=== PATIENT | female | born 1955 | race Caucasian/White ===

== ENCOUNTER 2017-07-22 15:26 | Inpatient (IN) | payer OTHER ==
[2017-07-22] MEDS ORDERED: methylPREDNISolone SOD SUCCI 125 MG/2 ML VIAL IV STA (15:33)
[2017-07-22] MEDS ORDERED: MAGNESIUM SULFATE-D5W PMX 1 GM in DEXTROSE/WATER 1 100ML.BAG IVPB STA (15:33)
[2017-07-22] MEDS ORDERED: IPRATROPIUM-ALBUTEROL 3 ML NEB INHALATION STA (15:33)
--- NOTE | 2017-07-22 15:37 | ED ---
General Adult HPI - General Chief complaint: Shortness of Breath Stated complaint: Diff Breathing Time Seen by Provider: 07/22/17 15:30 Source: patient, family, EMS, RN notes reviewed Mode of arrival: EMS Limitations: physical limitation - History of Present Illness Initial comments: Patient is a pleasant 62-year-old female presenting to the emergency department with difficulty in breathing. Symptoms have progressed over the past couple of days. Patient has had a cough with some green sputum. No fevers. Patient does have a history of similar symptoms previously as a associated with COPD. No chest pain. Patient does feel fatigued. EMS provided one treatment in route. Patient does not feel too much better. - Related Data Home Medications Medication Instructions Recorded Confirmed Phenytoin Sodium Extended 100 mg PO TID 11/29/15 07/22/17 [Dilantin] Sertraline [Zoloft] 200 mg PO HS 11/29/15 07/22/17 Albuterol Inhaler [Ventolin Hfa 2 puff INHALATION RT-Q6H PRN 07/22/17 07/22/17 Inhaler] Folic Acid 1 mg PO DAILY 07/22/17 07/22/17 QUEtiapine FUMARATE 150 mg PO HS@199907/22/17 07/22/17 busPIRone HCL 15 mg PO BID 07/22/17 07/22/17 metFORMIN HCL [Glucophage] 1,000 mg PO BID 07/22/17 07/22/17 Allergies Allergy/AdvReac Type Severity Reaction Status Date / Time No Known Allergies Allergy Verified 07/22/17 16:06 Review of Systems ROS Statement: Those systems with pertinent positive or pertinent negative responses have been documented in the HPI. ROS Other: All systems not noted in ROS Statement are negative. Constitutional: Denies: fever Respiratory: Reports: cough, dyspnea Cardiovascular: Denies: chest pain Endocrine: Reports: fatigue Gastrointestinal: Denies: abdominal pain Genitourinary: Denies: dysuria Musculoskeletal: Denies: back pain Skin: Denies: rash Neurological: Denies: weakness Past Medical History Past Medical History: COPD, Seizure Disorder History of Any Multi-Drug Resistant Organisms: None Reported Past Surgical History: Hysterectomy Past Psychological History: Anxiety, Bipolar, Depression Smoking Status: Current every day smoker Past Alcohol Use History: None Reported Past Drug Use History: None Reported General Exam Limitations: physical limitation General appearance: alert, in distress, other (Patient's answers and one word answers.) Head exam: Present: atraumatic Eye exam: Present: normal appearance, PERRL ENT exam: Present: normal oropharynx Neck exam: Present: normal inspection Respiratory exam: Present: respiratory distress, wheezes, accessory muscle use, decreased breath sounds Cardiovascular Exam: Present: tachycardia GI/Abdominal exam: Present: soft. Absent: tenderness Extremities exam: Present: normal inspection. Absent: pedal edema, calf tenderness Neurological exam: Present: alert Psychiatric exam: Present: normal affect, normal mood Skin exam: Present: normal color Course Vital Signs 07/22/17 07/22/17 07/22/17 15:31 15:55 16:17 Temperature 96.8 F L Pulse Rate 116 H 102 H 99 Respiratory 30 H Rate Blood Pressure 161/86 O2 Sat by Pulse 98 Oximetry 07/22/17 16:48 Temperature 97.4 F L Pulse Rate 94 Respiratory 20 Rate Blood Pressure 129/74 O2 Sat by Pulse 99 Oximetry EKG Findings - EKG Comments: EKG Findings:: Sinus tachycardia 1:15. NV 150. QRS 136. QT 370. QTc 511. Left axis. Left bundle branch block. No acute ST change. Medical Decision Making - Medical Decision Making Patient reevaluated and resting comfortably in bed. Patient is significantly improved with BiPAP. Patient and family were updated on results and plan. Case was discussed in detail with Dr. Levy, who will admit his patient. He does request antibiotics and consult with Dr. Richardson. - Lab Data Result diagrams: 07/22/17 15:40 07/22/17 15:40 Lab Results 07/22/17 07/22/17 07/22/17 Range/Units 15:40 15:40 15:40 WBC 7.2 (3.8-10.6) k/uL RBC 3.55 L (3.80-5.40) m/uL Hgb 10.9 L (11.4-16.0) gm/dL Hct 35.4 (34.0-46.0) % MCV 99.7 (80.0-100.0) fL MCH 30.6 (25.0-35.0) pg MCHC 30.7 L (31.0-37.0) g/dL RDW 15.4 (11.5-15.5) % Plt Count 333 (150-450) k/uL Neutrophils % 53 % Lymphocytes % 34 % Monocytes % 5 % Eosinophils % 6 % Basophils % 1 % Neutrophils # 3.8 (1.3-7.7) k/uL Lymphocytes # 2.5 (1.0-4.8) k/uL Monocytes # 0.3 (0-1.0) k/uL Eosinophils # 0.4 (0-0.7) k/uL Basophils # 0.0 (0-0.2) k/uL Hypochromasia Slight Macrocytosis Slight PT (9.0-12.0) sec INR (<1.2) APTT (22.0-30.0) sec Sodium 144 (137-145) mmol/L Potassium 5.4 H (3.5-5.1) mmol/L Chloride 112 H (98-107) mmol/L Carbon Dioxide 16 L (22-30) mmol/L Anion Gap 16 mmol/L BUN 32 H (7-17) mg/dL Creatinine 2.40 H (0.52-1.04) mg/dL Est GFR (MDRD) Af Amer 25 (>60 ml/min/1.73 sqM) Est GFR (MDRD) Non-Af 20 (>60 ml/min/1.73 sqM) Glucose 151 H (74-99) mg/dL Calcium 8.9 (8.4-10.2) mg/dL Magnesium 1.7 (1.6-2.3) mg/dL Total Bilirubin 0.4 (0.2-1.3) mg/dL AST 15 (14-36) U/L ALT 16 (9-52) U/L Alkaline Phosphatase 211 H (38-126) U/L Total Creatine Kinase 75 (30-135) U/L CK-MB (CK-2) 2.4 (0.0-2.4) ng/mL CK-MB (CK-2) Rel Index 3.2 Troponin I 0.042 H* (0.000-0.034) ng/mL NT-Pro-B Natriuret Pep pg/mL Total Protein 7.3 (6.3-8.2) g/dL Albumin 4.1 (3.5-5.0) g/dL 07/22/17 07/22/17 Range/Units 15:40 15:40 WBC (3.8-10.6) k/uL RBC (3.80-5.40) m/uL Hgb (11.4-16.0) gm/dL Hct (34.0-46.0) % MCV (80.0-100.0) fL MCH (25.0-35.0) pg MCHC (31.0-37.0) g/dL RDW (11.5-15.5) % Plt Count (150-450) k/uL Neutrophils % % Lymphocytes % % Monocytes % % Eosinophils % % Basophils % % Neutrophils # (1.3-7.7) k/uL Lymphocytes # (1.0-4.8) k/uL Monocytes # (0-1.0) k/uL Eosinophils # (0-0.7) k/uL Basophils # (0-0.2) k/uL Hypochromasia Macrocytosis PT 10.9 (9.0-12.0) sec INR 1.1 (<1.2) APTT 22.3 (22.0-30.0) sec Sodium (137-145) mmol/L Potassium (3.5-5.1) mmol/L Chloride (98-107) mmol/L Carbon Dioxide (22-30) mmol/L Anion Gap mmol/L BUN (7-17) mg/dL Creatinine (0.52-1.04) mg/dL Est GFR (MDRD) Af Amer (>60 ml/min/1.73 sqM) Est GFR (MDRD) Non-Af (>60 ml/min/1.73 sqM) Glucose (74-99) mg/dL Calcium (8.4-10.2) mg/dL Magnesium (1.6-2.3) mg/dL Total Bilirubin (0.2-1.3) mg/dL AST (14-36) U/L ALT (9-52) U/L Alkaline Phosphatase (38-126) U/L Total Creatine Kinase (30-135) U/L CK-MB (CK-2) (0.0-2.4) ng/mL CK-MB (CK-2) Rel Index Troponin I (0.000-0.034) ng/mL NT-Pro-B Natriuret Pep 4890 pg/mL Total Protein (6.3-8.2) g/dL Albumin (3.5-5.0) g/dL - Radiology Data Radiology results: image reviewed (Chest x-ray shows no acute process) Critical Care Time Critical Care Time: Yes Total Critical Care Time: 32 Disposition Clinical Impression: Acute exacerbation of chronic obstructive airways disease, Acute respiratory failure Disposition: ADMITTED IP TO THIS [facility] Condition: Serious Referrals: Adal Mari Jr, [Primary Care Provider] - 1-2 days Decision Time: 16:59
[2017-07-22] MEDS ORDERED: ALBUTEROL NEB (CONC) 2.5 MG/0.5 ML INHALATION STA (15:46)
[2017-07-22 16:02] LABS: Basophils % (A) 1 %; Eosinophils # (A) 0.4 k/uL (0-0.7); Eosinophils % (A) 6 %; HCT 35.4 % (34.0-46.0); HGB 10.9 gm/dL (11.4-16.0); Hypochromasia Slight; Lymphocytes # (A) 2.5 k/uL (1.0-4.8); Lymphocytes % (A) 34 %; MCH 30.6 pg (25.0-35.0); MCHC 30.7 g/dL (31.0-37.0); MCV 99.7 fL (80.0-100.0); Macrocytosis Slight; Mean Platelet Volume 7.2; Monocytes # (A) 0.3 k/uL (0-1.0); Monocytes % (A) 5 %; Neutrophils # (A) 3.8 k/uL (1.3-7.7); Neutrophils % (A) 53 %; Platelet Count 333 k/uL (150-450); RBC 3.55 m/uL (3.80-5.40); RDW 15.4 % (11.5-15.5); WBC 7.2 k/uL (3.8-10.6)
[2017-07-22 16:14] LABS: Albumin 4.1 g/dL (3.5-5.0); Calcium 8.9 mg/dL (8.4-10.2); Potassium 5.4 mmol/L (3.5-5.1); Total Bilirubin 0.4 mg/dL (0.2-1.3); Total Protein 7.3 g/dL (6.3-8.2)
[2017-07-22 16:26] LABS: INR 1.1 (<1.2); Partial Thromboplastin Time 22.3 sec (22.0-30.0); Prothrombin Time 10.9 sec (9.0-12.0)
[2017-07-22 16:32] LABS: Creatine Kinase MB 2.4 ng/mL (0.0-2.4)
--- NOTE | 2017-07-22 16:37 | XR ---
EXAMINATION TYPE: XR chest 1V portable DATE OF EXAM: 07/22/2017 COMPARISON: 11/29/2015 INDICATION: Dyspnea TECHNIQUE: Single frontal view of the chest is obtained. There is some right rotation present. FINDINGS: The heart size is normal. The pulmonary vasculature is normal. The lungs are clear. Mediastinal silhouette, given the rotation appears stable. There is some subtle fullness of the right hilar region. This was present previously IMPRESSION: 1. No acute pulmonary process.
[2017-07-22 16:43] LABS: Troponin I 0.042 ng/mL (0.000-0.034)
[2017-07-22] MEDS ORDERED: LEVOFLOXACIN 750MG-D5W PMX 750 MG in DEXTROSE/WATER 1 150ML.BAG IVPB STA (17:00)
[2017-07-22] MEDS ORDERED: IPRATROPIUM-ALBUTEROL 3 ML NEB INHALATION PRN (17:01)
[2017-07-22] MEDS ORDERED: SODIUM CHLORIDE 0.9% 2,250 ML IV ONE (17:49)
[2017-07-22 19:14] LABS: Glucose,Whole Blood 107 mg/dL (75-99)
[2017-07-22] MEDS: IPRATROPIUM-ALBUTEROL 3 ML NEB INHALATION SCH (19:33)
[2017-07-22] MEDS: metFORMIN 500 MG TAB PO SCH (20:49)
[2017-07-22] MEDS: busPIRone HCl 5 MG TAB PO SCH (20:57)
[2017-07-22] MEDS: QUEtiapine 50 MG TAB PO SCH (20:57)
[2017-07-22] MEDS: PHENYTOIN SODIUM EXTENDED 100 MG CAP PO SCH (20:57)
[2017-07-22] MEDS: SERTRALINE 100 MG TAB PO SCH (20:57)
[2017-07-22] MEDS ORDERED: SODIUM CHLORIDE 0.9% 250 ML IV ONE (21:53)
[2017-07-22] MEDS: SODIUM CHLORIDE 0.9% 1,000 ML IV SCH (22:09)
[2017-07-22] MEDS: ACETAMINOPHEN TAB 325 MG TAB PO PRN (22:14)
[2017-07-22] MEDS: methylPREDNISolone SOD SUCCI 125 MG/2 ML VIAL IV SCH (22:18)
[2017-07-23] MEDS: ACETAMINOPHEN TAB 325 MG TAB PO PRN ×3 (02:46→12:29)
[2017-07-23 03:38] LABS: Basophils % (A) 0 %; Eosinophils % (A) 0 %; HCT 33.6 % (34.0-46.0); HGB 9.6 gm/dL (11.4-16.0); Hypochromasia Marked; Lymphocytes # (A) 0.3 k/uL (1.0-4.8); Lymphocytes % (A) 5 %; MCH 30.5 pg (25.0-35.0); MCHC 28.6 g/dL (31.0-37.0); Macrocytosis Moderate; Mean Platelet Volume 8.3; Monocytes # (A) 0.1 k/uL (0-1.0); Monocytes % (A) 2 %; Neutrophils # (A) 5.2 k/uL (1.3-7.7); Neutrophils % (A) 93 %; Platelet Count 256 k/uL (150-450); RBC 3.15 m/uL (3.80-5.40); RDW 15.5 % (11.5-15.5); WBC 5.6 k/uL (3.8-10.6)
[2017-07-23 03:54] LABS: MCV 106.5 fL (80.0-100.0)
[2017-07-23 04:03] LABS: Calcium 8.3 mg/dL (8.4-10.2); Potassium 5.9 mmol/L (3.5-5.1)
[2017-07-23] MEDS: methylPREDNISolone SOD SUCCI 125 MG/2 ML VIAL IV SCH ×4 (06:03→23:23)
[2017-07-23 07:56] LABS: Glucose,Whole Blood 146 mg/dL (75-99)
[2017-07-23] MEDS: SODIUM CHLORIDE 0.9% 1,000 ML IV SCH ×2 (08:38→17:07)
[2017-07-23] MEDS: busPIRone HCl 5 MG TAB PO SCH ×2 (08:38→20:37)
[2017-07-23] MEDS: FOLIC ACID 1 MG TAB PO SCH (08:39)
[2017-07-23] MEDS: IPRATROPIUM-ALBUTEROL 3 ML NEB INHALATION SCH ×4 (08:40→20:08)
[2017-07-23] MEDS: PHENYTOIN SODIUM EXTENDED 100 MG CAP PO SCH ×3 (08:40→20:38)
[2017-07-23] MEDS: metFORMIN 500 MG TAB PO SCH (08:41)
[2017-07-23 11:40] LABS: Glucose,Whole Blood 104 mg/dL (75-99)
--- NOTE | 2017-07-23 12:32 | P.CNPUL ---
History of Present Illness Consult date: 07/23/17 Requesting physician: Adal Mari Jr Reason for consult: dyspnea Chief complaint: Acute episode of shortness of breath, weakness History of present illness: This is a very pleasant 62-year-old female patient who follows with Dr. Mari as her primary care physician. She has a history of diabetes mellitus, hypertension, essential tremors, gastroesophageal reflux disease, dyslipidemia. She has has a history of anxiety/depression, chronic kidney disease and seizure disorder. She is a 40 year pack per day smoking history. She follows in our office for severe oxygen dependent COPD. He is somewhat of a poor historian. She states yesterday she developed sudden onset of shortness of breath after walking to the bathroom and back. She did a difficult time catching her breath and went to sit down on the floor. EMS was called and she was brought here for the same. Her chest x-ray showed no acute pulmonary process. He was initially placed on BiPAP. He cut 5.6. Hemoglobin 9.6. Creatinine 2.10. She is seen today in consultation on the selective care unit. She is currently off the BiPAP and maintaining O2 saturations in the 90s on 4 L/m per nasal cannula. She is feeling better today as compared to yesterday. She was initiated on DuoNeb inhalations, IV Solu-Medrol and empiric antibiotics in the form of Levaquin. Review of Systems 14 point review of system was conducted. All negative other than that as mentioned in HPI. Pulmonary: Shortness of breath, dyspnea on exertion. Past Medical History Past Medical History: COPD, Diabetes Mellitus, Hyperlipidemia, Hypertension, Seizure Disorder History of Any Multi-Drug Resistant Organisms: None Reported Past Surgical History: Hysterectomy Past Anesthesia/Blood Transfusion Reactions: Unable to Obtain Past Psychological History: Anxiety, Bipolar, Depression Smoking Status: Former smoker Past Alcohol Use History: None Reported Past Drug Use History: Marijuana, Prescription Drug Abuse - Past Family History Mother Family Medical History: Diabetes Mellitus, Hypertension Father Family Medical History: Hypertension Medications and Allergies Home Medications Medication Instructions Recorded Confirmed Type Phenytoin Sodium Extended 100 mg PO TID 11/29/15 07/22/17 History [Dilantin] Sertraline [Zoloft] 200 mg PO HS 11/29/15 07/22/17 History Albuterol Inhaler [Ventolin Hfa 2 puff INHALATION RT-Q6H PRN 07/22/17 07/22/17 History Inhaler] Folic Acid 1 mg PO DAILY 07/22/17 07/22/17 History QUEtiapine FUMARATE 150 mg PO HS@199907/22/17 07/22/17 History busPIRone HCL 15 mg PO BID 07/22/17 07/22/17 History metFORMIN HCL [Glucophage] 1,000 mg PO BID 07/22/17 07/22/17 History Allergies Allergy/AdvReac Type Severity Reaction Status Date / Time No Known Allergies Allergy Verified 07/22/17 16:06 Physical Exam Vitals: Vital Signs Temp Pulse Pulse Resp BP BP Pulse Ox 07/23/17 11:42 92 07/23/17 08:50 100 07/23/17 08:42 96 07/23/17 08:00 98.1 F 95 18 133/90 94 L 07/23/17 03:51 98.3 F 102 H 16 127/72 95 07/23/17 00:00 97 F L 97 16 134/77 97 07/22/17 23:31 103 H 07/22/17 23:20 103 H 07/22/17 20:00 97 F L 91 16 131/89 98 07/22/17 18:36 97.4 F L 07/22/17 18:01 88 20 135/73 100 07/22/17 16:48 97.4 F L 94 20 129/74 99 07/22/17 16:17 99 07/22/17 15:55 102 H 07/22/17 15:31 96.8 F L 116 H 30 H 161/86 98 Intake and Output 07/22/17 07/23/17 07/23/17 22:59 06:59 14:59 Intake Total 2650 800 480 Balance 2650 800 480 Intake: IV 2650 800 0.9% NS 250 cc bolus @ 250 999mL/hr Levofloxacin 750Mg-D5w 150 Pmx 750 mg In Dextrose/ Water 1 150ml.bag @ 100 mls/hr IVPB ONCE STA Rx#: [id number] Sodium Chloride 0.9% 1, 800 000 ml @ 100 mls/hr IV . Q10H [facility] Rx#:[id number] Sodium Chloride 0.9% 2, 2250 250 ml @ 999 mls/hr IV . Q2H16M ONE Rx#:[id number] Oral 480 Other: Weight 74.843 kg 74.7 kg GENERAL EXAM: Alert, active, comfortable in no apparent distress. HEAD: Normocephalic. EYES: Normal reaction of pupils, equal size. NOSE: Clear with pink turbinates. THROAT: No erythema or exudates. NECK: No masses, no JVD. CHEST: No chest wall deformity. LUNGS: Equal air entry with no crackles, wheeze, rhonchi or dullness. Diminished. CVS: S1 and S2 normal with no audible murmur, regular rhythm. ABDOMEN: No hepatosplenomegaly, normal bowel sounds, no guarding or rigidity. SPINE: Kyphoscoliosis SKIN: No rashes CENTRAL NERVOUS SYSTEM: No focal deficits, tone is normal in all 4 extremities. EXTREMITIES: Essential tremors. There is no peripheral edema. No clubbing, no cyanosis. Peripheral pulses are intact. Results - Laboratory Findings CBC and BMP: 07/23/17 01:22 07/23/17 01:22 PT/INR, D-dimer PT 10.9 sec (9.0-12.0) 07/22/17 15:40 INR 1.1 (<1.2) 07/22/17 15:40 Abnormal lab findings: Abnormal Labs 07/22/17 07/22/17 07/22/17 15:40 15:40 15:40 RBC 3.55 L Hgb 10.9 L Hct MCV MCHC 30.7 L Lymphocytes # Potassium 5.4 H Chloride 112 H Carbon Dioxide 16 L BUN 32 H Creatinine 2.40 H Glucose 151 H POC Glucose (mg/dL) Plasma Lactic Acid Jd Calcium Alkaline Phosphatase 211 H Troponin I 0.042 H* 07/22/17 07/22/17 07/22/17 15:40 19:13 20:47 RBC Hgb Hct MCV MCHC Lymphocytes # Potassium Chloride Carbon Dioxide BUN Creatinine Glucose POC Glucose (mg/dL) 107 H Plasma Lactic Acid Jd 2.3 H* 5.0 H* Calcium Alkaline Phosphatase Troponin I 07/23/17 07/23/17 07/23/17 01:22 01:22 01:22 RBC 3.15 L Hgb 9.6 L Hct 33.6 L MCV 106.5 H D MCHC 28.6 L Lymphocytes # 0.3 L Potassium 5.9 H Chloride 114 H Carbon Dioxide 11 L BUN 32 H Creatinine 2.10 H Glucose 112 H POC Glucose (mg/dL) Plasma Lactic Acid Jd 4.7 H* Calcium 8.3 L Alkaline Phosphatase Troponin I 07/23/17 07/23/17 07/23/17 05:57 07:43 11:37 RBC Hgb Hct MCV MCHC Lymphocytes # Potassium Chloride Carbon Dioxide BUN Creatinine Glucose POC Glucose (mg/dL) 146 H 104 H Plasma Lactic Acid Jd 2.9 H* Calcium Alkaline Phosphatase Troponin I - Diagnostic Findings Chest x-ray: image reviewed (No acute pulmonary process) Assessment and Plan Assessment: Impression: #1 Acute exacerbation of severe oxygen dependent chronic obstructive pulmonary disease. No clear evidence of pneumonia. #2 Chronic and ongoing tobacco dependence. #3 History of marijuana use. #4 Diabetes mellitus. #5 History of anxiety/depression. #6 History of seizure disorder. Plan: The patient was seen and evaluated by Dr. Vásquez. Her chest x-ray and labs were reviewed. We'll continue her treatment for her COPD exacerbation including DuoNeb inhalations, add Pulmicort inhalations, continue IV Solu-Medrol. She remains on empiric antibiotics in the form of Levaquin. She is again educated regarding the importance of complete smoking cessation. A NicoDerm patch will be applied. We will increase her activity as tolerated. We'll continue to follow and make further recommendations based on her clinical status. I, the cosigning physician, performed a history & physical examination of the patient. Lungs sounds have bilateral end expiratory wheeze. Diminished.. Maintaining good O2 saturations in the 90s on 4 L/m per nasal cannula. I discussed the assessment and plan of care with my nurse practitioner, Kirstie Anne. I attest to the above note as dictated by her. Time with Patient: Greater than 30
[2017-07-23 16:40] LABS: Glucose,Whole Blood 116 mg/dL (75-99)
[2017-07-23] MEDS: NICOTINE 14MG/24HR PATCH TRANSDERM SCH (17:01)
[2017-07-23] MEDS: BUTALB/APAP/CAFF 50-325-40MG TAB PO PRN ×2 (17:41→23:23)
[2017-07-23 17:56] LABS: Hemoglobin A1C 4.9 % (4.0-6.0)
--- NOTE | 2017-07-23 19:00 | P.HPIM ---
History of Present Illness H&P Date: 07/22/17 Chief Complaint: Dyspnea, weakness shortness of breath There is a pleasant 62-year-old female with chronic obstructive pulmonary disease O2 dependent steroid-dependent also has hypertension essential tremors gastric esophageal reflux disease and dyslipidemia. Has a history of anxiety depression chronic kidney disease seizure disorder. Patient has a 40 year pack a day smoking history. Patient states that on the she developed severe shortness of breath that progressed significantly her chest x-ray demonstrated no acute pulmonary process patient was initially placed on BiPAP the ER. Patient is was on BiPAP throughout the night. He was placed on Levaquin IV Solu -Medrol and DuoNeb Review of Systems Constitutional: Reports as per HPI, Reports weakness Ears, nose, mouth and throat: Reports post-nasal drip Cardiovascular: Reports dyspnea on exertion Respiratory: Reports congestion, Reports cough, Reports dyspnea, Reports home oxygen, Reports wheezing Gastrointestinal: Reports as per HPI, Reports excessive gas, Reports heartburn Genitourinary: Reports as per HPI Menstruation: Reports postmenopausal Musculoskeletal: Reports low back pain, Reports morning stiffness Psychiatric: Reports anxiety, Reports depression Endocrine: Reports high blood sugars Past Medical History Past Medical History: COPD, Diabetes Mellitus, Hyperlipidemia, Hypertension, Seizure Disorder History of Any Multi-Drug Resistant Organisms: None Reported Past Surgical History: Hysterectomy Past Anesthesia/Blood Transfusion Reactions: Unable to Obtain Past Psychological History: Anxiety, Bipolar, Depression Smoking Status: Former smoker Past Alcohol Use History: None Reported Past Drug Use History: Marijuana, Prescription Drug Abuse - Past Family History Mother Family Medical History: Diabetes Mellitus, Hypertension Father Family Medical History: Hypertension Medications and Allergies Home Medications Medication Instructions Recorded Confirmed Type Phenytoin Sodium Extended 100 mg PO TID 11/29/15 07/22/17 History [Dilantin] Sertraline [Zoloft] 200 mg PO HS 11/29/15 07/22/17 History Albuterol Inhaler [Ventolin Hfa 2 puff INHALATION RT-Q6H PRN 07/22/17 07/22/17 History Inhaler] Folic Acid 1 mg PO DAILY 07/22/17 07/22/17 History QUEtiapine FUMARATE 150 mg PO HS@199907/22/17 07/22/17 History busPIRone HCL 15 mg PO BID 07/22/17 07/22/17 History metFORMIN HCL [Glucophage] 1,000 mg PO BID 07/22/17 07/22/17 History Primidone [Mysoline] 50 mg PO BID 07/23/17 07/23/17 History Allergies Allergy/AdvReac Type Severity Reaction Status Date / Time No Known Allergies Allergy Verified 07/22/17 16:06 Physical Exam Osteopathic Statement: *. No significant issues noted on an osteopathic structural exam other than those noted in the History and Physical/Consult. Vitals: Vital Signs Temp Pulse Pulse Resp BP Pulse Ox 07/23/17 15:15 96 07/23/17 15:14 98 20 07/23/17 15:11 98.0 F 98 20 159/89 99 07/23/17 15:10 93 07/23/17 12:00 98.7 F 96 101 H 18 148/88 100 07/23/17 11:42 92 07/23/17 08:50 100 07/23/17 08:42 96 07/23/17 08:00 98.1 F 95 18 133/90 94 L 07/23/17 03:51 98.3 F 102 H 16 127/72 95 07/23/17 00:00 97 F L 97 16 134/77 97 07/22/17 23:31 103 H 07/22/17 23:20 103 H 07/22/17 20:00 97 F L 91 16 131/89 98 Intake and Output 07/23/17 07/23/17 07/23/17 06:59 14:59 22:59 Intake Total 800 600 Output Total 400 Balance 800 200 Intake: IV 800 Sodium Chloride 0.9% 1, 800 000 ml @ 100 mls/hr IV . Q10H [facility] Rx#:[id number] Oral 600 Output: Urine 400 Other: # Voids 2 # Bowel Movements 0 Weight 74.7 kg General: [Patient awake, alert and oriented times 3. Patient in no acute distress.] HEENT: [PERRL. EOMI. No pharyngeal erythema or exudate.] Neck: [No adenopathy.] Cardiac: [Heart regular in rate and rhythm. No S3. No S4. No clicks, rubs. No murmur.] Lungs: Rhonchi wheezes and poor gas exchange Abdomen: [No mass. No organomegaly. Bowel sounds presnt and normoactive in all 4 quadrants.] Extremes: Extreme kyphosis secondary to osteoporosis : [] Musculoskeletal: [No joint erythema, edema or tenderness.] Skin: [No rash.] Neurologic: [No lateralizing deficits. CN II - XII grossly intact.] Lymphatic: [No adenopathy.] Results CBC & Chem 7: 07/23/17 01:22 07/23/17 01:22 Labs: Abnormal Lab Results - Last 24 Hours (Table) 07/22/17 07/22/17 07/23/17 Range/Units 19:13 20:47 01:22 RBC 3.15 L (3.80-5.40) m/uL Hgb 9.6 L (11.4-16.0) gm/dL Hct 33.6 L (34.0-46.0) % MCV 106.5 H D (80.0-100.0) fL MCHC 28.6 L (31.0-37.0) g/dL Lymphocytes # 0.3 L (1.0-4.8) k/uL Potassium (3.5-5.1) mmol/L Chloride (98-107) mmol/L Carbon Dioxide (22-30) mmol/L BUN (7-17) mg/dL Creatinine (0.52-1.04) mg/dL Glucose (74-99) mg/dL POC Glucose (mg/dL) 107 H (75-99) mg/dL Plasma Lactic Acid Jd 5.0 H* (0.7-2.0) mmol/L Calcium (8.4-10.2) mg/dL 07/23/17 07/23/17 07/23/17 Range/Units 01:22 01:22 05:57 RBC (3.80-5.40) m/uL Hgb (11.4-16.0) gm/dL Hct (34.0-46.0) % MCV (80.0-100.0) fL MCHC (31.0-37.0) g/dL Lymphocytes # (1.0-4.8) k/uL Potassium 5.9 H (3.5-5.1) mmol/L Chloride 114 H (98-107) mmol/L Carbon Dioxide 11 L (22-30) mmol/L BUN 32 H (7-17) mg/dL Creatinine 2.10 H (0.52-1.04) mg/dL Glucose 112 H (74-99) mg/dL POC Glucose (mg/dL) (75-99) mg/dL Plasma Lactic Acid Jd 4.7 H* 2.9 H* (0.7-2.0) mmol/L Calcium 8.3 L (8.4-10.2) mg/dL 07/23/17 07/23/17 07/23/17 Range/Units 07:43 11:37 16:39 RBC (3.80-5.40) m/uL Hgb (11.4-16.0) gm/dL Hct (34.0-46.0) % MCV (80.0-100.0) fL MCHC (31.0-37.0) g/dL Lymphocytes # (1.0-4.8) k/uL Potassium (3.5-5.1) mmol/L Chloride (98-107) mmol/L Carbon Dioxide (22-30) mmol/L BUN (7-17) mg/dL Creatinine (0.52-1.04) mg/dL Glucose (74-99) mg/dL POC Glucose (mg/dL) 146 H 104 H 116 H (75-99) mg/dL Plasma Lactic Acid Jd (0.7-2.0) mmol/L Calcium (8.4-10.2) mg/dL Thrombosis Risk Factor Assmnt - Choose All That Apply Any of the Below Risk Factors Present?: Yes Each Factor Represents 1 point: Abnormal pulmonary function (COPD) Each Risk Factor Represents 2 Points: Age 61-74 years Thrombosis Risk Factor Assessment Total Risk Factor Score: 3 Thrombosis Risk Factor Assessment Level: Moderate Risk Assessment and Plan (1) Acute exacerbation of chronic obstructive airways disease Narrative/Plan: O2-dependent steroid-dependent chronic obstructive pulmonary disease Patient uses bronchodilators as well and was recently started on long-acting bronchodilator and uses O2 per nasal cannula And had is chronically using steroids Current Visit: Yes Status: Acute Code(s): J44.1 - CHRONIC OBSTRUCTIVE PULMONARY DISEASE W (ACUTE) EXACERBATION SNOMED Code(s): 155094076 (2) Acute respiratory failure Narrative/Plan: Patient developed severe dyspnea approximately 2 days ago and just became progressively worse presented to the emergency room at which time the patient was admitted placed on Levaquin and DuoNeb and Solu-Medrol Current Visit: Yes Status: Acute Code(s): J96.00 - ACUTE RESPIRATORY FAILURE , UNSP W HYPOXIA OR HYPERCAPNIA SNOMED Code(s): 34954655 (3) Altered mental status Narrative/Plan: Due to hypoxia and Current Visit: No Status: Acute Code(s): R41.82 - ALTERED MENTAL STATUS, UNSPECIFIED SNOMED Code(s): 631627820 (4) Dehydration Narrative/Plan: Dehydration performed with IV fluids patient also had an elevated lactic acidosis and was well hydrated in the emergency room and subsequently in the the ICU stepdown Current Visit: No Status: Acute Code(s): E86.0 - DEHYDRATION SNOMED Code(s ): 75694066 (5) Renal insufficiency Narrative/Plan: Consult nephrology patient was well hydrated Current Visit: No Status: Acute Code(s): N28.9 - DISORDER OF KIDNEY AND URETER, UNSPECIFIED SNOMED Code(s): 873646241 Time with Patient: Greater than 30
[2017-07-23] MEDS: BUDESONIDE 1 MG/2 ML NEBU INHALATION SCH (20:08)
[2017-07-23 20:27] LABS: Glucose,Whole Blood 177 mg/dL (75-99)
[2017-07-23] MEDS: LEVOFLOXACIN 750 MG TAB PO SCH (20:37)
[2017-07-23] MEDS: QUEtiapine 50 MG TAB PO SCH (20:37)
[2017-07-23] MEDS: SERTRALINE 100 MG TAB PO SCH (20:38)
[2017-07-23] MEDS: PRIMIDONE 50 MG TAB PO SCH (20:39)
[2017-07-23] MEDS ORDERED: LEVOFLOXACIN 750MG-D5W PMX 750 MG in DEXTROSE/WATER 1 150ML.BAG IVPB SCH (21:00)
[2017-07-24] MEDS: SODIUM CHLORIDE 0.9% 1,000 ML IV SCH ×3 (04:25→21:04)
[2017-07-24] MEDS: BUTALB/APAP/CAFF 50-325-40MG TAB PO PRN ×4 (05:31→21:00)
[2017-07-24 05:54] LABS: Glucose,Whole Blood 116 mg/dL (75-99)
[2017-07-24] MEDS: INSULIN ASPART 100 UNIT/ML 1 ML 10 ML VIAL SQ SCH ×4 (06:00→21:09)
[2017-07-24] MEDS: methylPREDNISolone SOD SUCCI 125 MG/2 ML VIAL IV SCH ×3 (06:13→17:28)
[2017-07-24 06:28] LABS: Basophils % (A) 0 %; Eosinophils % (A) 0 %; HCT 27.1 % (34.0-46.0); HGB 8.6 gm/dL (11.4-16.0); Hypochromasia Slight; Lymphocytes # (A) 0.6 k/uL (1.0-4.8); Lymphocytes % (A) 13 %; MCH 30.9 pg (25.0-35.0); MCHC 31.6 g/dL (31.0-37.0); Mean Platelet Volume 7.9; Monocytes # (A) 0.2 k/uL (0-1.0); Monocytes % (A) 5 %; Neutrophils # (A) 3.5 k/uL (1.3-7.7); Neutrophils % (A) 81 %; Platelet Count 231 k/uL (150-450); RBC 2.77 m/uL (3.80-5.40); RDW 15.4 % (11.5-15.5); WBC 4.3 k/uL (3.8-10.6)
[2017-07-24 06:40] LABS: MCV 97.9 fL (80.0-100.0)
[2017-07-24 06:44] LABS: Calcium 8.3 mg/dL (8.4-10.2); Potassium 5.1 mmol/L (3.5-5.1)
[2017-07-24] MEDS: BUDESONIDE 1 MG/2 ML NEBU INHALATION SCH ×2 (07:36→20:03)
[2017-07-24] MEDS: IPRATROPIUM-ALBUTEROL 3 ML NEB INHALATION SCH ×4 (07:36→20:03)
[2017-07-24] MEDS: NICOTINE 14MG/24HR PATCH TRANSDERM SCH (08:41)
[2017-07-24] MEDS: PRIMIDONE 50 MG TAB PO SCH ×2 (08:42→21:01)
[2017-07-24] MEDS: PHENYTOIN SODIUM EXTENDED 100 MG CAP PO SCH ×3 (08:42→21:01)
[2017-07-24] MEDS: FOLIC ACID 1 MG TAB PO SCH (08:42)
[2017-07-24] MEDS: busPIRone HCl 5 MG TAB PO SCH ×2 (08:42→21:00)
[2017-07-24 12:02] LABS: Glucose,Whole Blood 88 mg/dL (75-99)
--- NOTE | 2017-07-24 13:03 | P.PN ---
Subjective Progress Note Date: 07/24/17 Principal diagnosis: Acute exacerbation of severe oxygen-dependent chronic obstructive pulmonary disease This is a very pleasant 62-year-old female patient who follows with Dr. Mari as her primary care physician. She has a history of diabetes mellitus, hypertension, essential tremors, gastroesophageal reflux disease, dyslipidemia. She has has a history of anxiety/depression, chronic kidney disease and seizure disorder. She is a 40 year pack per day smoking history. She follows in our office for severe oxygen dependent COPD. He is somewhat of a poor historian. She states yesterday she developed sudden onset of shortness of breath after walking to the bathroom and back. She did a difficult time catching her breath and went to sit down on the floor. EMS was called and she was brought here for the same. Her chest x-ray showed no acute pulmonary process. He was initially placed on BiPAP. He cut 5.6. Hemoglobin 9.6. Creatinine 2.10. She is seen today in consultation on the selective care unit. She is currently off the BiPAP and maintaining O2 saturations in the 90s on 4 L/m per nasal cannula. She is feeling better today as compared to yesterday. She was initiated on DuoNeb inhalations, IV Solu-Medrol and empiric antibiotics in the form of Levaquin. On 07/24/2017 patient seen in follow-up. Her lung sounds are diminished, no rhonchi or wheezes noted. However patient remains very dyspneic with any exertion, she states it's a struggle for her to walk to the bathroom without significant shortness of breath. She remains on 4 L per nasal cannula with O2 sat 97%. She is afebrile, he was dynamically stable. Today's lab work shows that with VC of 4.3, hemoglobin is 8.6, sodium is 141, potassium is 5.1, chloride is 114, CO2 is 15, BUN is 36, creatinine is 2.13. Blood culture is negative and sputum culture is pending. Patient remains on Levaquin, IV Solu- Medrol, nebulized treatments. Not ready for discharge yet. Objective - Vital Signs Vital signs: Vital Signs Temp 96.7 F L 07/24/17 11:44 Pulse 99 07/24/17 11:44 Resp 20 07/24/17 11:44 BP 168/73 07/24/17 11:44 Pulse Ox 97 07/24/17 11:44 Intake & Output 07/23/17 07/24/17 07/24/17 18:59 06:59 18:59 Intake Total 840 1700 618 Output Total 400 Balance 440 1700 618 Weight 75.6 kg Intake: IV 1600 500 0.9% NS 250 cc bolus @ 800 999mL/hr Sodium Chloride 0.9% 1, 800 500 000 ml @ 100 mls/hr IV . Q10H BHAVIK Rx#:[id number] Oral 840 100 118 Output: Urine 400 Other: # Voids 2 1 # Bowel Movements 0 - Exam GENERAL EXAM: Alert, active, comfortable in no apparent distress. HEAD: Normocephalic. EYES: Normal reaction of pupils, equal size. NOSE: Clear with pink turbinates. THROAT: No erythema or exudates. NECK: No masses, no JVD. CHEST: No chest wall deformity. LUNGS: Equal air entry with no crackles, wheeze, rhonchi or dullness. Diminished. CVS: S1 and S2 normal with no audible murmur, regular rhythm. ABDOMEN: No hepatosplenomegaly, normal bowel sounds, no guarding or rigidity. SPINE: Kyphoscoliosis SKIN: No rashes CENTRAL NERVOUS SYSTEM: No focal deficits, tone is normal in all 4 extremities. EXTREMITIES: Essential tremors. There is no peripheral edema. No clubbing, no cyanosis. Peripheral pulses are intact. - Labs CBC & Chem 7: 07/24/17 05:47 07/24/17 05:47 Labs: Abnormal Lab Results - Last 24 Hours (Table) 07/23/17 07/23/17 07/23/17 Range/Units 16:39 19:17 20:25 RBC (3.80-5.40) m/uL Hgb (11.4-16.0) gm/dL Hct (34.0-46.0) % Lymphocytes # (1.0-4.8) k/uL Chloride (98-107) mmol/L Carbon Dioxide (22-30) mmol/L BUN (7-17) mg/dL Creatinine (0.52-1.04) mg/dL Glucose (74-99) mg/dL POC Glucose (mg/dL) 116 H 177 H (75-99) mg/dL Plasma Lactic Acid Jd 4.0 H* (0.7-2.0) mmol/L Calcium (8.4-10.2) mg/dL 07/23/17 07/24/17 07/24/17 Range/Units 23:17 05:47 05:47 RBC 2.77 L (3.80-5.40) m/uL Hgb 8.6 L (11.4-16.0) gm/dL Hct 27.1 L (34.0-46.0) % Lymphocytes # 0.6 L (1.0-4.8) k/uL Chloride 114 H (98-107) mmol/L Carbon Dioxide 15 L (22-30) mmol/L BUN 36 H (7-17) mg/dL Creatinine 2.13 H (0.52-1.04) mg/dL Glucose 102 H (74-99) mg/dL POC Glucose (mg/dL) (75-99) mg/dL Plasma Lactic Acid Jd 2.3 H* (0.7-2.0) mmol/L Calcium 8.3 L (8.4-10.2) mg/dL 07/24/17 Range/Units 05:53 RBC (3.80-5.40) m/uL Hgb (11.4-16.0) gm/dL Hct (34.0-46.0) % Lymphocytes # (1.0-4.8) k/uL Chloride (98-107) mmol/L Carbon Dioxide (22-30) mmol/L BUN (7-17) mg/dL Creatinine (0.52-1.04) mg/dL Glucose (74-99) mg/dL POC Glucose (mg/dL) 116 H (75-99) mg/dL Plasma Lactic Acid Jd (0.7-2.0) mmol/L Calcium (8.4-10.2) mg/dL Microbiology - Last 24 Hours (Table) 07/23/17 06:10 Gram Stain - Preliminary Sputum 07/22/17 15:40 Blood Culture - Preliminary Blood No Growth after 24 hours Assessment and Plan Plan: Assessment: #1 Acute exacerbation of severe oxygen dependent chronic obstructive pulmonary disease. No clear evidence of pneumonia. #2 Chronic and ongoing tobacco dependence. #3 History of marijuana use. #4 Diabetes mellitus. #5 History of anxiety/depression. #6 History of seizure disorder. Plan: Continue current plan of treatment, continue Levaquin, IV steroids, nebulized treatments, patient remains significantly dyspneic with any type of exertion, not ready for discharge yet. We'll continue to follow with you I performed a history & physical examination of the patient and discussed their management with my nurse practitioner, Carol Chatman. I reviewed the nurse practitioner's note and agree with the documented findings and plan of care. Lung sounds are very diminished, no rhonchi or wheezing noted. The findings and the impression was discussed with the patient. I attest to the documentation by the nurse practitioner. Time with Patient: Less than 30
[2017-07-24] MEDS ORDERED: ALPRAZolam 0.25 MG TAB PO PRN (14:14)
[2017-07-24] MEDS ORDERED: ALPRAZolam 0.25 MG TAB PO STA (14:54)
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
[2017-07-24 17:01] LABS: Glucose,Whole Blood 117 mg/dL (75-99)
[2017-07-24] MEDS: HEPARIN SODIUM,PORCINE 5,000 UNIT/ML 1 ML VIAL SQ SCH (20:59)
[2017-07-24] MEDS: SERTRALINE 100 MG TAB PO SCH (21:00)
[2017-07-24] MEDS: QUEtiapine 50 MG TAB PO SCH (21:00)
[2017-07-24 21:10] LABS: Glucose,Whole Blood 138 mg/dL (75-99)
[2017-07-25] MEDS: methylPREDNISolone SOD SUCCI 125 MG/2 ML VIAL IV SCH ×5 (00:22→23:15)
[2017-07-25 05:45] LABS: Basophils % (A) 0 %; Eosinophils % (A) 1 %; HCT 28.8 % (34.0-46.0); HGB 9.1 gm/dL (11.4-16.0); Hypochromasia Slight; Lymphocytes # (A) 0.8 k/uL (1.0-4.8); Lymphocytes % (A) 15 %; MCH 30.9 pg (25.0-35.0); MCHC 31.6 g/dL (31.0-37.0); MCV 97.7 fL (80.0-100.0); Mean Platelet Volume 7.4; Monocytes # (A) 0.3 k/uL (0-1.0); Monocytes % (A) 5 %; Neutrophils # (A) 4.2 k/uL (1.3-7.7); Neutrophils % (A) 79 %; Platelet Count 299 k/uL (150-450); RBC 2.95 m/uL (3.80-5.40); RDW 15.5 % (11.5-15.5); WBC 5.3 k/uL (3.8-10.6)
[2017-07-25 06:16] LABS: Albumin 3.3 g/dL (3.5-5.0); Calcium 8.7 mg/dL (8.4-10.2); Potassium 4.8 mmol/L (3.5-5.1); Total Bilirubin 0.2 mg/dL (0.2-1.3)
[2017-07-25] MEDS: INSULIN ASPART 100 UNIT/ML 1 ML 10 ML VIAL SQ SCH ×4 (06:27→21:27)
[2017-07-25 06:29] LABS: Glucose,Whole Blood 153 mg/dL (75-99)
[2017-07-25] MEDS: PANTOPRAZOLE 40 MG TABLET PO SCH (06:54)
[2017-07-25] MEDS: IPRATROPIUM-ALBUTEROL 3 ML NEB INHALATION SCH ×4 (08:12→20:22)
[2017-07-25] MEDS: BUDESONIDE 1 MG/2 ML NEBU INHALATION SCH ×2 (08:12→20:22)
[2017-07-25] MEDS: busPIRone HCl 5 MG TAB PO SCH ×2 (08:33→20:53)
[2017-07-25] MEDS: FOLIC ACID 1 MG TAB PO SCH (08:34)
[2017-07-25] MEDS: HEPARIN SODIUM,PORCINE 5,000 UNIT/ML 1 ML VIAL SQ SCH ×2 (08:34→20:53)
[2017-07-25] MEDS: PHENYTOIN SODIUM EXTENDED 100 MG CAP PO SCH ×3 (08:34→20:57)
[2017-07-25] MEDS: SODIUM CHLORIDE 0.9% 1,000 ML IV SCH ×2 (08:35→21:28)
[2017-07-25] MEDS: PRIMIDONE 50 MG TAB PO SCH ×2 (08:35→20:54)
[2017-07-25] MEDS: BUTALB/APAP/CAFF 50-325-40MG TAB PO PRN ×2 (08:40→17:32)
--- NOTE | 2017-07-25 12:01 | P.PN ---
Subjective Progress Note Date: 07/25/17 Principal diagnosis: Acute exacerbation of severe oxygen dependent chronic obstructive pulmonary disease This is a very pleasant 62-year-old female patient who follows with Dr. Mari as her primary care physician. She has a history of diabetes mellitus, hypertension, essential tremors, gastroesophageal reflux disease, dyslipidemia. She has has a history of anxiety/depression, chronic kidney disease and seizure disorder. She is a 40 year pack per day smoking history. She follows in our office for severe oxygen dependent COPD. He is somewhat of a poor historian. She states yesterday she developed sudden onset of shortness of breath after walking to the bathroom and back. She did a difficult time catching her breath and went to sit down on the floor. EMS was called and she was brought here for the same. Her chest x-ray showed no acute pulmonary process. He was initially placed on BiPAP. He cut 5.6. Hemoglobin 9.6. Creatinine 2.10. She is seen today in consultation on the selective care unit. She is currently off the BiPAP and maintaining O2 saturations in the 90s on 4 L/m per nasal cannula. She is feeling better today as compared to yesterday. She was initiated on DuoNeb inhalations, IV Solu-Medrol and empiric antibiotics in the form of Levaquin. On 07/24/2017 patient seen in follow-up. Her lung sounds are diminished, no rhonchi or wheezes noted. However patient remains very dyspneic with any exertion, she states it's a struggle for her to walk to the bathroom without significant shortness of breath. She remains on 4 L per nasal cannula with O2 sat 97%. She is afebrile, he was dynamically stable. Today's lab work shows that with VC of 4.3, hemoglobin is 8.6, sodium is 141, potassium is 5.1, chloride is 114, CO2 is 15, BUN is 36, creatinine is 2.13. Blood culture is negative and sputum culture is pending. Patient remains on Levaquin, IV Solu- Medrol, nebulized treatments. Not ready for discharge yet. Patient is seen again today 06/27/2017 in follow-up on the selective care unit. She is currently awake and alert in no acute distress. She is breathing easier today as compared to yesterday. She remains on 4 L/m per nasal cannula. Maintain O2 saturations in the mid 90s. She's been afebrile. Hemodynamically stable. White count 5.3. Hemoglobin 9.1. Creatinine 2.27. Objective - Vital Signs Vital signs: Vital Signs Temp 97.9 F 07/25/17 08:00 Pulse 92 07/25/17 11:38 Resp 18 07/25/17 08:00 BP 177/80 07/25/17 08:00 Pulse Ox 96 07/25/17 08:00 Intake & Output 07/24/17 07/25/17 07/25/17 18:59 06:59 18:59 Intake Total 1078 800 237 Output Total 300 Balance 1078 500 237 Weight 75.7 kg Intake: IV 500 800 Sodium Chloride 0.9% 1, 500 800 000 ml @ 100 mls/hr IV . Q10H [facility] Rx#:[id number] Oral 578 237 Output: Urine 300 Other: # Voids 1 - Exam GENERAL EXAM: Alert, comfortable in no apparent distress. HEAD: Normocephalic. EYES: Normal reaction of pupils, equal size. NOSE: Clear with pink turbinates. THROAT: No erythema or exudates. NECK: No masses, no JVD. CHEST: No chest wall deformity. LUNGS: Equal air entry with bilateral end expiratory wheeze. Diminished. CVS: S1 and S2 normal with no audible murmur, regular rhythm. ABDOMEN: No hepatosplenomegaly, normal bowel sounds, no guarding or rigidity. SPINE: No scoliosis or deformity SKIN: No rashes CENTRAL NERVOUS SYSTEM: No focal deficits, tone is normal in all 4 extremities. EXTREMITIES: There is no peripheral edema. No clubbing, no cyanosis. Peripheral pulses are intact. - Labs CBC & Chem 7: 07/25/17 05:31 07/25/17 05:31 Labs: Abnormal Lab Results - Last 24 Hours (Table) 07/24/17 07/24/17 07/25/17 Range/Units 16:43 21:08 05:31 RBC 2.95 L (3.80-5.40) m/uL Hgb 9.1 L (11.4-16.0) gm/dL Hct 28.8 L (34.0-46.0) % Lymphocytes # 0.8 L (1.0-4.8) k/uL Chloride (98-107) mmol/L Carbon Dioxide (22-30) mmol/L BUN (7-17) mg/dL Creatinine (0.52-1.04) mg/dL Glucose (74-99) mg/dL POC Glucose (mg/dL) 117 H 138 H (75-99) mg/dL Alkaline Phosphatase (38-126) U/L Total Protein (6.3-8.2) g/dL Albumin (3.5-5.0) g/dL 07/25/17 07/25/17 Range/Units 05:31 06:08 RBC (3.80-5.40) m/uL Hgb (11.4-16.0) gm/dL Hct (34.0-46.0) % Lymphocytes # (1.0-4.8) k/uL Chloride 114 H (98-107) mmol/L Carbon Dioxide 19 L (22-30) mmol/L BUN 36 H (7-17) mg/dL Creatinine 2.27 H (0.52-1.04) mg/dL Glucose 109 H (74-99) mg/dL POC Glucose (mg/dL) 153 H (75-99) mg/dL Alkaline Phosphatase 153 H (38-126) U/L Total Protein 6.0 L (6.3-8.2) g/dL Albumin 3.3 L (3.5-5.0) g/dL Microbiology - Last 24 Hours (Table) 07/23/17 06:10 Gram Stain - Final Sputum Sputum Culture - Final Denise albicans 07/22/17 15:40 Blood Culture - Preliminary Blood No Growth after 48 hours Assessment and Plan Assessment: Impression: #1 Acute exacerbation of severe oxygen dependent chronic obstructive pulmonary disease. No clear evidence of pneumonia. #2 Chronic and ongoing tobacco dependence. #3 History of marijuana use. #4 Diabetes mellitus. #5 History of anxiety/depression. #6 History of seizure disorder. Plan: The patient was seen and evaluated by Dr. Vásquez. We'll continue her treatment for her COPD exacerbation including DuoNeb inhalations,Pulmicort inhalations, continue IV Solu-Medrol. She remains on empiric antibiotics in the form of Levaquin. She is again educated regarding the importance of complete smoking cessation. We will increase her activity as tolerated. We'll continue to follow and make further recommendations based on her clinical status. I, the cosigning physician, performed a history & physical examination of the patient. Lungs sounds have bilateral end expiratory wheeze. Diminished.. Maintaining good O2 saturations in the 90s on 4 L/m per nasal cannula. I discussed the assessment and plan of care with my nurse practitioner, Kirstie Anne. I attest to the above note as dictated by her.
[2017-07-25 12:18] LABS: Glucose,Whole Blood 116 mg/dL (75-99)
--- NOTE | 2017-07-25 13:24 | P.PN ---
Subjective Progress Note Date: 07/25/17 07/23/2017-PER DR. HARO There is a pleasant 62-year-old female with chronic obstructive pulmonary disease O2 dependent steroid-dependent also has hypertension essential tremors gastric esophageal reflux disease and dyslipidemia. Has a history of anxiety depression chronic kidney disease seizure disorder. Patient has a 40 year pack a day smoking history. Patient states that on the she developed severe shortness of breath that progressed significantly her chest x-ray demonstrated no acute pulmonary process patient was initially placed on BiPAP the ER. Patient is was on BiPAP throughout the night. He was placed on Levaquin IV Solu -Medrol and DuoNeb 07/24/2017 Patient evaluated at the bedside with Dr. Haro. Patient remains on 4L NC with oxygen saturations greater than 92%. Blood pressure is elevated at 168/73. However previous readings reveal SBP in the 130s. Patient remains on IV steroids : 60mg Q6 hours. Pulmonary is on consult. Patient states her family friend today and she is very upset and anxious. Patient requesting anti-anxiety medication. 07/25/2017 Patient seen and examined at the bedside on rounds with Dr. Haro. Patient is awake and alert. States her shortness of breath is improving. Denies chest pain or pressure. Appetite is good. Denies nausea or vomiting. Patient states she slept well last night. Remains on 4L NC with oxygen saturations greater than 92% . Pulmonary is on consult. Patient remains on solumedral 60mg IV q 6. Objective - Vital Signs Vital signs: Vital Signs Temp 97.9 F 07/25/17 08:00 Pulse 92 07/25/17 11:38 Resp 18 07/25/17 08:00 BP 177/80 07/25/17 08:00 Pulse Ox 96 07/25/17 08:00 Intake & Output 07/24/17 07/25/17 07/25/17 18:59 06:59 18:59 Intake Total 1078 800 237 Output Total 300 Balance 1078 500 237 Weight 75.7 kg Intake: IV 500 800 Sodium Chloride 0.9% 1, 500 800 000 ml @ 100 mls/hr IV . Q10H [facility]IK Rx#:[id number] Oral 578 237 Output: Urine 300 Other: # Voids 1 - Exam GENERAL: This is a 62-year-old female in no apparent distress at the time of examination. Pleasant and cooperative. HEENT: Head is atraumatic, normocephalic. Pupils are equal, round, and reactive to light. Sclerae anicteric. Conjunctivae are clear. Mucus membranes of the mouth are moist. Neck is supple. RESPIRATORY: Expiratory wheezing and scattered rhonchi noted, but improved since yesterday. No use of accessory muscles. Patient maintaining oxygen saturation greater than 92% on 4L. No chest wall tenderness is noted on palpation or with deep breathing. CARDIOVASCULAR: Regular rate and rhythm. S1 and S2 noted. No JVD noted. No S3 or S4 noted. GASTROINTESTINAL: No distention noted. Abdomen soft and round. Normal active bowel sounds auscultated x 4 quadrants. No pain or tenderness noted upon palpation. INTEGUMENTARY: No cyanosis. No jaundice. No rashes noted. No cellulitis noted. EXTREMITIES: 2+ peripheral pulses. No evidence of peripheral edema. No calf tenderness noted. NEUROLOGIC: Cranial nerves II-XII intact. PSYCHIATRIC: Awake, alert, and oriented X 3. Appropriate affect. Intact judgement and insight. - Labs CBC & Chem 7: 07/25/17 05:31 07/25/17 05:31 Labs: Abnormal Lab Results - Last 24 Hours (Table) 07/24/17 07/24/17 07/25/17 Range/Units 16:43 21:08 05:31 RBC 2.95 L (3.80-5.40) m/uL Hgb 9.1 L (11.4-16.0) gm/dL Hct 28.8 L (34.0-46.0) % Lymphocytes # 0.8 L (1.0-4.8) k/uL Chloride (98-107) mmol/L Carbon Dioxide (22-30) mmol/L BUN (7-17) mg/dL Creatinine (0.52-1.04) mg/dL Glucose (74-99) mg/dL POC Glucose (mg/dL) 117 H 138 H (75-99) mg/dL Alkaline Phosphatase (38-126) U/L Total Protein (6.3-8.2) g/dL Albumin (3.5-5.0) g/dL 07/25/17 07/25/17 07/25/17 Range/Units 05:31 06:08 12:12 RBC (3.80-5.40) m/uL Hgb (11.4-16.0) gm/dL Hct (34.0-46.0) % Lymphocytes # (1.0-4.8) k/uL Chloride 114 H (98-107) mmol/L Carbon Dioxide 19 L (22-30) mmol/L BUN 36 H (7-17) mg/dL Creatinine 2.27 H (0.52-1.04) mg/dL Glucose 109 H (74-99) mg/dL POC Glucose (mg/dL) 153 H 116 H (75-99) mg/dL Alkaline Phosphatase 153 H (38-126) U/L Total Protein 6.0 L (6.3-8.2) g/dL Albumin 3.3 L (3.5-5.0) g/dL Microbiology - Last 24 Hours (Table) 07/23/17 06:10 Gram Stain - Final Sputum Sputum Culture - Final Denise albicans 07/22/17 15:40 Blood Culture - Preliminary Blood No Growth after 48 hours Assessment and Plan Plan: ASSESSMENT: Acute exacerbation of severe oxygen-dependent chronic obstructive pulmonary disease Altered mental status, encephalopathy due to hypoxia, improving Dehydration with elevated lactic acid, improving with IV hydration Acute on chronic kidney disease, stage IV, GFR 23 Mild hyperkalemia, potassium 5.1, resolved Essential hypertension Nicotine dependence, in remission, patient states she has not smoked in almost a year Diabetes mellitus, type II Anxiety, unspecified Depression, unspecified Seizure disorder PLAN: Patient may transfer to general medical floor Will consult nephrology as patients creatinine remains elevated Obtain urinalysis Discontinue metformin secondary to kidney function Pulmonary on consult. Appreciate recommendations and input Continue IV steroids. Taper per pulmonary. Novolog sliding scale AC/HS secondary to steroids Continue Levaquin 750mg Q48 hours Home meds as appropriate Monitor labs GI prophylaxis: Protonix 40 mg PO Daily DVT prophylaxis: Heparin 5000 units subcu every 12 hours Monitor vital signs and address as appropriate Discharge planning: Patient to return home when stable Further recommendations pending patient's course Nurse practitioner note has been reviewed by physician. Signing provider agrees with the documented findings, assessment, and plan of care.
[2017-07-25 17:04] LABS: Glucose,Whole Blood 138 mg/dL (75-99)
[2017-07-25 20:48] LABS: Glucose,Whole Blood 136 mg/dL (75-99)
[2017-07-25] MEDS: LEVOFLOXACIN 750 MG TAB PO SCH (20:52)
[2017-07-25] MEDS: QUEtiapine 50 MG TAB PO SCH (20:53)
[2017-07-25] MEDS: SERTRALINE 100 MG TAB PO SCH (20:54)
[2017-07-26] MEDS: SODIUM CHLORIDE 0.9% 1,000 ML IV SCH ×2 (05:59→10:44)
[2017-07-26] MEDS: methylPREDNISolone SOD SUCCI 125 MG/2 ML VIAL IV SCH (06:02)
[2017-07-26 07:06] LABS: Glucose,Whole Blood 104 mg/dL (75-99)
[2017-07-26] MEDS: INSULIN ASPART 100 UNIT/ML 1 ML 10 ML VIAL SQ SCH ×4 (07:15→21:50)
[2017-07-26] MEDS: BUDESONIDE 1 MG/2 ML NEBU INHALATION SCH ×2 (07:34→19:22)
[2017-07-26] MEDS: IPRATROPIUM-ALBUTEROL 3 ML NEB INHALATION SCH ×4 (07:34→19:22)
[2017-07-26 07:45] LABS: Basophils % (A) 0 %; Eosinophils % (A) 0 %; HCT 27.7 % (34.0-46.0); HGB 8.6 gm/dL (11.4-16.0); Hypochromasia Moderate; Lymphocytes # (A) 1.1 k/uL (1.0-4.8); Lymphocytes % (A) 21 %; MCH 30.6 pg (25.0-35.0); MCHC 31.1 g/dL (31.0-37.0); MCV 98.1 fL (80.0-100.0); Macrocytosis Slight; Mean Platelet Volume 7.7; Monocytes # (A) 0.3 k/uL (0-1.0); Monocytes % (A) 6 %; Neutrophils # (A) 3.6 k/uL (1.3-7.7); Neutrophils % (A) 70 %; Platelet Count 277 k/uL (150-450); RBC 2.82 m/uL (3.80-5.40); RDW 15.7 % (11.5-15.5); WBC 5.2 k/uL (3.8-10.6)
[2017-07-26 08:10] LABS: Albumin 3.2 g/dL (3.5-5.0); Calcium 8.2 mg/dL (8.4-10.2); Potassium 4.7 mmol/L (3.5-5.1); Total Bilirubin 0.1 mg/dL (0.2-1.3); Total Protein 5.8 g/dL (6.3-8.2)
[2017-07-26] MEDS: PHENYTOIN SODIUM EXTENDED 100 MG CAP PO SCH ×3 (08:33→21:51)
[2017-07-26] MEDS: busPIRone HCl 5 MG TAB PO SCH ×2 (08:33→21:51)
[2017-07-26] MEDS: HEPARIN SODIUM,PORCINE 5,000 UNIT/ML 1 ML VIAL SQ SCH ×2 (08:33→21:50)
[2017-07-26] MEDS: PRIMIDONE 50 MG TAB PO SCH ×2 (08:34→21:50)
[2017-07-26] MEDS: FOLIC ACID 1 MG TAB PO SCH (08:34)
[2017-07-26] MEDS: PANTOPRAZOLE 40 MG TABLET PO SCH (08:34)
--- NOTE | 2017-07-26 09:51 | P.NPCON ---
History of Present Illness - Reason for Consult acute renal failure, chronic renal failure - History of Present Illness Reason for consultation: Acute kidney injury on chronic kidney disease History of present illness: Patient is a 62-year-old female seen in renal consultation for acute kidney injury on chronic kidney disease. Patient has chronic kidney disease stage III with baseline creatinine in the range of 1.8-2 secondary to diabetic kidney disease. Patient presented to the hospital on July 22 and her creatinine on admission was 2.4 and did improve to 2.1 with IV hydration. It is up to 2.5 today. She is currently being treated for COPD exacerbation and pneumonia. Her dyspnea has improved. No edema. Admits to good urine output. No vomiting or diarrhea. Denies chest pain. Does admit to taking naproxen about once a week. Denies any family history of renal disease. Her renal ultrasound from 2015 was benign. Denies any hematuria or dysuria. Hemodynamically she's been stable. Her blood pressures are on the higher side. No episodes of hypotension. 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 Vital signs are stable. General: The patient appeared well nourished and normally developed. HEENT: Head exam is unremarkable. Neck is without jugular venous distension. LUNGS: Lungs are clear to auscultation and percussion. Breath sounds decreased. HEART: Rate and Rhythm are regular. First and second heart sounds normal. No murmurs, rubs or gallops. ABDOMEN: Abdominal exam reveals normal bowel sounds. Non-tender and non- distended. No evidence of peritonitis. EXTREMITITES: No clubbing, cyanosis, or edema. Past Medical History Past Medical History: COPD, Diabetes Mellitus, Hyperlipidemia, Hypertension, Seizure Disorder History of Any Multi-Drug Resistant Organisms: None Reported Past Surgical History: Hysterectomy Past Anesthesia/Blood Transfusion Reactions: Unable to Obtain Past Psychological History: Anxiety, Bipolar, Depression Smoking Status: Former smoker Past Alcohol Use History: None Reported Past Drug Use History: Marijuana, Prescription Drug Abuse - Past Family History Mother Family Medical History: Diabetes Mellitus, Hypertension Father Family Medical History: Hypertension Medications and Allergies Home Medications Medication Instructions Recorded Confirmed Type Phenytoin Sodium Extended 100 mg PO TID 11/29/15 07/22/17 History [Dilantin] Sertraline [Zoloft] 200 mg PO HS 11/29/15 07/22/17 History Albuterol Inhaler [Ventolin Hfa 2 puff INHALATION RT-Q6H PRN 07/22/17 07/22/17 History Inhaler] Folic Acid 1 mg PO DAILY 07/22/17 07/22/17 History QUEtiapine FUMARATE 150 mg PO [id number] 07/22/17 History busPIRone HCL 15 mg PO BID 07/22/17 07/22/17 History metFORMIN HCL [Glucophage] 1,000 mg PO BID 07/22/17 07/22/17 History Primidone [Mysoline] 50 mg PO BID 07/23/17 07/23/17 History Allergies Allergy/AdvReac Type Severity Reaction Status Date / Time No Known Allergies Allergy Verified 07/22/17 16:06 Physical Exam Vitals: Vital Signs Temp Pulse Pulse Resp BP Pulse Ox 07/26/17 07:49 92 07/26/17 07:35 92 07/26/17 07:00 98.1 F 87 16 155/102 97 07/25/17 23:27 107 H 18 07/25/17 22:54 98.6 F 107 H 18 148/103 93 L 07/25/17 20:40 92 16 07/25/17 20:22 94 18 07/25/17 20:00 98.5 F 102 H 18 150/89 95 07/25/17 16:00 98.0 F 95 18 169/77 96 07/25/17 15:46 88 16 07/25/17 15:36 90 16 07/25/17 12:00 97.9 F 94 18 165/76 94 L 07/25/17 11:38 92 07/25/17 11:27 92 Intake and Output 07/25/17 07/26/17 07/26/17 22:59 06:59 14:59 Intake Total 540 Balance 540 Intake: Oral 540 Other: Voiding Method Toilet Toilet # Voids 2 # Bowel Movements 1 Weight 75.7 kg Results - Lab Results Most recent lab results Calcium 8.2 mg/dL (8.4-10.2) L 07/26/17 07:10 Magnesium 1.8 mg/dL (1.6-2.3) 07/23/17 05:57 07/26/17 07:10 07/26/17 07:10 Assessment and Plan Plan: Assessment: #1. Nonoliguric acute kidney injury secondary to ATN secondary to poor oral intake and further worsened with the use of metformin and nonsteroidals. Rule out urinary retention. Creatinine up to 2.5 today. #2. Chronic kidney disease stage IV likely secondary to diabetic kidney disease with baseline creatinine near 2. #3. Acute COPD exacerbation maintained on IV steroids and bronchodilator therapy. #4. Metabolic acidosis secondary to acute kidney injury. #5. Hypertension with chronic kidney disease. Blood pressures on the higher side. #6. Diabetes mellitus. #7. Anemia. Rule out iron deficiency. Plan: Continue with normal saline at 50 mL an hour. Check urinalysis. Check renal ultrasound. Check postvoid residual to make sure no underlying urinary retention. Avoid nephrotoxic agents and hypotensive episodes. Avoid metformin as GFR is less than 30. Add oral sodium bicarbonate 650 mg twice daily. Check iron studies. Repeat electrolytes in the morning. I stressed the importance of following up as an outpatient upon discharge. Thank you for the consultation. I will continue to follow the patient with you during her hospital stay.
[2017-07-26] MEDS: ACETAMINOPHEN TAB 325 MG TAB PO PRN (10:04)
[2017-07-26] MEDS ORDERED: ALPRAZolam 0.25 MG TAB PO STA (10:29)
[2017-07-26] MEDS: SODIUM BICARBONATE TAB 650 MG TAB PO SCH ×2 (10:44→21:50)
--- NOTE | 2017-07-26 12:15 | P.PN ---
Subjective Progress Note Date: 07/26/17 Principal diagnosis: Acute exacerbation of severe oxygen-dependent chronic obstructive pulmonary disease This is a very pleasant 62-year-old female patient who follows with Dr. Mari as her primary care physician. She has a history of diabetes mellitus, hypertension, essential tremors, gastroesophageal reflux disease, dyslipidemia. She has has a history of anxiety/depression, chronic kidney disease and seizure disorder. She is a 40 year pack per day smoking history. She follows in our office for severe oxygen dependent COPD. He is somewhat of a poor historian. She states yesterday she developed sudden onset of shortness of breath after walking to the bathroom and back. She did a difficult time catching her breath and went to sit down on the floor. EMS was called and she was brought here for the same. Her chest x-ray showed no acute pulmonary process. He was initially placed on BiPAP. He cut 5.6. Hemoglobin 9.6. Creatinine 2.10. She is seen today in consultation on the selective care unit. She is currently off the BiPAP and maintaining O2 saturations in the 90s on 4 L/m per nasal cannula. She is feeling better today as compared to yesterday. She was initiated on DuoNeb inhalations, IV Solu-Medrol and empiric antibiotics in the form of Levaquin. On 07/24/2017 patient seen in follow-up. Her lung sounds are diminished, no rhonchi or wheezes noted. However patient remains very dyspneic with any exertion, she states it's a struggle for her to walk to the bathroom without significant shortness of breath. She remains on 4 L per nasal cannula with O2 sat 97%. She is afebrile, he was dynamically stable. Today's lab work shows that with VC of 4.3, hemoglobin is 8.6, sodium is 141, potassium is 5.1, chloride is 114, CO2 is 15, BUN is 36, creatinine is 2.13. Blood culture is negative and sputum culture is pending. Patient remains on Levaquin, IV Solu- Medrol, nebulized treatments. Not ready for discharge yet. On 07/26/2017 patient seen in follow-up on medical surgical floor. She denies any acute rest or distress, lung sounds have improved, with only minimal wheezes on the left. She remains afebrile, dynamically stable, currently on 4 L per nasal cannula with O2 sat 97%. Today's lab work shows WBC of 5.2, hemoglobin is 8.6, there is further worsening of the renal profile, BUN is 42, creatinine is 2.55. Nephrology is following. Patient is anxious, and upset about the possibility of hemodialysis in the future if her renal function does not improve. But otherwise reports improvement in terms of her dyspnea. Objective - Vital Signs Vital signs: Vital Signs Temp 98.1 F 07/26/17 07:00 Pulse 92 07/26/17 07:49 Resp 16 07/26/17 07:00 BP 155/102 07/26/17 07:00 Pulse Ox 97 07/26/17 07:00 Intake & Output 07/25/17 07/26/17 07/26/17 18:59 06:59 18:59 Intake Total 474 540 Balance 474 540 Weight 75.7 kg Intake: Oral 474 540 Other: Voiding Method Toilet Toilet # Voids 2 # Bowel Movements 1 - Exam GENERAL EXAM: Alert, active, comfortable in no apparent distress. HEAD: Normocephalic. EYES: Normal reaction of pupils, equal size. NOSE: Clear with pink turbinates. THROAT: No erythema or exudates. NECK: No masses, no JVD. CHEST: No chest wall deformity. LUNGS: Equal air entry with no crackles, rhonchi or dullness, there is minimal wheezes on the left. Diminished. CVS: S1 and S2 normal with no audible murmur, regular rhythm. ABDOMEN: No hepatosplenomegaly, normal bowel sounds, no guarding or rigidity. SPINE: Kyphoscoliosis SKIN: No rashes CENTRAL NERVOUS SYSTEM: No focal deficits, tone is normal in all 4 extremities. EXTREMITIES: Essential tremors. There is no peripheral edema. No clubbing, no cyanosis. Peripheral pulses are intact. - Labs CBC & Chem 7: 07/26/17 07:10 07/26/17 07:10 Labs: Abnormal Lab Results - Last 24 Hours (Table) 07/25/17 07/25/17 07/25/17 Range/Units 12:12 16:54 20:46 RBC (3.80-5.40) m/uL Hgb (11.4-16.0) gm/dL Hct (34.0-46.0) % RDW (11.5-15.5) % Chloride (98-107) mmol/L Carbon Dioxide (22-30) mmol/L BUN (7-17) mg/dL Creatinine (0.52-1.04) mg/dL POC Glucose (mg/dL) 116 H 138 H 136 H (75-99) mg/dL Calcium (8.4-10.2) mg/dL Total Bilirubin (0.2-1.3) mg/dL Alkaline Phosphatase (38-126) U/L Total Protein (6.3-8.2) g/dL Albumin (3.5-5.0) g/dL 07/26/17 07/26/17 07/26/17 Range/Units 07:05 07:10 07:10 RBC 2.82 L (3.80-5.40) m/uL Hgb 8.6 L (11.4-16.0) gm/dL Hct 27.7 L (34.0-46.0) % RDW 15.7 H (11.5-15.5) % Chloride 115 H (98-107) mmol/L Carbon Dioxide 18 L (22-30) mmol/L BUN 42 H (7-17) mg/dL Creatinine 2.55 H (0.52-1.04) mg/dL POC Glucose (mg/dL) 104 H (75-99) mg/dL Calcium 8.2 L (8.4-10.2) mg/dL Total Bilirubin 0.1 L (0.2-1.3) mg/dL Alkaline Phosphatase 140 H (38-126) U/L Total Protein 5.8 L (6.3-8.2) g/dL Albumin 3.2 L (3.5-5.0) g/dL Microbiology - Last 24 Hours (Table) 07/22/17 15:40 Blood Culture - Preliminary Blood No Growth after 72 hours 07/23/17 06:10 Gram Stain - Final Sputum Sputum Culture - Final Denise albicans Assessment and Plan Plan: Assessment: #1 Acute exacerbation of severe oxygen dependent chronic obstructive pulmonary disease. No clear evidence of pneumonia. #2 Chronic and ongoing tobacco dependence. #3 History of marijuana use. #4 Diabetes mellitus. #5 History of anxiety/depression. #6 History of seizure disorder. Plan: Patient continues to improve in terms of her dyspnea and wheezing. We will stop the Solu-Medrol and start the patient on oral prednisone 40 mg daily. Continue with nebulized treatments, continue with Levaquin, Pulmicort. I performed a history & physical examination of the patient and discussed their management with my nurse practitioner, Carol Chatman. I reviewed the nurse practitioner's note and agree with the documented findings and plan of care. Lung sounds are positive for only a few wheezes on the left. The findings and the impression was discussed with the patient. I attest to the documentation by the nurse practitioner. Time with Patient: Less than 30
[2017-07-26 12:26] LABS: Glucose,Whole Blood 94 mg/dL (75-99)
[2017-07-26 13:06] LABS: Appearance,Urine Clear (Clear); Bacteria,Urine Rare /hpf; Bilirubin,Urine Negative (Negative); Blood,Urine Small (Negative); Color,Urine Light Yellow; Glucose,Urine (UA) Negative (Negative); Hyaline Casts,Urine 1 /lpf (0-2); Ketones,Urine Negative (Negative); Leukocyte Esterase,Urine Negative (Negative); Mucus,Urine Rare /hpf; Protein,Urine 2+ (Negative); RBC,Urine 1 /hpf (0-5); Specific Gravity,Urine 1.008 (1.001-1.035); Squamous Epithelial Cell,Urine <1 /hpf (0-4); Urobilinogen,Urine <2.0 mg/dL (<2.0); WBC,Urine <1 /hpf (0-5)
--- NOTE | 2017-07-26 13:15 | P.PN ---
Subjective Progress Note Date: 07/26/17 07/23/2017-PER DR. HARO There is a pleasant 62-year-old female with chronic obstructive pulmonary disease O2 dependent steroid-dependent also has hypertension essential tremors gastric esophageal reflux disease and dyslipidemia. Has a history of anxiety depression chronic kidney disease seizure disorder. Patient has a 40 year pack a day smoking history. Patient states that on the she developed severe shortness of breath that progressed significantly her chest x-ray demonstrated no acute pulmonary process patient was initially placed on BiPAP the ER. Patient is was on BiPAP throughout the night. He was placed on Levaquin IV Solu -Medrol and DuoNeb 07/24/2017 Patient evaluated at the bedside with Dr. Haro. Patient remains on 4L NC with oxygen saturations greater than 92%. Blood pressure is elevated at 168/73. However previous readings reveal SBP in the 130s. Patient remains on IV steroids : 60mg Q6 hours. Pulmonary is on consult. Patient states her family friend today and she is very upset and anxious. Patient requesting anti-anxiety medication. 07/25/2017 Patient seen and examined at the bedside on rounds with Dr. Haro. Patient is awake and alert. States her shortness of breath is improving. Denies chest pain or pressure. Appetite is good. Denies nausea or vomiting. Patient states she slept well last night. Remains on 4L NC with oxygen saturations greater than 92% . Pulmonary is on consult. Patient remains on solumedral 60mg IV q 6. 07/26/2017 Patient seen and examined at the bedside. Patient's IV steroids have been transitioned to oral patient is currently on 40 mg by mouth daily. She remains on Levaquin 750 mg by mouth every 48 hours. 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 Patient requesting medication to help with her anxiety. Nephrology was consulted yesterday secondary to acute kidney injury. Urinalysis was ordered yesterday and is pending collection. Blood pressure this morning was elevated at 155/102. Objective - Vital Signs Vital signs: Vital Signs Temp 98.1 F 07/26/17 07:00 Pulse 92 07/26/17 07:49 Resp 16 07/26/17 07:00 BP 155/102 07/26/17 07:00 Pulse Ox 97 07/26/17 07:00 Intake & Output 07/25/17 07/26/17 07/26/17 18:59 06:59 18:59 Intake Total 474 540 Balance 474 540 Weight 75.7 kg Intake: Oral 474 540 Other: Voiding Method Toilet Toilet # Voids 2 # Bowel Movements 1 - Exam GENERAL: This is a 62-year-old female in no apparent distress at the time of examination. Pleasant and cooperative. HEENT: Head is atraumatic, normocephalic. Pupils are equal, round, and reactive to light. Sclerae anicteric. Conjunctivae are clear. Mucus membranes of the mouth are moist. Neck is supple. RESPIRATORY: Diminished throughout. Some scattered expiratory wheezing, significantly improved. No use of accessory muscles. Patient maintaining oxygen saturation greater than 92% on 4L. No chest wall tenderness is noted on palpation or with deep breathing. CARDIOVASCULAR: Regular rate and rhythm. S1 and S2 noted. No JVD noted. No S3 or S4 noted. GASTROINTESTINAL: No distention noted. Abdomen soft and round. Normal active bowel sounds auscultated x 4 quadrants. No pain or tenderness noted upon palpation. INTEGUMENTARY: No cyanosis. No jaundice. No rashes noted. No cellulitis noted. EXTREMITIES: 2+ peripheral pulses. No evidence of peripheral edema. No calf tenderness noted. NEUROLOGIC: Cranial nerves II-XII intact. PSYCHIATRIC: Awake, alert, and oriented X 3. Appropriate affect. Intact judgement and insight. - Labs CBC & Chem 7: 07/26/17 07:10 07/26/17 07:10 Labs: Abnormal Lab Results - Last 24 Hours (Table) 07/25/17 07/25/17 07/25/17 Range/Units 12:12 16:54 20:46 RBC (3.80-5.40) m/uL Hgb (11.4-16.0) gm/dL Hct (34.0-46.0) % RDW (11.5-15.5) % Chloride (98-107) mmol/L Carbon Dioxide (22-30) mmol/L BUN (7-17) mg/dL Creatinine (0.52-1.04) mg/dL POC Glucose (mg/dL) 116 H 138 H 136 H (75-99) mg/dL Calcium (8.4-10.2) mg/dL Total Bilirubin (0.2-1.3) mg/dL Alkaline Phosphatase (38-126) U/L Total Protein (6.3-8.2) g/dL Albumin (3.5-5.0) g/dL 07/26/17 07/26/17 07/26/17 Range/Units 07:05 07:10 07:10 RBC 2.82 L (3.80-5.40) m/uL Hgb 8.6 L (11.4-16.0) gm/dL Hct 27.7 L (34.0-46.0) % RDW 15.7 H (11.5-15.5) % Chloride 115 H (98-107) mmol/L Carbon Dioxide 18 L (22-30) mmol/L BUN 42 H (7-17) mg/dL Creatinine 2.55 H (0.52-1.04) mg/dL POC Glucose (mg/dL) 104 H (75-99) mg/dL Calcium 8.2 L (8.4-10.2) mg/dL Total Bilirubin 0.1 L (0.2-1.3) mg/dL Alkaline Phosphatase 140 H (38-126) U/L Total Protein 5.8 L (6.3-8.2) g/dL Albumin 3.2 L (3.5-5.0) g/dL Microbiology - Last 24 Hours (Table) 07/22/17 15:40 Blood Culture - Preliminary Blood No Growth after 72 hours 07/23/17 06:10 Gram Stain - Final Sputum Sputum Culture - Final Denise albicans Assessment and Plan Plan: ASSESSMENT: Acute exacerbation of severe oxygen-dependent chronic obstructive pulmonary disease Altered mental status, encephalopathy due to hypoxia, resolved Dehydration with elevated lactic acid, improving with IV hydration Acute kidney injury secondary to ATN secondary to decreased oral intake, metformin, and NSAIDs Chronic kidney disease, stage IV secondary to diabetic kidney disease, GFR 23, baseline creatinine near 2.0 Normocytic normochromic anemia, suspect anemia of chronic disease, rule out iron deficiency anemia Mild hyperkalemia, potassium 5.1, resolved Essential hypertension Nicotine dependence, in remission, patient states she has not smoked in almost a year Diabetes mellitus, type II Anxiety, unspecified Depression, unspecified Seizure disorder PLAN: Nephrology on consult. Appreciate recommendations and input Collect urinalysis Await results of iron studies Await results of kidney ultrasound Continue to hold metformin secondary to decreased GFR Novolog sliding scale AC/HS Begin hydralazine 25 mg PO TID Pulmonary on consult. Appreciate recommendations and input Patient transitioned to oral steroids today per pulmonary Xanax 0.25 mg 1 dose. Patient has a history of abuse. Enforced to patient that Xanax is a 1 time dose only and will not be reordered. Patient agreeable. Continue Levaquin 750mg Q48 hours Home meds as appropriate Monitor labs GI prophylaxis: Protonix 40 mg PO Daily DVT prophylaxis: Heparin 5000 units subcu every 12 hours Monitor vital signs and address as appropriate Discharge planning: Patient to return home when stable Further recommendations pending patient's course Nurse practitioner note has been reviewed by physician. Signing provider agrees with the documented findings, assessment, and plan of care.
--- NOTE | 2017-07-26 14:12 | US ---
EXAMINATION TYPE: US kidneys/renal and bladder DATE OF EXAM: 07/26/2017 COMPARISON: US 11/30/2015, CT 11/22/2014 CLINICAL HISTORY: penelope. EXAM MEASUREMENTS: Right Kidney: 9.1 x 5.2 x 4.4 cm Left Kidney: 9.1 x 4.1 x 4.1 cm Right Kidney: No hydronephrosis. Echogenic foci visualized lower pole measuring 0.9 cm. Nonobstructin g renal stone to be considered. Multiple small cystic areas visualized, largest mid pole measuring 1. 0 x 0.9 x 0.8 cm Left Kidney: No hydronephrosis. Nodular contour. Simple Cystic area upper pole measuring 1.9 x 1.4 x 1.5 cm Bladder: wnl Bilateral Jets seen: Yes IMPRESSION: 1. Simple cyst upper pole left kidney. 2. Nonobstructing shadowing right renal stone inferior pole
[2017-07-26] MEDS: hydrALAZINE HCL 25 MG TAB PO SCH ×2 (15:51→21:51)
[2017-07-26] MEDS: BUTALB/APAP/CAFF 50-325-40MG TAB PO PRN (15:56)
[2017-07-26 16:45] LABS: Iron Saturation 18.83 (12.00-45.00)
[2017-07-26 16:48] LABS: Glucose,Whole Blood 115 mg/dL (75-99)
[2017-07-26 20:34] LABS: Glucose,Whole Blood 121 mg/dL (75-99)
[2017-07-26] MEDS: QUEtiapine 50 MG TAB PO SCH (21:50)
[2017-07-26] MEDS: SERTRALINE 100 MG TAB PO SCH (21:50)
[2017-07-27] MEDS: SODIUM CHLORIDE 0.9% 1,000 ML IV SCH (05:32)
[2017-07-27 06:14] LABS: Basophils % (A) 1 %; Eosinophils # (A) 0.1 k/uL (0-0.7); Eosinophils % (A) 2 %; HCT 27.5 % (34.0-46.0); HGB 8.4 gm/dL (11.4-16.0); Hypochromasia Slight; Lymphocytes # (A) 1.5 k/uL (1.0-4.8); Lymphocytes % (A) 30 %; MCH 30.3 pg (25.0-35.0); MCHC 30.6 g/dL (31.0-37.0); Macrocytosis Slight; Mean Platelet Volume 7.4; Monocytes # (A) 0.4 k/uL (0-1.0); Monocytes % (A) 7 %; Neutrophils # (A) 2.9 k/uL (1.3-7.7); Neutrophils % (A) 58 %; Platelet Count 252 k/uL (150-450); RBC 2.77 m/uL (3.80-5.40); RDW 15.7 % (11.5-15.5)
[2017-07-27 06:23] LABS: ALT 18 U/L (9-52); AST 17 U/L (14-36); Albumin 2.6 g/dL (3.5-5.0); Alkaline Phosphatase 118 U/L (38-126); Anion Gap 9 mmol/L; Blood Urea Nitrogen 32 mg/dL (7-17); Calcium 7.2 mg/dL (8.4-10.2); Carbon Dioxide 17 mmol/L (22-30); Chloride 118 mmol/L (98-107); Glucose 95 mg/dL (74-99); Potassium 3.5 mmol/L (3.5-5.1); Sodium 144 mmol/L (137-145); Total Bilirubin <0.1 mg/dL (0.2-1.3)
[2017-07-27 07:06] LABS: Glucose,Whole Blood 105 mg/dL (75-99)
[2017-07-27] MEDS: INSULIN ASPART 100 UNIT/ML 1 ML 10 ML VIAL SQ SCH ×4 (07:42→20:37)
[2017-07-27] MEDS: busPIRone HCl 5 MG TAB PO SCH ×3 (09:00→22:57)
[2017-07-27] MEDS: FOLIC ACID 1 MG TAB PO SCH (09:01)
[2017-07-27] MEDS: HEPARIN SODIUM,PORCINE 5,000 UNIT/ML 1 ML VIAL SQ SCH ×2 (09:01→20:37)
[2017-07-27] MEDS: hydrALAZINE HCL 25 MG TAB PO SCH ×3 (09:01→22:56)
[2017-07-27] MEDS: PRIMIDONE 50 MG TAB PO SCH ×2 (09:01→20:37)
[2017-07-27] MEDS: PHENYTOIN SODIUM EXTENDED 100 MG CAP PO SCH ×3 (09:01→22:56)
[2017-07-27] MEDS: predniSONE 20 MG TAB PO SCH (09:01)
[2017-07-27] MEDS: PANTOPRAZOLE 40 MG TABLET PO SCH (09:01)
[2017-07-27] MEDS: SODIUM BICARBONATE TAB 650 MG TAB PO SCH ×2 (09:04→20:37)
[2017-07-27] MEDS: BUDESONIDE 1 MG/2 ML NEBU INHALATION SCH ×2 (10:19→20:19)
[2017-07-27] MEDS: IPRATROPIUM-ALBUTEROL 3 ML NEB INHALATION SCH ×4 (10:19→20:19)
--- NOTE | 2017-07-27 11:03 | P.PN ---
Subjective Progress Note Date: 07/27/17 Principal diagnosis: This is a 62-year-old female with chronic kidney disease stage III, baseline creatinine 2. She was admitted because of shortness of breath and pneumonia. She continues to improve with less cough less shortness of breath. She is on nasal cannula oxygen. She has diabetic nephropathy. COPD, seizure disorder. Currently denies any nausea vomiting diarrhea abdominal pain good urine output. No dizziness is able to walk. Objective - Vital Signs Vital signs: Vital Signs Temp 98.9 F 07/27/17 07:00 Pulse 88 07/27/17 07:00 Resp 18 07/27/17 07:00 BP 152/93 07/27/17 07:00 Pulse Ox 98 07/27/17 07:00 Intake & Output 07/26/17 07/27/17 07/27/17 18:59 06:59 18:59 Intake Total 400 1790 Balance 400 1790 Intake: IV 400 400 Sodium Chloride 0.9% 1, 400 400 000 ml @ 50 mls/hr IV . Q20H BHAVIK Rx#:[id number] Oral 1390 Other: Voiding Method Toilet Toilet # Voids 2 On examination she is somewhat obese. HEENT exam no JVP neck is supple no facial asymmetry Lungs are clear to auscultation percussion good air entry bilaterally no dullness percussion. Heart sounds are unremarkable for any murmur rub gallop Abdomen soft nontender obese Extremity exam was no edema Neuro logically awake alert oriented. - Labs CBC & Chem 7: 07/27/17 05:27 07/27/17 05:27 Labs: Abnormal Lab Results - Last 24 Hours (Table) 07/26/17 07/26/17 07/26/17 Range/Units 12:10 16:47 20:33 RBC (3.80-5.40) m/uL Hgb (11.4-16.0) gm/dL Hct (34.0-46.0) % MCHC (31.0-37.0) g/dL RDW (11.5-15.5) % Chloride (98-107) mmol/L Carbon Dioxide (22-30) mmol/L BUN (7-17) mg/dL Creatinine (0.52-1.04) mg/dL POC Glucose (mg/dL) 115 H 121 H (75-99) mg/dL Calcium (8.4-10.2) mg/dL Total Bilirubin (0.2-1.3) mg/dL Total Protein (6.3-8.2) g/dL Albumin (3.5-5.0) g/dL Urine Protein 2+ H (Negative) Urine Blood Small H (Negative) Urine Bacteria Rare H (None) /hpf Urine Mucus Rare H (None) /hpf 07/27/17 07/27/17 07/27/17 Range/Units 05:27 05:27 07:04 RBC 2.77 L (3.80-5.40) m/uL Hgb 8.4 L (11.4-16.0) gm/dL Hct 27.5 L (34.0-46.0) % MCHC 30.6 L (31.0-37.0) g/dL RDW 15.7 H (11.5-15.5) % Chloride 118 H (98-107) mmol/L Carbon Dioxide 17 L (22-30) mmol/L BUN 32 H (7-17) mg/dL Creatinine 2.01 H (0.52-1.04) mg/dL POC Glucose (mg/dL) 105 H (75-99) mg/dL Calcium 7.2 L (8.4-10.2) mg/dL Total Bilirubin <0.1 L (0.2-1.3) mg/dL Total Protein 5.0 L (6.3-8.2) g/dL Albumin 2.6 L (3.5-5.0) g/dL Urine Protein (Negative) Urine Blood (Negative) Urine Bacteria (None) /hpf Urine Mucus (None) /hpf Microbiology - Last 24 Hours (Table) 07/22/17 15:40 Blood Culture - Preliminary Blood No Growth after 96 hours 07/26/17 12:10 Urine Culture - Preliminary Urine,Voided Assessment and Plan Assessment: Assessment: #1. Nonoliguric acute kidney injury secondary to ATN secondary to poor oral intake and further worsened with the use of metformin and nonsteroidals. Creatinine is down to 2, at baseline. #2. Chronic kidney disease stage IV likely secondary to diabetic kidney disease with baseline creatinine near 2. Urinalysis shows 2+ protein, ultrasound shows 9.1 cm both kidney size. #3. Acute COPD exacerbation maintained on IV steroids and bronchodilator therapy. #4. Metabolic acidosis secondary to acute kidney injury. Bicarbonate is stable at 17, on sodium bicarb 650 twice a day #5. Hypertension with chronic kidney disease. Blood pressures on the higher side. #6. Diabetes mellitus. #7. Anemia. Iron saturations 18% on 07/26/2017, suggesting iron deficiency. Plan: She could be discharged and followed at the office closely. She has not been seen by nephrology but it is essential that she be followed up to avoid going into ESRD and requiring dialysis in the future. She understands this. Avoid nephrotoxic agents and hypotensive episodes. Avoid metformin as GFR is less than 30. Continue oral sodium bicarbonate 650 mg twice daily. Check iron studies. Start by mouth iron sulfate 325 twice a day and see if her saturation improved
[2017-07-27 11:30] LABS: Glucose,Whole Blood 108 mg/dL (75-99)
[2017-07-27] MEDS: FERROUS SULFATE 325 MG TAB PO SCH ×2 (13:06→18:08)
--- NOTE | 2017-07-27 15:20 | P.PN ---
Subjective Progress Note Date: 07/27/17 Principal diagnosis: Renal insufficiency, O2 dependent steroid-dependent acute exacerbation of chronic COPD Patient's respiratory efforts are significantly improved patient is on by mouth and his own at this time is still on oxygen I believe 4 L nasal cannula. Patient is then on IV antibiotics as well as meds for diabetes which some of which have been stopped patient's metformin has been recommended to stop she is also stopped diuretics and nonsteroidal anti-inflammatory agents BUN/creatinine had been creeping upward however appears to be stabilized we'll continue to follow anticipate discharging patient home tomorrow Objective - Vital Signs Vital signs: Vital Signs Temp 98.9 F 07/27/17 07:00 Pulse 101 H 07/27/17 11:19 Resp 18 07/27/17 08:00 BP 152/93 07/27/17 07:00 Pulse Ox 95 07/27/17 11:06 Intake & Output 07/26/17 07/27/17 07/27/17 18:59 06:59 18:59 Intake Total 400 1790 1380 Balance 400 1790 1380 Intake: IV 400 400 Sodium Chloride 0.9% 1, 400 400 000 ml @ 50 mls/hr IV . Q20H BHAVIK Rx#:[id number] Intake, IV Titration 300 Amount Sodium Chloride 0.9% 1, 300 000 ml @ 50 mls/hr IV . Q20H BHAVIK Rx#:[id number] Oral 1390 1080 Other: Voiding Method Toilet Toilet Toilet # Voids 2 3 - Exam General: [Patient awake, alert and oriented times 3. Patient in no acute distress.] HEENT: [PERRL. EOMI. No pharyngeal erythema or exudate.] Neck: [No adenopathy.] Cardiac: [Heart regular in rate and rhythm. No S3. No S4. No clicks, rubs. No murmur.] Lungs: Decreased breath sounds bilaterally expiration wheezes improved Abdomen: [No mass. No organomegaly. Bowel sounds presnt and normoactive in all 4 quadrants.] Extremes: [No edema no cyanosis no claudication normal pulses] : [] Musculoskeletal: [No joint erythema, edema or tenderness.] Skin: [No rash.] Neurologic: [No lateralizing deficits. CN II - XII grossly intact.] Lymphatic: [No adenopathy.] - Labs CBC & Chem 7: 07/27/17 05:27 07/27/17 05:27 Labs: Abnormal Lab Results - Last 24 Hours (Table) 07/26/17 07/26/17 07/27/17 Range/Units 16:47 20:33 05:27 RBC 2.77 L (3.80-5.40) m/uL Hgb 8.4 L (11.4-16.0) gm/dL Hct 27.5 L (34.0-46.0) % MCHC 30.6 L (31.0-37.0) g/dL RDW 15.7 H (11.5-15.5) % Chloride (98-107) mmol/L Carbon Dioxide (22-30) mmol/L BUN (7-17) mg/dL Creatinine (0.52-1.04) mg/dL POC Glucose (mg/dL) 115 H 121 H (75-99) mg/dL Calcium (8.4-10.2) mg/dL Total Bilirubin (0.2-1.3) mg/dL Total Protein (6.3-8.2) g/dL Albumin (3.5-5.0) g/dL 07/27/17 07/27/17 07/27/17 Range/Units 05:27 07:04 11:24 RBC (3.80-5.40) m/uL Hgb (11.4-16.0) gm/dL Hct (34.0-46.0) % MCHC (31.0-37.0) g/dL RDW (11.5-15.5) % Chloride 118 H (98-107) mmol/L Carbon Dioxide 17 L (22-30) mmol/L BUN 32 H (7-17) mg/dL Creatinine 2.01 H (0.52-1.04) mg/dL POC Glucose (mg/dL) 105 H 108 H (75-99) mg/dL Calcium 7.2 L (8.4-10.2) mg/dL Total Bilirubin <0.1 L (0.2-1.3) mg/dL Total Protein 5.0 L (6.3-8.2) g/dL Albumin 2.6 L (3.5-5.0) g/dL Microbiology - Last 24 Hours (Table) 07/22/17 15:40 Blood Culture - Preliminary Blood No Growth after 96 hours 07/26/17 12:10 Urine Culture - Preliminary Urine,Voided Assessment and Plan (1) Acute exacerbation of chronic obstructive airways disease Narrative/Plan: O2-dependent steroid-dependent chronic obstructive pulmonary disease Patient uses bronchodilators as well and was recently started on long-acting bronchodilator and uses O2 per nasal cannula And had is chronically using steroids Current Visit: Yes Status: Acute Code(s): J44.1 - CHRONIC OBSTRUCTIVE PULMONARY DISEASE W (ACUTE) EXACERBATION SNOMED Code(s): 680958816 (2) Acute respiratory failure Narrative/Plan: Patient developed severe dyspnea approximately 2 days ago and just became progressively worse presented to the emergency room at which time the patient was admitted placed on Levaquin and DuoNeb and Solu-Medrol Current Visit: Yes Status: Acute Code(s): J96.00 - ACUTE RESPIRATORY FAILURE , UNSP W HYPOXIA OR HYPERCAPNIA SNOMED Code(s): 99342523 (3) Altered mental status Narrative/Plan: Due to hypoxia and significantly improved Current Visit: No Status: Acute Code(s): R41.82 - ALTERED MENTAL STATUS, UNSPECIFIED SNOMED Code(s): 727631685 (4) Dehydration Narrative/Plan: Dehydration improved to aggressive IV rehydration lactic acidosis has resolved Current Visit: No Status: Acute Code(s): E86.0 - DEHYDRATION SNOMED Code(s ): 64206658 (5) Renal insufficiency Narrative/Plan: Consult nephrology patient was well hydrated Current Visit: No Status: Acute Code(s): N28.9 - DISORDER OF KIDNEY AND URETER, UNSPECIFIED SNOMED Code(s): 896246246 Time with Patient: Greater than 30
--- NOTE | 2017-07-27 15:36 | P.PN ---
Subjective Progress Note Date: 07/27/17 Principal diagnosis: COPD exacerbation Progress note dated 07/27/2017 62-year-old female admitted with a diagnosis of COPD exacerbation. There is no evidence of pneumonia on chest x-ray. She has a history of chronic and ongoing tobacco dependence previous marijuana use diabetes history of anxiety/ depression and history of seizure disorder. From our perspective, the patient could be discharged. She feeling much better. He tells us that her primary doctor, told that she be discharged tomorrow. She looks very stable. She is coughing a bit not producing any phlegm. No audible wheezing. No use of accessory muscles. Does not appear to be in any distress. She tells us that she was already for discharge but was told by her primary she will not go until tomorrow. Objective - Vital Signs Vital signs: Vital Signs Temp 98.9 F 07/27/17 07:00 Pulse 98 07/27/17 15:30 Resp 18 07/27/17 08:00 BP 152/93 07/27/17 07:00 Pulse Ox 95 07/27/17 11:06 Intake & Output 07/26/17 07/27/17 07/27/17 18:59 06:59 18:59 Intake Total 400 1790 1380 Balance 400 1790 1380 Intake: IV 400 400 Sodium Chloride 0.9% 1, 400 400 000 ml @ 50 mls/hr IV . Q20H BHAVIK Rx#:[id number] Intake, IV Titration 300 Amount Sodium Chloride 0.9% 1, 300 000 ml @ 50 mls/hr IV . Q20H BHAVIK Rx#:[id number] Oral 1390 1080 Other: Voiding Method Toilet Toilet Toilet # Voids 2 3 - Exam No acute distress, oriented 3. Nasal O2 in place HEENT examination is grossly unremarkable. Mucous membranes are moist. No oral lesions. Neck supple. Full range of motion. No adenopathy thyromegaly or neck vein distention. Cardiovascular examination reveals regular rhythm rate. S1-S2 normal. No S3 or S4. No discernible murmur noted. Lungs reveal few scattered rhonchi. No wheezes or crackles. Breath sounds are equal. Breath sounds are much improved.. Abdomen soft bowel sounds are heard. No masses or tenderness. Extremities are intact. No cyanosis clubbing or edema. Skin is without rash or lesion. Neurologic examination is brief but nonfocal. - Labs CBC & Chem 7: 07/27/17 05:27 07/27/17 05:27 Labs: Abnormal Lab Results - Last 24 Hours (Table) 07/26/17 07/26/17 07/27/17 Range/Units 16:47 20:33 05:27 RBC 2.77 L (3.80-5.40) m/uL Hgb 8.4 L (11.4-16.0) gm/dL Hct 27.5 L (34.0-46.0) % MCHC 30.6 L (31.0-37.0) g/dL RDW 15.7 H (11.5-15.5) % Chloride (98-107) mmol/L Carbon Dioxide (22-30) mmol/L BUN (7-17) mg/dL Creatinine (0.52-1.04) mg/dL POC Glucose (mg/dL) 115 H 121 H (75-99) mg/dL Calcium (8.4-10.2) mg/dL Total Bilirubin (0.2-1.3) mg/dL Total Protein (6.3-8.2) g/dL Albumin (3.5-5.0) g/dL 07/27/17 07/27/17 07/27/17 Range/Units 05:27 07:04 11:24 RBC (3.80-5.40) m/uL Hgb (11.4-16.0) gm/dL Hct (34.0-46.0) % MCHC (31.0-37.0) g/dL RDW (11.5-15.5) % Chloride 118 H (98-107) mmol/L Carbon Dioxide 17 L (22-30) mmol/L BUN 32 H (7-17) mg/dL Creatinine 2.01 H (0.52-1.04) mg/dL POC Glucose (mg/dL) 105 H 108 H (75-99) mg/dL Calcium 7.2 L (8.4-10.2) mg/dL Total Bilirubin <0.1 L (0.2-1.3) mg/dL Total Protein 5.0 L (6.3-8.2) g/dL Albumin 2.6 L (3.5-5.0) g/dL Microbiology - Last 24 Hours (Table) 07/22/17 15:40 Blood Culture - Preliminary Blood No Growth after 96 hours 07/26/17 12:10 Urine Culture - Preliminary Urine,Voided Assessment and Plan Assessment: Assessment COPD exacerbation complicated by paratracheal bronchitis, without huber pneumonia. Chronic and ongoing tobacco dependence History of marijuana use Diabetes mellitus History of anxiety/depression History of seizure disorder Plan: Plan dated 07/27/2017 The patient is doing well. From our perspective could be discharged home. We' ll leave that up to the primary. Lung sounds are much improved. Chest x-ray did not reveal huber pneumonia. The patient denies any significant coughing wheezing shortness of breath. Not coughing up any phlegm or blood. No chest pain or chest discomfort. No nausea vomiting or diarrhea reported. Time with Patient: Less than 30
[2017-07-27 17:03] LABS: Glucose,Whole Blood 121 mg/dL (75-99)
[2017-07-27] MEDS: BUTALB/APAP/CAFF 50-325-40MG TAB PO PRN (19:54)
[2017-07-27 19:58] LABS: Glucose,Whole Blood 144 mg/dL (75-99)
[2017-07-27] MEDS: QUEtiapine 50 MG TAB PO SCH (19:58)
[2017-07-27] MEDS: LEVOFLOXACIN 750 MG TAB PO SCH (20:37)
[2017-07-27] MEDS: SERTRALINE 100 MG TAB PO SCH (20:37)
[2017-07-28] MEDS: ACETAMINOPHEN TAB 325 MG TAB PO PRN (00:53)
[2017-07-28 07:21] LABS: Glucose,Whole Blood 115 mg/dL (75-99)
[2017-07-28] MEDS: INSULIN ASPART 100 UNIT/ML 1 ML 10 ML VIAL SQ SCH (07:22)
[2017-07-28] MEDS: SODIUM CHLORIDE 0.9% 1,000 ML IV SCH (07:36)
[2017-07-28 07:50] VITALS: BP 145/69; RESP 18; TEMP 98.4
[2017-07-28] MEDS: BUDESONIDE 1 MG/2 ML NEBU INHALATION SCH (08:11)
[2017-07-28] MEDS: IPRATROPIUM-ALBUTEROL 3 ML NEB INHALATION SCH ×2 (08:11→11:54)
[2017-07-28] MEDS: PANTOPRAZOLE 40 MG TABLET PO SCH (08:43)
[2017-07-28] MEDS: FERROUS SULFATE 325 MG TAB PO SCH (08:43)
[2017-07-28] MEDS: PRIMIDONE 50 MG TAB PO SCH (08:43)
[2017-07-28] MEDS: FOLIC ACID 1 MG TAB PO SCH (08:43)
[2017-07-28] MEDS: SODIUM BICARBONATE TAB 650 MG TAB PO SCH (08:43)
[2017-07-28] MEDS: hydrALAZINE HCL 25 MG TAB PO SCH (08:43)
[2017-07-28] MEDS: HEPARIN SODIUM,PORCINE 5,000 UNIT/ML 1 ML VIAL SQ SCH (08:44)
[2017-07-28] MEDS: predniSONE 20 MG TAB PO SCH (08:44)
[2017-07-28] MEDS: busPIRone HCl 5 MG TAB PO SCH (08:44)
[2017-07-28] MEDS: PHENYTOIN SODIUM EXTENDED 100 MG CAP PO SCH (08:45)
--- NOTE | 2017-07-28 11:05 | P.DS ---
Providers Date of admission: 07/22/17 17:01 Expected date of discharge: 07/28/17 Attending physician: Adal Mari Consults: 07/22/17 17:02 Consult Physician Urgent Consulting Provider: Michael Vásquez Consult Reason/Comments: Respiratory failure, dyspnea Do you want consulting provider notified?: Yes 07/25/17 17:18 Consult Physician Routine Consulting Provider: Tavo Winchester Consult Reason/Comments: acute on chronic kidney disease Do you want consulting provider notified?: Yes Primary care physician: Adal Mari - Discharge Diagnosis(es) (1) Acute exacerbation of chronic obstructive airways disease O2 dependent and steroid dependent chronic obstructive pulmonary disease, patient is back to baseline and doing very well We'll discharge patient home on 30 units of prednisone by mouth daily O2 as currently ordered We'll complete a 10 day dose of antibiotics General: [Patient awake, alert and oriented times 3. Patient in no acute distress.] HEENT: [PERRL. EOMI. No pharyngeal erythema or exudate.] Neck: [No adenopathy.] Cardiac: [Heart regular in rate and rhythm. No S3. No S4. No clicks, rubs. No murmur.] Lungs: [Clear to auscultion, fine bibasilar crackles Abdomen: [No mass. No organomegaly. Bowel sounds presnt and normoactive in all 4 quadrants.] Extremes: [No edema no cyanosis no claudication normal pulses] : [] Musculoskeletal: [No joint erythema, edema or tenderness.] Skin: [No rash.] Neurologic: [No lateralizing deficits. CN II - XII grossly intact.] Lymphatic: [No adenopathy.] Current Visit: Yes Status: Acute (2) Acute respiratory failure Resolved Current Visit: Yes Status: Acute (3) Altered mental status Resolved Current Visit: No Status: Acute (4) Dehydration Significantly improved Current Visit: No Status: Acute (5) Renal insufficiency Stable Current Visit: No Status: Acute Patient Condition at Discharge: Stable Plan - Discharge Summary Discharge Rx Participant: No New Discharge Prescriptions: No Action Sertraline [Zoloft] 200 mg PO HS Phenytoin Sodium Extended [Dilantin] 100 mg PO TID metFORMIN HCL [Glucophage] 1,000 mg PO BID QUEtiapine FUMARATE 150 mg PO HS@2000 busPIRone HCL 15 mg PO BID Albuterol Inhaler [Ventolin Hfa Inhaler] 2 puff INHALATION RT-Q6H PRN PRN Reason: Shortness Of Breath Folic Acid 1 mg PO DAILY Primidone [Mysoline] 50 mg PO BID Discharge Medication List Phenytoin Sodium Extended [Dilantin] 100 mg PO TID 11/29/15 [History] Sertraline [Zoloft] 200 mg PO HS 11/29/15 [History] Albuterol Inhaler [Ventolin Hfa Inhaler] 2 puff INHALATION RT-Q6H PRN 07/22/17 [ History] Folic Acid 1 mg PO DAILY 07/22/17 [History] QUEtiapine FUMARATE 150 mg PO HS@199907/22/17 [History] busPIRone HCL 15 mg PO BID 07/22/17 [History] metFORMIN HCL [Glucophage] 1,000 mg PO BID 07/22/17 [History] Primidone [Mysoline] 50 mg PO BID 07/23/17 [History] Follow up Appointment(s)/Referral(s): Adal Mari Jr, [Primary Care Provider] - 1-2 days
--- NOTE | 2017-07-28 11:20 | P.PN ---
Subjective Progress Note Date: 07/28/17 Principal diagnosis: This is a 62-year-old female with chronic kidney disease stage III, baseline creatinine 2. She was admitted because of shortness of breath and pneumonia. She continues to improve with less cough less shortness of breath. She is on nasal cannula oxygen. She is being discharged home today. She is unable to recall that she was seen in our office little more than a year ago. She denies any complaints this morning. She has diabetic nephropathy. COPD, seizure disorder. Currently denies any nausea vomiting diarrhea abdominal pain good urine output. No dizziness is able to walk. Objective - Vital Signs Vital signs: Vital Signs Temp 98.4 F 07/28/17 07:00 Pulse 88 07/28/17 08:27 Resp 18 07/28/17 07:00 BP 145/69 07/28/17 07:00 Pulse Ox 98 07/28/17 07:00 Intake & Output 07/27/17 07/28/17 07/28/17 18:59 06:59 18:59 Intake Total 1380 1590 Balance 1380 1590 Intake: Intake, IV Titration 300 400 Amount Sodium Chloride 0.9% 1, 300 400 000 ml @ 50 mls/hr IV . Q20H [facility]AVIK Rx#:[id number] Oral 1080 1190 Other: Voiding Method Toilet Toilet # Voids 3 2 On examination she is awake alert oriented comfortable HEENT exam no JVP neck is supple no facial asymmetry Lungs clear to auscultation percussion good air entry bilaterally Heart sounds are unremarkable for any murmur rub gallop. Abdomen soft nontender Extremity exam was no edema Neurologically awake alert oriented. Forgetful - Labs CBC & Chem 7: 07/27/17 05:27 07/27/17 05:27 Labs: Abnormal Lab Results - Last 24 Hours (Table) 07/27/17 07/27/17 07/27/17 Range/Units 11:24 17:01 19:56 POC Glucose (mg/dL) 108 H 121 H 144 H (75-99) mg/dL 07/28/17 Range/Units 07:08 POC Glucose (mg/dL) 115 H (75-99) mg/dL Microbiology - Last 24 Hours (Table) 07/26/17 12:10 Urine Culture - Final Urine,Voided 07/22/17 15:40 Blood Culture - Preliminary Blood No Growth after 120 hours Assessment and Plan Assessment: Assessment: #1. Nonoliguric acute kidney injury secondary to ATN secondary to poor oral intake and further worsened with the use of metformin and nonsteroidals. Creatinine is down to 2, at baseline. #2. Chronic kidney disease stage IV likely secondary to diabetic kidney disease with baseline creatinine near 2. Urinalysis shows 2+ protein, ultrasound shows 9.1 cm both kidney size. #3. Acute COPD exacerbation maintained on IV steroids and bronchodilator therapy. #4. Metabolic acidosis secondary to acute kidney injury. Bicarbonate is stable at 17, on sodium bicarb 650 twice a day #5. Hypertension with chronic kidney disease. Blood pressures on the higher side. #6. Diabetes mellitus. #7. Anemia. Iron saturations 18% on 07/26/2017, suggesting iron deficiency. Plan: She could be discharged and followed at the office closely. She has been seen by nephrology but she does not recall that she was seen in our office. it is essential that she be followed up to avoid going into ESRD and requiring dialysis in the future. She understands this. Avoid nephrotoxic agents and hypotensive episodes. Avoid metformin as GFR is less than 30. Continue oral sodium bicarbonate 650 mg twice daily. Continue by mouth iron sulfate 325 twice a day and see if her saturation improved
[2017-07-28 11:21] VITALS: PULSE 97
[2017-07-28 11:26] LABS: Glucose,Whole Blood 110 mg/dL (75-99)
--- NOTE | 2017-07-28 11:30 | P.PN ---
Subjective Progress Note Date: 07/28/17 Principal diagnosis: COPD exacerbation Progress note dated 07/27/2017 62-year-old female admitted with a diagnosis of COPD exacerbation. There is no evidence of pneumonia on chest x-ray. She has a history of chronic and ongoing tobacco dependence previous marijuana use diabetes history of anxiety/ depression and history of seizure disorder. From our perspective, the patient could be discharged. She feeling much better. He tells us that her primary doctor, told that she be discharged tomorrow. She looks very stable. She is coughing a bit not producing any phlegm. No audible wheezing. No use of accessory muscles. Does not appear to be in any distress. She tells us that she was already for discharge but was told by her primary she will not go until tomorrow. Progress note dated 07/28/2017 This is a 62-year-old female admitted with a diagnosis of COPD exacerbation. There is no evidence of pneumonia on the chest x-ray. She has a history of chronic and ongoing tobacco dependence. This marijuana use diabetes anxiety/ depression and history of seizure disorder. The patient looked pretty good yesterday. She apparently was told that her time her physician was not coated discharge her for another day or 2. She could be discharged today. Still very short of breath with exertion. Not much better at rest. States that she is coughing a bit not producing any phlegm. No audible wheezing. No use of accessory muscles. She also denies any nausea vomiting or diarrhea. Denies any chest pain or pressure. No palpitation. No fever or chills. Objective - Vital Signs Vital signs: Vital Signs Temp 98.4 F 07/28/17 07:00 Pulse 88 07/28/17 08:27 Resp 18 07/28/17 08:00 BP 145/69 07/28/17 07:00 Pulse Ox 98 07/28/17 07:00 Intake & Output 07/27/17 07/28/17 07/28/17 18:59 06:59 18:59 Intake Total 1380 1590 Balance 1380 1590 Intake: Intake, IV Titration 300 400 Amount Sodium Chloride 0.9% 1, 300 400 000 ml @ 50 mls/hr IV . Q20H BHAVIK Rx#:[id number] Oral 1080 1190 Other: Voiding Method Toilet Toilet Toilet # Voids 3 2 - Exam No acute distress, oriented 3. Nasal O2 in place HEENT examination is grossly unremarkable. Mucous membranes are moist. No oral lesions. Neck supple. Full range of motion. No adenopathy thyromegaly or neck vein distention. Cardiovascular examination reveals regular rhythm rate. S1-S2 normal. No S3 or S4. No discernible murmur noted. Lungs reveal few scattered rhonchi. No wheezes or crackles. Breath sounds are equal. Breath sounds are much improved.. Abdomen soft bowel sounds are heard. No masses or tenderness. Extremities are intact. No cyanosis clubbing or edema. Skin is without rash or lesion. Neurologic examination is brief but nonfocal. - Labs CBC & Chem 7: 07/27/17 05:27 07/27/17 05:27 Labs: Abnormal Lab Results - Last 24 Hours (Table) 07/27/17 07/27/17 07/27/17 Range/Units 11:24 17:01 19:56 POC Glucose (mg/dL) 108 H 121 H 144 H (75-99) mg/dL 07/28/17 07/28/17 Range/Units 07:08 11:23 POC Glucose (mg/dL) 115 H 110 H (75-99) mg/dL Microbiology - Last 24 Hours (Table) 07/26/17 12:10 Urine Culture - Final Urine,Voided 07/22/17 15:40 Blood Culture - Preliminary Blood No Growth after 120 hours Assessment and Plan Assessment: Assessment COPD exacerbation complicated by purulent bronchitis, without huber pneumonia. Chronic and ongoing tobacco dependence History of marijuana use Diabetes mellitus History of anxiety/depression History of seizure disorder Plan: Plan dated 07/27/2017 The patient is doing well. From our perspective could be discharged home. We' ll leave that up to the primary. Lung sounds are much improved. Chest x-ray did not reveal huber pneumonia. The patient denies any significant coughing wheezing shortness of breath. Not coughing up any phlegm or blood. No chest pain or chest discomfort. No nausea vomiting or diarrhea reported. Plan dated 07/28/2017 The patient seemed be doing relatively well. The primary may decide to discharge her today or not. From the pulmonary perspective, the patient is doing much better. Much less short of breath although she remained short of breath on exertion. She is coughing a bit. Not producing much or any phlegm. A bit of wheezing only occasionally. Much for much worse when she exerts herself. Better when she is lying in bed. Time with Patient: Less than 30
== END 2017-07-28 12:14 | disposition home or self-care (01) | DRG 190 ==
LOC: EC 15:26 → 6SEL 17:01 → 5MS5E 07-25 22:38
PROVIDERS: ADMIT Family Medicine; ATTEND Family Medicine
DX: J44.1 Chronic obstructive pulmonary disease with (acute) exacerbation (principal); J96.01 Acute respiratory failure with hypoxia; N17.0 Acute kidney failure with tubular necrosis; G93.40 Encephalopathy, unspecified; E11.21 Type 2 diabetes mellitus with diabetic nephropathy; F17.201 Nicotine dependence, unspecified, in remission; D50.9 Iron deficiency anemia, unspecified; E87.2 Acidosis; N18.4 Chronic kidney disease, stage 4 (severe); E11.22 Type 2 diabetes mellitus with diabetic chronic kidney disease; Z99.81 Dependence on supplemental oxygen; E87.5 Hyperkalemia; E86.0 Dehydration; G25.0 Essential tremor; K21.9 Gastro-esophageal reflux disease without esophagitis; E78.5 Hyperlipidemia, unspecified; M40.209 Unspecified kyphosis, site unspecified; M81.0 Age-related osteoporosis without current pathological fracture; F32.9 Major depressive disorder, single episode, unspecified; F41.9 Anxiety disorder, unspecified; I12.9 Hypertensive chronic kidney disease with stage 1 through stage 4 chronic kidney disease, or unspecified chronic kidney disease; Z79.84 Long term (current) use of oral hypoglycemic drugs; Z79.899 Other long term (current) drug therapy; G40.909 Epilepsy, unspecified, not intractable, without status epilepticus; Z90.710 Acquired absence of both cervix and uterus
CPT/HCPCS: 36415; 71045; 76770; 80048; 80053; 81001; 82550; 82553; 82728; 83036; 83540; 83550; 83605; 83735; 83880; 84484; 85025; 85610; 85730; 87040; 87070; 87086; 87205; 87502; 93005; 94640; 94660; 94760; 96360; 96365; 96367; 96375; 99291

== ENCOUNTER → 2017-08-06 | Outpatient (CLI) | payer OTHER ==
--- NOTE | 2017-08-06 14:26 | US ---
EXAMINATION TYPE: US venous doppler duplex LE LT DATE OF EXAM: 08/06/2017 1:35 PM COMPARISON: NONE CLINICAL HISTORY: M79.662 PAIN IN LT LOWER LIMB. pain in left limb x 1 week after a fall SIDE PERFORMED: Left TECHNIQUE: The lower extremity deep venous system is examined utilizing real time linear array sonog pio with graded compression, doppler sonography and color-flow sonography. VESSELS IMAGED: External Iliac Vein (EIV) Common Femoral Vein Deep Femoral Vein Greater Saphenous Vein * Femoral Vein Popliteal Vein Small Saphenous Vein * Proximal Calf Veins (* superficial vessels) Left Leg: Appears negative for DVT, rouleaux flow was noted within vein from groin to knee *office notified of negative findings IMPRESSION: 1. No definite thrombosis at the time of this examination left lower extremity. Follow-up can be perf ormed as clinically indicated
== END | disposition home or self-care (01) ==
LOC: RADUSWWP 12:55
PROVIDERS: ATTEND Family Medicine
DX: M79.662 Pain in left lower leg (principal); Z88.0 Allergy status to penicillin

== ENCOUNTER 2017-12-22 20:52 | Inpatient (IN) | payer OTHER ==
[2017-12-22] MEDS ORDERED: IPRATROPIUM-ALBUTEROL 3 ML NEB INHALATION STA (21:34)
--- NOTE | 2017-12-22 21:36 | ED ---
SOB HPI - General Chief Complaint: Shortness of Breath Stated Complaint: COPD Time Seen by Provider: 12/22/17 21:32 Source: patient Mode of arrival: ambulatory Limitations: no limitations - History of Present Illness Initial Comments: This patient is a 62-year-old woman with history of COPD who states that she has been having a flareup of her symptoms for going on about the past 1 week. She states that also for about that time she has been having pains to the right side of her chest. She states that nearly week ago she had a coughing episode and felt something pop there and has had pain in the right side of the chest at about the midaxillary line. She states the pain is aching, and is made worse if she takes a deep breath in or coughs. Pain is also worsened by pressing on the ribs. She has not noted relieving factors. She denies any change in sputum. She has not noted fever or chills. No change in urination or bowel movements. No leg pain or swelling. MD Complaint: shortness of breath, cough, pain with inspiration Onset/Timin -: week(s) Severity: moderate Quality: aching Consistency: constant Improves With: nothing Worsens With: movement, coughing, inspiration Known History Of: COPD Associated Symptoms: pain with inspiration, cough - Related Data Home Oxygen Therapy: Yes Home Oxygen Amount: 4 Liters Home Medications Medication Instructions Recorded Confirmed Phenytoin Sodium Extended 100 mg PO TID 11/29/15 09/05/17 [Dilantin] Sertraline [Zoloft] 100 mg PO BID 11/29/15 09/05/17 Albuterol Inhaler [Ventolin Hfa 2 puff INHALATION RT-Q6H PRN 07/22/17 09/05/17 Inhaler] Folic Acid 1 mg PO DAILY 07/22/17 09/05/17 QUEtiapine FUMARATE 150 mg PO HS@199907/22/17 09/05/17 metFORMIN HCL [Glucophage] 500 mg PO BID 07/22/17 09/05/17 Albuterol Nebulized [Ventolin 2.5 mg INHALATION RT-QID PRN 09/05/17 09/05/17 Nebulized] Gemfibrozil [Lopid] 1,200 mg PO HS 09/05/17 09/05/17 HYDROcodone/APAP 10-325MG [[place] 1 tab PO TID PRN 09/05/17 09/05/17 10-325] Omeprazole [PriLOSEC] 20 mg PO BID 09/05/17 09/05/17 predniSONE 2.5 mg PO DAILY 09/05/17 09/05/17 Previous Rx's Medication Instructions Recorded Ipratropium-Albuterol Nebulize 3 ml INHALATION Q6HR #30 neb 09/05/17 [Duoneb 0.5 mg-3 mg/3 ml Soln] Levofloxacin [Levaquin] 500 mg PO DAILY #7 tab 09/05/17 predniSONE 50 mg PO DAILY #5 tab 09/05/17 Allergies Allergy/AdvReac Type Severity Reaction Status Date / Time Penicillins Allergy Mild Swelling Verified 12/22/17 21:07 Review of Systems ROS Statement: Those systems with pertinent positive or pertinent negative responses have been documented in the HPI. ROS Other: All systems not noted in ROS Statement are negative. Constitutional: Denies: fever, chills, weakness Respiratory: Reports: as per HPI, cough, dyspnea, wheezes. Denies: hemoptysis Cardiovascular: Reports: as per HPI, chest pain, dyspnea on exertion. Denies: palpitations, orthopnea, edema, syncope Gastrointestinal: Denies: abdominal pain, nausea, vomiting, diarrhea, constipation Genitourinary: Denies: dysuria, hematuria Musculoskeletal: Denies: back pain Skin: Denies: rash Neurological: Denies: headache, weakness Past Medical History Past Medical History: COPD, Diabetes Mellitus, Hyperlipidemia, Hypertension, Seizure Disorder History of Any Multi-Drug Resistant Organisms: None Reported Past Surgical History: Hysterectomy Past Anesthesia/Blood Transfusion Reactions: Unable to Obtain Past Psychological History: Anxiety, Bipolar, Depression Smoking Status: Former smoker Past Alcohol Use History: None Reported Past Drug Use History: Marijuana, Prescription Drug Abuse - Past Family History Mother Family Medical History: Diabetes Mellitus, Hypertension Father Family Medical History: Hypertension General Exam Limitations: no limitations General appearance: alert, in no apparent distress Head exam: Present: atraumatic, normocephalic Eye exam: Present: normal appearance. Absent: scleral icterus, conjunctival injection ENT exam: Present: normal oropharynx Respiratory exam: Present: normal lung sounds bilaterally, wheezes, chest wall tenderness. Absent: respiratory distress, rales, rhonchi, stridor, accessory muscle use, decreased breath sounds, prolonged expiratory Cardiovascular Exam: Present: regular rate, normal rhythm, normal heart sounds. Absent: systolic murmur, diastolic murmur, rubs, gallop GI/Abdominal exam: Present: soft. Absent: distended, tenderness, guarding, rebound, rigid, mass Extremities exam: Present: normal inspection, normal capillary refill. Absent: pedal edema, calf tenderness Back exam: Present: normal inspection. Absent: CVA tenderness (R), CVA tenderness (L) Neurological exam: Present: alert Skin exam: Present: warm, dry, intact, pallor. Absent: rash Course Vital Signs 12/22/17 12/22/17 12/22/17 21:02 22:06 22:15 Temperature 98.5 F Pulse Rate 82 81 81 Respiratory 22 Rate Blood Pressure 185/76 O2 Sat by Pulse 96 Oximetry 12/22/17 12/23/17 23:19 00:52 Temperature 98.4 F 98.1 F Pulse Rate 82 78 Respiratory 20 16 Rate Blood Pressure 147/95 178/93 O2 Sat by Pulse 98 98 Oximetry Medical Decision Making - Lab Data Result diagrams: 12/22/17 21:40 12/22/17 21:40 Lab Results 12/22/17 12/22/17 12/22/17 Range/Units 21:40 21:40 21:40 WBC 3.9 (3.8-10.6) k/uL RBC 3.28 L (3.80-5.40) m/uL Hgb 10.1 L (11.4-16.0) gm/dL Hct 31.7 L (34.0-46.0) % MCV 96.6 (80.0-100.0) fL MCH 30.6 (25.0-35.0) pg MCHC 31.7 (31.0-37.0) g/dL RDW 14.9 (11.5-15.5) % Plt Count 225 (150-450) k/uL Neutrophils % 63 % Lymphocytes % 23 % Monocytes % 7 % Eosinophils % 4 % Basophils % 0 % Neutrophils # 2.5 (1.3-7.7) k/uL Lymphocytes # 0.9 L (1.0-4.8) k/uL Monocytes # 0.3 (0-1.0) k/uL Eosinophils # 0.2 (0-0.7) k/uL Basophils # 0.0 (0-0.2) k/uL Hypochromasia Slight PT (9.0-12.0) sec INR (<1.2) APTT (22.0-30.0) sec D-Dimer (<0.60) mg/L FEU Sodium 143 (137-145) mmol/L Potassium 5.2 H (3.5-5.1) mmol/L Chloride 117 H (98-107) mmol/L Carbon Dioxide 15 L (22-30) mmol/L Anion Gap 11 mmol/L BUN 38 H (7-17) mg/dL Creatinine 2.50 H (0.52-1.04) mg/dL Est GFR (CKD-EPI)AfAm 23 (>60 ml/min/1.73 sqM) Est GFR (CKD-EPI)NonAf 20 (>60 ml/min/1.73 sqM) Glucose 107 H (74-99) mg/dL Calcium 8.5 (8.4-10.2) mg/dL Total Bilirubin 0.3 (0.2-1.3) mg/dL AST 13 L (14-36) U/L ALT 16 (9-52) U/L Alkaline Phosphatase 281 H (38-126) U/L Total Creatine Kinase 59 (30-135) U/L CK-MB (CK-2) 1.6 (0.0-2.4) ng/mL CK-MB (CK-2) Rel Index 2.7 Troponin I 0.016 (0.000-0.034) ng/mL NT-Pro-B Natriuret Pep pg/mL Total Protein 6.6 (6.3-8.2) g/dL Albumin 3.9 (3.5-5.0) g/dL 12/22/17 12/22/17 Range/Units 21:40 21:40 WBC (3.8-10.6) k/uL RBC (3.80-5.40) m/uL Hgb (11.4-16.0) gm/dL Hct (34.0-46.0) % MCV (80.0-100.0) fL MCH (25.0-35.0) pg MCHC (31.0-37.0) g/dL RDW (11.5-15.5) % Plt Count (150-450) k/uL Neutrophils % % Lymphocytes % % Monocytes % % Eosinophils % % Basophils % % Neutrophils # (1.3-7.7) k/uL Lymphocytes # (1.0-4.8) k/uL Monocytes # (0-1.0) k/uL Eosinophils # (0-0.7) k/uL Basophils # (0-0.2) k/uL Hypochromasia PT 9.9 (9.0-12.0) sec INR 1.0 (<1.2) APTT 21.6 L (22.0-30.0) sec D-Dimer 0.55 (<0.60) mg/L FEU Sodium (137-145) mmol/L Potassium (3.5-5.1) mmol/L Chloride (98-107) mmol/L Carbon Dioxide (22-30) mmol/L Anion Gap mmol/L BUN (7-17) mg/dL Creatinine (0.52-1.04) mg/dL Est GFR (CKD-EPI)AfAm (>60 ml/min/1.73 sqM) Est GFR (CKD-EPI)NonAf (>60 ml/min/1.73 sqM) Glucose (74-99) mg/dL Calcium (8.4-10.2) mg/dL Total Bilirubin (0.2-1.3) mg/dL AST (14-36) U/L ALT (9-52) U/L Alkaline Phosphatase (38-126) U/L Total Creatine Kinase (30-135) U/L CK-MB (CK-2) (0.0-2.4) ng/mL CK-MB (CK-2) Rel Index Troponin I (0.000-0.034) ng/mL NT-Pro-B Natriuret Pep 2430 pg/mL Total Protein (6.3-8.2) g/dL Albumin (3.5-5.0) g/dL - EKG Data -: EKG Interpreted by Sd EKG shows normal: sinus rhythm, axis (Normal), intervals (MT interval 174 ms, normal. QTC 507 ms, normal. QRS duration 142 ms, prolonged consistent with the left bundle-branch block), QRS complexes ((Bundle-branch block) Rate: normal (Rate 82 bpm) When compared to previous EKG there are: other (Similar to EKG from August 2017) Disposition Clinical Impression: Pneumonia, Rib fracture, COPD (chronic obstructive pulmonary disease) Disposition: ADMITTED IP TO THIS HOSP Condition: Fair Referrals: Adal Mari Jr, [Primary Care Provider] - 1-2 days
[2017-12-22 21:57] LABS: Basophils % (A) 0 %; Eosinophils # (A) 0.2 k/uL (0-0.7); Eosinophils % (A) 4 %; HCT 31.7 % (34.0-46.0); HGB 10.1 gm/dL (11.4-16.0); Hypochromasia Slight; Lymphocytes # (A) 0.9 k/uL (1.0-4.8); Lymphocytes % (A) 23 %; MCH 30.6 pg (25.0-35.0); MCHC 31.7 g/dL (31.0-37.0); MCV 96.6 fL (80.0-100.0); Mean Platelet Volume 7.3; Monocytes # (A) 0.3 k/uL (0-1.0); Monocytes % (A) 7 %; Neutrophils # (A) 2.5 k/uL (1.3-7.7); Neutrophils % (A) 63 %; Platelet Count 225 k/uL (150-450); RBC 3.28 m/uL (3.80-5.40); RDW 14.9 % (11.5-15.5); WBC 3.9 k/uL (3.8-10.6)
[2017-12-22 22:08] LABS: Albumin 3.9 g/dL (3.5-5.0); Calcium 8.5 mg/dL (8.4-10.2); Potassium 5.2 mmol/L (3.5-5.1); Total Bilirubin 0.3 mg/dL (0.2-1.3); Total Protein 6.6 g/dL (6.3-8.2)
--- NOTE | 2017-12-22 22:13 | XR ---
EXAMINATION TYPE: XR chest 2V DATE OF EXAM: 12/22/2017 COMPARISON: Chest radiograph 09/05/2017 HISTORY: Dyspnea TECHNIQUE: Frontal and lateral views of the chest are obtained. FINDINGS: Right lower lung scarring versus atelectasis is again evident. There is abnormal linear de nsity along the middle right lung which appears slightly worse in the interval. No pneumothorax. Left lung is clear. The cardiac silhouette size is within normal limits. There is also narrowing of the a nterior costal space of multiple ribs on the right. IMPRESSION: Increased opacities which may represent scarring versus atelectasis throughout the right lower and ri ght medial lung. Etiology is uncertain. CT of the thorax should be considered.
[2017-12-22 22:18] LABS: D-Dimer 0.55 mg/L FEU (<0.60); Prothrombin Time 9.9 sec (9.0-12.0)
[2017-12-22 22:28] LABS: Creatine Kinase MB 1.6 ng/mL (0.0-2.4); Troponin I 0.016 ng/mL (0.000-0.034)
[2017-12-22 22:44] LABS: Partial Thromboplastin Time 21.6 sec (22.0-30.0)
[2017-12-22] MEDS ORDERED: HYDROcodone/APAP 5-325MG 1 EACH TAB PO STA (23:22)
--- NOTE | 2017-12-23 00:24 | CT ---
EXAMINATION TYPE: CT chest wo con DATE OF EXAM: 12/22/2017 COMPARISON: None HISTORY: SOB CT DLP: 482.30 mGycm. Automated Exposure Control for Dose Reduction was Utilized. TECHNIQUE: CT scan of the thorax is performed without IV contrast. FINDINGS: There is diffuse pulmonary emphysema. There are multiple old right-sided rib fractures. There are acu te fractures of the right posterior ninth and sixth ribs. There is mild pleural thickening on the rig ht side with subpleural density consistent with pleural and pulmonary scarring. There is some mild in filtrate at the right posterior lung base. The left lung is clear of consolidation. Heart size is nor mal. There is no mediastinal adenopathy. There are no hilar masses. There is some elevation of the ri ght hemidiaphragm. Ascending aorta measures 3.6 cm. There is no evidence of aneurysm. There is no per icardial effusion. 1 cm right renal calculus is noted. There is 2 cm rounded low-density area in the tail of the pancreas that could be a pseudocyst. This is unchanged compared to abdomen CT scan of 10/26. Right renal calculus is increased compared to old exam. IMPRESSION: Emphysema. Right-sided pleural and pulmonary scarring and atelectasis. Acute pneumonia in the right lower lobe is possible. Multiple old rib fractures. There are also some acute right lens grinder and polisher ior rib fractures without any callus.
[2017-12-23] MEDS ORDERED: cefTRIAXone IN SWFI 1,000 MG/10 ML SYRINGE IVP STA (00:27)
[2017-12-23] MEDS ORDERED: AZITHROMYCIN 500 MG TAB PO STA (00:27)
[2017-12-23] MEDS ORDERED: ALBUTEROL NEBULIZED 2.5 MG/3 ML INHALATION PRN (01:21)
[2017-12-23] MEDS ORDERED: PNEUMONIA PROTOCOL UTILIZED 1 EACH MISC PO PRN (01:21)
[2017-12-23 03:01] VITALS: BMI 28.3
[2017-12-23] MEDS: HYDROcodone/APAP 10-325MG 1 EACH TAB PO PRN ×3 (06:24→23:35)
[2017-12-23 07:29] LABS: Glucose,Whole Blood 107 mg/dL (75-99)
[2017-12-23] MEDS: IPRATROPIUM-ALBUTEROL 3 ML NEB INHALATION SCH ×5 (07:33→19:09)
[2017-12-23] MEDS: PHENYTOIN SODIUM EXTENDED 100 MG CAP PO SCH ×3 (08:05→20:08)
[2017-12-23] MEDS: FOLIC ACID 1 MG TAB PO SCH (08:05)
[2017-12-23] MEDS: PANTOPRAZOLE 40 MG TABLET PO SCH ×2 (08:05→21:55)
[2017-12-23] MEDS: SERTRALINE 100 MG TAB PO SCH ×2 (08:05→20:08)
[2017-12-23] MEDS: SODIUM CHLORIDE 0.9% 1,000 ML IV SCH (08:05)
[2017-12-23] MEDS ORDERED: predniSONE 50 MG TAB PO SCH (09:00)
[2017-12-23] MEDS ORDERED: metFORMIN 500 MG TAB PO SCH (09:00)
[2017-12-23 09:58] LABS: Basophils % (A) 0 %; Eosinophils # (A) 0.2 k/uL (0-0.7); Eosinophils % (A) 3 %; HCT 31.3 % (34.0-46.0); HGB 9.9 gm/dL (11.4-16.0); Hypochromasia Slight; Lymphocytes # (A) 0.9 k/uL (1.0-4.8); Lymphocytes % (A) 16 %; MCH 30.8 pg (25.0-35.0); MCHC 31.8 g/dL (31.0-37.0); MCV 96.8 fL (80.0-100.0); Mean Platelet Volume 7.4; Monocytes # (A) 0.3 k/uL (0-1.0); Monocytes % (A) 5 %; Neutrophils # (A) 4.5 k/uL (1.3-7.7); Neutrophils % (A) 75 %; Platelet Count 225 k/uL (150-450); RBC 3.23 m/uL (3.80-5.40); WBC 5.9 k/uL (3.8-10.6)
[2017-12-23 10:17] LABS: Albumin 3.8 g/dL (3.5-5.0); Calcium 8.6 mg/dL (8.4-10.2); Total Bilirubin 0.2 mg/dL (0.2-1.3); Total Protein 6.4 g/dL (6.3-8.2)
[2017-12-23] MEDS: LORATADINE 10 MG TAB PO SCH (10:30)
[2017-12-23 12:10] LABS: Glucose,Whole Blood 135 mg/dL (75-99)
[2017-12-23] MEDS: SODIUM BICARBONATE TAB 650 MG TAB PO SCH ×3 (12:15→21:56)
[2017-12-23] MEDS: methylPREDNISolone SOD SUCCI 125 MG/2 ML VIAL IV SCH ×2 (15:53→23:35)
--- NOTE | 2017-12-23 16:42 | P.CNPUL ---
History of Present Illness Consult date: 12/23/17 Reason for consult: dyspnea, cough, COPD, abnormal CXR/CT, other Chief complaint: Dyspnea, cough, right-sided chest wall pain, rib fractures History of present illness: Brie is a 62-year-old patient of Dr. Mari who presented to the emergency department on 12/22/2017 for evaluation of increased shortness of breath, cough , wheezing. Patient was having severe coughing spells at home, she states a week ago she had a coughing episode and felt something pop on the right side of her chest at about the mid axillary line. The pain is aching, and worse with deep inspiration, coughing or palpation. Denied any fever or chills, denied any change in her sputum color. Has been afebrile while in the hospital. X- ray was completed in the emergency department showed increased opacities which may represent scarring versus atelectasis throughout the right lower and right medial lung. Was also narrowing of the anterior costal space of multiple ribs on the right. Chest CT showed emphysema, right-sided pleural and pulmonary scarring and atelectasis. Multiple old rib fractures were noted, there was also acute right posterior rib fracture without any callus. Lab work did not show any evidence of leukocytosis, WBC of 3.9, hemoglobin is 10.1, d-dimer was negative at 0.55, potassium is 5.2, chloride is 117, CO2 was 15, B1 is 38, creatinine is 2.5, alkaline phosphatase was 281, cardiac enzymes were negative 1, proBNP was elevated 2430. Patient's past medical history is positive for COPD, diabetes mellitus type 2, hypertension, hyperlipidemia, seizure disorder, anxiety, bipolar, former smoker, former marijuana use. Patient states she no longer smokes or uses marijuana. Sees Dr. Benjamin in the pulmonary office for her severe oxygen-dependent COPD. Her maintenance inhalers include Tudorza Pressair, Ventolin inhaler. She was started on empiric antibiotics in the form of Zithromax and Rocephin, nebulized bronchodilators, and IV steroids. Review of Systems All systems: negative Constitutional: Denies chills, Denies fever Eyes: denies blurred vision, denies pain Ears, nose, mouth and throat: Denies headache, Denies sore throat Cardiovascular: Reports decreased exercise tolerance ( ), Denies chest pain, Denies shortness of breath Respiratory: Reports cough with sputum, Reports dyspnea, Reports home oxygen, Reports pain on inspiration, Reports respiratory infections, Reports wheezing, Denies cough Gastrointestinal: Denies abdominal pain, Denies diarrhea, Denies nausea, Denies vomiting Genitourinary: Denies dysuria, Denies hematuria Musculoskeletal: Denies myalgias Integumentary: Denies pruritus, Denies rash Neurological: Denies numbness, Denies weakness Psychiatric: Denies anxiety, Denies depression Endocrine: Denies fatigue, Denies weight change Past Medical History Past Medical History: COPD, Diabetes Mellitus, Hyperlipidemia, Hypertension, Seizure Disorder History of Any Multi-Drug Resistant Organisms: None Reported Past Surgical History: Hysterectomy Past Anesthesia/Blood Transfusion Reactions: Unable to Obtain Past Psychological History: Anxiety, Bipolar, Depression Smoking Status: Never smoker Past Alcohol Use History: None Reported Past Drug Use History: Marijuana, Prescription Drug Abuse - Past Family History Mother Family Medical History: Diabetes Mellitus, Hypertension Father Family Medical History: Hypertension Medications and Allergies Home Medications Medication Instructions Recorded Confirmed Type Phenytoin Sodium Extended 100 mg PO TID 11/29/15 12/23/17 History [Dilantin] Sertraline [Zoloft] 200 mg PO DAILY 11/29/15 12/23/17 History Albuterol Inhaler [Ventolin Hfa 2 puff INHALATION RT-Q6H PRN 07/22/17 12/23/17 History Inhaler] Folic Acid 1 mg PO DAILY 07/22/17 12/23/17 History QUEtiapine FUMARATE 150 mg PO HS@199907/22/17 12/23/17 History Gemfibrozil [Lopid] 1,200 mg PO HS 09/05/17 12/23/17 History HYDROcodone/APAP 10-325MG [[place] 1 tab PO TID PRN 09/05/17 12/23/17 History 10-325] Aclidinium [place] [Tudorza 1 puff PO RT-BID 12/23/17 12/23/17 History Pressair] Bisoprolol-Hctz 5-6.25 mg [[place] 1 tab PO DAILY 12/23/17 12/23/17 History 5-6.25] Cyclobenzaprine [Flexeril] 5 mg PO BID PRN 12/23/17 12/23/17 History Primidone [Mysoline] 50 mg PO BID 12/23/17 12/23/17 History busPIRone HCL [Buspar] 7.5 mg PO BID 12/23/17 12/23/17 History metFORMIN HCL 1,000 mg PO BID 12/23/17 12/23/17 History Allergies Allergy/AdvReac Type Severity Reaction Status Date / Time Penicillins Allergy Mild Swelling Verified 12/22/17 21:07 Physical Exam Vitals: Vital Signs Temp Pulse Pulse Resp BP BP BP 12/23/17 15:30 92 12/23/17 15:20 90 12/23/17 15:00 99.7 F H 101 H 20 128/86 12/23/17 11:47 88 12/23/17 11:39 88 12/23/17 07:35 12/23/17 06:00 97.4 F L 89 20 137/84 12/23/17 02:39 98.2 F 80 20 160/107 12/23/17 02:26 97 F L 97 18 159/70 12/23/17 00:52 98.1 F 78 16 178/93 12/22/17 23:19 98.4 F 82 20 147/95 12/22/17 22:15 81 12/22/17 22:06 81 12/22/17 21:02 98.5 F 82 22 185/76 Pulse Ox 12/23/17 15:30 12/23/17 15:20 98 12/23/17 15:00 97 12/23/17 11:47 12/23/17 11:39 12/23/17 07:35 94 L 12/23/17 06:00 96 12/23/17 02:39 99 12/23/17 02:26 98 12/23/17 00:52 98 12/22/17 23:19 98 12/22/17 22:15 12/22/17 22:06 12/22/17 21:02 96 Intake and Output 12/23/17 12/23/17 12/23/17 06:59 14:59 22:59 Intake Total 200 Balance 200 Intake: Oral 200 Other: # Voids 1 2 Weight 75 kg GENERAL EXAM: Alert, pleasant 62-year-old white female, comfortable in no apparent distress. HEAD: Normocephalic/atraumatic. EYES: Normal reaction of pupils, equal size. Conjunctiva pink, sclera white. NOSE: Clear with pink turbinates. THROAT: No erythema or exudates. NECK: No masses, no JVD, no thyroid enlargement, no adenopathy. CHEST: No chest wall deformity. Symmetrical expansion. LUNGS: Diminished breath sounds,prolongation of respiratory phase, and faint wheezes CVS: Regular rate and rhythm, normal S1 and S2, no gallops, no murmurs, no rubs ABDOMEN: Soft, nontender. No hepatosplenomegaly, normal bowel sounds, no guarding or rigidity. EXTREMITIES: No clubbing, no edema, no cyanosis, 2+ pulses and upper and lower extremities. MUSCULOSKELETAL: Muscle strength and tone normal. SPINE: No scoliosis or deformity SKIN: No rashes CENTRAL NERVOUS SYSTEM: Alert and oriented -3. No focal deficits, tone is normal in all 4 extremities. PSYCHIATRIC: Alert and oriented -3. Appropriate affect. Intact judgment and insight. Results - Laboratory Findings CBC and BMP: 12/23/17 09:31 12/23/17 09:31 PT/INR, D-dimer PT 9.9 sec (9.0-12.0) 12/22/17 21:40 INR 1.0 (<1.2) 12/22/17 21:40 D-Dimer 0.55 mg/L FEU (<0.60) 12/22/17 21:40 Abnormal lab findings: Abnormal Labs 12/22/17 12/22/17 12/22/17 21:40 21:40 21:40 RBC 3.28 L Hgb 10.1 L Hct 31.7 L Lymphocytes # 0.9 L APTT 21.6 L Potassium 5.2 H Chloride 117 H Carbon Dioxide 15 L BUN 38 H Creatinine 2.50 H Glucose 107 H POC Glucose (mg/dL) AST 13 L Alkaline Phosphatase 281 H 12/23/17 12/23/17 12/23/17 07:21 09:31 09:31 RBC 3.23 L Hgb 9.9 L Hct 31.3 L Lymphocytes # 0.9 L APTT Potassium Chloride 117 H Carbon Dioxide 14 L BUN 35 H Creatinine 2.39 H Glucose 162 H POC Glucose (mg/dL) 107 H AST 12 L Alkaline Phosphatase 279 H 12/23/17 11:52 RBC Hgb Hct Lymphocytes # APTT Potassium Chloride Carbon Dioxide BUN Creatinine Glucose POC Glucose (mg/dL) 135 H AST Alkaline Phosphatase - Diagnostic Findings Chest x-ray: report reviewed, image reviewed CT scan - chest: report reviewed, image reviewed Additional studies: EKG reviewed Assessment and Plan Plan: Assessment: #1. Acute exacerbation of chronic obstructive pulmonary disease, related to a possible suspected right lung pneumonia, community- acquired #2. Right-sided rib fracture secondary to severe coughing spells, and a secondary right-sided chest pain #3. Non-anion gap metabolic acidosis secondary to chronic kidney disease #4. Severe oxygen-dependent COPD #5. History of nicotine dependence currently in remission, patient carries over [id number] smoking history #6. Hypertension, hyperlipidemia #7. Diabetes mellitus type 2 #8. Chronic kidney disease #9. Seizure disorder #10. Anxiety, depression Plan: Continue medical treatment, continue nebulized bronchodilators, empiric antibiotics, IV steroids. Continue pain control. Patient is noted to be in metabolic acidosis, she will need bicarbonate replacement, start on oral sodium bicarbonate 650 mg 3 times a day. Sputum culture is pending. We will recheck blood work in the morning. I performed a history & physical examination of the patient and discussed their management with my nurse practitioner, Carol Chatman. I reviewed the nurse practitioner's note and agree with the documented findings and plan of care. Lung sounds are positive for diminished breath sounds bilaterally, with faint wheezes on forced exhale maneuver. The findings and the impression was discussed with the patient. I attest to the documentation by the nurse practitioner. Time with Patient: Greater than 30
[2017-12-23] MEDS: INSULIN ASPART 100 UNIT/ML 1 ML 10 ML VIAL SQ SCH ×2 (17:29→21:55)
[2017-12-23 17:37] LABS: Glucose,Whole Blood 133 mg/dL (75-99)
[2017-12-23] MEDS: QUEtiapine 50 MG TAB PO SCH (20:07)
[2017-12-23] MEDS: GEMFIBROZIL 600 MG TAB PO SCH (20:07)
[2017-12-23 21:53] LABS: Hemoglobin A1C 4.9 % (4.0-6.0)
[2017-12-23] MEDS: MONTELUKAST 10 MG TAB PO SCH (21:55)
[2017-12-23 22:00] LABS: Glucose,Whole Blood 109 mg/dL (75-99)
[2017-12-23] MEDS: AZITHROMYCIN 500 MG TAB PO SCH (23:35)
[2017-12-24] MEDS: cefTRIAXone IN SWFI 1,000 MG/10 ML SYRINGE IVP SCH (01:04)
[2017-12-24] MEDS: SODIUM CHLORIDE 0.9% 1,000 ML IV SCH ×2 (05:15→23:04)
--- NOTE | 2017-12-24 07:18 | P.HPIM ---
History of Present Illness H&P Date: 12/23/17 Chief Complaint: shortness of breath 62-year-old female who presented to the emergency room with a chief complaint of shortness of breath. Patient reports SOB has been present for about a week. She also reports pain to the right side of her chest and states she felt something "pop" when she was coughing recently. She reports coughing but denies significant sputum production. Denies fever or chills. Denies nausea or vomiting. The patient has a history of COPD and is oxygen dependent at home with oxygen via NC at 4L. She states she does not see a lung doctor on an outpatient basis. She does report a heavy smoking history in the past but denies current nicotine use. She also has a history of diabetes mellitus, hyperlipidemia, hypertension, seizure disorder, anxiety, bipolar, and depression. Chest x-ray revealed increased opacities which may represent scarring versus atelectasis throughout the right lower and right medial lung. CT of the thorax was recommended. The patient then underwent a CT of the chest which revealed emphysema, right-sided pleural and pulmonary scarring and atelectasis. Acute pneumonia in the right lower lobe as possible. Multiple old rib fractures. Acute right posterior rib fractures of 6th and 9th rib. Laboratory data reveals WBC of 3.9. Hemoglobin 10.1. Bili count 225. Potassium 5.2. Sodium 143. Chloride 117. Carbon dioxide 15. BUN 38. Creatinine 2.5. GFR 20. Glucose 107. AST 13. ALT 16. Alkaline phosphatase 281. Troponin 0.016. BNP 2430. The patient was admitted to the hospital under the care of Dr. Marie. Review of Systems Those systems with pertinent positive or pertinent negative responses have been documented in the HPI Past Medical History Past Medical History: COPD, Diabetes Mellitus, Hyperlipidemia, Hypertension, Seizure Disorder History of Any Multi-Drug Resistant Organisms: None Reported Past Surgical History: Hysterectomy Past Anesthesia/Blood Transfusion Reactions: Unable to Obtain Past Psychological History: Anxiety, Bipolar, Depression Smoking Status: Never smoker Past Alcohol Use History: None Reported Past Drug Use History: Marijuana, Prescription Drug Abuse - Past Family History Mother Family Medical History: Diabetes Mellitus, Hypertension Father Family Medical History: Hypertension Medications and Allergies Home Medications Medication Instructions Recorded Confirmed Type Phenytoin Sodium Extended 100 mg PO TID 11/29/15 12/23/17 History [Dilantin] Sertraline [Zoloft] 200 mg PO DAILY 11/29/15 12/23/17 History Albuterol Inhaler [Ventolin Hfa 2 puff INHALATION RT-Q6H PRN 07/22/17 12/23/17 History Inhaler] Folic Acid 1 mg PO DAILY 07/22/17 12/23/17 History QUEtiapine FUMARATE 150 mg PO [id number]/17 12/23/17 History Gemfibrozil [Lopid] 1,200 mg PO HS 09/05/17 12/23/17 History HYDROcodone/APAP 10-325MG [[place] 1 tab PO TID PRN 09/05/17 12/23/17 History 10-325] Aclidinium [place] [Tudorza 1 puff PO RT-BID 12/23/17 12/23/17 History Pressair] Bisoprolol-Hctz 5-6.25 mg [Ziac 1 tab PO DAILY 12/23/17 12/23/17 History 5-6.25] Cyclobenzaprine [Flexeril] 5 mg PO BID PRN 12/23/17 12/23/17 History Primidone [Mysoline] 50 mg PO BID 12/23/17 12/23/17 History busPIRone HCL [Buspar] 7.5 mg PO BID 12/23/17 12/23/17 History metFORMIN HCL 1,000 mg PO BID 12/23/17 12/23/17 History Allergies Allergy/AdvReac Type Severity Reaction Status Date / Time Penicillins Allergy Mild Swelling Verified 12/22/17 21:07 Physical Exam Vitals: Vital Signs Temp Pulse Pulse Resp BP BP BP 12/23/17 11:47 88 12/23/17 11:39 88 12/23/17 07:35 12/23/17 06:00 97.4 F L 89 20 137/84 12/23/17 02:39 98.2 F 80 20 160/107 12/23/17 02:26 97 F L 97 18 159/70 12/23/17 00:52 98.1 F 78 16 178/93 12/22/17 23:19 98.4 F 82 20 147/95 12/22/17 22:15 81 12/22/17 22:06 81 12/22/17 21:02 98.5 F 82 22 185/76 Pulse Ox 12/23/17 11:47 12/23/17 11:39 12/23/17 07:35 94 L 12/23/17 06:00 96 12/23/17 02:39 99 12/23/17 02:26 98 12/23/17 00:52 98 12/22/17 23:19 98 12/22/17 22:15 12/22/17 22:06 12/22/17 21:02 96 Intake and Output 12/22/17 12/23/17 12/23/17 22:59 06:59 14:59 Other: # Voids 1 Weight 75.841 kg 75 kg GENERAL: This is a 62-year-old female in no apparent distress at the time of examination. Pleasant and cooperative. HEENT: Head is atraumatic, normocephalic. Pupils are equal, round, and reactive to light. Sclerae anicteric. Conjunctivae are clear. Mucus membranes of the mouth are moist. Neck is supple. RESPIRATORY: Lungs are coarse to auscultation. No wheezes, rales, or rhonchi. No use of accessory muscles. Patient maintaining oxygen saturation greater than 92% on 4 L nasal cannula. Pain upon palpation of right chest wall. CARDIOVASCULAR: Regular rate and rhythm. S1 and S2 noted. No systolic or diastolic murmur auscultated. No JVD noted. No S3 or S4 noted. GASTROINTESTINAL: No distention noted. Abdomen soft and round. Normal active bowel sounds auscultated x 4 quadrants. No pain or tenderness noted upon palpation. INTEGUMENTARY: No cyanosis. No jaundice. No rashes noted. No cellulitis noted. EXTREMITIES: 2+ peripheral pulses. No evidence of peripheral edema. No calf tenderness noted. NEUROLOGIC: Cranial nerves II-XII intact. PSYCHIATRIC: Awake, alert, and oriented X 3. Appropriate affect. Intact judgement and insight. Results CBC & Chem 7: 12/23/17 09:31 12/23/17 09:31 Labs: Abnormal Lab Results - Last 24 Hours (Table) 12/22/17 12/22/17 12/22/17 Range/Units 21:40 21:40 21:40 RBC 3.28 L (3.80-5.40) m/uL Hgb 10.1 L (11.4-16.0) gm/dL Hct 31.7 L (34.0-46.0) % Lymphocytes # 0.9 L (1.0-4.8) k/uL APTT 21.6 L (22.0-30.0) sec Potassium 5.2 H (3.5-5.1) mmol/L Chloride 117 H (98-107) mmol/L Carbon Dioxide 15 L (22-30) mmol/L BUN 38 H (7-17) mg/dL Creatinine 2.50 H (0.52-1.04) mg/dL Glucose 107 H (74-99) mg/dL POC Glucose (mg/dL) (75-99) mg/dL AST 13 L (14-36) U/L Alkaline Phosphatase 281 H (38-126) U/L 12/23/17 12/23/17 12/23/17 Range/Units 07:21 09:31 09:31 RBC 3.23 L (3.80-5.40) m/uL Hgb 9.9 L (11.4-16.0) gm/dL Hct 31.3 L (34.0-46.0) % Lymphocytes # 0.9 L (1.0-4.8) k/uL APTT (22.0-30.0) sec Potassium (3.5-5.1) mmol/L Chloride 117 H (98-107) mmol/L Carbon Dioxide 14 L (22-30) mmol/L BUN 35 H (7-17) mg/dL Creatinine 2.39 H (0.52-1.04) mg/dL Glucose 162 H (74-99) mg/dL POC Glucose (mg/dL) 107 H (75-99) mg/dL AST 12 L (14-36) U/L Alkaline Phosphatase 279 H (38-126) U/L 12/23/17 Range/Units 11:52 RBC (3.80-5.40) m/uL Hgb (11.4-16.0) gm/dL Hct (34.0-46.0) % Lymphocytes # (1.0-4.8) k/uL APTT (22.0-30.0) sec Potassium (3.5-5.1) mmol/L Chloride (98-107) mmol/L Carbon Dioxide (22-30) mmol/L BUN (7-17) mg/dL Creatinine (0.52-1.04) mg/dL Glucose (74-99) mg/dL POC Glucose (mg/dL) 135 H (75-99) mg/dL AST (14-36) U/L Alkaline Phosphatase (38-126) U/L Thrombosis Risk Factor Assmnt - Choose All That Apply Each Factor Represents 1 point: Abnormal pulmonary function (COPD) Each Risk Factor Represents 2 Points: Age 61-74 years Thrombosis Risk Factor Assessment Total Risk Factor Score: 3 Thrombosis Risk Factor Assessment Level: Moderate Risk Assessment and Plan Plan: ASSESSMENT: Acute exacerbation of chronic obstructive pulmonary disease Suspected right lower lobe pneumonia, unspecified organism Acute fracture of right posterior sixth and ninth rib Acute on chronic hypoxic respiratory failure requiring supplemental oxygen secondary to COPD Diabetes mellitus, type II Acute kidney injury, creatinine 2.50 on admission, baseline creatinine 1.8-2.0 Metabolic acidosis secondary to acute kidney injury Hyperkalemia, secondary to acute kidney injury, resolved Chronic kidney disease, stage IV, likely secondary to diabetic kidney disease with baseline creatinine 1.8-2.0 Hypertension Hyperlipidemia History of seizure disorder History of anxiety, bipolar disorder, and depression History of nicotine dependence, in remission per patient PLAN: Pulmonary on consult. Await further recommendations and input Initiate Solu-medral 60mg IV q8 hours Novolog sliding scale ACHS Continue sodium bicarb tablets initiated by pulmonary IV fluids at 50 mL an hour Monitor kidney function. Recheck in a.m. Avoid nephrotoxic agents Home meds as appropriate Monitor labs GI prophylaxis: Protonix 40 mg PO Daily DVT prophylaxis: Heparin 5000 units subcu every 8 hours Monitor vital signs and address as appropriate Discharge planning: Patient to return home when stable Further recommendations pending patient's course Nurse practitioner note has been reviewed by physician. Signing provider agrees with the documented findings, assessment, and plan of care.
[2017-12-24] MEDS: IPRATROPIUM-ALBUTEROL 3 ML NEB INHALATION SCH ×4 (07:29→19:26)
[2017-12-24] MEDS: INSULIN ASPART 100 UNIT/ML 1 ML 10 ML VIAL SQ SCH ×4 (07:29→20:36)
[2017-12-24 07:30] LABS: Glucose,Whole Blood 109 mg/dL (75-99)
[2017-12-24] MEDS: LORATADINE 10 MG TAB PO SCH (08:07)
[2017-12-24] MEDS: SERTRALINE 100 MG TAB PO SCH ×2 (08:07→20:38)
[2017-12-24] MEDS: SODIUM BICARBONATE TAB 650 MG TAB PO SCH ×2 (08:07→20:38)
[2017-12-24] MEDS: PHENYTOIN SODIUM EXTENDED 100 MG CAP PO SCH ×3 (08:07→20:39)
[2017-12-24] MEDS: PANTOPRAZOLE 40 MG TABLET PO SCH ×2 (08:07→20:38)
[2017-12-24] MEDS: methylPREDNISolone SOD SUCCI 125 MG/2 ML VIAL IV SCH (08:07)
[2017-12-24] MEDS: HYDROcodone/APAP 10-325MG 1 EACH TAB PO PRN ×2 (08:08→15:48)
[2017-12-24 09:00] LABS: Basophils % (A) 0 %; Eosinophils % (A) 1 %; HCT 29.4 % (34.0-46.0); HGB 9.5 gm/dL (11.4-16.0); Hypochromasia Slight; Lymphocytes # (A) 1.1 k/uL (1.0-4.8); Lymphocytes % (A) 24 %; MCH 31.8 pg (25.0-35.0); MCHC 32.2 g/dL (31.0-37.0); MCV 98.7 fL (80.0-100.0); Macrocytosis Slight; Mean Platelet Volume 7.2; Monocytes # (A) 0.2 k/uL (0-1.0); Monocytes % (A) 5 %; Neutrophils # (A) 3.1 k/uL (1.3-7.7); Neutrophils % (A) 68 %; Platelet Count 203 k/uL (150-450); RBC 2.97 m/uL (3.80-5.40); RDW 15.2 % (11.5-15.5); WBC 4.5 k/uL (3.8-10.6)
[2017-12-24 09:07] LABS: Albumin 3.6 g/dL (3.5-5.0); Calcium 8.2 mg/dL (8.4-10.2); Potassium 4.7 mmol/L (3.5-5.1); Total Bilirubin 0.2 mg/dL (0.2-1.3); Total Protein 6.1 g/dL (6.3-8.2)
--- NOTE | 2017-12-24 09:43 | P.PN ---
Subjective Progress Note Date: 12/24/17 62-year-old female who presented to the emergency room with a chief complaint of shortness of breath. Patient reports SOB has been present for about a week. She also reports pain to the right side of her chest and states she felt something "pop" when she was coughing recently. She reports coughing but denies significant sputum production. Denies fever or chills. Denies nausea or vomiting. The patient has a history of COPD and is oxygen dependent at home with oxygen via NC at 4L. She states she does not see a lung doctor on an outpatient basis. She does report a heavy smoking history in the past but denies current nicotine use. She also has a history of diabetes mellitus, hyperlipidemia, hypertension, seizure disorder, anxiety, bipolar, and depression. Chest x-ray revealed increased opacities which may represent scarring versus atelectasis throughout the right lower and right medial lung. CT of the thorax was recommended. The patient then underwent a CT of the chest which revealed emphysema, right-sided pleural and pulmonary scarring and atelectasis. Acute pneumonia in the right lower lobe as possible. Multiple old rib fractures. Acute right posterior rib fractures of 6th and 9th rib. Laboratory data reveals WBC of 3.9. Hemoglobin 10.1. Bili count 225. Potassium 5.2. Sodium 143. Chloride 117. Carbon dioxide 15. BUN 38. Creatinine 2.5. GFR 20. Glucose 107. AST 13. ALT 16. Alkaline phosphatase 281. Troponin 0.016. BNP 2430. The patient was admitted to the hospital under the care of Dr. Marie. 12/24/2017 Patient was seen and examined at the bedside on rounds with Dr. Marie. Patient is awake and alert. She states her breathing has improved. She remains on IV steroids. She does complain of seasonal allergies. She states she is still having pain on the right side of her chest due to rib fractures. Patient had one set of blood cultures completed which are positive for gram positive cocci in clusters. Patient's white count is within normal limits and patient has been afebrile. Suspect result is due to contamination but will repeat blood cultures today. Patient's creatinine has increased to 2.63 from 2.39. Patient's baseline 1.8-2.0. She was started on sodium bicarb 650 mg 3 times a day per pulmonary yesterday. Bicarb this morning is 17. Patient has seen nephrology in the past during hospitalization but she states she has not been following up with a quality assurance supervisor final outpatient. Objective - Vital Signs Vital signs: Vital Signs Temp 96.8 F L 12/24/17 06:06 Pulse 92 12/24/17 07:37 Resp 18 12/24/17 06:06 BP 126/63 12/24/17 06:06 Pulse Ox 97 12/24/17 06:06 Intake & Output 12/23/17 12/24/17 12/24/17 18:59 06:59 18:59 Intake Total 200 360 Balance 200 360 Intake: Oral 200 360 Other: Voiding Method Toilet # Voids 2 1 - Exam GENERAL: This is a 62-year-old female in no apparent distress at the time of examination. Pleasant and cooperative. HEENT: Head is atraumatic, normocephalic. Pupils are equal, round, and reactive to light. Sclerae anicteric. Conjunctivae are clear. Mucus membranes of the mouth are moist. Neck is supple. RESPIRATORY: Lungs are coarse to auscultation. No wheezes, rales, or rhonchi. No use of accessory muscles. Patient maintaining oxygen saturation greater than 92% on 4 L nasal cannula. Pain upon palpation of right chest wall. CARDIOVASCULAR: Regular rate and rhythm. S1 and S2 noted. No systolic or diastolic murmur auscultated. No JVD noted. No S3 or S4 noted. GASTROINTESTINAL: No distention noted. Abdomen soft and round. Normal active bowel sounds auscultated x 4 quadrants. No pain or tenderness noted upon palpation. INTEGUMENTARY: No cyanosis. No jaundice. No rashes noted. No cellulitis noted. EXTREMITIES: 2+ peripheral pulses. No evidence of peripheral edema. No calf tenderness noted. NEUROLOGIC: Cranial nerves II-XII intact. PSYCHIATRIC: Awake, alert, and oriented X 3. Appropriate affect. Intact judgement and insight. - Labs CBC & Chem 7: 12/25/17 08:10 12/25/17 08:10 Labs: Abnormal Lab Results - Last 24 Hours (Table) 12/23/17 12/23/17 12/23/17 Range/Units 09:31 09:31 11:52 RBC 3.23 L (3.80-5.40) m/uL Hgb 9.9 L (11.4-16.0) gm/dL Hct 31.3 L (34.0-46.0) % Lymphocytes # 0.9 L (1.0-4.8) k/uL Chloride 117 H (98-107) mmol/L Carbon Dioxide 14 L (22-30) mmol/L BUN 35 H (7-17) mg/dL Creatinine 2.39 H (0.52-1.04) mg/dL Glucose 162 H (74-99) mg/dL POC Glucose (mg/dL) 135 H (75-99) mg/dL Calcium (8.4-10.2) mg/dL AST 12 L (14-36) U/L Alkaline Phosphatase 279 H (38-126) U/L Total Protein (6.3-8.2) g/dL 12/23/17 12/23/17 12/24/17 Range/Units 17:22 21:37 07:10 RBC (3.80-5.40) m/uL Hgb (11.4-16.0) gm/dL Hct (34.0-46.0) % Lymphocytes # (1.0-4.8) k/uL Chloride (98-107) mmol/L Carbon Dioxide (22-30) mmol/L BUN (7-17) mg/dL Creatinine (0.52-1.04) mg/dL Glucose (74-99) mg/dL POC Glucose (mg/dL) 133 H 109 H 109 H (75-99) mg/dL Calcium (8.4-10.2) mg/dL AST (14-36) U/L Alkaline Phosphatase (38-126) U/L Total Protein (6.3-8.2) g/dL 12/24/17 12/24/17 Range/Units 08:31 08:31 RBC 2.97 L (3.80-5.40) m/uL Hgb 9.5 L (11.4-16.0) gm/dL Hct 29.4 L (34.0-46.0) % Lymphocytes # (1.0-4.8) k/uL Chloride 116 H (98-107) mmol/L Carbon Dioxide 17 L (22-30) mmol/L BUN 40 H (7-17) mg/dL Creatinine 2.63 H (0.52-1.04) mg/dL Glucose 134 H (74-99) mg/dL POC Glucose (mg/dL) (75-99) mg/dL Calcium 8.2 L (8.4-10.2) mg/dL AST 10 L (14-36) U/L Alkaline Phosphatase 254 H (38-126) U/L Total Protein 6.1 L (6.3-8.2) g/dL Microbiology - Last 24 Hours (Table) 12/22/17 21:40 Blood Culture - Final Blood 12/23/17 11:40 Gram Stain - Preliminary Sputum Assessment and Plan Plan: ASSESSMENT: Acute exacerbation of chronic obstructive pulmonary disease Suspected right lower lobe pneumonia, unspecified organism Acute fracture of right posterior sixth and ninth rib Acute on chronic hypoxic respiratory failure requiring supplemental oxygen secondary to COPD Diabetes mellitus, type II Acute kidney injury, creatinine 2.50 on admission, baseline creatinine 1.8-2.0, worsening Metabolic acidosis secondary to acute kidney injury Hyperkalemia, secondary to acute kidney injury, resolved Chronic kidney disease, stage IV, likely secondary to diabetic kidney disease with baseline creatinine 1.8-2.0 Hypertension Hyperlipidemia History of seizure disorder History of anxiety, bipolar disorder, and depression History of nicotine dependence, in remission per patient Positive blood cultures, growing gram positive cocci in clusters, suspect contamination-will repeat cultures PLAN: Begin Flonase nasal spray Repeat blood cultures x 2 to r/o contamination Pulmonary on consult. Await further recommendations and input Decrease Solu-medral to 40mg IV q8 hours Novolog sliding scale ACHS Continue sodium bicarb tablets initiated by pulmonary Increase IV fluids to 75 mL an hour Consult nephrology d/t worsening BJORN. Patient has seen nephrology in the past during inpatient admission but does not appear she has continued to follow up outpatient for her CKD Monitor kidney function. Recheck in a.m. Avoid nephrotoxic agents Home meds as appropriate Monitor labs GI prophylaxis: Protonix 40 mg PO Daily DVT prophylaxis: Heparin 5000 units subcu every 8 hours Monitor vital signs and address as appropriate Discharge planning: Patient to return home when stable Further recommendations pending patient's course Nurse practitioner note has been reviewed by physician. Signing provider agrees with the documented findings, assessment, and plan of care.
--- NOTE | 2017-12-24 09:53 | P.PN ---
Subjective Progress Note Date: 12/24/17 Brie is a 62-year-old patient of Dr. Mari who presented to the emergency department on 12/22/2017 for evaluation of increased shortness of breath, cough , wheezing. Patient was having severe coughing spells at home, she states a week ago she had a coughing episode and felt something pop on the right side of her chest at about the mid axillary line. The pain is aching, and worse with deep inspiration, coughing or palpation. Denied any fever or chills, denied any change in her sputum color. Has been afebrile while in the hospital. X- ray was completed in the emergency department showed increased opacities which may represent scarring versus atelectasis throughout the right lower and right medial lung. Was also narrowing of the anterior costal space of multiple ribs on the right. Chest CT showed emphysema, right-sided pleural and pulmonary scarring and atelectasis. Multiple old rib fractures were noted, there was also acute right posterior rib fracture without any callus. Lab work did not show any evidence of leukocytosis, WBC of 3.9, hemoglobin is 10.1, d-dimer was negative at 0.55, potassium is 5.2, chloride is 117, CO2 was 15, B1 is 38, creatinine is 2.5, alkaline phosphatase was 281, cardiac enzymes were negative 1, proBNP was elevated 2430. Patient's past medical history is positive for COPD, diabetes mellitus type 2, hypertension, hyperlipidemia, seizure disorder, anxiety, bipolar, former smoker, former marijuana use. Patient states she no longer smokes or uses marijuana. Sees Dr. Benjamin in the pulmonary office for her severe oxygen-dependent COPD. Her maintenance inhalers include Tudorza Pressair, Ventolin inhaler. She was started on empiric antibiotics in the form of Zithromax and Rocephin, nebulized bronchodilators, and IV steroids. On 12/24/2017 clinically the patient is feeling better and the patient's pain along the right rib cage and the shortness of breath is also improved. No hemoptysis no pleurisy. She is using the bronchodilators and systemic steroids. There has been no other significant events overnight. Patient is known to have COPD. She has been maintained on Tudorza and Ventolin rescue inhaler Outpatient basis. Her current antibiotic coverage includes Rocephin and Zithromax combination. Objective - Vital Signs Vital signs: Vital Signs Temp 96.8 F L 12/24/17 06:06 Pulse 92 12/24/17 07:37 Resp 18 12/24/17 06:06 BP 126/63 12/24/17 06:06 Pulse Ox 97 12/24/17 06:06 Intake & Output 12/23/17 12/24/17 12/24/17 18:59 06:59 18:59 Intake Total 200 360 Balance 200 360 Intake: Oral 200 360 Other: Voiding Method Toilet # Voids 2 1 - Exam GENERAL EXAM: Alert, pleasant 62-year-old white female, comfortable in no apparent distress. HEAD: Normocephalic/atraumatic. EYES: Normal reaction of pupils, equal size. Conjunctiva pink, sclera white. NOSE: Clear with pink turbinates. THROAT: No erythema or exudates. NECK: No masses, no JVD, no thyroid enlargement, no adenopathy. CHEST: No chest wall deformity. Symmetrical expansion. LUNGS: Diminished breath sounds,prolongation of respiratory phase, and faint wheezes CVS: Regular rate and rhythm, normal S1 and S2, no gallops, no murmurs, no rubs ABDOMEN: Soft, nontender. No hepatosplenomegaly, normal bowel sounds, no guarding or rigidity. EXTREMITIES: No clubbing, no edema, no cyanosis, 2+ pulses and upper and lower extremities. MUSCULOSKELETAL: Muscle strength and tone normal. SPINE: No scoliosis or deformity SKIN: No rashes CENTRAL NERVOUS SYSTEM: Alert and oriented -3. No focal deficits, tone is normal in all 4 extremities. PSYCHIATRIC: Alert and oriented -3. Appropriate affect. Intact judgment and insight. - Labs CBC & Chem 7: 12/24/17 08:31 12/24/17 08:31 Labs: Abnormal Lab Results - Last 24 Hours (Table) 12/23/17 12/23/17 12/23/17 Range/Units 09:31 09:31 11:52 RBC 3.23 L (3.80-5.40) m/uL Hgb 9.9 L (11.4-16.0) gm/dL Hct 31.3 L (34.0-46.0) % Lymphocytes # 0.9 L (1.0-4.8) k/uL Chloride 117 H (98-107) mmol/L Carbon Dioxide 14 L (22-30) mmol/L BUN 35 H (7-17) mg/dL Creatinine 2.39 H (0.52-1.04) mg/dL Glucose 162 H (74-99) mg/dL POC Glucose (mg/dL) 135 H (75-99) mg/dL Calcium (8.4-10.2) mg/dL AST 12 L (14-36) U/L Alkaline Phosphatase 279 H (38-126) U/L Total Protein (6.3-8.2) g/dL 12/23/17 12/23/17 12/24/17 Range/Units 17:22 21:37 07:10 RBC (3.80-5.40) m/uL Hgb (11.4-16.0) gm/dL Hct (34.0-46.0) % Lymphocytes # (1.0-4.8) k/uL Chloride (98-107) mmol/L Carbon Dioxide (22-30) mmol/L BUN (7-17) mg/dL Creatinine (0.52-1.04) mg/dL Glucose (74-99) mg/dL POC Glucose (mg/dL) 133 H 109 H 109 H (75-99) mg/dL Calcium (8.4-10.2) mg/dL AST (14-36) U/L Alkaline Phosphatase (38-126) U/L Total Protein (6.3-8.2) g/dL 12/24/17 12/24/17 Range/Units 08:31 08:31 RBC 2.97 L (3.80-5.40) m/uL Hgb 9.5 L (11.4-16.0) gm/dL Hct 29.4 L (34.0-46.0) % Lymphocytes # (1.0-4.8) k/uL Chloride 116 H (98-107) mmol/L Carbon Dioxide 17 L (22-30) mmol/L BUN 40 H (7-17) mg/dL Creatinine 2.63 H (0.52-1.04) mg/dL Glucose 134 H (74-99) mg/dL POC Glucose (mg/dL) (75-99) mg/dL Calcium 8.2 L (8.4-10.2) mg/dL AST 10 L (14-36) U/L Alkaline Phosphatase 254 H (38-126) U/L Total Protein 6.1 L (6.3-8.2) g/dL Microbiology - Last 24 Hours (Table) 12/22/17 21:40 Blood Culture - Final Blood 12/23/17 11:40 Gram Stain - Preliminary Sputum Assessment and Plan Plan: #1. Acute exacerbation of chronic obstructive pulmonary disease, related to a possible suspected right lung pneumonia, community- acquired #2. Right-sided rib fracture secondary to severe coughing spells, and a secondary right-sided chest pain #3. Non-anion gap metabolic acidosis secondary to chronic kidney disease #4. Severe oxygen-dependent COPD #5. History of nicotine dependence currently in remission, patient carries over [id number] smoking history #6. Hypertension, hyperlipidemia #7. Diabetes mellitus type 2 #8. Chronic kidney disease #9. Seizure disorder #10. Anxiety, depression Plan Continue same treatment. Clinically improving. May need another 24 hours of inpatient therapy. We'll follow. Smoking cessation counseling was done.
[2017-12-24] MEDS: FLUTICASONE 50MCG/SPRAY NASAL 16GM EA NOSTRIL SCH (10:01)
--- NOTE | 2017-12-24 12:00 | P.NPCON ---
History of Present Illness - Reason for Consult acute renal failure, chronic renal failure - History of Present Illness Reason for consultation: Acute kidney injury on chronic kidney disease History of present illness: Patient is a 62-year-old female seen in renal consultation for acute kidney injury on chronic kidney disease. Patient has chronic kidney disease stage IV with baseline creatinine in the range of 2-2.5. Etiology is likely to be diabetic kidney disease. Patient does not follow with a db2 developer as an outpatient. She is a long-standing history of diabetes mellitus diagnosed over 10 years ago. Patient presented to the hospital due to pain in her ribs. Patient states she was having coughing spells and cracked her ribs. She is currently being treated for COPD as well as pneumonia. She admits to good urine output. Denies any hematuria or dysuria. Denies use of NSAIDs. Denies vomiting or diarrhea. She is currently maintained on normal saline at 75 mL an hour. She also takes metformin as an outpatient. This is currently held. Hemodynamically stable. Afebrile this morning. Vital signs are stable. General: The patient appeared well nourished and normally developed. HEENT: Head exam is unremarkable. Neck is without jugular venous distension. LUNGS: Lungs are clear to auscultation and percussion. Breath sounds decreased. HEART: Rate and Rhythm are regular. First and second heart sounds normal. No murmurs, rubs or gallops. ABDOMEN: Abdominal exam reveals normal bowel sounds. Non-tender and non- distended. No evidence of peritonitis. EXTREMITITES: No clubbing, cyanosis, or edema. Past Medical History Past Medical History: COPD, Diabetes Mellitus, Hyperlipidemia, Hypertension, Seizure Disorder History of Any Multi-Drug Resistant Organisms: None Reported Past Surgical History: Hysterectomy Past Anesthesia/Blood Transfusion Reactions: Unable to Obtain Past Psychological History: Anxiety, Bipolar, Depression Smoking Status: Never smoker Past Alcohol Use History: None Reported Past Drug Use History: Marijuana, Prescription Drug Abuse - Past Family History Mother Family Medical History: Diabetes Mellitus, Hypertension Father Family Medical History: Hypertension Medications and Allergies Home Medications Medication Instructions Recorded Confirmed Type Phenytoin Sodium Extended 100 mg PO TID 11/29/15 12/23/17 History [Dilantin] Sertraline [Zoloft] 200 mg PO DAILY 11/29/15 12/23/17 History Albuterol Inhaler [Ventolin Hfa 2 puff INHALATION RT-Q6H PRN 07/22/17 12/23/17 History Inhaler] Folic Acid 1 mg PO DAILY 07/22/17 12/23/17 History QUEtiapine FUMARATE 150 mg PO [id number]/17 12/23/17 History Gemfibrozil [Lopid] 1,200 mg PO HS 09/05/17 12/23/17 History HYDROcodone/APAP 10-325MG [Benavides 1 tab PO TID PRN 09/05/17 12/23/17 History 10-325] Aclidinium [place] [Tudorza 1 puff PO RT-BID 12/23/17 12/23/17 History Pressair] Bisoprolol-Hctz 5-6.25 mg [Ziac 1 tab PO DAILY 12/23/17 12/23/17 History 5-6.25] Cyclobenzaprine [Flexeril] 5 mg PO BID PRN 12/23/17 12/23/17 History Primidone [Mysoline] 50 mg PO BID 12/23/17 12/23/17 History busPIRone HCL [Buspar] 7.5 mg PO BID 12/23/17 12/23/17 History metFORMIN HCL 1,000 mg PO BID 12/23/17 12/23/17 History Allergies Allergy/AdvReac Type Severity Reaction Status Date / Time Penicillins Allergy Mild Swelling Verified 12/22/17 21:07 Physical Exam Vitals: Vital Signs Temp Pulse Pulse Resp BP BP Pulse Ox 12/24/17 07:37 92 12/24/17 07:29 88 12/24/17 06:06 96.8 F L 89 18 126/63 97 12/23/17 23:00 98.2 F 96 16 145/87 98 12/23/17 19:19 92 12/23/17 19:09 90 12/23/17 15:30 92 12/23/17 15:20 90 98 12/23/17 15:00 99.7 F H 101 H 20 128/86 97 Intake and Output 12/23/17 12/24/17 12/24/17 22:59 06:59 14:59 Intake Total 360 Balance 360 Intake: Oral 360 Other: Voiding Method Toilet # Voids 2 1 Results - Lab Results Most recent lab results Calcium 8.2 mg/dL (8.4-10.2) L 12/24/17 08:31 12/24/17 08:31 12/24/17 08:31 Assessment and Plan Plan: Assessment: 1. Mild acute kidney injury mostly prerenal. Expect improvement with IV hydration. Creatinine 2.63 today. 2. Chronic kidney disease stage IV likely secondary to diabetic kidney disease with baseline creatinine in the range of 2-2.5. 3. COPD exacerbation with possible right-sided pneumonia maintain on antibiotics. 4. Anemia of chronic kidney disease. Rule out iron deficiency. 5. Diabetes mellitus. 6. Metabolic acidosis secondary to acute kidney injury and IV fluids. Maintained on oral sodium bicarbonate. 7. Hypertension with chronic kidney disease. Controlled. Plan: Continue normal saline at 50 mL an hour. Avoid nephrotoxic agents. Repeat electrolytes in the morning. Avoid metformin as GFR less than 30. Stressed the importance of following up as an outpatient post discharge. Increase oral bicarb 1300 mg twice daily. Check iron studies. Thank you for the consultation. I will continue to follow the patient with you during her hospital stay.
[2017-12-24 12:08] LABS: Glucose,Whole Blood 165 mg/dL (75-99)
[2017-12-24] MEDS: FOLIC ACID 1 MG TAB PO SCH (12:33)
[2017-12-24] MEDS ORDERED: CYCLOBENZAPRINE 5 MG TAB PO PRN (14:51)
[2017-12-24] MEDS: methylPREDNISolone SOD SUCCI 40 MG/ML 1 ML VIAL IV SCH ×2 (15:50→23:03)
[2017-12-24 16:24] LABS: Iron Saturation 43.46 (12.00-45.00)
[2017-12-24 17:00] LABS: Glucose,Whole Blood 130 mg/dL (75-99)
[2017-12-24 17:36] LABS: Appearance,Urine Clear (Clear); Bacteria,Urine Rare /hpf; Bilirubin,Urine Negative (Negative); Blood,Urine Negative (Negative); Color,Urine Light Yellow; Glucose,Urine (UA) Negative (Negative); Ketones,Urine Negative (Negative); Leukocyte Esterase,Urine Negative (Negative); Mucus,Urine Rare /hpf; Nitrite,Urine Negative (Negative); Protein,Urine 2+ (Negative); RBC,Urine <1 /hpf (0-5); Specific Gravity,Urine 1.012 (1.001-1.035); Squamous Epithelial Cell,Urine 1 /hpf (0-4); Urobilinogen,Urine <2.0 mg/dL (<2.0); WBC,Urine 1 /hpf (0-5)
[2017-12-24 20:36] LABS: Glucose,Whole Blood 130 mg/dL (75-99)
[2017-12-24] MEDS: QUEtiapine 50 MG TAB PO SCH (20:37)
[2017-12-24] MEDS: busPIRone HCl 5 MG TAB PO SCH (20:37)
[2017-12-24] MEDS: GEMFIBROZIL 600 MG TAB PO SCH (20:38)
[2017-12-24] MEDS: PRIMIDONE 50 MG TAB PO SCH (20:38)
[2017-12-24] MEDS: MONTELUKAST 10 MG TAB PO SCH (20:38)
[2017-12-25] MEDS: cefTRIAXone IN SWFI 1,000 MG/10 ML SYRINGE IVP SCH (00:19)
[2017-12-25] MEDS: HYDROcodone/APAP 10-325MG 1 EACH TAB PO PRN ×3 (00:20→15:02)
[2017-12-25] MEDS: AZITHROMYCIN 500 MG TAB PO SCH (00:20)
[2017-12-25 07:13] LABS: Glucose,Whole Blood 98 mg/dL (75-99)
[2017-12-25] MEDS: INSULIN ASPART 100 UNIT/ML 1 ML 10 ML VIAL SQ SCH ×4 (07:14→21:04)
[2017-12-25] MEDS: IPRATROPIUM-ALBUTEROL 3 ML NEB INHALATION SCH ×4 (07:16→19:16)
[2017-12-25 08:23] LABS: Basophils % (A) 0 %; Eosinophils # (A) 0.1 k/uL (0-0.7); Eosinophils % (A) 1 %; HCT 29.6 % (34.0-46.0); HGB 9.6 gm/dL (11.4-16.0); Hypochromasia Slight; Lymphocytes # (A) 1.5 k/uL (1.0-4.8); Lymphocytes % (A) 26 %; MCH 32.3 pg (25.0-35.0); MCHC 32.6 g/dL (31.0-37.0); Macrocytosis Slight; Mean Platelet Volume 7.4; Monocytes # (A) 0.3 k/uL (0-1.0); Monocytes % (A) 5 %; Neutrophils % (A) 66 %; Platelet Count 222 k/uL (150-450); RBC 2.98 m/uL (3.80-5.40); RDW 15.2 % (11.5-15.5)
[2017-12-25] MEDS: PHENYTOIN SODIUM EXTENDED 100 MG CAP PO SCH ×3 (08:30→21:03)
[2017-12-25] MEDS: LORATADINE 10 MG TAB PO SCH (08:30)
[2017-12-25] MEDS: busPIRone HCl 5 MG TAB PO SCH ×2 (08:30→21:03)
[2017-12-25] MEDS: SODIUM BICARBONATE TAB 650 MG TAB PO SCH ×2 (08:30→21:03)
[2017-12-25] MEDS: methylPREDNISolone SOD SUCCI 40 MG/ML 1 ML VIAL IV SCH ×3 (08:31→23:44)
[2017-12-25] MEDS: PANTOPRAZOLE 40 MG TABLET PO SCH ×2 (08:31→21:03)
[2017-12-25] MEDS: SERTRALINE 100 MG TAB PO SCH ×2 (08:31→21:07)
[2017-12-25] MEDS: FLUTICASONE 50MCG/SPRAY NASAL 16GM EA NOSTRIL SCH (08:31)
[2017-12-25] MEDS: PRIMIDONE 50 MG TAB PO SCH ×3 (08:31→21:03)
[2017-12-25 08:40] LABS: Albumin 3.8 g/dL (3.5-5.0); Calcium 8.1 mg/dL (8.4-10.2); Potassium 4.8 mmol/L (3.5-5.1); Total Bilirubin 0.2 mg/dL (0.2-1.3); Total Protein 6.4 g/dL (6.3-8.2)
[2017-12-25] MEDS ORDERED: ALPRAZolam 0.25 MG TAB PO STA (11:53)
[2017-12-25 12:12] LABS: Glucose,Whole Blood 95 mg/dL (75-99)
[2017-12-25] MEDS: FOLIC ACID 1 MG TAB PO SCH (12:29)
--- NOTE | 2017-12-25 13:20 | P.PN ---
Subjective Patient is seen in follow-up for acute kidney injury on chronic kidney disease. Patient has chronic kidney disease stage IV with baseline creatinine in the range of 2-2.5. Creatinine 2.68 today. Currently resting in bed. She is being treated for COPD and pneumonia. Oral intake is fair. No vomiting or diarrhea. Denies chest pain or shortness of breath. Vital signs are stable. General: The patient appeared well nourished and normally developed. HEENT: Head exam is unremarkable. Neck is without jugular venous distension. LUNGS: Lungs are clear to auscultation and percussion. Breath sounds decreased. HEART: Rate and Rhythm are regular. First and second heart sounds normal. No murmurs, rubs or gallops. ABDOMEN: Abdominal exam reveals normal bowel sounds. Non-tender and non- distended. No evidence of peritonitis. EXTREMITITES: No clubbing, cyanosis, or edema. Objective - Vital Signs Vital signs: Vital Signs Temp 97.9 F 12/25/17 06:13 Pulse 86 12/25/17 07:26 Resp 16 12/25/17 08:30 BP 154/95 12/25/17 06:13 Pulse Ox 96 12/25/17 06:13 Intake & Output 12/24/17 12/25/17 12/25/17 18:59 06:59 18:59 Other: Voiding Method Toilet Toilet Toilet # Voids 3 4 2 # Bowel Movements 1 - Labs CBC & Chem 7: 12/25/17 08:10 12/25/17 08:10 Labs: Abnormal Lab Results - Last 24 Hours (Table) 12/24/17 12/24/17 12/24/17 Range/Units 16:50 17:20 20:34 RBC (3.80-5.40) m/uL Hgb (11.4-16.0) gm/dL Hct (34.0-46.0) % Chloride (98-107) mmol/L Carbon Dioxide (22-30) mmol/L BUN (7-17) mg/dL Creatinine (0.52-1.04) mg/dL Glucose (74-99) mg/dL POC Glucose (mg/dL) 130 H 130 H (75-99) mg/dL Calcium (8.4-10.2) mg/dL AST (14-36) U/L Alkaline Phosphatase (38-126) U/L Urine Protein 2+ H (Negative) Urine Bacteria Rare H (None) /hpf Urine Mucus Rare H (None) /hpf 12/25/17 12/25/17 Range/Units 08:10 08:10 RBC 2.98 L (3.80-5.40) m/uL Hgb 9.6 L (11.4-16.0) gm/dL Hct 29.6 L (34.0-46.0) % Chloride 115 H (98-107) mmol/L Carbon Dioxide 17 L (22-30) mmol/L BUN 48 H (7-17) mg/dL Creatinine 2.68 H (0.52-1.04) mg/dL Glucose 101 H (74-99) mg/dL POC Glucose (mg/dL) (75-99) mg/dL Calcium 8.1 L (8.4-10.2) mg/dL AST 12 L (14-36) U/L Alkaline Phosphatase 254 H (38-126) U/L Urine Protein (Negative) Urine Bacteria (None) /hpf Urine Mucus (None) /hpf Microbiology - Last 24 Hours (Table) 12/24/17 09:45 Blood Culture - Preliminary Blood No Growth after 24 hours 12/24/17 10:00 Blood Culture - Preliminary Blood No Growth after 24 hours 12/23/17 11:40 Gram Stain - Final Sputum Sputum Culture - Final 12/22/17 21:40 Blood Culture Gram Stain - Preliminary Blood Blood Culture - Preliminary Coagulase Negative Staph Assessment and Plan Plan: Assessment: 1. Mild acute kidney injury secondary to ATN. Creatinine 2.68 today. 2. Chronic kidney disease stage IV likely secondary to diabetic kidney disease with baseline creatinine in the range of 2-2.5. 3. COPD exacerbation with possible right-sided pneumonia maintain on antibiotics. 4. Anemia of chronic kidney disease. Iron replete. 5. Diabetes mellitus. 6. Metabolic acidosis secondary to acute kidney injury and IV fluids. Maintained on oral sodium bicarbonate. 7. Hypertension with chronic kidney disease. Controlled. Plan: Hep-Lock IV fluids. Avoid nephrotoxic agents. Repeat electrolytes in the morning. Avoid metformin as GFR less than 30. Stressed the importance of following up as an outpatient post discharge. Maintain oral bicarb 1300 mg twice daily. Add Aranesp. Follow-up cultures. One blood culture noted to be positive for coagulase- negative staph. Repeat negative so far.
--- NOTE | 2017-12-25 13:22 | P.PN ---
Subjective Progress Note Date: 12/25/17 Principal diagnosis: Acute exacerbation of chronic obstructive pulmonary disease complicated by right lung pneumonia suspect community-acquired. Brie is a 62-year-old patient of Dr. Mari who presented to the emergency department on 12/22/2017 for evaluation of increased shortness of breath, cough , wheezing. Patient was having severe coughing spells at home, she states a week ago she had a coughing episode and felt something pop on the right side of her chest at about the mid axillary line. The pain is aching, and worse with deep inspiration, coughing or palpation. Denied any fever or chills, denied any change in her sputum color. Has been afebrile while in the hospital. X- ray was completed in the emergency department showed increased opacities which may represent scarring versus atelectasis throughout the right lower and right medial lung. Was also narrowing of the anterior costal space of multiple ribs on the right. Chest CT showed emphysema, right-sided pleural and pulmonary scarring and atelectasis. Multiple old rib fractures were noted, there was also acute right posterior rib fracture without any callus. Lab work did not show any evidence of leukocytosis, WBC of 3.9, hemoglobin is 10.1, d-dimer was negative at 0.55, potassium is 5.2, chloride is 117, CO2 was 15, B1 is 38, creatinine is 2.5, alkaline phosphatase was 281, cardiac enzymes were negative 1, proBNP was elevated 2430. Patient's past medical history is positive for COPD, diabetes mellitus type 2, hypertension, hyperlipidemia, seizure disorder, anxiety, bipolar, former smoker, former marijuana use. Patient states she no longer smokes or uses marijuana. Sees Dr. Benjamin in the pulmonary office for her severe oxygen-dependent COPD. Her maintenance inhalers include Tudorza Pressair, Ventolin inhaler. She was started on empiric antibiotics in the form of Zithromax and Rocephin, nebulized bronchodilators, and IV steroids. On 12/24/2017 clinically the patient is feeling better and the patient's pain along the right rib cage and the shortness of breath is also improved. No hemoptysis no pleurisy. She is using the bronchodilators and systemic steroids. There has been no other significant events overnight. Patient is known to have COPD. She has been maintained on Tudorza and Ventolin rescue inhaler Outpatient basis. Her current antibiotic coverage includes Rocephin and Zithromax combination. Patient is seen today on 12/25/2017 in follow-up on the regular medical floor. She is awake and alert in no acute distress. She is somewhat anxious as she has had a disruptive roommate. She is breathing slightly better today as compared to yesterday. Still not quite back to her baseline. Obtaining O2 saturations in the upper 90s on 2 L/m per nasal cannula. She's been afebrile. Follow-up blood cultures reveal no growth. Sputum reveals no growth. White count 6.0. Objective - Vital Signs Vital signs: Vital Signs Temp 97.9 F 12/25/17 06:13 Pulse 86 12/25/17 07:26 Resp 16 12/25/17 08:30 BP 154/95 12/25/17 06:13 Pulse Ox 96 12/25/17 06:13 Intake & Output 12/24/17 12/25/17 12/25/17 18:59 06:59 18:59 Other: Voiding Method Toilet Toilet Toilet # Voids 3 4 2 # Bowel Movements 1 - Exam GENERAL EXAM: Alert, pleasant 62-year-old white female, comfortable in no apparent distress. HEAD: Normocephalic/atraumatic. EYES: Normal reaction of pupils, equal size. Conjunctiva pink, sclera white. NOSE: Clear with pink turbinates. THROAT: No erythema or exudates. NECK: No masses, no JVD, no thyroid enlargement, no adenopathy. CHEST: No chest wall deformity. Symmetrical expansion. LUNGS: Diminished breath sounds,prolongation of respiratory phase, and faint wheezes CVS: Regular rate and rhythm, normal S1 and S2, no gallops, no murmurs, no rubs ABDOMEN: Soft, nontender. No hepatosplenomegaly, normal bowel sounds, no guarding or rigidity. EXTREMITIES: No clubbing, no edema, no cyanosis, 2+ pulses and upper and lower extremities. MUSCULOSKELETAL: Muscle strength and tone normal. SPINE: No scoliosis or deformity SKIN: No rashes CENTRAL NERVOUS SYSTEM: Alert and oriented -3. No focal deficits, tone is normal in all 4 extremities. PSYCHIATRIC: Alert and oriented -3. Appropriate affect. Intact judgment and insight. - Labs CBC & Chem 7: 12/25/17 08:10 12/25/17 08:10 Labs: Abnormal Lab Results - Last 24 Hours (Table) 12/24/17 12/24/17 12/24/17 Range/Units 16:50 17:20 20:34 RBC (3.80-5.40) m/uL Hgb (11.4-16.0) gm/dL Hct (34.0-46.0) % Chloride (98-107) mmol/L Carbon Dioxide (22-30) mmol/L BUN (7-17) mg/dL Creatinine (0.52-1.04) mg/dL Glucose (74-99) mg/dL POC Glucose (mg/dL) 130 H 130 H (75-99) mg/dL Calcium (8.4-10.2) mg/dL AST (14-36) U/L Alkaline Phosphatase (38-126) U/L Urine Protein 2+ H (Negative) Urine Bacteria Rare H (None) /hpf Urine Mucus Rare H (None) /hpf 12/25/17 12/25/17 Range/Units 08:10 08:10 RBC 2.98 L (3.80-5.40) m/uL Hgb 9.6 L (11.4-16.0) gm/dL Hct 29.6 L (34.0-46.0) % Chloride 115 H (98-107) mmol/L Carbon Dioxide 17 L (22-30) mmol/L BUN 48 H (7-17) mg/dL Creatinine 2.68 H (0.52-1.04) mg/dL Glucose 101 H (74-99) mg/dL POC Glucose (mg/dL) (75-99) mg/dL Calcium 8.1 L (8.4-10.2) mg/dL AST 12 L (14-36) U/L Alkaline Phosphatase 254 H (38-126) U/L Urine Protein (Negative) Urine Bacteria (None) /hpf Urine Mucus (None) /hpf Microbiology - Last 24 Hours (Table) 12/24/17 09:45 Blood Culture - Preliminary Blood No Growth after 24 hours 12/24/17 10:00 Blood Culture - Preliminary Blood No Growth after 24 hours 12/23/17 11:40 Gram Stain - Final Sputum Sputum Culture - Final 12/22/17 21:40 Blood Culture Gram Stain - Preliminary Blood Blood Culture - Preliminary Coagulase Negative Staph Assessment and Plan Assessment: Impression: #1. Acute exacerbation of chronic obstructive pulmonary disease, related to a possible suspected right lung pneumonia, community- acquired #2. Right-sided rib fracture secondary to severe coughing spells, and a secondary right-sided chest pain #3. Non-anion gap metabolic acidosis secondary to chronic kidney disease #4. Severe oxygen-dependent COPD #5. History of nicotine dependence currently in remission, patient carries over [id number] smoking history #6. Hypertension, hyperlipidemia #7. Diabetes mellitus type 2 #8. Chronic kidney disease #9. Seizure disorder #10. Anxiety, depression Plan: The patient was seen and evaluated by Dr. Benjamin. She is improved today as compared to yesterday. Not quite back to her baseline. We'll continue with her current medications. We will increase her activity as tolerated. We'll continue to follow. I, the cosigning physician, performed a history & physical examination of the patient. Lungs sounds with bilateral end expiratory wheeze. Diminished.. Maintaining good O2 saturations in the 90s on 2 L/m per nasal cannula. I discussed the assessment and plan of care with my nurse practitioner, Kirstie Anne. I attest to the above note as dictated by her.
[2017-12-25] MEDS ORDERED: DARBEPOETIN ALFA 40 MCG/0.4 ML SYRINGE SQ SCH (13:30)
[2017-12-25] MEDS ORDERED: LIDOCAINE 5% PATCH TOPICAL SCH (15:00)
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
[2017-12-25 17:09] LABS: Glucose,Whole Blood 145 mg/dL (75-99)
[2017-12-25 20:47] LABS: Glucose,Whole Blood 122 mg/dL (75-99)
[2017-12-25] MEDS: QUEtiapine 50 MG TAB PO SCH (21:03)
[2017-12-25] MEDS: GEMFIBROZIL 600 MG TAB PO SCH (21:03)
[2017-12-25] MEDS: MONTELUKAST 10 MG TAB PO SCH (21:03)
[2017-12-26] MEDS: cefTRIAXone IN SWFI 1,000 MG/10 ML SYRINGE IVP SCH (01:50)
[2017-12-26] MEDS: AZITHROMYCIN 500 MG TAB PO SCH (01:50)
[2017-12-26] MEDS: HYDROcodone/APAP 10-325MG 1 EACH TAB PO PRN ×2 (02:56→10:38)
[2017-12-26 06:50] LABS: Glucose,Whole Blood 109 mg/dL (75-99)
[2017-12-26 07:07] VITALS: BP 162/95; RESP 16; TEMP 97
[2017-12-26] MEDS: IPRATROPIUM-ALBUTEROL 3 ML NEB INHALATION SCH ×2 (07:16→11:19)
[2017-12-26] MEDS: INSULIN ASPART 100 UNIT/ML 1 ML 10 ML VIAL SQ SCH ×2 (07:27→12:31)
[2017-12-26 07:30] VITALS: PULSE 100
[2017-12-26] MEDS: methylPREDNISolone SOD SUCCI 40 MG/ML 1 ML VIAL IV SCH (08:00)
[2017-12-26] MEDS: busPIRone HCl 5 MG TAB PO SCH (08:01)
[2017-12-26] MEDS: LORATADINE 10 MG TAB PO SCH (08:01)
[2017-12-26] MEDS: PANTOPRAZOLE 40 MG TABLET PO SCH (08:02)
[2017-12-26] MEDS: PRIMIDONE 50 MG TAB PO SCH (08:02)
[2017-12-26] MEDS: SERTRALINE 100 MG TAB PO SCH (08:02)
[2017-12-26] MEDS: PHENYTOIN SODIUM EXTENDED 100 MG CAP PO SCH (08:02)
[2017-12-26] MEDS: SODIUM BICARBONATE TAB 650 MG TAB PO SCH (08:02)
[2017-12-26] MEDS: FLUTICASONE 50MCG/SPRAY NASAL 16GM EA NOSTRIL SCH (08:03)
[2017-12-26 08:19] LABS: Calcium 8.1 mg/dL (8.4-10.2); Potassium 4.8 mmol/L (3.5-5.1)
--- NOTE | 2017-12-26 09:31 | P.PN ---
Subjective Patient is seen in follow-up for acute kidney injury on chronic kidney disease. Patient has chronic kidney disease stage IV with baseline creatinine in the range of 2-2.5. Creatinine improved to 2.49 today. Currently resting in bed. She is being treated for COPD and pneumonia. Oral intake is fair. No vomiting or diarrhea. Denies chest pain or shortness of breath. Vital signs are stable. General: The patient appeared well nourished and normally developed. HEENT: Head exam is unremarkable. Neck is without jugular venous distension. LUNGS: Lungs are clear to auscultation and percussion. Breath sounds decreased. HEART: Rate and Rhythm are regular. First and second heart sounds normal. No murmurs, rubs or gallops. ABDOMEN: Abdominal exam reveals normal bowel sounds. Non-tender and non- distended. No evidence of peritonitis. EXTREMITITES: No clubbing, cyanosis, or edema. Objective - Vital Signs Vital signs: Vital Signs Temp 97.0 F L 12/26/17 06:00 Pulse 100 12/26/17 07:29 Resp 16 12/26/17 06:00 BP 162/95 12/26/17 06:00 Pulse Ox 96 12/26/17 06:00 Intake & Output 12/25/17 12/26/17 12/26/17 18:59 06:59 18:59 Intake Total 200 Balance 200 Intake: Oral 200 Other: Voiding Method Toilet Toilet # Voids 2 2 - Labs CBC & Chem 7: 12/25/17 08:10 12/26/17 07:38 Labs: Abnormal Lab Results - Last 24 Hours (Table) 12/25/17 12/25/17 12/26/17 Range/Units 16:56 20:32 06:48 Chloride (98-107) mmol/L Carbon Dioxide (22-30) mmol/L BUN (7-17) mg/dL Creatinine (0.52-1.04) mg/dL POC Glucose (mg/dL) 145 H 122 H 109 H (75-99) mg/dL Calcium (8.4-10.2) mg/dL 12/26/17 Range/Units 07:38 Chloride 112 H (98-107) mmol/L Carbon Dioxide 17 L (22-30) mmol/L BUN 48 H (7-17) mg/dL Creatinine 2.49 H (0.52-1.04) mg/dL POC Glucose (mg/dL) (75-99) mg/dL Calcium 8.1 L (8.4-10.2) mg/dL Microbiology - Last 24 Hours (Table) 12/24/17 09:45 Blood Culture - Preliminary Blood No Growth after 24 hours 12/24/17 10:00 Blood Culture - Preliminary Blood No Growth after 24 hours 12/23/17 11:40 Gram Stain - Final Sputum Sputum Culture - Final Assessment and Plan Plan: Assessment: 1. Mild acute kidney injury secondary to ATN. Creatinine down to 2.49 today. 2. Chronic kidney disease stage IV likely secondary to diabetic kidney disease with baseline creatinine in the range of 2-2.5. 3. COPD exacerbation with possible right-sided pneumonia maintain on antibiotics. 4. Anemia of chronic kidney disease. Iron replete. 5. Diabetes mellitus. 6. Metabolic acidosis secondary to acute kidney injury and IV fluids. Maintained on oral sodium bicarbonate. 7. Hypertension with chronic kidney disease. Plan: Remains off all IV fluids. Avoid nephrotoxic agents. Repeat electrolytes in the morning. Avoid metformin as GFR less than 30. Stressed the importance of following up as an outpatient post discharge. Maintain oral bicarb 1300 mg twice daily - may need to increase dose if no improvement in bicarb tomorrow. Maintain Aranesp. Follow-up cultures. One blood culture noted to be positive for coagulase- negative staph. Repeat negative so far.
[2017-12-26] MEDS: FOLIC ACID 1 MG TAB PO SCH (10:38)
[2017-12-26 11:43] LABS: Glucose,Whole Blood 124 mg/dL (75-99)
--- NOTE | 2017-12-26 11:55 | P.DS ---
Providers Date of admission: 12/23/17 01:23 Expected date of discharge: 12/26/17 Attending physician: Adal Mari Consults: 12/23/17 10:00 Consult Physician Routine Consulting Provider: Michael Vásquez Consult Reason/Comments: pna, copd Do you want consulting provider notified?: Yes 12/24/17 09:36 Consult Physician Routine Consulting Provider: Tavo Winchester Consult Reason/Comments: acute on chronic kidney disease Do you want consulting provider notified?: Yes Primary care physician: [facility] Course: 62-year-old female who presented to the emergency room with a chief complaint of shortness of breath. Patient reports SOB has been present for about a week. She also reports pain to the right side of her chest and states she felt something "pop" when she was coughing recently. She reports coughing but denies significant sputum production. Denies fever or chills. Denies nausea or vomiting. The patient has a history of COPD and is oxygen dependent at home with oxygen via NC at 4L. She states she does not see a lung doctor on an outpatient basis. She does report a heavy smoking history in the past but denies current nicotine use. She also has a history of diabetes mellitus, hyperlipidemia, hypertension, seizure disorder, anxiety, bipolar, and depression. Chest x-ray revealed increased opacities which may represent scarring versus atelectasis throughout the right lower and right medial lung. CT of the thorax was recommended. The patient then underwent a CT of the chest which revealed emphysema, right-sided pleural and pulmonary scarring and atelectasis. Acute pneumonia in the right lower lobe as possible. Multiple old rib fractures. Acute right posterior rib fractures of 6th and 9th rib. Laboratory data reveals WBC of 3.9. Hemoglobin 10.1. Bili count 225. Potassium 5.2. Sodium 143. Chloride 117. Carbon dioxide 15. BUN 38. Creatinine 2.5. GFR 20. Glucose 107. AST 13. ALT 16. Alkaline phosphatase 281. Troponin 0.016. BNP 2430. The patient was admitted to the hospital under the care of Dr. aMrie. The patient was evaluated by pulmonary during hospitalization. She received a course of Zithromax and ceftriaxone. Her respiratory status has improved. She was placed on IV Solu-Medrol which was weaned as patient tolerated. Patient's pain to her right chest has remained tolerable with Lilly. Patient requesting to have her Lilly prescription increased. Patient's Lilly was increased to every 6 hours during hospitalization but patient was instructed that she must follow up with her primary care physician and discuss this with him. Patient had one set of blood cultures completed which were positive for gram- positive cocci in clusters. Final culture came coagulase negative staph. Repeat culture was completed which is negative. The patient was also seen by nephrology during hospitalization. The patient has chronic kidney disease but has not followed up with nephrology on an outpatient basis. She was also found to have a metabolic acidosis due to her acute kidney injury. She was started on sodium bicarb which is to be continued at the time of discharge per nephrology. Her metformin has been held and is to continue to be held at the time of discharge. Additionally her hydrochlorothiazide was discontinued secondary to her acute kidney injury. The patient complained of increased tremors to her upper extremities and states that she was recently started on Mysoline on an outpatient basis. This was increased to TID dosing during hospitalization. The patient has improved and it was deemed stable for discharge per Dr. Marie DISCHARGE DIAGNOSIS: Acute exacerbation of chronic obstructive pulmonary disease Right lower lobe pneumonia, unspecified organism Acute fracture of right posterior sixth and ninth rib Acute on chronic hypoxic respiratory failure requiring supplemental oxygen secondary to COPD Diabetes mellitus, type II Acute kidney injury, creatinine 2.50 on admission, baseline creatinine 2.0, worsening Metabolic acidosis secondary to acute kidney injury Hyperkalemia, secondary to acute kidney injury, resolved Chronic kidney disease, stage IV, likely secondary to diabetic kidney disease with baseline creatinine 2.0 Hypertension Hyperlipidemia History of seizure disorder History of anxiety, bipolar disorder, and depression History of nicotine dependence, in remission per patient Positive blood cultures, growing gram positive cocci in clusters, final report positive for coagulase-negative staph indicating contaminated collection, repeat cultures are negative at 24 hour lorri Nurse practitioner note has been reviewed by physician. Signing provider agrees with the documented findings, assessment, and plan of care. Patient Condition at Discharge: Stable Plan - Discharge Summary New Discharge Prescriptions: New Bisoprolol [Zebeta] 5 mg PO DAILY #30 tablet Cefuroxime Axetil [Ceftin] 500 mg PO BID #10 tab Fluticasone Nasal Tiger [Flonase Nasal Tiger] 2 spray EA NOSTRIL DAILY #1 dispenser Loratadine [Claritin] 10 mg PO DAILY #30 tab Montelukast [Singulair] 10 mg PO HS #30 tab Primidone [Mysoline] 50 mg PO TID #90 tab Sodium Bicarbonate Tab 1,300 mg PO BID #120 tab predniSONE See Taper PO DIRECTED #30 tab Continue Sertraline [Zoloft] 200 mg PO DAILY Phenytoin Sodium Extended [Dilantin] 100 mg PO TID QUEtiapine FUMARATE 150 mg PO HS@1999 Albuterol Inhaler [Ventolin Hfa Inhaler] 2 puff INHALATION RT-Q6H PRN PRN Reason: Shortness Of Breath Folic Acid 1 mg PO DAILY HYDROcodone/APAP 10-325MG [Lilly 10-325] 1 tab PO TID PRN PRN Reason: Pain Gemfibrozil [Lopid] 1,200 mg PO HS Aclidinium Marion [Tudorza Pressair] 1 puff PO RT-BID busPIRone HCL [Buspar] 7.5 mg PO BID Cyclobenzaprine [Flexeril] 5 mg PO BID PRN PRN Reason: Muscle Spasm Discontinued Bisoprolol-Hctz 5-6.25 mg [Ziac 5-6.25] 1 tab PO DAILY metFORMIN HCL 1,000 mg PO BID Primidone [Mysoline] 50 mg PO BID Discharge Medication List Phenytoin Sodium Extended [Dilantin] 100 mg PO TID 11/29/15 [History] Sertraline [Zoloft] 200 mg PO DAILY 11/29/15 [History] Albuterol Inhaler [Ventolin Hfa Inhaler] 2 puff INHALATION RT-Q6H PRN 07/22/17 [ History] Folic Acid 1 mg PO DAILY 07/22/17 [History] QUEtiapine FUMARATE 150 mg PO HS@199907/22/17 [History] Gemfibrozil [Lopid] 1,200 mg PO HS 09/05/17 [History] HYDROcodone/APAP 10-325MG [Lilly 10-325] 1 tab PO TID PRN 09/05/17 [History] Aclidinium Marion [Tudorza Pressair] 1 puff PO RT-BID 12/23/17 [History] Cyclobenzaprine [Flexeril] 5 mg PO BID PRN 12/23/17 [History] busPIRone HCL [Buspar] 7.5 mg PO BID 12/23/17 [History] Bisoprolol [Zebeta] 5 mg PO DAILY #30 tablet 12/26/17 [Rx] Cefuroxime Axetil [Ceftin] 500 mg PO BID #10 tab 12/26/17 [Rx] Fluticasone Nasal Tiger [Flonase Nasal Tiger] 2 spray EA NOSTRIL DAILY #1 dispenser 12/26/17 [Rx] Loratadine [Claritin] 10 mg PO DAILY #30 tab 12/26/17 [Rx] Montelukast [Singulair] 10 mg PO HS #30 tab 12/26/17 [Rx] Primidone [Mysoline] 50 mg PO TID #90 tab 12/26/17 [Rx] Sodium Bicarbonate Tab 1,300 mg PO BID #120 tab 12/26/17 [Rx] predniSONE See Taper PO DIRECTED #30 tab 12/26/17 [Rx] Follow up Appointment(s)/Referral(s): Adal Mari Jr, DO [Primary Care Provider] - 1 Week Tavo Winchester DO [STAFF PHYSICIAN] - 2 Weeks Lavern Benjamin MD [STAFF PHYSICIAN] - 2 Weeks Discharge Disposition: HOME SELF-CARE
--- NOTE | 2017-12-26 11:56 | P.PN ---
Subjective Progress Note Date: 12/26/17 Principal diagnosis: Acute exacerbation of chronic obstructive pulmonary disease complicated by right lung pneumonia suspect community-acquired. Brie is a 62-year-old patient of Dr. Mari who presented to the emergency department on 12/22/2017 for evaluation of increased shortness of breath, cough , wheezing. Patient was having severe coughing spells at home, she states a week ago she had a coughing episode and felt something pop on the right side of her chest at about the mid axillary line. The pain is aching, and worse with deep inspiration, coughing or palpation. Denied any fever or chills, denied any change in her sputum color. Has been afebrile while in the hospital. X- ray was completed in the emergency department showed increased opacities which may represent scarring versus atelectasis throughout the right lower and right medial lung. Was also narrowing of the anterior costal space of multiple ribs on the right. Chest CT showed emphysema, right-sided pleural and pulmonary scarring and atelectasis. Multiple old rib fractures were noted, there was also acute right posterior rib fracture without any callus. Lab work did not show any evidence of leukocytosis, WBC of 3.9, hemoglobin is 10.1, d-dimer was negative at 0.55, potassium is 5.2, chloride is 117, CO2 was 15, B1 is 38, creatinine is 2.5, alkaline phosphatase was 281, cardiac enzymes were negative 1, proBNP was elevated 2430. Patient's past medical history is positive for COPD, diabetes mellitus type 2, hypertension, hyperlipidemia, seizure disorder, anxiety, bipolar, former smoker, former marijuana use. Patient states she no longer smokes or uses marijuana. Sees Dr. Benjamin in the pulmonary office for her severe oxygen-dependent COPD. Her maintenance inhalers include Tudorza Pressair, Ventolin inhaler. She was started on empiric antibiotics in the form of Zithromax and Rocephin, nebulized bronchodilators, and IV steroids. On 12/24/2017 clinically the patient is feeling better and the patient's pain along the right rib cage and the shortness of breath is also improved. No hemoptysis no pleurisy. She is using the bronchodilators and systemic steroids. There has been no other significant events overnight. Patient is known to have COPD. She has been maintained on Tudorza and Ventolin rescue inhaler Outpatient basis. Her current antibiotic coverage includes Rocephin and Zithromax combination. Patient is seen today on 12/25/2017 in follow-up on the regular medical floor. She is awake and alert in no acute distress. She is somewhat anxious as she has had a disruptive roommate. She is breathing slightly better today as compared to yesterday. Still not quite back to her baseline. Obtaining O2 saturations in the upper 90s on 2 L/m per nasal cannula. She's been afebrile. Follow-up blood cultures reveal no growth. Sputum reveals no growth. White count 6.0. The patient is seen again today 12/26/2017 in follow-up on the regular medical floor. She is currently sitting up at the bedside. She is awake and alert in no acute distress. She is breathing easier today as compared to yesterday. Continues good O2 saturations in the 90s on 4 L/m per nasal cannula. She's been afebrile. She remains on bronchodilators, steroids, empiric antibiotics. Objective - Vital Signs Vital signs: Vital Signs Temp 97.0 F L 12/26/17 06:00 Pulse 100 12/26/17 07:29 Resp 16 12/26/17 06:00 BP 162/95 12/26/17 06:00 Pulse Ox 96 12/26/17 06:00 Intake & Output 12/25/17 12/26/17 12/26/17 18:59 06:59 18:59 Intake Total 200 Balance 200 Intake: Oral 200 Other: Voiding Method Toilet Toilet # Voids 2 2 - Exam GENERAL EXAM: Alert, pleasant 62-year-old white female, comfortable in no apparent distress. HEAD: Normocephalic/atraumatic. EYES: Normal reaction of pupils, equal size. Conjunctiva pink, sclera white. NOSE: Clear with pink turbinates. THROAT: No erythema or exudates. NECK: No masses, no JVD, no thyroid enlargement, no adenopathy. CHEST: No chest wall deformity. Symmetrical expansion. LUNGS: Diminished breath sounds,prolongation of respiratory phase, and faint wheezes CVS: Regular rate and rhythm, normal S1 and S2, no gallops, no murmurs, no rubs ABDOMEN: Soft, nontender. No hepatosplenomegaly, normal bowel sounds, no guarding or rigidity. EXTREMITIES: No clubbing, no edema, no cyanosis, 2+ pulses and upper and lower extremities. MUSCULOSKELETAL: Muscle strength and tone normal. SPINE: No scoliosis or deformity SKIN: No rashes CENTRAL NERVOUS SYSTEM: Alert and oriented -3. No focal deficits, tone is normal in all 4 extremities. PSYCHIATRIC: Alert and oriented -3. Appropriate affect. Intact judgment and insight. - Labs CBC & Chem 7: 12/25/17 08:10 12/26/17 07:38 Labs: Abnormal Lab Results - Last 24 Hours (Table) 12/25/17 12/25/17 12/26/17 Range/Units 16:56 20:32 06:48 Chloride (98-107) mmol/L Carbon Dioxide (22-30) mmol/L BUN (7-17) mg/dL Creatinine (0.52-1.04) mg/dL POC Glucose (mg/dL) 145 H 122 H 109 H (75-99) mg/dL Calcium (8.4-10.2) mg/dL 12/26/17 12/26/17 Range/Units 07:38 11:41 Chloride 112 H (98-107) mmol/L Carbon Dioxide 17 L (22-30) mmol/L BUN 48 H (7-17) mg/dL Creatinine 2.49 H (0.52-1.04) mg/dL POC Glucose (mg/dL) 124 H (75-99) mg/dL Calcium 8.1 L (8.4-10.2) mg/dL Microbiology - Last 24 Hours (Table) 12/24/17 09:45 Blood Culture - Preliminary Blood No Growth after 24 hours 12/24/17 10:00 Blood Culture - Preliminary Blood No Growth after 24 hours 12/23/17 11:40 Gram Stain - Final Sputum Sputum Culture - Final Assessment and Plan Assessment: Impression: #1. Acute exacerbation of chronic obstructive pulmonary disease, related to a possible suspected right lung pneumonia, community- acquired #2. Right-sided rib fracture secondary to severe coughing spells, and a secondary right-sided chest pain #3. Non-anion gap metabolic acidosis secondary to chronic kidney disease #4. Severe oxygen-dependent COPD #5. History of nicotine dependence currently in remission, patient carries over [id number] smoking history #6. Hypertension, hyperlipidemia #7. Diabetes mellitus type 2 #8. Chronic kidney disease #9. Seizure disorder #10. Anxiety, depression Plan: The patient was seen and evaluated by Dr. Benjamin. She is improved today as compared to yesterday. She is cleared for discharge from the pulmonary standpoint. Complete her course of antibiotics. Complete prednisone taper. Home pulmonary medications. Follow-up in our office in 1-2 weeks' time. I, the cosigning physician, performed a history & physical examination of the patient. Lungs sounds with bilateral end expiratory wheeze. Diminished. Maintaining good O2 saturations in the 90s on 2 L/m per nasal cannula. I discussed the assessment and plan of care with my nurse practitioner, Kirstie Anne. I attest to the above note as dictated by her.
== END 2017-12-26 13:07 | disposition home or self-care (01) | DRG 190 ==
LOC: EC 20:52 → 4MS4W 12-23 01:23
PROVIDERS: ADMIT Family Medicine; ATTEND Family Medicine
DX: J43.9 Emphysema, unspecified (principal); J18.9 Pneumonia, unspecified organism; J96.21 Acute and chronic respiratory failure with hypoxia; N17.0 Acute kidney failure with tubular necrosis; E87.2 Acidosis; J98.11 Atelectasis; N18.4 Chronic kidney disease, stage 4 (severe); S22.41XA Multiple fractures of ribs, right side, initial encounter for closed fracture; E11.22 Type 2 diabetes mellitus with diabetic chronic kidney disease; E87.5 Hyperkalemia; D63.1 Anemia in chronic kidney disease; E78.5 Hyperlipidemia, unspecified; F41.9 Anxiety disorder, unspecified; G40.909 Epilepsy, unspecified, not intractable, without status epilepticus; I12.9 Hypertensive chronic kidney disease with stage 1 through stage 4 chronic kidney disease, or unspecified chronic kidney disease; J30.2 Other seasonal allergic rhinitis; F17.201 Nicotine dependence, unspecified, in remission; R07.89 Other chest pain; R25.1 Tremor, unspecified; F32.9 Major depressive disorder, single episode, unspecified; Z99.81 Dependence on supplemental oxygen; Z90.710 Acquired absence of both cervix and uterus; Z79.899 Other long term (current) drug therapy; Z79.84 Long term (current) use of oral hypoglycemic drugs; Z79.52 Long term (current) use of systemic steroids; Z88.0 Allergy status to penicillin; Z82.49 Family history of ischemic heart disease and other diseases of the circulatory system; Z83.3 Family history of diabetes mellitus
CPT/HCPCS: 36415; 71046; 71250; 80048; 80053; 81001; 82550; 82553; 82728; 83036; 83540; 83550; 83880; 84484; 85025; 85379; 85610; 85730; 87040; 87070; 87077; 87186; 87205; 93005; 94640; 94760; 96374; 99285

== ENCOUNTER 2018-01-04 14:41 | Inpatient (IN) | payer OTHER ==
[2018-01-04] MEDS ORDERED: SODIUM CHLORIDE 0.9% 1,000 ML IV ONE (15:09)
--- NOTE | 2018-01-04 15:22 | ED ---
Altered Mental Status HPI - General Chief Complaint: Altered Mental Status Stated Complaint: Confusion Time Seen by Provider: 01/04/18 15:00 Source: patient, family, RN notes reviewed Mode of arrival: wheelchair Limitations: altered mental status - History of Present Illness Initial Comments: This is a 62-year-old female with a history of a recent admission where she was treated for pneumonia who is been home about a week after being discharged on the second of this month was brought in by family because of progressively worsening confusion she apparently stopped taking her medications 5 days ago including her seizure medication she had 2 seizures apparently 2 days later but none since she had progressively worsening confusion no fevers chills nausea vomiting sweats no falls she apparently did not have her antibiotics until yesterday due to some insurance problems. She's not been using her inhalers. She does live at home with family members. She is on multiple medications including Dilantin which she just started taking again 4 days ago. She also has occasional cough no other modifying factors at this time MD Complaint: altered mental status, confusion - Related Data Home Medications Medication Instructions Recorded Confirmed Phenytoin Sodium Extended 100 mg PO TID 11/29/15 01/04/18 [Dilantin] Sertraline [Zoloft] 200 mg PO DAILY 11/29/15 01/04/18 Albuterol Inhaler [Ventolin Hfa 2 puff INHALATION RT-Q6H PRN 07/22/17 01/04/18 Inhaler] Folic Acid 1 mg PO DAILY 07/22/17 01/04/18 QUEtiapine FUMARATE 150 mg PO [id number]/22/17 01/04/18 Gemfibrozil [Lopid] 1,200 mg PO HS 09/05/17 01/04/18 HYDROcodone/APAP 10-325MG [[place] 1 tab PO TID PRN 09/05/17 01/04/18 10-325] Cyclobenzaprine [Flexeril] 5 mg PO BID PRN 12/23/17 01/04/18 Bisoprol/Hydrochlorothiazide 1 tab PO DAILY 01/04/18 01/04/18 [Bisoprolol-Hctz 5-6.25 mg Tab] Omeprazole 20 mg PO BID 01/04/18 01/04/18 metFORMIN HCL [Glucophage] 500 mg PO DAILY 01/04/18 01/04/18 Previous Rx's Medication Instructions Recorded Cefuroxime Axetil [Ceftin] 500 mg PO BID #10 tab 12/26/17 Fluticasone Nasal [place] [Flonase 2 spray EA NOSTRIL DAILY #1 12/26/17 Nasal [place]] dispenser Loratadine [Claritin] 10 mg PO DAILY #30 tab 12/26/17 Montelukast [Singulair] 10 mg PO HS #30 tab 12/26/17 Primidone [Mysoline] 50 mg PO TID #90 tab 12/26/17 Sodium Bicarbonate Tab 1,300 mg PO BID #120 tab 12/26/17 predniSONE See Taper PO DIRECTED #30 tab 12/26/17 Allergies Allergy/AdvReac Type Severity Reaction Status Date / Time Penicillins Allergy Mild Swelling Verified 01/04/18 15:40 Review of Systems ROS Statement: Those systems with pertinent positive or pertinent negative responses have been documented in the HPI. ROS Other: All systems not noted in ROS Statement are negative. Past Medical History Past Medical History: COPD, Diabetes Mellitus, Hyperlipidemia, Hypertension, Seizure Disorder History of Any Multi-Drug Resistant Organisms: None Reported Past Surgical History: Hysterectomy Past Anesthesia/Blood Transfusion Reactions: Unable to Obtain Past Psychological History: Anxiety, Bipolar, Depression Smoking Status: Never smoker Past Alcohol Use History: None Reported Past Drug Use History: Marijuana, Prescription Drug Abuse - Past Family History Mother Family Medical History: Diabetes Mellitus, Hypertension Father Family Medical History: Hypertension General Exam - General Exam Comments Initial Comments: This a well-developed well-nourished awake alert but confused female she knows it Saturday but does not know the season the month or year Limitations: altered mental status General appearance: alert, in no apparent distress Head exam: Present: atraumatic, normocephalic, normal inspection Eye exam: Present: normal appearance, PERRL, EOMI. Absent: scleral icterus, conjunctival injection, periorbital swelling ENT exam: Present: mucous membranes dry Neck exam: Present: normal inspection. Absent: tenderness, meningismus, lymphadenopathy Respiratory exam: Present: decreased breath sounds. Absent: respiratory distress, wheezes, rales, rhonchi, stridor Cardiovascular Exam: Present: regular rate, normal rhythm, normal heart sounds. Absent: systolic murmur, diastolic murmur, rubs, gallop, clicks GI/Abdominal exam: Present: soft, normal bowel sounds. Absent: distended, tenderness, guarding, rebound, rigid Extremities exam: Present: normal inspection, full ROM, normal capillary refill. Absent: tenderness, pedal edema, joint swelling, calf tenderness Back exam: Present: normal inspection Neurological exam: Present: alert, altered, CN II-XII intact Psychiatric exam: Present: normal affect, normal mood Skin exam: Present: warm, dry, intact, normal color. Absent: rash Course Vital Signs 01/04/18 14:49 Temperature 98.2 F Pulse Rate 74 Respiratory 20 Rate Blood Pressure 129/74 O2 Sat by Pulse 94 L Oximetry - Reevaluation(s) Reevaluation #1: 01/04/18 15:21 I did review the information from the previous admission. Medical Decision Making - Medical Decision Making I did discuss the findings with the patient and family as well as with Dr. Mari. Patient will be admitted for inpatient treatment - Lab Data Result diagrams: 01/04/18 15:23 01/04/18 15:23 Lab Results 01/04/18 01/04/18 01/04/18 Range/Units 15:23 15:23 15:23 WBC 3.2 L (3.8-10.6) k/uL RBC 4.42 (3.80-5.40) m/uL Hgb 13.6 D (11.4-16.0) gm/dL Hct 43.2 (34.0-46.0) % MCV 97.7 (80.0-100.0) fL MCH 30.7 (25.0-35.0) pg MCHC 31.5 (31.0-37.0) g/dL RDW 15.9 H (11.5-15.5) % Plt Count 178 (150-450) k/uL Neutrophils % 55 % Lymphocytes % 33 % Monocytes % 7 % Eosinophils % 3 % Basophils % 0 % Neutrophils # 1.8 (1.3-7.7) k/uL Lymphocytes # 1.1 (1.0-4.8) k/uL Monocytes # 0.2 (0-1.0) k/uL Eosinophils # 0.1 (0-0.7) k/uL Basophils # 0.0 (0-0.2) k/uL Hypochromasia Slight Poikilocytosis Slight Macrocytosis Slight PT (9.0-12.0) sec INR (<1.2) APTT (22.0-30.0) sec Sodium (137-145) mmol/L Potassium (3.5-5.1) mmol/L Chloride (98-107) mmol/L Carbon Dioxide (22-30) mmol/L Anion Gap mmol/L BUN (7-17) mg/dL Creatinine (0.52-1.04) mg/dL Est GFR (CKD-EPI)AfAm (>60 ml/min/1.73 sqM) Est GFR (CKD-EPI)NonAf (>60 ml/min/1.73 sqM) Glucose (74-99) mg/dL Plasma Lactic Acid Jd 1.3 (0.7-2.0) mmol/L Calcium (8.4-10.2) mg/dL Magnesium (1.6-2.3) mg/dL Total Bilirubin (0.2-1.3) mg/dL AST (14-36) U/L ALT (9-52) U/L Alkaline Phosphatase (38-126) U/L Ammonia 142 H (<30) umol/L Total Creatine Kinase 91 (30-135) U/L CK-MB (CK-2) 2.8 H* (0.0-2.4) ng/mL CK-MB (CK-2) Rel Index 3.1 Troponin I 0.042 H* (0.000-0.034) ng/mL Total Protein (6.3-8.2) g/dL Albumin (3.5-5.0) g/dL Urine Color Urine Appearance (Clear) Urine pH (5.0-8.0) Ur Specific [place] (1.001-1.035) Urine Protein (Negative) Urine Glucose (UA) (Negative) Urine Ketones (Negative) Urine Blood (Negative) Urine Nitrite (Negative) Urine Bilirubin (Negative) Urine Urobilinogen (<2.0) mg/dL Ur Leukocyte Esterase (Negative) Urine WBC (0-5) /hpf Ur Squamous Epith Cells (0-4) /hpf Amorphous Sediment (None) /hpf Urine Opiates Screen (NotDetected) Ur Oxycodone Screen (NotDetected) Urine Methadone Screen (NotDetected) Ur Propoxyphene Screen (NotDetected) Ur Barbiturates Screen (NotDetected) Phenytoin ug/mL U Tricyclic Antidepress (NotDetected) Ur Phencyclidine Scrn (NotDetected) Ur Amphetamines Screen (NotDetected) U Methamphetamines Scrn (NotDetected) U Benzodiazepines Scrn (NotDetected) Urine Cocaine Screen (NotDetected) U Marijuana (THC) Screen (NotDetected) 01/04/18 01/04/18 01/04/18 Range/Units 15:23 15:23 16:35 WBC (3.8-10.6) k/uL RBC (3.80-5.40) m/uL Hgb (11.4-16.0) gm/dL Hct (34.0-46.0) % MCV (80.0-100.0) fL MCH (25.0-35.0) pg MCHC (31.0-37.0) g/dL RDW (11.5-15.5) % Plt Count (150-450) k/uL Neutrophils % % Lymphocytes % % Monocytes % % Eosinophils % % Basophils % % Neutrophils # (1.3-7.7) k/uL Lymphocytes # (1.0-4.8) k/uL Monocytes # (0-1.0) k/uL Eosinophils # (0-0.7) k/uL Basophils # (0-0.2) k/uL Hypochromasia Poikilocytosis Macrocytosis PT 10.4 (9.0-12.0) sec INR 1.1 (<1.2) APTT 21.5 L (22.0-30.0) sec Sodium 141 (137-145) mmol/L Potassium 4.5 (3.5-5.1) mmol/L Chloride 113 H (98-107) mmol/L Carbon Dioxide 17 L (22-30) mmol/L Anion Gap 11 mmol/L BUN 37 H (7-17) mg/dL Creatinine 2.40 H (0.52-1.04) mg/dL Est GFR (CKD-EPI)AfAm 24 (>60 ml/min/1.73 sqM) Est GFR (CKD-EPI)NonAf 21 (>60 ml/min/1.73 sqM) Glucose 137 H (74-99) mg/dL Plasma Lactic Acid Jd (0.7-2.0) mmol/L Calcium 8.4 (8.4-10.2) mg/dL Magnesium 1.8 (1.6-2.3) mg/dL Total Bilirubin 0.2 (0.2-1.3) mg/dL AST 18 (14-36) U/L ALT 17 (9-52) U/L Alkaline Phosphatase 228 H (38-126) U/L Ammonia (<30) umol/L Total Creatine Kinase (30-135) U/L CK-MB (CK-2) (0.0-2.4) ng/mL CK-MB (CK-2) Rel Index Troponin I (0.000-0.034) ng/mL Total Protein 6.7 (6.3-8.2) g/dL Albumin 3.8 (3.5-5.0) g/dL Urine Color Light Yellow Urine Appearance Clear (Clear) Urine pH 6.5 (5.0-8.0) Ur Specific [place] 1.010 (1.001-1.035) Urine Protein 3+ H (Negative) Urine Glucose (UA) Negative (Negative) Urine Ketones Negative (Negative) Urine Blood Negative (Negative) Urine Nitrite Negative (Negative) Urine Bilirubin Negative (Negative) Urine Urobilinogen <2.0 (<2.0) mg/dL Ur Leukocyte Esterase Negative (Negative) Urine WBC 3 (0-5) /hpf Ur Squamous Epith Cells 5 H (0-4) /hpf Amorphous Sediment Occasional H (None) /hpf Urine Opiates Screen Detected H (NotDetected) Ur Oxycodone Screen Not Detected (NotDetected) Urine Methadone Screen Not Detected (NotDetected) Ur Propoxyphene Screen Not Detected (NotDetected) Ur Barbiturates Screen Detected H (NotDetected) Phenytoin <3.0 ug/mL U Tricyclic Antidepress Not Detected (NotDetected) Ur Phencyclidine Scrn Not Detected (NotDetected) Ur Amphetamines Screen Not Detected (NotDetected) U Methamphetamines Scrn Not Detected (NotDetected) U Benzodiazepines Scrn Not Detected (NotDetected) Urine Cocaine Screen Not Detected (NotDetected) U Marijuana (THC) Screen Not Detected (NotDetected) - EKG Data -: EKG Interpreted by Me EKG shows normal: sinus rhythm (Sinus rhythm rate 75. Interval 154 QRS 138 QT/ QTc 450/511 with bundle-branch block) - Radiology Data Radiology results: report reviewed (I did review the imaging and report no acute findings there is some evidence of increased pulmonary vascular congestion however. Recently complete report), image reviewed Disposition Clinical Impression: Hepatic encephalopathy, Chronic renal failure syndrome, Elevated troponin, Noncompliance Disposition: ADMITTED IP TO THIS [facility] Condition: Stable Referrals: Adal Mari Jr, [Primary Care Provider] - 1-2 days
[2018-01-04 15:32] LABS: Basophils % (A) 0 %; Eosinophils # (A) 0.1 k/uL (0-0.7); Eosinophils % (A) 3 %; HCT 43.2 % (34.0-46.0); Hypochromasia Slight; Lymphocytes # (A) 1.1 k/uL (1.0-4.8); Lymphocytes % (A) 33 %; MCH 30.7 pg (25.0-35.0); MCHC 31.5 g/dL (31.0-37.0); MCV 97.7 fL (80.0-100.0); Macrocytosis Slight; Mean Platelet Volume 7.1; Monocytes # (A) 0.2 k/uL (0-1.0); Monocytes % (A) 7 %; Neutrophils # (A) 1.8 k/uL (1.3-7.7); Neutrophils % (A) 55 %; Platelet Count 178 k/uL (150-450); Poikilocytosis Slight; RBC 4.42 m/uL (3.80-5.40); RDW 15.9 % (11.5-15.5); WBC 3.2 k/uL (3.8-10.6)
[2018-01-04 15:34] LABS: HGB 13.6 gm/dL (11.4-16.0)
[2018-01-04 15:41] LABS: Lactic Acid, Venous 1.3 mmol/L (0.7-2.0)
[2018-01-04 15:47] LABS: INR 1.1 (<1.2); Prothrombin Time 10.4 sec (9.0-12.0)
[2018-01-04 15:50] LABS: Partial Thromboplastin Time 21.5 sec (22.0-30.0)
[2018-01-04 15:55] LABS: ALT 17 U/L (9-52); AST 18 U/L (14-36); Albumin 3.8 g/dL (3.5-5.0); Alkaline Phosphatase 228 U/L (38-126); Anion Gap 11 mmol/L; Blood Urea Nitrogen 37 mg/dL (7-17); Calcium 8.4 mg/dL (8.4-10.2); Carbon Dioxide 17 mmol/L (22-30); Chloride 113 mmol/L (98-107); Glucose 137 mg/dL (74-99); Magnesium 1.8 mg/dL (1.6-2.3); Phenytoin (Dilantin) <3.0 ug/mL; Potassium 4.5 mmol/L (3.5-5.1); Sodium 141 mmol/L (137-145); Total Bilirubin 0.2 mg/dL (0.2-1.3); Total Protein 6.7 g/dL (6.3-8.2)
[2018-01-04 16:02] LABS: Creatine Kinase MB 2.8 ng/mL (0.0-2.4); Troponin I 0.042 ng/mL (0.000-0.034)
--- NOTE | 2018-01-04 16:47 | CT ---
EXAMINATION TYPE: CT brain wo con DATE OF EXAM: 01/04/2018 COMPARISON: 11/29/2015 INDICATION: Weakness and confusion DLP: 931.7 mGycm, Automated exposure control for dose reduction was used. CONTRAST: None CT of the brain is performed utilizing 3 mm thick sections through the posterior fossa and 3 mm thick sections through the remaining calvarium. Study is performed within 24 hours of arrival to the hosp ital. No abnormal hyperdensity is present to suggest an acute intracranial hemorrhage. No mass lesion is evident. No acute infarcts are evident. Ventricles and sulci are appropriate for the patient age. Paranasal sinuses and mastoid air cells within the [id number] are clear. IMPRESSIONS: 1. No acute intracranial process.
[2018-01-04 16:49] LABS: Amorphous Sediment,Urine Occasional /hpf; Appearance,Urine Clear (Clear); Bilirubin,Urine Negative (Negative); Blood,Urine Negative (Negative); Color,Urine Light Yellow; Glucose,Urine (UA) Negative (Negative); Ketones,Urine Negative (Negative); Leukocyte Esterase,Urine Negative (Negative); Nitrite,Urine Negative (Negative); PH, Urine 6.5 (5.0-8.0); Protein,Urine 3+ (Negative); Squamous Epithelial Cell,Urine 5 /hpf (0-4); Urobilinogen,Urine <2.0 mg/dL (<2.0); WBC,Urine 3 /hpf (0-5)
[2018-01-04 17:00] LABS: Amphetamine Screen,Urine Not Detected (NotDetected); Barbiturate Screen,Urine Detected (NotDetected); Benzodiazepines Screen,Urine Not Detected (NotDetected); Cocaine Screen,Urine Not Detected (NotDetected); Methadone Screen, Urine Not Detected (NotDetected); Opiate Screen,Urine Detected (NotDetected); Oxycodone Screen, Urine Not Detected (NotDetected); Phencyclidine Screen,Urine Not Detected (NotDetected); Tricyclic Antidepressant,Urine Not Detected (NotDetected); Urn Cannabinoid Scrn Not Detected (NotDetected)
--- NOTE | 2018-01-04 17:05 | XR ---
EXAMINATION TYPE: XR chest 2V DATE OF EXAM: 01/04/2018 COMPARISON: 12/22/2017 INDICATION: Altered mental status TECHNIQUE: Frontal and lateral views of the chest are obtained. FINDINGS: The heart size is normal. The pulmonary vasculature is prominent. A suspicious focal consolidation is not identified. There is mild increased linear lung markings abov e the right diaphragm suggestive for some atelectasis. Some pulmonary edema could be considered. Foca l eventration is in the posterior portion of the lungs on the lateral projection. Degree of inspirati on is limited. Findings appear similar to prior study.. IMPRESSION: 1. Correlate for volume overload. 2. Plate atelectasis right lung base.
[2018-01-04] MEDS ORDERED: ONDANSETRON 4 MG/2 ML VIAL IVP PRN (17:55)
[2018-01-04] MEDS ORDERED: NALOXONE 0.4 MG/ML 1 ML VIAL IV PRN (17:55)
[2018-01-04] MEDS ORDERED: ALBUTEROL NEBULIZED 2.5 MG/3 ML INHALATION PRN (18:01)
[2018-01-04] MEDS ORDERED: CYCLOBENZAPRINE 5 MG TAB PO PRN (18:01)
[2018-01-04 19:26] VITALS: BMI 31.1
[2018-01-04] MEDS: SODIUM CHLORIDE 0.9% 1,000 ML IV SCH (20:06)
[2018-01-04] MEDS: QUEtiapine 50 MG TAB PO SCH (20:08)
[2018-01-04] MEDS: MONTELUKAST 10 MG TAB PO SCH (20:08)
[2018-01-04] MEDS: SODIUM BICARBONATE TAB 650 MG TAB PO SCH (20:09)
[2018-01-04] MEDS: CEFDINIR 300 MG CAP PO SCH (20:09)
[2018-01-04] MEDS: PRIMIDONE 50 MG TAB PO SCH (20:09)
[2018-01-04] MEDS: PHENYTOIN SODIUM EXTENDED 100 MG CAP PO SCH (20:09)
[2018-01-04] MEDS: GEMFIBROZIL 600 MG TAB PO SCH (20:09)
[2018-01-04] MEDS: HYDROcodone/APAP 10-325MG 1 EACH TAB PO PRN (20:10)
[2018-01-04 20:33] LABS: Glucose,Whole Blood 149 mg/dL (75-99)
[2018-01-04] MEDS: LACTULOSE 20 GM/30 ML CUP PO SCH (23:47)
[2018-01-05] MEDS: SODIUM CHLORIDE 0.9% 1,000 ML IV SCH (05:27)
[2018-01-05 06:06] LABS: Glucose,Whole Blood 93 mg/dL (75-99)
[2018-01-05] MEDS: CEFDINIR 300 MG CAP PO SCH ×2 (08:37→20:48)
[2018-01-05] MEDS: BISOPROLOL-HCTZ 5-6.25 MG 1 EACH TAB PO SCH (08:37)
[2018-01-05] MEDS: PRIMIDONE 50 MG TAB PO SCH ×3 (08:37→20:50)
[2018-01-05] MEDS: PANTOPRAZOLE 40 MG TABLET PO SCH (08:37)
[2018-01-05] MEDS: FOLIC ACID 1 MG TAB PO SCH (08:37)
[2018-01-05] MEDS: PHENYTOIN SODIUM EXTENDED 100 MG CAP PO SCH ×3 (08:37→20:49)
[2018-01-05] MEDS: LORATADINE 10 MG TAB PO SCH (08:37)
[2018-01-05] MEDS: SODIUM BICARBONATE TAB 650 MG TAB PO SCH ×2 (08:38→20:48)
[2018-01-05] MEDS: SERTRALINE 100 MG TAB PO SCH (08:38)
[2018-01-05] MEDS: LACTULOSE 20 GM/30 ML CUP PO SCH ×3 (08:38→20:49)
[2018-01-05] MEDS ORDERED: metFORMIN 500 MG TAB PO SCH (09:00)
--- NOTE | 2018-01-05 09:04 | P.HPIM ---
History of Present Illness H&P Date: 01/05/18 Chief Complaint: Altered mental status Mrs. Lei is a 62-year-old female with a history of recently being admitted for pneumonia patient has been home about a week after being discharged on the second of the month apparently patient while she was in the hospital had some lapse in insurance coverage and stopped taking her meds approximately 5 days ago because she was regarding then afraid that she was curetted out of and had basically stopped taking her seizure meds and 2 episodes of grand mal seizure 2 days after coming home from the hospital but has not had any since however she has had worsening confusion no fever no chills no nausea no vomiting and again she stopped taking even the antibiotics because of insurance issues Review of Systems Constitutional: Reports as per HPI, Reports daytime sleepiness, Reports lethargy , Reports poor appetite Ears, nose, mouth and throat: Reports as per HPI Cardiovascular: Reports as per HPI, Reports high blood pressure, Reports shortness of breath Respiratory: Reports congestion, Reports dyspnea, Reports home oxygen Gastrointestinal: Reports as per HPI Genitourinary: Reports as per HPI Menstruation: Reports postmenopausal Musculoskeletal: Reports as per HPI Integumentary: Reports as per HPI Neurological: Reports seizures (Seizure disorder by history) Past Medical History Past Medical History: COPD, Diabetes Mellitus, Hyperlipidemia, Hypertension, Seizure Disorder History of Any Multi-Drug Resistant Organisms: None Reported Past Surgical History: Hysterectomy Past Anesthesia/Blood Transfusion Reactions: Unable to Obtain Past Psychological History: Anxiety, Bipolar, Depression Smoking Status: Never smoker Past Alcohol Use History: None Reported Past Drug Use History: Marijuana, Prescription Drug Abuse - Past Family History Mother Family Medical History: Diabetes Mellitus, Hypertension Father Family Medical History: Hypertension Medications and Allergies Home Medications Medication Instructions Recorded Confirmed Type Phenytoin Sodium Extended 100 mg PO TID 11/29/15 01/04/18 History [Dilantin] Sertraline [Zoloft] 200 mg PO DAILY 11/29/15 01/04/18 History Albuterol Inhaler [Ventolin Hfa 2 puff INHALATION RT-Q6H PRN 07/22/17 01/04/18 History Inhaler] Folic Acid 1 mg PO DAILY 07/22/17 01/04/18 History QUEtiapine FUMARATE 150 mg PO HS@199907/22/17 01/04/18 History Gemfibrozil [Lopid] 1,200 mg PO HS 09/05/17 01/04/18 History HYDROcodone/APAP 10-325MG [Hammond 1 tab PO TID PRN 09/05/17 01/04/18 History 10-325] Cyclobenzaprine [Flexeril] 5 mg PO BID PRN 12/23/17 01/04/18 History Cefuroxime Axetil [Ceftin] 500 mg PO BID #10 tab 12/26/17 01/04/18 Rx Fluticasone Nasal [place] [Flonase 2 spray EA NOSTRIL DAILY #1 12/26/17 01/04/18 Rx Nasal [place]] dispenser Loratadine [Claritin] 10 mg PO DAILY #30 tab 12/26/17 01/04/18 Rx Montelukast [Singulair] 10 mg PO HS #30 tab 12/26/17 01/04/18 Rx Primidone [Mysoline] 50 mg PO TID #90 tab 12/26/17 01/04/18 Rx Sodium Bicarbonate Tab 1,300 mg PO BID #120 tab 12/26/17 01/04/18 Rx predniSONE See Taper PO DIRECTED #30 tab 12/26/17 01/04/18 Rx Bisoprol/Hydrochlorothiazide 1 tab PO DAILY 01/04/18 01/04/18 History [Bisoprolol-Hctz 5-6.25 mg Tab] Omeprazole 20 mg PO BID 01/04/18 01/04/18 History metFORMIN HCL [Glucophage] 500 mg PO DAILY 01/04/18 01/04/18 History Allergies Allergy/AdvReac Type Severity Reaction Status Date / Time Penicillins Allergy Mild Swelling Verified 01/04/18 15:40 Physical Exam Osteopathic Statement: *. No significant issues noted on an osteopathic structural exam other than those noted in the History and Physical/Consult. Vitals: Vital Signs Temp Pulse Pulse Resp BP BP Pulse Ox 01/05/18 08:48 100 01/05/18 04:00 98 F 67 18 147/77 97 01/05/18 00:00 97.8 F 60 16 140/77 97 01/04/18 20:00 98 F 88 18 149/70 98 01/04/18 18:21 74 16 136/75 96 01/04/18 18:12 97.9 F 87 18 152/70 96 01/04/18 17:00 78 16 127/69 99 01/04/18 14:49 98.2 F 74 20 129/74 94 L Intake and Output 01/04/18 01/05/18 01/05/18 22:59 06:59 14:59 Intake Total 480 480 Balance 480 480 Intake: Oral 480 480 Other: Voiding Method Toilet Toilet # Voids 2 2 Weight 77.111 kg 75.4 kg General: [Patient awake, alert and oriented times 3. Patient in no acute distress.] HEENT: [PERRL. EOMI. No pharyngeal erythema or exudate.] Neck: [No adenopathy.] Cardiac: [Heart regular in rate and rhythm. No S3. No S4. No clicks, rubs. No murmur.] Lungs: Diminished breath sounds bilaterally, no consolidation however to auscultation Abdomen: [No mass. No organomegaly. Bowel sounds presnt and normoactive in all 4 quadrants.] Extremes: [No edema no cyanosis no claudication normal pulses] : [] Musculoskeletal: Large dowager's hump significant osteoporosis by history Skin: [No rash.] Neurologic: [No lateralizing deficits. CN II - XII grossly intact.] Lymphatic: [No adenopathy.] Results CBC & Chem 7: 01/04/18 15:23 01/04/18 15:23 Labs: Abnormal Lab Results - Last 24 Hours (Table) 01/04/18 01/04/18 01/04/18 Range/Units 15:23 15:23 15:23 WBC 3.2 L (3.8-10.6) k/uL RDW 15.9 H (11.5-15.5) % APTT (22.0-30.0) sec Chloride (98-107) mmol/L Carbon Dioxide (22-30) mmol/L BUN (7-17) mg/dL Creatinine (0.52-1.04) mg/dL Glucose (74-99) mg/dL POC Glucose (mg/dL) (75-99) mg/dL Alkaline Phosphatase (38-126) U/L Ammonia 142 H (<30) umol/L CK-MB (CK-2) 2.8 H* (0.0-2.4) ng/mL Troponin I 0.042 H* (0.000-0.034) ng/mL Urine Protein (Negative) Ur Squamous Epith Cells (0-4) /hpf Amorphous Sediment (None) /hpf Urine Opiates Screen (NotDetected) Ur Barbiturates Screen (NotDetected) 01/04/18 01/04/18 01/04/18 Range/Units 15:23 15:23 16:35 WBC (3.8-10.6) k/uL RDW (11.5-15.5) % APTT 21.5 L (22.0-30.0) sec Chloride 113 H (98-107) mmol/L Carbon Dioxide 17 L (22-30) mmol/L BUN 37 H (7-17) mg/dL Creatinine 2.40 H (0.52-1.04) mg/dL Glucose 137 H (74-99) mg/dL POC Glucose (mg/dL) (75-99) mg/dL Alkaline Phosphatase 228 H (38-126) U/L Ammonia (<30) umol/L CK-MB (CK-2) (0.0-2.4) ng/mL Troponin I (0.000-0.034) ng/mL Urine Protein 3+ H (Negative) Ur Squamous Epith Cells 5 H (0-4) /hpf Amorphous Sediment Occasional H (None) /hpf Urine Opiates Screen Detected H (NotDetected) Ur Barbiturates Screen Detected H (NotDetected) 01/04/18 Range/Units 20:32 WBC (3.8-10.6) k/uL RDW (11.5-15.5) % APTT (22.0-30.0) sec Chloride (98-107) mmol/L Carbon Dioxide (22-30) mmol/L BUN (7-17) mg/dL Creatinine (0.52-1.04) mg/dL Glucose (74-99) mg/dL POC Glucose (mg/dL) 149 H (75-99) mg/dL Alkaline Phosphatase (38-126) U/L Ammonia (<30) umol/L CK-MB (CK-2) (0.0-2.4) ng/mL Troponin I (0.000-0.034) ng/mL Urine Protein (Negative) Ur Squamous Epith Cells (0-4) /hpf Amorphous Sediment (None) /hpf Urine Opiates Screen (NotDetected) Ur Barbiturates Screen (NotDetected) Thrombosis Risk Factor Assmnt - Choose All That Apply Each Risk Factor Represents 2 Points: Age 61-74 years Thrombosis Risk Factor Assessment Total Risk Factor Score: 2 Thrombosis Risk Factor Assessment Level: Low Risk Assessment and Plan (1) Renal tubulopathy, encephalopathy, and liver failure syndrome Current Visit: Yes Status: Acute Code(s): Q87.89 - OTH CONGENITAL MALFORMATION SYNDROMES, NEC SNOMED Code(s): 072365874 (2) Chronic renal failure syndrome Current Visit: Yes Status: Acute Code(s): N18.9 - CHRONIC KIDNEY DISEASE, UNSPECIFIED SNOMED Code(s): 03014391 (3) Elevated troponin Current Visit: Yes Status: Acute Code(s): R74.8 - ABNORMAL LEVELS OF OTHER SERUM ENZYMES SNOMED Code(s): 902691526 (4) COPD (chronic obstructive pulmonary disease) Current Visit: No Status: Acute Code(s): J44.9 - CHRONIC OBSTRUCTIVE PULMONARY DISEASE, UNSPECIFIED SNOMED Code(s): 80830094 Plan: Patient has resumed all meds including Dilantin and Zoloft albuterol inhalers folic acid Acute time pending gemfibrozil Hammond as scheduled the supple all 5/6.25 mg omeprazole Metformin has been stopped patient was placed on a NovoLog scale weight based Patient has also resumed antibiotics in the form of Omnicef 300 mg by mouth twice a day Time with Patient: Greater than 30
[2018-01-05] MEDS: FLUTICASONE 50MCG/SPRAY NASAL 16GM EA NOSTRIL SCH (09:11)
[2018-01-05 11:48] LABS: Glucose,Whole Blood 126 mg/dL (75-99)
[2018-01-05] MEDS: INSULIN ASPART 100 UNIT/ML 1 ML 10 ML VIAL SQ SCH ×3 (11:57→21:14)
[2018-01-05] MEDS: HYDROcodone/APAP 10-325MG 1 EACH TAB PO PRN (13:33)
[2018-01-05 16:41] LABS: Glucose,Whole Blood 100 mg/dL (75-99)
[2018-01-05] MEDS: GEMFIBROZIL 600 MG TAB PO SCH (20:48)
[2018-01-05] MEDS: MONTELUKAST 10 MG TAB PO SCH (20:49)
[2018-01-05] MEDS: QUEtiapine 50 MG TAB PO SCH (20:49)
[2018-01-05 20:58] LABS: Glucose,Whole Blood 140 mg/dL (75-99)
[2018-01-06 05:33] LABS: Glucose,Whole Blood 110 mg/dL (75-99)
[2018-01-06] MEDS: SODIUM CHLORIDE 0.9% 1,000 ML IV SCH ×2 (05:56→07:59)
[2018-01-06] MEDS: INSULIN ASPART 100 UNIT/ML 1 ML 10 ML VIAL SQ SCH ×2 (05:56→11:45)
[2018-01-06] MEDS: PANTOPRAZOLE 40 MG TABLET PO SCH (06:03)
[2018-01-06] MEDS: SODIUM BICARBONATE TAB 650 MG TAB PO SCH (08:01)
[2018-01-06] MEDS: CEFDINIR 300 MG CAP PO SCH (08:01)
[2018-01-06] MEDS: BISOPROLOL-HCTZ 5-6.25 MG 1 EACH TAB PO SCH (08:01)
[2018-01-06] MEDS: FLUTICASONE 50MCG/SPRAY NASAL 16GM EA NOSTRIL SCH ×2 (08:03→08:06)
[2018-01-06] MEDS: PHENYTOIN SODIUM EXTENDED 100 MG CAP PO SCH (08:04)
[2018-01-06] MEDS: SERTRALINE 100 MG TAB PO SCH (08:04)
[2018-01-06] MEDS: LORATADINE 10 MG TAB PO SCH (08:04)
[2018-01-06] MEDS: LACTULOSE 20 GM/30 ML CUP PO SCH ×2 (08:04→08:10)
[2018-01-06] MEDS: FOLIC ACID 1 MG TAB PO SCH (08:05)
[2018-01-06] MEDS: PRIMIDONE 50 MG TAB PO SCH (08:05)
[2018-01-06 08:47] VITALS: TEMP 97.1
[2018-01-06 11:20] LABS: Basophils % (A) 0 %; Eosinophils # (A) 0.2 k/uL (0-0.7); Eosinophils % (A) 4 %; HCT 33.4 % (34.0-46.0); Hypochromasia Slight; Lymphocytes # (A) 1.1 k/uL (1.0-4.8); Lymphocytes % (A) 19 %; MCHC 31.7 g/dL (31.0-37.0); MCV 97.7 fL (80.0-100.0); Macrocytosis Slight; Mean Platelet Volume 7.1; Monocytes # (A) 0.4 k/uL (0-1.0); Monocytes % (A) 7 %; Neutrophils # (A) 3.9 k/uL (1.3-7.7); Neutrophils % (A) 69 %; Platelet Count 279 k/uL (150-450); Poikilocytosis Slight; RBC 3.41 m/uL (3.80-5.40); RDW 15.9 % (11.5-15.5); WBC 5.6 k/uL (3.8-10.6)
[2018-01-06 11:24] LABS: HGB 10.6 gm/dL (11.4-16.0)
[2018-01-06 11:25] LABS: Calcium 8.2 mg/dL (8.4-10.2)
[2018-01-06 11:37] LABS: Glucose,Whole Blood 119 mg/dL (75-99)
[2018-01-06 12:32] VITALS: BP 129/73; PULSE 77; RESP 17
--- NOTE | 2018-01-06 12:52 | CDI ---
Last Revision, April 2017 Documentation Clarification Form Date: 01/06/18 From: Jennifer Suarez Admit Date: 01/04/2018 5:55:00 PM Patient Name: Brie Lei Visit Number: [id number] ATTENTION: The Clinical Documentation Specialists (CDI) and [facility] Coding Staff appreciate your assistance in clarifying documentation. Please respond to the clarification below the line at the bottom and electronically sign. The CDI & [facility] Coding staff will review the response and follow-up if needed. Please note: Queries are made part of the Legal Health Record. If you have any questions, please contact the author of this message via ITS. Dr. Adal Mari, DO, Can you please render your opinion on the following documentation? Pt. presented with altered mental status. In the ED. note it states "hepatic encephalopathy". In the H&P it states "Renal tubulopathy, encephalopathy, and liver failure syndrome". History/Risk Factors: COPD, DM, HTN, hyperlipidemia, seizure disorder, prescription drug abuse Clinical Indicators: Current BUN 37- 01/06 38, CR 2.40 01/06 2.53, GFR 21 01/06 20 Per H&P and ED note the patient has Chronic renal failure syndrome Treatment: Patients medications include: IVF: 0.9 % at 100 ML/hr In order to capture the severity of condition, please clarify if the condition signifies: CKD Stage 4 (GFR 15-29) CKD Stage 5 (GFR <15) ESRD Other, please specify Unable to determine Please continue to document in your progress notes, under the line below and/or in the discharge summary in order to capture severity of illness and risk of mortality. Include clinical findings that support your diagnosis. MTDD
[2018-01-06 13:35] LABS: Hemoglobin A1C 4.9 % (4.0-6.0)
--- NOTE | 2018-01-06 14:18 | P.DS ---
Providers Date of admission: 01/04/18 17:55 Expected date of discharge: 01/06/18 Attending physician: Adal Mari Primary care physician: [facility] Course: 62-year-old female who presented to the emergency room due to confusion. The patient was recently hospitalized for pneumonia and rib fracture. She was discharged home in stable condition. Apparently the patient had some issues with her insurance coverage and the patient's decided to stop taking all of her medications. Her family noticed that she was becoming more confused and also had a seizure at home. She was admitted to the hospital for evaluation. No further seizure activity was noted. Patient's encephalopathy has resolved. She has been started back on her medications. Patient reports her insurance is active at this time. She reports she will continue to take her medications. She was deemed stable for discharge per Dr. Marie. She is to follow up on an outpatient basis. DISCHARGE DIAGNOSIS: Hepatic encephalopathy, resolved Medication noncompliance, patient abruptly stopped taking all her medications History of seizure disorder with recent seizure due to medication noncompliance Recent hospitalization for right lower lobe pneumonia and acute fracture of right posterior sixth and ninth rib Diabetes mellitus, type II Chronic kidney disease, stage IV Hypertension Hyperlipidemia History of anxiety, bipolar, and depression Nurse practitioner note has been reviewed by physician. Signing provider agrees with the documented findings, assessment, and plan of care. Patient Condition at Discharge: Stable Plan - Discharge Summary Discharge Rx Participant: No New Discharge Prescriptions: Continue Sertraline [Zoloft] 200 mg PO DAILY Phenytoin Sodium Extended [Dilantin] 100 mg PO TID QUEtiapine FUMARATE 150 mg PO HS@2000 Albuterol Inhaler [Ventolin Hfa Inhaler] 2 puff INHALATION RT-Q6H PRN PRN Reason: Shortness Of Breath Folic Acid 1 mg PO DAILY HYDROcodone/APAP 10-325MG [Fiatt 10-325] 1 tab PO TID PRN PRN Reason: Pain Gemfibrozil [Lopid] 1,200 mg PO HS Cyclobenzaprine [Flexeril] 5 mg PO BID PRN PRN Reason: Muscle Spasm Cefuroxime Axetil [Ceftin] 500 mg PO BID #10 tab Fluticasone Nasal [place] [Flonase Nasal Ernest] 2 spray EA NOSTRIL DAILY #1 dispenser Loratadine [Claritin] 10 mg PO DAILY #30 tab Montelukast [Singulair] 10 mg PO HS #30 tab Primidone [Mysoline] 50 mg PO TID #90 tab Sodium Bicarbonate Tab 1,300 mg PO BID #120 tab Omeprazole 20 mg PO BID Bisoprol/Hydrochlorothiazide [Bisoprolol-Hctz 5-6.25 mg Tab] 1 tab PO DAILY Discontinued predniSONE See Taper PO DIRECTED #30 tab metFORMIN HCL [Glucophage] 500 mg PO DAILY Discharge Medication List Phenytoin Sodium Extended [Dilantin] 100 mg PO TID 11/29/15 [History] Sertraline [Zoloft] 200 mg PO DAILY 11/29/15 [History] Albuterol Inhaler [Ventolin Hfa Inhaler] 2 puff INHALATION RT-Q6H PRN 07/22/17 [ History] Folic Acid 1 mg PO DAILY 07/22/17 [History] QUEtiapine FUMARATE 150 mg PO HS@199907/22/17 [History] Gemfibrozil [Lopid] 1,200 mg PO HS 09/05/17 [History] HYDROcodone/APAP 10-325MG [Fiatt 10-325] 1 tab PO TID PRN 09/05/17 [History] Cyclobenzaprine [Flexeril] 5 mg PO BID PRN 12/23/17 [History] Cefuroxime Axetil [Ceftin] 500 mg PO BID #10 tab 12/26/17 [Rx] Fluticasone Nasal Ernest [Flonase Nasal Ernest] 2 spray EA NOSTRIL DAILY #1 dispenser 12/26/17 [Rx] Loratadine [Claritin] 10 mg PO DAILY #30 tab 12/26/17 [Rx] Montelukast [Singulair] 10 mg PO HS #30 tab 12/26/17 [Rx] Primidone [Mysoline] 50 mg PO TID #90 tab 12/26/17 [Rx] Sodium Bicarbonate Tab 1,300 mg PO BID #120 tab 12/26/17 [Rx] Bisoprol/Hydrochlorothiazide [Bisoprolol-Hctz 5-6.25 mg Tab] 1 tab PO DAILY 04/13 [History] Omeprazole 20 mg PO BID 01/04/18 [History] Follow up Appointment(s)/Referral(s): Adal Mari Jr, [Primary Care Provider] - 1-2 days Activity/Diet/Wound Care/Special Instructions: Continue taking your antibiotic that you have at home until empty Discharge Disposition: HOME WITH HOME HEALTH SERVICES
== END 2018-01-06 13:39 | disposition home health service (06) | DRG 442 ==
LOC: EC 14:41 → 6SEL 17:55
PROVIDERS: ADMIT Family Medicine; ATTEND Family Medicine
DX: K72.90 Hepatic failure, unspecified without coma (principal); N18.4 Chronic kidney disease, stage 4 (severe); J44.9 Chronic obstructive pulmonary disease, unspecified; E78.5 Hyperlipidemia, unspecified; G40.909 Epilepsy, unspecified, not intractable, without status epilepticus; F31.9 Bipolar disorder, unspecified; R77.8 Other specified abnormalities of plasma proteins; F41.9 Anxiety disorder, unspecified; T42.0X6A Underdosing of hydantoin derivatives, initial encounter; I12.9 Hypertensive chronic kidney disease with stage 1 through stage 4 chronic kidney disease, or unspecified chronic kidney disease; E11.22 Type 2 diabetes mellitus with diabetic chronic kidney disease; Z90.710 Acquired absence of both cervix and uterus; Z82.49 Family history of ischemic heart disease and other diseases of the circulatory system; Z83.3 Family history of diabetes mellitus; Z87.01 Personal history of pneumonia (recurrent); Z91.120 Patient's intentional underdosing of medication regimen due to financial hardship; Z88.0 Allergy status to penicillin; Z79.899 Other long term (current) drug therapy; Z79.84 Long term (current) use of oral hypoglycemic drugs; Z79.51 Long term (current) use of inhaled steroids; Z79.52 Long term (current) use of systemic steroids
CPT/HCPCS: 36415; 70450; 71046; 80048; 80053; 80185; 80306; 81001; 82140; 82550; 82553; 83036; 83605; 83735; 84484; 85025; 85610; 85730; 87040; 93005; 94760; 96360; 99285

== ENCOUNTER 2018-02-17 22:07 | Inpatient (IN) | payer OTHER ==
[2018-02-17] MEDS ORDERED: IPRATROPIUM-ALBUTEROL 3 ML NEB INHALATION STA (22:51)
[2018-02-17] MEDS ORDERED: KETOROLAC 30 MG/ML 1 ML VIAL IVP STA (22:52)
--- NOTE | 2018-02-17 22:55 | ED ---
General Adult HPI - General Chief complaint: Shortness of Breath Stated complaint: tremors & rib pain Time Seen by Provider: 02/17/18 22:32 Source: patient, RN notes reviewed, old records reviewed Mode of arrival: wheelchair Limitations: no limitations - History of Present Illness Initial comments: 62-year-old female presenting with right lateral chest pain after coughing. Patient has history of end-stage COPD currently on 4 L of home oxygen. She states that over the past several days she has had worsening cough and dyspnea. This morning she coughed very hard and felt sudden onset pain in the right lateral chest wall. She has had pain in this location before which was related to rib fracture. Denies central chest pain. Denies fever or chills. Denies abdominal pain nausea vomiting. - Related Data Home Medications Medication Instructions Recorded Confirmed Phenytoin Sodium Extended 100 mg PO TID 11/29/15 02/17/18 [Dilantin] Sertraline [Zoloft] 200 mg PO DAILY 11/29/15 02/17/18 Albuterol Inhaler [Ventolin Hfa 2 puff INHALATION RT-Q6H PRN 07/22/17 02/17/18 Inhaler] Folic Acid 1 mg PO DAILY 07/22/17 02/17/18 QUEtiapine FUMARATE 150 mg PO HS@199907/22/17 02/17/18 Gemfibrozil [Lopid] 1,200 mg PO HS 09/05/17 02/17/18 busPIRone HCL 15 mg PO BID 02/17/18 02/17/18 Previous Rx's Medication Instructions Recorded Loratadine [Claritin] 10 mg PO DAILY #30 tab 12/26/17 Montelukast [Singulair] 10 mg PO HS #30 tab 12/26/17 Tamsulosin [Flomax] 0.4 mg PO PC-BRKFST #30 cap 01/30/18 Allergies Allergy/AdvReac Type Severity Reaction Status Date / Time Penicillins Allergy Mild Swelling Verified 02/17/18 22:54 Review of Systems ROS Statement: Those systems with pertinent positive or pertinent negative responses have been documented in the HPI. ROS Other: All systems not noted in ROS Statement are negative. Past Medical History Past Medical History: COPD, Diabetes Mellitus, Hyperlipidemia, Hypertension, Seizure Disorder History of Any Multi-Drug Resistant Organisms: None Reported Past Surgical History: Hysterectomy Past Anesthesia/Blood Transfusion Reactions: No Reported Reaction Past Psychological History: Anxiety, Bipolar, Depression Smoking Status: Former smoker Past Alcohol Use History: None Reported Past Drug Use History: Marijuana, Prescription Drug Abuse - Past Family History Mother Family Medical History: Diabetes Mellitus, Hypertension Father Family Medical History: Hypertension General Exam Limitations: no limitations General appearance: alert, in no apparent distress Head exam: Present: atraumatic, normocephalic Eye exam: Present: normal appearance, PERRL ENT exam: Present: normal exam Respiratory exam: Present: wheezes, chest wall tenderness, decreased breath sounds, prolonged expiratory Cardiovascular Exam: Present: regular rate, normal rhythm GI/Abdominal exam: Present: soft. Absent: distended, tenderness, guarding Extremities exam: Present: normal inspection, full ROM Neurological exam: Present: alert, oriented X3, CN II-XII intact. Absent: motor sensory deficit Skin exam: Present: warm, dry, intact. Absent: cyanosis, diaphoretic Course Vital Signs 02/17/18 02/17/18 02/17/18 22:24 23:08 23:25 Temperature 98.3 F Pulse Rate 89 89 85 Respiratory 24 16 Rate Blood Pressure 134/83 156/70 O2 Sat by Pulse 100 97 Oximetry 02/17/18 02/18/18 02/18/18 23:30 00:03 00:32 Temperature Pulse Rate 85 90 Respiratory 15 15 Rate Blood Pressure 155/89 145/65 O2 Sat by Pulse 99 98 Oximetry EKG Findings - EKG Comments: EKG Findings:: EKG: Normal sinus rhythm, left bundle-branch block rate of 89 NJ interval 178, QRS duration 104, QTC 493, there is some ST segment elevation in the precordial leads, negative for Scarbosa criteria. History of left bundle branch block. Medical Decision Making - Medical Decision Making 62-year-old female presenting with right lateral posterior rib pain. She does have history of rib fractures which she has injury secondary to coughing. She also has had worsening cough and dyspnea over the past several days. Denies fever or chills. Laboratory studies reveal normal white blood cell count, stable hemoglobin, patient is acidotic with CO2 of 13, with elevated BUN and creatinine. This is chronic for this patient. Creatinine 2.89 which is mildly elevated from previous of 2.25. Chest x-ray shows elevation of right hemidiaphragm and multiple rib fractures 78 and 9. This does appear old. No new pneumonia. Patient will be kept in observation for pain control, and treatment of COPD exacerbation. - Lab Data Result diagrams: 02/17/18 23:12 02/17/18 23:12 Lab Results 02/17/18 02/17/18 02/17/18 Range/Units 23:12 23:12 23:12 WBC 5.4 (3.8-10.6) k/uL RBC 3.32 L (3.80-5.40) m/uL Hgb 10.5 L (11.4-16.0) gm/dL Hct 33.0 L (34.0-46.0) % MCV 99.5 (80.0-100.0) fL MCH 31.5 (25.0-35.0) pg MCHC 31.7 (31.0-37.0) g/dL RDW 15.0 (11.5-15.5) % Plt Count 232 (150-450) k/uL Neutrophils % 68 % Lymphocytes % 20 % Monocytes % 8 % Eosinophils % 2 % Basophils % 0 % Neutrophils # 3.6 (1.3-7.7) k/uL Lymphocytes # 1.1 (1.0-4.8) k/uL Monocytes # 0.4 (0-1.0) k/uL Eosinophils # 0.1 (0-0.7) k/uL Basophils # 0.0 (0-0.2) k/uL Hypochromasia Slight Poikilocytosis Slight Macrocytosis Slight PT (9.0-12.0) sec INR (<1.2) APTT (22.0-30.0) sec Sodium 141 (137-145) mmol/L Potassium 5.3 H (3.5-5.1) mmol/L Chloride 115 H (98-107) mmol/L Carbon Dioxide 13 L (22-30) mmol/L Anion Gap 13 mmol/L BUN 59 H (7-17) mg/dL Creatinine 2.89 H (0.52-1.04) mg/dL Est GFR (CKD-EPI)AfAm 19 (>60 ml/min/1.73 sqM) Est GFR (CKD-EPI)NonAf 17 (>60 ml/min/1.73 sqM) Glucose 106 H (74-99) mg/dL Calcium 8.8 (8.4-10.2) mg/dL Magnesium 2.0 (1.6-2.3) mg/dL Total Bilirubin 0.4 (0.2-1.3) mg/dL AST 13 L (14-36) U/L ALT 9 (9-52) U/L Alkaline Phosphatase 295 H (38-126) U/L Total Creatine Kinase 62 (30-135) U/L CK-MB (CK-2) 1.4 (0.0-2.4) ng/mL CK-MB (CK-2) Rel Index 2.3 Troponin I 0.018 (0.000-0.034) ng/mL NT-Pro-B Natriuret Pep pg/mL Total Protein 7.4 (6.3-8.2) g/dL Albumin 4.2 (3.5-5.0) g/dL 02/17/18 02/17/18 Range/Units 23:12 23:12 WBC (3.8-10.6) k/uL RBC (3.80-5.40) m/uL Hgb (11.4-16.0) gm/dL Hct (34.0-46.0) % MCV (80.0-100.0) fL MCH (25.0-35.0) pg MCHC (31.0-37.0) g/dL RDW (11.5-15.5) % Plt Count (150-450) k/uL Neutrophils % % Lymphocytes % % Monocytes % % Eosinophils % % Basophils % % Neutrophils # (1.3-7.7) k/uL Lymphocytes # (1.0-4.8) k/uL Monocytes # (0-1.0) k/uL Eosinophils # (0-0.7) k/uL Basophils # (0-0.2) k/uL Hypochromasia Poikilocytosis Macrocytosis PT 10.0 (9.0-12.0) sec INR 1.0 (<1.2) APTT 22.4 (22.0-30.0) sec Sodium (137-145) mmol/L Potassium (3.5-5.1) mmol/L Chloride (98-107) mmol/L Carbon Dioxide (22-30) mmol/L Anion Gap mmol/L BUN (7-17) mg/dL Creatinine (0.52-1.04) mg/dL Est GFR (CKD-EPI)AfAm (>60 ml/min/1.73 sqM) Est GFR (CKD-EPI)NonAf (>60 ml/min/1.73 sqM) Glucose (74-99) mg/dL Calcium (8.4-10.2) mg/dL Magnesium (1.6-2.3) mg/dL Total Bilirubin (0.2-1.3) mg/dL AST (14-36) U/L ALT (9-52) U/L Alkaline Phosphatase (38-126) U/L Total Creatine Kinase (30-135) U/L CK-MB (CK-2) (0.0-2.4) ng/mL CK-MB (CK-2) Rel Index Troponin I (0.000-0.034) ng/mL NT-Pro-B Natriuret Pep 1980 pg/mL Total Protein (6.3-8.2) g/dL Albumin (3.5-5.0) g/dL Disposition Clinical Impression: COPD (chronic obstructive pulmonary disease), Rib fracture, Acute exacerbation of chronic obstructive airways disease Disposition: ADMITTED IP TO THIS HOSP Condition: Stable Is patient prescribed a controlled substance at d/c from ED?: No Referrals: Adal Mari Jr, [Primary Care Provider] - 1-2 days Decision to Admit Reason: Admit from EC Decision Date: 02/18/18 Decision Time: 01:26
[2018-02-17 23:31] LABS: Basophils % (A) 0 %; Eosinophils # (A) 0.1 k/uL (0-0.7); Eosinophils % (A) 2 %; HGB 10.5 gm/dL (11.4-16.0); Hypochromasia Slight; Lymphocytes # (A) 1.1 k/uL (1.0-4.8); Lymphocytes % (A) 20 %; MCH 31.5 pg (25.0-35.0); MCHC 31.7 g/dL (31.0-37.0); MCV 99.5 fL (80.0-100.0); Macrocytosis Slight; Mean Platelet Volume 7.7; Monocytes # (A) 0.4 k/uL (0-1.0); Monocytes % (A) 8 %; Neutrophils # (A) 3.6 k/uL (1.3-7.7); Neutrophils % (A) 68 %; Platelet Count 232 k/uL (150-450); Poikilocytosis Slight; RBC 3.32 m/uL (3.80-5.40); WBC 5.4 k/uL (3.8-10.6)
[2018-02-17 23:46] LABS: Partial Thromboplastin Time 22.4 sec (22.0-30.0)
[2018-02-17 23:54] LABS: Albumin 4.2 g/dL (3.5-5.0); Calcium 8.8 mg/dL (8.4-10.2); Potassium 5.3 mmol/L (3.5-5.1); Total Bilirubin 0.4 mg/dL (0.2-1.3); Total Protein 7.4 g/dL (6.3-8.2)
[2018-02-18 00:16] LABS: Creatine Kinase MB 1.4 ng/mL (0.0-2.4); Troponin I 0.018 ng/mL (0.000-0.034)
--- NOTE | 2018-02-18 00:29 | XR ---
EXAMINATION TYPE: XR chest 2V DATE OF EXAM: 02/18/2018 COMPARISON: 01/04/2018 HISTORY: Rib pain after coughing TECHNIQUE: Frontal and lateral views of the chest are obtained. FINDINGS: There is some elevation of the right diaphragm. There is no heart failure. Thoracic aorta is atheromatous. There is osteopenia. IMPRESSION: There is new elevated right diaphragm compared to old exam. Poor inspiration. Inspiratio n overall is improved compared to last exam. No gross heart failure. Aeration of the left lung is imp roved compared to old exam. There is probably some atelectasis at the right lung base unchanged.
--- NOTE | 2018-02-18 00:36 | XR ---
EXAMINATION TYPE: XR ribs RT DATE OF EXAM: 02/18/2018 COMPARISON: Chest x-ray 01/04/2018 HISTORY: Rib pain after coughing TECHNIQUE: 5 views FINDINGS: There is some atelectasis at the right lung base. There is no pneumothorax. There are multi ple contiguous posterior right rib fractures that are displaced up to 100%. Age of these fractures is not clear. There is osteopenia. This probably involves the 17th 8/9 ribs. IMPRESSION: Multiple posterior rib fractures are probably present on the old chest x-ray of 01/04/2018 . I do not see a definite acute fracture. There is some atelectasis at the right lung base. No pneumo thorax. Atelectasis is similar to old exam.
[2018-02-18] MEDS ORDERED: MORPHINE SULFATE 4 MG/ML SYRINGE IVP STA (01:00)
[2018-02-18] MEDS ORDERED: IPRATROPIUM-ALBUTEROL 3 ML NEB INHALATION PRN (01:31)
[2018-02-18] MEDS ORDERED: MORPHINE SULFATE 4 MG/ML SYRINGE IVP PRN (01:33)
[2018-02-18 03:05] VITALS: BMI 28.3
[2018-02-18 06:49] LABS: Glucose,Whole Blood 107 mg/dL (75-99)
[2018-02-18] MEDS: IPRATROPIUM-ALBUTEROL 3 ML NEB INHALATION SCH ×4 (07:02→20:30)
[2018-02-18] MEDS: LORATADINE 10 MG TAB PO SCH (07:35)
[2018-02-18] MEDS: PHENYTOIN SODIUM EXTENDED 100 MG CAP PO SCH ×3 (07:35→22:02)
[2018-02-18] MEDS ORDERED: predniSONE 20 MG TAB PO SCH (09:00)
[2018-02-18] MEDS: SODIUM CHLORIDE 0.9% 1,000 ML IV SCH (11:03)
[2018-02-18 11:05] LABS: Glucose,Whole Blood 130 mg/dL (75-99)
--- NOTE | 2018-02-18 12:37 | P.NPCON ---
History of Present Illness - Reason for Consult acute renal failure, chronic renal failure - History of Present Illness Reason for consultation: Acute kidney injury on chronic kidney disease History of present illness: Patient is a 62-year-old female seen in renal consultation for acute kidney injury on chronic kidney disease. Patient has chronic kidney disease stage IV secondary to diabetic kidney disease with baseline creatinine in the range of 2- 2.4. Patient presented to the hospital with cough and dyspnea. Patient has history of end-stage lung disease secondary to COPD and is maintained on home oxygen. Patient states the cough is nonproductive in nature. She denies vomiting or diarrhea. Admits to good urine output no hematuria or dysuria. Denies chest pain. Patient did receive a dose of Toradol in the ER. She is maintained on normal saline at 80 mL an hour. Oral intake is fair. She was noted to be acidotic with a bicarb level of 13. I don't see any diuretics and her home medications. Denies use of NSAIDs at home. No fever or chills. No evidence of fluid overload on chest x-ray. Vital signs are stable. General: The patient appeared well nourished and normally developed. HEENT: Head exam is unremarkable. Neck is without jugular venous distension. LUNGS: Lungs are clear to auscultation and percussion. Breath sounds decreased. HEART: Rate and Rhythm are regular. First and second heart sounds normal. No murmurs, rubs or gallops. ABDOMEN: Abdominal exam reveals normal bowel sounds. Non-tender and non- distended. No evidence of peritonitis. EXTREMITITES: No clubbing, cyanosis, or edema. Past Medical History Past Medical History: COPD, Diabetes Mellitus, Hyperlipidemia, Hypertension, Seizure Disorder History of Any Multi-Drug Resistant Organisms: None Reported Past Surgical History: Hysterectomy Past Anesthesia/Blood Transfusion Reactions: No Reported Reaction Past Psychological History: Anxiety, Bipolar, Depression Additional Psychological History / Comment(s): mother recently Smoking Status: Former smoker Past Alcohol Use History: None Reported Past Drug Use History: Marijuana, Prescription Drug Abuse - Past Family History Mother Family Medical History: Diabetes Mellitus, Hypertension Father Family Medical History: Hypertension Medications and Allergies Home Medications Medication Instructions Recorded Confirmed Type Phenytoin Sodium Extended 100 mg PO TID 11/29/15 02/17/18 History [Dilantin] Sertraline [Zoloft] 200 mg PO DAILY 11/29/15 02/17/18 History Albuterol Inhaler [Ventolin Hfa 2 puff INHALATION RT-Q6H PRN 07/22/17 02/17/18 History Inhaler] Folic Acid 1 mg PO DAILY 07/22/17 02/17/18 History QUEtiapine FUMARATE 150 mg PO HS@199907/22/17 02/17/18 History Gemfibrozil [Lopid] 1,200 mg PO HS 09/05/17 02/17/18 History Loratadine [Claritin] 10 mg PO DAILY #30 tab 12/26/17 02/17/18 Rx Montelukast [Singulair] 10 mg PO HS #30 tab 12/26/17 02/17/18 Rx Tamsulosin [Flomax] 0.4 mg PO PC-BRKFST #30 cap 01/30/18 02/17/18 Rx busPIRone HCL 15 mg PO BID 02/17/18 02/17/18 History Allergies Allergy/AdvReac Type Severity Reaction Status Date / Time Penicillins Allergy Mild Swelling Verified 02/17/18 22:54 Physical Exam Vitals: Vital Signs Temp Pulse Pulse Resp BP BP Pulse Ox 02/18/18 11:49 76 02/18/18 11:40 80 02/18/18 07:36 87 16 02/18/18 07:13 74 02/18/18 07:02 76 16 02/18/18 05:00 97.7 F 87 16 132/86 100 02/18/18 02:30 98.2 F 82 16 149/76 100 02/18/18 01:45 93 18 158/74 97 02/18/18 00:32 15 145/65 98 02/18/18 00:03 90 15 155/89 99 02/17/18 23:30 85 02/17/18 23:25 85 02/17/18 23:08 89 16 156/70 97 02/17/18 22:24 98.3 F 89 24 134/83 100 Intake and Output 02/17/18 02/18/18 02/18/18 22:59 06:59 14:59 Intake Total 580 Balance 580 Intake: Oral 580 Other: Voiding Method Bedside Commode Weight 74.843 kg 74.843 kg Results - Lab Results Most recent lab results Calcium 8.8 mg/dL (8.4-10.2) 02/17/18 23:12 Magnesium 2.0 mg/dL (1.6-2.3) 02/17/18 23:12 02/17/18 23:12 02/17/18 23:12 Assessment and Plan Plan: Assessment: 1. Nonoliguric acute kidney injury mostly prerenal from poor oral intake. She also received a dose of Toradol in the ER. Creatinine 2.8 and on admission. Labs from today are pending at this time. 2. Chronic kidney disease stage IV secondary to diabetic kidney disease with baseline creatinine in the range of 2-2.4. 3. Metabolic acidosis secondary to acute kidney injury. 4. Mild hyperkalemia secondary to acute kidney injury and metabolic acidosis. 5. Diabetes mellitus. 6. End-stage lung disease secondary to COPD currently maintained on prednisone as well as bronchodilator therapy. Plan: Continue normal saline at 80 mL an hour. Add oral sodium bicarbonate 1300 mg twice daily. Avoid nephrotoxic agents including NSAIDs. Encouraged oral intake. Repeat electrolytes in the morning. Follow-up morning labs. Thank you for the consultation. I will continue to follow the patient with you during her hospital stay.
--- NOTE | 2018-02-18 12:39 | P.HPIM ---
History of Present Illness H&P Date: 02/18/18 Chief Complaint: Rib pain 62-year-old female who presented to the emergency room with right lateral chest pain after coughing at home. The patient does have a history of right-sided rib fractures and was hospitalized in December 2017 for intractable pain, right lower lobe pneumonia, and exacerbation of COPD. The patient has also been hospitalized twice since that time in the middle of December 2017 in the evening of January 2018. A chest x-ray was completed in the emergency room showing no elevation right diaphragm compared to old exam. Poor inspiration. Aspiration overall is improved compared to last exam. Heart failure. Aeration of the left lung is improved. There is some atelectasis at the right lung base. A x-ray of the ribs was completed revealing multiple posterior rib fractures that are probably present on old chest x-ray. No evidence of an ache acute rib fracture. The patient was admitted to the hospital under observation to the care of Dr. Marie. The patient has had elevated ammonia levels during previous hospitalizations. She has been evaluated by GI during previous hospitalizations. She has responded well to lactulose during those admissions and encephalopathy improved , however GI felt that the patient did not require lactulose and it was discontinued per GI. The patient did have an ultrasound performed 01/29/2018 revealing 1.5 cm echogenic area along the gallbladder fossa and the left liver lobe. Findings favored to represent either a hemangioma or focal fat. Six- month follow-up ultrasound was recommended. The patient was to follow-up with GI on an outpatient basis. The patient was seen and examined at the bedside this morning in rounds with Dr. Marie. She appears confused. The patient is lethargic with occasional periods where she is lucid. The patient's speech is very slow. She denies chest pain or pressure. She does report pain to the right lateral chest wall. She did receive morphine this morning for pain. Review of Systems Those systems with pertinent positive or pertinent negative responses have been documented in the HPI Past Medical History Past Medical History: COPD, Diabetes Mellitus, Hyperlipidemia, Hypertension, Seizure Disorder History of Any Multi-Drug Resistant Organisms: None Reported Past Surgical History: Hysterectomy Past Anesthesia/Blood Transfusion Reactions: No Reported Reaction Past Psychological History: Anxiety, Bipolar, Depression Additional Psychological History / Comment(s): mother recently Smoking Status: Former smoker Past Alcohol Use History: None Reported Past Drug Use History: Marijuana, Prescription Drug Abuse - Past Family History Mother Family Medical History: Diabetes Mellitus, Hypertension Father Family Medical History: Hypertension Medications and Allergies Home Medications Medication Instructions Recorded Confirmed Type Phenytoin Sodium Extended 100 mg PO TID 11/29/15 02/17/18 History [Dilantin] Sertraline [Zoloft] 200 mg PO DAILY 11/29/15 02/17/18 History Albuterol Inhaler [Ventolin Hfa 2 puff INHALATION RT-Q6H PRN 07/22/17 02/17/18 History Inhaler] Folic Acid 1 mg PO DAILY 07/22/17 02/17/18 History QUEtiapine FUMARATE 150 mg PO HS@199907/22/17 02/17/18 History Gemfibrozil [Lopid] 1,200 mg PO HS 09/05/17 02/17/18 History Loratadine [Claritin] 10 mg PO DAILY #30 tab 12/26/17 02/17/18 Rx Montelukast [Singulair] 10 mg PO HS #30 tab 12/26/17 02/17/18 Rx Tamsulosin [Flomax] 0.4 mg PO PC-BRKFST #30 cap 01/30/18 02/17/18 Rx busPIRone HCL 15 mg PO BID 02/17/18 02/17/18 History Allergies Allergy/AdvReac Type Severity Reaction Status Date / Time Penicillins Allergy Mild Swelling Verified 02/17/18 22:54 Physical Exam Vitals: Vital Signs Temp Pulse Pulse Resp BP BP Pulse Ox 02/18/18 11:49 76 02/18/18 11:40 80 02/18/18 07:36 87 16 02/18/18 07:13 74 02/18/18 07:02 76 16 02/18/18 05:00 97.7 F 87 16 132/86 100 02/18/18 02:30 98.2 F 82 16 149/76 100 02/18/18 01:45 93 18 158/74 97 02/18/18 00:32 15 145/65 98 02/18/18 00:03 90 15 155/89 99 02/17/18 23:30 85 02/17/18 23:25 85 02/17/18 23:08 89 16 156/70 97 02/17/18 22:24 98.3 F 89 24 134/83 100 Intake and Output 02/17/18 02/18/18 02/18/18 22:59 06:59 14:59 Intake Total 580 Balance 580 Intake: Oral 580 Other: Voiding Method Bedside Commode Weight 74.843 kg 74.843 kg GENERAL: This is a 62-year-old female who is lethargic and appears confused at the time of examination. HEENT: Head is atraumatic, normocephalic. Pupils are equal, round, and reactive to light. Sclerae anicteric. Conjunctivae are clear. Mucus membranes of the mouth are moist. Neck is supple. RESPIRATORY: Clear to ausculation, diminished. No wheezes, rales, or rhonchi. No use of accessory muscles. Patient maintaining oxygen saturation greater than 92%. Pain and tenderness noted upon palpation of right lateral chest wall CARDIOVASCULAR: Regular rate and rhythm. S1 and S2 noted. No systolic or diastolic murmur auscultated. No JVD noted. No S3 or S4 noted. GASTROINTESTINAL: No distention noted. Abdomen soft and round. Normal active bowel sounds auscultated x 4 quadrants. No pain or tenderness noted upon palpation. INTEGUMENTARY: No cyanosis. No jaundice. No rashes noted. No cellulitis noted. EXTREMITIES: 2+ peripheral pulses. No evidence of peripheral edema. No calf tenderness noted. NEUROLOGIC: Cranial nerves II-XII intact. PSYCHIATRIC: Lethargic. Easily arousable to verbal stimuli. Oriented 1-2. Results CBC & Chem 7: 02/17/18 23:12 02/17/18 23:12 Labs: Abnormal Lab Results - Last 24 Hours (Table) 02/17/18 02/17/18 02/18/18 Range/Units 23:12 23:12 06:47 RBC 3.32 L (3.80-5.40) m/uL Hgb 10.5 L (11.4-16.0) gm/dL Hct 33.0 L (34.0-46.0) % Potassium 5.3 H (3.5-5.1) mmol/L Chloride 115 H (98-107) mmol/L Carbon Dioxide 13 L (22-30) mmol/L BUN 59 H (7-17) mg/dL Creatinine 2.89 H (0.52-1.04) mg/dL Glucose 106 H (74-99) mg/dL POC Glucose (mg/dL) 107 H (75-99) mg/dL AST 13 L (14-36) U/L Alkaline Phosphatase 295 H (38-126) U/L Ammonia (<30) umol/L 02/18/18 02/18/18 Range/Units 10:51 11:04 RBC (3.80-5.40) m/uL Hgb (11.4-16.0) gm/dL Hct (34.0-46.0) % Potassium (3.5-5.1) mmol/L Chloride (98-107) mmol/L Carbon Dioxide (22-30) mmol/L BUN (7-17) mg/dL Creatinine (0.52-1.04) mg/dL Glucose (74-99) mg/dL POC Glucose (mg/dL) 130 H (75-99) mg/dL AST (14-36) U/L Alkaline Phosphatase (38-126) U/L Ammonia 156 H (<30) umol/L Thrombosis Risk Factor Assmnt - Choose All That Apply Any of the Below Risk Factors Present?: Yes Each Factor Represents 1 point: Abnormal pulmonary function (COPD) Each Risk Factor Represents 2 Points: Age 61-74 years Thrombosis Risk Factor Assessment Total Risk Factor Score: 3 Thrombosis Risk Factor Assessment Level: Moderate Risk Assessment and Plan Plan: ASSESSMENT: Hyperammonemia, etiology unclear, patient does not have portal hypertension and has preserved synthetic liver function, however ammonia levels continue to be elevated and patient previously has had improvement encephalopathy with administration of lactulose Encephalopathy, suspect metabolic secondary to above along with component of IV narcotics Fracture of posterior sixth and ninth rib, December 2017 with increased pain, repeat chest x-ray shows no evidence of new fractures Acute kidney injury, creatinine 2.89 on admission, baseline creatinine 2-2.5 Hyperkalemia, secondary to above Metabolic acidosis, secondary to acute kidney injury Chronic kidney disease, stage IV, likely secondary to diabetic kidney disease with baseline creatinine creatinine near 2-2.5 COPD, no evidence of acute exacerbation Chronic hypoxic respiratory failure requiring supplemental oxygen Diabetes mellitus, type II Hypertension Hyperlipidemia History of seizure disorder History of anxiety, bipolar disorder, and depression History of nicotine dependence, in remission per patient PLAN: Consult nephrology for further evaluation of acute kidney injury Begin IV fluids at 80 mL an hour Discontinue morphine We will order [place] for pain control. Patient takes [place] 10 home. We will order [place] 5 at this time due to altered mental status. Lidoderm patches to right chest wall Hold narcotics if lethargy is present Consult GI for further evaluation due to persistently elevated ammonia levels Begin lactulose [address] Marie agreeable. Repeat ammonia level in AM Home meds as appropriate Monitor labs GI prophylaxis: Pepcid 20 mg by mouth twice a day DVT prophylaxis:[place] hose to bilateral lower extremities Monitor vital signs and address as appropriate Discharge planning: Patient to return home when stable Further recommendations pending patient's course Nurse practitioner note has been reviewed by physician. Signing provider agrees with the documented findings, assessment, and plan of care.
[2018-02-18 13:08] LABS: Calcium 8.4 mg/dL (8.4-10.2)
[2018-02-18] MEDS: SODIUM BICARBONATE TAB 650 MG TAB PO SCH ×2 (13:10→22:01)
[2018-02-18] MEDS: LIDOCAINE 5% PATCH TOPICAL SCH (13:10)
[2018-02-18] MEDS: LACTULOSE 20 GM/30 ML CUP PO SCH ×3 (13:12→22:01)
[2018-02-18 13:33] LABS: Potassium 6.4 mmol/L (3.5-5.1)
[2018-02-18] MEDS ORDERED: DEXTROSE 50%-WATER 50 ML SYRINGE IVP ONE (13:45)
[2018-02-18] MEDS ORDERED: INSULIN REGULAR 100 UNIT/ML VIAL IV ONE (13:45)
[2018-02-18] MEDS ORDERED: ALBUTEROL NEB (CONC) 2.5 MG/0.5 ML INHALATION ONE ×2 (13:45→14:45)
[2018-02-18] MEDS ORDERED: CALCIUM CHLORIDE 1,000 MG in SODIUM CHLORIDE 0.9% 100 ML IV ONE (13:55)
[2018-02-18] MEDS ORDERED: SODIUM BICARB 8.4% 50 ML SYR (1 MEQ/ML) IV ONE (13:56)
[2018-02-18] MEDS ORDERED: ALBUTEROL NEBULIZED 2.5 MG/3 ML INHALATION STA (14:23)
[2018-02-18] MEDS ORDERED: SODIUM CHLORIDE 0.9% NEBULIZ 3 ML INHALATION ONE (14:45)
[2018-02-18 15:48] LABS: Glucose,Whole Blood 209 mg/dL (75-99)
[2018-02-18] MEDS ORDERED: SODIUM POLYSTYRENE SULFONATE 15 GM/60 ML BOTTLE PO SCH (16:00)
[2018-02-18 17:03] LABS: Glucose,Whole Blood 187 mg/dL (75-99)
[2018-02-18 20:41] LABS: Glucose,Whole Blood 177 mg/dL (75-99)
[2018-02-18] MEDS: HYDROcodone/APAP 5-325MG 1 EACH TAB PO PRN (22:00)
[2018-02-18] MEDS: INSULIN ASPART 100 UNIT/ML 1 ML 10 ML VIAL SQ SCH (22:01)
[2018-02-18] MEDS: MONTELUKAST 10 MG TAB PO SCH (22:01)
[2018-02-18] MEDS: FAMOTIDINE 20 MG TAB PO SCH (22:01)
[2018-02-18] MEDS: QUEtiapine 50 MG TAB PO SCH (22:02)
[2018-02-19 04:08] LABS: Hemoglobin A1C 4.8 % (4.0-6.0)
[2018-02-19] MEDS: HYDROcodone/APAP 5-325MG 1 EACH TAB PO PRN ×3 (05:26→21:40)
[2018-02-19 07:09] LABS: Glucose,Whole Blood 97 mg/dL (75-99)
[2018-02-19] MEDS: IPRATROPIUM-ALBUTEROL 3 ML NEB INHALATION SCH ×4 (07:43→20:00)
[2018-02-19 08:29] LABS: Albumin 3.4 g/dL (3.5-5.0); Calcium 8.1 mg/dL (8.4-10.2); Potassium 4.4 mmol/L (3.5-5.1); Total Bilirubin 0.3 mg/dL (0.2-1.3); Total Protein 6.3 g/dL (6.3-8.2)
[2018-02-19] MEDS: LACTULOSE 20 GM/30 ML CUP PO SCH (08:52)
[2018-02-19] MEDS: PHENYTOIN SODIUM EXTENDED 100 MG CAP PO SCH ×3 (08:52→21:37)
[2018-02-19] MEDS: LORATADINE 10 MG TAB PO SCH (08:52)
[2018-02-19] MEDS: SODIUM BICARBONATE TAB 650 MG TAB PO SCH ×2 (08:52→21:37)
[2018-02-19] MEDS: TAMSULOSIN 0.4 MG CAP.ER.24H PO SCH (08:52)
[2018-02-19] MEDS: SERTRALINE 100 MG TAB PO SCH (08:52)
[2018-02-19] MEDS: FAMOTIDINE 20 MG TAB PO SCH (08:52)
[2018-02-19] MEDS: LIDOCAINE 5% PATCH TOPICAL SCH (08:52)
[2018-02-19 10:43] LABS: Basophils % (A) 0 %; Eosinophils # (A) 0.2 k/uL (0-0.7); Eosinophils % (A) 4 %; HCT 28.8 % (34.0-46.0); HGB 9.2 gm/dL (11.4-16.0); Hypochromasia Moderate; Lymphocytes # (A) 1.1 k/uL (1.0-4.8); Lymphocytes % (A) 22 %; MCH 32.5 pg (25.0-35.0); MCHC 31.9 g/dL (31.0-37.0); Macrocytosis Slight; Monocytes # (A) 0.4 k/uL (0-1.0); Monocytes % (A) 7 %; Neutrophils # (A) 3.2 k/uL (1.3-7.7); Neutrophils % (A) 65 %; Platelet Count 183 k/uL (150-450); RBC 2.82 m/uL (3.80-5.40); RDW 15.1 % (11.5-15.5); WBC 4.9 k/uL (3.8-10.6)
--- NOTE | 2018-02-19 11:18 | P.PN ---
Subjective Patient is seen in follow for acute kidney injury on chronic kidney disease. Patient has chronic kidney disease stage IV with baseline creatinine in the range of 2-2.4 secondary to diabetic kidney disease. Creatinine peaked at 3.14 on February 18 and is down to 2.98 today. Oral intake is fair. Patient had hematuria this morning. States she has history of kidney stones. She is currently undergoing a renal ultrasound. No vomiting or diarrhea. Vital signs are stable. General: The patient appeared well nourished and normally developed. HEENT: Head exam is unremarkable. Neck is without jugular venous distension. LUNGS: Lungs are clear to auscultation and percussion. Breath sounds decreased. HEART: Rate and Rhythm are regular. First and second heart sounds normal. No murmurs, rubs or gallops. ABDOMEN: Abdominal exam reveals normal bowel sounds. Non-tender and non- distended. No evidence of peritonitis. EXTREMITITES: No clubbing, cyanosis, or edema. Objective - Vital Signs Vital signs: Vital Signs Temp 97.1 F L 02/19/18 05:23 Pulse 92 02/19/18 07:58 Resp 20 02/19/18 05:23 BP 163/68 02/19/18 05:23 Pulse Ox 97 02/19/18 05:23 Intake & Output 02/18/18 02/19/18 02/19/18 18:59 06:59 18:59 Other: Voiding Method Bedside Commode Bedside Commode # Voids 1 # Bowel Movements 1 1 - Labs CBC & Chem 7: 02/19/18 07:49 02/19/18 07:49 Labs: Abnormal Lab Results - Last 24 Hours (Table) 02/18/18 02/18/18 02/18/18 Range/Units 10:51 12:15 15:40 RBC (3.80-5.40) m/uL Hgb (11.4-16.0) gm/dL Hct (34.0-46.0) % MCV (80.0-100.0) fL Potassium 6.4 H* (3.5-5.1) mmol/L Chloride 115 H (98-107) mmol/L Carbon Dioxide 15 L (22-30) mmol/L BUN 68 H (7-17) mg/dL Creatinine 3.14 H (0.52-1.04) mg/dL Glucose 116 H (74-99) mg/dL POC Glucose (mg/dL) 209 H (75-99) mg/dL Calcium (8.4-10.2) mg/dL AST (14-36) U/L ALT (9-52) U/L Alkaline Phosphatase (38-126) U/L Ammonia 156 H (<30) umol/L Albumin (3.5-5.0) g/dL 02/18/18 02/18/18 02/19/18 Range/Units 17:02 20:40 07:49 RBC (3.80-5.40) m/uL Hgb (11.4-16.0) gm/dL Hct (34.0-46.0) % MCV (80.0-100.0) fL Potassium (3.5-5.1) mmol/L Chloride 115 H (98-107) mmol/L Carbon Dioxide 17 L (22-30) mmol/L BUN 63 H (7-17) mg/dL Creatinine 2.98 H (0.52-1.04) mg/dL Glucose (74-99) mg/dL POC Glucose (mg/dL) 187 H 177 H (75-99) mg/dL Calcium 8.1 L (8.4-10.2) mg/dL AST 13 L (14-36) U/L ALT 6 L (9-52) U/L Alkaline Phosphatase 236 H (38-126) U/L Ammonia (<30) umol/L Albumin 3.4 L (3.5-5.0) g/dL 02/19/18 Range/Units 07:49 RBC 2.82 L (3.80-5.40) m/uL Hgb 9.2 L (11.4-16.0) gm/dL Hct 28.8 L (34.0-46.0) % MCV 102.0 H (80.0-100.0) fL Potassium (3.5-5.1) mmol/L Chloride (98-107) mmol/L Carbon Dioxide (22-30) mmol/L BUN (7-17) mg/dL Creatinine (0.52-1.04) mg/dL Glucose (74-99) mg/dL POC Glucose (mg/dL) (75-99) mg/dL Calcium (8.4-10.2) mg/dL AST (14-36) U/L ALT (9-52) U/L Alkaline Phosphatase (38-126) U/L Ammonia (<30) umol/L Albumin (3.5-5.0) g/dL Assessment and Plan Plan: Assessment: 1. Nonoliguric acute kidney injury mostly prerenal from poor oral intake. She also received a dose of Toradol in the ER. Creatinine peaked at 3.14 this admission - 2.98 today. 2. Chronic kidney disease stage IV secondary to diabetic kidney disease with baseline creatinine in the range of 2-2.4. 3. Metabolic acidosis secondary to acute kidney injury. 4. Hyperkalemia secondary to acute kidney injury and metabolic acidosis. Improved with medical management. 5. Diabetes mellitus. 6. End-stage lung disease secondary to COPD currently maintained on prednisone as well as bronchodilator therapy. 7. Hematuria. Possibly from kidney stone. Plan: Decrease normal saline to 50 mL an hour. Maintain oral sodium bicarbonate 1300 mg twice daily. Avoid nephrotoxic agents including NSAIDs. Encouraged oral intake. Follow-up renal ultrasound. Check UA.
--- NOTE | 2018-02-19 11:34 | US ---
EXAMINATION TYPE: US kidneys/renal and bladder DATE OF EXAM: 02/19/2018 COMPARISON: CLINICAL HISTORY: hematuria, hx of R kidney stone . hx of renal stones and cyst. Macroscopic hematur ia. Patient was scanned portable. EXAM MEASUREMENTS: Right Kidney: 9.4 x 5.3 x 5.0 cm Left Kidney: 8.4 x 3.9 x 4.1 cm Right Kidney: Multiple cystic appearing lesions seen, largest lateral - 1.3 x 1.1 x 1.1 cm. Echogeni c focus with shadow in lower pole - 1.0 x 0.7 cm Left Kidney: Appears lobular and echogenic. Multiple cystic appearing lesions seen, largest upper po le = 2.0 x 1.8 x 1.6 cm Bladder: distended, wnl as visualized Bilateral Jets not seen There is no evidence for hydronephrosis at this point in time. No nephrolithiasis is seen. No solid masses are identified. The urinary bladder is anechoic. Bilateral ureteral jets are seen. IMPRESSION: Bilateral simple appearing cysts are noted.
[2018-02-19 11:43] LABS: Glucose,Whole Blood 107 mg/dL (75-99)
[2018-02-19] MEDS: INSULIN ASPART 100 UNIT/ML 1 ML 10 ML VIAL SQ SCH ×4 (12:15→20:08)
[2018-02-19] MEDS: FOLIC ACID 1 MG TAB PO SCH (12:54)
--- NOTE | 2018-02-19 14:03 | P.PN ---
Subjective Progress Note Date: 02/19/18 62-year-old female who presented to the emergency room with right lateral chest pain after coughing at home. The patient does have a history of right-sided rib fractures and was hospitalized in December 2017 for intractable pain, right lower lobe pneumonia, and exacerbation of COPD. The patient has also been hospitalized twice since that time in the middle of December 2017 in the evening of January 2018. A chest x-ray was completed in the emergency room showing no elevation right diaphragm compared to old exam. Poor inspiration. Aspiration overall is improved compared to last exam. Heart failure. Aeration of the left lung is improved. There is some atelectasis at the right lung base. A x-ray of the ribs was completed revealing multiple posterior rib fractures that are probably present on old chest x-ray. No evidence of an ache acute rib fracture. The patient was admitted to the hospital under observation to the care of Dr. Marie. The patient has had elevated ammonia levels during previous hospitalizations. She has been evaluated by GI during previous hospitalizations. She has responded well to lactulose during those admissions and encephalopathy improved , however GI felt that the patient did not require lactulose and it was discontinued per GI. The patient did have an ultrasound performed 01/29/2018 revealing 1.5 cm echogenic area along the gallbladder fossa and the left liver lobe. Findings favored to represent either a hemangioma or focal fat. Six- month follow-up ultrasound was recommended. The patient was to follow-up with GI on an outpatient basis. The patient was seen and examined at the bedside this morning in rounds with Dr. Marie. She appears confused. The patient is lethargic with occasional periods where she is lucid. The patient's speech is very slow. She denies chest pain or pressure. She does report pain to the right lateral chest wall. She did receive morphine this morning for pain. 02/19/2018 Patient seen and examined at the bedside this morning. Patient is awake and alert. Patient oriented x 3 during examination but mental status is not back to patients baseline. Patient had an episode of gross hematuria this morning, which is new. She does report history of right kidney stone. She also complains of alot of right flank pain. [employer] TEACHER and RN performed visual examination of patients genital region as patient has extremely long fingernails and there was concern from nursing that she may have scratched herself while using the bathroom which may be attributing to the blood. No obvious signs of abrasions noted. Patient did have dried blood near rectum. She denies any blood in her stool. Potassium this morning is 4.4. Ammonia level is down to 44. GI consult has been requested. Objective - Vital Signs Vital signs: Vital Signs Temp 97.1 F L 02/19/18 05:23 Pulse 92 02/19/18 07:58 Resp 20 02/19/18 05:23 BP 163/68 02/19/18 05:23 Pulse Ox 97 02/19/18 05:23 Intake & Output 02/18/18 02/19/18 02/19/18 18:59 06:59 18:59 Other: Voiding Method Bedside Commode Bedside Commode # Voids 1 # Bowel Movements 1 1 - Exam GENERAL: This is a 62-year-old female who is in no acute distress at the time of examination. HEENT: Head is atraumatic, normocephalic. Pupils are equal, round, and reactive to light. Sclerae anicteric. Conjunctivae are clear. Mucus membranes of the mouth are moist. Neck is supple. RESPIRATORY: Clear to ausculation, diminished. No wheezes, rales, or rhonchi. No use of accessory muscles. Patient maintaining oxygen saturation greater than 92%. Pain and tenderness noted upon palpation of right lateral chest wall CARDIOVASCULAR: Regular rate and rhythm. S1 and S2 noted. No systolic or diastolic murmur auscultated. No JVD noted. No S3 or S4 noted. GASTROINTESTINAL: No distention noted. Abdomen soft and round. Normal active bowel sounds auscultated x 4 quadrants. No pain or tenderness noted upon palpation. Patient does have small amount of dried blood around rectum. INTEGUMENTARY: No cyanosis. No jaundice. No rashes noted. No cellulitis noted. EXTREMITIES: 2+ peripheral pulses. No evidence of peripheral edema. No calf tenderness noted. NEUROLOGIC: Cranial nerves II-XII intact. PSYCHIATRIC: Awake and alert. Oriented 3 currently however not back to her baseline. - Labs CBC & Chem 7: 02/19/18 07:49 02/19/18 07:49 Labs: Abnormal Lab Results - Last 24 Hours (Table) 02/18/18 02/18/18 02/18/18 Range/Units 12:15 15:40 17:02 RBC (3.80-5.40) m/uL Hgb (11.4-16.0) gm/dL Hct (34.0-46.0) % MCV (80.0-100.0) fL Potassium 6.4 H* (3.5-5.1) mmol/L Chloride 115 H (98-107) mmol/L Carbon Dioxide 15 L (22-30) mmol/L BUN 68 H (7-17) mg/dL Creatinine 3.14 H (0.52-1.04) mg/dL Glucose 116 H (74-99) mg/dL POC Glucose (mg/dL) 209 H 187 H (75-99) mg/dL Calcium (8.4-10.2) mg/dL AST (14-36) U/L ALT (9-52) U/L Alkaline Phosphatase (38-126) U/L Ammonia (<30) umol/L Albumin (3.5-5.0) g/dL 02/18/18 02/19/18 02/19/18 Range/Units 20:40 07:49 07:49 RBC (3.80-5.40) m/uL Hgb (11.4-16.0) gm/dL Hct (34.0-46.0) % MCV (80.0-100.0) fL Potassium (3.5-5.1) mmol/L Chloride 115 H (98-107) mmol/L Carbon Dioxide 17 L (22-30) mmol/L BUN 63 H (7-17) mg/dL Creatinine 2.98 H (0.52-1.04) mg/dL Glucose (74-99) mg/dL POC Glucose (mg/dL) 177 H (75-99) mg/dL Calcium 8.1 L (8.4-10.2) mg/dL AST 13 L (14-36) U/L ALT 6 L (9-52) U/L Alkaline Phosphatase 236 H (38-126) U/L Ammonia 44 H (<30) umol/L Albumin 3.4 L (3.5-5.0) g/dL 02/19/18 02/19/18 Range/Units 07:49 11:30 RBC 2.82 L (3.80-5.40) m/uL Hgb 9.2 L (11.4-16.0) gm/dL Hct 28.8 L (34.0-46.0) % MCV 102.0 H (80.0-100.0) fL Potassium (3.5-5.1) mmol/L Chloride (98-107) mmol/L Carbon Dioxide (22-30) mmol/L BUN (7-17) mg/dL Creatinine (0.52-1.04) mg/dL Glucose (74-99) mg/dL POC Glucose (mg/dL) 107 H (75-99) mg/dL Calcium (8.4-10.2) mg/dL AST (14-36) U/L ALT (9-52) U/L Alkaline Phosphatase (38-126) U/L Ammonia (<30) umol/L Albumin (3.5-5.0) g/dL Assessment and Plan Plan: ASSESSMENT: Hyperammonemia, etiology unclear, patient does not have portal hypertension and has preserved synthetic liver function, however ammonia levels continue to be elevated and patient previously has had improvement encephalopathy with administration of lactulose Encephalopathy, suspect metabolic secondary to above along with component of IV narcotics Fracture of posterior sixth and ninth rib, December 2017 with increased pain, repeat chest x-ray shows no evidence of new fractures Acute kidney injury, creatinine 2.89 on admission, baseline creatinine 2-2.5 Hyperkalemia, secondary to above, resolved Metabolic acidosis, secondary to acute kidney injury Chronic kidney disease, stage IV, likely secondary to diabetic kidney disease with baseline creatinine creatinine near 2-2.5 COPD, no evidence of acute exacerbation Chronic hypoxic respiratory failure requiring supplemental oxygen Diabetes mellitus, type II Hypertension Hyperlipidemia History of seizure disorder History of anxiety, bipolar disorder, and depression History of nicotine dependence, in remission per patient Gross hematuria Known history of right 9 mm nephrolithiasis PLAN: Nephrology on consult. Appreciate recommendations and input Obtain urinalysis Obtain renal ultrasound Lidoderm patches to right chest wall Hold narcotics if lethargy is present GI on consult. Await further recommendations and input Continue lactulose [address] Marie agreeable. Repeat ammonia level in AM Home meds as appropriate Monitor labs GI prophylaxis: Pepcid 20 mg by mouth twice a day DVT prophylaxis:REGINA hose to bilateral lower extremities Monitor vital signs and address as appropriate Discharge planning: Patient to return home when stable Further recommendations pending patient's course Nurse practitioner note has been reviewed by physician. Signing provider agrees with the documented findings, assessment, and plan of care.
[2018-02-19 17:43] LABS: Glucose,Whole Blood 118 mg/dL (75-99)
--- NOTE | 2018-02-19 19:10 | P.CONS ---
History of Present Illness - Reason for Consult Consult date: 02/19/18 Hyperammonemia Requesting physician: Mina Marie - Chief Complaint Chest pain coughing - History of Present Illness 62-year-old female patient Dr. Levy with a past medical history seizure disorder, diabetes, hypertension, hyperlipidemia, COPD O2 dependent admitted with chest pain and coughing. Consultation requested for elevated serum ammonia level. Patient was seen in consultation regarding hyperammonemia early January at that time she provided no history of known liver disorders. No history of alcoholism. No changes in her medications. She had a history of chronic elevation of alkaline phosphatase 6 months duration. Full serologic workup for chronic liver disease was requested with unremarkable findings. Ultrasound abdomen liver slightly coarsened echotexture. 1.5 semi-echogenic area along the gallbladder fossa in the left lobe favored to represent a hemangioma. Serum ammonia level ranged between 36-142. She was provided lactulose with good response. Etiology of her hyperammonemia was felt to be metabolically related until proven otherwise. Patient states she has not experienced complete confusion but notices herself to be "off". She reports mostly chest pain and coughing at home. Serum ammonia level was elevated 156 provider lactulose presently 44. She is presently alert to herself and place but not time. Patient states she takes Dilantin at home as well as one tablet narco 3 times a day but does not know the strength of the [place]. Presently white count 4.9. He will 9.2. MCV 102. BUN 63. Creatinine 2.9. Sodium 145. Denies abdominal pain fever or chills. Review of Systems Constitutional: Denies fever, chills, sweats, weight gain, or loss. Admitted with increased confusion. HEENT: Negative for migraines, blurred vision or loss, earaches, drainage, tinnitus, oral mucosal lesions, dysphagia, or odynophagia. CARDIAC: Negative for chest pain, arrhythmias, or palpitation. RESPIRATORY: Negative for shortness of breath, hemoptysis, cough, or sputum production. GI: See HPI for pertinent findings. : Negative for hematuria, urgency, frequency, polyuria, or dysuria. GYNc: Negative vaginal discharge. MUSCULOSKELETAL: Negative for muscle aches, swelling, arthritis, and arthralgias. NEUROLOGIC: Negative for stroke or TIA. ENDOCRINE: Negative for thyroid problems. SKIN: Negative for rash or itching. PSYCHIATRIC: History of bipolar depression, anxiety. Past Medical History Past Medical History: COPD, Diabetes Mellitus, Hyperlipidemia, Hypertension, Seizure Disorder History of Any Multi-Drug Resistant Organisms: None Reported Past Surgical History: Hysterectomy Past Anesthesia/Blood Transfusion Reactions: No Reported Reaction Past Psychological History: Anxiety, Bipolar, Depression Additional Psychological History / Comment(s): mother recently Smoking Status: Former smoker Past Alcohol Use History: None Reported Past Drug Use History: Marijuana, Prescription Drug Abuse - Past Family History Mother Family Medical History: Diabetes Mellitus, Hypertension Father Family Medical History: Hypertension Medications and Allergies Home Medications Medication Instructions Recorded Confirmed Type Phenytoin Sodium Extended 100 mg PO TID 11/29/15 02/17/18 History [Dilantin] Sertraline [Zoloft] 200 mg PO DAILY 11/29/15 02/17/18 History Albuterol Inhaler [Ventolin Hfa 2 puff INHALATION RT-Q6H PRN 07/22/17 02/17/18 History Inhaler] Folic Acid 1 mg PO DAILY 07/22/17 02/17/18 History QUEtiapine FUMARATE 150 mg PO HS@[id number]/22/17 02/17/18 History Gemfibrozil [Lopid] 1,200 mg PO HS 09/05/17 02/17/18 History Loratadine [Claritin] 10 mg PO DAILY #30 tab 12/26/17 02/17/18 Rx Montelukast [Singulair] 10 mg PO HS #30 tab 12/26/17 02/17/18 Rx Tamsulosin [Flomax] 0.4 mg PO PC-BRKFST #30 cap 01/30/18 02/17/18 Rx busPIRone HCL 15 mg PO BID 02/17/18 02/17/18 History Allergies Allergy/AdvReac Type Severity Reaction Status Date / Time Penicillins Allergy Mild Swelling Verified 02/17/18 22:54 Physical Exam Vitals: Vital Signs Temp Pulse Pulse Resp BP Pulse Ox 02/19/18 07:58 92 02/19/18 07:43 88 02/19/18 05:23 97.1 F L 57 L 20 163/68 97 02/18/18 20:40 98.6 F 92 99 18 137/83 99 02/18/18 20:30 94 02/18/18 16:00 92 18 02/18/18 14:54 98 02/18/18 14:38 96 Intake and Output 02/18/18 02/19/18 02/19/18 22:59 06:59 14:59 Other: Voiding Method Bedside Commode Bedside Commode # Voids 2 1 # Bowel Movements 1 1 General appearance: The patient is alert, oriented, in no acute distress. HET: Head is normocephalic and atraumatic. Pupils are equal and reactive. Oropharynx is clear without lesions. Neck: Supple without lymphadenopathy. Trachea midline. Heart: S1 S2. Regular rate and rhythm. Lungs: No crackles or wheezes are heard. Abdomen: Soft, nontender, nondistended with bowel sounds. No peritoneal signs. No palpable organomegaly or masses. Extremities: Normal skin color and turgor. No cyanosis, rash, ulceration, clubbing, or edema. Radial and pedal pulses are 2/4 bilaterally. Neurological: No focal deficits. Strength and sensation are grossly intact. Results CBC & Chem 7: 02/19/18 07:49 02/19/18 07:49 Labs: Abnormal Lab Results - Last 24 Hours (Table) 02/18/18 02/18/18 02/18/18 Range/Units 12:15 15:40 17:02 RBC (3.80-5.40) m/uL Hgb (11.4-16.0) gm/dL Hct (34.0-46.0) % MCV (80.0-100.0) fL Potassium 6.4 H* (3.5-5.1) mmol/L Chloride 115 H (98-107) mmol/L Carbon Dioxide 15 L (22-30) mmol/L BUN 68 H (7-17) mg/dL Creatinine 3.14 H (0.52-1.04) mg/dL Glucose 116 H (74-99) mg/dL POC Glucose (mg/dL) 209 H 187 H (75-99) mg/dL Calcium (8.4-10.2) mg/dL AST (14-36) U/L ALT (9-52) U/L Alkaline Phosphatase (38-126) U/L Ammonia (<30) umol/L Albumin (3.5-5.0) g/dL 09/25/18 09/26/18 09/26/18 Range/Units 20:40 07:49 07:49 RBC (3.80-5.40) m/uL Hgb (11.4-16.0) gm/dL Hct (34.0-46.0) % MCV (80.0-100.0) fL Potassium (3.5-5.1) mmol/L Chloride 115 H (98-107) mmol/L Carbon Dioxide 17 L (22-30) mmol/L BUN 63 H (7-17) mg/dL Creatinine 2.98 H (0.52-1.04) mg/dL Glucose (74-99) mg/dL POC Glucose (mg/dL) 177 H (75-99) mg/dL Calcium 8.1 L (8.4-10.2) mg/dL AST 13 L (14-36) U/L ALT 6 L (9-52) U/L Alkaline Phosphatase 236 H (38-126) U/L Ammonia 44 H (<30) umol/L Albumin 3.4 L (3.5-5.0) g/dL 02/19/18 02/19/18 Range/Units 07:49 11:30 RBC 2.82 L (3.80-5.40) m/uL Hgb 9.2 L (11.4-16.0) gm/dL Hct 28.8 L (34.0-46.0) % MCV 102.0 H (80.0-100.0) fL Potassium (3.5-5.1) mmol/L Chloride (98-107) mmol/L Carbon Dioxide (22-30) mmol/L BUN (7-17) mg/dL Creatinine (0.52-1.04) mg/dL Glucose (74-99) mg/dL POC Glucose (mg/dL) 107 H (75-99) mg/dL Calcium (8.4-10.2) mg/dL AST (14-36) U/L ALT (9-52) U/L Alkaline Phosphatase (38-126) U/L Ammonia (<30) umol/L Albumin (3.5-5.0) g/dL Assessment and Plan (1) Hyperammonemia Narrative/Plan: 62-year-old female admitted with acute kidney injury with underlying chronic disease end-stage COPD O2 dependent elevated serum ammonia with no clinical evidence to suggest underlying chronic kidney disease. Hyperammonemia felt to be metabolically related cause is unclear at this time. Current Visit: Yes Status: Acute Code(s): E72.20 - DISORDER OF UREA CYCLE METABOLISM, UNSPECIFIED SNOMED Code(s): 6163141 Plan: 1. Repeat ammonia in a.m. Decrease lactulose to 20 grams daily. 2. Patient is scheduled to be evaluated in GI office on February 25. 3. We'll continue to follow with you. Thank you for this kind referral and the opportunity to participate in the care of your patient. This consultation was discussed with Dr. Ni. The impression and plan of care have been directed as dictated.
[2018-02-19 19:52] LABS: Glucose,Whole Blood 124 mg/dL (75-99)
[2018-02-19] MEDS: SODIUM CHLORIDE 0.9% 1,000 ML IV SCH ×3 (20:39→23:51)
[2018-02-19 20:53] LABS: Phenytoin (Dilantin) <3.0 ug/mL
[2018-02-19] MEDS: MONTELUKAST 10 MG TAB PO SCH (21:37)
[2018-02-19] MEDS: QUEtiapine 50 MG TAB PO SCH (21:37)
[2018-02-19 22:10] LABS: Appearance,Urine Clear (Clear); Bilirubin,Urine Negative (Negative); Blood,Urine Negative (Negative); Color,Urine Light Yellow; Glucose,Urine (UA) Negative (Negative); Ketones,Urine Negative (Negative); Leukocyte Esterase,Urine Negative (Negative); Nitrite,Urine Negative (Negative); Protein,Urine 2+ (Negative); RBC,Urine <1 /hpf (0-5); Specific Gravity,Urine 1.008 (1.001-1.035); Squamous Epithelial Cell,Urine 1 /hpf (0-4); Urobilinogen,Urine <2.0 mg/dL (<2.0)
[2018-02-20] MEDS: HYDROcodone/APAP 5-325MG 1 EACH TAB PO PRN (05:56)
[2018-02-20 06:58] LABS: Glucose,Whole Blood 120 mg/dL (75-99)
[2018-02-20] MEDS: INSULIN ASPART 100 UNIT/ML 1 ML 10 ML VIAL SQ SCH ×4 (07:27→22:25)
[2018-02-20] MEDS: IPRATROPIUM-ALBUTEROL 3 ML NEB INHALATION SCH ×4 (07:38→19:48)
[2018-02-20 08:37] LABS: Albumin 3.5 g/dL (3.5-5.0); Calcium 8.6 mg/dL (8.4-10.2); Potassium 4.3 mmol/L (3.5-5.1); Total Bilirubin 0.2 mg/dL (0.2-1.3); Total Protein 6.4 g/dL (6.3-8.2)
[2018-02-20] MEDS: LORATADINE 10 MG TAB PO SCH (08:44)
[2018-02-20] MEDS: TAMSULOSIN 0.4 MG CAP.ER.24H PO SCH (08:44)
[2018-02-20] MEDS: FAMOTIDINE 20 MG TAB PO SCH (08:44)
[2018-02-20] MEDS: LIDOCAINE 5% PATCH TOPICAL SCH (08:44)
[2018-02-20] MEDS: LACTULOSE 20 GM/30 ML CUP PO SCH (08:44)
[2018-02-20] MEDS: PHENYTOIN SODIUM EXTENDED 100 MG CAP PO SCH ×3 (08:45→21:08)
[2018-02-20] MEDS: SODIUM BICARBONATE TAB 650 MG TAB PO SCH ×2 (08:45→21:08)
[2018-02-20] MEDS: SERTRALINE 100 MG TAB PO SCH (08:45)
[2018-02-20 08:50] LABS: Basophils % (A) 0 %; Eosinophils # (A) 0.3 k/uL (0-0.7); Eosinophils % (A) 5 %; HCT 28.9 % (34.0-46.0); HGB 9.3 gm/dL (11.4-16.0); Hypochromasia Moderate; Lymphocytes # (A) 0.9 k/uL (1.0-4.8); Lymphocytes % (A) 16 %; MCHC 32.1 g/dL (31.0-37.0); MCV 99.6 fL (80.0-100.0); Macrocytosis Slight; Mean Platelet Volume 8.1; Monocytes # (A) 0.4 k/uL (0-1.0); Monocytes % (A) 7 %; Neutrophils # (A) 3.9 k/uL (1.3-7.7); Neutrophils % (A) 70 %; Platelet Count 210 k/uL (150-450); RDW 15.1 % (11.5-15.5); WBC 5.5 k/uL (3.8-10.6)
[2018-02-20] MEDS: ACETAMINOPHEN TAB 325 MG TAB PO PRN (09:20)
--- NOTE | 2018-02-20 09:45 | CONS ---
CONSULTATION DATE OF CONSULTATION: 02/19/2018 CHIEF COMPLAINT: Altered mental status. HISTORY OF PRESENT ILLNESS: Mrs. Lei is a pleasant 62-year-old female, who is being evaluated today on 02/19/2018 by the Neurology Service per the request of Dr. Marie for altered mental status. The patient was brought into [facility] Emergency Room with the chief complaint of rib pain. She states that she developed pneumonia a couple of months ago and has been having excruciating rib pain ever since. She also has history of COPD. Pulmonology has been consulted. During her admission, she was found to be somewhat lethargic. Her comprehensive metabolic profile showed significant renal insufficiency with a BUN of 63 and creatinine of 2.98. Her CBC showed anemia with a hemoglobin of 9.2 and hematocrit of 28% with an MCV elevation at 102. Her stool occult was positive. Her serum ammonia level was elevated at 44 but her liver enzymes were normal. She was started on IV hydration. At the time of my evaluation, the patient's mental status has improved as she is more awake and oriented. She is still complaining of rib pain. She was on morphine initially but this has been discontinued and she is receiving Kalama as needed. She denies any lateralizing numbness or weakness. The patient does report a history of seizures that is well controlled on Dilantin 100 mg 3 times daily. Her last seizure was approximately 5 years ago. PAST MEDICAL HISTORY: Chronic obstructive pulmonary disease, hypertension, diabetes, dyslipidemia, seizure disorder, bipolar disorder, depression, anxiety disorder, history of hysterectomy. SOCIAL HISTORY: The patient is a former smoker. She does smoke marijuana. She denies any alcohol or IV drug use. FAMILY HISTORY: Positive for hypertension and diabetes. HOME MEDICATIONS: Reviewed in the chart. ALLERGIES: PENICILLIN. REVIEW OF SYSTEMS: As mentioned above and otherwise negative. PHYSICAL EXAM: Vital signs show a temperature of 97.1, pulse 92, respiration 18, blood pressure 163/68. GENERAL APPEARANCE: The patient is an obese, female who appears to be in mild distress due to pain. HEENT: Normocephalic, atraumatic, no facial asymmetry is seen. NECK: Supple with no masses felt. CARDIOVASCULAR: Regular rate and rhythm. ABDOMEN: Nontender, nondistended. Extremities showed trace edema with no clubbing seen. NEUROLOGICAL EXAM: The patient is awake and oriented x3. Speech and language are normal. Strength is 5-/5 in all 4 extremities. Sensory exam showed diminished light touch sensation in bilateral distal lower extremities. No tremors or seizure-like activity is seen. No facial asymmetry is noticed on cranial nerve testing. IMPRESSION: 1. Altered mental status. 2. Metabolic and toxic acute encephalopathy. 3. Anemia. 4. History of seizure disorder. 5. Rib pain. RECOMMENDATION: The patient's altered mental status appears to have significantly improved as the patient is quite awake and oriented x3. She likely had acute multifactorial encephalopathy with metabolic encephalopathy due to her renal function and elevated ammonia level and also toxic encephalopathy likely secondary to morphine. She is currently receiving Kalama as needed and tolerating this well. An EEG has been ordered. I will order a vitamin B12 level and TSH. As for her seizure disorder, this is well controlled on Dilantin. I will order a serum Dilantin level. Continue neuro checks. I will continue to follow with you. Further recommendations to follow. Thank you for allowing me to participate in the care of your patient. If you have any questions, please feel free to contact me. MARIAM / IJN: [id number] /
--- NOTE | 2018-02-20 10:53 | P.PN ---
Subjective Patient is seen in follow for acute kidney injury on chronic kidney disease. Patient has chronic kidney disease stage IV with baseline creatinine in the range of 2-2.4 secondary to diabetic kidney disease. Creatinine peaked at 3.14 on February 18 and is down to 2.51 today. Oral intake is fair. Patient had one episode of hematuria yesterday. States she has history of kidney stones. No evidence of nephrolithiasis noted on renal ultrasound. No vomiting or diarrhea. Denies abdominal pain. Vital signs are stable. General: The patient appeared well nourished and normally developed. HEENT: Head exam is unremarkable. Neck is without jugular venous distension. LUNGS: Lungs are clear to auscultation and percussion. Breath sounds decreased. HEART: Rate and Rhythm are regular. First and second heart sounds normal. No murmurs, rubs or gallops. ABDOMEN: Abdominal exam reveals normal bowel sounds. Non-tender and non- distended. No evidence of peritonitis. EXTREMITITES: No clubbing, cyanosis, or edema. Objective - Vital Signs Vital signs: Vital Signs Temp 97.8 F 02/20/18 05:00 Pulse 84 02/20/18 07:50 Resp 16 02/20/18 05:00 BP 165/80 02/20/18 05:00 Pulse Ox 93 L 02/20/18 05:00 Intake & Output 02/19/18 02/20/18 02/20/18 18:59 06:59 18:59 Intake Total 2130 Balance 2130 Intake: Intake, IV Titration 450 Amount Sodium Chloride 0.9% 1, 450 000 ml @ 50 mls/hr IV . Q20H [facility] Rx#:[id number] Oral 1680 Other: Voiding Method Bedside Commode Bedside Commode # Voids 2 1 # Bowel Movements 2 - Labs CBC & Chem 7: 02/20/18 07:46 02/20/18 07:46 Labs: Abnormal Lab Results - Last 24 Hours (Table) 02/19/18 02/19/18 02/19/18 Range/Units 07:49 07:49 11:30 RBC 2.82 L (3.80-5.40) m/uL Hgb 9.2 L (11.4-16.0) gm/dL Hct 28.8 L (34.0-46.0) % MCV 102.0 H (80.0-100.0) fL Lymphocytes # (1.0-4.8) k/uL Chloride (98-107) mmol/L Carbon Dioxide (22-30) mmol/L BUN (7-17) mg/dL Creatinine (0.52-1.04) mg/dL POC Glucose (mg/dL) 107 H (75-99) mg/dL Alkaline Phosphatase (38-126) U/L Ammonia 44 H (<30) umol/L Vitamin B12 (200.0-944.0) pg/mL Urine Protein (Negative) Stool Occult Blood (Negative) 02/19/18 02/19/18 02/19/18 Range/Units 13:57 17:41 19:49 RBC (3.80-5.40) m/uL Hgb (11.4-16.0) gm/dL Hct (34.0-46.0) % MCV (80.0-100.0) fL Lymphocytes # (1.0-4.8) k/uL Chloride (98-107) mmol/L Carbon Dioxide (22-30) mmol/L BUN (7-17) mg/dL Creatinine (0.52-1.04) mg/dL POC Glucose (mg/dL) 118 H 124 H (75-99) mg/dL Alkaline Phosphatase (38-126) U/L Ammonia (<30) umol/L Vitamin B12 (200.0-944.0) pg/mL Urine Protein (Negative) Stool Occult Blood Positive H (Negative) 02/19/18 02/19/18 02/20/18 Range/Units 20:10 21:10 06:56 RBC (3.80-5.40) m/uL Hgb (11.4-16.0) gm/dL Hct (34.0-46.0) % MCV (80.0-100.0) fL Lymphocytes # (1.0-4.8) k/uL Chloride (98-107) mmol/L Carbon Dioxide (22-30) mmol/L BUN (7-17) mg/dL Creatinine (0.52-1.04) mg/dL POC Glucose (mg/dL) 120 H (75-99) mg/dL Alkaline Phosphatase (38-126) U/L Ammonia (<30) umol/L Vitamin B12 196.0 L (200.0-944.0) pg/mL Urine Protein 2+ H (Negative) Stool Occult Blood (Negative) 02/20/18 02/20/18 Range/Units 07:46 07:46 RBC 2.90 L (3.80-5.40) m/uL Hgb 9.3 L (11.4-16.0) gm/dL Hct 28.9 L (34.0-46.0) % MCV (80.0-100.0) fL Lymphocytes # 0.9 L (1.0-4.8) k/uL Chloride 115 H (98-107) mmol/L Carbon Dioxide 18 L (22-30) mmol/L BUN 52 H (7-17) mg/dL Creatinine 2.51 H (0.52-1.04) mg/dL POC Glucose (mg/dL) (75-99) mg/dL Alkaline Phosphatase 247 H (38-126) U/L Ammonia (<30) umol/L Vitamin B12 (200.0-944.0) pg/mL Urine Protein (Negative) Stool Occult Blood (Negative) Assessment and Plan Plan: Assessment: 1. Nonoliguric acute kidney injury mostly prerenal from poor oral intake. She also received a dose of Toradol in the ER. Creatinine peaked at 3.14 this admission - 2.51 today. 2. Chronic kidney disease stage IV secondary to diabetic kidney disease with baseline creatinine in the range of 2-2.4. 3. Metabolic acidosis secondary to acute kidney injury. Better. 4. Hyperkalemia secondary to acute kidney injury and metabolic acidosis. Improved with medical management. 5. Diabetes mellitus. 6. End-stage lung disease secondary to COPD currently maintained on prednisone as well as bronchodilator therapy. 7. Hematuria. She only had one episode. No evidence of kidney stones on renal ultrasound. No RBCs in the urine. 8. Anemia of chronic kidney disease. Rule out iron deficiency. Plan: Maintain normal saline at 50 mL an hour. Maintain oral sodium bicarbonate 1300 mg twice daily. Avoid nephrotoxic agents including NSAIDs. Encouraged oral intake. Check iron studies. Add Aranesp.
--- NOTE | 2018-02-20 10:55 | P.PN ---
Subjective Progress Note Date: 02/20/18 62-year-old female who presented to the emergency room with right lateral chest pain after coughing at home. The patient does have a history of right-sided rib fractures and was hospitalized in December 2017 for intractable pain, right lower lobe pneumonia, and exacerbation of COPD. The patient has also been hospitalized twice since that time in the middle of December 2017 in the evening of January 2018. A chest x-ray was completed in the emergency room showing no elevation right diaphragm compared to old exam. Poor inspiration. Aspiration overall is improved compared to last exam. Heart failure. Aeration of the left lung is improved. There is some atelectasis at the right lung base. A x-ray of the ribs was completed revealing multiple posterior rib fractures that are probably present on old chest x-ray. No evidence of an ache acute rib fracture. The patient was admitted to the hospital under observation to the care of Dr. Marie. The patient has had elevated ammonia levels during previous hospitalizations. She has been evaluated by GI during previous hospitalizations. She has responded well to lactulose during those admissions and encephalopathy improved , however GI felt that the patient did not require lactulose and it was discontinued per GI. The patient did have an ultrasound performed 01/29/2018 revealing 1.5 cm echogenic area along the gallbladder fossa and the left liver lobe. Findings favored to represent either a hemangioma or focal fat. Six- month follow-up ultrasound was recommended. The patient was to follow-up with GI on an outpatient basis. The patient was seen and examined at the bedside this morning in rounds with Dr. Marie. She appears confused. The patient is lethargic with occasional periods where she is lucid. The patient's speech is very slow. She denies chest pain or pressure. She does report pain to the right lateral chest wall. She did receive morphine this morning for pain. 02/19/2018 Patient seen and examined at the bedside this morning. Patient is awake and alert. Patient oriented x 3 during examination but mental status is not back to patients baseline. Patient had an episode of gross hematuria this morning, which is new. She does report history of right kidney stone. She also complains of alot of right flank pain. DIRECTOR OF DONOR RELATIONS and RN performed visual examination of patients genital region as patient has extremely long fingernails and there was concern from nursing that she may have scratched herself while using the bathroom which may be attributing to the blood. No obvious signs of abrasions noted. Patient did have dried blood near rectum. She denies any blood in her stool. Potassium this morning is 4.4. Ammonia level is down to 44. GI consult has been requested. 02/20/2018 Patient seen and examined on rounds with Dr. Marie. Patient is sitting up in a chair and complaining of severe right flank pain. Patient did have an episode of gross hematuria yesterday but no sample of that void was sent to the laboratory. the patient denies any further episodes of hematuria. The patient underwent an ultrasound yesterday which was negative for hydronephrosis. Patient's previous 9 mm right nephrolithiasis was not visualized on ultrasound. hemoglobin this morning 9.3. BUN 52. Creatinine 2.51. alkaline phosphatase remains elevated at 247. Ammonia level is now within normal limits at 26. Objective - Vital Signs Vital signs: Vital Signs Temp 97.8 F 02/20/18 05:00 Pulse 84 02/20/18 07:50 Resp 16 02/20/18 05:00 BP 165/80 02/20/18 05:00 Pulse Ox 93 L 02/20/18 05:00 Intake & Output 02/19/18 02/20/18 02/20/18 18:59 06:59 18:59 Intake Total 2130 Balance 2130 Intake: Intake, IV Titration 450 Amount Sodium Chloride 0.9% 1, 450 000 ml @ 50 mls/hr IV . Q20H [facility] Rx#:[id number] Oral 1680 Other: Voiding Method Bedside Commode Bedside Commode # Voids 2 1 # Bowel Movements 2 - Exam GENERAL: This is a 62-year-old female who is in no acute distress at the time of examination. HEENT: Head is atraumatic, normocephalic. Pupils are equal, round, and reactive to light. Sclerae anicteric. Conjunctivae are clear. Mucus membranes of the mouth are moist. Neck is supple. RESPIRATORY: Clear to ausculation, diminished. No wheezes, rales, or rhonchi. No use of accessory muscles. Patient maintaining oxygen saturation greater than 92%. Pain and tenderness noted upon palpation of right lateral chest wall CARDIOVASCULAR: Regular rate and rhythm. S1 and S2 noted. No systolic or diastolic murmur auscultated. No JVD noted. No S3 or S4 noted. GASTROINTESTINAL: No distention noted. Abdomen soft and round. Normal active bowel sounds auscultated x 4 quadrants. No pain or tenderness noted upon palpation of abdomen. Patient does have pain to right flank region upon palpation. INTEGUMENTARY: No cyanosis. No jaundice. No rashes noted. No cellulitis noted. EXTREMITIES: 2+ peripheral pulses. No evidence of peripheral edema. No calf tenderness noted. NEUROLOGIC: Cranial nerves II-XII intact. PSYCHIATRIC: Awake and alert. Oriented 3 currently however not back to her baseline. - Labs CBC & Chem 7: 02/20/18 07:46 02/20/18 07:46 Labs: Abnormal Lab Results - Last 24 Hours (Table) 02/19/18 02/19/18 02/19/18 Range/Units 07:49 07:49 11:30 RBC 2.82 L (3.80-5.40) m/uL Hgb 9.2 L (11.4-16.0) gm/dL Hct 28.8 L (34.0-46.0) % MCV 102.0 H (80.0-100.0) fL Lymphocytes # (1.0-4.8) k/uL Chloride (98-107) mmol/L Carbon Dioxide (22-30) mmol/L BUN (7-17) mg/dL Creatinine (0.52-1.04) mg/dL POC Glucose (mg/dL) 107 H (75-99) mg/dL Alkaline Phosphatase (38-126) U/L Ammonia 44 H (<30) umol/L Vitamin B12 (200.0-944.0) pg/mL Urine Protein (Negative) Stool Occult Blood (Negative) 02/19/18 02/19/18 02/19/18 Range/Units 13:57 17:41 19:49 RBC (3.80-5.40) m/uL Hgb (11.4-16.0) gm/dL Hct (34.0-46.0) % MCV (80.0-100.0) fL Lymphocytes # (1.0-4.8) k/uL Chloride (98-107) mmol/L Carbon Dioxide (22-30) mmol/L BUN (7-17) mg/dL Creatinine (0.52-1.04) mg/dL POC Glucose (mg/dL) 118 H 124 H (75-99) mg/dL Alkaline Phosphatase (38-126) U/L Ammonia (<30) umol/L Vitamin B12 (200.0-944.0) pg/mL Urine Protein (Negative) Stool Occult Blood Positive H (Negative) 02/19/18 02/19/18 02/20/18 Range/Units 20:10 21:10 06:56 RBC (3.80-5.40) m/uL Hgb (11.4-16.0) gm/dL Hct (34.0-46.0) % MCV (80.0-100.0) fL Lymphocytes # (1.0-4.8) k/uL Chloride (98-107) mmol/L Carbon Dioxide (22-30) mmol/L BUN (7-17) mg/dL Creatinine (0.52-1.04) mg/dL POC Glucose (mg/dL) 120 H (75-99) mg/dL Alkaline Phosphatase (38-126) U/L Ammonia (<30) umol/L Vitamin B12 196.0 L (200.0-944.0) pg/mL Urine Protein 2+ H (Negative) Stool Occult Blood (Negative) 02/20/18 02/20/18 Range/Units 07:46 07:46 RBC 2.90 L (3.80-5.40) m/uL Hgb 9.3 L (11.4-16.0) gm/dL Hct 28.9 L (34.0-46.0) % MCV (80.0-100.0) fL Lymphocytes # 0.9 L (1.0-4.8) k/uL Chloride 115 H (98-107) mmol/L Carbon Dioxide 18 L (22-30) mmol/L BUN 52 H (7-17) mg/dL Creatinine 2.51 H (0.52-1.04) mg/dL POC Glucose (mg/dL) (75-99) mg/dL Alkaline Phosphatase 247 H (38-126) U/L Ammonia (<30) umol/L Vitamin B12 (200.0-944.0) pg/mL Urine Protein (Negative) Stool Occult Blood (Negative) Assessment and Plan Plan: ASSESSMENT: Hyperammonemia, etiology unclear, patient does not have portal hypertension and has preserved synthetic liver function, however ammonia levels continue to be elevated and patient previously has had improvement encephalopathy with administration of lactulose Encephalopathy, suspect metabolic secondary to above along with component of IV narcotics Fracture of posterior sixth and ninth rib, December 2017 with increased pain, repeat chest x-ray shows no evidence of new fractures Acute kidney injury, creatinine 2.89 on admission, baseline creatinine 2-2.5 Hyperkalemia, secondary to above, resolved Metabolic acidosis, secondary to acute kidney injury Chronic kidney disease, stage IV, likely secondary to diabetic kidney disease with baseline creatinine creatinine near 2-2.5 COPD, no evidence of acute exacerbation Chronic hypoxic respiratory failure requiring supplemental oxygen Diabetes mellitus, type II Hypertension Hyperlipidemia History of seizure disorder History of anxiety, bipolar disorder, and depression History of nicotine dependence, in remission per patient Gross hematuria Known history of right 9 mm nephrolithiasis PLAN: Nephrology on consult. Appreciate recommendations and input CT scan abd/pelvis without contrast Consult urology for evaluation Will increase [place] back to 10mg which is patients home dose every 8 hours Neurology on consult. Appreciate recommendations and input. Patient scheduled to EEG. await results. Home meds as appropriate Monitor labs GI prophylaxis: Pepcid 20 mg by mouth twice a day DVT prophylaxis:REGINA hose to bilateral lower extremities Monitor vital signs and address as appropriate Discharge planning: Patient to return home when stable Further recommendations pending patient's course Nurse practitioner note has been reviewed by physician. Signing provider agrees with the documented findings, assessment, and plan of care.
[2018-02-20] MEDS ORDERED: DARBEPOETIN ALFA 40 MCG/0.4 ML SYRINGE SQ SCH (11:00)
[2018-02-20] MEDS: HYDROcodone/APAP 10-325MG 1 EACH TAB PO PRN ×2 (11:36→19:48)
[2018-02-20 11:57] LABS: Glucose,Whole Blood 93 mg/dL (75-99)
[2018-02-20] MEDS: FOLIC ACID 1 MG TAB PO SCH (12:24)
--- NOTE | 2018-02-20 14:03 | P.GSCN ---
History of Present Illness Consult date: 02/20/18 Reason for Consult: Gross Hematuria Requesting physician: Mina Marie History of present illness: The patient is a 62-year-old white female with a history of urolithiasis. She underwent right ESWL twice in 2012. Her calculus fragmented well, but she had retained fragments. She has been asymptomatic since that time. She is currently hospitalized after sustaining rib fractures. She states that she had a single episode of gross painless hematuria 1-2 days ago. Urinalysis yesterday was negative. Review of Systems - Cardiovascular Reports chest pain - Gastrointestinal Denies nausea, Denies vomiting - Genitourinary Genitourinary: Reports hematuria, Denies dysuria, Denies flank pain Past Medical History Past Medical History: COPD, Diabetes Mellitus, Hyperlipidemia, Hypertension, Seizure Disorder History of Any Multi-Drug Resistant Organisms: None Reported Past Surgical History: Hysterectomy Additional Past Surgical History / Comment(s): ESWL Past Anesthesia/Blood Transfusion Reactions: No Reported Reaction Past Psychological History: Anxiety, Bipolar, Depression Additional Psychological History / Comment(s): mother recently Smoking Status: Former smoker Past Alcohol Use History: None Reported Past Drug Use History: Marijuana, Prescription Drug Abuse - Past Family History Mother Family Medical History: Diabetes Mellitus, Hypertension Father Family Medical History: Hypertension Medications and Allergies Home Medications Medication Instructions Recorded Confirmed Type Phenytoin Sodium Extended 100 mg PO TID 11/29/15 02/17/18 History [Dilantin] Sertraline [Zoloft] 200 mg PO DAILY 11/29/15 02/17/18 History Albuterol Inhaler [Ventolin Hfa 2 puff INHALATION RT-Q6H PRN 07/22/17 02/17/18 History Inhaler] Folic Acid 1 mg PO DAILY 07/22/17 02/17/18 History QUEtiapine FUMARATE 150 mg PO HS@[id number]/22/17 02/17/18 History Gemfibrozil [Lopid] 1,200 mg PO HS 09/05/17 02/17/18 History Loratadine [Claritin] 10 mg PO DAILY #30 tab 12/26/17 02/17/18 Rx Montelukast [Singulair] 10 mg PO HS #30 tab 12/26/17 02/17/18 Rx Tamsulosin [Flomax] 0.4 mg PO PC-BRKFST #30 cap 01/30/18 02/17/18 Rx busPIRone HCL 15 mg PO BID 02/17/18 02/17/18 History Allergies Allergy/AdvReac Type Severity Reaction Status Date / Time Penicillins Allergy Mild Swelling Verified 02/17/18 22:54 Surgical - Exam Vital Signs Temp Pulse Resp BP Pulse Ox 98.3 F 89 24 134/83 100 02/17/18 22:24 02/17/18 22:24 02/17/18 22:24 02/17/18 22:24 02/17/18 22:24 - General well developed, well nourished, no distress - Respiratory normal respiratory effort - Abdomen Abdomen: soft, non tender, no guarding, no rigid, no rebound - Psychiatric oriented to time, oriented to person, oriented to place, speech is normal, memory intact Results - Labs 02/20/18 07:46 02/20/18 07:46 Abnormal Lab Results - Last 24 Hours (Table) 02/19/18 02/19/18 02/19/18 Range/Units 13:57 17:41 19:49 RBC (3.80-5.40) m/uL Hgb (11.4-16.0) gm/dL Hct (34.0-46.0) % Lymphocytes # (1.0-4.8) k/uL Chloride (98-107) mmol/L Carbon Dioxide (22-30) mmol/L BUN (7-17) mg/dL Creatinine (0.52-1.04) mg/dL POC Glucose (mg/dL) 118 H 124 H (75-99) mg/dL Alkaline Phosphatase (38-126) U/L Vitamin B12 (200.0-944.0) pg/mL Urine Protein (Negative) Stool Occult Blood Positive H (Negative) 02/19/18 02/19/18 02/20/18 Range/Units 20:10 21:10 06:56 RBC (3.80-5.40) m/uL Hgb (11.4-16.0) gm/dL Hct (34.0-46.0) % Lymphocytes # (1.0-4.8) k/uL Chloride (98-107) mmol/L Carbon Dioxide (22-30) mmol/L BUN (7-17) mg/dL Creatinine (0.52-1.04) mg/dL POC Glucose (mg/dL) 120 H (75-99) mg/dL Alkaline Phosphatase (38-126) U/L Vitamin B12 196.0 L (200.0-944.0) pg/mL Urine Protein 2+ H (Negative) Stool Occult Blood (Negative) 02/20/18 02/20/18 Range/Units 07:46 07:46 RBC 2.90 L (3.80-5.40) m/uL Hgb 9.3 L (11.4-16.0) gm/dL Hct 28.9 L (34.0-46.0) % Lymphocytes # 0.9 L (1.0-4.8) k/uL Chloride 115 H (98-107) mmol/L Carbon Dioxide 18 L (22-30) mmol/L BUN 52 H (7-17) mg/dL Creatinine 2.51 H (0.52-1.04) mg/dL POC Glucose (mg/dL) (75-99) mg/dL Alkaline Phosphatase 247 H (38-126) U/L Vitamin B12 (200.0-944.0) pg/mL Urine Protein (Negative) Stool Occult Blood (Negative) Diabetes panel 02/20/18 Range/Units 07:46 Sodium 144 (137-145) mmol/L Potassium 4.3 (3.5-5.1) mmol/L Chloride 115 H (98-107) mmol/L Carbon Dioxide 18 L (22-30) mmol/L BUN 52 H (7-17) mg/dL Creatinine 2.51 H (0.52-1.04) mg/dL Glucose 97 (74-99) mg/dL Calcium 8.6 (8.4-10.2) mg/dL AST 14 (14-36) U/L ALT 11 (9-52) U/L Alkaline Phosphatase 247 H (38-126) U/L Total Protein 6.4 (6.3-8.2) g/dL Albumin 3.5 (3.5-5.0) g/dL Thyroid panel 02/19/18 Range/Units 20:10 TSH 1.570 (0.465-4.680) mIU/L Calcium panel 02/20/18 Range/Units 07:46 Calcium 8.6 (8.4-10.2) mg/dL Albumin 3.5 (3.5-5.0) g/dL Pituitary panel 02/19/18 02/20/18 Range/Units 20:10 07:46 Sodium 144 (137-145) mmol/L Potassium 4.3 (3.5-5.1) mmol/L Chloride 115 H (98-107) mmol/L Carbon Dioxide 18 L (22-30) mmol/L BUN 52 H (7-17) mg/dL Creatinine 2.51 H (0.52-1.04) mg/dL Glucose 97 (74-99) mg/dL Calcium 8.6 (8.4-10.2) mg/dL TSH 1.570 (0.465-4.680) mIU/L Adrenal panel 02/20/18 Range/Units 07:46 Sodium 144 (137-145) mmol/L Potassium 4.3 (3.5-5.1) mmol/L Chloride 115 H (98-107) mmol/L Carbon Dioxide 18 L (22-30) mmol/L BUN 52 H (7-17) mg/dL Creatinine 2.51 H (0.52-1.04) mg/dL Glucose 97 (74-99) mg/dL Calcium 8.6 (8.4-10.2) mg/dL Total Bilirubin 0.2 (0.2-1.3) mg/dL AST 14 (14-36) U/L ALT 11 (9-52) U/L Alkaline Phosphatase 247 H (38-126) U/L Total Protein 6.4 (6.3-8.2) g/dL Albumin 3.5 (3.5-5.0) g/dL - Imaging US - kidney/bladder: report reviewed Assessment and Plan (1) Gross hematuria Current Visit: Yes Status: Acute Code(s): R31.0 - GROSS HEMATURIA SNOMED Code(s): 330532615 Plan: In summary, the patient is a 62-year-old white female with a history of urolithiasis. She recently had an episode of gross painless hematuria. Urinalysis shows no evidence of infection. A renal ultrasound showed bilateral renal cysts, as well as a 7 x 10 mm right lower pole echogenic focus which may represent a renal calculus. A KUB x-ray will be obtained for further evaluation. We discussed the fact that as a former smoker, her risk of genitourinary malignancy is increased and she may require cystoscopy to rule out intravesical pathology. Time with Patient: Greater than 30
[2018-02-20 16:58] LABS: Iron Saturation 17.19 (12.00-45.00)
[2018-02-20 17:25] LABS: Glucose,Whole Blood 102 mg/dL (75-99)
--- NOTE | 2018-02-20 17:49 | CT ---
EXAMINATION TYPE: CT abdomen pelvis wo con DATE OF EXAM: 02/20/2018 COMPARISON: 11/22/2014 INDICATION: Hematuria DLP: 1011 mGycm, Automated exposure control for dose reduction was used. CONTRAST: None Study performed without Oral Contrast TECHNIQUE: Axial images were obtained from above the diaphragm to the pubic rami in the axial plane a t 5 mm thick sections. Reconstructed images are reviewed on the computer in the coronal plane. FINDINGS: Limited CT sections are obtained the lung bases. There is streak opacities within the lung bases, co nsider streak atelectasis. There is a minimal right pleural effusion. CT ABDOMEN: Liver: Normal Spleen: Normal Pancreas: There is a 1.6 cm hypodensity extending from the posterior tail of the pancreas. This appe ars stable from comparison. No new lesions are evident. Adrenal glands: Left adrenal gland is full 1.4 cm. Right adrenal gland appears normal Gallbladder: Normal Kidneys: There is a 1.3 cm hyperdensity along the superior left kidney. This could be a small angiomy olipoma. This is not clearly identified previously. Consider ultrasound kidney for additional evaluat ion.. No hydronephrosis is present. There is a 0.8 x 1.0 cm calcification nonobstructing inferior bill e right kidney. There is some limitation on the right. There is a 1.6 cm in the posterior left kidney measuring 12 Hounsfield units. Aorta: Vascular calcification is within the aorta. Inferior vena cava: Normal. CT PELVIS: Loops of bowel within the abdomen and pelvis are normal. Oral contrast limiting the evaluation. Appendix: Normal as visualized. Urinary bladder: Normal. Genitourinary structures: There is a 1.7 x 2.8 cm hyperdense area within the peritoneal region on the right. Series 3 image 146) This may be near the level of the anus. This could potentially be within the right labia. Physical examination is recommended. This was present previously No free fluid is wi thin the pelvis. Uterus and ovaries are not identified. Osseous structures: No suspicious lytic or sclerotic lesions. Hemangioma is within the lower thoracic IMPRESSIONS: 1. Streak atelectasis and a minimal right pleural effusion lung bases. 2. Stable hypodense lesion within the posterior tail of the pancreas. 3. Nonobstructing inferior pole right renal stone. 4. Hyperdense lesion within the superior left kidney not previously identified. Recommend ultrasound for additional evaluation. 5. Left renal cyst. 6. Hyperdense area near the peritoneal region discussed above under genitourinary structures. Recomme nd physical examination for correlation.
--- NOTE | 2018-02-20 18:09 | EEG ---
ELECTROENCEPHALOGRAM REPORT DATE OF SERVICE: 02/20/2018 REASON FOR TESTING: Altered mental status and history of seizures. CURRENT ANTI-EPILEPTIC MEDICATIONS: Dilantin. DESCRIPTION OF THE PROCEDURE: This EEG was performed using a 21-channel digital electroencephalograph, following international 10-20 system. DESCRIPTION OF THE RECORDING: From the beginning of the tracing, and with the patient's eyes closed, the background rhythm was mostly consisting of 8 Hz alpha frequency in the posterior occipital leads. No obvious asymmetry is seen. Photic stimulation was performed with a minimal driving response seen. No pathological waves were elicited. Hyperventilation was not performed. Occasional movement and muscle artifacts are seen. The patient remains awake throughout the tracing. No epileptiform discharges were noticed. Her EKG lead showed a regular rate and rhythm. INTERPRETATION: This awake EEG can be considered within normal limits. There was no asymmetry seen. No epileptiform discharges were noticed. The absence of epileptiform discharges does not rule out the diagnosis of epilepsy; therefore clinical correlation is recommended. MMJOVANA / PRISCAN: [id number] /
[2018-02-20] MEDS: QUEtiapine 50 MG TAB PO SCH (19:50)
[2018-02-20 19:56] LABS: Glucose,Whole Blood 112 mg/dL (75-99)
[2018-02-20] MEDS: SODIUM CHLORIDE 0.9% 1,000 ML IV SCH (20:03)
[2018-02-20] MEDS: MONTELUKAST 10 MG TAB PO SCH (21:08)
[2018-02-21] MEDS: HYDROcodone/APAP 10-325MG 1 EACH TAB PO PRN ×2 (06:06→15:25)
[2018-02-21 07:01] LABS: Glucose,Whole Blood 100 mg/dL (75-99)
[2018-02-21 07:26] LABS: Albumin 3.4 g/dL (3.5-5.0); Calcium 8.7 mg/dL (8.4-10.2); Magnesium 1.9 mg/dL (1.6-2.3); Potassium 4.4 mmol/L (3.5-5.1); Total Bilirubin 0.2 mg/dL (0.2-1.3); Total Protein 6.2 g/dL (6.3-8.2)
[2018-02-21] MEDS: SERTRALINE 100 MG TAB PO SCH (08:10)
[2018-02-21] MEDS: LORATADINE 10 MG TAB PO SCH (08:10)
[2018-02-21] MEDS: PHENYTOIN SODIUM EXTENDED 100 MG CAP PO SCH ×3 (08:10→21:53)
[2018-02-21] MEDS: SODIUM BICARBONATE TAB 650 MG TAB PO SCH ×2 (08:10→20:13)
[2018-02-21] MEDS: LIDOCAINE 5% PATCH TOPICAL SCH (08:10)
[2018-02-21] MEDS: TAMSULOSIN 0.4 MG CAP.ER.24H PO SCH (08:11)
[2018-02-21] MEDS: LACTULOSE 20 GM/30 ML CUP PO SCH (08:11)
[2018-02-21] MEDS: FAMOTIDINE 20 MG TAB PO SCH (08:11)
[2018-02-21] MEDS: INSULIN ASPART 100 UNIT/ML 1 ML 10 ML VIAL SQ SCH ×4 (08:11→20:56)
[2018-02-21] MEDS: IPRATROPIUM-ALBUTEROL 3 ML NEB INHALATION SCH ×4 (09:02→19:41)
--- NOTE | 2018-02-21 09:22 | P.PN ---
Subjective Patient is seen in follow for acute kidney injury on chronic kidney disease. Patient has chronic kidney disease stage IV with baseline creatinine in the range of 2-2.4 secondary to diabetic kidney disease. Creatinine peaked at 3.14 on February 18 and did come down to 2.51 yesterday - up to 2.88 today. Oral intake is fair. Patient had one episode of hematuria this admission. States she has history of kidney stones. No evidence of nephrolithiasis noted on renal ultrasound but CT did reveal a nonobstructing right renal stone. No vomiting or diarrhea. Denies abdominal pain. No further hematuria. Vital signs are stable. General: The patient appeared well nourished and normally developed. HEENT: Head exam is unremarkable. Neck is without jugular venous distension. LUNGS: Lungs are clear to auscultation and percussion. Breath sounds decreased. HEART: Rate and Rhythm are regular. First and second heart sounds normal. No murmurs, rubs or gallops. ABDOMEN: Abdominal exam reveals normal bowel sounds. Non-tender and non- distended. No evidence of peritonitis. EXTREMITITES: No clubbing, cyanosis, or edema. Objective - Vital Signs Vital signs: Vital Signs Temp 98.1 F 02/21/18 05:00 Pulse 140 H 02/21/18 09:13 Resp 20 02/21/18 05:00 BP 169/98 02/21/18 05:00 Pulse Ox 96 02/21/18 05:00 Intake & Output 02/20/18 02/21/18 02/21/18 18:59 06:59 18:59 Intake Total 1180 Balance 1180 Intake: Oral 1180 Other: Voiding Method Bedside Commode Bedside Commode # Voids 1 3 1 # Bowel Movements 1 - Labs CBC & Chem 7: 02/20/18 07:46 02/21/18 06:47 Labs: Abnormal Lab Results - Last 24 Hours (Table) 02/20/18 02/20/18 02/21/18 Range/Units 17:23 19:55 06:47 Chloride 117 H (98-107) mmol/L Carbon Dioxide 19 L (22-30) mmol/L BUN 54 H (7-17) mg/dL Creatinine 2.88 H (0.52-1.04) mg/dL POC Glucose (mg/dL) 102 H 112 H (75-99) mg/dL Alkaline Phosphatase 224 H (38-126) U/L Total Protein 6.2 L (6.3-8.2) g/dL Albumin 3.4 L (3.5-5.0) g/dL 02/21/18 Range/Units 06:59 Chloride (98-107) mmol/L Carbon Dioxide (22-30) mmol/L BUN (7-17) mg/dL Creatinine (0.52-1.04) mg/dL POC Glucose (mg/dL) 100 H (75-99) mg/dL Alkaline Phosphatase (38-126) U/L Total Protein (6.3-8.2) g/dL Albumin (3.5-5.0) g/dL Assessment and Plan Plan: Assessment: 1. Nonoliguric acute kidney injury mostly prerenal from poor oral intake. She also received a dose of Toradol in the ER on admission. Creatinine peaked at 3.14 this admission - did come down to 2.5 on yesterday and is up to 2.88 today. 2. Chronic kidney disease stage IV secondary to diabetic kidney disease with baseline creatinine in the range of 2-2.4. 3. Metabolic acidosis secondary to acute kidney injury. Better. 4. Hyperkalemia secondary to acute kidney injury and metabolic acidosis. Improved with medical management. 5. Diabetes mellitus. 6. End-stage lung disease secondary to COPD currently maintained on prednisone as well as bronchodilator therapy. 7. Hematuria. She only had one episode. Right-sided nonobstructing kidney stone noted on CAT scan. No RBCs in the urine. Urology following. 8. Anemia of chronic kidney disease. Iron deficiency noted. Plan: Maintain normal saline at 50 mL an hour. Maintain oral sodium bicarbonate 1300 mg twice daily. Avoid nephrotoxic agents including NSAIDs. Encouraged oral intake. Ferrlecit 125 mg IV daily for 3 days. First dose today. Maintain Aranesp. Patient currently not receiving any nephrotoxins and as hemodynamically stable. Continue to monitor renal function.
[2018-02-21] MEDS: SODIUM FERRIC GLUCONAT-SUCROSE 125 MG in SODIUM CHLORIDE 0.9% 100 ML IVPB SCH (10:12)
--- NOTE | 2018-02-21 10:40 | P.PN ---
Subjective Progress Note Date: 02/21/18 Principal diagnosis: Hyperammonemia 62-year-old female admitted with acute kidney injury underlying chronic kidney disease hyperammonemia. Alert oriented no confusion. Episode of painless hematuria evaluated by urology. IV iron. Elevated ammonia levels resolved with lactulose. Ammonia level 11. CT abdomen and pelvis yesterday reported stable 1.6 cm hypodense posterior tail pancreatic lesion unchanged from previous exam. Hyperdense area near the peritoneal region under genitourinary structures. Objective - Vital Signs Vital signs: Vital Signs Temp 98.1 F 02/21/18 05:00 Pulse 140 H 02/21/18 09:13 Resp 20 02/21/18 05:00 BP 169/98 02/21/18 05:00 Pulse Ox 96 02/21/18 05:00 Intake & Output 02/20/18 02/21/18 02/21/18 18:59 06:59 18:59 Intake Total 1180 Balance 1180 Intake: Oral 1180 Other: Voiding Method Bedside Commode Bedside Commode # Voids 1 3 1 # Bowel Movements 1 - Exam General appearance: The patient is alert, oriented, in no acute distress. HET: Head is normocephalic and atraumatic. Pupils are equal and reactive. Oropharynx is clear without lesions. Neck: Supple without lymphadenopathy. Trachea midline. Heart: S1 S2. Regular rate and rhythm. Lungs: No crackles or wheezes are heard. Abdomen: Soft, nontender, nondistended with bowel sounds. No peritoneal signs. No palpable organomegaly or masses. Extremities: Normal skin color and turgor. No cyanosis, rash, ulceration, clubbing, or edema. Radial and pedal pulses are 2/4 bilaterally. Neurological: No focal deficits. Strength and sensation are grossly intact. - Labs CBC & Chem 7: 02/20/18 07:46 02/21/18 06:47 Labs: Abnormal Lab Results - Last 24 Hours (Table) 02/20/18 02/20/18 02/21/18 Range/Units 17:23 19:55 06:47 Chloride 117 H (98-107) mmol/L Carbon Dioxide 19 L (22-30) mmol/L BUN 54 H (7-17) mg/dL Creatinine 2.88 H (0.52-1.04) mg/dL POC Glucose (mg/dL) 102 H 112 H (75-99) mg/dL Alkaline Phosphatase 224 H (38-126) U/L Total Protein 6.2 L (6.3-8.2) g/dL Albumin 3.4 L (3.5-5.0) g/dL 02/21/18 Range/Units 06:59 Chloride (98-107) mmol/L Carbon Dioxide (22-30) mmol/L BUN (7-17) mg/dL Creatinine (0.52-1.04) mg/dL POC Glucose (mg/dL) 100 H (75-99) mg/dL Alkaline Phosphatase (38-126) U/L Total Protein (6.3-8.2) g/dL Albumin (3.5-5.0) g/dL Assessment and Plan (1) Hyperammonemia Narrative/Plan: 62-year-old female admitted with acute kidney injury with underlying chronic disease end-stage COPD O2 dependent elevated serum ammonia with no clinical evidence to suggest underlying chronic kidney disease. Hyperammonemia felt to be metabolically related cause is unclear at this time. Serum ammonia level has normalized. Current Visit: Yes Status: Acute Code(s): E72.20 - DISORDER OF UREA CYCLE METABOLISM, UNSPECIFIED SNOMED Code(s): 0841646 (2) Pancreatic lesion Narrative/Plan: Stable 1.6 cm hypodense pancreatic tail lesion per CT imaging. Current Visit: Yes Status: Acute Code(s): K86.9 - DISEASE OF PANCREAS, UNSPECIFIED SNOMED Code(s): 8593160 (3) Hematuria Narrative/Plan: Single episode of painless hematuria with acute kidney injury and underlying chronic daily disease. CT imaging cannot rule out genitourinary pathology. Current Visit: Yes Status: Acute Code(s): R31.9 - HEMATURIA, UNSPECIFIED SNOMED Code(s): 25865621 Plan: 1. Advise lactulose 20 g daily. Return to office for reevaluation discussion of possible outpatient EUS. Assessment and plan of care discussed with Dr. Ni
[2018-02-21 11:15] LABS: Glucose,Whole Blood 131 mg/dL (75-99)
[2018-02-21] MEDS: FOLIC ACID 1 MG TAB PO SCH (12:52)
[2018-02-21] MEDS: PRIMIDONE 25 MG TAB PO SCH ×3 (12:52→21:53)
--- NOTE | 2018-02-21 14:52 | P.PN ---
Subjective Progress Note Date: 02/21/18 62-year-old female who presented to the emergency room with right lateral chest pain after coughing at home. The patient does have a history of right-sided rib fractures and was hospitalized in December 2017 for intractable pain, right lower lobe pneumonia, and exacerbation of COPD. The patient has also been hospitalized twice since that time in the middle of December 2017 in the evening of January 2018. A chest x-ray was completed in the emergency room showing no elevation right diaphragm compared to old exam. Poor inspiration. Aspiration overall is improved compared to last exam. Heart failure. Aeration of the left lung is improved. There is some atelectasis at the right lung base. A x-ray of the ribs was completed revealing multiple posterior rib fractures that are probably present on old chest x-ray. No evidence of an ache acute rib fracture. The patient was admitted to the hospital under observation to the care of Dr. Marie. The patient has had elevated ammonia levels during previous hospitalizations. She has been evaluated by GI during previous hospitalizations. She has responded well to lactulose during those admissions and encephalopathy improved , however GI felt that the patient did not require lactulose and it was discontinued per GI. The patient did have an ultrasound performed 01/29/2018 revealing 1.5 cm echogenic area along the gallbladder fossa and the left liver lobe. Findings favored to represent either a hemangioma or focal fat. Six- month follow-up ultrasound was recommended. The patient was to follow-up with GI on an outpatient basis. The patient was seen and examined at the bedside this morning in rounds with Dr. Marie. She appears confused. The patient is lethargic with occasional periods where she is lucid. The patient's speech is very slow. She denies chest pain or pressure. She does report pain to the right lateral chest wall. She did receive morphine this morning for pain. 02/19/2018 Patient seen and examined at the bedside this morning. Patient is awake and alert. Patient oriented x 3 during examination but mental status is not back to patients baseline. Patient had an episode of gross hematuria this morning, which is new. She does report history of right kidney stone. She also complains of alot of right flank pain. [employer]ING MANAGER and RN performed visual examination of patients genital region as patient has extremely long fingernails and there was concern from nursing that she may have scratched herself while using the bathroom which may be attributing to the blood. No obvious signs of abrasions noted. Patient did have dried blood near rectum. She denies any blood in her stool. Potassium this morning is 4.4. Ammonia level is down to 44. GI consult has been requested. 02/20/2018 Patient seen and examined on rounds with Dr. Marie. Patient is sitting up in a chair and complaining of severe right flank pain. Patient did have an episode of gross hematuria yesterday but no sample of that void was sent to the laboratory. the patient denies any further episodes of hematuria. The patient underwent an ultrasound yesterday which was negative for hydronephrosis. Patient's previous 9 mm right nephrolithiasis was not visualized on ultrasound. hemoglobin this morning 9.3. BUN 52. Creatinine 2.51. alkaline phosphatase remains elevated at 247. Ammonia level is now within normal limits at 26. 02/21/2018 Patient seen and examined at the bedside. Patient is very emotional and crying. Patient states her mother's birthday just past and she is missing her mother who is . Patient continues to complain of right lateral chest pain due to rib fractures. Patient does not like Lidoderm patches and would like them discontinued. Urology was consulted and evaluated patient yesterday and states that patient may require cystoscopy. CT abdomen and pelvis was reviewed. Objective - Vital Signs Vital signs: Vital Signs Temp 98.6 F 02/21/18 13:03 Pulse 111 H 02/21/18 13:03 Resp 18 02/21/18 13:03 BP 151/80 02/21/18 13:03 Pulse Ox 97 02/21/18 13:03 Intake & Output 02/20/18 02/21/18 02/21/18 18:59 06:59 18:59 Intake Total 1180 Balance 1180 Intake: Oral 1180 Other: Voiding Method Bedside Commode Bedside Commode Bedside Commode # Voids 1 3 1 # Bowel Movements 1 - Exam GENERAL: This is a 62-year-old female who is in no acute distress at the time of examination. HEENT: Head is atraumatic, normocephalic. Pupils are equal, round, and reactive to light. Sclerae anicteric. Conjunctivae are clear. Mucus membranes of the mouth are moist. Neck is supple. RESPIRATORY: Clear to auscultation, diminished. No wheezes, rales, or rhonchi. No use of accessory muscles. Patient maintaining oxygen saturation greater than 92%. Pain and tenderness noted upon palpation of right lateral chest wall CARDIOVASCULAR: Regular rate and rhythm. S1 and S2 noted. No systolic or diastolic murmur auscultated. No JVD noted. No S3 or S4 noted. GASTROINTESTINAL: No distention noted. Abdomen soft and round. Normal active bowel sounds auscultated x 4 quadrants. No pain or tenderness noted upon palpation of abdomen. Patient does have pain to right flank region upon palpation. INTEGUMENTARY: No cyanosis. No jaundice. No rashes noted. No cellulitis noted. EXTREMITIES: 2+ peripheral pulses. No evidence of peripheral edema. No calf tenderness noted. NEUROLOGIC: Cranial nerves II-XII intact. PSYCHIATRIC: Awake and alert. Oriented 3 - Labs CBC & Chem 7: 02/20/18 07:46 02/21/18 06:47 Labs: Abnormal Lab Results - Last 24 Hours (Table) 02/20/18 02/20/18 02/21/18 Range/Units 17:23 19:55 06:47 Chloride 117 H (98-107) mmol/L Carbon Dioxide 19 L (22-30) mmol/L BUN 54 H (7-17) mg/dL Creatinine 2.88 H (0.52-1.04) mg/dL POC Glucose (mg/dL) 102 H 112 H (75-99) mg/dL Alkaline Phosphatase 224 H (38-126) U/L Total Protein 6.2 L (6.3-8.2) g/dL Albumin 3.4 L (3.5-5.0) g/dL 02/21/18 02/21/18 Range/Units 06:59 11:13 Chloride (98-107) mmol/L Carbon Dioxide (22-30) mmol/L BUN (7-17) mg/dL Creatinine (0.52-1.04) mg/dL POC Glucose (mg/dL) 100 H 131 H (75-99) mg/dL Alkaline Phosphatase (38-126) U/L Total Protein (6.3-8.2) g/dL Albumin (3.5-5.0) g/dL Assessment and Plan Plan: ASSESSMENT: Hyperammonemia, etiology unclear, patient does not have portal hypertension and has preserved synthetic liver function, however ammonia levels continue to be elevated and patient previously has had improvement encephalopathy with administration of lactulose Encephalopathy, suspect metabolic secondary to above along with component of IV narcotics Fracture of posterior sixth and ninth rib, December 2017 with increased pain, repeat chest x-ray shows no evidence of new fractures Acute kidney injury, creatinine 2.89 on admission, baseline creatinine 2-2.5 Hyperkalemia, secondary to above, resolved Metabolic acidosis, secondary to acute kidney injury Chronic kidney disease, stage IV, likely secondary to diabetic kidney disease with baseline creatinine creatinine near 2-2.5 COPD, no evidence of acute exacerbation Chronic hypoxic respiratory failure requiring supplemental oxygen Diabetes mellitus, type II Hypertension Hyperlipidemia History of seizure disorder History of anxiety, bipolar disorder, and depression History of nicotine dependence, in remission per patient Gross hematuria Known history of right 9 mm nephrolithiasis PLAN: Nephrology on consult. Appreciate recommendations and input IV iron per nephrology Urology on consult. Await further input regarding possible cystoscopy Neurology on consult. Appreciate recommendations and input. Discontinue Lidoderm patches. Continue Floyd for pain Home meds as appropriate Monitor labs GI prophylaxis: Pepcid 20 mg by mouth twice a day DVT prophylaxis:REGINA hose to bilateral lower extremities Monitor vital signs and address as appropriate Discharge planning: Patient to return home when stable Further recommendations pending patient's course Nurse practitioner note has been reviewed by physician. Signing provider agrees with the documented findings, assessment, and plan of care.
[2018-02-21] MEDS: SODIUM CHLORIDE 0.9% 1,000 ML IV SCH ×2 (15:42→18:44)
--- NOTE | 2018-02-21 15:48 | P.PN ---
Subjective Progress Note Date: 02/21/18 The patient is in the hospital with her fractures. Computed tomography scan identifies a 70 mm right lower pole calyceal stone which is chronic. Known about this for some time. She is asymptomatic. From a urologic standpoint this does not need to be further evaluated. Most likely this is the cause of the hematuria however I do recommend an outpatient evaluation probable cystoscopy. Objective - Vital Signs Vital signs: Vital Signs Temp 98.6 F 02/21/18 13:03 Pulse 111 H 02/21/18 13:03 Resp 18 02/21/18 13:03 BP 151/80 02/21/18 13:03 Pulse Ox 97 02/21/18 13:03 Intake & Output 02/20/18 02/21/18 02/21/18 18:59 06:59 18:59 Intake Total 1180 Balance 1180 Intake: Oral 1180 Other: Voiding Method Bedside Commode Bedside Commode Bedside Commode # Voids 1 3 1 # Bowel Movements 1 - Labs CBC & Chem 7: 02/20/18 07:46 02/21/18 06:47 Labs: Abnormal Lab Results - Last 24 Hours (Table) 02/20/18 02/20/18 02/21/18 Range/Units 17:23 19:55 06:47 Chloride 117 H (98-107) mmol/L Carbon Dioxide 19 L (22-30) mmol/L BUN 54 H (7-17) mg/dL Creatinine 2.88 H (0.52-1.04) mg/dL POC Glucose (mg/dL) 102 H 112 H (75-99) mg/dL Alkaline Phosphatase 224 H (38-126) U/L Total Protein 6.2 L (6.3-8.2) g/dL Albumin 3.4 L (3.5-5.0) g/dL 02/21/18 02/21/18 Range/Units 06:59 11:13 Chloride (98-107) mmol/L Carbon Dioxide (22-30) mmol/L BUN (7-17) mg/dL Creatinine (0.52-1.04) mg/dL POC Glucose (mg/dL) 100 H 131 H (75-99) mg/dL Alkaline Phosphatase (38-126) U/L Total Protein (6.3-8.2) g/dL Albumin (3.5-5.0) g/dL
[2018-02-21 17:26] LABS: Glucose,Whole Blood 110 mg/dL (75-99)
[2018-02-21 19:58] LABS: Glucose,Whole Blood 160 mg/dL (75-99)
[2018-02-21] MEDS: QUEtiapine 50 MG TAB PO SCH (20:13)
[2018-02-21] MEDS: MONTELUKAST 10 MG TAB PO SCH (20:13)
[2018-02-22 06:59] LABS: Glucose,Whole Blood 98 mg/dL (75-99)
[2018-02-22] MEDS: HYDROcodone/APAP 10-325MG 1 EACH TAB PO PRN ×3 (06:59→21:38)
[2018-02-22] MEDS: IPRATROPIUM-ALBUTEROL 3 ML NEB INHALATION SCH ×4 (07:21→20:12)
[2018-02-22] MEDS: INSULIN ASPART 100 UNIT/ML 1 ML 10 ML VIAL SQ SCH ×4 (07:37→20:29)
[2018-02-22] MEDS: SODIUM BICARBONATE TAB 650 MG TAB PO SCH ×2 (07:38→20:28)
[2018-02-22] MEDS: PRIMIDONE 25 MG TAB PO SCH ×3 (07:39→21:35)
[2018-02-22] MEDS: LORATADINE 10 MG TAB PO SCH (07:39)
[2018-02-22] MEDS: LACTULOSE 20 GM/30 ML CUP PO SCH (07:39)
[2018-02-22] MEDS: SERTRALINE 100 MG TAB PO SCH (07:39)
[2018-02-22] MEDS: TAMSULOSIN 0.4 MG CAP.ER.24H PO SCH (07:39)
[2018-02-22] MEDS: FAMOTIDINE 20 MG TAB PO SCH (07:39)
[2018-02-22] MEDS: PHENYTOIN SODIUM EXTENDED 100 MG CAP PO SCH ×3 (07:40→21:35)
[2018-02-22 07:41] LABS: Albumin 3.3 g/dL (3.5-5.0); Calcium 8.7 mg/dL (8.4-10.2); Potassium 4.9 mmol/L (3.5-5.1); Total Bilirubin 0.3 mg/dL (0.2-1.3); Total Protein 6.1 g/dL (6.3-8.2)
[2018-02-22] MEDS: SODIUM FERRIC GLUCONAT-SUCROSE 125 MG in SODIUM CHLORIDE 0.9% 100 ML IVPB SCH (10:39)
[2018-02-22 11:16] LABS: Glucose,Whole Blood 125 mg/dL (75-99)
--- NOTE | 2018-02-22 12:39 | P.PN ---
Subjective Progress Note Date: 02/22/18 Principal diagnosis: Patient is seen in follow for acute kidney injury on chronic kidney disease. Patient has chronic kidney disease stage IV with baseline creatinine in the range of 2-2.4 secondary to diabetic kidney disease. Creatinine peaked at 3.14 on February 18 and did come down to 2.51 yesterday - up to 2.88 today. Oral intake is fair. Patient had one episode of hematuria this admission. States she has history of kidney stones. No evidence of nephrolithiasis noted on renal ultrasound but CT did reveal a nonobstructing right renal stone. No vomiting or diarrhea. Denies abdominal pain. No further hematuria. Today she says her breathing is about the same without any difference in the last 2 days. She is on oxygen by nasal cannula chronically at home and she remains here. She says she is able to walk but feels fatigued no dizziness. No nausea vomiting no problem with her urine or bowel habits. Her vital signs are stable her creatinine is slightly better from 2.8 yesterday to 2.6 this morning Objective - Vital Signs Vital signs: Vital Signs Temp 99.0 F 02/22/18 05:00 Pulse 90 02/22/18 11:18 Resp 16 02/22/18 08:00 BP 137/83 02/22/18 05:00 Pulse Ox 97 02/22/18 05:00 Intake & Output 02/21/18 02/22/18 02/22/18 18:59 06:59 18:59 Intake Total 740 Balance 740 Intake: Intake, IV Titration 150 Amount Sodium Chloride 0.9% 1, 150 000 ml @ 50 mls/hr IV . Q20H FOR[facility]LY [facility], 1928–1983 Rx#:[id number] Oral 590 Other: Voiding Method Bedside Commode Bedside Commode Bedside Commode # Voids 2 2 # Bowel Movements 1 On examination is awake alert oriented. She is on nasal cannula oxygen HEENT exam JVP is not seen, no nodes neck is supple no facial asymmetry Lungs are clear to auscultation fair air entry better bilaterally Heart sounds are unremarkable for any murmur rub gallop Abdomen soft nontender no masses felt Extremity exam reveals no edema Neurologically awake alert oriented - Labs CBC & Chem 7: 02/20/18 07:46 02/22/18 06:54 Labs: Abnormal Lab Results - Last 24 Hours (Table) 02/21/18 02/21/18 02/22/18 Range/Units 17:25 19:57 06:54 Chloride 115 H (98-107) mmol/L Carbon Dioxide 19 L (22-30) mmol/L BUN 54 H (7-17) mg/dL Creatinine 2.69 H (0.52-1.04) mg/dL POC Glucose (mg/dL) 110 H 160 H (75-99) mg/dL Alkaline Phosphatase 212 H (38-126) U/L Total Protein 6.1 L (6.3-8.2) g/dL Albumin 3.3 L (3.5-5.0) g/dL 02/22/18 Range/Units 11:15 Chloride (98-107) mmol/L Carbon Dioxide (22-30) mmol/L BUN (7-17) mg/dL Creatinine (0.52-1.04) mg/dL POC Glucose (mg/dL) 125 H (75-99) mg/dL Alkaline Phosphatase (38-126) U/L Total Protein (6.3-8.2) g/dL Albumin (3.5-5.0) g/dL Assessment and Plan Assessment: Impression 1. Acute kidney injury from Toradol as well as from prerenal creatinine was 3.14 on admission is slowly improved to 2.69. 2. Chronic kidney disease with a baseline creatinine at best at 2 the last several months. Her creatinine does fluctuate. She has diabetes and 2+ proteinuria likely diabetic nephropathy, although her urine microalbumin to creatinine ratio has not been checked recently 3. Mild degree of non-gap acidosis with gap of 9 and bicarb of 19, improved. 4. COPD on oxygen 24 7. 5. Nonobstructing right renal calculus on computed tomography scan with hematuria. 6. Iron deficiency on IV Ferrlecit. Recommendation. 1. Maintain current medications, including sodium bicarb, IV normal saline at 50 an hour. 2. Check orthostatic changes. 3. Completed the third dose of Ferrlecit tomorrow
--- NOTE | 2018-02-22 12:40 | P.PN ---
Subjective 62-year-old female who presented to the emergency room with right lateral chest pain after coughing at home. The patient does have a history of right-sided rib fractures and was hospitalized in December 2017 for intractable pain, right lower lobe pneumonia, and exacerbation of COPD. The patient has also been hospitalized twice since that time in the middle of December 2017 in the evening of January 2018. A chest x-ray was completed in the emergency room showing no elevation right diaphragm compared to old exam. Poor inspiration. Aspiration overall is improved compared to last exam. Heart failure. Aeration of the left lung is improved. There is some atelectasis at the right lung base. A x-ray of the ribs was completed revealing multiple posterior rib fractures that are probably present on old chest x-ray. No evidence of an ache acute rib fracture. The patient was admitted to the hospital under observation to the care of Dr. Marie. The patient has had elevated ammonia levels during previous hospitalizations. She has been evaluated by GI during previous hospitalizations. She has responded well to lactulose during those admissions and encephalopathy improved , however GI felt that the patient did not require lactulose and it was discontinued per GI. The patient did have an ultrasound performed 01/29/2018 revealing 1.5 cm echogenic area along the gallbladder fossa and the left liver lobe. Findings favored to represent either a hemangioma or focal fat. Six- month follow-up ultrasound was recommended. The patient was to follow-up with GI on an outpatient basis. The patient was seen and examined at the bedside this morning in rounds with Dr. Marie. She appears confused. The patient is lethargic with occasional periods where she is lucid. The patient's speech is very slow. She denies chest pain or pressure. She does report pain to the right lateral chest wall. She did receive morphine this morning for pain. 02/19/2018 Patient seen and examined at the bedside this morning. Patient is awake and alert. Patient oriented x 3 during examination but mental status is not back to patients baseline. Patient had an episode of gross hematuria this morning, which is new. She does report history of right kidney stone. She also complains of alot of right flank pain. WAREHOUSE INSULATION WORKER and RN performed visual examination of patients genital region as patient has extremely long fingernails and there was concern from nursing that she may have scratched herself while using the bathroom which may be attributing to the blood. No obvious signs of abrasions noted. Patient did have dried blood near rectum. She denies any blood in her stool. Potassium this morning is 4.4. Ammonia level is down to 44. GI consult has been requested. 02/20/2018 Patient seen and examined on rounds with Dr. Marie. Patient is sitting up in a chair and complaining of severe right flank pain. Patient did have an episode of gross hematuria yesterday but no sample of that void was sent to the laboratory. the patient denies any further episodes of hematuria. The patient underwent an ultrasound yesterday which was negative for hydronephrosis. Patient's previous 9 mm right nephrolithiasis was not visualized on ultrasound. hemoglobin this morning 9.3. BUN 52. Creatinine 2.51. alkaline phosphatase remains elevated at 247. Ammonia level is now within normal limits at 26. 02/21/2018 Patient seen and examined at the bedside. Patient is very emotional and crying. Patient states her mother's birthday just past and she is missing her mother who is . Patient continues to complain of right lateral chest pain due to rib fractures. Patient does not like Lidoderm patches and would like them discontinued. Urology was consulted and evaluated patient yesterday and states that patient may require cystoscopy. CT abdomen and pelvis was reviewed. 02/22/2018 Patient was seen and examined today. She is emotionally improved. She reports her pain is slightly better. Nephrology had ordered iron infusions daily 3. She is currently receiving #2. Urology is deferring any cystoscopy or other treatment at this time as her symptoms are chronic and not obstructing. He'll follow up outpatient. GI signed off the case with the recommendations for outpatient follow-up and continue lactulose 20 mg daily. Radha today was 14. GFR is now 18. Patient denies any chest pains, pressures, has chronic shortness of breath and is on oxygen 4 L/m via nasal cannula. She indicates that she is little unsteady on her feet. She does use a cane at home. Objective - Vital Signs Vital signs: Vital Signs Temp 98.4 F 02/22/18 11:19 Pulse 114 H 02/22/18 11:19 Resp 18 02/22/18 11:19 BP 107/75 02/22/18 11:19 Pulse Ox 96 02/22/18 11:19 Intake & Output 02/21/18 02/22/18 02/22/18 18:59 06:59 18:59 Intake Total 740 Balance 740 Intake: Intake, IV Titration 150 Amount Sodium Chloride 0.9% 1, 150 000 ml @ 50 mls/hr IV . Q20H [facility] Rx#:[id number] Oral 590 Other: Voiding Method Bedside Commode Bedside Commode Bedside Commode # Voids 2 2 # Bowel Movements 1 - Exam GENERAL: This is a 62-year-old female who is in no acute distress at the time of examination. HEENT: Head is atraumatic, normocephalic. Pupils are equal, round, and reactive to light. Sclerae anicteric. Conjunctivae are clear. Mucus membranes of the mouth are moist. Neck is supple. RESPIRATORY: Clear to auscultation, diminished. No wheezes, rales, or rhonchi. No use of accessory muscles. Patient maintaining oxygen saturation greater than 92%. Pain and tenderness noted upon palpation of right lateral chest wall CARDIOVASCULAR: Regular rate and rhythm. S1 and S2 noted. No systolic or diastolic murmur auscultated. No JVD noted. No S3 or S4 noted. GASTROINTESTINAL: No distention noted. Abdomen soft and round. Normal active bowel sounds auscultated x 4 quadrants. No pain or tenderness noted upon palpation of abdomen. Patient does have pain to right flank region upon palpation. INTEGUMENTARY: No cyanosis. No jaundice. No rashes noted. No cellulitis noted. EXTREMITIES: 2+ peripheral pulses. No evidence of peripheral edema. No calf tenderness noted. NEUROLOGIC: Cranial nerves II-XII intact. PSYCHIATRIC: Awake and alert. Oriented 3 - Labs CBC & Chem 7: 02/20/18 07:46 02/22/18 06:54 Labs: Abnormal Lab Results - Last 24 Hours (Table) 02/21/18 02/21/18 02/22/18 Range/Units 17:25 19:57 06:54 Chloride 115 H (98-107) mmol/L Carbon Dioxide 19 L (22-30) mmol/L BUN 54 H (7-17) mg/dL Creatinine 2.69 H (0.52-1.04) mg/dL POC Glucose (mg/dL) 110 H 160 H (75-99) mg/dL Alkaline Phosphatase 212 H (38-126) U/L Total Protein 6.1 L (6.3-8.2) g/dL Albumin 3.3 L (3.5-5.0) g/dL 02/22/18 Range/Units 11:15 Chloride (98-107) mmol/L Carbon Dioxide (22-30) mmol/L BUN (7-17) mg/dL Creatinine (0.52-1.04) mg/dL POC Glucose (mg/dL) 125 H (75-99) mg/dL Alkaline Phosphatase (38-126) U/L Total Protein (6.3-8.2) g/dL Albumin (3.5-5.0) g/dL Assessment and Plan Plan: ASSESSMENT: Hyperammonemia, etiology unclear, patient does not have portal hypertension and has preserved synthetic liver function, however ammonia levels continue to be elevated and patient previously has had improvement encephalopathy with administration of lactulose Encephalopathy, suspect metabolic secondary to above along with component of IV narcotics Fracture of posterior sixth and ninth rib, December 2017 with increased pain, repeat chest x-ray shows no evidence of new fractures Acute kidney injury, creatinine 2.89 on admission, baseline creatinine 2-2.5 Metabolic acidosis, secondary to acute kidney injury Chronic kidney disease, stage IV, likely secondary to diabetic kidney disease with baseline creatinine creatinine near 2-2.5 COPD, no evidence of acute exacerbation Chronic hypoxic respiratory failure requiring supplemental oxygen Diabetes mellitus, type II Hypertension Hyperlipidemia History of seizure disorder History of anxiety, bipolar disorder, and depression History of nicotine dependence, in remission per patient Gross hematuria Known history of right 9 mm nephrolithiasis PLAN: Nephrology on consult. Notes reviewed. IV iron per nephrology currently on dose #2 of 3 Urology on consult. Outpatient treatment and follow-up recommended. Neurology on consult. Appreciate recommendations and input. Dentition appears stable at this time. Continue Lomax for pain Continue lactulose daily Home meds as appropriate Physical therapy evaluation for gait. Monitor labs GI prophylaxis: Pepcid 20 mg by mouth twice a day DVT prophylaxis:REGINA hose to bilateral lower extremities Monitor vital signs and address as appropriate Discharge planning: Patient to return home when stable, but depending on her PT evaluation, ECF may be needed for rehabilitation I'll reevaluate the patient in the next 24 hours
[2018-02-22] MEDS: FOLIC ACID 1 MG TAB PO SCH (14:03)
[2018-02-22 17:15] LABS: Glucose,Whole Blood 103 mg/dL (75-99)
[2018-02-22 19:50] LABS: Glucose,Whole Blood 134 mg/dL (75-99)
[2018-02-22] MEDS: QUEtiapine 50 MG TAB PO SCH (20:28)
[2018-02-22] MEDS: MONTELUKAST 10 MG TAB PO SCH (20:28)
[2018-02-22 23:53] VITALS: RESP 16
[2018-02-23 05:52] VITALS: BP 165/93; TEMP 98.2
[2018-02-23] MEDS: IPRATROPIUM-ALBUTEROL 3 ML NEB INHALATION SCH ×2 (07:00→11:12)
[2018-02-23 07:12] LABS: Glucose,Whole Blood 94 mg/dL (75-99)
[2018-02-23 07:32] LABS: Albumin 3.5 g/dL (3.5-5.0); Calcium 8.6 mg/dL (8.4-10.2); Potassium 4.7 mmol/L (3.5-5.1); Total Bilirubin 0.2 mg/dL (0.2-1.3); Total Protein 6.4 g/dL (6.3-8.2)
[2018-02-23] MEDS: INSULIN ASPART 100 UNIT/ML 1 ML 10 ML VIAL SQ SCH ×2 (07:43→11:56)
[2018-02-23] MEDS: HYDROcodone/APAP 10-325MG 1 EACH TAB PO PRN (07:51)
[2018-02-23] MEDS: SODIUM BICARBONATE TAB 650 MG TAB PO SCH (07:51)
[2018-02-23] MEDS: LORATADINE 10 MG TAB PO SCH (07:52)
[2018-02-23] MEDS: PRIMIDONE 25 MG TAB PO SCH (07:52)
[2018-02-23] MEDS: SERTRALINE 100 MG TAB PO SCH (07:52)
[2018-02-23] MEDS: FAMOTIDINE 20 MG TAB PO SCH (07:52)
[2018-02-23] MEDS: LACTULOSE 20 GM/30 ML CUP PO SCH (07:53)
[2018-02-23] MEDS: TAMSULOSIN 0.4 MG CAP.ER.24H PO SCH (07:53)
[2018-02-23] MEDS: PHENYTOIN SODIUM EXTENDED 100 MG CAP PO SCH (07:56)
[2018-02-23] MEDS: SODIUM FERRIC GLUCONAT-SUCROSE 125 MG in SODIUM CHLORIDE 0.9% 100 ML IVPB SCH (08:35)
[2018-02-23 11:17] LABS: Glucose,Whole Blood 115 mg/dL (75-99)
[2018-02-23 11:23] VITALS: PULSE 88
--- NOTE | 2018-02-23 11:41 | P.DS ---
Providers Date of admission: 02/18/18 14:10 Expected date of discharge: 02/23/18 Attending physician: Mina Marie Consults: 02/18/18 09:59 Consult Physician Routine Consulting Provider: Tavo Winchester Consult Reason/Comments: acute on chronic kidney disease Do you want consulting provider notified?: Yes 02/19/18 14:15 Consult Physician Routine Consulting Provider: Kya Kaur Consult Reason/Comments: Encephalopathy Do you want consulting provider notified?: Yes 02/20/18 10:43 Consult Physician Routine Consulting Provider: Herbie Stoll Consult Reason/Comments: right flank pain, known hx of R kidney stone, hematuria Do you want consulting provider notified?: Yes Primary care physician: Adal Mari - Jose Diagnosis(es) (1) Acute renal failure Current Visit: Yes Status: Acute (2) Chronic renal disease, stage 4, severely decreased glomerular filtration rate (GFR) between 15-29 mL/min/1.73 square meter Current Visit: Yes Status: Acute (3) COPD (chronic obstructive pulmonary disease) Current Visit: Yes Status: Acute (4) Gross hematuria Current Visit: Yes Status: Acute (5) Hematuria Current Visit: Yes Status: Acute (6) Hyperammonemia Current Visit: Yes Status: Acute (7) Rib fracture Current Visit: Yes Status: Acute (8) Altered mental status Current Visit: No Status: Acute (9) Hyperammonemia Current Visit: No Status: Acute (10) Metabolic encephalopathy Current Visit: No Status: Acute (11) Hypoxemia requiring supplemental oxygen Current Visit: Yes Status: Acute (12) Diabetes Current Visit: Yes Status: Acute (13) Seizure disorder Current Visit: Yes Status: Acute Hospital Course: 62-year-old female who presented to the emergency room with right lateral chest pain after coughing at home. The patient does have a history of right-sided rib fractures and was hospitalized in December 2017 for intractable pain, right lower lobe pneumonia, and exacerbation of COPD. The patient has also been hospitalized twice since that time in the middle of December 2017 in the evening of January 2018. A chest x-ray was completed in the emergency room showing no elevation right diaphragm compared to old exam. Poor inspiration. Aspiration overall is improved compared to last exam. Heart failure. Aeration of the left lung is improved. There is some atelectasis at the right lung base. A x-ray of the ribs was completed revealing multiple posterior rib fractures that are probably present on old chest x-ray. No evidence of an ache acute rib fracture. The patient was admitted to the hospital under observation to the care of Dr. Marie. The patient has had elevated ammonia levels during previous hospitalizations. She has been evaluated by GI during previous hospitalizations. She has responded well to lactulose during those admissions and encephalopathy improved , however GI felt that the patient did not require lactulose and it was discontinued per GI. The patient did have an ultrasound performed 01/29/2018 revealing 1.5 cm echogenic area along the gallbladder fossa and the left liver lobe. Findings favored to represent either a hemangioma or focal fat. Six- month follow-up ultrasound was recommended. The patient was to follow-up with GI on an outpatient basis. The patient was seen and examined at the bedside this morning in rounds with Dr. Marie. She appears confused. The patient is lethargic with occasional periods where she is lucid. The patient's speech is very slow. She denies chest pain or pressure. She does report pain to the right lateral chest wall. She did receive morphine this morning for pain. 02/19/2018 Patient seen and examined at the bedside this morning. Patient is awake and alert. Patient oriented x 3 during examination but mental status is not back to patients baseline. Patient had an episode of gross hematuria this morning, which is new. She does report history of right kidney stone. She also complains of alot of right flank pain. CLEANING STAFF SUPERVISOR and RN performed visual examination of patients genital region as patient has extremely long fingernails and there was concern from nursing that she may have scratched herself while using the bathroom which may be attributing to the blood. No obvious signs of abrasions noted. Patient did have dried blood near rectum. She denies any blood in her stool. Potassium this morning is 4.4. Ammonia level is down to 44. GI consult has been requested. 02/20/2018 Patient seen and examined on rounds with Dr. Marie. Patient is sitting up in a chair and complaining of severe right flank pain. Patient did have an episode of gross hematuria yesterday but no sample of that void was sent to the laboratory. the patient denies any further episodes of hematuria. The patient underwent an ultrasound yesterday which was negative for hydronephrosis. Patient's previous 9 mm right nephrolithiasis was not visualized on ultrasound. hemoglobin this morning 9.3. BUN 52. Creatinine 2.51. alkaline phosphatase remains elevated at 247. Ammonia level is now within normal limits at 26. 02/21/2018 Patient seen and examined at the bedside. Patient is very emotional and crying. Patient states her mother's birthday just past and she is missing her mother who is . Patient continues to complain of right lateral chest pain due to rib fractures. Patient does not like Lidoderm patches and would like them discontinued. Urology was consulted and evaluated patient yesterday and states that patient may require cystoscopy. CT abdomen and pelvis was reviewed. 02/22/2018 Patient was seen and examined today. She is emotionally improved. She reports her pain is slightly better. Nephrology had ordered iron infusions daily 3. She is currently receiving #2. Urology is deferring any cystoscopy or other treatment at this time as her symptoms are chronic and not obstructing. He'll follow up outpatient. GI signed off the case with the recommendations for outpatient follow-up and continue lactulose 20 mg daily. Radha today was 14. GFR is now 18. Patient denies any chest pains, pressures, has chronic shortness of breath and is on oxygen 4 L/m via nasal cannula. She indicates that she is little unsteady on her feet. She does use a cane at home. 02/23/2018. Patient was doing well ambulating with a walker. Physical therapy has seen her and felt she would be stable to go home. Urology and GI are planning on seeing outpatient. Nephrology would like her to stay on bicarbonate and she is finished 3 iron infusions daily 3 today. She will follow-up with them outpatient as well. We'll arrange for home nursing and therapy. Patient Condition at Discharge: Stable Plan - Discharge Summary Discharge Rx Participant: No New Discharge Prescriptions: New Darbepoetin Scott [Aranesp] 40 mcg SQ Q7D syringe Famotidine [Pepcid] 20 mg PO DAILY #30 tab HYDROcodone/APAP 10-325MG [Panther 10-325] 1 each PO Q8H PRN tab PRN Reason: Pain Ipratropium-Albuterol Nebulize [Duoneb 0.5 mg-3 mg/3 ml Soln] 3 ml INHALATION RT-QID ampul.neb Lactulose [Cephulac] 20 gm PO DAILY #900 ml Sodium Bicarbonate Tab 1,300 mg PO BID #60 tab Continue Sertraline [Zoloft] 200 mg PO DAILY Phenytoin Sodium Extended [Dilantin] 100 mg PO TID QUEtiapine FUMARATE 150 mg PO HS@1999 Albuterol Inhaler [Ventolin Hfa Inhaler] 2 puff INHALATION RT-Q6H PRN PRN Reason: Shortness Of Breath Folic Acid 1 mg PO DAILY Gemfibrozil [Lopid] 1,200 mg PO HS Loratadine [Claritin] 10 mg PO DAILY #30 tab Montelukast [Singulair] 10 mg PO HS #30 tab Tamsulosin [Flomax] 0.4 mg PO PC-BRKFST #30 cap busPIRone HCL 15 mg PO BID Discharge Medication List Phenytoin Sodium Extended [Dilantin] 100 mg PO TID 11/29/15 [History] Sertraline [Zoloft] 200 mg PO DAILY 11/29/15 [History] Albuterol Inhaler [Ventolin Hfa Inhaler] 2 puff INHALATION RT-Q6H PRN 07/22/17 [ History] Folic Acid 1 mg PO DAILY 07/22/17 [History] QUEtiapine FUMARATE 150 mg PO HS@199907/22/17 [History] Gemfibrozil [Lopid] 1,200 mg PO HS 09/05/17 [History] Loratadine [Claritin] 10 mg PO DAILY #30 tab 12/26/17 [Rx] Montelukast [Singulair] 10 mg PO HS #30 tab 12/26/17 [Rx] Tamsulosin [Flomax] 0.4 mg PO PC-BRKFST #30 cap 01/30/18 [Rx] busPIRone HCL 15 mg PO BID 02/17/18 [History] Darbepoetin Scott [Aranesp] 40 mcg SQ Q7D syringe 02/23/18 [Rx] Famotidine [Pepcid] 20 mg PO DAILY #30 tab 02/23/18 [Rx] HYDROcodone/APAP 10-325MG [Panther 10-325] 1 each PO Q8H PRN tab 02/23/18 [Rx] Ipratropium-Albuterol Nebulize [Duoneb 0.5 mg-3 mg/3 ml Soln] 3 ml INHALATION RT -QID ampul.neb 02/23/18 [Rx] Lactulose [Cephulac] 20 gm PO DAILY #900 ml 02/23/18 [Rx] Sodium Bicarbonate Tab 1,300 mg PO BID #60 tab 02/23/18 [Rx] Follow up Appointment(s)/Referral(s): Adal Mari Jr DO [Primary Care Provider] - 1-2 days Harriet Kwok MD [STAFF PHYSICIAN] - 02/26/18 4:30 pm Kya Kaur MD [STAFF PHYSICIAN] - 3 Weeks Miguel Monroe MD [STAFF PHYSICIAN] - 2 Weeks Discharge Disposition: HOME SELF-CARE
[2018-02-23] MEDS: FOLIC ACID 1 MG TAB PO SCH (11:57)
[2018-02-23] MEDS: ACETAMINOPHEN TAB 325 MG TAB PO PRN (11:57)
[2018-02-23] MEDS: SODIUM CHLORIDE 0.9% 1,000 ML IV SCH (12:08)
--- NOTE | 2018-02-23 14:17 | P.PN ---
Subjective Progress Note Date: 02/23/18 Principal diagnosis: Patient is seen in follow for acute kidney injury on chronic kidney disease. Patient has chronic kidney disease stage IV with baseline creatinine in the range of 2-2.4 secondary to diabetic kidney disease. Creatinine peaked at 3.14 on February 18 and did come down to 2.51 on 02/20/2018 and then went up to 2.8 on 02/21/2018. Her creatinine is down to 2.52 this morning. She feels fairly well she is still on oxygen she is being discharged. She has been on oxygen at home prior to this admission. She denies any nausea vomiting diarrhea abdominal pain. Appetite is fair no dizziness on standing up. States she has history of kidney stones. No evidence of nephrolithiasis noted on renal ultrasound but CT did reveal a nonobstructing right renal stone. Objective - Vital Signs Vital signs: Vital Signs Temp 98.2 F 02/23/18 05:00 Pulse 88 02/23/18 11:22 Resp 16 02/23/18 08:00 BP 165/93 02/23/18 05:00 Pulse Ox 96 02/23/18 05:00 Intake & Output 02/22/18 02/23/18 02/23/18 18:59 06:59 18:59 Intake Total 1900 1820 Balance 1900 1820 Weight 74.843 kg Intake: Intake, IV Titration 400 400 Amount Sodium Chloride 0.9% 1, 400 400 000 ml @ 50 mls/hr IV . Q20H [facility] Rx#:[id number] Oral 1500 1420 Other: Voiding Method Bedside Commode Toilet Toilet # Voids 2 2 # Bowel Movements 2 Examination she is awake alert oriented comfortable HEENT exam no JVP neck is supple no facial asymmetry She is on nasal cannula oxygen Lungs are clear to auscultation fair air entry bilaterally Heart sounds are unremarkable for any murmur rub gallop Abdomen is obese difficult to examine but nontender protuberant though. Extremity exam was no edema - Labs CBC & Chem 7: 02/20/18 07:46 02/23/18 06:57 Labs: Abnormal Lab Results - Last 24 Hours (Table) 02/22/18 02/22/18 02/23/18 Range/Units 17:14 19:49 06:57 Sodium 146 H (137-145) mmol/L Chloride 115 H (98-107) mmol/L Carbon Dioxide 19 L (22-30) mmol/L BUN 46 H (7-17) mg/dL Creatinine 2.52 H (0.52-1.04) mg/dL POC Glucose (mg/dL) 103 H 134 H (75-99) mg/dL Alkaline Phosphatase 221 H (38-126) U/L 02/23/18 Range/Units 11:15 Sodium (137-145) mmol/L Chloride (98-107) mmol/L Carbon Dioxide (22-30) mmol/L BUN (7-17) mg/dL Creatinine (0.52-1.04) mg/dL POC Glucose (mg/dL) 115 H (75-99) mg/dL Alkaline Phosphatase (38-126) U/L Assessment and Plan Assessment: Impression 1. Acute kidney injury from Toradol as well as from prerenal creatinine was 3.14 on admission is slowly improved to 2.69, further to 2.5 to today on the day of discharge. 2. Chronic kidney disease with a baseline creatinine at best at 2 the last several months. Her creatinine does fluctuate. She has diabetes and 2+ proteinuria likely diabetic nephropathy, although her urine microalbumin to creatinine ratio has not been checked recently 3. Mild degree of non-gap acidosis with gap of 9 and bicarb of 19, improved. 4. COPD on oxygen 24 7. 5. Nonobstructing right renal calculus on computed tomography scan with hematuria. 6. Iron deficiency on IV Ferrlecit. Completed 3 courses of Ferrlecit 125 mg. 7. Anemia hemoglobin is 9.3 Recommendation. 1. Patient can be discharged to be followed up in our office within the week. 2. Maintain home blood pressure record's and daily weights. 3. Continue sodium bicarb 1 discharged. 4. She may not require any erythropoietin stimulating agents as she has now been replenished with iron but we'll keep a watch on it as an outpatient
== END 2018-02-23 15:20 | disposition home health service (06) | DRG 682 ==
LOC: EC 22:07 → 5MS5E 02-18 01:31 → OBSVTOIN 02-18 14:10
PROVIDERS: ADMIT Family Medicine; ATTEND Family Medicine
DX: N17.9 Acute kidney failure, unspecified (principal); G92 Toxic encephalopathy; I13.0 Hypertensive heart and chronic kidney disease with heart failure and stage 1 through stage 4 chronic kidney disease, or unspecified chronic kidney disease; E72.20 Disorder of urea cycle metabolism, unspecified; E87.2 Acidosis; J96.11 Chronic respiratory failure with hypoxia; J98.11 Atelectasis; D18.03 Hemangioma of intra-abdominal structures; D63.1 Anemia in chronic kidney disease; E11.21 Type 2 diabetes mellitus with diabetic nephropathy; E11.22 Type 2 diabetes mellitus with diabetic chronic kidney disease; E61.1 Iron deficiency; E78.5 Hyperlipidemia, unspecified; E87.5 Hyperkalemia; F12.10 Cannabis abuse, uncomplicated; F31.9 Bipolar disorder, unspecified; F41.9 Anxiety disorder, unspecified; G40.909 Epilepsy, unspecified, not intractable, without status epilepticus; I50.9 Heart failure, unspecified; Z87.01 Personal history of pneumonia (recurrent); J44.9 Chronic obstructive pulmonary disease, unspecified; K86.9 Disease of pancreas, unspecified; N18.4 Chronic kidney disease, stage 4 (severe); N20.0 Calculus of kidney; R31.0 Gross hematuria; S22.41XD Multiple fractures of ribs, right side, subsequent encounter for fracture with routine healing; Z79.52 Long term (current) use of systemic steroids; Z79.899 Other long term (current) drug therapy; Z82.49 Family history of ischemic heart disease and other diseases of the circulatory system; Z83.3 Family history of diabetes mellitus; Z87.442 Personal history of urinary calculi; Z87.891 Personal history of nicotine dependence; Z90.710 Acquired absence of both cervix and uterus; Z99.81 Dependence on supplemental oxygen; Z88.0 Allergy status to penicillin; Z63.4 Disappearance and death of family member; R26.81 Unsteadiness on feet
CPT/HCPCS: 36415; 71046; 74176; 76770; 80048; 80053; 80177; 80185; 81001; 82140; 82272; 82550; 82553; 82607; 82728; 83036; 83540; 83550; 83735; 83880; 84132; 84443; 84484; 85025; 85610; 85730; 93005; 94640; 94760; 95816; 96374; 96375; 99285

== ENCOUNTER → 2018-03-05 | Outpatient (CLI) | payer OTHER ==
[2018-03-05 16:25] LABS: Basophils % (A) 0 %; Eosinophils # (A) 0.2 k/uL (0-0.7); Eosinophils % (A) 4 %; HCT 31.9 % (34.0-46.0); HGB 10.1 gm/dL (11.4-16.0); Hypochromasia Marked; Lymphocytes # (A) 0.7 k/uL (1.0-4.8); Lymphocytes % (A) 17 %; MCH 32.2 pg (25.0-35.0); MCHC 31.7 g/dL (31.0-37.0); MCV 101.5 fL (80.0-100.0); Macrocytosis Slight; Mean Platelet Volume 7.4; Monocytes # (A) 0.2 k/uL (0-1.0); Monocytes % (A) 5 %; Neutrophils % (A) 72 %; Platelet Count 202 k/uL (150-450); Poikilocytosis Slight; RBC 3.14 m/uL (3.80-5.40); RDW 15.1 % (11.5-15.5); WBC 4.2 k/uL (3.8-10.6)
[2018-03-05 16:36] LABS: Albumin 3.9 g/dL (3.5-5.0); Calcium 8.1 mg/dL (8.4-10.2); Phosphorus 4.8 mg/dL (2.5-4.5); Potassium 5.2 mmol/L (3.5-5.1); Total Bilirubin 0.4 mg/dL (0.2-1.3)
== END | disposition home or self-care (01) ==
LOC: LABWHC1 15:47
PROVIDERS: ATTEND Nurse Practitioner Family
DX: K72.90 Hepatic failure, unspecified without coma (principal); J44.9 Chronic obstructive pulmonary disease, unspecified; N18.4 Chronic kidney disease, stage 4 (severe); R31.9 Hematuria, unspecified
CPT/HCPCS: 36415; 80053; 82140; 84100; 85025

== ENCOUNTER → 2018-03-05 | Outpatient (CLI) | payer OTHER ==
--- NOTE | 2018-03-05 16:45 | XR ---
EXAMINATION TYPE: XR lumbosacral spine min 4V DATE OF EXAM: 03/05/2018 COMPARISON: NONE HISTORY: Low back pain TECHNIQUE: 5 views FINDINGS: Vertebra have normal alignment. There is osteopenia. There is no compression fracture. Disc spaces are normal. Abdominal aorta is atheromatous. Sacroiliac joints are intact. There is 1 cm calc ification lower pole right kidney. IMPRESSION: Osteopenia. No fracture. Right renal calculus. Calculus unchanged compared to 01/13/1713.
== END ==
LOC: RADXRMAIN 16:19
PROVIDERS: ATTEND Family Medicine
DX: M85.80 Other specified disorders of bone density and structure, unspecified site (principal)
CPT/HCPCS: 72110

== ENCOUNTER → 2018-07-16 | Outpatient (CLI) | payer OTHER ==
[2018-07-16 15:22] LABS: HCT 30.3 % (34.0-46.0); Hypochromasia Moderate; MCH 33.6 pg (25.0-35.0); MCHC 32.9 g/dL (31.0-37.0); Macrocytosis Slight; Mean Platelet Volume 7.9; Platelet Count 214 k/uL (150-450); RBC 2.97 m/uL (3.80-5.40); RDW 14.3 % (11.5-15.5); WBC 5.6 k/uL (3.8-10.6)
[2018-07-16 18:42] LABS: Iron Saturation 27.71 (12.00-45.00)
[2018-07-16 18:54] LABS: ALT <8 U/L (8-44); AST 14 U/L (13-35); Albumin/Globulin Ratio 1.76 (1.60-3.17); Alkaline Phosphatase 394 U/L (41-126); Calcium 6.8 mg/dL (8.7-10.3); Carbon Dioxide 22.3 mmol/L (21.6-31.8); Chloride 110 mmol/L (96-109); Globulin 2.5 g/dL (1.6-3.3); Glucose 164 mg/dL (70-110); Magnesium 1.5 mg/dL (1.5-2.4); Phosphorus 6.1 mg/dL (2.4-5.1); Potassium 4.5 mmol/L (3.5-5.5); Sodium 144 mmol/L (135-145); Total Bilirubin 0.1 mg/dL (0.3-1.2); Total Protein 6.9 g/dL (6.2-8.2); Vitamin D 25 Hydroxy 16.4 ng/mL (30.0-100.0)
[2018-07-16 22:59] LABS: Hemoglobin A1C 5.2 % (4.0-6.0)
== END | disposition home or self-care (01) ==
LOC: LABWHC1 14:58
PROVIDERS: ATTEND Nurse Practitioner Family
DX: E55.9 Vitamin D deficiency, unspecified (principal); M10.9 Gout, unspecified; N25.81 Secondary hyperparathyroidism of renal origin; E11.22 Type 2 diabetes mellitus with diabetic chronic kidney disease; N18.4 Chronic kidney disease, stage 4 (severe); D63.1 Anemia in chronic kidney disease; D50.9 Iron deficiency anemia, unspecified
CPT/HCPCS: 36415; 80053; 82306; 82728; 83036; 83540; 83550; 83735; 83970; 84100; 84550; 85027

== ENCOUNTER 2018-07-20 20:01 | Inpatient (IN) | payer OTHER ==
[2018-07-20] MEDS ORDERED: IPRATROPIUM-ALBUTEROL 3 ML NEB INHALATION STA ×2 (20:31→20:52)
[2018-07-20] MEDS ORDERED: methylPREDNISolone SOD SUCCI 125 MG/2 ML VIAL IV STA (20:31)
[2018-07-20] MEDS ORDERED: SODIUM CHLORIDE 0.9% 500 ML 500 ML IV STA (20:31)
[2018-07-20 20:58] LABS: Basophils % (A) 0 %; Eosinophils # (A) 0.3 k/uL (0-0.7); Eosinophils % (A) 5 %; HCT 32.2 % (34.0-46.0); Hypochromasia Slight; Lymphocytes # (A) 1.2 k/uL (1.0-4.8); Lymphocytes % (A) 20 %; MCH 31.8 pg (25.0-35.0); MCV 102.6 fL (80.0-100.0); Macrocytosis Slight; Mean Platelet Volume 7.4; Monocytes # (A) 0.4 k/uL (0-1.0); Monocytes % (A) 7 %; Neutrophils % (A) 66 %; Platelet Count 214 k/uL (150-450); RBC 3.14 m/uL (3.80-5.40); RDW 14.3 % (11.5-15.5); WBC 6.1 k/uL (3.8-10.6)
--- NOTE | 2018-07-20 21:06 | XR ---
EXAMINATION TYPE: XR chest 2V DATE OF EXAM: 07/20/2018 COMPARISON: 02/17/2018 INDICATION: Cough congestion difficulty breathing TECHNIQUE: Frontal and lateral views of the chest are obtained. FINDINGS: The heart size is borderline prominent. The pulmonary vasculature is upper limits. There is right upper lobe opacification. Small infiltrate may be present. Underlying mass is not excl uded. This should be followed to clearing.. There is focal eventration of the diaphragm on the right . This was present previously. IMPRESSION: 1. Correlate for developing congestive heart failure. 2. Right upper lobe infiltrate versus mass. Follow-up to clearing is recommended.
[2018-07-20 21:11] LABS: INR 0.9 (<1.2); Partial Thromboplastin Time 25.2 sec (22.0-30.0); Prothrombin Time 10.2 sec (9.0-12.0)
[2018-07-20 21:22] LABS: Albumin 4.1 g/dL (3.5-5.0); Calcium 7.3 mg/dL (8.4-10.2); Potassium 5.5 mmol/L (3.5-5.1); Total Bilirubin 0.4 mg/dL (0.2-1.3); Total Protein 7.4 g/dL (6.3-8.2)
[2018-07-20] MEDS ORDERED: FUROSEMIDE 40 MG TAB PO STA (21:46)
--- NOTE | 2018-07-20 21:47 | ED ---
General Adult HPI <Michael Coello - Last Filed: 07/20/18 22:25> - General Source: patient, RN notes reviewed, old records reviewed Mode of arrival: wheelchair Limitations: physical limitation <Eduard Baron - Last Filed: 07/21/18 00:03> - General Chief complaint: Shortness of Breath Stated complaint: GUERO Time Seen by Provider: 07/20/18 20:28 - History of Present Illness Initial comments: 63-year-old female patient past medical history of CKD4, COPD, presents to ED with 4 days of COPD exacerbation, shortness of breath. Patient presents that she has been using her inhaler at home however has not been successful. Patient reports that she has been wheezing. Patient reports a dry cough. Patient denies any chest pain. Patient denies abdominal pain. Patient has any fevers chills, nausea vomiting diarrhea. Patient denies other complaints. Systemic: Pt denies fatigue, myalgia, fever/chills, rash. Pt denies weakness, night sweats, weight loss. Neuro: Pt denies headache, visual disturbances, syncope or pre-syncope. HEENT: Pt denies ocular discharge or irritation, otalgia, rhinorrhea, pharyngitis or notable lymphadenopathy. Cardiopulmonary: Pt denies chest pain, heart palpitations, dyspnea on exertion. Abdominal/GI: Pt denies abdominal pain, n/v/d. : Pt denies dysuria, burning w/ urination, frequency/urgency. Denies new onset urinary or bowel incontinence. MSK: Pt denies myalgia, loss of strength or function in extremities. Neuro: Pt denies new onset weakness, paresthesias. (Eduard Baron) - Related Data Home Medications Medication Instructions Recorded Confirmed Phenytoin Sodium Extended 100 mg PO TID 11/29/15 07/20/18 [Dilantin] Sertraline [Zoloft] 200 mg PO DAILY 11/29/15 07/20/18 Folic Acid 1 mg PO DAILY 07/22/17 07/20/18 QUEtiapine FUMARATE 150 mg PO HS@199907/22/17 07/20/18 Gemfibrozil [Lopid] 1,200 mg PO HS 09/05/17 07/20/18 Bisoprolol-Hctz 5-6.25 mg [Ziac 1 tab PO DAILY 07/20/18 07/20/18 5-6.25] Calcitriol 0.5 mcg PO MOWEFR 07/20/18 07/20/18 Cyclobenzaprine [Flexeril] 5 mg PO BID PRN 07/20/18 07/20/18 Omeprazole [PriLOSEC] 20 mg PO DAILY 07/20/18 07/20/18 Primidone [Mysoline] 50 mg PO BID 07/20/18 07/20/18 Previous Rx's Medication Instructions Recorded Montelukast [Singulair] 10 mg PO HS #30 tab 12/26/17 Sodium Bicarbonate Tab 1,300 mg PO BID #60 tab 02/23/18 Allergies Allergy/AdvReac Type Severity Reaction Status Date / Time Penicillins Allergy Mild Swelling Verified 07/20/18 23:00 Review of Systems ROS Other: All systems not noted in ROS Statement are negative. <Michael Coello - Last Filed: 07/20/18 22:25> ROS Other: All systems not noted in ROS Statement are negative. <Eduard Baron - Last Filed: 07/21/18 00:03> ROS Statement: Those systems with pertinent positive or pertinent negative responses have been documented in the HPI. Past Medical History Past Medical History: COPD, Diabetes Mellitus, Hyperlipidemia, Hypertension, Seizure Disorder History of Any Multi-Drug Resistant Organisms: None Reported Past Surgical History: Hysterectomy Additional Past Surgical History / Comment(s): ESWL Past Anesthesia/Blood Transfusion Reactions: No Reported Reaction Past Psychological History: Anxiety, Bipolar, Depression Smoking Status: Former smoker Past Alcohol Use History: None Reported Past Drug Use History: Marijuana, Prescription Drug Abuse - Past Family History Mother Family Medical History: Diabetes Mellitus, Hypertension Father Family Medical History: Hypertension <Eduard Baron - Last Filed: 07/21/18 00:03> General Exam <Michael Coello - Last Filed: 07/20/18 22:25> Limitations: physical limitation <Eduard Baron - Last Filed: 07/21/18 00:03> - General Exam Comments Initial Comments: Constitutional: NAD, AOX3, Pt has pleasant affect. HEENT: NC/AT, trachea midline, neck supple, no lymphadenopathy. Posterior pharynx non erythematous, without exudates. External ears appear normal, without discharge. Mucous membranes moist. Eyes PERRLA, EOM intact. There is no scleral icterus. No pallor noted. Cardiopulmonary: RRR, no murmurs, rubs or gallops, no JVD noted. Wheezing noted in anterior and posterior rascon. Resolved after breathing treatment. No respiratory distress. No peripheral edema. Abdominal exam: Abdomen soft and non-distended. Abdomen non-tender to palpation in all 4 quadrants. Bowel sounds active in LLQ. No hepatosplenomegaly. No ecchymosis Neuro: CN II-XII grossly intact. No nuchal rigidity. MSK: No posterior calf tenderness bilaterally, homans sign negative bilaterally. Posterior tibialis and radial pulse +2 bilaterally. Sensation intact in upper and lower extremities. Full active ROM in upper and lower extremities, 5/5 stregnth. (Eduard Baron) Course <Michael Coello - Last Filed: 07/20/18 22:25> <Eduard Baron - Last Filed: 07/21/18 00:03> Vital Signs 07/20/18 07/20/18 07/20/18 20:03 20:40 20:48 Temperature 98.4 F Pulse Rate 78 73 78 Respiratory 24 Rate Blood Pressure 175/91 O2 Sat by Pulse 99 Oximetry 07/20/18 07/20/18 07/20/18 21:20 21:30 22:06 Temperature Pulse Rate 74 77 70 Respiratory 18 Rate Blood Pressure 170/91 O2 Sat by Pulse 98 Oximetry 07/20/18 23:24 Temperature Pulse Rate 70 Respiratory 18 Rate Blood Pressure 144/99 O2 Sat by Pulse 98 Oximetry - Reevaluation(s) Reevaluation #1: 07/20/18 22:26 Page supervision: I proceeded [id number] evaluation the patient did discuss findings with her and her family. Patient does present with complaints of difficulty breathing for past 2-3 days getting worse. Exertional dyspnea. No overt edema to the lower extremities. She's had chills no fevers or sweats. X- ray shows evidence of right upper lobe infiltrate also evidence of CHF. Patient does have elevated BNP as well as evidence of chronic renal insufficiency. Patient will be admitted I do agree with the assessment and plan. Dr. Levy was contacted. (Michael Coello) Medical Decision Making - Lab Data Result diagrams: 07/20/18 20:40 07/20/18 20:40 <Michael Coello - Last Filed: 07/20/18 22:25> - Lab Data Result diagrams: 07/20/18 20:40 07/20/18 20:40 - EKG Data -: EKG Interpreted by Me (and Dr. Coello) <Eduard Baron - Last Filed: 07/21/18 00:03> - Medical Decision Making 63-year-old female patient past medical history of CKD4, COPD, presents to ED with 4 days of COPD exacerbation, shortness of breath. Patient presents that she has been using her inhaler at home however has not been successful. Patient reports that she has been wheezing. Patient reports a dry cough. Patient denies any chest pain. Patient denies abdominal pain. Patient has any fevers chills, nausea vomiting diarrhea. Patient denies other complaints. Pt VSS, afebrile. Physical exam displayed: Wheezing noted in anterior and posterior rascon. Resolved after breathing treatment. No respiratory distress. No peripheral edema. Laboratory investigations reveal non- impressive CBC. Coagulation studies within normal limits. CMP revealed mild hyperkalemia 5.5. CO2 of 17. Cr of 3.00. Troponin was negative. BNP was elevated at 3000. EKG not concerning for acute ischemia. Pt has hx of LBBB. Chest x-ray displayed possible developing congestive heart failure. Right upper lobe infiltrate versus mass. Patient was admitted to hospital for CHF, COPD exacerbation, Community acquired pneumonia. Patient presented with administration of steroids, breathing treatment. Patient was administered IV antibiotics for possible pneumonia. Patient was administered Lasix for CHF. Patient stable. Patient discussed and seen by Dr. Coello. (Eduard Baron) - Lab Data Lab Results 07/20/18 07/20/18 07/20/18 Range/Units 20:40 20:40 20:40 WBC 6.1 (3.8-10.6) k/uL RBC 3.14 L (3.80-5.40) m/uL Hgb 10.0 L (11.4-16.0) gm/dL Hct 32.2 L (34.0-46.0) % MCV 102.6 H (80.0-100.0) fL MCH 31.8 (25.0-35.0) pg MCHC 31.0 (31.0-37.0) g/dL RDW 14.3 (11.5-15.5) % Plt Count 214 (150-450) k/uL Neutrophils % 66 % Lymphocytes % 20 % Monocytes % 7 % Eosinophils % 5 % Basophils % 0 % Neutrophils # 4.0 (1.3-7.7) k/uL Lymphocytes # 1.2 (1.0-4.8) k/uL Monocytes # 0.4 (0-1.0) k/uL Eosinophils # 0.3 (0-0.7) k/uL Basophils # 0.0 (0-0.2) k/uL Hypochromasia Slight Macrocytosis Slight PT 10.2 (9.0-12.0) sec INR 0.9 (<1.2) APTT 25.2 (22.0-30.0) sec Sodium 143 (137-145) mmol/L Potassium 5.5 H (3.5-5.1) mmol/L Chloride 114 H (98-107) mmol/L Carbon Dioxide 18 L (22-30) mmol/L Anion Gap 11 mmol/L BUN 45 H (7-17) mg/dL Creatinine 3.00 H (0.52-1.04) mg/dL Est GFR (CKD-EPI)AfAm 18 (>60 ml/min/1.73 sqM) Est GFR (CKD-EPI)NonAf 16 (>60 ml/min/1.73 sqM) Glucose 97 (74-99) mg/dL Calcium 7.3 L (8.4-10.2) mg/dL Total Bilirubin 0.4 (0.2-1.3) mg/dL AST 15 (14-36) U/L ALT 20 (9-52) U/L Alkaline Phosphatase 318 H (38-126) U/L Troponin I (0.000-0.034) ng/mL NT-Pro-B Natriuret Pep pg/mL Total Protein 7.4 (6.3-8.2) g/dL Albumin 4.1 (3.5-5.0) g/dL 07/20/18 07/20/18 Range/Units 20:40 20:40 WBC (3.8-10.6) k/uL RBC (3.80-5.40) m/uL Hgb (11.4-16.0) gm/dL Hct (34.0-46.0) % MCV (80.0-100.0) fL MCH (25.0-35.0) pg MCHC (31.0-37.0) g/dL RDW (11.5-15.5) % Plt Count (150-450) k/uL Neutrophils % % Lymphocytes % % Monocytes % % Eosinophils % % Basophils % % Neutrophils # (1.3-7.7) k/uL Lymphocytes # (1.0-4.8) k/uL Monocytes # (0-1.0) k/uL Eosinophils # (0-0.7) k/uL Basophils # (0-0.2) k/uL Hypochromasia Macrocytosis PT (9.0-12.0) sec INR (<1.2) APTT (22.0-30.0) sec Sodium (137-145) mmol/L Potassium (3.5-5.1) mmol/L Chloride (98-107) mmol/L Carbon Dioxide (22-30) mmol/L Anion Gap mmol/L BUN (7-17) mg/dL Creatinine (0.52-1.04) mg/dL Est GFR (CKD-EPI)AfAm (>60 ml/min/1.73 sqM) Est GFR (CKD-EPI)NonAf (>60 ml/min/1.73 sqM) Glucose (74-99) mg/dL Calcium (8.4-10.2) mg/dL Total Bilirubin (0.2-1.3) mg/dL AST (14-36) U/L ALT (9-52) U/L Alkaline Phosphatase (38-126) U/L Troponin I <0.012 (0.000-0.034) ng/mL NT-Pro-B Natriuret Pep 3000 pg/mL Total Protein (6.3-8.2) g/dL Albumin (3.5-5.0) g/dL - EKG Data EKG Comments: Ventricular rate 76, RI interval 180, QRS 134, QT/QTc 446/501. Normal sinus rhythm, left bundle branch block. No concern for acute ischemia. Patient left bundle branch block on prior EKG 01/2018 (Eduard Baron) Disposition <Michael Coello - Last Filed: 07/20/18 22:25> Is patient prescribed a controlled substance at d/c from ED?: No <Eduard Baron - Last Filed: 07/21/18 00:03> Clinical Impression: Congestive heart failure (CHF), COPD exacerbation Disposition: ADMITTED IP TO THIS HOSP Condition: Serious
[2018-07-20] MEDS ORDERED: NALOXONE 0.4 MG/ML 1 ML VIAL IV PRN (22:06)
[2018-07-20] MEDS ORDERED: ACETAMINOPHEN TAB 325 MG TAB PO PRN (22:06)
[2018-07-20] MEDS ORDERED: LEVOFLOXACIN 750MG-D5W PMX 750 MG in DEXTROSE/WATER 1 150ML.BAG IVPB STA (22:10)
[2018-07-21 04:50] VITALS: BMI 33.2
[2018-07-21 06:40] LABS: Basophils % (A) 0 %; Eosinophils % (A) 1 %; HCT 28.1 % (34.0-46.0); HGB 8.6 gm/dL (11.4-16.0); Hypochromasia Moderate; Lymphocytes # (A) 0.6 k/uL (1.0-4.8); Lymphocytes % (A) 11 %; MCH 30.9 pg (25.0-35.0); MCHC 30.7 g/dL (31.0-37.0); MCV 100.8 fL (80.0-100.0); Macrocytosis Slight; Mean Platelet Volume 7.5; Monocytes # (A) 0.3 k/uL (0-1.0); Monocytes % (A) 5 %; Neutrophils # (A) 4.4 k/uL (1.3-7.7); Neutrophils % (A) 83 %; Platelet Count 205 k/uL (150-450); RBC 2.79 m/uL (3.80-5.40); RDW 14.3 % (11.5-15.5); WBC 5.3 k/uL (3.8-10.6)
[2018-07-21 06:45] LABS: Calcium 6.9 mg/dL (8.4-10.2); Potassium 5.5 mmol/L (3.5-5.1)
[2018-07-21 06:45] LABS: Glucose,Whole Blood 92 mg/dL (75-99)
--- NOTE | 2018-07-21 08:21 | P.CRDCN ---
History of Present Illness Consult date: 07/21/18 Requesting physician: Adal Mari Jr Consult reason: congestive heart failure Chief complaint: Shortness of breath History of present illness: This is a pleasant 63-year-old female with past medical history of a chronic kidney disease, diabetes, hypertension, hyperlipidemia, COPD, prior history of smoking for which the patient states that she quit approximately 3 years ago. Patient presented to the hospital on this occasion with symptoms of progressively worsening shortness of breath over a 3-4 day duration. She has been using her inhaler which did not seem to give her any relief. Positive cough, nonproductive. He denies any fever or chills. Chest x-ray on admission showed congestive heart failure with right upper lobe infiltrate versus mass. Her EKG shows a normal sinus rhythm with a left bundle-branch block pattern. Upon review of prior EKGs, patient has been noted to have a left bundle-branch block pattern in the past. Blood pressure 144/90, heart rate in the 70s, afebrile. White blood cell count is normal, hemoglobin on admission 10.0, 8.6 this morning. Platelet count 205. Sodium 144, potassium 5.5, BUN 48 and creatinine 2.2. Ferritin level 45.8, iron saturation 27.7, vitamin D 16.4, troponin 0.012 and BNP 3000. Patient was given an oral dose of Lasix on admission here and started on by mouth Lasix. She does state that she is put out urine since her admission. She does not take any Lasix at home and has not been told in the past to have any history of congestive cardiac failure. At the time of my examination this morning, she sitting up at the side of the bed, breathing is overall stable. Past Medical History Past Medical History: COPD, Diabetes Mellitus, Hyperlipidemia, Hypertension, Seizure Disorder History of Any Multi-Drug Resistant Organisms: None Reported Past Surgical History: Hysterectomy Additional Past Surgical History / Comment(s): ESWL Past Anesthesia/Blood Transfusion Reactions: No Reported Reaction Past Psychological History: Anxiety, Bipolar, Depression Smoking Status: Former smoker Past Alcohol Use History: None Reported Past Drug Use History: Marijuana, Prescription Drug Abuse - Past Family History Mother Family Medical History: Diabetes Mellitus, Hypertension Father Family Medical History: Hypertension Medications and Allergies Home Medications Medication Instructions Recorded Confirmed Type Phenytoin Sodium Extended 100 mg PO TID 11/29/15 07/20/18 History [Dilantin] Sertraline [Zoloft] 200 mg PO DAILY 11/29/15 07/20/18 History Folic Acid 1 mg PO DAILY 07/22/17 07/20/18 History QUEtiapine FUMARATE 150 mg PO HS@199907/22/17 07/20/18 History Gemfibrozil [Lopid] 1,200 mg PO HS 09/05/17 07/20/18 History Montelukast [Singulair] 10 mg PO HS #30 tab 12/26/17 07/20/18 Rx Sodium Bicarbonate Tab 1,300 mg PO BID #60 tab 02/23/18 07/20/18 Rx Bisoprolol-Hctz 5-6.25 mg [Ziac 1 tab PO DAILY 07/20/18 07/20/18 History 5-6.25] Calcitriol 0.5 mcg PO MOWEFR 07/20/18 07/20/18 History Cyclobenzaprine [Flexeril] 5 mg PO BID PRN 07/20/18 07/20/18 History Omeprazole [PriLOSEC] 20 mg PO DAILY 07/20/18 07/20/18 History Primidone [Mysoline] 50 mg PO BID 07/20/18 07/20/18 History Allergies Allergy/AdvReac Type Severity Reaction Status Date / Time Penicillins Allergy Mild Swelling Verified 07/20/18 23:00 Physical Exam Vitals: Vital Signs Temp Pulse Pulse Resp BP BP Pulse Ox 07/21/18 04:05 98.2 F 77 20 149/84 95 07/21/18 00:05 81 21 07/20/18 23:45 98.2 F 77 21 179/81 94 L 07/20/18 23:24 70 18 144/99 98 07/20/18 22:06 70 18 170/91 98 07/20/18 21:30 77 07/20/18 21:20 74 07/20/18 20:48 78 07/20/18 20:40 73 07/20/18 20:03 98.4 F 78 24 175/91 99 Intake and Output 07/20/18 07/21/18 07/21/18 22:59 06:59 14:59 Other: Voiding Method Toilet # Voids 3 Weight 87.815 kg 86 kg PHYSICAL EXAMINATION: GENERAL: 63-year-old female in no acute distress at the time of my examination HEENT: Head is atraumatic, normocephalic. Pupils equal, round. Sclera anicteric. Conjunctiva are clear. Mucous membranes of the mouth are moist. Neck is supple. There is no elevated jugular venous pressure. No carotid bruit is heard. HEART EXAMINATION: Heart S1, S2 normal. No murmur or gallop heard. CHEST EXAMINATION: Lungs reveal diminished air entry to bilateral bases. ABDOMEN: Soft, nontender. Bowel sounds are heard. No organomegaly noted. EXTREMITIES: 2+ peripheral pulses with trace evidence of peripheral edema and no calf tenderness noted. NEUROLOGIC patient is awake, alert and oriented 3 . . Results 07/21/18 05:57 07/21/18 05:57 Cardiac Enzymes 07/20/18 07/20/18 Range/Units 20:40 20:40 AST 15 (14-36) U/L Troponin I <0.012 (0.000-0.034) ng/mL Coagulation 07/20/18 Range/Units 20:40 PT 10.2 (9.0-12.0) sec APTT 25.2 (22.0-30.0) sec CBC 07/20/18 07/21/18 Range/Units 20:40 05:57 WBC 6.1 5.3 (3.8-10.6) k/uL RBC 3.14 L 2.79 L (3.80-5.40) m/uL Hgb 10.0 L 8.6 L (11.4-16.0) gm/dL Hct 32.2 L 28.1 L (34.0-46.0) % Plt Count 214 205 (150-450) k/uL Comprehensive Metabolic Panel 07/20/18 07/21/18 Range/Units 20:40 05:57 Sodium 143 144 (137-145) mmol/L Potassium 5.5 H 5.5 H (3.5-5.1) mmol/L Chloride 114 H 113 H (98-107) mmol/L Carbon Dioxide 18 L 22 (22-30) mmol/L BUN 45 H 48 H (7-17) mg/dL Creatinine 3.00 H 2.82 H (0.52-1.04) mg/dL Glucose 97 98 (74-99) mg/dL Calcium 7.3 L 6.9 L (8.4-10.2) mg/dL AST 15 (14-36) U/L ALT 20 (9-52) U/L Alkaline Phosphatase 318 H (38-126) U/L Total Protein 7.4 (6.3-8.2) g/dL Albumin 4.1 (3.5-5.0) g/dL Current Medications Generic Name Dose Route Start Last Admin Trade Name Freq PRN Reason Stop Dose Admin Acetaminophen 650 mg 07/20/18 22:06 Tylenol Tab PO Q6HR PRN Mild Pain or Fever > 100.5 Albuterol/Ipratropium 3 ml 07/20/18 23:13 Duoneb 0.5 Mg-3 Mg/3 Ml Soln INHALATION Q4HR PRN wheezing Furosemide 40 mg 07/21/18 09:00 Lasix PO BID@0900,1600 BHAVIK Naloxone HCl 0.2 mg 07/20/18 22:06 Narcan IV Q2M PRN Opioid Reversal Intake and Output 07/20/18 07/21/18 07/21/18 22:59 06:59 14:59 Other: Voiding Method Toilet # Voids 3 Weight 87.815 kg 86 kg 07/21/18 05:57 07/21/18 05:57 EKG Interpretations (text) EKG shows normal sinus rhythm with a left bundle-branch block pattern Assessment and Plan Plan: Assessment and plan #1 symptoms of progressively worsening shortness of breath, likely component of COPD exacerbation and congestive cardiac failure. LV function unknown #2 hypertension #3 diabetes #4 hyperlipidemia #5 COPD #6 nicotine dependence #7 acute on chronic renal failure #8 chronic anemia likely secondary to renal failure Plan We will obtain an echocardiogram with Doppler study, start the patient on IV Lasix. We will start the patient on a beta ulises. Potassium remains elevated likely secondary to renal failure, we will hold off on starting any angiotensin ulises at this time. Further recommendations to follow. DNP note has been reviewed, I agree with a documented findings and plan of care. Patient was seen and examined.
[2018-07-21] MEDS: METOPROLOL SUCCINATE (ER) 25 MG TAB.ER.24H PO SCH (08:36)
[2018-07-21] MEDS: FUROSEMIDE 10 MG/ML 4 ML VIAL IV SCH ×2 (08:36→20:04)
[2018-07-21] MEDS ORDERED: FUROSEMIDE 40 MG TAB PO SCH (09:00)
[2018-07-21 11:52] LABS: Glucose,Whole Blood 116 mg/dL (75-99)
[2018-07-21] MEDS: HYDROcodone/APAP 5-325MG 1 EACH TAB PO PRN ×3 (13:03→23:06)
[2018-07-21] MEDS: methylPREDNISolone SOD SUCCI 125 MG/2 ML VIAL IV SCH ×3 (13:03→23:02)
[2018-07-21] MEDS: CALCITRIOL 0.25 MCG CAP PO SCH (13:03)
[2018-07-21] MEDS: INSULIN ASPART (NovoLOG) 100 UNIT/ML VIAL SQ SCH ×3 (13:04→20:05)
[2018-07-21] MEDS: LEVOFLOXACIN 250MG-D5W PMX 250 MG in DEXTROSE/WATER 1 50ML.BAG IVPB SCH (13:04)
--- NOTE | 2018-07-21 13:04 | P.HPIM ---
History of Present Illness H&P Date: 07/21/18 Chief Complaint: kathie Baird is a 63 y/o WF with a H/o COPD. She c/o using her inhaler for SOB and cough for the past few days without it helping. She came into the ER and was evaluated. CXR show ? infiltrate, and CHF, BMP 3000. She si now being evaluated for further tx. She denies any Chest pain, nausea, vomitting, diarrhea or constipation. Review of Systems All systems: negative Past Medical History Past Medical History: COPD, Diabetes Mellitus, Hyperlipidemia, Hypertension, Seizure Disorder History of Any Multi-Drug Resistant Organisms: None Reported Past Surgical History: Hysterectomy Additional Past Surgical History / Comment(s): ESWL Past Anesthesia/Blood Transfusion Reactions: No Reported Reaction Past Psychological History: Anxiety, Bipolar, Depression Smoking Status: Former smoker Past Alcohol Use History: None Reported Past Drug Use History: Marijuana, Prescription Drug Abuse - Past Family History Mother Family Medical History: Diabetes Mellitus, Hypertension Father Family Medical History: Hypertension Medications and Allergies Home Medications Medication Instructions Recorded Confirmed Type Phenytoin Sodium Extended 100 mg PO TID 11/29/15 07/20/18 History [Dilantin] Sertraline [Zoloft] 200 mg PO DAILY 11/29/15 07/20/18 History Folic Acid 1 mg PO DAILY 07/22/17 07/20/18 History QUEtiapine FUMARATE 150 mg PO HS@199907/22/17 07/20/18 History Gemfibrozil [Lopid] 1,200 mg PO HS 09/05/17 07/20/18 History Montelukast [Singulair] 10 mg PO HS #30 tab 12/26/17 07/20/18 Rx Sodium Bicarbonate Tab 1,300 mg PO BID #60 tab 02/23/18 07/20/18 Rx Bisoprolol-Hctz 5-6.25 mg [Ziac 1 tab PO DAILY 07/20/18 07/20/18 History 5-6.25] Calcitriol 0.5 mcg PO MOWEFR 07/20/18 07/20/18 History Cyclobenzaprine [Flexeril] 5 mg PO BID PRN 07/20/18 07/20/18 History Omeprazole [PriLOSEC] 20 mg PO DAILY 07/20/18 07/20/18 History Primidone [Mysoline] 50 mg PO BID 07/20/18 07/20/18 History Allergies Allergy/AdvReac Type Severity Reaction Status Date / Time Penicillins Allergy Mild Swelling Verified 07/20/18 23:00 Physical Exam Vitals: Vital Signs Temp Pulse Pulse Resp BP BP Pulse Ox 07/21/18 12:00 98.2 F 81 18 133/79 97 07/21/18 08:47 95 07/21/18 08:00 98.4 F 82 18 128/81 96 07/21/18 04:05 98.2 F 77 20 149/84 95 07/21/18 00:05 81 21 07/20/18 23:45 98.2 F 77 21 179/81 94 L 07/20/18 23:24 70 18 144/99 98 07/20/18 22:06 70 18 170/91 98 07/20/18 21:30 77 07/20/18 21:20 74 07/20/18 20:48 78 07/20/18 20:40 73 07/20/18 20:03 98.4 F 78 24 175/91 99 Intake and Output 07/20/18 07/21/18 07/21/18 22:59 06:59 14:59 Intake Total 240 Balance 240 Intake: Oral 240 Other: Voiding Method Toilet Toilet # Voids 3 0 Weight 87.815 kg 86 kg - Constitutional General appearance: average body habitus - EENT Eyes: PERRLA ENT: normal oropharynx - Neck Neck: no lymphadenopathy, no thyromegaly - Respiratory Respiratory: bilateral: diminished - Cardiovascular Rhythm: regular Heart sounds: normal: S1, S2 Abnormal Heart Sounds: no systolic murmur - Gastrointestinal General gastrointestinal: normal bowel sounds, no organomegaly - Neurologic Neurologic: CNII-XII intact - Psychiatric Psychiatric: A&O x's 3, appropriate affect Results CBC & Chem 7: 07/21/18 05:57 07/21/18 05:57 Labs: Abnormal Lab Results - Last 24 Hours (Table) 07/20/18 07/20/18 07/21/18 Range/Units 20:40 20:40 05:57 RBC 3.14 L 2.79 L (3.80-5.40) m/uL Hgb 10.0 L 8.6 L (11.4-16.0) gm/dL Hct 32.2 L 28.1 L (34.0-46.0) % MCV 102.6 H 100.8 H (80.0-100.0) fL MCHC 30.7 L (31.0-37.0) g/dL Lymphocytes # 0.6 L (1.0-4.8) k/uL Potassium 5.5 H (3.5-5.1) mmol/L Chloride 114 H (98-107) mmol/L Carbon Dioxide 18 L (22-30) mmol/L BUN 45 H (7-17) mg/dL Creatinine 3.00 H (0.52-1.04) mg/dL POC Glucose (mg/dL) (75-99) mg/dL Calcium 7.3 L (8.4-10.2) mg/dL Alkaline Phosphatase 318 H (38-126) U/L 07/21/18 07/21/18 Range/Units 05:57 11:50 RBC (3.80-5.40) m/uL Hgb (11.4-16.0) gm/dL Hct (34.0-46.0) % MCV (80.0-100.0) fL MCHC (31.0-37.0) g/dL Lymphocytes # (1.0-4.8) k/uL Potassium 5.5 H (3.5-5.1) mmol/L Chloride 113 H (98-107) mmol/L Carbon Dioxide (22-30) mmol/L BUN 48 H (7-17) mg/dL Creatinine 2.82 H (0.52-1.04) mg/dL POC Glucose (mg/dL) 116 H (75-99) mg/dL Calcium 6.9 L (8.4-10.2) mg/dL Alkaline Phosphatase (38-126) U/L Chest x-ray: report reviewed Thrombosis Risk Factor Assmnt - DVT/VTE Prophylaxis DVT/VTE Prophylaxis: Pharmacologic Prophylaxis ordered - Choose All That Apply Any of the Below Risk Factors Present?: Yes Each Factor Represents 1 point: Abnormal pulmonary function (COPD), Heart failure (<1month), Obesity (BMI >25), Serious lung disease incl. pneumonia (< 1month), Swollen legs (current) Other Risk Factors: Yes Each Risk Factor Represents 2 Points: Age 61-74 years Other congenital or acquired thrombophilia - If yes, enter type in comment: No Thrombosis Risk Factor Assessment Total Risk Factor Score: 7 Thrombosis Risk Factor Assessment Level: High Risk Assessment and Plan (1) Iron deficiency anemia Current Visit: Yes Status: Acute Code(s): D50.9 - IRON DEFICIENCY ANEMIA, UNSPECIFIED SNOMED Code(s): 56186296 (2) COPD exacerbation Current Visit: Yes Status: Acute Code(s): J44.1 - CHRONIC OBSTRUCTIVE PULMONARY DISEASE W (ACUTE) EXACERBATION SNOMED Code(s): 660683253 (3) Congestive heart failure (CHF) Current Visit: Yes Status: Acute Code(s): I50.9 - HEART FAILURE, UNSPECIFIED SNOMED Code(s): 36431020 (4) Acute renal failure Current Visit: No Status: Acute Code(s): N17.9 - ACUTE KIDNEY FAILURE, UNSPECIFIED SNOMED Code(s): 69136070 (5) Acute respiratory failure Current Visit: No Status: Acute Code(s): J96.00 - ACUTE RESPIRATORY FAILURE , UNSP W HYPOXIA OR HYPERCAPNIA SNOMED Code(s): 22306897 (6) Chronic renal disease, stage 4, severely decreased glomerular filtration rate (GFR) between 15-29 mL/min/1.73 square meter Current Visit: No Status: Acute Code(s): N18.4 - CHRONIC KIDNEY DISEASE, STAGE 4 (SEVERE) SNOMED Code(s): 285616780 (7) Diabetes Current Visit: No Status: Acute Code(s): E11.9 - TYPE 2 DIABETES MELLITUS WITHOUT COMPLICATIONS SNOMED Code(s): 99313379 (8) Pneumonia Current Visit: No Status: Acute Code(s): J18.9 - PNEUMONIA, UNSPECIFIED ORGANISM SNOMED Code(s): 020280874 Plan: Will consult cardiology for her abn BMP and CXR, pulmonolgy for her COPD and possible pneumonia and NEphrology for her acute on chronic renal failure repeat labs in am SQ heparin for DVT prophylaxis f/u in the next 24 hrs
[2018-07-21] MEDS: PHENYTOIN SODIUM EXTENDED 100 MG CAP PO SCH ×2 (15:18→20:05)
[2018-07-21] MEDS: HEPARIN SODIUM,PORCINE 5,000 UNIT/ML 1 ML VIAL SQ SCH ×2 (15:18→23:03)
[2018-07-21] MEDS: FAMOTIDINE 20 MG TAB PO SCH (15:18)
--- NOTE | 2018-07-21 16:27 | P.CNPUL ---
History of Present Illness Consult date: 07/21/18 Reason for consult: dyspnea History of present illness: A 63-year-old female patient is coming in for increased shortness of breath. The patient's breathing got progressively worse over the past 3-4 days. The patient a positive cough that was initially nonproductive and later on she started bringing up some sputum. She denied having any fever or chills. She was feeling sick in general. No angina pain no pleurisy. No hemoptysis. She is known to have COPD. She has history of smoking and she quit smoking approximately 3 years ago. She also has history of runny kidney disease, hypertension, hyperlipidemia and diabetes mellitus. The patient came into the hospital. A chest x-ray was done that showed a right upper lobe pulmonary infiltrate consistent with pneumonia. The patient was started on broad- spectrum antibiotics. Also, the patient was found to have a normal white count and evidence of chronic renal failure with a creatinine of 2.2. Troponin was at 0.012 and an BNP level was at 3000. No exposure to sick contacts. No travel history. No bouts of recurrent pneumonias. Currently she is on Levaquin. His dose was given in the emergency department I am going to continue the dose at 250 mg on a daily basis. The patient is also on IV Solu- Medrol and DuoNeb about treatments around the clock regarding her acute COPD exacerbation secondary to right upper lobe pneumonia. Outpatient medications of been ordered resume. She is doing well. No mental status change. No headaches. No nausea or vomiting. No diarrhea. No abdominal pain. No other significant events otherwise for now. Cardiology is also on the case. Review of Systems Constitutional: Reports fatigue Eyes: denies as per HPI, denies blurred vision, denies bulging eye, denies decreased vision, denies diplopia, denies discharge, denies dry eye, denies irritation, denies itching, denies pain, denies photophobia, denies loss of peripheral vision, denies loss of vision, denies tunnel vision/blind spots Ears: deny: decreased hearing, ear discharge, earache, tinnitus Ears, nose, mouth and throat: Denies headache, Denies sore throat Breasts: absent: as per HPI, change in shape, gynecomastia, masses, nipple discharge, pain, skin changes, swelling Cardiovascular: Reports dyspnea on exertion Respiratory: Reports cough, Reports dyspnea, Reports wheezing Gastrointestinal: Denies abdominal pain, Denies diarrhea, Denies nausea, Denies vomiting Genitourinary: Reports as per HPI Menstruation: Reports as per HPI Musculoskeletal: absent: ankle pain, ankle stiffness, ankle swelling, as per HPI , elbow pain, elbow stiffness, elbow swelling, foot pain, foot stiffness, foot swelling, hand pain, hand stiffness, hand swelling, hip pain, hip stiffness, hip swelling, knee pain, knee stiffness, knee swelling, shoulder pain, shoulder stiffness, shoulder swelling, wrist pain, wrist stiffness, wrist swelling Integumentary: Reports as per HPI Neurological: Reports as per HPI Psychiatric: Reports as per HPI Endocrine: Reports as per HPI Hematologic/Lymphatic: Reports as per HPI Allergic/Immunologic: Reports as per HPI Past Medical History Past Medical History: COPD, Diabetes Mellitus, Hyperlipidemia, Hypertension, Seizure Disorder History of Any Multi-Drug Resistant Organisms: None Reported Past Surgical History: Hysterectomy Additional Past Surgical History / Comment(s): ESWL Past Anesthesia/Blood Transfusion Reactions: No Reported Reaction Past Psychological History: Anxiety, Bipolar, Depression Smoking Status: Former smoker Past Alcohol Use History: None Reported Past Drug Use History: Marijuana, Prescription Drug Abuse - Past Family History Mother Family Medical History: Diabetes Mellitus, Hypertension Father Family Medical History: Hypertension Medications and Allergies Home Medications Medication Instructions Recorded Confirmed Type Phenytoin Sodium Extended 100 mg PO TID 11/29/15 07/20/18 History [Dilantin] Sertraline [Zoloft] 200 mg PO DAILY 11/29/15 07/20/18 History Folic Acid 1 mg PO DAILY 07/22/17 07/20/18 History QUEtiapine FUMARATE 150 mg PO [id number]/17 07/20/18 History Gemfibrozil [Lopid] 1,200 mg PO HS 09/05/17 07/20/18 History Montelukast [Singulair] 10 mg PO HS #30 tab 12/26/17 07/20/18 Rx Sodium Bicarbonate Tab 1,300 mg PO BID #60 tab 02/23/18 07/20/18 Rx Bisoprolol-Hctz 5-6.25 mg [Ziac 1 tab PO DAILY 07/20/18 07/20/18 History 5-6.25] Calcitriol 0.5 mcg PO MOWEFR 07/20/18 07/20/18 History Cyclobenzaprine [Flexeril] 5 mg PO BID PRN 07/20/18 07/20/18 History Omeprazole [PriLOSEC] 20 mg PO DAILY 07/20/18 07/20/18 History Primidone [Mysoline] 50 mg PO BID 07/20/18 07/20/18 History Allergies Allergy/AdvReac Type Severity Reaction Status Date / Time Penicillins Allergy Mild Swelling Verified 07/20/18 23:00 Physical Exam Vitals: Vital Signs Temp Pulse Pulse Resp BP BP Pulse Ox 07/21/18 12:00 98.2 F 81 18 133/79 97 07/21/18 08:47 95 07/21/18 08:00 98.4 F 82 18 128/81 96 07/21/18 04:05 98.2 F 77 20 149/84 95 07/21/18 00:05 81 21 07/20/18 23:45 98.2 F 77 21 179/81 94 L 07/20/18 23:24 70 18 144/99 98 07/20/18 22:06 70 18 170/91 98 07/20/18 21:30 77 07/20/18 21:20 74 07/20/18 20:48 78 07/20/18 20:40 73 07/20/18 20:03 98.4 F 78 24 175/91 99 Intake and Output 07/21/18 07/21/18 07/21/18 06:59 14:59 22:59 Intake Total 240 240 Balance 240 240 Intake: Oral 240 240 Other: Voiding Method Toilet Toilet # Voids 3 0 Weight 86 kg Gen. appearance, comfortable likely distress Head exam was generally normal. There was no scleral icterus or corneal arcus. Mucous membranes were moist. Neck was supple and without jugular venous distension, thyromegaly, or carotid bruits. Carotids were easily palpable bilaterally. There was no adenopathy. Lungs sounds are diminished bilaterally and there is prolongation of the expiratory phase of breathing and scattered expiratory wheezes throughout the lung rascon. Cardiac exam revealed the PMI to be normally situated and sized. The rhythm was regular and no extrasystoles were noted during several minutes of auscultation. The first and second heart sounds were normal and physiologic splitting of the second heart sound was noted. There were no murmurs, rubs, clicks, or gallops. Abdominal exam revealed normal bowel sounds. The abdomen was soft, non-tender, and without masses, organomegaly, or appreciable enlargement of the abdominal aorta. Examination of the extremities revealed easily palpable radial, femoral and pedal pulses. There was no cyanosis, clubbing or edema. Examination of the skin revealed no evidence of significant rashes, suspicious appearing nevi or other concerning lesions. Neurologically awake and alert and there is no focal neurological deficit. Results - Laboratory Findings CBC and BMP: 07/21/18 05:57 07/21/18 05:57 PT/INR, D-dimer PT 10.2 sec (9.0-12.0) 07/20/18 20:40 INR 0.9 (<1.2) 07/20/18 20:40 Abnormal lab findings: Abnormal Labs 07/20/18 07/20/18 07/21/18 20:40 20:40 05:57 RBC 3.14 L 2.79 L Hgb 10.0 L 8.6 L Hct 32.2 L 28.1 L MCV 102.6 H 100.8 H MCHC 30.7 L Lymphocytes # 0.6 L Potassium 5.5 H Chloride 114 H Carbon Dioxide 18 L BUN 45 H Creatinine 3.00 H POC Glucose (mg/dL) Calcium 7.3 L Alkaline Phosphatase 318 H 07/21/18 07/21/18 05:57 11:50 RBC Hgb Hct MCV MCHC Lymphocytes # Potassium 5.5 H Chloride 113 H Carbon Dioxide BUN 48 H Creatinine 2.82 H POC Glucose (mg/dL) 116 H Calcium 6.9 L Alkaline Phosphatase - Diagnostic Findings Chest x-ray: image reviewed Assessment and Plan Plan: Assessment 1 acute right upper lobe pneumonia 2 acute COPD exacerbation secondary to underlying right upper lobe pneumonia. 3 acute hypoxic respiratory failure secondary to above, currently on 42 of oxygen nasal cannula 4 I Diabetes mellitus type II 5 hyperlipidemia 6 chronic kidney failure. The patient has stage IV chronic kidney disease 7 peripheral neuropathy 8. Seizure disorder 9 previous history of fracture of the posterior ninth and 60 mg along with mild pleural thickening on the right side Plan Obtain a sputum Gram stain and culture. Obtain blood culture. Check a Legionella urine antigen. Proceed with DuoNeb nebulized treatments around the clock. Add Pulmicort Respules and at Perforomist nebulized treatments twice a day. Continue Levaquin and goes up to 50 mg IV every 24 hours. Continue IV Solu-Medrol. Cardiology consultation. Obtain a based on echocardiogram. Resume outpatient medications and will continue to follow and make further recommendations based on the patient's progress. A repeat chest x-ray will be reviewed within next 24-48 hours. We'll continue to follow.
[2018-07-21 17:00] LABS: Glucose,Whole Blood 156 mg/dL (75-99)
[2018-07-21 18:34] LABS: Iron Saturation 26.03 (12.00-45.00)
[2018-07-21] MEDS: BUDESONIDE 0.5 MG/2 ML NEBU INHALATION SCH ×2 (19:37→19:50)
[2018-07-21] MEDS: FORMOTEROL FUMARATE 20 MCG/2 ML NEBU INHALATION SCH (19:38)
[2018-07-21] MEDS: IPRATROPIUM-ALBUTEROL 3 ML NEB INHALATION PRN (19:38)
[2018-07-21] MEDS: QUEtiapine 50 MG TAB PO SCH (20:04)
[2018-07-21] MEDS: MONTELUKAST 10 MG TAB PO SCH (20:05)
[2018-07-21] MEDS: PRIMIDONE 50 MG TAB PO SCH (20:05)
[2018-07-21] MEDS: SODIUM BICARBONATE TAB 650 MG TAB PO SCH (20:05)
[2018-07-21 20:15] LABS: Glucose,Whole Blood 159 mg/dL (75-99)
[2018-07-21] MEDS ORDERED: GEMFIBROZIL PO SCH (21:00)
[2018-07-22] MEDS: INSULIN ASPART (NovoLOG) 100 UNIT/ML VIAL SQ SCH ×4 (06:18→21:15)
[2018-07-22] MEDS: methylPREDNISolone SOD SUCCI 125 MG/2 ML VIAL IV SCH ×2 (06:21→11:44)
[2018-07-22] MEDS: PANTOPRAZOLE 40 MG TABLET PO SCH (06:22)
[2018-07-22 06:34] LABS: Glucose,Whole Blood 131 mg/dL (75-99)
[2018-07-22 07:17] LABS: Albumin 3.7 g/dL (3.5-5.0); Calcium 7.6 mg/dL (8.4-10.2); Potassium 5.3 mmol/L (3.5-5.1); Total Bilirubin 0.3 mg/dL (0.2-1.3); Total Protein 6.6 g/dL (6.3-8.2)
[2018-07-22 07:18] LABS: Basophils % (A) 0 %; Eosinophils # (A) 0.1 k/uL (0-0.7); Eosinophils % (A) 2 %; HCT 28.1 % (34.0-46.0); Hypochromasia Slight; Lymphocytes # (A) 1.1 k/uL (1.0-4.8); Lymphocytes % (A) 22 %; MCH 32.3 pg (25.0-35.0); MCV 100.9 fL (80.0-100.0); Macrocytosis Slight; Monocytes # (A) 0.4 k/uL (0-1.0); Monocytes % (A) 7 %; Neutrophils # (A) 3.5 k/uL (1.3-7.7); Neutrophils % (A) 67 %; Platelet Count 225 k/uL (150-450); RBC 2.78 m/uL (3.80-5.40); RDW 14.2 % (11.5-15.5); WBC 5.1 k/uL (3.8-10.6)
[2018-07-22] MEDS: FAMOTIDINE 20 MG TAB PO SCH (07:33)
[2018-07-22] MEDS: METOPROLOL SUCCINATE (ER) 25 MG TAB.ER.24H PO SCH (07:34)
[2018-07-22] MEDS: FOLIC ACID 1 MG TAB PO SCH (07:34)
[2018-07-22] MEDS: PHENYTOIN SODIUM EXTENDED 100 MG CAP PO SCH ×3 (07:34→21:15)
[2018-07-22] MEDS: PRIMIDONE 50 MG TAB PO SCH ×2 (07:34→21:14)
[2018-07-22] MEDS: SODIUM BICARBONATE TAB 650 MG TAB PO SCH ×2 (07:34→21:14)
[2018-07-22] MEDS: SERTRALINE 100 MG TAB PO SCH (07:34)
[2018-07-22] MEDS: HEPARIN SODIUM,PORCINE 5,000 UNIT/ML 1 ML VIAL SQ SCH ×3 (07:35→22:31)
[2018-07-22] MEDS: FUROSEMIDE 10 MG/ML 4 ML VIAL IV SCH ×2 (07:35→21:15)
[2018-07-22] MEDS: FORMOTEROL FUMARATE 20 MCG/2 ML NEBU INHALATION SCH ×2 (08:05→19:57)
[2018-07-22] MEDS: IPRATROPIUM-ALBUTEROL 3 ML NEB INHALATION PRN ×2 (08:05→19:47)
--- NOTE | 2018-07-22 11:02 | ECHOF ---
Referral Reason:chf MEASUREMENTS -------- HEIGHT: 162.6 cm WEIGHT: 85.7 kg BP: 149/84 RVIDd: 2.3 cm (< 3.3) IVSd: 1.1 cm (0.6 - 1.1) LVIDd: 4.2 cm (3.9 - 5.3) LVPWd: 1.1 cm (0.6 - 1.1) IVSs: 1.2 cm LVIDs: 3.6 cm LVPWs: 1.6 cm LAESV Index (A-L): 30.28 ml/m Ao Diam: 4.0 cm (2.0 - 3.7) AV Cusp: 1.6 cm (1.5 - 2.6) RAP: 5.00 mmHg RVSP: 13.13 mmHg FINDINGS -------- Atrial fibrillation. This was a technically adequate study. The left ventricular size is normal. There is borderline concentric left ventricular hypertrophy. Overall left ventricular systolic function is moderate-severely impaired with, an EF between 30 - 35 %. Mid inferoseptal LV wall motion is dyskinetic. Mid anteroseptal LV wall motion is dyskinetic. Inferior Hypokinesis Septal Hypokinesis The right ventricle is normal in size. LA is midly dilated 29-33ml/m2. The right atrium was not well visualized. There is mild aortic valve sclerosis. Trace amount of aortic regurgitation. There is no evidence of aortic stenosis. The mitral valve leaflets are mildly thickened. Mild mitral annular calcification present. There is trace to mild mitral regurgitation. Trace tricuspid regurgitation present. Right ventricular systolic pressure is normal at < 35 mmHg. There is no evidence of pulmonary hypertension. The pulmonic valve was not well visualized. The aortic root is dilated measuring 4.0 cm. Normal inferior vena cava with normal inspiratory collapse consistent with estimated right atrial pre ssure of 5 mmHg. There is no pericardial effusion. CONCLUSIONS -------- 1. Atrial fibrillation. 2. This was a technically adequate study. 3. The left ventricular size is normal. 4. There is borderline concentric left ventricular hypertrophy. 5. Overall left ventricular systolic function is moderate-severely impaired with, an EF between 30 - 35 %. 6. Mid inferoseptal LV wall motion is dyskinetic. 7. Mid anteroseptal LV wall motion is dyskinetic. 8. Inferior Hypokinesis 9. Septal Hypokinesis 10. The right ventricle is normal in size. 11. LA is midly dilated 29-33ml/m2. 12. The right atrium was not well visualized. 13. There is mild aortic valve sclerosis. 14. Trace amount of aortic regurgitation. 15. The mitral valve leaflets are mildly thickened. 16. Mild mitral annular calcification present. 17. There is trace to mild mitral regurgitation. 18. Trace tricuspid regurgitation present. 19. Right ventricular systolic pressure is normal at < 35 mmHg. 20. There is no evidence of pulmonary hypertension. 21. The pulmonic valve was not well visualized. 22. The aortic root is dilated measuring 4.0 cm. 23. There is no pericardial effusion. [employer] INSTALLER HELPER: Ron Foote RDCS
[2018-07-22] MEDS: LEVOFLOXACIN 250MG-D5W PMX 250 MG in DEXTROSE/WATER 1 50ML.BAG IVPB SCH (11:44)
[2018-07-22 12:15] LABS: Glucose,Whole Blood 144 mg/dL (75-99)
--- NOTE | 2018-07-22 12:17 | P.PN ---
Subjective Progress Note Date: 07/22/18 This is a pleasant 63-year-old female with past medical history of a chronic kidney disease, diabetes, hypertension, hyperlipidemia, COPD, prior history of smoking for which the patient states that she quit approximately 3 years ago. Patient presented to the hospital on this occasion with symptoms of progressively worsening shortness of breath over a 3-4 day duration. She has been using her inhaler which did not seem to give her any relief. Positive cough, nonproductive. He denies any fever or chills. Chest x-ray on admission showed congestive heart failure with right upper lobe infiltrate versus mass. Her EKG shows a normal sinus rhythm with a left bundle-branch block pattern. Upon review of prior EKGs, patient has been noted to have a left bundle-branch block pattern in the past. Blood pressure 144/90, heart rate in the 70s, afebrile. White blood cell count is normal, hemoglobin on admission 10.0, 8.6 this morning. Platelet count 205. Sodium 144, potassium 5.5, BUN 48 and creatinine 2.2. Ferritin level 45.8, iron saturation 27.7, vitamin D 16.4, troponin 0.012 and BNP 3000. Patient was given an oral dose of Lasix on admission here and started on by mouth Lasix. She does state that she is put out urine since her admission. She does not take any Lasix at home and has not been told in the past to have any history of congestive cardiac failure. At the time of my examination this morning, she sitting up at the side of the bed, breathing is overall stable. 07/22/2018 Patient was seen and examined this morning, her weight is down 3 kg today. Blood pressure 134/90 with a heart rate in the 90s, 98% on 4 L. White blood cell count 5.1, hemoglobin 9, platelet count 225. Sodium 144, potassium 5.3, BUN 66 and creatinine 3.05. Patient does feel that her breathing is somewhat improved overall today. We will repeat a chest x-ray tomorrow morning. Continue current dose of IV Lasix. Objective - Vital Signs Vital signs: Vital Signs Temp 97.9 F 07/22/18 08:00 Pulse 88 07/22/18 08:28 Resp 18 07/22/18 08:00 BP 134/97 07/22/18 08:00 Pulse Ox 98 07/22/18 08:00 Intake & Output 07/21/18 07/22/18 07/22/18 18:59 06:59 18:59 Intake Total 770 230 Balance 770 230 Weight 83.2 kg Intake: Intake, IV Titration 50 Amount Levofloxacin 250Mg-D5w 50 Pmx 250 mg In Dextrose/ Water 1 50ml.bag @ 50 mls /hr IVPB Q24H [facility] Rx#: [id number] Oral 720 230 Other: Voiding Method Toilet Toilet Toilet # Voids 1 1 2 - Exam PHYSICAL EXAMINATION: GENERAL: 63-year-old female in no acute distress at the time of my examination HEENT: Head is atraumatic, normocephalic. Pupils equal, round. Sclera anicteric. Conjunctiva are clear. Mucous membranes of the mouth are moist. Neck is supple. There is no elevated jugular venous pressure. No carotid bruit is heard. HEART EXAMINATION: Heart S1, S2 normal. No murmur or gallop heard. CHEST EXAMINATION: Lungs reveal diminished air entry to bilateral bases. ABDOMEN: Soft, nontender. Bowel sounds are heard. No organomegaly noted. EXTREMITIES: 2+ peripheral pulses with trace evidence of peripheral edema and no calf tenderness noted. NEUROLOGIC patient is awake, alert and oriented 3 . - Labs CBC & Chem 7: 07/22/18 06:23 07/22/18 06:23 Labs: Abnormal Lab Results - Last 24 Hours (Table) 07/21/18 07/21/18 07/22/18 Range/Units 16:40 20:04 06:17 RBC (3.80-5.40) m/uL Hgb (11.4-16.0) gm/dL Hct (34.0-46.0) % MCV (80.0-100.0) fL Potassium (3.5-5.1) mmol/L Chloride (98-107) mmol/L Carbon Dioxide (22-30) mmol/L BUN (7-17) mg/dL Creatinine (0.52-1.04) mg/dL POC Glucose (mg/dL) 156 H 159 H 131 H (75-99) mg/dL Calcium (8.4-10.2) mg/dL AST (14-36) U/L Alkaline Phosphatase (38-126) U/L 07/22/18 07/22/18 Range/Units 06:23 06:23 RBC 2.78 L (3.80-5.40) m/uL Hgb 9.0 L (11.4-16.0) gm/dL Hct 28.1 L (34.0-46.0) % MCV 100.9 H (80.0-100.0) fL Potassium 5.3 H (3.5-5.1) mmol/L Chloride 111 H (98-107) mmol/L Carbon Dioxide 20 L (22-30) mmol/L BUN 66 H (7-17) mg/dL Creatinine 3.05 H (0.52-1.04) mg/dL POC Glucose (mg/dL) (75-99) mg/dL Calcium 7.6 L (8.4-10.2) mg/dL AST 11 L (14-36) U/L Alkaline Phosphatase 253 H (38-126) U/L Assessment and Plan Plan: Assessment and plan #1 symptoms of progressively worsening shortness of breath, likely component of COPD exacerbation and congestive cardiac failure. Systolic acute on chronic. #2 hypertension #3 diabetes #4 hyperlipidemia #5 COPD #6 nicotine dependence #7 acute on chronic renal failure #8 chronic anemia likely secondary to renal failure Plan We will continue current dose of IV Lasix. Repeat chest x-ray tomorrow morning. DNP note has been reviewed, I agree with a documented findings and plan of care. Patient was seen and examined.
--- NOTE | 2018-07-22 12:36 | P.PN ---
Subjective Progress Note Date: 07/22/18 A 63-year-old female patient is coming in for increased shortness of breath. The patient's breathing got progressively worse over the past 3-4 days. The patient a positive cough that was initially nonproductive and later on she started bringing up some sputum. She denied having any fever or chills. She was feeling sick in general. No angina pain no pleurisy. No hemoptysis. She is known to have COPD. She has history of smoking and she quit smoking approximately 3 years ago. She also has history of runny kidney disease, hypertension, hyperlipidemia and diabetes mellitus. The patient came into the hospital. A chest x-ray was done that showed a right upper lobe pulmonary infiltrate consistent with pneumonia. The patient was started on broad- spectrum antibiotics. Also, the patient was found to have a normal white count and evidence of chronic renal failure with a creatinine of 2.2. Troponin was at 0.012 and an BNP level was at 3000. No exposure to sick contacts. No travel history. No bouts of recurrent pneumonias. Currently she is on Levaquin. His dose was given in the emergency department I am going to continue the dose at 250 mg on a daily basis. The patient is also on IV Solu- Medrol and DuoNeb about treatments around the clock regarding her acute COPD exacerbation secondary to right upper lobe pneumonia. Outpatient medications of been ordered resume. She is doing well. No mental status change. No headaches. No nausea or vomiting. No diarrhea. No abdominal pain. No other significant events otherwise for now. Cardiology is also on the case. Today's evaluation, the patient is feeling slightly better compared to yesterday. No fever chills or night sweats. The patient on Levaquin. The patient has a right upper lobe pulmonary infiltrates/pneumonia. Renal function stable with a mean of 66 and creatinine 3.05. No cultures are available for now. The patient is currently on [address] by nasal cannula. His saturations around 90%. A repeat chest x-ray will be obtained for tomorrow. Objective - Vital Signs Vital signs: Vital Signs Temp 97.9 F 07/22/18 08:00 Pulse 88 07/22/18 08:28 Resp 18 07/22/18 08:00 BP 134/97 07/22/18 08:00 Pulse Ox 98 07/22/18 08:00 Intake & Output 07/21/18 07/22/18 07/22/18 18:59 06:59 18:59 Intake Total 770 230 Balance 770 230 Weight 83.2 kg Intake: Intake, IV Titration 50 Amount Levofloxacin 250Mg-D5w 50 Pmx 250 mg In Dextrose/ Water 1 50ml.bag @ 50 mls /hr IVPB Q24H [facility] Rx#: [id number] Oral 720 230 Other: Voiding Method Toilet Toilet Toilet # Voids 1 1 2 - Exam Gen. appearance, comfortable likely distress Head exam was generally normal. There was no scleral icterus or corneal arcus. Mucous membranes were moist. Neck was supple and without jugular venous distension, thyromegaly, or carotid bruits. Carotids were easily palpable bilaterally. There was no adenopathy. Lungs sounds are diminished bilaterally and there is prolongation of the expiratory phase of breathing and scattered expiratory wheezes throughout the lung rascon. Cardiac exam revealed the PMI to be normally situated and sized. The rhythm was regular and no extrasystoles were noted during several minutes of auscultation. The first and second heart sounds were normal and physiologic splitting of the second heart sound was noted. There were no murmurs, rubs, clicks, or gallops. Abdominal exam revealed normal bowel sounds. The abdomen was soft, non-tender, and without masses, organomegaly, or appreciable enlargement of the abdominal aorta. Examination of the extremities revealed easily palpable radial, femoral and pedal pulses. There was no cyanosis, clubbing or edema. Examination of the skin revealed no evidence of significant rashes, suspicious appearing nevi or other concerning lesions. Neurologically awake and alert and there is no focal neurological deficit. - Labs CBC & Chem 7: 07/22/18 06:23 07/22/18 06:23 Labs: Abnormal Lab Results - Last 24 Hours (Table) 07/21/18 07/21/18 07/22/18 Range/Units 16:40 20:04 06:17 RBC (3.80-5.40) m/uL Hgb (11.4-16.0) gm/dL Hct (34.0-46.0) % MCV (80.0-100.0) fL Potassium (3.5-5.1) mmol/L Chloride (98-107) mmol/L Carbon Dioxide (22-30) mmol/L BUN (7-17) mg/dL Creatinine (0.52-1.04) mg/dL POC Glucose (mg/dL) 156 H 159 H 131 H (75-99) mg/dL Calcium (8.4-10.2) mg/dL AST (14-36) U/L Alkaline Phosphatase (38-126) U/L 07/22/18 07/22/18 07/22/18 Range/Units 06:23 06:23 11:44 RBC 2.78 L (3.80-5.40) m/uL Hgb 9.0 L (11.4-16.0) gm/dL Hct 28.1 L (34.0-46.0) % MCV 100.9 H (80.0-100.0) fL Potassium 5.3 H (3.5-5.1) mmol/L Chloride 111 H (98-107) mmol/L Carbon Dioxide 20 L (22-30) mmol/L BUN 66 H (7-17) mg/dL Creatinine 3.05 H (0.52-1.04) mg/dL POC Glucose (mg/dL) 144 H (75-99) mg/dL Calcium 7.6 L (8.4-10.2) mg/dL AST 11 L (14-36) U/L Alkaline Phosphatase 253 H (38-126) U/L Assessment and Plan Plan: Assessment 1 acute right upper lobe pneumonia 2 acute COPD exacerbation secondary to underlying right upper lobe pneumonia. 3 acute hypoxic respiratory failure secondary to above, currently on 42 of oxygen nasal cannula 4 I Diabetes mellitus type II 5 hyperlipidemia 6 chronic kidney failure. The patient has stage IV chronic kidney disease 7 peripheral neuropathy 8. Seizure disorder 9 previous history of fracture of the posterior ninth and 60 mg along with mild pleural thickening on the right side 10 chronic congestion heart failure with systolic heart failure and ejection fraction of 3035% in addition to mild anteroseptal and inferoseptal LV wall motion abnormalities. No significant valvular regurgitation or disruption. No significant pulmonary hypertension. Plan Obtain a sputum Gram stain and culture. Obtain blood culture. Check a Legionella urine antigen. Proceed with DuoNeb nebulized treatments around the clock. Add Pulmicort Respules and at Perforomist nebulized treatments twice a day. Continue Levaquin and goes up to 50 mg IV every 24 hours. Continue IV Solu-Medrol. Obtain a follow-up chest x-ray in the morning. Clinically stable. Renal function stable. Echocardiogram showed an impaired LV function and there is moderate systolic heart failure with an ejection fraction of 3035% and there is no significant valvular disruption abnormalities. We'll tapered IV Solu-Medrol.
--- NOTE | 2018-07-22 12:47 | P.NPCON ---
History of Present Illness - Reason for Consult acute renal failure, chronic renal failure - History of Present Illness Reason for consultation: Acute kidney injury on chronic kidney disease History of present illness: Patient is a 63-year-old female seen in renal consultation for acute kidney injury on chronic kidney disease. Patient has chronic kidney disease stage IV with baseline creatinine near 2.5 secondary to diabetic kidney disease. Patient presented to the hospital with dyspnea. She does have vascular congestion noted on chest x-ray. She has a history of systolic CHF with ejection fraction of 30-35%. Denies edema in the lower extremity is. She is currently maintained on Lasix 40 mg IV twice daily. Admits to good urine output. No hematuria or dysuria. No vomiting or diarrhea. Denies chest pain. Hemodynamically stable. She is afebrile. No abdominal pain. Does admit to a productive cough with clear sputum. Vital signs are stable. General: The patient appeared well nourished and normally developed. HEENT: Head exam is unremarkable. Neck is without jugular venous distension. LUNGS: Lungs are clear to auscultation and percussion. Breath sounds decreased. HEART: Rate and Rhythm are regular. First and second heart sounds normal. No murmurs, rubs or gallops. ABDOMEN: Abdominal exam reveals normal bowel sounds. Non-tender and non- distended. No evidence of peritonitis. EXTREMITITES: No clubbing, cyanosis, or edema. Past Medical History Past Medical History: COPD, Diabetes Mellitus, Hyperlipidemia, Hypertension, Seizure Disorder History of Any Multi-Drug Resistant Organisms: None Reported Past Surgical History: Hysterectomy Additional Past Surgical History / Comment(s): ESWL Past Anesthesia/Blood Transfusion Reactions: No Reported Reaction Past Psychological History: Anxiety, Bipolar, Depression Smoking Status: Former smoker Past Alcohol Use History: None Reported Past Drug Use History: Marijuana, Prescription Drug Abuse - Past Family History Mother Family Medical History: Diabetes Mellitus, Hypertension Father Family Medical History: Hypertension Medications and Allergies Home Medications Medication Instructions Recorded Confirmed Type Phenytoin Sodium Extended 100 mg PO TID 11/29/15 07/20/18 History [Dilantin] Sertraline [Zoloft] 200 mg PO DAILY 11/29/15 07/20/18 History Folic Acid 1 mg PO DAILY 07/22/17 07/20/18 History QUEtiapine FUMARATE 150 mg PO HS@[id number]/22/17 07/20/18 History Gemfibrozil [Lopid] 1,200 mg PO HS 09/05/17 07/20/18 History Montelukast [Singulair] 10 mg PO HS #30 tab 12/26/17 07/20/18 Rx Sodium Bicarbonate Tab 1,300 mg PO BID #60 tab 02/23/18 07/20/18 Rx Bisoprolol-Hctz 5-6.25 mg [Ziac 1 tab PO DAILY 07/20/18 07/20/18 History 5-6.25] Calcitriol 0.5 mcg PO MOWEFR 07/20/18 07/20/18 History Cyclobenzaprine [Flexeril] 5 mg PO BID PRN 07/20/18 07/20/18 History Omeprazole [PriLOSEC] 20 mg PO DAILY 07/20/18 07/20/18 History Primidone [Mysoline] 50 mg PO BID 07/20/18 07/20/18 History Allergies Allergy/AdvReac Type Severity Reaction Status Date / Time Penicillins Allergy Mild Swelling Verified 07/20/18 23:00 Physical Exam Vitals: Vital Signs Temp Pulse Pulse Pulse Resp BP Pulse Ox 07/22/18 08:28 88 07/22/18 08:16 80 07/22/18 08:15 80 07/22/18 08:05 80 07/22/18 08:00 97.9 F 90 89 18 134/97 98 07/22/18 04:00 98 F 90 18 137/75 96 07/22/18 03:03 89 18 07/21/18 23:28 89 18 153/87 95 07/21/18 20:00 98.6 F 85 18 152/92 96 07/21/18 19:51 84 07/21/18 19:41 83 93 L 07/21/18 16:00 98.5 F 84 18 129/86 95 Intake and Output 07/21/18 07/22/18 07/22/18 22:59 06:59 14:59 Intake Total 530 230 Balance 530 230 Intake: Intake, IV Titration 50 Amount Levofloxacin 250Mg-D5w 50 Pmx 250 mg In Dextrose/ Water 1 50ml.bag @ 50 mls /hr IVPB Q24H [facility] Rx#: [id number] Oral 480 230 Other: Voiding Method Toilet Toilet Toilet # Voids 1 1 2 Weight 83.2 kg Results - Lab Results Most recent lab results Calcium 7.6 mg/dL (8.4-10.2) L 07/22/18 06:23 07/22/18 06:23 07/22/18 06:23 Assessment and Plan Plan: Assessment: 1. Acute kidney injury mostly prerenal secondary to diuresis. Creatinine 3.05 today. 2. Volume overload. Improving with diuresis. 3. Systolic CHF with ejection fraction of 30-35%. 4. Chronic kidney disease stage IV secondary to diabetic kidney disease with baseline creatinine near 2.5. 5. Metabolic acidosis secondary to acute kidney injury. 6. Mild hyperkalemia secondary to acute kidney injury and metabolic acidosis. 7. Diabetes mellitus. 8. Anemia of chronic kidney disease. Rule out iron deficiency. 9. Chronic kidney disease mineral bone disease maintained on calcitriol. 10. Dyspnea which is multifactorial in nature. Etiologies include volume overload as well as COPD exacerbation. Plan: Maintain Lasix 40 mg IV twice daily for now. Check iron studies. Add Aranesp. Maintain oral sodium bicarbonate. Repeat electrolytes in the morning. Thank you for the consultation. I will continue to follow the patient with you during her hospital stay.
--- NOTE | 2018-07-22 13:25 | XR ---
EXAMINATION TYPE: XR chest 2V DATE OF EXAM: 07/22/2018 COMPARISON: Chest x-ray from 2 days ago and older studies. CT chest December 22, 2017. HISTORY: Abnormal x-ray, CHF follow-up. TECHNIQUE: Frontal and lateral views of the chest are obtained. FINDINGS: On current study overlying EKG leads are present including right-sided lead overlying the area of more focal opacity on most recent x-ray. There is redemonstration of elevated and eventrated anterior aspect right hemidiaphragm with associated right basilar linear scarring and/or atelectasis. There is background chronic emphysematous change. Left lung remains clear. No pleural effusion or pn eumothorax is seen bilaterally. The cardiac silhouette size is stable and upper limits of normal. The re is persistent lateral right mid to lower lung opacity on current study. CT shows evidence of prior mid lung posterior lateral rib fractures near this level with adjacent pleural thickening. More foca l opacity is obscured by overlying EKG leads on current study. IMPRESSION: Chronic emphysematous change with lateral mid to lower lung opacity favoring pleural thi ckening adjacent to healing/healed rib fractures. Area of more focal opacity right upper lung is more obscured on current study due to overlying EKG leads. No new infiltrate is seen.
--- NOTE | 2018-07-22 13:35 | P.PN ---
Subjective Brie is a 63 y/o WF with a H/o COPD. She c/o using her inhaler for SOB and cough for the past few days without it helping. She came into the ER and was evaluated. CXR show ? infiltrate, and CHF, BMP 3000. She si now being evaluated for further tx. She denies any Chest pain, nausea, vomitting, diarrhea or constipation. 07/22/2018: Patient is feeling improved. Pulmonology's started her on inhaled corticosteroids and she remains on Levaquin and IV steroids. Nephrology has evaluated her as well. The recommendations were noted. Brie herself denies any chest pains pressures, nausea or vomiting, or shortness of breath at rest. She has her oxygen on 4 L/m via nasal cannula. She denies a bowel movement since arriving. Objective - Vital Signs Vital signs: Vital Signs Temp 98.2 F 07/22/18 12:00 Pulse 89 07/22/18 12:00 Resp 18 07/22/18 12:00 BP 138/88 07/22/18 12:00 Pulse Ox 95 07/22/18 12:00 Intake & Output 07/21/18 07/22/18 07/22/18 18:59 06:59 18:59 Intake Total 770 230 Balance 770 230 Weight 83.2 kg Intake: Intake, IV Titration 50 Amount Levofloxacin 250Mg-D5w 50 Pmx 250 mg In Dextrose/ Water 1 50ml.bag @ 50 mls /hr IVPB Q24H [facility] Rx#: [id number] Oral 720 230 Other: Voiding Method Toilet Toilet Toilet # Voids 1 1 2 - Exam General: The patient is awake and alert, in Minimalo distress, and Currently has nasal cannula oxygen at 4 L/m Neck: The neck is supple, there is no thyromegaly, lymphadenopathy, tenderness or JVD. Cardiovascular: S1S2 is normal, There is a regular rate and rhythm. No murmur, rub or gallop is appreciated. Respiratory: Lungs are Diminished bilaterally with inspiratory and expiratory wheeze and rhonchi greater on the right and left Gastrointestinal: Soft, -distended Due to truncal obesity, non-tender abdomen without masses or organomegaly noted. There is no rebound or guarding present. Bowel sounds are unremarkable. Musculoskeletal: Normal ROM, no tenderness, There is no pedal edema. There is no calf tenderness or swelling. No cords were appreciated. Neurological: CN II-XII intact, there are no obvious motor or sensory deficits. Coordination appears grossly intact. Speech is normal. Skin: Skin is warm and dry and no rashes or lesions are noted. - Labs CBC & Chem 7: 07/22/18 06:23 07/22/18 06:23 Labs: Abnormal Lab Results - Last 24 Hours (Table) 07/21/18 07/21/18 07/22/18 Range/Units 16:40 20:04 06:17 RBC (3.80-5.40) m/uL Hgb (11.4-16.0) gm/dL Hct (34.0-46.0) % MCV (80.0-100.0) fL Potassium (3.5-5.1) mmol/L Chloride (98-107) mmol/L Carbon Dioxide (22-30) mmol/L BUN (7-17) mg/dL Creatinine (0.52-1.04) mg/dL POC Glucose (mg/dL) 156 H 159 H 131 H (75-99) mg/dL Calcium (8.4-10.2) mg/dL AST (14-36) U/L Alkaline Phosphatase (38-126) U/L 07/22/18 07/22/18 07/22/18 Range/Units 06:23 06:23 11:44 RBC 2.78 L (3.80-5.40) m/uL Hgb 9.0 L (11.4-16.0) gm/dL Hct 28.1 L (34.0-46.0) % MCV 100.9 H (80.0-100.0) fL Potassium 5.3 H (3.5-5.1) mmol/L Chloride 111 H (98-107) mmol/L Carbon Dioxide 20 L (22-30) mmol/L BUN 66 H (7-17) mg/dL Creatinine 3.05 H (0.52-1.04) mg/dL POC Glucose (mg/dL) 144 H (75-99) mg/dL Calcium 7.6 L (8.4-10.2) mg/dL AST 11 L (14-36) U/L Alkaline Phosphatase 253 H (38-126) U/L Assessment and Plan (1) Iron deficiency anemia Current Visit: Yes Status: Acute Code(s): D50.9 - IRON DEFICIENCY ANEMIA, UNSPECIFIED SNOMED Code(s): 03616005 (2) COPD exacerbation Current Visit: Yes Status: Acute Code(s): J44.1 - CHRONIC OBSTRUCTIVE PULMONARY DISEASE W (ACUTE) EXACERBATION SNOMED Code(s): 335140263 (3) Acute renal failure Current Visit: No Status: Acute Code(s): N17.9 - ACUTE KIDNEY FAILURE, UNSPECIFIED SNOMED Code(s): 07248524 (4) Acute respiratory failure Current Visit: No Status: Acute Code(s): J96.00 - ACUTE RESPIRATORY FAILURE , UNSP W HYPOXIA OR HYPERCAPNIA SNOMED Code(s): 91270603 (5) Chronic renal disease, stage 4, severely decreased glomerular filtration rate (GFR) between 15-29 mL/min/1.73 square meter Current Visit: No Status: Acute Code(s): N18.4 - CHRONIC KIDNEY DISEASE, STAGE 4 (SEVERE) SNOMED Code(s): 965826775 (6) Diabetes Current Visit: No Status: Acute Code(s): E11.9 - TYPE 2 DIABETES MELLITUS WITHOUT COMPLICATIONS SNOMED Code(s): 64454242 (7) Pneumonia Current Visit: No Status: Acute Code(s): J18.9 - PNEUMONIA, UNSPECIFIED ORGANISM SNOMED Code(s): 003669121 (8) Acute kidney failure Current Visit: Yes Status: Acute Code(s): N17.9 - ACUTE KIDNEY FAILURE, UNSPECIFIED SNOMED Code(s): 15128836 (9) Systolic congestive heart failure Current Visit: Yes Status: Acute Code(s): I50.20 - UNSPECIFIED SYSTOLIC ( CONGESTIVE) HEART FAILURE SNOMED Code(s): 091115875 Plan: Without further recommendations from consultants. Continue SQ heparin for DVT prophylaxis Repeat labs in a.m. She'll continue on IV Lasix, Solu-Medrol, updrafts, , and Levaquin f/u in the next 24 hrs
[2018-07-22] MEDS: hydrALAZINE HCL 25 MG TAB PO SCH ×2 (15:38→21:14)
[2018-07-22] MEDS: POLYETHYLENE GLYCOL 3350 17 GM POWD.PACK PO SCH (15:39)
[2018-07-22] MEDS: ISOSORBIDE MONONITRATE ER 60 MG TAB.ER.24H PO SCH (15:42)
[2018-07-22] MEDS: HYDROcodone/APAP 5-325MG 1 EACH TAB PO PRN ×2 (15:45→21:14)
[2018-07-22 17:22] LABS: Glucose,Whole Blood 133 mg/dL (75-99)
[2018-07-22] MEDS: BUDESONIDE 0.5 MG/2 ML NEBU INHALATION SCH (19:47)
[2018-07-22 21:09] LABS: Glucose,Whole Blood 101 mg/dL (75-99)
[2018-07-22] MEDS: methylPREDNISolone SOD SUCCI 40 MG/ML 1 ML VIAL IV SCH (21:13)
[2018-07-22] MEDS: QUEtiapine 50 MG TAB PO SCH (21:14)
[2018-07-22] MEDS: MONTELUKAST 10 MG TAB PO SCH (21:15)
[2018-07-23] MEDS: HYDROcodone/APAP 5-325MG 1 EACH TAB PO PRN ×3 (02:25→17:38)
[2018-07-23 05:37] LABS: Glucose,Whole Blood 100 mg/dL (75-99)
[2018-07-23] MEDS: INSULIN ASPART (NovoLOG) 100 UNIT/ML VIAL SQ SCH ×4 (05:38→22:17)
[2018-07-23] MEDS: PANTOPRAZOLE 40 MG TABLET PO SCH (06:06)
[2018-07-23 06:55] LABS: Calcium 6.9 mg/dL (8.4-10.2); Magnesium 1.6 mg/dL (1.6-2.3); Potassium 5.4 mmol/L (3.5-5.1)
[2018-07-23] MEDS: IPRATROPIUM-ALBUTEROL 3 ML NEB INHALATION PRN ×4 (08:35→20:14)
[2018-07-23] MEDS: BUDESONIDE 0.5 MG/2 ML NEBU INHALATION SCH ×2 (08:35→20:14)
[2018-07-23] MEDS: FORMOTEROL FUMARATE 20 MCG/2 ML NEBU INHALATION SCH ×2 (08:35→20:14)
[2018-07-23] MEDS: ISOSORBIDE MONONITRATE ER 60 MG TAB.ER.24H PO SCH (09:50)
[2018-07-23] MEDS: SERTRALINE 100 MG TAB PO SCH (09:50)
[2018-07-23] MEDS: PHENYTOIN SODIUM EXTENDED 100 MG CAP PO SCH ×3 (09:50→22:17)
[2018-07-23] MEDS: METOPROLOL SUCCINATE (ER) 25 MG TAB.ER.24H PO SCH (09:50)
[2018-07-23] MEDS: FOLIC ACID 1 MG TAB PO SCH (09:50)
[2018-07-23] MEDS: SODIUM BICARBONATE TAB 650 MG TAB PO SCH ×2 (09:51→20:05)
[2018-07-23] MEDS: hydrALAZINE HCL 25 MG TAB PO SCH ×3 (09:51→22:16)
[2018-07-23] MEDS: HEPARIN SODIUM,PORCINE 5,000 UNIT/ML 1 ML VIAL SQ SCH ×2 (09:52→17:38)
[2018-07-23] MEDS: LEVOFLOXACIN 250 MG TAB PO SCH (09:52)
[2018-07-23] MEDS: FUROSEMIDE 10 MG/ML 4 ML VIAL IV SCH (09:52)
[2018-07-23] MEDS: PRIMIDONE 50 MG TAB PO SCH ×2 (09:52→20:05)
[2018-07-23] MEDS: methylPREDNISolone SOD SUCCI 40 MG/ML 1 ML VIAL IV SCH ×2 (09:52→20:05)
[2018-07-23 11:20] LABS: Glucose,Whole Blood 124 mg/dL (75-99)
--- NOTE | 2018-07-23 12:21 | P.PN ---
Subjective Patient is seen in follow-up for acute kidney injury on chronic kidney disease. Patient has chronic kidney disease stage IV with baseline creatinine near 2.5 secondary to diabetic kidney disease. Her dyspnea is improved. She does of systolic CHF with ejection fraction of 30-35%. She is maintained on Lasix 40 mg IV twice daily. Creatinine up to 3.42 today. Good urine output. Hemodynamically stable. Vital signs are stable. General: The patient appeared well nourished and normally developed. HEENT: Head exam is unremarkable. Neck is without jugular venous distension. LUNGS: Lungs are clear to auscultation and percussion. Breath sounds decreased. HEART: Rate and Rhythm are regular. First and second heart sounds normal. No murmurs, rubs or gallops. ABDOMEN: Abdominal exam reveals normal bowel sounds. Non-tender and non- distended. No evidence of peritonitis. EXTREMITITES: No clubbing, cyanosis, or edema. Objective - Vital Signs Vital signs: Vital Signs Temp 98 F 07/23/18 03:19 Pulse 88 07/23/18 12:17 Resp 20 07/23/18 08:00 BP 147/74 07/23/18 08:00 Pulse Ox 99 07/23/18 08:00 Intake & Output 07/22/18 07/23/18 07/23/18 18:59 06:59 18:59 Intake Total 460 710 180 Output Total 1 Balance 460 710 179 Weight 82.9 kg Intake: Oral 460 710 180 Output: Urine 1 Other: Voiding Method Toilet Toilet # Voids 1 1 - Labs CBC & Chem 7: 07/22/18 06:23 07/23/18 06:00 Labs: Abnormal Lab Results - Last 24 Hours (Table) 07/22/18 07/22/18 07/23/18 Range/Units 16:54 21:02 05:34 Potassium (3.5-5.1) mmol/L Chloride (98-107) mmol/L Carbon Dioxide (22-30) mmol/L BUN (7-17) mg/dL Creatinine (0.52-1.04) mg/dL POC Glucose (mg/dL) 133 H 101 H 100 H (75-99) mg/dL Calcium (8.4-10.2) mg/dL 07/23/18 07/23/18 Range/Units 06:00 11:17 Potassium 5.4 H (3.5-5.1) mmol/L Chloride 110 H (98-107) mmol/L Carbon Dioxide 21 L (22-30) mmol/L BUN 78 H (7-17) mg/dL Creatinine 3.42 H (0.52-1.04) mg/dL POC Glucose (mg/dL) 124 H (75-99) mg/dL Calcium 6.9 L (8.4-10.2) mg/dL Assessment and Plan Plan: Assessment: 1. Acute kidney injury mostly prerenal secondary to diuresis. Creatinine 3.42 today. 2. Volume overload. Improved with diuresis. 3. Systolic CHF with ejection fraction of 30-35%. 4. Chronic kidney disease stage IV secondary to diabetic kidney disease with baseline creatinine near 2.5. 5. Metabolic acidosis secondary to acute kidney injury. Better. 6. Mild hyperkalemia secondary to acute kidney injury and metabolic acidosis. Stable. 7. Diabetes mellitus. 8. Anemia of chronic kidney disease. Maintained on Aranesp. Iron replete. 9. Chronic kidney disease mineral bone disease maintained on calcitriol. 10. Dyspnea which is multifactorial in nature. Etiologies include volume overload as well as COPD exacerbation. 11. Hypomagnesemia secondary to diuresis. Plan: Decrease Lasix to 40 mg orally once daily. Maintain oral sodium bicarbonate. Replace magnesium. 2 g IV today. Repeat electrolytes in the morning. Low potassium diet.
--- NOTE | 2018-07-23 12:51 | P.PN ---
Subjective Brie is a 63 y/o WF with a H/o COPD. She c/o using her inhaler for SOB and cough for the past few days without it helping. She came into the ER and was evaluated. CXR show ? infiltrate, and CHF, BMP 3000. She si now being evaluated for further tx. She denies any Chest pain, nausea, vomitting, diarrhea or constipation. 07/22/2018: Patient is feeling improved. Pulmonology's started her on inhaled corticosteroids and she remains on Levaquin and IV steroids. Nephrology has evaluated her as well. The recommendations were noted. Brie herself denies any chest pains pressures, nausea or vomiting, or shortness of breath at rest. She has her oxygen on 4 L/m via nasal cannula. She denies a bowel movement since arriving. 07/23/2018: Patient feels better. She is sitting beside the bed. She remains on inhaled corticosteroids, Levaquin, and IV steroids. She complains of his shakiness with her updrafts. She has oxygen 4 L/m nasal cannula. She uses this at home as well. She reports her home oxygen company is gone out of business. We discussed her using heart medical. She denies any chest pains, pressures, shortness breath at rest, nausea or vomiting. She did have a bowel movement after being given MiraLAX today. Objective - Vital Signs Vital signs: Vital Signs Temp 98 F 07/23/18 03:19 Pulse 88 07/23/18 12:17 Resp 20 07/23/18 08:00 BP 147/74 07/23/18 08:00 Pulse Ox 99 07/23/18 08:00 Intake & Output 07/22/18 07/23/18 07/23/18 18:59 06:59 18:59 Intake Total 460 710 180 Output Total 1 Balance 460 710 179 Weight 82.9 kg Intake: Oral 460 710 180 Output: Urine 1 Other: Voiding Method Toilet Toilet # Voids 1 1 - Exam General: The patient is awake and alert, in Minimalo distress, and Currently has nasal cannula oxygen at 4 L/m Neck: The neck is supple, there is no thyromegaly, lymphadenopathy, tenderness or JVD. Cardiovascular: S1S2 is normal, There is a regular rate and rhythm. No murmur, rub or gallop is appreciated. Respiratory: Lungs are minimallyDiminished bilaterally with inspiratory and expiratory wheeze and rhonchi greater on the right and left. These lung sounds are improved Gastrointestinal: Soft, -distended Due to truncal obesity, non-tender abdomen without masses or organomegaly noted. There is no rebound or guarding present. Bowel sounds are unremarkable. Musculoskeletal: Normal ROM, no tenderness, There is no pedal edema. There is no calf tenderness or swelling. No cords were appreciated. Neurological: CN II-XII intact, there are no obvious motor or sensory deficits. Coordination appears grossly intact. Speech is normal. Skin: Skin is warm and dry and no rashes or lesions are noted. - Labs CBC & Chem 7: 07/22/18 06:23 07/23/18 06:00 Labs: Abnormal Lab Results - Last 24 Hours (Table) 07/22/18 07/22/18 07/23/18 Range/Units 16:54 21:02 05:34 Potassium (3.5-5.1) mmol/L Chloride (98-107) mmol/L Carbon Dioxide (22-30) mmol/L BUN (7-17) mg/dL Creatinine (0.52-1.04) mg/dL POC Glucose (mg/dL) 133 H 101 H 100 H (75-99) mg/dL Calcium (8.4-10.2) mg/dL 07/23/18 07/23/18 Range/Units 06:00 11:17 Potassium 5.4 H (3.5-5.1) mmol/L Chloride 110 H (98-107) mmol/L Carbon Dioxide 21 L (22-30) mmol/L BUN 78 H (7-17) mg/dL Creatinine 3.42 H (0.52-1.04) mg/dL POC Glucose (mg/dL) 124 H (75-99) mg/dL Calcium 6.9 L (8.4-10.2) mg/dL Assessment and Plan (1) Iron deficiency anemia Current Visit: Yes Status: Acute Code(s): D50.9 - IRON DEFICIENCY ANEMIA, UNSPECIFIED SNOMED Code(s): 28395677 (2) COPD exacerbation Current Visit: Yes Status: Acute Code(s): J44.1 - CHRONIC OBSTRUCTIVE PULMONARY DISEASE W (ACUTE) EXACERBATION SNOMED Code(s): 203177460 (3) Acute renal failure Current Visit: No Status: Acute Code(s): N17.9 - ACUTE KIDNEY FAILURE, UNSPECIFIED SNOMED Code(s): 20270006 (4) Acute respiratory failure Current Visit: No Status: Acute Code(s): J96.00 - ACUTE RESPIRATORY FAILURE , UNSP W HYPOXIA OR HYPERCAPNIA SNOMED Code(s): 17939807 (5) Chronic renal disease, stage 4, severely decreased glomerular filtration rate (GFR) between 15-29 mL/min/1.73 square meter Current Visit: No Status: Acute Code(s): N18.4 - CHRONIC KIDNEY DISEASE, STAGE 4 (SEVERE) SNOMED Code(s): 711096365 (6) Diabetes Current Visit: No Status: Acute Code(s): E11.9 - TYPE 2 DIABETES MELLITUS WITHOUT COMPLICATIONS SNOMED Code(s): 57946365 (7) Pneumonia Current Visit: No Status: Acute Code(s): J18.9 - PNEUMONIA, UNSPECIFIED ORGANISM SNOMED Code(s): 578517502 (8) Acute kidney failure Current Visit: Yes Status: Acute Code(s): N17.9 - ACUTE KIDNEY FAILURE, UNSPECIFIED SNOMED Code(s): 93153046 (9) Systolic congestive heart failure Current Visit: Yes Status: Acute Code(s): I50.20 - UNSPECIFIED SYSTOLIC ( CONGESTIVE) HEART FAILURE SNOMED Code(s): 113189099 Plan: continue subcutaneous heparin for DVT prophylaxis. Repeat labs in a.m. She'll continue on IV Lasix, Solu-Medrol, updrafts, , and Levaquin she'll continue on her psychiatric medications as prescribed. f/u in the next 24 hrs
[2018-07-23] MEDS: POLYETHYLENE GLYCOL 3350 17 GM POWD.PACK PO SCH (13:04)
[2018-07-23] MEDS: MAGNESIUM SULFATE-D5W PMX 1 GM in DEXTROSE/WATER 1 100ML.BAG IVPB SCH ×2 (13:04→14:00)
[2018-07-23] MEDS: CYCLOBENZAPRINE 5 MG TAB PO PRN (13:58)
[2018-07-23] MEDS: CALCITRIOL 0.25 MCG CAP PO SCH (13:58)
--- NOTE | 2018-07-23 15:54 | P.PN ---
Subjective Progress Note Date: 07/23/18 This is a pleasant 63-year-old female with past medical history of a chronic kidney disease, diabetes, hypertension, hyperlipidemia, COPD, prior history of smoking for which the patient states that she quit approximately 3 years ago. Patient presented to the hospital on this occasion with symptoms of progressively worsening shortness of breath over a 3-4 day duration. She has been using her inhaler which did not seem to give her any relief. Positive cough, nonproductive. He denies any fever or chills. Chest x-ray on admission showed congestive heart failure with right upper lobe infiltrate versus mass. Her EKG shows a normal sinus rhythm with a left bundle-branch block pattern. Upon review of prior EKGs, patient has been noted to have a left bundle-branch block pattern in the past. Blood pressure 144/90, heart rate in the 70s, afebrile. White blood cell count is normal, hemoglobin on admission 10.0, 8.6 this morning. Platelet count 205. Sodium 144, potassium 5.5, BUN 48 and creatinine 2.2. Ferritin level 45.8, iron saturation 27.7, vitamin D 16.4, troponin 0.012 and BNP 3000. Patient was given an oral dose of Lasix on admission here and started on by mouth Lasix. She does state that she is put out urine since her admission. She does not take any Lasix at home and has not been told in the past to have any history of congestive cardiac failure. At the time of my examination this morning, she sitting up at the side of the bed, breathing is overall stable. 07/22/2018 Patient was seen and examined this morning, her weight is down 3 kg today. Blood pressure 134/90 with a heart rate in the 90s, 98% on 4 L. White blood cell count 5.1, hemoglobin 9, platelet count 225. Sodium 144, potassium 5.3, BUN 66 and creatinine 3.05. Patient does feel that her breathing is somewhat improved overall today. We will repeat a chest x-ray tomorrow morning. Continue current dose of IV Lasix. 07/23/2018 Patient seen and examined this morning, she is overall feeling better today. Heart rate remains in the range of 104, we'll increase her dose of beta ulises today. Weight today is down 1 kg, she is currently on by mouth Lasix. Objective - Vital Signs Vital signs: Vital Signs Temp 97.5 F L 07/23/18 12:00 Pulse 88 07/23/18 12:17 Resp 20 07/23/18 12:00 BP 145/87 07/23/18 12:00 Pulse Ox 96 07/23/18 12:00 Intake & Output 07/22/18 07/23/18 07/23/18 18:59 06:59 18:59 Intake Total 460 710 300 Output Total 1 Balance 460 710 299 Weight 82.9 kg Intake: Oral 460 710 300 Output: Urine 1 Other: Voiding Method Toilet Toilet # Voids 1 1 - Exam PHYSICAL EXAMINATION: GENERAL: 63-year-old female in no acute distress at the time of my examination HEENT: Head is atraumatic, normocephalic. Pupils equal, round. Sclera anicteric. Conjunctiva are clear. Mucous membranes of the mouth are moist. Neck is supple. There is no elevated jugular venous pressure. No carotid bruit is heard. HEART EXAMINATION: Heart S1, S2 normal. No murmur or gallop heard. CHEST EXAMINATION: Lungs reveal diminished air entry to bilateral bases. ABDOMEN: Soft, nontender. Bowel sounds are heard. No organomegaly noted. EXTREMITIES: 2+ peripheral pulses with trace evidence of peripheral edema and no calf tenderness noted. NEUROLOGIC patient is awake, alert and oriented 3 . - Labs CBC & Chem 7: 07/22/18 06:23 07/23/18 06:00 Labs: Abnormal Lab Results - Last 24 Hours (Table) 07/22/18 07/22/18 07/23/18 Range/Units 16:54 21:02 05:34 Potassium (3.5-5.1) mmol/L Chloride (98-107) mmol/L Carbon Dioxide (22-30) mmol/L BUN (7-17) mg/dL Creatinine (0.52-1.04) mg/dL POC Glucose (mg/dL) 133 H 101 H 100 H (75-99) mg/dL Calcium (8.4-10.2) mg/dL 07/23/18 07/23/18 Range/Units 06:00 11:17 Potassium 5.4 H (3.5-5.1) mmol/L Chloride 110 H (98-107) mmol/L Carbon Dioxide 21 L (22-30) mmol/L BUN 78 H (7-17) mg/dL Creatinine 3.42 H (0.52-1.04) mg/dL POC Glucose (mg/dL) 124 H (75-99) mg/dL Calcium 6.9 L (8.4-10.2) mg/dL Assessment and Plan Plan: Assessment and plan #1 symptoms of progressively worsening shortness of breath, likely component of COPD exacerbation and congestive cardiac failure. Systolic acute on chronic. #2 hypertension #3 diabetes #4 hyperlipidemia #5 COPD #6 nicotine dependence #7 acute on chronic renal failure #8 chronic anemia likely secondary to renal failure Plan Patient is now on 40 mg of Lasix daily, we'll increase her dose of beta ulises to 50 mg daily today. Hooker continue to monitor heart rate. DNP note has been reviewed, I agree with a documented findings and plan of care. Patient was seen and examined.
[2018-07-23 16:42] LABS: Glucose,Whole Blood 95 mg/dL (75-99)
--- NOTE | 2018-07-23 17:46 | P.PN ---
Subjective Progress Note Date: 07/23/18 Principal diagnosis: Acute right upper lobe pneumonia, acute COPD exacerbation A 63-year-old female patient is coming in for increased shortness of breath. The patient's breathing got progressively worse over the past 3-4 days. The patient a positive cough that was initially nonproductive and later on she started bringing up some sputum. She denied having any fever or chills. She was feeling sick in general. No angina pain no pleurisy. No hemoptysis. She is known to have COPD. She has history of smoking and she quit smoking approximately 3 years ago. She also has history of runny kidney disease, hypertension, hyperlipidemia and diabetes mellitus. The patient came into the hospital. A chest x-ray was done that showed a right upper lobe pulmonary infiltrate consistent with pneumonia. The patient was started on broad- spectrum antibiotics. Also, the patient was found to have a normal white count and evidence of chronic renal failure with a creatinine of 2.2. Troponin was at 0.012 and an BNP level was at 3000. No exposure to sick contacts. No travel history. No bouts of recurrent pneumonias. Currently she is on Levaquin. His dose was given in the emergency department I am going to continue the dose at 250 mg on a daily basis. The patient is also on IV Solu- Medrol and DuoNeb about treatments around the clock regarding her acute COPD exacerbation secondary to right upper lobe pneumonia. Outpatient medications of been ordered resume. She is doing well. No mental status change. No headaches. No nausea or vomiting. No diarrhea. No abdominal pain. No other significant events otherwise for now. Cardiology is also on the case. Today's evaluation, the patient is feeling slightly better compared to yesterday. No fever chills or night sweats. The patient on Levaquin. The patient has a right upper lobe pulmonary infiltrates/pneumonia. Renal function stable with a mean of 66 and creatinine 3.05. No cultures are available for now. The patient is currently on [address] by nasal cannula. His saturations around 90%. A repeat chest x-ray will be obtained for tomorrow. On 07/23/2018 patient seen in follow-up. Patient is doing well, minimal wheezing on today's exam, no fever or chills, 96% on room air, vital signs are stable. Today's labs have been reviewed, shows sodium of 142, potassium is 5.4 , chloride is 110, CO2 is 21, BUN 78 and creatinine is 3.42. Complex of chest pain, no complaints of worsening shortness of breath or chest congestion. Nephrology is following, patient's renal status is relatively stable. She does have history of chronic kidney disease stage IV, and she does have a chronic systolic heart failure with EF of 30-35%. She has been transitioned to oral Lasix, oral antibiotics in the form of Levaquin, and she is on IV steroids, and nebulized bronchodilators. Clinically she is improving, anticipate discharge in next 24 hours. Objective - Vital Signs Vital signs: Vital Signs Temp 97.5 F L 07/23/18 12:00 Pulse 86 07/23/18 16:22 Resp 20 07/23/18 12:00 BP 145/87 07/23/18 12:00 Pulse Ox 96 07/23/18 12:00 Intake & Output 07/22/18 07/23/18 07/23/18 18:59 06:59 18:59 Intake Total 460 710 300 Output Total 1 Balance 460 710 299 Weight 82.9 kg Intake: Oral 460 710 300 Output: Urine 1 Other: Voiding Method Toilet Toilet # Voids 1 1 - Exam GENERAL EXAM: Alert, active, comfortable in no apparent distress. HEAD: Normocephalic/atraumatic. EYES: Normal reaction of pupils, equal size. Conjunctiva pink, sclera white. NOSE: Clear with pink turbinates. THROAT: No erythema or exudates. NECK: No masses, no JVD, no thyroid enlargement, no adenopathy. CHEST: No chest wall deformity. Symmetrical expansion. LUNGS: Equal air entry with minimal wheezes CVS: Regular rate and rhythm, normal S1 and S2, no gallops, no murmurs, no rubs ABDOMEN: Soft, nontender. No hepatosplenomegaly, normal bowel sounds, no guarding or rigidity. EXTREMITIES: No clubbing, no edema, no cyanosis, 2+ pulses and upper and lower extremities. MUSCULOSKELETAL: Muscle strength and tone normal. SPINE: No scoliosis or deformity SKIN: No rashes CENTRAL NERVOUS SYSTEM: Alert and oriented -3. No focal deficits, tone is normal in all 4 extremities. PSYCHIATRIC: Alert and oriented -3. Appropriate affect. Intact judgment and insight. - Labs CBC & Chem 7: 07/22/18 06:23 07/23/18 06:00 Labs: Abnormal Lab Results - Last 24 Hours (Table) 07/22/18 07/23/18 07/23/18 Range/Units 21:02 05:34 06:00 Potassium 5.4 H (3.5-5.1) mmol/L Chloride 110 H (98-107) mmol/L Carbon Dioxide 21 L (22-30) mmol/L BUN 78 H (7-17) mg/dL Creatinine 3.42 H (0.52-1.04) mg/dL POC Glucose (mg/dL) 101 H 100 H (75-99) mg/dL Calcium 6.9 L (8.4-10.2) mg/dL 07/23/18 Range/Units 11:17 Potassium (3.5-5.1) mmol/L Chloride (98-107) mmol/L Carbon Dioxide (22-30) mmol/L BUN (7-17) mg/dL Creatinine (0.52-1.04) mg/dL POC Glucose (mg/dL) 124 H (75-99) mg/dL Calcium (8.4-10.2) mg/dL Assessment and Plan Plan: Assessment: 1 acute right upper lobe pneumonia 2 acute COPD exacerbation secondary to underlying right upper lobe pneumonia. 3 acute hypoxic respiratory failure secondary to above, currently on 42 of oxygen nasal cannula 4 I Diabetes mellitus type II 5 hyperlipidemia 6 chronic kidney failure. The patient has stage IV chronic kidney disease 7 peripheral neuropathy 8. Seizure disorder 9 previous history of fracture of the posterior ninth and 60 mg along with mild pleural thickening on the right side 10 chronic congestion heart failure with systolic heart failure and ejection fraction of 3035% in addition to mild anteroseptal and inferoseptal LV wall motion abnormalities. No significant valvular regurgitation or disruption. No significant pulmonary hypertension. Plan: Continue current antibiotic coverage, send the Legionella urine antigen, sputum culture if able to collect, but clinically patient is starting to improve, no fever or chills, breathing easier, continue with Levaquin for antibiotic coverage, nebulized bronchodilators, nephrology and cardiology are managing the diuretics. We'll continue to follow I performed a history & physical examination of the patient and discussed their management with my nurse practitioner, Carol Chatman. I reviewed the nurse practitioner's note and agree with the documented findings and plan of care. Lung sounds are positive for diffuse wheezes throughout the lung rascon. The findings and the impression was discussed with the patient. I attest to the documentation by the nurse practitioner. Time with Patient: Less than 30
--- NOTE | 2018-07-23 19:08 | XR ---
EXAMINATION TYPE: XR chest 2V DATE OF EXAM: 07/23/2018 COMPARISON: Yesterday HISTORY: Pneumonia. Chest pain TECHNIQUE: Frontal and lateral views of the chest are obtained. FINDINGS: There is some patchy infiltrate and pleural thickening on the right lateral chest wall. Th ere is slight coarsening of interstitial markings. Heart size is normal. There is no heart failure. T here is no evidence of pleural effusion. IMPRESSION: Pleural and pulmonary scarring on the right side unchanged. Pulmonary fibrosis. Abnormal ity on the right side increased compared to old chest x-ray 09/05/2017.
[2018-07-23] MEDS ORDERED: HYDROmorphone 1 MG/ML 1 ML SYRINGE IVP STA (19:09)
[2018-07-23] MEDS: MONTELUKAST 10 MG TAB PO SCH (20:05)
[2018-07-23 21:09] LABS: Glucose,Whole Blood 143 mg/dL (75-99)
[2018-07-23] MEDS: QUEtiapine 50 MG TAB PO SCH (22:16)
[2018-07-24] MEDS: HEPARIN SODIUM,PORCINE 5,000 UNIT/ML 1 ML VIAL SQ SCH ×2 (00:12→08:30)
[2018-07-24] MEDS: CYCLOBENZAPRINE 5 MG TAB PO PRN ×2 (00:55→12:44)
[2018-07-24] MEDS: HYDROcodone/APAP 5-325MG 1 EACH TAB PO PRN ×2 (00:58→12:44)
[2018-07-24 06:20] LABS: Glucose,Whole Blood 105 mg/dL (75-99)
[2018-07-24] MEDS: INSULIN ASPART (NovoLOG) 100 UNIT/ML VIAL SQ SCH ×2 (06:22→12:40)
[2018-07-24 07:04] LABS: Calcium 6.8 mg/dL (8.4-10.2); Magnesium 2.2 mg/dL (1.6-2.3); Potassium 5.5 mmol/L (3.5-5.1)
[2018-07-24] MEDS ORDERED: INSULIN REGULAR 100 UNIT/ML VIAL SQ ONE (07:44)
[2018-07-24] MEDS ORDERED: DEXTROSE 50%-WATER 50 ML SYRINGE IVP STA (07:50)
[2018-07-24] MEDS: FORMOTEROL FUMARATE 20 MCG/2 ML NEBU INHALATION SCH (07:56)
[2018-07-24] MEDS: BUDESONIDE 0.5 MG/2 ML NEBU INHALATION SCH (07:56)
[2018-07-24] MEDS: IPRATROPIUM-ALBUTEROL 3 ML NEB INHALATION PRN ×2 (07:56→11:17)
[2018-07-24] MEDS: PANTOPRAZOLE 40 MG TABLET PO SCH (08:26)
[2018-07-24] MEDS: PHENYTOIN SODIUM EXTENDED 100 MG CAP PO SCH ×2 (08:26→15:59)
[2018-07-24] MEDS: FOLIC ACID 1 MG TAB PO SCH (08:26)
[2018-07-24] MEDS: PRIMIDONE 50 MG TAB PO SCH (08:27)
[2018-07-24] MEDS: hydrALAZINE HCL 25 MG TAB PO SCH ×2 (08:27→15:59)
[2018-07-24] MEDS: SODIUM BICARBONATE TAB 650 MG TAB PO SCH (08:27)
[2018-07-24] MEDS: ISOSORBIDE MONONITRATE ER 60 MG TAB.ER.24H PO SCH (08:27)
[2018-07-24] MEDS: SERTRALINE 100 MG TAB PO SCH (08:27)
[2018-07-24] MEDS: POLYETHYLENE GLYCOL 3350 17 GM POWD.PACK PO SCH (08:30)
[2018-07-24] MEDS: methylPREDNISolone SOD SUCCI 40 MG/ML 1 ML VIAL IV SCH (08:30)
[2018-07-24] MEDS: SODIUM BICARB 8.4% 50 ML SYR (1 MEQ/ML) IV SCH (08:33)
[2018-07-24] MEDS ORDERED: METOPROLOL SUCCINATE (ER) 50 MG TAB.ER.24H PO SCH (09:00)
[2018-07-24] MEDS ORDERED: FUROSEMIDE 40 MG TAB PO SCH (09:00)
[2018-07-24 11:44] VITALS: RESP 20
[2018-07-24 11:51] LABS: Glucose,Whole Blood 70 mg/dL (75-99)
[2018-07-24 11:51] LABS: Glucose,Whole Blood 64 mg/dL (75-99)
--- NOTE | 2018-07-24 11:57 | P.PN ---
Subjective Patient is seen in follow-up for acute kidney injury on chronic kidney disease. Patient has chronic kidney disease stage IV with baseline creatinine near 2.5 secondary to diabetic kidney disease. Her dyspnea is improved. She does of systolic CHF with ejection fraction of 30-35%. She is maintained on Lasix 40 mg orally once daily. Renal function stable. Good urine output. Hemodynamically stable. Vital signs are stable. General: The patient appeared well nourished and normally developed. HEENT: Head exam is unremarkable. Neck is without jugular venous distension. LUNGS: Lungs are clear to auscultation and percussion. Breath sounds decreased. HEART: Rate and Rhythm are regular. First and second heart sounds normal. No murmurs, rubs or gallops. ABDOMEN: Abdominal exam reveals normal bowel sounds. Non-tender and non- distended. No evidence of peritonitis. EXTREMITITES: No clubbing, cyanosis, or edema. Objective - Vital Signs Vital signs: Vital Signs Temp 97.9 F 07/24/18 04:39 Pulse 92 07/24/18 11:30 Resp 20 07/24/18 08:01 BP 129/72 07/24/18 08:01 Pulse Ox 97 07/24/18 08:01 Intake & Output 07/23/18 07/24/18 07/24/18 18:59 06:59 18:59 Intake Total 540 240 Output Total 1 200 Balance 539 -200 240 Weight 83 kg Intake: Oral 540 240 Output: Urine 1 200 Other: Voiding Method Toilet # Voids 1 1 - Labs CBC & Chem 7: 07/22/18 06:23 07/24/18 06:12 Labs: Abnormal Lab Results - Last 24 Hours (Table) 07/23/18 07/24/18 07/24/18 Range/Units 21:07 06:12 06:19 Potassium 5.5 H (3.5-5.1) mmol/L Carbon Dioxide 21 L (22-30) mmol/L BUN 83 H (7-17) mg/dL Creatinine 3.34 H (0.52-1.04) mg/dL POC Glucose (mg/dL) 143 H 105 H (75-99) mg/dL Calcium 6.8 L (8.4-10.2) mg/dL 07/24/18 07/24/18 Range/Units 11:32 11:45 Potassium (3.5-5.1) mmol/L Carbon Dioxide (22-30) mmol/L BUN (7-17) mg/dL Creatinine (0.52-1.04) mg/dL POC Glucose (mg/dL) 64 L 70 L (75-99) mg/dL Calcium (8.4-10.2) mg/dL Assessment and Plan Plan: Assessment: 1. Acute kidney injury mostly prerenal secondary to diuresis. Renal function stable. 2. Volume overload. Improved with diuresis. 3. Systolic CHF with ejection fraction of 30-35%. 4. Chronic kidney disease stage IV secondary to diabetic kidney disease with baseline creatinine near 2.5. 5. Metabolic acidosis secondary to acute kidney injury. Better. 6. Mild hyperkalemia secondary to acute kidney injury and metabolic acidosis. Stable. 7. Diabetes mellitus. 8. Anemia of chronic kidney disease. Maintained on Aranesp. Iron replete. 9. Chronic kidney disease mineral bone disease maintained on calcitriol. 10. Dyspnea which is multifactorial in nature. Etiologies include volume overload as well as COPD exacerbation. 11. Hypomagnesemia secondary to diuresis. Improved posterior placement. Plan: Hold Lasix today. S/p 10 units of IV insulin with an amp of D50 this morning. She also received 2 A of bicarb this AM. Maintain oral sodium bicarbonate. Repeat potassium level this afternoon. Low potassium diet.
[2018-07-24] MEDS: LEVOFLOXACIN 250 MG TAB PO SCH (12:44)
--- NOTE | 2018-07-24 13:25 | P.PN ---
Subjective Brie is a 63 y/o WF with a H/o COPD. She c/o using her inhaler for SOB and cough for the past few days without it helping. She came into the ER and was evaluated. CXR show ? infiltrate, and CHF, BMP 3000. She si now being evaluated for further tx. She denies any Chest pain, nausea, vomitting, diarrhea or constipation. 07/22/2018: Patient is feeling improved. Pulmonology's started her on inhaled corticosteroids and she remains on Levaquin and IV steroids. Nephrology has evaluated her as well. The recommendations were noted. Brie herself denies any chest pains pressures, nausea or vomiting, or shortness of breath at rest. She has her oxygen on 4 L/m via nasal cannula. She denies a bowel movement since arriving. 07/23/2018: Patient feels better. She is sitting beside the bed. She remains on inhaled corticosteroids, Levaquin, and IV steroids. She complains of his shakiness with her updrafts. She has oxygen 4 L/m nasal cannula. She uses this at home as well. She reports her home oxygen company is gone out of business. We discussed her using Xytis. She denies any chest pains, pressures, shortness breath at rest, nausea or vomiting. She did have a bowel movement after being given MiraLAX today. 07/24/2018: Patient is feel well. She remains on lasix, oxygen, inhaled corticosteroid, Levaquin, and IV steroids. She has hyperkalemia today. Nephrology regarding her some Lasix and other treatment.She also has systolic congestive heart failure with ejection fraction 30-35%. She denies any chest pains, pressures, shortness breath at rest, nausea or vomiting. Objective - Vital Signs Vital signs: Vital Signs Temp 97.9 F 07/24/18 04:39 Pulse 92 07/24/18 11:30 Resp 20 07/24/18 08:01 BP 129/72 07/24/18 08:01 Pulse Ox 97 07/24/18 08:01 Intake & Output 07/23/18 07/24/18 07/24/18 18:59 06:59 18:59 Intake Total 540 240 Output Total 1 200 Balance 539 -200 240 Weight 83 kg Intake: Oral 540 240 Output: Urine 1 200 Other: Voiding Method Toilet # Voids 1 1 - Exam General: The patient is awake and alert, in [place] distress, and Currently has nasal cannula oxygen at 4 L/m Neck: The neck is supple, there is no thyromegaly, lymphadenopathy, tenderness or JVD. Cardiovascular: S1S2 is normal, There is a regular rate and rhythm. No murmur, rub or gallop is appreciated. Respiratory: Lungs are minimallyDiminished bilaterally with inspiratory and expiratory wheeze and rhonchi greater on the right and left. These lung sounds are improved Gastrointestinal: Soft, -distended Due to truncal obesity, non-tender abdomen without masses or organomegaly noted. There is no rebound or guarding present. Bowel sounds are unremarkable. Musculoskeletal: Normal ROM, no tenderness, There is no pedal edema. There is no calf tenderness or swelling. No cords were appreciated. Neurological: CN II-XII intact, there are no obvious motor or sensory deficits. Coordination appears grossly intact. Speech is normal. Skin: Skin is warm and dry and no rashes or lesions are noted. - Labs CBC & Chem 7: 07/22/18 06:23 07/24/18 06:12 Labs: Abnormal Lab Results - Last 24 Hours (Table) 07/23/18 07/24/18 07/24/18 Range/Units 21:07 06:12 06:19 Potassium 5.5 H (3.5-5.1) mmol/L Carbon Dioxide 21 L (22-30) mmol/L BUN 83 H (7-17) mg/dL Creatinine 3.34 H (0.52-1.04) mg/dL POC Glucose (mg/dL) 143 H 105 H (75-99) mg/dL Calcium 6.8 L (8.4-10.2) mg/dL 07/24/18 07/24/18 Range/Units 11:32 11:45 Potassium (3.5-5.1) mmol/L Carbon Dioxide (22-30) mmol/L BUN (7-17) mg/dL Creatinine (0.52-1.04) mg/dL POC Glucose (mg/dL) 64 L 70 L (75-99) mg/dL Calcium (8.4-10.2) mg/dL Assessment and Plan (1) Systolic congestive heart failure Narrative/Plan: Acute on chronic Current Visit: Yes Status: Acute Code(s): I50.20 - UNSPECIFIED SYSTOLIC ( CONGESTIVE) HEART FAILURE SNOMED Code(s): 875994290 (2) COPD exacerbation Current Visit: Yes Status: Acute Code(s): J44.1 - CHRONIC OBSTRUCTIVE PULMONARY DISEASE W (ACUTE) EXACERBATION SNOMED Code(s): 286801259 (3) Acute renal failure Current Visit: No Status: Acute Code(s): N17.9 - ACUTE KIDNEY FAILURE, UNSPECIFIED SNOMED Code(s): 64309696 (4) Iron deficiency anemia Current Visit: Yes Status: Acute Code(s): D50.9 - IRON DEFICIENCY ANEMIA, UNSPECIFIED SNOMED Code(s): 44953005 (5) Acute respiratory failure Current Visit: No Status: Acute Code(s): J96.00 - ACUTE RESPIRATORY FAILURE , UNSP W HYPOXIA OR HYPERCAPNIA SNOMED Code(s): 01559087 (6) Chronic renal disease, stage 4, severely decreased glomerular filtration rate (GFR) between 15-29 mL/min/1.73 square meter Current Visit: No Status: Acute Code(s): N18.4 - CHRONIC KIDNEY DISEASE, STAGE 4 (SEVERE) SNOMED Code(s): 912128659 (7) Diabetes Current Visit: No Status: Acute Code(s): E11.9 - TYPE 2 DIABETES MELLITUS WITHOUT COMPLICATIONS SNOMED Code(s): 90456570 (8) Pneumonia Current Visit: No Status: Acute Code(s): J18.9 - PNEUMONIA, UNSPECIFIED ORGANISM SNOMED Code(s): 480897312 (9) Acute kidney failure Current Visit: Yes Status: Acute Code(s): N17.9 - ACUTE KIDNEY FAILURE, UNSPECIFIED SNOMED Code(s): 68147497 Plan: continue subcutaneous heparin for DVT prophylaxis. Repeat labs in a.m. She'll continue on IV Lasix, Solu-Medrol, updrafts, , and Levaquin she'll continue on her psychiatric medications as prescribed. I'll wait for the recommendations from Cardiology,pulmonology and nephrology f/u in the next 24 hrs
--- NOTE | 2018-07-24 13:25 | P.PN ---
Subjective Progress Note Date: 07/24/18 This is a pleasant 63-year-old female with past medical history of a chronic kidney disease, diabetes, hypertension, hyperlipidemia, COPD, prior history of smoking for which the patient states that she quit approximately 3 years ago. Patient presented to the hospital on this occasion with symptoms of progressively worsening shortness of breath over a 3-4 day duration. She has been using her inhaler which did not seem to give her any relief. Positive cough, nonproductive. He denies any fever or chills. Chest x-ray on admission showed congestive heart failure with right upper lobe infiltrate versus mass. Her EKG shows a normal sinus rhythm with a left bundle-branch block pattern. Upon review of prior EKGs, patient has been noted to have a left bundle-branch block pattern in the past. Blood pressure 144/90, heart rate in the 70s, afebrile. White blood cell count is normal, hemoglobin on admission 10.0, 8.6 this morning. Platelet count 205. Sodium 144, potassium 5.5, BUN 48 and creatinine 2.2. Ferritin level 45.8, iron saturation 27.7, vitamin D 16.4, troponin 0.012 and BNP 3000. Patient was given an oral dose of Lasix on admission here and started on by mouth Lasix. She does state that she is put out urine since her admission. She does not take any Lasix at home and has not been told in the past to have any history of congestive cardiac failure. At the time of my examination this morning, she sitting up at the side of the bed, breathing is overall stable. 07/22/2018 Patient was seen and examined this morning, her weight is down 3 kg today. Blood pressure 134/90 with a heart rate in the 90s, 98% on 4 L. White blood cell count 5.1, hemoglobin 9, platelet count 225. Sodium 144, potassium 5.3, BUN 66 and creatinine 3.05. Patient does feel that her breathing is somewhat improved overall today. We will repeat a chest x-ray tomorrow morning. Continue current dose of IV Lasix. 07/23/2018 Patient seen and examined this morning, she is overall feeling better today. Heart rate remains in the range of 104, we'll increase her dose of beta ulises today. Weight today is down 1 kg, she is currently on by mouth Lasix. 07/24/2018 Patient seen and examined this morning, overall doing well. Blood pressure 128/ 70 with a heart rate in the 80s to 90s, 97% on 4 L of oxygen. Sodium 140, potassium 5.5, BUN 83 and creatinine 3.3, magnesium 2.2. Objective - Vital Signs Vital signs: Vital Signs Temp 97.9 F 07/24/18 04:39 Pulse 92 07/24/18 11:30 Resp 20 07/24/18 08:01 BP 129/72 07/24/18 08:01 Pulse Ox 97 07/24/18 08:01 Intake & Output 07/23/18 07/24/18 07/24/18 18:59 06:59 18:59 Intake Total 540 240 Output Total 1 200 Balance 539 -200 240 Weight 83 kg Intake: Oral 540 240 Output: Urine 1 200 Other: Voiding Method Toilet # Voids 1 1 - Exam PHYSICAL EXAMINATION: GENERAL: 63-year-old female in no acute distress at the time of my examination HEENT: Head is atraumatic, normocephalic. Pupils equal, round. Sclera anicteric. Conjunctiva are clear. Mucous membranes of the mouth are moist. Neck is supple. There is no elevated jugular venous pressure. No carotid bruit is heard. HEART EXAMINATION: Heart S1, S2 normal. No murmur or gallop heard. CHEST EXAMINATION: Lungs reveal diminished air entry to bilateral bases. ABDOMEN: Soft, nontender. Bowel sounds are heard. No organomegaly noted. EXTREMITIES: 2+ peripheral pulses with trace evidence of peripheral edema and no calf tenderness noted. NEUROLOGIC patient is awake, alert and oriented 3 . - Labs CBC & Chem 7: 07/22/18 06:23 07/24/18 06:12 Labs: Abnormal Lab Results - Last 24 Hours (Table) 07/23/18 07/24/18 07/24/18 Range/Units 21:07 06:12 06:19 Potassium 5.5 H (3.5-5.1) mmol/L Carbon Dioxide 21 L (22-30) mmol/L BUN 83 H (7-17) mg/dL Creatinine 3.34 H (0.52-1.04) mg/dL POC Glucose (mg/dL) 143 H 105 H (75-99) mg/dL Calcium 6.8 L (8.4-10.2) mg/dL 07/24/18 07/24/18 Range/Units 11:32 11:45 Potassium (3.5-5.1) mmol/L Carbon Dioxide (22-30) mmol/L BUN (7-17) mg/dL Creatinine (0.52-1.04) mg/dL POC Glucose (mg/dL) 64 L 70 L (75-99) mg/dL Calcium (8.4-10.2) mg/dL Assessment and Plan Plan: Assessment and plan #1 symptoms of progressively worsening shortness of breath, likely component of COPD exacerbation and congestive cardiac failure. Systolic acute on chronic. #2 hypertension #3 diabetes #4 hyperlipidemia #5 COPD #6 nicotine dependence #7 acute on chronic renal failure #8 chronic anemia likely secondary to renal failure Plan Patient is now on 40 mg of Lasix daily, we'll continue her dose of beta ulises at 50 mg daily today. Suggest that patient may benefit with Epogen for low hemoglobin. will discuss with Nephro. DNP note has been reviewed, I agree with a documented findings and plan of care. Patient was seen and examined.
[2018-07-24] MEDS ORDERED: DARBEPOETIN ALFA 40 MCG/0.4 ML SYRINGE SQ ONE (14:00)
--- NOTE | 2018-07-24 14:52 | P.DS ---
Providers Date of admission: 07/20/18 22:24 Expected date of discharge: 07/24/18 Attending physician: Adal Mari Consults: 07/20/18 22:06 Consult Physician Stat Consulting Provider: Lavern Benjamin Consult Reason/Comments: copd exacerbation, community acquired pneumonia, chf Do you want consulting provider notified?: Yes 07/20/18 22:18 Consult Physician Stat Consulting Provider: Jf Gillette Consult Reason/Comments: COPD exacerbation, community acquired pneumonia, chf Do you want consulting provider notified?: Yes 07/21/18 11:25 Consult Physician Routine Consulting Provider: Kaia Gunderson Consult Reason/Comments: ELEVATER BUN AND CR. Do you want consulting provider notified?: Yes 07/21/18 13:05 Consult Physician Routine Consulting Provider: Tavo Winchester Consult Reason/Comments: acute on chronic renal failure Do you want consulting provider notified?: Yes Primary care physician: Adal Mari - Discharge Diagnosis(es) (1) Systolic congestive heart failure Current Visit: Yes Status: Acute (2) COPD exacerbation Current Visit: Yes Status: Acute (3) Acute renal failure Current Visit: No Status: Acute (4) Iron deficiency anemia Current Visit: Yes Status: Acute (5) Acute respiratory failure Current Visit: No Status: Acute (6) Chronic renal disease, stage 4, severely decreased glomerular filtration rate (GFR) between 15-29 mL/min/1.73 square meter Current Visit: No Status: Acute (7) Diabetes Current Visit: No Status: Acute (8) Pneumonia Current Visit: No Status: Acute (9) Acute kidney failure Current Visit: Yes Status: Acute Hospital Course: Brie is a 63 y/o WF with a H/o COPD. She c/o using her inhaler for SOB and cough for the past few days without it helping. She came into the ER and was evaluated. CXR show ? infiltrate, and CHF, BMP 3000. She si now being evaluated for further tx. She denies any Chest pain, nausea, vomitting, diarrhea or constipation. 07/22/2018: Patient is feeling improved. Pulmonology's started her on inhaled corticosteroids and she remains on Levaquin and IV steroids. Nephrology has evaluated her as well. The recommendations were noted. Brie herself denies any chest pains pressures, nausea or vomiting, or shortness of breath at rest. She has her oxygen on 4 L/m via nasal cannula. She denies a bowel movement since arriving. 07/23/2018: Patient feels better. She is sitting beside the bed. She remains on inhaled corticosteroids, Levaquin, and IV steroids. She complains of his shakiness with her updrafts. She has oxygen 4 L/m nasal cannula. She uses this at home as well. She reports her home oxygen company is gone out of business. We discussed her using heart medical. She denies any chest pains, pressures, shortness breath at rest, nausea or vomiting. She did have a bowel movement after being given MiraLAX today. 07/24/2018: Patient is feel well. She remains on lasix, oxygen, inhaled corticosteroid, Levaquin, and IV steroids. She has hyperkalemia today. Nephrology regarding her some Lasix and other treatment.She also has systolic congestive heart failure with ejection fraction 30-35%. She denies any chest pains, pressures, shortness breath at rest, nausea or vomiting. She will now be D/C'd after being cleared by consultants. She will continue on Oxygen. She will NOT take Seroquel qhile taking anitibiotics. Patient Condition at Discharge: Serious Plan - Discharge Summary Discharge Rx Participant: No New Discharge Prescriptions: New Furosemide [Lasix] 40 mg PO DIRECTED #15 tablet hydrALAZINE HCL [Apresoline] 25 mg PO TID #90 tab Ipratropium-Albuterol Nebulize [Duoneb 0.5 mg-3 mg/3 ml Soln] 3 ml INHALATION Q4HR PRN #100 ampul.neb PRN Reason: wheezing Isosorbide Mononitrate ER [Imdur] 60 mg PO DAILY #30 tab.er.24h Levofloxacin [Levaquin] 250 mg PO 1200 #5 tab Metoprolol Succinate (ER) [Toprol XL] 50 mg PO DAILY #30 tab.er.24h Continue Sertraline [Zoloft] 200 mg PO DAILY Phenytoin Sodium Extended [Dilantin] 100 mg PO TID QUEtiapine FUMARATE 150 mg PO HS@2000 Folic Acid 1 mg PO DAILY Gemfibrozil [Lopid] 1,200 mg PO HS Montelukast [Singulair] 10 mg PO HS #30 tab Sodium Bicarbonate Tab 1,300 mg PO BID #60 tab Omeprazole [PriLOSEC] 20 mg PO DAILY Calcitriol 0.5 mcg PO MOWE Cyclobenzaprine [Flexeril] 5 mg PO BID PRN PRN Reason: Muscle Spasm Bisoprolol-Hctz 5-6.25 mg [Ziac 5-6.25 MG] 1 tab PO DAILY Primidone [Mysoline] 50 mg PO BID Discharge Medication List Phenytoin Sodium Extended [Dilantin] 100 mg PO TID 11/29/15 [History] Sertraline [Zoloft] 200 mg PO DAILY 11/29/15 [History] Folic Acid 1 mg PO DAILY 07/22/17 [History] QUEtiapine FUMARATE 150 mg PO HS@199907/22/17 [History] Gemfibrozil [Lopid] 1,200 mg PO HS 09/05/17 [History] Montelukast [Singulair] 10 mg PO HS #30 tab 12/26/17 [Rx] Sodium Bicarbonate Tab 1,300 mg PO BID #60 tab 02/23/18 [Rx] Bisoprolol-Hctz 5-6.25 mg [Ziac 5-6.25 MG] 1 tab PO DAILY 07/20/18 [History] Calcitriol 0.5 mcg PO MOWEFR 07/20/18 [History] Cyclobenzaprine [Flexeril] 5 mg PO BID PRN 07/20/18 [History] Omeprazole [PriLOSEC] 20 mg PO DAILY 07/20/18 [History] Primidone [Mysoline] 50 mg PO BID 07/20/18 [History] Furosemide [Lasix] 40 mg PO DIRECTED #15 tablet 07/24/18 [Rx] Ipratropium-Albuterol Nebulize [Duoneb 0.5 mg-3 mg/3 ml Soln] 3 ml INHALATION Q4HR PRN #100 ampul.neb 07/24/18 [Rx] Isosorbide Mononitrate ER [Imdur] 60 mg PO DAILY #30 tab.er.24h 07/24/18 [Rx] Levofloxacin [Levaquin] 250 mg PO 1200 #5 tab 07/24/18 [Rx] Metoprolol Succinate (ER) [Toprol XL] 50 mg PO DAILY #30 tab.er.24h 07/24/18 [Rx ] hydrALAZINE HCL [Apresoline] 25 mg PO TID #90 tab 07/24/18 [Rx] Follow up Appointment(s)/Referral(s): Adal Mari Jr, DO [Primary Care Provider] - 07/29/18 11:00 am (Saturday) Tavo Winchester DO [STAFF PHYSICIAN] - 1 Week Barrera Meza MD [STAFF PHYSICIAN] - 08/14/18 3:30 pm Patient Instructions/Handouts: Heart Failure (DC), Heart Healthy Diet (DC) Discharge Disposition: HOME SELF-CARE
[2018-07-24 14:53] VITALS: TEMP 98.1
[2018-07-24 15:48] VITALS: BP 130/83; PULSE 96
--- NOTE | 2018-07-24 17:59 | P.PN ---
Subjective Progress Note Date: 07/24/18 Principal diagnosis: Acute right upper lobe pneumonia, acute COPD exacerbation A 63-year-old female patient is coming in for increased shortness of breath. The patient's breathing got progressively worse over the past 3-4 days. The patient a positive cough that was initially nonproductive and later on she started bringing up some sputum. She denied having any fever or chills. She was feeling sick in general. No angina pain no pleurisy. No hemoptysis. She is known to have COPD. She has history of smoking and she quit smoking approximately 3 years ago. She also has history of runny kidney disease, hypertension, hyperlipidemia and diabetes mellitus. The patient came into the hospital. A chest x-ray was done that showed a right upper lobe pulmonary infiltrate consistent with pneumonia. The patient was started on broad- spectrum antibiotics. Also, the patient was found to have a normal white count and evidence of chronic renal failure with a creatinine of 2.2. Troponin was at 0.012 and an BNP level was at 3000. No exposure to sick contacts. No travel history. No bouts of recurrent pneumonias. Currently she is on Levaquin. His dose was given in the emergency department I am going to continue the dose at 250 mg on a daily basis. The patient is also on IV Solu- Medrol and DuoNeb about treatments around the clock regarding her acute COPD exacerbation secondary to right upper lobe pneumonia. Outpatient medications of been ordered resume. She is doing well. No mental status change. No headaches. No nausea or vomiting. No diarrhea. No abdominal pain. No other significant events otherwise for now. Cardiology is also on the case. Today's evaluation, the patient is feeling slightly better compared to yesterday. No fever chills or night sweats. The patient on Levaquin. The patient has a right upper lobe pulmonary infiltrates/pneumonia. Renal function stable with a mean of 66 and creatinine 3.05. No cultures are available for now. The patient is currently on [address] by nasal cannula. His saturations around 90%. A repeat chest x-ray will be obtained for tomorrow. On 07/23/2018 patient seen in follow-up. Patient is doing well, minimal wheezing on today's exam, no fever or chills, 96% on room air, vital signs are stable. Today's labs have been reviewed, shows sodium of 142, potassium is 5.4 , chloride is 110, CO2 is 21, BUN 78 and creatinine is 3.42. Complex of chest pain, no complaints of worsening shortness of breath or chest congestion. Nephrology is following, patient's renal status is relatively stable. She does have history of chronic kidney disease stage IV, and she does have a chronic systolic heart failure with EF of 30-35%. She has been transitioned to oral Lasix, oral antibiotics in the form of Levaquin, and she is on IV steroids, and nebulized bronchodilators. Clinically she is improving, anticipate discharge in next 24 hours. The patient is seen today 07/24/2018 in follow-up on the selective care unit. She is awake and alert in no acute distress. She is maintaining O2 saturations in the mid 90s on 4 L/m per nasal cannula. She's been afebrile. Hemodynamically stable. Sodium 140, potassium 5.5, chloride 107, bicarb 21, creatinine 3.34. She is maintained on bronchodilators, Pulmicort and Perforomist inhalations, IV Solu-Medrol, Singulair. Antibiotics in the form of Levaquin. Receiving oral bicarb. Objective - Vital Signs Vital signs: Vital Signs Temp 98.1 F 07/24/18 12:00 Pulse 96 07/24/18 15:47 Resp 20 07/24/18 15:47 BP 130/83 07/24/18 15:47 Pulse Ox 95 07/24/18 15:47 Intake & Output 07/23/18 07/24/18 07/24/18 18:59 06:59 18:59 Intake Total 540 480 Output Total 1 200 Balance 539 -200 480 Weight 83 kg Intake: Oral 540 480 Output: Urine 1 200 Other: Voiding Method Toilet # Voids 1 1 3 - Exam GENERAL EXAM: Alert, active, comfortable in no apparent distress. On 4 L nasal cannula. HEAD: Normocephalic/atraumatic. EYES: Normal reaction of pupils, equal size. Conjunctiva pink, sclera white. NOSE: Clear with pink turbinates. THROAT: No erythema or exudates. NECK: No masses, no JVD, no thyroid enlargement, no adenopathy. CHEST: No chest wall deformity. Symmetrical expansion. LUNGS: Equal air entry with minimal wheezes CVS: Regular rate and rhythm, normal S1 and S2, no gallops, no murmurs, no rubs ABDOMEN: Soft, nontender. No hepatosplenomegaly, normal bowel sounds, no guarding or rigidity. EXTREMITIES: No clubbing, no edema, no cyanosis, 2+ pulses and upper and lower extremities. MUSCULOSKELETAL: Muscle strength and tone normal. SPINE: No scoliosis or deformity SKIN: No rashes CENTRAL NERVOUS SYSTEM: Alert and oriented -3. No focal deficits, tone is normal in all 4 extremities. PSYCHIATRIC: Alert and oriented -3. Appropriate affect. Intact judgment and insight. - Labs CBC & Chem 7: 07/22/18 06:23 07/24/18 12:55 Labs: Abnormal Lab Results - Last 24 Hours (Table) 07/23/18 07/24/18 07/24/18 Range/Units 21:07 06:12 06:19 Potassium 5.5 H (3.5-5.1) mmol/L Carbon Dioxide 21 L (22-30) mmol/L BUN 83 H (7-17) mg/dL Creatinine 3.34 H (0.52-1.04) mg/dL POC Glucose (mg/dL) 143 H 105 H (75-99) mg/dL Calcium 6.8 L (8.4-10.2) mg/dL 07/24/18 07/24/18 Range/Units 11:32 11:45 Potassium (3.5-5.1) mmol/L Carbon Dioxide (22-30) mmol/L BUN (7-17) mg/dL Creatinine (0.52-1.04) mg/dL POC Glucose (mg/dL) 64 L 70 L (75-99) mg/dL Calcium (8.4-10.2) mg/dL Assessment and Plan Assessment: Assessment: 1 acute right upper lobe pneumonia 2 acute COPD exacerbation secondary to underlying right upper lobe pneumonia. 3 acute hypoxic respiratory failure secondary to above, currently on 4L of oxygen nasal cannula 4 Diabetes mellitus type II 5 hyperlipidemia 6 chronic kidney failure. The patient has stage IV chronic kidney disease 7 peripheral neuropathy 8. Seizure disorder 9 previous history of fracture of the posterior ninth and 60 mg along with mild pleural thickening on the right side 10 chronic congestion heart failure with systolic heart failure and ejection fraction of 30-35% in addition to mild anteroseptal and inferoseptal LV wall motion abnormalities. No significant valvular regurgitation or disruption. No significant pulmonary hypertension. Plan: The patient was seen and evaluated by Dr. Benjamin. She is improved from the pulmonary standpoint. She is cleared for discharge once cleared by the other consultants. She could follow-up in our office in 1-2 weeks' time. We'll repeat a chest x-ray then. Continue her home pulmonary medications. Complete prednisone taper. Complete her course of antibiotics. She is encouraged to call sooner with any recurrence of symptoms or other questions or concerns. I, the cosigning physician, performed a history & physical examination of the patient. Lungs sounds with faint end expiratory wheeze, rhonchi. Maintaining good O2 saturations in the 90s on 4 L/m per nasal cannula. I discussed the assessment and plan of care with my nurse practitioner, Kirstie Anne. I attest to the above note as dictated by her.
== END 2018-07-24 16:00 | disposition home or self-care (01) | DRG 291 ==
LOC: EC 20:01 → 3SCARD 22:24
PROVIDERS: ADMIT Family Medicine; ATTEND Family Medicine
DX: I13.0 Hypertensive heart and chronic kidney disease with heart failure and stage 1 through stage 4 chronic kidney disease, or unspecified chronic kidney disease (principal); J18.9 Pneumonia, unspecified organism; I50.23 Acute on chronic systolic (congestive) heart failure; J96.01 Acute respiratory failure with hypoxia; J96.02 Acute respiratory failure with hypercapnia; E87.2 Acidosis; J44.0 Chronic obstructive pulmonary disease with (acute) lower respiratory infection; J44.1 Chronic obstructive pulmonary disease with (acute) exacerbation; N17.9 Acute kidney failure, unspecified; N18.4 Chronic kidney disease, stage 4 (severe); F17.210 Nicotine dependence, cigarettes, uncomplicated; D50.9 Iron deficiency anemia, unspecified; D63.1 Anemia in chronic kidney disease; E11.22 Type 2 diabetes mellitus with diabetic chronic kidney disease; E78.5 Hyperlipidemia, unspecified; E83.42 Hypomagnesemia; T50.2X5A Adverse effect of carbonic-anhydrase inhibitors, benzothiadiazides and other diuretics, initial encounter; E87.5 Hyperkalemia; F12.10 Cannabis abuse, uncomplicated; F31.9 Bipolar disorder, unspecified; F41.9 Anxiety disorder, unspecified; G40.909 Epilepsy, unspecified, not intractable, without status epilepticus; E11.42 Type 2 diabetes mellitus with diabetic polyneuropathy; I44.7 Left bundle-branch block, unspecified; Z79.899 Other long term (current) drug therapy; Z82.49 Family history of ischemic heart disease and other diseases of the circulatory system; Z83.3 Family history of diabetes mellitus; Z90.710 Acquired absence of both cervix and uterus; E83.9 Disorder of mineral metabolism, unspecified; Z88.0 Allergy status to penicillin
CPT/HCPCS: 36415; 71046; 80048; 80053; 83540; 83550; 83735; 83880; 84132; 84484; 85025; 85610; 85730; 87070; 87205; 87449; 93005; 93306; 94640; 94760; 96361; 96374; 99285

== ENCOUNTER → 2018-09-03 | Outpatient (CLI) | payer OTHER ==
[2018-09-03 13:28] LABS: Basophils % (A) 1 %; Eosinophils # (A) 0.2 k/uL (0-0.7); Eosinophils % (A) 4 %; HCT 28.3 % (34.0-46.0); HGB 9.3 gm/dL (11.4-16.0); Hypochromasia Moderate; Lymphocytes # (A) 0.7 k/uL (1.0-4.8); Lymphocytes % (A) 12 %; MCH 32.4 pg (25.0-35.0); MCHC 32.9 g/dL (31.0-37.0); MCV 98.5 fL (80.0-100.0); Macrocytosis Slight; Mean Platelet Volume 7.7; Monocytes # (A) 0.3 k/uL (0-1.0); Monocytes % (A) 5 %; Neutrophils # (A) 4.4 k/uL (1.3-7.7); Neutrophils % (A) 77 %; Platelet Count 217 k/uL (150-450); Poikilocytosis Slight; RBC 2.88 m/uL (3.80-5.40); RDW 15.6 % (11.5-15.5); WBC 5.8 k/uL (3.8-10.6)
[2018-09-03 20:13] LABS: Albumin 4.3 g/dL (3.80-4.90); Albumin/Globulin Ratio 1.79 (1.60-3.17); Anion Gap 10.1 mmol/L (4.00-12.00); Calcium 6.8 mg/dL (8.7-10.3); Carbon Dioxide 18.9 mmol/L (21.6-31.8); Globulin 2.4 g/dL (1.6-3.3); LDL Cholesterol,Calculated 120.4 mg/dL (0.0-131.0); Total Bilirubin 0.1 mg/dL (0.3-1.2); Total Protein 6.7 g/dL (6.2-8.2); VLDL Calculation 21.6 mg/dL (5.00-40.00)
== END ==
LOC: LABWHC1 12:08
PROVIDERS: ATTEND Internal Medicine Cardiovascular Disease
DX: E11.9 Type 2 diabetes mellitus without complications (principal)
CPT/HCPCS: 36415; 80053; 80061; 85025

== ENCOUNTER → 2018-11-13 | Outpatient (CLI) | payer OTHER ==
[2018-11-13 13:07] LABS: Basophils % (A) 1 %; Eosinophils # (A) 0.1 k/uL (0-0.7); Eosinophils % (A) 2 %; HCT 27.7 % (34.0-46.0); HGB 8.5 gm/dL (11.4-16.0); Hypochromasia Marked; Lymphocytes # (A) 0.6 k/uL (1.0-4.8); Lymphocytes % (A) 15 %; MCH 30.5 pg (25.0-35.0); MCHC 30.6 g/dL (31.0-37.0); Macrocytosis Slight; Mean Platelet Volume 7.4; Monocytes # (A) 0.2 k/uL (0-1.0); Monocytes % (A) 5 %; Neutrophils # (A) 3.1 k/uL (1.3-7.7); Neutrophils % (A) 75 %; Platelet Count 196 k/uL (150-450); Poikilocytosis Slight; RBC 2.77 m/uL (3.80-5.40); RDW 15.4 % (11.5-15.5); WBC 4.1 k/uL (3.8-10.6)
[2018-11-13 13:26] LABS: African American GFR (CKD) 15 (>60 ml/min/1.73 sqM); Anion Gap 13 mmol/L; Blood Urea Nitrogen 47 mg/dL (7-17); Carbon Dioxide 20 mmol/L (22-30); Chloride 111 mmol/L (98-107); Glucose 178 mg/dL (74-99); Potassium 4.6 mmol/L (3.5-5.1); Sodium 144 mmol/L (137-145)
[2018-11-13 13:37] LABS: Calcium 6.2 mg/dL (8.4-10.2)
== END | disposition home or self-care (01) ==
LOC: LABWHC1 12:41
PROVIDERS: ATTEND Family Medicine
DX: D64.9 Anemia, unspecified (principal); J44.9 Chronic obstructive pulmonary disease, unspecified
CPT/HCPCS: 36415; 80048; 85025

== ENCOUNTER 2018-11-27 20:49 | Inpatient (IN) | payer OTHER ==
--- NOTE | 2018-11-27 21:38 | ED ---
Fall HPI - General Chief Complaint: Fall Stated Complaint: Fall Time Seen by Provider: 11/27/18 21:09 Source: patient Mode of arrival: ambulatory - History of Present Illness Initial Comments: This patient is a 63-year-old woman who presents to be evaluated after a fall she had tonight at home. Patient states that she had been standing at her counselor and then which turned she felt like her legs gave out and she fell. The patient lives with her son who then went to help her up and she had a difficult time supporting herself due to feeling generalized weakness. She denies any focal weakness. She also denies injury other than having a little bit a headache after the fall she describes as mild and generalized. No neck pain. MD Complaint: fall Onset/Timin -: hour(s) Fall From: standing When Fall Occurred: 1 hour [employer]SF[employer] Fall Witnessed: yes, by family Place Fall Occurred: home Loss of Consciousness: none Prolonged Down Time?: no Symptoms Prior to Fall: none Location: head Severity: moderate Quality: dull Context: history of frequent falls Associated Symptoms: weakness - Related Data Home Medications Medication Instructions Recorded Confirmed Phenytoin Sodium Extended 100 mg PO TID 11/29/15 11/27/18 [Dilantin] Sertraline [Zoloft] 200 mg PO DAILY 11/29/15 11/27/18 Folic Acid 1 mg PO DAILY 07/22/17 11/27/18 QUEtiapine FUMARATE 150 mg PO HS@199907/22/17 11/27/18 Gemfibrozil [Lopid] 1,200 mg PO HS 09/05/17 11/27/18 Bisoprolol-Hctz 5-6.25 mg [Ziac 1 tab PO DAILY 07/20/18 11/27/18 5-6.25 MG] Calcitriol 0.5 mcg PO MOWEFR 07/20/18 11/27/18 Cyclobenzaprine [Flexeril] 5 mg PO BID PRN 07/20/18 11/27/18 Omeprazole [PriLOSEC] 20 mg PO DAILY 07/20/18 11/27/18 Primidone [Mysoline] 50 mg PO BID 07/20/18 11/27/18 Furosemide [Lasix] 40 mg PO Q48H 11/27/18 11/27/18 Ipratropium-Albuterol Nebulize 3 ml INHALATION RT-QID PRN 11/27/18 11/27/18 [Duoneb 0.5 mg-3 mg/3 ml Soln] Potassium Chloride 10 meq PO DAILY 11/27/18 11/27/18 Previous Rx's Medication Instructions Recorded Montelukast [Singulair] 10 mg PO HS #30 tab 12/26/17 Sodium Bicarbonate Tab 1,300 mg PO BID #60 tab 02/23/18 Isosorbide Mononitrate ER [Imdur] 60 mg PO DAILY #30 tab.er.24h 07/24/18 Metoprolol Succinate (ER) [Toprol 50 mg PO DAILY #30 tab.er.24h 07/24/18 XL] Allergies Allergy/AdvReac Type Severity Reaction Status Date / Time Penicillins Allergy Mild Swelling Verified 11/27/18 21:48 Review of Systems ROS Statement: Those systems with pertinent positive or pertinent negative responses have been documented in the HPI. ROS Other: All systems not noted in ROS Statement are negative. Constitutional: Reports: weakness. Denies: fever, chills Respiratory: Denies: cough, dyspnea Cardiovascular: Denies: chest pain, palpitations, edema, syncope Gastrointestinal: Denies: abdominal pain, vomiting, diarrhea Genitourinary: Denies: dysuria, hematuria Musculoskeletal: Denies: back pain Skin: Denies: rash Neurological: Reports: headache. Denies: weakness, numbness Past Medical History Past Medical History: COPD, Diabetes Mellitus, Hyperlipidemia, Hypertension, Seizure Disorder History of Any Multi-Drug Resistant Organisms: None Reported Past Surgical History: Hysterectomy Additional Past Surgical History / Comment(s): ESWL Past Anesthesia/Blood Transfusion Reactions: No Reported Reaction Past Psychological History: Anxiety, Bipolar, Depression Smoking Status: Former smoker Past Alcohol Use History: None Reported Past Drug Use History: Marijuana, Prescription Drug Abuse - Past Family History Mother Family Medical History: Diabetes Mellitus, Hypertension Father Family Medical History: Hypertension General Exam Limitations: no limitations General appearance: alert, in no apparent distress Head exam: Present: atraumatic, normocephalic Eye exam: Present: normal appearance, PERRL, EOMI. Absent: scleral icterus, conjunctival injection, nystagmus Neck exam: Present: normal inspection Respiratory exam: Present: normal lung sounds bilaterally, wheezes, rales (Bilateral bases). Absent: respiratory distress, rhonchi, stridor, chest wall tenderness, accessory muscle use, decreased breath sounds, prolonged expiratory Cardiovascular Exam: Present: regular rate, normal rhythm, normal heart sounds. Absent: systolic murmur, diastolic murmur, rubs, gallop GI/Abdominal exam: Present: soft. Absent: distended, tenderness, guarding, rebound, rigid, mass Extremities exam: Present: normal inspection, normal capillary refill. Absent: pedal edema, calf tenderness Back exam: Present: normal inspection. Absent: CVA tenderness (R), CVA tenderness (L) Neurological exam: Present: alert Skin exam: Present: warm, dry, intact, normal color. Absent: rash Course Vital Signs 11/27/18 11/27/18 11/28/18 20:54 22:30 01:18 Temperature 98.6 F 98.2 F 97.9 F Pulse Rate 86 78 85 Respiratory 20 16 18 Rate Blood Pressure 124/79 137/87 142/82 O2 Sat by Pulse 95 98 96 Oximetry Medical Decision Making - Lab Data Result diagrams: 11/27/18 22:03 11/27/18 22:03 Lab Results 11/27/18 11/27/18 Range/Units 22:03 22:03 WBC 6.8 (3.8-10.6) k/uL RBC 2.43 L (3.80-5.40) m/uL Hgb 7.4 L (11.4-16.0) gm/dL Hct 24.7 L (34.0-46.0) % MCV 101.4 H (80.0-100.0) fL MCH 30.3 (25.0-35.0) pg MCHC 29.8 L (31.0-37.0) g/dL RDW 15.8 H (11.5-15.5) % Plt Count 241 (150-450) k/uL Neutrophils % 80 % Lymphocytes % 11 % Monocytes % 5 % Eosinophils % 2 % Basophils % 1 % Neutrophils # 5.4 (1.3-7.7) k/uL Lymphocytes # 0.7 L (1.0-4.8) k/uL Monocytes # 0.3 (0-1.0) k/uL Eosinophils # 0.2 (0-0.7) k/uL Basophils # 0.0 (0-0.2) k/uL Hypochromasia Marked Poikilocytosis Slight Macrocytosis Slight Sodium 142 (137-145) mmol/L Potassium 6.2 H* (3.5-5.1) mmol/L Chloride 116 H (98-107) mmol/L Carbon Dioxide 12 L (22-30) mmol/L Anion Gap 14 mmol/L BUN 63 H (7-17) mg/dL Creatinine 4.99 H (0.52-1.04) mg/dL Est GFR (CKD-EPI)AfAm 10 (>60 ml/min/1.73 sqM) Est GFR (CKD-EPI)NonAf 9 (>60 ml/min/1.73 sqM) Glucose 112 H (74-99) mg/dL Calcium 6.6 L (8.4-10.2) mg/dL Magnesium 2.1 (1.6-2.3) mg/dL Total Bilirubin 0.3 (0.2-1.3) mg/dL AST 16 (14-36) U/L ALT 10 (9-52) U/L Alkaline Phosphatase 234 H (38-126) U/L Total Protein 7.0 (6.3-8.2) g/dL Albumin 3.9 (3.5-5.0) g/dL Phenytoin 7.6 ug/mL Disposition Clinical Impression: Fall, Chronic renal disease, stage 4, severely decreased glomerular filtration rate (GFR) between 15-29 mL/min/1.73 square meter, Hypokalemia, Anemia Disposition: ADMITTED IP TO THIS [facility] Condition: Fair Is patient prescribed a controlled substance at d/c from ED?: No Referrals: Adal Mari Jr, [Primary Care Provider] - 1-2 days
[2018-11-27 22:26] LABS: Basophils % (A) 1 %; Eosinophils # (A) 0.2 k/uL (0-0.7); Eosinophils % (A) 2 %; HCT 24.7 % (34.0-46.0); HGB 7.4 gm/dL (11.4-16.0); Hypochromasia Marked; Lymphocytes # (A) 0.7 k/uL (1.0-4.8); Lymphocytes % (A) 11 %; MCH 30.3 pg (25.0-35.0); MCHC 29.8 g/dL (31.0-37.0); MCV 101.4 fL (80.0-100.0); Macrocytosis Slight; Monocytes # (A) 0.3 k/uL (0-1.0); Monocytes % (A) 5 %; Neutrophils # (A) 5.4 k/uL (1.3-7.7); Neutrophils % (A) 80 %; Platelet Count 241 k/uL (150-450); Poikilocytosis Slight; RBC 2.43 m/uL (3.80-5.40); RDW 15.8 % (11.5-15.5); WBC 6.8 k/uL (3.8-10.6)
[2018-11-27 22:33] LABS: Albumin 3.9 g/dL (3.5-5.0); Calcium 6.6 mg/dL (8.4-10.2); Magnesium 2.1 mg/dL (1.6-2.3); Phenytoin (Dilantin) 7.6 ug/mL; Total Bilirubin 0.3 mg/dL (0.2-1.3)
[2018-11-27 22:38] LABS: Potassium 6.2 mmol/L (3.5-5.1)
--- NOTE | 2018-11-27 23:32 | CT ---
EXAM: CT Head Without Intravenous Contrast CLINICAL HISTORY: ITS.REASON CT Reason: Pain TECHNIQUE: Axial computed tomography images of the head/brain without intravenous contrast. This CT exam was performed using one or more of the following dose reduction techniques: automated exposure control, adjustment of the mA and/or kV according to patient size, and/or use of iterative reconstruction technique. COMPARISON: No relevant prior studies available. FINDINGS: Brain: No hemorrhage. No edema. Ventricles: Unremarkable. No ventriculomegaly. Bones/joints: No acute fracture. Soft tissues: Unremarkable. Sinuses: No fluid levels. Mastoid air cells: Unremarkable as visualized. No mastoid effusion. IMPRESSION: No acute intracranial findings
[2018-11-28] MEDS ORDERED: SODIUM POLYSTYRENE SULFONATE 15 GM/60 ML BOTTLE PO STA ×2 (01:09→12:13)
[2018-11-28] MEDS ORDERED: NALOXONE 0.4 MG/ML 1 ML VIAL IV PRN (01:49)
[2018-11-28] MEDS ORDERED: FUROSEMIDE 40 MG TAB PO SCH (02:00)
[2018-11-28 02:10] LABS: Appearance,Urine Clear (Clear); Bilirubin,Urine Negative (Negative); Blood,Urine Negative (Negative); Color,Urine Light Yellow; Glucose,Urine (UA) Negative (Negative); Hyaline Casts,Urine 1 /lpf (0-2); Ketones,Urine Negative (Negative); Leukocyte Esterase,Urine Negative (Negative); Mucus,Urine Rare /hpf; Nitrite,Urine Negative (Negative); Protein,Urine 2+ (Negative); RBC,Urine 1 /hpf (0-5); Specific Gravity,Urine 1.013 (1.001-1.035); Squamous Epithelial Cell,Urine 1 /hpf (0-4); Urobilinogen,Urine <2.0 mg/dL (<2.0); WBC,Urine 2 /hpf (0-5)
[2018-11-28] MEDS ORDERED: PHENYTOIN SODIUM EXTENDED 100 MG CAP PO STA (02:14)
[2018-11-28 06:01] LABS: Glucose,Whole Blood 184 mg/dL (75-99)
[2018-11-28] MEDS: PANTOPRAZOLE 40 MG TABLET PO SCH (06:17)
[2018-11-28] MEDS ORDERED: SODIUM BICARBONATE TAB 650 MG TAB PO SCH (09:00)
[2018-11-28] MEDS: FOLIC ACID 1 MG TAB PO SCH (09:39)
[2018-11-28] MEDS: METOPROLOL SUCCINATE (ER) 50 MG TAB.ER.24H PO SCH (09:39)
[2018-11-28] MEDS: SERTRALINE 100 MG TAB PO SCH (09:39)
[2018-11-28] MEDS: PRIMIDONE 50 MG TAB PO SCH ×2 (09:39→20:41)
[2018-11-28] MEDS: PHENYTOIN SODIUM EXTENDED 100 MG CAP PO SCH ×3 (09:39→20:41)
[2018-11-28 10:09] LABS: Calcium 6.8 mg/dL (8.4-10.2); Potassium 5.4 mmol/L (3.5-5.1)
--- NOTE | 2018-11-28 10:47 | P.NPCON ---
History of Present Illness - Reason for Consult Consult date: 11/28/18 acute renal failure - Chief Complaint fall - History of Present Illness 63 yo white lady, CKD patient of Dr Winchester admitted with fall. As per her was in kitchen and then remenbers lying on the floor. CT head no acute process. She has CKD4 from diabetic kidney disease with baseline creatinine of 2.8-3.2 mg/dl. She denies retinopathy, neuropathy+, no CAD/CVA. She has systolic CHF and takes lasix 40 mg every other day. No documented hypotensive episodes, no nsaid's use or recent contrast studies. Denies incomplete emptying of bladder. she takes potassium suppliments at home and also hctz 25 mg. No nausea, vomiting or diarrhea. on admission creatinine 4.99 improved to 4.65 today. potassium was 6.2, improved to 5.4 after kayaxylate. Review of Systems Constitutional: Reports as per HPI Past Medical History Past Medical History: COPD, Diabetes Mellitus, Hyperlipidemia, Hypertension, Seizure Disorder History of Any Multi-Drug Resistant Organisms: None Reported Past Surgical History: Hysterectomy Additional Past Surgical History / Comment(s): ESWL Past Anesthesia/Blood Transfusion Reactions: No Reported Reaction Past Psychological History: Anxiety, Bipolar, Depression Additional Psychological History / Comment(s): mother recently Smoking Status: Former smoker Past Alcohol Use History: None Reported Additional Past Alcohol Use History / Comment(s): pt. states she was a 2 pack a day smoker for many years and quit in 2016 Past Drug Use History: Marijuana, Prescription Drug Abuse Additional Drug Use History / Comment(s): pt. states she occassionally smokes marijuana - Past Family History Mother Family Medical History: Diabetes Mellitus, Hypertension Father Family Medical History: Hypertension Medications and Allergies Home Medications Medication Instructions Recorded Confirmed Type Phenytoin Sodium Extended 100 mg PO TID 11/29/15 11/27/18 History [Dilantin] Sertraline [Zoloft] 200 mg PO DAILY 11/29/15 11/27/18 History Folic Acid 1 mg PO DAILY 07/22/17 11/27/18 History QUEtiapine FUMARATE 150 mg PO HS@199907/22/17 11/27/18 History Gemfibrozil [Lopid] 1,200 mg PO HS 09/05/17 11/27/18 History Montelukast [Singulair] 10 mg PO HS #30 tab 12/26/17 11/27/18 Rx Sodium Bicarbonate Tab 1,300 mg PO BID #60 tab 02/23/18 11/27/18 Rx Bisoprolol-Hctz 5-6.25 mg [Ziac 1 tab PO DAILY 07/20/18 11/27/18 History 5-6.25 MG] Calcitriol 0.5 mcg PO MOWEFR 07/20/18 11/27/18 History Cyclobenzaprine [Flexeril] 5 mg PO BID PRN 07/20/18 11/27/18 History Omeprazole [PriLOSEC] 20 mg PO DAILY 07/20/18 11/27/18 History Primidone [Mysoline] 50 mg PO BID 07/20/18 11/27/18 History Isosorbide Mononitrate ER [Imdur] 60 mg PO DAILY #30 tab.er.24h 07/24/1811/27 Rx Metoprolol Succinate (ER) [Toprol 50 mg PO DAILY #30 tab.er.24h 07/24/18 11/27/18 Rx XL] Furosemide [Lasix] 40 mg PO Q48H 11/27/18 11/27/18 History Ipratropium-Albuterol Nebulize 3 ml INHALATION RT-QID PRN 11/27/18 11/27/18 History [Duoneb 0.5 mg-3 mg/3 ml Soln] Potassium Chloride 10 meq PO DAILY 11/27/18 11/27/18 History HYDROcodone/APAP 5-325MG [[place] 1 tab PO Q6HR PRN 11/28/18 11/28/18 History 5-325] Allergies Allergy/AdvReac Type Severity Reaction Status Date / Time Penicillins Allergy Mild Swelling Verified 11/27/18 21:48 Physical Exam Vitals: Vital Signs Temp Pulse Pulse Resp BP BP Pulse Ox 11/28/18 08:00 98.3 F 90 20 131/68 96 11/28/18 04:00 97.4 F L 88 20 140/71 95 11/28/18 03:10 97.4 F L 88 20 140/71 95 11/28/18 02:39 82 20 150/74 99 11/28/18 01:18 97.9 F 85 18 142/82 96 11/27/18 22:30 98.2 F 78 16 137/87 98 11/27/18 20:54 98.6 F 86 20 124/79 95 Intake and Output 11/27/18 11/28/18 11/28/18 22:59 06:59 14:59 Intake Total 120 230 Output Total 320 Balance 120 -90 Intake: Oral 120 230 Output: Urine 200 Post Void Residual 120 Other: Voiding Method Toilet Weight 81.647 kg 85.9 kg no acute distress s1 s2 herd lungs clear no edema Results - Lab Results Most recent lab results Calcium 6.8 mg/dL (8.4-10.2) L 11/28/18 09:29 Magnesium 2.1 mg/dL (1.6-2.3) 11/27/18 22:03 11/27/18 22:03 11/28/18 09:29 Assessment and Plan Assessment: 1. BJORN secondary to prerenal process from over diursis 2. CKD 4 secondary to suspected diabetic kidney disease. 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 HTN with CKD, Goal <140/90 4. Anemia with CKD. Goal 10-11 5. AGMA secondary to BJORN 7. Fll / Syncope. 8. Systolic CHF 9. Hyperkalemia secondary to Potassium supplements /acidosis Plan: 1. Creatinine and potassium improving 2. Start bicarb ggt @ 75 mls/her 3. Hold lasix and hctz, ifact hctz doesn't work with CKD4 Disease. 4. check iron studies and start on IV iron and BLAKE 5. Avoid nephrotoxins
[2018-11-28 10:56] LABS: Anisocytosis Slight; Basophils % (A) 0 %; Eosinophils # (A) 0.1 k/uL (0-0.7); Eosinophils % (A) 2 %; HCT 24.4 % (34.0-46.0); HGB 7.4 gm/dL (11.4-16.0); Hypochromasia Marked; Lymphocytes # (A) 0.7 k/uL (1.0-4.8); Lymphocytes % (A) 13 %; MCH 31.1 pg (25.0-35.0); MCHC 30.1 g/dL (31.0-37.0); MCV 103.2 fL (80.0-100.0); Macrocytosis Moderate; Mean Platelet Volume 7.8; Monocytes # (A) 0.3 k/uL (0-1.0); Monocytes % (A) 5 %; Neutrophils # (A) 4.6 k/uL (1.3-7.7); Neutrophils % (A) 79 %; Platelet Count 213 k/uL (150-450); Poikilocytosis Slight; RBC 2.36 m/uL (3.80-5.40); RDW 16.2 % (11.5-15.5); WBC 5.9 k/uL (3.8-10.6)
[2018-11-28] MEDS: ISOSORBIDE MONONITRATE ER 60 MG TAB.ER.24H PO SCH (11:49)
[2018-11-28] MEDS: DEXTROSE 5% IN WATER 1,000 ML with SODIUM BICARB (1 MEQ/ML) 150 ML IV SCH (11:52)
[2018-11-28 11:57] LABS: Glucose,Whole Blood 102 mg/dL (75-99)
[2018-11-28] MEDS ORDERED: IPRATROPIUM-ALBUTEROL 3 ML NEB INHALATION PRN (12:10)
[2018-11-28] MEDS: SYMBICORT 160-4.5 MCG INHALER INHALATION SCH ×2 (13:20→20:30)
--- NOTE | 2018-11-28 15:21 | P.HPIM ---
History of Present Illness H&P Date: 11/28/18 Chief Complaint: Fall, generalized weakness This is 63-year-old female transported by EMS to the ER, status post fall with generalized weakness in a patient with history of COPD, CHF, diabetes mellitus, hypertension, hyperlipidemia, seizure disorder, anxiety, bipolar, depression, history of nicotine abuse, occasional marijuana use and multiple other medical issues. States "legs gave out". Denies syncope. Denies incontinence of urine or bowel movement. States fell back and hit the back of her head. Recently patient developed earache/placed on Bactrim. Also takes bisoprolol-HCTZ, Lasix, denies NSAID use. Brain CT reported no acute process. EKG currently unable to open, appears to have been scanned. Troponins pending. Telemetry sinus rhythm to sinus tach, low 100s with bundle branch block. Denies chest pain or palpitations. Denies shortness of breath. Denies lightheadedness or dizziness, no focal deficits. Denies nausea vomiting or diarrhea. Creatinine 4.99 with a baseline of 2.5-3, Potassium 6.2, hemoglobin 7.4-Baseline 10, on admission. Bicarb 12. Received Kayexalate. Patient also presents with urinary retention.VSS, maintaining O2 sats in the 90s on 4 L nasal cannula( baseline). Review of Systems ROS Statement: Those systems with pertinent positive or pertinent negative responses have been documented in the HPI. ROS Other: All systems not noted in ROS Statement are negative. Past Medical History Past Medical History: COPD, Diabetes Mellitus, Hyperlipidemia, Hypertension, Seizure Disorder History of Any Multi-Drug Resistant Organisms: None Reported Past Surgical History: Hysterectomy Additional Past Surgical History / Comment(s): ESWL Past Anesthesia/Blood Transfusion Reactions: No Reported Reaction Past Psychological History: Anxiety, Bipolar, Depression Additional Psychological History / Comment(s): mother recently Smoking Status: Former smoker Past Alcohol Use History: None Reported Additional Past Alcohol Use History / Comment(s): pt. states she was a 2 pack a day smoker for many years and quit in 2016 Past Drug Use History: Marijuana, Prescription Drug Abuse Additional Drug Use History / Comment(s): pt. states she occassionally smokes marijuana - Past Family History Mother Family Medical History: Diabetes Mellitus, Hypertension Father Family Medical History: Hypertension Medications and Allergies Home Medications Medication Instructions Recorded Confirmed Type Phenytoin Sodium Extended 100 mg PO TID 11/29/15 11/27/18 History [Dilantin] Sertraline [Zoloft] 200 mg PO DAILY 11/29/15 11/27/18 History Folic Acid 1 mg PO DAILY 07/22/17 11/27/18 History QUEtiapine FUMARATE 150 mg PO HS@199907/22/17 11/27/18 History Gemfibrozil [Lopid] 1,200 mg PO HS 09/05/17 11/27/18 History Montelukast [Singulair] 10 mg PO HS #30 tab 12/26/17 11/27/18 Rx Sodium Bicarbonate Tab 1,300 mg PO BID #60 tab 02/23/18 11/27/18 Rx Bisoprolol-Hctz 5-6.25 mg [Ziac 1 tab PO DAILY 07/20/18 11/27/18 History 5-6.25 MG] Calcitriol 0.5 mcg PO MOWEFR 07/20/18 11/27/18 History Cyclobenzaprine [Flexeril] 5 mg PO BID PRN 07/20/18 11/27/18 History Omeprazole [PriLOSEC] 20 mg PO DAILY 07/20/18 11/27/18 History Primidone [Mysoline] 50 mg PO BID 07/20/18 11/27/18 History Isosorbide Mononitrate ER [Imdur] 60 mg PO DAILY #30 tab.er.24h 07/24/18 11/27/18 Rx Metoprolol Succinate (ER) [Toprol 50 mg PO DAILY #30 tab.er.24h 07/24/18 11/27/18 Rx XL] Furosemide [Lasix] 40 mg PO Q48H 11/27/18 11/27/18 History Ipratropium-Albuterol Nebulize 3 ml INHALATION RT-QID PRN 11/27/18 11/27/18 History [Duoneb 0.5 mg-3 mg/3 ml Soln] Potassium Chloride 10 meq PO DAILY 11/27/18 11/27/18 History HYDROcodone/APAP 5-325MG [[place] 1 tab PO Q6HR PRN 11/28/18 11/28/18 History 5-325] Allergies Allergy/AdvReac Type Severity Reaction Status Date / Time Penicillins Allergy Mild Swelling Verified 07/04/19 21:48 Physical Exam Vitals: Vital Signs Temp Pulse Pulse Resp BP BP Pulse Ox 11/28/18 08:00 98.3 F 90 20 131/68 96 11/28/18 04:00 97.4 F L 88 20 140/71 95 11/28/18 03:10 97.4 F L 88 20 140/71 95 11/28/18 02:39 82 20 150/74 99 11/28/18 01:18 97.9 F 85 18 142/82 96 11/27/18 22:30 98.2 F 78 16 137/87 98 11/27/18 20:54 98.6 F 86 20 124/79 95 Intake and Output 11/27/18 11/28/18 11/28/18 22:59 06:59 14:59 Intake Total 120 230 Balance 120 230 Intake: Oral 120 230 Other: Voiding Method Toilet Weight 81.647 kg 85.9 kg PHYSICAL EXAM: VITAL SIGNS: As above GENERAL: Sitting up at side of bed, no acute distress HEENT: Conjunctivae normal. eyes normal. Oral mucosa moist NECK: No JVD. No thyroid enlargement. No LNs CARDIOVASCULAR: S1, S2 regular.. No murmur RESPIRATION: Breath sounds diminished in the bases. No rhonchi or crackles. No wheezing, No bronchial breathing. ABDOMEN: Soft, nontender . No guarding. no masses palpable. No ascites, No hepatosplenomegaly.Bowel sounds heard. LEGS: No edema. no swelling PSYCHIATRY: Alert and oriented X3, mood and affect normal. NERVOUS SYSTEM: Cranial N 2-12 grossly normal. Moves all 4 limbs. Diffuse weakness No focal deficits. Strength and sensation grossly intact.. Skin: no lesions, no rash Lymphatic system. No LN neck axilla or groin. Results CBC & Chem 7: 11/28/18 09:29 11/28/18 09:29 Labs: Abnormal Lab Results - Last 24 Hours (Table) 11/27/18 11/27/18 11/28/18 Range/Units 22:03 22:03 01:44 RBC 2.43 L (3.80-5.40) m/uL Hgb 7.4 L (11.4-16.0) gm/dL Hct 24.7 L (34.0-46.0) % MCV 101.4 H (80.0-100.0) fL MCHC 29.8 L (31.0-37.0) g/dL RDW 15.8 H (11.5-15.5) % Lymphocytes # 0.7 L (1.0-4.8) k/uL Potassium 6.2 H* (3.5-5.1) mmol/L Chloride 116 H (98-107) mmol/L Carbon Dioxide 12 L (22-30) mmol/L BUN 63 H (7-17) mg/dL Creatinine 4.99 H (0.52-1.04) mg/dL Glucose 112 H (74-99) mg/dL POC Glucose (mg/dL) (75-99) mg/dL Calcium 6.6 L (8.4-10.2) mg/dL Alkaline Phosphatase 234 H (38-126) U/L Ammonia (<30) umol/L Urine Protein 2+ H (Negative) Urine Mucus Rare H (None) /hpf 11/28/18 11/28/18 Range/Units 02:08 06:00 RBC (3.80-5.40) m/uL Hgb (11.4-16.0) gm/dL Hct (34.0-46.0) % MCV (80.0-100.0) fL MCHC (31.0-37.0) g/dL RDW (11.5-15.5) % Lymphocytes # (1.0-4.8) k/uL Potassium (3.5-5.1) mmol/L Chloride (98-107) mmol/L Carbon Dioxide (22-30) mmol/L BUN (7-17) mg/dL Creatinine (0.52-1.04) mg/dL Glucose (74-99) mg/dL POC Glucose (mg/dL) 184 H (75-99) mg/dL Calcium (8.4-10.2) mg/dL Alkaline Phosphatase (38-126) U/L Ammonia 41 H (<30) umol/L Urine Protein (Negative) Urine Mucus (None) /hpf Thrombosis Risk Factor Assmnt - Choose All That Apply Any of the Below Risk Factors Present?: Yes Each Factor Represents 1 point: Obesity (BMI >25), Varicose veins Other Risk Factors: Yes Each Risk Factor Represents 2 Points: Age 61-74 years Thrombosis Risk Factor Assessment Total Risk Factor Score: 4 Thrombosis Risk Factor Assessment Level: Moderate Risk Assessment and Plan Assessment: -Acute on chronic renal failure stage IV, in a patient who had been on Bactrim, bisoprolol-HCTZ, Lasix. denies NSAID use. Baseline creatinine 2.5-3. -Hyperkalemia secondary to the above -Acute on chronic anemia, baseline 10 -Fall with generalized weakness -Chronic respiratory failure, wears 4 L nasal cannula O2 at home. -COPD -Diabetes mellitus -Hyperlipidemia -Hypertension -Seizure disorder -Anxiety, depression -Bipolar -History of nicotine abuse -Occasional marijuana use -Chronic systolic CHF Plan: Continue current medication regime ,monitoring and symptomatic treatment. Potassium level down to 5.4 this morning, Repeat another dose of Kayexalate. Dilantin level ordered to verify at a therapeutic level. Nephrology consult ed/sodium bicarb drip initiated. Close monitoring of renal function and electrolytes with repeat labs ordered. for a.m. GI prophylaxis in place. Patient to receive scheduled and prn nebulized bronchodilators. PT/OT consulted. Home meds have been reviewed and resumed. Avoid nephrotoxic agents. Bactrim, Bisprolol discontinued. Lasix on hold. Further recommendations to follow. The impression and plan of care has been dictated as directed. : I performed a history and examination of this patient, discussed the same with the dictator. I agree with the dictator's note ,documented as a scribe. Any additional findings or plans will be noted. Time taken: 35 minutes -
[2018-11-28] MEDS: HYDROcodone/APAP 5-325MG 1 EACH TAB PO PRN (16:40)
[2018-11-28] MEDS: IPRATROPIUM-ALBUTEROL 3 ML NEB INHALATION PRN ×2 (16:48→20:30)
[2018-11-28 16:50] LABS: Glucose,Whole Blood 137 mg/dL (75-99)
[2018-11-28 20:27] LABS: Glucose,Whole Blood 183 mg/dL (75-99)
[2018-11-28] MEDS: QUEtiapine 50 MG TAB PO SCH (20:41)
[2018-11-28] MEDS: FENOFIBRATE 160 MG TAB PO SCH (20:41)
[2018-11-28] MEDS: MONTELUKAST 10 MG TAB PO SCH (20:41)
[2018-11-29] MEDS: DEXTROSE 5% IN WATER 1,000 ML with SODIUM BICARB (1 MEQ/ML) 150 ML IV SCH ×2 (02:40→16:47)
[2018-11-29] MEDS: HYDROcodone/APAP 5-325MG 1 EACH TAB PO PRN ×3 (02:51→14:04)
[2018-11-29 06:10] LABS: Glucose,Whole Blood 130 mg/dL (75-99)
[2018-11-29] MEDS: PANTOPRAZOLE 40 MG TABLET PO SCH (06:23)
[2018-11-29 06:31] LABS: Albumin 3.3 g/dL (3.5-5.0); Potassium 4.2 mmol/L (3.5-5.1); Total Bilirubin 0.3 mg/dL (0.2-1.3); Total Protein 6.1 g/dL (6.3-8.2)
[2018-11-29 06:32] LABS: Anisocytosis Slight; Basophils % (A) 0 %; Eosinophils # (A) 0.1 k/uL (0-0.7); Eosinophils % (A) 3 %; Hypochromasia Marked; Lymphocytes # (A) 0.7 k/uL (1.0-4.8); Lymphocytes % (A) 17 %; MCH 30.9 pg (25.0-35.0); MCV 99.7 fL (80.0-100.0); Macrocytosis Slight; Mean Platelet Volume 7.3; Monocytes # (A) 0.3 k/uL (0-1.0); Monocytes % (A) 7 %; Neutrophils # (A) 2.8 k/uL (1.3-7.7); Neutrophils % (A) 69 %; Platelet Count 212 k/uL (150-450); Poikilocytosis Slight; RBC 2.11 m/uL (3.80-5.40); RDW 16.4 % (11.5-15.5)
[2018-11-29 06:39] LABS: Calcium 6.4 mg/dL (8.4-10.2); HGB 6.5 gm/dL (11.4-16.0)
[2018-11-29] MEDS: SYMBICORT 160-4.5 MCG INHALER INHALATION SCH ×2 (08:30→20:31)
[2018-11-29] MEDS: FOLIC ACID 1 MG TAB PO SCH (08:50)
[2018-11-29] MEDS: METOPROLOL SUCCINATE (ER) 50 MG TAB.ER.24H PO SCH (08:50)
[2018-11-29] MEDS: SERTRALINE 100 MG TAB PO SCH (08:50)
[2018-11-29] MEDS: PRIMIDONE 50 MG TAB PO SCH ×2 (08:50→20:49)
[2018-11-29] MEDS: ISOSORBIDE MONONITRATE ER 60 MG TAB.ER.24H PO SCH (08:50)
[2018-11-29] MEDS: PHENYTOIN SODIUM EXTENDED 100 MG CAP PO SCH ×3 (08:50→20:49)
[2018-11-29] MEDS ORDERED: DARBEPOETIN ALFA 60 MCG/0.3 ML SYRINGE SQ SCH (09:00)
--- NOTE | 2018-11-29 09:09 | PN ---
PROGRESS NOTE Patient is seen for followup for acute kidney injury. She was admitted to the hospital with hyperkalemia and acute kidney injury. Currently, patient is maintained on the IV fluids in the form of IV bicarb. Her creatinine is slightly improved to 3.86 from 4.65 on initial admission. The patient states she has been voiding. This morning, her hemoglobin was 6.5 g/dL. No active bleeding noted per patient. PHYSICAL EXAMINATION: On examination, blood pressure this morning 141/85, heart rate 95 per minute. She is afebrile. Examination of the heart S1, S2. Examination of the lungs, bilateral breath sounds are heard. Abdomen is soft, nontender. Examination of lower extremities shows no significant edema. NEUROPHYSIOLOGIST exam is grossly intact. LABS: Show sodium 142, potassium 4.2, chloride 111, CO2 of 20, BUN 61, serum creatinine 3.86, hemoglobin 6.5 g/dL. ASSESSMENT: 1. Chronic kidney disease. Stage IV secondary to diabetic nephropathy. Baseline creatinine 2.8-3.2 mg/dL. 2. Hypertension with chronic kidney disease. 3. Acute kidney injury associated with recent diuresis as well as from the significant anemia. 4. Metabolic acidosis and anion gap secondary to renal failure, maintained on bicarb drip and currently improved. 5. Hyperkalemia associated with metabolic acidosis, acute kidney injury and potassium supplementation, currently improved. 6. Anemia, rule out underlying iron deficiency and iron deficiency versus and/gastrointestinal bleed. PLAN: Continue to hold off on the diuretics for now. Transfuse packed RBCs. Continue with the bicarb drip. Repeat labs in a.m. Check stool for occult blood. Check iron studies and we will start patient on Aranesp as well. MMODL / IJN: [id number] /
[2018-11-29] MEDS ORDERED: CALCIUM GLUCONATE 1 GM in SODIUM CHLORIDE 0.9% 100 ML IVPB ONE (10:00)
[2018-11-29 11:55] LABS: Glucose,Whole Blood 88 mg/dL (75-99)
--- NOTE | 2018-11-29 12:05 | P.PN ---
Subjective This is 63-year-old female transported by EMS to the ER, status post fall with generalized weakness in a patient with history of COPD, CHF, diabetes mellitus, hypertension, hyperlipidemia, seizure disorder, anxiety, bipolar, depression, history of nicotine abuse, occasional marijuana use and multiple other medical issues. States "legs gave out". Denies syncope. Denies incontinence of urine or bowel movement. States fell back and hit the back of her head. Recently patient developed earache/placed on Bactrim. Also takes bisoprolol-HCTZ, Lasix, denies NSAID use. Brain CT reported no acute process. EKG currently unable to open, appears to have been scanned. Troponins pending. Telemetry sinus rhythm to sinus tach, low 100s with bundle branch block. Denies chest pain or palpitations. Denies shortness of breath. Denies lightheadedness or dizziness, no focal deficits. Denies nausea vomiting or diarrhea. Creatinine 4.99 with a baseline of 2.5-3, Potassium 6.2, hemoglobin 7.4-Baseline 10, on admission. Bicarb 12. Received Kayexalate. Patient also presents with urinary retention.VSS, maintaining O2 sats in the 90s on 4 L nasal cannula( baseline). 11/29/2018: hemoglobin 7.4 on admission is now down to 6.5. Her potassium nica ginally at 6.5, is now down to 4.2. Her GFR is improved from 9 to 12. Her creatinine is improved from 4.9 down to 3.86. Due to her CHF, they did not rehydrate her very much. IV fluids were started yesterday of D5 at 75 mL per hour. She has not stooled since admission and denied any hematochezia or melena. Currently she denies any chest pains, pressures, or shortness of breath. She denies any nausea or vomiting. Nephrology is seen her and recommendations are noted. She spent a transfusion 1 unit packed red blood cells. Objective - Vital Signs Vital signs: Vital Signs Temp 98 F 11/29/18 08:00 Pulse 87 11/29/18 11:46 Resp 17 11/29/18 11:46 BP 139/82 11/29/18 11:46 Pulse Ox 95 11/29/18 11:46 Intake & Output 11/28/18 11/29/18 11/29/18 18:59 06:59 18:59 Intake Total 710 200 Output Total 820 1400 300 Balance -110 -1200 -300 Weight 86.1 kg Intake: Oral 710 200 Output: Urine 700 1400 300 Post Void Residual 120 Other: Voiding Method Toilet Bedside Commode # Voids 1 1 # Bowel Movements 1 - Exam GENERAL: Sitting up at side of bed, no acute distress NECK: No JVD. No thyroid enlargement. No LNs CARDIOVASCULAR: S1, S2 regular.. No murmur RESPIRATION: Breath sounds diminished in the bases. No rhonchi or crackles. No wheezing, No bronchial breathing. ABDOMEN: Soft, nontender . No guarding. no masses palpable. No ascites, No hepatosplenomegaly.Bowel sounds heard. LEGS: No edema. no swelling there is pain to palpation left calf and a positive Homans sign. PSYCHIATRY: Alert and oriented X3, mood and affect normal. NERVOUS SYSTEM: Cranial N 2-12 grossly normal. Moves all 4 limbs. Diffuse weakness No focal deficits. Strength and sensation grossly intact.. Skin: no lesions, no rash Lymphatic system. No LN neck axilla or groin. - Labs CBC & Chem 7: 11/29/18 05:52 11/29/18 05:52 Labs: Abnormal Lab Results - Last 24 Hours (Table) 11/28/18 11/28/18 11/29/18 Range/Units 16:48 20:26 05:52 RBC 2.11 L (3.80-5.40) m/uL Hgb 6.5 L* (11.4-16.0) gm/dL Hct 21.0 L (34.0-46.0) % RDW 16.4 H (11.5-15.5) % Lymphocytes # 0.7 L (1.0-4.8) k/uL Chloride (98-107) mmol/L Carbon Dioxide (22-30) mmol/L BUN (7-17) mg/dL Creatinine (0.52-1.04) mg/dL Glucose (74-99) mg/dL POC Glucose (mg/dL) 137 H 183 H (75-99) mg/dL Calcium (8.4-10.2) mg/dL AST (14-36) U/L Alkaline Phosphatase (38-126) U/L Total Protein (6.3-8.2) g/dL Albumin (3.5-5.0) g/dL 11/29/18 11/29/18 Range/Units 05:52 05:57 RBC (3.80-5.40) m/uL Hgb (11.4-16.0) gm/dL Hct (34.0-46.0) % RDW (11.5-15.5) % Lymphocytes # (1.0-4.8) k/uL Chloride 111 H (98-107) mmol/L Carbon Dioxide 20 L (22-30) mmol/L BUN 61 H (7-17) mg/dL Creatinine 3.86 H (0.52-1.04) mg/dL Glucose 110 H (74-99) mg/dL POC Glucose (mg/dL) 130 H (75-99) mg/dL Calcium 6.4 L* (8.4-10.2) mg/dL AST 12 L (14-36) U/L Alkaline Phosphatase 201 H (38-126) U/L Total Protein 6.1 L (6.3-8.2) g/dL Albumin 3.3 L (3.5-5.0) g/dL Assessment and Plan (1) Hyperkalemia Current Visit: Yes Status: Acute Code(s): E87.5 - HYPERKALEMIA SNOMED Code(s): 37008678 (2) Acute kidney failure Current Visit: No Status: Acute Code(s): N17.9 - ACUTE KIDNEY FAILURE, UNSPECIFIED SNOMED Code(s): 63921622 (3) Essential (primary) hypertension Current Visit: Yes Status: Acute Code(s): I10 - ESSENTIAL (PRIMARY) HYPERTENSION SNOMED Code(s): 78996733 (4) Pure hypercholesterolemia Current Visit: Yes Status: Acute Code(s): E78.00 - PURE HYPERCHOLESTEROLEMIA, UNSPECIFIED SNOMED Code(s): 394142491 (5) Weakness Current Visit: Yes Status: Acute Code(s): R53.1 - WEAKNESS SNOMED Code(s): 55080323 (6) Anemia Current Visit: Yes Status: Acute Code(s): D64.9 - ANEMIA, UNSPECIFIED SNOMED Code(s): 745084871 (7) Fall Current Visit: Yes Status: Acute Code(s): W19.XXXA - UNSPECIFIED FALL, INITIAL ENCOUNTER SNOMED Code(s): 3953655 (8) COPD (chronic obstructive pulmonary disease) Current Visit: No Status: Acute Code(s): J44.9 - CHRONIC OBSTRUCTIVE PULMONARY DISEASE, UNSPECIFIED SNOMED Code(s): 66268480 (9) Chronic renal failure syndrome Current Visit: No Status: Acute Code(s): N18.9 - CHRONIC KIDNEY DISEASE, UNSPECIFIED SNOMED Code(s): 36044180 (10) Diabetes Current Visit: No Status: Acute Code(s): E11.9 - TYPE 2 DIABETES MELLITUS WITHOUT COMPLICATIONS SNOMED Code(s): 90382934 (11) Noncompliance Current Visit: No Status: Acute Code(s): Z91.19 - PATIENT'S NONCOMPLIANCE W OTH MEDICAL TREATMENT AND REGIMEN SNOMED Code(s): 5708669 (12) Seizure disorder Current Visit: No Status: Acute Code(s): G40.909 - EPILEPSY, UNSP, NOT INTRACTABLE, WITHOUT STATUS EPILEPTICUS SNOMED Code(s): 064215242 (13) Systolic congestive heart failure Current Visit: No Status: Acute Code(s): I50.20 - UNSPECIFIED SYSTOLIC (CONGESTIVE) HEART FAILURE SNOMED Code(s): 30264496 (14) Bipolar 1 disorder Current Visit: Yes Status: Acute Code(s): F31.9 - BIPOLAR DISORDER, UNSPECIFIED SNOMED Code(s): 650993182 Plan: She will see one unit of packed red blood cells. She'll remain on IV fluids. Wait on further recommendations from nephrology. They've added bicarbonate. Repeat labs in am. She'll be reevaluated next 24 hours.
--- NOTE | 2018-11-29 13:25 | US ---
EXAMINATION TYPE: US venous doppler duplex LE LT DATE OF EXAM: 11/29/2018 1:15 PM COMPARISON: NONE CLINICAL HISTORY: Evaluate for deep vein thrombosis. Left leg pain patient fell. SIDE PERFORMED: Left TECHNIQUE: The lower extremity deep venous system is examined utilizing real time linear array sonog pio with graded compression, doppler sonography and color-flow sonography. VESSELS IMAGED: External Iliac Vein (EIV) Common Femoral Vein Deep Femoral Vein Greater Saphenous Vein * Femoral Vein Popliteal Vein Small Saphenous Vein * Proximal Calf Veins (* superficial vessels) Left Leg: Negative for DVT IMPRESSION: 1. No diagnostic evidence of DVT.
[2018-11-29 16:59] LABS: Glucose,Whole Blood 178 mg/dL (75-99)
[2018-11-29] MEDS: FENOFIBRATE 160 MG TAB PO SCH (20:49)
[2018-11-29] MEDS: MONTELUKAST 10 MG TAB PO SCH (20:49)
[2018-11-29] MEDS: QUEtiapine 50 MG TAB PO SCH (20:49)
[2018-11-29 20:57] LABS: Glucose,Whole Blood 160 mg/dL (75-99)
[2018-11-30] MEDS: HYDROcodone/APAP 5-325MG 1 EACH TAB PO PRN ×4 (00:34→17:59)
[2018-11-30] MEDS: DEXTROSE 5% IN WATER 1,000 ML with SODIUM BICARB (1 MEQ/ML) 150 ML IV SCH (02:29)
[2018-11-30] MEDS: PANTOPRAZOLE 40 MG TABLET PO SCH (06:12)
[2018-11-30 06:33] LABS: Glucose,Whole Blood 119 mg/dL (75-99)
[2018-11-30 06:53] LABS: Anisocytosis Slight; Basophils % (A) 0 %; Eosinophils # (A) 0.2 k/uL (0-0.7); Eosinophils % (A) 4 %; HCT 26.2 % (34.0-46.0); Hypochromasia Moderate; Lymphocytes # (A) 0.8 k/uL (1.0-4.8); Lymphocytes % (A) 19 %; MCHC 30.9 g/dL (31.0-37.0); MCV 97.3 fL (80.0-100.0); Mean Platelet Volume 7.6; Monocytes # (A) 0.4 k/uL (0-1.0); Monocytes % (A) 8 %; Neutrophils % (A) 67 %; Platelet Count 241 k/uL (150-450); Poikilocytosis Slight; RBC 2.69 m/uL (3.80-5.40); RDW 16.4 % (11.5-15.5); WBC 4.4 k/uL (3.8-10.6)
[2018-11-30 07:05] LABS: HGB 8.1 gm/dL (11.4-16.0)
[2018-11-30] MEDS: SYMBICORT 160-4.5 MCG INHALER INHALATION SCH ×2 (07:14→19:45)
[2018-11-30 07:23] LABS: Calcium 6.4 mg/dL (8.4-10.2)
[2018-11-30] MEDS: FOLIC ACID 1 MG TAB PO SCH (09:14)
[2018-11-30] MEDS: ISOSORBIDE MONONITRATE ER 60 MG TAB.ER.24H PO SCH (09:14)
[2018-11-30] MEDS: PHENYTOIN SODIUM EXTENDED 100 MG CAP PO SCH ×3 (09:14→21:25)
[2018-11-30] MEDS: PRIMIDONE 50 MG TAB PO SCH ×2 (09:14→21:25)
[2018-11-30] MEDS: METOPROLOL SUCCINATE (ER) 50 MG TAB.ER.24H PO SCH (09:14)
[2018-11-30] MEDS: SERTRALINE 100 MG TAB PO SCH (09:14)
[2018-11-30] MEDS: ACETAMINOPHEN TAB 325 MG TAB PO PRN ×2 (09:35→21:29)
[2018-11-30] MEDS: SODIUM CHLORIDE 0.45% 1,000 ML IV SCH (11:07)
--- NOTE | 2018-11-30 11:59 | PN ---
PROGRESS NOTE The patient is seen for followup for acute kidney injury. The patient is currently maintained on IV fluids. Renal function has improved. She was also acidotic and is maintained on IV bicarb. Serum creatinine is down from 4.9 to 3.0 today. Overall, patient states she is feeling fair. Hemoglobin was 6.5 yesterday. Patient did get transfused one unit packed RBCs. It is up to 8.1. She denies any ongoing bleeding. PHYSICAL EXAMINATION: On examination, blood pressure was 125/95, heart rate 108 per minute. She is afebrile. Examination of the heart S1, S2. Examination of the lungs, bilateral breath sounds are heard. Abdomen is soft, nontender. Exam lower extremities shows no significant edema. WORKDAY SENIOR ASSOCIATE exam grossly intact. LAB: Show sodium 146, potassium 4.0, chloride 111, CO2 is 26, BUN 51, serum creatinine 3.0, hemoglobin 8.1 g/dL, calcium 6.4. Vitamin D was 4.8. ASSESSMENT: 1. Acute kidney injury, prerenal, currently improving with IV fluids. Change IV fluids to half-normal saline. 2. Metabolic acidosis associated with renal failure, currently improved. I will discontinue the IV bicarb. The patient is maintained on oral sodium bicarb. 3. Hypocalcemia associated with severe nutrition vitamin D deficiency. I will start the patient on vitamin D supplementation. 4. Anemia with no active bleeding noted, status post one unit packed RBCs. Stool for occult blood has been ordered. PLAN: Change IV fluids to half-normal saline. Continue with oral sodium bicarb. Repeat labs in a.m. MMODL / IJN: [id number] /
[2018-11-30 12:15] LABS: Glucose,Whole Blood 117 mg/dL (75-99)
[2018-11-30] MEDS: ERGOCALCIFEROL 50,000 UNIT CAP PO SCH (12:28)
[2018-11-30] MEDS ORDERED: CALCIUM GLUCONATE 1 GM in SODIUM CHLORIDE 0.9% 100 ML IVPB ONE (13:00)
--- NOTE | 2018-11-30 13:06 | P.PN ---
Subjective This is 63-year-old female transported by EMS to the ER, status post fall with generalized weakness in a patient with history of COPD, CHF, diabetes mellitus, hypertension, hyperlipidemia, seizure disorder, anxiety, bipolar, depression, history of nicotine abuse, occasional marijuana use and multiple other medical issues. States "legs gave out". Denies syncope. Denies incontinence of urine or bowel movement. States fell back and hit the back of her head. Recently patient developed earache/placed on Bactrim. Also takes bisoprolol-HCTZ, Lasix, denies NSAID use. Brain CT reported no acute process. EKG currently unable to open, appears to have been scanned. Troponins pending. Telemetry sinus rhythm to sinus tach, low 100s with bundle branch block. Denies chest pain or palpitations. Denies shortness of breath. Denies lightheadedness or dizziness, no focal deficits. Denies nausea vomiting or diarrhea. Creatinine 4.99 with a baseline of 2.5-3, Potassium 6.2, hemoglobin 7.4-Baseline 10, on admission. Bicarb 12. Received Kayexalate. Patient also presents with urinary retention.VSS, maintaining O2 sats in the 90s on 4 L nasal cannula( baseline). 11/29/2018: hemoglobin 7.4 on admission is now down to 6.5. Her potassium nica ginally at 6.5, is now down to 4.2. Her GFR is improved from 9 to 12. Her creatinine is improved from 4.9 down to 3.86. Due to her CHF, they did not rehydrate her very much. IV fluids were started yesterday of D5 at 75 mL per hour. She has not stooled since admission and denied any hematochezia or melena. Currently she denies any chest pains, pressures, or shortness of breath. She denies any nausea or vomiting. Nephrology is seen her and recommendations are noted. She spent a transfusion 1 unit packed red blood cells. 11/30/2018: Patient's hemoglobin is now 8.1. She tells me she does not feel well. Her GFR is now improved to 16. Her creatinine is 3.0. Her calcium remains low at 6.4. She received 1 g of calcium gluconate yesterday. She remains on sodium bicarbonate. Incidental finding of abnormal troponin at 0.05 for today. Previous 3 done 2 days ago were all normal. She denies any chest pains, shortness of breath, nausea vomiting. She remains on oxygen at 3 L via nasal cannula. He does complain of left ear pain. Indicated is been going on for a month. Objective - Vital Signs Vital signs: Vital Signs Temp 97.8 F 11/30/18 08:20 Pulse 108 H 11/30/18 08:20 Resp 18 11/30/18 08:20 BP 125/95 11/30/18 08:20 Pulse Ox 94 L 11/30/18 08:20 Intake & Output 11/29/18 11/30/18 11/30/18 18:59 06:59 18:59 Intake Total 1165 600 Output Total 300 Balance 865 600 Weight 85.3 kg Intake: Intake, IV Titration 615 350 Amount Calcium Gluconate 1 gm In 100 Sodium Chloride 0.9% 100 ml @ 100 mls/hr IVPB ONCE ONE Rx#:[id number] Dextrose 5% in Water 1, 515 350 000 ml @ 75 mls/hr IV . [id number] BHAVIK with Sodium Bicarb (1 Meq/ml) 150 ml Rx#:[id number] Oral 240 250 Blood Product 310 Rc As-1 Unit 310 [id number] Output: Urine 300 Other: Voiding Method Bedside Commode # Voids 1 3 # Bowel Movements 1 1 - Exam GENERAL: Sitting up at side of bed, no acute distress HEENT: Tympanogram on the left is slightly erythematous, TD 1, on the right normal, bilateral ear canals are normal. There is mild cerumen bilaterally. NECK: No JVD. No thyroid enlargement. No LNs CARDIOVASCULAR: S1, S2 regular.. No murmur RESPIRATION: Breath sounds diminished in the bases. No rhonchi or crackles. No wheezing, No bronchial breathing. ABDOMEN: Soft, nontender . No guarding. no masses palpable. No ascites, No hepatosplenomegaly.Bowel sounds heard. LEGS: No edema. no swelling there is pain to palpation left calf and a positive Homans sign. PSYCHIATRY: Alert and oriented X3, mood and affect normal. NERVOUS SYSTEM: Cranial N 2-12 grossly normal. Moves all 4 limbs. Diffuse weakness No focal deficits. Strength and sensation grossly intact.. Skin: no lesions, no rash Lymphatic system. No LN neck axilla or groin. - Labs CBC & Chem 7: 11/30/18 06:31 11/30/18 06:31 Labs: Abnormal Lab Results - Last 24 Hours (Table) 11/29/18 11/29/18 11/29/18 Range/Units 05:52 10:13 16:44 RBC (3.80-5.40) m/uL Hgb (11.4-16.0) gm/dL Hct (34.0-46.0) % MCHC (31.0-37.0) g/dL RDW (11.5-15.5) % Lymphocytes # (1.0-4.8) k/uL Sodium (137-145) mmol/L Chloride (98-107) mmol/L BUN (7-17) mg/dL Creatinine (0.52-1.04) mg/dL Glucose (74-99) mg/dL POC Glucose (mg/dL) 178 H (75-99) mg/dL Calcium (8.4-10.2) mg/dL Troponin I (0.000-0.034) ng/mL Vitamin D 25-Hydroxy 4.8 L (30.0-100.0) ng/mL Crossmatch See Detail 11/29/18 11/30/18 11/30/18 Range/Units 20:37 06:31 06:31 RBC 2.69 L (3.80-5.40) m/uL Hgb 8.1 L D (11.4-16.0) gm/dL Hct 26.2 L (34.0-46.0) % MCHC 30.9 L (31.0-37.0) g/dL RDW 16.4 H (11.5-15.5) % Lymphocytes # 0.8 L (1.0-4.8) k/uL Sodium (137-145) mmol/L Chloride (98-107) mmol/L BUN (7-17) mg/dL Creatinine (0.52-1.04) mg/dL Glucose (74-99) mg/dL POC Glucose (mg/dL) 160 H (75-99) mg/dL Calcium (8.4-10.2) mg/dL Troponin I 0.054 H* (0.000-0.034) ng/mL Vitamin D 25-Hydroxy (30.0-100.0) ng/mL Crossmatch 07/07/19 07/07/19 07/07/19 Range/Units 06:31 06:32 11:54 RBC (3.80-5.40) m/uL Hgb (11.4-16.0) gm/dL Hct (34.0-46.0) % MCHC (31.0-37.0) g/dL RDW (11.5-15.5) % Lymphocytes # (1.0-4.8) k/uL Sodium 146 H (137-145) mmol/L Chloride 111 H (98-107) mmol/L BUN 51 H (7-17) mg/dL Creatinine 3.00 H (0.52-1.04) mg/dL Glucose 108 H (74-99) mg/dL POC Glucose (mg/dL) 119 H 117 H (75-99) mg/dL Calcium 6.4 L* (8.4-10.2) mg/dL Troponin I (0.000-0.034) ng/mL Vitamin D 25-Hydroxy (30.0-100.0) ng/mL Crossmatch Assessment and Plan (1) Hyperkalemia Current Visit: Yes Status: Acute Code(s): E87.5 - HYPERKALEMIA SNOMED Code(s): 47089855 (2) Acute kidney failure Current Visit: No Status: Acute Code(s): N17.9 - ACUTE KIDNEY FAILURE, UNSPECIFIED SNOMED Code(s): 69485730 (3) Essential (primary) hypertension Current Visit: Yes Status: Acute Code(s): I10 - ESSENTIAL (PRIMARY) HYPERTENSION SNOMED Code(s): 00167973 (4) Pure hypercholesterolemia Current Visit: Yes Status: Acute Code(s): E78.00 - PURE HYPERCHOLESTERO LEMIA, UNSPECIFIED SNOMED Code(s): 627516505 (5) Weakness Current Visit: Yes Status: Acute Code(s): R53.1 - WEAKNESS SNOMED Code(s): 39065879 (6) Anemia Current Visit: Yes Status: Acute Code(s): D64.9 - ANEMIA, UNSPECIFIED SNOMED Code(s): 423302587 (7) Fall Current Visit: Yes Status: Acute Code(s): W19.XXXA - UNSPECIFIED FALL, INITIAL ENCOUNTER SNOMED Code(s): 0045483 (8) COPD (chronic obstructive pulmonary disease) Current Visit: No Status: Acute Code(s): J44.9 - CHRONIC OBSTRUCTIVE PULMONARY DISEASE, UNSPECIFIED SNOMED Code(s): 90593426 (9) Chronic renal failure syndrome Current Visit: No Status: Acute Code(s): N18.9 - CHRONIC KIDNEY DISEASE, UNSPECIFIED SNOMED Code(s): 52062269 (10) Diabetes Current Visit: No Status: Acute Code(s): E11.9 - TYPE 2 DIABETES MELLITUS WITHOUT COMPLICATIONS SNOMED Code(s): 12524105 (11) Noncompliance Current Visit: No Status: Acute Code(s): Z91.19 - PATIENT'S NONCOMPLIANCE W OTH MEDICAL TREATMENT AND REGIMEN SNOMED Code(s): 6951229 (12) Seizure disorder Current Visit: No Status: Acute Code(s): G40.909 - EPILEPSY, UNSP, NOT INTRACTABLE, WITHOUT STATUS EPILEPTICUS SNOMED Code(s): 608842440 (13) Systolic congestive heart failure Current Visit: No Status: Acute Code(s): I50.20 - UNSPECIFIED SYSTOLIC (CONGESTIVE) HEART FAILURE SNOMED Code(s): 37738201 (14) Bipolar 1 disorder Current Visit: Yes Status: Acute Code(s): F31.9 - BIPOLAR DISORDER, UNSPECIFIED SNOMED Code(s): 069771303 (15) Hypocalcemia Current Visit: Yes Status: Acute Code(s): E83.51 - HYPOCALCEMIA SNOMED Cod e(s): 4304997 (16) Elevated troponin Current Visit: Yes Status: Acute Code(s): R74.8 - ABNORMAL LEVELS OF OTHER SERUM ENZYMES SNOMED Code(s): 757828538 (17) Otitis media Current Visit: Yes Status: Acute Code(s): H66.90 - OTITIS MEDIA, UNSPECIFIED, UNSPECIFIED EAR SNOMED Code(s): 80252665 Plan: Wait on further recommendations from nephrology. She continues on sodium bicarbonate. We'll add another gram of calcium gluconate. We'll repeat troponins. Consult cardiology Add Floxin necrotic or similar type ear drop for her otitis. Repeat labs in am. She'll be reevaluated next 24 hours.
[2018-11-30] MEDS: CIPROFLOXACIN-DEXAMETH 0.3-0.1% DROPS 7.5 ML BTL LEFT EAR SCH ×2 (13:36→21:24)
[2018-11-30 17:02] LABS: Glucose,Whole Blood 113 mg/dL (75-99)
[2018-11-30 21:16] LABS: Glucose,Whole Blood 113 mg/dL (75-99)
[2018-11-30] MEDS: MONTELUKAST 10 MG TAB PO SCH (21:25)
[2018-11-30] MEDS: FENOFIBRATE 160 MG TAB PO SCH (21:25)
[2018-11-30] MEDS: QUEtiapine 50 MG TAB PO SCH (21:25)
[2018-12-01] MEDS: HYDROcodone/APAP 5-325MG 1 EACH TAB PO PRN ×4 (00:30→21:57)
[2018-12-01 06:07] LABS: Glucose,Whole Blood 99 mg/dL (75-99)
[2018-12-01] MEDS: PANTOPRAZOLE 40 MG TABLET PO SCH (06:34)
[2018-12-01] MEDS: SODIUM CHLORIDE 0.45% 1,000 ML IV SCH (06:50)
--- NOTE | 2018-12-01 07:28 | XR ---
EXAMINATION TYPE: XR chest 2V DATE OF EXAM: 12/01/2018 COMPARISON: 07/23/2018, 12/22/2017 HISTORY: 63-year-old female abnormal lung sounds requiring oxygen TECHNIQUE: AP and lateral views FINDINGS: Heart mildly enlarged. Hyperinflation. Eventration anterior hemidiaphragm unchanged. Band of atelecta sis anteriorly. New bony focal opacity at the posterior base on the lateral view. Vague density proje cting at the periphery of the right lung is unchanged. IMPRESSION: 1. COPD and mild cardiomegaly. Increased focal posterior basilar opacity on the lateral view could re present atelectasis or early developing infiltrate. The former is favored. 2. Focal vague density at the right midlung appears in part chronic relating to pleural thickening. C onsider nonemergent follow-up CT chest to provide a comparison from the patient's CT of 12/22/2017.
[2018-12-01 07:43] LABS: Basophils % (A) 0 %; Eosinophils # (A) 0.2 k/uL (0-0.7); Eosinophils % (A) 4 %; HCT 29.7 % (34.0-46.0); Hypochromasia Marked; Lymphocytes # (A) 1.1 k/uL (1.0-4.8); Lymphocytes % (A) 20 %; MCH 30.5 pg (25.0-35.0); MCHC 30.3 g/dL (31.0-37.0); MCV 100.6 fL (80.0-100.0); Macrocytosis Slight; Mean Platelet Volume 6.7; Monocytes # (A) 0.3 k/uL (0-1.0); Monocytes % (A) 6 %; Neutrophils # (A) 3.6 k/uL (1.3-7.7); Neutrophils % (A) 67 %; Platelet Count 258 k/uL (150-450); Poikilocytosis Slight; RBC 2.96 m/uL (3.80-5.40); RDW 15.7 % (11.5-15.5); WBC 5.4 k/uL (3.8-10.6)
[2018-12-01 07:57] LABS: Calcium 6.8 mg/dL (8.4-10.2); Potassium 4.2 mmol/L (3.5-5.1)
[2018-12-01] MEDS: SERTRALINE 100 MG TAB PO SCH (08:46)
[2018-12-01] MEDS: METOPROLOL SUCCINATE (ER) 50 MG TAB.ER.24H PO SCH (08:46)
[2018-12-01] MEDS: PRIMIDONE 50 MG TAB PO SCH ×2 (08:46→21:58)
[2018-12-01] MEDS: PHENYTOIN SODIUM EXTENDED 100 MG CAP PO SCH ×3 (08:46→21:58)
[2018-12-01] MEDS: ISOSORBIDE MONONITRATE ER 60 MG TAB.ER.24H PO SCH (08:46)
[2018-12-01] MEDS: FOLIC ACID 1 MG TAB PO SCH (08:47)
[2018-12-01] MEDS: CIPROFLOXACIN-DEXAMETH 0.3-0.1% DROPS 7.5 ML BTL LEFT EAR SCH ×2 (08:47→22:01)
[2018-12-01] MEDS: SYMBICORT 160-4.5 MCG INHALER INHALATION SCH ×2 (09:16→19:54)
--- NOTE | 2018-12-01 09:56 | P.CRDCN ---
History of Present Illness Consult date: 12/01/18 Requesting physician: Adal Mari Jr Reason for Consult (text): Abnormal troponin Chief complaint: Fall History of present illness: This is a 63-year-old female with past medical history significant for chronic kidney disease, No diabetes, hypertension, hyperlipidemia, COPD, prior history of smoking, patient states she quit smoking 3 years ago. She also has history of seizure disorder, anxiety, bipolar depression, who presents to the hospital after experiencing a fall at home. According to the patient, she was standing at the counter, getting dinner [place] when all of a sudden she fell to the floor, hitting her head. According to the patient she did not lose consciousness, she just states that her legs became suddenly very weak and she fell to the floor. She denies any palpitations, no shortness of breath, no dizziness or lightheadedness, no chest discomfort. Skin of the brain was performed on arrival here which did not reveal any acute intracranial findings. EKG shows sinus rhythm with a left bundle-branch block pattern. Bilateral venous duplex study was performed which was negative for DVT. Chest x-ray showed COPD with mild cardiomegaly. Focal vague density in the right midlung consider follow-up CT. Blood pressure 136/80 with a heart rate of 100, tem perature 98.6. 96% on 3 L of oxygen. Laboratory data was reviewed, white blood cell count is normal, hemoglobin on admission 7.4, 6.5 on November 29 and 9.0 this morning, status post one unit packed red blood cells, platelet count 258. Sodium on admission 142 with a potassium of 6.2, BUN 63 and creatinine 4.9. Troponins 0.0-4, 0.018, 0.025, 0.05, 0.04, 0.04. She did have an echocardiogram with Doppler study performed in June of this year which revealed an ejection fraction of 30-35% with inferior septal hypokinesia noted. At the time of my examination this morning, patient feels well, breathing is stable, denies any chest discomfort or palpitations, no dizziness or lightheadedness. Past Medical History Past Medical History: COPD, Diabetes Mellitus, Hyperlipidemia, Hypertension, Seizure Disorder History of Any Multi-Drug Resistant Organisms: None Reported Past Surgical History: Hysterectomy Additional Past Surgical History / Comment(s): ESWL Past Anesthesia/Blood Transfusion Reactions: No Reported Reaction Past Psychological History: Anxiety, Bipolar, Depression Additional Psychological History / Comment(s): mother recently Smoking Status: Former smoker Past Alcohol Use History: None Reported Additional Past Alcohol Use History / Comment(s): pt. states she was a 2 pack a day smoker for many years and quit in 2016 Past Drug Use History: Marijuana, Prescription Drug Abuse Additional Drug Use History / Comment(s): pt. states she occassionally smokes marijuana - Past Family History Mother Family Medical History: Diabetes Mellitus, Hypertension Father Family Medical History: Hypertension Medications and Allergies Home Medications Medication Instructions Recorded Confirmed Type Phenytoin Sodium Extended 100 mg PO TID 11/29/15 11/27/18 History [Dilantin] Sertraline [Zoloft] 200 mg PO DAILY 11/29/15 11/27/18 History Folic Acid 1 mg PO DAILY 07/22/17 11/27/18 History QUEtiapine FUMARATE 150 mg PO HS@[id number]/22/17 11/27/18 History Gemfibrozil [Lopid] 1,200 mg PO HS 09/05/17 11/27/18 History Montelukast [Singulair] 10 mg PO HS #30 tab 12/26/17 11/27/18 Rx Sodium Bicarbonate Tab 1,300 mg PO BID #60 tab 02/23/18 11/27/18 Rx Bisoprolol-Hctz 5-6.25 mg [Ziac 1 tab PO DAILY 07/20/18 11/27/18 History 5-6.25 MG] Calcitriol 0.5 mcg PO MOWEFR 07/20/18 11/27/18 History Cyclobenzaprine [Flexeril] 5 mg PO BID PRN 07/20/18 11/27/18 History Omeprazole [PriLOSEC] 20 mg PO DAILY 07/20/18 11/27/18 History Primidone [Mysoline] 50 mg PO BID 07/20/18 11/27/18 History Isosorbide Mononitrate ER [Imdur] 60 mg PO DAILY #30 tab.er.24h 07/24/18 11/27/18 Rx Metoprolol Succinate (ER) [Toprol 50 mg PO DAILY #30 tab.er.24h 07/24/18 11/27/18 Rx XL] Furosemide [Lasix] 40 mg PO Q48H 11/27/18 11/27/18 History Ipratropium-Albuterol Nebulize 3 ml INHALATION RT-QID PRN 11/27/18 11/27/18 History [Duoneb 0.5 mg-3 mg/3 ml Soln] Potassium Chloride 10 meq PO DAILY 11/27/18 11/27/18 History HYDROcodone/APAP 5-325MG [[place] 1 tab PO Q6HR PRN 11/28/18 11/28/18 History 5-325] Allergies Allergy/AdvReac Type Severity Reaction Status Date / Time Penicillins Allergy Mild Swelling Verified 11/27/18 21:48 Physical Exam Vitals: Vital Signs Temp Pulse Resp BP Pulse Ox 12/01/18 04:00 98.6 F 101 H 18 137/82 96 12/01/18 03:47 16 12/01/18 00:00 98.4 F 105 H 16 132/86 98 11/30/18 23:36 18 11/30/18 20:00 98.3 F 86 18 163/90 96 11/30/18 16:00 98 F 88 17 147/91 96 11/30/18 12:00 94 19 138/69 96 Intake and Output 11/30/18 12/01/18 12/01/18 22:59 06:59 14:59 Intake Total 630 380 120 Output Total 350 Balance 280 380 120 Intake: Intake, IV Titration 150 300 Amount Sodium Chloride 0.45% 1, 150 300 000 ml @ 50 mls/hr IV . Q20H [facility] Rx#:[id number] Oral 480 80 120 Output: Urine 350 Other: Voiding Method Bedside Commode Bedside Commode # Voids 1 2 0 # Bowel Movements 0 Weight 77.1 kg PHYSICAL EXAMINATION: GENERAL: 63-year-old female in no acute distress at the time of my examination HEENT: Head is atraumatic, normocephalic. Pupils equal, round. Sclera anicteric. Conjunctiva are clear. Mucous membranes of the mouth are moist. Neck is supple. There is no elevated jugular venous pressure.No carotid bruit is heard. HEART EXAMINATION: [Heart S1, S2 normal. No murmur or gallop heard.] CHEST EXAMINATION:[ Lungs are clear to auscultation and precussion. No chest wall tenderness is noted on palpation or with deep breathing.] ABDOMEN: [ Soft, nontender. Bowel sounds are heard. No organomegaly noted]. EXTREMITIES:[ 2+ peripheral pulses with no evidence of peripheral edema and no calf tenderness noted]. NEUROLOGIC [patient is awake, alert and oriented X3 . Results 12/01/18 07:26 12/01/18 07:26 Cardiac Enzymes 11/30/18 11/30/18 Range/Units 13:10 18:51 Troponin I 0.049 H* 0.048 H* (0.000-0.034) ng/mL CBC 12/01/18 Range/Units 07:26 WBC 5.4 (3.8-10.6) k/uL RBC 2.96 L (3.80-5.40) m/uL Hgb 9.0 L (11.4-16.0) gm/dL Hct 29.7 L (34.0-46.0) % Plt Count 258 (150-450) k/uL Comprehensive Metabolic Panel 12/01/18 Range/Units 07:26 Sodium 145 (137-145) mmol/L Potassium 4.2 (3.5-5.1) mmol/L Chloride 112 H (98-107) mmol/L Carbon Dioxide 23 (22-30) mmol/L BUN 40 H (7-17) mg/dL Creatinine 2.58 H (0.52-1.04) mg/dL Glucose 105 H (74-99) mg/dL Calcium 6.8 L (8.4-10.2) mg/dL Current Medications Generic Name Dose Route Start Last Admin Trade Name Freq PRN Reason Stop Dose Admin Acetaminophen 650 mg 11/28/18 01:49 11/30/18 21:29 Tylenol Tab PO 650 mg Q6HR PRN Administration Mild Pain or Fever > 100.5 Hydrocodone Bitart/Acetaminophen 2 each 11/30/18 17:34 12/01/18 08:51 [place] 5-325 PO 2 each Q6HR PRN Administration moderate to severe Pain Albuterol/Ipratropium 3 ml 11/28/18 12:11 11/28/18 20:30 Duoneb 0.5 Mg-3 Mg/3 Ml Soln INHALATION 3 ml RT-Q2H PRN Administration Shortness Of Breath Or Wheezing Budesonide/Formoterol Fumarate 2 puff 11/28/18 12:11 12/01/18 09:16 Symbicort 160-4.5 Mcg Inhaler INHALATION 2 puff RT-BID BHAVIK Administration Ciprofloxacin/Dexamethasone 4 drops 11/30/18 13:15 12/01/18 08:47 Ciprodex Otic Susp LEFT EAR 4 drops BID BHAVIK Administration Darbepoetin Scott 60 mcg 11/29/18 09:00 11/29/18 10:11 Aranesp SQ 60 mcg Q7D BHAVIK Administration Ergocalciferol 50,000 unit 11/30/18 12:00 11/30/18 12:28 Vitamin D2 PO 50,000 unit Q72H BHAVIK Administration Fenofibrate 160 mg 11/28/18 21:00 11/30/18 21:25 Lofibra PO 160 mg HS BHAVIK Administration Folic Acid 1 mg 11/28/18 09:00 12/01/18 08:47 Folic Acid PO 1 mg DAILY BHAVIK Administration Sodium Chloride 1,000 mls @ 50 mls/hr 11/30/18 10:45 12/01/18 06:50 Saline 0.45% IV Not Given .Q20H BHAVIK Isosorbide Mononitrate 60 mg 11/28/18 09:00 12/01/18 08:46 Imdur PO 60 mg DAILY BHAVIK Administration Metoprolol Succinate 50 mg 11/28/18 09:00 12/01/18 08:46 Toprol Xl PO 50 mg DAILY BHAVIK Administration Montelukast Sodium 10 mg 11/28/18 21:00 11/30/18 21:25 Singulair PO 10 mg HS BHAVIK Administration Naloxone HCl 0.2 mg 11/28/18 01:49 Narcan IV Q2M PRN Opioid Reversal Pantoprazole Sodium 40 mg 11/28/18 07:30 12/01/18 06:34 Protonix PO 40 mg DAILY@0730 BHAVIK Administration Phenytoin Sodium 100 mg 11/28/18 09:00 12/01/18 08:46 Dilantin PO 100 mg TID BHAVIK Administration Primidone 50 mg 11/28/18 09:00 12/01/18 08:46 Mysoline PO 50 mg BID BHAVIK Administration Quetiapine Fumarate 150 mg 11/28/18 20:00 11/30/18 21:25 Seroquel PO 150 mg HS@2000 BHAVIK Administration Sertraline HCl 200 mg 11/28/18 09:00 12/01/18 08:46 Zoloft PO 200 mg DAILY BHAVIK Administration Sodium Bicarbonate 1,300 mg 11/28/18 09:00 11/28/18 09:39 Sodium Bicarbonate Tab PO 1,300 mg BID BHAVIK Administration Intake and Output 11/30/18 12/01/18 12/01/18 22:59 06:59 14:59 Intake Total 630 380 120 Output Total 350 Balance 280 380 120 Intake: Intake, IV Titration 150 300 Amount Sodium Chloride 0.45% 1, 150 300 000 ml @ 50 mls/hr IV . Q20H BHAVIK Rx#:[id number] Oral 480 80 120 Output: Urine 350 Other: Voiding Method Bedside Commode Bedside Commode # Voids 1 2 0 # Bowel Movements 0 Weight 77.1 kg 12/01/18 07:26 12/01/18 07:26 EKG Interpretations (text) EKG shows normal sinus rhythm with left bundle branch block pattern. Assessment and Plan Plan: Assessment and plan #1 fall, no evidence of syncope. Likely secondary to weakness #2 acute on chronic renal failure #3 hypertension #4 hyperlipidemia #5 acute on chronic anemia #6 COPD #7 prior history of smoking #8 seizure disorder #9 anxiety and bipolar depression #10 abnormal troponins, not consistent with acute coronary syndrome with no significant rise and fall pattern, likely secondary to anemia and renal failure Plan We will check orthostatic heart rate and blood pressure every shift. We will obtain an echocardiogram with Doppler study. Further recommendations to follow. DNP note has been reviewed, I agree with a documented findings and plan of care. Patient was seen and examined.
[2018-12-01 10:48] LABS: Iron Saturation 33.49 (12.00-45.00)
[2018-12-01 11:45] LABS: Glucose,Whole Blood 102 mg/dL (75-99)
--- NOTE | 2018-12-01 12:54 | ECHOF ---
Referral Reason:abn trop MEASUREMENTS -------- HEIGHT: 162.6 cm WEIGHT: 76.7 kg BP: IVSd: 1.2 cm (0.6 - 1.1) LVIDd: 4.1 cm (3.9 - 5.3) LVPWd: 1.5 cm (0.6 - 1.1) IVSs: 1.4 cm LVIDs: 3.3 cm LVPWs: 1.7 cm LAESV Index (A-L): 15.37 ml/m Ao Diam: 3.6 cm (2.0 - 3.7) AV Cusp: 2.4 cm (1.5 - 2.6) LA Diam: 2.8 cm (2.7 - 3.8) MV EXCURSION: 12.842 mm (> 18.000) MV EF SLOPE: 52 mm/s (70 - 150) EPSS: 0.6 cm MV E Chai: 1.28 m/s MV DecT: 193 ms MV A Chai: 0.66 m/s MV E/A Ratio: 1.94 AR PHT: 256 ms RAP: 5.00 mmHg RVSP: 14.31 mmHg FINDINGS -------- Sinus rhythm. This was a technically difficult study with suboptimal views. The left ventricular size is normal. There is mild concentric left ventricular hypertrophy. Overa ll left ventricular systolic function is mildly impaired with, an EF between 45 - 50 %. Normal LAP Grade 1 Diastolic Dysfunction. Septal wall motion is delayed, and consistent with conduction delay/ bundle branch block. Septal Hypokinesis The right ventricle is normal in size. The left atrial size is normal. Normal LA size by volume 22+/-6 ml/m2. The right atrial size is normal. Lumason used The aortic valve is trileaflet and appears structurally normal. There is mild aortic regurgitation. The mitral valve is normal. The mitral valve leaflets are mildly thickened. Mild mitral regurgita tion is present. Mild tricuspid regurgitation present. Right ventricular systolic pressure is normal at < 35 mmHg. There is no pulmonic regurgitation present. The aortic root size is normal. IVC Not well visulized. There is no pericardial effusion. CONCLUSIONS -------- 1. Sinus rhythm. 2. This was a technically difficult study with suboptimal views. 3. The left ventricular size is normal. 4. There is mild concentric left ventricular hypertrophy. 5. Normal LAP Grade 1 Diastolic Dysfunction. 6. Septal wall motion is delayed, and consistent with conduction delay/bundle branch block. 7. MidSeptal Hypokinesis 8. The right ventricle is normal in size. 9. The left atrial size is normal. 10. Normal LA size by volume 22+/-6 ml/m2. 11. The right atrial size is normal. 12. Lumason used 13. The aortic valve is trileaflet and appears structurally normal. 14. There is mild aortic regurgitation. 15. The mitral valve is normal. 16. The mitral valve leaflets are mildly thickened. 17. Mild mitral regurgitation is present. 18. Mild tricuspid regurgitation present. 19. Right ventricular systolic pressure is normal at < 35 mmHg. 20. There is no pulmonic regurgitation present. 21. The aortic root size is normal. 22. IVC Not well visulized. 23. There is no pericardial effusion. G[employer]LE OPERATOR: Marcie Beckman RDCS
[2018-12-01 16:48] LABS: Glucose,Whole Blood 104 mg/dL (75-99)
[2018-12-01] MEDS: SODIUM CHLORIDE 0.9% 1,000 ML IV SCH (18:00)
[2018-12-01 21:07] LABS: Glucose,Whole Blood 128 mg/dL (75-99)
[2018-12-01] MEDS: QUEtiapine 50 MG TAB PO SCH (21:58)
[2018-12-01] MEDS: FENOFIBRATE 160 MG TAB PO SCH (21:58)
[2018-12-01] MEDS: MONTELUKAST 10 MG TAB PO SCH (21:58)
[2018-12-02] MEDS: SODIUM CHLORIDE 0.45% 1,000 ML IV SCH (03:43)
[2018-12-02] MEDS: HYDROcodone/APAP 5-325MG 1 EACH TAB PO PRN ×2 (04:40→17:07)
[2018-12-02 05:59] LABS: Glucose,Whole Blood 132 mg/dL (75-99)
[2018-12-02] MEDS: PANTOPRAZOLE 40 MG TABLET PO SCH (06:21)
[2018-12-02 07:37] LABS: Anisocytosis Slight; Basophils % (A) 0 %; Eosinophils # (A) 0.2 k/uL (0-0.7); Eosinophils % (A) 4 %; HCT 26.2 % (34.0-46.0); HGB 8.1 gm/dL (11.4-16.0); Hypochromasia Marked; Lymphocytes % (A) 20 %; MCH 30.5 pg (25.0-35.0); MCHC 30.8 g/dL (31.0-37.0); MCV 99.1 fL (80.0-100.0); Macrocytosis Slight; Mean Platelet Volume 7.3; Monocytes # (A) 0.3 k/uL (0-1.0); Monocytes % (A) 7 %; Neutrophils # (A) 3.2 k/uL (1.3-7.7); Neutrophils % (A) 66 %; Platelet Count 224 k/uL (150-450); Poikilocytosis Slight; RBC 2.64 m/uL (3.80-5.40); RDW 16.2 % (11.5-15.5); WBC 4.9 k/uL (3.8-10.6)
[2018-12-02 07:49] LABS: Calcium 6.8 mg/dL (8.4-10.2); Potassium 4.4 mmol/L (3.5-5.1)
[2018-12-02] MEDS: ISOSORBIDE MONONITRATE ER 60 MG TAB.ER.24H PO SCH (08:25)
[2018-12-02] MEDS: PHENYTOIN SODIUM EXTENDED 100 MG CAP PO SCH ×3 (08:26→20:38)
[2018-12-02] MEDS: SERTRALINE 100 MG TAB PO SCH (08:26)
[2018-12-02] MEDS: FOLIC ACID 1 MG TAB PO SCH (08:26)
[2018-12-02] MEDS: METOPROLOL SUCCINATE (ER) 50 MG TAB.ER.24H PO SCH (08:26)
[2018-12-02] MEDS: PRIMIDONE 50 MG TAB PO SCH ×2 (08:26→20:37)
[2018-12-02] MEDS: CIPROFLOXACIN-DEXAMETH 0.3-0.1% DROPS 7.5 ML BTL LEFT EAR SCH ×2 (08:26→20:45)
[2018-12-02] MEDS: SYMBICORT 160-4.5 MCG INHALER INHALATION SCH ×2 (09:19→20:07)
[2018-12-02] MEDS ORDERED: HYDROmorphone 0.5 MG/0.5 ML SYRINGE IVP STA ×2 (09:21→12:07)
--- NOTE | 2018-12-02 09:51 | US ---
EXAMINATION TYPE: US pelvic limited DATE OF EXAM: 12/02/2018 COMPARISON: CT 2018 CLINICAL HISTORY: pelvic pain. Total hysterectomy at age 25. TECHNIQUE: Transabdominal (TA). Transabdominal sonographic images of the pelvis were acquired. Date of LMP: Postmenopausal. EXAM MEASUREMENTS: Uterus: Surgically absent cm Endometrial Stripe: Surgically absent cm Right Ovary: Surgically absent cm Left Ovary: Surgically absent cm No masses or abnormalities seen. Surgical absence of the ovaries and uterus. IMPRESSION: Surgical absence of the ovaries and uterus. Unremarkable pelvic ultrasound. MTDD
--- NOTE | 2018-12-02 11:51 | US ---
EXAMINATION TYPE: US renals and bladder DATE OF EXAM: 12/02/2018 COMPARISON: CT and US 2018 CLINICAL HISTORY: Left Flank pain. EXAM MEASUREMENTS: Right Kidney: 11.1 x 5.7 x 5.2 cm Left Kidney: 10.0 x 5.0 x 5.0 cm Post Void Residual Volume: 0 mL Right Kidney: Multiple cysts noted. Largest Lateral = 1.8 x 1.4 x 1.7 cm, Lower pole renal stone = 1. 7 cm . Some subcentimeter lesions are too small to accurately characterize. Left Kidney: Multiple cysts noted. Largest lower pole = 1.9 x 2.0 x 1.6 cm . Some subcentimeter lesio ns are too small to accurately characterize. Bladder: wnl Bilateral Jets seen: No, patient could not hold bladder long enough to properly evaluate. Normal Post Void Residual: Yes There is no evidence for hydronephrosis at this point in time. The urinary bladder is anechoic. IMPRESSION: 1. Nonobstructing 1.7 cm right renal calculus. 2. Multiple bilateral renal cysts and some subcentimeter bilateral renal lesions that are too small t o accurately characterize. 3. No hydronephrosis of either kidney.
[2018-12-02 12:03] LABS: Glucose,Whole Blood 124 mg/dL (75-99)
--- NOTE | 2018-12-02 12:44 | P.PCN ---
Preoperative Diagnosis: Diagnosis Syncope Twelve-lead ECG shows sinus rhythm normal [place] interval left bundle branch block pattern Tilt table test per protocol Baseline blood pressure 164/92 mmHg in supine position. Patient complained of nausea while lying supine She was tilted upright at an angle of 70 per protocol there was no significant change in her heart rate up blood pressure blood pressure remained elevated heart rates were between 100 and 110 bpm She complained of nausea intermittently leg weakness headache At the end of the procedure she was still complaining of nausea and diaphoresis without any change in her heart rate of blood pressure and when she was laid supine she felt a bit better Impression Symptoms of nausea leg weakness headache and elevated blood pressures No evidence for dysautonomia No evidence for neurocardiogenic syncope Twelve-lead ECG shows sinus rhythm with a left bundle branch block pattern
[2018-12-02] MEDS: SODIUM CHLORIDE 0.9% 1,000 ML IV SCH (16:34)
[2018-12-02 16:55] LABS: Glucose,Whole Blood 130 mg/dL (75-99)
--- NOTE | 2018-12-02 17:39 | P.PN ---
Subjective Progress Note Date: 12/01/18 This is 63-year-old female transported by EMS to the ER, status post fall with generalized weakness in a patient with history of COPD, CHF, diabetes mellitus, hypertension, hyperlipidemia, seizure disorder, anxiety, bipolar, depression, history of nicotine abuse, occasional marijuana use and multiple other medical issues. States "legs gave out". Denies syncope. Denies incontinence of urine or bowel movement. States fell back and hit the back of her head. Recently patient developed earache/placed on Bactrim. Also takes bisoprolol-HCTZ, Lasix, denies NSAID use. Brain CT reported no acute process. EKG currently unable to open, appears to have been scanned. Troponins pending. Telemetry sinus rhythm to sinus tach, low 100s with bundle branch block. Denies chest pain or palpitations. Denies shortness of breath. Denies lightheadedness or dizziness, no focal deficits. Denies nausea vomiting or diarrhea. Creatinine 4.99 with a baseline of 2.5-3, Potassium 6.2, hemoglobin 7.4-Baseline 10, on admission. Bicarb 12. Received Kayexalate. Patient also presents with urinary retention.VSS, maintaining O2 sats in the 90s on 4 L nasal cannula( baseline). 11/29/2018: hemoglobin 7.4 on admission is now down to 6.5. Her potassium originally at 6.5, is now down to 4.2. Her GFR is improved from 9 to 12. Her creatinine is improved from 4.9 down to 3.86. Due to her CHF, they did not rehydrate her very much. IV fluids were started yesterday of D5 at 75 mL per hour. She has not stooled since admission and denied any hematochezia or melena. Currently she denies any chest pains, pressures, or shortness of breath. She denies any nausea or vomiting. Nephrology is seen her and recommendations are noted. She spent a transfusion 1 unit packed red blood cells. 11/30/2018: Patient's hemoglobin is now 8.1. She tells me she does not feel well. Her GFR is now improved to 16. Her creatinine is 3.0. Her calcium remains low at 6.4. She received 1 g of calcium gluconate yesterday. She remains on sodium bicarbonate. Incidental finding of abnormal troponin at 0.05 for today. Previous 3 done 2 days ago were all normal. She denies any chest pains, shortness of breath, nausea vomiting. She remains on oxygen at 3 L via nasal cannula. He does complain of left ear pain. Indicated is been going on for a month. 12/01/2018 maintained on half normal saline, oral sodium bicarb , renal function slowly improving .Complaining of left flank pain. Renal ultrasound reporting nonobstructing 1.7 cm right renal calculus, multiple bilateral renal cysts and some renal lesions are too small to accurately characterize with no hydronephrosis of either kidney. Pelvis ultrasound reporting unremarkable. Doppler negative for DVT. Elevated troponins, cardiology consulted, in a patient with history of ischemic cardiomyopathy. Complains of generalized weakness, PT/OT consulted for potential subacute rehab at discharge. Denies chest pain, palpitations or shortness of breath. Denies lightheadedness dizziness or focal deficits. Orthostatic vital signs pending. Objective - Vital Signs Vital signs: Vital Signs Temp 98.3 F 12/01/18 16:00 Pulse 91 12/01/18 16:00 Resp 20 12/01/18 16:00 BP 138/83 12/01/18 16:00 Pulse Ox 96 12/01/18 16:00 Intake & Output 11/30/18 12/01/18 12/01/18 18:59 06:59 18:59 Intake Total 530 780 120 Output Total 1050 Balance -520 780 120 Weight 77.1 kg Intake: Intake, IV Titration 450 Amount Sodium Chloride 0.45% 1, 450 000 ml @ 50 mls/hr IV . Q20H [facility] Rx#:[id number] Oral 530 330 120 Output: Urine 1050 Other: Voiding Method Bedside Commode # Voids 2 2 0 # Bowel Movements 1 0 - Exam GENERAL: Sitting up at side of bed, no acute distress HEENT: Head atraumatic, pupils equal, conjunctiva normal, oral mucosa moist NECK: Supple, No JVD. No thyroid enlargement. No LNs CARDIOVASCULAR: S1, S2 regular.. No murmur RESPIRATION: Breath sounds diminished in the bases. No rhonchi, fine bibasilar crackles. No wheezing ABDOMEN: Soft, nontender . No guarding. no masses palpable. No ascites, No hepatosplenomegaly.Bowel sounds heard. LEGS: No edema. no swelling. No calf tenderness today compared to yesterday. PSYCHIATRY: Alert and oriented X3, mood and affect normal. NERVOUS SYSTEM: Cranial N 2-12 grossly normal. Moves all 4 limbs. Diffuse weakness No focal deficits. Strength and sensation grossly intact.. Skin: no lesions, no rash Lymphatic system. No LN neck axilla or groin. - Labs CBC & Chem 7: 12/02/18 06:42 12/02/18 06:42 Labs: Abnormal Lab Results - Last 24 Hours (Table) 11/30/18 11/30/18 11/30/18 Range/Units 06:31 18:51 21:15 RBC (3.80-5.40) m/uL Hgb (11.4-16.0) gm/dL Hct (34.0-46.0) % MCV (80.0-100.0) fL MCHC (31.0-37.0) g/dL RDW (11.5-15.5) % Chloride (98-107) mmol/L BUN (7-17) mg/dL Creatinine (0.52-1.04) mg/dL Glucose (74-99) mg/dL POC Glucose (mg/dL) 113 H (75-99) mg/dL Calcium (8.4-10.2) mg/dL TIBC 218 L (228-460) ug/dL Troponin I 0.048 H* (0.000-0.034) ng/mL 12/01/18 12/01/18 12/01/18 Range/Units 07:26 07:26 11:33 RBC 2.96 L (3.80-5.40) m/uL Hgb 9.0 L (11.4-16.0) gm/dL Hct 29.7 L (34.0-46.0) % MCV 100.6 H (80.0-100.0) fL MCHC 30.3 L (31.0-37.0) g/dL RDW 15.7 H (11.5-15.5) % Chloride 112 H (98-107) mmol/L BUN 40 H (7-17) mg/dL Creatinine 2.58 H (0.52-1.04) mg/dL Glucose 105 H (74-99) mg/dL POC Glucose (mg/dL) 102 H (75-99) mg/dL Calcium 6.8 L (8.4-10.2) mg/dL TIBC (228-460) ug/dL Troponin I (0.000-0.034) ng/mL 12/01/18 Range/Units 16:47 RBC (3.80-5.40) m/uL Hgb (11.4-16.0) gm/dL Hct (34.0-46.0) % MCV (80.0-100.0) fL MCHC (31.0-37.0) g/dL RDW (11.5-15.5) % Chloride (98-107) mmol/L BUN (7-17) mg/dL Creatinine (0.52-1.04) mg/dL Glucose (74-99) mg/dL POC Glucose (mg/dL) 104 H (75-99) mg/dL Calcium (8.4-10.2) mg/dL TIBC (228-460) ug/dL Troponin I (0.000-0.034) ng/mL Assessment and Plan Assessment: -Acute on chronic renal failure stage IV, in a patient who had been on Bactrim, bisoprolol-HCTZ, Lasix. denies NSAID use. Baseline creatinine 2.5-3. -Hyperkalemia secondary to the above -Acute on chronic anemia, baseline 10 -Fall with generalized weakness, no syncope -Abnormal troponins, possibly secondary to renal failure, anemia in a patient with history of ischemic cardiomyopathy, cardiology consulted. -Essential primary hypertension -Chronic respiratory failure, wears 4 L nasal cannula O2 at home. -COPD -Diabetes mellitus -Hyperlipidemia -Seizure disorder -Anxiety, depression -Bipolar -History of nicotine abuse -Occasional marijuana use -Chronic systolic CHF -Noncompliance. -Elevated troponins in a patient with history of ischemic cardiomyopathy -Otitis media -Hypocalcemia, oral vitamin D supplementation initiated -Metabolic acidosis secondary to renal failure, improving currently on oral bicarbonate. Plan: Continue current medication regime ,monitoring and symptomatic treatment. Cardiology consulted. Orthostatic vital signs pending. Echo ordered. Close monitoring of electrolytes with repeat labs ordered for a.m. follow closely with nephrology. PT/OT-potential subacute rehab at discharge. Prognosis guarded given multiple complex medical issues. The impression and plan of care has been dictated as directed. : I performed a history and examination of this patient, discussed the same with the dictator. I agree with the dictator's note ,documented as a scribe. Any additional findings or plans will be noted. Time taken: 35 minutes -
[2018-12-02] MEDS: ONDANSETRON 4 MG/2 ML VIAL IVP PRN (18:32)
[2018-12-02] MEDS: QUEtiapine 50 MG TAB PO SCH (20:37)
[2018-12-02] MEDS: MONTELUKAST 10 MG TAB PO SCH (20:37)
[2018-12-02] MEDS: FENOFIBRATE 160 MG TAB PO SCH (20:38)
[2018-12-02] MEDS: ACETAMINOPHEN TAB 325 MG TAB PO PRN (20:42)
[2018-12-02 21:10] LABS: Glucose,Whole Blood 116 mg/dL (75-99)
[2018-12-03] MEDS: SODIUM CHLORIDE 0.45% 1,000 ML IV SCH ×3 (00:49→19:58)
[2018-12-03] MEDS: HYDROcodone/APAP 5-325MG 1 EACH TAB PO PRN ×3 (02:32→19:34)
[2018-12-03 06:00] LABS: Glucose,Whole Blood 90 mg/dL (75-99)
[2018-12-03] MEDS: PANTOPRAZOLE 40 MG TABLET PO SCH (06:30)
[2018-12-03 07:08] LABS: Basophils % (A) 1 %; Eosinophils # (A) 0.2 k/uL (0-0.7); Eosinophils % (A) 4 %; HCT 30.2 % (34.0-46.0); HGB 8.9 gm/dL (11.4-16.0); Hypochromasia Marked; Lymphocytes % (A) 18 %; MCH 29.8 pg (25.0-35.0); MCHC 29.5 g/dL (31.0-37.0); MCV 101.1 fL (80.0-100.0); Macrocytosis Slight; Mean Platelet Volume 6.9; Monocytes # (A) 0.3 k/uL (0-1.0); Monocytes % (A) 6 %; Neutrophils # (A) 3.9 k/uL (1.3-7.7); Neutrophils % (A) 70 %; Platelet Count 238 k/uL (150-450); Poikilocytosis Slight; RBC 2.98 m/uL (3.80-5.40); RDW 15.6 % (11.5-15.5); WBC 5.6 k/uL (3.8-10.6)
[2018-12-03 07:19] LABS: Calcium 7.5 mg/dL (8.4-10.2); Potassium 4.5 mmol/L (3.5-5.1)
[2018-12-03] MEDS: ISOSORBIDE MONONITRATE ER 60 MG TAB.ER.24H PO SCH (08:22)
[2018-12-03] MEDS: ERGOCALCIFEROL 50,000 UNIT CAP PO SCH (08:22)
[2018-12-03] MEDS: SERTRALINE 100 MG TAB PO SCH (08:22)
[2018-12-03] MEDS: PRIMIDONE 50 MG TAB PO SCH ×2 (08:22→22:29)
[2018-12-03] MEDS: FOLIC ACID 1 MG TAB PO SCH (08:22)
[2018-12-03] MEDS: PHENYTOIN SODIUM EXTENDED 100 MG CAP PO SCH ×3 (08:22→22:28)
[2018-12-03] MEDS: METOPROLOL SUCCINATE (ER) 50 MG TAB.ER.24H PO SCH (08:23)
--- NOTE | 2018-12-03 08:35 | P.PN ---
Subjective Progress Note Date: 12/02/18 This is 63-year-old female transported by EMS to the ER, status post fall with generalized weakness in a patient with history of COPD, CHF, diabetes mellitus, hypertension, hyperlipidemia, seizure disorder, anxiety, bipolar, depression, history of nicotine abuse, occasional marijuana use and multiple other medical issues. States "legs gave out". Denies syncope. Denies incontinence of urine or bowel movement. States fell back and hit the back of her head. Recently patient developed earache/placed on Bactrim. Also takes bisoprolol-HCTZ, Lasix, denies NSAID use. Brain CT reported no acute process. EKG currently unable to open, appears to have been scanned. Troponins pending. Telemetry sinus rhythm to sinus tach, low 100s with bundle branch block. Denies chest pain or palpitations. Denies shortness of breath. Denies lightheadedness or dizziness, no focal deficits. Denies nausea vomiting or diarrhea. Creatinine 4.99 with a baseline of 2.5-3, Potassium 6.2, hemoglobin 7.4-Baseline 10, on admission. Bicarb 12. Received Kayexalate. Patient also presents with urinary retention.VSS, maintaining O2 sats in the 90s on 4 L nasal cannula( baseline). 11/29/2018: hemoglobin 7.4 on admission is now down to 6.5. Her potassium originally at 6.5, is now down to 4.2. Her GFR is improved from 9 to 12. Her creatinine is improved from 4.9 down to 3.86. Due to her CHF, they did not rehydrate her very much. IV fluids were started yesterday of D5 at 75 mL per hour. She has not stooled since admission and denied any hematochezia or melena. Currently she denies any chest pains, pressures, or shortness of breath. She denies any nausea or vomiting. Nephrology is seen her and recommendations are noted. She spent a transfusion 1 unit packed red blood cells. 11/30/2018: Patient's hemoglobin is now 8.1. She tells me she does not feel well. Her GFR is now improved to 16. Her creatinine is 3.0. Her calcium remains low at 6.4. She received 1 g of calcium gluconate yesterday. She remains on sodium bicarbonate. Incidental finding of abnormal troponin at 0.05 for today. Previous 3 done 2 days ago were all normal. She denies any chest pains, shortness of breath, nausea vomiting. She remains on oxygen at 3 L via nasal cannula. He does complain of left ear pain. Indicated is been going on for a month. 12/01/2018 maintained on half normal saline, oral sodium bicarb , renal function slowly improving .Complaining of left flank pain. Renal ultrasound reporting nonobstructing 1.7 cm right renal calculus, multiple bilateral renal cysts and some renal lesions are too small to accurately characterize with no hydronephrosis of either kidney. Pelvis ultrasound reporting unremarkable. Doppler negative for DVT. Elevated troponins, cardiology consulted, in a patient with history of ischemic cardiomyopathy. Complains of generalized weakness, PT/OT consulted for potential subacute rehab at discharge. Denies chest pain, palpitations or shortness of breath. Denies lightheadedness dizziness or focal deficits. Orthostatic vital signs pending. 12/02/2018 echo reported septal wall motion delayed EF 45-50%; discussed with cardiology, actually improved from prior echo in June reporting EF 30-35%, in a patient with known ischemic cardiomyopathy,Minimal orthostatic hypotension. Creatinine 2.64, baseline. Orhtostatic signs reported systolic blood pressure 148 sitting, dropped to 134 upon standing-symptomatic. Underwent a tilt table with cardiology reporting no evidence for distant insomnia no evidence for neurocardiogenic syncope, 12-lead EKG showed sinus rhythm with left bundle branch block. Complains of headache. Maintaining O2 sats in the 90s, on 3 L nasal cannula, normally wears 4 L at home. calcium remains low at 6.8. Evaluated by PT/OT was subacute rehab recommended at discharge. Afebrile. Denies chest pain, palpitations or increasing shortness of breath. Objective - Vital Signs Vital signs: Vital Signs Temp 98.2 F 12/02/18 16:00 Pulse 88 12/02/18 16:00 Resp 20 12/02/18 16:00 BP 162/90 12/02/18 16:00 Pulse Ox 98 12/02/18 16:00 Intake & Output 12/01/18 12/02/18 12/02/18 18:59 06:59 18:59 Intake Total 120 750 160 Output Total 200 2 Balance 120 550 158 Weight 85.3 kg Intake: Intake, IV Titration 350 160 Amount Sodium Chloride 0.45% 1, 350 160 000 ml @ 50 mls/hr IV . Q20H [facility] Rx#:[id number] Oral 120 400 Output: Urine 200 Emesis 2 Other: Voiding Method Bedside Commode # Voids 0 1 # Bowel Movements 0 1 - Exam GENERAL: Sitting up at side of bed, no acute distress HEENT: Head atraumatic, pupils equal, conjunctiva normal, oral mucosa moist NECK: Supple, No JVD. No thyroid enlargement. No LNs CARDIOVASCULAR: S1, S2 regular.No murmur RESPIRATION: Breath sounds diminished in the bases. No rhonchi, fine bibasilar crackles. No wheezing ABDOMEN: Soft, nontender . No guarding. no masses palpable. Bowel sounds heard. LEGS: No edema. no swelling. No clubbing. PSYCHIATRY: Alert and oriented X3, mood and affect normal. NERVOUS SYSTEM: Cranial N 2-12 grossly normal. Moves all 4 limbs. Diffuse weakness No focal deficits. Skin: no lesions, no rash Lymphatic system. No LN neck axilla or groin. - Labs CBC & Chem 7: 12/03/18 06:40 12/03/18 06:40 Labs: Abnormal Lab Results - Last 24 Hours (Table) 12/01/18 12/02/18 12/02/18 Range/Units 21:06 05:57 06:42 RBC 2.64 L (3.80-5.40) m/uL Hgb 8.1 L (11.4-16.0) gm/dL Hct 26.2 L (34.0-46.0) % MCHC 30.8 L (31.0-37.0) g/dL RDW 16.2 H (11.5-15.5) % Chloride (98-107) mmol/L BUN (7-17) mg/dL Creatinine (0.52-1.04) mg/dL Glucose (74-99) mg/dL POC Glucose (mg/dL) 128 H 132 H (75-99) mg/dL Calcium (8.4-10.2) mg/dL 12/02/18 12/02/18 12/02/18 Range/Units 06:42 12:02 16:50 RBC (3.80-5.40) m/uL Hgb (11.4-16.0) gm/dL Hct (34.0-46.0) % MCHC (31.0-37.0) g/dL RDW (11.5-15.5) % Chloride 112 H (98-107) mmol/L BUN 38 H (7-17) mg/dL Creatinine 2.64 H (0.52-1.04) mg/dL Glucose 100 H (74-99) mg/dL POC Glucose (mg/dL) 124 H 130 H (75-99) mg/dL Calcium 6.8 L (8.4-10.2) mg/dL Assessment and Plan Assessment: -Acute on chronic renal failure stage IV, in a patient who had been on Bactrim, bisoprolol-HCTZ, Lasix. denies NSAID use. Baseline creatinine 2.5-3. -Hyperkalemia secondary to the above -Acute on chronic anemia, baseline 10 -Fall with generalized weakness, no syncope. Status post tilt table. -Abnormal troponins, possibly secondary to renal failure, anemia in a patient with history of ischemic cardiomyopathy, cardiology consulted. -Essential primary hypertension -Chronic respiratory failure, wears 4 L nasal cannula O2 at home. -COPD -Diabetes mellitus -Hyperlipidemia -Seizure disorder -Anxiety, depression -Bipolar -History of nicotine abuse -Occasional marijuana use -Chronic systolic CHF -Noncompliance. -Elevated troponins in a patient with history of ischemic cardiomyopathy -Otitis media -Hypocalcemia, oral vitamin D supplementation initiated -Metabolic acidosis secondary to renal failure, improving currently on oral bicarbonate. Plan: Continue current medication regime ,monitoring and symptomatic treatment. As mentioned above evaluated by a physical therapy and subacute rehab recommended for discharge.Close monitoring of electrolytes with repeat labs ordered for a.m. follow closely with nephrology. Discharge planning in progress pending cardiology/nephrology clearance. The impression and plan of care has been dictated as directed. : I performed a history and examination of this patient, discussed the same with the dictator. I agree with the dictator's note ,documented as a scribe. Any additional findings or plans will be noted. Time taken: 35 minutes -
[2018-12-03] MEDS: CIPROFLOXACIN-DEXAMETH 0.3-0.1% DROPS 7.5 ML BTL LEFT EAR SCH ×2 (08:37→22:29)
[2018-12-03] MEDS: ONDANSETRON 4 MG/2 ML VIAL IVP PRN ×2 (08:38→19:30)
[2018-12-03] MEDS: SYMBICORT 160-4.5 MCG INHALER INHALATION SCH ×2 (09:12→19:35)
[2018-12-03] MEDS: SODIUM CHLORIDE 0.9% 1,000 ML IV SCH (09:31)
--- NOTE | 2018-12-03 10:19 | CT ---
EXAMINATION TYPE: CT brain wo con DATE OF EXAM: 12/03/2018 HISTORY: persistent [place] CT DLP: 1048.4 mGycm. Automated Exposure Control for Dose Reduction was Utilized. TECHNIQUE: CT scan of the head is performed without contrast. COMPARISON: CT brain from 6 days ago.. FINDINGS: There is no acute intracranial hemorrhage or midline shift identified. There is diffuse v entricular and sulcal prominence consistent with diffuse age-related cerebral atrophy. Atrophy is mo st prominent over the bilateral frontal lobes superiorly similar to prior There is low-attenuation in the periventricular white matter consistent with chronic small vessel ischemic change. Right mastoid surgical changes are redemonstrated. Patchy opacification inferior left mastoid air cells remains pr esent, there may be some progression from recent CT. The globes are intact and the visualized sinuses are clear. IMPRESSION: No acute intracranial hemorrhage or midline shift. There is mild diffuse age-related ce rebral atrophy most prominent over bilateral frontal lobes and mild chronic small vessel ischemic tayler nge redemonstrated. No significant change from prior. Suspect possible increasing left-sided mastoid itis, correlate clinically.
--- NOTE | 2018-12-03 10:59 | PN ---
PROGRESS NOTE Patient is seen for followup for acute kidney injury. Her renal function has improved with creatinine down to 2.6 from 4.9 on initial admission. She does have chronic kidney disease with baseline creatinine about 2.2 to 2.5 mg/dL. The patient has gone down for tilt-table test which was negative yesterday. She complains of nausea and is maintained on Zofran. PHYSICAL EXAMINATION: On examination this morning, blood pressure 154/89, heart rate 101 per minute. She is afebrile. EXAMINATION OF THE HEART: S1, S2. EXAMINATION OF THE LUNGS: Bilateral breath sounds are heard. Abdomen is soft, nontender. Examination of lower extremities shows no significant edema. LABS: Labs show sodium 146, potassium 4.5, chloride 113, BUN 35, serum creatinine 2.6, hemoglobin 8.9 g/dL. ASSESSMENT: 1. Acute kidney injury, nonoliguric. Patient is maintained on IV fluids. She has not been eating much secondary to nausea. 2. Metabolic acidosis associated with renal failure and status post IV bicarb maintained on oral sodium bicarb. 3. Hypocalcemia with severe nutritional vitamin D deficiency maintained on vitamin D supplementation only. 4. Anemia, status post packed RBC transfusion. No active bleeding noted. Iron saturation was 33%. 5. Chronic kidney disease NKF stage 3B to 4 secondary UA shows 2+ protein. Patient is not on any medications for diabetes. We will need to quantify the proteinuria again as outpatient and rule out other causes and serologies will be ordered, this can be done as outpatient. 6. Hyperkalemia associated with acute kidney injury, potassium supplements, metabolic acidosis, currently improved. PLAN: Continue gentle IV hydration. Continue with Zofran and continue to increase free water intake secondary to mild hypernatremia. Continue to maintain patient on Aranesp for anemia. MMODL / IJN: [id number] /
[2018-12-03 12:00] LABS: Glucose,Whole Blood 100 mg/dL (75-99)
--- NOTE | 2018-12-03 13:27 | P.PN ---
Subjective Patient is resting comfortably in bed. She complains of a headache. No chest discomfort dizziness no shortness of breath Pulse rate 100 beats a minute afebrile but pressure 154/89 mmHg no respiratory distress no orthopnea Breath sounds are reduced electrical no rhonchi no crackles No murmurs no gallops over the precordium Abdomen soft extremities warm She is alert and oriented 2-D echo shows mild septal hypokinesis left ventricular ejection fraction 40-45% which represents an improvement from before She underwent a tilt table test which shows sinus rhythm with a left bundle branch block pattern Elevated blood pressures and no evidence for dysautonomia neurocardiogenic syncope Labs are reviewed BUN is 35 and creatinine is 2.62 Impression Mild cardio myopathy which is improved since before Elevated blood pressures Chronic kidney disease, avoid BARRY inhibitor as angiotensin receptor blockers spironolactone despite the fact that she is mildly reduced LV function The Toprol succinate may be increased to 100 mg by mouth per day Objective - Vital Signs Vital signs: Vital Signs Temp 98.3 F 12/03/18 08:00 Pulse 101 H 12/03/18 08:00 Resp 18 12/03/18 08:00 BP 154/89 12/03/18 08:00 Pulse Ox 99 12/03/18 08:00 Intake & Output 12/02/18 12/03/18 12/03/18 18:59 06:59 18:59 Intake Total 160 220 Output Total 2 Balance 158 220 Weight 84.7 kg Intake: Intake, IV Titration 160 100 Amount Sodium Chloride 0.45% 1, 160 0 000 ml @ 50 mls/hr IV . Q20H [facility] Rx#:[id number] Sodium Chloride 0.9% 1, 100 000 ml @ 20 mls/hr IV . Q24H [facility] Rx#:[id number] Oral 120 Output: Emesis 2 Other: Voiding Method Bedside Commode # Voids 2 - Labs CBC & Chem 7: 12/03/18 06:40 12/03/18 06:40 Labs: Abnormal Lab Results - Last 24 Hours (Table) 12/02/18 12/02/18 12/03/18 Range/Units 16:50 21:09 06:40 RBC 2.98 L (3.80-5.40) m/uL Hgb 8.9 L (11.4-16.0) gm/dL Hct 30.2 L (34.0-46.0) % MCV 101.1 H (80.0-100.0) fL MCHC 29.5 L (31.0-37.0) g/dL RDW 15.6 H (11.5-15.5) % Sodium (137-145) mmol/L Chloride (98-107) mmol/L BUN (7-17) mg/dL Creatinine (0.52-1.04) mg/dL POC Glucose (mg/dL) 130 H 116 H (75-99) mg/dL Calcium (8.4-10.2) mg/dL 12/03/18 12/03/18 Range/Units 06:40 11:58 RBC (3.80-5.40) m/uL Hgb (11.4-16.0) gm/dL Hct (34.0-46.0) % MCV (80.0-100.0) fL MCHC (31.0-37.0) g/dL RDW (11.5-15.5) % Sodium 146 H (137-145) mmol/L Chloride 113 H (98-107) mmol/L BUN 35 H (7-17) mg/dL Creatinine 2.62 H (0.52-1.04) mg/dL POC Glucose (mg/dL) 100 H (75-99) mg/dL Calcium 7.5 L (8.4-10.2) mg/dL
[2018-12-03] MEDS ORDERED: BUTALB/APAP/CAFF 50-325-40MG TAB PO PRN ×2 (13:55)
[2018-12-03] MEDS ORDERED: BUTALB/APAP/CAFF 50-325-40MG TAB PO STA (13:55)
[2018-12-03] MEDS: CEFDINIR 300 MG CAP PO SCH ×2 (15:41→22:29)
--- NOTE | 2018-12-03 15:59 | P.PN ---
Subjective Progress Note Date: 12/03/18 This is 63-year-old female transported by EMS to the ER, status post fall with generalized weakness in a patient with history of COPD, CHF, diabetes mellitus, hypertension, hyperlipidemia, seizure disorder, anxiety, bipolar, depression, history of nicotine abuse, occasional marijuana use and multiple other medical issues. States "legs gave out". Denies syncope. Denies incontinence of urine or bowel movement. States fell back and hit the back of her head. Recently patient developed earache/placed on Bactrim. Also takes bisoprolol-HCTZ, Lasix, denies NSAID use. Brain CT reported no acute process. EKG currently unable to open, appears to have been scanned. Troponins pending. Telemetry sinus rhythm to sinus tach, low 100s with bundle branch block. Denies chest pain or palpitations. Denies shortness of breath. Denies lightheadedness or dizziness, no focal deficits. Denies nausea vomiting or diarrhea. Creatinine 4.99 with a baseline of 2.5-3, Potassium 6.2, hemoglobin 7.4-Baseline 10, on admission. Bicarb 12. Received Kayexalate. Patient also presents with urinary retention.VSS, maintaining O2 sats in the 90s on 4 L nasal cannula( baseline). 11/29/2018: hemoglobin 7.4 on admission is now down to 6.5. Her potassium originally at 6.5, is now down to 4.2. Her GFR is improved from 9 to 12. Her creatinine is improved from 4.9 down to 3.86. Due to her CHF, they did not rehydrate her very much. IV fluids were started yesterday of D5 at 75 mL per hour. She has not stooled since admission and denied any hematochezia or melena. Currently she denies any chest pains, pressures, or shortness of breath. She denies any nausea or vomiting. Nephrology is seen her and recommendations are noted. She spent a transfusion 1 unit packed red blood cells. 11/30/2018: Patient's hemoglobin is now 8.1. She tells me she does not feel well. Her GFR is now improved to 16. Her creatinine is 3.0. Her calcium remains low at 6.4. She received 1 g of calcium gluconate yesterday. She remains on sodium bicarbonate. Incidental finding of abnormal troponin at 0.05 for today. Previous 3 done 2 days ago were all normal. She denies any chest pains, shortness of breath, nausea vomiting. She remains on oxygen at 3 L via nasal cannula. He does complain of left ear pain. Indicated is been going on for a month. 12/01/2018 maintained on half normal saline, oral sodium bicarb , renal function slowly improving .Complaining of left flank pain. Renal ultrasound reporting nonobstructing 1.7 cm right renal calculus, multiple bilateral renal cysts and some renal lesions are too small to accurately characterize with no hydronephrosis of either kidney. Pelvis ultrasound reporting unremarkable. Doppler negative for DVT. Elevated troponins, cardiology consulted, in a patient with history of ischemic cardiomyopathy. Complains of generalized weakness, PT/OT consulted for potential subacute rehab at discharge. Denies chest pain, palpitations or shortness of breath. Denies lightheadedness dizziness or focal deficits. Orthostatic vital signs pending. 12/02/2018 echo reported septal wall motion delayed EF 45-50%; discussed with cardiology, actually improved from prior echo in June reporting EF 30-35%, in a patient with known ischemic cardiomyopathy,Minimal orthostatic hypotension. Creatinine 2.64, baseline. Orhtostatic signs reported systolic blood pressure 148 sitting, dropped to 134 upon standing-symptomatic. Underwent a tilt table with cardiology reporting no evidence for distant insomnia no evidence for neurocardiogenic syncope, 12-lead EKG showed sinus rhythm with left bundle branch block. Complains of headache. Maintaining O2 sats in the 90s, on 3 L nasal cannula, normally wears 4 L at home. calcium remains low at 6.8. Evaluated by PT/OT was subacute rehab recommended at discharge. Afebrile. Denies chest pain, palpitations or increasing shortness of breath. 12/03/2018 calcium up to 7.5. Telemetry sinus rhythm. Ambulating greater dist ances without difficulty, now. Per social work patient no longer qualifies for subacute rehab., according to OT's notes. Continues to have significant global headache. Brain CT completed reporting no acute intracranial hemorrhage or midline shift, mild diffuse age-related cerebral atrophy, chronic small vessel disease, with no significant change from prior. Suspect left-sided mastoiditis. Fioricet, Cefdnir added to med regime. Objective - Vital Signs Vital signs: Vital Signs Temp 98.3 F 12/03/18 08:00 Pulse 101 H 12/03/18 08:00 Resp 18 12/03/18 08:00 BP 154/89 12/03/18 08:00 Pulse Ox 99 12/03/18 08:00 Intake & Output 12/02/18 12/03/18 12/03/18 18:59 06:59 18:59 Intake Total 160 220 Output Total 2 Balance 158 220 Weight 84.7 kg Intake: Intake, IV Titration 160 100 Amount Sodium Chloride 0.45% 1, 160 0 000 ml @ 50 mls/hr IV . Q20H BHAVIK Rx#:[id number] Sodium Chloride 0.9% 1, 100 000 ml @ 20 mls/hr IV . Q24H BHAVIK Rx#:[id number] Oral 120 Output: Emesis 2 Other: Voiding Method Bedside Commode # Voids 2 - Exam GENERAL: Lying in bed, no acute distress HEENT: Head atraumatic, pupils equal, conjunctiva normal, oral mucosa moist NECK: Supple, No JVD. No thyroid enlargement. No LNs CARDIOVASCULAR: S1, S2 regular.No murmur RESPIRATION: Breath sounds diminished in the bases. No rhonchi, fine bibasilar crackles. No expiratory wheezing ABDOMEN: Soft, nontender . No guarding. no masses palpable. Bowel sounds heard. LEGS: No edema. no swelling. No clubbing. PSYCHIATRY: Alert and oriented X3, mood and affect normal. NERVOUS SYSTEM: Cranial N 2-12 grossly normal. Moves all 4 limbs. Diffuse weakness No focal deficits. Skin: no lesions, no rash Lymphatic system. No LN neck axilla or groin. - Labs CBC & Chem 7: 12/03/18 06:40 12/03/18 06:40 Labs: Abnormal Lab Results - Last 24 Hours (Table) 12/02/18 12/02/18 12/02/18 Range/Units 12:02 16:50 21:09 RBC (3.80-5.40) m/uL Hgb (11.4-16.0) gm/dL Hct (34.0-46.0) % MCV (80.0-100.0) fL MCHC (31.0-37.0) g/dL RDW (11.5-15.5) % Sodium (137-145) mmol/L Chloride (98-107) mmol/L BUN (7-17) mg/dL Creatinine (0.52-1.04) mg/dL POC Glucose (mg/dL) 124 H 130 H 116 H (75-99) mg/dL Calcium (8.4-10.2) mg/dL 12/03/18 12/03/18 Range/Units 06:40 06:40 RBC 2.98 L (3.80-5.40) m/uL Hgb 8.9 L (11.4-16.0) gm/dL Hct 30.2 L (34.0-46.0) % MCV 101.1 H (80.0-100.0) fL MCHC 29.5 L (31.0-37.0) g/dL RDW 15.6 H (11.5-15.5) % Sodium 146 H (137-145) mmol/L Chloride 113 H (98-107) mmol/L BUN 35 H (7-17) mg/dL Creatinine 2.62 H (0.52-1.04) mg/dL POC Glucose (mg/dL) (75-99) mg/dL Calcium 7.5 L (8.4-10.2) mg/dL Assessment and Plan Assessment: -Acute on chronic renal failure stage IV, in a patient who had been on Bactrim, bisoprolol-HCTZ, Lasix. denies NSAID use. Baseline creatinine 2.5-3. -Hyperkalemia secondary to the above, resolved -Acute on chronic anemia, baseline 10 -Fall with generalized weakness, no syncope. Status post tilt table. -Abnormal troponins, possibly secondary to renal failure, anemia in a patient with history of ischemic cardiomyopathy, cardiology consulted. -Essential primary hypertension -Chronic respiratory failure, wears 4 L nasal cannula O2 at home. -COPD -Diabetes mellitus -Hyperlipidemia -Seizure disorder -Anxiety, depression -Bipolar -History of nicotine abuse -Occasional marijuana use -Chronic systolic CHF -Noncompliance. -Elevated troponins in a patient with history of ischemic cardiomyopathy -Otitis media -Hypocalcemia, oral vitamin D supplementation initiated -Metabolic acidosis secondary to renal failure, improving currently on oral bicarbonate. Plan: Continue current medication regime ,monitoring and symptomatic treatment. Brain CT suggestive of possible mastoiditis though patient is not having any mastoid pain .Fioricet, Cefdnir added to med regime Close monitoring of electrolytes with repeat labs ordered for a.m. Discharge planning in progress for tomorrow. The impression and plan of care has been dictated as directed. : I performed a history and examination of this patient, discussed the same with the dictator. I agree with the dictator's note ,documented as a scribe. Any additional findings or plans will be noted. Time taken: 35 minutes -
[2018-12-03 17:16] LABS: Glucose,Whole Blood 141 mg/dL (75-99)
[2018-12-03] MEDS: MONTELUKAST 10 MG TAB PO SCH (22:28)
[2018-12-03] MEDS: FENOFIBRATE 160 MG TAB PO SCH (22:29)
[2018-12-03] MEDS: QUEtiapine 50 MG TAB PO SCH (22:29)
[2018-12-04] MEDS: HYDROcodone/APAP 5-325MG 1 EACH TAB PO PRN ×2 (03:10→10:28)
[2018-12-04 06:15] VITALS: RESP 16
[2018-12-04] MEDS: SYMBICORT 160-4.5 MCG INHALER INHALATION SCH (07:42)
[2018-12-04] MEDS ORDERED: METOPROLOL SUCCINATE (ER) 50 MG TAB.ER.24H PO SCH (09:55)
[2018-12-04] MEDS ORDERED: METOPROLOL SUCCINATE (ER) 50 MG TAB.ER.24H PO STA (09:57)
[2018-12-04] MEDS: CIPROFLOXACIN-DEXAMETH 0.3-0.1% DROPS 7.5 ML BTL LEFT EAR SCH (10:29)
[2018-12-04] MEDS: PANTOPRAZOLE 40 MG TABLET PO SCH (10:30)
[2018-12-04] MEDS: METOPROLOL SUCCINATE (ER) 50 MG TAB.ER.24H PO STA (10:32)
[2018-12-04] MEDS: CEFDINIR 300 MG CAP PO SCH (10:35)
[2018-12-04] MEDS: FOLIC ACID 1 MG TAB PO SCH (10:35)
[2018-12-04] MEDS: ISOSORBIDE MONONITRATE ER 60 MG TAB.ER.24H PO SCH (10:36)
[2018-12-04] MEDS: PHENYTOIN SODIUM EXTENDED 100 MG CAP PO SCH (10:36)
[2018-12-04] MEDS: SERTRALINE 100 MG TAB PO SCH (10:37)
[2018-12-04] MEDS: PRIMIDONE 50 MG TAB PO SCH (10:37)
--- NOTE | 2018-12-04 11:54 | P.DS ---
Providers Date of admission: 11/28/18 01:49 Expected date of discharge: 12/04/18 Attending physician: Adal Mari Consults: 11/28/18 01:50 Consult Physician Routine Consulting Provider: Kaia Gunderson Consult Reason/Comments: Chronic renal failure. Hyperkalemia. Do you want consulting provider notified?: Yes 11/30/18 15:46 Consult Physician Routine Consulting Provider: Viet Diaz Consult Reason/Comments: +troponin Do you want consulting provider notified?: Yes Primary care physician: [facility] Course: Final Diagnoses: -Acute on chronic renal failure stage IIIB to IV, in a patient who had been on Bactrim, bisoprolol-HCTZ, Lasix. denies NSAID use. Baseline creatinine 2.5-3. -Hyperkalemia secondary to the above, resolved -Acute on chronic anemia, baseline 10 -Fall with generalized weakness, no syncope. Status post tilt table. -Abnormal troponins, possibly secondary to renal failure, anemia in a patient with history of ischemic cardiomyopathy, cardiology consulted. Mild cardiomyopathy which is improved since June 2018. -Essential primary hypertension -Chronic respiratory failure, wears 4 L nasal cannula O2 at home. -COPD -Diabetes mellitus -Hyperlipidemia -Seizure disorder -Anxiety, depression -Bipolar -History of nicotine abuse -Occasional marijuana use -Chronic systolic CHF -Noncompliance. -Elevated troponins in a patient with history of ischemic cardiomyopathy -Otitis media -Hypocalcemia, oral vitamin D supplementation initiated -Metabolic acidosis secondary to renal failure, improving on oral bicarbonate. -Possible left-sided mastoiditis Hospital course:This is 63-year-old female transported by EMS to the ER, status post fall with generalized weakness in a patient with history of COPD, CHF, diabetes mellitus, hypertension, hyperlipidemia, seizure disorder, anxiety, bipolar, depression, history of nicotine abuse, occasional marijuana use and multiple other medical issues. States "legs gave out". Denies syncope. Denies incontinence of urine or bowel movement. States fell back and hit the back of her head. Recently patient developed earache/placed on Bactrim. Also takes bisoprolol-HCTZ, Lasix, denies NSAID use. Brain CT reported no acute process. EKG currently unable to open, appears to have been scanned. Troponins pending. Telemetry sinus rhythm to sinus tach, low 100s with bundle branch block. Denies chest pain or palpitations. Denies shortness of breath. Denies lightheadedness or dizziness, no focal deficits. Denies nausea vomiting or diarrhea. Creatinine 4.99 with a baseline of 2.5-3, Potassium 6.2, hemoglobin 7.4-Baseline 10, on admission. Bicarb 12. Received Kayexalate. Patient also presents with urinary retention.VSS, maintaining O2 sats in the 90s on 4 L nasal cannula( baseline). 11/29/2018: hemoglobin 7.4 on admission is now down to 6.5. Her potassium originally at 6.5, is now down to 4.2. Her GFR is improved from 9 to 12. Her creatinine is improved from 4.9 down to 3.86. Due to her CHF, they did not rehydrate her very much. IV fluids were started yesterday of D5 at 75 mL per hour. She has not stooled since admission and denied any hematochezia or melena. Currently she denies any chest pains, pressures, or shortness of breath. She denies any nausea or vomiting. Nephrology is seen her and recommendations are noted. She spent a transfusion 1 unit packed red blood cells. 11/30/2018: Patient's hemoglobin is now 8.1. She tells me she does not feel well. Her GFR is now improved to 16. Her creatinine is 3.0. Her calcium remains low at 6.4. She received 1 g of calcium gluconate yesterday. She remains on sodium bicarbonate. Incidental finding of abnormal troponin at 0.05 for today. Previous 3 done 2 days ago were all normal. She denies any chest pains, shortness of breath, nausea vomiting. She remains on oxygen at 3 L via nasal cannula. He does complain of left ear pain. Indicated is been going on for a month. 12/01/2018 maintained on half normal saline, oral sodium bicarb , renal function slowly improving .Complaining of left flank pain. Renal ultrasound reporting nonobstructing 1.7 cm right renal calculus, multiple bilateral renal cysts and some renal lesions are too small to accurately characterize with no hydronephrosis of either kidney. Pelvis ultrasound reporting unremarkable. Doppler negative for DVT. Elevated troponins, cardiology consulted, in a patient with history of ischemic cardiomyopathy. Complains of generalized weakness, PT/OT consulted for potential subacute rehab at discharge. Denies chest pain, palpitations or shortness of breath. Denies lightheadedness dizziness or focal deficits. Orthostatic vital signs pending. 12/02/2018 echo reported septal wall motion delayed EF 45-50%; discussed with cardiology, actually improved from prior echo in June reporting EF 30-35%, in a patient with known ischemic cardiomyopathy,Minimal orthostatic hypotension. Creatinine 2.64, baseline. Orhtostatic signs reported systolic blood pressure 148 sitting, dropped to 134 upon standing-symptomatic. Underwent a tilt table with cardiology reporting no evidence for distant insomnia no evidence for neurocardiogenic syncope, 12-lead EKG showed sinus rhythm with left bundle branch block. Complains of headache. Maintaining O2 sats in the 90s, on 3 L nasal cannula, normally wears 4 L at home. calcium remains low at 6.8. Evaluated by PT/OT was subacute rehab recommended at discharge. Afebrile. Denies chest pain, palpitations or increasing shortness of breath. 12/03/2018 calcium up to 7.5. Telemetry sinus rhythm. Ambulating greater distances without difficulty, now. Per social work patient no longer qualifies for subacute rehab., according to OT's notes. Continues to have significant denys bal headache. Brain CT completed reporting no acute intracranial hemorrhage or midline shift, mild diffuse age-related cerebral atrophy, chronic small vessel disease, with no significant change from prior. Suspect left-sided mastoiditis. Fioricet, Cefdnir added to med regime. Significant clinical improvement. Feels better, denies headache. Patient will be discharged home pending final DC recommendations and clearance from cardiology and nephrology, in a stable condition with guarded prognosis. - Exam GENERAL: Alert and oriented 3, no acute distress. CARDIOVASCULAR: S1, S2 regular.No murmur. No edema. RESPIRATION: Breath sounds diminished in the bases. ABDOMEN: Soft, nontender . No guarding. no masses palpable. Bowel sounds heard. NERVOUS SYSTEM:No focal deficits. The impression and plan of care has been dictated as directed. : I performed a history and examination of this patient, discussed the same with the dictator. I agree with the dictator's note ,documented as a scribe. Any additional findings or plans will be noted. Time taken: 35 minutes Patient Condition at Discharge: Stable Plan - Discharge Summary New Discharge Prescriptions: New Cefdinir [Omnicef] 300 mg PO BID #16 cap Ergocalciferol [Vitamin D2 (DRISDOL)] 50,000 unit PO Q72H #10 cap Metoprolol Succinate (ER) [Toprol XL] 100 mg PO DAILY #60 tab.er.24h Budesonide-Formot 160-4.5 Mcg [Symbicort 160-4.5 Mcg Inhaler] 2 puff INHALATION BID #1 inhaler Continue Sertraline [Zoloft] 200 mg PO DAILY Phenytoin Sodium Extended [Dilantin] 100 mg PO TID QUEtiapine FUMARATE 150 mg PO HS@1999 Folic Acid 1 mg PO DAILY Gemfibrozil [Lopid] 1,200 mg PO HS Montelukast [Singulair] 10 mg PO HS #30 tab Sodium Bicarbonate Tab 1,300 mg PO BID #60 tab Omeprazole [PriLOSEC] 20 mg PO DAILY Calcitriol 0.5 mcg PO MOWEFR Primidone [Mysoline] 50 mg PO BID Isosorbide Mononitrate ER [Imdur] 60 mg PO DAILY #30 tab.er.24h Ipratropium-Albuterol Nebulize [Duoneb 0.5 mg-3 mg/3 ml Soln] 3 ml INHALATION RT-QID PRN PRN Reason: Shortness Of Breath HYDROcodone/APAP 5-325MG [Walker 5-325] 1 tab PO Q6HR PRN PRN Reason: pain Discontinued Cyclobenzaprine [Flexeril] 5 mg PO BID PRN PRN Reason: Muscle Spasm Bisoprolol-Hctz 5-6.25 mg [Ziac 5-6.25 MG] 1 tab PO DAILY Discharge Medication List Phenytoin Sodium Extended [Dilantin] 100 mg PO TID 11/29/15 [History] Sertraline [Zoloft] 200 mg PO DAILY 11/29/15 [History] Folic Acid 1 mg PO DAILY 07/22/17 [History] QUEtiapine FUMARATE 150 mg PO HS@199907/22/17 [History] Gemfibrozil [Lopid] 1,200 mg PO HS 09/05/17 [History] Montelukast [Singulair] 10 mg PO HS #30 tab 12/26/17 [Rx] Sodium Bicarbonate Tab 1,300 mg PO BID #60 tab 02/23/18 [Rx] Calcitriol 0.5 mcg PO MOWEFR 07/20/18 [History] Omeprazole [PriLOSEC] 20 mg PO DAILY 07/20/18 [History] Primidone [Mysoline] 50 mg PO BID 07/20/18 [History] Isosorbide Mononitrate ER [Imdur] 60 mg PO DAILY #30 tab.er.24h 07/24/18 [Rx] Ipratropium-Albuterol Nebulize [Duoneb 0.5 mg-3 mg/3 ml Soln] 3 ml INHALATION RT-QID PRN 11/27/18 [History] HYDROcodone/APAP 5-325MG [Walker 5-325] 1 tab PO Q6HR PRN 11/28/18 [History] Budesonide-Formot 160-4.5 Mcg [Symbicort 160-4.5 Mcg Inhaler] 2 puff INHALATION BID #1 inhaler 12/04/18 [Rx] Cefdinir [Omnicef] 300 mg PO BID #16 cap 12/04/18 [Rx] Ergocalciferol [Vitamin D2 (DRISDOL)] 50,000 unit PO Q72H #10 cap 12/04/18 [Rx] Metoprolol Succinate (ER) [Toprol XL] 100 mg PO DAILY #60 tab.er.24h 12/04/18 [Rx] Follow up Appointment(s)/Referral(s): [facility] [Provider Group] - 1 Week Kaia Gunderson MD [STAFF PHYSICIAN] - 1 Week Adal Mari Jr, DO [Primary Care Provider] - 3 Days Ambulatory/Diagnostic Orders: Complete Blood Count w/diff [LAB.AMB] Time Frame: 3 Days, Location: None Se lected Patient Instructions/Handouts: Chronic Kidney Disease (DC), Anemia (DC) Activity/Diet/Wound Care/Special Instructions: Diuretics as per nephrology
--- NOTE | 2018-12-04 12:00 | PN ---
PROGRESS NOTE The patient is seen for followup for chronic kidney disease and acute kidney injury. Her renal function has improved. Serum creatinine is down to 2.6, which is close to her baseline. She denies any significant complaints. Her nausea has improved. She is eating. Patient is off of IV fluids. PHYSICAL EXAMINATION: On examination, blood pressure was 163/92, heart rate about 90 per minute. She is afebrile. EXAMINATION OF THE HEART: S1 and S2. EXAMINATION OF THE LUNGS: Bilateral breath sounds are heard. Abdomen is soft, nontender. Examination of the lower extremities shows trace edema bilaterally. LABS: Labs show sodium 146, potassium 4.5, serum creatinine 2.6 from yesterday. ASSESSMENT: 1. Chronic kidney disease NKF stage 4 renal function at baseline. 2. Acute kidney injury, prerenal, currently resolved. The patient is off of IV fluids. 3. Metabolic acidosis associated with renal failure, status post IV bicarb. Currently maintained on oral sodium bicarb. 4. Hypocalcemia associated with severe nutritional vitamin D deficiency, maintained on vitamin D supplementation. 5. Anemia, status post packed RBCs transfusion. No active bleeding noted. 6. Hyperkalemia associated with acute kidney injury. Potassium supplementation and metabolic acidosis currently resolved. PLAN: The patient is stable for discharge from Nephrology standpoint. Follow up as outpatient. MMODL / IJN: [id number] /
[2018-12-04 12:53] VITALS: BP 178/84; PULSE 88; TEMP 98.4
[2018-12-04 19:01] LABS: Hemoglobin A1C 5.1 % (4.0-6.0)
[2018-12-05] MEDS ORDERED: CEFDINIR 300 MG CAP PO SCH (09:00)
[2018-12-05] MEDS ORDERED: METOPROLOL SUCCINATE (ER) 100 MG TAB.ER.24H PO SCH (09:00)
== END 2018-12-04 14:20 | disposition home or self-care (01) | DRG 683 ==
LOC: EC 20:49 → 3SCARD 11-28 01:49 → 3NMEDONC 12-03 17:25
PROVIDERS: ADMIT Family Medicine; ATTEND Family Medicine
PROC: 30233N1 Transfusion of Nonautologous Red Blood Cells into Peripheral Vein, Percutaneous Approach (ICD-10-PCS; principal; 2018-11-29)
PROC: 4A02XFZ Measurement of Cardiac Rhythm, External Approach (ICD-10-PCS; 2018-12-02)
PROC: 4A03XB1 Measurement of Arterial Pressure, Peripheral, External Approach (ICD-10-PCS; 2018-12-02)
DX: N17.9 Acute kidney failure, unspecified (principal); I13.0 Hypertensive heart and chronic kidney disease with heart failure and stage 1 through stage 4 chronic kidney disease, or unspecified chronic kidney disease; I50.22 Chronic systolic (congestive) heart failure; J96.10 Chronic respiratory failure, unspecified whether with hypoxia or hypercapnia; F31.30 Bipolar disorder, current episode depressed, mild or moderate severity, unspecified; E87.2 Acidosis; E11.22 Type 2 diabetes mellitus with diabetic chronic kidney disease; N18.4 Chronic kidney disease, stage 4 (severe); E83.51 Hypocalcemia; E87.5 Hyperkalemia; N28.1 Cyst of kidney, acquired; H70.92 Unspecified mastoiditis, left ear; D63.1 Anemia in chronic kidney disease; E78.5 Hyperlipidemia, unspecified; F41.9 Anxiety disorder, unspecified; J44.9 Chronic obstructive pulmonary disease, unspecified; N20.0 Calculus of kidney; I44.7 Left bundle-branch block, unspecified; E55.9 Vitamin D deficiency, unspecified; E78.00 Pure hypercholesterolemia, unspecified; I25.5 Ischemic cardiomyopathy; H66.90 Otitis media, unspecified, unspecified ear; R33.9 Retention of urine, unspecified; G40.909 Epilepsy, unspecified, not intractable, without status epilepticus; R29.6 Repeated falls; R77.8 Other specified abnormalities of plasma proteins; Z99.81 Dependence on supplemental oxygen; Z79.899 Other long term (current) drug therapy; Z91.19 Patient's noncompliance with other medical treatment and regimen; Z90.710 Acquired absence of both cervix and uterus; Z98.890 Other specified postprocedural states; Z91.81 History of falling; Z87.891 Personal history of nicotine dependence; Z88.0 Allergy status to penicillin; Z83.3 Family history of diabetes mellitus; W18.30XA Fall on same level, unspecified, initial encounter; Y92.009 Unspecified place in unspecified non-institutional (private) residence as the place of occurrence of the external cause; Z82.49 Family history of ischemic heart disease and other diseases of the circulatory system
CPT/HCPCS: 36415; 70450; 71046; 76770; 76856; 76857; 80048; 80053; 80185; 81001; 82140; 82306; 83036; 83540; 83550; 83735; 84484; 85025; 86850; 86900; 86901; 86920; 93005; 93306; 93660; 94640; 94760; 99285

== ENCOUNTER 2018-12-17 12:53 | Observation (INO) | payer OTHER ==
[2018-12-17] MEDS ORDERED: methylPREDNISolone SOD SUCCI 125 MG/2 ML VIAL IV STA (13:40)
[2018-12-17] MEDS ORDERED: IPRATROPIUM-ALBUTEROL 3 ML NEB INHALATION STA (13:40)
--- NOTE | 2018-12-17 13:45 | ED ---
General Adult HPI - General Source: patient, magazine hand, RN notes reviewed Mode of arrival: ambulatory Limitations: no limitations <Robert Polo - Last Filed: 12/17/18 15:31> <Michael Coello - Last Filed: 12/17/18 15:45> - General Chief complaint: Weakness Stated complaint: COPD, GUERO Time Seen by Provider: 12/17/18 13:04 - History of Present Illness Initial comments: This a 63-year-old female presents emergency Department chief complaint of cough congestion not feeling well. Patient was recently hospitalized was. Follow-up with Dr. Mari today for posthospitalization follow-up. Patient states that she told office that she was not feeling well and metoprolol emergency department. Patient states she's been feeling under the weather. Patient states that she's had a slight cough, sinus congestion. She is a former smoker quit approximately 3 years ago. She states she has some tightness but no exact chest pain. Patient states on her last hospitalization at told her that she has congestive heart failure she also has known kidney disease and which she has been told she may need dialysis at some point. (Robert Polo) - Related Data Home Medications Medication Instructions Recorded Confirmed Phenytoin Sodium Extended 100 mg PO TID 11/29/15 12/17/18 [Dilantin] Sertraline [Zoloft] 200 mg PO DAILY 11/29/15 12/17/18 Folic Acid 1 mg PO DAILY 07/22/17 12/17/18 QUEtiapine FUMARATE 150 mg PO HS@199907/22/17 12/17/18 Gemfibrozil [Lopid] 1,200 mg PO HS 09/05/17 12/17/18 Calcitriol 0.5 mcg PO MOWEFR 07/20/18 12/17/18 Omeprazole [PriLOSEC] 20 mg PO DAILY 07/20/18 12/17/18 Primidone [Mysoline] 50 mg PO BID 07/20/18 12/17/18 Ipratropium-Albuterol Nebulize 3 ml INHALATION RT-QID PRN 11/27/18 12/17/18 [Duoneb 0.5 mg-3 mg/3 ml Soln] HYDROcodone/APAP 5-325MG [[place] 1 tab PO Q6HR PRN 11/28/18 12/17/18 5-325] Budesonide-Formot 160-4.5 Mcg 2 puff INHALATION RT-BID 12/17/18 12/17/18 [Symbicort 160-4.5 Mcg Inhaler] Previous Rx's Medication Instructions Recorded Montelukast [Singulair] 10 mg PO HS #30 tab 12/26/17 Sodium Bicarbonate Tab 1,300 mg PO BID #60 tab 02/23/18 Isosorbide Mononitrate ER [Imdur] 60 mg PO DAILY #30 tab.er.24h 07/24/18 Cefdinir [Omnicef] 300 mg PO BID #16 cap 12/04/18 Ergocalciferol [Vitamin D2 50,000 unit PO Q72H #10 cap 12/04/18 (DRISDOL)] Metoprolol Succinate (ER) [Toprol 100 mg PO DAILY #60 tab.er.24h 12/04/18 XL] Allergies Allergy/AdvReac Type Severity Reaction Status Date / Time Penicillins Allergy Mild Swelling Verified 12/17/18 13:30 Review of Systems ROS Other: All systems not noted in ROS Statement are negative. <Robert Polo - Last Filed: 12/17/18 15:31> ROS Other: All systems not noted in ROS Statement are negative. <Michael Coello - Last Filed: 12/17/18 15:45> ROS Statement: Those systems with pertinent positive or pertinent negative responses have been documented in the HPI. Past Medical History Past Medical History: COPD, Diabetes Mellitus, Hyperlipidemia, Hypertension, Seizure Disorder History of Any Multi-Drug Resistant Organisms: None Reported Past Surgical History: Hysterectomy Additional Past Surgical History / Comment(s): ESWL Past Anesthesia/Blood Transfusion Reactions: No Reported Reaction Past Psychological History: Anxiety, Bipolar, Depression Smoking Status: Former smoker Past Alcohol Use History: None Reported Past Drug Use History: Marijuana, Prescription Drug Abuse - Past Family History Mother Family Medical History: Diabetes Mellitus, Hypertension Father Family Medical History: Hypertension <Robert Polo - Last Filed: 12/17/18 15:31> General Exam General appearance: alert, in no apparent distress Head exam: Present: atraumatic, normocephalic, normal inspection Eye exam: Present: normal appearance, PERRL, EOMI. Absent: scleral icterus, conjunctival injection, periorbital swelling ENT exam: Present: normal exam, normal oropharynx, mucous membranes moist Neck exam: Present: normal inspection, full ROM. Absent: tenderness, meningismus, lymphadenopathy Respiratory exam: Present: wheezes, decreased breath sounds. Absent: normal lung sounds bilaterally, respiratory distress, rales, rhonchi, stridor Cardiovascular Exam: Present: regular rate, normal rhythm, normal heart sounds. Absent: systolic murmur, diastolic murmur, rubs, gallop, clicks GI/Abdominal exam: Present: soft, normal bowel sounds. Absent: distended, tenderness, guarding, rebound, rigid Back exam: Absent: CVA tenderness (R), CVA tenderness (L) Skin exam: Present: warm, dry, intact, normal color. Absent: rash <Robert Polo - Last Filed: 12/17/18 15:31> Course <Michael Coello - Last Filed: 12/17/18 15:45> Vital Signs 12/17/18 12/17/18 12/17/18 12:54 13:10 13:30 Temperature 98.3 F Pulse Rate 95 87 Respiratory 20 11 L Rate Blood Pressure 137/73 115/59 O2 Sat by Pulse 97 97 98 Oximetry 12/17/18 12/17/18 12/17/18 14:00 14:09 14:10 Temperature Pulse Rate 88 88 88 Respiratory 22 16 Rate Blood Pressure 133/93 133/77 O2 Sat by Pulse 100 100 Oximetry 12/17/18 12/17/18 12/17/18 14:23 14:30 15:00 Temperature Pulse Rate 88 88 90 Respiratory 21 20 Rate Blood Pressure 133/77 132/63 O2 Sat by Pulse 100 98 Oximetry 12/17/18 15:30 Temperature Pulse Rate 92 Respiratory 10 L Rate Blood Pressure 148/72 O2 Sat by Pulse 97 Oximetry - Reevaluation(s) Reevaluation #1: 12/17/18 15:44 PA supervision: I proceeded [id number] evaluation the patient she does present with complaints of shortness of breath exertional dyspnea cough and congestion she does demonstrate evidence of acute on chronic renal failure with a BNP of 6000 consistent with heart failure. Exam shows diminished breath sounds and basilar rales. I did discuss the case with Dr. Mari. Patient will be admitted with nephrology consultation. (Michael Coello) EKG Findings - EKG Comments: EKG Findings:: EKG performed at 1328 normal sinus rhythm with left bundle block, rate of 87 IA 182 QRS 134 QT/QTC 454/546. Repeat EKG performed at 15:30 normal sinus rhythm no acute changes from earlier rate of 93 by mouth any 4 QRS 136 QTC is QTC 4:30/534 <Robert Polo - Last Filed: 12/17/18 15:31> Medical Decision Making - Lab Data Result diagrams: 12/17/18 13:42 12/17/18 13:42 <Robert Polo - Last Filed: 12/17/18 15:31> - Lab Data Result diagrams: 12/17/18 13:42 12/17/18 13:42 <Michael Coello - Last Filed: 12/17/18 15:45> - Medical Decision Making 63-year-old female presented for denies not feeling well, worsening fatigue and shortness of breath. Patient is found to be dyspneic, diffuse wheezing. Patient was given treatments. Patient has mild COPD exacerbation with acute on chronic renal failure. Patient will be admitted for IV steroids, for evaluation she did complain of chest pain which has mild elevation of troponin most likely related to her kidney disease. (Robert Polo) - Lab Data Lab Results 12/17/18 12/17/18 12/17/18 Range/Units 13:42 13:42 13:42 WBC 3.7 L (3.8-10.6) k/uL RBC 2.68 L (3.80-5.40) m/uL Hgb 8.2 L (11.4-16.0) gm/dL Hct 28.3 L (34.0-46.0) % MCV 105.6 H (80.0-100.0) fL MCH 30.8 (25.0-35.0) pg MCHC 29.1 L (31.0-37.0) g/dL RDW 16.3 H (11.5-15.5) % Plt Count 207 (150-450) k/uL Neutrophils % 64 % Lymphocytes % 21 % Monocytes % 8 % Eosinophils % 3 % Basophils % 1 % Neutrophils # 2.4 (1.3-7.7) k/uL Lymphocytes # 0.8 L (1.0-4.8) k/uL Monocytes # 0.3 (0-1.0) k/uL Eosinophils # 0.1 (0-0.7) k/uL Basophils # 0.0 (0-0.2) k/uL Hypochromasia Marked Poikilocytosis Slight Anisocytosis Slight Macrocytosis Moderate PT (9.0-12.0) sec INR (<1.2) APTT (22.0-30.0) sec Sodium 142 (137-145) mmol/L Potassium 5.3 H (3.5-5.1) mmol/L Chloride 114 H (98-107) mmol/L Carbon Dioxide 15 L (22-30) mmol/L Anion Gap 13 mmol/L BUN 55 H (7-17) mg/dL Creatinine 4.31 H (0.52-1.04) mg/dL Est GFR (CKD-EPI)AfAm 12 (>60 ml/min/1.73 sqM) Est GFR (CKD-EPI)NonAf 10 (>60 ml/min/1.73 sqM) Glucose 105 H (74-99) mg/dL Plasma Lactic Acid Jd <0.5 L (0.7-2.0) mmol/L Calcium 7.0 L (8.4-10.2) mg/dL Phosphorus 6.7 H (2.5-4.5) mg/dL Magnesium 1.9 (1.6-2.3) mg/dL Total Bilirubin 0.4 (0.2-1.3) mg/dL AST 22 (14-36) U/L ALT 18 (9-52) U/L Alkaline Phosphatase 198 H (38-126) U/L Troponin I (0.000-0.034) ng/mL NT-Pro-B Natriuret Pep pg/mL Total Protein 6.8 (6.3-8.2) g/dL Albumin 4.0 (3.5-5.0) g/dL Urine Color Urine Appearance (Clear) Urine pH (5.0-8.0) Ur Specific [place] (1.001-1.035) Urine Protein (Negative) Urine Glucose (UA) (Negative) Urine Ketones (Negative) Urine Blood (Negative) Urine Nitrite (Negative) Urine Bilirubin (Negative) Urine Urobilinogen (<2.0) mg/dL Ur Leukocyte Esterase (Negative) Urine RBC (0-5) /hpf Urine WBC (0-5) /hpf Ur Squamous Epith Cells (0-4) /hpf Urine Mucus (None) /hpf 12/17/18 12/17/18 12/17/18 Range/Units 13:42 13:42 13:42 WBC (3.8-10.6) k/uL RBC (3.80-5.40) m/uL Hgb (11.4-16.0) gm/dL Hct (34.0-46.0) % MCV (80.0-100.0) fL MCH (25.0-35.0) pg MCHC (31.0-37.0) g/dL RDW (11.5-15.5) % Plt Count (150-450) k/uL Neutrophils % % Lymphocytes % % Monocytes % % Eosinophils % % Basophils % % Neutrophils # (1.3-7.7) k/uL Lymphocytes # (1.0-4.8) k/uL Monocytes # (0-1.0) k/uL Eosinophils # (0-0.7) k/uL Basophils # (0-0.2) k/uL Hypochromasia Poikilocytosis Anisocytosis Macrocytosis PT 10.0 (9.0-12.0) sec INR 0.9 (<1.2) APTT 24.1 (22.0-30.0) sec Sodium (137-145) mmol/L Potassium (3.5-5.1) mmol/L Chloride (98-107) mmol/L Carbon Dioxide (22-30) mmol/L Anion Gap mmol/L BUN (7-17) mg/dL Creatinine (0.52-1.04) mg/dL Est GFR (CKD-EPI)AfAm (>60 ml/min/1.73 sqM) Est GFR (CKD-EPI)NonAf (>60 ml/min/1.73 sqM) Glucose (74-99) mg/dL Plasma Lactic Acid Jd (0.7-2.0) mmol/L Calcium (8.4-10.2) mg/dL Phosphorus (2.5-4.5) mg/dL Magnesium (1.6-2.3) mg/dL Total Bilirubin (0.2-1.3) mg/dL AST (14-36) U/L ALT (9-52) U/L Alkaline Phosphatase (38-126) U/L Troponin I 0.043 H* (0.000-0.034) ng/mL NT-Pro-B Natriuret Pep 6000 pg/mL Total Protein (6.3-8.2) g/dL Albumin (3.5-5.0) g/dL Urine Color Urine Appearance (Clear) Urine pH (5.0-8.0) Ur Specific [place] (1.001-1.035) Urine Protein (Negative) Urine Glucose (UA) (Negative) Urine Ketones (Negative) Urine Blood (Negative) Urine Nitrite (Negative) Urine Bilirubin (Negative) Urine Urobilinogen (<2.0) mg/dL Ur Leukocyte Esterase (Negative) Urine RBC (0-5) /hpf Urine WBC (0-5) /hpf Ur Squamous Epith Cells (0-4) /hpf Urine Mucus (None) /hpf 12/17/18 Range/Units 13:53 WBC (3.8-10.6) k/uL RBC (3.80-5.40) m/uL Hgb (11.4-16.0) gm/dL Hct (34.0-46.0) % MCV (80.0-100.0) fL MCH (25.0-35.0) pg MCHC (31.0-37.0) g/dL RDW (11.5-15.5) % Plt Count (150-450) k/uL Neutrophils % % Lymphocytes % % Monocytes % % Eosinophils % % Basophils % % Neutrophils # (1.3-7.7) k/uL Lymphocytes # (1.0-4.8) k/uL Monocytes # (0-1.0) k/uL Eosinophils # (0-0.7) k/uL Basophils # (0-0.2) k/uL Hypochromasia Poikilocytosis Anisocytosis Macrocytosis PT (9.0-12.0) sec INR (<1.2) APTT (22.0-30.0) sec Sodium (137-145) mmol/L Potassium (3.5-5.1) mmol/L Chloride (98-107) mmol/L Carbon Dioxide (22-30) mmol/L Anion Gap mmol/L BUN (7-17) mg/dL Creatinine (0.52-1.04) mg/dL Est GFR (CKD-EPI)AfAm (>60 ml/min/1.73 sqM) Est GFR (CKD-EPI)NonAf (>60 ml/min/1.73 sqM) Glucose (74-99) mg/dL Plasma Lactic Acid Jd (0.7-2.0) mmol/L Calcium (8.4-10.2) mg/dL Phosphorus (2.5-4.5) mg/dL Magnesium (1.6-2.3) mg/dL Total Bilirubin (0.2-1.3) mg/dL AST (14-36) U/L ALT (9-52) U/L Alkaline Phosphatase (38-126) U/L Troponin I (0.000-0.034) ng/mL NT-Pro-B Natriuret Pep pg/mL Total Protein (6.3-8.2) g/dL Albumin (3.5-5.0) g/dL Urine Color Light Yellow Urine Appearance Clear (Clear) Urine pH 5.5 (5.0-8.0) Ur Specific [place] 1.016 (1.001-1.035) Urine Protein 2+ H (Negative) Urine Glucose (UA) Negative (Negative) Urine Ketones Negative (Negative) Urine Blood Negative (Negative) Urine Nitrite Negative (Negative) Urine Bilirubin Negative (Negative) Urine Urobilinogen <2.0 (<2.0) mg/dL Ur Leukocyte Esterase Trace H (Negative) Urine RBC 1 (0-5) /hpf Urine WBC 3 (0-5) /hpf Ur Squamous Epith Cells <1 (0-4) /hpf Urine Mucus Rare H (None) /hpf Disposition Time of Disposition: 15:33 <Robert Polo - Last Filed: 12/17/18 15:31> <Michael Coello - Last Filed: 12/17/18 15:45> Clinical Impression: Acute on chronic renal failure, Acute exacerbation of chronic obstructive airways disease, Anemia Disposition: ADMITTED IP TO THIS HOSP Condition: Fair Referrals: Adal Mari Jr, [Primary Care Provider] - 1-2 days
[2018-12-17 14:03] LABS: Anisocytosis Slight; Basophils % (A) 1 %; Eosinophils # (A) 0.1 k/uL (0-0.7); Eosinophils % (A) 3 %; HCT 28.3 % (34.0-46.0); HGB 8.2 gm/dL (11.4-16.0); Hypochromasia Marked; Lymphocytes # (A) 0.8 k/uL (1.0-4.8); Lymphocytes % (A) 21 %; MCH 30.8 pg (25.0-35.0); MCHC 29.1 g/dL (31.0-37.0); MCV 105.6 fL (80.0-100.0); Macrocytosis Moderate; Mean Platelet Volume 8.6; Monocytes # (A) 0.3 k/uL (0-1.0); Monocytes % (A) 8 %; Neutrophils # (A) 2.4 k/uL (1.3-7.7); Neutrophils % (A) 64 %; Platelet Count 207 k/uL (150-450); Poikilocytosis Slight; RBC 2.68 m/uL (3.80-5.40); RDW 16.3 % (11.5-15.5); WBC 3.7 k/uL (3.8-10.6)
[2018-12-17 14:17] LABS: INR 0.9 (<1.2); Magnesium 1.9 mg/dL (1.6-2.3); Partial Thromboplastin Time 24.1 sec (22.0-30.0); Phosphorus 6.7 mg/dL (2.5-4.5); Potassium 5.3 mmol/L (3.5-5.1); Total Bilirubin 0.4 mg/dL (0.2-1.3); Total Protein 6.8 g/dL (6.3-8.2)
[2018-12-17 14:29] LABS: Appearance,Urine Clear (Clear); Bilirubin,Urine Negative (Negative); Blood,Urine Negative (Negative); Color,Urine Light Yellow; Glucose,Urine (UA) Negative (Negative); Ketones,Urine Negative (Negative); Leukocyte Esterase,Urine Trace (Negative); Mucus,Urine Rare /hpf; Nitrite,Urine Negative (Negative); PH, Urine 5.5 (5.0-8.0); Protein,Urine 2+ (Negative); RBC,Urine 1 /hpf (0-5); Specific Gravity,Urine 1.016 (1.001-1.035); Squamous Epithelial Cell,Urine <1 /hpf (0-4); Urobilinogen,Urine <2.0 mg/dL (<2.0)
--- NOTE | 2018-12-17 14:50 | XR ---
EXAMINATION TYPE: XR chest 2V DATE OF EXAM: 12/17/2018 COMPARISON: Chest x-ray December 01 2018. HISTORY: History of COPD with weakness and difficulty in breathing. TECHNIQUE: Frontal and lateral views of the chest are obtained. FINDINGS: There is elevation and eventration anterior aspect right hemidiaphragm. There is chronic pa renchymal change with persistent lateral right suprahilar opacity on frontal view. Left lung remains clear. No pleural effusion or pneumothorax is seen bilaterally. The cardiac silhouette size remains e nlarged. The osseous structures are intact. IMPRESSION: Chronic parenchymal changes and cardiomegaly with persistent lateral right mid to upper lung masslike opacity. No new acute infiltrate. Advise chest CT to further evaluate to rule out mass.
[2018-12-17] MEDS ORDERED: NITROGLYCERIN SL TABS 0.4 MG TAB SUBLINGUAL STA (15:34)
[2018-12-17] MEDS ORDERED: HEPARIN SODIUM,PORCINE 5,000 UNIT/ML 1 ML VIAL IV STA (15:56)
[2018-12-17] MEDS ORDERED: HEPARIN SOD,PORK IN 0.45% NACL 25,000 UNIT in 0.45% NACL 1 250ML.BAG IV SCH (16:00)
[2018-12-17] MEDS ORDERED: ASPIRIN 81 MG PO STA (16:04)
[2018-12-17] MEDS ORDERED: NITROGLYCERIN OINT 1 INCH/GM PACKET TOPICAL STA (16:04)
[2018-12-17] MEDS: IPRATROPIUM-ALBUTEROL 3 ML NEB INHALATION SCH ×2 (16:46→18:33)
[2018-12-17] MEDS: methylPREDNISolone SOD SUCCI 125 MG/2 ML VIAL IV SCH ×2 (20:49→22:25)
[2018-12-17 21:08] VITALS: BMI 33.0
[2018-12-17 21:27] LABS: Glucose,Whole Blood 141 mg/dL (75-99)
[2018-12-17] MEDS: INSULIN ASPART (NovoLOG) 100 UNIT/ML VIAL SQ SCH (21:34)
[2018-12-17] MEDS ORDERED: IPRATROPIUM-ALBUTEROL 3 ML NEB INHALATION PRN (21:40)
[2018-12-17] MEDS: PHENYTOIN SODIUM EXTENDED 100 MG CAP PO SCH (22:25)
[2018-12-17] MEDS: HYDROcodone/APAP 5-325MG 1 EACH TAB PO PRN (22:26)
[2018-12-18] MEDS ORDERED: NITROGLYCERIN SL TABS 0.4 MG TAB SUBLINGUAL ONE (00:28)
[2018-12-18 06:09] LABS: Glucose,Whole Blood 115 mg/dL (75-99)
[2018-12-18] MEDS: INSULIN ASPART (NovoLOG) 100 UNIT/ML VIAL SQ SCH ×4 (06:18→20:33)
[2018-12-18] MEDS: methylPREDNISolone SOD SUCCI 125 MG/2 ML VIAL IV SCH ×4 (06:30→23:05)
[2018-12-18] MEDS: PHENYTOIN SODIUM EXTENDED 100 MG CAP PO SCH ×3 (08:20→20:11)
[2018-12-18] MEDS: PRIMIDONE 50 MG TAB PO SCH ×2 (08:20→20:11)
[2018-12-18] MEDS: SODIUM BICARBONATE TAB 650 MG TAB PO SCH ×2 (08:20→20:11)
[2018-12-18] MEDS: PANTOPRAZOLE 40 MG TABLET PO SCH (08:20)
[2018-12-18] MEDS: METOPROLOL SUCCINATE (ER) 100 MG TAB.ER.24H PO SCH (08:20)
[2018-12-18] MEDS: ISOSORBIDE MONONITRATE ER 60 MG TAB.ER.24H PO SCH (08:20)
[2018-12-18] MEDS: FOLIC ACID 1 MG TAB PO SCH (08:20)
[2018-12-18] MEDS: ERGOCALCIFEROL 50,000 UNIT CAP PO SCH (08:20)
[2018-12-18] MEDS: SERTRALINE 100 MG TAB PO SCH (08:21)
[2018-12-18] MEDS: IPRATROPIUM-ALBUTEROL 3 ML NEB INHALATION SCH ×4 (08:25→22:14)
[2018-12-18] MEDS: SYMBICORT 160-4.5 MCG INHALER INHALATION SCH ×2 (08:25→22:14)
[2018-12-18] MEDS ORDERED: CEFDINIR 300 MG CAP PO SCH (09:00)
--- NOTE | 2018-12-18 09:40 | CONS ---
CONSULTATION CHIEF COMPLAINT: Elevated troponin. Brie is a 63-year-old lady who was recently hospitalized and was discharged home, was feeling fatigued, tired and had weakness of her legs, was supposed to see Dr. Mari as the appointment was canceled she was told to go to the emergency room if she was not feeling better and that is how she came in and got admitted. She complains of some cough, sinus congestion, but her predominant symptom is in the form of having discomfort in her legs. She had a troponin done on this admission that is mildly elevated due to which Cardiology has been consulted. The patient has had elevated troponin at last visit also and the troponin has remained the same. I believe the troponin elevation is related to renal failure. EKG shows a sinus rhythm with left bundle branch block. The patient had an echocardiogram at last admission that showed an ejection fraction of 45% to 50%. The patient has chronic renal failure, which is probably responsible for most of her symptoms. PAST MEDICAL HISTORY: Significant for hypertension, COPD, dyslipidemia. CURRENT MEDICATIONS: Current medications include Zoloft, Mysoline, Dilantin, Prilosec, Singulair, Toprol, Imdur, Lopid, folic acid, calcitriol. ALLERGIES: Allergic to PENICILLIN. FAMILY HISTORY: Negative for premature coronary artery disease. SOCIAL HISTORY: Negative for current smoking, EtOH abuse, or drug abuse. REVIEW OF SYSTEMS: HEENT is unremarkable. CARDIAC: As described above. RESPIRATORY: As described above. GI: Negative. GENITOURINARY: Negative. ALLERGY/IMMUNOLOGY: Negative. SKIN: Negative. MUSCULOSKELETAL: Significant for arthritis. PSYCHOSOCIAL: Negative. ENDOCRINE: Negative. DERM: Negative. CONSTITUTIONAL: Negative. ONCOLOGICAL: Negative. PAPER MACHINE BACKTENDER: Negative. Rest of the system review is not relevant. PHYSICAL EXAMINATION: On exam, comfortable at rest. Vital signs are stable. Chest exam reveals good air entry bilaterally. Heart exam reveals first and second heart sounds. Systolic murmur at the apex. Abdomen is soft. Examination of extremities did not reveal any edema. Peripheral pulses are felt. EKG shows sinus rhythm with left bundle branch block. Troponin is mildly elevated. She has mild LV systolic dysfunction. ASSESSMENT: 1. Troponin elevation. 2. Chronic renal failure. 3. Abnormal EKG. 4. Hypertension. PLAN: Patient's clinical presentation is not cardiac in origin. Elevated troponin is related to chronic renal failure. Many of her symptoms may be related to the underlying renal failure. Thank you for allowing us to participate in the care of this pleasant lady. MARIAM / PRISCAN: [id number] /
--- NOTE | 2018-12-18 11:17 | P.NPCON ---
History of Present Illness - Reason for Consult acute renal failure, chronic renal failure - History of Present Illness Reason for consultation: Acute kidney injury on chronic kidney disease History of present illness: Patient is a 63-year-old female seen in renal consultation for acute kidney injury on chronic kidney disease. Patient is chronically disease stage IV secondary to diabetic kidney disease with baseline creatinine near 2.5. Patient presented to the hospital due to not feeling well overall. She complains of dyspnea as well as a nonproductive cough. She denies fever or chills. Patient did go to her PCPs office but it was closed and was subsequently advised to go to the hospital for further care. She is currently being treated with IV steroids for COPD exacerbation. No evidence of fluid overload on chest x-ray. No edema. She has been voiding. No hematuria or dysuria. Denies use of nonsteroidals. Ultrasound from earlier this month was 9. She does have history of systolic CHF due to fraction of 45-50%. Vital signs are stable. General: The patient appeared well nourished and normally developed. HEENT: Head exam is unremarkable. Neck is without jugular venous distension. LUNGS: Lungs are clear to auscultation and percussion. Breath sounds decreased. HEART: Rate and Rhythm are regular. First and second heart sounds normal. No murmurs, rubs or gallops. ABDOMEN: Abdominal exam reveals normal bowel sounds. Non-tender and non- distended. No evidence of peritonitis. EXTREMITITES: No clubbing, cyanosis, or edema. Past Medical History Past Medical History: COPD, Diabetes Mellitus, Hyperlipidemia, Hypertension, Seizure Disorder History of Any Multi-Drug Resistant Organisms: None Reported Past Surgical History: Hysterectomy Additional Past Surgical History / Comment(s): ESWL Past Anesthesia/Blood Transfusion Reactions: No Reported Reaction Past Psychological History: Anxiety, Bipolar, Depression Additional Psychological History / Comment(s): mother recently Smoking Status: Former smoker Past Alcohol Use History: None Reported Additional Past Alcohol Use History / Comment(s): pt. states she was a 2 pack a day smoker for many years and quit in 2016 Past Drug Use History: Marijuana Additional Drug Use History / Comment(s): pt. states she occassionally smokes marijuana - Past Family History Mother Family Medical History: Diabetes Mellitus, Hypertension Father Family Medical History: Hypertension Medications and Allergies Home Medications Medication Instructions Recorded Confirmed Type Phenytoin Sodium Extended 100 mg PO TID 11/29/15 12/17/18 History [Dilantin] Sertraline [Zoloft] 200 mg PO DAILY 11/29/15 12/17/18 History Folic Acid 1 mg PO DAILY 07/22/17 12/17/18 History QUEtiapine FUMARATE 150 mg PO HS@199907/22/17 12/17/18 History Gemfibrozil [Lopid] 1,200 mg PO HS 09/05/17 12/17/18 History Montelukast [Singulair] 10 mg PO HS #30 tab 12/26/17 12/17/18 Rx Sodium Bicarbonate Tab 1,300 mg PO BID #60 tab 02/23/18 12/17/18 Rx Calcitriol 0.5 mcg PO MOWEFR 07/20/18 12/17/18 History Omeprazole [PriLOSEC] 20 mg PO DAILY 07/20/18 12/17/18 History Primidone [Mysoline] 50 mg PO BID 07/20/18 12/17/18 History Isosorbide Mononitrate ER [Imdur] 60 mg PO DAILY #30 tab.er.24h 07/24/18 12/17/18 Rx Ipratropium-Albuterol Nebulize 3 ml INHALATION RT-QID PRN 11/27/18 12/17/18 History [Duoneb 0.5 mg-3 mg/3 ml Soln] HYDROcodone/APAP 5-325MG [[place] 1 tab PO Q6HR PRN 11/28/18 12/17/18 History 5-325] Cefdinir [Omnicef] 300 mg PO BID #16 cap 12/04/18 12/17/18 Rx Ergocalciferol [Vitamin D2 50,000 unit PO Q72H #10 cap 12/04/18 12/17/18 Rx (DRISDOL)] Metoprolol Succinate (ER) [Toprol 100 mg PO DAILY #60 tab.er.24h 12/04/18 12/17/18 Rx XL] Budesonide-Formot 160-4.5 Mcg 2 puff INHALATION RT-BID 12/17/18 12/17/18 History [Symbicort 160-4.5 Mcg Inhaler] Allergies Allergy/AdvReac Type Severity Reaction Status Date / Time Penicillins Allergy Mild Swelling Verified 12/17/18 13:30 Physical Exam Vitals: Vital Signs Temp Pulse Pulse Resp BP BP Pulse Ox 12/18/18 08:00 98.9 F 97 20 150/69 98 12/18/18 04:00 98.1 F 99 16 148/80 95 12/17/18 23:03 102 H 18 12/17/18 23:02 98.3 F 102 H 18 182/82 95 12/17/18 21:08 104 H 18 12/17/18 21:07 98.9 F 104 H 18 168/78 94 L 12/17/18 21:00 110 H 20 147/90 97 12/17/18 19:16 100 24 154/76 97 12/17/18 19:00 100 24 154/76 97 12/17/18 18:47 100 20 12/17/18 18:33 100 20 97 12/17/18 18:30 98 11 L 163/67 99 12/17/18 18:00 94 19 180/97 98 12/17/18 17:30 103 H 17 170/80 12/17/18 17:17 92 14 156/80 98 12/17/18 17:00 92 14 156/80 98 12/17/18 16:30 91 17 123/57 98 12/17/18 16:00 92 14 141/76 98 12/17/18 15:30 92 10 L 148/72 97 12/17/18 15:00 90 20 132/63 98 12/17/18 14:30 88 21 133/77 100 12/17/18 14:23 88 12/17/18 14:10 88 12/17/18 14:09 88 16 133/77 100 12/17/18 14:00 88 22 133/93 100 12/17/18 13:30 87 11 L 115/59 98 12/17/18 13:10 97 12/17/18 12:54 98.3 F 95 20 137/73 97 Intake and Output 12/17/18 12/18/18 12/18/18 22:59 06:59 14:59 Intake Total 388.057 0 Balance 388.057 0 Intake: IV 10 Invasive Line 1 10 Intake, IV Titration 78.057 Amount Heparin Sod,Pork in 0.45% 78.057 NaCl 25,000 unit In 0.45 % NaCl 1 250ml.bag @ 12 UNITS/KG/HR 9.798 mls/hr IV .Q24H BHAVIK Rx#: [id number] Oral 300 0 Other: Voiding Method Toilet Toilet Toilet # Voids 1 0 Results - Lab Results Most recent lab results Calcium 7.0 mg/dL (8.4-10.2) L 12/17/18 13:42 Phosphorus 6.7 mg/dL (2.5-4.5) H 12/17/18 13:42 Magnesium 1.9 mg/dL (1.6-2.3) 12/17/18 13:42 12/17/18 13:42 12/17/18 13:42 Assessment and Plan Plan: Assessment: 1. Acute kidney injury mostly prerenal. Creatinine 4.31 on admission yesterday. No hydronephrosis on recent ultrasound. 2. Chronic kidney disease stage IV secondary to diabetic kidney disease with baseline creatinine near 2.5. 3. Dyspnea secondary to COPD exacerbation. 4. Anemia of chronic kidney disease. Rule out iron deficiency. 5. Metabolic acidosis secondary to acute kidney injury. 6. Diabetes mellitus. 7. Chronic kidney disease mineral bone disease maintained on calcitriol. 8. Systolic CHF with ejection fraction of 45-50%. Compensated. Plan: Start normal saline at 75 mL an hour. Maintain oral sodium bicarbonate. Check iron studies. Add Aranesp. Avoid nephrotoxins. Continue to monitor renal function and urine output. No urgent need for renal replacement therapy at this time. Thank you for the consultation. I will continue to follow the patient with you during her hospital stay.
[2018-12-18] MEDS: HYDROcodone/APAP 5-325MG 1 EACH TAB PO PRN ×2 (11:29→20:56)
[2018-12-18 11:56] LABS: Calcium 7.2 mg/dL (8.4-10.2); Magnesium 1.8 mg/dL (1.6-2.3); Potassium 5.4 mmol/L (3.5-5.1)
[2018-12-18 12:00] LABS: Glucose,Whole Blood 121 mg/dL (75-99)
[2018-12-18] MEDS ORDERED: DARBEPOETIN ALFA 40 MCG/0.4 ML SYRINGE SQ SCH (12:00)
[2018-12-18] MEDS: SODIUM CHLORIDE 0.9% 1,000 ML IV SCH ×2 (13:17→23:00)
[2018-12-18 16:16] LABS: Iron Saturation 34.55 (12.00-45.00)
[2018-12-18 16:43] LABS: Glucose,Whole Blood 117 mg/dL (75-99)
[2018-12-18] MEDS: QUEtiapine 50 MG TAB PO SCH (20:11)
[2018-12-18] MEDS: MONTELUKAST 10 MG TAB PO SCH (20:11)
[2018-12-18] MEDS: HEPARIN SODIUM,PORCINE 5,000 UNIT/ML 1 ML VIAL SQ SCH (20:11)
[2018-12-18] MEDS: FENOFIBRATE 160 MG TAB PO SCH (20:11)
[2018-12-18 20:31] LABS: Glucose,Whole Blood 130 mg/dL (75-99)
[2018-12-19 06:16] LABS: Glucose,Whole Blood 108 mg/dL (75-99)
[2018-12-19] MEDS: INSULIN ASPART (NovoLOG) 100 UNIT/ML VIAL SQ SCH ×4 (06:17→20:59)
[2018-12-19] MEDS: HYDROcodone/APAP 5-325MG 1 EACH TAB PO PRN ×4 (06:18→23:25)
[2018-12-19] MEDS: methylPREDNISolone SOD SUCCI 125 MG/2 ML VIAL IV SCH ×4 (06:18→19:35)
[2018-12-19 06:56] LABS: Basophils % (A) 0 %; Eosinophils % (A) 1 %; HCT 27.3 % (34.0-46.0); HGB 7.9 gm/dL (11.4-16.0); Hypochromasia Marked; Lymphocytes # (A) 0.6 k/uL (1.0-4.8); Lymphocytes % (A) 24 %; MCH 29.8 pg (25.0-35.0); MCHC 29.1 g/dL (31.0-37.0); MCV 102.4 fL (80.0-100.0); Macrocytosis Slight; Mean Platelet Volume 7.4; Monocytes # (A) 0.1 k/uL (0-1.0); Monocytes % (A) 5 %; Neutrophils # (A) 1.7 k/uL (1.3-7.7); Neutrophils % (A) 68 %; Platelet Count 230 k/uL (150-450); RBC 2.66 m/uL (3.80-5.40); RDW 15.7 % (11.5-15.5); WBC 2.5 k/uL (3.8-10.6)
[2018-12-19] MEDS: IPRATROPIUM-ALBUTEROL 3 ML NEB INHALATION SCH ×4 (07:25→20:14)
[2018-12-19] MEDS: SYMBICORT 160-4.5 MCG INHALER INHALATION SCH ×2 (07:27→20:14)
[2018-12-19 07:50] LABS: Magnesium 1.8 mg/dL (1.6-2.3); Potassium 5.8 mmol/L (3.5-5.1)
[2018-12-19] MEDS ORDERED: DEXTROSE 50% SYRINGE 50 ML IVP STA (08:53)
[2018-12-19] MEDS ORDERED: INSULIN ASPART (NovoLOG) 100 UNIT/ML VIAL SQ ONE (08:54)
[2018-12-19] MEDS ORDERED: SODIUM BICARB 8.4% 50 ML SYR (1 MEQ/ML) IV STA (08:54)
[2018-12-19] MEDS ORDERED: DEXTROSE 10 % IN WATER 250 ML IV ONE (08:58)
--- NOTE | 2018-12-19 09:30 | CT ---
EXAMINATION TYPE: CT abdomen pelvis wo con DATE OF EXAM: 12/19/2018 COMPARISON: 02/20/2018 HISTORY: Pain Examination of the solid and hollow viscera is limited given the lack of contrast. FINDINGS: LUNG BASES: No evidence for nodule. No evidence for infiltrate. Basilar emphysematous changes. LIVER/GB: The gallbladder is unremarkable. No space-occupying hepatic lesion. PANCREAS: No pancreatic mass identified. No inflammatory process seen. SPLEEN: No evidence for splenomegaly. No intrasplenic lesions seen. ADRENALS: No adrenal nodules identified. No evidence for thickening. KIDNEYS: Stable left-sided renal cyst is exophytic at the lower pole. Perinephric stranding persists and is chronic in nature. Nonobstructing calculus lower pole right kidney measures 9 mm unchanged fro m prior study. No additional calculi seen. No hydronephrosis. Urinary bladder distention noted. BOWEL: Appendix has a normal appearance. No evidence of bowel obstruction. No inflammatory process. Lymph nodes: No evidence for adenopathy greater than 1 cm. Abdominal aorta: Atheromatous changes seen. No evidence for aneurysm. Genital organs: No significant abnormality. Other: No significant abnormality. IMPRESSION: 1 nonobstructing nephrolithiasis right kidney. 2. Distention of the urinary bladder. 3. No evidence for free air or abscess or obstructive change.
[2018-12-19] MEDS ORDERED: INSULIN REGULAR 100 UNIT/ML VIAL IV ONE (09:37)
--- NOTE | 2018-12-19 09:45 | P.PN ---
Subjective Patient is seen in follow-up for acute kidney injury on chronic kidney disease. Patient has chronic kidney disease stage IV secondary to diabetic kidney disease with baseline creatinine near 2.5. Patient presented to the hospital due to not feeling well and generalized weakness. Renal function is better. Creatinine 2.53 today. Patient is complaining of pain in her back. She is concerned about a kidney stone. She has been voiding. Vital signs are stable. General: The patient appeared well nourished and normally developed. HEENT: Head exam is unremarkable. Neck is without jugular venous distension. LUNGS: Lungs are clear to auscultation and percussion. Breath sounds decreased. HEART: Rate and Rhythm are regular. First and second heart sounds normal. No murmurs, rubs or gallops. ABDOMEN: Abdominal exam reveals normal bowel sounds. Non-tender and non- distended. No evidence of peritonitis. EXTREMITITES: No clubbing, cyanosis, or edema. Objective - Vital Signs Vital signs: Vital Signs Temp 98.5 F 12/19/18 03:58 Pulse 92 12/19/18 07:40 Resp 20 12/19/18 08:00 BP 145/72 12/19/18 03:58 Pulse Ox 98 12/19/18 03:58 Intake & Output 12/18/18 12/19/18 12/19/18 18:59 06:59 18:59 Intake Total 200 20 Balance 200 20 Weight 80.8 kg Intake: Oral 200 20 Other: Voiding Method Toilet # Voids 3 2 - Labs CBC & Chem 7: 12/19/18 05:52 12/19/18 05:52 Labs: Abnormal Lab Results - Last 24 Hours (Table) 12/18/18 12/18/18 12/18/18 Range/Units 06:34 11:59 16:42 WBC (3.8-10.6) k/uL RBC (3.80-5.40) m/uL Hgb (11.4-16.0) gm/dL Hct (34.0-46.0) % MCV (80.0-100.0) fL MCHC (31.0-37.0) g/dL RDW (11.5-15.5) % Lymphocytes # (1.0-4.8) k/uL Potassium 5.4 H (3.5-5.1) mmol/L Chloride 118 H (98-107) mmol/L Carbon Dioxide 11 L (22-30) mmol/L BUN 57 H (7-17) mg/dL Creatinine 3.91 H (0.52-1.04) mg/dL Glucose 113 H (74-99) mg/dL POC Glucose (mg/dL) 121 H 117 H (75-99) mg/dL Calcium 7.2 L (8.4-10.2) mg/dL 12/18/18 12/19/18 12/19/18 Range/Units 20:29 05:52 05:52 WBC 2.5 L (3.8-10.6) k/uL RBC 2.66 L (3.80-5.40) m/uL Hgb 7.9 L (11.4-16.0) gm/dL Hct 27.3 L (34.0-46.0) % MCV 102.4 H (80.0-100.0) fL MCHC 29.1 L (31.0-37.0) g/dL RDW 15.7 H (11.5-15.5) % Lymphocytes # 0.6 L (1.0-4.8) k/uL Potassium 5.8 H (3.5-5.1) mmol/L Chloride 120 H (98-107) mmol/L Carbon Dioxide 16 L (22-30) mmol/L BUN 55 H (7-17) mg/dL Creatinine 3.53 H (0.52-1.04) mg/dL Glucose 107 H (74-99) mg/dL POC Glucose (mg/dL) 130 H (75-99) mg/dL Calcium 7.0 L (8.4-10.2) mg/dL 12/19/18 Range/Units 06:10 WBC (3.8-10.6) k/uL RBC (3.80-5.40) m/uL Hgb (11.4-16.0) gm/dL Hct (34.0-46.0) % MCV (80.0-100.0) fL MCHC (31.0-37.0) g/dL RDW (11.5-15.5) % Lymphocytes # (1.0-4.8) k/uL Potassium (3.5-5.1) mmol/L Chloride (98-107) mmol/L Carbon Dioxide (22-30) mmol/L BUN (7-17) mg/dL Creatinine (0.52-1.04) mg/dL Glucose (74-99) mg/dL POC Glucose (mg/dL) 108 H (75-99) mg/dL Calcium (8.4-10.2) mg/dL Assessment and Plan Plan: Assessment: 1. Acute kidney injury mostly prerenal. Creatinine 4.31 on admission and is down to 3.53 today. No hydronephrosis on recent ultrasound. 2. Chronic kidney disease stage IV secondary to diabetic kidney disease with baseline creatinine near 2.5. 3. Dyspnea secondary to COPD exacerbation. 4. Anemia of chronic kidney disease. Maintained on Aranesp. Iron replete. 5. Metabolic acidosis secondary to acute kidney injury. 6. Diabetes mellitus. 7. Chronic kidney disease mineral bone disease maintained on calcitriol. 8. Systolic CHF with ejection fraction of 45-50%. Compensated. 9. Hyperkalemia secondary to acute kidney injury and metabolic acidosis. Plan: I will change IV fluids to sodium bicarbonate drip. Maintain oral sodium bicarbonate. 10 units of IV insulin with an amp of D50 now. 2 A of sodium bicarbonate IV push now. Avoid nephrotoxins. Continue to monitor renal function and urine output. No urgent need for renal replacement therapy at this time. Follow-up abdominal CAT scan results. Repeat potassium level this afternoon.
[2018-12-19] MEDS: FOLIC ACID 1 MG TAB PO SCH (10:35)
[2018-12-19] MEDS: SERTRALINE 100 MG TAB PO SCH (10:35)
[2018-12-19] MEDS: CALCITRIOL 0.25 MCG CAP PO SCH (10:35)
[2018-12-19] MEDS: ISOSORBIDE MONONITRATE ER 60 MG TAB.ER.24H PO SCH (10:35)
[2018-12-19] MEDS: SODIUM BICARBONATE TAB 650 MG TAB PO SCH ×2 (10:36→19:36)
[2018-12-19] MEDS: METOPROLOL SUCCINATE (ER) 100 MG TAB.ER.24H PO SCH (10:36)
[2018-12-19] MEDS: PANTOPRAZOLE 40 MG TABLET PO SCH (10:36)
[2018-12-19] MEDS: PHENYTOIN SODIUM EXTENDED 100 MG CAP PO SCH ×3 (10:36→19:36)
[2018-12-19] MEDS: PRIMIDONE 50 MG TAB PO SCH ×2 (10:36→19:35)
[2018-12-19] MEDS: HEPARIN SODIUM,PORCINE 5,000 UNIT/ML 1 ML VIAL SQ SCH ×2 (10:36→19:36)
--- NOTE | 2018-12-19 11:29 | P.HPIM ---
History of Present Illness H&P Date: 12/18/18 Chief Complaint: shortness of breath, cough, congestion This is 63-year-old female recently hospitalized with history of COPD, CHF, diabetes mellitus, hypertension, hyperlipidemia, seizure disorder, anxiety, bipolar, depression, history of nicotine abuse, occasional marijuana use and multiple other medical issues, presented to the ER with complaints of shortness of breath, mild cough, sinus congestion. Denies fever or chills. Denies fever or chills. Maintaining O2 sats of high 90s on 4 L nasal cannula which patient wears at home .Patient attempted to contact PCPs office but office was closed and patient presented to the ER. Denies chest pain, reports some chest pressure from coughing. Denies lightheadedness dizziness or focal deficits. BUN 55, creatinine 4.31, potassium 5.3, hemoglobin 8.2, WBC 3.7 BNP 6000 , troponin 0.0432 on admission. EKGs reporting normal sinus rhythm with left bundle branch block. Nephrology consulted. IV steroids, nebulized treatments initiated. Review of Systems ROS Statement: Those systems with pertinent positive or pertinent negative responses have been documented in the HPI. ROS Other: All systems not noted in ROS Statement are negative. Past Medical History Past Medical History: COPD, Diabetes Mellitus, Hyperlipidemia, Hypertension, Seizure Disorder History of Any Multi-Drug Resistant Organisms: None Reported Past Surgical History: Hysterectomy Additional Past Surgical History / Comment(s): ESWL Past Anesthesia/Blood Transfusion Reactions: No Reported Reaction Past Psychological History: Anxiety, Bipolar, Depression Additional Psychological History / Comment(s): mother recently Smoking Status: Former smoker Past Alcohol Use History: None Reported Additional Past Alcohol Use History / Comment(s): pt. states she was a 2 pack a day smoker for many years and quit in 2016 Past Drug Use History: Marijuana Additional Drug Use History / Comment(s): pt. states she occassionally smokes marijuana - Past Family History Mother Family Medical History: Diabetes Mellitus, Hypertension Father Family Medical History: Hypertension Medications and Allergies Home Medications Medication Instructions Recorded Confirmed Type Phenytoin Sodium Extended 100 mg PO TID 11/29/15 12/17/18 History [Dilantin] Sertraline [Zoloft] 200 mg PO DAILY 11/29/15 12/17/18 History Folic Acid 1 mg PO DAILY 07/22/17 12/17/18 History QUEtiapine FUMARATE 150 mg PO [id number] 12/17/18 History Gemfibrozil [Lopid] 1,200 mg PO HS 09/05/17 12/17/18 History Montelukast [Singulair] 10 mg PO HS #30 tab 12/26/17 12/17/18 Rx Sodium Bicarbonate Tab 1,300 mg PO BID #60 tab 02/23/18 12/17/18 Rx Calcitriol 0.5 mcg PO MOWEFR 07/20/18 12/17/18 History Omeprazole [PriLOSEC] 20 mg PO DAILY 07/20/18 12/17/18 History Primidone [Mysoline] 50 mg PO BID 07/20/18 12/17/18 History Isosorbide Mononitrate ER [Imdur] 60 mg PO DAILY #30 tab.er.24h 07/24/18 12/17/18 Rx Ipratropium-Albuterol Nebulize 3 ml INHALATION RT-QID PRN 11/27/18 12/17/18 History [Duoneb 0.5 mg-3 mg/3 ml Soln] HYDROcodone/APAP 5-325MG [[place] 1 tab PO Q6HR PRN 11/28/18 12/17/18 History 5-325] Cefdinir [Omnicef] 300 mg PO BID #16 cap 12/04/18 12/17/18 Rx Ergocalciferol [Vitamin D2 50,000 unit PO Q72H #10 cap 12/04/18 12/17/18 Rx (DRISDOL)] Metoprolol Succinate (ER) [Toprol 100 mg PO DAILY #60 tab.er.24h 12/04/18 12/17/18 Rx XL] Budesonide-Formot 160-4.5 Mcg 2 puff INHALATION RT-BID 12/17/18 12/17/18 History [Symbicort 160-4.5 Mcg Inhaler] Allergies Allergy/AdvReac Type Severity Reaction Status Date / Time Penicillins Allergy Mild Swelling Verified 12/17/18 13:30 Physical Exam Vitals: Vital Signs Temp Pulse Pulse Resp BP BP Pulse Ox 12/18/18 16:46 93 12/18/18 16:32 90 12/18/18 16:00 98.8 F 87 20 150/86 97 12/18/18 12:00 98.8 F 100 20 150/74 96 12/18/18 08:00 98.9 F 97 20 150/69 98 12/18/18 04:00 98.1 F 99 16 148/80 95 12/17/18 23:03 102 H 18 12/17/18 23:02 98.3 F 102 H 18 182/82 95 12/17/18 21:08 104 H 18 12/17/18 21:07 98.9 F 104 H 18 168/78 94 L 12/17/18 21:00 110 H 20 147/90 97 12/17/18 19:16 100 24 154/76 97 12/17/18 19:00 100 24 154/76 97 12/17/18 18:47 100 20 Intake and Output 12/18/18 12/18/18 12/18/18 06:59 14:59 22:59 Intake Total 388.057 80 120 Balance 388.057 80 120 Intake: IV 10 Invasive Line 1 10 Intake, IV Titration 78.057 Amount Heparin Sod,Pork in 0.45% 78.057 NaCl 25,000 unit In 0.45 % NaCl 1 250ml.bag @ 12 UNITS/KG/HR 9.798 mls/hr IV .Q24H BHAVIK Rx#: [id number] Oral 300 80 120 Other: Voiding Method Toilet Toilet Toilet # Voids 1 3 VITAL SIGNS: As above GENERAL: Sitting up at side of bed, no acute distress HEENT: Conjunctivae normal. eyes normal. Oral mucosa moist NECK: No JVD. No thyroid enlargement. No LNs CARDIOVASCULAR: S1, S2 regular.. No murmur RESPIRATION: Breath sounds diminished in the bases. No rhonchi or crackles. No wheezing, No bronchial breathing. ABDOMEN: Soft, nontender . No guarding. no masses palpable. No ascites, No hepatosplenomegaly.Bowel sounds heard. LEGS: No edema. no swelling PSYCHIATRY: Alert and oriented X3, mood and affect normal. NERVOUS SYSTEM: Cranial N 2-12 grossly normal. Moves all 4 limbs. Diffuse weakness No focal deficits. Strength and sensation grossly intact.. Skin: no lesions, no rash Lymphatic system. No LN neck axilla or groin Results CBC & Chem 7: 12/19/18 05:52 07/26/19 05:52 Labs: Abnormal Lab Results - Last 24 Hours (Table) 12/17/18 12/17/18 12/17/18 Range/Units 21:13 21:25 23:10 APTT 34.1 H (22.0-30.0) sec Potassium (3.5-5.1) mmol/L Chloride (98-107) mmol/L Carbon Dioxide (22-30) mmol/L BUN (7-17) mg/dL Creatinine (0.52-1.04) mg/dL Glucose (74-99) mg/dL POC Glucose (mg/dL) 141 H (75-99) mg/dL Calcium (8.4-10.2) mg/dL Troponin I 0.043 H* (0.000-0.034) ng/mL 12/18/18 12/18/18 12/18/18 Range/Units 06:07 06:34 06:34 APTT 37.6 H (22.0-30.0) sec Potassium 5.4 H (3.5-5.1) mmol/L Chloride 118 H (98-107) mmol/L Carbon Dioxide 11 L (22-30) mmol/L BUN 57 H (7-17) mg/dL Creatinine 3.91 H (0.52-1.04) mg/dL Glucose 113 H (74-99) mg/dL POC Glucose (mg/dL) 115 H (75-99) mg/dL Calcium 7.2 L (8.4-10.2) mg/dL Troponin I (0.000-0.034) ng/mL 12/18/18 12/18/18 Range/Units 11:59 16:42 APTT (22.0-30.0) sec Potassium (3.5-5.1) mmol/L Chloride (98-107) mmol/L Carbon Dioxide (22-30) mmol/L BUN (7-17) mg/dL Creatinine (0.52-1.04) mg/dL Glucose (74-99) mg/dL POC Glucose (mg/dL) 121 H 117 H (75-99) mg/dL Calcium (8.4-10.2) mg/dL Troponin I (0.000-0.034) ng/mL Thrombosis Risk Factor Assmnt - Choose All That Apply Any of the Below Risk Factors Present?: Yes Each Factor Represents 1 point: Abnormal pulmonary function (COPD), Obesity (BMI >25) Other Risk Factors: Yes Each Risk Factor Represents 2 Points: Age 61-74 years Thrombosis Risk Factor Assessment Total Risk Factor Score: 4 Thrombosis Risk Factor Assessment Level: Moderate Risk Assessment and Plan Assessment: -Acute on chronic renal failure stage IV, prerenal. No hydronephrosis Baseline creatinine 2.5 -Hyperkalemia secondary to the above -Acute on chronic anemia, baseline 10 -Chronic respiratory failure, wears 4 L nasal cannula O2 at home. -Acute COPD exac. -Diabetes mellitus -Hyperlipidemia -Hypertension -Seizure disorder -Anxiety, depression -Bipolar -History of nicotine abuse -Occasional marijuana use -Chronic systolic CHF Plan: Continue current medication regime ,monitoring and symptomatic treatment. Nephrology consulted. Gentle IV fluid hydration, nebulized bronchodilators, sodium bicarb. Avoid nephrotoxic agents Home meds have been reviewed and resumed. GI and DVT prophylaxis in place. The impression and plan of care has been dictated as directed. : I performed a history and examination of this patient, discussed the same with the dictator. I agree with the dictator's note ,documented as a scribe. Any additional findings or plans will be noted. Time taken: 35 minutes
[2018-12-19 11:40] LABS: Glucose,Whole Blood 115 mg/dL (75-99)
--- NOTE | 2018-12-19 12:27 | PN ---
PROGRESS NOTE Brie is admitted to hospital primarily with renal failure, not feeling well, fatigued, tired, and bilateral leg weakness. We were consulted because of mildly elevated troponin, which I believe is related to the renal failure. This morning she is feeling better. States that she has more strength in her legs. PHYSICAL EXAMINATION: On exam, comfortable at rest. Vital signs are stable. Chest exam reveals good air entry bilaterally. Heart exam reveals first and second heart sounds. No gallop. Examination of the extremities did not reveal any edema. LABS: Labs show a hemoglobin of 7.9, platelet count is 230. BUN is 55, creatinine is 3.5. ASSESSMENT: Elevated troponin secondary to renal failure. No further cardiac workup at this time. EKG shows sinus rhythm with left bundle branch block. MMODL / IJN: [id number] /
[2018-12-19] MEDS: DEXTROSE 5% IN WATER 1,000 ML with SODIUM BICARB (1 MEQ/ML) 150 ML IV SCH ×2 (13:07→20:59)
[2018-12-19 16:34] LABS: Glucose,Whole Blood 141 mg/dL (75-99)
--- NOTE | 2018-12-19 17:30 | P.PN ---
Subjective Progress Note Date: 12/19/18 This is 63-year-old female recently hospitalized with history of COPD, CHF, diabetes mellitus, hypertension, hyperlipidemia, seizure disorder, anxiety, bipolar, depression, history of nicotine abuse, occasional marijuana use and multiple other medical issues, presented to the ER with complaints of shortness of breath, mild cough, sinus congestion. Denies fever or chills. Denies fever or chills. Maintaining O2 sats of high 90s on 4 L nasal cannula which patient wears at home .Patient attempted to contact PCPs office but office was closed and patient presented to the ER. Denies chest pain, reports some chest pressure from coughing. Denies lightheadedness dizziness or focal deficits. BUN 55, cr eatinine 4.31, potassium 5.3, hemoglobin 8.2, WBC 3.7 BNP 6000 , troponin 0.0432 on admission. EKGs reporting normal sinus rhythm with left bundle branch block. Nephrology consulted. IV steroids, nebulized treatments initiated. 12/19/2018 complains of lower back pain/left lateral spasms .CT reporting nonobstructive right renal calculus 9 mm, unchanged from prior study, small left renal cyst, bladder distended. Patient is voiding. Potassium 5.8, receiving bicarbonate, D50, insulin as per nephrology. Maintained on IV fluid hydration, renal function improving, Creatinine 3.53. Hemoglobin 7.9. CO2 16, Bicarb drip initiated as per nephrology. Sinus tachycardia. Objective - Vital Signs Vital signs: Vital Signs Temp 98.2 F 12/19/18 08:00 Pulse 98 12/19/18 08:00 Resp 20 12/19/18 08:00 BP 151/86 12/19/18 08:00 Pulse Ox 99 12/19/18 08:00 Intake & Output 12/18/18 12/19/18 12/19/18 18:59 06:59 18:59 Intake Total 200 20 Balance 200 20 Weight 80.8 kg Intake: Oral 200 20 Other: Voiding Method Toilet # Voids 3 2 - Exam GENERAL: Sitting up at side of bed, no acute distress HEENT: Conjunctivae normal. eyes normal. Oral mucosa moist NECK: No JVD. No thyroid enlargement. No LNs CARDIOVASCULAR: S1, S2 regular.. No murmur RESPIRATION: Breath sounds diminished in the bases. No rhonchi or crackles. ABDOMEN: Soft, nondistended nontender . No guarding. no masses palpable. Bowel sounds heard. LEGS: No edema. no swelling PSYCHIATRY: Alert and oriented X3, mood and affect normal. NERVOUS SYSTEM: Cranial N 2-12 grossly normal. Moves all 4 limbs. Diffuse weakness No focal deficits. Strength and sensation grossly intact.. Skin: no lesions, no rash Lymphatic system. No LN neck axilla or groin - Labs CBC & Chem 7: 12/19/18 05:52 12/19/18 14:50 Labs: Abnormal Lab Results - Last 24 Hours (Table) 12/18/18 12/18/18 12/18/18 Range/Units 06:34 11:59 16:42 WBC (3.8-10.6) k/uL RBC (3.80-5.40) m/uL Hgb (11.4-16.0) gm/dL Hct (34.0-46.0) % MCV (80.0-100.0) fL MCHC (31.0-37.0) g/dL RDW (11.5-15.5) % Lymphocytes # (1.0-4.8) k/uL Potassium 5.4 H (3.5-5.1) mmol/L Chloride 118 H (98-107) mmol/L Carbon Dioxide 11 L (22-30) mmol/L BUN 57 H (7-17) mg/dL Creatinine 3.91 H (0.52-1.04) mg/dL Glucose 113 H (74-99) mg/dL POC Glucose (mg/dL) 121 H 117 H (75-99) mg/dL Calcium 7.2 L (8.4-10.2) mg/dL 12/18/18 12/19/18 12/19/18 Range/Units 20:29 05:52 05:52 WBC 2.5 L (3.8-10.6) k/uL RBC 2.66 L (3.80-5.40) m/uL Hgb 7.9 L (11.4-16.0) gm/dL Hct 27.3 L (34.0-46.0) % MCV 102.4 H (80.0-100.0) fL MCHC 29.1 L (31.0-37.0) g/dL RDW 15.7 H (11.5-15.5) % Lymphocytes # 0.6 L (1.0-4.8) k/uL Potassium 5.8 H (3.5-5.1) mmol/L Chloride 120 H (98-107) mmol/L Carbon Dioxide 16 L (22-30) mmol/L BUN 55 H (7-17) mg/dL Creatinine 3.53 H (0.52-1.04) mg/dL Glucose 107 H (74-99) mg/dL POC Glucose (mg/dL) 130 H (75-99) mg/dL Calcium 7.0 L (8.4-10.2) mg/dL 12/19/18 Range/Units 06:10 WBC (3.8-10.6) k/uL RBC (3.80-5.40) m/uL Hgb (11.4-16.0) gm/dL Hct (34.0-46.0) % MCV (80.0-100.0) fL MCHC (31.0-37.0) g/dL RDW (11.5-15.5) % Lymphocytes # (1.0-4.8) k/uL Potassium (3.5-5.1) mmol/L Chloride (98-107) mmol/L Carbon Dioxide (22-30) mmol/L BUN (7-17) mg/dL Creatinine (0.52-1.04) mg/dL Glucose (74-99) mg/dL POC Glucose (mg/dL) 108 H (75-99) mg/dL Calcium (8.4-10.2) mg/dL Assessment and Plan Assessment: -Acute on chronic renal failure stage IV, prerenal. No hydronephrosis Baseline creatinine 2.5 -Hyperkalemia secondary to the above -Acute on chronic anemia, baseline 10 -Chronic respiratory failure, wears 4 L nasal cannula O2 at home. -Acute COPD exac. -Diabetes mellitus -Hyperlipidemia -Hypertension -Seizure disorder -Anxiety, depression -Bipolar -History of nicotine abuse -Occasional marijuana use -Chronic systolic CHF -Nonobstructive right renal calculi per CT Plan: Continue current medication regime ,monitoring and symptomatic treatment. Hyperkalemic , receiving bicarbonate, D50, insulin . Repeat potassium level this afternoon .Bicarb drip in addition to oral, nebulized bronchodilators. Bladder scan now and post void residuals ordered.increase ambulation as tolerated.Avoid nephrotoxic agents. Close monitoring of renal function and electrolytes with repeat labs ordered for a.m. The impression and plan of care has been dictated as directed. : I performed a history and examination of this patient, discussed the same with the dictator. I agree with the dictator's note ,documented as a scribe. Any additional findings or plans will be noted. Time taken: 35 minutes
[2018-12-19] MEDS: MONTELUKAST 10 MG TAB PO SCH (19:35)
[2018-12-19] MEDS: QUEtiapine 50 MG TAB PO SCH (19:35)
[2018-12-19] MEDS: FENOFIBRATE 160 MG TAB PO SCH (19:36)
[2018-12-19 20:58] LABS: Glucose,Whole Blood 178 mg/dL (75-99)
[2018-12-20 06:08] LABS: Glucose,Whole Blood 106 mg/dL (75-99)
[2018-12-20] MEDS: INSULIN ASPART (NovoLOG) 100 UNIT/ML VIAL SQ SCH ×4 (06:09→20:50)
[2018-12-20] MEDS: methylPREDNISolone SOD SUCCI 125 MG/2 ML VIAL IV SCH ×3 (06:10→17:12)
[2018-12-20 07:47] LABS: Calcium 7.3 mg/dL (8.4-10.2); Potassium 4.9 mmol/L (3.5-5.1)
[2018-12-20] MEDS: FOLIC ACID 1 MG TAB PO SCH (07:57)
[2018-12-20] MEDS: SERTRALINE 100 MG TAB PO SCH (07:57)
[2018-12-20] MEDS: METOPROLOL SUCCINATE (ER) 100 MG TAB.ER.24H PO SCH (07:58)
[2018-12-20] MEDS: ISOSORBIDE MONONITRATE ER 60 MG TAB.ER.24H PO SCH (07:58)
[2018-12-20] MEDS: PRIMIDONE 50 MG TAB PO SCH ×2 (07:58→20:50)
[2018-12-20] MEDS: PANTOPRAZOLE 40 MG TABLET PO SCH (07:58)
[2018-12-20] MEDS: HEPARIN SODIUM,PORCINE 5,000 UNIT/ML 1 ML VIAL SQ SCH ×2 (07:59→20:50)
[2018-12-20] MEDS: HYDROcodone/APAP 5-325MG 1 EACH TAB PO PRN ×3 (07:59→20:50)
[2018-12-20] MEDS: SODIUM BICARBONATE TAB 650 MG TAB PO SCH (07:59)
[2018-12-20] MEDS: IPRATROPIUM-ALBUTEROL 3 ML NEB INHALATION SCH ×4 (09:00→21:27)
[2018-12-20] MEDS: SYMBICORT 160-4.5 MCG INHALER INHALATION SCH ×2 (09:00→21:29)
[2018-12-20] MEDS: DEXTROSE 5% IN WATER 1,000 ML with SODIUM BICARB (1 MEQ/ML) 150 ML IV SCH (09:10)
[2018-12-20] MEDS: PHENYTOIN SODIUM EXTENDED 100 MG CAP PO SCH ×3 (09:10→22:54)
--- NOTE | 2018-12-20 10:14 | P.PN ---
Subjective Progress Note Date: 12/20/18 Seen and examined for the follow-up of acute kidney injury. Still complaining of left-sided rib pain. No nausea vomiting diarrhea. Admitting making good amount of urine. Objective - Vital Signs Vital signs: Vital Signs Temp 99.1 F 12/20/18 07:54 Pulse 90 12/20/18 09:14 Resp 15 12/20/18 08:00 BP 162/83 12/20/18 07:54 Pulse Ox 97 12/20/18 09:04 Intake & Output 12/19/18 12/20/18 12/20/18 18:59 06:59 18:59 Intake Total 20 Output Total 500 500 Balance -480 -500 Intake: Oral 20 Output: Urine 500 500 Other: Voiding Method Toilet # Voids 1 1 - Exam No acute distress S1-S2 heard Lungs clear No edema - Labs CBC & Chem 7: 12/19/18 05:52 12/20/18 07:04 Labs: Abnormal Lab Results - Last 24 Hours (Table) 12/19/18 12/19/18 12/19/18 Range/Units 11:39 16:32 20:57 Chloride (98-107) mmol/L BUN (7-17) mg/dL Creatinine (0.52-1.04) mg/dL POC Glucose (mg/dL) 115 H 141 H 178 H (75-99) mg/dL Calcium (8.4-10.2) mg/dL 12/20/18 12/20/18 Range/Units 06:07 07:04 Chloride 113 H (98-107) mmol/L BUN 53 H (7-17) mg/dL Creatinine 2.84 H (0.52-1.04) mg/dL POC Glucose (mg/dL) 106 H (75-99) mg/dL Calcium 7.3 L (8.4-10.2) mg/dL Assessment and Plan Assessment: #1 nonoliguric acute kidney injury secondary to prerenal process. Creatinine improving close to baseline. #2 CK D4 secondary to diabetic kidney disease with a baseline creatinine of 2.5- 2.8 MG per DL. #3 Diastolic CHF with EF of 45-50%. #4 Anemia with chronic kidney disease #5 metabolic acidosis resolved #6 nonobstructing renal calculus. Plan: #1 creatinine close to baseline. #2 stop bicarb drip and oral bicarbonate. #3 avoid nephrotoxic agents and hypotensive episodes.
[2018-12-20 12:16] LABS: Glucose,Whole Blood 105 mg/dL (75-99)
--- NOTE | 2018-12-20 12:31 | P.PN ---
Subjective Progress Note Date: 12/20/18 This is a 63-year-old female, presented to the hospital with symptoms of tiredness and fatigue, associated cough and sinus congestion. Troponin was done in the emergency room which came back to be abnormal and for this reason a cardiology consultation was requested. Patient was seen in consultation by Dr. Lim who felt that the troponin abnormality was secondary to renal failure. Patient had an echocardiogram with Doppler study performed this recent admission which showed an ejection fraction of 45-50%. Patient has known history of hypertension, COPD, hyperlipidemia, and chronic renal failure. She was seen and examined today, complaining of some pain in her left abdominal region, denies any chest pain and breathing has been stable. Objective - Vital Signs Vital signs: Vital Signs Temp 99.1 F 12/20/18 07:54 Pulse 100 12/20/18 12:12 Resp 15 12/20/18 08:00 BP 162/83 12/20/18 07:54 Pulse Ox 97 12/20/18 09:04 Intake & Output 12/19/18 12/20/18 12/20/18 18:59 06:59 18:59 Intake Total 20 Output Total 500 500 Balance -480 -500 Intake: Oral 20 Output: Urine 500 500 Other: Voiding Method Toilet # Voids 1 1 - Exam PHYSICAL EXAMINATION: GENERAL: 63-year-old female in no acute distress at the time of my examination HEENT: Head is atraumatic, normocephalic. Pupils equal, round. Sclera anicte barrie. Conjunctiva are clear. Mucous membranes of the mouth are moist. Neck is supple. There is no elevated jugular venous pressure.No Carotid bruit is heard. HEART EXAMINATION: Heart S1 S2 1 systolic murmur is heard CHEST EXAMINATION: Lungs are clear to auscultation and precussion. No chest wall tenderness is noted on palpation or with deep breathing. ABDOMEN: Soft, generalized tenderness. Bowel sounds are heard. No organomegaly noted. EXTREMITIES: 2+ peripheral pulses with no evidence of peripheral edema and no calf tenderness noted. NEUROLOGIC patient is awake, alert and oriented 3 . . - Labs CBC & Chem 7: 12/19/18 05:52 12/20/18 07:04 Labs: Abnormal Lab Results - Last 24 Hours (Table) 12/19/18 12/19/18 12/20/18 Range/Units 16:32 20:57 06:07 Chloride (98-107) mmol/L BUN (7-17) mg/dL Creatinine (0.52-1.04) mg/dL POC Glucose (mg/dL) 141 H 178 H 106 H (75-99) mg/dL Calcium (8.4-10.2) mg/dL 12/20/18 12/20/18 Range/Units 07:04 11:36 Chloride 113 H (98-107) mmol/L BUN 53 H (7-17) mg/dL Creatinine 2.84 H (0.52-1.04) mg/dL POC Glucose (mg/dL) 105 H (75-99) mg/dL Calcium 7.3 L (8.4-10.2) mg/dL Assessment and Plan Plan: Assessment and plan #1 chronic renal failure #2 Non-IA related troponin elevation secondary to renal failure. #3 hypertension #4 hyperlipidemia #5 COPD Plan From cardiology's perspective, we'll recommend to continue this patient on her current medications. We will follow her along with you now on an as-needed basis only, please don't hesitate to call with any questions. DNP note has been reviewed, I agree with a documented findings and plan of care. Patient was seen and examined.
--- NOTE | 2018-12-20 12:48 | P.PN ---
Subjective Progress Note Date: 12/20/18 Principal diagnosis: Non-oliguric acute kidney injury Patient awake alert vitals are stable patient afebrile is currently making urine, patient's creatinine is back to baseline. Patient claims of mild left- sided tenderness Objective - Vital Signs Vital signs: Vital Signs Temp 99.1 F 12/20/18 07:54 Pulse 100 12/20/18 12:12 Resp 15 12/20/18 08:00 BP 162/83 12/20/18 07:54 Pulse Ox 97 12/20/18 09:04 Intake & Output 12/19/18 12/20/18 12/20/18 18:59 06:59 18:59 Intake Total 20 Output Total 500 500 Balance -480 -500 Intake: Oral 20 Output: Urine 500 500 Other: Voiding Method Toilet # Voids 1 1 - Exam General: [Patient awake, alert and oriented times 3. Patient in no acute distress.] HEENT: [PERRL. EOMI. No pharyngeal erythema or exudate.] Neck: [No adenopathy.] Cardiac: [Heart regular in rate and rhythm. No S3. No S4. No clicks, rubs. No murmur.] Lungs: [Clear to auscultation bilaterally.] Abdomen: [No mass. No organomegaly. Bowel sounds presnt and normoactive in all 4 quadrants.] Extremes: [No edema no cyanosis no claudication normal pulses] : [] Musculoskeletal: Extreme kyphotic curve Skin: [No rash.] Neurologic: [No lateralizing deficits. CN II - XII grossly intact.] Lymphatic: [No adenopathy.] - Labs CBC & Chem 7: 12/19/18 05:52 12/20/18 07:04 Labs: Abnormal Lab Results - Last 24 Hours (Table) 12/19/18 12/19/18 12/20/18 Range/Units 16:32 20:57 06:07 Chloride (98-107) mmol/L BUN (7-17) mg/dL Creatinine (0.52-1.04) mg/dL POC Glucose (mg/dL) 141 H 178 H 106 H (75-99) mg/dL Calcium (8.4-10.2) mg/dL 12/20/18 12/20/18 Range/Units 07:04 11:36 Chloride 113 H (98-107) mmol/L BUN 53 H (7-17) mg/dL Creatinine 2.84 H (0.52-1.04) mg/dL POC Glucose (mg/dL) 105 H (75-99) mg/dL Calcium 7.3 L (8.4-10.2) mg/dL Assessment and Plan (1) Acute exacerbation of chronic obstructive airways disease Current Visit: Yes Status: Acute Code(s): J44.1 - CHRONIC OBSTRUCTIVE PULMONARY DISEASE W (ACUTE) EXACERBATION SNOMED Code(s): 948928786 (2) Acute on chronic renal failure Current Visit: Yes Status: Acute Code(s): N17.9 - ACUTE KIDNEY FAILURE, UNSPECIFIED; N18.9 - CHRONIC KIDNEY DISEASE, UNSPECIFIED SNOMED Code(s): 531729708 (3) Anemia Current Visit: Yes Status: Acute Code(s): D64.9 - ANEMIA, UNSPECIFIED SNOMED Code(s): 745487891 (4) Acute kidney failure Current Visit: No Status: Acute Code(s): N17.9 - ACUTE KIDNEY FAILURE, UNSPECIFIED SNOMED Code(s): 39631383 (5) Acute renal failure Current Visit: No Status: Acute Code(s): N17.9 - ACUTE KIDNEY FAILURE, UNSPECIFIED SNOMED Code(s): 26656143 Plan: Acute exacerbation chronic COPD resolving Acute renal injury back to baseline Chronic neck pain/chronic back pain currently on [place] etc. anticipate discharge home in the next 24 hours
[2018-12-20 17:10] LABS: Glucose,Whole Blood 131 mg/dL (75-99)
[2018-12-20 20:48] LABS: Glucose,Whole Blood 154 mg/dL (75-99)
[2018-12-20] MEDS: FENOFIBRATE 160 MG TAB PO SCH (20:50)
[2018-12-20] MEDS: MONTELUKAST 10 MG TAB PO SCH (20:50)
[2018-12-20] MEDS: QUEtiapine 50 MG TAB PO SCH (22:54)
[2018-12-21] MEDS: methylPREDNISolone SOD SUCCI 125 MG/2 ML VIAL IV SCH ×5 (00:42→23:14)
[2018-12-21] MEDS: HYDROcodone/APAP 5-325MG 1 EACH TAB PO PRN ×4 (03:18→23:33)
[2018-12-21 07:03] LABS: Glucose,Whole Blood 126 mg/dL (75-99)
[2018-12-21] MEDS: INSULIN ASPART (NovoLOG) 100 UNIT/ML VIAL SQ SCH ×4 (07:16→21:15)
[2018-12-21] MEDS: HEPARIN SODIUM,PORCINE 5,000 UNIT/ML 1 ML VIAL SQ SCH ×2 (07:28→21:15)
[2018-12-21] MEDS: PANTOPRAZOLE 40 MG TABLET PO SCH (07:29)
[2018-12-21] MEDS: ISOSORBIDE MONONITRATE ER 60 MG TAB.ER.24H PO SCH (07:29)
[2018-12-21] MEDS: PRIMIDONE 50 MG TAB PO SCH ×2 (07:29→21:15)
[2018-12-21] MEDS: PHENYTOIN SODIUM EXTENDED 100 MG CAP PO SCH ×3 (07:29→21:16)
[2018-12-21] MEDS: SERTRALINE 100 MG TAB PO SCH (07:29)
[2018-12-21] MEDS: METOPROLOL SUCCINATE (ER) 100 MG TAB.ER.24H PO SCH (07:29)
[2018-12-21] MEDS: ERGOCALCIFEROL 50,000 UNIT CAP PO SCH (07:30)
[2018-12-21] MEDS: FOLIC ACID 1 MG TAB PO SCH (07:30)
[2018-12-21] MEDS: IPRATROPIUM-ALBUTEROL 3 ML NEB INHALATION SCH ×4 (08:21→20:55)
[2018-12-21] MEDS: SYMBICORT 160-4.5 MCG INHALER INHALATION SCH ×2 (08:21→20:55)
--- NOTE | 2018-12-21 10:56 | P.PN ---
Subjective Progress Note Date: 12/21/18 Seen and examined for the follow-up of acute kidney injury. No nausea vomiting diarrhea. Sleeping comfortable in the bed. Objective - Vital Signs Vital signs: Vital Signs Temp 97.5 F L 12/21/18 08:09 Pulse 92 12/21/18 08:35 Resp 20 12/21/18 08:09 BP 125/61 12/21/18 08:09 Pulse Ox 99 12/21/18 08:09 Intake & Output 12/20/18 12/21/18 12/21/18 18:59 06:59 18:59 Intake Total 480 Balance 480 Intake: Oral 480 Other: Voiding Method Toilet Toilet # Voids 2 1 1 - Exam No acute distress S1-S2 heard Lungs clear No edema - Labs CBC & Chem 7: 12/19/18 05:52 12/20/18 07:04 Labs: Abnormal Lab Results - Last 24 Hours (Table) 12/20/18 12/20/18 12/20/18 Range/Units 11:36 16:39 20:38 POC Glucose (mg/dL) 105 H 131 H 154 H (75-99) mg/dL 12/21/18 Range/Units 06:51 POC Glucose (mg/dL) 126 H (75-99) mg/dL Assessment and Plan Assessment: #1 nonoliguric acute kidney injury secondary to prerenal process. Creatinine currently at baseline. #2 CK D4 secondary to diabetic kidney disease with a baseline creatinine of 2.5- 2.8 MG per DL. #3 Diastolic CHF with EF of 45-50%. #4 Anemia with chronic kidney disease #5 metabolic acidosis resolved #6 nonobstructing renal calculus. Plan: #1 creatinine stable currently at baseline. #2 avoid nephrotoxic agents and hypotensive episodes. #3 CK D medications
[2018-12-21 11:27] LABS: Glucose,Whole Blood 93 mg/dL (75-99)
--- NOTE | 2018-12-21 13:34 | P.PN ---
Subjective Progress Note Date: 12/21/18 Principal diagnosis: Non-oliguric acute kidney injury Patient awake alert vitals are stable patient afebrile is currently making urine, patient's creatinine is back to baseline. Patient claims of mild left- sided tenderness 12/21/2018 Patient states she is feeling much better however the left flank discomfort is all encompassing at this point patient does not recall complaining about this before however I believe she is had complaints about this off and on for several years And distinctly believe this is a result of diverticular disease, CAT scan this visit of abdomen did not suggest any inflammatory process in the abdomen Will repeat labs in the morning and obtain acute abdominal series with review of abdomen to assess for left flank pain specifically diverticular disease Objective - Vital Signs Vital signs: Vital Signs Temp 97.5 F L 12/21/18 08:09 Pulse 92 12/21/18 08:35 Resp 20 12/21/18 08:09 BP 125/61 12/21/18 08:09 Pulse Ox 99 12/21/18 08:09 Intake & Output 12/20/18 12/21/18 12/21/18 18:59 06:59 18:59 Intake Total 598 Balance 598 Intake: Oral 598 Other: Voiding Method Toilet Toilet # Voids 2 1 1 - Exam General: [Patient awake, alert and oriented times 3. Patient in no acute distress.] HEENT: [PERRL. EOMI. No pharyngeal erythema or exudate.] Neck: [No adenopathy.] Cardiac: [Heart regular in rate and rhythm. No S3. No S4. No clicks, rubs. No murmur.] Lungs: [Clear to auscultation bilaterally.] Significant kyphotic curvature consistent with osteoporosis Abdomen: [No mass. No organomegaly. Bowel sounds presnt and normoactive in all 4 quadrants.] Left flank abdominal pain possible diverticular disease white count is been stable no evidence of inflammatory process and CT Extremes: [No edema no cyanosis no claudication normal pulses] : [] Musculoskeletal: Extreme kyphotic curve Skin: [No rash.] Neurologic: [No lateralizing deficits. CN II - XII grossly intact.] Lymphatic: [No adenopathy.] - Labs CBC & Chem 7: 12/19/18 05:52 12/20/18 07:04 Labs: Abnormal Lab Results - Last 24 Hours (Table) 12/20/18 12/20/18 12/21/18 Range/Units 16:39 20:38 06:51 POC Glucose (mg/dL) 131 H 154 H 126 H (75-99) mg/dL Assessment and Plan (1) Acute exacerbation of chronic obstructive airways disease Current Visit: Yes Status: Acute Code(s): J44.1 - CHRONIC OBSTRUCTIVE PULMONARY DISEASE W (ACUTE) EXACERBATION SNOMED Code(s): 704858399 (2) Acute on chronic renal failure Current Visit: Yes Status: Acute Code(s): N17.9 - ACUTE KIDNEY FAILURE, UNSPECIFIED; N18.9 - CHRONIC KIDNEY DISEASE, UNSPECIFIED SNOMED Code(s): 364504461 (3) Anemia Current Visit: Yes Status: Acute Code(s): D64.9 - ANEMIA, UNSPECIFIED SNOMED Code(s): 215054441 (4) Acute kidney failure Current Visit: No Status: Acute Code(s): N17.9 - ACUTE KIDNEY FAILURE, UNSPECIFIED SNOMED Code(s): 63456207 (5) Acute renal failure Current Visit: No Status: Acute Code(s): N17.9 - ACUTE KIDNEY FAILURE, UNSPECIFIED SNOMED Code(s): 78315091 Plan: Acute exacerbation chronic COPD resolving Acute renal injury back to baseline Chronic neck pain/chronic back pain currently on [place] etc. anticipate discharge home in the next 24 hours We'll get chest and two-view abdomen to assess for left flank discomfort in the morning Time with Patient: Greater than 30
--- NOTE | 2018-12-21 14:08 | XR ---
EXAMINATION TYPE: XR abdomen acute w cxr , 3 VIEWS DATE OF EXAM ORDERED: 12/21/2018 HISTORY: Complains of left flank pain. COMPARISON: None. FINDINGS: The heart is mildly enlarged. There is some scarring or atelectasis at the left lung base. There is apparent elevation of the right hemidiaphragm. There is a lobulated density in the right mi dlung which may represent a pulmonary mass or pleural thickening. Within the abdomen, the abdominal gas pattern is normal. There is no evidence of obstruction or free air. There are phleboliths within the pelvis. IMPRESSION: 1. CARDIOMEGALY. 2. LOBULATED MASS WITHIN THE RIGHT SIDE OF THE THORAX MAY REPRESENT PLEURAL THICKENING OR A PULMONARY MASS. SCAN OF THE CHEST WOULD BE SUGGESTED.
[2018-12-21 14:31] LABS: Anisocytosis Slight; HCT 26.9 % (34.0-46.0); HGB 8.3 gm/dL (11.4-16.0); Hypochromasia Marked; MCH 32.2 pg (25.0-35.0); MCHC 30.9 g/dL (31.0-37.0); MCV 104.3 fL (80.0-100.0); Macrocytosis Moderate; Mean Platelet Volume 7.6; Platelet Count 238 k/uL (150-450); RBC 2.58 m/uL (3.80-5.40); RDW 16.2 % (11.5-15.5); WBC 3.9 k/uL (3.8-10.6)
[2018-12-21] MEDS: guaiFENesin 600 MG TABLET.ER PO SCH (15:41)
[2018-12-21 16:33] LABS: Band Neutrophils % 2 %; Lymphocytes # (M) 1.09 k/uL (1.0-4.8); Monocytes # (M) 0.39 k/uL (0-1.0); Neutrophils % (M) 60 %; Nucleated Red Blood Cells 0 /100 WBC (0-0); Total Cells Counted 100
[2018-12-21 17:00] LABS: Glucose,Whole Blood 134 mg/dL (75-99)
--- NOTE | 2018-12-21 20:23 | CT ---
EXAMINATION TYPE: CT chest wo con DATE OF EXAM: 12/21/2018 COMPARISON: Chest x-ray 12/13/2018, CT 12/19/[address] chest 12/22/2017 HISTORY: SOB CT DLP: 465.1 mGycm. Automated Exposure Control for Dose Reduction was Utilized. TECHNIQUE: CT scan of the thorax is performed without IV contrast. FINDINGS: Lack of contrast could compromise sensitivity. LUNGS: The lungs are remarkable for extensive emphysematous changes. There is pleural thickening tyrone cent to multiple nonunited rib fractures as on prior exam, some probable basilar scarring present. No pleural or pericardial effusion. MEDIASTINUM: Lack of IV contrast is noted to limit evaluation for mediastinal and especially hilar ad enopathy. There are no definitive greater than 1 cm hilar or mediastinal lymph nodes. No cardiomega ly or pericardial effusion is seen. OTHER: Posterior left ninth and 10th ribs show fractures were present on CT of 12/19/2018. Not on CT IMPRESSION: Emphysema. Multiple rib fractures of varying ages. Noncontrast exam.
[2018-12-21 20:54] LABS: Glucose,Whole Blood 180 mg/dL (75-99)
[2018-12-21] MEDS: QUEtiapine 50 MG TAB PO SCH (21:14)
[2018-12-21] MEDS: MONTELUKAST 10 MG TAB PO SCH (21:15)
[2018-12-21] MEDS: FENOFIBRATE 160 MG TAB PO SCH (21:15)
[2018-12-21] MEDS: HYDROmorphone 1 MG/ML 1 ML SYRINGE IVP PRN (21:16)
[2018-12-22] MEDS: methylPREDNISolone SOD SUCCI 125 MG/2 ML VIAL IV SCH ×4 (05:14→23:58)
[2018-12-22] MEDS: HYDROcodone/APAP 5-325MG 1 EACH TAB PO PRN ×4 (05:14→23:57)
[2018-12-22] MEDS: SYMBICORT 160-4.5 MCG INHALER INHALATION SCH ×2 (08:28→19:48)
[2018-12-22] MEDS: IPRATROPIUM-ALBUTEROL 3 ML NEB INHALATION SCH ×4 (08:28→19:48)
[2018-12-22] MEDS: HYDROmorphone 1 MG/ML 1 ML SYRINGE IVP PRN ×3 (09:26→21:31)
[2018-12-22] MEDS: INSULIN ASPART (NovoLOG) 100 UNIT/ML VIAL SQ SCH ×4 (09:27→21:27)
[2018-12-22] MEDS: CALCITRIOL 0.25 MCG CAP PO SCH (09:27)
[2018-12-22] MEDS: guaiFENesin 600 MG TABLET.ER PO SCH ×2 (09:28→21:27)
[2018-12-22] MEDS: HEPARIN SODIUM,PORCINE 5,000 UNIT/ML 1 ML VIAL SQ SCH ×2 (09:28→21:27)
[2018-12-22] MEDS: PANTOPRAZOLE 40 MG TABLET PO SCH (09:29)
[2018-12-22] MEDS: PHENYTOIN SODIUM EXTENDED 100 MG CAP PO SCH ×3 (09:29→21:28)
[2018-12-22] MEDS: PRIMIDONE 50 MG TAB PO SCH ×2 (10:32→21:27)
[2018-12-22] MEDS: FOLIC ACID 1 MG TAB PO SCH (10:33)
[2018-12-22] MEDS: ISOSORBIDE MONONITRATE ER 60 MG TAB.ER.24H PO SCH (10:33)
[2018-12-22] MEDS: METOPROLOL SUCCINATE (ER) 100 MG TAB.ER.24H PO SCH (10:33)
--- NOTE | 2018-12-22 10:53 | P.PN ---
Subjective Patient is seen in follow-up for acute kidney injury on chronic kidney disease. Patient has chronic kidney disease stage IV secondary to diabetic kidney disease with baseline creatinine near 2.5. Patient presented to the hospital due to not feeling well and generalized weakness. Renal function is better. Creatinine 2.84 as of December 20. Admits to good urine output. No vomiting or diarrhea. Vital signs are stable. General: The patient appeared well nourished and normally developed. HEENT: Head exam is unremarkable. Neck is without jugular venous distension. LUNGS: Lungs are clear to auscultation and percussion. Breath sounds decreased. HEART: Rate and Rhythm are regular. First and second heart sounds normal. No murmurs, rubs or gallops. ABDOMEN: Abdominal exam reveals normal bowel sounds. Non-tender and non- distended. No evidence of peritonitis. EXTREMITITES: No clubbing, cyanosis, or edema. Objective - Vital Signs Vital signs: Vital Signs Temp 98.3 F 12/22/18 08:15 Pulse 95 12/22/18 08:15 Resp 18 12/22/18 08:15 BP 169/101 12/22/18 08:15 Pulse Ox 95 12/22/18 08:15 Intake & Output 12/21/18 12/22/18 12/22/18 18:59 06:59 18:59 Intake Total 1078 Balance 1078 Intake: Oral 1078 Other: Voiding Method Toilet Toilet # Voids 1 2 - Labs CBC & Chem 7: 12/21/18 14:05 12/20/18 07:04 Labs: Abnormal Lab Results - Last 24 Hours (Table) 12/21/18 12/21/18 12/21/18 Range/Units 14:05 16:49 20:43 RBC 2.58 L (3.80-5.40) m/uL Hgb 8.3 L (11.4-16.0) gm/dL Hct 26.9 L (34.0-46.0) % MCV 104.3 H (80.0-100.0) fL MCHC 30.9 L (31.0-37.0) g/dL RDW 16.2 H (11.5-15.5) % POC Glucose (mg/dL) 134 H 180 H (75-99) mg/dL Assessment and Plan Plan: Assessment: 1. Acute kidney injury mostly prerenal. Creatinine 4.31 on admission and was down to 2.84 as of December 20. No hydronephrosis on recent ultrasound. 2. Chronic kidney disease stage IV secondary to diabetic kidney disease with baseline creatinine near 2.5. 3. Dyspnea secondary to COPD exacerbation. 4. Anemia of chronic kidney disease. Maintained on Aranesp. Iron replete. 5. Metabolic acidosis secondary to acute kidney injury. Better. 6. Diabetes mellitus. 7. Chronic kidney disease mineral bone disease maintained on calcitriol. 8. Systolic CHF with ejection fraction of 45-50%. Compensated. 9. Hyperkalemia secondary to acute kidney injury and metabolic acidosis. Impr mena. Plan: Avoid nephrotoxins. Continue to monitor renal function and urine output. No urgent need for renal replacement therapy at this time. Remains off IV fluids and diuretics at this time.
[2018-12-22 11:29] LABS: Calcium 7.1 mg/dL (8.4-10.2); Potassium 5.3 mmol/L (3.5-5.1)
[2018-12-22 11:33] LABS: Basophils % (A) 0 %; Eosinophils % (A) 1 %; HCT 26.8 % (34.0-46.0); HGB 7.8 gm/dL (11.4-16.0); Hypochromasia Moderate; Lymphocytes # (A) 0.8 k/uL (1.0-4.8); Lymphocytes % (A) 20 %; MCH 29.4 pg (25.0-35.0); MCV 101.5 fL (80.0-100.0); Macrocytosis Slight; Monocytes # (A) 0.3 k/uL (0-1.0); Monocytes % (A) 8 %; Neutrophils % (A) 70 %; Platelet Count 222 k/uL (150-450); RBC 2.64 m/uL (3.80-5.40); RDW 15.5 % (11.5-15.5); WBC 4.2 k/uL (3.8-10.6)
[2018-12-22 11:35] LABS: Glucose,Whole Blood 76 mg/dL (75-99)
[2018-12-22] MEDS: SERTRALINE 100 MG TAB PO SCH (12:33)
--- NOTE | 2018-12-22 16:43 | P.PN ---
Subjective This is 63-year-old female recently hospitalized with history of COPD, CHF, diabetes mellitus, hypertension, hyperlipidemia, seizure disorder, anxiety, bipolar, depression, history of nicotine abuse, occasional marijuana use and multiple other medical issues, presented to the ER with complaints of shortness of breath, mild cough, sinus congestion. Denies fever or chills. Denies fever or chills. Maintaining O2 sats of high 90s on 4 L nasal cannula which patient wears at home .Patient attempted to contact PCPs office but office was closed an d patient presented to the ER. Denies chest pain, reports some chest pressure from coughing. Denies lightheadedness dizziness or focal deficits. BUN 55, creatinine 4.31, potassium 5.3, hemoglobin 8.2, WBC 3.7 BNP 6000 , troponin 0.0432 on admission. EKGs reporting normal sinus rhythm with left bundle branch block. Nephrology consulted. IV steroids, nebulized treatments initiated. 12/19/2018 complains of lower back pain/left lateral spasms .CT reporting nonobstructive right renal calculus 9 mm, unchanged from prior study, small left renal cyst, bladder distended. Patient is voiding. Potassium 5.8, receiving bicarbonate, D50, insulin as per nephrology. Maintained on IV fluid hydration, renal function improving, Creatinine 3.53. Hemoglobin 7.9. CO2 16, Bicarb drip initiated as per nephrology. Sinus tachycardia 12/22/2018 Right breast mass protruding from the nipple area, nondraining ,states it has been present for over a year,strong family history of Breast CA. complains of left lateral pain suspect related to multiple rib fractures . Acute abdominal series reporting lobulated mass within the right side of the thorax, representing pleural thickening or pulmonary mass, abdomen gas pattern normal no obstruction or free air. chest CT reporting multiple nonunited rib fractures as on prior exam with probable basilar scarring no pleural or pericardial effusion, posterior left ninth and 10th ribs show fractures. Reviewed radiology films/scan swith pulmonary, no lung mass, positive for scarring. Remains off of IV fluids and diuretics, Creatinine 2.69 as per nephr ology. Maintaining O2 sats in the high 90s on 4 L nasal cannula, at baseline. Denies chest pain, palpitations or increased shortness of breath. Denies lightheadedness dizziness or focal deficits. Objective - Vital Signs Vital signs: Vital Signs Temp 98.2 F 12/22/18 12:22 Pulse 100 12/22/18 16:11 Resp 17 12/22/18 12:22 BP 148/83 12/22/18 12:22 Pulse Ox 98 12/22/18 15:58 Intake & Output 12/21/18 12/22/18 12/22/18 18:59 06:59 18:59 Intake Total 1078 600 Balance 1078 600 Intake: Oral 1078 600 Other: Voiding Method Toilet Toilet # Voids 1 2 2 - Labs CBC & Chem 7: 12/22/18 10:40 12/22/18 10:40 Labs: Abnormal Lab Results - Last 24 Hours (Table) 12/21/18 12/21/18 12/22/18 Range/Units 16:49 20:43 10:40 RBC 2.64 L (3.80-5.40) m/uL Hgb 7.8 L (11.4-16.0) gm/dL Hct 26.8 L (34.0-46.0) % MCV 101.5 H (80.0-100.0) fL MCHC 29.0 L (31.0-37.0) g/dL Lymphocytes # 0.8 L (1.0-4.8) k/uL Potassium (3.5-5.1) mmol/L Chloride (98-107) mmol/L BUN (7-17) mg/dL Creatinine (0.52-1.04) mg/dL Glucose (74-99) mg/dL POC Glucose (mg/dL) 134 H 180 H (75-99) mg/dL Calcium (8.4-10.2) mg/dL 12/22/18 Range/Units 10:40 RBC (3.80-5.40) m/uL Hgb (11.4-16.0) gm/dL Hct (34.0-46.0) % MCV (80.0-100.0) fL MCHC (31.0-37.0) g/dL Lymphocytes # (1.0-4.8) k/uL Potassium 5.3 H (3.5-5.1) mmol/L Chloride 109 H (98-107) mmol/L BUN 57 H (7-17) mg/dL Creatinine 2.69 H (0.52-1.04) mg/dL Glucose 73 L (74-99) mg/dL POC Glucose (mg/dL) (75-99) mg/dL Calcium 7.1 L (8.4-10.2) mg/dL Assessment and Plan Assessment: -Acute on chronic renal failure stage IV, prerenal. No hydronephrosis Baseline creatinine 2.5 -Hyperkalemia secondary to the above, improving -Acute on chronic anemia, baseline 10 -Chronic respiratory failure, wears 4 L nasal cannula O2 at home. -Acute COPD exac., Improving -Diabetes mellitus -Hyperlipidemia -Hypertension -Seizure disorder -Anxiety, depression -Bipolar -History of nicotine abuse -Occasional marijuana use -Chronic systolic CHF -Nonobstructive right renal calculi per CT -Right breast mass protruding from nipple area, workup in progress -Multiple rib fractures of varying ages -Right mid lung lobulated density, negative for mass, representing scarring as per pulmonary review. Plan: Continue current medication regime ,monitoring and symptomatic treatment. Right breast mass protruding from nipple area, ultrasound ordered. Dr. Lai Coello consulted. Discharge planning in progress for tomorrow, pending nephrology's clearance. The impression and plan of care has been dictated as directed. .: I performed a history and examination of this patient, discussed the same with the dictator. I agree with the dictator's note ,documented as a scribe. Any additional findings or plans will be noted. Time taken: 35 minutes
[2018-12-22 16:54] LABS: Glucose,Whole Blood 144 mg/dL (75-99)
--- NOTE | 2018-12-22 17:36 | USB ---
EXAMINATION TYPE: US breast limited RT DATE OF EXAM: 12/22/2018 COMPARISON: 06/10/2018 mammogram CLINICAL HISTORY: right breast possible tumor . There is a oval-shaped 2.3 x 1.3 cm complex mass at the right nipple. There is some posterior enhance ment. This could be complex fluid. The previous mammogram shows asymmetric enlargement of the right n ipple compared to the left. This measures on the old exam 1.4 cm. Lesion appears avascular. IMPRESSION: Increasing complex density at the right nipple compared to previous mammogram. Intraduct al tumor or abscess is possible and since this is increasing in size compared to previous mammogram b iopsy is recommended. Category suspicious #4.
[2018-12-22 20:13] LABS: Glucose,Whole Blood 245 mg/dL (75-99)
[2018-12-22] MEDS: FENOFIBRATE 160 MG TAB PO SCH (21:26)
[2018-12-22] MEDS: QUEtiapine 50 MG TAB PO SCH (21:26)
[2018-12-22] MEDS: MONTELUKAST 10 MG TAB PO SCH (21:27)
[2018-12-23] MEDS: HYDROmorphone 1 MG/ML 1 ML SYRINGE IVP PRN ×2 (04:10→09:02)
[2018-12-23] MEDS: methylPREDNISolone SOD SUCCI 125 MG/2 ML VIAL IV SCH (05:49)
[2018-12-23 07:01] LABS: Glucose,Whole Blood 127 mg/dL (75-99)
[2018-12-23] MEDS: HYDROcodone/APAP 5-325MG 1 EACH TAB PO PRN ×3 (07:12→19:02)
[2018-12-23] MEDS: INSULIN ASPART (NovoLOG) 100 UNIT/ML VIAL SQ SCH ×3 (07:37→17:48)
[2018-12-23] MEDS: HEPARIN SODIUM,PORCINE 5,000 UNIT/ML 1 ML VIAL SQ SCH (08:00)
[2018-12-23] MEDS: FOLIC ACID 1 MG TAB PO SCH (08:01)
[2018-12-23] MEDS: guaiFENesin 600 MG TABLET.ER PO SCH (08:02)
[2018-12-23] MEDS: ISOSORBIDE MONONITRATE ER 60 MG TAB.ER.24H PO SCH (08:02)
[2018-12-23] MEDS: METOPROLOL SUCCINATE (ER) 100 MG TAB.ER.24H PO SCH (08:02)
[2018-12-23] MEDS: PRIMIDONE 50 MG TAB PO SCH (08:02)
[2018-12-23] MEDS: PHENYTOIN SODIUM EXTENDED 100 MG CAP PO SCH ×2 (08:02→17:45)
[2018-12-23] MEDS: PANTOPRAZOLE 40 MG TABLET PO SCH (08:02)
[2018-12-23] MEDS: SERTRALINE 100 MG TAB PO SCH (08:03)
[2018-12-23] MEDS: SYMBICORT 160-4.5 MCG INHALER INHALATION SCH (08:11)
[2018-12-23] MEDS: IPRATROPIUM-ALBUTEROL 3 ML NEB INHALATION SCH ×3 (08:11→16:22)
[2018-12-23 09:10] LABS: Calcium 7.4 mg/dL (8.4-10.2); Magnesium 1.6 mg/dL (1.6-2.3)
[2018-12-23] MEDS ORDERED: INSULIN REGULAR 100 UNIT/ML VIAL IV ONE (10:12)
[2018-12-23] MEDS ORDERED: ALBUTEROL NEBULIZED 2.5 MG/3 ML INHALATION STA (10:12)
[2018-12-23] MEDS ORDERED: DEXTROSE 50% SYRINGE 50 ML IVP STA (10:12)
[2018-12-23] MEDS ORDERED: SODIUM BICARB 8.4% 50 ML SYR (1 MEQ/ML) IV STA (10:15)
--- NOTE | 2018-12-23 10:16 | P.PN ---
Subjective Patient is seen in follow-up for acute kidney injury on chronic kidney disease. Patient has chronic kidney disease stage IV secondary to diabetic kidney disease with baseline creatinine near 2.5. Patient presented to the hospital due to not feeling well and generalized weakness. Renal function is stable. Creatinine 2.9 today. Admits to good urine output. No vomiting or diarrhea. Admits to pain in her ribs. Vital signs are stable. General: The patient appeared well nourished and normally developed. HEENT: Head exam is unremarkable. Neck is without jugular venous distension. LUNGS: Lungs are clear to auscultation and percussion. Breath sounds decreased. HEART: Rate and Rhythm are regular. First and second heart sounds normal. No mu rmurs, rubs or gallops. ABDOMEN: Abdominal exam reveals normal bowel sounds. Non-tender and non-dis tended. No evidence of peritonitis. EXTREMITITES: No clubbing, cyanosis, or edema. Objective - Vital Signs Vital signs: Vital Signs Temp 98.2 F 12/23/18 04:44 Pulse 98 12/23/18 08:25 Resp 18 12/23/18 04:44 BP 139/90 12/23/18 04:44 Pulse Ox 96 12/23/18 08:14 Intake & Output 12/22/18 12/23/18 12/23/18 18:59 06:59 18:59 Intake Total 600 Balance 600 Intake: Oral 600 Other: Voiding Method Toilet Toilet # Voids 2 1 - Labs CBC & Chem 7: 12/22/18 10:40 12/23/18 07:45 Labs: Abnormal Lab Results - Last 24 Hours (Table) 12/22/18 12/22/18 12/22/18 Range/Units 10:40 10:40 16:53 RBC 2.64 L (3.80-5.40) m/uL Hgb 7.8 L (11.4-16.0) gm/dL Hct 26.8 L (34.0-46.0) % MCV 101.5 H (80.0-100.0) fL MCHC 29.0 L (31.0-37.0) g/dL Lymphocytes # 0.8 L (1.0-4.8) k/uL Potassium 5.3 H (3.5-5.1) mmol/L Chloride 109 H (98-107) mmol/L BUN 57 H (7-17) mg/dL Creatinine 2.69 H (0.52-1.04) mg/dL Glucose 73 L (74-99) mg/dL POC Glucose (mg/dL) 144 H (75-99) mg/dL Calcium 7.1 L (8.4-10.2) mg/dL 12/22/18 12/23/18 12/23/18 Range/Units 20:12 06:59 07:45 RBC (3.80-5.40) m/uL Hgb (11.4-16.0) gm/dL Hct (34.0-46.0) % MCV (80.0-100.0) fL MCHC (31.0-37.0) g/dL Lymphocytes # (1.0-4.8) k/uL Potassium 6.0 H (3.5-5.1) mmol/L Chloride 109 H (98-107) mmol/L BUN 62 H (7-17) mg/dL Creatinine 2.93 H (0.52-1.04) mg/dL Glucose 117 H (74-99) mg/dL POC Glucose (mg/dL) 245 H 127 H (75-99) mg/dL Calcium 7.4 L (8.4-10.2) mg/dL Assessment and Plan Plan: Assessment: 1. Acute kidney injury mostly prerenal. Creatinine 4.31 on admission and was down to 2.69 as of December 22 - 2.93 today. No hydronephrosis on recent ultrasound. Rule out urinary retention. 2. Chronic kidney disease stage IV secondary to diabetic kidney disease with baseline creatinine near 2.5. 3. Dyspnea secondary to COPD exacerbation. 4. Anemia of chronic kidney disease. Maintained on Aranesp. Iron replete. 5. Metabolic acidosis secondary to acute kidney injury. Better. 6. Diabetes mellitus. 7. Chronic kidney disease mineral bone disease maintained on calcitriol. 8. Systolic CHF with ejection fraction of 45-50%. Compensated. 9. Hyperkalemia secondary to acute kidney injury and metabolic acidosis. Plan: Avoid nephrotoxins. Continue to monitor renal function and urine output. No urgent need for renal replacement therapy at this time. Remains off IV fluids and diuretics at this time. 10 units of IV insulin with an amp of D50 now. 2 A of sodium bicarbonate IV push now. Check bladder scan to rule out underlying urinary retention. Repeat potassium level this afternoon. Replace magnesium. 2 g IV today.
[2018-12-23] MEDS ORDERED: DEXTROSE 10 % IN WATER 250 ML IV ONE (10:17)
[2018-12-23 11:25] LABS: Glucose,Whole Blood 110 mg/dL (75-99)
[2018-12-23 12:33] VITALS: BP 158/84; TEMP 98.7
[2018-12-23 13:00] VITALS: PULSE 100; RESP 18
[2018-12-23] MEDS: MAGNESIUM SULFATE-D5W PMX 1 GM in DEXTROSE/WATER 1 100ML.BAG IVPB SCH ×2 (13:11→14:14)
[2018-12-23] MEDS ORDERED: methylPREDNISolone SOD SUCCI 40 MG/ML 1 ML VIAL IV SCH (16:00)
[2018-12-23 16:43] LABS: Magnesium 2.4 mg/dL (1.6-2.3); Potassium 4.6 mmol/L (3.5-5.1)
--- NOTE | 2018-12-23 17:05 | P.DS ---
Providers Date of admission: 12/19/18 09:07 Expected date of discharge: 12/23/18 Attending physician: Adal Mari Consults: 12/17/18 15:36 Consult Physician Routine Consulting Provider: Tavo Winchester Consult Reason/Comments: Renal failure Do you want consulting provider notified?: Yes 12/17/18 15:58 Consult Physician Routine Consulting Provider: Nathan Sood Consult Reason/Comments: chest pain Do you want consulting provider notified?: Yes 12/22/18 09:58 Consult Physician Routine Consulting Provider: Cynthia Ca Consult Reason/Comments: right breast nodules Do you want consulting provider notified?: Yes Primary care physician: [facility] Course: Final Diagnoses: -Acute on chronic renal failure stage IV, prerenal. No hydronephrosis Baseline creatinine 2.5 -Hyperkalemia secondary to the above, improving -Acute on chronic anemia, baseline 10 -Chronic respiratory failure, wears 4 L nasal cannula O2 at home. -Acute COPD exac., Improving -Diabetes mellitus -Hyperlipidemia -Hypertension -Seizure disorder -Anxiety, depression -Bipolar -History of nicotine abuse -Occasional marijuana use -Chronic systolic CHF -Nonobstructive right renal calculi per CT -Right breast mass protruding from nipple area, workup in progress -Multiple rib fractures of varying ages -Right mid lung lobulated density, negative for mass, representing scarring as per pulmonary review. Hospital course:This is 63-year-old female recently hospitalized with history of COPD, CHF, diabetes mellitus, hypertension, hyperlipidemia, seizure disorder, anxiety, bipolar, depression, history of nicotine abuse, occasional marijuana use and multiple other medical issues, presented to the ER with complaints of shortness of breath, mild cough, sinus congestion. Denies fever or chills. Denies fever or chills. Maintaining O2 sats of high 90s on 4 L nasal cannula which patient wears at home .Patient attempted to contact PCPs office but office was closed and patient presented to the ER. Denies chest pain, reports some chest pressure from coughing. Denies lightheadedness dizziness or focal deficits. BUN 55, creatinine 4.31, potassium 5.3, hemoglobin 8.2, WBC 3.7 BNP 6000 , troponin 0.0432 on admission. EKGs reporting normal sinus rhythm with left bundle branch block. Nephrology consulted. IV steroids, nebulized treatments initiated. 12/19/2018 complains of lower back pain/left lateral spasms .CT reporting nonobstructive right renal calculus 9 mm, unchanged from prior study, small left renal cyst, bladder distended. Patient is voiding. Potassium 5.8, receiving bicarbonate, D50, insulin as per nephrology. Maintained on IV fluid hydration, renal function improving, Creatinine 3.53. Hemoglobin 7.9. CO2 16, Bicarb drip initiated as per nephrology. Sinus tachycardia 12/22/2018 Right breast mass protruding from the nipple area, nondraining ,states it has been present for over a year,strong family history of Breast CA. complains of left lateral pain suspect related to multiple rib fractures . Acute abdominal series reporting lobulated mass within the right side of the thorax, representing pleural thickening or pulmonary mass, abdomen gas pattern normal no obstruction or free air. chest CT reporting multiple nonunited rib fractures as on prior exam with probable basilar scarring no pleural or pericardial effusion, posterior left ninth and 10th ribs show fractures. Reviewed radiology films/scan swith pulmonary, no lung mass, positive for scarring. Remains off of IV fluids and diuretics, Creatinine 2.69 as per nephrology. Maintaining O2 sats in the high 90s on 4 L nasal cannula, at baseline. Denies chest pain, palpitations or increased shortness of breath. Denies lightheadedness dizziness or focal deficits. Significant clinical improvement. Cleared by cardiology, nephrology for discharge. Breast ultrasound reporting increasing complex density at the right nipple compared to previous mammogram, oval-shaped 2.3 x 1.3 cm, intraductal tumor or abscess is possible. Dr. Lai Coello will be reevaluating patient later today after surgery, with further recommendations to follow. Patient will be discharged home in a stable condition with guarded prognosis, after evaluated by Dr. Lai Coello. EXAM:- Exam GENERAL: Alert and oriented 3, no acute distress CARDIOVASCULAR: S1, S2 regular.. No murmur RESPIRATION: Breath sounds diminished in the bases. No rhonchi or crackles. ABDOMEN: Soft, nondistended nontender . No guarding. no masses palpable. Bowel sounds heard. NERVOUS SYSTEM: No focal deficits. The impression and plan of care has been dictated as directed. : I performed a history and examination of this patient, discussed the same with the dictator. I agree with the dictator's note ,documented as a scribe. Any additional findings or plans will be noted. Time taken: 35 minutes. Patient Condition at Discharge: Stable Plan - Discharge Summary New Discharge Prescriptions: New predniSONE 10 mg PO DIRECTED #30 tab Continue Sertraline [Zoloft] 200 mg PO DAILY Phenytoin Sodium Extended [Dilantin] 100 mg PO TID QUEtiapine FUMARATE 150 mg PO HS@1999 Folic Acid 1 mg PO DAILY Gemfibrozil [Lopid] 1,200 mg PO HS Montelukast [Singulair] 10 mg PO HS #30 tab Sodium Bicarbonate Tab 1,300 mg PO BID #60 tab Omeprazole [PriLOSEC] 20 mg PO DAILY Calcitriol 0.5 mcg PO MOWEFR Primidone [Mysoline] 50 mg PO BID Isosorbide Mononitrate ER [Imdur] 60 mg PO DAILY #30 tab.er.24h Ipratropium-Albuterol Nebulize [Duoneb 0.5 mg-3 mg/3 ml Soln] 3 ml INHALATION RT-QID PRN PRN Reason: Shortness Of Breath Cefdinir [Omnicef] 300 mg PO BID #16 cap Ergocalciferol [Vitamin D2 (DRISDOL)] 50,000 unit PO Q72H #10 cap Metoprolol Succinate (ER) [Toprol XL] 100 mg PO DAILY #60 tab.er.24h Budesonide-Formot 160-4.5 Mcg [Symbicort 160-4.5 Mcg Inhaler] 2 puff INHALATION RT-BID HYDROcodone/APAP 5-325MG [[place] 5-325] 1 tab PO Q6HR PRN #12 tab PRN Reason: pain Discharge Medication List Phenytoin Sodium Extended [Dilantin] 100 mg PO TID 11/29/15 [History] Sertraline [Zoloft] 200 mg PO DAILY 11/29/15 [History] Folic Acid 1 mg PO DAILY 07/22/17 [History] QUEtiapine FUMARATE 150 mg PO HS@199907/22/17 [History] Gemfibrozil [Lopid] 1,200 mg PO HS 09/05/17 [History] Montelukast [Singulair] 10 mg PO HS #30 tab 12/26/17 [Rx] Sodium Bicarbonate Tab 1,300 mg PO BID #60 tab 02/23/18 [Rx] Calcitriol 0.5 mcg PO MOWEFR 07/20/18 [History] Omeprazole [PriLOSEC] 20 mg PO DAILY 07/20/18 [History] Primidone [Mysoline] 50 mg PO BID 07/20/18 [History] Isosorbide Mononitrate ER [Imdur] 60 mg PO DAILY #30 tab.er.24h 07/24/18 [Rx] Ipratropium-Albuterol Nebulize [Duoneb 0.5 mg-3 mg/3 ml Soln] 3 ml INHALATION RT-QID PRN 11/27/18 [History] Cefdinir [Omnicef] 300 mg PO BID #16 cap 12/04/18 [Rx] Ergocalciferol [Vitamin D2 (DRISDOL)] 50,000 unit PO Q72H #10 cap 12/04/18 [Rx] Metoprolol Succinate (ER) [Toprol XL] 100 mg PO DAILY #60 tab.er.24h 12/04/18 [Rx] Budesonide-Formot 160-4.5 Mcg [Symbicort 160-4.5 Mcg Inhaler] 2 puff INHALATION RT-BID 12/17/18 [History] HYDROcodone/APAP 5-325MG [[place] 5-325] 1 tab PO Q6HR PRN #12 tab 12/23/18 [Rx] predniSONE 10 mg PO DIRECTED #30 tab 12/23/18 [Rx] Follow up Appointment(s)/Referral(s): Adal Mari Jr, DO [Primary Care Provider] - 12/23/18 1:30 pm (Saturday) Cynthia Ca MD [STAFF PHYSICIAN] - 2 Weeks Tavo Winchester DO [STAFF PHYSICIAN] - 01/21/19 10:40 am (Saturday -earliest available appointment (was already scheduled)) Ambulatory/Diagnostic Orders: Complete Blood Count w/diff [LAB.AMB] Time Frame: 3 Days, Location: None Selected Patient Instructions/Handouts: Hydrocodone/Acetaminophen (By mouth), Prednisone (By mouth), Chronic Kidney Disease (DC), COPD (Chronic Obstructive Pulmonary Disease) (DC), Anemia (DC) Activity/Diet/Wound Care/Special Instructions: Pending repeat potassium and magnesium level within normal limits. Pending Surg- Dr. Lai Coello evaluation. Please reschedule patient's follow-up visit for 3 days. Diet: Consistent carb, renal, heart healthy Activity: Limited until follow up
[2018-12-23 17:29] LABS: Glucose,Whole Blood 137 mg/dL (75-99)
--- NOTE | 2018-12-23 18:49 | P.GSHP ---
History of Present Illness H&P Date: 12/23/18 Chief Complaint: Nodule right nipple Brie is a 63-year-old female who presented to the emergency department on [id number] with a chief complaint of cough, and not feeling well. The patient states she has been told she has congestive heart failure and known kidney disease. S he has a history of COPD, diabetes, hyperlipidemia, hypertension, and seizure disorder. The patient states that she noted approximately 2 years ago a right protuberance near her right nipple. The patient states it is gone progressively larger. She states it is not painful. It has not had any drainage. She has not noted any infection and has no history of trauma to the breast. She has no abnormal nipple discharge. She has not been in the contralateral breast. The patient states her last mammogram was within the year. During this hospitalization patient had a CAT scan performed of the chest which read revealed multiple nonunited rib fractures with some basilar scarring. Family history: Maternal grandmother breast cancer Maternal aunt: Breast cancer Past surgical history: Hysterectomy Medical history: COPD Diabetes Hypertension Emphysema Psychiatric history consistent with prior history of anxiety, bipolar, depression Social history: Smokes stopped 40 years ago Alcohol: Negative Drugs: Marijuana occasionally - Constitutional Constitutional: Denies chills, Denies fever - EENT Comment: Secondary to nasal 02 - Breasts Breasts: bilateral: as per HPI - Cardiovascular Comment: High cholesterol Cardiovascular: Reports high blood pressure - Respiratory Comment: COPD - Gastrointestinal Comment: Irritable bowel syndrome - Genitourinary (Female) Genitourinary: Reports kidney stones, Denies dysuria, Denies hematuria - Menstruation Menstruation: Reports post hysterectomy - Musculoskeletal Comment: Arthritis Musculoskeletal: Reports myalgias - Integumentary Comment: Bruising - Neurological Neurological: Reports seizures - Psychiatric Psychiatric: Reports anxiety, Reports depression - Endocrine Comment: Diabetes - Hematologic/Lymphatic Hematologic/Lymphatic: Reports as per HPI - Allergic/Immunologic Comment: Cats and dogs Past Medical History Past Medical History: COPD, Diabetes Mellitus, Hyperlipidemia, Hypertension, Seizure Disorder History of Any Multi-Drug Resistant Organisms: None Reported Past Surgical History: Hysterectomy Additional Past Surgical History / Comment(s): ESWL Past Anesthesia/Blood Transfusion Reactions: No Reported Reaction Past Psychological History: Anxiety, Bipolar, Depression Additional Psychological History / Comment(s): mother recently Smoking Status: Former smoker Past Alcohol Use History: None Reported Additional Past Alcohol Use History / Comment(s): pt. states she was a 2 pack a day smoker for many years and quit in 2016 Past Drug Use History: Marijuana Additional Drug Use History / Comment(s): pt. states she occassionally smokes marijuana - Past Family History Mother Family Medical History: Diabetes Mellitus, Hypertension Father Family Medical History: Hypertension Medications and Allergies Home Medications Medication Instructions Recorded Confirmed Type Phenytoin Sodium Extended 100 mg PO TID 11/29/15 12/17/18 History [Dilantin] Sertraline [Zoloft] 200 mg PO DAILY 11/29/15 12/17/18 History Folic Acid 1 mg PO DAILY 07/22/17 12/17/18 History QUEtiapine FUMARATE 150 mg PO HS@199907/22/17 12/17/18 History Gemfibrozil [Lopid] 1,200 mg PO HS 09/05/17 12/17/18 History Montelukast [Singulair] 10 mg PO HS #30 tab 12/26/17 12/17/18 Rx Sodium Bicarbonate Tab 1,300 mg PO BID #60 tab 02/23/18 12/17/18 Rx Calcitriol 0.5 mcg PO MOWEFR 07/20/18 12/17/18 History Omeprazole [PriLOSEC] 20 mg PO DAILY 07/20/18 12/17/18 History Primidone [Mysoline] 50 mg PO BID 07/20/18 12/17/18 History Isosorbide Mononitrate ER [Imdur] 60 mg PO DAILY #30 tab.er.24h 07/24/18 12/17/18 Rx Ipratropium-Albuterol Nebulize 3 ml INHALATION RT-QID PRN 11/27/18 12/17/18 History [Duoneb 0.5 mg-3 mg/3 ml Soln] Cefdinir [Omnicef] 300 mg PO BID #16 cap 12/04/18 12/17/18 Rx Ergocalciferol [Vitamin D2 50,000 unit PO Q72H #10 cap 12/04/18 12/17/18 Rx (DRISDOL)] Metoprolol Succinate (ER) [Toprol 100 mg PO DAILY #60 tab.er.24h 12/04/18 12/17/18 Rx XL] Budesonide-Formot 160-4.5 Mcg 2 puff INHALATION RT-BID 12/17/18 12/17/18 History [Symbicort 160-4.5 Mcg Inhaler] HYDROcodone/APAP 5-325MG [[place] 1 tab PO Q6HR PRN #12 tab 12/23/18 Rx 5-325] predniSONE 10 mg PO DIRECTED #30 tab 12/23/18 Rx Allergies Allergy/AdvReac Type Severity Reaction Status Date / Time Penicillins Allergy Mild Swelling Verified 12/17/18 13:30 Surgical - Exam Vital Signs Temp Pulse Resp BP Pulse Ox 98.3 F 95 20 137/73 97 12/17/18 12:54 12/17/18 12:54 12/17/18 12:54 12/17/18 12:54 12/17/18 12:54 BMI 30.6 - General obese - Eyes normal ocular movement - ENT no hearing loss, no congestion - Neck trachea midline - Respiratory normal respiratory effort, clear to auscultation - Cardiovascular Rhythm: regular Heart Sounds: normal: S1, S2 - Abdomen Abdomen: soft, non tender, no guarding, no rigid, no rebound - Integumentary echymosis on extremities - Neurologic no disoriented, no combative - Musculoskeletal laying in bed - Psychiatric oriented to time, oriented to person, oriented to place, speech is normal, memory intact Breast exam: Right breast: At the nipple area over area there is a approximately 2.5 by 3 cm protuberance which appears to be a large sebaceous cyst like lesion. It is protruding up to the skin. The lesion is somewhat soft, and is not consistent with a typical malignancy. Examination of the remainder of the breast does not reveal any dominant masses or nodules of concern Right axilla: No adenopathy of concern Left breast: Multiple positional exam no dominant masses or nodules of concern Left axilla: No adenopathy of concern Results Ultrasound of the right nipple area reviewed, in full 2.3 x 1.3 cm complex mass at the right nipple. There are some posterior enhancement which could be complex fluid. The previous mammogram shows some asymmetric enlargement of the right nipple area compared to the left. Impression: Increasing complex density at the right nipple compared to previous mammogram intraductal tumor abscesses possible and biopsy recommended - Labs 12/22/18 10:40 12/23/18 16:13 Abnormal Lab Results - Last 24 Hours (Table) 12/22/18 12/23/18 12/23/18 Range/Units 20:12 06:59 07:45 Potassium 6.0 H (3.5-5.1) mmol/L Chloride 109 H (98-107) mmol/L BUN 62 H (7-17) mg/dL Creatinine 2.93 H (0.52-1.04) mg/dL Glucose 117 H (74-99) mg/dL POC Glucose (mg/dL) 245 H 127 H (75-99) mg/dL Calcium 7.4 L (8.4-10.2) mg/dL Magnesium (1.6-2.3) mg/dL 12/23/18 12/23/18 12/23/18 Range/Units 11:24 16:13 17:28 Potassium (3.5-5.1) mmol/L Chloride (98-107) mmol/L BUN (7-17) mg/dL Creatinine (0.52-1.04) mg/dL Glucose (74-99) mg/dL POC Glucose (mg/dL) 110 H 137 H (75-99) mg/dL Calcium (8.4-10.2) mg/dL Magnesium 2.4 H (1.6-2.3) mg/dL Diabetes panel 12/23/18 12/23/18 Range/Units 07:45 16:13 Sodium 142 (137-145) mmol/L Potassium 6.0 H 4.6 (3.5-5.1) mmol/L Chloride 109 H (98-107) mmol/L Carbon Dioxide 22 (22-30) mmol/L BUN 62 H (7-17) mg/dL Creatinine 2.93 H (0.52-1.04) mg/dL Glucose 117 H (74-99) mg/dL Calcium 7.4 L (8.4-10.2) mg/dL Calcium panel 12/23/18 Range/Units 07:45 Calcium 7.4 L (8.4-10.2) mg/dL Pituitary panel 12/23/18 12/23/18 Range/Units 07:45 16:13 Sodium 142 (137-145) mmol/L Potassium 6.0 H 4.6 (3.5-5.1) mmol/L Chloride 109 H (98-107) mmol/L Carbon Dioxide 22 (22-30) mmol/L BUN 62 H (7-17) mg/dL Creatinine 2.93 H (0.52-1.04) mg/dL Glucose 117 H (74-99) mg/dL Calcium 7.4 L (8.4-10.2) mg/dL Adrenal panel 12/23/18 12/23/18 Range/Units 07:45 16:13 Sodium 142 (137-145) mmol/L Potassium 6.0 H 4.6 (3.5-5.1) mmol/L Chloride 109 H (98-107) mmol/L Carbon Dioxide 22 (22-30) mmol/L BUN 62 H (7-17) mg/dL Creatinine 2.93 H (0.52-1.04) mg/dL Glucose 117 H (74-99) mg/dL Calcium 7.4 L (8.4-10.2) mg/dL Assessment and Plan Assessment: Impression: 1. Right nipple/areolar superficial mass suspect may be a complex cystic lesion 2. Family history of breast cancer 3. COPD 4. Diabetes 5. Hypertension 6. Emphysema 7. Seizure disorder 8. Acute and chronic kidney disease Plan: 1. Review patient's mammograms 2. Suspect the right nipple area over lesion is a benign cystic lesion would recommend excision in the operating room 3. Patient will need medical clearance prior to any resection 4. Patient is stable for discharge home and will contact her tomorrow regarding probable resection in the operating room 5. I'm not recommending a core biopsy as this is somewhat soft, it would be very atypical for malignancy, and I believe most likely represents a variant of a large sebaceous cyst. Risk and benefits of the procedure been discussed with the patient and she wishes to proceed. I suspect this is a nonmalignant process, however if this should be a malignancy she may require further surgical intervention. She understands this and wishes to proceed.
== END 2018-12-23 19:35 | disposition home or self-care (01) ==
LOC: EC 12:53 → UNDOADMOB 15:43 → 3SCARD 15:43 → INTOOBSV 15:43 → 3SCARD 18:56 → INTOOBSV 12-19 09:07 → OBSVTOIN 12-19 09:07 → 3SCARD 12-20 07:30 → 4SSUR 12-20 07:30 → 3NMEDONC 12-22 07:37 → 4SSUR 12-22 07:37 → UNDODISIN 12-23 19:35
PROVIDERS: ADMIT Family Medicine; ATTEND Family Medicine
PROC: 5A09357 Assistance with Respiratory Ventilation, Less than 24 Consecutive Hours, Continuous Positive Airway Pressure (ICD-10-PCS; principal; 2018-12-21)
DX: N17.9 Acute kidney failure, unspecified (principal); I13.0 Hypertensive heart and chronic kidney disease with heart failure and stage 1 through stage 4 chronic kidney disease, or unspecified chronic kidney disease; N18.4 Chronic kidney disease, stage 4 (severe); I50.22 Chronic systolic (congestive) heart failure; I50.30 Unspecified diastolic (congestive) heart failure; E11.22 Type 2 diabetes mellitus with diabetic chronic kidney disease; E87.5 Hyperkalemia; J96.10 Chronic respiratory failure, unspecified whether with hypoxia or hypercapnia; J44.1 Chronic obstructive pulmonary disease with (acute) exacerbation; E78.5 Hyperlipidemia, unspecified; F41.9 Anxiety disorder, unspecified; F31.9 Bipolar disorder, unspecified; N20.0 Calculus of kidney; N63.41 Unspecified lump in right breast, subareolar; S22.49XA Multiple fractures of ribs, unspecified side, initial encounter for closed fracture; G40.909 Epilepsy, unspecified, not intractable, without status epilepticus; R00.0 Tachycardia, unspecified; E87.2 Acidosis; I44.7 Left bundle-branch block, unspecified; E83.89 Other disorders of mineral metabolism; N28.1 Cyst of kidney, acquired; R77.9 Abnormality of plasma protein, unspecified; E66.9 Obesity, unspecified; Z68.30 Body mass index [BMI] 30.0-30.9, adult; D63.1 Anemia in chronic kidney disease; E78.00 Pure hypercholesterolemia, unspecified; K58.9 Irritable bowel syndrome, unspecified; M19.90 Unspecified osteoarthritis, unspecified site; J30.81 Allergic rhinitis due to animal (cat) (dog) hair and dander; Z79.51 Long term (current) use of inhaled steroids; Z79.899 Other long term (current) drug therapy; Z99.81 Dependence on supplemental oxygen; Z90.710 Acquired absence of both cervix and uterus; Z87.891 Personal history of nicotine dependence; Z88.0 Allergy status to penicillin; Z80.3 Family history of malignant neoplasm of breast; Z82.49 Family history of ischemic heart disease and other diseases of the circulatory system; Z83.3 Family history of diabetes mellitus
CPT/HCPCS: 96376 ×8; 96366 ×5; 96367 ×2; 96372 ×5; 96375 ×3; 96365; 99285; 36415; 94640 ×11; 94760 ×3; 83880; 80053; 80048 ×5; 82728; 83540; 83550; 83605; 83735 ×4; 84100; 84132 ×2; 84484; 85025 ×4; 85610; 85730 ×2; 81001; 74022; 71046; 76642; 71250; 74176; G0378 ×7; J1644 ×8; J2920; J2930 ×7; J1170 ×3; J3475; J0881

== ENCOUNTER 2019-03-07 13:27 | Inpatient (IN) | payer OTHER ==
[2019-03-07] MEDS ORDERED: IPRATROPIUM-ALBUTEROL 3 ML NEB INHALATION STA (13:58)
--- NOTE | 2019-03-07 14:01 | ED ---
General Adult HPI - General Chief complaint: Altered Mental Status Stated complaint: Confusion Time Seen by Provider: 03/07/19 13:45 Source: patient, family, RN notes reviewed Mode of arrival: wheelchair Limitations: no limitations - History of Present Illness Initial comments: Patient is a pleasant 63-year-old female presenting to the emergency department with concerns for confusion. Patient has not been taking her medications appropriately. Patient has not been taking her lactulose. Patient does have history of similar problems previously associated with hyperammonemia. Patient does have known liver and kidney disease however is not clear what type of liver disease she has. Patient denies any history of alcohol use. Patient has chronic dyspnea and states this is only a little bit worse than normal. Patient is on 4 L nasal cannula at home. - Related Data Home Medications Medication Instructions Recorded Confirmed Phenytoin Sodium Extended 100 mg PO TID 11/29/15 03/07/19 [Dilantin] Sertraline [Zoloft] 200 mg PO DAILY 11/29/15 03/07/19 Folic Acid 1 mg PO DAILY 07/22/17 03/07/19 QUEtiapine FUMARATE 150 mg PO HS@199907/22/17 03/07/19 Gemfibrozil [Lopid] 1,200 mg PO HS 09/05/17 03/07/19 Calcitriol 0.5 mcg PO MOWEFR 07/20/18 03/07/19 Omeprazole [PriLOSEC] 20 mg PO DAILY 07/20/18 03/07/19 Primidone [Mysoline] 50 mg PO BID 07/20/18 03/07/19 Ipratropium-Albuterol Nebulize 3 ml INHALATION RT-QID PRN 11/27/18 03/07/19 [Duoneb 0.5 mg-3 mg/3 ml Soln] Budesonide-Formot 160-4.5 Mcg 2 puff INHALATION RT-BID 12/17/18 03/07/19 [Symbicort 160-4.5 Mcg Inhaler] Bisoprolol-Hctz 5-6.25 mg [Ziac 1 tab PO DAILY 03/07/19 03/07/19 5-6.25 MG] Furosemide [Lasix] 40 mg PO Q48D 03/07/19 03/07/19 Metoprolol Succinate (ER) [Toprol 50 mg PO DAILY 03/07/19 03/07/19 XL] Potassium Chloride 10 meq PO DAILY 03/07/19 03/07/19 Previous Rx's Medication Instructions Recorded Montelukast [Singulair] 10 mg PO HS #30 tab 12/26/17 Sodium Bicarbonate Tab 1,300 mg PO BID #60 tab 02/23/18 Allergies Allergy/AdvReac Type Severity Reaction Status Date / Time Penicillins Allergy Mild Swelling Verified 03/07/19 14:15 Review of Systems ROS Statement: Those systems with pertinent positive or pertinent negative responses have been documented in the HPI. ROS Other: All systems not noted in ROS Statement are negative. Constitutional: Denies: fever Eyes: Denies: eye pain ENT: Denies: ear pain Respiratory: Reports: as per HPI Cardiovascular: Denies: chest pain Endocrine: Denies: fatigue Gastrointestinal: Denies: abdominal pain Genitourinary: Denies: dysuria Musculoskeletal: Denies: back pain Skin: Denies: rash Neurological: Reports: confusion. Denies: headache Past Medical History Past Medical History: COPD, Diabetes Mellitus, Hyperlipidemia, Hypertension, Seizure Disorder Additional Past Medical History / Comment(s): elevated ammonia History of Any Multi-Drug Resistant Organisms: None Reported Past Surgical History: Hysterectomy Additional Past Surgical History / Comment(s): ESWL Past Anesthesia/Blood Transfusion Reactions: No Reported Reaction Past Psychological History: Anxiety, Bipolar, Depression Smoking Status: Former smoker Past Alcohol Use History: None Reported Past Drug Use History: Marijuana - Past Family History Mother Family Medical History: Diabetes Mellitus, Hypertension Father Family Medical History: Hypertension General Exam Limitations: physical limitation General appearance: alert, in no apparent distress Head exam: Present: normocephalic Eye exam: Present: normal appearance, PERRL, EOMI ENT exam: Present: normal oropharynx Neck exam: Present: normal inspection Respiratory exam: Present: decreased breath sounds Cardiovascular Exam: Present: regular rate, normal rhythm GI/Abdominal exam: Present: soft. Absent: tenderness Extremities exam: Present: normal inspection Neurological exam: Present: alert, CN II-XII intact. Absent: motor sensory deficit Expanded Neurological exam: Present: protecting the airway Patient oriented to: Present: person, place. Absent: time Motor strength exam: RUE: 5, LUE: 5, RLE: 5, LLE: 5 Psychiatric exam: Present: normal affect, normal mood Skin exam: Present: normal color Course Vital Signs 03/07/19 03/07/19 03/07/19 13:33 14:58 15:05 Temperature 97.4 F L Pulse Rate 96 94 96 Respiratory 20 Rate Blood Pressure 147/97 O2 Sat by Pulse 97 Oximetry 03/07/19 03/07/19 15:31 15:38 Temperature Pulse Rate 98 Respiratory 26 H 24 Rate Blood Pressure 159/83 O2 Sat by Pulse 97 Oximetry EKG Findings - EKG Comments: EKG Findings:: Normal sinus rhythm 96. AL 168. QRS 134. QT 4:30. QTC 543. Normal axis. Left bundle branch block. Nonspecific T waves. Medical Decision Making - Medical Decision Making Patient reevaluated and updated. Case was discussed in detail with Dr. Levy, who will admit his patient. - Lab Data Result diagrams: 03/07/19 14:46 03/07/19 14:46 Lab Results 03/07/19 03/07/19 03/07/19 Range/Units 14:46 14:46 14:46 WBC 5.6 (3.8-10.6) k/uL RBC 3.01 L (3.80-5.40) m/uL Hgb 9.4 L (11.4-16.0) gm/dL Hct 31.3 L (34.0-46.0) % MCV 103.8 H (80.0-100.0) fL MCH 31.3 (25.0-35.0) pg MCHC 30.2 L (31.0-37.0) g/dL RDW 15.7 H (11.5-15.5) % Plt Count 227 (150-450) k/uL Neutrophils % 76 % Lymphocytes % 15 % Monocytes % 5 % Eosinophils % 2 % Basophils % 0 % Neutrophils # 4.2 (1.3-7.7) k/uL Lymphocytes # 0.9 L (1.0-4.8) k/uL Monocytes # 0.3 (0-1.0) k/uL Eosinophils # 0.1 (0-0.7) k/uL Basophils # 0.0 (0-0.2) k/uL Hypochromasia Slight Poikilocytosis Slight Macrocytosis Moderate PT (9.0-12.0) sec INR (<1.2) APTT (22.0-30.0) sec Sodium 147 H (137-145) mmol/L Potassium 4.9 (3.5-5.1) mmol/L Chloride 115 H (98-107) mmol/L Carbon Dioxide 15 L (22-30) mmol/L Anion Gap 17 mmol/L BUN 60 H (7-17) mg/dL Creatinine 3.93 H (0.52-1.04) mg/dL Est GFR (CKD-EPI)AfAm 13 (>60 ml/min/1.73 sqM) Est GFR (CKD-EPI)NonAf 11 (>60 ml/min/1.73 sqM) Glucose 101 H (74-99) mg/dL Calcium 6.8 L (8.4-10.2) mg/dL Total Bilirubin 0.3 (0.2-1.3) mg/dL AST 22 (14-36) U/L ALT 14 (9-52) U/L Alkaline Phosphatase 199 H (38-126) U/L Ammonia 54 H (<30) umol/L Troponin I (0.000-0.034) ng/mL Total Protein 7.3 (6.3-8.2) g/dL Albumin 4.1 (3.5-5.0) g/dL 03/07/19 03/07/19 Range/Units 14:46 14:46 WBC (3.8-10.6) k/uL RBC (3.80-5.40) m/uL Hgb (11.4-16.0) gm/dL Hct (34.0-46.0) % MCV (80.0-100.0) fL MCH (25.0-35.0) pg MCHC (31.0-37.0) g/dL RDW (11.5-15.5) % Plt Count (150-450) k/uL Neutrophils % % Lymphocytes % % Monocytes % % Eosinophils % % Basophils % % Neutrophils # (1.3-7.7) k/uL Lymphocytes # (1.0-4.8) k/uL Monocytes # (0-1.0) k/uL Eosinophils # (0-0.7) k/uL Basophils # (0-0.2) k/uL Hypochromasia Poikilocytosis Macrocytosis PT 10.6 (9.0-12.0) sec INR 1.0 (<1.2) APTT 23.8 (22.0-30.0) sec Sodium (137-145) mmol/L Potassium (3.5-5.1) mmol/L Chloride (98-107) mmol/L Carbon Dioxide (22-30) mmol/L Anion Gap mmol/L BUN (7-17) mg/dL Creatinine (0.52-1.04) mg/dL Est GFR (CKD-EPI)AfAm (>60 ml/min/1.73 sqM) Est GFR (CKD-EPI)NonAf (>60 ml/min/1.73 sqM) Glucose (74-99) mg/dL Calcium (8.4-10.2) mg/dL Total Bilirubin (0.2-1.3) mg/dL AST (14-36) U/L ALT (9-52) U/L Alkaline Phosphatase (38-126) U/L Ammonia (<30) umol/L Troponin I 0.031 (0.000-0.034) ng/mL Total Protein (6.3-8.2) g/dL Albumin (3.5-5.0) g/dL - Radiology Data Radiology results: image reviewed (Chest x-ray shows stable chronic parenchymal changes without acute abnormality.) Disposition Clinical Impression: Hepatic encephalopathy, Renal failure Disposition: ADMITTED IP TO THIS HOSP Is patient prescribed a controlled substance at d/c from ED?: No Referrals: Adal Mari Jr, DO [Primary Care Provider] - 1-2 days Decision Time: 17:18
[2019-03-07 14:55] LABS: Basophils % (A) 0 %; Eosinophils # (A) 0.1 k/uL (0-0.7); Eosinophils % (A) 2 %; HCT 31.3 % (34.0-46.0); HGB 9.4 gm/dL (11.4-16.0); Hypochromasia Slight; Lymphocytes # (A) 0.9 k/uL (1.0-4.8); Lymphocytes % (A) 15 %; MCH 31.3 pg (25.0-35.0); MCHC 30.2 g/dL (31.0-37.0); MCV 103.8 fL (80.0-100.0); Macrocytosis Moderate; Mean Platelet Volume 7.7; Monocytes # (A) 0.3 k/uL (0-1.0); Monocytes % (A) 5 %; Neutrophils # (A) 4.2 k/uL (1.3-7.7); Neutrophils % (A) 76 %; Platelet Count 227 k/uL (150-450); Poikilocytosis Slight; RBC 3.01 m/uL (3.80-5.40); RDW 15.7 % (11.5-15.5); WBC 5.6 k/uL (3.8-10.6)
[2019-03-07 15:11] LABS: Partial Thromboplastin Time 23.8 sec (22.0-30.0); Prothrombin Time 10.6 sec (9.0-12.0)
[2019-03-07 15:14] LABS: Albumin 4.1 g/dL (3.5-5.0); Calcium 6.8 mg/dL (8.4-10.2); Potassium 4.9 mmol/L (3.5-5.1); Total Bilirubin 0.3 mg/dL (0.2-1.3); Total Protein 7.3 g/dL (6.3-8.2)
--- NOTE | 2019-03-07 16:57 | XR ---
EXAMINATION TYPE: XR chest 2V DATE OF EXAM: 03/07/2019 COMPARISON: Chest radiograph 12/17/2018 HISTORY: Altered mental status, shortness of breath TECHNIQUE: Frontal and lateral views of the chest are obtained. FINDINGS: Low lung volumes limits assessment. The patient is rotated. No definitive cardiac silhouette enlargem ent. Right basilar opacity redemonstrated, likely atelectasis. Chronic parenchymal change with persis tent right suprahilar opacity again noted. Left lung is clear. No pleural effusion or pneumothorax. M ultiple right-sided rib fractures redemonstrated. IMPRESSION: Stable exam with chronic parenchymal changes, as before. No acute superimposed radiograp hic abnormality.
[2019-03-07] MEDS ORDERED: LACTULOSE 20 GM/30 ML CUP PO ONE (17:21)
[2019-03-07] MEDS ORDERED: NALOXONE 0.4 MG/ML 1 ML VIAL IV PRN (17:22)
[2019-03-07] MEDS: SODIUM CHLORIDE 0.9% 1,000 ML IV SCH (18:21)
[2019-03-07 19:25] LABS: Glucose,Whole Blood 101 mg/dL (75-99)
[2019-03-07] MEDS: SYMBICORT 160-4.5 MCG INHALER INHALATION SCH (20:20)
[2019-03-07] MEDS: PRIMIDONE 50 MG TAB PO SCH (21:42)
[2019-03-07] MEDS: MONTELUKAST 10 MG TAB PO SCH (21:42)
[2019-03-07] MEDS: SODIUM BICARBONATE TAB 650 MG TAB PO SCH (21:42)
[2019-03-07] MEDS: FENOFIBRATE 160 MG TAB PO SCH (21:42)
[2019-03-07] MEDS: PHENYTOIN SODIUM EXTENDED 100 MG CAP PO SCH (21:42)
[2019-03-07] MEDS: LACTULOSE 20 GM/30 ML CUP PO SCH (21:43)
[2019-03-08] MEDS: MELATONIN 3 MG TABLET PO PRN ×2 (01:54→20:59)
[2019-03-08 08:03] LABS: Albumin 3.6 g/dL (3.5-5.0); Calcium 6.8 mg/dL (8.4-10.2); Magnesium 1.7 mg/dL (1.6-2.3); Phosphorus 6.3 mg/dL (2.5-4.5); Potassium 4.2 mmol/L (3.5-5.1); Total Bilirubin 0.2 mg/dL (0.2-1.3); Total Protein 6.6 g/dL (6.3-8.2)
[2019-03-08] MEDS: PANTOPRAZOLE 40 MG TABLET PO SCH (08:08)
[2019-03-08] MEDS: METOPROLOL SUCCINATE (ER) 50 MG TAB.ER.24H PO SCH (08:08)
[2019-03-08] MEDS: PRIMIDONE 50 MG TAB PO SCH ×2 (08:08→20:59)
[2019-03-08] MEDS: SERTRALINE 50 MG TAB PO SCH (08:08)
[2019-03-08] MEDS: ACETAMINOPHEN TAB 325 MG TAB PO PRN ×2 (08:09→18:14)
[2019-03-08] MEDS: LACTULOSE 20 GM/30 ML CUP PO SCH ×3 (08:09→20:58)
[2019-03-08] MEDS: SODIUM BICARBONATE TAB 650 MG TAB PO SCH ×3 (08:09→20:59)
[2019-03-08] MEDS: FOLIC ACID 1 MG TAB PO SCH (08:09)
[2019-03-08] MEDS: SODIUM CHLORIDE 0.9% 1,000 ML IV SCH ×2 (08:09→23:20)
[2019-03-08] MEDS: PHENYTOIN SODIUM EXTENDED 100 MG CAP PO SCH ×3 (08:10→20:59)
[2019-03-08] MEDS: SYMBICORT 160-4.5 MCG INHALER INHALATION SCH ×2 (09:57→21:12)
--- NOTE | 2019-03-08 10:36 | P.HPIM ---
History of Present Illness H&P Date: 03/08/19 Chief Complaint: Altered mental status Brie Lei is a 63-year-old female who presented to the hospital via the emergency room with significant confusion. Patient has been not been taking her medications appropriately, has not been taking lactulose does have a history of similar problems with associated with hyperammonemia. Patient does have known liver and kidney disease however it is not clear what type of liver disease she has AST and ALTs are relatively normal. No history of alcohol use. Patient does have chronic COPD from long years of cigarette smoking. In the past is been a daily smoker of marijuana. He is O2 dependent chronic obstructive lung disease and is often on by mouth steroids as well as long-acting inhaled corticosteroids and long-acting inhaled beta agonists. Review of Systems Constitutional: Reports as per HPI, Reports poor appetite Ears, nose, mouth and throat: Reports as per HPI Cardiovascular: Reports high blood pressure Respiratory: Reports congestion, Reports cough, Reports dyspnea, Reports home oxygen Gastrointestinal: Reports as per HPI (Chronic loose stool) Genitourinary: Reports as per HPI Menstruation: Reports postmenopausal Musculoskeletal: Reports frequent falls, Reports morning stiffness, Reports muscle weakness Integumentary: Reports as per HPI Neurological: Reports balance difficulties, Reports memory loss Psychiatric: Reports anxiety Endocrine: Reports as per HPI, Reports cold intolerance Past Medical History Past Medical History: COPD, Diabetes Mellitus, Hyperlipidemia, Hypertension, Seizure Disorder Additional Past Medical History / Comment(s): elevated ammonia, last Seizure >10 years History of Any Multi-Drug Resistant Organisms: None Reported Past Surgical History: Hysterectomy Additional Past Surgical History / Comment(s): ESWL Past Anesthesia/Blood Transfusion Reactions: No Reported Reaction Past Psychological History: Anxiety, Bipolar, Depression Additional Psychological History / Comment(s): mother recently Smoking Status: Former smoker Past Alcohol Use History: None Reported Additional Past Alcohol Use History / Comment(s): pt. states she was a 2 pack a day smoker for many years and quit in 2016 Past Drug Use History: Marijuana Additional Drug Use History / Comment(s): pt. states she occassionally smokes marijuana - Past Family History Mother Family Medical History: Diabetes Mellitus, Hypertension Father Family Medical History: Hypertension Medications and Allergies Home Medications Medication Instructions Recorded Confirmed Type Phenytoin Sodium Extended 100 mg PO TID 11/29/15 03/07/19 History [Dilantin] Sertraline [Zoloft] 200 mg PO DAILY 11/29/15 03/07/19 History Folic Acid 1 mg PO DAILY 07/22/17 03/07/19 History QUEtiapine FUMARATE 150 mg PO HS@199907/22/17 03/07/19 History Gemfibrozil [Lopid] 1,200 mg PO HS 09/05/17 03/07/19 History Montelukast [Singulair] 10 mg PO HS #30 tab 12/26/17 03/07/19 Rx Sodium Bicarbonate Tab 1,300 mg PO BID #60 tab 02/23/18 03/07/19 Rx Calcitriol 0.5 mcg PO MOWEFR 07/20/18 03/07/19 History Omeprazole [PriLOSEC] 20 mg PO DAILY 07/20/18 03/07/19 History Primidone [Mysoline] 50 mg PO BID 07/20/18 03/07/19 History Ipratropium-Albuterol Nebulize 3 ml INHALATION RT-QID PRN 11/27/18 03/07/19 History [Duoneb 0.5 mg-3 mg/3 ml Soln] Budesonide-Formot 160-4.5 Mcg 2 puff INHALATION RT-BID 12/17/18 03/07/19 History [Symbicort 160-4.5 Mcg Inhaler] Bisoprolol-Hctz 5-6.25 mg [Ziac 1 tab PO DAILY 03/07/19 03/07/19 History 5-6.25 MG] Furosemide [Lasix] 40 mg PO Q48D 03/07/19 03/07/19 History Metoprolol Succinate (ER) [Toprol 50 mg PO DAILY 03/07/19 03/07/19 History XL] Potassium Chloride 10 meq PO DAILY 03/07/19 03/07/19 History Allergies Allergy/AdvReac Type Severity Reaction Status Date / Time Penicillins Allergy Mild Swelling Verified 03/07/19 14:15 Physical Exam Osteopathic Statement: *. No significant issues noted on an osteopathic structural exam other than those noted in the History and Physical/Consult. Vitals: Vital Signs Temp Pulse Pulse Resp BP BP Pulse Ox 03/08/19 04:40 98.1 F 89 16 143/83 100 03/07/19 21:30 98.2 F 93 22 152/86 96 03/07/19 20:20 99 03/07/19 18:36 97.4 F L 104 H 19 154/93 94 L 03/07/19 17:25 104 H 19 154/93 94 L 03/07/19 17:00 104 H 19 154/93 94 L 03/07/19 16:30 102 H 25 H 154/93 99 03/07/19 16:00 98 17 153/79 99 03/07/19 15:38 98 24 159/83 97 03/07/19 15:31 26 H 03/07/19 15:05 96 03/07/19 14:58 94 03/07/19 14:40 104 H 19 154/93 94 L 03/07/19 13:33 97.4 F L 96 20 147/97 97 Intake and Output 03/07/19 03/08/19 03/08/19 22:59 06:59 14:59 Intake Total 75 Balance 75 Intake: Amount of Fluid Infused ( 75 ml) Other: Voiding Method Bedside Commode Incontinent # Voids 2 4 1 # Bowel Movements 3 General: [Patient awake, alert and oriented times 3. Patient in no acute distress.] HEENT: [PERRL. EOMI. No pharyngeal erythema or exudate.] Neck: [No adenopathy.] Cardiac: [Heart regular in rate and rhythm. No S3. No S4. No clicks, rubs. No murmur.] Lungs: Diminished breath sounds bilaterally Abdomen: [No mass. No organomegaly. Bowel sounds presnt and normoactive in all 4 quadrants.] Extremes: [No edema no cyanosis no claudication normal pulses] : Normal female genitalia Musculoskeletal: [No joint erythema, edema or tenderness.] Skin: [No rash.] Neurologic: [No lateralizing deficits. CN II - XII grossly intact.] Lymphatic: [No adenopathy.] Results CBC & Chem 7: 03/07/19 14:46 03/08/19 07:25 Labs: Abnormal Lab Results - Last 24 Hours (Table) 03/07/19 03/07/19 03/07/19 Range/Units 14:46 14:46 14:46 RBC 3.01 L (3.80-5.40) m/uL Hgb 9.4 L (11.4-16.0) gm/dL Hct 31.3 L (34.0-46.0) % MCV 103.8 H (80.0-100.0) fL MCHC 30.2 L (31.0-37.0) g/dL RDW 15.7 H (11.5-15.5) % Lymphocytes # 0.9 L (1.0-4.8) k/uL Sodium 147 H (137-145) mmol/L Chloride 115 H (98-107) mmol/L Carbon Dioxide 15 L (22-30) mmol/L BUN 60 H (7-17) mg/dL Creatinine 3.93 H (0.52-1.04) mg/dL Glucose 101 H (74-99) mg/dL POC Glucose (mg/dL) (75-99) mg/dL Calcium 6.8 L (8.4-10.2) mg/dL Ionized Calcium Graciela (4.5-5.3) mg/dL Phosphorus (2.5-4.5) mg/dL Alkaline Phosphatase 199 H (38-126) U/L Ammonia 54 H (<30) umol/L 03/07/19 03/07/19 03/08/19 Range/Units 17:42 19:24 07:25 RBC (3.80-5.40) m/uL Hgb (11.4-16.0) gm/dL Hct (34.0-46.0) % MCV (80.0-100.0) fL MCHC (31.0-37.0) g/dL RDW (11.5-15.5) % Lymphocytes # (1.0-4.8) k/uL Sodium (137-145) mmol/L Chloride 118 H (98-107) mmol/L Carbon Dioxide 16 L (22-30) mmol/L BUN 53 H (7-17) mg/dL Creatinine 3.41 H (0.52-1.04) mg/dL Glucose 106 H (74-99) mg/dL POC Glucose (mg/dL) 101 H (75-99) mg/dL Calcium 6.8 L (8.4-10.2) mg/dL Ionized Calcium Graciela 3.8 L (4.5-5.3) mg/dL Phosphorus 6.3 H (2.5-4.5) mg/dL Alkaline Phosphatase 175 H (38-126) U/L Ammonia (<30) umol/L Thrombosis Risk Factor Assmnt - DVT/VTE Prophylaxis DVT/VTE Prophylaxis: Low risk, early ambulation encouraged - Choose All That Apply Any of the Below Risk Factors Present?: Yes Each Factor Represents 1 point: Abnormal pulmonary function (COPD), Obesity (BMI >25) Other Risk Factors: Yes Each Risk Factor Represents 2 Points: Age 61-74 years Other congenital or acquired thrombophilia - If yes, enter type in comment: No Thrombosis Risk Factor Assessment Total Risk Factor Score: 4 Thrombosis Risk Factor Assessment Level: Moderate Risk Assessment and Plan (1) Hepatic encephalopathy Current Visit: Yes Status: Acute Code(s): K72.90 - HEPATIC FAILURE, UNSPECIFIED WITHOUT COMA SNOMED Code(s): 41193772 (2) Renal failure Current Visit: Yes Status: Acute Code(s): N19 - UNSPECIFIED KIDNEY FAILURE SNOMED Code(s): 74131591 (3) Acute exacerbation of chronic obstructive airways disease Current Visit: No Status: Acute Code(s): J44.1 - CHRONIC OBSTRUCTIVE PULMONARY DISEASE W (ACUTE) EXACERBATION SNOMED Code(s): 757947641 (4) Acute on chronic renal failure Current Visit: No Status: Acute Code(s): N17.9 - ACUTE KIDNEY FAILURE, UNSPECIFIED; N18.9 - CHRONIC KIDNEY DISEASE, UNSPECIFIED SNOMED Code(s): 487536429 (5) Altered mental status Current Visit: No Status: Acute Code(s): R41.82 - ALTERED MENTAL STATUS, UNSPECIFIED SNOMED Code(s): 484745976 (6) COPD (chronic obstructive pulmonary disease) Current Visit: No Status: Acute Code(s): J44.9 - CHRONIC OBSTRUCTIVE PULMONARY DISEASE, UNSPECIFIED SNOMED Code(s): 49177211 (7) Chronic renal disease, stage 4, severely decreased glomerular filtration rate (GFR) between 15-29 mL/min/1.73 square meter Current Visit: No Status: Acute Code(s): N18.4 - CHRONIC KIDNEY DISEASE, STAGE 4 (SEVERE) SNOMED Code(s): 826383106 (8) Delirium due to general medical condition Current Visit: No Status: Acute Code(s): F05 - DELIRIUM DUE TO KNOWN PHYSIOLOGICAL CONDITION SNOMED Code(s): 6781094 (9) Elevated alkaline phosphatase level Current Visit: No Status: Acute Code(s): R74.8 - ABNORMAL LEVELS OF OTHER SERUM ENZYMES SNOMED Code(s): 437901879 (10) Essential (primary) hypertension Current Visit: No Status: Acute Code(s): I10 - ESSENTIAL (PRIMARY) HYPERTENSION SNOMED Code(s): 83322523 (11) Hyperammonemia Current Visit: No Status: Acute Code(s): E72.20 - DISORDER OF UREA CYCLE METABOLISM, UNSPECIFIED SNOMED Code(s): 2256865 Plan: Admitted to the hospital Correct ammonia level with lactulose Consult nephrology Consult GI regarding hepatic encephalopathy Consult neurology for ataxia once encephalopathy cleared Consult social work for possible placement Time with Patient: Greater than 30
[2019-03-08 10:57] LABS: Bilirubin, Delta 0.2 mg/dL (0.0-0.2)
--- NOTE | 2019-03-08 10:58 | P.NPCON ---
History of Present Illness - Reason for Consult acute renal failure, chronic renal failure - History of Present Illness Reason for consultation: Acute kidney injury on chronic kidney disease History of present illness: Patient is a 63-year-old female seen in renal consultation for acute kidney injury on chronic kidney disease. Patient has chronic kidney disease stage IV secondary to diabetic kidney disease with baseline creatinine in the range of 2.5-3. Creatinine was 2.93 on admission and is down to 3.41 today. She is currently maintained on normal saline at 75 mL an hour. Denies chest pain or shortness of breath. Good urine output. No hematuria or dysuria. Patient presented to the hospital due to confusion. Apparently she wasn't taking her medications as prescribed. Patient doesn't remember falling. She does admit to a bruise on her right arm. Hemodynamically she stable. No vomiting. Does admit to loose bowel movements. Denies use of nonsteroidals. Blood sugars are controlled. Vital signs are stable. General: The patient appeared well nourished and normally developed. HEENT: Head exam is unremarkable. Neck is without jugular venous distension. LUNGS: Lungs are clear to auscultation and percussion. Breath sounds decreased. HEART: Rate and Rhythm are regular. First and second heart sounds normal. No murmurs, rubs or gallops. ABDOMEN: Abdominal exam reveals normal bowel sounds. Non-tender and non- distended. No evidence of peritonitis. EXTREMITITES: No clubbing, cyanosis, or edema. Past Medical History Past Medical History: COPD, Diabetes Mellitus, Hyperlipidemia, Hypertension, Seizure Disorder Additional Past Medical History / Comment(s): elevated ammonia, last Seizure >10 years History of Any Multi-Drug Resistant Organisms: None Reported Past Surgical History: Hysterectomy Additional Past Surgical History / Comment(s): ESWL Past Anesthesia/Blood Transfusion Reactions: No Reported Reaction Past Psychological History: Anxiety, Bipolar, Depression Additional Psychological History / Comment(s): mother recently Smoking Status: Former smoker Past Alcohol Use History: None Reported Additional Past Alcohol Use History / Comment(s): pt. states she was a 2 pack a day smoker for many years and quit in 2016 Past Drug Use History: Marijuana Additional Drug Use History / Comment(s): pt. states she occassionally smokes marijuana - Past Family History Mother Family Medical History: Diabetes Mellitus, Hypertension Father Family Medical History: Hypertension Medications and Allergies Home Medications Medication Instructions Recorded Confirmed Type Phenytoin Sodium Extended 100 mg PO TID 11/29/15 03/07/19 History [Dilantin] Sertraline [Zoloft] 200 mg PO DAILY 11/29/15 03/07/19 History Folic Acid 1 mg PO DAILY 07/22/17 03/07/19 History QUEtiapine FUMARATE 150 mg PO HS@199907/22/17 03/07/19 History Gemfibrozil [Lopid] 1,200 mg PO HS 09/05/17 03/07/19 History Montelukast [Singulair] 10 mg PO HS #30 tab 12/26/17 03/07/19 Rx Sodium Bicarbonate Tab 1,300 mg PO BID #60 tab 02/23/18 03/07/19 Rx Calcitriol 0.5 mcg PO MOWEFR 07/20/18 03/07/19 History Omeprazole [PriLOSEC] 20 mg PO DAILY 07/20/18 03/07/19 History Primidone [Mysoline] 50 mg PO BID 07/20/18 03/07/19 History Ipratropium-Albuterol Nebulize 3 ml INHALATION RT-QID PRN 11/27/18 03/07/19 History [Duoneb 0.5 mg-3 mg/3 ml Soln] Budesonide-Formot 160-4.5 Mcg 2 puff INHALATION RT-BID 12/17/18 03/07/19 History [Symbicort 160-4.5 Mcg Inhaler] Bisoprolol-Hctz 5-6.25 mg [Ziac 1 tab PO DAILY 03/07/19 03/07/19 History 5-6.25 MG] Furosemide [Lasix] 40 mg PO Q48D 03/07/19 03/07/19 History Metoprolol Succinate (ER) [Toprol 50 mg PO DAILY 03/07/19 03/07/19 History XL] Potassium Chloride 10 meq PO DAILY 03/07/19 03/07/19 History Allergies Allergy/AdvReac Type Severity Reaction Status Date / Time Penicillins Allergy Mild Swelling Verified 03/07/19 14:15 Physical Exam Vitals: Vital Signs Temp Pulse Pulse Resp BP BP Pulse Ox 03/08/19 04:40 98.1 F 89 16 143/83 100 03/07/19 21:30 98.2 F 93 22 152/86 96 03/07/19 20:20 99 03/07/19 18:36 97.4 F L 104 H 19 154/93 94 L 03/07/19 17:25 104 H 19 154/93 94 L 03/07/19 17:00 104 H 19 154/93 94 L 03/07/19 16:30 102 H 25 H 154/93 99 03/07/19 16:00 98 17 153/79 99 03/07/19 15:38 98 24 159/83 97 03/07/19 15:31 26 H 03/07/19 15:05 96 03/07/19 14:58 94 03/07/19 14:40 104 H 19 154/93 94 L 03/07/19 13:33 97.4 F L 96 20 147/97 97 Intake and Output 03/07/19 03/08/19 03/08/19 22:59 06:59 14:59 Intake Total 75 Balance 75 Intake: Amount of Fluid Infused ( 75 ml) Other: Voiding Method Bedside Commode Incontinent # Voids 2 4 1 # Bowel Movements 3 Results - Lab Results Most recent lab results Calcium 6.8 mg/dL (8.4-10.2) L 03/08/19 07:25 Phosphorus 6.3 mg/dL (2.5-4.5) H 03/08/19 07:25 Magnesium 1.7 mg/dL (1.6-2.3) 03/08/19 07:25 03/07/19 14:46 03/08/19 07:25 Assessment and Plan Plan: Assessment: 1. Acute kidney injury mostly prerenal secondary to diuresis. Improving with IV hydration. Creatinine 3.93 on admission and is down to 3.43 today. 2. Chronic kidney disease stage IV secondary to diabetic kidney disease with baseline creatinine in the range of 2.5-3. 3. Metabolic acidosis secondary to chronic kidney disease maintained on oral sodium bicarbonate. 4. Diabetes mellitus. 5. Chronic kidney disease mineral bone disease maintained on calcitriol. 6. Status post fall. 7. Hypocalcemia secondary to chronic kidney disease. 8. Hyperphosphatemia secondary to chronic kidney disease. 9. Hepatic encephalopathy maintained on lactulose. Plan: Maintain normal saline at 75 mL an hour. Increase dose of oral sodium bicarbonate. Add PhosLo with meals. Avoid nephrotoxins. Hold diuretics. Repeat electrolytes in the morning. Thank you for the consultation. I will continue to follow the patient with you during her hospital stay.
[2019-03-08] MEDS: CALCIUM ACETATE 667 MG CAP PO SCH ×2 (12:22→17:59)
[2019-03-08] MEDS: hydrALAZINE HCL 25 MG TAB PO SCH ×2 (14:06→21:11)
[2019-03-08] MEDS: IPRATROPIUM-ALBUTEROL 3 ML NEB INHALATION PRN (18:13)
[2019-03-08] MEDS: MONTELUKAST 10 MG TAB PO SCH (20:59)
[2019-03-08] MEDS: FENOFIBRATE 160 MG TAB PO SCH (20:59)
[2019-03-09] MEDS: METOPROLOL SUCCINATE (ER) 50 MG TAB.ER.24H PO SCH (08:05)
[2019-03-09] MEDS: SODIUM BICARBONATE TAB 650 MG TAB PO SCH ×3 (08:05→22:07)
[2019-03-09] MEDS: LACTULOSE 20 GM/30 ML CUP PO SCH ×4 (08:05→22:07)
[2019-03-09] MEDS: PANTOPRAZOLE 40 MG TABLET PO SCH (08:06)
[2019-03-09] MEDS: FOLIC ACID 1 MG TAB PO SCH (08:06)
[2019-03-09] MEDS: CALCIUM ACETATE 667 MG CAP PO SCH ×3 (08:06→16:33)
[2019-03-09] MEDS: PRIMIDONE 50 MG TAB PO SCH ×2 (08:06→22:06)
[2019-03-09] MEDS: hydrALAZINE HCL 25 MG TAB PO SCH ×2 (08:06→22:07)
[2019-03-09] MEDS: SERTRALINE 50 MG TAB PO SCH (08:06)
[2019-03-09] MEDS: ACETAMINOPHEN TAB 325 MG TAB PO PRN ×3 (08:09→22:29)
[2019-03-09] MEDS: CALCITRIOL 0.25 MCG CAP PO SCH (08:09)
[2019-03-09] MEDS: PHENYTOIN SODIUM EXTENDED 100 MG CAP PO SCH ×3 (08:09→22:07)
[2019-03-09 08:18] LABS: Calcium 7.6 mg/dL (8.4-10.2); Magnesium 1.5 mg/dL (1.6-2.3); Potassium 4.2 mmol/L (3.5-5.1)
[2019-03-09] MEDS: SYMBICORT 160-4.5 MCG INHALER INHALATION SCH ×2 (10:07→21:31)
[2019-03-09 10:40] LABS: HCT 30.4 % (34.0-46.0); HGB 9.2 gm/dL (11.4-16.0); Hypochromasia Marked; MCH 33.1 pg (25.0-35.0); MCHC 30.3 g/dL (31.0-37.0); Macrocytosis Marked; Mean Platelet Volume 7.1; Platelet Count 227 k/uL (150-450); Poikilocytosis Slight; RBC 2.79 m/uL (3.80-5.40); RDW 15.3 % (11.5-15.5); WBC 6.8 k/uL (3.8-10.6)
[2019-03-09 10:43] LABS: MCV 109.1 fL (80.0-100.0)
[2019-03-09] MEDS: SODIUM CHLORIDE 0.9% 1,000 ML IV SCH (11:13)
--- NOTE | 2019-03-09 13:58 | PN ---
PROGRESS NOTE Patient is seen for followup for acute kidney injury. Her renal function has been improving. Creatinine is down from 3.9 to 2.7. Patient has been voiding. She has been incontinent. Diarrhea seems to have improved. Currently patient is maintained on IV fluids at 75 mL an hour. PHYSICAL EXAMINATION: On examination, blood pressure was 149/90, heart rate 90 per minute, she is afebrile. Examination of the heart S1, S2. Examination of the lungs, bilateral breath sounds are heard. Decreased breath sounds at the bases. Abdomen is soft, nontender. Examination of the lower extremities shows no significant edema. 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 LABS: Show sodium 143, potassium 4.2, chloride 118, CO2 is 13, BUN 46, creatinine 2.7, hemoglobin 9.2 g/dL. ASSESSMENT: 1. Acute kidney injury, prerenal, currently improving with IV fluids. 2. Chronic kidney disease stage IV, secondary to diabetic kidney disease, baseline creatinine 2.5 to 3 mg/dL. 3. Chronic kidney disease mineral bone disorder, maintained on calcitriol. 4. Status post fall. 5. Metabolic acidosis maintained on sodium bicarb, acidosis is worse. I will switch the IV fluids to IV bicarb. 6. Hepatic encephalopathy seems to have improved. Patient is maintained on lactulose. PLAN: Continue with IV fluids. Switch IV fluids to IV bicarb. May continue with oral bicarb as well and repeat labs in a.m. MMODL / PRISCAN: [id number] /
[2019-03-09] MEDS: DEXTROSE 5% IN WATER 1,000 ML with SODIUM BICARB (1 MEQ/ML) 150 ML IV SCH ×2 (15:03→22:30)
--- NOTE | 2019-03-09 16:40 | CONS ---
CONSULTATION DATE OF SERVICE: March 09, 2019. REQUESTING PHYSICIAN: Dr. Mari. REASON FOR CONSULTATION: Altered mental status and hyperammonemia. HISTORY OF PRESENT ILLNESS: The patient is a 63 -year-old pleasant white female who was brought to the emergency room by her family because of significant confusion. Apparently in the emergency room, she was noted to have a high ammonia level and she was started on oral lactulose and since then she has much improved. This morning, at the time of interview, patient has been quite sleepy, but she answers to questions appropriately. She denies any history of underlying chronic liver disease. She does have diabetes mellitus diagnosed about 10 years ago. No prior history of chronic hepatitis, alcohol abuse, or hepatitis in the past. On routine labs, she was noted to have normal LFTs. PAST MEDICAL HISTORY: Significant for COPD, diabetes mellitus, hypertension, hyperlipidemia, seizure disorder. PAST SURGICAL HISTORY: Hysterectomy. MEDICATIONS: At home include Phenytoin, Zoloft, folic acid, Lopid, Singulair, sodium bicarb, calcitriol, Prilosec, Mysoline, DuoNeb, Symbicort, Ziac, Lasix, metoprolol, and potassium chloride. ALLERGIES: PENICILLIN. SOCIAL HISTORY: No smoking. No alcohol use. FAMILY HISTORY: Mother has diabetes mellitus and hypertension. Father had hypertension. REVIEW OF SYSTEMS: CARDIOPULMONARY: She denies any chest pain, shortness of breath. GENITOURINARY: No dysuria or hematuria. MUSCULOSKELETAL unremarkable. SKIN unremarkable. ENDOCRINE unremarkable. NEUROLOGY some confusion. ENT/vision unremarkable. CONSTITUTIONAL: No recent weight loss. No fever, chills, night sweats. MUSCULOSKELETAL: Chronic back pain. PHYSICAL EXAMINATION: She appears quite sleepy, but easily arousable and communicative. VITAL SIGNS: Stable. Blood pressure is 160/104, pulse is 79, temperature 98.5. HEENT examination unremarkable. Conjunctivae pink. Sclerae anicteric. Oral cavity no lesions. NECK: No JVD or lymph node enlargement. CHEST was clear to auscultation. HEART: Regular rate and rhythm. ABDOMEN was obese. Bowel sounds are positive. It was nontender, nondistended. EXTREMITIES: No pedal edema. SKIN no rashes. NEURO she is alert, oriented to name but not to place and time. LABS: At the time of admission to the hospital: WBC 5.6, hemoglobin 9.4, platelets 227. ALT and AST at 22 and 14 respectively, alkaline phosphatase 199, T-bilirubin is normal, BUN is 60, creatinine 3.93. Today, BUN is down to 46 and creatinine is 2.77. Ammonia level was 54, went up to 175 yesterday and today is down to 63. IMPRESSION: 1. Altered mental status and hyperammonemia, most likely related to chronic underlying liver disease. The patient does not have any history of chronic liver disease as mentioned earlier. The patient has been started on lactulose 30 mL 3 times daily and had approximately had about 4 bowel movements and her ammonia level is improving and her mentation also has significantly improved since admission to the hospital. 2. Chronic kidney disease for which nephrology following the patient closely. 3. Longstanding history of diabetes mellitus, hypertension, which could have caused the underlying probable fatty liver disease that progressed to chronic liver disease and this will be investigated. RECOMMENDATIONS: 1. Obtain ultrasound of the liver. 2. Low-salt diet. 3. Continue with oral lactulose and titrated so that she has 3-4 bowel movements daily. 4. Follow ammonia level closely. 5. We will initiate workup for chronic liver disease during this hospitalization. Thank you for this consultation. MMODL / IJN: [id number] /
--- NOTE | 2019-03-09 16:43 | P.PN ---
Subjective Progress Note Date: 03/09/19 Brie Lei is a 63-year-old female who presented to the hospital via the emergency room with significant confusion. Patient has been not been taking her medications appropriately, has not been taking lactulose does have a history of similar problems with associated with hyperammonemia. Patient does have known liver and kidney disease however it is not clear what type of liver disease she has AST and ALTs are relatively normal. No history of alcohol use. Patient does have chronic COPD from long years of cigarette smoking. In the past is been a daily smoker of marijuana. He is O2 dependent chronic obstructive lung disease and is often on by mouth steroids as well as long-acting inhaled corticosteroids and long-acting inhaled beta agonists. 03/09/2019 maintained on IV fluid hydration at 75 MLS an hour. Creatinine improving down to 2.7. Diarrhea improving. Using bedside commode. afebrile, normal WBC. Continues on lactulose, Ammonia level increased to 63. CO2 13, maintained on IV bicarb drip in addition to oral bicarb. Magnesium 1.5. Objective - Vital Signs Vital signs: Vital Signs Temp 98.5 F 03/09/19 13:45 Pulse 79 03/09/19 13:45 Resp 20 03/09/19 15:21 BP 183/85 03/09/19 13:45 Pulse Ox 95 03/09/19 13:45 Intake & Output 03/08/19 03/09/19 03/09/19 18:59 06:59 18:59 Intake Total 650 690 800 Balance 650 690 800 Intake: Intake, IV Titration 650 450 Amount Sodium Chloride 0.9% 1, 650 450 000 ml @ 75 mls/hr IV . [id number] [facility] Rx#:[id number] Oral 240 800 Other: Voiding Method Bedside Commode Bedside Commode Incontinent Incontinent # Voids 1 2 4 # Bowel Movements 2 4 - Exam General: [Patient awake, alert and oriented times 3. Patient in no acute distress. Mild confusion and forgetfulness at times.] HEENT: [PERRL. EOMI. No pharyngeal erythema or exudate.] Neck: [No adenopathy.] Cardiac: [Heart regular in rate and rhythm. No S3. No S4. No clicks, rubs. No murmur.] Lungs: Diminished breath sounds bilaterally Abdomen: Soft, nontender [No mass. No organomegaly. Bowel sounds presnt and normoactive in all 4 quadrants.] Extremes: [No edema no cyanosis no claudication normal pulses] : Normal female genitalia Musculoskeletal: [No joint erythema, edema or tenderness.] Skin: [No rash.] Neurologic: [No lateralizing deficits. CN II - XII grossly intact.] Lymphatic: [No adenopathy.] - Labs CBC & Chem 7: 03/09/19 07:27 03/09/19 07:27 Labs: Abnormal Lab Results - Last 24 Hours (Table) 03/09/19 03/09/19 03/09/19 Range/Units 07:27 07:27 07:27 RBC 2.79 L (3.80-5.40) m/uL Hgb 9.2 L (11.4-16.0) gm/dL Hct 30.4 L (34.0-46.0) % MCV 109.1 H D (80.0-100.0) fL MCHC 30.3 L (31.0-37.0) g/dL Macrocytosis Marked A Chloride 118 H (98-107) mmol/L Carbon Dioxide 13 L (22-30) mmol/L BUN 46 H (7-17) mg/dL Creatinine 2.77 H (0.52-1.04) mg/dL Glucose 111 H (74-99) mg/dL Calcium 7.6 L (8.4-10.2) mg/dL Magnesium 1.5 L (1.6-2.3) mg/dL Ammonia 63 H (<30) umol/L Assessment and Plan Assessment: (1) Hepatic encephalopathy, maintained on lactulose Current Visit: Yes Status: Acute Code(s): K72.90 - HEPATIC FAILURE, UNSPECIFIED WITHOUT COMA SNOMED Code(s): 82580026 (2) Acute on chronic renal failure, prerenal secondary to diuresing Current Visit: No Status: Acute Code(s): N17.9 - ACUTE KIDNEY FAILURE, UNSPECIFIED; N18.9 - CHRONIC KIDNEY DISEASE, UNSPECIFIED SNOMED Code(s): 440250831 (3) Acute exacerbation of chronic obstructive airways disease Current Visit: No Status: Acute Code(s): J44.1 - CHRONIC OBSTRUCTIVE PU LMONARY DISEASE W (ACUTE) EXACERBATION SNOMED Code(s): 227708028 (4) Renal failure, chronic stage IV secondary to diabetic kidney disease Current Visit: Yes Status: Acute Code(s): N19 - UNSPECIFIED KIDNEY FAILURE SNOMED Code(s): 02278641 (5) Altered mental status Current Visit: No Status: Acute Code(s): R41.82 - ALTERED MENTAL STATUS, UNSPECIFIED SNOMED Code(s): 506483108 (6) COPD (chronic obstructive pulmonary disease) Current Visit: No Status: Acute Code(s): J44.9 - CHRONIC OBSTRUCTIVE PULMONARY DISEASE, UNSPECIFIED SNOMED Code(s): 84243365 (7) Chronic renal disease, stage 4, severely decreased glomerular filtration rate (GFR) between 15-29 mL/min/1.73 square meter Current Visit: No Status: Acute Code(s): N18.4 - CHRONIC KIDNEY DISEASE, STAGE 4 (SEVERE) SNOMED Code(s): 657353449 (8) Delirium due to general medical condition Current Visit: No Status: Acute Code(s): F05 - DELIRIUM DUE TO KNOWN PHYSIOLOGICAL CONDITION SNOMED Code(s): 3717524 (9) Elevated alkaline phosphatase level Current Visit: No Status: Acute Code(s): R74.8 - ABNORMAL LEVELS OF OTHER SERUM ENZYMES SNOMED Code(s): 243026569 (10) Essential (primary) hypertension Current Visit: No Status: Acute Code(s): I10 - ESSENTIAL (PRIMARY) HYPERTENSION SNOMED Code(s): 85263628 (11) Hyperammonemia Current Visit: No Status: Acute Code(s): E72.20 - DISORDER OF UREA CYCLE METABOLISM, UNSPECIFIED SNOMED Code(s): 4794826 (12) metabolic acidosis secondary to his CKD, on both IV sodium bicarb drip and oral sodium bicarb (13) diabetes mellitus (14) hypocalcemia secondary to CKD (15) status post fall Plan: Continue on current medication regime , oral sodium bicarb ,monitoring and symptomatic treatment. Diuretics remain on hold. IV sodium bicarb drip initiated in addition to oral bicarb. Maintain lactulose with Close monitoring of ammonia levels. Avoid nephrotoxins.Close monitoring of renal function with repeat labs ordered for a.m. Further recommendations to follow. The impression and plan of care has been dictated as directed. : I performed a history and examination of this patient, discussed the same with the dictator. I agree with the dictator's note ,documented as a scribe. Any additional findings or plans will be noted.
[2019-03-09] MEDS: FENOFIBRATE 160 MG TAB PO SCH (22:06)
[2019-03-09] MEDS: MONTELUKAST 10 MG TAB PO SCH (22:06)
[2019-03-10 00:38] LABS: Iron Saturation 28.29 (12.00-45.00)
[2019-03-10 00:46] LABS: Ferritin 65.3 ng/mL (10.0-291.0)
[2019-03-10 01:36] LABS: Hepatitis B Surface Antigen Non-Reactive (Non-Reactive); Hepatitis C IgG Antibody Non-Reactive (Non-Reactive)
[2019-03-10] MEDS: IPRATROPIUM-ALBUTEROL 3 ML NEB INHALATION PRN (08:04)
[2019-03-10] MEDS: SYMBICORT 160-4.5 MCG INHALER INHALATION SCH ×2 (08:04→19:43)
[2019-03-10 08:06] LABS: Basophils # (A) 0.1 k/uL (0-0.2); Basophils % (A) 1 %; Eosinophils # (A) 0.2 k/uL (0-0.7); Eosinophils % (A) 3 %; HCT 29.7 % (34.0-46.0); HGB 9.6 gm/dL (11.4-16.0); Hypochromasia Moderate; Lymphocytes # (A) 1.1 k/uL (1.0-4.8); Lymphocytes % (A) 16 %; MCH 33.9 pg (25.0-35.0); MCHC 32.4 g/dL (31.0-37.0); MCV 104.5 fL (80.0-100.0); Macrocytosis Moderate; Mean Platelet Volume 7.1; Monocytes # (A) 0.5 k/uL (0-1.0); Monocytes % (A) 7 %; Neutrophils # (A) 5.1 k/uL (1.3-7.7); Neutrophils % (A) 71 %; Platelet Count 251 k/uL (150-450); Poikilocytosis Slight; RBC 2.85 m/uL (3.80-5.40); WBC 7.1 k/uL (3.8-10.6)
[2019-03-10 08:09] LABS: Albumin 3.8 g/dL (3.5-5.0); Calcium 7.3 mg/dL (8.4-10.2); Potassium 3.8 mmol/L (3.5-5.1); Total Bilirubin 0.4 mg/dL (0.2-1.3)
[2019-03-10] MEDS: PHENYTOIN SODIUM EXTENDED 100 MG CAP PO SCH ×3 (08:09→21:03)
[2019-03-10] MEDS: SODIUM BICARBONATE TAB 650 MG TAB PO SCH ×3 (08:09→21:03)
[2019-03-10] MEDS: METOPROLOL SUCCINATE (ER) 50 MG TAB.ER.24H PO SCH (08:10)
[2019-03-10] MEDS: PRIMIDONE 50 MG TAB PO SCH ×2 (08:10→21:03)
[2019-03-10] MEDS: LACTULOSE 20 GM/30 ML CUP PO SCH ×3 (08:10→21:03)
[2019-03-10] MEDS: FOLIC ACID 1 MG TAB PO SCH (08:10)
[2019-03-10] MEDS: SERTRALINE 50 MG TAB PO SCH (08:10)
[2019-03-10] MEDS: hydrALAZINE HCL 25 MG TAB PO SCH ×2 (08:10→21:03)
[2019-03-10] MEDS: PANTOPRAZOLE 40 MG TABLET PO SCH (08:10)
[2019-03-10] MEDS: CALCIUM ACETATE 667 MG CAP PO SCH ×3 (08:10→17:23)
[2019-03-10] MEDS: ACETAMINOPHEN TAB 325 MG TAB PO PRN ×3 (08:15→21:03)
[2019-03-10] MEDS: DEXTROSE 5% IN WATER 1,000 ML with SODIUM BICARB (1 MEQ/ML) 150 ML IV SCH (08:25)
--- NOTE | 2019-03-10 09:20 | US ---
EXAMINATION TYPE: US liver DATE OF EXAM: 03/10/2019 COMPARISON: CT abdomen pelvis dated 12/19/2018 CLINICAL HISTORY: elev ammonia, r/o chr liver disease. Obese patient with bowel gas severely limits e xam, h/o renal stones EXAM MEASUREMENTS: Liver Length: 19.9 cm Gallbladder Wall: 0.2 cm CBD: 0.5 cm Right Kidney: 9.7 x 4.9 x 6.3 cm Pancreas: limited views appear wnl Liver: very difficult to penetrate, heterogeneous, enlarged Gallbladder: wnl Evidence for sonographic Horowitz's sign: no CBD: wnl Right Kidney: 1.3cm inferior pole stone seen IMPRESSION: 1. Diffusely heterogenous hepatic echotexture relating to underlying hepatocellular disease however t here is no nodular contour or atrophy at this time to suggest cirrhotic morphology of the liver. Over all the liver is suboptimally viewed given patient body habitus. 2. Nonobstructing 1.3 cm right renal calculus.
[2019-03-10] MEDS: MAGNESIUM SULFATE-D5W PMX 1 GM in DEXTROSE/WATER 1 100ML.BAG IVPB SCH ×2 (10:58→14:57)
[2019-03-10 11:55] LABS: Ceruloplasmin 32.1 mg/dL (20.0-60.0)
--- NOTE | 2019-03-10 14:05 | P.PN ---
Subjective Progress Note Date: 03/10/19 Brie Lei is a 63-year-old female who presented to the hospital via the emergency room with significant confusion. Patient has been not been taking her medications appropriately, has not been taking lactulose does have a history of similar problems with associated with hyperammonemia. Patient does have known liver and kidney disease however it is not clear what type of liver disease she has AST and ALTs are relatively normal. No history of alcohol use. Patient does have chronic COPD from long years of cigarette smoking. In the past is been a daily smoker of marijuana. He is O2 dependent chronic obstructive lung disease and is often on by mouth steroids as well as long-acting inhaled corticosteroids and long-acting inhaled beta agonists. 03/09/2019 maintained on IV fluid hydration at 75 MLS an hour. Creatinine improving down to 2.7. Diarrhea improving. Using bedside commode. afebrile, normal WBC. Continues on lactulose, sensorium significantly improved, Ammonia level increased to 63. CO2 13, maintained on IV bicarb drip in addition to oral bicarb. Magnesium 1.5. 03/10/2019 Evaluated by GI with recommendations noted and appreciated. Just returning from having ultrasound of liver completed, results pending. Alk phos trending down to 151, creatinine improving proving down to 2.44. Maintained on lactulose, ammonia down to 39. Magnesium 1.4. Pleasantly confused, disoriented to year. Afebrile, normal WBC. Objective - Vital Signs Vital signs: Vital Signs Temp 98 F 03/10/19 05:00 Pulse 92 03/10/19 08:13 Resp 20 03/10/19 08:00 BP 173/83 03/10/19 05:00 Pulse Ox 100 03/10/19 05:00 Intake & Output 03/09/19 03/10/19 03/10/19 18:59 06:59 18:59 Intake Total 800 1100 Output Total 7 Balance 800 1093 Intake: Oral 800 1100 Output: Urine/Stool Mix 7 Other: Voiding Method Bedside Commode Bedside Commode Incontinent # Voids 4 7 # Bowel Movements 4 7 - Exam General: [Patient awake, alert and oriented times 2-3, disorientated to year. Patient in no acute distress. Mild confusion and forgetfulness at times.] HEENT: [PERRL. EOMI. No pharyngeal erythema or exudate.] Neck: [No adenopathy.] Cardiac: [Heart regular in rate and rhythm. No S3. No S4. No clicks, rubs. No murmur.] Lungs: Diminished breath sounds bilaterally Abdomen: Soft, obese, mild diffuse tenderness, [No mass. No organomegaly. Bowel sounds mildly hyperactive,] Extremes: [No edema no cyanosis no claudication normal pulses] Skin: [No rash.] Neurologic: [No lateralizing deficits. CN II - XII grossly intact.] - Labs CBC & Chem 7: 03/10/19 07:24 03/10/19 07:24 Labs: Abnormal Lab Results - Last 24 Hours (Table) 03/10/19 03/10/19 03/10/19 Range/Units 07:24 07:24 07:24 RBC 2.85 L (3.80-5.40) m/uL Hgb 9.6 L (11.4-16.0) gm/dL Hct 29.7 L (34.0-46.0) % MCV 104.5 H (80.0-100.0) fL RDW 16.0 H (11.5-15.5) % Chloride 110 H (98-107) mmol/L BUN 42 H (7-17) mg/dL Creatinine 2.44 H (0.52-1.04) mg/dL Glucose 108 H (74-99) mg/dL Calcium 7.3 L (8.4-10.2) mg/dL Magnesium (1.6-2.3) mg/dL Alkaline Phosphatase 151 H (38-126) U/L Ammonia 39 H (<30) umol/L 03/10/19 Range/Units 07:24 RBC (3.80-5.40) m/uL Hgb (11.4-16.0) gm/dL Hct (34.0-46.0) % MCV (80.0-100.0) fL RDW (11.5-15.5) % Chloride (98-107) mmol/L BUN (7-17) mg/dL Creatinine (0.52-1.04) mg/dL Glucose (74-99) mg/dL Calcium (8.4-10.2) mg/dL Magnesium 1.4 L (1.6-2.3) mg/dL Alkaline Phosphatase (38-126) U/L Ammonia (<30) umol/L Assessment and Plan Assessment: (1) Hepatic encephalopathy, maintained on lactulose Current Visit: Yes Status: Acute Code(s): K72.90 - HEPATIC FAILURE, UNSPECIFIED WITHOUT COMA SNOMED Code(s): 79606156 (2) Acute on chronic renal failure, prerenal secondary to diuresing Current Visit: No Status: Acute Code(s): N17.9 - ACUTE KIDNEY FAILURE, UNSPECIFIED; N18.9 - CHRONIC KIDNEY DISEASE, UNSPECIFIED SNOMED Code(s): 571929783 (3) Acute exacerbation of chronic obstructive airways disease Current Visit: No Status: Acute Code(s): J44.1 - CHRONIC OBSTRUCTIVE PULMONARY DISEASE W (ACUTE) EXACERBATION SNOMED Code(s): 333753833 (4) Renal failure, chronic stage IV secondary to diabetic kidney disease Current Visit: Yes Status: Acute Code(s): N19 - UNSPECIFIED KIDNEY FAILURE SNOMED Code(s): 90222405 (5) Altered mental status secondary to Hyperammonemia related to possible chronic liver disease Current Visit: No Status: Acute Code(s): R41.82 - ALTERED MENTAL STATUS, UNSPECIFIED SNOMED Code(s): 868386512 (6) COPD (chronic obstructive pulmonary disease) Current Visit: No Status: Acute Code(s): J44.9 - CHRONIC OBSTRUCTIVE PULMONARY DISEASE, UNSPECIFIED SNOMED Code(s): 06426807 (7) Chronic renal disease, stage 4, severely decreased glomerular filtration rate (GFR) between 15-29 mL/min/1.73 square meter Current Visit: No Status: Acute Code(s): N18.4 - CHRONIC KIDNEY DISEASE, STAGE 4 (SEVERE) SNOMED Code(s): 083322567 (8) Delirium due to general medical condition Current Visit: No Status: Acute Code(s): F05 - DELIRIUM DUE TO KNOWN PHYSIOLOGICAL CONDITION SNOMED Code(s): 9024733 (9) Elevated alkaline phosphatase level Current Visit: No Status: Acute Code(s): R74.8 - ABNORMAL LEVELS OF OTHER SERUM ENZYMES SNOMED Code(s): 553977387 (10) Essential (primary) hypertension Current Visit: No Status: Acute Code(s): I10 - ESSENTIAL (PRIMARY) HYPERTENSION SNOMED Code(s): 91533379 (11) Hyperammonemia Current Visit: No Status: Acute Code(s): E72.20 - DISORDER OF UREA CYCLE METABOLISM, UNSPECIFIED SNOMED Code(s): 3456968 (12) metabolic acidosis secondary to his CKD, on both IV sodium bicarb drip and oral sodium bicarb (13) diabetes mellitus (14) hypocalcemia secondary to CKD (15) status post fall (16) hypomagnesemia Plan: Continue on current medication regime , monitoring and symptomatic treatment. Liver ultrasound results pending. Electrolyte replacement as per n ephrology .Diuretics remain on hold. Maintained on IV sodium bicarb in addition to oral bicarb. Maintain lactulose-titrating to 3-4 bowel movements per day. Close monitoring of ammonia levels. Avoid nephrotoxins.Close monitoring of renal function with repeat labs ordered for a.m. Further recommendations to follow. The impression and plan of care has been dictated as directed. : I performed a history and examination of this patient, discussed the same with the dictator. I agree with the dictator's note ,documented as a scribe. Any additional findings or plans will be noted.
[2019-03-10] MEDS ORDERED: Magnesium Replacement Protocol 1 EACH MISC MISCELLANE PRN (15:20)
--- NOTE | 2019-03-10 16:01 | PN ---
PROGRESS NOTE Patient is seen for followup for acute kidney injury on top of chronic kidney disease. Renal function has been improving. Patient is maintained on IV bicarb for metabolic acidosis. She has been receiving IV fluids. She has had good urine output. She is voiding on own. PHYSICAL EXAMINATION: On examination, blood pressure was 173/83, heart rate 99 per minute, patient is afebrile. Examination of the heart S1, S2. Examination of the lungs, bilateral breath sounds are heard. Abdomen is soft, nontender. Examination of lower extremities shows no evidence of edema. 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 LABS SHOW: Sodium of 144, potassium 3.8, chloride 110, BUN 42, creatinine 2.4, hemoglobin 9.6 g/dL. Magnesium was 1.4. ASSESSMENT: 1. Acute kidney injury prerenal currently improving with IV hydration. Will change IV fluids back to normal saline as metabolic acidosis has improved. 2. Metabolic acidosis associated with gastrointestinal fluid loss, status post IV bicarb. 3. Encephalopathy, maintained on lactulose, mainly hepatic encephalopathy currently improved. 4. Chronic kidney disease stage IV, secondary to diabetic kidney disease baseline creatinine 2.5-3 mg/dL. PLAN: DC IV bicarb. Add half-normal saline at about 50 mL an hour. Continue to encourage to increase oral intake. MMODL / IJN: [id number] /
[2019-03-10] MEDS: SODIUM CHLORIDE 0.45% 1,000 ML IV SCH (16:19)
--- NOTE | 2019-03-10 17:47 | PN ---
PROGRESS NOTE DATE OF SERVICE: March 10, 2019 Patient is a 63-year-old pleasant white female admitted to hospital with altered mental status and was noted to have hyperammonemia. No history of chronic liver disease in the past. Presently being investigated for chronic liver disease and so far, workup has been negative. In the meantime, she was started on oral lactulose and has been having 5 to 6 loose watery bowel movements daily. Her mentation has significantly improved. She denies any complaints today other than diarrhea. PHYSICAL EXAMINATION: She appears comfortable, not in apparent distress. VITAL SIGNS: Stable. Blood pressure is 132/86, pulse 80 per minute and blood pressure is 142/78, temperature 97.9. HEENT examination unremarkable. Conjunctivae pink. Sclerae anicteric. Oral cavity no lesions. Chest was clear to auscultation. HEART: Regular rate and rhythm. ABDOMEN: Soft. Bowel sounds are positive. No organomegaly. EXTREMITIES: No pedal edema. SKIN no rashes. NEURO: She is more awake, oriented to name and place. LABS: WBC 7.1, hemoglobin 9.6, platelets 251. Ammonia is down to 39. AST and ALT are normal. Alkaline phosphatase is 151. Hepatitis B surface antigen negative. Hepatitis C antibody negative. Antinuclear antibodies negative. Antimitochondrial antibody negative. Iron studies are within normal limits. Alpha 1 antitrypsin and serum ceruloplasmin are within normal limits. IMPRESSION: 1. Hyperammonemia, on oral lactulose but gradually improving. Mental status are significantly improved. Ammonia is down to 39 today. 2. Mild elevation of alkaline phosphatase with normal serum transaminases. Patient did have right upper quadrant abdomen that showed diffusely heterogeneous hepatic echotexture consistent with underlying hepatocellular disease. Workup for chronic liver disease still in progress. 3. Chronic kidney disease. 4. Diabetes mellitus. RECOMMENDATION: 1. Decrease the lactulose dose so that she has only 3-4 soft bowel movements daily. 2. Await rest of the workup for chronic liver disease. 3. Repeat ammonia level in the morning. 4. Low-salt diet. 5. We will follow with you closely. Thank you for this consultation. MMODL / IJN: [id number] /
[2019-03-10] MEDS: MONTELUKAST 10 MG TAB PO SCH (21:03)
[2019-03-10] MEDS: FENOFIBRATE 160 MG TAB PO SCH (21:03)
[2019-03-10 22:36] LABS: Hemoglobin A1C 4.6 % (4.0-6.0)
[2019-03-11] MEDS ORDERED: MELATONIN 3 MG TABLET ONE
[2019-03-11] MEDS: CALCIUM ACETATE 667 MG CAP PO SCH ×3 (08:13→16:59)
[2019-03-11] MEDS: SERTRALINE 50 MG TAB PO SCH (08:13)
[2019-03-11] MEDS: PANTOPRAZOLE 40 MG TABLET PO SCH (08:14)
[2019-03-11] MEDS: PRIMIDONE 50 MG TAB PO SCH ×2 (08:14→21:08)
[2019-03-11] MEDS: CALCITRIOL 0.25 MCG CAP PO SCH (08:14)
[2019-03-11] MEDS: METOPROLOL SUCCINATE (ER) 50 MG TAB.ER.24H PO SCH (08:14)
[2019-03-11] MEDS: LACTULOSE 20 GM/30 ML CUP PO SCH ×3 (08:14→21:08)
[2019-03-11] MEDS: PHENYTOIN SODIUM EXTENDED 100 MG CAP PO SCH ×3 (08:14→21:11)
[2019-03-11] MEDS: hydrALAZINE HCL 25 MG TAB PO SCH (08:14)
[2019-03-11] MEDS: FOLIC ACID 1 MG TAB PO SCH (08:14)
[2019-03-11] MEDS: SODIUM BICARBONATE TAB 650 MG TAB PO SCH ×2 (08:14→21:08)
[2019-03-11 08:47] LABS: Basophils # (A) 0.1 k/uL (0-0.2); Basophils % (A) 1 %; Eosinophils # (A) 0.2 k/uL (0-0.7); Eosinophils % (A) 3 %; HCT 27.2 % (34.0-46.0); HGB 8.9 gm/dL (11.4-16.0); Hypochromasia Slight; Lymphocytes # (A) 0.9 k/uL (1.0-4.8); Lymphocytes % (A) 14 %; MCH 33.6 pg (25.0-35.0); MCHC 32.7 g/dL (31.0-37.0); MCV 102.9 fL (80.0-100.0); Macrocytosis Slight; Mean Platelet Volume 6.2; Monocytes # (A) 0.4 k/uL (0-1.0); Monocytes % (A) 6 %; Neutrophils # (A) 4.7 k/uL (1.3-7.7); Neutrophils % (A) 75 %; Platelet Count 216 k/uL (150-450); Poikilocytosis Slight; RBC 2.64 m/uL (3.80-5.40); RDW 15.4 % (11.5-15.5); WBC 6.3 k/uL (3.8-10.6)
[2019-03-11 08:48] LABS: Albumin 3.2 g/dL (3.5-5.0); Calcium 6.9 mg/dL (8.4-10.2); Potassium 4.4 mmol/L (3.5-5.1); Total Bilirubin 0.3 mg/dL (0.2-1.3); Total Protein 5.9 g/dL (6.3-8.2)
[2019-03-11] MEDS: IPRATROPIUM-ALBUTEROL 3 ML NEB INHALATION PRN ×2 (08:58→20:34)
[2019-03-11] MEDS: SYMBICORT 160-4.5 MCG INHALER INHALATION SCH ×2 (08:58→20:34)
[2019-03-11] MEDS: SODIUM CHLORIDE 0.45% 1,000 ML IV SCH (09:48)
--- NOTE | 2019-03-11 11:17 | P.PN ---
Subjective Patient is seen in follow-up for acute kidney injury on chronic kidney disease. Renal function is fairly stable. Creatinine 2.57 today. Complains of generalized pain. No vomiting or diarrhea. Oral intake is fair. Vital signs are stable. General: The patient appeared well nourished and normally developed. HEENT: Head exam is unremarkable. Neck is without jugular venous distension. LUNGS: Lungs are clear to auscultation and percussion. Breath sounds decreased. HEART: Rate and Rhythm are regular. First and second heart sounds normal. No m urmurs, rubs or gallops. ABDOMEN: Abdominal exam reveals normal bowel sounds. Non-tender and non-di stended. No evidence of peritonitis. EXTREMITITES: No clubbing, cyanosis, or edema. Objective - Vital Signs Vital signs: Vital Signs Temp 98.2 F 03/10/19 19:12 Pulse 64 03/11/19 09:12 Resp 16 03/11/19 08:58 BP 165/90 03/10/19 19:12 Pulse Ox 99 03/11/19 08:58 Intake & Output 03/10/19 03/11/19 03/11/19 18:59 06:59 18:59 Intake Total 540 400 Balance 540 400 Intake: Intake, IV Titration 400 Amount Sodium Chloride 0.45% 1, 400 000 ml @ 50 mls/hr IV . Q20H [facility] Rx#:[id number] Oral 540 Other: Voiding Method Bedside Commode Bedside Commode # Voids 3 2 # Bowel Movements 2 2 - Labs CBC & Chem 7: 03/11/19 07:45 03/11/19 07:45 Labs: Abnormal Lab Results - Last 24 Hours (Table) 03/11/19 03/11/19 03/11/19 Range/Units 07:45 07:45 07:45 RBC 2.64 L (3.80-5.40) m/uL Hgb 8.9 L (11.4-16.0) gm/dL Hct 27.2 L (34.0-46.0) % MCV 102.9 H (80.0-100.0) fL Lymphocytes # 0.9 L (1.0-4.8) k/uL Chloride 108 H (98-107) mmol/L BUN 41 H (7-17) mg/dL Creatinine 2.57 H (0.52-1.04) mg/dL Glucose 108 H (74-99) mg/dL Calcium 6.9 L (8.4-10.2) mg/dL Alkaline Phosphatase 133 H (38-126) U/L Ammonia 34 H (<30) umol/L Total Protein 5.9 L (6.3-8.2) g/dL Albumin 3.2 L (3.5-5.0) g/dL Assessment and Plan Plan: Assessment: 1. Acute kidney injury mostly prerenal secondary to diuresis. Improved with IV hydration. Creatinine 3.93 on admission and is fairly stable at 2.57 today. 2. Chronic kidney disease stage IV secondary to diabetic kidney disease with baseline creatinine in the range of 2.5-3. 3. Metabolic acidosis secondary to chronic kidney disease maintained on oral sodium bicarbonate. Improved. 4. Diabetes mellitus. 5. Chronic kidney disease mineral bone disease maintained on calcitriol. 6. Status post fall. 7. Hypocalcemia secondary to chronic kidney disease. Corrected calcium near 7.6. On PhosLo and calcitriol. 8. Hyperphosphatemia secondary to chronic kidney disease maintained on PhosLo. 9. Hepatic encephalopathy maintained on lactulose. 10. Hypertension with chronic kidney disease. Blood pressure high. Plan: Maintain half-normal saline at 50 mL an hour. Decrease sodium bicarbonate to twice daily. Increase hydralazine to 50 mg 3 times daily. Repeat electrolytes in the morning.
[2019-03-11] MEDS: hydrALAZINE HCL 50 MG TAB PO SCH ×2 (15:41→21:08)
[2019-03-11 17:13] LABS: Glucose,Whole Blood 175 mg/dL (75-99)
--- NOTE | 2019-03-11 17:35 | PN ---
PROGRESS NOTE DATE OF SERVICE: March 11, 2019 Patient is a 63-year-old pleasant white female admitted to the hospital with altered mental status and was noted to have increased ammonia level and presently on lactulose and she is doing. She has been having 3-4 bowel movements daily. Ammonia level has significantly improved. She complains of some abdominal discomfort but denies any nausea, vomiting. She also complains of headaches. PHYSICAL EXAMINATION: She appears comfortable. No apparent distress. VITAL SIGNS: Stable. Blood pressure is 132/76, pulse rate 92, temperature 98.4. HEENT examination unremarkable. Conjunctivae pink. Sclerae anicteric. Oral cavity no lesions. NECK: No JVD or lymph node enlargement. CHEST: Clear to auscultation. HEART: Regular rate and rhythm. ABDOMEN: Soft, obese. Bowel sounds are positive. No organomegaly. EXTREMITIES: No pedal edema. SKIN no rashes. NEUROLOGIC: Alert and oriented x3. No focal deficits. LABS: From today WBC 6.3, hemoglobin 8.9, platelets are 216. BUN 41, creatinine 2.5. Hepatitis serologies for B and C negative. Antinuclear antibody, antibody negative. Alpha 1 antitrypsin, ceruloplasmin normal. Serum ammonia level is 34. AST and ALT are 22 and 16 respectively. T bilirubin and alkaline phosphatase are slightly elevated at 133. Bilirubin is normal. Iron saturation is 28%. IMPRESSION: 1. Hepatic encephalopathy with elevated ammonia level has improved with oral lactulose and mentation has normalized. 2. Normal serum transaminases. Questionable history of chronic underlying liver disease. Ultrasound of the liver showed heterogeneous liver suggestive of fatty infiltration of the liver. Chronic liver disease/cirrhosis cannot be excluded. All workup for chronic liver disease is negative. 3. Chronic kidney disease. Nephrology following the patient closely. RECOMMENDATIONS: 1. Continue with oral lactulose 30 mL 3 times daily and titrate it so that, she has 2- 3 bowel movements daily. 2. Discussed with the patient. All workup for chronic liver disease is negative and most likely we are dealing with fatty liver disease and probably has progressed to chronic liver disease and may have underlying cirrhosis, but liver disease appears to be well compensated. 3. Await rest of the labs. 4. We will follow with you closely. Thank you for this consultation. MMODL / IJN: [id number] /
[2019-03-11] MEDS ORDERED: CARBAMIDE PEROXIDE 6.5% DROPS 15 ML BTL BOTH EARS SCH (17:43)
--- NOTE | 2019-03-11 17:54 | P.PN ---
Subjective Progress Note Date: 03/11/19 Brie Lei is a 63-year-old female who presented to the hospital via the emergency room with significant confusion. Patient has been not been taking her medications appropriately, has not been taking lactulose does have a history of similar problems with associated with hyperammonemia. Patient does have known liver and kidney disease however it is not clear what type of liver disease she has AST and ALTs are relatively normal. No history of alcohol use. Patient does have chronic COPD from long years of cigarette smoking. In the past is been a daily smoker of marijuana. He is O2 dependent chronic obstructive lung disease and is often on by mouth steroids as well as long-acting inhaled corticosteroids and long-acting inhaled beta agonists. 03/09/2019 maintained on IV fluid hydration at 75 MLS an hour. Creatinine improving down to 2.7. Diarrhea improving. Using bedside commode. afebrile, normal WBC. Continues on lactulose, sensorium significantly improved, Ammonia level increased to 63. CO2 13, maintained on IV bicarb drip in addition to oral bicarb. Magnesium 1.5. 03/10/2019 Evaluated by GI with recommendations noted and appreciated. Just returning from having ultrasound of liver completed, results pending. Alk phos trending down to 151, creatinine improving proving down to 2.44. Maintained on lactulose, ammonia down to 39. Magnesium 1.4. Pleasantly confused, disoriented to year. Afebrile, normal WBC. 03/11/2019 continues on IV hydration of half-normal saline, oral sodium bicarb, CO2 27. Sitting up at bedside, complaining of headache, right ear pain, chronic back pain, generalized pain. Right ear assessed with otoscope revealing significant amount of wax. Oral intake improving, denies nausea vomiting or diarrhea. Blood sugars controlled. Creatinine trending up, 2.57. Maintained on lactulose with pneumonia continued to trending down to 34. Alk phos trending down to 133. Magnesium supplemented yesterday, up to 2.0. Liver ultrasound completed yesterday reporting suboptimal viewing with underlying hepatocellular disease without nodular contour. Hemoglobin 8.9, calcium 6.9. Systolic blood pressures in the high 140s, hydralazine increased. Objective - Vital Signs Vital signs: Vital Signs Temp 98.4 F 03/11/19 13:57 Pulse 92 03/11/19 13:57 Resp 20 03/11/19 13:57 BP 148/76 03/11/19 13:57 Pulse Ox 99 03/11/19 13:57 Intake & Output 03/10/19 03/11/19 03/11/19 18:59 06:59 18:59 Intake Total 540 400 Balance 540 400 Intake: Intake, IV Titration 400 Amount Sodium Chloride 0.45% 1, 400 000 ml @ 50 mls/hr IV . Q20H [facility] Rx#:[id number] Oral 540 Other: Voiding Method Bedside Commode Bedside Commode # Voids 3 2 2 # Bowel Movements 2 2 - Exam General: [Patient awake, alert and oriented times 2-3, no acute distress, sitting up at side of bed HEENT: [PERRL. EOMI. No pharyngeal erythema or exudate. Right ear with wax buildup] Neck: [No adenopathy.] Cardiac: [Heart regular in rate and rhythm. No S3. No S4. No clicks, rubs. No murmur.] Lungs: Diminished breath sounds bilaterally Abdomen: Soft, obese, mild diffuse tenderness, [No mass. No organomegaly. Bowel sounds mildly hyperactive,] Extremes: [No edema no cyanosis no claudication normal pulses] Skin: [No rash.] Neurologic: [No lateralizing deficits. CN II - XII grossly intact.] - Labs CBC & Chem 7: 03/11/19 07:45 03/11/19 07:45 Labs: Abnormal Lab Results - Last 24 Hours (Table) 03/11/19 03/11/19 03/11/19 Range/Units 07:45 07:45 07:45 RBC 2.64 L (3.80-5.40) m/uL Hgb 8.9 L (11.4-16.0) gm/dL Hct 27.2 L (34.0-46.0) % MCV 102.9 H (80.0-100.0) fL Lymphocytes # 0.9 L (1.0-4.8) k/uL Chloride 108 H (98-107) mmol/L BUN 41 H (7-17) mg/dL Creatinine 2.57 H (0.52-1.04) mg/dL Glucose 108 H (74-99) mg/dL POC Glucose (mg/dL) (75-99) mg/dL Calcium 6.9 L (8.4-10.2) mg/dL Alkaline Phosphatase 133 H (38-126) U/L Ammonia 34 H (<30) umol/L Total Protein 5.9 L (6.3-8.2) g/dL Albumin 3.2 L (3.5-5.0) g/dL 03/11/19 Range/Units 17:12 RBC (3.80-5.40) m/uL Hgb (11.4-16.0) gm/dL Hct (34.0-46.0) % MCV (80.0-100.0) fL Lymphocytes # (1.0-4.8) k/uL Chloride (98-107) mmol/L BUN (7-17) mg/dL Creatinine (0.52-1.04) mg/dL Glucose (74-99) mg/dL POC Glucose (mg/dL) 175 H (75-99) mg/dL Calcium (8.4-10.2) mg/dL Alkaline Phosphatase (38-126) U/L Ammonia (<30) umol/L Total Protein (6.3-8.2) g/dL Albumin (3.5-5.0) g/dL Assessment and Plan Assessment: (1) Hepatic encephalopathy, maintained on lactulose Current Visit: Yes Status: Acute Code(s): K72.90 - HEPATIC FAILURE, UNSPECIFIED WITHOUT COMA SNOMED Code(s): 06078890 (2) Acute on chronic renal failure, prerenal secondary to diuresing Current Visit: No Status: Acute Code(s): N17.9 - ACUTE KIDNEY FAILURE, UNSPECIFIED; N18.9 - CHRONIC KIDNEY DISEASE, UNSPECIFIED SNOMED Code(s): 751758954 (3) Acute exacerbation of chronic obstructive airways disease Current Visit: No Status: Acute Code(s): J44.1 - CHRONIC OBSTRUCTIVE PULMONARY DISEASE W (ACUTE) EXACERBATION SNOMED Code(s): 646798286 (4) Renal failure, chronic stage IV secondary to diabetic kidney disease Current Visit: Yes Status: Acute Code(s): N19 - UNSPECIFIED KIDNEY FAILURE SNOMED Code(s): 43807684 (5) Altered mental status secondary to Hyperammonemia related to possible chronic liver disease Current Visit: No Status: Acute Code(s): R41.82 - ALTERED MENTAL STATUS, UNSPECIFIED SNOMED Code(s): 338004250 (6) COPD (chronic obstructive pulmonary disease) Current Visit: No Status: Acute Code(s): J44.9 - CHRONIC OBSTRUCTIVE PULMONARY DISEASE, UNSPECIFIED SNOMED Code(s): 89188434 (7) Chronic renal disease, stage 4, severely decreased glomerular filtration rate (GFR) between 15-29 mL/min/1.73 square meter Current Visit: No Status: Acute Code(s): N18.4 - CHRONIC KIDNEY DISEASE, STAGE 4 (SEVERE) SNOMED Code(s): 999739041 (8) Delirium due to general medical condition Current Visit: No Status: Acute Code(s): F05 - DELIRIUM DUE TO KNOWN PHYSIOLOGICAL CONDITION SNOMED Code(s): 7064075 (9) Elevated alkaline phosphatase level Current Visit: No Status: Acute Code(s): R74.8 - ABNORMAL LEVELS OF OTHER SERUM ENZYMES SNOMED Code(s): 606338154 (10) Essential (primary) hypertension Current Visit: No Status: Acute Code(s): I10 - ESSENTIAL (PRIMARY) HYPERTENSION SNOMED Code(s): 78416323 (11) Hyperammonemia Current Visit: No Status: Acute Code(s): E72.20 - DISORDER OF UREA CYCLE METABOLISM, UNSPECIFIED SNOMED Code(s): 3588975 (12) metabolic acidosis secondary to his CKD, status post IV sodium bicarb drip. on oral sodium bicarb (13) diabetes mellitus (14) hypocalcemia secondary to CKD (15) status post fall (16) hypomagnesemia, supplemented, now within normal limits Plan: Continue on current medication regime , lactulose, monitoring and symptomatic treatment. PT/OT consulted with potential subacute rehab at discharge. [place] ordered for pain control. Debrox otic drops ordered. Close monitoring of ammonia levels. renal function with repeat labs ordered for a.m. patient advised to be up in chair 3 times per day.discharge planning in progress for tomorrow. The impression and plan of care has been dictated as directed. : I performed a history and examination of this patient, discussed the same with the dictator. I agree with the dictator's note ,documented as a scribe. Any additional findings or plans will be noted.
[2019-03-11] MEDS: HYDROcodone/APAP 5-325MG 1 EACH TAB PO PRN (18:15)
[2019-03-11] MEDS: FENOFIBRATE 160 MG TAB PO SCH (21:08)
[2019-03-11] MEDS: MONTELUKAST 10 MG TAB PO SCH (21:09)
[2019-03-11] MEDS: ACETAMINOPHEN TAB 325 MG TAB PO PRN (21:09)
[2019-03-11] MEDS: CARBAMIDE PEROXIDE 6.5% DROPS 15 ML BTL BOTH EARS SCH ×2 (21:15→21:16)
[2019-03-11] MEDS: MELATONIN 3 MG TABLET PO PRN (21:20)
[2019-03-12] MEDS: HYDROcodone/APAP 5-325MG 1 EACH TAB PO PRN ×2 (01:46→07:52)
[2019-03-12 07:05] VITALS: BP 156/72; RESP 18; TEMP 98.1
[2019-03-12] MEDS: CARBAMIDE PEROXIDE 6.5% DROPS 15 ML BTL BOTH EARS SCH (07:51)
[2019-03-12] MEDS: PRIMIDONE 50 MG TAB PO SCH (07:52)
[2019-03-12] MEDS: LACTULOSE 20 GM/30 ML CUP PO SCH (07:52)
[2019-03-12] MEDS: CALCIUM ACETATE 667 MG CAP PO SCH (07:52)
[2019-03-12] MEDS: PHENYTOIN SODIUM EXTENDED 100 MG CAP PO SCH (07:52)
[2019-03-12] MEDS: SODIUM BICARBONATE TAB 650 MG TAB PO SCH (07:52)
[2019-03-12] MEDS: PANTOPRAZOLE 40 MG TABLET PO SCH (07:53)
[2019-03-12] MEDS: hydrALAZINE HCL 50 MG TAB PO SCH (07:53)
[2019-03-12] MEDS: FOLIC ACID 1 MG TAB PO SCH (07:53)
[2019-03-12] MEDS: SERTRALINE 50 MG TAB PO SCH (07:53)
[2019-03-12] MEDS: METOPROLOL SUCCINATE (ER) 50 MG TAB.ER.24H PO SCH (07:53)
[2019-03-12] MEDS: SODIUM CHLORIDE 0.45% 1,000 ML IV SCH (07:54)
[2019-03-12 08:02] VITALS: PULSE 90
[2019-03-12] MEDS: SYMBICORT 160-4.5 MCG INHALER INHALATION SCH (08:35)
[2019-03-12 09:07] LABS: Albumin 3.8 g/dL (3.5-5.0); Calcium 7.6 mg/dL (8.4-10.2); Potassium 3.9 mmol/L (3.5-5.1); Total Bilirubin 0.3 mg/dL (0.2-1.3)
[2019-03-12] MEDS ORDERED: HYDROmorphone 0.5 MG/0.5 ML SYRINGE IVP STA (09:43)
--- NOTE | 2019-03-12 11:17 | XR ---
EXAMINATION TYPE: XR sacrum coccyx DATE OF EXAM: 03/12/2019 CLINICAL HISTORY: Fall with low back pain TECHNIQUE: A single AP view of the pelvis is obtained. COMPARISON: None. FINDINGS: There is no acute fracture/dislocation evident in the visualized portions of the pelvis. T he sacrum intraesophageal segments remain aligned. No suspicious osseous lesion. Facet arthropathy an d mild intervertebral disc space narrowing are seen at L5-S1. Visualized bowel is nondilated. IMPRESSION: There is no acute fracture or dislocation seen within the sacrum or coccyx.
--- NOTE | 2019-03-12 11:35 | CT ---
EXAMINATION TYPE: CT brain wo con DATE OF EXAM: 03/12/2019 COMPARISON: 12/03/2018 HISTORY: Headache CT DLP: 999.8 mGycm Automated exposure control for dose reduction was used. FINDINGS: There is dolichoectasia of the vertebrobasilar system. Moderate generalized degenerative change. Charlene ventricular and focal areas of abnormal signal the white matter are nonspecific but most typical kane te microvascular ischemia. Greater CSF spaces along the left cerebral convexity which could be relate d to asymmetric atrophy. Tiny chronic subdural hygroma or hematoma less likely etiology. Finding retr ospectively stable. Calvarium intact. No acute hemorrhage or mass effect. Correlate for previous righ t mastoidectomy. Intracranial atherosclerotic changes are noted. Partially empty sella turcica noted. No orbital mary ening. If there is concern for increased intracranial pressure correlate with MRI. Craniocervical dottie ction is maintained. IMPRESSION: 1. DEGENERATIVE AND NONSPECIFIC WHITE MATTER CHANGES MOST TYPICAL OF REMOTE MICROVASCULAR ISCHEMIA. N O ACUTE HEMORRHAGE. IF THERE IS CONCERN FOR ACUTE ISCHEMIA CORRELATE WITH MRI. 2. PARTIALLY EMPTY SELLA TURCICA. 3. RIGHT MASTOIDECTOMY.
--- NOTE | 2019-03-12 12:02 | P.DS ---
Providers Date of admission: 03/07/19 17:22 Expected date of discharge: 03/12/19 Attending physician: Adal Mari Consults: 03/07/19 17:22 Consult Physician Urgent Consulting Provider: Kaia Gunderson Consult Reason/Comments: Acute on chronic renal failure Do you want consulting provider notified?: Yes 03/08/19 10:37 Consult Physician Routine Consulting Provider: John Ni Consult Reason/Comments: Hepatic encephalopathy Do you want consulting provider notified?: Yes Primary care physician: [facility] Hospital Course: Final Diagnoses: (1) Hepatic encephalopathy, maintained on lactulose. Per GI chronic liver disease workup negative, probably fatty liver disease which may have progressed to chronic liver disease with possible underlying cirrhosis but liver appears well compensated. Current Visit: Yes Status: Acute Code(s): K72.90 - HEPATIC FAILURE, UNSPECIFIED WITHOUT COMA SNOMED Code(s): 51931993 (2) Acute on chronic renal failure, prerenal secondary to diuresing Current Visit: No Status: Acute Code(s): N17.9 - ACUTE KIDNEY FAILURE, UNSPECIFIED; N18.9 - CHRONIC KIDNEY DISEASE, UNSPECIFIED SNOMED Code(s): 241254915 (3) Acute exacerbation of chronic obstructive airways disease Current Visit: No Status: Acute Code(s): J44.1 - CHRONIC OBSTRUCTIVE PULMONARY DISEASE W (ACUTE) EXACERBATION SNOMED Code(s): 795313587 (4) Renal failure, chronic stage IV secondary to diabetic kidney disease Current Visit: Yes Status: Acute Code(s): N19 - UNSPECIFIED KIDNEY FAILURE SNOMED Code(s): 46528340 (5) Altered mental status secondary to Hyperammonemia related to possible chronic liver disease Current Visit: No Status: Acute Code(s): R41.82 - ALTERED MENTAL STATUS, UNSPECIFIED SNOMED Code(s): 865569642 (6) COPD (chronic obstructive pulmonary disease) Current Visit: No Status: Acute Code(s): J44.9 - CHRONIC OBSTRUCTIVE PULMONARY DISEASE, UNSPECIFIED SNOMED Code(s): 46660064 (7) Chronic renal disease, stage 4, severely decreased glomerular filtration rate (GFR) between 15-29 mL/min/1.73 square meter Current Visit: No Status: Acute Code(s): N18.4 - CHRONIC KIDNEY DISEASE, STAGE 4 (SEVERE) SNOMED Code(s): 550129301 (8) Delirium due to general medical condition Current Visit: No Status: Acute Code(s): F05 - DELIRIUM DUE TO KNOWN PHYSIOLOGICAL CONDITION SNOMED Code(s): 1407227 (9) Elevated alkaline phosphatase level Current Visit: No Status: Acute Code(s): R74.8 - ABNORMAL LEVELS OF OTHER SERUM ENZYMES SNOMED Code(s): 971961334 (10) Essential (primary) hypertension Current Visit: No Status: Acute Code(s): I10 - ESSENTIAL (PRIMARY) HYPERTENSION SNOMED Code(s): 48399669 (11) Hyperammonemia Current Visit: No Status: Acute Code(s): E72.20 - DISORDER OF UREA CYCLE METABOLISM, UNSPECIFIED SNOMED Code(s): 7217864 (12) metabolic acidosis secondary to his CKD, status post IV sodium bicarb drip. on oral sodium bicarb (13) diabetes mellitus (14) hypocalcemia secondary to CKD (15) status post fall (16) hypomagnesemia, supplemented, now within normal limits (17)S/P fall, Hospital course:Brie Lei is a 63-year-old female who presented to the hospital via the emergency room with significant confusion. Patient has been not been taking her medications appropriately, has not been taking lactulose does have a history of similar problems with associated with hyperammonemia. Patient does have known liver and kidney disease however it is not clear what type of liver disease she has AST and ALTs are relatively normal. No history of alcohol use. Patient does have chronic COPD from long years of cigarette smoking. In the past is been a daily smoker of marijuana. He is O2 dependent chronic obstructive lung disease and is often on by mouth steroids as well as long- acting inhaled corticosteroids and long-acting inhaled beta agonists. 03/09/2019 maintained on IV fluid hydration at 75 MLS an hour. Creatinine improving down to 2.7. Diarrhea improving. Using bedside commode. afebrile, normal WBC. Continues on lactulose, sensorium significantly improved, Ammonia level increased to 63. CO2 13, maintained on IV bicarb drip in addition to oral bicarb. Magnesium 1.5. 03/10/2019 Evaluated by GI with recommendations noted and appreciated. Just ret urning from having ultrasound of liver completed, results pending. Alk phos trending down to 151, creatinine improving proving down to 2.44. Maintained on lactulose, ammonia down to 39. Magnesium 1.4. Pleasantly confused, disoriented to year. Afebrile, normal WBC. 03/11/2019 continues on IV hydration of half-normal saline, oral sodium bicarb, CO2 27. Sitting up at bedside, complaining of headache, right ear pain, chronic back pain, generalized pain. Right ear assessed with otoscope revealing significant amount of wax. Oral intake improving, denies nausea vomiting or diarrhea. Blood sugars controlled. Creatinine trending up, 2.57. Maintained on lactulose with pneumonia continued to trending down to 34. Alk phos trending down to 133. Magnesium supplemented yesterday, up to 2.0. Liver ultrasound completed yesterday reporting suboptimal viewing with underlying hepatocellular disease without nodular contour. Hemoglobin 8.9, calcium 6.9. Systolic blood pressures in the high 140s, hydralazine increased. Status post fall at home .Sacrum and coccyx x-ray reporting no acute fracture or dislocation. Evaluated by PT, subacute rehab and rolling walker recommended; subacute rehab declined by both patient and family. Headache improving. Brain CT completed, final results pending. Patient will be discharged home in a stable condition with guarded prognosis pending brain CT results , clearance from nephrology with home care. Exam General: alert and oriented times 2-3, no acute distress Cardiac: [Heart regular in rate and rhythm. No S3. No S4. No clicks, rubs. No murmur.] Lungs: Diminished breath sounds bilaterally Abdomen: Soft, obese, mild diffuse tenderness, [No mass. No organomegaly. Positive Bowel sounds] Neurologic: [No focal deficits. The impression and plan of care has been dictated as directed. : I performed a history and examination of this patient, discussed the same with the dictator. I agree with the dictator's note ,documented as a scribe. Any additional findings or plans will be noted. Patient Condition at Discharge: Stable Plan - Discharge Summary Discharge Rx Participant: No New Discharge Prescriptions: New hydrALAZINE HCL [Apresoline] 50 mg PO TID #90 tab Lactulose [Cephulac] 30 gm PO TID #900 ml Carbamide Peroxide [Debrox Otic] 5 drops BOTH EARS BID ml Melatonin 3 mg PO HS PRN tablet PRN Reason: insomnia Calcium Acetate [PhosLo] 667 mg PO TID-W/MEALS #90 cap Acetaminophen Tab [Tylenol] 650 mg PO Q6HR PRN tab PRN Reason: Fever And/ Or Pain HYDROcodone/APAP 5-325MG [[place] 5-325] 1 each PO Q6HR PRN tab PRN Reason: Pain Continue Phenytoin Sodium Extended [Dilantin] 100 mg PO TID Folic Acid 1 mg PO DAILY Gemfibrozil [Lopid] 1,200 mg PO HS Montelukast [Singulair] 10 mg PO HS #30 tab Sodium Bicarbonate Tab 1,300 mg PO BID #60 tab Omeprazole [PriLOSEC] 20 mg PO DAILY Calcitriol 0.5 mcg PO MOWE Primidone [Mysoline] 50 mg PO BID Ipratropium-Albuterol Nebulize [Duoneb 0.5 mg-3 mg/3 ml Soln] 3 ml INHALATION RT-QID PRN PRN Reason: Shortness Of Breath Budesonide-Formot 160-4.5 Mcg [Symbicort 160-4.5 Mcg Inhaler] 2 puff INHALATION RT-BID Metoprolol Succinate (ER) [Toprol XL] 50 mg PO DAILY Changed Sertraline [Zoloft] 50 mg PO DAILY #0 Discontinued QUEtiapine FUMARATE 150 mg PO HS@2000 Potassium Chloride 10 meq PO DAILY Furosemide [Lasix] 40 mg PO Q48D Bisoprolol-Hctz 5-6.25 mg [Ziac 5-6.25 MG] 1 tab PO DAILY Discharge Medication List Phenytoin Sodium Extended [Dilantin] 100 mg PO TID 11/29/15 [History] Folic Acid 1 mg PO DAILY 07/22/17 [History] Gemfibrozil [Lopid] 1,200 mg PO HS 09/05/17 [History] Montelukast [Singulair] 10 mg PO HS #30 tab 12/26/17 [Rx] Sodium Bicarbonate Tab 1,300 mg PO BID #60 tab 02/23/18 [Rx] Calcitriol 0.5 mcg PO MOWEFR 07/20/18 [History] Omeprazole [PriLOSEC] 20 mg PO DAILY 07/20/18 [History] Primidone [Mysoline] 50 mg PO BID 07/20/18 [History] Ipratropium-Albuterol Nebulize [Duoneb 0.5 mg-3 mg/3 ml Soln] 3 ml INHALATION RT-QID PRN 11/27/18 [History] Budesonide-Formot 160-4.5 Mcg [Symbicort 160-4.5 Mcg Inhaler] 2 puff INHALATION RT-BID 12/17/18 [History] Metoprolol Succinate (ER) [Toprol XL] 50 mg PO DAILY 03/07/19 [History] Acetaminophen Tab [Tylenol] 650 mg PO Q6HR PRN tab 03/12/19 [Rx] Calcium Acetate [PhosLo] 667 mg PO TID-W/MEALS #90 cap 03/12/19 [Rx] Carbamide Peroxide [Debrox Otic] 5 drops BOTH EARS BID ml 03/12/19 [Rx] HYDROcodone/APAP 5-325MG [[place] 5-325] 1 each PO Q6HR PRN tab 03/12/19 [Rx] Lactulose [Cephulac] 30 gm PO TID #900 ml 03/12/19 [Rx] Melatonin 3 mg PO HS PRN tablet 03/12/19 [Rx] Sertraline [Zoloft] 50 mg PO DAILY #0 03/12/19 [Rx] hydrALAZINE HCL [Apresoline] 50 mg PO TID #90 tab 03/12/19 [Rx] Follow up Appointment(s)/Referral(s): Adal Mari Jr, DO [Primary Care Provider] - 03/16/19 11:00 am Harriet Kwok MD [STAFF PHYSICIAN] - 1 Week [facility], [NON-STAFF] - 1 Week Tavo Winchester DO [STAFF PHYSICIAN] - 1 Week Patient Instructions/Handouts: Type 2 Diabetes in Adults: New Diagnosis (DC) Activity/Diet/Wound Care/Special Instructions: Pending brain CT, pending nephrology's and GI clearance activity as tolerated renal diet as tolerated [facility]; nursing, PT Discharge Disposition: TRANSFER TO SNF/ECF
--- NOTE | 2019-03-12 19:46 | PN ---
PROGRESS NOTE The patient is seen for followup for acute kidney injury on top of chronic kidney disease. Currently she is lying in bed. Patient denies any significant complaints. She is maintained on gentle IV hydration. PHYSICAL EXAMINATION: This morning, blood pressure was 156/72, heart rate 53 per minute. She is afebrile. Examination of the heart S1, S2. Examination of the lungs, decreased breath sounds at bases. Abdomen is soft, nontender. Examination of lower extremities shows no significant edema. LABS: Show sodium 142, potassium 3.9, BUN 44, creatinine 2.75. ASSESSMENT: 1. Acute kidney injury mostly prerenal currently improved. 2. Chronic kidney disease, stage IV, secondary to diabetic kidney disease baseline creatinine 2.5-3. 3. Chronic kidney disease mineral bone disorder. 4. Hyperphosphatemia associated with chronic kidney disease, maintained on PhosLo. 5. Hepatic encephalopathy, currently on lactulose. PLAN: 1. Encourage increased oral intake. 2. Follow up as outpatient in about one week's time with repeat labs as outpatient if patient is discharged today. MMODL / IJN: [id number] /
== END 2019-03-12 14:23 | disposition home health service (06) | DRG 442 ==
LOC: EC 13:27 → 4MS4W 17:22
PROVIDERS: ADMIT Family Medicine; ATTEND Family Medicine
DX: K72.90 Hepatic failure, unspecified without coma (principal); E72.20 Disorder of urea cycle metabolism, unspecified; N17.9 Acute kidney failure, unspecified; N18.4 Chronic kidney disease, stage 4 (severe); E87.2 Acidosis; J44.1 Chronic obstructive pulmonary disease with (acute) exacerbation; F05 Delirium due to known physiological condition; E11.22 Type 2 diabetes mellitus with diabetic chronic kidney disease; Z99.81 Dependence on supplemental oxygen; I12.9 Hypertensive chronic kidney disease with stage 1 through stage 4 chronic kidney disease, or unspecified chronic kidney disease; F31.9 Bipolar disorder, unspecified; F41.9 Anxiety disorder, unspecified; Z91.14 Patient's other noncompliance with medication regimen; E83.51 Hypocalcemia; E83.39 Other disorders of phosphorus metabolism; R27.0 Ataxia, unspecified; R19.7 Diarrhea, unspecified; G40.909 Epilepsy, unspecified, not intractable, without status epilepticus; E78.5 Hyperlipidemia, unspecified; E83.42 Hypomagnesemia; N25.0 Renal osteodystrophy; D63.1 Anemia in chronic kidney disease; K76.0 Fatty (change of) liver, not elsewhere classified; T47.3X6A Underdosing of saline and osmotic laxatives, initial encounter; Y92.019 Unspecified place in single-family (private) house as the place of occurrence of the external cause; G89.29 Other chronic pain; H92.01 Otalgia, right ear; M54.9 Dorsalgia, unspecified; R51 Headache; K74.60 Unspecified cirrhosis of liver; Z79.51 Long term (current) use of inhaled steroids; Z79.899 Other long term (current) drug therapy; Z90.710 Acquired absence of both cervix and uterus; Z87.891 Personal history of nicotine dependence; Z63.4 Disappearance and death of family member; Z83.3 Family history of diabetes mellitus; Z82.49 Family history of ischemic heart disease and other diseases of the circulatory system; Z88.0 Allergy status to penicillin
CPT/HCPCS: 36415; 70450; 71046; 72220; 76705; 80048; 80053; 80069; 82103; 82140; 82248; 82330; 82390; 82728; 82977; 83036; 83516; 83540; 83550; 83735; 84484; 85025; 85027; 85610; 85730; 86038; 86803; 87340; 93005; 94640; 94760; 99285

== ENCOUNTER 2019-03-20 08:57 | Inpatient (IN) | payer OTHER ==
[2019-03-20] MEDS ORDERED: SODIUM CHLORIDE 0.9% 1,000 ML IV STA (09:30)
[2019-03-20] MEDS ORDERED: ONDANSETRON 4 MG/2 ML VIAL IVP STA (09:30)
--- NOTE | 2019-03-20 09:30 | ED ---
Weakness HPI <Enio Coyle - Last Filed: 03/20/19 12:31> - General Source: patient, EMS, RN notes reviewed, old records reviewed Mode of arrival: EMS Limitations: no limitations <Tayler Haile - Last Filed: 03/20/19 12:46> - General Chief complaint: Weakness Stated complaint: generalized weakness Time Seen by Provider: 03/20/19 09:06 - History of Present Illness Initial comments: Patient is a 64-year-old female, presents emergency department today for multiple complaints. She complains of generalized weakness, sore throat congestion. She also complains of some lower abdominal pain. Patient reports she was hospitalized for elevated ammonia levels. Patient reports that she has known history of liver and kidney disease. Patient has chronic dyspnea, and is always on 4 L of oxygen at home. (Tayler Haile) - Related Data Home Medications Medication Instructions Recorded Confirmed Phenytoin Sodium Extended 100 mg PO TID 11/29/15 03/20/19 [Dilantin] Folic Acid 1 mg PO DAILY 07/22/17 03/20/19 Gemfibrozil [Lopid] 1,200 mg PO HS 09/05/17 03/20/19 Calcitriol 0.5 mcg PO MOWEFR 07/20/18 03/20/19 Omeprazole [PriLOSEC] 20 mg PO DAILY 07/20/18 03/20/19 Primidone [Mysoline] 50 mg PO BID 07/20/18 03/20/19 Ipratropium-Albuterol Nebulize 3 ml INHALATION RT-QID PRN 11/27/18 03/20/19 [Duoneb 0.5 mg-3 mg/3 ml Soln] Budesonide-Formot 160-4.5 Mcg 2 puff INHALATION RT-BID 12/17/18 03/20/19 [Symbicort 160-4.5 Mcg Inhaler] Metoprolol Succinate (ER) [Toprol 50 mg PO DAILY 03/07/19 03/20/19 XL] HYDROcodone/APAP 5-325MG [[place] 1 tab PO Q6HR PRN 03/20/19 03/20/19 5-325] Melatonin 3 mg PO HS PRN 03/20/19 03/20/19 Previous Rx's Medication Instructions Recorded Montelukast [Singulair] 10 mg PO HS #30 tab 12/26/17 Sodium Bicarbonate Tab 1,300 mg PO BID #60 tab 02/23/18 Acetaminophen Tab [Tylenol] 650 mg PO Q6HR PRN tab 03/12/19 Calcium Acetate [PhosLo] 667 mg PO TID-W/MEALS #90 cap 03/12/19 Carbamide Peroxide [Debrox Otic] 5 drops BOTH EARS BID ml 03/12/19 Lactulose [Cephulac] 30 gm PO TID #900 ml 03/12/19 Sertraline [Zoloft] 50 mg PO DAILY #0 03/12/19 hydrALAZINE HCL [Apresoline] 50 mg PO TID #90 tab 03/12/19 Allergies Allergy/AdvReac Type Severity Reaction Status Date / Time Penicillins Allergy Mild Swelling Verified 03/20/19 10:24 Review of Systems ROS Other: All systems not noted in ROS Statement are negative. <Enio Coyle - Last Filed: 03/20/19 12:31> ROS Other: All systems not noted in ROS Statement are negative. <Tayler Haile - Last Filed: 03/20/19 12:46> ROS Statement: Those systems with pertinent positive or pertinent negative responses have been documented in the HPI. Past Medical History Past Medical History: COPD, Diabetes Mellitus, Hyperlipidemia, Hypertension, Seizure Disorder Additional Past Medical History / Comment(s): elevated ammonia, last Seizure >10 years History of Any Multi-Drug Resistant Organisms: None Reported Past Surgical History: Hysterectomy Additional Past Surgical History / Comment(s): ESWL Past Anesthesia/Blood Transfusion Reactions: No Reported Reaction Past Psychological History: Anxiety, Bipolar, Depression Smoking Status: Former smoker Past Alcohol Use History: None Reported Past Drug Use History: Marijuana - Past Family History Mother Family Medical History: Diabetes Mellitus, Hypertension Father Family Medical History: Hypertension <Tayler Haile - Last Filed: 03/20/19 12:46> General Exam Limitations: no limitations Head exam: Present: atraumatic, normocephalic, normal inspection Eye exam: Present: normal appearance, PERRL, EOMI. Absent: scleral icterus, conjunctival injection, periorbital swelling ENT exam: Present: normal exam, mucous membranes moist Neck exam: Present: normal inspection. Absent: tenderness, meningismus, lymphadenopathy Respiratory exam: Present: normal lung sounds bilaterally. Absent: respiratory distress, wheezes, rales, rhonchi, stridor Cardiovascular Exam: Present: regular rate, normal rhythm, normal heart sounds. Absent: systolic murmur, diastolic murmur, rubs, gallop, clicks GI/Abdominal exam: Present: soft Extremities exam: Present: normal inspection, full ROM, normal capillary refill. Absent: tenderness, pedal edema, joint swelling, calf tenderness Back exam: Present: normal inspection Neurological exam: Present: alert, oriented X3, CN II-XII intact Psychiatric exam: Present: normal affect, normal mood Skin exam: Present: warm, dry, intact, normal color. Absent: rash <Tayler Haile - Last Filed: 03/20/19 12:46> - General Exam Comments Initial Comments: Generally weak 64-year-old female. Unable ambulate to the bedside commode. Patient appears frail. (Tayler Haile) Course Vital Signs 03/20/19 03/20/19 08:58 11:22 Temperature 98 F Pulse Rate 92 96 Respiratory 22 20 Rate Blood Pressure 137/96 111/69 O2 Sat by Pulse 96 94 L Oximetry Medical Decision Making - Lab Data Result diagrams: 03/20/19 09:05 03/20/19 09:05 <Enio Coyle - Last Filed: 03/20/19 12:31> - Lab Data Result diagrams: 03/20/19 09:05 03/20/19 09:05 - Radiology Data Radiology results: report reviewed <Tayler Haile - Last Filed: 03/20/19 12:46> - Medical Decision Making Patient reevaluated by myself, Dr. Coyle. Patient updated on results and plan. Case was discussed in detail with Dr. Marie, covering for Dr. Levy, who will admit. He does request consult with GI and nephrology. (Enio Coyle) Patient is a 64-year-old female, she presents today for generalized weakness. Patient had IV fluids labwork obtained. Blood cell count 6.2. Hemoglobin is low however is stable from her last visits about 7.7. Patient's primary and acute kidney failure, BUN of 68, creatinine 5.5. Calcium of 6.1. Hospice of 7.7. Liver enzymes are within normal limits. She does have an elevated ammonia at 59. She has been taking her lactulose. Troponin is also elevated at 0.180. Likely related to renal failure Patient denies any specific chest pain at this time. Urine sample shows protein and 2+, chest x-ray shows evidence of patchy infiltrate could be developing pneumonia. She was started on Levaquin. Blood cultures were completed. I discussed case with Dr. Coyle. Patient will be admitted with consult to nephrology. (Tayler Haile) - Lab Data Lab Results 03/20/19 03/20/19 03/20/19 Range/Units 09:05 09:05 09:05 WBC 6.2 (3.8-10.6) k/uL RBC 2.34 L (3.80-5.40) m/uL Hgb 7.7 L (11.4-16.0) gm/dL Hct 24.8 L (34.0-46.0) % MCV 105.9 H (80.0-100.0) fL MCH 32.9 (25.0-35.0) pg MCHC 31.1 (31.0-37.0) g/dL RDW 16.1 H (11.5-15.5) % Plt Count 270 (150-450) k/uL Neutrophils % (Manual) 76 % Lymphocytes % (Manual) 13 % Monocytes % (Manual) 10 % Eosinophils % (Manual) 2 % Myelocytes % 1 % Neutrophils # (Manual) 4.71 (1.3-7.7) k/uL Lymphocytes # (Manual) 0.81 L (1.0-4.8) k/uL Monocytes # (Manual) 0.62 (0-1.0) k/uL Eosinophils # (Manual) 0.12 (0-0.7) k/uL Myelocytes # (Manual) 0.06 H (0) k/uL Nucleated RBCs 1 H (0-0) /100 WBC Manual Slide Review Performed Polychromasia Present Hypochromasia Marked Poikilocytosis Slight Anisocytosis Slight Macrocytosis Moderate PT (9.0-12.0) sec INR (<1.2) APTT (22.0-30.0) sec Sodium 141 (137-145) mmol/L Potassium 4.9 (3.5-5.1) mmol/L Chloride 108 H (98-107) mmol/L Carbon Dioxide 17 L (22-30) mmol/L Anion Gap 16 mmol/L BUN 68 H (7-17) mg/dL Creatinine 5.15 H (0.52-1.04) mg/dL Est GFR (CKD-EPI)AfAm 9 (>60 ml/min/1.73 sqM) Est GFR (CKD-EPI)NonAf 8 (>60 ml/min/1.73 sqM) Glucose 88 (74-99) mg/dL Plasma Lactic Acid Jd 0.7 (0.7-2.0) mmol/L Calcium 6.1 L* (8.4-10.2) mg/dL Phosphorus 7.7 H (2.5-4.5) mg/dL Magnesium 1.9 (1.6-2.3) mg/dL Total Bilirubin 0.4 (0.2-1.3) mg/dL AST 15 (14-36) U/L ALT 20 (9-52) U/L Alkaline Phosphatase 164 H (38-126) U/L Ammonia 59 H (<30) umol/L Troponin I (0.000-0.034) ng/mL Total Protein 6.8 (6.3-8.2) g/dL Albumin 3.8 (3.5-5.0) g/dL Urine Color Urine Appearance (Clear) Urine pH (5.0-8.0) Ur Specific [place] (1.001-1.035) Urine Protein (Negative) Urine Glucose (UA) (Negative) Urine Ketones (Negative) Urine Blood (Negative) Urine Nitrite (Negative) Urine Bilirubin (Negative) Urine Urobilinogen (<2.0) mg/dL Ur Leukocyte Esterase (Negative) Urine RBC (0-5) /hpf Urine WBC (0-5) /hpf Urine Mucus (None) /hpf 03/20/19 03/20/19 03/20/19 Range/Units 09:05 09:05 12:08 WBC (3.8-10.6) k/uL RBC (3.80-5.40) m/uL Hgb (11.4-16.0) gm/dL Hct (34.0-46.0) % MCV (80.0-100.0) fL MCH (25.0-35.0) pg MCHC (31.0-37.0) g/dL RDW (11.5-15.5) % Plt Count (150-450) k/uL Neutrophils % (Manual) % Lymphocytes % (Manual) % Monocytes % (Manual) % Eosinophils % (Manual) % Myelocytes % % Neutrophils # (Manual) (1.3-7.7) k/uL Lymphocytes # (Manual) (1.0-4.8) k/uL Monocytes # (Manual) (0-1.0) k/uL Eosinophils # (Manual) (0-0.7) k/uL Myelocytes # (Manual) (0) k/uL Nucleated RBCs (0-0) /100 WBC Manual Slide Review Polychromasia Hypochromasia Poikilocytosis Anisocytosis Macrocytosis PT 9.5 (9.0-12.0) sec INR 0.9 (<1.2) APTT 24.1 (22.0-30.0) sec Sodium (137-145) mmol/L Potassium (3.5-5.1) mmol/L Chloride (98-107) mmol/L Carbon Dioxide (22-30) mmol/L Anion Gap mmol/L BUN (7-17) mg/dL Creatinine (0.52-1.04) mg/dL Est GFR (CKD-EPI)AfAm (>60 ml/min/1.73 sqM) Est GFR (CKD-EPI)NonAf (>60 ml/min/1.73 sqM) Glucose (74-99) mg/dL Plasma Lactic Acid Jd (0.7-2.0) mmol/L Calcium (8.4-10.2) mg/dL Phosphorus (2.5-4.5) mg/dL Magnesium (1.6-2.3) mg/dL Total Bilirubin (0.2-1.3) mg/dL AST (14-36) U/L ALT (9-52) U/L Alkaline Phosphatase (38-126) U/L Ammonia (<30) umol/L Troponin I 0.180 H* (0.000-0.034) ng/mL Total Protein (6.3-8.2) g/dL Albumin (3.5-5.0) g/dL Urine Color Yellow Urine Appearance Clear (Clear) Urine pH 5.5 (5.0-8.0) Ur Specific [place] 1.017 (1.001-1.035) Urine Protein 2+ H (Negative) Urine Glucose (UA) Negative (Negative) Urine Ketones Negative (Negative) Urine Blood Negative (Negative) Urine Nitrite Negative (Negative) Urine Bilirubin Negative (Negative) Urine Urobilinogen <2.0 (<2.0) mg/dL Ur Leukocyte Esterase Negative (Negative) Urine RBC 1 (0-5) /hpf Urine WBC 2 (0-5) /hpf Urine Mucus Rare H (None) /hpf 03/20/19 09:33 EKG performed at 9:01 AM shows sinus rhythm, left bundle-branch block. Abnormal EKG. Ventricular 92 beats were minute. Was 178 ms. Frustration is 144 ms. QT QTc is 446/[address] Elevation. (Tayler Haile) - Radiology Data Overall nonobstructive bowel gas pattern. Chest x-ray shows underlying fibrotic changes noted. Increasing patchy density in the right lower lobe may reflect developing pneumonia. Correlate clinically. (Tayler Haile) Disposition <Enio Coyle - Last Filed: 03/20/19 12:31> Is patient prescribed a controlled substance at d/c from ED?: No Time of Disposition: 12:46 <Tayler Haile - Last Filed: 03/20/19 12:46> Clinical Impression: Pneumonia, Anemia, Hyperammonemia, Renal failure, Hypocalcemia, At risk for readmission to hospital Disposition: ADMITTED IP TO THIS HOSP Condition: Stable Referrals: Adal Mari Jr, [Primary Care Provider] - 1-2 days
[2019-03-20] MEDS ORDERED: MORPHINE SULFATE 4 MG/ML SYRINGE IVP STA (09:31)
[2019-03-20 10:00] LABS: Lactic Acid, Venous 0.7 mmol/L (0.7-2.0)
[2019-03-20 10:01] LABS: Albumin 3.8 g/dL (3.5-5.0); INR 0.9 (<1.2); Magnesium 1.9 mg/dL (1.6-2.3); Partial Thromboplastin Time 24.1 sec (22.0-30.0); Phosphorus 7.7 mg/dL (2.5-4.5); Potassium 4.9 mmol/L (3.5-5.1); Prothrombin Time 9.5 sec (9.0-12.0); Total Bilirubin 0.4 mg/dL (0.2-1.3); Total Protein 6.8 g/dL (6.3-8.2)
[2019-03-20 10:10] LABS: Calcium 6.1 mg/dL (8.4-10.2)
[2019-03-20 10:17] LABS: Anisocytosis Slight; HCT 24.8 % (34.0-46.0); HGB 7.7 gm/dL (11.4-16.0); Hypochromasia Marked; MCH 32.9 pg (25.0-35.0); MCHC 31.1 g/dL (31.0-37.0); MCV 105.9 fL (80.0-100.0); Macrocytosis Moderate; Platelet Count 270 k/uL (150-450); Poikilocytosis Slight; RBC 2.34 m/uL (3.80-5.40); RDW 16.1 % (11.5-15.5)
--- NOTE | 2019-03-20 10:25 | XR ---
EXAMINATION TYPE: XR chest 2V DATE OF EXAM: 03/20/2019 COMPARISON: 03/07/2019 HISTORY: Shortness of breath TECHNIQUE: Frontal and lateral views of the chest are obtained. FINDINGS: Scattered senescent parenchymal changes noted. Hyperinflation compatible with COPD. Underlying fibrot ic changes noted. Increasing patchy density right lower lobe may reflect developing pneumonia. Correl ate clinically. No evidence for infiltrate. No evidence for atelectasis. Heart size is stable. Mediastinal structures are stable and grossly unremarkable. No evidence for hilar prominence. Degenerative changes dorsal spine. IMPRESSION: 1. Underlying fibrotic changes noted. Increasing patchy density right lower lobe may reflect developi ng pneumonia. Correlate clinically.
--- NOTE | 2019-03-20 10:37 | XR ---
EXAMINATION TYPE: XR KUB DATE OF EXAM: 03/20/2019 COMPARISON: NONE HISTORY: Pain TECHNIQUE: Single supine KUB image of the abdomen is obtained FINDINGS: Small bowel demonstrates no evidence for dilatation or air fluid levels. Gas and fecal material is seen in non-distended colon. No convincing evidence for pneumoperitoneum. No unusual calcifications. The lung bases are clear. The osseous structures are intact. IMPRESSION: 1. Overall nonobstructive bowel gas pattern.
[2019-03-20 10:47] LABS: Eosinophils # (M) 0.12 k/uL (0-0.7); Lymphocytes # (M) 0.81 k/uL (1.0-4.8); Monocytes # (M) 0.62 k/uL (0-1.0); Myelocytes # (M) 0.06 k/uL (0); Myelocytes % 1 %; Neutrophils # (M) 4.71 k/uL (1.3-7.7); Neutrophils % (M) 76 %; Nucleated Red Blood Cells 1 /100 WBC (0-0); Total Cells Counted 200; WBC 6.2 k/uL (3.8-10.6)
[2019-03-20 10:48] LABS: Polychromasia Present
[2019-03-20] MEDS ORDERED: LEVOFLOXACIN 750MG-D5W PMX 750 MG in DEXTROSE/WATER 1 150ML.BAG IVPB STA (11:45)
[2019-03-20 12:26] LABS: Appearance,Urine Clear (Clear); Bilirubin,Urine Negative (Negative); Blood,Urine Negative (Negative); Color,Urine Yellow; Glucose,Urine (UA) Negative (Negative); Ketones,Urine Negative (Negative); Leukocyte Esterase,Urine Negative (Negative); Mucus,Urine Rare /hpf; Nitrite,Urine Negative (Negative); PH, Urine 5.5 (5.0-8.0); Protein,Urine 2+ (Negative); RBC,Urine 1 /hpf (0-5); Specific Gravity,Urine 1.017 (1.001-1.035); Urobilinogen,Urine <2.0 mg/dL (<2.0); WBC,Urine 2 /hpf (0-5)
[2019-03-20] MEDS ORDERED: LACTULOSE 20 GM/30 ML CUP PO ONE (12:40)
[2019-03-20] MEDS ORDERED: CALCIUM CARBONATE 500 MG CHEWABLE PO STA (12:40)
[2019-03-20] MEDS ORDERED: NALOXONE 0.4 MG/ML 1 ML VIAL IV PRN (12:46)
[2019-03-20] MEDS ORDERED: IBUPROFEN 400 MG TAB PO PRN (12:46)
[2019-03-20] MEDS ORDERED: PANTOPRAZOLE 40 MG/10 ML VIAL IVP STA (12:53)
[2019-03-20 13:21] LABS: Anisocytosis Slight; HCT 23.9 % (34.0-46.0); HGB 7.5 gm/dL (11.4-16.0); Hypochromasia Marked; MCH 33.8 pg (25.0-35.0); MCHC 31.6 g/dL (31.0-37.0); MCV 107.2 fL (80.0-100.0); Macrocytosis Marked; Mean Platelet Volume 6.7; Platelet Count 266 k/uL (150-450); Poikilocytosis Slight; RBC 2.23 m/uL (3.80-5.40); RDW 16.2 % (11.5-15.5); WBC 7.3 k/uL (3.8-10.6)
[2019-03-20] MEDS: SODIUM CHLORIDE 0.9% 1,000 ML IV SCH ×2 (14:04→20:27)
[2019-03-20 14:12] LABS: Eosinophils # (M) 0.07 k/uL (0-0.7); Lymphocytes # (M) 0.66 k/uL (1.0-4.8); Monocytes # (M) 0.51 k/uL (0-1.0); Myelocytes # (M) 0.07 k/uL (0); Myelocytes % 1 %; Neutrophils # (M) 5.99 k/uL (1.3-7.7); Neutrophils % (M) 82 %; Nucleated Red Blood Cells 0 /100 WBC (0-0); Total Cells Counted 200
[2019-03-20] MEDS: PHENYTOIN SODIUM EXTENDED 100 MG CAP PO SCH ×2 (17:23→20:26)
[2019-03-20] MEDS: MORPHINE SULFATE 4 MG/ML SYRINGE IV PRN ×2 (17:23→21:41)
[2019-03-20] MEDS: CALCIUM ACETATE 667 MG TAB PO SCH (17:23)
[2019-03-20] MEDS: PANTOPRAZOLE 40 MG TABLET PO SCH (17:23)
[2019-03-20] MEDS: CALCITRIOL 0.25 MCG CAP PO SCH (17:29)
[2019-03-20 17:36] LABS: Glucose,Whole Blood 143 mg/dL (75-99)
[2019-03-20] MEDS: IPRATROPIUM-ALBUTEROL 3 ML NEB INHALATION PRN (19:49)
[2019-03-20] MEDS: SYMBICORT 160-4.5 MCG INHALER INHALATION SCH (19:49)
--- NOTE | 2019-03-20 19:56 | P.CNNES ---
History of Present Illness Consult date: 03/20/19 Requesting physician: Annabel Baxter Reason for Consult: Metabolic encephalopathy History of Present Illness: Patient is a 64-year-old female who states that she came to the hospital because she was having bad headache and sore throat. Patient states the symptoms started couple days ago. On asking detailed history about headaches, patient states that she has had headaches for "years". Patient states that her current headache is 10 over 10, but she has had headaches 10/10 in the past, nothing new for her. Patient is extremely hard of hearing, very difficult to obtain history. Family members not available. Patient states she lives with her son. Patient denies any focal symptoms. Patient underwent chest x-ray which revealed underlying fibrotic changes. Increase patchy density right lower lobe may reflect developing pneumonia. Correlate clinically. KUB showed non-obstructive bowel gas pattern. EKG shows normal sinus rhythm with LBBB. Patient had a CT of the head performed on 03/12/2019 for "headache". It revealed degenerative and nonspecific white matter changes most typical of remote microvascular ischemia. No acute hemorrhage. Partially empty sella turcica. History of right mastoidectomy. On my review, there is some mucosal thickening of the ethmoid air sinuses but the maxillary, sphenoid and frontal sinuses are clear. Patient had a carotid Doppler performed previously 11/30/2015 which revealed intimal thickening bilaterally. No significant stenosis. Antegrade flow in both vertebral artery. Patient had a normal EEG on 02/20/2018. Patient's last 2-D echo from 12/01/2018 showed sinus rhythm. Mid septal hypokinesis. Normal left atrial size. EF 45-50%. Patient's blood test shows worsening of renal function with BUN 68, creatinine 5.15. His is worse than baseline. Calcium is low 6.1. Ionized calcium 3.5, which is also low. Patient's last hemoglobin A1c 4.6 on 03/10/2019. Total cholesterol 190, LDL 120, HDL 48. B12 196 on 02/19/2018. TSH 1.75 on 02/19/2018. PTH was significantly elevated 992 on 07/16/2018. Patient's ammonia was elevated 59 on 03/20/2019 although few days before was normal at 9. Review of Systems As per HPI. Patient does have some shortness of breath. Denies any double vision, loss of vision. Denies abdominal pain. Denies chest pain. Patient has arthritis. Patient has swelling. No fever or chills. 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 Other hx: High ammonia levels, chronic liver disease, kidney stones, CKD stage IV, chronic respiratory failure with home O2 at 4L/NC, NIDDM type II, neuropathy bilateral feet, IBS, arthritis in multiple joints, chronic back pain, current problems with weakness, generalized edema. History of Any Multi-Drug Resistant Organisms: None Reported Past Surgical History: Ear Surgery, Hysterectomy, Orthopedic Surgery Additional Past Surgical History / Comment(s): Multiple surgeries/ESWL for kidney stones, bilateral caratid endartectomies, L ankle surgery with metal esteban/pin, R ear surgery for deteriorating eardrum, sinus surgery, colonoscopy. Past Anesthesia/Blood Transfusion Reactions: No Reported Reaction Smoking Status: Former smoker - Past Family History Mother Family Medical History: Diabetes Mellitus, Hypertension Father Family Medical History: Hypertension Medications and Allergies Home Medications Medication Instructions Recorded Confirmed Type Phenytoin Sodium Extended 100 mg PO TID 11/29/15 03/20/19 History [Dilantin] Folic Acid 1 mg PO DAILY 07/22/17 03/20/19 History Gemfibrozil [Lopid] 1,200 mg PO HS 09/05/17 03/20/19 History Montelukast [Singulair] 10 mg PO HS #30 tab 12/26/17 03/20/19 Rx Sodium Bicarbonate Tab 1,300 mg PO BID #60 tab 02/23/18 03/20/19 Rx Calcitriol 0.5 mcg PO MOWEFR 07/20/18 03/20/19 History Omeprazole [PriLOSEC] 20 mg PO DAILY 07/20/18 03/20/19 History Primidone [Mysoline] 50 mg PO BID 07/20/18 03/20/19 History Ipratropium-Albuterol Nebulize 3 ml INHALATION RT-QID PRN 11/27/18 03/20/19 History [Duoneb 0.5 mg-3 mg/3 ml Soln] Budesonide-Formot 160-4.5 Mcg 2 puff INHALATION RT-BID 12/17/18 03/20/19 History [Symbicort 160-4.5 Mcg Inhaler] Metoprolol Succinate (ER) [Toprol 50 mg PO DAILY 03/07/19 03/20/19 History XL] Acetaminophen Tab [Tylenol] 650 mg PO Q6HR PRN tab 03/12/19 03/20/19 Rx Calcium Acetate [PhosLo] 667 mg PO TID-W/MEALS #90 cap 03/12/19 03/20/19 Rx Carbamide Peroxide [Debrox Otic] 5 drops BOTH EARS BID ml 03/12/19 03/20/19 Rx Lactulose [Cephulac] 30 gm PO TID #900 ml 03/12/19 03/20/19 Rx Sertraline [Zoloft] 50 mg PO DAILY #0 03/12/19 03/20/19 Rx hydrALAZINE HCL [Apresoline] 50 mg PO TID #90 tab 03/12/19 03/20/19 Rx HYDROcodone/APAP 5-325MG [[place] 1 tab PO Q6HR PRN 03/20/19 03/20/19 History 5-325] Melatonin 3 mg PO HS PRN 03/20/19 03/20/19 History Allergies Allergy/AdvReac Type Severity Reaction Status Date / Time Penicillins Allergy Mild Swelling Verified 03/20/19 10:24 Physical Examination - Vital Signs Vital Signs: Vital Signs Temp Pulse Pulse Resp BP BP Pulse Ox 03/20/19 17:45 92 16 126/61 95 03/20/19 16:51 97.3 F L 92 20 130/60 100 03/20/19 15:08 94 22 116/55 95 03/20/19 14:04 96 18 136/69 97 03/20/19 12:58 97.7 F 96 18 105/54 98 03/20/19 11:22 96 20 111/69 94 L 03/20/19 08:58 98 F 92 22 137/96 96 Intake and Output 03/20/19 03/20/19 03/20/19 06:59 14:59 22:59 Intake Total 120 Output Total 250 Balance -250 120 Intake: Oral 120 Output: Urine 250 Straight 250 Other: # Voids 0 Weight 82.1 kg On examination patient is an elderly female, laying in the bed, mildly short of breath. Patient is morbidly obese. No obvious bruit. S1 and S2 audible. Patient has peripheral edema. Speech and language functions are normal. Her voice is hoarse. Patient is very hard of hearing. Attention and concentration fund of knowledge is limited. Patient states that it is February but she could not tell the year, only 20 something. She knows it is a fall season and states "candelaria" is the president. When I give her choices, she was able to tell the name of the current president. She knows that she is in [facility]. On cranial nerve examination pupils are round and reacting to l ight, visual rascon are full, face is symmetric and tongue protrudes the midline. Palatal elevation normal muscle strength is no drift and the strength is normal in arms and legs distally and proximally. Reflexes are diminished and plantars are downgoing. Sensory touch is equal. No obvious ataxia for [id number] testing. Patient has flapping tremors of the outstretched hands. Tone and bulk of muscles normal no tremors at rest gait deferred. Results - Laboratory Findings CBC and BMP: 03/20/19 12:57 03/20/19 09:05 Abnormal Lab Findings: Abnormal Labs 03/20/19 03/20/19 03/20/19 09:05 09:05 09:05 RBC 2.34 L Hgb 7.7 L Hct 24.8 L MCV 105.9 H RDW 16.1 H Lymphocytes # (Manual) 0.81 L Myelocytes # (Manual) 0.06 H Nucleated RBCs 1 H Macrocytosis Chloride 108 H Carbon Dioxide 17 L BUN 68 H Creatinine 5.15 H POC Glucose (mg/dL) Calcium 6.1 L* Ionized Calcium Graciela Phosphorus 7.7 H Alkaline Phosphatase 164 H Ammonia 59 H Troponin I Urine Protein Urine Mucus 03/20/19 03/20/19 03/20/19 09:05 12:08 12:08 RBC Hgb Hct MCV RDW Lymphocytes # (Manual) Myelocytes # (Manual) Nucleated RBCs Macrocytosis Chloride Carbon Dioxide BUN Creatinine POC Glucose (mg/dL) Calcium Ionized Calcium Graciela 3.5 L* Phosphorus Alkaline Phosphatase Ammonia Troponin I 0.180 H* Urine Protein 2+ H Urine Mucus Rare H 03/20/19 03/20/19 12:57 17:34 RBC 2.23 L Hgb 7.5 L Hct 23.9 L MCV 107.2 H RDW 16.2 H Lymphocytes # (Manual) 0.66 L Myelocytes # (Manual) 0.07 H Nucleated RBCs Macrocytosis Marked A Chloride Carbon Dioxide BUN Creatinine POC Glucose (mg/dL) 143 H Calcium Ionized Calcium Gr[place]iela Phosphorus Alkaline Phosphatase Ammonia Troponin I Urine Protein Urine Mucus Assessment and Plan Assessment: * Altered mental status, likely due to toxic metabolic encephalopathy. Patient's worsening renal functions, dehydration, significant anemia, h ypocalcemia and hyperammonemia are the likely causes. * Possible pneumonia * Headache, unclear etiology. Patient's has empty sella noted on previous CT. Rule out pseudotumor cerebri. * History of B12 deficiency with B12 196 on 02/19/2018. * Vitamin D deficiency * Hyperparathyroidism, possibly due to renal disease. Plan: * Patient has chronic headaches. She has obesity. CT of the head revealed empty sella. Consider lumbar puncture to evaluate for opening pressure to rule out pseudotumor cerebri. This could be performed by interventional radiology under fluoroscopy guidance, as patient is morbidly obese, and bedside lumbar puncture will be challenging. Patient can be seen by an tomato grader as outpatient also to rule out any evidence of papilledema. Headaches could also be tension type also. We will check ESR and CRP to rule out temporal arteritis. * We will recheck B12, methylmalonic acid, folic acid. * Your medical management for evaluation and treatment of other medical conditions. * Neurology coverage not available on the weekend. * Dr. Mendosa we will follow up on Saturday. * Thank you very much for allowing me to participate in care of your patient.
[2019-03-20] MEDS: LACTULOSE 20 GM/30 ML CUP PO SCH (20:25)
[2019-03-20] MEDS: MONTELUKAST 10 MG TAB PO SCH (20:26)
[2019-03-20 20:49] LABS: Glucose,Whole Blood 160 mg/dL (75-99)
[2019-03-21] MEDS: MORPHINE SULFATE 4 MG/ML SYRINGE IV PRN ×2 (01:59→06:12)
[2019-03-21] MEDS: CALCIUM ACETATE 667 MG TAB PO SCH ×3 (06:12→17:17)
[2019-03-21 06:18] LABS: Glucose,Whole Blood 127 mg/dL (75-99)
[2019-03-21 06:58] LABS: Anisocytosis Slight; HCT 23.6 % (34.0-46.0); HGB 7.3 gm/dL (11.4-16.0); Hypochromasia Marked; MCH 33.8 pg (25.0-35.0); MCHC 31.1 g/dL (31.0-37.0); MCV 108.8 fL (80.0-100.0); Macrocytosis Marked; Mean Platelet Volume 7.9; Platelet Count 243 k/uL (150-450); Poikilocytosis Slight; RBC 2.17 m/uL (3.80-5.40); RDW 16.1 % (11.5-15.5)
[2019-03-21 07:03] LABS: ALT 18 U/L (9-52); AST 15 U/L (14-36); African American GFR (CKD) 10 (>60 ml/min/1.73 sqM); Albumin 3.7 g/dL (3.5-5.0); Alkaline Phosphatase 163 U/L (38-126); Anion Gap 14 mmol/L; Blood Urea Nitrogen 61 mg/dL (7-17); C Reactive Protein 14.9 mg/L (<10.0); Carbon Dioxide 16 mmol/L (22-30); Chloride 107 mmol/L (98-107); Glucose 119 mg/dL (74-99); Non-African American GFR(CKD) 9 (>60 ml/min/1.73 sqM); Potassium 4.9 mmol/L (3.5-5.1); Sodium 137 mmol/L (137-145); Total Bilirubin 0.3 mg/dL (0.2-1.3); Total Protein 6.6 g/dL (6.3-8.2)
[2019-03-21 07:11] LABS: Calcium 6.3 mg/dL (8.4-10.2)
[2019-03-21 07:30] LABS: Basophils # (M) 0.06 k/uL (0-0.2); Eosinophils # (M) 0.13 k/uL (0-0.7); Monocytes # (M) 0.32 k/uL (0-1.0); Neutrophils % (M) 83 %; Nucleated Red Blood Cells 1 /100 WBC (0-0); Total Cells Counted 200
[2019-03-21 07:31] LABS: Large Platelets Present; Lymphocytes # (M) 0.63 k/uL (1.0-4.8); Neutrophils # (M) 5.23 k/uL (1.3-7.7); WBC 6.3 k/uL (3.8-10.6)
[2019-03-21 07:56] LABS: Erythrocyte Sedimentation Rate 93 mm/hr (0-20)
[2019-03-21] MEDS: LACTULOSE 20 GM/30 ML CUP PO SCH ×4 (08:57→20:32)
[2019-03-21] MEDS: PANTOPRAZOLE 40 MG TABLET PO SCH (08:58)
[2019-03-21] MEDS: PHENYTOIN SODIUM EXTENDED 100 MG CAP PO SCH ×3 (08:58→20:27)
[2019-03-21] MEDS: SYMBICORT 160-4.5 MCG INHALER INHALATION SCH ×3 (09:00→20:02)
[2019-03-21] MEDS: IPRATROPIUM-ALBUTEROL 3 ML NEB INHALATION PRN ×2 (09:00→19:49)
--- NOTE | 2019-03-21 11:12 | P.HPIM ---
History of Present Illness H&P Date: 03/20/19 Chief Complaint: Weakness and fatigue This is a 64-year-old white female well-known to the practice. She was discharged here from [facility] on 03/12/2019 after being admitted for hepatic encephalopathy and acute on chronic renal failure. She returns now with worsening fatigue and increasing confusion. At her previous admission subacute rehabilitation was recommended and refused by the patient and family. Home care was recommended but also refused after discharge by the family. She is complaining of fatigue headache, weakness, nausea, she denies any chest pains, pressures, has chronic shortness of breath with exertion due to COPD. She was seen and examined emergency room with the nurse practitioner. Review of Systems All systems: negative Past Medical History Past Medical History: COPD, Diabetes Mellitus, GERD/Reflux, Hyperlipidemia, Hypertension, Osteoarthritis (OA), Pneumonia, Respiratory Disorder, Seizure Disorder, Vascular Disorder Additional Past Medical History / Comment(s): Pt recently admitted to [facility] on 03/07/19 with hepatic encephalopathy/chronic liver disease probably d/t fatty liver advancing to chronic liver disease with possible cirrhosis/acute on chronic renal failure/acute on chronic COPD, AMS d/t elevated ammonia levels /metabolic acidosis/ electrolyte disturbances. Other hx: High ammonia levels, chronic liver disease, kidney stones, CKD stage IV, chronic respiratory failure with home O2 at 4L/NC, NIDDM type II, neuropathy bilateral feet, IBS, arthritis in multiple joints, chronic back pain, current problems with weakness, generalized edema. History of Any Multi-Drug Resistant Organisms: None Reported Past Surgical History: Ear Surgery, Hysterectomy, Orthopedic Surgery Additional Past Surgical History / Comment(s): Multiple surgeries/ESWL for kidney stones, bilateral caratid endartectomies, L ankle surgery with metal esteban/pin, R ear surgery for deteriorating eardrum, sinus surgery, colonoscopy. Past Anesthesia/Blood Transfusion Reactions: No Reported Reaction Smoking Status: Former smoker - Past Family History Mother Family Medical History: Diabetes Mellitus, Hypertension Father Family Medical History: Hypertension Medications and Allergies Home Medications Medication Instructions Recorded Confirmed Type Phenytoin Sodium Extended 100 mg PO TID 11/29/15 03/20/19 History [Dilantin] Folic Acid 1 mg PO DAILY 07/22/17 03/20/19 History Gemfibrozil [Lopid] 1,200 mg PO HS 09/05/17 03/20/19 History Montelukast [Singulair] 10 mg PO HS #30 tab 12/26/17 03/20/19 Rx Sodium Bicarbonate Tab 1,300 mg PO BID #60 tab 02/23/18 03/20/19 Rx Calcitriol 0.5 mcg PO MOWEFR 07/20/18 03/20/19 History Omeprazole [PriLOSEC] 20 mg PO DAILY 07/20/18 03/20/19 History Primidone [Mysoline] 50 mg PO BID 07/20/18 03/20/19 History Ipratropium-Albuterol Nebulize 3 ml INHALATION RT-QID PRN 11/27/18 03/20/19 History [Duoneb 0.5 mg-3 mg/3 ml Soln] Budesonide-Formot 160-4.5 Mcg 2 puff INHALATION RT-BID 12/17/18 03/20/19 History [Symbicort 160-4.5 Mcg Inhaler] Metoprolol Succinate (ER) [Toprol 50 mg PO DAILY 03/07/19 03/20/19 History XL] Acetaminophen Tab [Tylenol] 650 mg PO Q6HR PRN tab 03/12/19 03/20/19 Rx Calcium Acetate [PhosLo] 667 mg PO TID-W/MEALS #90 cap 03/12/19 03/20/19 Rx Carbamide Peroxide [Debrox Otic] 5 drops BOTH EARS BID ml 03/12/19 03/20/19 Rx Lactulose [Cephulac] 30 gm PO TID #900 ml 03/12/19 03/20/19 Rx Sertraline [Zoloft] 50 mg PO DAILY #0 03/12/19 03/20/19 Rx hydrALAZINE HCL [Apresoline] 50 mg PO TID #90 tab 03/12/19 03/20/19 Rx HYDROcodone/APAP 5-325MG [Lissie 1 tab PO Q6HR PRN 03/20/19 03/20/19 History 5-325] Melatonin 3 mg PO HS PRN 03/20/19 03/20/19 History Allergies Allergy/AdvReac Type Severity Reaction Status Date / Time Penicillins Allergy Mild Swelling Verified 03/20/19 10:24 Physical Exam Vitals: Vital Signs Temp Pulse Pulse Resp BP BP Pulse Ox 03/21/19 09:13 88 03/21/19 09:00 84 03/21/19 08:00 87 16 100/51 90 L 03/21/19 04:00 95 18 108/58 99 03/21/19 00:00 97.6 F 91 18 94/57 95 03/20/19 20:00 97.5 F L 95 18 119/54 97 03/20/19 19:50 93 95 03/20/19 17:45 92 16 126/61 95 03/20/19 16:51 97.3 F L 92 20 130/60 100 03/20/19 15:08 94 22 116/55 95 03/20/19 14:04 96 18 136/69 97 03/20/19 12:58 97.7 F 96 18 105/54 98 03/20/19 11:22 96 20 111/69 94 L Intake and Output 03/20/19 03/21/19 03/21/19 22:59 06:59 14:59 Intake Total 120 Output Total 600 Balance 120 -600 Intake: Oral 120 Output: Urine 600 Straight 600 Other: # Voids 0 200 # Bowel Movements 2 2 Weight 98.2 kg GENERAL: Fatigue and somewhat confused elderly white female who looks older than her stated age HEAD: Atraumatic, normocephalic. EYES: Pupils equal round and reactive to light, extraocular movements intact, sclera anicteric, conjunctiva are normal. ENT:nares patent, oropharynx clear without exudates. Moist mucous membranes. NECK: Normal range of motion, supple without lymphadenopathy or JVD, no thyromegaly LUNGS: Breath sounds coarse e to auscultation bilaterally and equal. No wheezes rales or rhonchi. HEART: Regular rate and rhythm without murmurs, rubs or gallops.S1S2 Normal ABDOMEN: Soft, mild generalized tenderness noted, normoactive bowel sounds. No guarding, no rebound. No masses appreciated. EXTREMITIES: Normal range of motion, no pitting, +1 edema generalized edema. No clubbing or cyanosis. NEUROLOGICAL: Cranial nerves II through XII grossly intact. Normal speech, gait is untestable due to her weakness. She appears confused compared to her baseline PSYCH: Saddened mood, normal affect. SKIN: Warm, Dry, normal turgor, no rashes or lesions noted. Results CBC & Chem 7: 03/21/19 06:27 03/21/19 06:27 Labs: Abnormal Lab Results - Last 24 Hours (Table) 03/20/19 03/20/19 03/20/19 Range/Units 12:08 12:08 12:57 RBC 2.23 L (3.80-5.40) m/uL Hgb 7.5 L (11.4-16.0) gm/dL Hct 23.9 L (34.0-46.0) % MCV 107.2 H (80.0-100.0) fL RDW 16.2 H (11.5-15.5) % Lymphocytes # (Manual) 0.66 L (1.0-4.8) k/uL Myelocytes # (Manual) 0.07 H (0) k/uL Nucleated RBCs (0-0) /100 WBC Macrocytosis Marked A ESR (0-20) mm/hr Carbon Dioxide (22-30) mmol/L BUN (7-17) mg/dL Creatinine (0.52-1.04) mg/dL Glucose (74-99) mg/dL POC Glucose (mg/dL) (75-99) mg/dL Calcium (8.4-10.2) mg/dL Ionized Calcium Graciela 3.5 L* (4.5-5.3) mg/dL Alkaline Phosphatase (38-126) U/L C-Reactive Protein (<10.0) mg/L Urine Protein 2+ H (Negative) Urine Mucus Rare H (None) /hpf 03/20/19 03/20/19 03/21/19 Range/Units 17:34 20:31 06:06 RBC (3.80-5.40) m/uL Hgb (11.4-16.0) gm/dL Hct (34.0-46.0) % MCV (80.0-100.0) fL RDW (11.5-15.5) % Lymphocytes # (Manual) (1.0-4.8) k/uL Myelocytes # (Manual) (0) k/uL Nucleated RBCs (0-0) /100 WBC Macrocytosis ESR (0-20) mm/hr Carbon Dioxide (22-30) mmol/L BUN (7-17) mg/dL Creatinine (0.52-1.04) mg/dL Glucose (74-99) mg/dL POC Glucose (mg/dL) 143 H 160 H 127 H (75-99) mg/dL Calcium (8.4-10.2) mg/dL Ionized Calcium Graciela (4.5-5.3) mg/dL Alkaline Phosphatase (38-126) U/L C-Reactive Protein (<10.0) mg/L Urine Protein (Negative) Urine Mucus (None) /hpf 03/21/19 03/21/19 Range/Units 06:27 06:27 RBC 2.17 L (3.80-5.40) m/uL Hgb 7.3 L (11.4-16.0) gm/dL Hct 23.6 L (34.0-46.0) % MCV 108.8 H (80.0-100.0) fL RDW 16.1 H (11.5-15.5) % Lymphocytes # (Manual) 0.63 L (1.0-4.8) k/uL Myelocytes # (Manual) (0) k/uL Nucleated RBCs 1 H (0-0) /100 WBC Macrocytosis Marked A ESR 93 H (0-20) mm/hr Carbon Dioxide 16 L (22-30) mmol/L BUN 61 H (7-17) mg/dL Creatinine 4.85 H (0.52-1.04) mg/dL Glucose 119 H (74-99) mg/dL POC Glucose (mg/dL) (75-99) mg/dL Calcium 6.3 L* (8.4-10.2) mg/dL Ionized Calcium Graciela (4.5-5.3) mg/dL Alkaline Phosphatase 163 H (38-126) U/L C-Reactive Protein 14.9 H (<10.0) mg/L Urine Protein (Negative) Urine Mucus (None) /hpf Thrombosis Risk Factor Assmnt - DVT/VTE Prophylaxis DVT/VTE Prophylaxis: Pharmacologic Prophylaxis ordered, Mechanical Prophylaxis ordered - Choose All That Apply Any of the Below Risk Factors Present?: Yes Each Factor Represents 1 point: Abnormal pulmonary function (COPD), Obesity (BMI >25), Serious lung disease incl. pneumonia (< 1month), Swollen legs (current) Other Risk Factors: No Other congenital or acquired thrombophilia - If yes, enter type in comment: No Thrombosis Risk Factor Assessment Total Risk Factor Score: 4 Thrombosis Risk Factor Assessment Level: Moderate Risk Assessment and Plan (1) Macrocytic anemia Current Visit: Yes Status: Acute Code(s): D53.9 - NUTRITIONAL ANEMIA, UNSPECIFIED SNOMED Code(s): 78314589 (2) Hyperammonemia Current Visit: Yes Status: Acute Code(s): E72.20 - DISORDER OF UREA CYCLE METABOLISM, UNSPECIFIED SNOMED Code(s): 2827631 (3) Hypocalcemia Current Visit: Yes Status: Acute Code(s): E83.51 - HYPOCALCEMIA SNOMED Code(s): 1041905 (4) Acute on chronic renal failure Current Visit: No Status: Acute Code(s): N17.9 - ACUTE KIDNEY FAILURE, UNSPECIFIED; N18.9 - CHRONIC KIDNEY DISEASE, UNSPECIFIED SNOMED Code(s): 393205942 (5) Altered mental status Current Visit: No Status: Acute Code(s): R41.82 - ALTERED MENTAL STATUS, UNS PECIFIED SNOMED Code(s): 684665776 (6) Chronic renal disease, stage 4, severely decreased glomerular filtration rate (GFR) between 15-29 mL/min/1.73 square meter Current Visit: No Status: Acute Code(s): N18.4 - CHRONIC KIDNEY DISEASE, STAGE 4 (SEVERE) SNOMED Code(s): 297296924 (7) Dehydration Current Visit: No Status: Acute Code(s): E86.0 - DEHYDRATION SNOMED Code(s): 62911317 (8) Essential (primary) hypertension Current Visit: No Status: Acute Code(s): I10 - ESSENTIAL (PRIMARY) HYPERTENSION SNOMED Code(s): 53453537 (9) Hepatic encephalopathy Current Visit: No Status: Acute Code(s): K72.90 - HEPATIC FAILURE, UNSPECIFIED WITHOUT COMA SNOMED Code(s): 56987399 (10) Hyperammonemia Current Visit: No Status: Acute Code(s): E72.20 - DISORDER OF UREA CYCLE METABOLISM, UNSPECIFIED SNOMED Code(s): 3429304 (11) Noncompliance Current Visit: No Status: Acute Code(s): Z91.19 - PATIENT'S NONCOMPLIANCE W OTH MEDICAL TREATMENT AND REGIMEN SNOMED Code(s): 9946804 (12) Pure hypercholesterolemia Current Visit: No Status: Acute Code(s): E78.00 - PURE HYPERCHOLESTEROLEMIA, UNSPECIFIED SNOMED Code(s): 485859699 (13) Readmission after hospitalization within last 30 days Current Visit: No Status: Acute Code(s): XCV3145 - SNOMED Code(s): 588211935 (14) Seizure disorder Current Visit: No Status: Acute Code(s): G40.909 - EPILEPSY, UNSP, NOT INTRACTABLE, WITHOUT STATUS EPILEPTICUS SNOMED Code(s): 227424886 Plan: Patient will be seen by GI once again along with neurology and nephrology. We'll await these consult recommendations. Repeat labs in am. Continue supportive care and IV fluids for dehydration. Plan the patient when she is discharged to go to [facility], due to her significant ongoing medical issues. She'll be reevaluated next 24 hours.
[2019-03-21 12:06] LABS: Glucose,Whole Blood 140 mg/dL (75-99)
--- NOTE | 2019-03-21 12:43 | P.PN ---
Subjective This is a 64-year-old white female well-known to the practice. She was discharged here from [facility] on 03/12/2019 after being admitted for hepatic encephalopathy and acute on chronic renal failure. She returns now with worsening fatigue and increasing confusion. At her previous admission subacute rehabilitation was recommended and refused by the patient and family. Home care was recommended but also refused after discharge by the family. She is complaining of fatigue headache, weakness, nausea, she denies any chest pains, pressures, has chronic shortness of breath with exertion due to COPD. She was seen and examined emergency room with the nurse practitioner. 03/21/2019: Patient was found in her room today asleep. She was arousable. Staff reports that she will not do anything for herself. She remained quite confused and doesn't seem to have any recollection of her's previous hospital stay. She just asked for her 2 sons and wonders where they are. She is unable to answer my questions significantly and is oriented 1 to self only at this time. Objective - Vital Signs Vital signs: Vital Signs Temp 97.6 F 03/21/19 00:00 Pulse 88 03/21/19 11:55 Resp 16 03/21/19 11:55 BP 113/55 03/21/19 11:55 Pulse Ox 93 L 03/21/19 11:55 Intake & Output 03/20/19 03/21/19 03/21/19 18:59 06:59 18:59 Intake Total 120 Output Total 250 600 Balance -130 -600 Weight 82.1 kg 98.2 kg Intake: Oral 120 Output: Urine 250 600 Straight 250 600 Other: # Voids 0 200 # Bowel Movements 2 - Exam NERAL: Fatigue and somewhat confused elderly white female who looks older than her stated age NECK: Normal range of motion, supple without lymphadenopathy or JVD, no thyromegaly LUNGS: Breath sounds coarse e to auscultation bilaterally and equal. No wheezes rales or rhonchi. HEART: Regular rate and rhythm without murmurs, rubs or gallops.S1S2 Normal ABDOMEN: Soft, mild generalized tenderness noted, normoactive bowel sounds. No guarding, no rebound. No masses appreciated. EXTREMITIES: Normal range of motion, no pitting, +1 edema generalized edema. No clubbing or cyanosis. NEUROLOGICAL: Cranial nerves II through XII grossly intact. Normal speech, gait is untestable due to her weakness. She appears confused compared to her baseline PSYCH: Saddened mood, normal affect. SKIN: Warm, Dry, normal turgor, no rashes or lesions noted. - Labs CBC & Chem 7: 03/21/19 06:27 03/21/19 06:27 Labs: Abnormal Lab Results - Last 24 Hours (Table) 03/20/19 03/20/19 03/20/19 Range/Units 12:08 12:57 17:34 RBC 2.23 L (3.80-5.40) m/uL Hgb 7.5 L (11.4-16.0) gm/dL Hct 23.9 L (34.0-46.0) % MCV 107.2 H (80.0-100.0) fL RDW 16.2 H (11.5-15.5) % Lymphocytes # (Manual) 0.66 L (1.0-4.8) k/uL Myelocytes # (Manual) 0.07 H (0) k/uL Nucleated RBCs (0-0) /100 WBC Macrocytosis Marked A ESR (0-20) mm/hr Carbon Dioxide (22-30) mmol/L BUN (7-17) mg/dL Creatinine (0.52-1.04) mg/dL Glucose (74-99) mg/dL POC Glucose (mg/dL) 143 H (75-99) mg/dL Plasma Lactic Acid Jd (0.7-2.0) mmol/L Calcium (8.4-10.2) mg/dL Ionized Calcium Graciela 3.5 L* (4.5-5.3) mg/dL Alkaline Phosphatase (38-126) U/L C-Reactive Protein (<10.0) mg/L 03/20/19 03/21/19 03/21/19 Range/Units 20:31 06:06 06:27 RBC 2.17 L (3.80-5.40) m/uL Hgb 7.3 L (11.4-16.0) gm/dL Hct 23.6 L (34.0-46.0) % MCV 108.8 H (80.0-100.0) fL RDW 16.1 H (11.5-15.5) % Lymphocytes # (Manual) 0.63 L (1.0-4.8) k/uL Myelocytes # (Manual) (0) k/uL Nucleated RBCs 1 H (0-0) /100 WBC Macrocytosis Marked A ESR 93 H (0-20) mm/hr Carbon Dioxide (22-30) mmol/L BUN (7-17) mg/dL Creatinine (0.52-1.04) mg/dL Glucose (74-99) mg/dL POC Glucose (mg/dL) 160 H 127 H (75-99) mg/dL Plasma Lactic Acid Jd (0.7-2.0) mmol/L Calcium (8.4-10.2) mg/dL Ionized Calcium Graciela (4.5-5.3) mg/dL Alkaline Phosphatase (38-126) U/L C-Reactive Protein (<10.0) mg/L 03/21/19 03/21/19 03/21/19 Range/Units 06:27 11:27 12:04 RBC (3.80-5.40) m/uL Hgb (11.4-16.0) gm/dL Hct (34.0-46.0) % MCV (80.0-100.0) fL RDW (11.5-15.5) % Lymphocytes # (Manual) (1.0-4.8) k/uL Myelocytes # (Manual) (0) k/uL Nucleated RBCs (0-0) /100 WBC Macrocytosis ESR (0-20) mm/hr Carbon Dioxide 16 L (22-30) mmol/L BUN 61 H (7-17) mg/dL Creatinine 4.85 H (0.52-1.04) mg/dL Glucose 119 H (74-99) mg/dL POC Glucose (mg/dL) 140 H (75-99) mg/dL Plasma Lactic Acid Jd 0.6 L (0.7-2.0) mmol/L Calcium 6.3 L* (8.4-10.2) mg/dL Ionized Calcium Graciela (4.5-5.3) mg/dL Alkaline Phosphatase 163 H (38-126) U/L C-Reactive Protein 14.9 H (<10.0) mg/L Assessment and Plan (1) Macrocytic anemia Current Visit: Yes Status: Acute Code(s): D53.9 - NUTRITIONAL ANEMIA, UNSPECIFIED SNOMED Code(s): 27313691 (2) Hyperammonemia Current Visit: Yes Status: Acute Code(s): E72.20 - DISORDER OF UREA CYCLE METABOLISM, UNSPECIFIED SNOMED Code(s): 3989532 (3) Hypocalcemia Current Visit: Yes Status: Acute Code(s): E83.51 - HYPOCALCEMIA SNOMED Code(s): 3330184 (4) Acute on chronic renal failure Current Visit: No Status: Acute Code(s): N17.9 - ACUTE KIDNEY FAILURE, UNSPECIFIED; N18.9 - CHRONIC KIDNEY DISEASE, UNSPECIFIED SNOMED Code(s): 407568947 (5) Altered mental status Current Visit: No Status: Acute Code(s): R41.82 - ALTERED MENTAL STATUS, UNSPECIFIED SNOMED Code(s): 612604531 (6) Chronic renal disease, stage 4, severely decreased glomerular filtration rate (GFR) between 15-29 mL/min/1.73 square meter Current Visit: No Status: Acute Code(s): N18.4 - CHRONIC KIDNEY DISEASE, STAGE 4 (SEVERE) SNOMED Code(s): 098817647 (7) Dehydration Current Visit: No Status: Acute Code(s): E86.0 - DEHYDRATION SNOMED Code(s): 05315967 (8) Essential (primary) hypertension Current Visit: No Status: Acute Code(s): I10 - ESSENTIAL (PRIMARY) HYPERTENSION SNOMED Code(s): 95231849 (9) Hepatic encephalopathy Current Visit: No Status: Acute Code(s): K72.90 - HEPATIC FAILURE, UNSPECIFIED WITHOUT COMA SNOMED Code(s): 78696769 (10) Hyperammonemia Current Visit: No Status: Acute Code(s): E72.20 - DISORDER OF UREA CYCLE METABOLISM, UNSPECIFIED SNOMED Code(s): 4948034 (11) Noncompliance Current Visit: No Status: Acute Code(s): Z91.19 - PATIENT'S NONCOMPLIANCE W OTH MEDICAL TREATMENT AND REGIMEN SNOMED Code(s): 4424949 (12) Pure hypercholesterolemia Current Visit: No Status: Acute Code(s): E78.00 - PURE HYPERCHOLESTEROLEMIA, UNSPECIFIED SNOMED Code(s): 458554345 (13) Readmission after hospitalization within last 30 days Current Visit: No Status: Acute Code(s): DBX4405 - SNOMED Code(s): 574782566 (14) Seizure disorder Current Visit: No Status: Acute Code(s): G40.909 - EPILEPSY, UNSP, NOT INTRACTABLE, WITHOUT STATUS EPILEPTICUS SNOMED Code(s): 486463016
[2019-03-21 12:54] LABS: Folate, Serum >24.0 ng/mL
--- NOTE | 2019-03-21 15:13 | CONS ---
CONSULTATION REASON FOR CONSULT: Renal failure. HISTORY OF PRESENT ILLNESS: Patient is a 64-year-old female who was recently discharged from the hospital after admission on 03/08/2019. She was discharged on 03/12 and patient returns now with altered mentation and confusion. Renal function is worse with serum creatinine at 5.1 mg/dL which is up from 2.7 at the time of discharge. Currently patient is maintained on IV fluids. She has had urine output. Her creatinine is down to 4.8. She has been voiding. No active bleeding noted. Prior to admission, patient was not on any BARRY inhibitors or nonsteroidal anti-inflammatory agents. Her UA shows 2+ protein. She does have chronic kidney disease secondary to diabetic nephropathy with previous creatinine about 2.4-2.7 mg/dL. Patient denies any nausea, vomiting, diarrhea or abdominal pain. She is very hard of hearing. PAST MEDICAL HISTORY: Type 2 diabetes, COPD, CKD, hypertension, hyperlipidemia, seizure disorder, anxiety, bipolar depression. PAST SURGICAL HISTORY: Hysterectomy. SOCIAL HISTORY: Positive for patient being a former smoker and use of marijuana. MEDICATIONS: Medications prior to admission included sodium bicarb, Dilantin, Prilosec, Singulair, Toprol, Lopid, calcitriol, folic acid, hydralazine, melatonin, PhosLo, Tylenol, Debrox, Bohannon. EXAMINATION: Currently patient is comfortable, awake. She is not in any acute distress. She is very hard of hearing. Blood pressure was 100/51, heart rate 87 per minute, she is afebrile. Examination of the heart S1, S2. Examination of the lungs, bilateral breath sounds are heard. Abdomen is soft, non-tender. Examination of lower extremities shows no significant edema. Some edema is noted in the upper extremities bilaterally. The patient does have flapping tremors. LABS: Show sodium 137, potassium 4.9, chloride 107, CO2 is 16, BUN 61, creatinine 4.8, calcium 6.3, hemoglobin of 7.3 g/dL. ASSESSMENT: 1. Acute kidney injury on top of chronic kidney disease, appears to be mainly prerenal. Currently patient is maintained on IV fluids. Renal function has improved. She does have asterixis and then patient may need to be dialyzed. However, in view of improving renal function, I will wait on hemodialysis today. If her function is not further improved by tomorrow, we will start dialysis. 2. Chronic kidney disease secondary to diabetic nephropathy, nephrosclerosis. Currently patient is not on any medications for diabetes. I do see diabetes in her past medical history. I will order serologies in view of rapid worsening of renal failure to rule out underlying glomerulonephritis. 3. Confusion associated with the metabolic encephalopathy and uremia, seems to be improving. Will reassess later on today to decide about dialysis. 4. Metabolic acidosis maintained on sodium bicarb. 5. Chronic kidney disease mineral bone disorder, currently on PhosLo and calcitriol. 6. History of seizure disorder, maintained on Dilantin. PLAN: Continue IV fluids. Reassess later this afternoon. Check baseline serologies. Hemodialysis if mental status does not improve further and check postvoid residual. Thank you for this consultation. We will continue to follow the patient with you during her hospitalization. MARIAM / LIBERTY: [phone] /
--- NOTE | 2019-03-21 16:13 | CONS ---
CONSULTATION DATE OF SERVICE: 03/21/2019 REQUESTING PHYSICIAN: Dr. Mari. REASON FOR CONSULTATION: Anemia and history of hyperammonemia. HISTORY OF PRESENT ILLNESS: The patient is a 64-year-old pleasant white female who was just discharged from the hospital about a week ago at which time she was admitted to the hospital with altered mental status and was diagnosed with hepatic encephalopathy/hyperammonemia. She was started on oral lactulose and her symptoms gradually improved and the ammonia has been corrected. She had extensive workup done during the last hospitalization including a workup for chronic liver disease. Hepatitis serologies for A, B and C were negative. Autoimmune workup/metabolic workup was negative. Most likely it was thought that she may have chronic underlying liver disease related to fatty liver that has been well compensated. The patient was readmitted to the hospital yesterday because of shortness of breath and slightly increasing fatigue and mild confusion. Repeat labs showed ammonia level of 64. The patient apparently has been taking oral lactulose 30 mL 3 times daily and has been having bowel movements anywhere from 4-5 a day. She denies any abdominal pain. Reports no nausea, vomiting. No rectal bleeding or melena. She does complain of some shortness of breath. PAST MEDICAL HISTORY: Significant for diabetes mellitus, hypertension, hyperlipidemia, coronary artery disease, history of seizure disorder, degenerative joint disease, chronic kidney disease. PAST SURGICAL HISTORY: Hysterectomy, multiple surgeries for kidney stones, ear surgery. MEDICATIONS: At home include phenytoin, folic acid, Lopid, Singulair, Prilosec, Mysoline, Symbicort, metoprolol, acetaminophen, calcium, Debrox, Cephulac, Zoloft, Apresoline, melatonin. ALLERGIES: PENICILLIN. SOCIAL HISTORY: No smoking. No alcohol use. FAMILY HISTORY: Mother has diabetes mellitus and hypertension. Father has hypertension. REVIEW OF SYSTEMS: CARDIOPULMONARY: She does complaint of some shortness of breath. GENITOURINARY: No dysuria or hematuria. MUSCULOSKELETAL: Unremarkable. SKIN: Unremarkable. ENDOCRINE: Unremarkable. PSYCHIATRIC: Unremarkable. NEUROLOGY: Unremarkable. ENT/VISION: Unremarkable. CONSTITUTIONAL: No recent weight loss. No fever, chills, night sweats. PHYSICAL EXAMINATION: She appears comfortable. No apparent distress. Vital signs are stable. Blood pressure is 113/55, pulse rate 88, temperature 95.8. HEENT examination unremarkable. Conjunctivae pale. Sclerae anicteric. Oral cavity, no lesions. NECK: No JVD or lymph node enlargement. CHEST: Clear to auscultation. HEART: Regular rate and rhythm. ABDOMEN: Soft. Obese, nontender, nondistended. Liver and spleen were not palpable. No ascites noted. EXTREMITIES: No pedal edema. SKIN; No rashes. NEUROLOGIC: Awake and oriented to name and place but not to time. LABS: Done at the time of admission to the hospital, WBC 7.3, hemoglobin 7.5, platelets are normal at 266. Today hemoglobin is 7.3, MCV is 108, BUN is 60, creatinine 5.15. ALT and AST are normal. Alkaline phosphatase 164, ammonia level 59. Troponin 0.18. IMPRESSION: 1. Macrocytic anemia with clinically no evidence of active ongoing bleeding. Recent lab showed normal vitamin B12 and folate levels. Most likely the anemia is related to underlying chronic liver disease. Of course, possibility of occult gastrointestinal blood loss cannot be completely excluded. The patient does not recall if she had any endoscopic intervention in the last few years. 2. History of hyperammonemia, presently on oral lactulose 30 mL 3 times daily. Repeat serum ammonia level during this hospitalization was 64. 3. Elevated BUN and creatinine consistent with chronic kidney disease stage 4. Nephrology following the patient closely. 4. Longstanding history of diabetes mellitus and hypertension. 5. Exacerbation of chronic obstructive pulmonary disease. RECOMMENDATIONS: 1. We will obtain iron studies to evaluate for iron deficiency. 2. Will review her old records to see if she had any endoscopic intervention in the past. 3. Continue with oral lactulose 30 mL 3 times daily and titrate it so that she has 3-4 soft bowel movements daily. 4. Low-salt diet. 5. Repeat ammonia in the morning. We will follow the patient closely during the hospital stay. Thank you for this consultation. MMODL / IJN: [id number] /
[2019-03-21 17:00] LABS: Glucose,Whole Blood 118 mg/dL (75-99)
[2019-03-21] MEDS: MORPHINE SULFATE 2 MG/ML SYRINGE IV PRN ×2 (17:20→21:38)
[2019-03-21] MEDS: SODIUM CHLORIDE 0.9% 1,000 ML IV SCH ×2 (20:17→20:32)
[2019-03-21 20:26] LABS: Glucose,Whole Blood 143 mg/dL (75-99)
[2019-03-21] MEDS: ACETAMINOPHEN TAB 325 MG TAB PO PRN (20:26)
[2019-03-21] MEDS: MONTELUKAST 10 MG TAB PO SCH (20:27)
[2019-03-21 21:09] LABS: Folate, Serum >24.0 ng/mL
[2019-03-21 21:13] LABS: Hepatitis B Surface Antigen Non-Reactive (Non-Reactive); Hepatitis C IgG Antibody Non-Reactive (Non-Reactive)
[2019-03-22] MEDS: MORPHINE SULFATE 2 MG/ML SYRINGE IV PRN ×3 (01:37→12:30)
[2019-03-22 06:02] LABS: Glucose,Whole Blood 104 mg/dL (75-99)
[2019-03-22] MEDS: CALCIUM ACETATE 667 MG TAB PO SCH ×3 (06:47→16:57)
[2019-03-22] MEDS: SODIUM CHLORIDE 0.9% 1,000 ML IV SCH (06:48)
[2019-03-22 07:26] LABS: Albumin 3.6 g/dL (3.5-5.0); Potassium 4.7 mmol/L (3.5-5.1); Total Bilirubin 0.3 mg/dL (0.2-1.3); Total Protein 6.5 g/dL (6.3-8.2)
[2019-03-22 07:29] LABS: Calcium 6.3 mg/dL (8.4-10.2)
[2019-03-22] MEDS: IPRATROPIUM-ALBUTEROL 3 ML NEB INHALATION PRN ×3 (08:17→19:24)
[2019-03-22] MEDS: SYMBICORT 160-4.5 MCG INHALER INHALATION SCH ×2 (08:17→19:24)
[2019-03-22] MEDS: PANTOPRAZOLE 40 MG TABLET PO SCH (08:56)
[2019-03-22] MEDS: CALCITRIOL 0.25 MCG CAP PO SCH (08:56)
[2019-03-22] MEDS: PHENYTOIN SODIUM EXTENDED 100 MG CAP PO SCH ×3 (08:56→20:14)
[2019-03-22] MEDS: LACTULOSE 20 GM/30 ML CUP PO SCH ×3 (08:56→20:14)
[2019-03-22 09:36] LABS: Anisocytosis Slight; Basophils # (A) 0.1 k/uL (0-0.2); Basophils % (A) 1 %; Eosinophils # (A) 0.1 k/uL (0-0.7); Eosinophils % (A) 2 %; HCT 22.7 % (34.0-46.0); Hypochromasia Marked; Lymphocytes # (A) 0.6 k/uL (1.0-4.8); Lymphocytes % (A) 9 %; MCH 32.4 pg (25.0-35.0); MCV 108.1 fL (80.0-100.0); Macrocytosis Marked; Mean Platelet Volume 7.4; Monocytes # (A) 0.4 k/uL (0-1.0); Monocytes % (A) 6 %; Neutrophils # (A) 4.9 k/uL (1.3-7.7); Neutrophils % (A) 80 %; Platelet Count 244 k/uL (150-450); Poikilocytosis Slight; RDW 16.1 % (11.5-15.5); WBC 6.1 k/uL (3.8-10.6)
[2019-03-22 09:40] LABS: HGB 6.8 gm/dL (11.4-16.0)
--- NOTE | 2019-03-22 11:17 | PN ---
PROGRESS NOTE DATE OF DICTATION: March 22, 2019. The patient is a 64 -year-old pleasant white female admitted to the hospital for shortness of breath. She does have history of chronic obstructive pulmonary disease on home O2 for the last 5 years. During this hospitalization, she was also noted to have anemia with a hemoglobin of 7.5 g/dL. She denies any GI bleed. Reports no abdominal pain. No nausea, vomiting. She was also on noted to have hepatic encephalopathy during her last hospitalization and underwent extensive workup for chronic liver disease and all the workup was negative. She has been started on oral lactulose 30 mL 3 times daily and mentation has been good and during this hospitalization, the ammonia level has been within normal limits. Today, she continues to complain of diffuse pain all over the body. She still feels very short of breath. She had about 3-4 bowel movements yesterday. She reports no bleeding. She recalls having her last EGD colonoscopy more than 5 years ago. PHYSICAL EXAMINATION: Appears comfortable, no apparent distress. Vital signs stable blood pressure is 149/75, pulse rate 96, temperature 98. HEENT examination unremarkable. Conjunctivae pink. Sclerae anicteric. Oral cavity no lesions. Neck no JVD. No lymph node enlargement. Chest was clear to auscultation. HEART: Regular rate and rhythm. ABDOMEN: Soft. Bowel sounds are positive. It was distended. No free fluid noted. EXTREMITIES: No pedal edema. SKIN no rashes. NEUROLOGIC: Alert and oriented x3. No focal deficits. LABS: From yesterday, WBC 6.3, hemoglobin 7.3, platelets are normal. BUN is 61, creatinine 4.89, and hepatitis serologies for A, B and C were negative. Stool for occult blood was negative. IMPRESSION: 1. Macrocytic anemia with clinically no evidence of active ongoing bleeding. In fact, stool Hemoccult was negative. Serum folate and vitamin B12 was negative. Last EGD colonoscopy more than 5 years ago and according to the patient was normal. 2. Elevated ammonia level during last hospitalization, possibly dealing with underlying chronic liver disease, probably related to fatty liver disease, which appears to be stable. Continue on oral lactulose 30 mL 3 times daily. 3. Exacerbation of chronic obstructive pulmonary disease. 4. Morbid obesity. 5. Chronic kidney disease. Nephrology has been consulted. RECOMMENDATIONS: 1. We will obtain iron studies and serum ferritin today. 2. Repeat CBC today. 3. Continue with oral lactulose. 4. If we are dealing with iron deficiency anemia, we will consider GI workup. The plan was discussed with the patient. She is agreeable to it. Thank you for this consultation. MARIAM / LIBERTY: [id number] /
--- NOTE | 2019-03-22 11:47 | PN ---
PROGRESS NOTE Patient is seen for followup for acute kidney injury on top of chronic kidney disease. The patient was admitted with mental status changes. Serum creatinine was up to 5.1. She is currently maintained on IV fluids. She has had good urine output. There was an element of urine retention for which Espinoza catheter was placed. Serum creatinine is slightly improved down to 4.7. Mentation also appears to be better. The patient is maintained on IV fluids. If renal function does not improve further and patient remains confused with asterixis, we will need to start renal replacement therapy tomorrow. PHYSICAL EXAMINATION: On examination today, blood pressure was 124/90, heart rate 99 per minute, patient is afebrile. Examination of the heart S1, S2. Examination of the lungs, bilateral breath sounds are heard. Abdomen is soft, nontender, obese. Examination of the lower extremities shows no significant edema. LABS SHOW: Hemoglobin 6.8 this morning, sodium 139, potassium 4.7, CO2 is 14, BUN 60, creatinine 4.7, serum calcium 6.3. ASSESSMENT: 1. Acute kidney injury on top of chronic kidney disease mostly prerenal, however, most likely an element of acute tubular necrosis as well. Renal function has not improved significantly, although it is better than on admission. Continue IV fluids for now. We will reassess tomorrow for need for dialysis. There was an element of urine retention. Currently patient has a Espinoza catheter. 2. Metabolic acidosis. Change IV fluids to IV bicarb. 3. Mental status changes secondary to uremia. 4. Hypocalcemia most likely associated with chronic kidney disease. Check PTH levels. Check phosphorus and add calcium supplements. 5. Anemia, no active bleeding noted. I will add Aranesp and check iron studies. Last iron saturation was 28% on 03/08/2019. PLAN: Re-evaluate for need for hemodialysis in a.m. Add Aranesp. Repeat iron studies. Continue IV fluids. Change IV fluids to IV bicarb. Check phosphorus. MMODL / IJN: [id number] /
[2019-03-22 11:58] LABS: Glucose,Whole Blood 114 mg/dL (75-99)
--- NOTE | 2019-03-22 12:03 | P.PN ---
Subjective This is a 64-year-old white female well-known to the practice. She was discharged here from [facility] on 03/12/2019 after being admitted for hepatic encephalopathy and acute on chronic renal failure. She returns now with worsening fatigue and increasing confusion. At her previous admission subacute rehabilitation was recommended and refused by the patient and family. Home care was recommended but also refused after discharge by the family. She is complaining of fatigue headache, weakness, nausea, she denies any chest pains, pressures, has chronic shortness of breath with exertion due to COPD. She was seen and examined emergency room with the nurse practitioner. 03/21/2019: Patient was found in her room today asleep. She was arousable. Staff reports that she will not do anything for herself. She remained quite confused and doesn't seem to have any recollection of her's previous hospital stay. She just asked for her 2 sons and wonders where they are. She is unable to answer my questions significantly and is oriented 1 to self only at this time. 03/22/2019: Patient is resting comfortably in the recliner chair. She is awake and alert, and quite anxious. Staff reports that she's been rather needy and concern. Her and I discussed her recovery and the need for rehabilitation after discharge, and her refusal led to her readmission. She indicates his headache is better. She denies any chest pains, pressures, nausea or vomiting. She complains of some shortness of breath with exertion. She is awake alert and oriented 2 today. She had a Espinoza catheter inserted early this morning after she failed to void. Home this morning is down to 6.8. Nephrology and GI are following. Neurology had seen her on Saturday. Their notes were reviewed today. Objective - Vital Signs Vital signs: Vital Signs Temp 97.3 F L 03/21/19 23:45 Pulse 96 03/22/19 08:26 Resp 16 03/22/19 08:00 BP 124/90 03/22/19 08:00 Pulse Ox 99 03/22/19 08:00 Intake & Output 03/21/19 03/22/19 03/22/19 18:59 06:59 18:59 Intake Total 1358 Output Total 350 Balance 1358 -350 Weight 100.4 kg Intake: Intake, IV Titration 800 Amount Sodium Chloride 0.9% 1, 800 000 ml @ 100 mls/hr IV . Q10H BHAVIK Rx#:[id number] Oral 558 Output: Urine 350 Straight 350 Other: Voiding Method Bedside Commode Bedside Commode # Voids 1 1 # Bowel Movements 1 1 - Exam NERAL: Anxious and alert elderly white female who looks older than her stated age NECK: Normal range of motion, supple without lymphadenopathy or JVD, no thyromegaly LUNGS: Breath sounds coarse to auscultation bilaterally and equal. No wheezes rales or rhonchi. Significantly depressed exchange to COPD. HEART: Regular rate and rhythm without murmurs, rubs or gallops.S1S2 Normal ABDOMEN: Soft, mild generalized tenderness noted, normoactive bowel sounds. No guarding, no rebound. No masses appreciated. EXTREMITIES: Normal range of motion, no pitting, +1 edema generalized edema. No clubbing or cyanosis. NEUROLOGICAL: Cranial nerves II through XII grossly intact. Normal speech, gait is untestable due to her weakness. She appears confused compared to her baseline PSYCH: Saddened mood, normal affect. SKIN: Warm, Dry, normal turgor, no rashes or lesions noted. - Labs CBC & Chem 7: 03/22/19 06:38 03/22/19 06:38 Labs: Abnormal Lab Results - Last 24 Hours (Table) 03/21/19 03/21/19 03/21/19 Range/Units 11:27 12:04 16:58 RBC (3.80-5.40) m/uL Hgb (11.4-16.0) gm/dL Hct (34.0-46.0) % MCV (80.0-100.0) fL MCHC (31.0-37.0) g/dL RDW (11.5-15.5) % Lymphocytes # (1.0-4.8) k/uL Macrocytosis Chloride (98-107) mmol/L Carbon Dioxide (22-30) mmol/L BUN (7-17) mg/dL Creatinine (0.52-1.04) mg/dL POC Glucose (mg/dL) 140 H 118 H (75-99) mg/dL Plasma Lactic Acid Jd 0.6 L (0.7-2.0) mmol/L Calcium (8.4-10.2) mg/dL Phosphorus (2.5-4.5) mg/dL Alkaline Phosphatase (38-126) U/L 03/21/19 03/22/19 03/22/19 Range/Units 20:23 06:00 06:38 RBC (3.80-5.40) m/uL Hgb (11.4-16.0) gm/dL Hct (34.0-46.0) % MCV (80.0-100.0) fL MCHC (31.0-37.0) g/dL RDW (11.5-15.5) % Lymphocytes # (1.0-4.8) k/uL Macrocytosis Chloride 110 H (98-107) mmol/L Carbon Dioxide 14 L (22-30) mmol/L BUN 60 H (7-17) mg/dL Creatinine 4.74 H (0.52-1.04) mg/dL POC Glucose (mg/dL) 143 H 104 H (75-99) mg/dL Plasma Lactic Acid Jd (0.7-2.0) mmol/L Calcium 6.3 L* (8.4-10.2) mg/dL Phosphorus (2.5-4.5) mg/dL Alkaline Phosphatase 160 H (38-126) U/L 03/22/19 03/22/19 Range/Units 06:38 10:28 RBC 2.10 L (3.80-5.40) m/uL Hgb 6.8 L* (11.4-16.0) gm/dL Hct 22.7 L (34.0-46.0) % MCV 108.1 H (80.0-100.0) fL MCHC 30.0 L (31.0-37.0) g/dL RDW 16.1 H (11.5-15.5) % Lymphocytes # 0.6 L (1.0-4.8) k/uL Macrocytosis Marked A Chloride (98-107) mmol/L Carbon Dioxide (22-30) mmol/L BUN (7-17) mg/dL Creatinine (0.52-1.04) mg/dL POC Glucose (mg/dL) (75-99) mg/dL Plasma Lactic Acid Jd (0.7-2.0) mmol/L Calcium (8.4-10.2) mg/dL Phosphorus 7.9 H (2.5-4.5) mg/dL Alkaline Phosphatase (38-126) U/L Microbiology - Last 24 Hours (Table) 03/20/19 12:08 Blood Culture - Preliminary Blood No Growth after 24 hours Assessment and Plan (1) Hyperammonemia Current Visit: Yes Status: Acute Code(s): E72.20 - DISORDER OF UREA CYCLE METABOLISM, UNSPECIFIED SNOMED Code(s): 5599853 (2) Hepatic encephalopathy Current Visit: No Status: Acute Code(s): K72.90 - HEPATIC FAILURE, UNSPECIFIED WITHOUT COMA SNOMED Code(s): 35589953 (3) Macrocytic anemia Current Visit: Yes Status: Acute Code(s): D53.9 - NUTRITIONAL ANEMIA, UNSPECIFIED SNOMED Code(s): 08770195 (4) Hypocalcemia Current Visit: Yes Status: Acute Code(s): E83.51 - HYPOCALCEMIA SNOMED Code(s): 3195102 (5) Acute on chronic renal failure Current Visit: No Status: Acute Code(s): N17.9 - ACUTE KIDNEY FAILURE, UNSPECIFIED; N18.9 - CHRONIC KIDNEY DISEASE, UNSPECIFIED SNOMED Code(s): 328072666 (6) Altered mental status Current Visit: No Status: Acute Code(s): R41.82 - ALTERED MENTAL STATUS, UNSPECIFIED SNOMED Code(s): 468182373 (7) Chronic renal disease, stage 4, severely decreased glomerular filtration rate (GFR) between 15-29 mL/min/1.73 square meter Current Visit: No Status: Acute Code(s): N18.4 - CHRONIC KIDNEY DISEASE, STAGE 4 (SEVERE) SNOMED Code(s): 794321001 (8) Dehydration Current Visit: No Status: Acute Code(s): E86.0 - DEHYDRATION SNOMED Code(s): 21956085 (9) Essential (primary) hypertension Current Visit: No Status: Acute Code(s): I10 - ESSENTIAL (PRIMARY) HYPERTENSION SNOMED Code(s): 15147930 (10) Hyperammonemia Current Visit: No Status: Acute Code(s): E72.20 - DISORDER OF UREA CYCLE METABOLISM, UNSPECIFIED SNOMED Code(s): 4140523 (11) Noncompliance Current Visit: No Status: Acute Code(s): Z91.19 - PATIENT'S NONCOMPLIANCE W OTH MEDICAL TREATMENT AND REGIMEN SNOMED Code(s): 6835050 (12) Pure hypercholesterolemia Current Visit: No Status: Acute Code(s): E78.00 - PURE HYPERCHOLESTEROLEMIA, UNSPECIFIED SNOMED Code(s): 992808629 (13) Readmission after hospitalization within last 30 days Current Visit: No Status: Acute Code(s): CFC4897 - SNOMED Code(s): 3 03548386 (14) Seizure disorder Current Visit: No Status: Acute Code(s): G40.909 - EPILEPSY, UNSP, NOT I NTRACTABLE, WITHOUT STATUS EPILEPTICUS SNOMED Code(s): 140602321 (15) COPD (chronic obstructive pulmonary disease) Current Visit: No Status: Acute Code(s): J44.9 - CHRONIC OBSTRUCTIVE PULMONARY DISEASE, UNSPECIFIED SNOMED Code(s): 04948539 Plan: We'll await consult recommendations, possibly dialysis, iron studies. Espinoza catheter to be inserted. Type cross and screen and transfuse 1 unit packed red blood cells. Sample monitor anxiety, to this point to treatment may exacerbate her encephalopathy. Repeat labs in am. Continue supportive care and IV fluids for dehydration. Plan the patient when she is discharged to go to ECF, due to her significant ongoing medical issues. She'll be reevaluated next 24 hours.
[2019-03-22] MEDS: DEXTROSE 5% IN WATER 1,000 ML with SODIUM BICARB (1 MEQ/ML) 150 ML IV SCH ×2 (12:35→19:36)
[2019-03-22] MEDS: DARBEPOETIN ALFA 60 MCG/0.3 ML SYRINGE SQ SCH (16:54)
[2019-03-22 17:17] LABS: Glucose,Whole Blood 106 mg/dL (75-99)
[2019-03-22] MEDS: MONTELUKAST 10 MG TAB PO SCH (20:14)
[2019-03-22] MEDS: CALCIUM CARBONATE 500 MG CHEWABLE PO SCH (20:14)
[2019-03-22 20:38] LABS: Glucose,Whole Blood 104 mg/dL (75-99)
[2019-03-23] MEDS: IPRATROPIUM-ALBUTEROL 3 ML NEB INHALATION PRN ×5 (01:36→20:34)
[2019-03-23] MEDS: CALCIUM ACETATE 667 MG TAB PO SCH ×3 (05:19→17:05)
[2019-03-23 06:25] LABS: Glucose,Whole Blood 100 mg/dL (75-99)
[2019-03-23 06:45] LABS: Anisocytosis Slight; Basophils % (A) 1 %; Eosinophils # (A) 0.1 k/uL (0-0.7); Eosinophils % (A) 2 %; HCT 22.5 % (34.0-46.0); Hypochromasia Moderate; Lymphocytes # (A) 0.4 k/uL (1.0-4.8); Lymphocytes % (A) 8 %; MCH 31.8 pg (25.0-35.0); MCHC 31.3 g/dL (31.0-37.0); Macrocytosis Moderate; Mean Platelet Volume 6.8; Monocytes # (A) 0.3 k/uL (0-1.0); Monocytes % (A) 6 %; Neutrophils # (A) 3.5 k/uL (1.3-7.7); Neutrophils % (A) 81 %; Platelet Count 194 k/uL (150-450); Poikilocytosis Slight; RBC 2.21 m/uL (3.80-5.40); WBC 4.3 k/uL (3.8-10.6)
[2019-03-23 06:47] LABS: MCV 101.6 fL (80.0-100.0)
[2019-03-23 07:00] LABS: Albumin 3.2 g/dL (3.5-5.0); Potassium 3.9 mmol/L (3.5-5.1); Total Bilirubin 0.4 mg/dL (0.2-1.3); Total Protein 5.9 g/dL (6.3-8.2)
[2019-03-23 07:03] LABS: Calcium 6.3 mg/dL (8.4-10.2)
[2019-03-23] MEDS: SYMBICORT 160-4.5 MCG INHALER INHALATION SCH ×2 (08:26→20:34)
[2019-03-23] MEDS: PANTOPRAZOLE 40 MG TABLET PO SCH (09:42)
[2019-03-23] MEDS: LACTULOSE 20 GM/30 ML CUP PO SCH ×3 (09:42→19:48)
[2019-03-23] MEDS: CALCIUM CARBONATE 500 MG CHEWABLE PO SCH ×3 (09:42→19:47)
[2019-03-23] MEDS: PHENYTOIN SODIUM EXTENDED 100 MG CAP PO SCH ×3 (09:42→19:47)
[2019-03-23] MEDS: DEXTROSE 5% IN WATER 1,000 ML with SODIUM BICARB (1 MEQ/ML) 150 ML IV SCH (09:43)
--- NOTE | 2019-03-23 10:48 | P.PN ---
Subjective Patient is seen in follow-up for acute kidney injury on chronic kidney disease. Renal function is a little better however patient is still quite lethargic and complains of generalized edema. She continues to have asterixis as well. She has been voiding. No vomiting or diarrhea. Oral intake is poor. Vital signs are stable. General: The patient appeared well nourished and normally developed. HEENT: Head exam is unremarkable. Neck is without jugular venous distension. LUNGS: Breath sounds decreased. HEART: Rate and Rhythm are regular. First and second heart sounds normal. No murmurs, rubs or gallops. ABDOMEN: Abdominal exam reveals normal bowel sounds. Non-tender and non- distended. No evidence of peritonitis. EXTREMITITES: 1+ edema. Asterixis present. Objective - Vital Signs Vital signs: Vital Signs Temp 97.7 F 03/23/19 03:48 Pulse 100 03/23/19 08:41 Resp 20 03/23/19 03:48 BP 165/72 03/23/19 03:48 Pulse Ox 94 L 03/23/19 03:48 Intake & Output 03/22/19 03/23/19 03/23/19 18:59 06:59 18:59 Intake Total 460 385 Output Total 1200 Balance 460 -815 Weight 102 kg Intake: Intake, IV Titration 75 Amount Dextrose 5% in Water 1, 75 000 ml @ 75 mls/hr IV . [id number] BHAVIK with Sodium Bicarb (1 Meq/ml) 150 ml Rx#:[id number] Oral 460 Blood Product 0 310 Rc As-1 Unit 0 310 [id number] Output: Urine 1200 Other: Voiding Method Bedside Commode Bedside Commode # Voids 1 # Bowel Movements 2 - Labs CBC & Chem 7: 03/23/19 06:17 03/23/19 06:17 Labs: Abnormal Lab Results - Last 24 Hours (Table) 03/22/19 03/22/19 03/22/19 Range/Units : 10: 11:50 RBC (3.80-5.40) m/uL Hgb (11.4-16.0) gm/dL Hct (34.0-46.0) % MCV (80.0-100.0) fL RDW (11.5-15.5) % Lymphocytes # (1.0-4.8) k/uL Chloride (98-107) mmol/L Carbon Dioxide (22-30) mmol/L BUN (7-17) mg/dL Creatinine (0.52-1.04) mg/dL POC Glucose (mg/dL) 114 H (75-99) mg/dL Calcium (8.4-10.2) mg/dL Phosphorus 7.9 H (2.5-4.5) mg/dL Alkaline Phosphatase (38-126) U/L Total Protein (6.3-8.2) g/dL Albumin (3.5-5.0) g/dL Crossmatch See Detail 03/22/19 03/22/19 03/23/19 Range/Units 16:57 20:37 06:17 RBC (3.80-5.40) m/uL Hgb (11.4-16.0) gm/dL Hct (34.0-46.0) % MCV (80.0-100.0) fL RDW (11.5-15.5) % Lymphocytes # (1.0-4.8) k/uL Chloride 110 H (98-107) mmol/L Carbon Dioxide 18 L (22-30) mmol/L BUN 62 H (7-17) mg/dL Creatinine 4.18 H (0.52-1.04) mg/dL POC Glucose (mg/dL) 106 H 104 H (75-99) mg/dL Calcium 6.3 L* (8.4-10.2) mg/dL Phosphorus (2.5-4.5) mg/dL Alkaline Phosphatase 134 H (38-126) U/L Total Protein 5.9 L (6.3-8.2) g/dL Albumin 3.2 L (3.5-5.0) g/dL Crossmatch 03/23/19 03/23/19 Range/Units 06:17 06:24 RBC 2.21 L (3.80-5.40) m/uL Hgb 7.0 L (11.4-16.0) gm/dL Hct 22.5 L (34.0-46.0) % MCV 101.6 H D (80.0-100.0) fL RDW 17.0 H (11.5-15.5) % Lymphocytes # 0.4 L (1.0-4.8) k/uL Chloride (98-107) mmol/L Carbon Dioxide (22-30) mmol/L BUN (7-17) mg/dL Creatinine (0.52-1.04) mg/dL POC Glucose (mg/dL) 100 H (75-99) mg/dL Calcium (8.4-10.2) mg/dL Phosphorus (2.5-4.5) mg/dL Alkaline Phosphatase (38-126) U/L Total Protein (6.3-8.2) g/dL Albumin (3.5-5.0) g/dL Crossmatch Microbiology - Last 24 Hours (Table) 03/20/19 12:08 Blood Culture - Preliminary Blood No Growth after 48 hours 03/21/19 11:27 Blood Culture - Preliminary Blood No Growth after 24 hours Assessment and Plan Plan: Assessment: 1. Acute kidney injury mostly prerenal improving with IV hydration. However the patient is now hypervolemic. Also component of urinary retention. Creatinine 4.18 today. 2. Mild volume overload. 3. Chronic kidney disease stage IV with baseline creatinine in the range of 2.5-3. 4. Hypocalcemia secondary to chronic kidney disease maintained on PhosLo, Tums and calcitriol. 5. Anemia of chronic kidney disease. Rule out iron deficiency. Maintained on Aranesp. GI also following. No active bleeding. 6. Metabolic acidosis secondary to chronic kidney disease. Better. 7. Urinary retention status post Espinoza catheter placement. 8. Encephalopathy which is multifactorial in nature. Partially due to uremia. 9. Systolic CHF with ejection fraction of 45-50%. Plan: Consults vascular surgery for dialysis catheter placement. Plan for first treatment of hemodialysis tomorrow. Patient is in agreement. Follow-up iron studies. Follow-up serologies. Decreased rate of bicarbonate drip to 50 mL an hour. 1 g of IV calcium gluconate today.
[2019-03-23] MEDS ORDERED: CALCIUM GLUCONATE 1 GM in SODIUM CHLORIDE 0.9% 100 ML IVPB ONE (11:30)
[2019-03-23 12:11] LABS: Glucose,Whole Blood 112 mg/dL (75-99)
[2019-03-23 12:22] LABS: % Iron Saturation 34.15 (12.00-45.00)
[2019-03-23 12:31] LABS: Ferritin 79.3 ng/mL (10.0-291.0)
--- NOTE | 2019-03-23 12:31 | P.PN ---
Progress Note - Text Progress Note Date: 03/23/19 SUBJECTIVE/INTERVAL EVENTS: No acute overnight events. RN states that patient was snoring when she came to work this morning. Patient found sleeping in a chair, does open eyes to verbal stimuli and respond appropriately but slow and very drowsy. When patient woken up more by therapists, patient responds more readily. States her headache is 10/10, holocephalic. Denies blurry vision, nausea or vomiting. Endorses photophobia and some phonophobia with her headaches. Patient endorsed 10/10 headache when initially seen by neurology, and stated that it was nothing new to her. Previous neuro consult note on 03/20/2019: Patient is a 64-year-old female who states that she came to the hospital because she was having bad headache and sore throat. Patient states the symptoms started couple days ago. On asking detailed history about headaches, patient states that she has had headaches for "years". Patient states that her current headache is 10 over 10, but she has had headaches 10/10 in the past, nothing new for her. Patient is extremely hard of hearing, very difficult to obtain history. Family members not available. Patient states she lives with her son. Patient denies any focal symptoms. Patient underwent chest x-ray which revealed underlying fibrotic changes. Increase patchy density right lower lobe may reflect developing pneumonia. Correlate clinically. KUB showed non-obstructive bowel gas pattern. EKG shows normal sinus rhythm with LBBB. Patient had a CT of the head performed on 03/12/2019 for "headache". It revealed degenerative and nonspecific white matter changes most typical of remote microvascular ischemia. No acute hemorrhage. Partially empty sella turcica. History of right mastoidectomy. On my review, there is some mucosal thickening of the ethmoid air sinuses but the maxillary, sphenoid and frontal sinuses are clear. Patient had a carotid Doppler performed previously 11/30/2015 which revealed intimal thickening bilaterally. No significant stenosis. Antegrade flow in both vertebral artery. Patient had a normal EEG on 02/20/2018. Patient's last 2-D echo from 12/01/2018 showed sinus rhythm. Mid septal hypokinesis. Normal left atrial size. EF 45-50%. Patient's blood test shows worsening of renal function with BUN 68, creatinine 5.15. His is worse than baseline. Calcium is low 6.1. Ionized calcium 3.5, which is also low. Patient's last hemoglobin A1c 4.6 on 03/10/2019. Total cholesterol 190, LDL 120, HDL 48. B12 196 on 02/19/2018. TSH 1.75 on 02/19/2018. PTH was significantly elevated 992 on 07/16/2018. Patient's ammonia was elevated 59 on 03/20/2019 although few days before was normal at 9. Past Medical History Past Medical History: COPD, Diabetes Mellitus, GERD/Reflux, Hyperlipidemia, Hypertension, Osteoarthritis (OA), Pneumonia, Respiratory Disorder, Seizure Disorder, Vascular Disorder Additional Past Medical History / Comment(s): Pt recently admitted to [facility] on 03/07/19 with hepatic encephalopathy/chronic liver disease probably d/t fatty liver advancing to chronic liver disease with possible cirrhosis/acute on chronic renal failure/acute on chronic COPD, AMS d/t elevated ammonia levels/metabolic acidosis/ electrolyte disturbances. Other hx: High ammonia levels, chronic liver disease, kidney stones, CKD stage IV, chronic respiratory failure with home O2 at 4L/NC, NIDDM type II, neuropathy bilateral feet, IBS, arthritis in multiple joints, chronic back pain, current problems with weakness, generalized edema. History of Any Multi-Drug Resistant Organisms: None Reported Past Surgical History: Ear Surgery, Hysterectomy, Orthopedic Surgery Additional Past Surgical History / Comment(s): Multiple surgeries/ESWL for kidney stones, bilateral caratid endartectomies, L ankle surgery with metal esteban/pin, R ear surgery for deteriorating eardrum, sinus surgery, colonoscopy. Past Anesthesia/Blood Transfusion Reactions: No Reported Reaction Smoking Status: Former smoker - Past Family History Mother Family Medical History: Diabetes Mellitus, Hypertension Father Family Medical History: Hypertension PHYSICAL EXAMINATION: VITAL SIGNS: T 97.7 HR 95 RR 20 BP 165/72 O2 sat 94% on 4L via NC GEN.: drowsy but opens eyes to verbal stimuli and answers questions HEENT: NCAT NECK: Supple SKIN AND EXTREMITIES: Warm to touch NEURO: MENTAL STATUS: Patient alert and oriented to self, place, time. CRANIAL NERVES II THROUGH XII: II: Pupils are equal and reactive to light symmetrically. BTT bilaterally. III, IV, : Tracks appropriately VII. No clear facial asymmetry. XI: Shoulder shrug intact. XII: Tongue midline without fasciculation or atrophy. MOTOR: At least antigravity in all 4 extremities. SENSORY: Intact to light touch in all 4 extremities. COORDINATION/GAIT: Deferred due to patient's drowsiness MEDICATIONS: Inpatient: Calcitriol, Pantoprazole, Phenytoin, Calcium, Budenoside, Montelukast, Lactulose, Darbepoetin DIAGNOSTICS: Laboratory: B12 262.0, methylmalonic acid pending, folic acid >24 Ceruloplasmin 32.8 Copper pending ESR 93 and CRP 14.9 Imaging: CT head without contrast 03/12/2019: Degenerative and nonspecific white matter changes most typical of remote microvascular ischemia. No acute hemorrhage. Partially O Persico. Right mastoidectomy ASSESSMENT and PLAN: Patient is a 64-year-old female with PMHx of COPD, Diabetes Mellitus, GERD/Reflux, Hyperlipidemia, Hypertension, Osteoarthritis (OA), Pneumonia, Respiratory Disorder, Seizure Disorder, Vascular Disorder, hyperparathyroidism, anemia, vitamin B12 deficiency, presented to [facility] for generalized weakness and sore throat/congestion. Altered mental status, likely due to toxic metabolic encephalopathy, multifactorial. Patient's worsening renal functions, dehydration, significant anemia, hypocalcemia and hyperammonemia are the likely causes. Patient has chronic headaches. She has obesity. CT of the head revealed empty sella. - Consider lumbar puncture to evaluate for opening pressure to rule out pseudotumor cerebri but patient denies any blurry vision ever. - Patient can be seen by an guidance adviser as outpatient also to rule out any evidence of papilledema. Headaches could also be tension type or from her hx of sinus disease. - ESR 93 and CRP 14.9 are both elevated, but patient with no pain in the temporal region to palpation bilaterally and no visual deficits. - Routine EEG (pt with previous seizure disorder and currently with AMS) - Primary team to continue with medical management for evaluation and treatment of other medical conditions. - Repeat ammonia - Neurology will continue to follow
[2019-03-23 13:14] LABS: Urine Alcohol Negative (Negative); Urine Barbiturate Positive (Negative); Urine Cocaine Negative (Negative); Urine Methadone Negative (Negative); Urine Opiates Positive (Negative); Urine Phencyclidine Negative (Negative)
[2019-03-23 15:29] LABS: C-ANCA <1:20 Titer (<1:20)
--- NOTE | 2019-03-23 16:29 | P.PN ---
Subjective Progress Note Date: 03/23/19 This is a 64-year-old white female well-known to the practice. She was discharged here from [facility] on 03/12/2019 after being admitted for hepatic encephalopathy and acute on chronic renal failure. She returns now with worsening fatigue and increasing confusion. At her previous admission subacute rehabilitation was recommended and refused by the patient and family. Home care was recommended but also refused after discharge by the family. She is complaining of fatigue headache, weakness, nausea, she denies any chest pains, pressures, has chronic shortness of breath with exertion due to COPD. She was seen and examined emergency room with the nurse practitioner. 03/21/2019: Patient was found in her room today asleep. She was arousable. Staff reports that she will not do anything for herself. She remained quite confused and doesn't seem to have any recollection of her's previous hospital stay. She just asked for her 2 sons and wonders where they are. She is unable to answer my questions significantly and is oriented 1 to self only at this time. 03/22/2019: Patient is resting comfortably in the recliner chair. She is awake and alert, and quite anxious. Staff reports that she's been rather needy and concern. Her and I discussed her recovery and the need for rehabilitation after discharge, and her refusal led to her readmission. She indicates his headache is better. She denies any chest pains, pressures, nausea or vomiting. She complains of some shortness of breath with exertion. She is awake alert and oriented 2 today. She had a Espinoza catheter inserted early this morning after she failed to void. Home this morning is down to 6.8. Nephrology and GI are following. Neurology had seen her on Saturday. Their notes were reviewed today. 03/22/2019 dialysis catheter placement pending for today with initiation of dialysis. Sitting up in chair, fluid overloaded, lethargic. Ammonia 38. Hemoglobin 7. Creatinine down to 4.18. CO2 18 .Maintained on bicarb drip. Neurology evaluation in progress, recommendations pending. Denies nausea vomiting or diarrhea. Diet intake fair, fluctuates. Calcium 6.3, calcium gluconate ordered. Iron studies pending. Objective - Vital Signs Vital signs: Vital Signs Temp 98.9 F 03/23/19 08:00 Pulse 105 H 03/23/19 12:00 Resp 22 03/23/19 12:00 BP 164/78 03/23/19 12:00 Pulse Ox 97 03/23/19 12:00 Intake & Output 03/22/19 03/23/19 03/23/19 18:59 06:59 18:59 Intake Total 460 385 Output Total 1200 Balance 460 -815 Weight 102 kg Intake: Intake, IV Titration 75 Amount Dextrose 5% in Water 1, 75 000 ml @ 75 mls/hr IV . [id number] BHAVIK with Sodium Bicarb (1 Meq/ml) 150 ml Rx#:[id number] Oral 460 Blood Product 0 310 Rc As-1 Unit 0 310 [id number] Output: Urine 1200 Other: Voiding Method Bedside Commode Bedside Commode # Voids 1 # Bowel Movements 2 - Exam GENERAL: Sitting up in chair, Fatigued, respiratory effort increased HEAD: Atraumatic, normocephalic. EYES: Pupils equal round and reactive to light, extraocular movements intact, sclera anicteric, conjunctiva are normal. ENT:nares patent, oropharynx clear without exudates. Moist mucous membranes. NECK: Normal range of motion, supple without lymphadenopathy or JVD, no thyromegaly LUNGS: Breath sounds coarse e to auscultation bilaterally and equal. No wheezes rales or rhonchi. HEART: Regular rate and rhythm without murmurs, rubs or gallops.S1S2 Normal ABDOMEN: Soft, nondistended, nontender, normoactive bowel sounds. No guarding, no rebound. No masses appreciated. EXTREMITIES: Normal range of motion, no pitting, +1 edema generalized edema. No clubbing or cyanosis. Positive asterixis. NEUROLOGICAL: Cranial nerves II through XII grossly intact. Normal speech, gait is untestable due to her weakness. She appears confused compared to her baseline SKIN: Warm, Dry, normal turgor, no rashes or lesions noted. Microbiology 03/20/19 12:08 Blood Blood Culture - Preliminary No Growth after 72 hours 03/21/19 11:27 Blood Blood Culture - Preliminary No Growth after 48 hours - Labs CBC & Chem 7: 03/23/19 06:17 03/23/19 06:17 Labs: Abnormal Lab Results - Last 24 Hours (Table) 03/22/19 03/22/19 03/22/19 Range/Units 10: 10: 16:57 RBC (3.80-5.40) m/uL Hgb (11.4-16.0) gm/dL Hct (34.0-46.0) % MCV (80.0-100.0) fL RDW (11.5-15.5) % Lymphocytes # (1.0-4.8) k/uL Chloride (98-107) mmol/L Carbon Dioxide (22-30) mmol/L BUN (7-17) mg/dL Creatinine (0.52-1.04) mg/dL POC Glucose (mg/dL) 106 H (75-99) mg/dL Calcium (8.4-10.2) mg/dL Alkaline Phosphatase (38-126) U/L Total Protein (6.3-8.2) g/dL Albumin (3.5-5.0) g/dL PTH Intact 1161.2 H (14.0-72.0) pg/mL Crossmatch See Detail 03/22/19 03/23/19 03/23/19 Range/Units 20:37 06:17 06:17 RBC 2.21 L (3.80-5.40) m/uL Hgb 7.0 L (11.4-16.0) gm/dL Hct 22.5 L (34.0-46.0) % MCV 101.6 H D (80.0-100.0) fL RDW 17.0 H (11.5-15.5) % Lymphocytes # 0.4 L (1.0-4.8) k/uL Chloride 110 H (98-107) mmol/L Carbon Dioxide 18 L (22-30) mmol/L BUN 62 H (7-17) mg/dL Creatinine 4.18 H (0.52-1.04) mg/dL POC Glucose (mg/dL) 104 H (75-99) mg/dL Calcium 6.3 L* (8.4-10.2) mg/dL Alkaline Phosphatase 134 H (38-126) U/L Total Protein 5.9 L (6.3-8.2) g/dL Albumin 3.2 L (3.5-5.0) g/dL PTH Intact (14.0-72.0) pg/mL Crossmatch 03/23/19 03/23/19 Range/Units 06:24 11:51 RBC (3.80-5.40) m/uL Hgb (11.4-16.0) gm/dL Hct (34.0-46.0) % MCV (80.0-100.0) fL RDW (11.5-15.5) % Lymphocytes # (1.0-4.8) k/uL Chloride (98-107) mmol/L Carbon Dioxide (22-30) mmol/L BUN (7-17) mg/dL Creatinine (0.52-1.04) mg/dL POC Glucose (mg/dL) 100 H 112 H (75-99) mg/dL Calcium (8.4-10.2) mg/dL Alkaline Phosphatase (38-126) U/L Total Protein (6.3-8.2) g/dL Albumin (3.5-5.0) g/dL PTH Intact (14.0-72.0) pg/mL Crossmatch Microbiology - Last 24 Hours (Table) 03/20/19 12:08 Blood Culture - Preliminary Blood No Growth after 48 hours 03/21/19 11:27 Blood Culture - Preliminary Blood No Growth after 24 hours Assessment and Plan Assessment: (1) Macrocytic anemia, iron studies pending, suspect of chronic disease Current Visit: Yes Status: Acute Code(s): D53.9 - NUTRITIONAL ANEMIA, UNSPECIFIED SNOMED Code(s): 10323313 (2) Hyperammonemia Current Visit: Yes Status: Acute Code(s): E72.20 - DISORDER OF UREA CYCLE METABOLISM, UNSPECIFIED SNOMED Code(s): 9430928 (3) Hypocalcemia secondary to kidney disease Current Visit: Yes Status: Acute Code(s): E83.51 - HYPOCALCEMIA SNOMED Code(s): 0833277 (4) Acute on chronic renal failure, stage IV. Acute, prerenal. Current Visit: No Status: Acute Code(s): N17.9 - ACUTE KIDNEY FAILURE, UNS PECIFIED; N18.9 - CHRONIC KIDNEY DISEASE, UNSPECIFIED SNOMED Code(s): 236 572113 (5) Altered mental status Current Visit: No Status: Acute Code(s): R41.82 - ALTERED MENTAL STATUS, UNSPECIFIED SNOMED Code(s): 163143563 (6) Chronic renal disease, stage 4, severely decreased glomerular filtration rate (GFR) between 15-29 mL/min/1.73 square meter Current Visit: No Status: Acute Code(s): N18.4 - CHRONIC KIDNEY DISEASE, STAGE 4 (SEVERE) SNOMED Code(s): 174173614 (7) Dehydration Current Visit: No Status: Acute Code(s): E86.0 - DEHYDRATION SNOMED Code(s): 89017665 (8) Essential (primary) hypertension Current Visit: No Status: Acute Code(s): I10 - ESSENTIAL (PRIMARY) HYPERTENSION SNOMED Code(s): 68871453 (9) Hepatic encephalopathy Current Visit: No Status: Acute Code(s): K72.90 - HEPATIC FAILURE, UNSPECIFIED WITHOUT COMA SNOMED Code(s): 10979692 (10) Hyperammonemia Current Visit: No Status: Acute Code(s): E72.20 - DISORDER OF UREA CYCLE METABOLISM, UNSPECIFIED SNOMED Code(s): 8215893 (11) Noncompliance Current Visit: No Status: Acute Code(s): Z91.19 - PATIENT'S NONCOMPLIANCE W OTH MEDICAL TREATMENT AND REGIMEN SNOMED Code(s): 7022523 (12) Pure hypercholesterolemia Current Visit: No Status: Acute Code(s): E78.00 - PURE HYPERCHOLESTEROLEMIA, UNSPECIFIED SNOMED Code(s): 229310542 (13) Readmission after hospitalization within last 30 days Current Visit: No Status: Acute Code(s): TWA1194 - SNOMED Code(s): 491167570 (14) Seizure disorder Current Visit: No Status: Acute Code(s): G40.909 - EPILEPSY, UNSP, NOT INTRACTABLE, WITHOUT STATUS EPILEPTICUS SNOMED Code(s): 683635511 Plan: Continue on current medication regime ,monitoring and symptomatic treatment. Bicarb drip rate decreased, dialysis catheter scheduled to be placed today with pending hemodialysis. Repeat labs in a.m. neurology evaluation/dionte mmendations in progress .patient will require subacute rehab at discharge; previously declined on last admmission. The impression and plan of care has been dictated as directed. : I performed a history and examination of this patient, discussed the same with the dictator. I agree with the dictator's note ,documented as a scribe. Any additional findings or plans will be noted.
[2019-03-23 17:15] LABS: Glucose,Whole Blood 128 mg/dL (75-99)
--- NOTE | 2019-03-23 18:55 | PN ---
PROGRESS NOTE DATE OF DISCHARGE: 03/23/2019 The patient is a 64-year-old pleasant female admitted to the hospital with shortness of breath and altered mental status. She denies any symptoms today. Most of the time she is very drowsy and sleepy all through the interview. Family was present at the bedside. Apparently she has been sleeping most of the day since morning. She reports no abdominal pain. Reports no nausea, vomiting. Tolerating diet well. She remains on oral lactulose 30 mL 3 times daily for hepatic encephalopathy. Her repeat serum ammonia level this morning is 38. PHYSICAL EXAMINATION: She appears comfortable. No apparent distress. VITAL SIGNS: Stable. Blood pressure is 164/78, pulse rate 89, temperature 98.1. HEENT examination unremarkable. Conjunctivae pink. Sclerae anicteric. Oral cavity no lesions. NECK: No JVD or lymph node enlargement. CHEST: Clear to auscultation. HEART: Regular rate and rhythm. ABDOMEN: Very obese. Bowel sounds are positive. No organomegaly. It was soft, non- distended, non-tender. EXTREMITIES: No pedal edema. SKIN: No rashes. NEUROLOGIC: She is very sleepy and drowsy but very easily arousable and answers simple questions. LABS: Labs from today show WBC 4.2, hemoglobin 7, platelets 194, BUN 62, creatinine 4.18. Iron indices show a ferritin of 79 and iron saturation is 34%. Ammonia level is 38. AST and ALT are 23 and 19, respectively. T-bilirubin and alkaline phosphatase are 0.4 and 134, respectively. Serum albumin is 3.2. IMPRESSION: 1. Altered mental status, for which Neurology is following the patient closely. Her repeat ammonia level is 34. She does have history of hepatic encephalopathy, currently maintained on oral lactulose 30 mL 3 times daily and she had about 4 bowel movements today. As mentioned above, repeat ammonia level is 34. Patient does have history of hepatic encephalopathy. However, her ammonia levels are within normal limits and she has been taking oral lactulose 30 mL 3 times daily. Her encephalopathy appears multifactorial and possibly there is a component of uremia related to chronic kidney disease. 2. Severe symptomatic anemia with macrocytosis and a hemoglobin of 6.8 yesterday. Clinically no evidence of active bleeding. Received one unit of PRBC transfusion and repeat CBC is 7.0. Iron indices are not consistent with iron deficiency anemia. Most likely we are dealing with anemia of chronic disease. She is maintained on Aranesp. 3. Chronic obstructive pulmonary disease, on home oxygen. 4. Chronic kidney disease, stage IV. Nephrology is following the patient closely. 5. Congestive heart failure. 6. Hypocalcemia. RECOMMENDATIONS: I had a lengthy discussion with the patient's family who is at the bedside. At this time in regard to anemia, no indication to proceed with an EGD or colonoscopy. If she drops her hemoglobin, transfuse her as needed and continue with oral lactulose 30 mL 3 times daily and monitor serum ammonia level on a close basis. Thank you for this consultation. MMODL / IJN: [id number] /
[2019-03-23] MEDS: MONTELUKAST 10 MG TAB PO SCH (19:47)
[2019-03-23] MEDS: MORPHINE SULFATE 2 MG/ML SYRINGE IV PRN (19:48)
[2019-03-23 20:17] LABS: Hepatitis B Surface AB- Quant 3.5 mIU/mL; Hepatitis B Surface Antibody Non-Reactive (Non-Reactive); Hepatitis B Surface Antigen Non-Reactive (Non-Reactive)
[2019-03-23 20:21] LABS: Glucose,Whole Blood 142 mg/dL (75-99)
[2019-03-24] MEDS: MORPHINE SULFATE 2 MG/ML SYRINGE IV PRN (03:27)
[2019-03-24] MEDS: ACETAMINOPHEN TAB 325 MG TAB PO PRN (03:27)
[2019-03-24] MEDS: CALCIUM ACETATE 667 MG TAB PO SCH ×3 (06:13→19:11)
[2019-03-24 06:14] LABS: Glucose,Whole Blood 109 mg/dL (75-99)
[2019-03-24] MEDS: DEXTROSE 5% IN WATER 1,000 ML with SODIUM BICARB (1 MEQ/ML) 150 ML IV SCH ×2 (06:14→10:05)
[2019-03-24 06:26] LABS: Anisocytosis Slight; Basophils # (A) 0.1 k/uL (0-0.2); Basophils % (A) 1 %; Eosinophils # (A) 0.1 k/uL (0-0.7); Eosinophils % (A) 2 %; HCT 24.3 % (34.0-46.0); HGB 7.6 gm/dL (11.4-16.0); Hypochromasia Moderate; Lymphocytes # (A) 0.6 k/uL (1.0-4.8); Lymphocytes % (A) 11 %; MCH 31.6 pg (25.0-35.0); MCHC 31.3 g/dL (31.0-37.0); MCV 100.9 fL (80.0-100.0); Macrocytosis Slight; Mean Platelet Volume 6.5; Monocytes # (A) 0.4 k/uL (0-1.0); Monocytes % (A) 6 %; Neutrophils # (A) 4.4 k/uL (1.3-7.7); Neutrophils % (A) 77 %; Platelet Count 228 k/uL (150-450); Poikilocytosis Slight; RBC 2.41 m/uL (3.80-5.40); RDW 17.1 % (11.5-15.5); WBC 5.7 k/uL (3.8-10.6)
[2019-03-24 06:34] LABS: Albumin 3.4 g/dL (3.5-5.0); Calcium 6.5 mg/dL (8.4-10.2); Potassium 4.1 mmol/L (3.5-5.1); Total Bilirubin 0.3 mg/dL (0.2-1.3); Total Protein 6.1 g/dL (6.3-8.2)
[2019-03-24] MEDS: IPRATROPIUM-ALBUTEROL 3 ML NEB INHALATION PRN ×3 (08:34→15:40)
[2019-03-24] MEDS: SYMBICORT 160-4.5 MCG INHALER INHALATION SCH ×2 (08:37→21:03)
[2019-03-24] MEDS: CALCIUM CARBONATE 500 MG CHEWABLE PO SCH ×2 (10:07→22:29)
[2019-03-24] MEDS: CALCITRIOL 0.25 MCG CAP PO SCH (10:07)
[2019-03-24] MEDS: PANTOPRAZOLE 40 MG TABLET PO SCH (10:08)
[2019-03-24] MEDS: PHENYTOIN SODIUM EXTENDED 100 MG CAP PO SCH ×3 (10:08→21:42)
[2019-03-24] MEDS: hydrALAZINE HCL 50 MG TAB PO SCH ×3 (10:08→21:42)
[2019-03-24] MEDS: LACTULOSE 20 GM/30 ML CUP PO SCH ×3 (10:08→21:42)
[2019-03-24] MEDS ORDERED: CALCIUM GLUCONATE 1 GM in SODIUM CHLORIDE 0.9% 100 ML IVPB ONE (11:00)
--- NOTE | 2019-03-24 11:20 | P.PN ---
Subjective Patient is seen in follow-up for acute kidney injury on chronic kidney disease. Renal function is about the same as yesterday. She continues to have asterixis as well. She has been voiding. No vomiting or diarrhea. Oral intake is poor. Complaining of lower extremity edema. Vital signs are stable. General: The patient appeared well nourished and normally developed. HEENT: Head exam is unremarkable. Neck is without jugular venous distension. LUNGS: Breath sounds decreased. HEART: Rate and Rhythm are regular. First and second heart sounds normal. No murmurs, rubs or gallops. ABDOMEN: Abdominal exam reveals normal bowel sounds. Soft. Mild tenderness. EXTREMITITES: 1+ edema. Asterixis present. Objective - Vital Signs Vital signs: Vital Signs Temp 97.9 F 03/24/19 08:00 Pulse 100 03/24/19 08:55 Resp 24 03/24/19 08:00 BP 197/79 03/24/19 08:00 Pulse Ox 93 L 03/24/19 08:00 Intake & Output 03/23/19 03/24/19 03/24/19 18:59 06:59 18:59 Intake Total 1160 120 120 Output Total 522 312 6658 Balance 360 -730 -880 Weight 100.6 kg Intake: Intake, IV Titration 500 Amount Calcium Gluconate 1 gm In 100 Sodium Chloride 0.9% 100 ml @ 100 mls/hr IVPB ONCE ONE Rx#:[id number] Dextrose 5% in Water 1, 400 000 ml @ 50 mls/hr IV . Q23H BHAVIK with Sodium Bicarb (1 Meq/ml) 150 ml Rx#:[id number] Oral 660 120 120 Output: Urine 286 486 9146 Other: # Voids 3 # Bowel Movements 2 1 0 - Labs CBC & Chem 7: 03/24/19 05:34 03/24/19 05:34 Labs: Abnormal Lab Results - Last 24 Hours (Table) 03/21/19 03/22/19 03/22/19 Range/Units 06:27 10:28 17:52 RBC (3.80-5.40) m/uL Hgb (11.4-16.0) gm/dL Hct (34.0-46.0) % MCV (80.0-100.0) fL RDW (11.5-15.5) % Lymphocytes # (1.0-4.8) k/uL Chloride (98-107) mmol/L Carbon Dioxide (22-30) mmol/L BUN (7-17) mg/dL Creatinine (0.52-1.04) mg/dL Glucose (74-99) mg/dL POC Glucose (mg/dL) (75-99) mg/dL Calcium (8.4-10.2) mg/dL Alkaline Phosphatase (38-126) U/L Ammonia (<30) umol/L Total Protein (6.3-8.2) g/dL Albumin (3.5-5.0) g/dL Methylmalonic Acid 0.68 H (<0.40) umol/L PTH Intact 1161.2 H (14.0-72.0) pg/mL Urine Opiates Screen Positive H (Negative) ng/mL Urine Barbiturates Positive H (Negative) ng/mL 03/23/19 03/23/19 03/23/19 Range/Units 11:51 13:01 16:55 RBC (3.80-5.40) m/uL Hgb (11.4-16.0) gm/dL Hct (34.0-46.0) % MCV (80.0-100.0) fL RDW (11.5-15.5) % Lymphocytes # (1.0-4.8) k/uL Chloride (98-107) mmol/L Carbon Dioxide (22-30) mmol/L BUN (7-17) mg/dL Creatinine (0.52-1.04) mg/dL Glucose (74-99) mg/dL POC Glucose (mg/dL) 112 H 128 H (75-99) mg/dL Calcium (8.4-10.2) mg/dL Alkaline Phosphatase (38-126) U/L Ammonia 38 H (<30) umol/L Total Protein (6.3-8.2) g/dL Albumin (3.5-5.0) g/dL Methylmalonic Acid (<0.40) umol/L PTH Intact (14.0-72.0) pg/mL Urine Opiates Screen (Negative) ng/mL Urine Barbiturates (Negative) ng/mL 03/23/19 03/24/19 03/24/19 Range/Units 20:20 05:34 05:34 RBC 2.41 L (3.80-5.40) m/uL Hgb 7.6 L (11.4-16.0) gm/dL Hct 24.3 L (34.0-46.0) % MCV 100.9 H (80.0-100.0) fL RDW 17.1 H (11.5-15.5) % Lymphocytes # 0.6 L (1.0-4.8) k/uL Chloride 111 H (98-107) mmol/L Carbon Dioxide 21 L (22-30) mmol/L BUN 63 H (7-17) mg/dL Creatinine 4.09 H (0.52-1.04) mg/dL Glucose 101 H (74-99) mg/dL POC Glucose (mg/dL) 142 H (75-99) mg/dL Calcium 6.5 L (8.4-10.2) mg/dL Alkaline Phosphatase 129 H (38-126) U/L Ammonia (<30) umol/L Total Protein 6.1 L (6.3-8.2) g/dL Albumin 3.4 L (3.5-5.0) g/dL Methylmalonic Acid (<0.40) umol/L PTH Intact (14.0-72.0) pg/mL Urine Opiates Screen (Negative) ng/mL Urine Barbiturates (Negative) ng/mL 03/24/19 Range/Units 06:13 RBC (3.80-5.40) m/uL Hgb (11.4-16.0) gm/dL Hct (34.0-46.0) % MCV (80.0-100.0) fL RDW (11.5-15.5) % Lymphocytes # (1.0-4.8) k/uL Chloride (98-107) mmol/L Carbon Dioxide (22-30) mmol/L BUN (7-17) mg/dL Creatinine (0.52-1.04) mg/dL Glucose (74-99) mg/dL POC Glucose (mg/dL) 109 H (75-99) mg/dL Calcium (8.4-10.2) mg/dL Alkaline Phosphatase (38-126) U/L Ammonia (<30) umol/L Total Protein (6.3-8.2) g/dL Albumin (3.5-5.0) g/dL Methylmalonic Acid (<0.40) umol/L PTH Intact (14.0-72.0) pg/mL Urine Opiates Screen (Negative) ng/mL Urine Barbiturates (Negative) ng/mL Microbiology - Last 24 Hours (Table) 03/20/19 12:08 Blood Culture - Preliminary Blood No Growth after 72 hours 03/21/19 11:27 Blood Culture - Preliminary Blood No Growth after 48 hours Assessment and Plan Plan: Assessment: 1. Acute kidney injury mostly prerenal improved with IV hydration. However the patient is now hypervolemic. Also component of urinary retention. Renal function not much improved. Creatinine 4.09 today. Serologies negative so far. 2. Volume overload. 3. Chronic kidney disease stage IV with baseline creatinine in the range of 2.5-3. 4. Hypocalcemia secondary to chronic kidney disease maintained on PhosLo, Tums and calcitriol. 5. Anemia of chronic kidney disease. Iron replete. Maintained on Aranesp. GI also following. No active bleeding. 6. Metabolic acidosis secondary to chronic kidney disease. Better. 7. Urinary retention status post Espinoza catheter placement. 8. Encephalopathy which is multifactorial in nature. Partially due to uremia. 9. Systolic CHF with ejection fraction of 45-50%. 10. Hypertension with chronic kidney disease. Partially volume sensitive. Plan: Permacath to be placed this afternoon. First treatment of hemodialysis today and second treatment tomorrow. Start IV Lasix 60 mg twice daily. Start hydralazine 50 mg 3 times daily. Follow-up serologies. Hep-Lock IV fluids. Add oral sodium bicarbonate. 1 g IV calcium gluconate today. Check PTH and vitamin D level.
[2019-03-24 12:02] LABS: Glucose,Whole Blood 113 mg/dL (75-99)
[2019-03-24] MEDS: FUROSEMIDE 10 MG/ML 10 ML VIAL IV SCH ×2 (12:49→22:29)
[2019-03-24] MEDS: SODIUM BICARBONATE TAB 650 MG TAB PO SCH ×2 (12:49→22:29)
--- NOTE | 2019-03-24 16:40 | CDI ---
Documentation Clarification Form Date: 03/24/19 From: Mikki Jim RN, CCDS Admit Date: 03/20/2019 12:30:00 PM Patient Name: Brie Lei Visit Number: [id number] Discharge Date: ATTENTION: The Clinical Documentation Specialists (CDI) and [facility] Coding Staff appreciate your assistance in clarifying documentation. Please respond to the clarification below the line at the bottom and electronically sign. The CDI & [facility] Coding staff will review the response and follow-up if needed. Please note: Queries are made part of the Legal Health Record. If you have any questions, please contact the author of this message via ITS. Dr. Mina Marie Altered Mental Status was documented in the ED, H/P and subsequent progress notes and further clarification is needed. History/Risk Factors: COPD, Diabetes, Hypertension, Seizure, Vascular disorder, Hepatic encephalopathy, Chronic liver disease, possible cirrhosis, acute on chronic renal failure, High ammonia levels Clinical Indicators: 64 year female present with fatigue and somewhat confused. She was a recent discharge on 03/12/19 admitted for hepatic encephalopathy and acute on chronic renal failure. Labs: HGB 7.7, HCT 24.8, BUN 68, CR 5.15, Ammonia 59, Chest x-ray: increasing patchy density right lower lobe may reflect developing pneumonia Treatment: Neurological assessment per protocol Monitor CBC, Lytes, Ammonia levels Lactulose PO TID In your professional opinion, please clarify Hepatic encephalopathy Acute Hepatic Encephalopathy ----->Acute on Chronic Hepatic Encephalopathy Other, Specify Unable to determine (Last Revision: August 2017) MTDD
[2019-03-24] MEDS ORDERED: MIDAZOLAM 2 MG/2 ML VIAL IVP ONE (17:08)
[2019-03-24] MEDS ORDERED: LIDOCAINE 1% INJ 10MG/ML (20 ML MDV) SQ ONE (17:10)
--- NOTE | 2019-03-24 17:24 | PN ---
PROGRESS NOTE DATE OF DISCHARGE: 03/24/2019 The patient is a 64-year-old pleasant white female admitted to the hospital with shortness of breath, not feeling well, fatigue, weakness for the last few days' duration. She has chronic kidney disease, stage IV. Dr. Gunderson is following the patient closely. She is scheduled to start hemodialysis soon. She denies any abdominal pain, reports no nausea, vomiting. She continues to take lactulose 30 mL 3 times daily and has been having about 4 loose bowel movements. No new symptoms today. PHYSICAL EXAMINATION: She appears comfortable. No apparent distress. VITAL SIGNS: Stable. Blood pressure is 122/86, pulse rate 84, and afebrile. HEENT examination unremarkable. Conjunctivae pink. Sclerae anicteric. Oral cavity no lesions. NECK: No JVD or lymph node enlargement. CHEST: Clear to auscultation. HEART: Regular rate and rhythm. ABDOMEN: Soft. It was non-distended, non-tender. Bowel sounds are positive. EXTREMITIES: No pedal edema. SKIN: No rashes. NEUROLOGIC: Alert and oriented x3. No focal deficits. LABS: WBC is 5.7, hemoglobin 7.6. Platelets are normal. Basic metabolic panel showed a BUN of 63 and creatinine 4.09. IMPRESSION: 1. Hepatic encephalopathy, under control. Last ammonia level was 34. 2. Chronic kidney disease, stage IV. Patient is going to be started on hemodialysis tomorrow. She is going for port placement today. 3. Macrocytic anemia, most likely related to anemia of chronic disease. No evidence of iron deficiency. 4. Chronic liver disease; possible underlying liver cirrhosis secondary to fatty liver disease. RECOMMENDATIONS: 1. Continue with oral lactulose 30 mL 3 times daily and titrate to 3 to 4 soft bowel movements daily. 2. Monitor CBC on a daily basis. 3. Repeat labs in the morning. Will follow with you closely. Thank you for this consultation. MMODL / IJN: [id number] /
[2019-03-24] MEDS ORDERED: IV FLUID CONTINUATION 250 ML IV ONE (17:26)
--- NOTE | 2019-03-24 17:41 | P.OP ---
Description of Procedure: DATE OF PROCEDURE: 03/24/2019 PREOPERATIVE/ POSTOP DIAGNOSIS: Acute on chronic renal failure. PROCEDURE: 1. Ultrasound-guided micropuncture used to select the right IJ. 2. Placement of a 23 cm permanent dialysis palindrome catheter. SURGEON: Andrea Granados DO ANESTHESIA: local with moderate sedation x 23 mins EBL: 5cc COMPLICATIONS: none CONDITION: stable PROCEDURE: This patient was brought to the r&d lab technician. The right side of the neck and chest was prepped and draped in sterile manner. 1% lidocaine was infiltrated in the neck and chest area. After that, ultrasound-guided micropuncture into the right jugular vein. Micropuncture wire was passed. Micropuncture guidewire wound advanced. 4 Swedish dilator was advanced on top of the guidewire. 035 Guidewire was then placed and a 4-Swedish system was removed under fluoroscopy. Local anesthetic was infused into the right chest wall and a small incision was create d with a 11 blade scalpel. The catheter was then tunneled to the previous access site in the neck. Through the tunnel we brought we 3 cm dialysis catheter. After serial dilation was performed through the IJ the breakaway sheath was then placed and dialysis catheter was advanced through the sheath. Tip of the catheter in the superior vena cava and atrium, flushed with heparin an saline. It was in good position. Sheath was removed. Pressure was held. Patient tolerated the procedure well. Catheter was secured with Vicryl and nylon.
--- NOTE | 2019-03-24 18:50 | XR ---
EXAMINATION: XR chest 1V portable DATE AND TIME: 03/24/2019 5:57 PM CLINICAL INDICATION: PHH; LINE PLACEMENT AND CONFIRMATION. TECHNIQUE: AP portable semiupright COMPARISON: 03/07/2019 FINDINGS: Since prior study a right IJ double-lumen catheter has been placed, with tip superimposed o nancy the right atrium. There is no pneumothorax. No definite acute pulmonary or pleural process. The cardiac silhouette is mildly enlarged. The skeletal structures and soft tissues are negative for acute findings. IMPRESSION: No acute radiographic process.
[2019-03-24] MEDS: HYDROcodone/APAP 5-325MG 1 EACH TAB PO PRN (19:44)
[2019-03-24] MEDS: hydrOXYzine PAMOATE 25 MG CAP PO PRN (20:26)
[2019-03-24 20:29] LABS: Glucose,Whole Blood 138 mg/dL (75-99)
[2019-03-24] MEDS: MONTELUKAST 10 MG TAB PO SCH (22:29)
--- NOTE | 2019-03-24 22:31 | EEG ---
ELECTROENCEPHALOGRAM REPORT PROCEDURE DATE: 03/24/2019. ELECTROENCEPHALOGRAM (EEG) REPORT: TECHNIQUE: A routine 18 channel EEG was performed with video using the 10/20 international electrode placement system. HISTORY: Renal failure, pneumonia. Patient having flapping tremors of the hands. Patient is also difficult to arouse for periods of time. CURRENT MEDICATIONS: Dilantin, Protonix, morphine, Singulair, Cephulac, Aranesp. STUDY DURATION: 22 minutes. FINDINGS: Please note that quality of this recording was limited due to the presence of muscle artifact. BACKGROUND: The background activity consisted of poorly modulated 4-5 Hz rhythmic waveforms. ACTIVATION: Hyperventilation: Not performed. Photic stimulation: No driving seen. Sleep: Drowsy. ABNORMALITIES: 1. Diffuse synchronous and asynchronous 3 to 5 Hz slow wave activity was seen. 2. Frequent frontally predominant delta range slowing was seen. IMPRESSION: Limited study, abnormal EEG. The frontally predominant delta range slowing mentioned above is not epileptiform in nature. The diffuse synchronous and asynchronous theta delta range slowing mentioned above is not epileptiform in nature. Please note that intermixed with the frontally predominant delta range slowing were occasional triphasic waves. These findings are not epileptiform in nature. In combination, these findings indicate moderate diffuse cerebral dysfunction as may be seen in a toxo metabolic encephalopathy. No seizures were recorded. No epileptiform activity was present. MMODL / IJN: [id number] /
[2019-03-25] MEDS: HYDROcodone/APAP 5-325MG 1 EACH TAB PO PRN ×4 (01:46→22:41)
[2019-03-25] MEDS: hydrOXYzine PAMOATE 25 MG CAP PO PRN ×2 (04:47→16:20)
[2019-03-25 06:13] LABS: Glucose,Whole Blood 99 mg/dL (75-99)
[2019-03-25] MEDS: CALCIUM ACETATE 667 MG TAB PO SCH ×3 (06:18→18:17)
[2019-03-25 06:35] LABS: Anisocytosis Slight; Basophils # (A) 0.1 k/uL (0-0.2); Basophils % (A) 1 %; Eosinophils # (A) 0.2 k/uL (0-0.7); Eosinophils % (A) 2 %; HCT 26.7 % (34.0-46.0); HGB 8.3 gm/dL (11.4-16.0); Hypochromasia Slight; Lymphocytes # (A) 0.8 k/uL (1.0-4.8); Lymphocytes % (A) 12 %; MCH 31.2 pg (25.0-35.0); MCV 100.7 fL (80.0-100.0); Macrocytosis Slight; Mean Platelet Volume 7.2; Monocytes # (A) 0.5 k/uL (0-1.0); Monocytes % (A) 7 %; Neutrophils # (A) 4.5 k/uL (1.3-7.7); Neutrophils % (A) 74 %; Platelet Count 224 k/uL (150-450); Poikilocytosis Slight; RBC 2.65 m/uL (3.80-5.40); RDW 16.8 % (11.5-15.5); WBC 6.2 k/uL (3.8-10.6)
[2019-03-25 07:04] LABS: Calcium 7.2 mg/dL (8.4-10.2); Potassium 3.8 mmol/L (3.5-5.1)
[2019-03-25] MEDS: IPRATROPIUM-ALBUTEROL 3 ML NEB INHALATION PRN (08:20)
[2019-03-25] MEDS: SYMBICORT 160-4.5 MCG INHALER INHALATION SCH ×2 (08:20→19:51)
[2019-03-25] MEDS: CALCIUM CARBONATE 500 MG CHEWABLE PO SCH ×2 (09:00→21:09)
[2019-03-25] MEDS: PANTOPRAZOLE 40 MG TABLET PO SCH (09:00)
[2019-03-25] MEDS: SODIUM BICARBONATE TAB 650 MG TAB PO SCH ×2 (09:00→21:09)
[2019-03-25] MEDS: hydrALAZINE HCL 50 MG TAB PO SCH ×3 (09:00→21:09)
[2019-03-25] MEDS: FUROSEMIDE 10 MG/ML 10 ML VIAL IV SCH (09:00)
[2019-03-25] MEDS: PHENYTOIN SODIUM EXTENDED 100 MG CAP PO SCH ×3 (09:00→21:09)
[2019-03-25] MEDS: LACTULOSE 20 GM/30 ML CUP PO SCH ×4 (09:01→21:10)
--- NOTE | 2019-03-25 09:47 | P.PN ---
Progress Note - Text Progress Note Date: 03/24/19 SUBJECTIVE/INTERVAL EVENTS: No acute overnight events. Patient states that her headache is still a 10 out of 10 pain, but patient has been having chronic headaches since a teenager. Patient also noted that her vision since teenager. At the time of eval, patient repeated that she was more concerned about her edema and getting it out of her system than her headache as she's been dealing with her headache for years. PHYSICAL EXAMINATION: VITAL SIGNS: T 97.9 HR 108 RR 24 BP 197/79 2 sat 93% on 4L O2 via NC GEN.: drowsy but opens eyes to verbal stimuli and answers questions HEENT: NCAT NECK: Supple SKIN AND EXTREMITIES: Warm to touch NEURO: MENTAL STATUS: Patient alert and oriented to self, place, time. CRANIAL NERVES II THROUGH XII: II: Pupils are equal and reactive to light symmetrically. Visual acuity was tested with Snellen chart that needed to be about 6 ft away. Patient could not see anything, so brought it to about 4 feet away from patient. OS 20/70 OD 20/200 III, IV, : Tracks appropriately VII. No clear facial asymmetry. XI: Shoulder shrug intact. XII: Tongue midline without fasciculation or atrophy. MOTOR: At least antigravity in all 4 extremities. SENSORY: Intact to light touch in all 4 extremities. COORDINATION/GAIT: Deferred due to patient's drowsiness MEDICATIONS: Inpatient: Calcitriol, Pantoprazole, Phenytoin, Calcium, Budenoside, Montelukast, Lactulose, Darbepoetin DIAGNOSTICS: Laboratory: B12 262.0 (wnl), methylmalonic acid 0.68 (high), folic acid >24 Ceruloplasmin 32.8 Copper 1489 (wnl) ESR 93 and CRP 14.9 Imaging: CT head without contrast 03/12/2019: Degenerative and nonspecific white matter changes most typical of remote microvascular ischemia. No acute hemorrhage. Partially O Persico. Right mast oidectomy EEG 03/24/19: Limited study, normal EEG. Frontally predominant delta range and theta delta range not epileptiform in nature. There are occasional triphasic waves. These indicate most likely moderate diffuse cerebral dysfunction as may be seen in a toxo metabolic encephalopathy. No seizures were recorded. No epileptiform activity was present. ASSESSMENT and PLAN: Patient is a 64-year-old female with PMHx of COPD, Diabetes Mellitus, GERD/Reflux, Hyperlipidemia, Hypertension, Osteoarthritis (OA), Pneumonia, Respiratory Disorder, Seizure Disorder, Vascular Disorder, hyperparathyroidism, anemia, vitamin B12 deficiency, presented to [facility] for generalized weakness and sore throat/congestion. Altered mental status, likely due to toxic metabolic encephalopathy, multifactorial. Patient's worsening renal functions (creatinine 5.15 on admission, now 4.09), dehydration, significant anemia, hypocalcemia and hyperammonemia are the likely causes. Patient has chronic headaches. She has obesity. CT of the head revealed empty sella. Routine EEG no seizures - Primary team to continue with medical management for evaluation and treatment of other medical conditions. - Repeat ammonia 59->38 - Consider lumbar puncture to evaluate for opening pressure to rule out pseudotumor cerebri when patient stable but patient denies ever having any blurry vision. - Cordage Sales Representative consulted to rule out any evidence of papilledema. Headaches could also be tension type or from her hx of sinus disease. - ESR 93 and CRP 14.9 are both elevated, but patient with no pain in the temporal region to palpation bilaterally and no visual deficits. Patient also with significant COPD, which could elevated ESR and CRP - Neurology will continue to follow
--- NOTE | 2019-03-25 09:47 | IR ---
EXAMINATION TYPE: IR cvc insert central tunneled DATE OF EXAM: 03/24/2019 COMPARISON: NONE HISTORY: Fluoroscopy time. Fluoroscopy 0.6 minutes was provided to the referring clinician.
[2019-03-25 11:48] LABS: Glucose,Whole Blood 120 mg/dL (75-99)
--- NOTE | 2019-03-25 12:04 | P.PN ---
Subjective Patient is seen in follow-up for acute kidney injury on chronic kidney disease. Started on hemodialysis in March 24. Tolerated first treatment will yesterday. No active complaints at this time. Vital signs are stable. General: The patient appeared well nourished and normally developed. HEENT: Head exam is unremarkable. Neck is without jugular venous distension. LUNGS: Breath sounds decreased. HEART: Rate and Rhythm are regular. First and second heart sounds normal. No murmurs, rubs or gallops. ABDOMEN: Abdominal exam reveals normal bowel sounds. Soft. Mild tenderness. EXTREMITITES: 1+ edema. Objective - Vital Signs Vital signs: Vital Signs Temp 98.7 F 03/25/19 03:45 Pulse 100 03/25/19 08:45 Resp 20 03/25/19 03:45 BP 170/80 03/25/19 03:45 Pulse Ox 95 03/25/19 03:45 Intake & Output 03/24/19 03/25/19 03/25/19 18:59 06:59 18:59 Intake Total 170 2522 358 Output Total 2300 1400 1300 Balance -2130 1122 -942 Weight 96 kg Intake: IV 50 Oral 120 222 358 Hemodialysis 2300 Output: Urine 2300 1100 1300 Hemodialysis 300 Other: Voiding Method Indwelling Catheter Indwelling Catheter # Bowel Movements 0 - Labs CBC & Chem 7: 03/25/19 06:11 03/25/19 06:11 Labs: Abnormal Lab Results - Last 24 Hours (Table) 03/24/19 03/24/19 03/24/19 Range/Units 05:34 05:34 12:00 RBC (3.80-5.40) m/uL Hgb (11.4-16.0) gm/dL Hct (34.0-46.0) % MCV (80.0-100.0) fL RDW (11.5-15.5) % Lymphocytes # (1.0-4.8) k/uL Chloride (98-107) mmol/L BUN (7-17) mg/dL Creatinine (0.52-1.04) mg/dL POC Glucose (mg/dL) 113 H (75-99) mg/dL Calcium (8.4-10.2) mg/dL Vitamin D 25-Hydroxy 8.4 L (30.0-100.0) ng/mL PTH Intact 1287.4 H (14.0-72.0) pg/mL 03/24/19 03/25/19 03/25/19 Range/Units 20:27 06:11 06:11 RBC 2.65 L (3.80-5.40) m/uL Hgb 8.3 L (11.4-16.0) gm/dL Hct 26.7 L (34.0-46.0) % MCV 100.7 H (80.0-100.0) fL RDW 16.8 H (11.5-15.5) % Lymphocytes # 0.8 L (1.0-4.8) k/uL Chloride 109 H (98-107) mmol/L BUN 51 H (7-17) mg/dL Creatinine 3.22 H (0.52-1.04) mg/dL POC Glucose (mg/dL) 138 H (75-99) mg/dL Calcium 7.2 L (8.4-10.2) mg/dL Vitamin D 25-Hydroxy (30.0-100.0) ng/mL PTH Intact (14.0-72.0) pg/mL 03/25/19 Range/Units 11:46 RBC (3.80-5.40) m/uL Hgb (11.4-16.0) gm/dL Hct (34.0-46.0) % MCV (80.0-100.0) fL RDW (11.5-15.5) % Lymphocytes # (1.0-4.8) k/uL Chloride (98-107) mmol/L BUN (7-17) mg/dL Creatinine (0.52-1.04) mg/dL POC Glucose (mg/dL) 120 H (75-99) mg/dL Calcium (8.4-10.2) mg/dL Vitamin D 25-Hydroxy (30.0-100.0) ng/mL PTH Intact (14.0-72.0) pg/mL Microbiology - Last 24 Hours (Table) 03/20/19 12:08 Blood Culture - Preliminary Blood No Growth after 96 hours 03/21/19 11:27 Blood Culture - Preliminary Blood No Growth after 72 hours Assessment and Plan Plan: Assessment: 1. Acute kidney injury mostly prerenal improved with IV hydration. However the patient is now hypervolemic. Also component of urinary retention. Serologies negative. Due to uremia and no improvement in kidney function, she was started on hemodialysis on March 24. 2. Volume overload. 3. Chronic kidney disease stage IV with baseline creatinine in the range of 2.5-3. 4. Hypocalcemia secondary to chronic kidney disease maintained on PhosLo, Tums and calcitriol. Better. 5. Anemia of chronic kidney disease. Iron replete. Maintained on Aranesp. GI also following. No active bleeding. 6. Metabolic acidosis secondary to chronic kidney disease. Better. 7. Urinary retention status post Espinoza catheter placement. 8. Encephalopathy which is multifactorial in nature. Partially due to uremia. 9. Systolic CHF with ejection fraction of 45-50%. 10. Hypertension with chronic kidney disease. Partially volume sensitive. Plan: Second treatment of hemodialysis today. Third treatment tomorrow. Maintain oral sodium bicarbonate. Increase calcitriol to 0.5 g once daily. Increase hydralazine to 100 mg 3 times daily. I will change Lasix to 80 mg orally twice daily.
--- NOTE | 2019-03-25 13:01 | P.PN ---
Subjective Progress Note Date: 03/24/19 This is a 64-year-old white female well-known to the practice. She was discharged here from [facility] on 03/12/2019 after being admitted for hepatic encephalopathy and acute on chronic renal failure. She returns now with worsening fatigue and increasing confusion. At her previous admission subacute rehabilitation was recommended and refused by the patient and family. Home care was recommended but also refused after discharge by the family. She is complaining of fatigue headache, weakness, nausea, she denies any chest pains, pressures, has chronic shortness of breath with exertion due to COPD. She was seen and examined emergency room with the nurse practitioner. 03/21/2019: Patient was found in her room today asleep. She was arousable. Staff reports that she will not do anything for herself. She remained quite confused and doesn't seem to have any recollection of her's previous hospital stay. She just asked for her 2 sons and wonders where they are. She is unable to answer my questions significantly and is oriented 1 to self only at this time. 03/22/2019: Patient is resting comfortably in the recliner chair. She is awake and alert, and quite anxious. Staff reports that she's been rather needy and concern. Her and I discussed her recovery and the need for rehabilitation after discharge, and her refusal led to her readmission. She indicates his headache is better. She denies any chest pains, pressures, nausea or vomiting. She complains of some shortness of breath with exertion. She is awake alert and oriented 2 today. She had a Espinoza catheter inserted early this morning after she failed to void. Home this morning is down to 6.8. Nephrology and GI are following. Neurology had seen her on Saturday. Their notes were reviewed today. 03/23/2019 dialysis catheter placement pending for today with initiation of dialysis. Sitting up in chair, fluid overloaded, lethargic. Ammonia 38. Hemoglobin 7. Creatinine down to 4.18. CO2 18 .Maintained on bicarb drip. Neurology evaluation in progress, recommendations pending. Denies nausea vomiting or diarrhea. Diet intake fair, fluctuates. Calcium 6.3, calcium gluconate ordered. Iron studies pending. 03/24/19 afebrile, normal WBC. Lethargic, patient had received morphine ordered from ER, discontinued. Creatinine 4.18, and scheduled for temporal a dialysis catheter today as well as dialysis. Hypertensive, received hydralazine. Hemoglobin 7.6. Denies nausea vomiting or diarrhea. Denies abdominal pain. Objective - Vital Signs Vital signs: Vital Signs Temp 97.9 F 03/24/19 08:00 Pulse 76 03/24/19 12:29 Resp 24 03/24/19 08:00 BP 197/79 03/24/19 08:00 Pulse Ox 93 L 03/24/19 08:00 Intake & Output 03/23/19 03/24/19 03/24/19 18:59 06:59 18:59 Intake Total 1160 120 120 Output Total 380 918 7969 Balance 530 -250 -3694 Weight 100.6 kg Intake: Intake, IV Titration 500 Amount Calcium Gluconate 1 gm In 100 Sodium Chloride 0.9% 100 ml @ 100 mls/hr IVPB ONCE ONE Rx#:[id number] Dextrose 5% in Water 1, 400 000 ml @ 50 mls/hr IV . Q23H BHAVIK with Sodium Bicarb (1 Meq/ml) 150 ml Rx#:[id number] Oral 660 120 120 Output: Urine [phone] Other: Voiding Method Indwelling Catheter # Voids 3 # Bowel Movements 2 1 0 - Exam GENERAL: Sitting up in chair, more alert ,Fatigued, respiratory effort increased HEAD: Atraumatic, normocephalic. EYES: Pupils equal round and reactive to light, extraocular movements intact, sclera anicteric, conjunctiva are normal. ENT:nares patent, oropharynx clear without exudates. Moist mucous membranes. NECK: Normal range of motion, supple without lymphadenopathy or JVD, no thyromegaly LUNGS: Breath sounds coarse to auscultation bilaterally and equal. No wheezes rales or rhonchi. HEART: Regular rate and rhythm without murmurs, rubs or gallops.S1S2 Normal ABDOMEN: Soft, nondistended, nontender, normoactive bowel sounds. No guarding, no rebound. No masses appreciated. EXTREMITIES: Normal range of motion, no pitting, +1 edema generalized edema. No clubbing or cyanosis. Positive asterixis. NEUROLOGICAL: Cranial nerves II through XII grossly intact. Moves all 4 extremities, Asterixis mild. SKIN: Warm, Dry, normal turgor, no rashes or lesions noted. - Labs CBC & Chem 7: 03/25/19 06:11 03/25/19 06:11 Labs: Abnormal Lab Results - Last 24 Hours (Table) 03/21/19 03/23/19 03/23/19 Range/Units 06:27 16:55 20:20 RBC (3.80-5.40) m/uL Hgb (11.4-16.0) gm/dL Hct (34.0-46.0) % MCV (80.0-100.0) fL RDW (11.5-15.5) % Lymphocytes # (1.0-4.8) k/uL Chloride (98-107) mmol/L Carbon Dioxide (22-30) mmol/L BUN (7-17) mg/dL Creatinine (0.52-1.04) mg/dL Glucose (74-99) mg/dL POC Glucose (mg/dL) 128 H 142 H (75-99) mg/dL Calcium (8.4-10.2) mg/dL Alkaline Phosphatase (38-126) U/L Total Protein (6.3-8.2) g/dL Albumin (3.5-5.0) g/dL Methylmalonic Acid 0.68 H (<0.40) umol/L 03/24/19 03/24/19 03/24/19 Range/Units 05:34 05:34 06:13 RBC 2.41 L (3.80-5.40) m/uL Hgb 7.6 L (11.4-16.0) gm/dL Hct 24.3 L (34.0-46.0) % MCV 100.9 H (80.0-100.0) fL RDW 17.1 H (11.5-15.5) % Lymphocytes # 0.6 L (1.0-4.8) k/uL Chloride 111 H (98-107) mmol/L Carbon Dioxide 21 L (22-30) mmol/L BUN 63 H (7-17) mg/dL Creatinine 4.09 H (0.52-1.04) mg/dL Glucose 101 H (74-99) mg/dL POC Glucose (mg/dL) 109 H (75-99) mg/dL Calcium 6.5 L (8.4-10.2) mg/dL Alkaline Phosphatase 129 H (38-126) U/L Total Protein 6.1 L (6.3-8.2) g/dL Albumin 3.4 L (3.5-5.0) g/dL Methylmalonic Acid (<0.40) umol/L 03/24/19 Range/Units 12:00 RBC (3.80-5.40) m/uL Hgb (11.4-16.0) gm/dL Hct (34.0-46.0) % MCV (80.0-100.0) fL RDW (11.5-15.5) % Lymphocytes # (1.0-4.8) k/uL Chloride (98-107) mmol/L Carbon Dioxide (22-30) mmol/L BUN (7-17) mg/dL Creatinine (0.52-1.04) mg/dL Glucose (74-99) mg/dL POC Glucose (mg/dL) 113 H (75-99) mg/dL Calcium (8.4-10.2) mg/dL Alkaline Phosphatase (38-126) U/L Total Protein (6.3-8.2) g/dL Albumin (3.5-5.0) g/dL Methylmalonic Acid (<0.40) umol/L Microbiology - Last 24 Hours (Table) 03/20/19 12:08 Blood Culture - Preliminary Blood No Growth after 96 hours 03/21/19 11:27 Blood Culture - Preliminary Blood No Growth after 72 hours Assessment and Plan Assessment: (1) Macrocytic anemia, iron studies pending, suspect of chronic disease. GI following, no active bleeding. Current Visit: Yes Status: Acute Code(s): D53.9 - NUTRITIONAL ANEMIA, UNSPECIFIED SNOMED Code(s): 27672422 (2) Hyperammonemia Current Visit: Yes Status: Acute Code(s): E72.20 - DISORDER OF UREA CYCLE METABOLISM, UNSPECIFIED SNOMED Code(s): 4994415 (3) Hypocalcemia secondary to kidney disease Current Visit: Yes Status: Acute Code(s): E83.51 - HYPOCALCEMIA SNOMED Code(s): 2179829 (4) Acute on chronic renal failure, stage IV. Acute, prerenal. Current Visit: No Status: Acute Code(s): N17.9 - ACUTE KIDNEY FAILURE, UNSPECIFIED; N18.9 - CHRONIC KIDNEY DISEASE, UNSPECIFIED SNOMED Code(s): 633074712 (5) Altered mental status Current Visit: No Status: Acute Code(s): R41.82 - ALTERED MENTAL STATUS, UNSPECIFIED SNOMED Code(s): 478115393 (6) Chronic renal disease, stage 4, severely decreased glomerular filtration rate (GFR) between 15-29 mL/min/1.73 square meter Current Visit: No Status: Acute Code(s): N18.4 - CHRONIC KIDNEY DISEASE, STAGE 4 (SEVERE) SNOMED Code(s): 984747163 (7) Dehydration Current Visit: No Status: Acute Code(s): E86.0 - DEHYDRATION SNOMED Code(s): 86119987 (8) Essential (primary) hypertension Current Visit: No Status: Acute Code(s): I10 - ESSENTIAL (PRIMARY) HYPERTENSION SNOMED Code(s): 98405563 (9) Hepatic, uremic encephalopathy Current Visit: No Status: Acute Code(s): K72.90 - HEPATIC FAILURE, UNSPECIFIED WITHOUT COMA SNOMED Code(s): 77959799 (10) Hyperammonemia Current Visit: No Status: Acute Code(s): E72.20 - DISORDER OF UREA CYCLE METABOLISM, UNSPECIFIED SNOMED Code(s): 4056565 (11) Noncompliance Current Visit: No Status: Acute Code(s): Z91.19 - PATIENT'S NONCOMPLIANCE W OTH MEDICAL TREATMENT AND REGIMEN SNOMED Code(s): 6995760 (12) Pure hypercholesterolemia Current Visit: No Status: Acute Code(s): E78.00 - PURE HYPERCHOLESTEROLEMIA, UNSPECIFIED SNOMED Code(s): 983844469 (13) Readmission after hospitalization within last 30 days Current Visit: No Status: Acute Code(s): VJL1334 - SNOMED Code(s): 197825 006 (14) Seizure disorder Current Visit: No Status: Acute Code(s): G40.909 - EPILEPSY, UNSP, NOT INTRACTABLE, WITHOUT STATUS EPILEPTICUS SNOMED Code(s): 973213295 (15)Hypocalcemia (16) urinary retention, Espinoza catheter placed. (17) hypertension, secondary to chronic disease and fluid overload. Plan: Continue on current medication regime ,monitoring and symptomatic treatment. Dialysis catheter pending with hemodialysis. IV push Lasix and she needed in addition to hydralazine. IV calcium gluconate ordered. Repeat labs in a.m. subacute rehab at discharge. The impression and plan of care has been dictated as directed. : I performed a history and examination of this patient, discussed the same with the dictator. I agree with the dictator's note ,documented as a scribe. Any additional findings or plans will be noted.
--- NOTE | 2019-03-25 13:45 | P.PN ---
Subjective Progress Note Date: 03/25/19 This is a 64-year-old white female well-known to the practice. She was discharged here from [facility] on 03/12/2019 after being admitted for hepatic encephalopathy and acute on chronic renal failure. She returns now with worsening fatigue and increasing confusion. At her previous admission subacute rehabilitation was recommended and refused by the patient and family. Home care was recommended but also refused after discharge by the family. She is complaining of fatigue headache, weakness, nausea, she denies any chest pains, pressures, has chronic shortness of breath with exertion due to COPD. She was seen and examined emergency room with the nurse practitioner. 03/21/2019: Patient was found in her room today asleep. She was arousable. Staff reports that she will not do anything for herself. She remained quite confused and doesn't seem to have any recollection of her's previous hospital stay. She just asked for her 2 sons and wonders where they are. She is unable to answer my questions significantly and is oriented 1 to self only at this time. 03/22/2019: Patient is resting comfortably in the recliner chair. She is awake and alert, and quite anxious. Staff reports that she's been rather needy and concern. Her and I discussed her recovery and the need for rehabilitation after discharge, and her refusal led to her readmission. She indicates his headache is better. She denies any chest pains, pressures, nausea or vomiting. She complains of some shortness of breath with exertion. She is awake alert and oriented 2 today. She had a Espinoza catheter inserted early this morning after she failed to void. Home this morning is down to 6.8. Nephrology and GI are following. Neurology had seen her on Saturday. Their notes were reviewed today. 03/23/2019 dialysis catheter placement pending for today with initiation of dialysis. Sitting up in chair, fluid overloaded, lethargic. Ammonia 38. Hemoglobin 7. Creatinine down to 4.18. CO2 18 .Maintained on bicarb drip. Neurology evaluation in progress, recommendations pending. Denies nausea vomiting or diarrhea. Diet intake fair, fluctuates. Calcium 6.3, calcium gluconate ordered. Iron studies pending. 03/24/19 afebrile, normal WBC. Lethargic, patient had received morphine ordered from ER, discontinued. Creatinine 4.18, and scheduled for temporal a dialysis catheter today as well as dialysis. Hypertensive, received hydralazine. Hemoglobin 7.6. Denies nausea vomiting or diarrhea. Denies abdominal pain. 03/25/2019 dialysis catheter placed yesterday with initiation of hemodialysis l ast night. Tolerated well. Diuresed well on Lasix IV push with 24-hour I&O reflecting a negative fluid balance. Lasix converted to oral. Creatinine down to 3.22.Scheduled for another hemodialysis today.Home pain medication regimen resumed yesterday. Maintained on oral sodium bicarb. Complains of being tired, not sleeping well. Diet intake improving. Positive bowel movement. Hypertensive, hydralazine further increased. Objective - Vital Signs Vital signs: Vital Signs Temp 98.7 F 03/25/19 03:45 Pulse 100 03/25/19 08:45 Resp 20 03/25/19 03:45 BP 170/80 03/25/19 03:45 Pulse Ox 95 03/25/19 03:45 Intake & Output 03/24/19 03/25/19 03/25/19 18:59 06:59 18:59 Intake Total 170 2522 358 Output Total 2300 1400 1300 Balance -2130 1122 -942 Weight 96 kg Intake: IV 50 Oral 120 222 358 Hemodialysis 2300 Output: Urine 2300 1100 1300 Hemodialysis 300 Other: Voiding Method Indwelling Catheter Indwelling Catheter # Bowel Movements 0 - Exam GENERAL: Sitting up in chair, more alert , no acute distress, tired appearing HEAD: Atraumatic, normocephalic. EYES: Pupils equal round and reactive to light, extraocular movements intact, sclera anicteric, conjunctiva are normal. ENT:nares patent, oropharynx clear without exudates. Moist mucous membranes. NECK: Normal range of motion, supple without lymphadenopathy or JVD, no thyromegaly LUNGS: Breath sounds coarse to auscultation bilaterally and equal. No rhonchi, fine bibasilar crackles, No wheezes. HEART: Regular rate and rhythm without murmurs, rubs or gallops.S1S2 Normal. ABDOMEN: Soft, nondistended, nontender, normoactive bowel sounds. No guarding, no rebound. No masses appreciated. EXTREMITIES: Normal range of motion, no pitting, +1 edema generalized edema. No clubbing or cyanosis. NEUROLOGICAL: Cranial nerves II through XII grossly intact. Moves all 4 extremities. SKIN: Warm, Dry, normal turgor, no rashes or lesions noted. - Labs CBC & Chem 7: 03/25/19 06:11 03/25/19 06:11 Labs: Abnormal Lab Results - Last 24 Hours (Table) 03/24/19 03/24/19 03/24/19 Range/Units 05:34 05:34 20:27 RBC (3.80-5.40) m/uL Hgb (11.4-16.0) gm/dL Hct (34.0-46.0) % MCV (80.0-100.0) fL RDW (11.5-15.5) % Lymphocytes # (1.0-4.8) k/uL Chloride (98-107) mmol/L BUN (7-17) mg/dL Creatinine (0.52-1.04) mg/dL POC Glucose (mg/dL) 138 H (75-99) mg/dL Calcium (8.4-10.2) mg/dL Vitamin D 25-Hydroxy 8.4 L (30.0-100.0) ng/mL PTH Intact 1287.4 H (14.0-72.0) pg/mL 03/25/19 03/25/19 03/25/19 Range/Units 06:11 06:11 11:46 RBC 2.65 L (3.80-5.40) m/uL Hgb 8.3 L (11.4-16.0) gm/dL Hct 26.7 L (34.0-46.0) % MCV 100.7 H (80.0-100.0) fL RDW 16.8 H (11.5-15.5) % Lymphocytes # 0.8 L (1.0-4.8) k/uL Chloride 109 H (98-107) mmol/L BUN 51 H (7-17) mg/dL Creatinine 3.22 H (0.52-1.04) mg/dL POC Glucose (mg/dL) 120 H (75-99) mg/dL Calcium 7.2 L (8.4-10.2) mg/dL Vitamin D 25-Hydroxy (30.0-100.0) ng/mL PTH Intact (14.0-72.0) pg/mL Microbiology - Last 24 Hours (Table) 03/20/19 12:08 Blood Culture - Preliminary Blood No Growth after 96 hours 03/21/19 11:27 Blood Culture - Preliminary Blood No Growth after 72 hours Assessment and Plan Assessment: (1) Macrocytic anemia, iron studies pending, suspect of chronic disease. GI following, no active bleeding. Current Visit: Yes Status: Acute Code(s): D53.9 - NUTRITIONAL ANEMIA, UNSPECIFIED SNOMED Code(s): 08636509 (2) Hyperammonemia Current Visit: Yes Status: Acute Code(s): E72.20 - DISORDER OF UREA CYCLE METABOLISM, UNSPECIFIED SNOMED Code(s): 4179294 (3) Hypocalcemia secondary to kidney disease Current Visit: Yes Status: Acute Code(s): E83.51 - HYPOCALCEMIA SNOMED Code(s): 6573305 (4) Acute on chronic renal failure, stage IV. Acute, prerenal. Status post dialysis catheter placement with initiation of hemodialysis Current Visit: No Status: Acute Code(s): N17.9 - ACUTE KIDNEY FAILURE, UNSPECIFIED; N18.9 - CHRONIC KIDNEY DISEASE, UNSPECIFIED SNOMED Code(s): 988593205 (5) Altered mental status Current Visit: No Status: Acute Code(s): R41.82 - ALTERED MENTAL STATUS, UNSPECIFIED SNOMED Code(s): 917409976 (6) Chronic renal disease, stage 4, severely decreased glomerular filtration rate (GFR) between 15-29 mL/min/1.73 square meter Current Visit: No Status: Acute Code(s): N18.4 - CHRONIC KIDNEY DISEASE, STAGE 4 (SEVERE) SNOMED Code(s): 409875376 (7) Dehydration Current Visit: No Status: Acute Code(s): E86.0 - DEHYDRATION SNOMED Code(s): 20620546 (8) Essential (primary) hypertension Current Visit: No Status: Acute Code(s): I10 - ESSENTIAL (PRIMARY) HYPERTENSION SNOMED Code(s): 68344884 (9) Hepatic, uremic encephalopathy Current Visit: No Status: Acute Code(s): K72.90 - HEPATIC FAILURE, UNSPECIFIED WITHOUT COMA SNOMED Code(s): 84629437 (10) Hyperammonemia Current Visit: No Status: Acute Code(s): E72.20 - DISORDER OF UREA CYCLE METABOLISM, UNSPECIFIED SNOMED Code(s): 5216728 (11) Noncompliance Current Visit: No Status: Acute Code(s): Z91.19 - PATIENT'S NONCOMPLIANCE W OTH MEDICAL TREATMENT AND REGIMEN SNOMED Code(s): 4324375 (12) Pure hypercholesterolemia Current Visit: No Status: Acute Code(s): E78.00 - PURE HYPERCHOLESTEROLEMIA, UNSPECIFIED SNOMED Code(s): 414155955 (13) Readmission after hospitalization within last 30 days Current Visit: No Status: Acute Code(s): BAO6737 - SNOMED Code(s): 715178137 (14) Seizure disorder Current Visit: No Status: Acute Code(s): G40.909 - EPILEPSY, UNSP, NOT INTRACTABLE, WITHOUT STATUS EPILEPTICUS SNOMED Code(s): 292694993 (15)Hypocalcemia (16) urinary retention, Espinoza catheter placed. (17) hypertension, secondary to chronic disease and fluid overload. Plan: Continue on current medication regime ,monitoring and symptomatic treatment. Hemodialysis scheduled for again today and tomorrow. Lasix converted to oral. Discharge planning in progress for tomorrow after dialysis to subacute rehab. Case management has arranged outpatient dialysis center. The impression and plan of care has been dictated as directed. : I performed a history and examination of this patient, discussed the same with the dictator. I agree with the dictator's note ,documented as a scribe. Any additional findings or plans will be noted.
[2019-03-25 16:47] LABS: Glucose,Whole Blood 114 mg/dL (75-99)
--- NOTE | 2019-03-25 17:36 | PN ---
PROGRESS NOTE DATE OF DISCHARGE: 03/25/2019 Patient is a 64-year-old pleasant white female, admitted to the hospital with shortness of breath. She was diagnosed with end-stage renal disease and she was started on hemodialysis yesterday. She underwent a port placement yesterday. This morning she is quite sleepy, having her second cycle of dialysis being done today. She denies any new symptoms. PHYSICAL EXAMINATION: She appears comfortable. No apparent distress. VITAL SIGNS: Stable. Blood pressure is 170/80, pulse rate 108, temperature 98.7. HEENT examination unremarkable. Conjunctivae pink. Sclerae anicteric. Oral cavity no lesions. NECK: No JVD or lymph node enlargement. CHEST: Clear to auscultation. ABDOMEN: Soft. Bowel sounds are positive. No organomegaly. EXTREMITIES: No pedal edema. SKIN: No rashes. NEUROLOGIC: Alert and oriented x3. No focal deficits. LABS: Labs from today show WBC 6.2, hemoglobin 8.3. Platelets are normal. BUN 51, creatinine 3.22. IMPRESSION: 1. End-stage renal disease, started on hemodialysis yesterday. She is undergoing her second cycle of dialysis today. 2. Hyperammonemia; has resolved. Presently on oral lactulose 30 mL 3 times daily and having about 3 bowel movements daily. 3. Possible chronic liver disease with cirrhosis of the liver. 4. Macrocytic anemia. Iron studies not consistent with iron deficiency anemia. Most likely we are dealing with anemia of chronic disease, probably related to underlying chronic kidney disease. At this time hemoglobin remains stable. RECOMMENDATIONS: 1. Continue with symptomatic and supportive care. 2. Monitor her labs closely. 3. Continue lactulose 30 mL 3 times daily. 4. Will follow with you closely. Thank you for this consultation. MMODL / IJN: [id number] /
[2019-03-25] MEDS: FUROSEMIDE 80 MG TAB PO SCH (18:17)
[2019-03-25 21:07] LABS: Glucose,Whole Blood 140 mg/dL (75-99)
[2019-03-25] MEDS: MONTELUKAST 10 MG TAB PO SCH (21:09)
[2019-03-26 06:10] LABS: Glucose,Whole Blood 109 mg/dL (75-99)
[2019-03-26 07:08] LABS: Anisocytosis Slight; Basophils # (A) 0.1 k/uL (0-0.2); Basophils % (A) 1 %; Eosinophils # (A) 0.2 k/uL (0-0.7); Eosinophils % (A) 3 %; HCT 26.2 % (34.0-46.0); HGB 8.5 gm/dL (11.4-16.0); Hypochromasia Slight; Lymphocytes # (A) 0.7 k/uL (1.0-4.8); Lymphocytes % (A) 12 %; MCH 32.5 pg (25.0-35.0); MCHC 32.4 g/dL (31.0-37.0); MCV 100.4 fL (80.0-100.0); Macrocytosis Slight; Mean Platelet Volume 6.4; Monocytes # (A) 0.5 k/uL (0-1.0); Monocytes % (A) 9 %; Neutrophils # (A) 4.4 k/uL (1.3-7.7); Neutrophils % (A) 72 %; Platelet Count 203 k/uL (150-450); Poikilocytosis Slight; RBC 2.61 m/uL (3.80-5.40); RDW 16.9 % (11.5-15.5); WBC 6.1 k/uL (3.8-10.6)
[2019-03-26] MEDS: IPRATROPIUM-ALBUTEROL 3 ML NEB INHALATION PRN ×3 (07:55→15:06)
[2019-03-26] MEDS: SYMBICORT 160-4.5 MCG INHALER INHALATION SCH ×2 (07:55→21:02)
[2019-03-26 08:12] LABS: Calcium 7.7 mg/dL (8.4-10.2); Potassium 3.6 mmol/L (3.5-5.1)
[2019-03-26] MEDS: CALCIUM ACETATE 667 MG TAB PO SCH ×3 (09:37→16:03)
--- NOTE | 2019-03-26 09:51 | P.DS ---
Providers Date of admission: 03/20/19 12:30 Expected date of discharge: 03/26/19 Attending physician: Adal Mari Consults: 03/20/19 12:30 Consult Physician Urgent Consulting Provider: Harriet Kwok Consult Reason/Comments: anemia, hyperammonemia Do you want consulting provider notified?: Yes 03/20/19 12:31 Consult Physician Urgent Consulting Provider: Kaia Gunderson Consult Reason/Comments: arf Do you want consulting provider notified?: Yes 03/20/19 15:24 Consult Physician Urgent Consulting Provider: Adam Silva Consult Reason/Comments: Metabolic encephalopathy Do you want consulting provider notified?: Yes 03/23/19 11:00 Consult Physician Urgent Consulting Provider: Arnie Galloway Consult Reason/Comments: permacath placement Do you want consulting provider notified?: Yes 03/24/19 10:59 Consult Physician Routine Consulting Provider: Cecy Rosenbaum Consult Reason/Comments: papilloedema Do you want consulting provider notified?: Yes Primary care physician: [facility] Course: (1) Macrocytic anemia, iron studies pending, suspect of chronic disease. GI following, no active bleeding. Current Visit: Yes Status: Acute Code(s): D53.9 - NUTRITIONAL ANEMIA, UNSPECIFIED SNOMED Code(s): 59248406 (2) Hyperammonemia Current Visit: Yes Status: Acute Code(s): E72.20 - DISORDER OF UREA CYCLE METABOLISM, UNSPECIFIED SNOMED Code(s): 9655725 (3) Hypocalcemia secondary to kidney disease Current Visit: Yes Status: Acute Code(s): E83.51 - HYPOCALCEMIA SNOMED Code(s): 5790617 (4) Acute on chronic renal failure, stage IV. Acute, prerenal. Status post dialysis catheter placement with initiation of hemodialysis Current Visit: No Status: Acute Code(s): N17.9 - ACUTE KIDNEY FAILURE, UNSPECIFIED; N18.9 - CHRONIC KIDNEY DISEASE, UNSPECIFIED SNOMED Code(s): 922824708 (5) Altered mental status Current Visit: No Status: Acute Code(s): R41.82 - ALTERED MENTAL STATUS, UNSPECIFIED SNOMED Code(s): 545283129 (6) Chronic renal disease, stage 4, severely decreased glomerular filtration rate (GFR) between 15-29 mL/min/1.73 square meter Current Visit: No Status: Acute Code(s): N18.4 - CHRONIC KIDNEY DISEASE, STAGE 4 (SEVERE) SNOMED Code(s): 093316804 (7) Dehydration Current Visit: No Status: Acute Code(s): E86.0 - DEHYDRATION SNOMED Code(s): 10030257 (8) Essential (primary) hypertension Current Visit: No Status: Acute Code(s): I10 - ESSENTIAL (PRIMARY) HYPERTENSION SNOMED Code(s): 48476618 (9) Hepatic, uremic encephalopathy Current Visit: No Status: Acute Code(s): K72.90 - HEPATIC FAILURE, UNSPECIFIED WITHOUT COMA SNOMED Code(s): 88760225 (10) Hyperammonemia Current Visit: No Status: Acute Code(s): E72.20 - DISORDER OF UREA CYCLE METABOLISM, UNSPECIFIED SNOMED Code(s): 7748753 (11) Noncompliance Current Visit: No Status: Acute Code(s): Z91.19 - PATIENT'S NONCOMPLIANCE W OTH MEDICAL TREATMENT AND REGIMEN SNOMED Code(s): 1500425 Hospital course:This is a 64-year-old white female well-known to the practice. She was discharged here from [facility] on 03/12/2019 after being adm itted for hepatic encephalopathy and acute on chronic renal failure. She returns now with worsening fatigue and increasing confusion. At her previous admission subacute rehabilitation was recommended and refused by the patient and family. Home care was recommended but also refused after discharge by the family. She is complaining of fatigue headache, weakness, nausea, she denies any chest pains, pressures, has chronic shortness of breath with exertion due to COPD. She was seen and examined emergency room with the nurse practitioner. 03/21/2019: Patient was found in her room today asleep. She was arousable. Staff reports that she will not do anything for herself. She remained quite confused and doesn't seem to have any recollection of her's previous hospital stay. She just asked for her 2 sons and wonders where they are. She is unable to answer my questions significantly and is oriented 1 to self only at this time. 03/22/2019: Patient is resting comfortably in the recliner chair. She is awake and alert, and quite anxious. Staff reports that she's been rather needy and concern. Her and I discussed her recovery and the need for rehabilitation after discharge, and her refusal led to her readmission. She indicates his headache is better. She denies any chest pains, pressures, nausea or vomiting. She complains of some shortness of breath with exertion. She is awake alert and oriented 2 today. She had a Espinoza catheter inserted early this morning after she failed to void. Home this morning is down to 6.8. Nephrology and GI are following. Neurology had seen her on Saturday. Their notes were reviewed today. 03/23/2019 dialysis catheter placement pending for today with initiation of dialysis. Sitting up in chair, fluid overloaded, lethargic. Ammonia 38. Hemoglobin 7. Creatinine down to 4.18. CO2 18 .Maintained on bicarb drip. Neurology evaluation in progress, recommendations pending. Denies nausea vomiting or diarrhea. Diet intake fair, fluctuates. Calcium 6.3, calcium gluconate ordered. Iron studies pending. 03/24/19 afebrile, normal WBC. Lethargic, patient had received morphine ordered from ER, discontinued. Creatinine 4.18, and scheduled for temporal a dialysis catheter today as well as dialysis. Hypertensive, received hydralazine. Hemoglobin 7.6. Denies nausea vomiting or diarrhea. Denies abdominal pain. 03/25/2019 dialysis catheter placed yesterday with initiation of hemodialysis last night. Tolerated well. Diuresed well on Lasix IV push with 24-hour I&O reflecting a negative fluid balance. Lasix converted to oral. Creatinine down to 3.22.Scheduled for another hemodialysis today.Home pain medication regimen resumed yesterday. Maintained on oral sodium bicarb. Complains of being tired, not sleeping well. Diet intake improving. Positive bowel movement. Hypertensive, hydralazine further increased. Significant clinical improvement. Cleared by all consults for discharge. Patient is being discharged to subacute rehab after dialysis today, in a stable condition with guarded prognosis. Outpatient hemodialysis, diuretics as per nephrology. - Exam GENERAL: Alert and oriented 3, no acute distress LUNGS: Breath sounds coarse to auscultation bilaterally and equal. No rhonchi, no crackles, No wheezes. HEART: Regular rate and rhythm without murmurs, rubs or gallops.S1S2 Normal. ABDOMEN: Soft, nondistended, nontender, normoactive bowel sounds. No guarding. NEUROLOGICAL: No focal deficits. The impression and plan of care has been dictated as directed. : I performed a history and examination of this patient, discussed the same with the dictator. I agree with the dictator's note ,documented as a scribe. Any additional findings or plans will be noted. Patient Condition at Discharge: Stable Plan - Discharge Summary Discharge Rx Participant: No New Discharge Prescriptions: New hydrALAZINE HCL [Apresoline] 100 mg PO TID tab Furosemide [Lasix] 80 mg PO BID@0900,1600 tab amLODIPine [Norvasc] 5 mg PO DAILY tab Sodium Bicarbonate Tab 650 mg PO BID tab Calcium Carbonate [Tums] 500 mg PO BID chew INSULIN LISPRO (HumaLOG) [humaLOG] 0 unit SQ ACHS #1 vial Continue Phenytoin Sodium Extended [Dilantin] 100 mg PO TID Folic Acid 1 mg PO DAILY Gemfibrozil [Lopid] 1,200 mg PO HS Montelukast [Singulair] 10 mg PO HS #30 tab Omeprazole [PriLOSEC] 20 mg PO DAILY Calcitriol 0.5 mcg PO MOWEFR Primidone [Mysoline] 50 mg PO BID Budesonide-Formot 160-4.5 Mcg [Symbicort 160-4.5 Mcg Inhaler] 2 puff INHALATION RT-BID Metoprolol Succinate (ER) [Toprol XL] 50 mg PO DAILY Lactulose [Cephulac] 30 gm PO TID #900 ml Carbamide Peroxide [Debrox Otic] 5 drops BOTH EARS BID ml Calcium Acetate [PhosLo] 667 mg PO TID-W/MEALS #90 cap Acetaminophen Tab [Tylenol] 650 mg PO Q6HR PRN tab PRN Reason: Fever And/ Or Pain Sertraline [Zoloft] 50 mg PO DAILY #0 Melatonin 3 mg PO HS PRN PRN Reason: Insomnia HYDROcodone/APAP 5-325MG [Cody 5-325] 1 tab PO Q6HR PRN #12 tab PRN Reason: Pain Changed Ipratropium-Albuterol Nebulize [Duoneb 0.5 mg-3 mg/3 ml Soln] 3 ml INHALATION RT-QID #0 Discontinued Sodium Bicarbonate Tab 1,300 mg PO BID #60 tab hydrALAZINE HCL [Apresoline] 50 mg PO TID #90 tab Discharge Medication List Phenytoin Sodium Extended [Dilantin] 100 mg PO TID 11/29/15 [History] Folic Acid 1 mg PO DAILY 07/22/17 [History] Gemfibrozil [Lopid] 1,200 mg PO HS 09/05/17 [History] Montelukast [Singulair] 10 mg PO HS #30 tab 12/26/17 [Rx] Calcitriol 0.5 mcg PO MOWEFR 07/20/18 [History] Omeprazole [PriLOSEC] 20 mg PO DAILY 07/20/18 [History] Primidone [Mysoline] 50 mg PO BID 07/20/18 [History] Budesonide-Formot 160-4.5 Mcg [Symbicort 160-4.5 Mcg Inhaler] 2 puff INHALATION RT-BID 12/17/18 [History] Metoprolol Succinate (ER) [Toprol XL] 50 mg PO DAILY 03/07/19 [History] Acetaminophen Tab [Tylenol] 650 mg PO Q6HR PRN tab 03/12/19 [Rx] Calcium Acetate [PhosLo] 667 mg PO TID-W/MEALS #90 cap 03/12/19 [Rx] Carbamide Peroxide [Debrox Otic] 5 drops BOTH EARS BID ml 03/12/19 [Rx] Lactulose [Cephulac] 30 gm PO TID #900 ml 03/12/19 [Rx] Sertraline [Zoloft] 50 mg PO DAILY #0 03/12/19 [Rx] Melatonin 3 mg PO HS PRN 03/20/19 [History] Calcium Carbonate [Tums] 500 mg PO BID chew 03/26/19 [Rx] Furosemide [Lasix] 80 mg PO BID@0900,1600 tab 03/26/19 [Rx] HYDROcodone/APAP 5-325MG [Cody 5-325] 1 tab PO Q6HR PRN #12 tab 03/26/19 [Rx] INSULIN LISPRO (HumaLOG) [humaLOG] 0 unit SQ ACHS #1 vial 03/26/19 [Rx] Ipratropium-Albuterol Nebulize [Duoneb 0.5 mg-3 mg/3 ml Soln] 3 ml INHALATION RT-QID #0 03/26/19 [Rx] Sodium Bicarbonate Tab 650 mg PO BID tab 03/26/19 [Rx] amLODIPine [Norvasc] 5 mg PO DAILY tab 03/26/19 [Rx] hydrALAZINE HCL [Apresoline] 100 mg PO TID tab 03/26/19 [Rx] Follow up Appointment(s)/Referral(s): Adal Mari Jr, DO [Primary Care Provider] - 3 Days Ceyc Rosenbaum MD [STAFF PHYSICIAN] - 1 Week Harriet Kwok MD [STAFF PHYSICIAN] - 2 Weeks Aayush Rosas [NON-STAFF] - Kya Kaur MD [Medical Doctor] - 2 Weeks Tavo Winchester DO [STAFF PHYSICIAN] - 1 Week Activity/Diet/Wound Care/Special Instructions: ECF: Diuretics as per nephrology Hemodialysis at [facility] on M,W,F @4:30 p.m. Diet: Renal, consistent carb CBC, BMP, phosphorus in 3 days Discharge Disposition: TRANSFER TO SNF/ECF
[2019-03-26] MEDS ORDERED: HEPARIN SODIUM,PORCINE 5,000 UNIT/ML 1 ML VIAL ONE (10:22)
[2019-03-26] MEDS: LACTULOSE 20 GM/30 ML CUP PO SCH ×3 (10:57→23:54)
[2019-03-26] MEDS: CALCITRIOL 0.25 MCG CAP PO SCH (11:00)
[2019-03-26] MEDS: hydrALAZINE HCL 50 MG TAB PO SCH ×3 (11:01→23:53)
[2019-03-26] MEDS: CALCIUM CARBONATE 500 MG CHEWABLE PO SCH ×2 (11:01→20:37)
[2019-03-26] MEDS: SODIUM BICARBONATE TAB 650 MG TAB PO SCH ×2 (11:01→20:37)
[2019-03-26] MEDS: amLODIPine 5 MG TAB PO SCH (11:01)
[2019-03-26] MEDS: PANTOPRAZOLE 40 MG TABLET PO SCH (11:01)
[2019-03-26] MEDS: FUROSEMIDE 80 MG TAB PO SCH ×2 (11:01→16:02)
[2019-03-26] MEDS: PHENYTOIN SODIUM EXTENDED 100 MG CAP PO SCH ×3 (11:02→23:50)
[2019-03-26] MEDS: FOLIC ACID 1 MG TAB PO SCH (11:05)
[2019-03-26] MEDS: METOPROLOL SUCCINATE (ER) 50 MG TAB.ER.24H PO SCH (11:06)
[2019-03-26] MEDS: HYDROcodone/APAP 5-325MG 1 EACH TAB PO PRN ×3 (11:09→23:56)
[2019-03-26 11:34] LABS: Glucose,Whole Blood 108 mg/dL (75-99)
--- NOTE | 2019-03-26 11:35 | P.PN ---
Subjective Patient is seen in follow-up for acute kidney injury on chronic kidney disease. Now appears to have progressed to end-stage renal disease. Started on hemodialysis in March 24. Tolerating hemodialysis treatments well. No active complaints at this time. Vital signs are stable. General: The patient appeared well nourished and normally developed. HEENT: Head exam is unremarkable. Neck is without jugular venous distension. LUNGS: Breath sounds decreased. HEART: Rate and Rhythm are regular. First and second heart sounds normal. No murmurs, rubs or gallops. ABDOMEN: Abdominal exam reveals normal bowel sounds. Soft. Mild tenderness. EXTREMITITES: 1+ edema. Objective - Vital Signs Vital signs: Vital Signs Temp 98.2 F 03/26/19 11:00 Pulse 76 03/26/19 11:19 Resp 20 03/26/19 11:00 BP 139/59 03/26/19 11:00 Pulse Ox 94 L 03/26/19 11:00 Intake & Output 03/25/19 03/26/19 03/26/19 18:59 06:59 18:59 Intake Total 1202 702 260 Output Total 4800 700 Balance -3598 2 260 Weight 92.8 kg Intake: Oral 802 702 260 Hemodialysis 400 Output: Urine 2400 700 Hemodialysis 2400 Other: Voiding Method Indwelling Catheter Indwelling Catheter Indwelling Catheter # Bowel Movements 1 1 - Labs CBC & Chem 7: 03/26/19 06:37 03/26/19 06:37 Labs: Abnormal Lab Results - Last 24 Hours (Table) 03/25/19 03/25/19 03/25/19 Range/Units 11:46 16:46 21:02 RBC (3.80-5.40) m/uL Hgb (11.4-16.0) gm/dL Hct (34.0-46.0) % MCV (80.0-100.0) fL RDW (11.5-15.5) % Lymphocytes # (1.0-4.8) k/uL Chloride (98-107) mmol/L BUN (7-17) mg/dL Creatinine (0.52-1.04) mg/dL POC Glucose (mg/dL) 120 H 114 H 140 H (75-99) mg/dL Calcium (8.4-10.2) mg/dL 03/26/19 03/26/19 03/26/19 Range/Units 06:09 06:37 06:37 RBC 2.61 L (3.80-5.40) m/uL Hgb 8.5 L (11.4-16.0) gm/dL Hct 26.2 L (34.0-46.0) % MCV 100.4 H (80.0-100.0) fL RDW 16.9 H (11.5-15.5) % Lymphocytes # 0.7 L (1.0-4.8) k/uL Chloride 110 H (98-107) mmol/L BUN 29 H (7-17) mg/dL Creatinine 2.34 H (0.52-1.04) mg/dL POC Glucose (mg/dL) 109 H (75-99) mg/dL Calcium 7.7 L (8.4-10.2) mg/dL Microbiology - Last 24 Hours (Table) 03/20/19 12:08 Blood Culture - Preliminary Blood No Growth after 120 hours 03/21/19 11:27 Blood Culture - Preliminary Blood No Growth after 96 hours Assessment and Plan Plan: Assessment: 1. Acute kidney injury mostly prerenal improved with IV hydration. However the patient is now hypervolemic. Also component of urinary retention. Serologies negative. Due to uremia and no improvement in kidney function, she was started on hemodialysis on March 24. 2. Volume overload. Improving with ultrafiltration. 3. Chronic kidney disease stage IV with baseline creatinine in the range of 2.5-3. 4. Hypocalcemia secondary to chronic kidney disease maintained on PhosLo, Tums and calcitriol. Better. 5. Anemia of chronic kidney disease. Iron replete. Maintained on Aranesp. GI also following. No active bleeding. 6. Metabolic acidosis secondary to chronic kidney disease. Better. 7. Urinary retention status post Espinoza catheter placement. 8. Encephalopathy which is multifactorial in nature. Partially due to uremia. 9. Systolic CHF with ejection fraction of 45-50%. 10. Hypertension with chronic kidney disease. Partially volume sensitive. Better. Plan: Currently seen while undergoing hemodialysis. She is maintained on Saturday schedule. Maintain oral sodium bicarbonate. Maintain Lasix 80 mg orally twice daily. Stable to be discharged from nephrology standpoint.
[2019-03-26] MEDS: INSULIN ASPART (NovoLOG) 100 UNIT/ML VIAL SQ SCH ×3 (11:59→20:37)
[2019-03-26] MEDS: hydrOXYzine PAMOATE 25 MG CAP PO PRN ×2 (12:13→23:51)
--- NOTE | 2019-03-26 16:16 | CDI ---
Documentation Clarification Form Date: 03/26/2019 3:40:20 PM From: Mikki Jim RN, CCDS Admit Date: 03/20/2019 12:30:00 PM Patient Name: Brie Lei Visit Number: [id number] Discharge Date: ATTENTION: The Clinical Documentation Specialists (CDI) and [facility] Coding Staff appreciate your assistance in clarifying documentation. Please respond to the clarification below the line at the bottom and electronically sign. The CDI & [facility] Coding staff will review the response and follow-up if needed. Please note: Queries are made part of the Legal Health Record. If you have any questions, please contact the author of this message via ITS. Dr. Adal Mari CHF is documented in the Nephrology progress notes starting on 03/23/19 and continue in subsequent documentation History/Risk Factors: Diabetes Mellitus, Hypertension, Chronic liver disease, Acute on Chronic renal failure stage IV now ESRD Clinical Indicators: 64-year-old female who present fatigue, headache, weakness, nausea. She has chronic shortness of breath with exertion due to chronic obstructive pulmonary disease. She has coarse breath sounds to auscultation. +1 edema generalized edema bilateral. Oral intake is poor. VS/Pulse OX: 165/72 100 20 97.7 94 % 03/23 Nephrology: mild volume overload. Systolic CHF with ejection fraction of 40-45 % 03/26/19: Volume overload. Improving with ultrafiltrtion Chest x-ray: 03/20: Underlying fibrotic changes. Increasing patchy density right lower lobe may reflect developing pneumonia. Chest x-ray 03/24/19: No acute radiographic process Treatment: Lasix 60 IV Q12 (Changed to Lasix PO Lasix PO BID Monitor I/O Hemodialysis (started on March 24) per orders In your professional opinion, can you please clarify the acuity and type of CHF if known? Systolic Heart Failure: Acute Chronic Acute on Chronic Unable to Determine Other, please specify (Last Revision: August 2017) ARMANID
[2019-03-26 16:29] LABS: Glucose,Whole Blood 118 mg/dL (75-99)
[2019-03-26 20:09] LABS: Glucose,Whole Blood 149 mg/dL (75-99)
[2019-03-26] MEDS: FENOFIBRATE 160 MG TAB PO SCH (20:37)
[2019-03-26] MEDS: MONTELUKAST 10 MG TAB PO SCH (20:37)
--- NOTE | 2019-03-26 20:45 | PN ---
PROGRESS NOTE DATE OF DICTATION: 03/26/2019 Patient is a 64-year-old pleasant white female with history of end-stage renal disease, on hemodialysis that was started 2 days ago. She also has possible underlying chronic liver disease with liver cirrhosis and hyperammonemia. She is presently maintained on lactulose 30 mL 3 times daily. She still continues to be quite sleepy. Denies any new symptoms. PHYSICAL EXAMINATION: She appears comfortable. Quite sleepy, though. VITAL SIGNS: Stable. Blood pressure is 129/48, pulse rate 78, temperature 98.2. HEENT examination unremarkable. Conjunctivae pink. Sclerae anicteric. Oral cavity no lesions. NECK: No JVD or lymph node enlargement. CHEST: Clear to auscultation. HEART: Regular rate and rhythm. ABDOMEN: Soft. Obese. Bowel sounds are positive. No organomegaly. EXTREMITIES: No pedal edema. SKIN: No rashes. NEUROLOGIC: Alert and oriented x3. No focal deficits. LABS: WBC 6.1, hemoglobin 8.5. Platelets are normal. BUN 29, creatinine 2.34. IMPRESSION: 1. Altered mental status and drowsiness, probably metabolic encephalopathy. Ammonia level 2 days ago was within normal limits. Presently on lactulose 30 mL 3 times daily for hyperammonemia. Patient undergoing hemodialysis that was started 2 days ago and overall her clinical condition is improving. 2. Anemia of chronic disease. Hemoglobin remains stable. No active bleeding. RECOMMENDATIONS: 1. Will check ammonia level in the morning. 2. Continue with current management. 3. Monitor CBC on a daily basis. 4. No plans for any endoscopic intervention at the present time. Will follow with you closely during her hospital stay. Thank you for this consultation. MMODL / IJN: [id number] /
[2019-03-27 06:14] LABS: Glucose,Whole Blood 111 mg/dL (75-99)
[2019-03-27] MEDS: CALCIUM ACETATE 667 MG TAB PO SCH ×3 (06:15→16:29)
[2019-03-27] MEDS: ACETAMINOPHEN TAB 325 MG TAB PO PRN (06:15)
[2019-03-27] MEDS: INSULIN ASPART (NovoLOG) 100 UNIT/ML VIAL SQ SCH ×4 (07:03→20:34)
[2019-03-27] MEDS: SYMBICORT 160-4.5 MCG INHALER INHALATION SCH ×2 (07:51→20:16)
[2019-03-27] MEDS: IPRATROPIUM-ALBUTEROL 3 ML NEB INHALATION PRN ×2 (07:51→20:16)
[2019-03-27] MEDS: PHENYTOIN SODIUM EXTENDED 100 MG CAP PO SCH ×3 (08:05→22:42)
[2019-03-27] MEDS: CALCITRIOL 0.25 MCG CAP PO SCH (08:05)
[2019-03-27] MEDS: SODIUM BICARBONATE TAB 650 MG TAB PO SCH ×2 (08:05→20:44)
[2019-03-27] MEDS: amLODIPine 5 MG TAB PO SCH (08:05)
[2019-03-27] MEDS: FUROSEMIDE 80 MG TAB PO SCH ×2 (08:05→16:29)
[2019-03-27] MEDS: hydrALAZINE HCL 50 MG TAB PO SCH ×3 (08:05→22:20)
[2019-03-27] MEDS: METOPROLOL SUCCINATE (ER) 50 MG TAB.ER.24H PO SCH (08:05)
[2019-03-27] MEDS: FOLIC ACID 1 MG TAB PO SCH (08:05)
[2019-03-27] MEDS: LACTULOSE 20 GM/30 ML CUP PO SCH ×3 (08:06→22:20)
[2019-03-27] MEDS: HYDROcodone/APAP 5-325MG 1 EACH TAB PO PRN ×3 (08:06→20:44)
[2019-03-27] MEDS: CALCIUM CARBONATE 500 MG CHEWABLE PO SCH ×2 (08:06→20:44)
[2019-03-27] MEDS: hydrOXYzine PAMOATE 25 MG CAP PO PRN ×2 (08:06→16:29)
[2019-03-27] MEDS: PANTOPRAZOLE 40 MG TABLET PO SCH (08:06)
--- NOTE | 2019-03-27 09:01 | P.PN ---
Subjective Patient is seen in follow-up for acute kidney injury on chronic kidney disease. Now appears to have progressed to end-stage renal disease. Started on hemodialysis in March 24. Tolerating hemodialysis treatments well. No active complaints at this time. Edema improving. Vital signs are stable. General: The patient appeared well nourished and normally developed. HEENT: Head exam is unremarkable. Neck is without jugular venous distension. LUNGS: Breath sounds decreased. HEART: Rate and Rhythm are regular. First and second heart sounds normal. No murmurs, rubs or gallops. ABDOMEN: Abdominal exam reveals normal bowel sounds. Soft. Mild tenderness. EXTREMITITES: Trace edema. Objective - Vital Signs Vital signs: Vital Signs Temp 97.7 F 03/27/19 07:30 Pulse 76 03/27/19 08:00 Resp 16 03/27/19 07:57 BP 142/77 03/27/19 07:30 Pulse Ox 95 03/27/19 07:30 Intake & Output 03/26/19 03/27/19 03/27/19 18:59 06:59 18:59 Intake Total 980 200 Output Total 5000 750 Balance -4020 -750 200 Weight 89.6 kg Intake: Oral 980 200 Output: Urine 2000 750 Hemodialysis 3000 Other: Voiding Method Indwelling Catheter Indwelling Catheter Indwelling Catheter # Bowel Movements 2 1 - Labs CBC & Chem 7: 03/26/19 06:37 03/26/19 06:37 Labs: Abnormal Lab Results - Last 24 Hours (Table) 03/26/19 03/26/19 03/26/19 Range/Units 11:32 15:08 16:27 POC Glucose (mg/dL) 108 H 118 H (75-99) mg/dL Ammonia 42 H (<30) umol/L 03/26/19 03/27/19 Range/Units 20:07 06:12 POC Glucose (mg/dL) 149 H 111 H (75-99) mg/dL Ammonia (<30) umol/L Microbiology - Last 24 Hours (Table) 03/20/19 12:08 Blood Culture - Final Blood No Growth after 144 hours 03/21/19 11:27 Blood Culture - Preliminary Blood No Growth after 120 hours Assessment and Plan Plan: Assessment: 1. Acute kidney injury mostly prerenal initially improved with IV hydration. However the patient is now hypervolemic. Also component of urinary retention. Serologies negative. Due to uremia and no improvement in kidney function, she was started on hemodialysis on March 24. 2. Volume overload. Improving with ultrafiltration. 3. Chronic kidney disease stage IV with baseline creatinine in the range of 2.5-3. 4. Hypocalcemia secondary to chronic kidney disease maintained on PhosLo, Tums and calcitriol. Better. 5. Anemia of chronic kidney disease. Iron replete. Maintained on Aranesp. GI also following. No active bleeding. 6. Metabolic acidosis secondary to chronic kidney disease. Better. 7. Urinary retention status post Espinoza catheter placement. 8. Encephalopathy which is multifactorial in nature. Partially due to uremia. 9. Systolic CHF with ejection fraction of 45-50%. 10. Hypertension with chronic kidney disease. Partially volume sensitive. Better. Plan: Hemodialysis today. She will be maintained on a Saturday schedule. Maintain Lasix 80 mg orally twice daily. Stable to be discharged from nephrology standpoint. Outpatient dialysis has been set up.
--- NOTE | 2019-03-27 10:25 | CDI ---
Documentation Clarification Form Date: 03/27/2019 10:02:10 AM From: Mikki Jim RN, CCDS Admit Date: 03/20/2019 12:30:00 PM Patient Name: Brie Lei Visit Number: [id number] Discharge Date: ATTENTION: The Clinical Documentation Specialists (CDI) and [facility] Coding Staff appreciate your assistance in clarifying documentation. Please respond to the clarification below the line at the bottom and electronically sign. The CDI & [facility] Coding staff will review the response and follow-up if needed. Please note: Queries are made part of the Legal Health Record. If you have any questions, please contact the author of this message via ITS. Dr. Adal Mari The patient presented with the following respiratory symptoms History/Risk Factors: COPD, Diabetes mellitus, Hypertension, Respiratory disorder, Chronic kidney disease stage IV, Chronic respiratory failure, Pneumonia Tobacco use: Former smoker Home oxygen: O2 @ 4/L NC Clinical Indicators: 64-year-old female who present with worsening fatigue and increasing confusion. She has chronic shortness of breath with exertion due to COPD. her breath sounds are coarse to auscultation bilaterally and equal. Vital signs: 03/20/19@ 08:58 137/96 92 22 96 % 2/L NC, 03/27/19 @07:30 142/77 106 16 95 % 4/L NC Pulse ox: 96% on 2/L, 94% on 2/L NC, 90 % 2/L NC, 96 % 4/L NC, 91 % 4/L NC Treatment: Monitor O2 Sat's (titrate) Breathing tx Duonebs Per orders In your professional opinion, can you please clarify if these findings signify one of the following conditions? Acute on Chronic Respiratory Failure, Chronic Respiratory Failure Other Diagnosis, please specify Unable to determine Specificity: If known, further specify (if known): With hypercapnia? (pCO2 >50 and pH <7.35) With hypoxia? (pO2 <60 mm Hg or SpO2 <91% on room air) (Last Query Form Revision: January 2019) MTDD
[2019-03-27 11:09] VITALS: BMI 33.9
[2019-03-27 12:00] LABS: Glucose,Whole Blood 97 mg/dL (75-99)
--- NOTE | 2019-03-27 12:50 | P.PN ---
Progress Note - Text Progress Note Date: 03/27/19 SUBJECTIVE/INTERVAL EVENTS: No acute overnight events. Patient was started on dialysis last Saturday. Patient states that her headache had improved significantly, this morning, had no headache. During dialysis, patient's BP dropped and she started having 8/10 pain headache. Patient still getting dialysis at the time of evaluation. PHYSICAL EXAMINATION: VITAL SIGNS: T 97.9 HR 108 RR 24 BP 197/79 2 sat 93% on 4L O2 via NC GEN.: drowsy but opens eyes to verbal stimuli and answers questions HEENT: NCAT NECK: Supple SKIN AND EXTREMITIES: Warm to touch NEURO: MENTAL STATUS: Patient alert and oriented to self, place, time. CRANIAL NERVES II THROUGH XII: II: Pupils are equal and reactive to light symmetrically. Visual acuity was tested with Snellen chart that needed to be about 6 ft away. Patient could not see anything, so brought it to about 4 feet away from patient. OS 20/70 OD 20/200 III, IV, : Tracks appropriately VII. No clear facial asymmetry. XI: Shoulder shrug intact. XII: Tongue midline without fasciculation or atrophy. MOTOR: At least antigravity in all 4 extremities. SENSORY: Intact to light touch in all 4 extremities. COORDINATION/GAIT: Deferred due to patient's drowsiness MEDICATIONS: Inpatient: Calcitriol, Pantoprazole, Phenytoin, Calcium, Budenoside, Montelukast, Lactulose, Darbepoetin DIAGNOSTICS: Laboratory: B12 262.0 (wnl), methylmalonic acid 0.68 (high), folic acid >24 Ceruloplasmin 32.8 Copper 1489 (wnl) ESR 93 and CRP 14.9 Imaging: CT head without contrast 03/12/2019: Degenerative and nonspecific white matter changes most typical of remote microvascular ischemia. No acute hemorrhage. Partially O Persico. Right mastoidectomy EEG 03/24/19: Limited study, normal EEG. Frontally predominant delta range and theta delta range not epileptiform in nature. There are occasional triphasic waves. These indicate most likely moderate diffuse cerebral dysfunction as may be seen in a toxo metabolic encephalopathy. No seizures were recorded. No epileptiform activity was present. ASSESSMENT and PLAN: Patient is a 64-year-old female with PMHx of COPD, Diabetes Mellitus, GERD/Reflux, Hyperlipidemia, Hypertension, Osteoarthritis (OA), Pneumonia, Respiratory Disorder, Seizure Disorder, Vascular Disorder, hyperparathyroidism, anemia, vitamin B12 deficiency, presented to [facility] for generalized weakness and sore throat/congestion. Altered mental status, likely due to toxic metabolic encephalopathy, multifactorial. Patient's worsening renal functions (creatinine 5.15 on admission, now 4.09), dehydration, significant anemia, hypocalcemia and hyperammonemia are the likely causes. Patient has chronic headaches. She has obesity. CT of the head revealed empty sella. Routine EEG no seizures. Patient now on dialysis. - Primary team to continue with medical management for evaluation and treatment of other medical conditions. - Repeat ammonia 59->38 - Drop Man consulted to rule out any evidence of papilledema. Headaches could also be tension type or from her hx of sinus disease. - ESR 93 and CRP 14.9 are both elevated, but patient with no pain in the temporal region to palpation bilaterally and no visual deficits. Patient also with significant COPD, which could elevated ESR and CRP - Neurology will sign off at this time. Neurology is not available over the weekend in-house. However, feel free to [employer] message me over the weekend if you have any questions or concerns
[2019-03-27 17:07] LABS: Glucose,Whole Blood 111 mg/dL (75-99)
--- NOTE | 2019-03-27 18:07 | P.PN ---
Subjective Progress Note Date: 03/27/19 This is a 64-year-old white female well-known to the practice. She was discharged here from [facility] on 03/12/2019 after being admitted for hepatic encephalopathy and acute on chronic renal failure. She returns now with worsening fatigue and increasing confusion. At her previous admission subacute rehabilitation was recommended and refused by the patient and family. Home care was recommended but also refused after discharge by the family. She is complaining of fatigue headache, weakness, nausea, she denies any chest pains, pressures, has chronic shortness of breath with exertion due to COPD. She was seen and examined emergency room with the nurse practitioner. 03/21/2019: Patient was found in her room today asleep. She was arousable. Staff reports that she will not do anything for herself. She remained quite confused and doesn't seem to have any recollection of her's previous hospital stay. She just asked for her 2 sons and wonders where they are. She is unable to answer my questions significantly and is oriented 1 to self only at this time. 03/22/2019: Patient is resting comfortably in the recliner chair. She is awake and alert, and quite anxious. Staff reports that she's been rather needy and concern. Her and I discussed her recovery and the need for rehabilitation after discharge, and her refusal led to her readmission. She indicates his headache is better. She denies any chest pains, pressures, nausea or vomiting. She complains of some shortness of breath with exertion. She is awake alert and oriented 2 today. She had a Espinoza catheter inserted early this morning after she failed to void. Home this morning is down to 6.8. Nephrology and GI are following. Neurology had seen her on Saturday. Their notes were reviewed today. 03/23/2019 dialysis catheter placement pending for today with initiation of dialysis. Sitting up in chair, fluid overloaded, lethargic. Ammonia 38. Hemoglobin 7. Creatinine down to 4.18. CO2 18 .Maintained on bicarb drip. Neurology evaluation in progress, recommendations pending. Denies nausea vomiting or diarrhea. Diet intake fair, fluctuates. Calcium 6.3, calcium gluconate ordered. Iron studies pending. 03/24/19 afebrile, normal WBC. Lethargic, patient had received morphine ordered from ER, discontinued. Creatinine 4.18, and scheduled for temporal a dialysis catheter today as well as dialysis. Hypertensive, received hydralazine. Hemoglobin 7.6. Denies nausea vomiting or diarrhea. Denies abdominal pain. 03/25/2019 dialysis catheter placed yesterday with initiation of hemodialysis l ast night. Tolerated well. Diuresed well on Lasix IV push with 24-hour I&O reflecting a negative fluid balance. Lasix converted to oral. Creatinine down to 3.22.Scheduled for another hemodialysis today.Home pain medication regimen resumed yesterday. Maintained on oral sodium bicarb. Complains of being tired, not sleeping well. Diet intake improving. Positive bowel movement. Hypertensive, hydralazine further increased. 03/27/2019 refer to discharge summary yesterday for progress note of 03/26/2019. Yesterday, Discharge placed on hold, currently subacute rehabs unable to accommodate hemodialysis chair time at [facility]. Subacute rehab changed to [facility] with dialysis Center changed to [facility]. [facility] authorization pending. Currently denies headache- chronic headaches, currently being evaluated by neurology. EEG report is limited study, results as per neurology. Hemodialysis today. Denies chest pain, palpitations or shortness of breath. Objective - Vital Signs Vital signs: Vital Signs Temp 97.7 F 03/27/19 14:31 Pulse 54 L 03/27/19 16:00 Resp 16 03/27/19 16:00 BP 122/45 03/27/19 14:31 Pulse Ox 97 03/27/19 14:31 Intake & Output 03/26/19 03/27/19 03/27/19 18:59 06:59 18:59 Intake Total 980 1000 Output Total 5000 750 1158 Balance -4020 -750 -158 Weight 89.6 kg 89.6 kg Intake: Oral 980 1000 Output: Urine 2000 750 Hemodialysis 3000 1158 Other: Voiding Method Indwelling Catheter Indwelling Catheter Indwelling Catheter # Voids 425 # Bowel Movements 2 1 - Exam GENERAL: Sitting up in chair, more alert , no acute distress, tired appearing HEAD: Atraumatic, normocephalic. EYES: Pupils equal round and reactive to light, extraocular movements intact, sclera anicteric, conjunctiva are normal. ENT:nares patent, oropharynx clear without exudates. Moist mucous membranes. NECK: Normal range of motion, supple without lymphadenopathy or JVD, no thyromegaly LUNGS: Breath sounds coarse to auscultation bilaterally and equal. No rhonchi, fine bibasilar crackles, No wheezes. HEART: Regular rate and rhythm without murmurs, rubs or gallops.S1S2 Normal. ABDOMEN: Soft, nondistended, nontender, normoactive bowel sounds. No guarding, no rebound. No masses appreciated. EXTREMITIES: Normal range of motion, no pitting, improving generalized edema. No clubbing or cyanosis. NEUROLOGICAL: Cranial nerves II through XII grossly intact. Moves all 4 extremities. SKIN: Warm, Dry, normal turgor, no rashes or lesions noted. - Labs CBC & Chem 7: 03/26/19 06:37 03/26/19 06:37 Labs: Abnormal Lab Results - Last 24 Hours (Table) 03/26/19 03/27/19 03/27/19 Range/Units 20:07 06:12 16:47 POC Glucose (mg/dL) 149 H 111 H 111 H (75-99) mg/dL Microbiology - Last 24 Hours (Table) 03/21/19 11:27 Blood Culture - Final Blood No Growth after 144 hours 03/20/19 12:08 Blood Culture - Final Blood No Growth after 144 hours Assessment and Plan Assessment: (1) Macrocytic anemia, iron studies pending, suspect of chronic disease. GI following, no active bleeding. Current Visit: Yes Status: Acute Code(s): D53.9 - NUTRITIONAL ANEMIA, UNSPECIFIED SNOMED Code(s): 08361891 (2) Hyperammonemia Current Visit: Yes Status: Acute Code(s): E72.20 - DISORDER OF UREA CYCLE METABOLISM, UNSPECIFIED SNOMED Code(s): 4166656 (3) Hypocalcemia secondary to kidney disease Current Visit: Yes Status: Acute Code(s): E83.51 - HYPOCALCEMIA SNOMED Code(s): 1928677 (4) Acute on chronic renal failure, prerenal. Current Visit: No Status: Acute Code(s): N17.9 - ACUTE KIDNEY FAILURE, UNSPECIFIED; N18.9 - CHRONIC KIDNEY DISEASE, UNSPECIFIED SNOMED Code(s): 620719402 (5) Altered mental status, acute hepatic uremic encephalopathy, improving with hemodialysis. Current Visit: No Status: Acute Code(s): R41.82 - ALTERED MENTAL STATUS, UNSPECIFIED SNOMED Code(s): 882065474 (6) Chronic renal disease, stage 4, severely decreased glomerular filtration rate (GFR) between 15-29 mL/min/1.73 square meter. Appears to have progressed to end-stage renal disease, status post dialysis catheter placement with initiation of dialysis. Current Visit: No Status: Acute Code(s): N18.4 - CHRONIC KIDNEY DISEASE, STAGE 4 (SEVERE) SNOMED Code(s): 918560522 (7) Dehydration Current Visit: No Status: Acute Code(s): E86.0 - DEHYDRATION SNOMED Code(s): 24584265 (8) Essential (primary) hypertension Current Visit: No Status: Acute Code(s): I10 - ESSENTIAL (PRIMARY) HYPERTENSION SNOMED Code(s): 59033936 (10) Hyperammonemia Current Visit: No Status: Acute Code(s): E72.20 - DISORDER OF UREA CYCLE METABOLISM, UNSPECIFIED SNOMED Code(s): 4977564 (11) Noncompliance Current Visit: No Status: Acute Code(s): Z91.19 - PATIENT'S NONCOMPLIANCE W OTH MEDICAL TREATMENT AND REGIMEN SNOMED Code(s): 5865695 (12) Pure hypercholesterolemia Current Visit: No Status: Acute Code(s): E78.00 - PURE HYPERCHOLESTEROLEMIA, UNSPECIFIED SNOMED Code(s): 923024179 (13) Readmission after hospitalization within last 30 days Current Visit: No Status: Acute Code(s): KPI5444 - SNOMED Code(s): 201230122 (14) Seizure disorder Current Visit: No Status: Acute Code(s): G40.909 - EPILEPSY, UNSP, NOT INTRACTABLE, WITHOUT STATUS EPILEPTICUS SNOMED Code(s): 691305859 (15)Hypocalcemia (16) urinary retention, Espinoza catheter placed. (17) hypertension, secondary to chronic disease and fluid overload-acute systolic CHF exacerbation, EF 45-50% (18) Chronic hypoxic respiratory failure. Plan: Continue on current medication regime ,monitoring and symptomatic treatment. Hemodialysis as per nephrology. Discharge planning in progress, pending authorization for change in dialysis Center- Subacute rehab changed to [facility] with dialysis Center changed to [facility]. [facility] authorization pe nding. Further recommendations to follow.
[2019-03-27] MEDS ORDERED: ONDANSETRON 4 MG/2 ML VIAL IVP PRN (18:40)
[2019-03-27 20:35] LABS: Glucose,Whole Blood 106 mg/dL (75-99)
[2019-03-27] MEDS: MONTELUKAST 10 MG TAB PO SCH (20:44)
[2019-03-27] MEDS: FENOFIBRATE 160 MG TAB PO SCH (20:44)
[2019-03-28] MEDS: HYDROcodone/APAP 5-325MG 1 EACH TAB PO PRN ×2 (05:37→19:54)
[2019-03-28 07:06] LABS: Glucose,Whole Blood 97 mg/dL (75-99)
[2019-03-28] MEDS: INSULIN ASPART (NovoLOG) 100 UNIT/ML VIAL SQ SCH ×4 (07:29→21:03)
[2019-03-28] MEDS: IPRATROPIUM-ALBUTEROL 3 ML NEB INHALATION PRN ×2 (07:35→20:11)
[2019-03-28] MEDS: SYMBICORT 160-4.5 MCG INHALER INHALATION SCH ×2 (07:35→20:11)
[2019-03-28] MEDS: SODIUM BICARBONATE TAB 650 MG TAB PO SCH ×2 (08:02→19:54)
[2019-03-28] MEDS: hydrALAZINE HCL 50 MG TAB PO SCH ×3 (08:02→21:38)
[2019-03-28] MEDS: FOLIC ACID 1 MG TAB PO SCH (08:02)
[2019-03-28] MEDS: CALCIUM CARBONATE 500 MG CHEWABLE PO SCH ×2 (08:02→19:54)
[2019-03-28] MEDS: PANTOPRAZOLE 40 MG TABLET PO SCH (08:02)
[2019-03-28] MEDS: CALCIUM ACETATE 667 MG TAB PO SCH ×3 (08:02→15:24)
[2019-03-28] MEDS: FUROSEMIDE 80 MG TAB PO SCH ×2 (08:02→15:24)
[2019-03-28] MEDS: amLODIPine 5 MG TAB PO SCH (08:03)
[2019-03-28] MEDS: METOPROLOL SUCCINATE (ER) 50 MG TAB.ER.24H PO SCH (08:03)
[2019-03-28] MEDS: LACTULOSE 20 GM/30 ML CUP PO SCH ×3 (08:03→21:39)
[2019-03-28] MEDS: PHENYTOIN SODIUM EXTENDED 100 MG CAP PO SCH ×3 (08:22→21:38)
[2019-03-28] MEDS: CALCITRIOL 0.25 MCG CAP PO SCH (08:22)
[2019-03-28 11:53] LABS: Glucose,Whole Blood 113 mg/dL (75-99)
--- NOTE | 2019-03-28 14:23 | P.PN ---
Subjective Progress Note Date: 03/28/19 Seen and examined for the follow-up of acute kidney injury on hemodialysis. Last dialysis was Saturday. No nausea vomiting diarrhea. Objective - Vital Signs Vital signs: Vital Signs Temp 98.5 F 03/28/19 05:00 Pulse 86 03/28/19 07:50 Resp 20 03/28/19 05:00 BP 115/56 03/28/19 05:00 Pulse Ox 98 03/28/19 05:00 Intake & Output 03/27/19 03/28/19 03/28/19 18:59 06:59 18:59 Intake Total 1240 990 Output Total 1158 600 Balance 82 390 Weight 89.6 kg Intake: Oral 1240 990 Output: Urine 600 Hemodialysis 1158 Other: Voiding Method Indwelling Catheter Indwelling Catheter Indwelling Catheter # Voids 425 # Bowel Movements 3 - Exam No acute distress S1-S2 heard Lungs clear Right jugular permacath Edema - Labs CBC & Chem 7: 03/26/19 06:37 03/26/19 06:37 Labs: Abnormal Lab Results - Last 24 Hours (Table) 03/27/19 03/27/19 03/28/19 Range/Units 16:47 20:33 11:51 POC Glucose (mg/dL) 111 H 106 H 113 H (75-99) mg/dL Microbiology - Last 24 Hours (Table) 03/21/19 11:27 Blood Culture - Final Blood No Growth after 144 hours Assessment and Plan Assessment: #1 dialysis dependent acute kidney injury secondary to ischemic ATN. Serology is negative. #2 volume overload improving with ultrafiltration #3 chronic kidney disease stage IV with a baseline creatinine of 2.5-3.2 MG per DL. #4 hyperphosphatemia secondary to CK D #5 metabolic acidosis #6 systolic CHF with the EF of 45% #7 hypertension with chronic kidney disease Plan: #1 hemodialysis on Saturday #2 continue with diuretics Lasix 40 mg twice a day #3 stable from nephrology point of view for discharge. Outpatient dialysis has been set up.
[2019-03-28 17:12] LABS: Glucose,Whole Blood 178 mg/dL (75-99)
[2019-03-28] MEDS: FENOFIBRATE 160 MG TAB PO SCH (19:54)
[2019-03-28] MEDS: MONTELUKAST 10 MG TAB PO SCH (19:54)
[2019-03-28 20:47] LABS: Glucose,Whole Blood 106 mg/dL (75-99)
[2019-03-28] MEDS: hydrOXYzine PAMOATE 25 MG CAP PO PRN (21:50)
--- NOTE | 2019-03-28 22:33 | P.PN ---
Subjective Progress Note Date: 03/28/19 Principal diagnosis: Hyperammonemia Patient seen lying in bed reporting that she is doing well. No confusion. Tolerating her diet. No abdominal pain reported. Objective - Vital Signs Vital signs: Vital Signs Temp 98.5 F 03/28/19 05:00 Pulse 86 03/28/19 07:50 Resp 20 03/28/19 05:00 BP 115/56 03/28/19 05:00 Pulse Ox 98 03/28/19 05:00 Intake & Output 03/27/19 03/28/19 03/28/19 18:59 06:59 18:59 Intake Total 1240 990 Output Total 1158 600 Balance 82 390 Weight 89.6 kg Intake: Oral 1240 990 Output: Urine 600 Hemodialysis 1158 Other: Voiding Method Indwelling Catheter Indwelling Catheter Indwelling Catheter # Voids 425 # Bowel Movements 3 - Exam On physical examination, patient appears comfortable in no apparent distress. HEAD: Normocephalic, atraumatic. EYES: No scleral icterus. No conjunctival injection. MOUTH: No lesions, tongue midline. NECK: Trachea midline, no gross abnormalities. CHEST: Clear to auscultation with no wheezing or rhonchi appreciated. HEART: Regular rate and rhythm. ABDOMEN: Soft, obese. Bowel sounds are positive. No organomegaly. No guarding or rigidity. SKIN: No rashes, no jaundice. NEUROLOGIC: Alert and oriented x3, no asterixis. No focal deficits. - Labs CBC & Chem 7: 03/26/19 06:37 03/26/19 06:37 Labs: Abnormal Lab Results - Last 24 Hours (Table) 03/27/19 03/27/19 03/28/19 Range/Units 16:47 20:33 11:51 POC Glucose (mg/dL) 111 H 106 H 113 H (75-99) mg/dL Microbiology - Last 24 Hours (Table) 03/21/19 11:27 Blood Culture - Final Blood No Growth after 144 hours Assessment and Plan (1) Hyperammonemia Narrative/Plan: 64-year-old female with multiple medical comorbidities recently started on hemodialysis therapy during this hospitalization. Found to have elevated ammonia on current hospitalization. Unclear if this is secondary to underlying kidney disease as well as a component of chronic liver disease. Patient is improved on hemodialysis and with treatment with lactulose therapy. Current Visit: Yes Status: Acute Code(s): E72.20 - DISORDER OF UREA CYCLE METABOLISM, UNSPECIFIED SNOMED Code(s): 1124935 Plan: Supportive care Okay for diet Appreciate recommendations by nephrology service, continue hemodialysis further recommendations Continue lactulose, titrated to 2-3 bowel movements daily Okay for discharge from gastroenterology service The gastroenterology service will stand by, please call us back with any questions or concerns
[2019-03-29] MEDS: HYDROcodone/APAP 5-325MG 1 EACH TAB PO PRN (02:10)
[2019-03-29 07:18] LABS: Glucose,Whole Blood 107 mg/dL (75-99)
[2019-03-29] MEDS: CALCIUM ACETATE 667 MG TAB PO SCH ×3 (07:25→16:16)
[2019-03-29] MEDS: LACTULOSE 20 GM/30 ML CUP PO SCH ×3 (07:25→21:03)
[2019-03-29] MEDS: hydrALAZINE HCL 50 MG TAB PO SCH ×3 (07:25→22:08)
[2019-03-29] MEDS: PANTOPRAZOLE 40 MG TABLET PO SCH (07:25)
[2019-03-29] MEDS: INSULIN ASPART (NovoLOG) 100 UNIT/ML VIAL SQ SCH ×4 (07:25→20:47)
[2019-03-29] MEDS: CALCIUM CARBONATE 500 MG CHEWABLE PO SCH ×2 (07:25→21:01)
[2019-03-29] MEDS: CALCITRIOL 0.25 MCG CAP PO SCH (07:26)
[2019-03-29] MEDS: FOLIC ACID 1 MG TAB PO SCH (07:26)
[2019-03-29] MEDS: SODIUM BICARBONATE TAB 650 MG TAB PO SCH ×2 (07:26→21:02)
[2019-03-29] MEDS: METOPROLOL SUCCINATE (ER) 50 MG TAB.ER.24H PO SCH (07:26)
[2019-03-29] MEDS: FUROSEMIDE 80 MG TAB PO SCH ×2 (07:26→16:15)
[2019-03-29] MEDS: amLODIPine 5 MG TAB PO SCH (07:26)
[2019-03-29] MEDS: PHENYTOIN SODIUM EXTENDED 100 MG CAP PO SCH ×3 (07:27→21:02)
[2019-03-29] MEDS: SYMBICORT 160-4.5 MCG INHALER INHALATION SCH ×2 (07:55→19:49)
[2019-03-29] MEDS: IPRATROPIUM-ALBUTEROL 3 ML NEB INHALATION PRN ×3 (07:55→19:49)
[2019-03-29] MEDS: DARBEPOETIN ALFA 60 MCG/0.3 ML SYRINGE SQ SCH (08:44)
--- NOTE | 2019-03-29 11:07 | P.PN ---
Subjective Progress Note Date: 03/29/19 Seen and examined for the follow-up of acute kidney injury on hemodialysis. Last dialysis was Saturday. No nausea vomiting diarrhea. Objective - Vital Signs Vital signs: Vital Signs Temp 98.2 F 03/29/19 05:00 Pulse 84 03/29/19 08:07 Resp 18 03/29/19 05:00 BP 127/74 03/29/19 05:00 Pulse Ox 99 03/29/19 05:00 Intake & Output 03/28/19 03/29/19 03/29/19 19:59 06:59 18:59 Intake Total Output Total Balance Weight Intake: Oral Output: Urine Other: Voiding Method Indwelling Catheter # Voids # Bowel Movements - Exam No acute distress S1-S2 heard Lungs clear Right jugular permacath Edema - Labs CBC & Chem 7: 03/26/19 06:37 03/26/19 06:37 Labs: Abnormal Lab Results - Last 24 Hours (Table) 03/28/19 03/28/19 03/29/19 Range/Units 17:11 20:45 07:16 POC Glucose (mg/dL) 178 H 106 H 107 H (75-99) mg/dL Assessment and Plan Assessment: #1 dialysis dependent acute kidney injury secondary to ischemic ATN. Serology is negative. #2 volume overload improving with ultrafiltration #3 chronic kidney disease stage IV with a baseline creatinine of 2.5-3.2 MG per DL. #4 hyperphosphatemia secondary to CK D #5 metabolic acidosis #6 systolic CHF with the EF of 45% #7 hypertension with chronic kidney disease Plan: #1 hemodialysis on Saturday #2 continue with diuretics Lasix 80 mg twice a day #3 stable from nephrology point of view for discharge. Outpatient dialysis has been set up.
[2019-03-29 11:48] LABS: Glucose,Whole Blood 114 mg/dL (75-99)
[2019-03-29] MEDS: ACETAMINOPHEN TAB 325 MG TAB PO PRN ×2 (13:20→22:07)
--- NOTE | 2019-03-29 15:24 | P.PN ---
Subjective Progress Note Date: 03/29/19 Principal diagnosis: Hepatic encephalopathy, resolved Acute on chronic renal failure, currently making urine, starting hemodialysis Patient's subacute rehab changed to [facility] with dialysis center changed to [facility], authorization pending. Patient actually looking well feeling well no headache no chronic headaches currently being evaluated by neurology hemodialysis tomorrow after which patient will be discharged to subacute rehab [facility] Objective - Vital Signs Vital signs: Vital Signs Temp 98.0 F 03/29/19 12:59 Pulse 103 H 03/29/19 12:59 Resp 17 03/29/19 12:59 BP 148/67 03/29/19 12:59 Pulse Ox 100 03/29/19 12:59 Intake & Output 03/28/19 03/29/19 03/29/19 19:59 06:59 18:59 Intake Total Output Total 1000 Balance -1000 Weight Intake: Oral Output: Urine 1000 Other: Voiding Method Indwelling Catheter # Voids # Bowel Movements - Exam General: [Patient awake, alert and oriented times 3. Patient in no acute distress.] HEENT: [PERRL. EOMI. No pharyngeal erythema or exudate.] Neck: [No adenopathy.] Cardiac: [Heart regular in rate and rhythm. No S3. No S4. No clicks, rubs. No murmur.] Lungs: [Clear to auscultation bilaterally.] Abdomen: [No mass. No organomegaly. Bowel sounds presnt and normoactive in all 4 quadrants.] Obesity Extremes: [No edema no cyanosis no claudication normal pulses] : Normal female genitalia Musculoskeletal: [No joint erythema, edema or tenderness.] Skin: [No rash.] Neurologic: [No lateralizing deficits. CN II - XII grossly intact.] Lymphatic: [No adenopathy.] - Labs CBC & Chem 7: 03/26/19 06:37 03/26/19 06:37 Labs: Abnormal Lab Results - Last 24 Hours (Table) 03/28/19 03/28/19 03/29/19 Range/Units 17:11 20:45 07:16 POC Glucose (mg/dL) 178 H 106 H 107 H (75-99) mg/dL 03/29/19 Range/Units 11:47 POC Glucose (mg/dL) 114 H (75-99) mg/dL Assessment and Plan (1) Anemia Current Visit: Yes Status: Acute Code(s): D64.9 - ANEMIA, UNSPECIFIED SNOMED Code(s): 066759514 (2) Hyperammonemia Current Visit: Yes Status: Acute Code(s): E72.20 - DISORDER OF UREA CYCLE METABOLISM, UNSPECIFIED SNOMED Code(s): 6833688 (3) Renal failure Current Visit: Yes Status: Acute Code(s): N19 - UNSPECIFIED KIDNEY FAILURE SNOMED Code(s): 74329695 (4) Acute on chronic renal failure Current Visit: No Status: Acute Code(s): N17.9 - ACUTE KIDNEY FAILURE, UNSPECIFIED; N18.9 - CHRONIC KIDNEY DISEASE, UNSPECIFIED SNOMED Code(s): 568673036 (5) COPD (chronic obstructive pulmonary disease) Current Visit: No Status: Acute Code(s): J44.9 - CHRONIC OBSTRUCTIVE PULMONARY DISEASE, UNSPECIFIED SNOMED Code(s): 58596678 Plan: Patient had originally been discharged on March 26 Discharge was placed on hold, apparently subacute rehab unable to accommodate hemodialysis chair time at [address] Subacute rehab changed to [facility], dialysis center changed to [facility], authorization pending Anticipate discharge tomorrow after dialysis Time with Patient: Greater than 30
[2019-03-29 17:04] LABS: Glucose,Whole Blood 177 mg/dL (75-99)
[2019-03-29 20:25] LABS: Glucose,Whole Blood 115 mg/dL (75-99)
[2019-03-29] MEDS: MONTELUKAST 10 MG TAB PO SCH (21:02)
[2019-03-29] MEDS: FENOFIBRATE 160 MG TAB PO SCH (21:02)
[2019-03-29] MEDS: hydrOXYzine PAMOATE 25 MG CAP PO PRN (22:07)
[2019-03-30] MEDS: IPRATROPIUM-ALBUTEROL 3 ML NEB INHALATION PRN (07:10)
[2019-03-30] MEDS: SYMBICORT 160-4.5 MCG INHALER INHALATION SCH (07:13)
[2019-03-30] MEDS: INSULIN ASPART (NovoLOG) 100 UNIT/ML VIAL SQ SCH ×2 (07:34→11:57)
[2019-03-30] MEDS: CALCIUM ACETATE 667 MG TAB PO SCH ×2 (07:35→11:58)
[2019-03-30] MEDS: SODIUM BICARBONATE TAB 650 MG TAB PO SCH (07:35)
[2019-03-30] MEDS: FUROSEMIDE 80 MG TAB PO SCH (07:35)
[2019-03-30] MEDS: PANTOPRAZOLE 40 MG TABLET PO SCH (07:35)
[2019-03-30] MEDS: LACTULOSE 20 GM/30 ML CUP PO SCH (07:36)
[2019-03-30] MEDS: CALCITRIOL 0.25 MCG CAP PO SCH (07:36)
[2019-03-30] MEDS: FOLIC ACID 1 MG TAB PO SCH (07:36)
[2019-03-30] MEDS: PHENYTOIN SODIUM EXTENDED 100 MG CAP PO SCH (07:36)
[2019-03-30] MEDS: CALCIUM CARBONATE 500 MG CHEWABLE PO SCH (07:36)
[2019-03-30 09:01] LABS: Anisocytosis Slight; Basophils % (A) 1 %; Eosinophils # (A) 0.1 k/uL (0-0.7); Eosinophils % (A) 2 %; HCT 25.8 % (34.0-46.0); HGB 8.1 gm/dL (11.4-16.0); Hypochromasia Marked; Lymphocytes # (A) 0.7 k/uL (1.0-4.8); Lymphocytes % (A) 15 %; MCH 32.4 pg (25.0-35.0); MCHC 31.2 g/dL (31.0-37.0); MCV 103.7 fL (80.0-100.0); Macrocytosis Moderate; Mean Platelet Volume 6.9; Monocytes # (A) 0.4 k/uL (0-1.0); Monocytes % (A) 7 %; Neutrophils # (A) 3.4 k/uL (1.3-7.7); Neutrophils % (A) 71 %; Platelet Count 127 k/uL (150-450); Poikilocytosis Slight; RBC 2.49 m/uL (3.80-5.40); RDW 16.1 % (11.5-15.5); WBC 4.8 k/uL (3.8-10.6)
[2019-03-30 09:22] LABS: Albumin 3.6 g/dL (3.5-5.0); Calcium 8.3 mg/dL (8.4-10.2); Potassium 4.2 mmol/L (3.5-5.1); Total Bilirubin 0.4 mg/dL (0.2-1.3); Total Protein 6.3 g/dL (6.3-8.2)
[2019-03-30] MEDS: amLODIPine 5 MG TAB PO SCH (09:42)
--- NOTE | 2019-03-30 10:04 | P.DS ---
Providers Date of admission: 03/20/19 12:30 Expected date of discharge: 03/30/19 Attending physician: Adal Mari Consults: 03/20/19 12:31 Consult Physician Urgent Consulting Provider: Kaia Gunderson Consult Reason/Comments: arf Do you want consulting provider notified?: Yes 03/20/19 15:24 Consult Physician Urgent Consulting Provider: Adam Silva Consult Reason/Comments: Metabolic encephalopathy Do you want consulting provider notified?: Yes 03/23/19 11:00 Consult Physician Urgent Consulting Provider: Arnie Galloway Consult Reason/Comments: permacath placement Do you want consulting provider notified?: Yes 03/24/19 10:59 Consult Physician Routine Consulting Provider: Cecy Rosenbaum Consult Reason/Comments: papilloedema Do you want consulting provider notified?: Yes Primary care physician: [facility] Course: Final Diagnoses: (1) Macrocytic anemia, iron studies pending, suspect of chronic disease. GI following, no active bleeding. Current Visit: Yes Status: Acute Code(s): D53.9 - NUTRITIONAL ANEMIA, UNSPECIFIED SNOMED Code(s): 62898012 (2) Hyperammonemia Current Visit: Yes Status: Acute Code(s): E72.20 - DISORDER OF UREA CYCLE METABOLISM, UNSPECIFIED SNOMED Code(s): 8434133 (3) Hypocalcemia secondary to kidney disease Current Visit: Yes Status: Acute Code(s): E83.51 - HYPOCALCEMIA SNOMED Code(s): 8255157 (4) Acute on chronic renal failure, prerenal. Current Visit: No Status: Acute Code(s): N17.9 - ACUTE KIDNEY FAILURE, UNSPECIFIED; N18.9 - CHRONIC KIDNEY DISEASE, UNSPECIFIED SNOMED Code(s): 065739579 (5) Altered mental status, acute hepatic uremic encephalopathy, improving with hemodialysis. Current Visit: No Status: Acute Code(s): R41.82 - ALTERED MENTAL STATUS, UNSPECIFIED SNOMED Code(s): 294643453 (6) Chronic renal disease, stage 4, severely decreased glomerular filtration rate (GFR) between 15-29 mL/min/1.73 square meter. Progressed to end-stage renal disease, status post dialysis catheter placement with initiation of dialysis. Current Visit: No Status: Acute Code(s): N18.4 - CHRONIC KIDNEY DISEASE, STAGE 4 (SEVERE) SNOMED Code(s): 790396025 (7) Dehydration Current Visit: No Status: Acute Code(s): E86.0 - DEHYDRATION SNOMED Code(s): 10164732 (8) Essential (primary) hypertension Current Visit: No Status: Acute Code(s): I10 - ESSENTIAL (PRIMARY) HYPERTENSION SNOMED Code(s): 42581984 (11) Noncompliance Current Visit: No Status: Acute Code(s): Z91.19 - PATIENT'S NONCOMPLIANCE W OTH MEDICAL TREATMENT AND REGIMEN SNOMED Code(s): 1228403 (12) Hypercholesterolemia Current Visit: No Status: Acute Code(s): E78.00 - PURE HYPERCHOLESTEROLEMIA, UNSPECIFIED SNOMED Code(s): 630155737 (14) Seizure disorder Current Visit: No Status: Acute Code(s): G40.909 - EPILEPSY, UNSP, NOT INTRACTABLE, WITHOUT STATUS EPILEPTICUS SNOMED Code(s): 193975265 (15)Hypocalcemia (16) urinary retention, Robison catheter placed. (17) hypertension, secondary to chronic disease and fluid overload-acute systolic CHF exacerbation, EF 45-50% (18) Chronic hypoxic respiratory failure. Hospital course:This is a 64-year-old white female well-known to the practice. She was discharged here from [facility] on 03/12/2019 after being admitted for hepatic encephalopathy and acute on chronic renal failure. She returns now with worsening fatigue and increasing confusion. At her previous admission subacute rehabilitation was recommended and refused by the patient and family. Home care was recommended but also refused after discharge by the family. She is complaining of fatigue headache, weakness, nausea, she denies any chest pains, pressures, has chronic shortness of breath with exertion due to COPD. She was seen and examined emergency room with the nurse practitioner. 03/21/2019: Patient was found in her room today asleep. She was arousable. Staff reports that she will not do anything for herself. She remained quite confused and doesn't seem to have any recollection of her's previous hospital stay. She just asked for her 2 sons and wonders where they are. She is unable to answer my questions significantly and is oriented 1 to self only at this time. 03/22/2019: Patient is resting comfortably in the recliner chair. She is awake and alert, and quite anxious. Staff reports that she's been rather needy and concern. Her and I discussed her recovery and the need for rehabilitation after discharge, and her refusal led to her readmission. She indicates his headache is better. She denies any chest pains, pressures, nausea or vomiting. She complains of some shortness of breath with exertion. She is awake alert and oriented 2 today. She had a Robison catheter inserted early this morning after she failed to void. Home this morning is down to 6.8. Nephrology and GI are following. Neurology had seen her on Saturday. Their notes were reviewed today. 03/23/2019 dialysis catheter placement pending for today with initiation of dialysis. Sitting up in chair, fluid overloaded, lethargic. Ammonia 38. Hemoglobin 7. Creatinine down to 4.18. CO2 18 .Maintained on bicarb drip. Neurology evaluation in progress, recommendations pending. Denies nausea vomiting or diarrhea. Diet intake fair, fluctuates. Calcium 6.3, calcium gluc raymon ordered. Iron studies pending. 03/24/19 afebrile, normal WBC. Lethargic, patient had received morphine ordered from ER, discontinued. Creatinine 4.18, and scheduled for temporal a dialysis catheter today as well as dialysis. Hypertensive, received hydralazine. Hemoglobin 7.6. Denies nausea vomiting or diarrhea. Denies abdominal pain. 03/25/2019 dialysis catheter placed yesterday with initiation of hemodialysis last night. Tolerated well. Diuresed well on Lasix IV push with 24-hour I&O reflecting a negative fluid balance. Lasix converted to oral. Creatinine down to 3.22.Scheduled for another hemodialysis today.Home pain medication regimen resumed yesterday. Maintained on oral sodium bicarb. Complains of being tired, not sleeping well. Diet intake improving. Positive bowel movement. Hypertensive, hydralazine further increased. 03/27/2019 refer to discharge summary yesterday for progress note of 03/26/2019. Yesterday, Discharge placed on hold, currently subacute rehabs unable to accommodate hemodialysis chair time at [facility]. Subacute rehab changed to [facility] with dialysis Center changed to [facility]. [facility] authorization pending. Currently denies headache- chronic headaches, currently being evaluated by neurology. EEG report is limited study, results as per neurology. Hemodialysis today. Denies chest pain, palpitations or shortness of breath. Maintained on hemodialysis as per nephrology with significant clinical improvement. Denies chest pain, palpitations or shortness of breath. Denies lightheadedness, dizziness or focal deficits. Cleared by all consults for discharge. Patient is being discharged to [facility] subacute rehab in stable condition with guarded prognosis. - Exam GENERAL: ALert & POriented X3, no acute distress. LUNGS: Breath sounds coarse to auscultation bilaterally and equal. No rhonchi, fine bibasilar crackles, No wheezes. HEART: Regular rate and rhythm without murmurs, rubs or gallops.S1S2 Normal. ABDOMEN: Soft, nondistended, nontender, normoactive bowel sounds. No guarding, no rebound. No masses appreciated. NEUROLOGICAL: No focal deficits. The impression and plan of care has been dictated as directed. : I performed a history and examination of this patient, discussed the same with the dictator. I agree with the dictator's note ,documented as a scribe. Any additional findings or plans will be noted. Patient Condition at Discharge: Stable Plan - Discharge Summary Discharge Rx Participant: No New Discharge Prescriptions: New hydrALAZINE HCL [Apresoline] 100 mg PO TID tab Furosemide [Lasix] 80 mg PO BID@0900,1600 tab amLODIPine [Norvasc] 5 mg PO DAILY tab Sodium Bicarbonate Tab 650 mg PO BID tab Calcium Carbonate [Tums] 500 mg PO BID chew INSULIN LISPRO (HumaLOG) [humaLOG] 0 unit SQ ACHS #1 vial Continue Phenytoin Sodium Extended [Dilantin] 100 mg PO TID Folic Acid 1 mg PO DAILY Gemfibrozil [Lopid] 1,200 mg PO HS Montelukast [Singulair] 10 mg PO HS #30 tab Omeprazole [PriLOSEC] 20 mg PO DAILY Calcitriol 0.5 mcg PO MOWEFR Primidone [Mysoline] 50 mg PO BID Budesonide-Formot 160-4.5 Mcg [Symbicort 160-4.5 Mcg Inhaler] 2 puff INHALATION RT-BID Metoprolol Succinate (ER) [Toprol XL] 50 mg PO DAILY Lactulose [Cephulac] 30 gm PO TID #900 ml Carbamide Peroxide [Debrox Otic] 5 drops BOTH EARS BID ml Calcium Acetate [PhosLo] 667 mg PO TID-W/MEALS #90 cap Acetaminophen Tab [Tylenol] 650 mg PO Q6HR PRN tab PRN Reason: Fever And/ Or Pain Sertraline [Zoloft] 50 mg PO DAILY #0 Melatonin 3 mg PO HS PRN PRN Reason: Insomnia HYDROcodone/APAP 5-325MG [[place] 5-325] 1 tab PO Q6HR PRN #12 tab PRN Reason: Pain Changed Ipratropium-Albuterol Nebulize [Duoneb 0.5 mg-3 mg/3 ml Soln] 3 ml INHALATION RT-QID #0 Discontinued Sodium Bicarbonate Tab 1,300 mg PO BID #60 tab hydrALAZINE HCL [Apresoline] 50 mg PO TID #90 tab Discharge Medication List Phenytoin Sodium Extended [Dilantin] 100 mg PO TID 11/29/15 [History] Folic Acid 1 mg PO DAILY 07/22/17 [History] Gemfibrozil [Lopid] 1,200 mg PO HS 09/05/17 [History] Montelukast [Singulair] 10 mg PO HS #30 tab 12/26/17 [Rx] Calcitriol 0.5 mcg PO MOWEFR 07/20/18 [History] Omeprazole [PriLOSEC] 20 mg PO DAILY 07/20/18 [History] Primidone [Mysoline] 50 mg PO BID 07/20/18 [History] Budesonide-Formot 160-4.5 Mcg [Symbicort 160-4.5 Mcg Inhaler] 2 puff INHALATION RT-BID 12/17/18 [History] Metoprolol Succinate (ER) [Toprol XL] 50 mg PO DAILY 03/07/19 [History] Acetaminophen Tab [Tylenol] 650 mg PO Q6HR PRN tab 03/12/19 [Rx] Calcium Acetate [PhosLo] 667 mg PO TID-W/MEALS #90 cap 03/12/19 [Rx] Carbamide Peroxide [Debrox Otic] 5 drops BOTH EARS BID ml 03/12/19 [Rx] Lactulose [Cephulac] 30 gm PO TID #900 ml 03/12/19 [Rx] Sertraline [Zoloft] 50 mg PO DAILY #0 03/12/19 [Rx] Melatonin 3 mg PO HS PRN 03/20/19 [History] Calcium Carbonate [Tums] 500 mg PO BID chew 03/26/19 [Rx] Furosemide [Lasix] 80 mg PO BID@0900,1600 tab 03/26/19 [Rx] HYDROcodone/APAP 5-325MG [[place] 5-325] 1 tab PO Q6HR PRN #12 tab 03/26/19 [Rx] INSULIN LISPRO (HumaLOG) [humaLOG] 0 unit SQ ACHS #1 vial 03/26/19 [Rx] Ipratropium-Albuterol Nebulize [Duoneb 0.5 mg-3 mg/3 ml Soln] 3 ml INHALATION RT-QID #0 03/26/19 [Rx] Sodium Bicarbonate Tab 650 mg PO BID tab 03/26/19 [Rx] amLODIPine [Norvasc] 5 mg PO DAILY tab 03/26/19 [Rx] hydrALAZINE HCL [Apresoline] 100 mg PO TID tab 03/26/19 [Rx] Follow up Appointment(s)/Referral(s): Adal Mari Jr, DO [Primary Care Provider] - 3 Days Cecy Rosenbaum MD [STAFF PHYSICIAN] - 1 Week Harriet Kwok MD [STAFF PHYSICIAN] - 2 Weeks Aayush Rosas [NON-STAFF] - Kya Kaur MD [Medical Doctor] - 2 Weeks Tavo Winchester DO [STAFF PHYSICIAN] - 1 Week Activity/Diet/Wound Care/Special Instructions: ECF: [facility] Hemodialysis at [facility] on M,W,F @2:30 p.m., Please arrive Saturday04/01/19 at 2:00pm for paperwork. Hemodialysis completed Saturday03/30/19 Diet: Renal, consistent carb CBC, BMP, phosphorus in 3 days robison inserted 03/21/19 for Retention Discharge Disposition: TRANSFER TO SNF/ECF
[2019-03-30] MEDS: hydrALAZINE HCL 50 MG TAB PO SCH (10:22)
[2019-03-30] MEDS: METOPROLOL SUCCINATE (ER) 50 MG TAB.ER.24H PO SCH (11:54)
[2019-03-30] MEDS: HYDROcodone/APAP 5-325MG 1 EACH TAB PO PRN (11:58)
[2019-03-30 12:04] LABS: Glucose,Whole Blood 101 mg/dL (75-99)
[2019-03-30 14:13] VITALS: BP 118/71; PULSE 101; RESP 18; TEMP 98.3
--- NOTE | 2019-03-30 16:57 | PN ---
PROGRESS NOTE The patient is seen for followup for end-stage renal disease. She has been started on dialysis this admission. Mental status has improved significantly. Volume status has also improved. The patient will be discharged today. She will be going to [facility] for outpatient dialysis. On examination today, blood pressure was 138/68, heart rate 92 per minute, patient is afebrile. Examination of the heart S1, S2. Examination of the lungs, bilateral breath sounds are heard. Abdomen is soft, nontender. Examination of lower extremities shows no significant edema. PET TRAINING INSTRUCTOR exam grossly intact. LABS: Hemoglobin 8.1 g/dL, sodium 142, potassium 4.2, creatinine 3.1. ASSESSMENT: 1. End-stage renal disease, currently maintained on a Saturday, Saturday, Saturday schedule for hemodialysis. The patient can be discharged with plans to follow up with hemodialysis as outpatient. 2. Encephalopathy, mainly uremic, currently improved. 3. Volume overload, now improved. 4. Diastolic heart failure, ejection fraction 45%. PLAN: Continue to maintain patient on hemodialysis. I doubt that she will be able to come off renal replacement therapy. MMODL / IJN: [id number] /
--- NOTE | 2019-03-31 12:10 | CDI ---
Documentation Clarification Form Date: 03/31/19 From: Emilia Killian Phone: If you have a question about this query, please contact Nata Kwon, Restaurant Crew Person at [phone] between 8am and 5pm. Admit Date: 03/20/19 Discharge Date: 03/30/19 Patient Name: Brie Lei Visit Number: [id number] ATTENTION: The Clinical Documentation Specialists (CDI) and [facility] Coding Staff appreciate your assistance in clarifying documentation. Please respond to the clarification below the line at the bottom and electronically sign. The CDI & [facility] Coding staff will review the response and follow-up if needed. Please note: Queries are made part of the Legal Health Record. If you have any questions, please contact the author of this message via ITS. Dear Dr. Adal Mari, The diagnosis of possible pneumonia was documented in the ED note, neuro consult, H&P, and PNs 03/23, 03/24 & 03/27, but is not noted in subsequent documentation. History/Risk Factors: COPD, DM, HTN, seizures, hepatic encephalopathy, chronic liver disease, acute on chronic kidney disease Clinical Indicators: She has chronic shortness of breath with exertion due to chronic obstructive pulmonary disease.She has coarse breath sounds to auscultation.+1 edema generalized edema bilateral.Oral intake is poor. VS/Pulse OX: 165/72 100 20 97.7 94 % Chest x-ray: 03/20-increasing patchy density right lower lobe may reflect developing pneumonia Chest x-ray 03/24- No acute radiographic process Treatment: IV Levaquin - one dose, no antibiotics at discharge, nebulizer Please clarify if the pneumonia was Present/active/treated this admission Ruled out Other, please specify Clinically unable to determine MTDD
--- NOTE | 2019-04-07 10:35 | CDI ---
Patient was treated for early pneumonia approximately 1 week prior to admission so there may be evidence on chest x-ray of a partially treated pneumonic process Documentation Clarification Form Date: 03/31/19 From: Emilia Killian Phone: If you have a question about this query, please contact Nata Kwon, School Bus Inspector at [phone] between 8am and 5pm. Admit Date: 03/20/19 Discharge Date: 03/30/19 Patient Name: Brie Lei Visit Number: [id number] ATTENTION: The Clinical Documentation Specialists (CDI) and [facility] Coding Staff appreciate your assistance in clarifying documentation. Please respond to the clarification below the line at the bottom and electronically sign. The CDI & [facility] Coding staff will review the response and follow-up if needed. Please note: Queries are made part of the Legal Health Record. If you have any questions, please contact the author of this message via ITS. Dear Dr. Adal Mari, The diagnosis of possible pneumonia was documented in the ED note, neuro consult, H&P, and PNs 03/23, 03/24 & 03/27, but is not noted in subsequent documentation. History/Risk Factors: COPD, DM, HTN, seizures, hepatic encephalopathy, chronic liver disease, acute on chronic kidney disease Clinical Indicators: She has chronic shortness of breath with exertion due to chronic obstructive pulmonary disease.She has coarse breath sounds to auscultation.+1 edema generalized edema bilateral.Oral intake is poor. VS/Pulse OX: 165/72 100 20 97.7 94 % Chest x-ray: 03/20-increasing patchy density right lower lobe may reflect developing pneumonia Chest x-ray 03/24- No acute radiographic process Treatment: IV Levaquin - one dose, no antibiotics at discharge, nebulizer Please clarify if the pneumonia was Present/active/treated this admission Ruled out Other, please specify Clinically unable to determine MTDD
== END 2019-03-30 13:26 | DRG 291 ==
LOC: EC 08:57 → 3SCARD 12:30 → 4MS4W 03-27 21:24
PROVIDERS: ADMIT Family Medicine; ATTEND Family Medicine
PROC: 0JH63XZ Insertion of Tunneled Vascular Access Device into Chest Subcutaneous Tissue and Fascia, Percutaneous Approach (ICD-10-PCS; principal; 2019-03-24 10:20)
PROC: 02H633Z Insertion of Infusion Device into Right Atrium, Percutaneous Approach (ICD-10-PCS; 2019-03-24 10:20)
PROC: 5A1D70Z Performance of Urinary Filtration, Intermittent, Less than 6 Hours Per Day (ICD-10-PCS; 2019-03-24 10:20)
DX: I13.2 Hypertensive heart and chronic kidney disease with heart failure and with stage 5 chronic kidney disease, or end stage renal disease (principal); N17.0 Acute kidney failure with tubular necrosis; I50.23 Acute on chronic systolic (congestive) heart failure; N18.6 End stage renal disease; K72.00 Acute and subacute hepatic failure without coma; J18.9 Pneumonia, unspecified organism; F31.30 Bipolar disorder, current episode depressed, mild or moderate severity, unspecified; E72.20 Disorder of urea cycle metabolism, unspecified; E87.2 Acidosis; J44.1 Chronic obstructive pulmonary disease with (acute) exacerbation; J96.11 Chronic respiratory failure with hypoxia; E11.22 Type 2 diabetes mellitus with diabetic chronic kidney disease; E11.40 Type 2 diabetes mellitus with diabetic neuropathy, unspecified; K72.10 Chronic hepatic failure without coma; K72.90 Hepatic failure, unspecified without coma; E66.01 Morbid (severe) obesity due to excess calories; E86.0 Dehydration; K76.0 Fatty (change of) liver, not elsewhere classified; D63.1 Anemia in chronic kidney disease; E53.8 Deficiency of other specified B group vitamins; E55.9 Vitamin D deficiency, unspecified; E21.3 Hyperparathyroidism, unspecified; E78.5 Hyperlipidemia, unspecified; E78.00 Pure hypercholesterolemia, unspecified; I44.7 Left bundle-branch block, unspecified; D53.9 Nutritional anemia, unspecified; F41.9 Anxiety disorder, unspecified; G40.909 Epilepsy, unspecified, not intractable, without status epilepticus; R51 Headache; R33.9 Retention of urine, unspecified; G89.29 Other chronic pain; M54.9 Dorsalgia, unspecified; K58.9 Irritable bowel syndrome, unspecified; K21.9 Gastro-esophageal reflux disease without esophagitis; R27.8 Other lack of coordination; M19.90 Unspecified osteoarthritis, unspecified site; H91.90 Unspecified hearing loss, unspecified ear; Z68.34 Body mass index [BMI] 34.0-34.9, adult; Z99.2 Dependence on renal dialysis; Z99.81 Dependence on supplemental oxygen; Z79.51 Long term (current) use of inhaled steroids; Z79.899 Other long term (current) drug therapy; Z91.19 Patient's noncompliance with other medical treatment and regimen; Z71.3 Dietary counseling and surveillance; Z87.891 Personal history of nicotine dependence; Z86.79 Personal history of other diseases of the circulatory system; Z87.442 Personal history of urinary calculi; Z87.01 Personal history of pneumonia (recurrent); Z90.710 Acquired absence of both cervix and uterus; Z98.890 Other specified postprocedural states; Z88.0 Allergy status to penicillin; Z83.3 Family history of diabetes mellitus; Z82.49 Family history of ischemic heart disease and other diseases of the circulatory system
CPT/HCPCS: 36415; 36558; 71045; 71046; 74018; 76937; 77001; 80048; 80053; 80185; 80306; 81001; 82140; 82272; 82306; 82330; 82390; 82525; 82607; 82728; 82746; 83540; 83550; 83605; 83735; 83921; 83970; 84100; 84484; 85025; 85610; 85652; 85730; 86038; 86140; 86160; 86255; 86334; 86335; 86704; 86706; 86803; 86850; 86870; 86880; 86900; 86901; 86902; 86920; 87040; 87340; 90935; 93005; 94640; 94760; 95819; 96361; 96365; 96375; 99285

== ENCOUNTER 2019-05-24 19:01 | Emergency (ER) | payer OTHER ==
--- NOTE | 2019-05-24 19:55 | XR ---
EXAMINATION TYPE: XR chest 2V DATE OF EXAM: 05/24/2019 COMPARISON: 03/24/2019 HISTORY: Check line placement TECHNIQUE: 2 views FINDINGS: There is right central venous catheter with tip in the right atrium. No pneumothorax. There are bilateral healing rib fractures. There is some mild atelectasis at the right and left lung base. IMPRESSION: Atelectasis at the lung bases increased slightly compared to last exam. Healing multiple bilateral rib fractures.
--- NOTE | 2019-05-24 19:58 | ED ---
General Adult HPI - General Chief complaint: Recheck/Abnormal Lab/Rx Stated complaint: weakness Time Seen by Provider: 05/24/19 19:23 Source: patient, RN notes reviewed, old records reviewed Mode of arrival: ambulatory Limitations: no limitations - History of Present Illness Initial comments: 64-year-old female patient past history significant for end-stage renal disease on hemodialysis. Last 6 weeks presents to ED for chief complaint of missed dialysis, feeling generally unwell. Patient reports that she goes to hemodialysis on Saturday and Saturday. Patient forcibly last dialysis that she had was on Saturday the . Patient feels as if she is retaining fluid. Denies any focal area of pain. Denies any other complaints. Patient does still make urine. Systemic: Pt denies fatigue, fever/chills, rash. Pt denies weakness, night sweats, weight loss. Neuro: Pt denies headache, visual disturbances, syncope or pre-syncope. HEENT: Pt denies ocular discharge or irritation, otalgia, rhinorrhea, pharyngitis or notable lymphadenopathy. Cardiopulmonary: Pt denies chest pain, SOB, heart palpitations, dyspnea on exertion. Abdominal/GI: Pt denies abdominal pain, n/v/d. : Pt denies dysuria, burning w/ urination, frequency/urgency. Denies new onset urinary or bowel incontinence. MSK: Pt denies myalgia, loss of strength or function in extremities. Neuro: Pt denies new onset weakness, paresthesias. - Related Data Home Medications Medication Instructions Recorded Confirmed Phenytoin Sodium Extended 100 mg PO TID 11/29/15 03/20/19 [Dilantin] Folic Acid 1 mg PO DAILY 07/22/17 03/20/19 Gemfibrozil [Lopid] 1,200 mg PO HS 09/05/17 03/20/19 Calcitriol 0.5 mcg PO MOWEFR 07/20/18 03/20/19 Omeprazole [PriLOSEC] 20 mg PO DAILY 07/20/18 03/20/19 Primidone [Mysoline] 50 mg PO BID 07/20/18 03/20/19 Budesonide-Formot 160-4.5 Mcg 2 puff INHALATION RT-BID 12/17/18 03/20/19 [Symbicort 160-4.5 Mcg Inhaler] Metoprolol Succinate (ER) [Toprol 50 mg PO DAILY 03/07/19 03/20/19 XL] Melatonin 3 mg PO HS PRN 03/20/19 03/20/19 Previous Rx's Medication Instructions Recorded Montelukast [Singulair] 10 mg PO HS #30 tab 12/26/17 Acetaminophen Tab [Tylenol] 650 mg PO Q6HR PRN tab 03/12/19 Calcium Acetate [PhosLo] 667 mg PO TID-W/MEALS #90 cap 03/12/19 Carbamide Peroxide [Debrox Otic] 5 drops BOTH EARS BID ml 03/12/19 Lactulose [Cephulac] 30 gm PO TID #900 ml 03/12/19 Sertraline [Zoloft] 50 mg PO DAILY #0 03/12/19 Calcium Carbonate [Tums] 500 mg PO BID chew 03/26/19 Furosemide [Lasix] 80 mg PO BID@0900,1600 tab 03/26/19 HYDROcodone/APAP 5-325MG [[place] 1 tab PO Q6HR PRN #12 tab 03/26/19 5-325] INSULIN LISPRO (HumaLOG) [humaLOG] 0 unit SQ ACHS #1 vial 03/26/19 Ipratropium-Albuterol Nebulize 3 ml INHALATION RT-QID #0 03/26/19 [Duoneb 0.5 mg-3 mg/3 ml Soln] Sodium Bicarbonate Tab 650 mg PO BID tab 03/26/19 amLODIPine [Norvasc] 5 mg PO DAILY tab 03/26/19 hydrALAZINE HCL [Apresoline] 100 mg PO TID tab 03/26/19 Allergies Allergy/AdvReac Type Severity Reaction Status Date / Time Penicillins Allergy Mild Swelling Verified 05/24/19 19:20 Review of Systems ROS Statement: Those systems with pertinent positive or pertinent negative responses have been documented in the HPI. ROS Other: All systems not noted in ROS Statement are negative. Past Medical History Past Medical History: COPD, Diabetes Mellitus, GERD/Reflux, Hyperlipidemia, Hypertension, Osteoarthritis (OA), Pneumonia, Respiratory Disorder, Seizure Disorder, Vascular Disorder Additional Past Medical History / Comment(s): Pt recently admitted to [facility] on 03/07/19 with hepatic encephalopathy/chronic liver disease probably d/t fatty liver advancing to chronic liver disease with possible cirrhosis/acute on chronic renal failure/acute on chronic COPD, AMS d/t elevated ammonia levels/metabolic acidosis/ electrolyte disturbances. Other hx: High ammonia levels, chronic liver disease, kidney stones, CKD stage IV, chronic respiratory failure with home O2 at 4L/NC, NIDDM type II, neuropathy bilateral feet, IBS, arthritis in multiple joints, chronic back pain, current problems with weakness, generalized edema. History of Any Multi-Drug Resistant Organisms: None Reported Past Surgical History: Ear Surgery, Hysterectomy, Orthopedic Surgery Additional Past Surgical History / Comment(s): Multiple surgeries/ESWL for kidney stones, bilateral caratid endartectomies, L ankle surgery with metal esteban/pin, R ear surgery for deteriorating eardrum, sinus surgery, colonoscopy. Past Anesthesia/Blood Transfusion Reactions: No Reported Reaction Past Psychological History: Anxiety, Bipolar, Depression Smoking Status: Former smoker - Past Family History Mother Family Medical History: Diabetes Mellitus, Hypertension Father Family Medical History: Hypertension General Exam - General Exam Comments Initial Comments: Constitutional: NAD, AOX3, Pt has pleasant affect. HEENT: NC/AT, trachea midline, neck supple, no lymphadenopathy. Posterior pharynx non erythematous, without exudates. External ears appear normal, without discharge. Mucous membranes moist. Eyes PERRLA, EOM intact. There is no scleral icterus. No pallor noted. Cardiopulmonary: RRR, no murmurs, rubs or gallops, no JVD noted. Lungs CTAB in anterior and posterior rascon. No peripheral edema. Abdominal exam: Abdomen soft and non-distended. Abdomen non-tender to palpation in all 4 quadrants. Bowel sounds active in LLQ. No hepatosplenomegaly. No ecchymosis Neuro: CN II-XII grossly intact. No nuchal rigidity. No raccon eyes, no christiansen sign, no hemotympanum. No cervical spinal tenderness. MSK: No posterior calf tenderness bilaterally, homans sign negative bilaterally. Posterior tibialis and radial pulse +2 bilaterally. Sensation intact in upper and lower extremities. Full active ROM in upper and lower extremities, 5/5 stregnth. Limitations: no limitations Course Vital Signs 05/24/19 05/24/19 05/24/19 19:15 20:07 21:24 Temperature 97.9 F 98.3 F 97.8 F Pulse Rate 89 83 91 Respiratory 20 20 18 Rate Blood Pressure 147/80 158/76 153/76 O2 Sat by Pulse 100 98 100 Oximetry Medical Decision Making - Medical Decision Making 64-year-old female patient past history significant for end-stage renal disease on hemodialysis. Last 6 weeks presents to ED for chief complaint of missed dialysis, feeling generally unwell. Patient reports that she goes to hemodialysis on Saturday and Saturday. Patient forcibly last dialysis that she had was on Saturday the . Patient feels as if she is retaining fluid. Denies any focal area of pain. Denies any other complaints. Patient does still make urine. Patient vital signs stable, afebrile. Physical exam didn't acute pathology. No signs of fluid overload, no peripheral edema, lungs are clear, no crackles. Investigations overall stable, potassium 4.5. Phosphorus 5.6. Influenza is negative. Chest x-ray did not display any sign of fluid overload. EKG displayed left bundle-branch with history. Repeat examination patient plans a very mild headache. one dose of Tylenol. Will discharge will go to her dialysis tomorrow as scheduled. Reports that she has a transportation there. Case discussed with Dr. Merchant. - Lab Data Result diagrams: 05/24/19 20:22 05/24/19 20:22 Lab Results 05/24/19 05/24/19 05/24/19 Range/Units 20:06 20:22 20:22 WBC 4.0 (3.8-10.6) k/uL RBC 3.37 L (3.80-5.40) m/uL Hgb 10.4 L (11.4-16.0) gm/dL Hct 34.8 (34.0-46.0) % MCV 103.3 H (80.0-100.0) fL MCH 30.8 (25.0-35.0) pg MCHC 29.8 L (31.0-37.0) g/dL RDW 15.2 (11.5-15.5) % Plt Count 178 (150-450) k/uL Neutrophils % 68 % Lymphocytes % 18 % Monocytes % 8 % Eosinophils % 3 % Basophils % 0 % Neutrophils # 2.7 (1.3-7.7) k/uL Lymphocytes # 0.7 L (1.0-4.8) k/uL Monocytes # 0.3 (0-1.0) k/uL Eosinophils # 0.1 (0-0.7) k/uL Basophils # 0.0 (0-0.2) k/uL Hypochromasia Moderate Macrocytosis Slight Sodium 141 (137-145) mmol/L Potassium 4.5 (3.5-5.1) mmol/L Chloride 110 H (98-107) mmol/L Carbon Dioxide 22 (22-30) mmol/L Anion Gap 9 mmol/L BUN 42 H (7-17) mg/dL Creatinine 2.94 H (0.52-1.04) mg/dL Est GFR (CKD-EPI)AfAm 19 (>60 ml/min/1.73 sqM) Est GFR (CKD-EPI)NonAf 16 (>60 ml/min/1.73 sqM) Glucose 79 (74-99) mg/dL Calcium 8.5 (8.4-10.2) mg/dL Phosphorus 5.6 H (2.5-4.5) mg/dL Magnesium 2.0 (1.6-2.3) mg/dL Total Bilirubin 0.3 (0.2-1.3) mg/dL AST 19 (14-36) U/L ALT 9 (4-34) U/L Alkaline Phosphatase 202 H (38-126) U/L Total Protein 6.7 (6.3-8.2) g/dL Albumin 3.6 (3.5-5.0) g/dL Influenza Type A RNA Not Detected (Not Detectd) Influenza Type B (PCR) Not Detected (Not Detectd) Disposition Clinical Impression: ESRD (end stage renal disease) on dialysis Disposition: HOME SELF-CARE Condition: Stable Instructions (If sedation given, give patient instructions): Dialysis Diet (DC), Hemodialysis (DC) Additional Instructions: Go to dialysis appointment tomorrow as scheduled. Follow-up with primary care provider in 1-2 days. Return to ER if condition worsens. Is patient prescribed a controlled substance at d/c from ED?: No Referrals: Adal Mari Jr, [Primary Care Provider] - 1-2 days
[2019-05-24 20:53] LABS: Basophils % (A) 0 %; Eosinophils # (A) 0.1 k/uL (0-0.7); Eosinophils % (A) 3 %; HCT 34.8 % (34.0-46.0); HGB 10.4 gm/dL (11.4-16.0); Hypochromasia Moderate; Lymphocytes # (A) 0.7 k/uL (1.0-4.8); Lymphocytes % (A) 18 %; MCH 30.8 pg (25.0-35.0); MCHC 29.8 g/dL (31.0-37.0); MCV 103.3 fL (80.0-100.0); Macrocytosis Slight; Mean Platelet Volume 7.7; Monocytes # (A) 0.3 k/uL (0-1.0); Monocytes % (A) 8 %; Neutrophils # (A) 2.7 k/uL (1.3-7.7); Neutrophils % (A) 68 %; Platelet Count 178 k/uL (150-450); RBC 3.37 m/uL (3.80-5.40); RDW 15.2 % (11.5-15.5)
[2019-05-24 21:12] LABS: Albumin 3.6 g/dL (3.5-5.0); Calcium 8.5 mg/dL (8.4-10.2); Phosphorus 5.6 mg/dL (2.5-4.5); Potassium 4.5 mmol/L (3.5-5.1); Total Bilirubin 0.3 mg/dL (0.2-1.3); Total Protein 6.7 g/dL (6.3-8.2)
[2019-05-24 21:25] VITALS: BP 153/76; PULSE 91; RESP 18; TEMP 97.8
[2019-05-24] MEDS ORDERED: ACETAMINOPHEN TAB 325 MG TAB PO STA (22:02)
== END 2019-05-24 22:15 | disposition home or self-care (01) ==
LOC: EC 19:01
DX: I12.0 Hypertensive chronic kidney disease with stage 5 chronic kidney disease or end stage renal disease (principal); E11.22 Type 2 diabetes mellitus with diabetic chronic kidney disease; N18.6 End stage renal disease; J44.9 Chronic obstructive pulmonary disease, unspecified; E11.40 Type 2 diabetes mellitus with diabetic neuropathy, unspecified; Z79.51 Long term (current) use of inhaled steroids; Z79.899 Other long term (current) drug therapy; Z88.0 Allergy status to penicillin; Z87.891 Personal history of nicotine dependence; Z99.2 Dependence on renal dialysis
CPT/HCPCS: 36415; 71046; 80053; 83735; 84100; 85025; 87502; 93005; 99285

== ENCOUNTER 2020-09-16 22:17 | Inpatient (IN) | payer MEDICARE, OTHER ==
[2020-09-16] MEDS ORDERED: AZITHROMYCIN 500 MG in SODIUM CHLORIDE 0.9% 250 ML IVPB STA (22:38)
[2020-09-16] MEDS ORDERED: PNEUMONIA PROTOCOL UTILIZED 1 EACH MISC PO PRN (22:38)
[2020-09-16] MEDS ORDERED: CEFEPIME 2 GM in SODIUM CHLORIDE 0.9% 100 ML IVPB STA (22:40)
--- NOTE | 2020-09-16 22:41 | ED ---
Recheck HPI - General Source: patient, EMS, old records reviewed Mode of arrival: EMS Limitations: no limitations <Ramesh Fernandez - Last Filed: 09/16/20 22:41> - General Source: RN notes reviewed <Michael Main - Last Filed: 09/16/20 22:52> - General Chief Complaint: Shortness of Breath Stated Complaint: Pneumonia Time Seen by Provider: 09/16/20 22:38 - History of Present Illness Initial Comments: 65-year-old female transferred from outside hospital for evaluation of dyspnea, COPD exacerbation and pneumonia. Patient is oxygen dependent COPD with recent admission. Additionally she has end-stage renal disease on hemodialysis Saturday. She receives hemodialysis last on Saturday. She was due for hemodialysis today but did not receive this secondary to being at an outside hospital for evaluation. Patient had laboratory studies, x-ray. Ultimately was transferred for further evaluation and treatment. She had been on BiPAP during both initial EMS transfer and throughout her stay at [facility]. (Michael Main) - Related Data Home Medications Medication Instructions Recorded Confirmed Phenytoin Sodium Extended 100 mg PO Q8H 11/29/15 09/06/20 [Dilantin] Folic Acid 1 mg PO DAILY 07/22/17 09/06/20 Primidone [Mysoline] 100 mg PO HS 07/20/18 09/06/20 Calcium Acetate 667 mg PO TID-W/MEALS 09/06/20 09/06/20 Calcium Acetate [PhosLo] 667 mg PO HS 09/06/20 09/06/20 Fluticasone/Vilanterol [Breo 1 puff INHALATION RT-DAILY 09/06/20 09/06/20 Ellipta 100-25 Mcg Inhaler] Folic Acid-Vit B Complex-Vit C 1 cap PO DAILY 09/06/20 09/06/20 [Nephrocaps] Lidocaine-Prilocaine Cream [Emla 1 applic TOPICAL MOWEFR 09/06/20 09/06/20 Cream 2.5%/2.5%] Ondansetron [Zofran] 4 mg PO Q6H PRN 09/06/20 09/06/20 Pantoprazole [Protonix] 40 mg PO DAILY 09/06/20 09/06/20 Simvastatin [Zocor] 10 mg PO HS 09/06/20 09/06/20 traZODone HCL 150 mg PO HS 09/06/20 09/06/20 Previous Rx's Medication Instructions Recorded Montelukast [Singulair] 10 mg PO HS #30 tab 12/26/17 Acetaminophen Tab [Tylenol] 650 mg PO Q6HR PRN tab 09/12/20 Albuterol Inhaler [Ventolin Hfa 2 puff INHALATION RT-QID puff 09/12/20 Inhaler] Aspirin 81 mg PO DAILY chew 09/12/20 Cefuroxime Axetil [Ceftin] 500 mg PO DAILY 5 Days #5 tab 09/12/20 Darbepoetin Scott [Aranesp] 40 mcg SQ Q7D syringe 09/12/20 Furosemide [Lasix] 80 mg PO Q12HR #1 tablet 09/12/20 Metoprolol Tartrate [Lopressor] 25 mg PO BID tab 09/12/20 hydrALAZINE HCL [Apresoline] 25 mg PO BID tab 09/12/20 traMADol HCl [Ultram] 50 mg PO QID PRN #12 tab 09/12/20 Allergies Allergy/AdvReac Type Severity Reaction Status Date / Time Penicillins Allergy Mild Swelling Verified 09/06/20 23:01 Review of Systems ROS Other: All systems not noted in ROS Statement are negative. <Ramesh Fernandez - Last Filed: 09/16/20 22:41> ROS Other: All systems not noted in ROS Statement are negative. <Michael Main - Last Filed: 09/16/20 22:52> ROS Statement: Those systems with pertinent positive or pertinent negative responses have been documented in the HPI. Past Medical History Past Medical History: COPD, Diabetes Mellitus, GERD/Reflux, Hyperlipidemia, Hypertension, Osteoarthritis (OA), Pneumonia, Respiratory Disorder, Seizure Disorder, Vascular Disorder Additional Past Medical History / Comment(s): hepatic encephalopathy/chronic liver disease probably d/t fatty liver advancing to chronic liver disease with possible cirrhosis/acute on chronic renal failure/acute on chronic COPD, AMS d/t elevated ammonia levels/metabolic acidosis/ electrolyte disturbances. Other hx: High ammonia levels, chronic liver disease, kidney stones, CKD stage IV, chronic respiratory failure with home O2 at 4L/NC, NIDDM type II, neuropathy bilateral feet, IBS, arthritis in multiple joints, chronic back pain, current problems with weakness, generalized edema. History of Any Multi-Drug Resistant Organisms: None Reported Past Surgical History: Ear Surgery, Hysterectomy, Orthopedic Surgery Additional Past Surgical History / Comment(s): Multiple surgeries/ESWL for kidney stones, bilateral caratid endartectomies, L ankle surgery with metal esteban/pin, R ear surgery for deteriorating eardrum, sinus surgery, colonoscopy. Past Anesthesia/Blood Transfusion Reactions: No Reported Reaction Past Psychological History: Anxiety, Depression Smoking Status: Former smoker Past Alcohol Use History: None Reported Past Drug Use History: Marijuana - Past Family History Mother Family Medical History: Diabetes Mellitus, Hypertension Father Family Medical History: Hypertension <Ramesh Fernandez - Last Filed: 09/16/20 22:41> General Exam Limitations: no limitations <Ramesh Fernandez - Last Filed: 09/16/20 22:41> General appearance: alert, in no apparent distress Head exam: Present: atraumatic, normocephalic Eye exam: Present: normal appearance, PERRL Respiratory exam: Present: rales, rhonchi, decreased breath sounds Cardiovascular Exam: Present: regular rate, normal rhythm GI/Abdominal exam: Present: soft. Absent: distended, tenderness, guarding, rebound Extremities exam: Present: normal inspection, normal capillary refill Neurological exam: Present: alert. Absent: motor sensory deficit Skin exam: Present: warm, dry, intact. Absent: cyanosis, diaphoretic <Michael Main - Last Filed: 09/16/20 22:52> Course Vital Signs 09/16/20 22:19 Temperature 98.8 F Pulse Rate 79 Respiratory 18 Rate Blood Pressure 134/77 O2 Sat by Pulse 100 Oximetry Medical Decision Making <Michael Main - Last Filed: 09/16/20 22:52> - Medical Decision Making 65-year-old female transferred from outside hospital. Laboratory studies reviewed, patient found out white blood cell count of 8, hemoglobin 7.6. She had a potassium 5.3. Other labs consistent with end-stage renal disease. Chest x-ray showing an infiltrate as well as some pulmonary vascular congestion. Patient continued on BiPAP. Laboratory studies will be repeated. She will be admitted to Dr. Mari who is aware of the patient with both pulmonology and nephrology on consult. (Michael Main) Disposition <Ramesh Fernandez - Last Filed: 09/16/20 22:41> Is patient prescribed a controlled substance at d/c from ED?: No Decision to Admit Reason: Admit from EC Decision Date: 09/16/20 Decision Time: 22:52 <Michael Main - Last Filed: 09/16/20 22:52> Clinical Impression: COPD (chronic obstructive pulmonary disease), Hypoxemia requiring supplemental oxygen, ESRD (end stage renal disease), Pneumonia Disposition: ADMITTED IP TO THIS HOSP Condition: Stable Referrals: Adal Mari Jr, DO [Primary Care Provider] - 1-2 days
[2020-09-16] MEDS ORDERED: SODIUM CHLORIDE 0.9% 1,000 ML IV SCH (22:45)
[2020-09-16] MEDS ORDERED: ALBUTEROL NEBULIZED 2.5 MG/3 ML INHALATION PRN (22:53)
[2020-09-16 23:35] LABS: Anisocytosis Slight; Basophils % (A) 0 %; Eosinophils # (A) 0.1 k/uL (0-0.7); Eosinophils % (A) 1 %; HCT 22.5 % (34.0-46.0); HGB 7.7 gm/dL (11.4-16.0); Lymphocytes # (A) 0.6 k/uL (1.0-4.8); Lymphocytes % (A) 9 %; MCH 33.2 pg (25.0-35.0); MCHC 34.3 g/dL (31.0-37.0); MCV 96.8 fL (80.0-100.0); Macrocytosis Slight; Mean Platelet Volume 7.3; Monocytes # (A) 0.2 k/uL (0-1.0); Monocytes % (A) 4 %; Neutrophils # (A) 5.2 k/uL (1.3-7.7); Neutrophils % (A) 85 %; Platelet Count 240 k/uL (150-450); Poikilocytosis Slight; RBC 2.32 m/uL (3.80-5.40); RDW 16.5 % (11.5-15.5); WBC 6.2 k/uL (3.8-10.6)
[2020-09-16 23:40] LABS: Calcium 7.8 mg/dL (8.4-10.2); Potassium 5.6 mmol/L (3.5-5.1)
[2020-09-17] MEDS: methylPREDNISolone SOD SUCCI 125 MG/2 ML VIAL IV SCH ×4 (00:10→22:43)
[2020-09-17] MEDS ORDERED: DIAZEPAM 5 MG/ML 2 ML INJ IVP STA (03:45)
[2020-09-17 06:48] LABS: Glucose,Whole Blood 102 mg/dL (75-99)
--- NOTE | 2020-09-17 07:18 | XR ---
EXAMINATION TYPE: XR chest 1V DATE OF EXAM: 09/17/2020 COMPARISON: Chest x-ray 09/10/2020 HISTORY: Pneumonia TECHNIQUE: Single frontal view of the chest is obtained. FINDINGS: Right-sided jugular central venous catheter shows a similar appearance. Patient is rotated . Cardiac mediastinal silhouette is stable. There is no evident pneumothorax or pleural effusion. Pat jesus densities within the lungs are again noted. Old left-sided rib fractures noted posteriorly on the left. IMPRESSION: There may be a mild component of volume overload, interstitial edema, underlying interst itial lung disease, correlate for pneumonia
[2020-09-17] MEDS ORDERED: IPRATROPIUM-ALBUTEROL 3 ML NEB INHALATION SCH (08:00)
[2020-09-17] MEDS ORDERED: ALBUTEROL HFA INHALER INHALATION PRN (08:23)
[2020-09-17 08:55] LABS: Anisocytosis Slight; HCT 22.7 % (34.0-46.0); HGB 7.8 gm/dL (11.4-16.0); Hypochromasia Slight; MCH 33.6 pg (25.0-35.0); MCHC 34.2 g/dL (31.0-37.0); Macrocytosis Slight; Mean Platelet Volume 7.3; Platelet Count 264 k/uL (150-450); RBC 2.31 m/uL (3.80-5.40); RDW 16.5 % (11.5-15.5); WBC 5.2 k/uL (3.8-10.6)
[2020-09-17 09:00] LABS: Calcium 7.4 mg/dL (8.4-10.2); Potassium 5.8 mmol/L (3.5-5.1)
--- NOTE | 2020-09-17 10:40 | P.NPCON ---
History of Present Illness - Reason for Consult Consult date: 09/17/20 end stage renal disease - Chief Complaint Weakness and shortness of breath - History of Present Illness This is a 65-year-old female known to us with ESRD on dialysis Saturday. He came in because of shortness of breath. She missed her dialysis yesterday Saturday. She was recently admitted on 09/06/2020 and discharged on 09/12/2020. Her discharge diagnoses was bilateral pneumonia sepsis requiring intubation encephalopathy possibly related to Dilaudid and seizures. She is also known with renal calculi nonobstructive, COPD, congestive heart failure with cardiomyopathy ejection fraction of 30-35% Currently she is fairly weak and tired on BiPAP at 50% FiO2. Past Medical History Past Medical History: COPD, Diabetes Mellitus, GERD/Reflux, Hyperlipidemia, Hypertension, Osteoarthritis (OA), Pneumonia, Respiratory Disorder, Seizure Di sorder, Vascular Disorder Additional Past Medical History / Comment(s): hepatic encephalopathy/chronic liver disease probably d/t fatty liver advancing to chronic liver disease with possible cirrhosis/acute on chronic renal failure/acute on chronic COPD, AMS d/t elevated ammonia levels/metabolic acidosis/ electrolyte disturbances. Other hx: High ammonia levels, chronic liver disease, kidney stones, CKD stage IV, chronic respiratory failure with home O2 at 4L/NC, NIDDM type II, neuropathy bilateral feet, IBS, arthritis in multiple joints, chronic back pain, current p roblems with weakness, generalized edema. History of Any Multi-Drug Resistant Organisms: None Reported Past Surgical History: Ear Surgery, Hysterectomy, Orthopedic Surgery Additional Past Surgical History / Comment(s): Multiple surgeries/ESWL for kidney stones, bilateral caratid endartectomies, L ankle surgery with metal ro d/pin, R ear surgery for deteriorating eardrum, sinus surgery, colonoscopy. Past Anesthesia/Blood Transfusion Reactions: No Reported Reaction Past Psychological History: Anxiety, Depression Additional Psychological History / Comment(s): Pt resides at [facility]. She states she ambulates with a walker. She has had generalized increased weakness. She has home oxygen at 4L/NC ATC and a nebulizer. Smoking Status: Former smoker Past Alcohol Use History: None Reported Additional Past Alcohol Use History / Comment(s): Pt started smoking in 1973 and quit in 2015. She was a 2 ppd smoker. Past Drug Use History: Marijuana Additional Drug Use History / Comment(s): Pt has a medical marijuana card - Past Family History Mother Family Medical History: Diabetes Mellitus, Hypertension Father Family Medical History: Hypertension Medications and Allergies Home Medications Medication Instructions Recorded Confirmed Type Phenytoin Sodium Extended 100 mg PO Q8H 11/29/15 09/16/20 History [Dilantin] Folic Acid 1 mg PO DAILY 07/22/17 09/16/20 History Montelukast [Singulair] 10 mg PO HS #30 tab 12/26/17 09/16/20 Rx Primidone [Mysoline] 100 mg PO HS 07/20/18 09/16/20 History Calcium Acetate 2,001 mg PO TID-W/MEALS 09/06/20 09/16/20 History Calcium Acetate [PhosLo] 667 mg PO HS 09/06/20 09/16/20 History Fluticasone/Vilanterol [Breo 1 puff INHALATION RT-DAILY 09/06/20 09/16/20 History Ellipta 100-25 Mcg Inhaler] Folic Acid-Vit B Complex-Vit C 1 cap PO DAILY 09/06/20 09/16/20 History [Nephrocaps] Lidocaine-Prilocaine Cream [Emla 1 applic TOPICAL MOWEFR 09/06/20 09/16/20 History Cream 2.5%/2.5%] Ondansetron [Zofran] 4 mg PO Q6H PRN 09/06/20 09/16/20 History Simvastatin [Zocor] 10 mg PO HS 09/06/20 09/16/20 History traZODone HCL 150 mg PO HS 09/06/20 09/16/20 History Acetaminophen Tab [Tylenol] 650 mg PO Q6HR PRN tab 09/12/20 09/16/20 Rx Aspirin 81 mg PO DAILY chew 09/12/20 09/16/20 Rx Cefuroxime Axetil [Ceftin] 500 mg PO DAILY 5 Days #5 tab 09/12/20 09/16/20 Rx Furosemide [Lasix] 80 mg PO Q12HR #1 tablet 09/12/20 09/16/20 Rx Metoprolol Tartrate [Lopressor] 25 mg PO BID tab 09/12/20 09/16/20 Rx hydrALAZINE HCL [Apresoline] 25 mg PO BID tab 09/12/20 09/16/20 Rx ALPRAZolam [Xanax] 1 mg PO BID PRN 09/16/20 09/16/20 History Albuterol Inhaler [Ventolin Hfa 2 puff INHALATION RT-QID PRN 09/16/20 09/16/20 History Inhaler] Diff-Stat Probiotic 2 cap PO BID 09/16/20 09/16/20 History Omeprazole 20 mg PO DAILY 09/16/20 09/16/20 History traMADol HCl [Ultram] 50 mg PO Q6H PRN 09/16/20 09/16/20 History Allergies Allergy/AdvReac Type Severity Reaction Status Date / Time Penicillins Allergy Mild Swelling Verified 09/16/20 23:02 Physical Exam Vitals: Vital Signs Temp Pulse Pulse Resp BP BP Pulse Ox 09/17/20 09:31 97.3 F L 76 17 132/62 98 09/17/20 06:28 97.6 F 78 26 H 117/70 100 09/17/20 05:00 76 12 120/50 100 09/17/20 01:24 84 25 H 119/89 100 09/17/20 01:07 18 09/16/20 22:19 98.8 F 79 18 134/77 100 Intake and Output 09/16/20 09/17/20 09/17/20 22:59 06:59 14:59 Intake Total 0 Balance 0 Intake: Oral 0 Other: Voiding Method Incontinent External Catheter Weight 114.759 kg 114.759 kg Examination she is morbidly obese, on BiPAP on 50% FiO2 HEENT exam difficult exam but no JVP neck is supple no facial asymmetry Lungs are significant for diminished breath sounds bilaterally. No crackles were heard Heart sounds are distant. Abdomen is obese protuberant and nontender. Extremity exam reveals trace edema Neurologically awake alert oriented but profoundly weak Results - Lab Results Most recent lab results Calcium 7.4 mg/dL (8.4-10.2) L 09/17/20 08:06 09/17/20 08:06 09/17/20 08:06 Assessment and Plan Assessment: Impression 1. ESRD on dialysis Saturday, missed her dialysis yesterday. Admitted with generalized weakness shortness of breath and isn't congestive heart failure 2. Diabetes mellitus. 3. History of fatty liver and cirrhosis 4. History of recent admission discharge 09/12/2020 and will had been intubated the time and had pneumonia and sepsis 5. History of coronary artery disease, seizure disorder, obesity, COPD. 6. Anemia hemoglobin 7.8. ESRD rule out iron deficiency 7. Morbid obesity 8. Hyponatremia secondary to ESRD and excessive free water. 9. Hypokalemia scan to ESRD Recommendation 1. Will be dialyzed today 4 hours we'll take off 4 L and she if she will tolerate it. 2. Iron saturation 3. Double 0.16 g every week 4. Expect sodium didn't improve. Patient may be drinking excessive amount of water Thank you for this consultation and we'll continue to follow closely
[2020-09-17] MEDS: ALBUTEROL HFA INHALER INHALATION SCH ×3 (11:01→21:04)
[2020-09-17 11:46] LABS: Glucose,Whole Blood 93 mg/dL (75-99)
[2020-09-17] MEDS ORDERED: DARBEPOETIN ALFA 60 MCG/0.3 ML SYRINGE SQ SCH (12:00)
[2020-09-17] MEDS: ACETAMINOPHEN TAB 325 MG TAB PO PRN ×2 (12:03→19:45)
--- NOTE | 2020-09-17 13:31 | P.HPIM ---
History of Present Illness H&P Date: 09/17/20 Chief Complaint: Dyspnea , shortness of breath Brie is a 65-year-old female well-known to my practice who is been living at [facility] ,patient was recently discharged from the hospital secondary to pneumonia with an acute exacerbation of COPD patient had been intubated on the vent for approximately 3 days. Additionally she has end-stage renal disease hemodialysis dependent being dialyzed Saturday and Saturday she missed Saturday's dialysis and became overloaded with fluid and was becoming extremely dyspneic again When asked why she missed dialysis she couldn't give me a good reason she does smiled and laughed Review of Systems Constitutional: Reports as per HPI, Reports fatigue, Reports lethargy, Reports weakness Ears, nose, mouth and throat: Reports as per HPI Cardiovascular: Reports as per HPI, Reports dyspnea on exertion, Reports high blood pressure, Reports shortness of breath Respiratory: Reports congestion, Reports dyspnea Gastrointestinal: Reports as per HPI Genitourinary: Reports as per HPI (endStage renal disease hemodialysis dependent) Menstruation: Reports postmenopausal Musculoskeletal: Reports as per HPI Integumentary: Reports as per HPI Neurological: Reports as per HPI Psychiatric: Reports as per HPI Endocrine: Reports as per HPI Hematologic/Lymphatic: Reports as per HPI Allergic/Immunologic: Reports as per HPI Past Medical History Past Medical History: COPD, Diabetes Mellitus, GERD/Reflux, Hyperlipidemia, Hypertension, Osteoarthritis (OA), Pneumonia, Respiratory Disorder, Seizure Disorder, Vascular Disorder Additional Past Medical History / Comment(s): hepatic encephalopathy/chronic liver disease probably d/t fatty liver advancing to chronic liver disease with possible cirrhosis/acute on chronic renal failure/acute on chronic COPD, AMS d/t elevated ammonia levels/metabolic acidosis/ electrolyte disturbances. Other hx: High ammonia levels, chronic liver disease, kidney stones, CKD stage IV, chronic respiratory failure with home O2 at 4L/NC, NIDDM type II, neuropathy bilateral feet, IBS, arthritis in multiple joints, chronic back pain, current problems with weakness, generalized edema. History of Any Multi-Drug Resistant Organisms: None Reported Past Surgical History: Ear Surgery, Hysterectomy, Orthopedic Surgery Additional Past Surgical History / Comment(s): Multiple surgeries/ESWL for kidney stones, bilateral caratid endartectomies, L ankle surgery with metal esteban/pin, R ear surgery for deteriorating eardrum, sinus surgery, colonoscopy. Past Anesthesia/Blood Transfusion Reactions: No Reported Reaction Past Psychological History: Anxiety, Depression Additional Psychological History / Comment(s): Pt resides at [facility]. She states she ambulates with a walker. She has had generalized increased weakness. She has home oxygen at 4L/NC ATC and a nebulizer. Smoking Status: Former smoker Past Alcohol Use History: None Reported Additional Past Alcohol Use History / Comment(s): Pt started smoking in 1973 and quit in 2015. She was a 2 ppd smoker. Past Drug Use History: Marijuana Additional Drug Use History / Comment(s): Pt has a medical marijuana card - Past Family History Mother Family Medical History: Diabetes Mellitus, Hypertension Father Family Medical History: Hypertension Medications and Allergies Home Medications Medication Instructions Recorded Confirmed Type Phenytoin Sodium Extended 100 mg PO Q8H 11/29/15 09/16/20 History [Dilantin] Folic Acid 1 mg PO DAILY 07/22/17 09/16/20 History Montelukast [Singulair] 10 mg PO HS #30 tab 12/26/17 09/16/20 Rx Primidone [Mysoline] 100 mg PO HS 07/20/18 09/16/20 History Calcium Acetate 2,001 mg PO TID-W/MEALS 09/06/20 09/16/20 History Calcium Acetate [PhosLo] 667 mg PO HS 09/06/20 09/16/20 History Fluticasone/Vilanterol [Breo 1 puff INHALATION RT-DAILY 09/06/20 09/16/20 History Ellipta 100-25 Mcg Inhaler] Folic Acid-Vit B Complex-Vit C 1 cap PO DAILY 09/06/20 09/16/20 History [Nephrocaps] Lidocaine-Prilocaine Cream [Emla 1 applic TOPICAL MOWEFR 09/06/20 09/16/20 History Cream 2.5%/2.5%] Ondansetron [Zofran] 4 mg PO Q6H PRN 09/06/20 09/16/20 History Simvastatin [Zocor] 10 mg PO HS 09/06/20 09/16/20 History traZODone HCL 150 mg PO HS 09/06/20 09/16/20 History Acetaminophen Tab [Tylenol] 650 mg PO Q6HR PRN tab 09/12/20 09/16/20 Rx Aspirin 81 mg PO DAILY chew 09/12/20 09/16/20 Rx Cefuroxime Axetil [Ceftin] 500 mg PO DAILY 5 Days #5 tab 09/12/20 09/16/20 Rx Furosemide [Lasix] 80 mg PO Q12HR #1 tablet 09/12/20 09/16/20 Rx Metoprolol Tartrate [Lopressor] 25 mg PO BID tab 09/12/20 09/16/20 Rx hydrALAZINE HCL [Apresoline] 25 mg PO BID tab 09/12/20 09/16/20 Rx ALPRAZolam [Xanax] 1 mg PO BID PRN 09/16/20 09/16/20 History Albuterol Inhaler [Ventolin Hfa 2 puff INHALATION RT-QID PRN 09/16/20 09/16/20 History Inhaler] Diff-Stat Probiotic 2 cap PO BID 09/16/20 09/16/20 History Omeprazole 20 mg PO DAILY 09/16/20 09/16/20 History traMADol HCl [Ultram] 50 mg PO Q6H PRN 09/16/20 09/16/20 History Allergies Allergy/AdvReac Type Severity Reaction Status Date / Time Penicillins Allergy Mild Swelling Verified 09/16/20 23:02 Physical Exam Osteopathic Statement: *. No significant issues noted on an osteopathic structural exam other than those noted in the History and Physical/Consult. Vitals: Vital Signs Temp Pulse Pulse Resp BP BP Pulse Ox 09/17/20 12:00 87 17 109/58 100 09/17/20 09:31 97.3 F L 76 17 132/62 98 09/17/20 06:28 97.6 F 78 26 H 117/70 100 09/17/20 05:00 76 12 120/50 100 09/17/20 01:24 84 25 H 119/89 100 09/17/20 01:07 18 09/16/20 22:19 98.8 F 79 18 134/77 100 Intake and Output 09/16/20 09/17/20 09/17/20 22:59 06:59 14:59 Intake Total 0 Balance 0 Intake: Oral 0 Other: Voiding Method Incontinent Incontinent External Catheter External Catheter Weight 114.759 kg 114.759 kg General: [Patient awake, alert and oriented times 3. Patient in no acute distress.] Morbidly obese, pickwickian's type body habitus HEENT: [PERRL. EOMI. No pharyngeal erythema or exudate.] Neck: [No adenopathy.] Cardiac: [Heart regular in rate and rhythm. No S3. No S4. No clicks, rubs. No murmur.] Lungs: [Clear to auscultation bilaterally.] Abdomen: [No mass. No organomegaly. Bowel sounds presnt and normoactive in all 4 quadrants.] Extremes: [No edema no cyanosis no claudication normal pulses] dialysis access on the right : Normal female genitalia Musculoskeletal: [No joint erythema, edema or tenderness.] Skin: [No rash.] Neurologic: [No lateralizing deficits. CN II - XII grossly intact.] Lymphatic: [No adenopathy.] Results CBC & Chem 7: 09/17/20 08:06 09/17/20 08:06 Labs: Abnormal Lab Results - Last 24 Hours (Table) 09/16/20 09/16/20 09/17/20 Range/Units 23:15 23:15 06:35 RBC 2.32 L (3.80-5.40) m/uL Hgb 7.7 L (11.4-16.0) gm/dL Hct 22.5 L (34.0-46.0) % RDW 16.5 H (11.5-15.5) % Lymphocytes # 0.6 L (1.0-4.8) k/uL Sodium 122 L (137-145) mmol/L Potassium 5.6 H (3.5-5.1) mmol/L Chloride 94 L (98-107) mmol/L Carbon Dioxide 20 L (22-30) mmol/L BUN 76 H (7-17) mg/dL Creatinine 4.57 H (0.52-1.04) mg/dL Glucose 100 H (74-99) mg/dL POC Glucose (mg/dL) 102 H (75-99) mg/dL Calcium 7.8 L (8.4-10.2) mg/dL 09/17/20 09/17/20 Range/Units 08:06 08:06 RBC 2.31 L (3.80-5.40) m/uL Hgb 7.8 L (11.4-16.0) gm/dL Hct 22.7 L (34.0-46.0) % RDW 16.5 H (11.5-15.5) % Lymphocytes # (1.0-4.8) k/uL Sodium 127 L (137-145) mmol/L Potassium 5.8 H (3.5-5.1) mmol/L Chloride 97 L (98-107) mmol/L Carbon Dioxide 19 L (22-30) mmol/L BUN 82 H (7-17) mg/dL Creatinine 4.48 H (0.52-1.04) mg/dL Glucose (74-99) mg/dL POC Glucose (mg/dL) (75-99) mg/dL Calcium 7.4 L (8.4-10.2) mg/dL Thrombosis Risk Factor Assmnt - DVT/VTE Prophylaxis DVT/VTE Prophylaxis: Pharmacologic Prophylaxis ordered - Choose All That Apply Any of the Below Risk Factors Present?: Yes Each Factor Represents 1 point: Medical pt on bed rest, Obesity (BMI >25), Serious lung disease incl. pneumonia (< 1month) Other Risk Factors: Yes Each Risk Factor Represents 2 Points: Age 61-74 years Other congenital or acquired thrombophilia - If yes, enter type in comment: No Thrombosis Risk Factor Assessment Total Risk Factor Score: 5 Thrombosis Risk Factor Assessment Level: High Risk Assessment and Plan (1) BiPAP (biphasic positive airway pressure) dependence Current Visit: Yes Status: Acute Code(s): Z99.89 - DEPENDENCE ON OTHER ENABLING MACHINES AND DEVICES SNOMED Code(s): 449924441 (2) Obstructive sleep apnea treated with BiPAP Current Visit: Yes Status: Acute Code(s): G47.33 - OBSTRUCTIVE SLEEP APNEA (ADULT) (PEDIATRIC) SNOMED Code(s): 64206096 (3) COPD (chronic obstructive pulmonary disease) Current Visit: Yes Status: Acute Code(s): J44.9 - CHRONIC OBSTRUCTIVE PULMONARY DISEASE, UNSPECIFIED SNOMED Code(s): 38170021 (4) ESRD (end stage renal disease) Current Visit: Yes Status: Acute Code(s): N18.6 - END STAGE RENAL DISEASE SNOMED Code(s): 87931490 (5) Hypoxemia requiring supplemental oxygen Current Visit: Yes Status: Acute Code(s): R09.02 - HYPOXEMIA; Z99.81 - DEPENDENCE ON SUPPLEMENTAL OXYGEN SNOMED Code(s): 268093299 (6) Pneumonia Current Visit: Yes Status: Acute Code(s): J18.9 - PNEUMONIA, UNSPECIFIED ORGANISM SNOMED Code(s): 804171168 (7) Readmission after hospitalization within last 30 days Current Visit: No Status: Acute Code(s): HFM0131 - SNOMED Code(s): 189382792 (8) Renal tubulopathy, encephalopathy, and liver failure syndrome Current Visit: No Status: Acute Code(s): Q87.89 - OTH CONGENITAL MALFORMATION SYNDROMES, NEC SNOMED Code(s): 329451408 (9) Systolic congestive heart failure Current Visit: No Status: Acute Code(s): I50.20 - UNSPECIFIED SYSTOLIC (CONGESTIVE) HEART FAILURE SNOMED Code(s): 06942947 Plan: COPD acute exacerbation recent post hospitalization for pneumonia/acute ex acerbation of COPD with respiratory failure and intubation End-stage renal disease dialysis dependent Non-compliance with outpatient dialysis Patient is steroid dependent oxygen dependent by patient dependent COPD Tobacco use syndrome patient quit when she entered [facility] Patient denied or is to go to dialysis Saturday became short of breath shortly after that was brought to the hospital from [facility] emergency room Anemia of chronic disease Plan Admit this patient to the hospital Transfused 2 units packed red cells Patient to be dialyzed here at the hospital Continue BiPAP, continue oxygen support continue corticosteroids as needed Consultation with nephrology, consultation with pulmonary medicine Time with Patient: Greater than 30
[2020-09-17] MEDS: CALCIUM ACETATE 667 MG TAB PO SCH ×3 (15:52→19:46)
[2020-09-17] MEDS: PHENYTOIN SODIUM EXTENDED 100 MG CAP PO SCH ×2 (16:02→19:44)
--- NOTE | 2020-09-17 16:33 | P.CNPUL ---
History of Present Illness Consult date: 09/17/20 Requesting physician: Adal Mari Jr Reason for consult: dyspnea Chief complaint: Shortness of breath History of present illness: This is a 65-year-old female with multiple medical problems including obesity, end-stage renal disease, on hemodialysis, COPD, hypertension, seizure disorder, peripheral vessel occlusive disease, chronic liver disease with possible cirrhosis of the liver. Chronic obstructive pulmonary disease chronic hypoxic respiratory failure, on home O2 at 4 L nasal cannula. History of irritable bowel syndrome, history of type 2 diabetes. Patient was seen in the ER with mostly symptoms of shortness of breath, apparently she missed her dialysis, and she is also known to have history of LV dysfunction with cardiomyopathy and ejection fraction of 30%, chest x-ray upon presentation showed evidence of pulmonary edema. Patient was admitted, as I was evaluating the patient, patient was being dialyzed by nephrology. She was already on BiPAP, and she was feeling better during the dialysis. The patient is not a great historian, seems to be a bit confused. Review of Systems Constitutional: Generalized weakness and fatigue. Ears, nose, mouth and throat: Negative Cardiovascular: Chronic dyspnea with any activity. Respiratory: As noted in HPI. Gastrointestinal: Negative Genitourinary: Negative Musculoskeletal: Negative Integumentary: Negative Neurological: Negative Psychiatric: Negative Endocrine: Negative Hematologic/Lymphatic: Negative Allergic/Immunologic: Negative Past Medical History Past Medical History: COPD, Diabetes Mellitus, GERD/Reflux, Hyperlipidemia, Hypertension, Osteoarthritis (OA), Pneumonia, Respiratory Disorder, Seizure Disorder, Vascular Disorder Additional Past Medical History / Comment(s): hepatic encephalopathy/chronic liver disease probably d/t fatty liver advancing to chronic liver disease with possible cirrhosis/acute on chronic renal failure/acute on chronic COPD, AMS d/t elevated ammonia levels/metabolic acidosis/ electrolyte disturbances. Other hx: High ammonia levels, chronic liver disease, kidney stones, CKD stage IV, chronic respiratory failure with home O2 at 4L/NC, NIDDM type II, neuropathy bilateral feet, IBS, arthritis in multiple joints, chronic back pain, current problems with weakness, generalized edema. History of Any Multi-Drug Resistant Organisms: None Reported Past Surgical History: Ear Surgery, Hysterectomy, Orthopedic Surgery Additional Past Surgical History / Comment(s): Multiple surgeries/ESWL for kidney stones, bilateral caratid endartectomies, L ankle surgery with metal estebna/pin, R ear surgery for deteriorating eardrum, sinus surgery, colonoscopy. Past Anesthesia/Blood Transfusion Reactions: No Reported Reaction Past Psychological History: Anxiety, Depression Additional Psychological History / Comment(s): Pt resides at [facility]. She states she ambulates with a walker. She has had generalized increased weakness. She has home oxygen at 4L/NC ATC and a nebulizer. Smoking Status: Former smoker Past Alcohol Use History: None Reported Additional Past Alcohol Use History / Comment(s): Pt started smoking in 1973 and quit in 2015. She was a 2 ppd smoker. Past Drug Use History: Marijuana Additional Drug Use History / Comment(s): Pt has a medical marijuana card - Past Family History Mother Family Medical History: Diabetes Mellitus, Hypertension Father Family Medical History: Hypertension Medications and Allergies Home Medications Medication Instructions Recorded Confirmed Type Phenytoin Sodium Extended 100 mg PO Q8H 11/29/15 09/16/20 History [Dilantin] Folic Acid 1 mg PO DAILY 07/22/17 09/16/20 History Montelukast [Singulair] 10 mg PO HS #30 tab 12/26/17 09/16/20 Rx Primidone [Mysoline] 100 mg PO HS 07/20/18 09/16/20 History Calcium Acetate 2,001 mg PO TID-W/MEALS 09/06/20 09/16/20 History Calcium Acetate [PhosLo] 667 mg PO HS 09/06/20 09/16/20 History Fluticasone/Vilanterol [Breo 1 puff INHALATION RT-DAILY 09/06/20 09/16/20 History Ellipta 100-25 Mcg Inhaler] Folic Acid-Vit B Complex-Vit C 1 cap PO DAILY 09/06/20 09/16/20 History [Nephrocaps] Lidocaine-Prilocaine Cream [Emla 1 applic TOPICAL MOWEFR 09/06/20 09/16/20 His tory Cream 2.5%/2.5%] Ondansetron [Zofran] 4 mg PO Q6H PRN 09/06/20 09/16/20 History Simvastatin [Zocor] 10 mg PO HS 09/06/20 09/16/20 History traZODone HCL 150 mg PO HS 09/06/20 09/16/20 History Acetaminophen Tab [Tylenol] 650 mg PO Q6HR PRN tab 09/12/20 09/16/20 Rx Aspirin 81 mg PO DAILY chew 09/12/20 09/16/20 Rx Cefuroxime Axetil [Ceftin] 500 mg PO DAILY 5 Days #5 tab 09/12/20 09/16/20 Rx Furosemide [Lasix] 80 mg PO Q12HR #1 tablet 09/12/20 09/16/20 Rx Metoprolol Tartrate [Lopressor] 25 mg PO BID tab 09/12/20 09/16/20 Rx hydrALAZINE HCL [Apresoline] 25 mg PO BID tab 09/12/20 09/16/20 Rx ALPRAZolam [Xanax] 1 mg PO BID PRN 09/16/20 09/16/20 History Albuterol Inhaler [Ventolin Hfa 2 puff INHALATION RT-QID PRN 09/16/20 09/16/20 History Inhaler] Diff-Stat Probiotic 2 cap PO BID 09/16/20 09/16/20 History Omeprazole 20 mg PO DAILY 09/16/20 09/16/20 History traMADol HCl [Ultram] 50 mg PO Q6H PRN 09/16/20 09/16/20 History Allergies Allergy/AdvReac Type Severity Reaction Status Date / Time Penicillins Allergy Mild Swelling Verified 09/16/20 23:02 Physical Exam Vitals: Vital Signs Temp Pulse Pulse Resp BP BP Pulse Ox 09/17/20 16:00 98.0 F 90 18 128/57 100 09/17/20 12:00 87 17 109/58 100 09/17/20 09:31 97.3 F L 76 17 132/62 98 09/17/20 06:28 97.6 F 78 26 H 117/70 100 09/17/20 05:00 76 12 120/50 100 09/17/20 01:24 84 25 H 119/89 100 09/17/20 01:07 18 09/16/20 22:19 98.8 F 79 18 134/77 100 Intake and Output 09/17/20 09/17/20 09/17/20 06:59 14:59 22:59 Intake Total 0 Balance 0 Intake: Oral 0 Other: Voiding Method Incontinent Incontinent External Catheter External Catheter Weight 114.759 kg General: Revealed a 65-year-old female obese, in no distress, on BiPAP, receiving hemodialysis during my evaluation. HEENT: Short obese neck, no neck masses, no thyromegaly, dry mucous membranes. Cardiac: History and pressors, no S3 gallop.] Lungs: Reduced breath sounds at the bases crackles at the bases no rhonchi and no wheezes. Symmetrical chest expansion noted. Abdomen: Obese, soft, nontender, no megaly, no rebound. Extremes: [Trace of bipedal edema, no clubbing, no cyanosis. Musculoskeletal: No limitations in range of motion, no deformities. Skin: [No rash.] Neurologic: Patient is a bit confused, however she is responding to questions, at times not appropriate. ResponseS noted. Lymphatic: [No adenopathy.] Results - Laboratory Findings CBC and BMP: 09/17/20 08:06 09/17/20 08:06 Abnormal lab findings: Abnormal Labs 09/16/20 09/16/20 09/17/20 23:15 23:15 06:35 RBC 2.32 L Hgb 7.7 L Hct 22.5 L RDW 16.5 H Lymphocytes # 0.6 L Sodium 122 L Potassium 5.6 H Chloride 94 L Carbon Dioxide 20 L BUN 76 H Creatinine 4.57 H Glucose 100 H POC Glucose (mg/dL) 102 H Calcium 7.8 L 09/17/20 09/17/20 08:06 08:06 RBC 2.31 L Hgb 7.8 L Hct 22.7 L RDW 16.5 H Lymphocytes # Sodium 127 L Potassium 5.8 H Chloride 97 L Carbon Dioxide 19 L BUN 82 H Creatinine 4.48 H Glucose POC Glucose (mg/dL) Calcium 7.4 L - Diagnostic Findings Chest x-ray: image reviewed (Chest x-ray is suggestive of interstitial edema.) Assessment and Plan Assessment: Impression: Acute on chronic hypoxic for failure, multifactorial, but mostly related to acute on chronic systolic congestive heart failure and fluid overload from end- stage renal disease and noncompliance with dialysis. Obstructive sleep apnea syndrome. History of chronic hypoxic respiratory failure History of chronic obstructive pulmonary disease presently inactive. End-stage renal disease on hemodialysis. History of nonalcoholic fatty liver. Chronic systolic congestive heart failure. Chronic anemia secondary to chronic disease. Benign essential hypertension Type 2 diabetes. History of seizure disorder Resident of [facility] facility. Strongly doubt pneumonia. Recommendation: Continue dialysis Continue BiPAP and titrate accordingly transitioned to high flow nasal cannula. Continue bronchodilators. Advised not to miss any further courses of dialysis. Continue bronchodilators. Continue Omnicef orally as the patient had recent history of pneumonia. Discontinue Zithromax. We'll continue to follow Time with Patient: Greater than 30
[2020-09-17 16:46] LABS: Glucose,Whole Blood 93 mg/dL (75-99)
[2020-09-17 18:39] LABS: % Iron Saturation 32.72 (12.00-45.00)
[2020-09-17] MEDS: ATORVASTATIN 10 MG TAB PO SCH (19:44)
[2020-09-17] MEDS: hydrALAZINE HCL 25 MG TAB PO SCH (19:44)
[2020-09-17] MEDS: FUROSEMIDE 80 MG TAB PO SCH (19:44)
[2020-09-17] MEDS: traZODone HCL 50 MG TAB PO SCH (19:44)
[2020-09-17] MEDS: METOPROLOL TARTRATE 25 MG TAB PO SCH (19:45)
[2020-09-17] MEDS: PRIMIDONE 50 MG TAB PO SCH (19:45)
[2020-09-17] MEDS: MONTELUKAST 10 MG TAB PO SCH (19:46)
[2020-09-17] MEDS: [UNRECOGNIZED DRUG - OTHER] PO SCH (19:48)
[2020-09-17 20:50] LABS: Glucose,Whole Blood 156 mg/dL (75-99)
[2020-09-17] MEDS: SYMBICORT 80-4.5 MCG INHALER INHALATION SCH (21:05)
[2020-09-17] MEDS: ALPRAZolam 1 MG TAB PO PRN (22:02)
[2020-09-18] MEDS ORDERED: AZITHROMYCIN 500 MG in SODIUM CHLORIDE 0.9% 250 ML IVPB SCH (01:00)
[2020-09-18] MEDS: ACETAMINOPHEN TAB 325 MG TAB PO PRN ×4 (03:06→22:54)
[2020-09-18] MEDS: PHENYTOIN SODIUM EXTENDED 100 MG CAP PO SCH ×3 (03:06→20:28)
[2020-09-18] MEDS: CALCIUM ACETATE 667 MG TAB PO SCH ×4 (06:22→20:28)
[2020-09-18 06:34] LABS: Glucose,Whole Blood 140 mg/dL (75-99)
[2020-09-18] MEDS ORDERED: SYMBICORT 80-4.5 MCG INHALER INHALATION SCH (08:00)
[2020-09-18] MEDS: ALBUTEROL HFA INHALER INHALATION SCH ×4 (08:03→19:29)
[2020-09-18] MEDS: SYMBICORT 80-4.5 MCG INHALER INHALATION SCH ×2 (08:03→19:29)
[2020-09-18] MEDS: methylPREDNISolone SOD SUCCI 125 MG/2 ML VIAL IV SCH ×3 (08:07→22:56)
[2020-09-18] MEDS: METOPROLOL TARTRATE 25 MG TAB PO SCH ×2 (08:07→20:28)
[2020-09-18] MEDS: ASPIRIN 81 MG PO SCH (08:07)
[2020-09-18] MEDS: FUROSEMIDE 80 MG TAB PO SCH ×2 (08:07→20:28)
[2020-09-18] MEDS: FOLIC ACID 1 MG TAB PO SCH (08:07)
[2020-09-18] MEDS: FOLIC ACID-VIT B COMPLEX-VIT C 1 CAP PO SCH (08:08)
[2020-09-18] MEDS: hydrALAZINE HCL 25 MG TAB PO SCH (08:08)
[2020-09-18] MEDS: CEFDINIR 300 MG CAP PO SCH (08:08)
[2020-09-18] MEDS: PANTOPRAZOLE 40 MG TABLET PO SCH (08:09)
[2020-09-18] MEDS: [UNRECOGNIZED DRUG - OTHER] PO SCH ×2 (08:18→20:27)
--- NOTE | 2020-09-18 10:29 | P.PN ---
Subjective Progress Note Date: 09/18/20 This is a 65-year-old female known to us with ESRD on dialysis Saturday. She came in because of shortness of breath. She missed her dialysis Saturday. She was dialyzed yesterday Saturday 4 hours and 4 L taken off. She continues to feel unwell but nothing specific no chest pain no shortness of breath no cough no fever chills nausea vomiting diarrhea appetite is good. She is able to walk she says. Currently she is on room air compared to yesterday when she was on BiPAP. Her chest x-ray did show CHF She was recently admitted on 09/06/2020 and discharged on 09/12/2020. Her discharge diagnoses was bilateral pneumonia sepsis requiring intubation encephalopathy possibly related to Dilaudid and seizures. She is also known with renal calculi nonobstructive, COPD, congestive heart f ailure with cardiomyopathy ejection fraction of 30-35% Objective - Vital Signs Vital signs: Vital Signs Temp 98.4 F 09/18/20 07:28 Pulse 76 09/18/20 07:28 Resp 16 09/18/20 07:28 BP 118/58 09/18/20 08:04 Pulse Ox 97 09/18/20 07:28 Intake & Output 09/17/20 09/18/20 09/18/20 18:59 06:59 18:59 Intake Total 300 330 Output Total 4000 225 Balance -3700 -225 330 Weight 111.5 kg Intake: Oral 300 330 Output: Urine 225 Hemodialysis 4000 Other: Voiding Method Incontinent Incontinent External Catheter External Catheter # Bowel Movements 0 Examination she is morbidly obese, on BiPAP on 50% FiO2 HEENT exam difficult exam but no JVP neck is supple no facial asymmetry Lungs are significant for diminished breath sounds bilaterally. Few crackles heard on the right base Heart sounds are distant. Abdomen is obese protuberant and nontender. Extremity exam reveals trace edema Neurologically awake alert oriented but profoundly weak - Labs CBC & Chem 7: 09/17/20 08:06 09/17/20 08:06 Labs: Abnormal Lab Results - Last 24 Hours (Table) 09/17/20 09/17/20 09/18/20 Range/Units 08:06 20:33 06:08 POC Glucose (mg/dL) 156 H 140 H (75-99) mg/dL TIBC 217 L (228-460) ug/dL Microbiology - Last 24 Hours (Table) 09/17/20 00:02 Blood Culture - Preliminary Blood No Growth after 24 hours 09/16/20 22:54 Blood Culture - Preliminary Blood No Growth after 24 hours Assessment and Plan Assessment: Impression 1. ESRD on dialysis Saturday, Admitted with generalized weakness shortness of breath and congestive heart failure. She had missed her dialysis Saturday and was dialyzed yesterday Saturday and was dialyzed for 4 hours with 4 L taken off. Continues to feel weak and tired. Her hemoglobin 7.8 2. Diabetes mellitus. 3. History of fatty liver and cirrhosis 4. History of recent admission discharge 09/12/2020 and will had been intubated the time and had pneumonia and sepsis 5. History of coronary artery disease, seizure disorder, obesity, COPD. 6. Anemia hemoglobin 7.8. ESRD ruled out iron deficiency, iron saturation is 32% 7. Morbid obesity 8. Hyponatremia secondary to ESRD and excessive free water. 9. Hyperkalemia scan to ESRD Recommendation 1. She can be transfused because of her symptoms of weakness and tiredness that cannot be explained any other way. We can give her 1 unit of blood on dialysis tomorrow. 2. Check TSH Thank you for this consultation and we'll continue to follow closely
[2020-09-18 11:53] LABS: Glucose,Whole Blood 154 mg/dL (75-99)
--- NOTE | 2020-09-18 13:08 | P.PN ---
Subjective Progress Note Date: 09/18/20 Brie is a 65-year-old female well-known to my practice who is been living at [facility] ,patient was recently discharged from the hospital secondary to pneumonia with an acute exacerbation of COPD patient had been intubated on the vent for approximately 3 days. Additionally she has end-stage renal disease hemodialysis dependent being dialyzed Saturday and Saturday she missed Saturday's dialysis and became overloaded with fluid and was becoming extremely dyspneic again When asked why she missed dialysis she couldn't give me a good reason she does smiled and laughed. 09/18/2020: Patient was readmitted from [facility]. This dialysis patient apparently had been increased shortness of breath and Mr. Saturday dialysis became fluid overloaded. She was readmitted for this. She ended up having dialysis again yesterday. Nephrology it seen her. Pulmonology also seen her she required BiPAP. She is now off on standby in BiPAP and using a nasal cannula. On my visit today, there is stool in a bedside commode along with dark red blood, liquid, approximately 500-700 mL. Staff are unsure the cause of this. A rectal Hemoccult is pending. Pulse ox 97% on 4 L of O2 via nasal c annula. Blood pressure stable. Labs are pending for today. Last hemoglobin was 7.8 yesterday. Blood cultures are negative 24 hours. Currently Brie is quite confused, but pleasant. She denies any chest pains, pressures, or shortness breath this time. She denies any nausea or vomiting. Objective - Vital Signs Vital signs: Vital Signs Temp 98.4 F 09/18/20 07:28 Pulse 76 09/18/20 07:28 Resp 16 09/18/20 07:28 BP 120/67 09/18/20 11:21 Pulse Ox 97 09/18/20 11:24 Intake & Output 09/17/20 09/18/20 09/18/20 18:59 06:59 18:59 Intake Total 300 330 Output Total 4000 225 Balance -3700 -225 330 Weight 111.5 kg Intake: Oral 300 330 Output: Urine 225 Hemodialysis 4000 Other: Voiding Method Incontinent Incontinent Incontinent External Catheter External Catheter External Catheter # Voids 1 # Bowel Movements 0 - Exam General: The patient is awake and alert, in no distress, she is on nasal cannula oxygen at 4 L/m. Neck: The neck is supple, there is no thyromegaly, lymphadenopathy, tenderness or JVD. Cardiovascular: S1S2 is normal, There is a regular rate and rhythm. Trace/6 systolic murmur, no rub or gallop is appreciated. Respiratory: Lungs are slightly coarse to auscultation bilaterally, there is left and right bibasilar rhonchi at the bases respirations are non-labored, breath sounds are equal. Gastrointestinal: Soft, non-tender abdomen without masses or organomegaly noted. There is no rebound or guarding present. Bowel sounds are unremarkable. It is distended due to truncal obesity. Musculoskeletal: Normal ROM, no tenderness, There is trace pedal edema. There is no calf tenderness or swelling. No cords were appreciated. Neurological: CN II-XII intact, there are no obvious motor or sensory deficits. Coordination appears grossly intact. Speech is normal. Skin: Skin is warm and dry and no rashes or lesions are noted. - Labs CBC & Chem 7: 09/17/20 08:06 09/17/20 08:06 Labs: Abnormal Lab Results - Last 24 Hours (Table) 09/17/20 09/17/20 09/18/20 Range/Units 08:06 20:33 06:08 POC Glucose (mg/dL) 156 H 140 H (75-99) mg/dL TIBC 217 L (228-460) ug/dL 09/18/20 Range/Units 11:51 POC Glucose (mg/dL) 154 H (75-99) mg/dL TIBC (228-460) ug/dL Microbiology - Last 24 Hours (Table) 09/17/20 00:02 Blood Culture - Preliminary Blood No Growth after 24 hours 09/16/20 22:54 Blood Culture - Preliminary Blood No Growth after 24 hours Assessment and Plan (1) COPD (chronic obstructive pulmonary disease) Current Visit: Yes Status: Acute Code(s): J44.9 - CHRONIC OBSTRUCTIVE PULMONARY DISEASE, UNSPECIFIED SNOMED Code(s): 04740611 (2) Hypoxemia requiring supplemental oxygen Current Visit: Yes Status: Acute Code(s): R09.02 - HYPOXEMIA; Z99.81 - DEPENDENCE ON SUPPLEMENTAL OXYGEN SNOMED Code(s): 542972764 (3) Obstructive sleep apnea treated with BiPAP Current Visit: Yes Status: Acute Code(s): G47.33 - OBSTRUCTIVE SLEEP APNEA (ADULT) (PEDIATRIC) SNOMED Code(s): 98370659 (4) Acute exacerbation of chronic obstructive airways disease Current Visit: No Status: Acute Code(s): J44.1 - CHRONIC OBSTRUCTIVE PULMONARY DISEASE W (ACUTE) EXACERBATION SNOMED Code(s): 157884314 (5) End stage renal disease on dialysis Current Visit: No Status: Acute Code(s): N18.6 - END STAGE RENAL DISEASE; Z99.2 - DEPENDENCE ON RENAL DIALYSIS SNOMED Code(s): 011733854 (6) Pure hypercholesterolemia Current Visit: No Status: Acute Code(s): E78.00 - PURE HYPERCHOLESTEROLEMIA, UNSPECIFIED SNOMED Code(s): 574655332 (7) Readmission after hospitalization within last 30 days Current Visit: No Status: Acute Code(s): NUI6777 - SNOMED Code(s): 191363480 (8) Systolic congestive heart failure Current Visit: No Status: Acute Code(s): I50.20 - UNSPECIFIED SYSTOLIC ( CONGESTIVE) HEART FAILURE SNOMED Code(s): 90661656 (9) Seizure Current Visit: Yes Status: Acute Code(s): R56.9 - UNSPECIFIED CONVULSIONS SNOMED Code(s): 85244227 Plan: Waiting on the determining factors of the blood in her bedside commode, whether this is from urine or from the rectum. Straight cath and Hemoccult and rectum are pending. A GI or urology consult may be needed depending on test results. She'll continue dialysis per nephrology. She'll continue pulmonology recommendations for bronchodilators and her BiPAP. They doubt she has pneumonia. He remains on Omnicef for antibiotic coverage. She remains on Symbicort and albuterol [facility] remains on him on methylprednisolone, Singulair, She remains on permanent down and Dilantin for seizure disorder. Repeat labs in a.m. She'll be reevaluated in the next 24 hours.
--- NOTE | 2020-09-18 15:34 | P.PN ---
Subjective Progress Note Date: 09/18/20 Principal diagnosis: Acute on chronic hypoxic respiratory failure, multifactorial mostly related to fluid overload and end-stage renal disease. This is a 65-year-old female with multiple medical problems including obesity, end-stage renal disease, on hemodialysis, COPD, hypertension, seizure disorder, peripheral vessel occlusive disease, chronic liver disease with possible cir rhosis of the liver. Chronic obstructive pulmonary disease chronic hypoxic respiratory failure, on home O2 at 4 L nasal cannula. History of irritable bowel syndrome, history of type 2 diabetes. Patient was seen in the ER with mostly symptoms of shortness of breath, apparently she missed her dialysis, and she is also known to have history of LV dysfunction with cardiomyopathy and ejection fraction of 30%, chest x-ray upon presentation showed evidence of pulmonary edema. Patient was admitted, as I was evaluating the patient, patient was being dialyzed by nephrology. She was already on BiPAP, and she was feeling better during the dialysis. The patient is not a great historian, seems to be a bit confused. Patient was reevaluated today on 09/18/2020, remains on the medical floor, remains on few liters nasal cannula, she was on BiPAP yesterday when I saw her, she is now on 4 L nasal cannula with O2 saturation 97%. Patient is not in any distress. No labs were done today except normal TSH and blood sugar 154. Objective - Vital Signs Vital signs: Vital Signs Temp 98.4 F 09/18/20 07:28 Pulse 76 09/18/20 14:00 Resp 16 09/18/20 14:00 BP 120/67 09/18/20 11:21 Pulse Ox 97 09/18/20 11:24 Intake & Output 09/17/20 09/18/20 09/18/20 18:59 06:59 18:59 Intake Total 300 630 Output Total 4000 225 Balance -3700 -225 630 Weight 111.5 kg Intake: Oral 300 630 Output: Urine 225 Hemodialysis 4000 Other: Voiding Method Incontinent Incontinent Incontinent External Catheter External Catheter External Catheter # Voids 1 # Bowel Movements 0 - Exam General: Revealed a 65-year-old female obese, in no distress, on 4 L nasal cannula HEENT: Short obese neck, no neck masses, no thyromegaly, dry mucous membranes. Cardiac: History and pressors, no S3 gallop.] Lungs: Diminished breath sounds at the bases crackles at the bases no rhonchi and no wheezes. Symmetrical chest expansion noted. Abdomen: Obese, soft, nontender, no megaly, no rebound. Extremes: [Trace of bipedal edema, no clubbing, no cyanosis. Musculoskeletal: No limitations in range of motion, no deformities. Skin: [No rash.] Neurologic: Patient is a bit confused, however she is responding to questions, at times not appropriate. Lymphatic: [No adenopathy.] - Labs CBC & Chem 7: 09/17/20 08:06 09/17/20 08:06 Labs: Abnormal Lab Results - Last 24 Hours (Table) 09/17/20 09/17/20 09/18/20 Range/Units 08:06 20:33 06:08 POC Glucose (mg/dL) 156 H 140 H (75-99) mg/dL TIBC 217 L (228-460) ug/dL 09/18/20 Range/Units 11:51 POC Glucose (mg/dL) 154 H (75-99) mg/dL TIBC (228-460) ug/dL Microbiology - Last 24 Hours (Table) 09/17/20 00:02 Blood Culture - Preliminary Blood No Growth after 24 hours 09/16/20 22:54 Blood Culture - Preliminary Blood No Growth after 24 hours Assessment and Plan Assessment: Impression: Acute on chronic hypoxic for failure, multifactorial, but mostly related to acute on chronic systolic congestive heart failure and fluid overload from end- stage renal disease and noncompliance with dialysis. Obstructive sleep apnea syndrome. History of chronic hypoxic respiratory failure History of chronic obstructive pulmonary disease presently inactive. End-stage renal disease on hemodialysis. History of nonalcoholic fatty liver. Chronic systolic congestive heart failure. Chronic anemia secondary to chronic disease. Benign essential hypertension Type 2 diabetes. History of seizure disorder Resident of [facility] facility. Strongly doubt pneumonia. Recommendation: Continue dialysis Titrate oxygen, maintaining O2 saturation above 90%. Continue bronchodilators. Consider discharge planning in the next 24 hours.. Continue bronchodilators. Continue Omnicef orally as the patient had recent history of pneumonia. Discontinue Zithromax. We'll continue to follow Time with Patient: Less than 30
[2020-09-18] MEDS: ONDANSETRON 4 MG TAB PO PRN (15:58)
[2020-09-18 16:41] LABS: Glucose,Whole Blood 117 mg/dL (75-99)
[2020-09-18] MEDS: ATORVASTATIN 10 MG TAB PO SCH (20:28)
[2020-09-18] MEDS: PRIMIDONE 50 MG TAB PO SCH (20:28)
[2020-09-18] MEDS: MONTELUKAST 10 MG TAB PO SCH (20:28)
[2020-09-18] MEDS: traZODone HCL 50 MG TAB PO SCH (20:29)
[2020-09-18 20:48] LABS: Glucose,Whole Blood 181 mg/dL (75-99)
[2020-09-18] MEDS: ALPRAZolam 1 MG TAB PO PRN (22:54)
[2020-09-19] MEDS: PHENYTOIN SODIUM EXTENDED 100 MG CAP PO SCH ×3 (03:00→21:38)
[2020-09-19] MEDS: ACETAMINOPHEN TAB 325 MG TAB PO PRN ×4 (05:04→23:42)
[2020-09-19] MEDS: CALCIUM ACETATE 667 MG TAB PO SCH ×4 (06:41→21:39)
[2020-09-19 06:55] LABS: Glucose,Whole Blood 112 mg/dL (75-99)
--- NOTE | 2020-09-19 07:10 | XR ---
EXAMINATION TYPE: XR chest 2V DATE OF EXAM: 09/19/2020 COMPARISON: 09/17/2020 HISTORY: Shortness of breath TECHNIQUE: Frontal and lateral views of the chest are obtained. FINDINGS: Increasing infiltrate throughout the right lung as well as areas of patchy infiltrate within the carter phery of the left lung. Large bore central venous line unchanged in position. Heart size is stable. Mediastinal structures are stable and grossly unremarkable. No evidence for hilar prominence. Degenerative changes dorsal spine. IMPRESSION: 1. Increasing infiltrate throughout the right lung as well as areas of patchy infiltrate within the p eriphery of the left lung.
[2020-09-19] MEDS: SYMBICORT 80-4.5 MCG INHALER INHALATION SCH ×2 (08:15→19:26)
[2020-09-19] MEDS: ALBUTEROL HFA INHALER INHALATION SCH ×4 (08:15→19:26)
[2020-09-19] MEDS ORDERED: LIDOCAINE-PRILOCAINE 2.5-2.5% CREAM 5 GM TUBE TOPICAL SCH (09:00)
[2020-09-19] MEDS: FUROSEMIDE 80 MG TAB PO SCH ×2 (09:01→21:38)
[2020-09-19] MEDS: CEFDINIR 300 MG CAP PO SCH (09:01)
[2020-09-19] MEDS: ASPIRIN 81 MG PO SCH (09:01)
[2020-09-19] MEDS: methylPREDNISolone SOD SUCCI 125 MG/2 ML VIAL IV SCH ×3 (09:01→23:42)
[2020-09-19] MEDS: PANTOPRAZOLE 40 MG TABLET PO SCH (09:01)
[2020-09-19] MEDS: FOLIC ACID 1 MG TAB PO SCH (09:01)
[2020-09-19] MEDS: METOPROLOL TARTRATE 25 MG TAB PO SCH ×2 (09:02→21:38)
[2020-09-19] MEDS: FOLIC ACID-VIT B COMPLEX-VIT C 1 CAP PO SCH (09:02)
[2020-09-19 10:32] LABS: Anisocytosis Slight; Basophils % (A) 1 %; Eosinophils # (A) 0.1 k/uL (0-0.7); Eosinophils % (A) 2 %; HCT 21.1 % (34.0-46.0); Hypochromasia Slight; Lymphocytes # (A) 1.2 k/uL (1.0-4.8); Lymphocytes % (A) 23 %; MCH 33.3 pg (25.0-35.0); MCHC 33.1 g/dL (31.0-37.0); MCV 100.4 fL (80.0-100.0); Macrocytosis Slight; Mean Platelet Volume 7.3; Monocytes # (A) 0.4 k/uL (0-1.0); Monocytes % (A) 8 %; Neutrophils # (A) 3.3 k/uL (1.3-7.7); Neutrophils % (A) 65 %; Platelet Count 242 k/uL (150-450); RDW 16.7 % (11.5-15.5); WBC 5.1 k/uL (3.8-10.6)
[2020-09-19 10:52] LABS: Calcium 7.3 mg/dL (8.4-10.2); Potassium 4.9 mmol/L (3.5-5.1)
[2020-09-19] MEDS: [UNRECOGNIZED DRUG - OTHER] PO SCH ×2 (11:40→21:27)
[2020-09-19] MEDS: ONDANSETRON 4 MG TAB PO PRN (11:48)
[2020-09-19] MEDS: ALPRAZolam 1 MG TAB PO PRN ×2 (11:48→21:38)
--- NOTE | 2020-09-19 12:01 | P.PN ---
Subjective Patient is seen in follow-up for her incisional disease. She is maintained on hemodialysis on Saturday schedule. Tolerating dialysis well. Denies chest pain or shortness of breath. Currently on nasal cannula. Vital signs are stable. General: The patient appeared well nourished and normally developed. HEENT: Head exam is unremarkable. On nasal cannula. LUNGS: Breath sounds decreased. HEART: Rate and Rhythm are regular. ABDOMEN: Soft, nontender. Obese. EXTREMITITES: Trace edema. Objective - Vital Signs Vital signs: Vital Signs Temp 97.6 F 09/19/20 08:00 Pulse 81 09/19/20 08:00 Resp 18 09/19/20 08:00 BP 116/63 09/19/20 08:00 Pulse Ox 99 09/19/20 08:16 Intake & Output 09/18/20 09/19/20 09/19/20 18:59 06:59 18:59 Intake Total 870 80 360 Output Total 600 Balance 870 -520 360 Weight 109 kg Intake: IV 80 0.9 80 Oral 870 360 Output: Urine 600 Other: Voiding Method Incontinent Bedside Commode Bedside Commode External Catheter # Voids 1 1 - Labs CBC & Chem 7: 09/19/20 08:30 09/19/20 08:30 Labs: Abnormal Lab Results - Last 24 Hours (Table) 09/18/20 09/18/20 09/19/20 Range/Units 16:40 20:36 06:35 RBC (3.80-5.40) m/uL Hgb (11.4-16.0) gm/dL Hct (34.0-46.0) % MCV (80.0-100.0) fL RDW (11.5-15.5) % Sodium (137-145) mmol/L BUN (7-17) mg/dL Creatinine (0.52-1.04) mg/dL Glucose (74-99) mg/dL POC Glucose (mg/dL) 117 H 181 H 112 H (75-99) mg/dL Calcium (8.4-10.2) mg/dL 09/19/20 09/19/20 Range/Units 08:30 08:30 RBC 2.10 L (3.80-5.40) m/uL Hgb 7.0 L (11.4-16.0) gm/dL Hct 21.1 L (34.0-46.0) % MCV 100.4 H (80.0-100.0) fL RDW 16.7 H (11.5-15.5) % Sodium 132 L (137-145) mmol/L BUN 71 H (7-17) mg/dL Creatinine 3.96 H (0.52-1.04) mg/dL Glucose 133 H (74-99) mg/dL POC Glucose (mg/dL) (75-99) mg/dL Calcium 7.3 L (8.4-10.2) mg/dL Microbiology - Last 24 Hours (Table) 09/16/20 22:54 Blood Culture - Preliminary Blood No Growth after 48 hours 09/17/20 00:02 Blood Culture - Preliminary Blood No Growth after 48 hours Assessment and Plan Plan: Assessment: 1. End-stage renal disease maintained on hemodialysis on Saturday schedule. 2. Acute on chronic systolic CHF with ejection fraction of 30-35%. 3. Volume overload. Improved with ultrafiltration. 4. Chronic kidney disease mineral bone disease maintained on PhosLo. 5. Anemia of chronic kidney disease maintained on Aranesp. 6. Obesity. 7. Recent pneumonia requiring intubation. 8. Hyperkalemia secondary to chronic kidney disease. Improved postdialysis. Plan: Currently seen while undergoing hemodialysis. Next treatment on Saturday. Transfuse 1 unit of packed red cells with dialysis today.
[2020-09-19 12:21] LABS: Glucose,Whole Blood 144 mg/dL (75-99)
[2020-09-19 15:57] LABS: Prothrombin Time 10.7 sec (9.0-12.0)
[2020-09-19 17:16] LABS: Glucose,Whole Blood 202 mg/dL (75-99)
[2020-09-19] MEDS: HYDROPHILIC CREAM 180 GM TUBE TOPICAL SCH (18:33)
--- NOTE | 2020-09-19 19:05 | CONS ---
CONSULTATION DATE OF DICTATION: 09/19/2020 REASON FOR CONSULTATION: Rectal bleeding. HISTORY OF PRESENT ILLNESS: The patient is a 65-year-old pleasant white female with history of end-stage renal disease, on hemodialysis, admitted to the hospital with acute exacerbation of COPD. She was just discharged from the hospital a few days ago for the same reason. During this hospitalization she was tested for COVID by PCR, which was negative. While in the hospital she developed an episode of rectal bleeding yesterday. The patient states that there was a moderate amount of blood which was bright red and she thinks she had some constipation and strain at stool. Her hemoglobin yesterday was 7.8 g/dL and this morning hemoglobin is still pending. Since then she did not have any further episodes of bleeding. She denies any abdominal pain. No nausea, no vomiting. She never had these symptoms in the past. She recalls having a colonoscopy about 10 years ago. PAST MEDICAL HISTORY: Significant for hypertension, hyperlipidemia, end-stage renal disease, on hemodialysis for the last one year, history of gastroesophageal reflux disease, COPD. MEDICATIONS: Medications at home include Xanax, trazodone, Ultram, Zofran, albuterol, Zocor, Mysoline, Singulair, omeprazole, Dilantin, Lopressor, apresoline, Lasix, probiotics, calcium acetate, aspirin, Tylenol, PhosLo and Breo Ellipta. ALLERGIES: PENICILLIN. SOCIAL HISTORY: Remote history of smoking. No alcohol use. FAMILY HISTORY: Mother has diabetes mellitus and hypertension. Father has hypertension. PAST SURGICAL HISTORY: Ear surgery, hysterectomy, bilateral carotid endarterectomy, left ankle surgery, right ear surgery, sinus surgery, colonoscopy several years ago. REVIEW OF SYSTEMS: CARDIOPULMONARY: She denies any chest pain or shortness of breath. GENITOURINARY: No dysuria or hematuria. MUSCULOSKELETAL: Unremarkable. SKIN: Unremarkable. ENDOCRINE: Unremarkable. PSYCHIATRIC: Unremarkable other than anxiety, depression. NEUROLOGY: Unremarkable. ENT/VISION: Unremarkable. CONSTITUTIONAL: No recent weight loss. No fever, chills, night sweats. HEMATOLOGY: Chronic anemia. PHYSICAL EXAMINATION: She appears comfortable. No apparent distress. VITAL SIGNS: Stable. Blood pressure is 101/55, pulse rate 80, temperature 97. HEENT examination unremarkable. Conjunctivae pink. Sclerae anicteric. Oral cavity no lesions. NECK: No JVD or lymph node enlargement. CHEST: Decreased breath sounds bilaterally. HEART: Regular rate and rhythm. ABDOMEN: Obese. Bowel sounds are positive. No organomegaly. EXTREMITIES: No pedal edema. NEUROLOGIC: Alert and oriented x3. No focal deficits. LABS: Labs done 2 days ago: Hemoglobin was 7.7 and today it is 7 g/dL. WBC 5.1, platelets 242. BUN is 76, creatinine 4.57. Sodium 132, potassium 4.9, chloride 98, CO2 26. Serum iron 21, TIBC 217, iron saturation 32%. IMPRESSION: 1. Rectal bleeding x1 yesterday. Patient states that she had moderate amount of bright red blood in the stool following a bowel movement yesterday; none since then. She thinks she was slightly constipated and had strained at stool, following which she had an episode of rectal bleeding. She has been hemodynamically stable. She did drop her hemoglobin from 7.8 to 7 g/dL, and most likely we are dealing with a colonic pathology, possibly internal hemorrhoids. Her last colonoscopy was about 10 years ago, and according to the patient it was within normal limits. 2. End-stage renal disease, on hemodialysis. 3. Exacerbation of chronic obstructive pulmonary disease. 4. Coronavirus PCR is negative. 5. History of obstructive sleep apnea. 6. History of hypertension and hyperlipidemia. 7. Gastroesophageal reflux disease. RECOMMENDATIONS: 1. Monitor CBC daily. 2. I discussed with the patient that if she continues to have rectal bleeding, we may have to do a colonoscopy during this hospitalization. However, she refuses to have this done at the present time. I did suggest that once her cardiopulmonary status stabilizes, we will consider doing a colonoscopy on an outpatient basis. For now we will watch her closely, monitor CBC on a daily basis and transfuse if the hemoglobin is less than 7. The patient is agreeable with this plan. We will continue with her regular diet. Monitor her closely. Thank you for this consultation. MMODL / IJN: [id number] /
[2020-09-19 20:47] LABS: Glucose,Whole Blood 251 mg/dL (75-99)
[2020-09-19] MEDS: MONTELUKAST 10 MG TAB PO SCH (21:38)
[2020-09-19] MEDS: PRIMIDONE 50 MG TAB PO SCH (21:38)
[2020-09-19] MEDS: ATORVASTATIN 10 MG TAB PO SCH (21:38)
[2020-09-19] MEDS: traZODone HCL 50 MG TAB PO SCH (21:38)
[2020-09-20] MEDS: PHENYTOIN SODIUM EXTENDED 100 MG CAP PO SCH (02:42)
[2020-09-20 03:01] VITALS: PULSE 81; RESP 18
[2020-09-20] MEDS: CALCIUM ACETATE 667 MG TAB PO SCH (06:45)
[2020-09-20] MEDS: ACETAMINOPHEN TAB 325 MG TAB PO PRN (06:45)
[2020-09-20] MEDS ORDERED: INSULIN ASPART (NovoLOG) 100 UNIT/ML VIAL SQ SCH (07:30)
[2020-09-20] MEDS: ALBUTEROL HFA INHALER INHALATION SCH ×2 (07:42→11:44)
[2020-09-20] MEDS: SYMBICORT 80-4.5 MCG INHALER INHALATION SCH (07:42)
[2020-09-20 08:18] LABS: Glucose,Whole Blood 153 mg/dL (75-99)
--- NOTE | 2020-09-20 09:10 | P.PN ---
Subjective Progress Note Date: 09/19/20 Brie is a 65-year-old female well-known to my practice who is been living at [facility] ,patient was recently discharged from the hospital secondary to pneumonia with an acute exacerbation of COPD patient had been intubated on the vent for approximately 3 days. Additionally she has end-stage renal disease hemodialysis dependent being dialyzed Saturday and Saturday she missed Saturday's dialysis and became overloaded with fluid and was becoming extremely dyspneic again When asked why she missed dialysis she couldn't give me a good reason she does smiled and laughed. 09/18/2020: Patient was readmitted from [facility]. This dialysis patient apparently had been increased shortness of breath and Mr. Saturday dialysis became fluid overloaded. She was readmitted for this. She ended up having dialysis again yesterday. Nephrology it seen her. Pulmonology also seen her she required BiPAP. She is now off on standby in BiPAP and using a nasal cannula. On my visit today, there is stool in a bedside commode along with dark red blood, liquid, approximately 500-700 mL. Staff are unsure the cause of this. A rectal Hemoccult is pending. Pulse ox 97% on 4 L of O2 via nasal ca nnula. Blood pressure stable. Labs are pending for today. Last hemoglobin was 7.8 yesterday. Blood cultures are negative 24 hours. Currently Brie is quite confused, but pleasant. She denies any chest pains, pressures, or shortness breath this time. She denies any nausea or vomiting. 09/19/2020 continue on Cefdnir. Afebrile, normal WBC. Hemoglobin 7. No further rectal bleeding. No bleeding reported. Denies chest pain or palpitations.Hemodialysis today. Objective - Vital Signs Vital signs: Vital Signs Temp 97.0 F L 09/19/20 12:00 Pulse 80 09/19/20 14:00 Resp 16 09/19/20 14:00 BP 101/55 09/19/20 12:00 Pulse Ox 96 09/19/20 12:00 Intake & Output 09/18/20 09/19/20 09/19/20 18:59 06:59 18:59 Intake Total 870 80 960 Output Total 600 Balance 870 -520 960 Weight 109 kg Intake: IV 80 0.9 80 Oral 870 960 Output: Urine 600 Other: Voiding Method Incontinent Bedside Commode Bedside Commode External Catheter # Voids 1 1 - Exam - Exam General: awake and alert, in no distress, on nasal cannula oxygen at 4 L/m. Neck: The neck is supple, no JVD. Cardiovascular: S1S2 is normal, There is a regular rate and rhythm. Trace/6 systolic murmur, no rub or gallop is appreciated. Trace pedal edema Respiratory: Lungs are slightly coarse to auscultation bilaterally, there is left and right bibasilar rhonchi at the bases respirations are non-labored, breath sounds are equal. Gastrointestinal: Soft, non-tender abdomen without masses or organomegaly noted. There is no rebound or guarding present. Bowel sounds are unremarkable. It is distended due to truncal obesity. Neurological: CN II-XII grossly intact. No focal deficits. Skin: Skin is warm and dry and no rashes noted. - Labs CBC & Chem 7: 09/19/20 08:30 09/19/20 08:30 Labs: Abnormal Lab Results - Last 24 Hours (Table) 09/18/20 09/18/20 09/19/20 Range/Units 16:40 20:36 06:35 RBC (3.80-5.40) m/uL Hgb (11.4-16.0) gm/dL Hct (34.0-46.0) % MCV (80.0-100.0) fL RDW (11.5-15.5) % Sodium (137-145) mmol/L BUN (7-17) mg/dL Creatinine (0.52-1.04) mg/dL Glucose (74-99) mg/dL POC Glucose (mg/dL) 117 H 181 H 112 H (75-99) mg/dL Calcium (8.4-10.2) mg/dL Crossmatch 09/19/20 09/19/20 09/19/20 Range/Units 08:30 08:30 11:55 RBC 2.10 L (3.80-5.40) m/uL Hgb 7.0 L (11.4-16.0) gm/dL Hct 21.1 L (34.0-46.0) % MCV 100.4 H (80.0-100.0) fL RDW 16.7 H (11.5-15.5) % Sodium 132 L (137-145) mmol/L BUN 71 H (7-17) mg/dL Creatinine 3.96 H (0.52-1.04) mg/dL Glucose 133 H (74-99) mg/dL POC Glucose (mg/dL) 144 H (75-99) mg/dL Calcium 7.3 L (8.4-10.2) mg/dL Crossmatch 09/19/20 Range/Units 12:47 RBC (3.80-5.40) m/uL Hgb (11.4-16.0) gm/dL Hct (34.0-46.0) % MCV (80.0-100.0) fL RDW (11.5-15.5) % Sodium (137-145) mmol/L BUN (7-17) mg/dL Creatinine (0.52-1.04) mg/dL Glucose (74-99) mg/dL POC Glucose (mg/dL) (75-99) mg/dL Calcium (8.4-10.2) mg/dL Crossmatch See Detail Microbiology - Last 24 Hours (Table) 09/16/20 22:54 Blood Culture - Preliminary Blood No Growth after 48 hours 09/17/20 00:02 Blood Culture - Preliminary Blood No Growth after 48 hours Assessment and Plan Assessment: (1) COPD (chronic obstructive pulmonary disease) Current Visit: Yes Status: Acute Code(s): J44.9 - CHRONIC OBSTRUCTIVE PULMONARY DISEASE, UNSPECIFIED SNOMED Code(s): 78403206 (2) Hypoxemia requiring supplemental oxygen Current Visit: Yes Status: Acute Code(s): R09.02 - HYPOXEMIA; Z99.81 - DEPENDENCE ON SUPPLEMENTAL OXYGEN SNOMED Code(s): 070066200 (3) Obstructive sleep apnea treated with BiPAP Current Visit: Yes Status: Acute Code(s): G47.33 - OBSTRUCTIVE SLEEP APNEA (ADULT) (PEDIATRIC) SNOMED Code(s): 18696139 (4) Acute exacerbation of chronic obstructive airways disease Current Visit: No Status: Acute Code(s): J44.1 - CHRONIC OBSTRUCTIVE PULMONARY DISEASE W (ACUTE) EXACERBATION SNOMED Code(s): 341593100 (5) End stage renal disease on dialysis Current Visit: No Status: Acute Code(s): N18.6 - END STAGE RENAL DISEASE; Z99.2 - DEPENDENCE ON RENAL DIALYSIS SNOMED Code(s): 089194564 (6) Pure hypercholesterolemia Current Visit: No Status: Acute Code(s): E78.00 - PURE HYPERCHOLESTEROLEMIA, UNSPECIFIED SNOMED Code(s): 720380405 (7) Readmission after hospitalization within last 30 days Current Visit: No Status: Acute Code(s): AXD4514 - SNOMED Code(s): 836229603 (8) Systolic congestive heart failure Current Visit: No Status: Acute Code(s): I50.20 - UNSPECIFIED SYSTOLIC (CONGESTIVE) HEART FAILURE SNOMED Code(s): 98498727 (9) Seizure Current Visit: Yes Status: Acute Code(s): R56.9 - UNSPECIFIED CONVULSIONS SNOMED Code(s): 32279955 (10) Rectal bleeding X1 with possible hemmorroids. GI following (11) Anemia of chronic disease Plan: Continue on current medication regime ,monitoring and symptomatic t reatment. Evaluated by GI, conservative management including continue monitoring overnight, OP colonscopy. Discharge planning in progress for tomorrow back to [facility]. The impression and plan of care has been dictated as directed. : I performed a history and examination of this patient, discussed the same with the dictator. I agree with the dictator's note ,documented as a scribe. Any additional findings or plans will be noted.
[2020-09-20] MEDS: [UNRECOGNIZED DRUG - OTHER] PO SCH (09:29)
--- NOTE | 2020-09-20 09:40 | P.DS ---
Providers Date of admission: 09/16/20 22:39 Expected date of discharge: 09/20/20 Attending physician: Adal Mari Consults: 09/16/20 22:43 Consult Physician Routine Consulting Provider: Kaia Gunderson Consult Reason/Comments: ESRD Do you want consulting provider notified?: Yes 09/16/20 22:54 Consult Physician Routine Consulting Provider: Carolyn Cifuentes Consult Reason/Comments: ESRD,COPD, PNA Do you want consulting provider notified?: Yes 09/18/20 13:09 Consult Physician Routine Consulting Provider: John Ni Consult Reason/Comments: DARK RED BLOOD PER RECTUM Do you want consulting provider notified?: Yes Primary care physician: [facility] Course: Final Diagnoses: (1) Hypoxemia requiring supplemental oxygen, acute on chronic, related to acute on chronic CHF, systolic dysfunction, noncompliance with dialysis with resulting fluid overload, in a patient with recent history of pneumonia. Current Visit: Yes Status: Acute Code(s): R09.02 - HYPOXEMIA; Z99.81 - DEPENDENCE ON SUPPLEMENTAL OXYGEN SNOMED Code(s): 670662092 (2) COPD (chronic obstructive pulmonary disease),stable Current Visit: Yes Status: Acute Code(s): J44.9 - CHRONIC OBSTRUCTIVE PULMONARY DISEASE, UNSPECIFIED SNOMED Code(s): 10608103 (3) Obstructive sleep apnea treated with BiPAP Current Visit: Yes Status: Acute Code(s): G47.33 - OBSTRUCTIVE SLEEP APNEA (ADULT) (PEDIATRIC) SNOMED Code(s): 67821514 (4) Acute exacerbation of chronic obstructive airways disease Current Visit: No Status: Acute Code(s): J44.1 - CHRONIC OBSTRUCTIVE PULMONARY DISEASE W (ACUTE) EXACERBATION SNOMED Code(s): 525132907 (5) End stage renal disease on dialysis Current Visit: No Status: Acute Code(s): N18.6 - END STAGE RENAL DISEASE; Z99.2 - DEPENDENCE ON RENAL DIALYSIS SNOMED Code(s): 008029089 (6) Pure hypercholesterolemia Current Visit: No Status: Acute Code(s): E78.00 - PURE HYPERCHOLESTEROLEMIA, UNSPECIFIED SNOMED Code(s): 344313607 (7) Readmission after hospitalization within last 30 days Current Visit: No Status: Acute Code(s): KLO7298 - SNOMED Code(s): 226411361 (8) Systolic congestive heart failure Current Visit: No Status: Acute Code(s): I50.20 - UNSPECIFIED SYSTOLIC (CONGESTIVE) HEART FAILURE SNOMED Code(s): 64502100 (9) Seizure Current Visit: Yes Status: Acute Code(s): R56.9 - UNSPECIFIED CONVULSIONS SNOMED Code(s): 70515561 (10) Rectal bleeding X1 with possible hemmorroids. GI following (11) Anemia of chronic disease Hospital course:Brie is a 65-year-old female well-known to my practice who is been living at [facility] ,patient was recently discharged from the hospital secondary to pneumonia with an acute exacerbation of COPD patient had been intubated on the vent for approximately 3 days. Additionally she has end- stage renal disease hemodialysis dependent being dialyzed Saturday and Saturday she missed Saturday's dialysis and became overloaded with fluid and was becoming extremely dyspneic again When asked why she missed dialysis she couldn't give me a good reason she does smiled and laughed. 09/18/2020: Patient was readmitted from [facility]. This dialysis patient apparently had been increased shortness of breath and Mr. Saturday dialysis became fluid overloaded. She was readmitted for this. She ended up having dialysis again yesterday. Nephrology it seen her. Pulmonology also seen her she required BiPAP. She is now off on standby in BiPAP and using a nasal cannula. On my visit today, there is stool in a bedside commode along with dark red blood, liquid, approximately 500-700 mL. Staff are unsure the cause of this. A rectal Hemoccult is pending. Pulse ox 97% on 4 L of O2 via nasal cannula. Blood pressure stable. Labs are pending for today. Last hemoglobin was 7.8 yesterday. Blood cultures are negative 24 hours. Currently Brie is quite confused, but pleasant. She denies any chest pains, pr essures, or shortness breath this time. She denies any nausea or vomiting. 09/19/2020 continue on Cefdnir. Afebrile, normal WBC. Hemoglobin 7. No further rectal bleeding. No bleeding reported. Denies chest pain or palpitations.Hemodialysis today. Evaluated by GI, conservative management including continue monitoring overnight, OP colonscopy. Patient will be discharged today in a stable cond ition with guarded prognosis to [facility] pending transfusion 1 unit packed RBCs. The impression and plan of care has been dictated as directed. : I performed a history and examination of this patient, discussed the same with the dictator. I agree with the dictator's note ,documented as a scribe. Any additional findings or plans will be noted. Patient Condition at Discharge: Stable Plan - Discharge Summary Discharge Rx Participant: No New Discharge Prescriptions: New Cefdinir 300 mg PO DAILY #5 cap Darbepoetin Scott [Aranesp] 60 mcg SQ Q7D syringe Continue Phenytoin Sodium Extended [Dilantin] 100 mg PO Q8H Folic Acid 1 mg PO DAILY Montelukast [Singulair] 10 mg PO HS #30 tab Primidone [Mysoline] 100 mg PO HS traZODone HCL 150 mg PO HS Simvastatin [Zocor] 10 mg PO HS Ondansetron [Zofran] 4 mg PO Q6H PRN PRN Reason: Nausea And Vomiting Lidocaine-Prilocaine Cream [Emla Cream 2.5%/2.5%] 1 applic TOPICAL MOWEFR Folic Acid-Vit B Complex-Vit C [Nephrocaps] 1 cap PO DAILY Calcium Acetate 2,001 mg PO TID-W/MEALS Metoprolol Tartrate [Lopressor] 25 mg PO BID tab Albuterol Inhaler [Ventolin Hfa Inhaler] 2 puff INHALATION RT-QID PRN PRN Reason: Shortness Of Breath ALPRAZolam [Xanax] 1 mg PO BID PRN #6 tab PRN Reason: Anxiety Calcium Acetate [PhosLo] 667 mg PO HS Fluticasone/Vilanterol [Breo Ellipta 100-25 Mcg Inhaler] 1 puff INHALATION RT-DAILY hydrALAZINE HCL [Apresoline] 25 mg PO BID tab Aspirin 81 mg PO DAILY chew Acetaminophen Tab [Tylenol] 650 mg PO Q6HR PRN tab PRN Reason: Mild Pain Or Fever > 100.5 Furosemide [Lasix] 80 mg PO Q12HR #1 tablet Omeprazole 20 mg PO DAILY Diff-Stat Probiotic 2 cap PO BID Changed traMADol HCl [Ultram] 50 mg PO Q6H PRN #12 tab PRN Reason: Pain Discontinued Cefuroxime Axetil [Ceftin] 500 mg PO DAILY 5 Days #5 tab Discharge Medication List Phenytoin Sodium Extended [Dilantin] 100 mg PO Q8H 11/29/15 [History] Folic Acid 1 mg PO DAILY 07/22/17 [History] Montelukast [Singulair] 10 mg PO HS #30 tab 12/26/17 [Rx] Primidone [Mysoline] 100 mg PO HS 07/20/18 [History] Calcium Acetate 2,001 mg PO TID-W/MEALS 09/06/20 [History] Calcium Acetate [PhosLo] 667 mg PO HS 09/06/20 [History] Fluticasone/Vilanterol [Breo Ellipta 100-25 Mcg Inhaler] 1 puff INHALATION RT- DAILY 09/06/20 [History] Folic Acid-Vit B Complex-Vit C [Nephrocaps] 1 cap PO DAILY 09/06/20 [History] Lidocaine-Prilocaine Cream [Emla Cream 2.5%/2.5%] 1 applic TOPICAL MOWEFR 09/06/20 [History] Ondansetron [Zofran] 4 mg PO Q6H PRN 09/06/20 [History] Simvastatin [Zocor] 10 mg PO HS 09/06/20 [History] traZODone HCL 150 mg PO HS 09/06/20 [History] Acetaminophen Tab [Tylenol] 650 mg PO Q6HR PRN tab 09/12/20 [Rx] Aspirin 81 mg PO DAILY chew 09/12/20 [Rx] Furosemide [Lasix] 80 mg PO Q12HR #1 tablet 09/12/20 [Rx] Metoprolol Tartrate [Lopressor] 25 mg PO BID tab 09/12/20 [Rx] hydrALAZINE HCL [Apresoline] 25 mg PO BID tab 09/12/20 [Rx] Albuterol Inhaler [Ventolin Hfa Inhaler] 2 puff INHALATION RT-QID PRN 09/16/20 [History] Diff-Stat Probiotic 2 cap PO BID 09/16/20 [History] Omeprazole 20 mg PO DAILY 09/16/20 [History] ALPRAZolam [Xanax] 1 mg PO BID PRN #6 tab 09/20/20 [Rx] Cefdinir 300 mg PO DAILY #5 cap 09/20/20 [Rx] Darbepoetin Scott [Aranesp] 60 mcg SQ Q7D syringe 09/20/20 [Rx] traMADol HCl [Ultram] 50 mg PO Q6H PRN #12 tab 09/20/20 [Rx] Follow up Appointment(s)/Referral(s): Carolyn Cifuentes MD [STAFF PHYSICIAN] - 2 Weeks Adal Mari Jr, DO [Primary Care Provider] - 1 Week (After DC from subacute rehab) Harriet Kwok MD [STAFF PHYSICIAN] - 2 Weeks Tavo Winchester DO [STAFF PHYSICIAN] - 1 Week Activity/Diet/Wound Care/Special Instructions: [facility] CBC,bmp in 3 days HD as per nephrology Discharge Disposition: TRANSFER TO SNF/ECF
[2020-09-20 10:24] LABS: Anisocytosis Slight; HCT 22.4 % (34.0-46.0); HGB 7.1 gm/dL (11.4-16.0); Hypochromasia Moderate; MCH 32.3 pg (25.0-35.0); MCHC 31.7 g/dL (31.0-37.0); MCV 101.8 fL (80.0-100.0); Macrocytosis Slight; Mean Platelet Volume 6.7; Platelet Count 241 k/uL (150-450); RDW 16.4 % (11.5-15.5); WBC 5.5 k/uL (3.8-10.6)
[2020-09-20 10:37] LABS: Calcium 7.6 mg/dL (8.4-10.2); Potassium 4.6 mmol/L (3.5-5.1)
[2020-09-20] MEDS: ALPRAZolam 1 MG TAB PO PRN (10:38)
[2020-09-20] MEDS: ASPIRIN 81 MG PO SCH (10:38)
[2020-09-20] MEDS: methylPREDNISolone SOD SUCCI 125 MG/2 ML VIAL IV SCH (10:38)
[2020-09-20] MEDS: FUROSEMIDE 80 MG TAB PO SCH (10:39)
[2020-09-20] MEDS: PANTOPRAZOLE 40 MG TABLET PO SCH (10:39)
[2020-09-20] MEDS: FOLIC ACID 1 MG TAB PO SCH (10:39)
[2020-09-20] MEDS: METOPROLOL TARTRATE 25 MG TAB PO SCH (10:39)
[2020-09-20] MEDS: CEFDINIR 300 MG CAP PO SCH (10:40)
[2020-09-20] MEDS: FOLIC ACID-VIT B COMPLEX-VIT C 1 CAP PO SCH (10:40)
[2020-09-20] MEDS: HYDROPHILIC CREAM 180 GM TUBE TOPICAL SCH (10:40)
--- NOTE | 2020-09-20 10:56 | P.PN ---
Subjective Patient is seen in follow-up for end-stage renal disease. She is maintained on hemodialysis on Saturday schedule. No problems with dialysis yesterday. Denies chest pain or shortness of breath. Currently on nasal cannula. Hemoglobin 7.1 today. No active bleeding. Blood transfusion not given due to antibodies and blood product not available yet. Vital signs are stable. General: The patient appeared well nourished and normally developed. HEENT: Head exam is unremarkable. On nasal cannula. LUNGS: Breath sounds decreased. HEART: Rate and Rhythm are regular. ABDOMEN: Soft, nontender. Obese. EXTREMITITES: Trace edema. Objective - Vital Signs Vital signs: Vital Signs Temp 98.5 F 09/20/20 02:59 Pulse 81 09/20/20 02:59 Resp 18 09/20/20 02:59 BP 124/60 09/20/20 02:59 Pulse Ox 100 09/20/20 02:59 Intake & Output 09/19/20 09/20/20 09/20/20 18:59 06:59 18:59 Intake Total 1078 660 Output Total 4050 Balance 1078 -3390 Weight 110 kg Intake: Oral 1078 360 Hemodialysis 300 Output: Urine 750 Hemodialysis 3300 Other: Voiding Method Bedside Commode Bedside Commode - Labs CBC & Chem 7: 09/20/20 09:59 09/20/20 09:59 Labs: Abnormal Lab Results - Last 24 Hours (Table) 09/19/20 09/19/20 09/19/20 Range/Units 11:55 12:47 14:54 RBC (3.80-5.40) m/uL Hgb (11.4-16.0) gm/dL Hct (34.0-46.0) % MCV (80.0-100.0) fL RDW (11.5-15.5) % Sodium (137-145) mmol/L BUN (7-17) mg/dL Creatinine (0.52-1.04) mg/dL Glucose (74-99) mg/dL POC Glucose (mg/dL) 144 H (75-99) mg/dL Calcium (8.4-10.2) mg/dL Crossmatch See Detail See Detail 09/19/20 09/19/20 09/20/20 Range/Units 16:47 20:46 06:33 RBC (3.80-5.40) m/uL Hgb (11.4-16.0) gm/dL Hct (34.0-46.0) % MCV (80.0-100.0) fL RDW (11.5-15.5) % Sodium (137-145) mmol/L BUN (7-17) mg/dL Creatinine (0.52-1.04) mg/dL Glucose (74-99) mg/dL POC Glucose (mg/dL) 202 H 251 H 153 H (75-99) mg/dL Calcium (8.4-10.2) mg/dL Crossmatch 09/20/20 09/20/20 Range/Units 09:59 09:59 RBC 2.20 L (3.80-5.40) m/uL Hgb 7.1 L (11.4-16.0) gm/dL Hct 22.4 L (34.0-46.0) % MCV 101.8 H (80.0-100.0) fL RDW 16.4 H (11.5-15.5) % Sodium 135 L (137-145) mmol/L BUN 43 H (7-17) mg/dL Creatinine 2.81 H (0.52-1.04) mg/dL Glucose 109 H (74-99) mg/dL POC Glucose (mg/dL) (75-99) mg/dL Calcium 7.6 L (8.4-10.2) mg/dL Crossmatch Microbiology - Last 24 Hours (Table) 09/17/20 00:02 Blood Culture - Preliminary Blood No Growth after 72 hours 09/16/20 22:54 Blood Culture - Preliminary Blood No Growth after 72 hours Assessment and Plan Plan: Assessment: 1. End-stage renal disease maintained on hemodialysis on Saturday schedule. 2. Acute on chronic systolic CHF with ejection fraction of 30-35%. 3. Volume overload. Improved with ultrafiltration. 4. Chronic kidney disease mineral bone disease maintained on PhosLo. 5. Anemia of chronic kidney disease maintained on Aranesp. 6. Obesity. 7. Recent pneumonia requiring intubation. 8. Hyperkalemia secondary to chronic kidney disease. Improved postdialysis. Plan: Hemodialysis tomorrow. Await blood transfusion.
--- NOTE | 2020-09-20 11:38 | P.PN ---
Subjective Progress Note Date: 09/20/20 Principal diagnosis: Melanoma, rectal bleeding Summary pleasant 65-year-old female who presented to the hospital for shortness of breath and COPD exacerbation. Was noted to have one episode of bright red blood per rectum while in the hospital, states that she thought she was st raining and had some constipation. She's had no further bleeding but denies any abdominal pain, nausea, or vomiting. She is status post 1 unit of PRBC transfusion this admission. Hemoglobin is stable today at 7.1. No acute changes through the night. The patient was seen and examined lying in bed. She states she's had no further bleeding from the rectum or blood in her stool. She denies any abdominal pain, nausea, or vomiting. His hemoglobin was 7.0, 1 unit PRBC transfusion has been ordered. Objective - Vital Signs Vital signs: Vital Signs Temp 98.5 F 09/20/20 02:59 Pulse 81 09/20/20 02:59 Resp 18 09/20/20 02:59 BP 124/60 09/20/20 02:59 Pulse Ox 100 09/20/20 02:59 Intake & Output 09/19/20 09/20/20 09/20/20 18:59 06:59 18:59 Intake Total 1078 660 Output Total 4050 Balance 1078 -3390 Weight 110 kg Intake: Oral 1078 360 Hemodialysis 300 Output: Urine 750 Hemodialysis 3300 Other: Voiding Method Bedside Commode Bedside Commode - Exam General appearance: The patient is alert, oriented, appears in no acute distress. HET: Head is normocephalic and atraumatic. Conjunctiva pink. Sclera anicteric. Neck: Supple without lymphadenopathy. Abdomen: Soft, nontender, nondistended with bowel sounds. No guarding or rigidity. Extremities: Normal skin color and turgor. No pedal edema Skin: No rashes, no jaundice Neurological: No focal deficits. Alert and oriented 3. - Labs CBC & Chem 7: 09/20/20 09:59 09/20/20 09:59 Labs: Abnormal Lab Results - Last 24 Hours (Table) 09/19/20 09/19/20 09/19/20 Range/Units 08:30 08:30 11:55 RBC 2.10 L (3.80-5.40) m/uL Hgb 7.0 L (11.4-16.0) gm/dL Hct 21.1 L (34.0-46.0) % MCV 100.4 H (80.0-100.0) fL RDW 16.7 H (11.5-15.5) % Sodium 132 L (137-145) mmol/L BUN 71 H (7-17) mg/dL Creatinine 3.96 H (0.52-1.04) mg/dL Glucose 133 H (74-99) mg/dL POC Glucose (mg/dL) 144 H (75-99) mg/dL Calcium 7.3 L (8.4-10.2) mg/dL Crossmatch 09/19/20 09/19/20 09/19/20 Range/Units 12:47 14:54 16:47 RBC (3.80-5.40) m/uL Hgb (11.4-16.0) gm/dL Hct (34.0-46.0) % MCV (80.0-100.0) fL RDW (11.5-15.5) % Sodium (137-145) mmol/L BUN (7-17) mg/dL Creatinine (0.52-1.04) mg/dL Glucose (74-99) mg/dL POC Glucose (mg/dL) 202 H (75-99) mg/dL Calcium (8.4-10.2) mg/dL Crossmatch See Detail See Detail 09/19/20 09/20/20 Range/Units 20:46 06:33 RBC (3.80-5.40) m/uL Hgb (11.4-16.0) gm/dL Hct (34.0-46.0) % MCV (80.0-100.0) fL RDW (11.5-15.5) % Sodium (137-145) mmol/L BUN (7-17) mg/dL Creatinine (0.52-1.04) mg/dL Glucose (74-99) mg/dL POC Glucose (mg/dL) 251 H 153 H (75-99) mg/dL Calcium (8.4-10.2) mg/dL Crossmatch Microbiology - Last 24 Hours (Table) 09/17/20 00:02 Blood Culture - Preliminary Blood No Growth after 72 hours 09/16/20 22:54 Blood Culture - Preliminary Blood No Growth after 72 hours Assessment and Plan (1) Rectal bleeding Narrative/Plan: This is a pleasant 65-year-old female who had rectal bleeding 12 days ago. She states she's had moderate amount of bright red blood in the stool following a bill wel movement while here in the hospital however she's had none since. She can she was slightly constipated had strained it some stool following which she had the episode of bleeding. She's been hemodynamically stable. She did drop her hemoglobin from 7.827 and is status post 1 unit of PRBC transfusion. Most likely dealing with a colonic pathology possibly internal hemorrhoids. Her last colonoscopy was approximately 10 years ago and according to the patient was within normal limits. Current Visit: Yes Status: Acute Code(s): K62.5 - HEMORRHAGE OF ANUS AND RECTUM SNOMED Code(s): 85108357 (2) COPD (chronic obstructive pulmonary disease) Current Visit: Yes Status: Acute Code(s): J44.9 - CHRONIC OBSTRUCTIVE PULMONARY DISEASE, UNSPECIFIED SNOMED Code(s): 20564622 (3) ESRD (end stage renal disease) Narrative/Plan: On Hemodialysis Current Visit: Yes Status: Acute Code(s): N18.6 - END STAGE RENAL DISEASE SNOMED Code(s): 45381534 Plan: 1. Continue symptomatic and supportive care 2. Repeat CBC, transfuse for hemoglobin less than 7 3. Discussion was had with the patient that if rectal bleeding continued would recommend proceeding with colonoscopy during this hospitalization. At this time she does not want to proceed with a colonoscopy, which is reasonably she has not had any further episode of rectal bleeding. Discussed with patient to follow-up with gastroenterology for possible outpatient colonoscopy in the near future. Thank you for this consultation, we will continue to follow next Dr. Pelon Kwok I agree with the dictator's note, documented as a scribe by Lori Navas.
[2020-09-20 12:36] VITALS: BP 138/62; TEMP 97.4
== END 2020-09-20 12:11 | DRG 291 ==
LOC: EC 22:17 → 3SCARD 22:39
PROVIDERS: ADMIT Family Medicine; ATTEND Family Medicine
PROC: 5A09357 Assistance with Respiratory Ventilation, Less than 24 Consecutive Hours, Continuous Positive Airway Pressure (ICD-10-PCS; principal; 2020-09-17)
PROC: 5A0935A Assistance with Respiratory Ventilation, Less than 24 Consecutive Hours, High Flow/Velocity Cannula (ICD-10-PCS; principal; 2020-09-17)
PROC: 5A1D70Z Performance of Urinary Filtration, Intermittent, Less than 6 Hours Per Day (ICD-10-PCS; 2020-09-17)
DX: I13.2 Hypertensive heart and chronic kidney disease with heart failure and with stage 5 chronic kidney disease, or end stage renal disease (principal); I50.23 Acute on chronic systolic (congestive) heart failure; J96.21 Acute and chronic respiratory failure with hypoxia; N18.6 End stage renal disease; J44.1 Chronic obstructive pulmonary disease with (acute) exacerbation; Z68.42 Body mass index [BMI] 45.0-49.9, adult; E87.1 Hypo-osmolality and hyponatremia; G47.33 Obstructive sleep apnea (adult) (pediatric); I25.10 Atherosclerotic heart disease of native coronary artery without angina pectoris; I42.9 Cardiomyopathy, unspecified; G40.909 Epilepsy, unspecified, not intractable, without status epilepticus; Z87.01 Personal history of pneumonia (recurrent); K21.9 Gastro-esophageal reflux disease without esophagitis; K58.1 Irritable bowel syndrome with constipation; K64.9 Unspecified hemorrhoids; D63.1 Anemia in chronic kidney disease; E11.22 Type 2 diabetes mellitus with diabetic chronic kidney disease; E11.40 Type 2 diabetes mellitus with diabetic neuropathy, unspecified; E66.01 Morbid (severe) obesity due to excess calories; E78.00 Pure hypercholesterolemia, unspecified; Z20.822 Contact with and (suspected) exposure to COVID-19; E78.5 Hyperlipidemia, unspecified; E87.5 Hyperkalemia; F32.9 Major depressive disorder, single episode, unspecified; F41.9 Anxiety disorder, unspecified; K76.0 Fatty (change of) liver, not elsewhere classified; K74.60 Unspecified cirrhosis of liver; E83.9 Disorder of mineral metabolism, unspecified; N20.0 Calculus of kidney; Z79.52 Long term (current) use of systemic steroids; Z79.82 Long term (current) use of aspirin; Z79.899 Other long term (current) drug therapy; Z82.49 Family history of ischemic heart disease and other diseases of the circulatory system; Z83.3 Family history of diabetes mellitus; Z87.442 Personal history of urinary calculi; Z87.891 Personal history of nicotine dependence; Z90.710 Acquired absence of both cervix and uterus; Z91.15 Patient's noncompliance with renal dialysis; Z91.19 Patient's noncompliance with other medical treatment and regimen; Z99.2 Dependence on renal dialysis; Z99.81 Dependence on supplemental oxygen; M15.9 Polyosteoarthritis, unspecified; G89.29 Other chronic pain; M54.9 Dorsalgia, unspecified; Z99.89 Dependence on other enabling machines and devices
CPT/HCPCS: 71045; 71046; 80048; 83540; 83550; 84443; 85025; 85027; 85610; 86850; 86870; 86880; 86900; 86901; 86902; 86920; 87040; 90935; 94640; 94660; 94760; 99285

== ENCOUNTER 2020-09-21 22:28 | Observation (INO) | payer MEDICARE, OTHER ==
--- NOTE | 2020-09-21 22:37 | ED ---
Chest Pain HPI - General Chief Complaint: Chest Pain Stated Complaint: Chest Pain Time Seen by Provider: 09/21/20 22:36 Source: patient, EMS, RN notes reviewed, old records reviewed Mode of arrival: EMS Limitations: no limitations - History of Present Illness Initial Comments: This is a 65-year-old female DF for evaluation patient Dese for evaluation re gards to multiple complaints including chest pain shortness of breath. Patient coming in for evaluation of the above. Multiple recent hospital admissions. Patient states she does not feel well she is persistently nauseous and weak. MD Complaint: chest pain -: hour(s) Onset: during rest Pain Location: substernal Pain Radiation: none Severity: moderate Severity scale (1-10): 8 Quality: tightness, heaviness Consistency: constant Improves With: nothing Worsens With: nothing Context: recent illness Anginal Symptoms: dyspnea Other Symptoms: palpitations Treatments Prior to Arrival: none - Related Data Home Medications Medication Instructions Recorded Confirmed Phenytoin Sodium Extended 100 mg PO Q8H 11/29/15 09/16/20 [Dilantin] Folic Acid 1 mg PO DAILY 07/22/17 09/16/20 Primidone [Mysoline] 100 mg PO HS 07/20/18 09/16/20 Calcium Acetate 2,001 mg PO TID-W/MEALS 09/06/20 09/16/20 Calcium Acetate [PhosLo] 667 mg PO HS 09/06/20 09/16/20 Fluticasone/Vilanterol [Breo 1 puff INHALATION RT-DAILY 09/06/20 09/16/20 Ellipta 100-25 Mcg Inhaler] Folic Acid-Vit B Complex-Vit C 1 cap PO DAILY 09/06/20 09/16/20 [Nephrocaps] Lidocaine-Prilocaine Cream [Emla 1 applic TOPICAL MOWEFR 09/06/20 09/16/20 Cream 2.5%/2.5%] Ondansetron [Zofran] 4 mg PO Q6H PRN 09/06/20 09/16/20 Simvastatin [Zocor] 10 mg PO HS 09/06/20 09/16/20 traZODone HCL 150 mg PO HS 09/06/20 09/16/20 Albuterol Inhaler [Ventolin Hfa 2 puff INHALATION RT-QID PRN 09/16/20 09/16/20 Inhaler] Diff-Stat Probiotic 2 cap PO BID 09/16/20 09/16/20 Omeprazole 20 mg PO DAILY 09/16/20 09/16/20 Previous Rx's Medication Instructions Recorded Montelukast [Singulair] 10 mg PO HS #30 tab 12/26/17 Acetaminophen Tab [Tylenol] 650 mg PO Q6HR PRN tab 09/12/20 Aspirin 81 mg PO DAILY chew 09/12/20 Furosemide [Lasix] 80 mg PO Q12HR #1 tablet 09/12/20 Metoprolol Tartrate [Lopressor] 25 mg PO BID tab 09/12/20 hydrALAZINE HCL [Apresoline] 25 mg PO BID tab 09/12/20 ALPRAZolam [Xanax] 1 mg PO BID PRN #6 tab 09/20/20 Cefdinir 300 mg PO DAILY #5 cap 09/20/20 Darbepoetin Scott [Aranesp] 60 mcg SQ Q7D syringe 09/20/20 traMADol HCl [Ultram] 50 mg PO Q6H PRN #12 tab 09/20/20 Allergies Allergy/AdvReac Type Severity Reaction Status Date / Time Penicillins Allergy Mild Swelling Verified 09/21/20 22:33 Review of Systems ROS Statement: Those systems with pertinent positive or pertinent negative responses have been documented in the HPI. ROS Other: All systems not noted in ROS Statement are negative. EKG Findings - EKG Comments: EKG Findings:: EKG shows sinus rhythm 91 MD 172 QRS 130 QTC 484 Past Medical History Past Medical History: COPD, Diabetes Mellitus, GERD/Reflux, Hyperlipidemia, Hypertension, Osteoarthritis (OA), Pneumonia, Respiratory Disorder, Seizure Disorder, Vascular Disorder Additional Past Medical History / Comment(s): hepatic encephalopathy/chronic liver disease probably d/t fatty liver advancing to chronic liver disease with possible cirrhosis/acute on chronic renal failure/acute on chronic COPD, AMS d/t elevated ammonia levels/metabolic acidosis/ electrolyte disturbances. Other hx: High ammonia levels, chronic liver disease, kidney stones, CKD stage IV, chronic respiratory failure with home O2 at 4L/NC, NIDDM type II, neuropathy bilateral feet, IBS, arthritis in multiple joints, chronic back pain, current problems with weakness, generalized edema. History of Any Multi-Drug Resistant Organisms: None Reported Past Surgical History: Ear Surgery, Hysterectomy, Orthopedic Surgery Additional Past Surgical History / Comment(s): Multiple surgeries/ESWL for kidney stones, bilateral caratid endartectomies, L ankle surgery with metal esteban/pin, R ear surgery for deteriorating eardrum, sinus surgery, colonoscopy. Past Anesthesia/Blood Transfusion Reactions: No Reported Reaction Past Psychological History: Anxiety, Depression Smoking Status: Former smoker Past Alcohol Use History: None Reported Past Drug Use History: Marijuana - Past Family History Mother Family Medical History: Diabetes Mellitus, Hypertension Father Family Medical History: Hypertension General Exam Limitations: no limitations General appearance: alert, in no apparent distress Head exam: Present: atraumatic, normocephalic, normal inspection Eye exam: Present: normal appearance, PERRL, EOMI. Absent: scleral icterus, conjunctival injection, periorbital swelling ENT exam: Present: normal exam, mucous membranes moist Neck exam: Present: normal inspection. Absent: tenderness, meningismus, lymphadenopathy Respiratory exam: Present: normal lung sounds bilaterally. Absent: respiratory distress, wheezes, rales, rhonchi, stridor Cardiovascular Exam: Present: regular rate, normal rhythm, normal heart sounds. Absent: systolic murmur, diastolic murmur, rubs, gallop, clicks GI/Abdominal exam: Present: soft, normal bowel sounds. Absent: distended, tenderness, guarding, rebound, rigid Extremities exam: Present: normal inspection, full ROM, normal capillary refill. Absent: tenderness, pedal edema, joint swelling, calf tenderness Back exam: Present: normal inspection Neurological exam: Present: alert, oriented X3, CN II-XII intact Psychiatric exam: Present: normal affect, normal mood Skin exam: Present: warm, dry, intact, normal color. Absent: rash Course Vital Signs 09/21/20 09/21/20 09/22/20 22:30 23:40 00:00 Temperature 98.5 F Pulse Rate 92 90 91 Respiratory 16 16 16 Rate Blood Pressure 131/58 130/61 130/61 O2 Sat by Pulse 100 100 100 Oximetry 09/22/20 09/22/20 09/22/20 00:10 00:54 01:00 Temperature Pulse Rate 92 93 93 Respiratory 16 Rate Blood Pressure 116/55 116/55 O2 Sat by Pulse 100 100 Oximetry 09/22/20 01:05 Temperature Pulse Rate 96 Respiratory Rate Blood Pressure O2 Sat by Pulse Oximetry - Reevaluation(s) Reevaluation #1: Medical record is reviewed Symptoms improved here in the ER Patient informed of results and questions answered Patient has persistent chest pain here in the ER Initial troponin did elevate from the shoulder second - Consultations Consultation #1: Spoke with Dr. Frank jurado for admission Chest Pain MDM - MDM 65 female DF for evaluation. Multiple recent hospital admissions. Patient coming in for chest pain with elevated troponin. Patient be admitted for cardiac observation Disposition Clinical Impression: COPD (chronic obstructive pulmonary disease), Congestive heart failure (CHF), Weakness, Anemia, Renal failure, ESRD (end stage renal disease) Disposition: ADMITTED IP TO THIS HOSP Condition: Fair Is patient prescribed a controlled substance at d/c from ED?: No
[2020-09-21] MEDS ORDERED: SODIUM CHLORIDE 0.9% 1,000 ML IV STA (22:52)
[2020-09-21 23:26] LABS: Anisocytosis Slight; Basophils % (A) 0 %; Eosinophils # (A) 0.2 k/uL (0-0.7); Eosinophils % (A) 3 %; HCT 23.7 % (34.0-46.0); HGB 7.4 gm/dL (11.4-16.0); Hypochromasia Moderate; Lymphocytes # (A) 0.9 k/uL (1.0-4.8); Lymphocytes % (A) 14 %; MCH 31.7 pg (25.0-35.0); MCHC 31.1 g/dL (31.0-37.0); MCV 102.1 fL (80.0-100.0); Macrocytosis Moderate; Mean Platelet Volume 6.7; Monocytes # (A) 0.4 k/uL (0-1.0); Monocytes % (A) 6 %; Neutrophils # (A) 4.7 k/uL (1.3-7.7); Neutrophils % (A) 76 %; Platelet Count 240 k/uL (150-450); RBC 2.32 m/uL (3.80-5.40); WBC 6.1 k/uL (3.8-10.6)
--- NOTE | 2020-09-21 23:29 | XR ---
EXAMINATION TYPE: XR chest 2V DATE OF EXAM: 09/21/2020 COMPARISON: 09/19/2020 HISTORY: Short of breath TECHNIQUE: FINDINGS: There is poor inspiration. There is patchy bilateral pulmonary interstitial infiltrates and atelectasis. There is right central venous catheter with tip in the right atrium. There are chest le ads. IMPRESSION: Extensive pulmonary interstitial infiltrates not significantly different than recent exam . Basilar bilateral atelectasis.
[2020-09-21 23:53] LABS: INR 0.9 (<1.2); Prothrombin Time 10.1 sec (9.0-12.0)
[2020-09-21 23:54] LABS: Albumin 3.1 g/dL (3.5-5.0); Total Bilirubin 0.4 mg/dL (0.2-1.3); Total Protein 5.8 g/dL (6.3-8.2)
[2020-09-21 23:56] LABS: D-Dimer 4.82 mg/L FEU (<0.60); Partial Thromboplastin Time 20.3 sec (22.0-30.0)
[2020-09-22] MEDS ORDERED: ALPRAZolam 1 MG TAB PO STA (00:06)
[2020-09-22 00:13] LABS: Magnesium 1.7 mg/dL (1.6-2.3); Phosphorus 2.4 mg/dL (2.5-4.5); Potassium 4.6 mmol/L (3.5-5.1)
[2020-09-22] MEDS ORDERED: NALOXONE 0.4 MG/ML 1 ML VIAL IV PRN (00:23)
[2020-09-22] MEDS ORDERED: IBUPROFEN 400 MG TAB PO PRN (00:23)
[2020-09-22] MEDS ORDERED: IPRATROPIUM-ALBUTEROL 3 ML NEB INHALATION STA (00:23)
[2020-09-22] MEDS ORDERED: MORPHINE SULFATE 4 MG/ML SYRINGE IV PRN (00:23)
[2020-09-22 00:29] LABS: C Reactive Protein 1.1 mg/dL (<1.0)
[2020-09-22] MEDS ORDERED: diphenhydrAMINE 50 MG/ML 1 ML VIAL IVP STA (00:36)
[2020-09-22] MEDS ORDERED: methylPREDNISolone SOD SUCCI 125 MG/2 ML VIAL IV SCH (06:00)
[2020-09-22] MEDS ORDERED: ONDANSETRON 4 MG/2 ML VIAL IVP STA (06:10)
[2020-09-22] MEDS ORDERED: ONDANSETRON 4 MG/2 ML VIAL IVP PRN (06:10)
[2020-09-22] MEDS ORDERED: IPRATROPIUM-ALBUTEROL 3 ML NEB INHALATION SCH (08:00)
[2020-09-22] MEDS ORDERED: FUROSEMIDE 10 MG/ML 4 ML VIAL IV STA (08:13)
--- NOTE | 2020-09-22 08:41 | P.HPIM ---
History of Present Illness H&P Date: 09/22/20 Chief Complaint: Chest pain 65-year-old female patient who has been living in [facility], presents to the emergency room with multiple complaints including chest pain and shortness of breath. She's had multiple recent hospital admissions and continues to feel nauseous and weak. She was recently discharged from the hospital on 09/20/2020 for dyspnea and shortness of breath as she had missed her dialysis appointment on Saturday causing her to become fluid overloaded. Her past medical history includes COPD, diabetes myelitis, GERD\reflux, hyperlipidemia, hypertension, osteoarthritis, pneumonia, respiratory disorder, seizure disorder, vascular disorder, she's had hepatic encephalopathy\chronic liver disease probably due to fatty liver chronic renal failure, high ammonia levels, chronic liver disease, kidney stones, stage IV kidney disease, chronic respiratory failure with home O2 at 4 L nasal cannula, IBS, chronic back pain, arthritis of multiple joints, and weakness, anxiety and depression and she is a former smoker. Initial EKG normal sinus rhythm with left bundle branch block. Initial set of lab work CBC resulted a white blood count of 6.1, hemoglobin 7.4, hematocrit 23.7, platelet count 240 lymphocytes 0.9. Coagulation studies PT of 10.1, INR of 0.9, APTT 20.3, and a d-dimer of 4.8. Chemistry reveals sodium 1:30, potassium 4.6, GAYE of 30, creatinine 2.04, glucose 176, pulse of 2.4, calcium 8.0, LDH of 770, C-reactive protein 1.1, B and P of 9630, and initial troponin was 0.031 with the second being 0.042. ER chest x-ray impression extensive pulmonary interstitial infiltrates not significantly different than recent exam basilar bilateral atelectasis. Most recent set of vitals blood pressure 160/55, 2 L nasal cannula maintaining oxygen saturation are 100% with pulse rate of 93, and temperature 98.5. Currently patient denies fever, nausea vomiting, diarrhea, visual changes, headache, loss of sense taste or smell. Her only complaint at this time is right sided chest pain and shortness of breath due to the pain. Review of Systems Ears, nose, mouth and throat: Reports as per HPI Cardiovascular: Reports chest pain, Reports shortness of breath Respiratory: Reports dyspnea, Reports pain on inspiration Gastrointestinal: Reports as per HPI Genitourinary: Reports as per HPI Menstruation: Reports as per HPI Musculoskeletal: Reports as per HPI Integumentary: Reports as per HPI Neurological: Reports as per HPI Psychiatric: Reports as per HPI Endocrine: Reports as per HPI Hematologic/Lymphatic: Reports as per HPI Allergic/Immunologic: Reports as per HPI Past Medical History Past Medical History: COPD, Diabetes Mellitus, GERD/Reflux, Hyperlipidemia, Hypertension, Osteoarthritis (OA), Pneumonia, Respiratory Disorder, Seizure Disorder, Vascular Disorder Additional Past Medical History / Comment(s): hepatic encephalopathy/chronic liver disease probably d/t fatty liver advancing to chronic liver disease with possible cirrhosis/acute on chronic renal failure/acute on chronic COPD, AMS d/t elevated ammonia levels/metabolic acidosis/ electrolyte disturbances. Other hx: High ammonia levels, chronic liver disease, kidney stones, CKD stage IV, chronic respiratory failure with home O2 at 4L/NC, NIDDM type II, neuropathy bilateral feet, IBS, arthritis in multiple joints, chronic back pain, current problems with weakness, generalized edema. History of Any Multi-Drug Resistant Organisms: None Reported Past Surgical History: Ear Surgery, Hysterectomy, Orthopedic Surgery Additional Past Surgical History / Comment(s): Multiple surgeries/ESWL for kidney stones, bilateral caratid endartectomies, L ankle surgery with metal esteban/pin, R ear surgery for deteriorating eardrum, sinus surgery, colonoscopy. Past Anesthesia/Blood Transfusion Reactions: No Reported Reaction Past Psychological History: Anxiety, Depression Smoking Status: Former smoker Past Alcohol Use History: None Reported Past Drug Use History: Marijuana - Past Family History Mother Family Medical History: Diabetes Mellitus, Hypertension Father Family Medical History: Hypertension Medications and Allergies Home Medications Medication Instructions Recorded Confirmed Type Phenytoin Sodium Extended 100 mg PO TID@0600,1400,2200 11/29/15 09/22/20 History [Dilantin] Folic Acid 1 mg PO DAILY@0800 07/22/17 09/22/20 History Primidone [Mysoline] 100 mg PO HS@199907/20/18 09/22/20 History Calcium Acetate 2,001 mg PO TID-W/MEALS 09/06/20 09/22/20 History Calcium Acetate [PhosLo] 667 mg PO HS@199909/06/20 09/22/20 History Fluticasone/Vilanterol [Breo 1 puff INHALATION RT-DAILY@0800 09/06/20 09/22/20 History Ellipta 100-25 Mcg Inhaler] Folic Acid-Vit B Complex-Vit C 1 cap PO DAILY@0800 09/06/20 09/22/20 History [Nephrocaps] Lidocaine-Prilocaine Cream [Emla 1 applic TOPICAL MOWEFR 09/06/20 09/22/20 History Cream 2.5%/2.5%] Simvastatin [Zocor] 10 mg PO HS@199909/06/20 09/22/20 History traZODone HCL 150 mg PO HS@199909/06/20 09/22/20 History Acetaminophen Tab [Tylenol] 650 mg PO Q6HR PRN tab 09/12/20 09/22/20 Rx Albuterol Inhaler [Ventolin Hfa 2 puff INHALATION RT-Q6H 09/16/20 09/22/20 History Inhaler] Diff-Stat Probiotic 2 cap PO BID 09/16/20 09/22/20 History Omeprazole 20 mg PO DAILY@0800 09/16/20 09/22/20 History ALPRAZolam [Xanax] 1 mg PO Q12H PRN 09/22/20 09/22/20 History Aspirin 81 mg PO DAILY@0800 09/22/20 09/22/20 History Cefuroxime Axetil [Ceftin] 500 mg PO DAILY@0800 09/22/20 09/22/20 History Furosemide [Lasix] 80 mg PO BID@0800,199909/22/20 09/22/20 History Metoprolol Tartrate [Lopressor] 25 mg PO BID@0800,199909/22/20 09/22/20 History Montelukast [Singulair] 10 mg PO HS@199909/22/20 09/22/20 History hydrALAZINE HCL [Apresoline] 25 mg PO BID@0800,199909/22/20 09/22/20 History traMADol HCl [Ultram] 50 mg PO QID 09/22/20 09/22/20 History Allergies Allergy/AdvReac Type Severity Reaction Status Date / Time Penicillins Allergy Mild Swelling Verified 09/22/20 06:33 Physical Exam Vitals: Vital Signs Temp Pulse Resp BP Pulse Ox 09/22/20 01:05 96 09/22/20 01:00 93 116/55 100 09/22/20 00:54 93 09/22/20 00:10 92 16 116/55 100 09/22/20 00:00 91 16 130/61 100 09/21/20 23:40 90 16 130/61 100 09/21/20 22:30 98.5 F 92 16 131/58 100 Intake and Output 09/21/20 09/22/20 09/22/20 22:59 06:59 14:59 Other: Weight 108.862 kg GENERAL: 65-year-old obese female, in no acute distress. HEAD: Atraumatic, normocephalic. EYES: Pupils equal round and reactive to light, extraocular movements intact, sclera anicteric, conjunctiva are normal. ENT:nares patent, oropharynx clear without exudates. Moist mucous membranes. NECK: Normal range of motion, supple without lymphadenopathy or JVD, no thyromegaly LUNGS: Breath sounds clear to auscultation bilaterally and equal. No wheezes rales or rhonchi. HEART: Regular rate and rhythm without murmurs, rubs or gallops.S1S2 Normal ABDOMEN: Soft, nontender, normoactive bowel sounds. No guarding, no rebound. No masses appreciated. EXTREMITIES: Normal range of motion, no pitting or edema. No clubbing or cyanosis. NEUROLOGICAL: Cranial nerves II through XII grossly intact. Normal speech, no rmal gait. PSYCH: Normal mood, normal affect. SKIN: Warm, Dry, normal turgor, no rashes or lesions noted. Results CBC & Chem 7: 09/21/20 23:03 09/21/20 23:03 Labs: Abnormal Lab Results - Last 24 Hours (Table) 09/21/20 09/21/20 09/21/20 Range/Units 23:03 23:03 23:03 RBC 2.32 L (3.80-5.40) m/uL Hgb 7.4 L (11.4-16.0) gm/dL Hct 23.7 L (34.0-46.0) % MCV 102.1 H (80.0-100.0) fL RDW 17.0 H (11.5-15.5) % Lymphocytes # 0.9 L (1.0-4.8) k/uL APTT 20.3 L (22.0-30.0) sec D-Dimer 4.82 H (<0.60) mg/L FEU Sodium 130 L (137-145) mmol/L Chloride 95 L (98-107) mmol/L BUN 30 H (7-17) mg/dL Creatinine 2.04 H (0.52-1.04) mg/dL Glucose 176 H (74-99) mg/dL Calcium 8.0 L (8.4-10.2) mg/dL Phosphorus 2.4 L (2.5-4.5) mg/dL Lactate Dehydrogenase (313-618) U/L Troponin I (0.000-0.034) ng/mL C-Reactive Protein (<1.0) mg/dL Total Protein 5.8 L (6.3-8.2) g/dL Albumin 3.1 L (3.5-5.0) g/dL 09/21/20 09/22/20 Range/Units 23:03 03:35 RBC (3.80-5.40) m/uL Hgb (11.4-16.0) gm/dL Hct (34.0-46.0) % MCV (80.0-100.0) fL RDW (11.5-15.5) % Lymphocytes # (1.0-4.8) k/uL APTT (22.0-30.0) sec D-Dimer (<0.60) mg/L FEU Sodium (137-145) mmol/L Chloride (98-107) mmol/L BUN (7-17) mg/dL Creatinine (0.52-1.04) mg/dL Glucose (74-99) mg/dL Calcium (8.4-10.2) mg/dL Phosphorus (2.5-4.5) mg/dL Lactate Dehydrogenase 770 H (313-618) U/L Troponin I 0.042 H* (0.000-0.034) ng/mL C-Reactive Protein 1.1 H (<1.0) mg/dL Total Protein (6.3-8.2) g/dL Albumin (3.5-5.0) g/dL Thrombosis Risk Factor Assmnt - DVT/VTE Prophylaxis DVT/VTE Prophylaxis: Pharmacologic Prophylaxis ordered - Choose All That Apply Each Factor Represents 1 point: Hx of IBD, Obesity (BMI >25) Each Risk Factor Represents 2 Points: Age 61-74 years, Patient confined to bed Thrombosis Risk Factor Assessment Total Risk Factor Score: 6 Thrombosis Risk Factor Assessment Level: High Risk Assessment and Plan (1) Chest pain Current Visit: Yes Status: Acute Code(s): R07.9 - CHEST PAIN, UNSPECIFIED SNOMED Code(s): 02948433 (2) Shortness of breath Current Visit: Yes Status: Acute Code(s): R06.02 - SHORTNESS OF BREATH SNOMED Code(s): 607001229 (3) COPD (chronic obstructive pulmonary disease) Current Visit: Yes Status: Acute Code(s): J44.9 - CHRONIC OBSTRUCTIVE PULMONARY DISEASE, UNSPECIFIED SNOMED Code(s): 62822590 (4) Congestive heart failure (CHF) Current Visit: Yes Status: Acute Code(s): I50.9 - HEART FAILURE, UNSPECIFIED SNOMED Code(s): 90685652 (5) ESRD (end stage renal disease) Current Visit: Yes Status: Acute Code(s): N18.6 - END STAGE RENAL DISEASE SNOMED Code(s): 83192434 (6) Acute exacerbation of chronic obstructive airways disease Current Visit: No Status: Acute Code(s): J44.1 - CHRONIC OBSTRUCTIVE PULMONARY DISEASE W (ACUTE) EXACERBATION SNOMED Code(s): 070054899 (7) Acute on chronic renal failure Current Visit: No Status: Acute Code(s): N17.9 - ACUTE KIDNEY FAILURE, UN SPECIFIED; N18.9 - CHRONIC KIDNEY DISEASE, UNSPECIFIED SNOMED Code(s): 23 9151105 (8) Anemia in chronic kidney disease Current Visit: No Status: Acute Code(s): N18.9 - CHRONIC KIDNEY DISEASE, UNSPECIFIED; D63.1 - ANEMIA IN CHRONIC KIDNEY DISEASE SNOMED Code(s): 100964222 (9) Diabetes Current Visit: No Status: Acute Code(s): E11.9 - TYPE 2 DIABETES MELLITUS WITHOUT COMPLICATIONS SNOMED Code(s): 95580699 (10) Elevated troponin Current Visit: No Status: Acute Code(s): R74.8 - ABNORMAL LEVELS OF OTHER SERUM ENZYMES SNOMED Code(s): 424492746 (11) Noncompliance Current Visit: No Status: Acute Code(s): Z91.19 - PATIENT'S NONCOMPLIANCE W OTH MEDICAL TREATMENT AND REGIMEN SNOMED Code(s): 7985878 (12) Readmission after hospitalization within last 30 days Current Visit: No Status: Acute Code(s): LRP4779 - SNOMED Code(s): 035954973 (13) Seizure disorder Current Visit: No Status: Acute Code(s): G40.909 - EPILEPSY, UNSP, NOT INTRACTABLE, WITHOUT STATUS EPILEPTICUS SNOMED Code(s): 577670533 (14) Anemia of chronic disease Current Visit: Yes Status: Acute Code(s): D63.8 - ANEMIA IN OTHER CHRONIC DISEASES CLASSIFIED ELSEWHERE SNOMED Code(s): 096492230 Plan: 1. Await recommendations from cardiology and pulmonology 2. Consult nephrology for evaluation 3. We'll reorder routine labs if not already done 4. Chest x-ray tomorrow 6. Nothing by mouth until cardiac evaluation 7. We'll continue to follow closely Time with Patient: Greater than 30
[2020-09-22 10:09] LABS: Appearance,Urine Clear (Clear); Bilirubin,Urine Negative (Negative); Blood,Urine Trace (Negative); Color,Urine Light Yellow; Glucose,Urine (UA) Negative (Negative); Ketones,Urine Negative (Negative); Leukocyte Esterase,Urine Negative (Negative); Nitrite,Urine Negative (Negative); PH, Urine 6.5 (5.0-8.0); Protein,Urine 1+ (Negative); RBC,Urine 3 /hpf (0-5); Specific Gravity,Urine 1.006 (1.001-1.035); Squamous Epithelial Cell,Urine 2 /hpf (0-4); Urobilinogen,Urine <2.0 mg/dL (<2.0); WBC,Urine 1 /hpf (0-5)
[2020-09-22] MEDS: SYMBICORT 160-4.5 MCG INHALER INHALATION SCH ×2 (10:26→19:16)
--- NOTE | 2020-09-22 10:42 | P.CNPUL ---
History of Present Illness Consult date: 09/22/20 Requesting physician: Adal Mari Jr Reason for consult: dyspnea, COPD Chief complaint: Chest pain History of present illness: This a pleasant 65-year-old female patient with a known history of hypertension, morbid obesity, end-stage renal disease on hemodialysis, diabetes mellitus type 2, irritable bowel syndrome, seizure disorder, peripheral vascular occlusive disease, chronic liver disease with possible cirrhosis of the liver, cardiomyopathy with ejection fraction 30%. She also has chronic obstructive pulmonary disease and chronic hypoxic respiratory failure on home oxygen at 4 L/m per nasal cannula. She follows with Dr. Benjamin in our office for the same. She has recently had several admissions to the hospital for fluid volume overload and had been intubated on mechanical ventilator. She was just discharged from here again on 09/20/2020. She's been residing at [facility]. She was brought in to the emergency room again yesterday for complaints of shortness of breath, chest pain, nausea and weakness. Chest x-ray reveals extensive pulmonary interstitial infiltrates. Not significantly different from previous on 09/19/2020. Basilar atelectasis bilaterally. EKG reveals sinus rhythm with a left bundle branch block. White count 6.1. Hemoccult of 7.4. Ly mphocytes 0.9. D-dimer 4.82. Sodium 1:30. Potassium 4.6. Creatinine 2.04. LDH 770. C-reactive protein 1.1. Troponin 0.031, 0.042, 0.038. ProBNP 9630. Influenza screen negative. Coronavirus screen negative. She is seen today in consultation in the emergency department. She is currently sitting up in the stretcher. Awake and alert in no acute distress. Maintaining O2 saturations in the mid to upper 90s on 4 L/m per nasal cannula. She's afebrile. She's been initiated on IV Cipro Medrol, Symbicort, albuterol, Spiriva. Review of Systems REVIEW OF SYSTEMS: CONSTITUTIONAL: Generalized weakness. Denies any recent significant weight loss or weight gain. EYES: Denies change in vision. EARS, NOSE, MOUTH, THROAT: Denies headaches, denies sore throat. CARDIOVASCULAR: Positive for chest pain, palpitations no syncopal episodes. RESPIRATORY: Positive for shortness of breath, cough, congestion no hemoptysis. GASTROINTESTINAL: Denies change in appetite, denies abdominal pain GENITOURINARY: Denies hematuria, denies infections. MUSKULOSKELETAL: Denies pain, denies swelling. INTEGUMENTARY: Denies rash, denies eczema. NEUROLOGICAL: Denies recent memory loss, no recent seizure activity. PSYCHIATRIC: Denies anxiety, denies depression. HEMATOLOGIC/LYMPHATIC: Denies anemia, denies enlarged lymph nodes. Past Medical History Past Medical History: COPD, Diabetes Mellitus, GERD/Reflux, Hyperlipidemia, Hypertension, Osteoarthritis (OA), Pneumonia, Respiratory Disorder, Seizure Disorder, Vascular Disorder Additional Past Medical History / Comment(s): hepatic encephalopathy/chronic liver disease probably d/t fatty liver advancing to chronic liver disease with possible cirrhosis/acute on chronic renal failure/acute on chronic COPD, AMS d/t elevated ammonia levels/metabolic acidosis/ electrolyte disturbances. Other hx: High ammonia levels, chronic liver disease, kidney stones, CKD stage IV, chronic respiratory failure with home O2 at 4L/NC, NIDDM type II, neuropathy bilateral feet, IBS, arthritis in multiple joints, chronic back pain, current problems with weakness, generalized edema. History of Any Multi-Drug Resistant Organisms: None Reported Past Surgical History: Ear Surgery, Hysterectomy, Orthopedic Surgery Additional Past Surgical History / Comment(s): Multiple surgeries/ESWL for kidney stones, bilateral caratid endartectomies, L ankle surgery with metal esteban/pin, R ear surgery for deteriorating eardrum, sinus surgery, colonoscopy. Past Anesthesia/Blood Transfusion Reactions: No Reported Reaction Past Psychological History: Anxiety, Depression Smoking Status: Former smoker Past Alcohol Use History: None Reported Past Drug Use History: Marijuana - Past Family History Mother Family Medical History: Diabetes Mellitus, Hypertension Father Family Medical History: Hypertension Medications and Allergies Home Medications Medication Instructions Recorded Confirmed Type Phenytoin Sodium Extended 100 mg PO TID@0600,1400,2200 11/29/15 09/22/20 History [Dilantin] Folic Acid 1 mg PO DAILY@0800 07/22/17 09/22/20 History Primidone [Mysoline] 100 mg PO HS@199907/20/18 09/22/20 History Calcium Acetate 2,001 mg PO TID-W/MEALS 09/06/20 09/22/20 History Calcium Acetate [PhosLo] 667 mg PO HS@199909/06/20 09/22/20 History Fluticasone/Vilanterol [Breo 1 puff INHALATION RT-DAILY@0800 09/06/20 09/22/20 History Ellipta 100-25 Mcg Inhaler] Folic Acid-Vit B Complex-Vit C 1 cap PO DAILY@0800 09/06/20 09/22/20 History [Nephrocaps] Lidocaine-Prilocaine Cream [Emla 1 applic TOPICAL MOWEFR 09/06/20 09/22/20 History Cream 2.5%/2.5%] Simvastatin [Zocor] 10 mg PO HS@199909/06/20 09/22/20 History traZODone HCL 150 mg PO HS@199909/06/20 09/22/20 History Acetaminophen Tab [Tylenol] 650 mg PO Q6HR PRN tab 09/12/20 09/22/20 Rx Albuterol Inhaler [Ventolin Hfa 2 puff INHALATION RT-Q6H 09/16/20 09/22/20 History Inhaler] Diff-Stat Probiotic 2 cap PO BID 09/16/20 09/22/20 History Omeprazole 20 mg PO DAILY@0800 09/16/20 09/22/20 History ALPRAZolam [Xanax] 1 mg PO Q12H PRN 09/22/20 09/22/20 History Aspirin 81 mg PO DAILY@0809/22/20 09/22/20 History Cefuroxime Axetil [Ceftin] 500 mg PO DAILY@0800 09/22/20 09/22/20 History Furosemide [Lasix] 80 mg PO BID@08,199909/22/20 09/22/20 History Metoprolol Tartrate [Lopressor] 25 mg PO BID@0800,199909/22/20 09/22/20 History Montelukast [Singulair] 10 mg PO HS@199909/22/20 09/22/20 History hydrALAZINE HCL [Apresoline] 25 mg PO BID@08,199909/22/20 09/22/20 History traMADol HCl [Ultram] 50 mg PO QID 09/22/20 09/22/20 History Allergies Allergy/AdvReac Type Severity Reaction Status Date / Time Penicillins Allergy Mild Swelling Verified 09/22/20 06:33 Physical Exam Vitals: Vital Signs Temp Pulse Resp BP Pulse Ox 09/22/20 10:00 98 18 99 09/22/20 09:58 100 09/22/20 09:00 98.7 F 103 H 20 150/57 95 09/22/20 08:00 100 20 09/22/20 01:05 96 09/22/20 01:00 93 116/55 100 09/22/20 00:54 93 09/22/20 00:10 92 16 116/55 100 09/22/20 00:00 91 16 130/61 100 09/21/20 23:40 90 16 130/61 100 09/21/20 22:30 98.5 F 92 16 131/58 100 Intake and Output 09/21/20 09/22/20 09/22/20 22:59 06:59 14:59 Other: Weight 108.862 kg GENERAL EXAM: Alert, pleasant 65-year-old female patient, morbidly obese, on 4 L nasal cannula, fairly comfortable in no apparent distress. HEAD: Normocephalic. EYES: Normal reaction of pupils, equal size. NOSE: Clear with pink turbinates. THROAT: No erythema or exudates. NECK: No masses, no JVD. CHEST: No chest wall deformity. LUNGS: Equal air entry with crackles in the bilateral posterior bases CVS: S1 and S2 normal with no audible murmur, regular rhythm. ABDOMEN: No hepatosplenomegaly, normal bowel sounds, no guarding or rigidity. SPINE: No scoliosis or deformity SKIN: No rashes CENTRAL NERVOUS SYSTEM: No focal deficits, tone is normal in all 4 extremities. EXTREMITIES: There is 1-2+ peripheral edema. No clubbing, no cyanosis. Peripheral pulses are intact. Results - Laboratory Findings CBC and BMP: 09/21/20 23:03 09/21/20 23:03 PT/INR, D-dimer PT 10.1 sec (9.0-12.0) 09/21/20 23:03 INR 0.9 (<1.2) 09/21/20 23:03 D-Dimer 4.82 mg/L FEU (<0.60) H 09/21/20 23:03 Abnormal lab findings: Abnormal Labs 09/21/20 09/21/20 09/21/20 23:03 23:03 23:03 RBC 2.32 L Hgb 7.4 L Hct 23.7 L MCV 102.1 H RDW 17.0 H Lymphocytes # 0.9 L APTT 20.3 L D-Dimer 4.82 H Sodium 130 L Chloride 95 L BUN 30 H Creatinine 2.04 H Glucose 176 H Calcium 8.0 L Phosphorus 2.4 L Lactate Dehydrogenase Troponin I C-Reactive Protein Total Protein 5.8 L Albumin 3.1 L Urine Protein Urine Blood 09/21/20 09/22/20 09/22/20 23:03 03:35 07:57 RBC Hgb Hct MCV RDW Lymphocytes # APTT D-Dimer Sodium Chloride BUN Creatinine Glucose Calcium Phosphorus Lactate Dehydrogenase 770 H Troponin I 0.042 H* 0.038 H* C-Reactive Protein 1.1 H Total Protein Albumin Urine Protein Urine Blood 09/22/20 09:48 RBC Hgb Hct MCV RDW Lymphocytes # APTT D-Dimer Sodium Chloride BUN Creatinine Glucose Calcium Phosphorus Lactate Dehydrogenase Troponin I C-Reactive Protein Total Protein Albumin Urine Protein 1+ H Urine Blood Trace H - Diagnostic Findings Chest x-ray: image reviewed Assessment and Plan Assessment: 1 Acute on chronic hypoxemic respiratory failure secondary to fluid volume ov erload secondary to an acute exacerbation of systolic congestive heart failure 2 Chronic hypoxemic respiratory failure secondary to chronic obstructive pulmonary disease on home oxygen at 4 L 3 History of heavy chronic tobacco dependence, quit in 2015 4 Chronic stage IV kidney disease receiving hemodialysis on Saturday. 5 Recent admission requiring intubation mechanical ventilatory support secondary to bilateral pneumonia/sepsis 6 Troponin leak in a patient with a known history of cardiomyopathy with ejection fraction of 30-35% 9 Morbid obesity 8 Chronic liver disease 9 History of seizure disorder 10 Hypertension 11 Hyperlipidemia 12 Diabetes mellitus 13 Diabetic neuropathy 14 Irritable bowel syndrome 15 Anemia of chronic disease 16 jail resident 17 Poor overall functional performance based on the above-mentioned multiple comorbidities Plan: The patient was seen and evaluated by Dr. Vásquez Chest x-ray and labs reviewed Discontinue IV Solu-Medrol Continue Symbicort and albuterol Lasix 40 mg IVP 1 Follow-up chest x-ray in a.m. Venous Doppler of the lower extremities due to elevated d-dimer We will continue to follow and make further recommendations based on her clinical status I, the cosigning physician, performed a history & physical examination of the patient. Lungs sounds with crackles in the bilateral posterior bases. Maintaining good O2 saturations in the 90s on 4 L/m per nasal cannula. I discussed the assessment and plan of care with my nurse practitioner, Kirstie Anne. I attest to the above note as dictated by her. Time with Patient: Greater than 30
[2020-09-22] MEDS: TIOTROPIUM 2.5 MCG INHALER INHALATION SCH (12:28)
--- NOTE | 2020-09-22 13:30 | US ---
EXAMINATION TYPE: US venous doppler duplex LE DATE OF EXAM: 09/22/2020 12:37 PM COMPARISON: NONE CLINICAL HISTORY: Elevated d-dimer. no leg symptoms SIDE PERFORMED: Bilateral TECHNIQUE: The lower extremity deep venous system is examined utilizing real time linear array sonog pio with graded compression, doppler sonography and color-flow sonography. VESSELS IMAGED: Common Femoral Vein Deep Femoral Vein Greater Saphenous Vein * Femoral Vein Popliteal Vein Small Saphenous Vein * Proximal Calf Veins (* superficial vessels) Right Leg: Negative for DVT Left Leg: Negative for DVT IMPRESSION: Grayscale, color doppler, spectral doppler imaging performed of the deep veins of the lo wer extremities. There is normal flow, compressibility, vascular waveforms.
[2020-09-22] MEDS: ALBUTEROL HFA INHALER INHALATION SCH ×3 (13:57→19:16)
--- NOTE | 2020-09-22 14:41 | P.CRDCN ---
History of Present Illness History of present illness: HISTORY OF PRESENTING ILLNESS This is a pleasant 65-year-old female past medical history significant for hypertension, dyslipidemia, nicotine dependence, type 2 diabetes, cardiomyopathy, COPD, end stage renal disease on dialysis M, W, F. She used to follow in the office with Dr. Meza. We have been asked to see in consultation for elevated troponin. Patient recently admitted 09/16/20 with shortness of breath, diagnosed with COPD exacerbation and she missed her dialysis appointment which was thought to contribute to her shortness of breath. She required BiPAP at that time. She was also anemic and received 2 units of PRBCs. She did have an episode of rectal bleeding. GI evaluated the patient and proceeded with conservative management and outpatient colonoscopy. She was stabilized and discharged to [facility]. She has recently had severel admissions requiring intubation. Patient is seen and examined in the emergency department, appears short of breath. She states this been increasingly getting worse. She denies having chest pain or ever having chest pain prior to coming to emergency room. Also denies palpitations, lightheadedness, dizziness, syncope. Patient give IV Lasix 40mg x 1, nebulizer treatments and symbicort and spirvia DIAGNOSTICS Most recent echocardiogram 09/08/2020- EF 30-35%, with wall motion abnormalities, trace MR, trace TR. In 2019- patient's EF 45-50% Lexiscan Stress test in the office 09/2018- Inconclusive to diagnose ischemia. Revealed small sized fixed perfusion defect in the anterior eall suggestive of breast tissue artifact, Gated SPECT analysis reveals atypical setpal motion secondary to LBBB pattern. EKG reveals sinus rhythm, HR 91, left bundle branch block, prior EKG with similar findings Chest xray Extensive pulmonary interstitial infiltrates, not different from previous exam. Laboratory reviewed, troponin 0.03, 0.04. BNP 9630 d-dimer 4.82, WBC 6.1, hemoglobin 7.4, platelets 23, sodium 1:30, potassium 4.6, serum creatinine 2.04, calcium 8, phosphorus 2.4, magnesium 1.7 Current cardiac medications include hydralazine 25mg BID, simvastatin 10mg nightly, lopressor 25mg BID, Lasix 80mg BID, aspirin 81mg daily REVIEW OF SYSTEMS At the time of my exam: CONSTITUTIONAL: Denies fever or chills. CARDIOVASCULAR:+shortness of breath. Denies chest pain, orthopnea, PND or palpitations. RESPIRATORY: Denies cough. GASTROINTESTINAL: Denies abdominal pain, diarrhea, constipation, nausea or vomiting. MUSCULOSKELETAL: Denies myalgias. NEUROLOGIC: Denies numbness, tingling, headacbe or weakness. ENDOCRINE: Denies fatigue, weight change, polydipsia or polyurina. GENITOURINARY: Denies burning, hematuria or urgency with micturation. HEMATOLOGIC: Denies history of anemia or bleeding. PHYSICAL EXAMINATION Blood pressure 116/55 heart rate 93 afebrile and maintaining oxygen saturation on 100% on 2.5 L nasal cannula CONSTITUTIONAL: No apparent distress. HEENT: Head is normocephalic. Pupils are equal, round. Sclerae anicteric. Mucous membranes of the mouth are moist. No JVD. No carotid bruit. CHEST EXAMINATION: Lungs are essentially clear to auscultation. mild crackles in bases. No chest wall tenderness is noted on palpation or with deep breathing. HEART EXAMINATION: Tachycardic rate and rhythm. S1, S2 heard. No murmurs, gallops or rub. ABDOMEN: Soft, nontender. Positive bowel sounds. EXTREMITIES: 2+ peripheral pulses, trace lower extremity edema and no calf tenderness. NEUROLOGIC EXAMINATION: Patient is awake, alert and oriented x3. ASSESSMENT COPD exacerbation Elevated troponin, not likely acute coronary syndrome. EKG with no evidence of ischemia. probably secondary due pulmonary and end stage renal disease. Patient denies chest pain. Anemia of chronic disease End-stage renal disease on hemodialysis Chronic systolic heart failure with reduced ejection fraction Cardiomyopathy of unknown etiology or duration. Hypertension Dyslipidemia Type 2 Diabetes PLAN No need for repeat echocardiogram with recent echo on 09/08/20. Start Lasix 80mg PO BID Continue patient's hydralazine and beta ulises, and statin Patient not on BARRY/ARB due to renal function Pulmonology consulted, appreciate recs Nephrology consult, appreciate recs Once stabilized as an outpatient she will undergo further workup for her cardiomyopathy Further recommendations based on clinical course Nurse Practitioner note has been reviewed, I agree with a documented findings and plan of care. Patient was seen and examined. Past Medical History Past Medical History: COPD, Diabetes Mellitus, GERD/Reflux, Hyperlipidemia, Hypertension, Osteoarthritis (OA), Pneumonia, Respiratory Disorder, Seizure Disorder, Vascular Disorder Additional Past Medical History / Comment(s): hepatic encephalopathy/chronic liver disease probably d/t fatty liver advancing to chronic liver disease with possible cirrhosis/acute on chronic renal failure/acute on chronic COPD, AMS d/t elevated ammonia levels/metabolic acidosis/ electrolyte disturbances. Other hx: High ammonia levels, chronic liver disease, kidney stones, CKD stage IV, chronic respiratory failure with home O2 at 4L/NC, NIDDM type II, neuropathy bilateral feet, IBS, arthritis in multiple joints, chronic back pain, current problems with weakness, generalized edema. History of Any Multi-Drug Resistant Organisms: None Reported Past Surgical History: Ear Surgery, Hysterectomy, Orthopedic Surgery Additional Past Surgical History / Comment(s): Multiple surgeries/ESWL for kidney stones, bilateral caratid endartectomies, L ankle surgery with metal esteban/pin, R ear surgery for deteriorating eardrum, sinus surgery, colonoscopy. Past Anesthesia/Blood Transfusion Reactions: No Reported Reaction Past Psychological History: Anxiety, Depression Smoking Status: Former smoker Past Alcohol Use History: None Reported Past Drug Use History: Marijuana - Past Family History Mother Family Medical History: Diabetes Mellitus, Hypertension Father Family Medical History: Hypertension Medications and Allergies Home Medications Medication Instructions Recorded Confirmed Type Phenytoin Sodium Extended 100 mg PO TID@0600,1400,2200 11/29/15 09/22/20 History [Dilantin] Folic Acid 1 mg PO DAILY@79907/22/17 09/22/20 History Primidone [Mysoline] 100 mg PO HS@199907/20/18 09/22/20 History Calcium Acetate 2,001 mg PO TID-W/MEALS 09/06/20 09/22/20 History Calcium Acetate [PhosLo] 667 mg PO HS@199909/06/20 09/22/20 History Fluticasone/Vilanterol [Breo 1 puff INHALATION RT-DAILY@79909/06/20 09/22/20 History Ellipta 100-25 Mcg Inhaler] Folic Acid-Vit B Complex-Vit C 1 cap PO DAILY@79909/06/20 09/22/20 History [Nephrocaps] Lidocaine-Prilocaine Cream [Emla 1 applic TOPICAL MOWEFR 09/06/20 09/22/20 History Cream 2.5%/2.5%] Simvastatin [Zocor] 10 mg PO HS@199909/06/20 09/22/20 History traZODone HCL 150 mg PO HS@199909/06/20 09/22/20 History Acetaminophen Tab [Tylenol] 650 mg PO Q6HR PRN tab 09/12/20 09/22/20 Rx Albuterol Inhaler [Ventolin Hfa 2 puff INHALATION RT-Q6H 09/16/20 09/22/20 History Inhaler] Diff-Stat Probiotic 2 cap PO BID 09/16/20 09/22/20 History Omeprazole 20 mg PO DAILY@0800 09/16/20 09/22/20 History ALPRAZolam [Xanax] 1 mg PO Q12H PRN 09/22/20 09/22/20 History Aspirin 81 mg PO DAILY@0800 09/22/20 09/22/20 History Cefuroxime Axetil [Ceftin] 500 mg PO DAILY@0800 09/22/20 09/22/20 History Furosemide [Lasix] 80 mg PO BID@0800,199909/22/20 09/22/20 History Metoprolol Tartrate [Lopressor] 25 mg PO BID@0800,199909/22/20 09/22/20 History Montelukast [Singulair] 10 mg PO HS@199909/22/20 09/22/20 History hydrALAZINE HCL [Apresoline] 25 mg PO BID@0800,199909/22/20 09/22/20 History traMADol HCl [Ultram] 50 mg PO QID 09/22/20 09/22/20 History Allergies Allergy/AdvReac Type Severity Reaction Status Date / Time Penicillins Allergy Mild Swelling Verified 09/22/20 06:33 Physical Exam Vitals: Vital Signs Temp Pulse Resp BP Pulse Ox 09/22/20 01:05 96 09/22/20 01:00 93 116/55 100 09/22/20 00:54 93 09/22/20 00:10 92 16 116/55 100 09/22/20 00:00 91 16 130/61 100 09/21/20 23:40 90 16 130/61 100 09/21/20 22:30 98.5 F 92 16 131/58 100 Intake and Output 09/21/20 09/21/20 09/22/20 14:59 22:59 06:59 Other: Weight 108.862 kg Results 09/21/20 23:03 04/28/21 23:03 Cardiac Enzymes 09/21/20 09/21/20 09/21/20 Range/Units 23:03 23:03 23:03 AST 31 (14-36) U/L Lactate Dehydrogenase 770 H (313-618) U/L Troponin I 0.031 (0.000-0.034) ng/mL 09/22/20 Range/Units 03:35 AST (14-36) U/L Lactate Dehydrogenase (313-618) U/L Troponin I 0.042 H* (0.000-0.034) ng/mL Coagulation 09/21/20 Range/Units 23:03 PT 10.1 (9.0-12.0) sec APTT 20.3 L (22.0-30.0) sec CBC 09/21/20 Range/Units 23:03 WBC 6.1 (3.8-10.6) k/uL RBC 2.32 L (3.80-5.40) m/uL Hgb 7.4 L (11.4-16.0) gm/dL Hct 23.7 L (34.0-46.0) % Plt Count 240 (150-450) k/uL Comprehensive Metabolic Panel 09/21/20 Range/Units 23:03 Sodium 130 L (137-145) mmol/L Potassium 4.6 (3.5-5.1) mmol/L Chloride 95 L (98-107) mmol/L Carbon Dioxide 30 (22-30) mmol/L BUN 30 H (7-17) mg/dL Creatinine 2.04 H (0.52-1.04) mg/dL Glucose 176 H (74-99) mg/dL Calcium 8.0 L (8.4-10.2) mg/dL AST 31 (14-36) U/L ALT 17 (4-34) U/L Alkaline Phosphatase 97 (38-126) U/L Total Protein 5.8 L (6.3-8.2) g/dL Albumin 3.1 L (3.5-5.0) g/dL Current Medications Generic Name Dose Route Start Last Admin Trade Name Freq PRN Reason Stop Dose Admin Acetaminophen 650 mg 09/22/20 00:23 Acetaminophen Tab 325 Mg Tab PO Q6HR PRN Mild Pain or Fever > 100.5 Albuterol/Ipratropium 3 ml 09/22/20 08:00 Ipratropium-Albuterol 3 Ml Neb INHALATION RT-QID [facility] Ibuprofen 400 mg 09/22/20 00:23 Ibuprofen 400 Mg Tab PO Q6HR PRN Mild Pain or Fever > 100.5 Methylprednisolone Sodium Succinate 60 mg 09/22/20 06:00 Methylprednisolone Sod Succi 125 Mg/2 Ml Vial IV Q6HR [facility] Morphine Sulfate 4 mg 09/22/20 00:23 Morphine Sulfate 4 Mg/Ml Syringe IV Q4HR PRN Severe Pain Naloxone HCl 0.2 mg 09/22/20 00:23 Naloxone 0.4 Mg/Ml 1 Ml Vial IV Q2M PRN Opioid Reversal Ondansetron HCl 4 mg 09/22/20 06:10 Ondansetron 4 Mg/2 Ml Vial IVP Q6HR PRN Nausea And Vomiting Intake and Output 09/21/20 09/21/20 09/22/20 14:59 22:59 06:59 Other: Weight 108.862 kg Patient Weight 09/22/20 06:59 Weight 108.862 kg 09/21/20 23:03 09/21/20 23:03
[2020-09-22] MEDS ORDERED: ALPRAZolam 1 MG TAB PO PRN (16:07)
[2020-09-22] MEDS: CALCIUM ACETATE 667 MG TAB PO SCH ×2 (17:35→20:23)
[2020-09-22] MEDS ORDERED: BUDESONIDE 1 MG/2 ML NEBU INHALATION SCH (20:00)
[2020-09-22] MEDS ORDERED: FORMOTEROL FUMARATE 20 MCG/2 ML NEBU INHALATION SCH (20:00)
[2020-09-22] MEDS: ATORVASTATIN 10 MG TAB PO SCH (20:23)
[2020-09-22] MEDS: PRIMIDONE 50 MG TAB PO SCH (20:24)
[2020-09-22] MEDS: hydrALAZINE HCL 25 MG TAB PO SCH (20:24)
[2020-09-22] MEDS: METOPROLOL TARTRATE 25 MG TAB PO SCH (20:24)
[2020-09-22] MEDS: FUROSEMIDE 80 MG TAB PO SCH (20:24)
[2020-09-22] MEDS: LACTOBACILLUS ACIDOPH & BULGAR 1 EACH PACKET PO SCH (20:25)
[2020-09-22] MEDS: PHENYTOIN SODIUM EXTENDED 100 MG CAP PO SCH (20:25)
[2020-09-22] MEDS: traZODone HCL 50 MG TAB PO SCH (20:25)
[2020-09-23] MEDS: PHENYTOIN SODIUM EXTENDED 100 MG CAP PO SCH ×3 (05:26→22:31)
--- NOTE | 2020-09-23 07:40 | XR ---
EXAMINATION TYPE: XR chest 1V portable DATE OF EXAM: 09/23/2020 HISTORY: Shortness of breath. COMPARISON: 09/21/2020 TECHNIQUE: Single view of the chest is submitted. FINDINGS: Demonstrated are scattered senescent parenchymal change. Interstitial infiltrates persist unchanged. Central venous line stable. The heart is stable. Hilar and mediastinal structures are within normal limits. Degenerative changes are seen of the dorsal spine. IMPRESSION: 1. Stable chest.
[2020-09-23] MEDS: LACTOBACILLUS ACIDOPH & BULGAR 1 EACH PACKET PO SCH ×2 (07:56→20:40)
[2020-09-23] MEDS: ACETAMINOPHEN TAB 325 MG TAB PO PRN ×2 (07:57→14:11)
[2020-09-23] MEDS: FOLIC ACID-VIT B COMPLEX-VIT C 1 CAP PO SCH (07:58)
[2020-09-23] MEDS: ASPIRIN 81 MG PO SCH (07:58)
[2020-09-23] MEDS: FOLIC ACID 1 MG TAB PO SCH (07:58)
[2020-09-23] MEDS: FUROSEMIDE 80 MG TAB PO SCH ×2 (07:58→20:39)
[2020-09-23] MEDS: CALCIUM ACETATE 667 MG TAB PO SCH ×4 (07:58→20:39)
[2020-09-23] MEDS: PANTOPRAZOLE 40 MG TABLET PO SCH (07:59)
[2020-09-23] MEDS: hydrALAZINE HCL 25 MG TAB PO SCH ×2 (07:59→20:39)
[2020-09-23] MEDS: METOPROLOL TARTRATE 25 MG TAB PO SCH ×2 (07:59→20:39)
[2020-09-23] MEDS ORDERED: ASPIRIN 81 MG PO SCH (08:00)
[2020-09-23] MEDS: SYMBICORT 160-4.5 MCG INHALER INHALATION SCH ×2 (08:06→19:26)
[2020-09-23] MEDS: TIOTROPIUM 2.5 MCG INHALER INHALATION SCH (08:06)
[2020-09-23] MEDS: ALBUTEROL HFA INHALER INHALATION SCH ×4 (08:06→19:26)
--- NOTE | 2020-09-23 10:39 | P.PN ---
Subjective HISTORY OF PRESENTING ILLNESS This is a pleasant 65-year-old female past medical history significant for hypertension, dyslipidemia, nicotine dependence, type 2 diabetes, cardiomyopathy, COPD and ESRD on HD M, W, F. She used to follow in the office with Dr. Meza. We have been asked to see in consultation for elevated troponin. Patient recently admitted 09/16/20 with shortness of breath, diagnosed with COPD exacerbation and she missed her dialysis appointment which was thought to contribute to her shortness of breath. She required BiPAP at that time. She was also anemic and received 2 units of PRBCs. She did have an episode of rectal bleeding. GI evaluated the patient and proceeded with conservative management and outpatient colonoscopy. She was stabilized and discharged to [facility]. She was re-admitted thereafter and required intubation. On this admission she is complaining of shortness of breath and chest pain. She was seen in consultation yesterday by Dr. Juárez. Troponin elevation is secondary to renal function and chest pain is pleuritic. She is seen this morning eating breakfast with ongoing shortness of breath. She states for the most part her chest pain has resolved but still at times feels tightness with breathing. Telemetry tracings reveal sinus mechanism with no arrhythmias noted. Blood pressure is 119/76 heart rate 95 afebrile maintaining oxygen saturation on nasal cannula. Most recent echocardiogram 09/08/2020- EF 30-35%, with wall motion abnormalities, trace MR, trace TR. Currently maintained on aspirin 81 mg daily, atorvastatin 10 mg daily, Lasix 80 mg by mouth twice a day, hydralazine 25 mg twice a day and Lopressor 25 mg twice a day. Chest xray obtained this morning revealed persistent unchanged pulmonary interstitial infiltrates. PHYSICAL EXAMINATION CONSTITUTIONAL: No apparent distress. HEENT: Head is normocephalic. Pupils are equal, round. Sclerae anicteric. Mucous membranes of the mouth are moist. No JVD. No carotid bruit. CHEST EXAMINATION: Clear to auscultation bilaterally, no rales, wheezes or rhonchi. No chest wall tenderness is noted on palpation or with deep breathing. HEART EXAMINATION: Regular rate and rhythm. S1, S2 heard. No murmurs, gallops or rub. EXTREMITIES: 2+ peripheral pulses, trace lower extremity edema and no calf tenderness. ASSESSMENT COPD exacerbation Elevated troponin, no acute coronary syndrome secondary to renal function Anemia of chronic disease End-stage renal disease on hemodialysis Chronic systolic heart failure with reduced ejection fraction Cardiomyopathy of unknown type since 2019 Hypertension Dyslipidemia Type 2 Diabetes PLAN Stable from a cardiac perspective on current medical regimen. Ongoing medical management. Cardiomyopathy is chronic since 2019. Shortness of breath is multi-factorial, anemia is significant component along with COPD and end stage renal disease. Continue oral lasix as ordered. Nurse Practitioner note has been reviewed, I agree with a documented findings and plan of care. Patient was seen and examined. Objective - Vital Signs Vital signs: Vital Signs Temp 99.1 F 09/23/20 02:00 Pulse 95 09/23/20 02:00 Resp 18 09/23/20 02:00 BP 119/76 09/23/20 02:00 Pulse Ox 92 L 09/23/20 08:06 Intake & Output 09/22/20 09/23/20 09/23/20 18:59 06:59 18:59 Weight 108.862 kg Other: Voiding Method Diaper Incontinent # Voids 1 - Labs CBC & Chem 7: 09/21/20 23:03 09/21/20 23:03
[2020-09-23 11:02] LABS: HCT 24.9 % (37.2-46.3); HGB 7.4 g/dL (12.0-15.0); MCHC 29.7 g/dL (32.0-37.0); MCV 107.8 fL (80.0-97.0); Mean Platelet Volume 10.1 fL (9.5-12.2); Platelet Count 158 X 10*3/uL (140-440); RBC 2.31 X 10*6/uL (4.10-5.20); RDW 17.1 % (11.5-14.5); WBC 4.14 X 10*3/uL (4.50-10.00)
[2020-09-23 12:52] LABS: Basophils # (A) 0.02 X 10*3/uL (0.00-0.10); Basophils % (A) 0.5 %; Eosinophils # (A) 0.04 X 10*3/uL (0.04-0.35); Lymphocytes # (A) 0.45 X 10*3/uL (0.90-5.00); Lymphocytes % (A) 10.9 %; Monocytes # (A) 0.38 X 10*3/uL (0.20-1.00); Monocytes % (A) 9.2 %; Neutrophils # (A) 3.19 X 10*3/uL (1.80-7.70)
[2020-09-23] MEDS ORDERED: GELATIN SPONGE,ABSORB (LARGE) 1 EACH SPONGE ONE (13:00)
--- NOTE | 2020-09-23 13:37 | P.PN ---
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 This a pleasant 65-year-old female patient with a known history of hypertension, morbid obesity, end-stage renal disease on hemodialysis, diabetes mellitus type 2, irritable bowel syndrome, seizure disorder, peripheral vascular occlusive disease, chronic liver disease with possible cirrhosis of the liver, cardiomyopathy with ejection fraction 30%. She also has chronic obstructive pulmonary disease and chronic hypoxic respiratory failure on home oxygen at 4 L/m per nasal cannula. She follows with Dr. Benjamin in our office for the same. She has recently had several admissions to the hospital for fluid volume overload and had been intubated on mechanical ventilator. She was just discharged from here again on 09/20/2020. She's been residing at [facility]. She was brought in to the emergency room again yesterday for complaints of shortness of breath, chest pain, nausea and weakness. Chest x-ray reveals extensive pulmonary interstitial infiltrates. Not significantly different from previous on 09/19/2020. Basilar atelectasis bilaterally. EKG reveals sinus rhythm with a left bundle branch block. White count 6.1. Hemoccult of 7.4. Lymphocytes 0.9. D-dimer 4.82. Sodium 1:30. Potassium 4.6. Creatinine 2.04. LDH 770. C-reactive protein 1.1. Troponin 0.031, 0.042, 0.038. ProBNP 9630. Influenza screen negative. Coronavirus screen negative. She is seen today in consultation in the emergency department. She is currently sitting up in the stretcher. Awake and alert in no acute distress. Maintaining O2 saturations in the mid to upper 90s on 4 L/m per nasal cannula. She's afebrile. She's been initiated on IV Cipro Medrol, Symbicort, albuterol, Spiriva. Patient was reevaluated today on 09/23/2020, remains on the regular medical floor, doing well, she is presently receiving hemodialysis. Remains on 4 L miguelito al cannula, and her O2 saturation is 92%. Chest x-ray continues to show interstitial edema. CBC is relatively normal except for hemoglobin of 7.4. Her troponin is about the same 0.038. Her PCR for COVID-19 was negative Objective - Vital Signs Vital signs: Vital Signs Temp 99.1 F 09/23/20 07:00 Pulse 92 09/23/20 07:00 Resp 22 09/23/20 08:00 BP 167/78 09/23/20 07:00 Pulse Ox 92 L 09/23/20 08:06 Intake & Output 09/22/20 09/23/20 09/23/20 18:59 06:59 18:59 Weight 108.862 kg Other: Voiding Method Diaper Incontinent # Voids 1 - Exam GENERAL EXAM: Revealed a 65-year-old female, obese, on 4 L nasal cannula, receiving hemodialysis at present, in no distress. HEAD: Normocephalic. Atraumatic. EENT: PERRLA, EOMI, anicteric, no neck masses, no JVD, no stridor. CHEST: No chest wall deformity. LUNGS: Fine crackles at the bases no rhonchi and no wheezes. CVS: S1 and S2 normal with no audible murmur, regular rhythm. ABDOMEN: Obese, soft, nontender, no megaly, no rebound, no guarding. SKIN: No rashes CENTRAL NERVOUS SYSTEM: Alert and oriented 3 in no gross focal deficits. EXTREMITIES: There is 1-2+ peripheral edema. No clubbing, no cyanosis. Peripheral pulses are intact. Psychiatric: Normal mood affect and normal mental status examination. - Labs CBC & Chem 7: 09/23/20 05:36 09/21/20 23:03 Labs: Abnormal Lab Results - Last 24 Hours (Table) 09/23/20 Range/Units 05:36 WBC 4.14 L (4.50-10.00) X 10*3/uL RBC 2.31 L (4.10-5.20) X 10*6/uL Hgb 7.4 L (12.0-15.0) g/dL Hct 24.9 L (37.2-46.3) % MCV 107.8 H (80.0-97.0) fL MCHC 29.7 L (32.0-37.0) g/dL RDW 17.1 H (11.5-14.5) % Immature Gran # 0.06 H (0.00-0.04) X 10*3/uL Lymphocytes # 0.45 L (0.90-5.00) X 10*3/uL Assessment and Plan Assessment: Impression: Acute on chronic hypoxic referred failure secondary to fluid overload secondary to chronic renal failure requiring hemodialysis and acute exacerbation of syst olic sick congestive heart failure History of underlying COPD. Chronic stage IV kidney disease on hemodialysis. Stage IV. Chronic liver disease Morbid obesity Diabetes with diabetic neuropathy Chronic anemia multifactorial. Mostly secondary to chronic disease and chronic renal failure History of seizure disorder Benign essential hypertension Recommendation: Continue present supportive care measures Continue hemodialysis Continue bronchodilators Continue oxygen and titrate accordingly. Venous Doppler was negative for DVT We'll continue to follow. Time with Patient: Less than 30
--- NOTE | 2020-09-23 14:07 | P.NPCON ---
History of Present Illness - Reason for Consult end stage renal disease - History of Present Illness Reason for consultation: End-stage renal disease History of present illness: Patient is a 65-year-old female seen in consultation for end-stage renal disease. She is maintained on hemodialysis on Saturday schedule. She is tolerating dialysis well. Patient presented to the hospital with chest pain or shortness of breath. She's had multiple recent hospitalizations including pneumonia requiring intubation. She has been evaluated by cardiology and there is no evidence of acute coronary syndrome. Blood pressure stable. Chest x-ray this morning didn't reveal any significant acute changes. Denies any vomiting or diarrhea. No evidence of DVT in the lower 70s. She tested negative for influenza as well as coronavirus. Vital signs are stable. General: The patient appeared well nourished and normally developed. HEENT: Head exam is unremarkable. Neck is without jugular venous distension. LUNGS: Breath sounds decreased. HEART: Rate and Rhythm are regular. ABDOMEN: Soft, obese. EXTREMITITES: Trace edema. Past Medical History Past Medical History: COPD, Diabetes Mellitus, GERD/Reflux, Hyperlipidemia, Hypertension, Osteoarthritis (OA), Pneumonia, Respiratory Disorder, Seizure Disorder, Vascular Disorder Additional Past Medical History / Comment(s): hepatic encephalopathy/chronic liver disease probably d/t fatty liver advancing to chronic liver disease with possible cirrhosis/acute on chronic renal failure/acute on chronic COPD, AMS d/t elevated ammonia levels/metabolic acidosis/ electrolyte disturbances. Other hx: High ammonia levels, chronic liver disease, kidney stones, CKD stage IV, chronic respiratory failure with home O2 at 4L/NC, NIDDM type II, neuropathy bilateral feet, IBS, arthritis in multiple joints, chronic back pain, current problems with weakness, generalized edema. History of Any Multi-Drug Resistant Organisms: None Reported Past Surgical History: Ear Surgery, Hysterectomy, Orthopedic Surgery Additional Past Surgical History / Comment(s): Multiple surgeries/ESWL for kidney stones, bilateral caratid endartectomies, L ankle surgery with metal esteban/pin, R ear surgery for deteriorating eardrum, sinus surgery, colonoscopy. Past Anesthesia/Blood Transfusion Reactions: No Reported Reaction Past Psychological History: Anxiety, Depression Smoking Status: Former smoker Past Alcohol Use History: None Reported Past Drug Use History: Marijuana - Past Family History Mother Family Medical History: Diabetes Mellitus, Hypertension Father Family Medical History: Hypertension Medications and Allergies Home Medications Medication Instructions Recorded Confirmed Type Phenytoin Sodium Extended 100 mg PO TID@0600,1400,2200 11/29/15 09/22/20 History [Dilantin] Folic Acid 1 mg PO DAILY@0800 07/22/17 09/22/20 History Primidone [Mysoline] 100 mg PO HS@199907/20/18 09/22/20 History Calcium Acetate 2,001 mg PO TID-W/MEALS 09/06/20 09/22/20 History Calcium Acetate [PhosLo] 667 mg PO HS@199909/06/20 09/22/20 History Fluticasone/Vilanterol [Breo 1 puff INHALATION RT-DAILY@79909/06/20 09/22/20 History Ellipta 100-25 Mcg Inhaler] Folic Acid-Vit B Complex-Vit C 1 cap PO DAILY@0800 09/06/20 09/22/20 History [Nephrocaps] Lidocaine-Prilocaine Cream [Emla 1 applic TOPICAL MOWEFR 09/06/20 09/22/20 History Cream 2.5%/2.5%] Simvastatin [Zocor] 10 mg PO HS@199909/06/20 09/22/20 History traZODone HCL 150 mg PO HS@199909/06/20 09/22/20 History Acetaminophen Tab [Tylenol] 650 mg PO Q6HR PRN tab 09/12/20 09/22/20 Rx Albuterol Inhaler [Ventolin Hfa 2 puff INHALATION RT-Q6H 09/16/20 09/22/20 History Inhaler] Diff-Stat Probiotic 2 cap PO BID 09/16/20 09/22/20 History Omeprazole 20 mg PO DAILY@0800 09/16/20 09/22/20 History ALPRAZolam [Xanax] 1 mg PO Q12H PRN 09/22/20 09/22/20 History Aspirin 81 mg PO DAILY@0800 09/22/20 09/22/20 History Cefuroxime Axetil [Ceftin] 500 mg PO DAILY@0800 09/22/20 09/22/20 History Furosemide [Lasix] 80 mg PO BID@799,199909/22/20 09/22/20 History Metoprolol Tartrate [Lopressor] 25 mg PO BID@0800,199909/22/20 09/22/20 History Montelukast [Singulair] 10 mg PO HS@199909/22/20 09/22/20 History hydrALAZINE HCL [Apresoline] 25 mg PO BID@08,199909/22/20 09/22/20 History traMADol HCl [Ultram] 50 mg PO QID 09/22/20 09/22/20 History Allergies Allergy/AdvReac Type Severity Reaction Status Date / Time Penicillins Allergy Mild Swelling Verified 09/22/20 06:33 Physical Exam Vitals: Vital Signs Temp Pulse Pulse Resp BP BP Pulse Ox 09/23/20 08:06 92 L 09/23/20 08:00 22 09/23/20 07:00 99.1 F 92 19 167/78 92 L 09/23/20 02:00 99.1 F 95 18 119/76 92 L 09/23/20 01:54 20 09/22/20 20:25 98 20 09/22/20 19:38 99.0 F 98 20 124/70 95 09/22/20 15:53 99.9 F H 82 23 119/53 98 09/22/20 15:13 98.7 F 88 18 146/80 97 09/22/20 15:00 88 18 146/80 97 Intake and Output 09/22/20 09/23/20 09/23/20 22:59 06:59 14:59 Other: Voiding Method Diaper Diaper Incontinent Incontinent # Voids 1 Results - Lab Results Most recent lab results Calcium 8.0 mg/dL (8.4-10.2) L 09/21/20 23:03 Phosphorus 2.4 mg/dL (2.5-4.5) L 09/21/20 23:03 Magnesium 1.7 mg/dL (1.6-2.3) 09/21/20 23:03 09/23/20 05:36 09/21/20 23:03 Assessment and Plan Plan: Assessment: 1. End-stage renal disease maintained on hemodialysis on Saturday schedule. She has AV fistula. 2. Chest pain. Cardiology following. No evidence of DVT. 3. Anemia of chronic kidney disease. 4. Chronic kidney disease mineral bone disease maintained on PhosLo. 5. Chronic systolic CHF. 6. Diabetes mellitus. 7. Hypertension with chronic kidney disease. Stable. Plan: Currently seen was undergoing hemodialysis. Next treatment on Saturday. Add Aranesp. Check iron studies. Thank you for the consultation. I will continue to follow the patient with you during her hospital stay.
--- NOTE | 2020-09-23 14:21 | P.PN ---
Subjective Progress Note Date: 09/23/20 65-year-old female patient who has been living in [facility], presents to the emergency room with multiple complaints including chest pain and shortness of breath. She's had multiple recent hospital admissions and continues to feel nauseous and weak. She was recently discharged from the [facility] on 09/20/2020 for dyspnea and shortness of breath as she had missed her dialysis appointment on Saturday causing her to become fluid overloaded. Her past medical history includes COPD, diabetes myelitis, GERD\reflux, hyperlipidemia, hypertension, osteoarthritis, pneumonia, respiratory disorder, seizure disorder, vascular disorder, she's had hepatic encephalopathy\chronic liver disease probably due to fatty liver chronic renal failure, high ammonia levels, chronic liver disease, kidney stones, stage IV kidney disease, chronic respiratory failure with home O2 at 4 L nasal cannula, IBS, chronic back pain, arthritis of multiple joints, and weakness, anxiety and depression and she is a former smoker. Initial EKG normal sinus rhythm with left bundle branch block. Initial set of lab work CBC resulted a white blood count of 6.1, hemoglobin 7.4, hematocrit 23.7, platelet count 240 lymphocytes 0.9. Coagulation studies PT of 10.1, INR of 0.9, APTT 20.3, and a d-dimer of 4.8. Chemistry reveals sodium 1:30, potassium 4.6, GAYE of 30, creatinine 2.04, glucose 176, pulse of 2.4, calcium 8.0, LDH of 770, C-reactive protein 1.1, B and P of 9630, and initial troponin was 0.031 with the second being 0.042. ER chest x-ray impression extensive pulmonary interstitial infiltrates not significantly different than recent exam basilar bilateral atelectasis. Most recent set of vitals blood pressure 160/55, 2 L nasal cannula maintaining oxygen saturation are 100% with pulse rate of 93, and temperature 98.5. Currently patient denies fever, nausea vomiting, diarrhea, visual changes, headache, loss of sense taste or smell. Her only complaint at this time is right sided chest pain and shortness of breath due to the pain. 4321 receiving hemodialysis. Chest x-ray reporting interstitial infiltrates unchanged, stable. maintaining O2 sat of 90-95% on 4 L, baseline. Doppler negative DVTs. Evaluated by cardiology, stable with no further inpatient workup recommended. T-max 99.9. Objective - Vital Signs Vital signs: Vital Signs Temp 99.1 F 09/23/20 07:00 Pulse 92 09/23/20 07:00 Resp 22 09/23/20 08:00 BP 167/78 09/23/20 07:00 Pulse Ox 92 L 09/23/20 08:06 Intake & Output 09/22/20 09/23/20 09/23/20 18:59 06:59 18:59 Weight 108.862 kg Other: Voiding Method Diaper Incontinent # Voids 1 - Exam GENERAL: Sitting up in bed, no acute distress. HEAD: Atraumatic, normocephalic. EYES: Pupils equal round and reactive to light, extraocular movements intact, sclera anicteric, conjunctiva are normal. ENT:nares patent, oropharynx clear without exudates. Moist mucous membranes. NECK: supple, no JVD LUNGS: Breath sounds clear to auscultation bilaterally and equal. Coarse, bibasilar crackles HEART: Regular rate and rhythm without murmurs, rubs or gallops.S1S2 Normal ABDOMEN: Soft, nontender, normoactive bowel sounds. No guarding, no rebound. EXTREMITIES: Normal range of motion, positive edema edema. No clubbing or cyanosis. NEUROLOGICAL: Cranial nerves II through XII grossly intact. No focal deficits PSYCH: Normal mood, normal affect. SKIN: Warm, Dry, no rash noted. - Labs CBC & Chem 7: 09/23/20 05:36 09/21/20 23:03 Labs: Abnormal Lab Results - Last 24 Hours (Table) 09/23/20 Range/Units 05:36 WBC 4.14 L (4.50-10.00) X 10*3/uL RBC 2.31 L (4.10-5.20) X 10*6/uL Hgb 7.4 L (12.0-15.0) g/dL Hct 24.9 L (37.2-46.3) % MCV 107.8 H (80.0-97.0) fL MCHC 29.7 L (32.0-37.0) g/dL RDW 17.1 H (11.5-14.5) % Assessment and Plan Assessment: (1) Chest pain, elevated troponins, no acute coronary syndrome as per cardiology, suspect related to renal function Current Visit: Yes Status: Acute Code(s): R07.9 - CHEST PAIN, UNSPECIFIED SNOMED Code(s): 69864633 (2) Shortness of breath, acute on chronic hypoxic respiratory failure secondary to fluid overload related to acute CHF systolic dysfunction. Wears 4 L nasal cannula O2 at home. Recently admitted with bilateral pneumonia, sepsis requiring intubation. Current Visit: Yes Status: Acute Code(s): R06.02 - SHORTNESS OF BREATH SNOMED Code(s): 477660021 (3) COPD (chronic obstructive pulmonary disease) Current Visit: Yes Status: Acute Code(s): J44.9 - CHRONIC OBSTRUCTIVE PULMONARY DISEASE, UNSPECIFIED SNOMED Code(s): 20742329 (4) Congestive heart failure (CHF), systolic with chronic cardiomyopathy-type unknown Current Visit: Yes Status: Acute Code(s): I50.9 - HEART FAILURE, UNSPECIFIED SNOMED Code(s): 76411001 (5) ESRD (end stage renal disease) Current Visit: Yes Status: Acute Code(s): N18.6 - END STAGE RENAL DISEASE SNOMED Code(s): 73852321 (6) Acute exacerbation of chronic obstructive airways disease Current Visit: No Status: Acute Code(s): J44.1 - CHRONIC OBSTRUCTIVE PULMONARY DISEASE W (ACUTE) EXACERBATION SNOMED Code(s): 196814825 (7) Acute on chronic renal failure, stage IV Current Visit: No Status: Acute Code(s): N17.9 - ACUTE KIDNEY FAILURE, UNSPECIFIED; N18.9 - CHRONIC KIDNEY DISEASE, UNSPECIFIED SNOMED Code(s): 638298122 (8) Anemia in chronic kidney disease Current Visit: No Status: Acute Code(s): N18.9 - CHRONIC KIDNEY DISEASE, UNSPECIFIED; D63.1 - ANEMIA IN CHRONIC KIDNEY DISEASE SNOMED Code(s): 833814745 (9) Diabetes mellitus type II with diabetic neuropathy Current Visit: No Status: Acute Code(s): E11.9 - TYPE 2 DIABETES MELLITUS WITHOUT COMPLICATIONS SNOMED Code(s): 09357601 (10) Elevated troponin Current Visit: No Status: Acute Code(s): R74.8 - ABNORMAL LEVELS OF OTHER SERUM ENZYMES SNOMED Code(s): 754776507 (11) Noncompliance Current Visit: No Status: Acute Code(s): Z91.19 - PATIENT'S NONCOMPLIANCE W OTH MEDICAL TREATMENT AND REGIMEN SNOMED Code(s): 4147062 (12) Readmission after hospitalization within last 30 days Current Visit: No Status: Acute Code(s): DVJ0609 - SNOMED Code(s): 202860129 (13) Seizure disorder Current Visit: No Status: Acute Code(s): G40.909 - EPILEPSY, UNSP, NOT INTRACTABLE, WITHOUT STATUS EPILEPTICUS SNOMED Code(s): 031994036 (14) Anemia of chronic disease Current Visit: Yes Status: Acute Code(s): D63.8 - ANEMIA IN OTHER CHRONIC DISEASES CLASSIFIED ELSEWHERE SNOMED Code(s): 977484639 (15) Chronic nicotine dependence, quit in 2016 (16) hypertension (17) dyslipidemia (18) morbid obesity, BMI 41.2 Plan: Continue on current medication regime ,monitoring and symptomatic treatment. Hemodialysis as per nephrology. Discharge planning in progress pending final DC recommendations and clearance from pulmonary, to [facility]. The impression and plan of care has been dictated as directed. : I performed a history and examination of this patient, discussed the same with the dictator. I agree with the dictator's note ,documented as a scribe. Any additional findings or plans will be noted.
[2020-09-23 14:35] LABS: Magnesium 1.6 mg/dL (1.5-2.4)
[2020-09-23 14:36] LABS: African American GFR (CKD) 18.1 (60.0-200.0); Albumin 3.5 g/dL (3.80-4.90); Albumin/Globulin Ratio 1.4 (1.60-3.17); Anion Gap 15.2 mmol/L (4.00-12.00); BUN/Creat Ratio 12.33 Ratio (12.00-20.00); Calcium 8.2 mg/dL (8.7-10.3); Carbon Dioxide 21.8 mmol/L (21.6-31.8); Globulin 2.5 g/dL (1.6-3.3); Non-African American GFR(CKD) 15.7 (60.0-200.0); Phosphorus 3.2 mg/dL (2.4-5.1); Potassium 5.2 mmol/L (3.5-5.5); Total Bilirubin 0.2 mg/dL (0.3-1.2)
[2020-09-23] MEDS ORDERED: DARBEPOETIN ALFA 40 MCG/0.4 ML SYRINGE SQ SCH (16:00)
[2020-09-23] MEDS: traMADol 50 MG TAB PO PRN (16:25)
[2020-09-23] MEDS: ATORVASTATIN 10 MG TAB PO SCH (20:39)
[2020-09-23] MEDS: traZODone HCL 50 MG TAB PO SCH (20:40)
[2020-09-23] MEDS: PRIMIDONE 50 MG TAB PO SCH (20:40)
[2020-09-23 20:45] LABS: % Iron Saturation 11.42 (12.00-45.00); Ferritin 864.9 ng/mL (10.0-291.0)
[2020-09-24] MEDS: PHENYTOIN SODIUM EXTENDED 100 MG CAP PO SCH (05:37)
[2020-09-24 08:07] VITALS: RESP 16
[2020-09-24] MEDS: SYMBICORT 160-4.5 MCG INHALER INHALATION SCH (08:07)
[2020-09-24] MEDS: ALBUTEROL HFA INHALER INHALATION SCH ×2 (08:07→12:08)
[2020-09-24] MEDS: TIOTROPIUM 2.5 MCG INHALER INHALATION SCH (08:07)
[2020-09-24] MEDS: ASPIRIN 81 MG PO SCH (08:12)
[2020-09-24] MEDS: FOLIC ACID 1 MG TAB PO SCH (08:12)
[2020-09-24] MEDS: CALCIUM ACETATE 667 MG TAB PO SCH (08:12)
[2020-09-24] MEDS: PANTOPRAZOLE 40 MG TABLET PO SCH (08:12)
[2020-09-24] MEDS: FUROSEMIDE 80 MG TAB PO SCH (08:12)
[2020-09-24] MEDS: FOLIC ACID-VIT B COMPLEX-VIT C 1 CAP PO SCH (08:13)
[2020-09-24] MEDS: LACTOBACILLUS ACIDOPH & BULGAR 1 EACH PACKET PO SCH (08:13)
[2020-09-24] MEDS: hydrALAZINE HCL 25 MG TAB PO SCH (08:13)
[2020-09-24] MEDS: METOPROLOL TARTRATE 25 MG TAB PO SCH (08:13)
[2020-09-24] MEDS: traMADol 50 MG TAB PO PRN (10:07)
--- NOTE | 2020-09-24 11:04 | P.DS ---
Providers Date of admission: 09/22/20 00:23 Expected date of discharge: 09/24/20 Attending physician: Adal Mari Consults: 09/22/20 00:24 Consult Physician Routine Consulting Provider: Lavern Benjamin Consult Reason/Comments: copd Do you want consulting provider notified?: Yes Consult Physician Routine Consulting Provider: Viet Diaz Consult Reason/Comments: cp Do you want consulting provider notified?: Yes 09/22/20 13:38 Consult Physician Urgent Consulting Provider: Tavo Winchester Consult Reason/Comments: Dialysis Do you want consulting provider notified?: Yes Primary care physician: [facility] Course: 5-year-old female patient who has been living in [facility], presents to the emergency room with multiple complaints including chest pain and shortness of breath. She's had multiple recent hospital admissions and continues to feel nauseous and weak. She was recently discharged from the hospital on 09/20/2020 for dyspnea and shortness of breath as she had missed her dialysis appointment on Saturday causing her to become fluid overloaded. Her past medical history includes COPD, diabetes myelitis, GERD\reflux, hyperlipidemia, hypertension, osteoarthritis, pneumonia, respiratory disorder, seizure disorder, vascular disorder, she's had hepatic encephalopathy\chronic liver disease probably due to fatty liver chronic renal failure, high ammonia levels, chronic liver disease, kidney stones, stage IV kidney disease, chronic respiratory failure with home O2 at 4 L nasal cannula, IBS, chronic back pain, arthritis of multiple joints, and weakness, anxiety and depression and she is a former smoker. Initial EKG normal sinus rhythm with left bundle branch block. Initial set of lab work CBC resulted a white blood count of 6.1, hemoglobin 7.4, hematocrit 23.7, platelet count 240 lymphocytes 0.9. Coagulation studies PT of 10.1, INR of 0.9, APTT 20.3, and a d-dimer of 4.8. Chemistry reveals sodium 1:30, potassium 4.6, GAYE of 30, creatinine 2.04, glucose 176, pulse of 2.4, calcium 8.0, LDH of 770, C-reactive protein 1.1, B and P of 9630, and initial troponin was 0.031 with the second being 0.042. ER chest x-ray impression extensive pulmonary interstitial infiltrates not significantly different than recent exam basilar bilateral atelectasis. Most recent set of vitals blood pressure 160/55, 2 L nasal cannula maintaining oxygen saturation are 100% with pulse rate of 93, and temperature 98.5. Currently patient denies fever, nausea vomiting, diarrhea, visual changes, headache, loss of sense taste or smell. Her only complaint at this time is right sided chest pain and shortness of breath due to the pain. 4321 receiving hemodialysis. Chest x-ray reporting interstitial infiltrates unchanged, stable. maintaining O2 sat of 90-95% on 4 L, baseline. Doppler negative DVTs. Evaluated by cardiology, stable with no further inpatient workup recommended. T-max 99.9. 09/24/2020: Patient's remained stable overnight. She continues to have pain. She has ongoing musculoskeletal pain at recurrent spots in her body. Currently she is indicating her right flank. She was readmitted for right-sided chest pain. He has no current acute medical problems. She underwent dialysis yesterday. She seen by pulmonology cardiology and nephrology. She can return to [facility]. Trial of Lidoderm patch along with her Ultram for pain control. Patient Condition at Discharge: Fair Plan - Discharge Summary Discharge Rx Participant: No New Discharge Prescriptions: New Lidocaine 5% Patch [Lidoderm] 1 patch TOPICAL DAILY #30 patch Albuterol Inhaler [Ventolin Hfa Inhaler] 2 puff INHALATION RT-QID puff Darbepoetin Scott [Aranesp] 40 mcg SQ Q7D syringe Aspirin 81 mg PO DAILY chew Tiotropium 2.5 Mcg/Puff [Spiriva Respimat 2.5 Mcg] 2 puff INHALATION RT-DAILY puff Budesonide-Formot 160-4.5 Mcg [Symbicort 160-4.5 Mcg Inhaler] 2 puff INHALATION RT-BID puff Acetaminophen Tab [Tylenol] 650 mg PO Q6HR PRN tab PRN Reason: Mild Pain Or Fever > 100.5 Continue Phenytoin Sodium Extended [Dilantin] 100 mg PO TID@0600,1400,2200 Folic Acid 1 mg PO DAILY@0800 Primidone [Mysoline] 100 mg PO HS@2000 traZODone HCL 150 mg PO HS@2000 Simvastatin [Zocor] 10 mg PO HS@2000 Lidocaine-Prilocaine Cream [Emla Cream 2.5%/2.5%] 1 applic TOPICAL MOWEFR Folic Acid-Vit B Complex-Vit C [Nephrocaps] 1 cap PO DAILY@0800 Calcium Acetate 2,001 mg PO TID-W/MEALS Albuterol Inhaler [Ventolin Hfa Inhaler] 2 puff INHALATION RT-Q6H Aspirin 81 mg PO DAILY@0800 Furosemide [Lasix] 80 mg PO BID@799,1999 Metoprolol Tartrate [Lopressor] 25 mg PO BID@799,1999 traMADol HCl [Ultram] 50 mg PO QID Calcium Acetate [PhosLo] 667 mg PO HS@1999 Fluticasone/Vilanterol [Breo Ellipta 100-25 Mcg Inhaler] 1 puff INHALATION RT-DAILY@0800 Acetaminophen Tab [Tylenol] 650 mg PO Q6HR PRN tab PRN Reason: Mild Pain Or Fever > 100.5 Omeprazole 20 mg PO DAILY@0800 Diff-Stat Probiotic 2 cap PO BID Cefuroxime Axetil [Ceftin] 500 mg PO DAILY@08 Montelukast [Singulair] 10 mg PO HS@1999 hydrALAZINE HCL [Apresoline] 25 mg PO BID@ ALPRAZolam [Xanax] 1 mg PO Q12H PRN PRN Reason: Anxiety Discharge Medication List Phenytoin Sodium Extended [Dilantin] 100 mg PO TID@0600,1400,2200 11/29/15 [History] Folic Acid 1 mg PO DAILY@0800 07/22/17 [History] Primidone [Mysoline] 100 mg PO HS@199907/20/18 [History] Calcium Acetate 2,001 mg PO TID-W/MEALS 09/06/20 [History] Calcium Acetate [PhosLo] 667 mg PO HS@199909/06/20 [History] Fluticasone/Vilanterol [Breo Ellipta 100-25 Mcg Inhaler] 1 puff INHALATION RT- DAILY@79909/06/20 [History] Folic Acid-Vit B Complex-Vit C [Nephrocaps] 1 cap PO DAILY@0809/06/20 [History] Lidocaine-Prilocaine Cream [Emla Cream 2.5%/2.5%] 1 applic TOPICAL MOWEFR 09/06/20 [History] Simvastatin [Zocor] 10 mg PO HS@199909/06/20 [History] traZODone HCL 150 mg PO HS@199909/06/20 [History] Acetaminophen Tab [Tylenol] 650 mg PO Q6HR PRN tab 09/12/20 [Rx] Albuterol Inhaler [Ventolin Hfa Inhaler] 2 puff INHALATION RT-Q6H 09/16/20 [History] Diff-Stat Probiotic 2 cap PO BID 09/16/20 [History] Omeprazole 20 mg PO DAILY@0800 09/16/20 [History] ALPRAZolam [Xanax] 1 mg PO Q12H PRN 09/22/20 [History] Aspirin 81 mg PO DAILY@0800 09/22/20 [History] Cefuroxime Axetil [Ceftin] 500 mg PO DAILY@0809/22/20 [History] Furosemide [Lasix] 80 mg PO BID@0800,199909/22/20 [History] Metoprolol Tartrate [Lopressor] 25 mg PO BID@0800,199909/22/20 [History] Montelukast [Singulair] 10 mg PO HS@199909/22/20 [History] hydrALAZINE HCL [Apresoline] 25 mg PO BID@0800,199909/22/20 [History] traMADol HCl [Ultram] 50 mg PO QID 09/22/20 [History] Acetaminophen Tab [Tylenol] 650 mg PO Q6HR PRN tab 09/24/20 [Rx] Albuterol Inhaler [Ventolin Hfa Inhaler] 2 puff INHALATION RT-QID puff 09/24/20 [Rx] Aspirin 81 mg PO DAILY chew 09/24/20 [Rx] Budesonide-Formot 160-4.5 Mcg [Symbicort 160-4.5 Mcg Inhaler] 2 puff INHALATION RT-BID puff 09/24/20 [Rx] Darbepoetin Scott [Aranesp] 40 mcg SQ Q7D syringe 09/24/20 [Rx] Lidocaine 5% Patch [Lidoderm] 1 patch TOPICAL DAILY #30 patch 09/24/20 [Rx] Tiotropium 2.5 Mcg/Puff [Spiriva Respimat 2.5 Mcg] 2 puff INHALATION RT-DAILY puff 09/24/20 [Rx] Follow up Appointment(s)/Referral(s): Viet Diaz MD [STAFF PHYSICIAN] - 2 Weeks Adal Mari Jr, DO [Primary Care Provider] - 1-2 days Discharge Disposition: TRANSFER TO SNF/ECF
[2020-09-24] MEDS ORDERED: LIDOCAINE 5% PATCH TOPICAL SCH (12:00)
--- NOTE | 2020-09-24 14:12 | P.PN ---
Subjective Progress Note Date: 09/24/20 Principal diagnosis: Acute on chronic hypoxic respiratory failure secondary to fluid volume overload This a pleasant 65-year-old female patient with a known history of hypertension, morbid obesity, end-stage renal disease on hemodialysis, diabetes mellitus type 2, irritable bowel syndrome, seizure disorder, peripheral vascular occlusive disease, chronic liver disease with possible cirrhosis of the liver, cardiomyopathy with ejection fraction 30%. She also has chronic obstructive pulmonary disease and chronic hypoxic respiratory failure on home oxygen at 4 L/m per nasal cannula. She follows with Dr. Benjamin in our office for the same. She has recently had several admissions to the hospital for fluid volume overload and had been intubated on mechanical ventilator. She was just discharged from here again on 09/20/2020. She's been residing at [facility]. She was brought in to the emergency room again yesterday for complaints of shortness of breath, chest pain, nausea and weakness. Chest x-ray reveals extensive pulmonary interstitial infiltrates. Not significantly different from previous on 09/19/2020. Basilar atelectasis bilaterally. EKG reveals sinus rhythm with a left bundle branch block. White count 6.1. Hemoccult of 7.4. Lymphocytes 0.9. D-dimer 4.82. Sodium 1:30. Potassium 4.6. Creatinine 2.04. LDH 770. C-reactive protein 1.1. Troponin 0.031, 0.042, 0.038. ProBNP 9630. Influenza screen negative. Coronavirus screen negative. She is seen today in consultation in the emergency department. She is currently sitting up in the stretcher. Awake and alert in no acute distress. Maintaining O2 saturations in the mid to upper 90s on 4 L/m per nasal cannula. She's afebrile. She's been initiated on IV Cipro Medrol, Symbicort, albuterol, Spiriva. Patient was reevaluated today on 09/23/2020, remains on the regular medical floor, doing well, she is presently receiving hemodialysis. Remains on 4 L nasal cannula, and her O2 saturation is 92%. Chest x-ray continues to show interstitial edema. CBC is relatively normal except for hemoglobin of 7.4. Her troponin is about the same 0.038. Her PCR for COVID-19 was negative The patient is seen today 09/24/2020 follow-up on the regular medical floor. She is currently sitting up at the bedside. Awake and alert in no acute distress. No worsening shortness of breath, cough or congestion. Maintaining O2 saturation in the upper 90s on 4 L/m per nasal cannula. She's afebrile. No new labs today. Objective - Vital Signs Vital signs: Vital Signs Temp 98.9 F 09/24/20 06:50 Pulse 90 09/24/20 06:50 Resp 16 09/24/20 06:50 BP 143/71 09/24/20 06:50 Pulse Ox 98 09/24/20 06:50 Intake & Output 09/23/20 09/24/20 09/24/20 18:59 06:59 18:59 Intake Total 236 400 Output Total 2400 Balance 236 -2000 Weight 100.8 kg Intake: Oral 236 Hemodialysis 400 Output: Hemodialysis 2400 Other: Voiding Method Bedside Commode Bedside Commode Incontinent Incontinent # Voids 1 2 1 # Bowel Movements 1 - Exam GENERAL EXAM: Revealed a 65-year-old female, obese, on 4 L nasal cannula, in no distress. HEAD: Normocephalic. Atraumatic. EENT: PERRLA, EOMI, anicteric, no neck masses, no JVD, no stridor. CHEST: No chest wall deformity. LUNGS: Fine crackles at the bases no rhonchi and no wheezes. CVS: S1 and S2 normal with no audible murmur, regular rhythm. ABDOMEN: Obese, soft, nontender, no megaly, no rebound, no guarding. SKIN: No rashes CENTRAL NERVOUS SYSTEM: Alert and oriented 3 in no gross focal deficits. EXTREMITIES: There is 1-2+ peripheral edema. No clubbing, no cyanosis. Charlene pheral pulses are intact. Psychiatric: Normal mood affect and normal mental status examination. - Labs CBC & Chem 7: 09/23/20 05:36 09/23/20 05:36 Labs: Abnormal Lab Results - Last 24 Hours (Table) 09/23/20 09/23/20 Range/Units 05:36 05:36 Anion Gap 15.20 H (4.00-12.00) mmol/L BUN 37.0 H (9.0-27.0) mg/dL Creatinine 3.0 H (0.6-1.5) mg/dL Est GFR (CKD-EPI)AfAm 18.1 L (60.0-200.0) Est GFR (CKD-EPI)NonAf 15.7 L (60.0-200.0) Glucose 146 H (70-110) mg/dL Calcium 8.2 L (8.7-10.3) mg/dL Iron 29 L (50-170) ug/dL % Saturation 11.42 L (12.00-45.00) Ferritin 864.9 H (10.0-291.0) ng/mL Total Bilirubin 0.2 L (0.3-1.2) mg/dL Total Protein 6.0 L (6.2-8.2) g/dL Albumin 3.50 L (3.80-4.90) g/dL Albumin/Globulin Ratio 1.40 L (1.60-3.17) g/dL Assessment and Plan Assessment: 1 Acute on chronic hypoxemic respiratory failure secondary to fluid volume overload secondary to an acute exacerbation of systolic congestive heart failure 2 Chronic hypoxemic respiratory failure secondary to chronic obstructive pulmonary disease on home oxygen at 4 L 3 History of heavy chronic tobacco dependence, quit in 2015 4 Chronic stage IV kidney disease receiving hemodialysis on Saturday. 5 Recent admission requiring intubation mechanical ventilatory support secondary to bilateral pneumonia/sepsis 6 Troponin leak in a patient with a known history of cardiomyopathy with ejection fraction of 30-35% 9 Morbid obesity 8 Chronic liver disease 9 History of seizure disorder 10 Hypertension 11 Hyperlipidemia 12 Diabetes mellitus 13 Diabetic neuropathy 14 Irritable bowel syndrome 15 Anemia of chronic disease 16 assisted resident 17 Poor overall functional performance based on the above-mentioned multiple comorbidities Plan: The patient was seen and evaluated by Dr. Fahad Davis and back to her baseline from the pulmonary standpoint Plan is to transfer back to [facility] today I, the cosigning physician, performed a history & physical examination of the patient. Lungs sounds with crackles in the bilateral posterior bases. Maintaining good O2 saturations in the 90s on 4 L/m per nasal cannula. I discussed the assessment and plan of care with my nurse practitioner, Kirstie Anne. I attest to the above note as dictated by her.
[2020-09-24 14:43] VITALS: BP 111/82; PULSE 89; TEMP 99.1
--- NOTE | 2020-09-24 14:55 | P.PN ---
Subjective Progress Note Date: 09/24/20 Follow-up for ESRD. Objective - Vital Signs Vital signs: Vital Signs Temp 99.1 F 09/24/20 13:40 Pulse 89 09/24/20 13:40 Resp 16 09/24/20 13:40 BP 111/82 09/24/20 13:40 Pulse Ox 100 09/24/20 13:40 Intake & Output 09/23/20 09/24/20 09/24/20 18:59 06:59 18:59 Intake Total 236 400 Output Total 2400 Balance 236 -2000 Weight 100.8 kg Intake: Oral 236 Hemodialysis 400 Output: Hemodialysis 2400 Other: Voiding Method Bedside Commode Bedside Commode Incontinent Incontinent # Voids 1 2 1 # Bowel Movements 1 - Exam Refer to primary team exam COVID-19 isolation - Labs CBC & Chem 7: 09/23/20 05:36 09/23/20 05:36 Labs: Abnormal Lab Results - Last 24 Hours (Table) 09/23/20 Range/Units 05:36 Iron 29 L (50-170) ug/dL % Saturation 11.42 L (12.00-45.00) Ferritin 864.9 H (10.0-291.0) ng/mL Assessment and Plan Assessment: #1 ESRD MWF via aVF #2 anemia with ESRD #3 hypertension with ESRD #4 metabolic bone disease with ESRD #5 chest pain Plan: #1 hemodialysis MWF schedule #2 ESRD medications
[2020-09-24] MEDS: ACETAMINOPHEN TAB 325 MG TAB PO PRN (15:06)
== END 2020-09-24 15:15 ==
LOC: EC 22:28 → 6NMEDSUR 09-22 00:23 → 3SCARD 09-22 05:24 → 6NMEDSUR 09-22 14:12
PROVIDERS: ADMIT Family Medicine; ATTEND Family Medicine
DX: J44.1 Chronic obstructive pulmonary disease with (acute) exacerbation (principal); J96.21 Acute and chronic respiratory failure with hypoxia; R06.02 Shortness of breath; I13.2 Hypertensive heart and chronic kidney disease with heart failure and with stage 5 chronic kidney disease, or end stage renal disease; N18.6 End stage renal disease; N17.9 Acute kidney failure, unspecified; I50.23 Acute on chronic systolic (congestive) heart failure; I42.9 Cardiomyopathy, unspecified; D63.1 Anemia in chronic kidney disease; Z91.19 Patient's noncompliance with other medical treatment and regimen; E11.40 Type 2 diabetes mellitus with diabetic neuropathy, unspecified; G40.909 Epilepsy, unspecified, not intractable, without status epilepticus; E11.22 Type 2 diabetes mellitus with diabetic chronic kidney disease; E78.5 Hyperlipidemia, unspecified; I44.7 Left bundle-branch block, unspecified; Z20.822 Contact with and (suspected) exposure to COVID-19; F41.9 Anxiety disorder, unspecified; F32.9 Major depressive disorder, single episode, unspecified; K21.9 Gastro-esophageal reflux disease without esophagitis; J98.11 Atelectasis; K58.9 Irritable bowel syndrome, unspecified; K76.0 Fatty (change of) liver, not elsewhere classified; K72.10 Chronic hepatic failure without coma; E66.01 Morbid (severe) obesity due to excess calories; K62.5 Hemorrhage of anus and rectum; M19.90 Unspecified osteoarthritis, unspecified site; M54.9 Dorsalgia, unspecified; G89.29 Other chronic pain; M79.18 Myalgia, other site; R60.1 Generalized edema; E88.89 Other specified metabolic disorders; Z68.41 Body mass index [BMI] 40.0-44.9, adult; Z99.81 Dependence on supplemental oxygen; Z79.82 Long term (current) use of aspirin; Z79.899 Other long term (current) drug therapy; Z79.84 Long term (current) use of oral hypoglycemic drugs; Z88.0 Allergy status to penicillin; Z99.2 Dependence on renal dialysis; Z90.710 Acquired absence of both cervix and uterus; Z87.891 Personal history of nicotine dependence; Z87.442 Personal history of urinary calculi; Z87.01 Personal history of pneumonia (recurrent); Z82.49 Family history of ischemic heart disease and other diseases of the circulatory system; Z83.3 Family history of diabetes mellitus
CPT/HCPCS: 96372; 96376; 96361 ×2; 96374; 99285; 36415; 94640 ×6; 94760; 93005; 85379; 83880; 80053 ×2; 82728; 82550; 83540; 83550; 83615; 83735 ×2; 84100 ×2; 84484 ×2; 85025 ×2; 85610; 85730; 86140; 81001; 87636; 71045; 71046; 93970; G0257; G0378 ×3; J2270; J1200; J1940; J2930; J0881; 90935

== ENCOUNTER 2020-09-30 18:39 | Inpatient (IN) | payer MEDICARE, OTHER ==
[2020-09-30 19:20] LABS: Anisocytosis Slight; Basophils % (A) 1 %; Eosinophils # (A) 0.3 k/uL (0-0.7); Eosinophils % (A) 6 %; HCT 24.8 % (34.0-46.0); HGB 8.2 gm/dL (11.4-16.0); Hypochromasia Slight; Lymphocytes # (A) 0.9 k/uL (1.0-4.8); Lymphocytes % (A) 19 %; MCH 34.1 pg (25.0-35.0); MCV 103.4 fL (80.0-100.0); Macrocytosis Moderate; Mean Platelet Volume 7.1; Monocytes # (A) 0.4 k/uL (0-1.0); Monocytes % (A) 8 %; Neutrophils # (A) 3.1 k/uL (1.3-7.7); Neutrophils % (A) 65 %; Platelet Count 158 k/uL (150-450); RDW 16.5 % (11.5-15.5); WBC 4.8 k/uL (3.8-10.6)
--- NOTE | 2020-09-30 19:24 | ED ---
General Adult HPI - General Chief complaint: Recheck/Abnormal Lab/Rx Stated complaint: Failure to thrive Time Seen by Provider: 09/30/20 18:45 Source: patient, EMS, RN notes reviewed, old records reviewed Mode of arrival: EMS Limitations: no limitations - History of Present Illness Initial comments: 65-year-old female presenting with generalized weakness, fatigue, and refusal to go to hemodialysis for approximately one week. Patient stating that she did not feel well and was unable and unwilling to go to dialysis. She does report some dyspnea. No central chest pain. No reported fever. No abdominal pain or vomiting. She states she does continue to make urine and denies any dysuria or hematuria. - Related Data Home Medications Medication Instructions Recorded Confirmed Phenytoin Sodium Extended 100 mg PO TID@0600,1400,2200 11/29/15 09/30/20 [Dilantin] Folic Acid 1 mg PO DAILY@79907/22/17 09/30/20 Primidone [Mysoline] 100 mg PO HS@199907/20/18 09/30/20 Calcium Acetate 2,001 mg PO TID-W/MEALS 09/06/20 09/30/20 Calcium Acetate [PhosLo] 667 mg PO HS@199909/06/20 09/30/20 Fluticasone/Vilanterol [Breo 1 puff INHALATION RT-DAILY@79909/06/20 09/30/20 Ellipta 100-25 Mcg Inhaler] Folic Acid-Vit B Complex-Vit C 1 cap PO DAILY@79909/06/20 09/30/20 [Nephrocaps] Lidocaine-Prilocaine Cream [Emla 1 applic TOPICAL MOWEFR 09/06/20 09/30/20 Cream 2.5%/2.5%] Simvastatin [Zocor] 10 mg PO HS@199909/06/20 09/30/20 traZODone HCL 150 mg PO HS@199909/06/20 09/30/20 Albuterol Inhaler [Ventolin Hfa 2 puff INHALATION RT-Q6H 09/16/20 09/30/20 Inhaler] Diff-Stat Probiotic 2 cap PO BID 09/16/20 09/30/20 Omeprazole 20 mg PO DAILY@0800 09/16/20 09/30/20 ALPRAZolam [Xanax] 1 mg PO Q12H PRN 09/22/20 09/30/20 Cefuroxime Axetil [Ceftin] 500 mg PO DAILY@0800 09/22/20 09/30/20 Furosemide [Lasix] 80 mg PO BID@0800,199909/22/20 09/30/20 Metoprolol Tartrate [Lopressor] 25 mg PO BID@0800,199909/22/20 09/30/20 Montelukast [Singulair] 10 mg PO HS@199909/22/20 09/30/20 hydrALAZINE HCL [Apresoline] 25 mg PO BID@0800,199909/22/20 09/30/20 traMADol HCl [Ultram] 50 mg PO QID 09/22/20 09/30/20 Previous Rx's Medication Instructions Recorded Acetaminophen Tab [Tylenol] 650 mg PO Q6HR PRN tab 09/24/20 Aspirin 81 mg PO DAILY chew 09/24/20 Allergies Allergy/AdvReac Type Severity Reaction Status Date / Time Penicillins Allergy Mild Swelling Verified 09/30/20 19:06 Review of Systems ROS Statement: Those systems with pertinent positive or pertinent negative responses have been documented in the HPI. ROS Other: All systems not noted in ROS Statement are negative. Past Medical History Past Medical History: COPD, Diabetes Mellitus, GERD/Reflux, Hyperlipidemia, Hypertension, Osteoarthritis (OA), Pneumonia, Respiratory Disorder, Seizure Disorder, Vascular Disorder Additional Past Medical History / Comment(s): hepatic encephalopathy/chronic liver disease probably d/t fatty liver advancing to chronic liver disease with possible cirrhosis/acute on chronic renal failure/acute on chronic COPD, AMS d/t elevated ammonia levels/metabolic acidosis/ electrolyte disturbances. Other hx: High ammonia levels, chronic liver disease, kidney stones, CKD stage IV, chronic respiratory failure with home O2 at 4L/NC, NIDDM type II, neuropathy bilateral feet, IBS, arthritis in multiple joints, chronic back pain, current problems with weakness, generalized edema. History of Any Multi-Drug Resistant Organisms: None Reported Past Surgical History: Ear Surgery, Hysterectomy, Orthopedic Surgery Additional Past Surgical History / Comment(s): Multiple surgeries/ESWL for kidney stones, bilateral caratid endartectomies, L ankle surgery with metal esteban/pin, R ear surgery for deteriorating eardrum, sinus surgery, colonoscopy. Past Anesthesia/Blood Transfusion Reactions: No Reported Reaction Past Psychological History: Anxiety, Depression Smoking Status: Former smoker Past Alcohol Use History: None Reported Past Drug Use History: Marijuana - Past Family History Mother Family Medical History: Diabetes Mellitus, Hypertension Father Family Medical History: Hypertension General Exam Limitations: no limitations General appearance: alert, in no apparent distress Head exam: Present: atraumatic, normocephalic Eye exam: Present: normal appearance, PERRL ENT exam: Present: normal exam Neck exam: Present: normal inspection. Absent: tenderness, meningismus Respiratory exam: Present: rales, decreased breath sounds. Absent: respiratory distress Cardiovascular Exam: Present: regular rate, normal rhythm GI/Abdominal exam: Present: soft. Absent: distended, tenderness, guarding, rebound Extremities exam: Present: normal inspection. Absent: pedal edema Back exam: Present: normal inspection Neurological exam: Present: alert, oriented X3, CN II-XII intact. Absent: motor sensory deficit Psychiatric exam: Present: normal affect, normal mood Skin exam: Present: warm, dry, intact. Absent: cyanosis, diaphoretic Course Vital Signs 09/30/20 18:51 Temperature 99.5 F Pulse Rate 85 Respiratory 20 Rate Blood Pressure 146/77 O2 Sat by Pulse 99 Oximetry EKG Findings - EKG Comments: EKG Findings:: EKG: Normal sinus rhythm, left bundle branch block, rate of 85, MN interval 162, QRS duration 128, QTC 485 Medical Decision Making - Medical Decision Making 65-year-old female end-stage renal disease presenting with generalized weakness, fatigue, and has missed hemodialysis for approximately one week. She is saturating well on room air. She has a chest x-ray showing worsening right lower lobe pneumonia, no fever no white count. She is awake 04.8. Hemoglobin stable for this patient at 8.2. She has a troponin elevation which is chronic. Additionally on exam she does have a right thoracic abdominal shingles rash. She's given a dose of Valtrex. Additionally she has been given cefepime for this pneumonia on x-ray. She will be admitted with nephrology on consult. Case discussed with Dr. Cuadra - Lab Data Result diagrams: 09/30/20 19:02 09/30/20 19:02 Lab Results 09/30/20 09/30/20 09/30/20 Range/Units 19:02 19:02 19:02 WBC 4.8 (3.8-10.6) k/uL RBC 2.40 L (3.80-5.40) m/uL Hgb 8.2 L (11.4-16.0) gm/dL Hct 24.8 L (34.0-46.0) % MCV 103.4 H (80.0-100.0) fL MCH 34.1 (25.0-35.0) pg MCHC 33.0 (31.0-37.0) g/dL RDW 16.5 H (11.5-15.5) % Plt Count 158 (150-450) k/uL MPV 7.1 Neutrophils % 65 % Lymphocytes % 19 % Monocytes % 8 % Eosinophils % 6 % Basophils % 1 % Neutrophils # 3.1 (1.3-7.7) k/uL Lymphocytes # 0.9 L (1.0-4.8) k/uL Monocytes # 0.4 (0-1.0) k/uL Eosinophils # 0.3 (0-0.7) k/uL Basophils # 0.0 (0-0.2) k/uL Hypochromasia Slight Anisocytosis Slight Macrocytosis Moderate PT 10.8 (9.0-12.0) sec INR 1.0 (<1.2) APTT 20.9 L (22.0-30.0) sec Sodium 134 L (137-145) mmol/L Potassium 5.2 H (3.5-5.1) mmol/L Chloride 102 (98-107) mmol/L Carbon Dioxide 27 (22-30) mmol/L Anion Gap 5 mmol/L BUN 52 H (7-17) mg/dL Creatinine 3.67 H (0.52-1.04) mg/dL Est GFR (CKD-EPI)AfAm 14 (>60 ml/min/1.73 sqM) Est GFR (CKD-EPI)NonAf 12 (>60 ml/min/1.73 sqM) Glucose 141 H (74-99) mg/dL Plasma Lactic Acid Jd (0.7-2.0) mmol/L Calcium 8.1 L (8.4-10.2) mg/dL Magnesium 1.5 L (1.6-2.3) mg/dL Total Bilirubin 0.3 (0.2-1.3) mg/dL AST 20 (14-36) U/L ALT 11 (4-34) U/L Alkaline Phosphatase 110 (38-126) U/L Troponin I (0.000-0.034) ng/mL NT-Pro-B Natriuret Pep pg/mL Total Protein 5.9 L (6.3-8.2) g/dL Albumin 3.3 L (3.5-5.0) g/dL Influenza Type A (PCR) (Not Detectd) Influenza Type B (PCR) (Not Detectd) RSV (PCR) (Not Detectd) SARS-CoV-2 (PCR) (Not Detectd) 09/30/20 09/30/20 09/30/20 Range/Units 19:02 19:02 19:02 WBC (3.8-10.6) k/uL RBC (3.80-5.40) m/uL Hgb (11.4-16.0) gm/dL Hct (34.0-46.0) % MCV (80.0-100.0) fL MCH (25.0-35.0) pg MCHC (31.0-37.0) g/dL RDW (11.5-15.5) % Plt Count (150-450) k/uL MPV Neutrophils % % Lymphocytes % % Monocytes % % Eosinophils % % Basophils % % Neutrophils # (1.3-7.7) k/uL Lymphocytes # (1.0-4.8) k/uL Monocytes # (0-1.0) k/uL Eosinophils # (0-0.7) k/uL Basophils # (0-0.2) k/uL Hypochromasia Anisocytosis Macrocytosis PT (9.0-12.0) sec INR (<1.2) APTT (22.0-30.0) sec Sodium (137-145) mmol/L Potassium (3.5-5.1) mmol/L Chloride (98-107) mmol/L Carbon Dioxide (22-30) mmol/L Anion Gap mmol/L BUN (7-17) mg/dL Creatinine (0.52-1.04) mg/dL Est GFR (CKD-EPI)AfAm (>60 ml/min/1.73 sqM) Est GFR (CKD-EPI)NonAf (>60 ml/min/1.73 sqM) Glucose (74-99) mg/dL Plasma Lactic Acid Jd 1.2 (0.7-2.0) mmol/L Calcium (8.4-10.2) mg/dL Magnesium (1.6-2.3) mg/dL Total Bilirubin (0.2-1.3) mg/dL AST (14-36) U/L ALT (4-34) U/L Alkaline Phosphatase (38-126) U/L Troponin I 0.066 H* (0.000-0.034) ng/mL NT-Pro-B Natriuret Pep 62704 pg/mL Total Protein (6.3-8.2) g/dL Albumin (3.5-5.0) g/dL Influenza Type A (PCR) (Not Detectd) Influenza Type B (PCR) (Not Detectd) RSV (PCR) (Not Detectd) SARS-CoV-2 (PCR) (Not Detectd) 09/30/20 Range/Units 19:18 WBC (3.8-10.6) k/uL RBC (3.80-5.40) m/uL Hgb (11.4-16.0) gm/dL Hct (34.0-46.0) % MCV (80.0-100.0) fL MCH (25.0-35.0) pg MCHC (31.0-37.0) g/dL RDW (11.5-15.5) % Plt Count (150-450) k/uL MPV Neutrophils % % Lymphocytes % % Monocytes % % Eosinophils % % Basophils % % Neutrophils # (1.3-7.7) k/uL Lymphocytes # (1.0-4.8) k/uL Monocytes # (0-1.0) k/uL Eosinophils # (0-0.7) k/uL Basophils # (0-0.2) k/uL Hypochromasia Anisocytosis Macrocytosis PT (9.0-12.0) sec INR (<1.2) APTT (22.0-30.0) sec Sodium (137-145) mmol/L Potassium (3.5-5.1) mmol/L Chloride (98-107) mmol/L Carbon Dioxide (22-30) mmol/L Anion Gap mmol/L BUN (7-17) mg/dL Creatinine (0.52-1.04) mg/dL Est GFR (CKD-EPI)AfAm (>60 ml/min/1.73 sqM) Est GFR (CKD-EPI)NonAf (>60 ml/min/1.73 sqM) Glucose (74-99) mg/dL Plasma Lactic Acid Dj (0.7-2.0) mmol/L Calcium (8.4-10.2) mg/dL Magnesium (1.6-2.3) mg/dL Total Bilirubin (0.2-1.3) mg/dL AST (14-36) U/L ALT (4-34) U/L Alkaline Phosphatase (38-126) U/L Troponin I (0.000-0.034) ng/mL NT-Pro-B Natriuret Pep pg/mL Total Protein (6.3-8.2) g/dL Albumin (3.5-5.0) g/dL Influenza Type A (PCR) Not Detected (Not Detectd) Influenza Type B (PCR) Not Detected (Not Detectd) RSV (PCR) Not Detected (Not Detectd) SARS-CoV-2 (PCR) Not Detected (Not Detectd) Disposition Clinical Impression: Pneumonia, ESRD (end stage renal disease) Disposition: ADMITTED IP TO THIS HOSP Condition: Stable Is patient prescribed a controlled substance at d/c from ED?: No Referrals: Cj Campos MD [Primary Care Provider] - 1-2 days Decision to Admit Reason: Admit from EC Decision Date: 09/30/20 Decision Time: 20:15
[2020-09-30 19:29] LABS: Potassium 5.2 mmol/L (3.5-5.1)
[2020-09-30 19:30] LABS: Albumin 3.3 g/dL (3.5-5.0); Calcium 8.1 mg/dL (8.4-10.2); Magnesium 1.5 mg/dL (1.6-2.3); Total Bilirubin 0.3 mg/dL (0.2-1.3); Total Protein 5.9 g/dL (6.3-8.2)
[2020-09-30 19:42] LABS: Partial Thromboplastin Time 20.9 sec (22.0-30.0); Prothrombin Time 10.8 sec (9.0-12.0)
--- NOTE | 2020-09-30 19:44 | XR ---
EXAMINATION TYPE: XR chest 2V DATE OF EXAM: 09/30/2020 COMPARISON: 08/27/2020 HISTORY: Weakness. Short of breath. TECHNIQUE: 2 views FINDINGS: On the lateral view there is some posterior pulmonary consolidation that apparently is in t he right lower lobe. The left lung is relatively clear. There is no heart failure. Mediastinum is nor mal. There are chest leads. There is right-sided central venous catheter with tip in the right atrium . IMPRESSION: There is right lower lobe pneumonia which is probably increased compared to old exam. No heart failure seen.
[2020-09-30] MEDS ORDERED: CEFEPIME 2 GM in SODIUM CHLORIDE 0.9% 100 ML IVPB STA (20:07)
[2020-09-30] MEDS ORDERED: valACYclovir HCL 1,000 MG TABLET PO STA (20:11)
[2020-09-30] MEDS ORDERED: NALOXONE 0.4 MG/ML 1 ML VIAL IV PRN (20:12)
--- NOTE | 2020-10-01 00:30 | P.HPIM ---
History of Present Illness H&P Date: 09/30/20 Patient is a 65-year-old female with an extensive PMH including end-stage renal disease on hemodialysis, type II DM, COPD, hypertension, hyperlipidemia, and history of seizure disorder who presented to the emergency room with complaints of fatigue. Patient reports that her symptoms started roughly a week ago when she felt as though she caught the flu with cough, malaise, myalgias, and decreased exercise tolerance. Patient notes that as a result she missed all her appointments for hemodialysis throughout the week. She notes that her symptoms gradually progressed and thereby she decided to come to the emergency room. She reports chronic cough which recently worsened week ago, with green phlegm. Denied fevers, chills, nausea, vomiting, diarrhea. Also denied chest pain, shortness of breath, headaches, dizziness, or lower extremity edema. Chest x- ray in the emergency room revealed a right lower lobe pneumonia, worse from prior exam. EKG revealed a normal sinus rhythm at 85 bpm with a left bundle branch block. Laboratory evaluation was remarkable for hemoglobin of 8.2 (at baseline), potassium 5.2, BUN 52, creatinine 3.6, troponin 0.066, proBNP 40,700. The patient's influenza, RSV, and COVID-19 PCR were negative. She was given IV antibiotics for pneumonia and is being admitted to the hospital for further management including hemodialysis. Review of Systems Pertinent positives and negatives as discussed in HPI, a complete review of systems was performed and all other systems are negative. Past Medical History Past Medical History: COPD, Diabetes Mellitus, GERD/Reflux, Hyperlipidemia, Hypertension, Osteoarthritis (OA), Pneumonia, Respiratory Disorder, Seizure Disorder, Vascular Disorder Additional Past Medical History / Comment(s): hepatic encephalopathy/chronic liver disease probably d/t fatty liver advancing to chronic liver disease with possible cirrhosis/acute on chronic renal failure/acute on chronic COPD, AMS d/t elevated ammonia levels/metabolic acidosis/ electrolyte disturbances. Other hx: High ammonia levels, chronic liver disease, kidney stones, CKD stage IV, chronic respiratory failure with home O2 at 4L/NC, NIDDM type II, neuropathy bilateral feet, IBS, arthritis in multiple joints, chronic back pain, current problems with weakness, generalized edema. History of Any Multi-Drug Resistant Organisms: None Reported Past Surgical History: Ear Surgery, Hysterectomy, Orthopedic Surgery Additional Past Surgical History / Comment(s): Multiple surgeries/ESWL for kidney stones, bilateral caratid endartectomies, L ankle surgery with metal esteban/pin, R ear surgery for deteriorating eardrum, sinus surgery, colonoscopy. Past Anesthesia/Blood Transfusion Reactions: No Reported Reaction Past Psychological History: Anxiety, Depression Smoking Status: Former smoker Past Alcohol Use History: None Reported Past Drug Use History: Marijuana - Past Family History Mother Family Medical History: Diabetes Mellitus, Hypertension Father Family Medical History: Hypertension Medications and Allergies Home Medications Medication Instructions Recorded Confirmed Type Phenytoin Sodium Extended 100 mg PO TID@0600,1400,2200 11/29/15 09/30/20 History [Dilantin] Folic Acid 1 mg PO DAILY@79907/22/17 09/30/20 History Primidone [Mysoline] 100 mg PO HS@199907/20/18 09/30/20 History Calcium Acetate 2,001 mg PO TID-W/MEALS 09/06/20 09/30/20 History Calcium Acetate [PhosLo] 667 mg PO HS@199909/06/20 09/30/20 History Fluticasone/Vilanterol [Breo 1 puff INHALATION RT-DAILY@79909/06/20 09/30/20 History Ellipta 100-25 Mcg Inhaler] Folic Acid-Vit B Complex-Vit C 1 cap PO DAILY@79909/06/20 09/30/20 History [Nephrocaps] Lidocaine-Prilocaine Cream [Emla 1 applic TOPICAL MOWEFR 09/06/20 09/30/20 History Cream 2.5%/2.5%] Simvastatin [Zocor] 10 mg PO HS@199909/06/20 09/30/20 History traZODone HCL 150 mg PO HS@199909/06/20 09/30/20 History Albuterol Inhaler [Ventolin Hfa 2 puff INHALATION RT-Q6H 09/16/20 09/30/20 History Inhaler] Diff-Stat Probiotic 2 cap PO BID 09/16/20 09/30/20 History Omeprazole 20 mg PO DAILY@0800 09/16/20 09/30/20 History ALPRAZolam [Xanax] 1 mg PO Q12H PRN 09/22/20 09/30/20 History Cefuroxime Axetil [Ceftin] 500 mg PO DAILY@0800 09/22/20 09/30/20 History Furosemide [Lasix] 80 mg PO BID@799,199909/22/20 09/30/20 History Metoprolol Tartrate [Lopressor] 25 mg PO BID@799,199909/22/20 09/30/20 History Montelukast [Singulair] 10 mg PO HS@199909/22/20 09/30/20 History hydrALAZINE HCL [Apresoline] 25 mg PO BID@799,199909/22/20 09/30/20 History traMADol HCl [Ultram] 50 mg PO QID 09/22/20 09/30/20 History Acetaminophen Tab [Tylenol] 650 mg PO Q6HR PRN tab 09/24/20 09/30/20 Rx Aspirin 81 mg PO DAILY chew 09/24/20 09/30/20 Rx Allergies Allergy/AdvReac Type Severity Reaction Status Date / Time Penicillins Allergy Mild Swelling Verified 09/30/20 19:06 Physical Exam Vitals: Vital Signs Temp Pulse Resp BP Pulse Ox 09/30/20 18:51 99.5 F 85 20 146/77 99 Intake and Output 09/30/20 09/30/20 09/30/20 06:59 14:59 22:59 Other: Weight 99.79 kg General: non toxic, no distress, appears at stated age, obese Derm: Right medial aspect antecubital fossa fistula with palpable thrill, no unusual ecchymoses, warm, dry Head: atraumatic, normocephalic, symmetric Eyes: EOMI, no lid lag, anicteric sclera, pupils equal round reactive to light ENT: Nose and ears atraumatic, no thrush, no pharyngeal erythema Neck: No thyromegaly, no cervical lymphadenopathy, trachea midline, supple Mouth: no lip lesion, mucus membranes moist Cardiovascular: S1S2 reg, no murmur, positive posterior tibial pulse bilateral, no edema, capillary refill less than 2 seconds Lungs: CTA bilateral, no rhonchi, no rales , no accessory muscle use Abdominal: soft, nontender to palpation, no guarding, no appreciable organom egaly, normal bowel sounds Ext: no gross muscle atrophy, muscle strength 5 out of 5 in all 4 extremities grossly, no contractures, Neuro: CN II-XI grossly intact, light touch intact all 4 extremities, finger to nose within normal limits, Psych: Alert, oriented, appropriate affect Results CBC & Chem 7: 09/30/20 19:02 09/30/20 19:02 Labs: Abnormal Lab Results - Last 24 Hours (Table) 09/30/20 09/30/20 09/30/20 Range/Units 19:02 19:02 19:02 RBC 2.40 L (3.80-5.40) m/uL Hgb 8.2 L (11.4-16.0) gm/dL Hct 24.8 L (34.0-46.0) % MCV 103.4 H (80.0-100.0) fL RDW 16.5 H (11.5-15.5) % Lymphocytes # 0.9 L (1.0-4.8) k/uL APTT 20.9 L (22.0-30.0) sec Sodium 134 L (137-145) mmol/L Potassium 5.2 H (3.5-5.1) mmol/L BUN 52 H (7-17) mg/dL Creatinine 3.67 H (0.52-1.04) mg/dL Glucose 141 H (74-99) mg/dL Calcium 8.1 L (8.4-10.2) mg/dL Magnesium 1.5 L (1.6-2.3) mg/dL Troponin I (0.000-0.034) ng/mL Total Protein 5.9 L (6.3-8.2) g/dL Albumin 3.3 L (3.5-5.0) g/dL 09/30/20 Range/Units 19:02 RBC (3.80-5.40) m/uL Hgb (11.4-16.0) gm/dL Hct (34.0-46.0) % MCV (80.0-100.0) fL RDW (11.5-15.5) % Lymphocytes # (1.0-4.8) k/uL APTT (22.0-30.0) sec Sodium (137-145) mmol/L Potassium (3.5-5.1) mmol/L BUN (7-17) mg/dL Creatinine (0.52-1.04) mg/dL Glucose (74-99) mg/dL Calcium (8.4-10.2) mg/dL Magnesium (1.6-2.3) mg/dL Troponin I 0.066 H* (0.000-0.034) ng/mL Total Protein (6.3-8.2) g/dL Albumin (3.5-5.0) g/dL Assessment and Plan Plan: Hospital acquired pneumonia -Continue with cefepime 2 g every 8 hourly -F/u blood cultures End-stage renal disease, on hemodialysis -Nephrology consulted for resumption of hemodialysis -Continue to monitor electrolytes Elevated troponin, likely due to renal disease -Cardiac monitoring -Patient denying chest pain, shortness of breath Hypomagnesemia -Replace and monitor Chronic conditions: Type II DM, hypertension, hyperlipidemia, COPD, seizure disorder -Continue with home medications -Insulin sliding scale with blood glucose monitoring -Check A1c DVT prophylaxis -Heparin subq The patient is admitted with an anticipated more than 2 midnight stay for evaluation of pneumonia CODE STATUS: Full Code Discussed with: Patient Anticipated discharge date: 2-[address]: Home A total of 45 minutes was spent on the care of this complex patient more than 50% of the time was spent in counseling and care coordination.
[2020-10-01] MEDS: ALPRAZolam 1 MG TAB PO PRN ×2 (00:58→19:54)
[2020-10-01] MEDS: ACETAMINOPHEN TAB 325 MG TAB PO PRN ×2 (00:58→08:49)
[2020-10-01] MEDS: MAGNESIUM SULFATE-D5W PMX 1 GM in DEXTROSE/WATER 1 100ML.BAG IVPB SCH ×2 (00:59→02:34)
[2020-10-01] MEDS ORDERED: ALBUTEROL NEBULIZED 2.5 MG/3 ML INHALATION SCH (02:00)
[2020-10-01] MEDS ORDERED: ALBUTEROL NEBULIZED 2.5 MG/3 ML INHALATION PRN (03:46)
[2020-10-01] MEDS: PHENYTOIN SODIUM EXTENDED 100 MG CAP PO SCH ×3 (05:58→19:54)
[2020-10-01 07:22] LABS: Glucose,Whole Blood 116 mg/dL (75-99)
[2020-10-01] MEDS: SYMBICORT 80-4.5 MCG INHALER INHALATION SCH ×2 (07:27→21:09)
[2020-10-01] MEDS: ALBUTEROL NEBULIZED 2.5 MG/3 ML INHALATION SCH ×3 (07:27→21:09)
[2020-10-01] MEDS: INSULIN ASPART (NovoLOG) 100 UNIT/ML VIAL SQ SCH ×4 (07:57→22:13)
[2020-10-01] MEDS ORDERED: CEFEPIME 2 GM in SODIUM CHLORIDE 0.9% 100 ML IVPB SCH (08:00)
[2020-10-01] MEDS: FUROSEMIDE 80 MG TAB PO SCH ×2 (08:42→15:45)
[2020-10-01] MEDS: hydrALAZINE HCL 25 MG TAB PO SCH ×2 (08:48→19:55)
[2020-10-01] MEDS: METOPROLOL TARTRATE 25 MG TAB PO SCH ×2 (08:48→19:54)
[2020-10-01] MEDS: HEPARIN SODIUM,PORCINE/PF 5,000 UNIT/0.5 ML SYRINGE SQ SCH ×3 (08:49→23:22)
[2020-10-01] MEDS: FOLIC ACID-VIT B COMPLEX-VIT C 1 CAP PO SCH (08:50)
[2020-10-01] MEDS: ASPIRIN 81 MG PO SCH (08:50)
[2020-10-01] MEDS: AZITHROMYCIN 500 MG TAB PO SCH (10:52)
[2020-10-01] MEDS ORDERED: DARBEPOETIN ALFA 40 MCG/0.4 ML SYRINGE SQ SCH (11:00)
--- NOTE | 2020-10-01 11:02 | P.NPCON ---
History of Present Illness - Reason for Consult end stage renal disease - History of Present Illness Reason for consultation: End-stage renal disease History of present illness: Patient is a 65-year-old female seen in renal consultation for end-stage renal disease. She is maintained on hemodialysis on Saturday schedule. Patient states she missed yesterday's hemodialysis treatment due to not feeling well. She complains of pain due to shingles in her abdomen. Denies chest pain or shortness of breath. Currently on 4 L nasal cannula. No vomiting or diarrhea. Blood pressure stable. No significant fluid overload noted on chest x-ray. She is on antibiotics for possible pneumonia. Patient has long-standing history of diabetes. Vital signs are stable. General: The patient appeared well nourished and normally developed. HEENT: Head exam is unremarkable. Neck is without jugular venous distension. LUNGS: Breath sounds decreased. HEART: Rate and Rhythm are regular. ABDOMEN: Soft, obese. Right-sided shingles noted. EXTREMITITES: Trace edema. Past Medical History Past Medical History: COPD, Diabetes Mellitus, GERD/Reflux, Hyperlipidemia, Hypertension, Osteoarthritis (OA), Pneumonia, Respiratory Disorder, Seizure Disorder, Vascular Disorder Additional Past Medical History / Comment(s): hepatic encephalopathy/chronic liver disease probably d/t fatty liver advancing to chronic liver disease with possible cirrhosis/acute on chronic renal failure/acute on chronic COPD, AMS d/t elevated ammonia levels/metabolic acidosis/ electrolyte disturbances. Other hx: High ammonia levels, chronic liver disease, kidney stones, CKD stage IV, chronic respiratory failure with home O2 at 4L/NC, NIDDM type II, neuropathy bilateral feet, IBS, arthritis in multiple joints, chronic back pain, current problems with weakness, generalized edema. History of Any Multi-Drug Resistant Organisms: None Reported Past Surgical History: Ear Surgery, Hysterectomy, Orthopedic Surgery Additional Past Surgical History / Comment(s): Multiple surgeries/ESWL for kidney stones, bilateral caratid endartectomies, L ankle surgery with metal esteban/pin, R ear surgery for deteriorating eardrum, sinus surgery, colonoscopy. Past Anesthesia/Blood Transfusion Reactions: No Reported Reaction Past Psychological History: Anxiety, Depression Smoking Status: Former smoker Past Alcohol Use History: None Reported Past Drug Use History: Marijuana - Past Family History Mother Family Medical History: Diabetes Mellitus, Hypertension Father Family Medical History: Hypertension Medications and Allergies Home Medications Medication Instructions Recorded Confirmed Type Phenytoin Sodium Extended 100 mg PO TID@0600,1400,2200 11/29/15 09/30/20 History [Dilantin] Folic Acid 1 mg PO DAILY@0800 07/22/17 09/30/20 History Primidone [Mysoline] 100 mg PO HS@199907/20/18 09/30/20 History Calcium Acetate 2,001 mg PO TID-W/MEALS 09/06/20 09/30/20 History Calcium Acetate [PhosLo] 667 mg PO HS@199909/06/20 09/30/20 History Fluticasone/Vilanterol [Breo 1 puff INHALATION RT-DAILY@0809/06/20 09/30/20 H istory Ellipta 100-25 Mcg Inhaler] Folic Acid-Vit B Complex-Vit C 1 cap PO DAILY@0800 09/06/20 09/30/20 History [Nephrocaps] Lidocaine-Prilocaine Cream [Emla 1 applic TOPICAL MOWEFR 09/06/20 09/30/20 History Cream 2.5%/2.5%] Simvastatin [Zocor] 10 mg PO HS@199909/06/20 09/30/20 History traZODone HCL 150 mg PO HS@199909/06/20 09/30/20 History Albuterol Inhaler [Ventolin Hfa 2 puff INHALATION RT-Q6H 09/16/20 09/30/20 History Inhaler] Diff-Stat Probiotic 2 cap PO BID 09/16/20 09/30/20 History Omeprazole 20 mg PO DAILY@0800 09/16/20 09/30/20 History ALPRAZolam [Xanax] 1 mg PO Q12H PRN 09/22/20 09/30/20 History Cefuroxime Axetil [Ceftin] 500 mg PO DAILY@79909/22/20 09/30/20 History Furosemide [Lasix] 80 mg PO BID@799,199909/22/20 09/30/20 History Metoprolol Tartrate [Lopressor] 25 mg PO BID@799,199909/22/20 09/30/20 History Montelukast [Singulair] 10 mg PO HS@199909/22/20 09/30/20 History hydrALAZINE HCL [Apresoline] 25 mg PO BID@0800,199909/22/20 09/30/20 History traMADol HCl [Ultram] 50 mg PO QID 09/22/20 09/30/20 History Acetaminophen Tab [Tylenol] 650 mg PO Q6HR PRN tab 09/24/20 09/30/20 Rx Aspirin 81 mg PO DAILY chew 09/24/20 09/30/20 Rx Allergies Allergy/AdvReac Type Severity Reaction Status Date / Time Penicillins Allergy Mild Swelling Verified 09/30/20 19:06 Physical Exam Vitals: Vital Signs Temp Pulse Pulse Resp BP BP Pulse Ox 10/01/20 07:57 99.1 F 107 H 18 107/66 99 10/01/20 07:32 94 18 10/01/20 07:21 96 18 99 10/01/20 02:00 98.9 F 96 18 133/71 97 09/30/20 21:30 87 20 147/79 99 09/30/20 21:00 88 20 148/85 99 09/30/20 20:30 90 20 144/69 99 09/30/20 20:00 86 20 139/104 99 09/30/20 19:30 91 20 127/57 100 09/30/20 18:51 99.5 F 85 20 146/77 99 Intake and Output 09/30/20 10/01/20 10/01/20 22:59 06:59 14:59 Intake Total 300 Balance 300 Intake: Oral 300 Other: # Voids 1 Weight 99.79 kg Results - Lab Results Most recent lab results Calcium 8.1 mg/dL (8.4-10.2) L 09/30/20 19:02 Magnesium 1.5 mg/dL (1.6-2.3) L 09/30/20 19:02 09/30/20 19:02 09/30/20 19:02 Assessment and Plan Plan: Assessment: 1. End-stage renal disease maintained on hemodialysis on Saturday schedule. 2. Pneumonia maintained on antibiotics. 3. Chronic kidney disease mineral bone disease maintained on PhosLo. 4. Hypertension with chronic kidney disease. Stable. 5. Diabetes mellitus. 6. Hypomagnesemia from poor intake. Replaced. 7. Anemia of chronic kidney disease. Rule out iron deficiency. 8. Shingles. She did receive Valtrex yesterday. 9. Chronic systolic CHF with ejection fraction of 30-35% Plan: Hemodialysis today as she missed yesterday's treatment. Add gabapentin for pain. Check iron studies. Add Aranesp. Strongly advised patient to be compliant with hemodialysis treatments and medications outpatient. Life-threatening risks, including have been discussed with patient multiple times. Thank you for the consultation. I will continue to follow patient with you during her hospital stay.
[2020-10-01 11:51] LABS: Glucose,Whole Blood 110 mg/dL (75-99)
--- NOTE | 2020-10-01 11:54 | P.PN ---
Subjective Progress Note Date: 10/01/20 Patient is doing fairly well today. She continue to have significant pain in her abdomen over the rash area that she describes as burning sensation. Objective - Vital Signs Vital signs: Vital Signs Temp 99.1 F 10/01/20 07:57 Pulse 90 10/01/20 11:41 Resp 18 10/01/20 11:41 BP 107/66 10/01/20 07:57 Pulse Ox 99 10/01/20 07:57 Intake & Output 09/30/20 10/01/20 10/01/20 18:59 06:59 18:59 Intake Total 300 Balance 300 Weight 99.79 kg 99.79 kg Intake: Oral 300 Other: # Voids 1 - Exam General: The patient is awake and alert, in no distress Eye: there is normal conjunctiva bilaterally. Neck: The neck is supple, there is no JVD. Cardiovascular: Normal S1-S2, no S3-S4, no murmurs. Respiratory: Lungs clear to auscultation bilaterally Gastrointestinal: Abdomen is soft, nontender Musculoskeletal: There is no pedal edema. Neurological:. Speech is normal. Skin: Skin is warm and dry . There is an erythematous rash with some crusted lesions in the right lower quadrant of the abdomen extending to the back - Labs CBC & Chem 7: 09/30/20 19:02 09/30/20 19:02 Labs: Abnormal Lab Results - Last 24 Hours (Table) 09/30/20 09/30/20 09/30/20 Range/Units 19:02 19:02 19:02 RBC 2.40 L (3.80-5.40) m/uL Hgb 8.2 L (11.4-16.0) gm/dL Hct 24.8 L (34.0-46.0) % MCV 103.4 H (80.0-100.0) fL RDW 16.5 H (11.5-15.5) % Lymphocytes # 0.9 L (1.0-4.8) k/uL APTT 20.9 L (22.0-30.0) sec Sodium 134 L (137-145) mmol/L Potassium 5.2 H (3.5-5.1) mmol/L BUN 52 H (7-17) mg/dL Creatinine 3.67 H (0.52-1.04) mg/dL Glucose 141 H (74-99) mg/dL POC Glucose (mg/dL) (75-99) mg/dL Calcium 8.1 L (8.4-10.2) mg/dL Magnesium 1.5 L (1.6-2.3) mg/dL Troponin I (0.000-0.034) ng/mL Total Protein 5.9 L (6.3-8.2) g/dL Albumin 3.3 L (3.5-5.0) g/dL 09/30/20 10/01/20 10/01/20 Range/Units 19:02 06:32 07:10 RBC (3.80-5.40) m/uL Hgb (11.4-16.0) gm/dL Hct (34.0-46.0) % MCV (80.0-100.0) fL RDW (11.5-15.5) % Lymphocytes # (1.0-4.8) k/uL APTT (22.0-30.0) sec Sodium (137-145) mmol/L Potassium (3.5-5.1) mmol/L BUN (7-17) mg/dL Creatinine (0.52-1.04) mg/dL Glucose (74-99) mg/dL POC Glucose (mg/dL) 116 H (75-99) mg/dL Calcium (8.4-10.2) mg/dL Magnesium (1.6-2.3) mg/dL Troponin I 0.066 H* 0.061 H* (0.000-0.034) ng/mL Total Protein (6.3-8.2) g/dL Albumin (3.5-5.0) g/dL Assessment and Plan Assessment: This is a 65-year-old female with very complex past medical history noted below who presented to the emergency room with fatigue and a painful rash on her abdomen. Patient was evaluated in the ER and admitted to the hospital for further management of her medical problems noted below. 1. Shingles, involving right lower quadrant of the abdomen dermatomes. Started on Valtrex twice daily. Neurontin 3 times a day for pain. [place] as needed. 2. Suspected hospital-acquired pneumonia, started on IV cefepime and azithromycin. I would obtain pro-calcitonin for further evaluation. Repeat chest x-ray in the morning. 3. Acute systolic and diastolic heart failure exacerbation, continue home dose of Lasix. Awaiting dialysis for fluid removal 4. End-stage renal disease on hemodialysis [facility] nephrology following closely 5. Chronic medical problems, type 2 diabetes, underlying COPD, essential hypertension, hyperlipidemia chronic troponin leak 6. DVT prophylaxis with subcu heparin
[2020-10-01] MEDS: HYDROcodone/APAP 5-325MG 1 EACH TAB PO PRN ×3 (12:07→19:55)
[2020-10-01] MEDS: GABAPENTIN 100 MG CAP PO SCH ×3 (12:07→19:55)
[2020-10-01 12:12] LABS: HCT 26.2 % (37.2-46.3); HGB 7.7 g/dL (12.0-15.0); MCH 32.2 pg (27.0-32.0); MCHC 29.4 g/dL (32.0-37.0); MCV 109.6 fL (80.0-97.0); Mean Platelet Volume 9.8 fL (9.5-12.2); Platelet Count 161 X 10*3/uL (140-440); RBC 2.39 X 10*6/uL (4.10-5.20); RDW 16.5 % (11.5-14.5); WBC 5.02 X 10*3/uL (4.50-10.00)
[2020-10-01 12:32] LABS: African American GFR (CKD) 14.1 (60.0-200.0); Anion Gap 10.2 mmol/L (4.00-12.00); BUN/Creat Ratio 14.59 Ratio (12.00-20.00); Calcium 7.9 mg/dL (8.7-10.3); Carbon Dioxide 27.8 mmol/L (21.6-31.8); Magnesium 2.2 mg/dL (1.5-2.4); Non-African American GFR(CKD) 12.1 (60.0-200.0); Potassium 5.2 mmol/L (3.5-5.5)
[2020-10-01] MEDS: valACYclovir HCL 1,000 MG TABLET PO SCH ×2 (12:42→19:54)
[2020-10-01 13:30] LABS: % Iron Saturation 21.89 (12.00-45.00); Ferritin 394.6 ng/mL (10.0-291.0)
[2020-10-01 17:02] LABS: Glucose,Whole Blood 123 mg/dL (75-99)
[2020-10-01] MEDS: CEFEPIME 1 GM in SODIUM CHLORIDE 0.9% 50 ML IVPB SCH (19:53)
[2020-10-01] MEDS: CALCIUM ACETATE 667 MG TAB PO SCH (19:54)
[2020-10-01] MEDS: MONTELUKAST 10 MG TAB PO SCH (19:54)
[2020-10-01] MEDS: traZODone HCL 50 MG TAB PO SCH (19:54)
[2020-10-01] MEDS: ATORVASTATIN 10 MG TAB PO SCH (19:55)
[2020-10-01] MEDS: PRIMIDONE 50 MG TAB PO SCH (19:55)
[2020-10-01 20:40] LABS: Glucose,Whole Blood 166 mg/dL (75-99)
[2020-10-02] MEDS: ACETAMINOPHEN TAB 325 MG TAB PO PRN (02:33)
[2020-10-02] MEDS: HYDROcodone/APAP 5-325MG 1 EACH TAB PO PRN ×4 (06:10→20:41)
[2020-10-02] MEDS: PHENYTOIN SODIUM EXTENDED 100 MG CAP PO SCH ×3 (06:10→20:41)
[2020-10-02] MEDS: ALBUTEROL NEBULIZED 2.5 MG/3 ML INHALATION SCH ×3 (07:15→20:54)
[2020-10-02 07:16] LABS: Glucose,Whole Blood 102 mg/dL (75-99)
[2020-10-02] MEDS: SYMBICORT 80-4.5 MCG INHALER INHALATION SCH ×2 (07:16→20:54)
[2020-10-02] MEDS: INSULIN ASPART (NovoLOG) 100 UNIT/ML VIAL SQ SCH ×4 (07:58→21:40)
[2020-10-02] MEDS: METOPROLOL TARTRATE 25 MG TAB PO SCH ×2 (08:54→20:40)
[2020-10-02] MEDS: CEFEPIME 1 GM in SODIUM CHLORIDE 0.9% 50 ML IVPB SCH ×2 (08:54→08:55)
[2020-10-02] MEDS: hydrALAZINE HCL 25 MG TAB PO SCH ×2 (08:54→20:39)
[2020-10-02] MEDS: HEPARIN SODIUM,PORCINE/PF 5,000 UNIT/0.5 ML SYRINGE SQ SCH ×3 (08:55→23:32)
[2020-10-02] MEDS: valACYclovir HCL 1,000 MG TABLET PO SCH ×2 (08:55→20:41)
[2020-10-02] MEDS: AZITHROMYCIN 500 MG TAB PO SCH (08:55)
[2020-10-02] MEDS: FUROSEMIDE 80 MG TAB PO SCH ×2 (08:55→16:15)
[2020-10-02] MEDS: FOLIC ACID-VIT B COMPLEX-VIT C 1 CAP PO SCH (08:55)
[2020-10-02] MEDS: GABAPENTIN 100 MG CAP PO SCH ×3 (08:57→20:41)
[2020-10-02] MEDS: ASPIRIN 81 MG PO SCH (08:59)
--- NOTE | 2020-10-02 09:29 | P.PN ---
Subjective Patient is seen in follow-up for end-stage renal disease. Had hemodialysis yesterday. She is tearful as she wants to see her kids. Hemodynamically stable. Vital signs are stable. General: The patient appeared well nourished and normally developed. HEENT: Head exam is unremarkable. Neck is without jugular venous distension. LUNGS: Breath sounds decreased. HEART: Rate and Rhythm are regular. ABDOMEN: Soft, obese. EXTREMITITES: No edema. Objective - Vital Signs Vital signs: Vital Signs Temp 98.2 F 10/02/20 07:47 Pulse 93 10/02/20 07:47 Resp 16 10/02/20 07:47 BP 122/60 10/02/20 07:47 Pulse Ox 99 10/02/20 07:47 Intake & Output 10/01/20 10/02/20 10/02/20 18:59 06:59 18:59 Intake Total 950 Output Total 800 2300 Balance -800 -1350 Intake: Intake, IV Titration 50 Amount Cefepime 1 gm In Sodium 50 Chloride 0.9% 50 ml @ 12. 5 mls/hr IVPB Q12HR BHAVIK Rx#:[id number] Oral 900 Output: Urine 800 Hemodialysis 2300 Other: # Voids 1 - Labs CBC & Chem 7: 10/01/20 06:32 10/01/20 06:32 Labs: Abnormal Lab Results - Last 24 Hours (Table) 10/01/20 10/01/20 10/01/20 Range/Units 06:32 06:32 06:32 RBC 2.39 L (4.10-5.20) X 10*6/uL Hgb 7.7 L (12.0-15.0) g/dL Hct 26.2 L (37.2-46.3) % MCV 109.6 H (80.0-97.0) fL MCH 32.2 H (27.0-32.0) pg MCHC 29.4 L (32.0-37.0) g/dL RDW 16.5 H (11.5-14.5) % BUN 54.0 H (9.0-27.0) mg/dL Creatinine 3.7 H (0.6-1.5) mg/dL Est GFR (CKD-EPI)AfAm 14.1 L (60.0-200.0) Est GFR (CKD-EPI)NonAf 12.1 L (60.0-200.0) POC Glucose (mg/dL) (75-99) mg/dL Calcium 7.9 L (8.7-10.3) mg/dL Ferritin 394.6 H (10.0-291.0) ng/mL Procalcitonin (0.02-0.09) ng/mL 10/01/20 10/01/20 10/01/20 Range/Units 06:32 11:50 16:54 RBC (4.10-5.20) X 10*6/uL Hgb (12.0-15.0) g/dL Hct (37.2-46.3) % MCV (80.0-97.0) fL MCH (27.0-32.0) pg MCHC (32.0-37.0) g/dL RDW (11.5-14.5) % BUN (9.0-27.0) mg/dL Creatinine (0.6-1.5) mg/dL Est GFR (CKD-EPI)AfAm (60.0-200.0) Est GFR (CKD-EPI)NonAf (60.0-200.0) POC Glucose (mg/dL) 110 H 123 H (75-99) mg/dL Calcium (8.7-10.3) mg/dL Ferritin (10.0-291.0) ng/mL Procalcitonin 0.37 H (0.02-0.09) ng/mL 10/01/20 10/02/20 Range/Units 20:38 07:15 RBC (4.10-5.20) X 10*6/uL Hgb (12.0-15.0) g/dL Hct (37.2-46.3) % MCV (80.0-97.0) fL MCH (27.0-32.0) pg MCHC (32.0-37.0) g/dL RDW (11.5-14.5) % BUN (9.0-27.0) mg/dL Creatinine (0.6-1.5) mg/dL Est GFR (CKD-EPI)AfAm (60.0-200.0) Est GFR (CKD-EPI)NonAf (60.0-200.0) POC Glucose (mg/dL) 166 H 102 H (75-99) mg/dL Calcium (8.7-10.3) mg/dL Ferritin (10.0-291.0) ng/mL Procalcitonin (0.02-0.09) ng/mL Microbiology - Last 24 Hours (Table) 09/30/20 19:00 Blood Culture - Preliminary Blood No Growth after 24 hours Assessment and Plan Plan: Assessment: 1. End-stage renal disease maintained on hemodialysis on Saturday schedule. 2. Pneumonia maintained on antibiotics. 3. Chronic kidney disease mineral bone disease maintained on PhosLo. 4. Hypertension with chronic kidney disease. Stable. 5. Diabetes mellitus. 6. Hypomagnesemia from poor intake. Replaced. Better. 7. Anemia of chronic kidney disease. Mild iron deficiency noted. Maintained on Aranesp. 8. Shingles. Maintained on Valtrex. 9. Chronic systolic CHF with ejection fraction of 30-35% Plan: Hemodialysis tomorrow. I will give her dose of IV iron today. Strongly advised patient to be compliant with hemodialysis treatments and medications outpatient. Life-threatening risks, including have been discussed with patient multiple times.
[2020-10-02] MEDS ORDERED: SODIUM FERRIC GLUCONAT-SUCROSE 125 MG in SODIUM CHLORIDE 0.9% 100 ML IVPB ONE (10:00)
[2020-10-02 11:40] LABS: Glucose,Whole Blood 136 mg/dL (75-99)
--- NOTE | 2020-10-02 12:49 | P.PN ---
Subjective Progress Note Date: 10/02/20 Patient is complaining of burning pain on her right side secondary to the shingles rash. She has been taking Valtrex and gabapentin with minimal relief. She did not get her [place] dose this morning. Objective - Vital Signs Vital signs: Vital Signs Temp 98.2 F 10/02/20 07:47 Pulse 100 10/02/20 12:09 Resp 16 10/02/20 07:47 BP 122/60 10/02/20 07:47 Pulse Ox 99 10/02/20 07:47 Intake & Output 10/01/20 10/02/20 10/02/20 18:59 06:59 18:59 Intake Total 950 Output Total 800 2300 Balance -800 -1350 Intake: Intake, IV Titration 50 Amount Cefepime 1 gm In Sodium 50 Chloride 0.9% 50 ml @ 12. 5 mls/hr IVPB Q12HR BHAVIK Rx#:[id number] Oral 900 Output: Urine 800 Hemodialysis 2300 Other: # Voids 1 - Exam General: The patient is awake and alert, in no distress Eye: there is normal conjunctiva bilaterally. Neck: The neck is supple, there is no JVD. Cardiovascular: Normal S1-S2, no S3-S4, no murmurs. Respiratory: Lungs clear to auscultation bilaterally Gastrointestinal: Abdomen is soft, nontender Musculoskeletal: There is no pedal edema. Neurological:. Speech is normal. Skin: Skin is warm and dry . There is an erythematous rash with some crusted lesions in the right lower quadrant of the abdomen extending to the back - Labs CBC & Chem 7: 10/01/20 06:32 10/01/20 06:32 Labs: Abnormal Lab Results - Last 24 Hours (Table) 10/01/20 10/01/20 10/01/20 Range/Units 06:32 06:32 16:54 POC Glucose (mg/dL) 123 H (75-99) mg/dL Ferritin 394.6 H (10.0-291.0) ng/mL Procalcitonin 0.37 H (0.02-0.09) ng/mL 10/01/20 10/02/20 10/02/20 Range/Units 20:38 07:15 11:39 POC Glucose (mg/dL) 166 H 102 H 136 H (75-99) mg/dL Ferritin (10.0-291.0) ng/mL Procalcitonin (0.02-0.09) ng/mL Microbiology - Last 24 Hours (Table) 09/30/20 19:00 Blood Culture - Preliminary Blood No Growth after 24 hours Assessment and Plan Assessment: This is a 65-year-old female with very complex past medical history noted below who presented to the emergency room with fatigue and a painful rash on her abdomen. Patient was evaluated in the ER and admitted to the hospital for further management of her medical problems noted below. 1. Shingles, involving right lower quadrant of the abdomen dermatomes. Started on Valtrex twice daily. Neurontin 3 times a day for pain. [place] as needed. 2. Hospital-acquired pneumonia, with elevated pro calcitonin. started on IV cefepime and azithromycin. 3. Acute systolic and diastolic heart failure exacerbation, continue home dose of Lasix. Awaiting dialysis for fluid removal 4. End-stage renal disease on hemodialysis MWF nephrology following closely 5. Chronic medical problems, type 2 diabetes, underlying COPD, essential hypertension, hyperlipidemia chronic troponin leak 6. DVT prophylaxis with subcu heparin
[2020-10-02 16:36] LABS: Glucose,Whole Blood 139 mg/dL (75-99)
[2020-10-02] MEDS: ATORVASTATIN 10 MG TAB PO SCH (20:39)
[2020-10-02] MEDS: CALCIUM ACETATE 667 MG TAB PO SCH (20:39)
[2020-10-02] MEDS: PRIMIDONE 50 MG TAB PO SCH (20:40)
[2020-10-02] MEDS: traZODone HCL 50 MG TAB PO SCH (20:40)
[2020-10-02] MEDS: MONTELUKAST 10 MG TAB PO SCH (20:40)
[2020-10-02 21:34] LABS: Glucose,Whole Blood 120 mg/dL (75-99)
[2020-10-03] MEDS: PHENYTOIN SODIUM EXTENDED 100 MG CAP PO SCH ×3 (05:49→21:09)
[2020-10-03 07:07] LABS: Glucose,Whole Blood 110 mg/dL (75-99)
[2020-10-03] MEDS: INSULIN ASPART (NovoLOG) 100 UNIT/ML VIAL SQ SCH ×4 (07:21→22:17)
[2020-10-03] MEDS: HEPARIN SODIUM,PORCINE/PF 5,000 UNIT/0.5 ML SYRINGE SQ SCH ×3 (07:32→23:14)
[2020-10-03] MEDS: METOPROLOL TARTRATE 25 MG TAB PO SCH ×2 (07:32→21:04)
[2020-10-03] MEDS: GABAPENTIN 100 MG CAP PO SCH ×3 (07:32→21:09)
[2020-10-03] MEDS: ASPIRIN 81 MG PO SCH (07:32)
[2020-10-03] MEDS: FUROSEMIDE 80 MG TAB PO SCH ×2 (07:33→16:28)
[2020-10-03] MEDS: valACYclovir HCL 1,000 MG TABLET PO SCH ×2 (07:33→21:09)
[2020-10-03] MEDS: FOLIC ACID-VIT B COMPLEX-VIT C 1 CAP PO SCH (07:34)
[2020-10-03] MEDS: hydrALAZINE HCL 25 MG TAB PO SCH ×2 (07:34→21:06)
[2020-10-03] MEDS: AZITHROMYCIN 500 MG TAB PO SCH (07:34)
[2020-10-03] MEDS: CEFEPIME 1 GM in SODIUM CHLORIDE 0.9% 50 ML IVPB SCH (07:41)
[2020-10-03] MEDS: ALBUTEROL NEBULIZED 2.5 MG/3 ML INHALATION SCH ×3 (08:46→19:51)
[2020-10-03] MEDS: SYMBICORT 80-4.5 MCG INHALER INHALATION SCH ×2 (08:49→19:51)
[2020-10-03] MEDS ORDERED: LIDOCAINE-PRILOCAINE 2.5-2.5% CREAM 5 GM TUBE TOPICAL SCH (09:00)
--- NOTE | 2020-10-03 09:55 | P.PN ---
Subjective Progress Note Date: 10/03/20 Patient is doing better today. She reported that her pain and burning sensation is improving. She is scheduled for dialysis today. Objective - Vital Signs Vital signs: Vital Signs Temp 99.6 F 10/03/20 07:51 Pulse 92 10/03/20 08:57 Resp 18 10/03/20 09:49 BP 104/73 10/03/20 07:51 Pulse Ox 100 10/03/20 07:51 Intake & Output 10/02/20 10/03/20 10/03/20 18:59 06:59 18:59 Intake Total 1200 Output Total 800 Balance 400 Intake: Oral 1200 Output: Urine 800 Other: # Voids 1 1 # Bowel Movements 1 1 - Exam General: The patient is awake and alert, in no distress Eye: there is normal conjunctiva bilaterally. Neck: The neck is supple, there is no JVD. Cardiovascular: Normal S1-S2, no S3-S4, no murmurs. Respiratory: Lungs clear to auscultation bilaterally Gastrointestinal: Abdomen is soft, nontender Musculoskeletal: There is no pedal edema. Neurological:. Speech is normal. Skin: Skin is warm and dry . There is an erythematous rash with some crusted lesions in the right lower quadrant of the abdomen extending to the back - Labs CBC & Chem 7: 10/01/20 06:32 10/01/20 06:32 Labs: Abnormal Lab Results - Last 24 Hours (Table) 10/02/20 10/02/20 10/02/20 Range/Units 11:39 16:33 21:33 POC Glucose (mg/dL) 136 H 139 H 120 H (75-99) mg/dL 10/03/20 Range/Units 07:06 POC Glucose (mg/dL) 110 H (75-99) mg/dL Microbiology - Last 24 Hours (Table) 09/30/20 19:00 Blood Culture - Preliminary Blood No Growth after 48 hours Assessment and Plan Assessment: This is a 65-year-old female with very complex past medical history noted below who presented to the emergency room with fatigue and a painful rash on her abdomen. Patient was evaluated in the ER and admitted to the hospital for further management of her medical problems noted below. 1. Shingles, involving right lower quadrant of the abdomen dermatomes. Started on Valtrex twice daily day# 3/. Neurontin 3 times a day for pain. [place] as needed. 2. Hospital-acquired pneumonia, with elevated pro calcitonin. started on IV cefepime and azithromycin. day# 3/5 3. Acute systolic and diastolic heart failure exacerbation, continue home dose of Lasix. Awaiting dialysis for fluid removal 4. End-stage renal disease on hemodialysis F nephrology following closely 5. Chronic medical problems, type 2 diabetes, underlying COPD, essential hyp ertension, hyperlipidemia chronic troponin leak 6. DVT prophylaxis with subcu heparin Today, I reviewed her medication list and lab work results. Awaiting dialysis today. Repeat lab work in the morning. Anticipate discharge back to [facility] tomorrow
[2020-10-03] MEDS: ALPRAZolam 1 MG TAB PO PRN ×2 (10:30→21:03)
[2020-10-03 11:48] LABS: Glucose,Whole Blood 106 mg/dL (75-99)
--- NOTE | 2020-10-03 12:18 | P.PN ---
Subjective Patient is seen in follow-up for end-stage renal disease. Currently resting in bed. Has been intermittently confused. Being treated for shingles. Scheduled for dialysis today. Vital signs are stable. General: The patient appeared well nourished and normally developed. HEENT: Head exam is unremarkable. Neck is without jugular venous distension. LUNGS: Breath sounds decreased. HEART: Rate and Rhythm are regular. ABDOMEN: Soft, obese. EXTREMITITES: No edema. Objective - Vital Signs Vital signs: Vital Signs Temp 99.6 F 10/03/20 07:51 Pulse 72 10/03/20 12:05 Resp 18 10/03/20 09:49 BP 100/67 10/03/20 10:38 Pulse Ox 100 10/03/20 07:51 Intake & Output 10/02/20 10/03/20 10/03/20 18:59 06:59 18:59 Intake Total 1200 Output Total 800 Balance 400 Intake: Oral 1200 Output: Urine 800 Other: # Voids 1 1 # Bowel Movements 1 1 - Labs CBC & Chem 7: 10/01/20 06:32 10/01/20 06:32 Labs: Abnormal Lab Results - Last 24 Hours (Table) 10/02/20 10/02/20 10/03/20 Range/Units 16:33 21:33 07:06 POC Glucose (mg/dL) 139 H 120 H 110 H (75-99) mg/dL 10/03/20 Range/Units 11:47 POC Glucose (mg/dL) 106 H (75-99) mg/dL Microbiology - Last 24 Hours (Table) 09/30/20 19:00 Blood Culture - Preliminary Blood No Growth after 48 hours Assessment and Plan Plan: Assessment: 1. End-stage renal disease maintained on hemodialysis on Saturday schedule. 2. Pneumonia maintained on antibiotics. 3. Chronic kidney disease mineral bone disease maintained on PhosLo. 4. Hypertension with chronic kidney disease. Stable. 5. Diabetes mellitus. 6. Hypomagnesemia from poor intake. Replaced. Better. 7. Anemia of chronic kidney disease. Mild iron deficiency noted. Status post IV iron. Maintained on Aranesp. 8. Shingles. Maintained on Valtrex. Also on gabapentin for pain. 9. Chronic systolic CHF with ejection fraction of 30-35% Plan: Hemodialysis today. Strongly advised patient to be compliant with hemodialysis treatments and medications outpatient. Life-threatening risks, including have been d iscussed with patient multiple times.
[2020-10-03 16:38] LABS: Glucose,Whole Blood 110 mg/dL (75-99)
[2020-10-03] MEDS ORDERED: CEFEPIME 1 GM in SODIUM CHLORIDE 0.9% 50 ML IVPB SCH (21:00)
[2020-10-03] MEDS: traZODone HCL 50 MG TAB PO SCH (21:03)
[2020-10-03] MEDS: PRIMIDONE 50 MG TAB PO SCH (21:04)
[2020-10-03] MEDS: MONTELUKAST 10 MG TAB PO SCH (21:04)
[2020-10-03] MEDS: ATORVASTATIN 10 MG TAB PO SCH (21:05)
[2020-10-03] MEDS: ACETAMINOPHEN TAB 325 MG TAB PO PRN (21:05)
[2020-10-03] MEDS: CALCIUM ACETATE 667 MG TAB PO SCH (21:05)
[2020-10-04] MEDS: HYDROcodone/APAP 5-325MG 1 EACH TAB PO PRN ×2 (05:50→09:27)
[2020-10-04] MEDS: PHENYTOIN SODIUM EXTENDED 100 MG CAP PO SCH ×2 (05:50→09:30)
[2020-10-04] MEDS: SYMBICORT 80-4.5 MCG INHALER INHALATION SCH (07:22)
[2020-10-04] MEDS: ALBUTEROL NEBULIZED 2.5 MG/3 ML INHALATION SCH ×2 (07:22→11:54)
[2020-10-04 07:32] LABS: Glucose,Whole Blood 126 mg/dL (75-99)
[2020-10-04] MEDS: ASPIRIN 81 MG PO SCH (09:28)
[2020-10-04] MEDS: FOLIC ACID-VIT B COMPLEX-VIT C 1 CAP PO SCH (09:28)
[2020-10-04] MEDS: GABAPENTIN 100 MG CAP PO SCH (09:28)
[2020-10-04] MEDS: AZITHROMYCIN 500 MG TAB PO SCH (09:29)
[2020-10-04] MEDS: FUROSEMIDE 80 MG TAB PO SCH (09:29)
[2020-10-04] MEDS: METOPROLOL TARTRATE 25 MG TAB PO SCH (09:29)
[2020-10-04] MEDS: valACYclovir HCL 1,000 MG TABLET PO SCH (09:29)
[2020-10-04] MEDS: hydrALAZINE HCL 25 MG TAB PO SCH (09:29)
[2020-10-04] MEDS: HEPARIN SODIUM,PORCINE/PF 5,000 UNIT/0.5 ML SYRINGE SQ SCH (09:30)
--- NOTE | 2020-10-04 09:47 | P.DS ---
Providers Date of admission: 10/01/20 01:30 Expected date of discharge: 10/04/20 Attending physician: Vy Cuadra MD Consults: 09/30/20 20:13 Consult Physician Routine Consulting Provider: Kaia Gunderson Consult Reason/Comments: ESRD Do you want consulting provider notified?: Yes Primary care physician: Cj Campos MD Hospital Course: This is a 65-year-old female with very complex past medical history noted below who presented to the emergency room with fatigue and a painful rash on her abdomen. Patient was evaluated in the ER and admitted to the hospital for further management of her medical problems noted below. 1. Shingles, involving right lower quadrant of the abdomen dermatomes. Started on Valtrex twice daily day# 4/7. Neurontin 3 times a day for pain. [place] as needed. 2. Hospital-acquired pneumonia, with elevated pro calcitonin. started on IV cefepime and azithromycin. He finished antibiotic course during this hospital stay 3. Acute systolic and diastolic heart failure exacerbation, improved significantly with dialysis. continue home dose of Lasix. Repeat BMP showed significant improvement 4. End-stage renal disease on hemodialysis MWF 5. Chronic medical problems, type 2 diabetes, underlying COPD, essential hypertension, hyperlipidemia chronic troponin leak Patient will be discharged back to halfway facility in a stable condition. Patient Condition at Discharge: Stable Plan - Discharge Summary Discharge Rx Participant: No New Discharge Prescriptions: New Atorvastatin [Lipitor] 10 mg PO HS@2000 tab HYDROcodone/APAP 5-325MG [[place] 5-325] 1 each PO Q6HR PRN #12 tab PRN Reason: Pain Darbepoetin Scott [Aranesp] 40 mcg SQ Q7D syringe Gabapentin [Neurontin] 100 mg PO TID 3 Days #9 cap valACYclovir HCL [Valtrex] 1,000 mg PO BID 4 Days #8 tablet Continue Phenytoin Sodium Extended [Dilantin] 100 mg PO TID@0600,1400,2200 Primidone [Mysoline] 100 mg PO HS@2000 traZODone HCL 150 mg PO HS@2000 Lidocaine-Prilocaine Cream [Emla Cream 2.5%/2.5%] 1 applic TOPICAL MOWEFR Folic Acid-Vit B Complex-Vit C [Nephrocaps] 1 cap PO DAILY@0800 Calcium Acetate 2,001 mg PO TID-W/MEALS Albuterol Inhaler [Ventolin Hfa Inhaler] 2 puff INHALATION RT-Q6H Furosemide [Lasix] 80 mg PO BID@799,1999 Metoprolol Tartrate [Lopressor] 25 mg PO BID@799,1999 ALPRAZolam [Xanax] 1 mg PO Q12H PRN 3 Days #6 tab PRN Reason: Anxiety Calcium Acetate [PhosLo] 667 mg PO HS@1999 Fluticasone/Vilanterol [Breo Ellipta 100-25 Mcg Inhaler] 1 puff INHALATION RT-DAILY@0800 Omeprazole 20 mg PO DAILY@0800 Diff-Stat Probiotic 2 cap PO BID Montelukast [Singulair] 10 mg PO HS@1999 hydrALAZINE HCL [Apresoline] 25 mg PO BID@799,1999 Aspirin 81 mg PO DAILY chew Discontinued Folic Acid 1 mg PO DAILY@0800 Simvastatin [Zocor] 10 mg PO HS@1999 traMADol HCl [Ultram] 50 mg PO QID Cefuroxime Axetil [Ceftin] 500 mg PO DAILY@0800 Acetaminophen Tab [Tylenol] 650 mg PO Q6HR PRN tab PRN Reason: Mild Pain Or Fever > 100.5 Discharge Medication List Phenytoin Sodium Extended [Dilantin] 100 mg PO TID@0600,1400,2200 11/29/15 [History] Primidone [Mysoline] 100 mg PO HS@199907/20/18 [History] Calcium Acetate 2,001 mg PO TID-W/MEALS 09/06/20 [History] Calcium Acetate [PhosLo] 667 mg PO HS@199909/06/20 [History] Fluticasone/Vilanterol [Breo Ellipta 100-25 Mcg Inhaler] 1 puff INHALATION RT- DAILY@79909/06/20 [History] Folic Acid-Vit B Complex-Vit C [Nephrocaps] 1 cap PO DAILY@0809/06/20 [History] Lidocaine-Prilocaine Cream [Emla Cream 2.5%/2.5%] 1 applic TOPICAL MOWEFR 09/06/20 [History] traZODone HCL 150 mg PO HS@199909/06/20 [History] Albuterol Inhaler [Ventolin Hfa Inhaler] 2 puff INHALATION RT-Q6H 09/16/20 [History] Diff-Stat Probiotic 2 cap PO BID 09/16/20 [History] Omeprazole 20 mg PO DAILY@0800 09/16/20 [History] Furosemide [Lasix] 80 mg PO BID@799,199909/22/20 [History] Metoprolol Tartrate [Lopressor] 25 mg PO BID@799,199909/22/20 [History] Montelukast [Singulair] 10 mg PO HS@199909/22/20 [History] hydrALAZINE HCL [Apresoline] 25 mg PO BID@799,199909/22/20 [History] Aspirin 81 mg PO DAILY chew 09/24/20 [Rx] ALPRAZolam [Xanax] 1 mg PO Q12H PRN 3 Days #6 tab 10/04/20 [Rx] Atorvastatin [Lipitor] 10 mg PO HS@1999 tab 10/04/20 [Rx] Darbepoetin Scott [Aranesp] 40 mcg SQ Q7D syringe 10/04/20 [Rx] Gabapentin [Neurontin] 100 mg PO TID 3 Days #9 cap 10/04/20 [Rx] HYDROcodone/APAP 5-325MG [[place] 5-325] 1 each PO Q6HR PRN #12 tab 10/04/20 [Rx] valACYclovir HCL [Valtrex] 1,000 mg PO BID 4 Days #8 tablet 10/04/20 [Rx] Follow up Appointment(s)/Referral(s): jC Campos MD [Primary Care Provider] - 1-2 days Discharge Disposition: TRANSFER TO SNF/ECF
[2020-10-04 10:58] VITALS: RESP 16
[2020-10-04 11:19] LABS: Glucose,Whole Blood 126 mg/dL (75-99)
[2020-10-04] MEDS: INSULIN ASPART (NovoLOG) 100 UNIT/ML VIAL SQ SCH ×2 (11:51→11:53)
[2020-10-04 12:18] LABS: African American GFR (CKD) 17.4 (60.0-200.0); Anion Gap 14.1 mmol/L (4.00-12.00); BUN/Creat Ratio 10.97 Ratio (12.00-20.00); Calcium 8.2 mg/dL (8.7-10.3); Carbon Dioxide 23.9 mmol/L (21.6-31.8); Phosphorus 3.9 mg/dL (2.4-5.1); Potassium 4.4 mmol/L (3.5-5.5)
--- NOTE | 2020-10-04 14:02 | P.PN ---
Subjective Patient is seen in follow-up for end-stage renal disease. Currently resting in bed. Has been intermittently confused. Being treated for shingles. Pain better. Potential discharge back to [facility] today. Vital signs are stable. General: The patient appeared well nourished and normally developed. HEENT: Head exam is unremarkable. Neck is without jugular venous distension. LUNGS: Breath sounds decreased. HEART: Rate and Rhythm are regular. ABDOMEN: Soft, nontender. Obese. EXTREMITITES: No edema. Objective - Vital Signs Vital signs: Vital Signs Temp 97.9 F 10/04/20 07:57 Pulse 88 10/04/20 12:05 Resp 16 10/04/20 08:00 BP 132/81 10/04/20 07:57 Pulse Ox 100 10/04/20 07:57 Intake & Output 10/03/20 10/04/20 10/04/20 18:59 06:59 18:59 Intake Total 50 1250 Output Total 1500 Balance 50 -250 Intake: Intake, IV Titration 50 50 Amount Cefepime 1 gm In Sodium 50 Chloride 0.9% 50 ml @ 12. 5 mls/hr IVPB Q12HR [facility] Rx#:[id number] Cefepime 1 gm In Sodium 50 Chloride 0.9% 50 ml @ 12. 5 mls/hr IVPB Q24H [facility] Rx #:[id number] Oral 1200 Output: Hemodialysis 1500 Other: Voiding Method Bedside Commode # Voids 1 2 # Bowel Movements 1 - Labs CBC & Chem 7: 10/01/20 06:32 10/04/20 05:58 Labs: Abnormal Lab Results - Last 24 Hours (Table) 10/03/20 10/04/20 10/04/20 Range/Units 16:37 05:58 07:30 Anion Gap 14.10 H (4.00-12.00) mmol/L BUN 34.0 H (9.0-27.0) mg/dL Creatinine 3.1 H (0.6-1.5) mg/dL Est GFR (CKD-EPI)AfAm 17.4 L (60.0-200.0) Est GFR (CKD-EPI)NonAf 15.0 L (60.0-200.0) BUN/Creatinine Ratio 10.97 L (12.00-20.00) Ratio POC Glucose (mg/dL) 110 H 126 H (75-99) mg/dL Calcium 8.2 L (8.7-10.3) mg/dL 10/04/20 Range/Units 11:18 Anion Gap (4.00-12.00) mmol/L BUN (9.0-27.0) mg/dL Creatinine (0.6-1.5) mg/dL Est GFR (CKD-EPI)AfAm (60.0-200.0) Est GFR (CKD-EPI)NonAf (60.0-200.0) BUN/Creatinine Ratio (12.00-20.00) Ratio POC Glucose (mg/dL) 126 H (75-99) mg/dL Calcium (8.7-10.3) mg/dL Microbiology - Last 24 Hours (Table) 09/30/20 19:00 Blood Culture - Preliminary Blood No Growth after 72 hours Assessment and Plan Plan: Assessment: 1. End-stage renal disease maintained on hemodialysis on Saturday schedule. 2. Pneumonia maintained on antibiotics. 3. Chronic kidney disease mineral bone disease maintained on PhosLo. Phosphoru s normal. 4. Hypertension with chronic kidney disease. Stable. 5. Diabetes mellitus. 6. Hypomagnesemia from poor intake. Replaced. Better. 7. Anemia of chronic kidney disease. Mild iron deficiency noted. Status post IV iron. Maintained on Aranesp. 8. Shingles. Maintained on Valtrex. Also on gabapentin for pain. 9. Chronic systolic CHF with ejection fraction of 30-35% Plan: Hemodialysis tomorrow. Strongly advised patient to be compliant with hemodialysis treatments and medications outpatient. Life-threatening risks, including have been discussed with patient multiple times.
[2020-10-04 14:33] VITALS: BP 142/66; PULSE 81; TEMP 98.4
== END 2020-10-04 15:17 | DRG 193 ==
LOC: EC 18:39 → 4SSUR 20:12 → OBSVTOIN 10-01 01:30
PROVIDERS: ADMIT Internal Medicine; ATTEND Internal Medicine
PROC: 5A1D70Z Performance of Urinary Filtration, Intermittent, Less than 6 Hours Per Day (ICD-10-PCS; principal; 2020-10-01)
PROC: 5A0935A Assistance with Respiratory Ventilation, Less than 24 Consecutive Hours, High Flow/Velocity Cannula (ICD-10-PCS; 2020-10-03)
DX: J18.9 Pneumonia, unspecified organism (principal); N18.6 End stage renal disease; I50.43 Acute on chronic combined systolic (congestive) and diastolic (congestive) heart failure; I13.2 Hypertensive heart and chronic kidney disease with heart failure and with stage 5 chronic kidney disease, or end stage renal disease; J44.0 Chronic obstructive pulmonary disease with (acute) lower respiratory infection; J96.10 Chronic respiratory failure, unspecified whether with hypoxia or hypercapnia; E11.22 Type 2 diabetes mellitus with diabetic chronic kidney disease; K72.90 Hepatic failure, unspecified without coma; Z20.822 Contact with and (suspected) exposure to COVID-19; G40.909 Epilepsy, unspecified, not intractable, without status epilepticus; Z99.2 Dependence on renal dialysis; R62.7 Adult failure to thrive; B02.9 Zoster without complications; I44.7 Left bundle-branch block, unspecified; Y95 Nosocomial condition; D63.1 Anemia in chronic kidney disease; E61.1 Iron deficiency; K76.0 Fatty (change of) liver, not elsewhere classified; K21.9 Gastro-esophageal reflux disease without esophagitis; M89.8X9 Other specified disorders of bone, unspecified site; E66.9 Obesity, unspecified; K58.9 Irritable bowel syndrome, unspecified; E78.5 Hyperlipidemia, unspecified; G89.29 Other chronic pain; M54.9 Dorsalgia, unspecified; M19.90 Unspecified osteoarthritis, unspecified site; F32.9 Major depressive disorder, single episode, unspecified; F41.9 Anxiety disorder, unspecified; Z68.37 Body mass index [BMI] 37.0-37.9, adult; Z90.710 Acquired absence of both cervix and uterus; Z88.0 Allergy status to penicillin; Z79.899 Other long term (current) drug therapy; Z79.82 Long term (current) use of aspirin; Z79.84 Long term (current) use of oral hypoglycemic drugs; Z87.442 Personal history of urinary calculi; Z87.891 Personal history of nicotine dependence; Z82.49 Family history of ischemic heart disease and other diseases of the circulatory system; Z83.3 Family history of diabetes mellitus; R77.8 Other specified abnormalities of plasma proteins
CPT/HCPCS: 36410; 71046; 76937; 80048; 80053; 82728; 83036; 83540; 83550; 83605; 83735; 83880; 84100; 84145; 84484; 85025; 85027; 85610; 85730; 87040; 87636; 90935; 93005; 94640; 94760; 99285

== ENCOUNTER 2020-10-10 21:55 | Emergency (ER) | payer MEDICARE, OTHER ==
[2020-10-10 22:03] VITALS: BP 117/61; PULSE 98; RESP 18; TEMP 98.9
[2020-10-10] MEDS ORDERED: HYDROcodone/APAP 7.5-325MG 1 EACH TAB PO ONE (23:06)
[2020-10-10] MEDS ORDERED: IBUPROFEN 400 MG TAB PO STA (23:06)
--- NOTE | 2020-10-10 23:27 | ED ---
General Adult HPI - General Chief complaint: Recheck/Abnormal Lab/Rx Stated complaint: Pain Time Seen by Provider: 10/10/20 22:24 Source: patient, EMS Mode of arrival: EMS - History of Present Illness Initial comments: 's patient is 65-year-old woman [facility] to be evaluated for pain to the right side of the abdomen. Patient states she was told she had some kind of rash. alf paperwork reveals diagnosis of shingles. Patient denies other complaints, she states her "skin just hurts." -: days(s) Location: back, abdomen Quality: burning Consistency: constant Improves with: none Worsens with: none - Related Data Home Medications Medication Instructions Recorded Confirmed Phenytoin Sodium Extended 100 mg PO TID@0600,1400,2200 11/29/15 10/10/20 [Dilantin] Primidone [Mysoline] 100 mg PO HS@199907/20/18 10/10/20 Calcium Acetate 2,001 mg PO TID-W/MEALS 09/06/20 10/10/20 Calcium Acetate [PhosLo] 667 mg PO HS@199909/06/20 10/10/20 Fluticasone/Vilanterol [Breo 1 puff INHALATION RT-DAILY@79909/06/20 10/10/20 Ellipta 100-25 Mcg Inhaler] Folic Acid-Vit B Complex-Vit C 1 cap PO DAILY@0800 09/06/20 10/10/20 [Nephrocaps] Lidocaine-Prilocaine Cream [Emla 1 applic TOPICAL MOWEFR 09/06/20 10/10/20 Cream 2.5%/2.5%] traZODone HCL 150 mg PO HS@199909/06/20 10/10/20 Albuterol Inhaler [Ventolin Hfa 2 puff INHALATION RT-Q6H 09/16/20 10/10/20 Inhaler] Diff-Stat Probiotic 2 cap PO BID 09/16/20 10/10/20 Omeprazole 20 mg PO DAILY@0800 09/16/20 10/10/20 Furosemide [Lasix] 80 mg PO BID@08,199909/22/20 10/10/20 Metoprolol Tartrate [Lopressor] 25 mg PO BID@08,199909/22/20 10/10/20 Montelukast [Singulair] 10 mg PO HS@199909/22/20 10/10/20 hydrALAZINE HCL [Apresoline] 25 mg PO Q8H 09/22/20 10/10/20 ALPRAZolam [Xanax] 1 mg PO Q8H PRN 10/10/20 10/10/20 Previous Rx's Medication Instructions Recorded Aspirin 81 mg PO DAILY chew 09/24/20 Atorvastatin [Lipitor] 10 mg PO HS@1999 tab 10/04/20 Gabapentin [Neurontin] 100 mg PO TID 3 Days #9 cap 10/04/20 HYDROcodone/APAP 5-325MG [[place] 1 each PO Q6HR PRN #12 tab 10/04/20 5-325] HYDROcodone/APAP 5-325MG [[place] 1 tab PO Q6HR PRN 3 Days #12 tab 10/11/20 5-325] Allergies Allergy/AdvReac Type Severity Reaction Status Date / Time Penicillins Allergy Mild Swelling Verified 10/10/20 23:18 Review of Systems ROS Statement: Those systems with pertinent positive or pertinent negative responses have been documented in the HPI. ROS Other: All systems not noted in ROS Statement are negative. Respiratory: Denies: cough, dyspnea Cardiovascular: Denies: chest pain, palpitations Gastrointestinal: Reports: as per HPI, abdominal pain. Denies: nausea, vomiting, diarrhea Skin: Reports: as per HPI, rash Neurological: Denies: weakness, numbness Past Medical History Past Medical History: COPD, Diabetes Mellitus, GERD/Reflux, Hyperlipidemia, Hypertension, Osteoarthritis (OA), Pneumonia, Respiratory Disorder, Seizure Disorder, Vascular Disorder Additional Past Medical History / Comment(s): hepatic encephalopathy/chronic liver disease probably d/t fatty liver advancing to chronic liver disease with possible cirrhosis/acute on chronic renal failure/acute on chronic COPD, AMS d/t elevated ammonia levels/metabolic acidosis/ electrolyte disturbances. Other hx: High ammonia levels, chronic liver disease, kidney stones, CKD stage IV, chronic respiratory failure with home O2 at 4L/NC, NIDDM type II, neuropathy bilateral feet, IBS, arthritis in multiple joints, chronic back pain, current problems with weakness, generalized edema. History of Any Multi-Drug Resistant Organisms: None Reported Past Surgical History: Ear Surgery, Hysterectomy, Orthopedic Surgery Additional Past Surgical History / Comment(s): Multiple surgeries/ESWL for kidney stones, bilateral caratid endartectomies, L ankle surgery with metal esteban/pin, R ear surgery for deteriorating eardrum, sinus surgery, colonoscopy. Past Anesthesia/Blood Transfusion Reactions: No Reported Reaction Past Psychological History: Anxiety, Depression Smoking Status: Former smoker Past Alcohol Use History: None Reported Past Drug Use History: Marijuana - Past Family History Mother Family Medical History: Diabetes Mellitus, Hypertension Father Family Medical History: Hypertension General Exam General appearance: alert, in no apparent distress Head exam: Present: atraumatic, normocephalic Eye exam: Present: normal appearance. Absent: scleral icterus, conjunctival injection Respiratory exam: Present: normal lung sounds bilaterally. Absent: respiratory distress, wheezes, rales, rhonchi, stridor Cardiovascular Exam: Present: regular rate, normal rhythm, normal heart sounds. Absent: systolic murmur, diastolic murmur, rubs, gallop GI/Abdominal exam: Present: soft. Absent: distended, tenderness, guarding, rebound, rigid, mass Extremities exam: Present: normal inspection, normal capillary refill. Absent: pedal edema, calf tenderness Back exam: Present: normal inspection. Absent: CVA tenderness (R), CVA tenderness (L) Neurological exam: Present: alert Skin exam: Present: warm, dry, intact, other (Patient has a rash to the right back/abdomen in a dermatomal distribution, consistent with shingles) Course Vital Signs 10/10/20 21:59 Temperature 98.9 F Pulse Rate 98 Respiratory 18 Rate Blood Pressure 117/61 O2 Sat by Pulse 97 Oximetry EKG Findings - EKG Comments: EKG Findings:: Possible old anterior infarct. - EKG Results: EKG: interpreted by FADIA, sinus rhythm (Rate 72 bpm), normal axis, normal ST/T Medical Decision Making - Lab Data Result diagrams: 10/10/20 23:42 10/10/20 23:42 Lab Results 10/10/20 10/10/20 Range/Units 23:42 23:42 WBC 4.7 (3.8-10.6) k/uL RBC 2.26 L (3.80-5.40) m/uL Hgb 8.0 L (11.4-16.0) gm/dL Hct 24.3 L (34.0-46.0) % MCV 107.5 H (80.0-100.0) fL MCH 35.6 H (25.0-35.0) pg MCHC 33.1 (31.0-37.0) g/dL RDW 18.7 H (11.5-15.5) % Plt Count 207 (150-450) k/uL MPV 7.2 Hypochromasia Slight Anisocytosis Slight Macrocytosis Marked A Sodium 136 L (137-145) mmol/L Potassium 4.3 (3.5-5.1) mmol/L Chloride 97 L (98-107) mmol/L Carbon Dioxide 35 H (22-30) mmol/L Anion Gap 4 mmol/L BUN 26 H (7-17) mg/dL Creatinine 2.65 H (0.52-1.04) mg/dL Est GFR (CKD-EPI)AfAm 21 (>60 ml/min/1.73 sqM) Est GFR (CKD-EPI)NonAf 18 (>60 ml/min/1.73 sqM) Glucose 76 (74-99) mg/dL Calcium 8.5 (8.4-10.2) mg/dL Disposition Clinical Impression: Herpes zoster Disposition: HOME SELF-CARE Condition: Fair Instructions (If sedation given, give patient instructions): Shingles (ED) Prescriptions: HYDROcodone/APAP 5-325MG [[place] 5-325] 1 tab PO Q6HR PRN 3 Days #12 tab PRN Reason: Pain Is patient prescribed a controlled substance at d/c from ED?: No Referrals: Cj Campos MD [Primary Care Provider] - 1-2 days
[2020-10-10 23:55] LABS: Anisocytosis Slight; Basophils % (A) 1 %; Eosinophils # (A) 0.1 k/uL (0-0.7); Eosinophils % (A) 3 %; HCT 24.3 % (34.0-46.0); Hypochromasia Slight; Lymphocytes # (A) 1.3 k/uL (1.0-4.8); Lymphocytes % (A) 28 %; MCH 35.6 pg (25.0-35.0); MCHC 33.1 g/dL (31.0-37.0); MCV 107.5 fL (80.0-100.0); Macrocytosis Marked; Mean Platelet Volume 7.2; Monocytes # (A) 0.3 k/uL (0-1.0); Monocytes % (A) 7 %; Neutrophils # (A) 2.8 k/uL (1.3-7.7); Neutrophils % (A) 59 %; Platelet Count 207 k/uL (150-450); RBC 2.26 m/uL (3.80-5.40); RDW 18.7 % (11.5-15.5); WBC 4.7 k/uL (3.8-10.6)
[2020-10-11 00:07] LABS: Calcium 8.5 mg/dL (8.4-10.2); Potassium 4.3 mmol/L (3.5-5.1)
[2020-10-11 01:28] LABS: Anisocytosis (M) Present
[2020-10-11 01:29] LABS: Polychromasia Present
[2020-10-11 01:38] LABS: Basophilic Stippling Present
== END 2020-10-11 02:21 | disposition home or self-care (01) ==
LOC: EC 21:55
DX: B02.9 Zoster without complications (principal); M54.9 Dorsalgia, unspecified; R10.9 Unspecified abdominal pain; J44.9 Chronic obstructive pulmonary disease, unspecified; E78.5 Hyperlipidemia, unspecified; K21.9 Gastro-esophageal reflux disease without esophagitis; M19.90 Unspecified osteoarthritis, unspecified site; G40.909 Epilepsy, unspecified, not intractable, without status epilepticus; E11.22 Type 2 diabetes mellitus with diabetic chronic kidney disease; I12.9 Hypertensive chronic kidney disease with stage 1 through stage 4 chronic kidney disease, or unspecified chronic kidney disease; K58.9 Irritable bowel syndrome, unspecified; N18.4 Chronic kidney disease, stage 4 (severe); E11.40 Type 2 diabetes mellitus with diabetic neuropathy, unspecified; F41.9 Anxiety disorder, unspecified; F32.9 Major depressive disorder, single episode, unspecified; F12.90 Cannabis use, unspecified, uncomplicated; Z87.442 Personal history of urinary calculi; Z87.891 Personal history of nicotine dependence; Z79.82 Long term (current) use of aspirin; Z79.899 Other long term (current) drug therapy; Z79.51 Long term (current) use of inhaled steroids; Z88.0 Allergy status to penicillin
CPT/HCPCS: 36415; 80048; 85025; 99284

== ENCOUNTER 2020-12-14 22:37 | Emergency (ER) | payer MEDICARE, OTHER ==
[2020-12-14 23:02] VITALS: TEMP 98.1
[2020-12-14] MEDS ORDERED: MORPHINE SULFATE 2 MG/ML SYRINGE IVP STA (23:05)
--- NOTE | 2020-12-14 23:12 | ED ---
General Adult HPI <Ramesh Fernandez Melody - Last Filed: 12/15/20 00:51> - General Source: patient, EMS, RN notes reviewed, old records reviewed Mode of arrival: EMS - History of Present Illness -: hour(s) (2) Location: right, upper extremity Radiation: non-radiation Severity scale (1-10): 8 Consistency: constant Improves with: cold therapy Worsens with: none Associated Symptoms: denies other symptoms Treatments Prior to Arrival: none <Cyo Vazquez - Last Filed: 12/15/20 01:15> - General Chief complaint: Extremity Problem,Nontraumatic Stated complaint: Arm Swelling - History of Present Illness Initial comments: 65-year-old white female, alert and oriented 4, presents to the emergency room with complaints of right arm redness and swelling for the past 4 hours. Patient has a dialysis cath to the right upper arm and had dialysis at 5 AM this morning. She states that dialysis was uneventful. She states that the arm is not painful is itchy and swollen and red. She denies injury. She denies any other symptoms, no chest pain, shortness of breath, fever or nausea and vomiting. (Coy Vazquez) - Related Data Home Medications Medication Instructions Recorded Confirmed Phenytoin Sodium Extended 100 mg PO TID@0600,1400,2200 11/29/15 10/10/20 [Dilantin] Primidone [Mysoline] 100 mg PO HS@199907/20/18 10/10/20 Calcium Acetate 2,001 mg PO TID-W/MEALS 09/06/20 10/10/20 Calcium Acetate [PhosLo] 667 mg PO HS@199909/06/20 10/10/20 Fluticasone/Vilanterol [Breo 1 puff INHALATION RT-DAILY@79909/06/20 10/10/20 Ellipta 100-25 Mcg Inhaler] Folic Acid-Vit B Complex-Vit C 1 cap PO DAILY@79909/06/20 10/10/20 [Nephrocaps] Lidocaine-Prilocaine Cream [Emla 1 applic TOPICAL MOWEFR 09/06/20 10/10/20 Cream 2.5%/2.5%] traZODone HCL 150 mg PO HS@199909/06/20 10/10/20 Albuterol Inhaler [Ventolin Hfa 2 puff INHALATION RT-Q6H 09/16/20 10/10/20 Inhaler] Diff-Stat Probiotic 2 cap PO BID 09/16/20 10/10/20 Omeprazole 20 mg PO DAILY@0800 09/16/20 10/10/20 Furosemide [Lasix] 80 mg PO BID@0800,199909/22/20 10/10/20 Metoprolol Tartrate [Lopressor] 25 mg PO BID@0800,199909/22/20 10/10/20 Montelukast [Singulair] 10 mg PO HS@199909/22/20 10/10/20 hydrALAZINE HCL [Apresoline] 25 mg PO Q8H 09/22/20 10/10/20 ALPRAZolam [Xanax] 1 mg PO Q8H PRN 10/10/20 10/10/20 Previous Rx's Medication Instructions Recorded Aspirin 81 mg PO DAILY chew 09/24/20 Atorvastatin [Lipitor] 10 mg PO HS@1999 tab 10/04/20 Gabapentin [Neurontin] 100 mg PO TID 3 Days #9 cap 10/04/20 HYDROcodone/APAP 5-325MG [[place] 1 each PO Q6HR PRN #12 tab 10/04/20 5-325] HYDROcodone/APAP 5-325MG [[place] 1 tab PO Q6HR PRN 3 Days #12 tab 10/11/20 5-325] Clindamycin HCl 300 mg PO Q8H 7 Days #21 cap 12/15/20 Clindamycin [Cleocin] 150 mg PO Q8H 7 Days #21 capsule 12/15/20 Allergies Allergy/AdvReac Type Severity Reaction Status Date / Time Penicillins Allergy Mild Swelling Verified 10/10/20 23:18 Review of Systems ROS Other: All systems not noted in ROS Statement are negative. <Ramesh Fernandez - Last Filed: 12/15/20 00:51> ROS Other: All systems not noted in ROS Statement are negative. <Coy Vazquez - Last Filed: 12/15/20 01:15> ROS Statement: Those systems with pertinent positive or pertinent negative responses have been documented in the HPI. Past Medical History Past Medical History: COPD, Diabetes Mellitus, GERD/Reflux, Hyperlipidemia, Hypertension, Osteoarthritis (OA), Pneumonia, Respiratory Disorder, Seizure Disorder, Vascular Disorder Additional Past Medical History / Comment(s): hepatic encephalopathy/chronic liver disease probably d/t fatty liver advancing to chronic liver disease with possible cirrhosis/acute on chronic renal failure/acute on chronic COPD, AMS d/t elevated ammonia levels/metabolic acidosis/ electrolyte disturbances. Other hx: High ammonia levels, chronic liver disease, kidney stones, CKD stage IV, chronic respiratory failure with home O2 at 4L/NC, NIDDM type II, neuropathy bilateral feet, IBS, arthritis in multiple joints, chronic back pain, current problems with weakness, generalized edema. History of Any Multi-Drug Resistant Organisms: None Reported Past Surgical History: Ear Surgery, Hysterectomy, Orthopedic Surgery Additional Past Surgical History / Comment(s): Multiple surgeries/ESWL for kidney stones, bilateral caratid endartectomies, L ankle surgery with metal esteban/pin, R ear surgery for deteriorating eardrum, sinus surgery, colonoscopy. Past Anesthesia/Blood Transfusion Reactions: No Reported Reaction Past Psychological History: Anxiety, Depression Smoking Status: Former smoker Past Alcohol Use History: None Reported Past Drug Use History: Marijuana - Past Family History Mother Family Medical History: Diabetes Mellitus, Hypertension Father Family Medical History: Hypertension <Coy Vazquez - Last Filed: 12/15/20 01:15> General Exam General appearance: alert, in no apparent distress Head exam: Present: atraumatic, normocephalic, normal inspection Eye exam: Present: normal appearance, PERRL, EOMI. Absent: scleral icterus, conjunctival injection, periorbital swelling ENT exam: Present: normal exam, normal oropharynx, mucous membranes moist Neck exam: Present: normal inspection, full ROM. Absent: tenderness, meningismus, lymphadenopathy, thyromegaly Respiratory exam: Present: normal lung sounds bilaterally. Absent: respiratory distress, wheezes, rales, rhonchi, stridor, chest wall tenderness, accessory mus hans use, decreased breath sounds, prolonged expiratory Cardiovascular Exam: Present: regular rate, normal rhythm, normal heart sounds. Absent: systolic murmur, diastolic murmur, rubs, gallop, clicks GI/Abdominal exam: Present: soft, normal bowel sounds. Absent: distended, tenderness, guarding, rebound, rigid Extremities exam: Present: normal inspection, full ROM, normal capillary refill. Absent: tenderness, pedal edema, joint swelling, calf tenderness Right Elbow exam: Present: normal inspection. Absent: tenderness Forearm Wrist exam: Present: full ROM, tenderness, swelling, erythema. Absent: abrasion, laceration, ecchymosis, deformity, crepitus, tenderness over anatomical snuff box Neuro motor exam: Present: wrist extension intact, thumb opposition intact, thumb IP flexion intact, thumb adduction intact, fingers 2-5 abduction intact Neurosensory exam: Present: 2-point discrimination Vascular: Present: radial pulse Back exam: Present: normal inspection. Absent: tenderness, CVA tenderness (R), CVA tenderness (L), muscle spasm, paraspinal tenderness, vertebral tenderness Neurological exam: Present: alert, oriented X3, CN II-XII intact Psychiatric exam: Present: normal affect, normal mood Skin exam: Present: warm, dry, intact, normal color. Absent: rash, cyanosis, diaphoretic, petechiae, pallor, mottled <Coy Vazquez - Last Filed: 12/15/20 01:15> Course Vital Signs 12/14/20 12/15/20 22:39 00:57 Temperature 98.1 F Pulse Rate 87 83 Respiratory 18 17 Rate Blood Pressure 125/74 122/71 O2 Sat by Pulse 96 98 Oximetry EKG Findings - EKG Comments: EKG Findings:: EKG is sinus rhythm 83 IN 174 QRS 134 QTC 491 <Ramesh Fernandez - Last Filed: 12/15/20 00:51> - EKG Results: EKG: sinus rhythm (Ventricular rate of 83, IN interval 0.174, QRS of 0.134, QTC of 0.491), no acute changes, not changed from: (09/30/2020) <Coy Vazquez - Last Filed: 12/15/20 01:15> Medical Decision Making - Lab Data Result diagrams: 12/14/20 23:09 <Ramesh Fernandez - Last Filed: 12/15/20 00:51> - Lab Data Result diagrams: 12/14/20 23:09 12/14/20 23:09 <Coy Vazquez - Last Filed: 12/15/20 01:15> - Medical Decision Making WBC count 6.5, hemoglobin and hematocrit is 11.6 and 36.6 respectively. Potassium is 4.6. Bun 45 creatinine is 3.31 patient receives hemodialysis Saturday and Saturday and did receive her dialysis today. This appears to be a cellulitis to the right forearm that the patient states just developed today. She is afebrile and well-appearing. She'll be sent back to [facility] with antibiotics and directed to return if worsening symptoms or fever. Case discussed with Dr. Fernandez. (Coy Vazquez) - Lab Data Lab Results 12/14/20 12/14/20 Range/Units 23:09 23:09 WBC 6.5 (3.8-10.6) k/uL RBC 3.37 L (3.80-5.40) m/uL Hgb 11.6 D (11.4-16.0) gm/dL Hct 36.6 (34.0-46.0) % MCV 108.8 H (80.0-100.0) fL MCH 34.4 (25.0-35.0) pg MCHC 31.6 (31.0-37.0) g/dL RDW 16.1 H (11.5-15.5) % Plt Count 202 (150-450) k/uL MPV 7.1 Neutrophils % 60 % Lymphocytes % 26 % Monocytes % 6 % Eosinophils % 5 % Basophils % 1 % Neutrophils # 3.9 (1.3-7.7) k/uL Lymphocytes # 1.7 (1.0-4.8) k/uL Monocytes # 0.4 (0-1.0) k/uL Eosinophils # 0.3 (0-0.7) k/uL Basophils # 0.0 (0-0.2) k/uL Hypochromasia Slight Anisocytosis Slight Macrocytosis Marked A Sodium 133 L (137-145) mmol/L Potassium 4.6 (3.5-5.1) mmol/L Chloride 91 L (98-107) mmol/L Carbon Dioxide 31 H (22-30) mmol/L Anion Gap 11 mmol/L BUN 45 H (7-17) mg/dL Creatinine 3.31 H (0.52-1.04) mg/dL Est GFR (CKD-EPI)AfAm 16 (>60 ml/min/1.73 sqM) Est GFR (CKD-EPI)NonAf 14 (>60 ml/min/1.73 sqM) Glucose 114 H (74-99) mg/dL Calcium 9.2 (8.4-10.2) mg/dL Total Bilirubin 0.1 L (0.2-1.3) mg/dL AST 32 (14-36) U/L ALT 26 (4-34) U/L Alkaline Phosphatase 148 H (38-126) U/L Total Protein 6.8 (6.3-8.2) g/dL Albumin 4.0 (3.5-5.0) g/dL Disposition <Ramesh Fernandez - Last Filed: 12/15/20 00:51> Is patient prescribed a controlled substance at d/c from ED?: No Time of Disposition: 01:15 <Coy Vazquez - Last Filed: 12/15/20 01:15> Clinical Impression: Cellulitis Disposition: HOME SELF-CARE Additional Instructions: Take clindamycin 450 mg as prescribed 3 times a day for the next 7 days. Benadryl as needed for itching. Cool compresses. Return if worsening symptoms including spreading redness, pain or fever. Prescriptions: Clindamycin [Cleocin] 150 mg PO Q8H 7 Days #21 capsule Clindamycin HCl 300 mg PO Q8H 7 Days #21 cap Referrals: Cj Campos MD [Primary Care Provider] - 1-2 days
[2020-12-14] MEDS ORDERED: diphenhydrAMINE 50 MG/ML 1 ML VIAL IVP STA (23:38)
[2020-12-15 00:01] LABS: Anisocytosis Slight; Basophils % (A) 1 %; Eosinophils # (A) 0.3 k/uL (0-0.7); Eosinophils % (A) 5 %; HCT 36.6 % (34.0-46.0); Hypochromasia Slight; Lymphocytes # (A) 1.7 k/uL (1.0-4.8); Lymphocytes % (A) 26 %; MCH 34.4 pg (25.0-35.0); MCHC 31.6 g/dL (31.0-37.0); MCV 108.8 fL (80.0-100.0); Macrocytosis Marked; Mean Platelet Volume 7.1; Monocytes # (A) 0.4 k/uL (0-1.0); Monocytes % (A) 6 %; Neutrophils # (A) 3.9 k/uL (1.3-7.7); Neutrophils % (A) 60 %; Platelet Count 202 k/uL (150-450); RBC 3.37 m/uL (3.80-5.40); RDW 16.1 % (11.5-15.5); WBC 6.5 k/uL (3.8-10.6)
[2020-12-15 00:09] LABS: HGB 11.6 gm/dL (11.4-16.0)
[2020-12-15 01:01] LABS: Calcium 9.2 mg/dL (8.4-10.2); Potassium 4.6 mmol/L (3.5-5.1); Total Bilirubin 0.1 mg/dL (0.2-1.3); Total Protein 6.8 g/dL (6.3-8.2)
[2020-12-15 01:37] VITALS: BP 121/68; PULSE 77; RESP 18
== END 2020-12-15 02:07 | disposition home or self-care (01) ==
LOC: EC 22:37
DX: L03.113 Cellulitis of right upper limb (principal); E11.22 Type 2 diabetes mellitus with diabetic chronic kidney disease; E78.5 Hyperlipidemia, unspecified; G40.909 Epilepsy, unspecified, not intractable, without status epilepticus; I12.9 Hypertensive chronic kidney disease with stage 1 through stage 4 chronic kidney disease, or unspecified chronic kidney disease; J44.9 Chronic obstructive pulmonary disease, unspecified; K21.9 Gastro-esophageal reflux disease without esophagitis; K58.9 Irritable bowel syndrome, unspecified; M19.90 Unspecified osteoarthritis, unspecified site; N18.4 Chronic kidney disease, stage 4 (severe); Z79.82 Long term (current) use of aspirin; Z87.442 Personal history of urinary calculi; Z87.891 Personal history of nicotine dependence; Z99.2 Dependence on renal dialysis; F32.9 Major depressive disorder, single episode, unspecified; F12.90 Cannabis use, unspecified, uncomplicated
CPT/HCPCS: 36415; 93005; 80053; 85025; 87040; 99284; 96374; 96375; J1200; J2270

== ENCOUNTER 2021-02-12 05:00 | Inpatient (IN) | payer MEDICARE, OTHER ==
[2021-02-12] MEDS ORDERED: IPRATROPIUM-ALBUTEROL 3 ML NEB INHALATION STA (05:19)
[2021-02-12 06:07] LABS: Basophils % (A) 0 %; Eosinophils # (A) 0.1 k/uL (0-0.7); Eosinophils % (A) 1 %; HCT 36.9 % (34.0-46.0); HGB 11.2 gm/dL (11.4-16.0); Hypochromasia Moderate; Lymphocytes # (A) 0.4 k/uL (1.0-4.8); Lymphocytes % (A) 5 %; MCH 32.2 pg (25.0-35.0); MCHC 30.3 g/dL (31.0-37.0); MCV 106.5 fL (80.0-100.0); Macrocytosis Moderate; Monocytes # (A) 0.2 k/uL (0-1.0); Monocytes % (A) 2 %; Neutrophils % (A) 91 %; Platelet Count 175 k/uL (150-450); Poikilocytosis Slight; RBC 3.47 m/uL (3.80-5.40); RDW 15.2 % (11.5-15.5); VBG PH 7.34 (7.31-7.41); WBC 8.8 k/uL (3.8-10.6)
[2021-02-12 06:15] LABS: INR 0.9 (<1.2); Partial Thromboplastin Time 22.2 sec (22.0-30.0); Prothrombin Time 9.5 sec (9.0-12.0)
[2021-02-12 06:28] LABS: Albumin 4.5 g/dL (3.5-5.0); Calcium 9.2 mg/dL (8.4-10.2); Total Bilirubin 0.6 mg/dL (0.2-1.3)
--- NOTE | 2021-02-12 06:42 | XR ---
EXAMINATION TYPE: XR chest 1V portable DATE OF EXAM: 02/12/2021 COMPARISON: 09/30/2020 HISTORY: Altered mental status TECHNIQUE: FINDINGS: There is some coarsening of interstitial markings. There is right central venous catheter w ith tip in the superior vena cava. There is increased density over the right lung base consistent wit h infiltrate posterior. There is no obvious heart failure. IMPRESSION: Pulmonary fibrosis. There is chronic density at the right lung base consistent with scarr ing and pneumonia that is significantly different than old exam.
--- NOTE | 2021-02-12 06:44 | CT ---
EXAMINATION TYPE: CT brain wo con DATE OF EXAM: 02/12/2021 COMPARISON: 03/12/2019 HISTORY: altered mental status CT DLP: 1099.4 mGycm Automated exposure control for dose reduction was used. Ventricles have normal size. There is no mass effect nor midline shift. There is cerebral atrophy. Ca lvarium is intact. There is no evidence of intracranial hemorrhage. Skull base is intact. IMPRESSION: Cerebral atrophy. No acute intracranial abnormality. No change.
--- NOTE | 2021-02-12 08:53 | ED ---
Altered Mental Status HPI - General Chief Complaint: Altered Mental Status Stated Complaint: Altered Mental Status Time Seen by Provider: 02/12/21 05:06 Source: patient, EMS Mode of arrival: EMS Limitations: altered mental status - History of Present Illness Initial Comments: This patient is a 65-year-old woman sent from [facility] to be evaluated for dyspnea and altered mental status. Patient not able to give much history. When questioned, she does give her name, and answer simple yes or no questions. She is having some shortness of breath. She is denying pain. It is unclear exactly how long symptoms have been going on. Patient does have history of end-stage renal disease and hemodialysis on Saturday. MD Complaint: altered mental status, other -: unknown Consistency of Symptoms: unknown Context: unknown - Related Data Home Medications Medication Instructions Recorded Confirmed Phenytoin Sodium Extended 100 mg PO TID@0600,1400,2200 11/29/15 02/12/21 [Dilantin] Primidone [Mysoline] 100 mg PO HS@199907/20/18 02/12/21 Calcium Acetate 2,001 mg PO TID@0900,1300,1800 09/06/20 02/12/21 Calcium Acetate [PhosLo] 667 mg PO HS@199909/06/20 02/12/21 Fluticasone/Vilanterol [Breo 1 puff INHALATION RT-DAILY@0800 09/06/20 02/12/21 Ellipta 100-25 Mcg Inhaler] Folic Acid-Vit B Complex-Vit C 1 cap PO DAILY@0800 09/06/20 02/12/21 [Nephrocaps] Lidocaine-Prilocaine Cream [Emla 1 applic TOPICAL MOWEFR 09/06/20 02/12/21 Cream 2.5%/2.5%] traZODone HCL 150 mg PO HS@199909/06/20 02/12/21 Albuterol Inhaler [Ventolin Hfa 2 puff INHALATION 09/16/20 02/12/21 Inhaler] RT-Q6H@00,06,12,18 Omeprazole 20 mg PO DAILY@0800 09/16/20 02/12/21 Furosemide [Lasix] 80 mg PO BID@0800,1600 09/22/20 02/12/21 Metoprolol Tartrate [Lopressor] 25 mg PO BID@0800,199909/22/20 02/12/21 Montelukast [Singulair] 10 mg PO HS@199909/22/20 02/12/21 hydrALAZINE HCL [Apresoline] 25 mg PO TID@0000,0800,1600 09/22/20 02/12/21 Acetaminophen Tab [Tylenol] 650 mg PO Q6H PRN 02/12/21 02/12/21 Aspirin 81 mg PO DAILY@0800 02/12/21 02/12/21 Cinacalcet [Sensipar] 30 mg PO HS 02/12/21 02/12/21 Previous Rx's Medication Instructions Recorded Atorvastatin [Lipitor] 10 mg PO HS@1999 tab 10/04/20 HYDROcodone/APAP 5-325MG [[place] 1 each PO Q6HR PRN #12 tab 10/04/20 5-325] Gabapentin [Neurontin] 300 mg PO MOWEFR@1999 #3 cap 02/15/21 HYDROcodone/APAP 5-325MG [[place] 1 tab PO Q6HR PRN 3 Days #12 tab 02/15/21 5-325] Allergies Allergy/AdvReac Type Severity Reaction Status Date / Time Penicillins Allergy Mild Swelling Verified 02/12/21 09:16 Review of Systems ROS Statement: Those systems with pertinent positive or pertinent negative responses have been documented in the HPI. ROS Other: All systems not noted in ROS Statement are negative. Limitations: ROS unobtainable due to patients medical condition Past Medical History Past Medical History: COPD, Diabetes Mellitus, GERD/Reflux, Hyperlipidemia, Hypertension, Osteoarthritis (OA), Pneumonia, Respiratory Disorder, Seizure Disorder, Vascular Disorder Additional Past Medical History / Comment(s): hepatic encephalopathy/chronic liver disease probably d/t fatty liver advancing to chronic liver disease with possible cirrhosis/acute on chronic renal failure/acute on chronic COPD, AMS d/t elevated ammonia levels/metabolic acidosis/ electrolyte disturbances. Other hx: High ammonia levels, chronic liver disease, kidney stones, CKD stage IV, chronic respiratory failure with home O2 at 4L/NC, NIDDM type II, neuropathy bilateral feet, IBS, arthritis in multiple joints, chronic back pain, current problems with weakness, generalized edema. History of Any Multi-Drug Resistant Organisms: Unobtainable Past Surgical History: Ear Surgery, Hysterectomy, Orthopedic Surgery Additional Past Surgical History / Comment(s): Multiple surgeries/ESWL for kidney stones, bilateral caratid endartectomies, L ankle surgery with metal esteban/pin, R ear surgery for deteriorating eardrum, sinus surgery, colonoscopy. Past Anesthesia/Blood Transfusion Reactions: No Reported Reaction Past Psychological History: Anxiety, Depression Smoking Status: Former smoker Past Alcohol Use History: None Reported Past Drug Use History: Marijuana - Past Family History Mother Family Medical History: Diabetes Mellitus, Hypertension Father Family Medical History: Hypertension General Exam General appearance: alert, in distress (Mild respiratory distress) Head exam: Present: atraumatic, normocephalic Eye exam: Present: normal appearance. Absent: scleral icterus, conjunctival injection ENT exam: Present: normal oropharynx Neck exam: Present: normal inspection Respiratory exam: Present: respiratory distress (Mild tachypnea), rales (Bilateral bases). Absent: wheezes, rhonchi, stridor, accessory muscle use, decreased breath sounds, prolonged expiratory Cardiovascular Exam: Present: regular rate, normal rhythm, systolic murmur. Absent: diastolic murmur, rubs, gallop GI/Abdominal exam: Present: soft. Absent: distended, tenderness, guarding, rebound, rigid, mass Extremities exam: Present: normal inspection, normal capillary refill. Absent: pedal edema, calf tenderness Back exam: Present: normal inspection. Absent: CVA tenderness (R), CVA tendern ess (L) Neurological exam: Present: alert. Absent: motor sensory deficit Skin exam: Present: warm, dry, intact, normal color. Absent: rash Course Vital Signs 02/12/21 02/12/21 02/12/21 05:11 05:23 05:30 Temperature 98.9 F Pulse Rate 86 86 90 Pulse Rate [ Skin Pass Operator ] Respiratory 24 Rate Blood Pressure 146/86 Blood Pressure [Left Arm] O2 Sat by Pulse 98 Oximetry 02/12/21 02/12/21 02/12/21 06:38 07:10 10:02 Temperature 98.6 F Pulse Rate 78 78 82 Pulse Rate [ Skin Pass Operator ] Respiratory 20 18 24 Rate Blood Pressure 120/82 119/66 160/95 Blood Pressure [Left Arm] O2 Sat by Pulse 99 100 Oximetry 02/12/21 02/12/21 02/12/21 11:18 12:49 16:23 Temperature Pulse Rate 87 93 Pulse Rate [ Skin Pass Operator ] Respiratory 20 18 Rate Blood Pressure 114/101 Blood Pressure [Left Arm] O2 Sat by Pulse 95 94 L 92 L Oximetry 02/12/21 02/12/21 02/12/21 18:25 19:22 20:14 Temperature 98.5 F Pulse Rate 93 85 Pulse Rate [ 91 Skin Pass Operator ] Respiratory 20 18 18 Rate Blood Pressure 167/74 158/77 Blood Pressure 135/79 [Left Arm] O2 Sat by Pulse 100 100 Oximetry Medical Decision Making - Medical Decision Making Patient is 65-year-old woman sent from [facility] to be evaluated for dyspnea and mental status change. On arrival, patient is placed on BiPAP and is given nebulized treatment. Her respiratory status does improve. The patient's workup shows questionable right lower lobe infiltrate, though the patient does not have fever. No purulent sputum. No leukocytosis. Patient also with mild hyperkalemia but specimen may be hemolyzed. - Lab Data Result diagrams: 02/14/21 09:36 02/14/21 09:36 Lab Results 02/12/21 02/12/21 02/12/21 Range/Units 05:47 05:47 05:47 WBC 8.8 (3.8-10.6) k/uL RBC 3.47 L (3.80-5.40) m/uL Hgb 11.2 L (11.4-16.0) gm/dL Hct 36.9 (34.0-46.0) % MCV 106.5 H (80.0-100.0) fL MCH 32.2 (25.0-35.0) pg MCHC 30.3 L (31.0-37.0) g/dL RDW 15.2 (11.5-15.5) % Plt Count 175 (150-450) k/uL MPV 8.0 Neutrophils % 91 % Lymphocytes % 5 % Monocytes % 2 % Eosinophils % 1 % Basophils % 0 % Neutrophils # 8.0 H (1.3-7.7) k/uL Lymphocytes # 0.4 L (1.0-4.8) k/uL Monocytes # 0.2 (0-1.0) k/uL Eosinophils # 0.1 (0-0.7) k/uL Basophils # 0.0 (0-0.2) k/uL Hypochromasia Moderate Poikilocytosis Slight Macrocytosis Moderate PT 9.5 (9.0-12.0) sec INR 0.9 (<1.2) APTT 22.2 (22.0-30.0) sec VBG pH (7.31-7.41) VBG pCO2 (37-51) mmHg VBG HCO3 (24-28) mmol/L Sodium (137-145) mmol/L Potassium (3.5-5.1) mmol/L Chloride (98-107) mmol/L Carbon Dioxide (22-30) mmol/L Anion Gap mmol/L BUN (7-17) mg/dL Creatinine (0.52-1.04) mg/dL Est GFR (CKD-EPI)AfAm (>60 ml/min/1.73 sqM) Est GFR (CKD-EPI)NonAf (>60 ml/min/1.73 sqM) Glucose (74-99) mg/dL Plasma Lactic Acid Jd (0.7-2.0) mmol/L Calcium (8.4-10.2) mg/dL Total Bilirubin (0.2-1.3) mg/dL AST (14-36) U/L ALT (4-34) U/L Alkaline Phosphatase (38-126) U/L Troponin I (0.000-0.034) ng/mL Total Protein (6.3-8.2) g/dL Albumin (3.5-5.0) g/dL Procalcitonin (0.02-0.09) ng/mL Urine Color Light Yellow Urine Appearance Clear (Clear) Urine pH 6.0 (5.0-8.0) Ur Specific [place] 1.008 (1.001-1.035) Urine Protein 2+ H (Negative) Urine Glucose (UA) Negative (Negative) Urine Ketones Negative (Negative) Urine Blood Trace H (Negative) Urine Nitrite Negative (Negative) Urine Bilirubin Negative (Negative) Urine Urobilinogen <2.0 (<2.0) mg/dL Ur Leukocyte Esterase Negative (Negative) Urine RBC <1 (0-5) /hpf Urine WBC <1 (0-5) /hpf Ur Squamous Epith Cells <1 (0-4) /hpf Urine Bacteria Rare H (None) /hpf Urine Mucus Rare H (None) /hpf Urine Opiates Screen Detected H (NotDetected) Ur Oxycodone Screen Not Detected (NotDetected) Urine Methadone Screen Not Detected (NotDetected) Ur Propoxyphene Screen Not Detected (NotDetected) Ur Barbiturates Screen Detected H (NotDetected) U Tricyclic Antidepress Not Detected (NotDetected) Ur Phencyclidine Scrn Not Detected (NotDetected) Ur Amphetamines Screen Not Detected (NotDetected) U Methamphetamines Scrn Not Detected (NotDetected) U Benzodiazepines Scrn Detected H (NotDetected) Urine Cocaine Screen Not Detected (NotDetected) U Marijuana (THC) Screen Not Detected (NotDetected) 02/12/21 02/12/21 02/12/21 Range/Units 05:47 05:47 05:47 WBC (3.8-10.6) k/uL RBC (3.80-5.40) m/uL Hgb (11.4-16.0) gm/dL Hct (34.0-46.0) % MCV (80.0-100.0) fL MCH (25.0-35.0) pg MCHC (31.0-37.0) g/dL RDW (11.5-15.5) % Plt Count (150-450) k/uL MPV Neutrophils % % Lymphocytes % % Monocytes % % Eosinophils % % Basophils % % Neutrophils # (1.3-7.7) k/uL Lymphocytes # (1.0-4.8) k/uL Monocytes # (0-1.0) k/uL Eosinophils # (0-0.7) k/uL Basophils # (0-0.2) k/uL Hypochromasia Poikilocytosis Macrocytosis PT (9.0-12.0) sec INR (<1.2) APTT (22.0-30.0) sec VBG pH (7.31-7.41) VBG pCO2 (37-51) mmHg VBG HCO3 (24-28) mmol/L Sodium 128 L (137-145) mmol/L Potassium 6.0 H (3.5-5.1) mmol/L Chloride 87 L (98-107) mmol/L Carbon Dioxide 30 (22-30) mmol/L Anion Gap 11 mmol/L BUN 43 H (7-17) mg/dL Creatinine 3.39 H (0.52-1.04) mg/dL Est GFR (CKD-EPI)AfAm 16 (>60 ml/min/1.73 sqM) Est GFR (CKD-EPI)NonAf 14 (>60 ml/min/1.73 sqM) Glucose 143 H (74-99) mg/dL Plasma Lactic Acid Jd 1.4 (0.7-2.0) mmol/L Calcium 9.2 (8.4-10.2) mg/dL Total Bilirubin 0.6 (0.2-1.3) mg/dL AST 49 H (14-36) U/L ALT 20 (4-34) U/L Alkaline Phosphatase 139 H (38-126) U/L Troponin I 0.049 H* (0.000-0.034) ng/mL Total Protein 8.0 (6.3-8.2) g/dL Albumin 4.5 (3.5-5.0) g/dL Procalcitonin (0.02-0.09) ng/mL Urine Color Urine Appearance (Clear) Urine pH (5.0-8.0) Ur Specific [place] (1.001-1.035) Urine Protein (Negative) Urine Glucose (UA) (Negative) Urine Ketones (Negative) Urine Blood (Negative) Urine Nitrite (Negative) Urine Bilirubin (Negative) Urine Urobilinogen (<2.0) mg/dL Ur Leukocyte Esterase (Negative) Urine RBC (0-5) /hpf Urine WBC (0-5) /hpf Ur Squamous Epith Cells (0-4) /hpf Urine Bacteria (None) /hpf Urine Mucus (None) /hpf Urine Opiates Screen (NotDetected) Ur Oxycodone Screen (NotDetected) Urine Methadone Screen (NotDetected) Ur Propoxyphene Screen (NotDetected) Ur Barbiturates Screen (NotDetected) U Tricyclic Antidepress (NotDetected) Ur Phencyclidine Scrn (NotDetected) Ur Amphetamines Screen (NotDetected) U Methamphetamines Scrn (NotDetected) U Benzodiazepines Scrn (NotDetected) Urine Cocaine Screen (NotDetected) U Marijuana (THC) Screen (NotDetected) 02/12/21 02/12/21 Range/Units 05:47 05:47 WBC (3.8-10.6) k/uL RBC (3.80-5.40) m/uL Hgb (11.4-16.0) gm/dL Hct (34.0-46.0) % MCV (80.0-100.0) fL MCH (25.0-35.0) pg MCHC (31.0-37.0) g/dL RDW (11.5-15.5) % Plt Count (150-450) k/uL MPV Neutrophils % % Lymphocytes % % Monocytes % % Eosinophils % % Basophils % % Neutrophils # (1.3-7.7) k/uL Lymphocytes # (1.0-4.8) k/uL Monocytes # (0-1.0) k/uL Eosinophils # (0-0.7) k/uL Basophils # (0-0.2) k/uL Hypochromasia Poikilocytosis Macrocytosis PT (9.0-12.0) sec INR (<1.2) APTT (22.0-30.0) sec VBG pH 7.34 (7.31-7.41) VBG pCO2 56 H (37-51) mmHg VBG HCO3 30 H (24-28) mmol/L Sodium (137-145) mmol/L Potassium (3.5-5.1) mmol/L Chloride (98-107) mmol/L Carbon Dioxide (22-30) mmol/L Anion Gap mmol/L BUN (7-17) mg/dL Creatinine (0.52-1.04) mg/dL Est GFR (CKD-EPI)AfAm (>60 ml/min/1.73 sqM) Est GFR (CKD-EPI)NonAf (>60 ml/min/1.73 sqM) Glucose (74-99) mg/dL Plasma Lactic Acid Jd (0.7-2.0) mmol/L Calcium (8.4-10.2) mg/dL Total Bilirubin (0.2-1.3) mg/dL AST (14-36) U/L ALT (4-34) U/L Alkaline Phosphatase (38-126) U/L Troponin I (0.000-0.034) ng/mL Total Protein (6.3-8.2) g/dL Albumin (3.5-5.0) g/dL Procalcitonin 0.74 H (0.02-0.09) ng/mL Urine Color Urine Appearance (Clear) Urine pH (5.0-8.0) Ur Specific [place] (1.001-1.035) Urine Protein (Negative) Urine Glucose (UA) (Negative) Urine Ketones (Negative) Urine Blood (Negative) Urine Nitrite (Negative) Urine Bilirubin (Negative) Urine Urobilinogen (<2.0) mg/dL Ur Leukocyte Esterase (Negative) Urine RBC (0-5) /hpf Urine WBC (0-5) /hpf Ur Squamous Epith Cells (0-4) /hpf Urine Bacteria (None) /hpf Urine Mucus (None) /hpf Urine Opiates Screen (NotDetected) Ur Oxycodone Screen (NotDetected) Urine Methadone Screen (NotDetected) Ur Propoxyphene Screen (NotDetected) Ur Barbiturates Screen (NotDetected) U Tricyclic Antidepress (NotDetected) Ur Phencyclidine Scrn (NotDetected) Ur Amphetamines Screen (NotDetected) U Methamphetamines Scrn (NotDetected) U Benzodiazepines Scrn (NotDetected) Urine Cocaine Screen (NotDetected) U Marijuana (THC) Screen (NotDetected) - EKG Data -: EKG Interpreted by Me EKG shows normal: sinus rhythm, axis (Normal), intervals (QRS duration 132 ms, prolonged consistent with left bundle branch block. NV interval borderline at 202 ms.), QRS complexes (There is a left bundle-branch block which is present on previous ECGs) Disposition Clinical Impression: COPD exacerbation, Elevated troponin, Delirium due to general medical condition Disposition: ADMITTED IP TO THIS [facility] Condition: Fair
[2021-02-12] MEDS ORDERED: NALOXONE 0.4 MG/ML 1 ML VIAL IV PRN (09:01)
[2021-02-12 11:11] LABS: Appearance,Urine Clear (Clear); Bacteria,Urine Rare /hpf; Bilirubin,Urine Negative (Negative); Blood,Urine Trace (Negative); Color,Urine Light Yellow; Glucose,Urine (UA) Negative (Negative); Ketones,Urine Negative (Negative); Leukocyte Esterase,Urine Negative (Negative); Mucus,Urine Rare /hpf; Nitrite,Urine Negative (Negative); Protein,Urine 2+ (Negative); RBC,Urine <1 /hpf (0-5); Specific Gravity,Urine 1.008 (1.001-1.035); Squamous Epithelial Cell,Urine <1 /hpf (0-4); Urobilinogen,Urine <2.0 mg/dL (<2.0); WBC,Urine <1 /hpf (0-5)
[2021-02-12 11:12] LABS: Amphetamine Screen,Urine Not Detected (NotDetected); Barbiturate Screen,Urine Detected (NotDetected); Benzodiazepines Screen,Urine Detected (NotDetected); Cocaine Screen,Urine Not Detected (NotDetected); Methadone Screen, Urine Not Detected (NotDetected); Opiate Screen,Urine Detected (NotDetected); Oxycodone Screen, Urine Not Detected (NotDetected); Phencyclidine Screen,Urine Not Detected (NotDetected); Tricyclic Antidepressant,Urine Not Detected (NotDetected); Urn Cannabinoid Scrn Not Detected (NotDetected)
[2021-02-12] MEDS ORDERED: DEXTROSE 50% SYRINGE 50 ML IVP STA ×2 (11:32→11:59)
[2021-02-12] MEDS ORDERED: INSULIN REGULAR 100 UNIT/ML VIAL (IV) IV ONE ×2 (11:32→11:59)
[2021-02-12] MEDS ORDERED: ACETAMINOPHEN TAB 325 MG TAB PO PRN (11:33)
[2021-02-12] MEDS ORDERED: CALCIUM CHLORIDE 100 MG/ML 10 ML SYRINGE IVP STA (12:00)
[2021-02-12] MEDS ORDERED: FUROSEMIDE 10 MG/ML 4 ML VIAL IV STA (12:01)
--- NOTE | 2021-02-12 12:20 | CONS ---
CONSULTATION REASON FOR CONSULT: Renal failure, end-stage renal disease. HISTORY OF PRESENT ILLNESS: The patient is a 65-year-old female with end-stage renal disease on hemodialysis on a Saturday, Saturday, Saturday schedule at the ( ) Dialysis Unit. Patient was admitted to the hospital with complaints of shortness of breath. She denies any chest pains. Her potassium was noted to be 6. Chest x-ray suggestive of some pulmonary vascular congestion. No fever noted. PAST MEDICAL HISTORY: Significant for end-stage renal disease, history of CHF, COPD, gastroesophageal reflux disease, hypertension, hyperlipidemia, osteoarthritis, CKD mineral bone disorder, chronic liver disease, type 2 diabetes with neuropathy, osteoarthritis. PAST SURGICAL HISTORY: AV fistula right arm, surgery for kidney stones, carotid endarterectomies, colonoscopy. SOCIAL HISTORY: Patient is a former smoker. Has used marijuana. MEDICATIONS PRIOR TO ADMISSION: Included Dilantin, folic acid, Mysoline, calcium acetate, Nephrocaps, Zocor, trazodone, probiotics, omeprazole, Xanax, Lasix, Lopressor, Singulair, hydralazine, Ultram, Tylenol, aspirin. ALLERGIES: Include PENICILLIN which causes swelling. REVIEW OF SYSTEMS: As per HPI. Other systems negative. EXAMINATION: Patient is currently on BiPAP. She is uncomfortable due to back pain, mildly short of breath as well. Blood pressure 160/95, heart rate 82 per minute, she is afebrile. Examination of the heart S1, S2. Examination lungs distant breath sounds. Decreased breath sounds at the bases. Abdomen is soft, morbidly obese. Examination of the lower extremities: Chronic skin changes, chronic edema bilaterally. [employer] exam grossly intact. LAB: Show sodium 128, potassium 6.0, chloride 87, BUN 43, creatinine 3.39. Troponin 0.049. Hemoglobin 11.2 g/dL. PCR for coronavirus negative. ASSESSMENT: 1. End-stage renal disease on hemodialysis Saturday, Saturday, Saturday schedule via right arm AV fistula. 2. Volume overload, expect improvement post hemodialysis today. 3. Hyperkalemia, expect improvement post dialysis. 4. Hypervolemic hyponatremia. 5. Anemia of chronic disease. 6. Possible pneumonia. PLAN: Hemodialysis today. Will plan for another treatment tomorrow. UF of about 2-3 L as tolerated. Resume phosphorus binders that patient was taking at home. Thank you for this consultation. Will continue to follow the patient with you during her hospitalization. MARIAM / PRISCAN: [id number] /
[2021-02-12] MEDS ORDERED: ONDANSETRON 4 MG/2 ML VIAL IVP PRN (13:38)
--- NOTE | 2021-02-12 13:43 | P.HPIM ---
History of Present Illness H&P Date: 02/12/21 (delayed charting seen at 1215 ) Chief Complaint: altered mentation Patient is a 65-year-old female with a history of end-stage renal disease on dialysis Saturday/Saturday/Saturday, diabetes, chronic liver disease, COPD, and irritable bowel syndrome who [facility] to [facility] mentation. In the ER she underwent an extensive evaluation. Initial v ital signs demonstrated oxygen saturation of 98% on BiPAP. Initial laboratory analysis showed a sodium of 128, potassium 6, BUN 43, creatinine 3.39, VBG with pH of 7.34, and a mildly elevated troponin at 0.049. Urinalysis negative. Her urine drug screen demonstrated opiates, barbiturates, benzodiazepines. Her "the testing was negative. Chest x-ray showed pulmonary fibrosis with chronic densit y in the right base consistent with scarring or pneumonia. Head CT shows cerebral atrophy with no acute intracranial abnormality. She was admitted for further management. Nephrology was called. Patient seen and examined at bedside in the emergency department. Moaning but denies pain, shortness of breath, and chest pain. She is unsure why she is here. She is able to tolerate that she lives at [facility] but is unable to tell me they month or the year. She no she has dialysis and uses a right upper extremity fistula. No family present at bedside, per [facility] records patient was transferred for altered mentation. Vital signs were table. Unable to obtain review of systems due to patients mentation General: non toxic, no distress, appears at stated age Derm: warm, dry Head: atraumatic, normocephalic, symmetric Eyes: EOMI, no lid lag, anicteric sclera, pupils equal round reactive to light ENT: Nose and ears atraumatic, no thrush, no pharyngeal erythema Neck: No thyromegaly, no cervical lymphadenopathy, trachea midline, supple Mouth: no lip lesion, mucus membranes moist Cardiovascular: S1S2 reg, no murmur, positive posterior tibial pulse bilateral, no edema, capillary refill less than 2 seconds Lungs: clear to ascultation bilateral, no ronchi, no rales, no wheeze, no accessory muscle use Abdominal: soft, nontender to palpation, no guarding, no appreciable organomegaly, normal bowel sounds Ext: no gross muscle atrophy, muscle strength muscle strength 5 out of 5 in all 4 extremities, no contractures Neuro: CN II-XI grossly intact, light touch intact all 4 extremities, finger to nose within normal limits, Psych: Alert, oriented, appropriate affect Hyperkalemia ESRD Hyponatremia -Insulin, dextrose, Lasix, calcium -Repeat potassium level at 1600 -Nephrology recommendations -Anticipate dialysis in a.m. -Repeat BMP in the morning -Nephrocaps, PhosLo, Sensipar Acute encephalopathy Unknown baseline - check stat ammonia, wiht hx of cirhosis -Safe and supportive care -CT head negative -No signs or symptoms of infection -Hold Neurontin, Xanax, and [place] DM 2 with neuropathy, [id number] -Not on medications in the outpatient setting -Sliding-scale insulin, follow Accu-Cheks -Check hemoglobin A1c -Neurontin is on hold secondary to altered mentation COPD without exacerbation -Bronchodilators Elevated troponin - Patient chest pain free. -Await repeat troponin -Anticipate this is secondary to her end-stage renal disease and not reflective of acute coronary syndrome Chronic: HTN-resume home hydralazine, Lopressor, Lasix, follow blood pressures HLD-statin OA GERD Cirrhosis Kidney stones Irritable bowel syndrome Chronic back pain The patient is admitted with an anticipated greater than 2 midnight stay for evaluation of altered mentation. Surrogate decision-maker: Has legal guardian CODE STATUS: Full by default DVT prophylaxis: Heparin Discussed with: Nursing, ED physician Anticipated discharge date: Undetermined Anticipated discharge place: Undetermined A total of 65 minutes was spent on the care of this complex patient more than 50% of the time was spent in counseling and care coordination. Past Medical History Past Medical History: COPD, Diabetes Mellitus, GERD/Reflux, Hyperlipidemia, Hypertension, Osteoarthritis (OA), Pneumonia, Respiratory Disorder, Seizure Disorder, Vascular Disorder Additional Past Medical History / Comment(s): hepatic encephalopathy/chronic liver disease probably d/t fatty liver advancing to chronic liver disease with possible cirrhosis/acute on chronic renal failure/acute on chronic COPD, AMS d/t elevated ammonia levels/metabolic acidosis/ electrolyte disturbances. Other hx: High ammonia levels, chronic liver disease, kidney stones, CKD stage IV, chronic respiratory failure with home O2 at 4L/NC, NIDDM type II, neuropathy bilateral feet, IBS, arthritis in multiple joints, chronic back pain, current problems with weakness, generalized edema. History of Any Multi-Drug Resistant Organisms: Unobtainable Past Surgical History: Ear Surgery, Hysterectomy, Orthopedic Surgery Additional Past Surgical History / Comment(s): Multiple surgeries/ESWL for kidney stones, bilateral caratid endartectomies, L ankle surgery with metal r od/pin, R ear surgery for deteriorating eardrum, sinus surgery, colonoscopy. Past Anesthesia/Blood Transfusion Reactions: No Reported Reaction Past Psychological History: Anxiety, Depression Smoking Status: Former smoker Past Alcohol Use History: None Reported Past Drug Use History: Marijuana - Past Family History Mother Family Medical History: Diabetes Mellitus, Hypertension Father Family Medical History: Hypertension Medications and Allergies Home Medications Medication Instructions Recorded Confirmed Type Phenytoin Sodium Extended 100 mg PO TID@0600,1400,2200 11/29/15 02/12/21 History [Dilantin] Primidone [Mysoline] 100 mg PO HS@199907/20/18 02/12/21 History Calcium Acetate 2,001 mg PO TID@0900,1300,1800 09/06/20 02/12/21 History Calcium Acetate [PhosLo] 667 mg PO HS@199909/06/20 02/12/21 History Fluticasone/Vilanterol [Breo 1 puff INHALATION RT-DAILY@0800 09/06/20 02/12/21 History Ellipta 100-25 Mcg Inhaler] Folic Acid-Vit B Complex-Vit C 1 cap PO DAILY@0800 09/06/20 02/12/21 History [Nephrocaps] Lidocaine-Prilocaine Cream [Emla 1 applic TOPICAL MOWEFR 09/06/20 02/12/21 History Cream 2.5%/2.5%] traZODone HCL 150 mg PO HS@199909/06/20 02/12/21 History Albuterol Inhaler [Ventolin Hfa 2 puff INHALATION 09/16/20 02/12/21 History Inhaler] RT-Q6H@00,06,12,18 Omeprazole 20 mg PO DAILY@0800 09/16/20 02/12/21 History Furosemide [Lasix] 80 mg PO BID@0800,1600 09/22/20 02/12/21 History Metoprolol Tartrate [Lopressor] 25 mg PO BID@0800,199909/22/20 02/12/21 History Montelukast [Singulair] 10 mg PO HS@199909/22/20 02/12/21 History hydrALAZINE HCL [Apresoline] 25 mg PO TID@0000,0800,1600 09/22/20 02/12/21 History Atorvastatin [Lipitor] 10 mg PO HS@1999 tab 10/04/20 02/12/21 Rx HYDROcodone/APAP 5-325MG [[place] 1 each PO Q6HR PRN #12 tab 10/04/20 02/12/21 Rx 5-325] ALPRAZolam [Xanax] 0.5 mg PO Q8H PRN 02/12/21 02/12/21 History Acetaminophen Tab [Tylenol] 650 mg PO Q6H PRN 02/12/21 02/12/21 History Aspirin 81 mg PO DAILY@0800 02/12/21 02/12/21 History Cinacalcet [Sensipar] 30 mg PO HS 02/12/21 02/12/21 History Gabapentin [Neurontin] 300 mg PO MOWEFR@199902/12/21 02/12/21 History Allergies Allergy/AdvReac Type Severity Reaction Status Date / Time Penicillins Allergy Mild Swelling Verified 02/12/21 09:16 Physical Exam Osteopathic Statement: *. No significant issues noted on an osteopathic structural exam other than those noted in the History and Physical/Consult. Vitals: Vital Signs Temp Pulse Resp BP Pulse Ox 02/12/21 12:49 93 18 114/101 94 L 02/12/21 11:18 87 20 95 02/12/21 10:02 82 24 160/95 100 02/12/21 07:10 98.6 F 78 18 119/66 99 02/12/21 06:38 78 20 120/82 02/12/21 05:30 90 02/12/21 05:23 86 02/12/21 05:11 98.9 F 86 24 146/86 98 Intake and Output 02/11/21 02/12/21 02/12/21 22:59 06:59 14:59 Output Total 400 Balance -400 Output: Urine 400 Uretheral (Espinoza) 400 Other: Weight 112.491 kg Results CBC & Chem 7: 02/12/21 05:47 02/12/21 05:47 Labs: Abnormal Lab Results - Last 24 Hours (Table) 02/12/21 02/12/21 02/12/21 Range/Units 05:47 05:47 05:47 RBC 3.47 L (3.80-5.40) m/uL Hgb 11.2 L (11.4-16.0) gm/dL MCV 106.5 H (80.0-100.0) fL MCHC 30.3 L (31.0-37.0) g/dL Neutrophils # 8.0 H (1.3-7.7) k/uL Lymphocytes # 0.4 L (1.0-4.8) k/uL VBG pCO2 (37-51) mmHg VBG HCO3 (24-28) mmol/L Sodium 128 L (137-145) mmol/L Potassium 6.0 H (3.5-5.1) mmol/L Chloride 87 L (98-107) mmol/L BUN 43 H (7-17) mg/dL Creatinine 3.39 H (0.52-1.04) mg/dL Glucose 143 H (74-99) mg/dL AST 49 H (14-36) U/L Alkaline Phosphatase 139 H (38-126) U/L Troponin I (0.000-0.034) ng/mL Urine Protein 2+ H (Negative) Urine Blood Trace H (Negative) Urine Bacteria Rare H (None) /hpf Urine Mucus Rare H (None) /hpf Urine Opiates Screen Detected H (NotDetected) Ur Barbiturates Screen Detected H (NotDetected) U Benzodiazepines Scrn Detected H (NotDetected) 02/12/21 02/12/21 02/12/21 Range/Units 05:47 05:47 10:49 RBC (3.80-5.40) m/uL Hgb (11.4-16.0) gm/dL MCV (80.0-100.0) fL MCHC (31.0-37.0) g/dL Neutrophils # (1.3-7.7) k/uL Lymphocytes # (1.0-4.8) k/uL VBG pCO2 56 H (37-51) mmHg VBG HCO3 30 H (24-28) mmol/L Sodium (137-145) mmol/L Potassium (3.5-5.1) mmol/L Chloride (98-107) mmol/L BUN (7-17) mg/dL Creatinine (0.52-1.04) mg/dL Glucose (74-99) mg/dL AST (14-36) U/L Alkaline Phosphatase (38-126) U/L Troponin I 0.049 H* 0.051 H* (0.000-0.034) ng/mL Urine Protein (Negative) Urine Blood (Negative) Urine Bacteria (None) /hpf Urine Mucus (None) /hpf Urine Opiates Screen (NotDetected) Ur Barbiturates Screen (NotDetected) U Benzodiazepines Scrn (NotDetected)
[2021-02-12] MEDS: ALBUTEROL NEBULIZED 2.5 MG/3 ML INHALATION SCH ×2 (13:52→18:10)
[2021-02-12 16:38] LABS: Calcium 9.5 mg/dL (8.4-10.2); Potassium 4.7 mmol/L (3.5-5.1)
[2021-02-12] MEDS: PHENYTOIN SODIUM EXTENDED 100 MG CAP PO SCH ×2 (18:10→21:48)
[2021-02-12] MEDS: FUROSEMIDE 80 MG TAB PO SCH (18:10)
[2021-02-12] MEDS: CALCIUM ACETATE 667 MG TAB PO SCH ×5 (18:10→21:48)
[2021-02-12] MEDS: hydrALAZINE HCL 25 MG TAB PO SCH (21:29)
[2021-02-12 21:32] LABS: Glucose,Whole Blood 135 mg/dL (75-99)
[2021-02-12] MEDS: PRIMIDONE 50 MG TAB PO SCH (21:46)
[2021-02-12] MEDS: traZODone HCL 50 MG TAB PO SCH (21:46)
[2021-02-12] MEDS: METOPROLOL TARTRATE 25 MG TAB PO SCH (21:47)
[2021-02-12] MEDS: MONTELUKAST 10 MG TAB PO SCH (21:48)
[2021-02-12] MEDS: ATORVASTATIN 10 MG TAB PO SCH (21:48)
[2021-02-13] MEDS: hydrALAZINE HCL 25 MG TAB PO SCH ×3 (00:11→17:11)
[2021-02-13] MEDS: ALBUTEROL NEBULIZED 2.5 MG/3 ML INHALATION SCH ×5 (01:56→20:24)
[2021-02-13] MEDS ORDERED: ALBUTEROL NEBULIZED 2.5 MG/3 ML INHALATION PRN (02:02)
[2021-02-13] MEDS: CALCIUM ACETATE 667 MG TAB PO SCH ×5 (06:22→20:00)
[2021-02-13] MEDS: PANTOPRAZOLE 40 MG TABLET PO SCH (06:22)
[2021-02-13] MEDS: PHENYTOIN SODIUM EXTENDED 100 MG CAP PO SCH ×3 (06:22→23:01)
[2021-02-13 06:36] LABS: Glucose,Whole Blood 123 mg/dL (75-99)
[2021-02-13] MEDS: SYMBICORT 80-4.5 MCG INHALER INHALATION SCH ×2 (07:21→20:24)
--- NOTE | 2021-02-13 08:19 | P.PN ---
Subjective Progress Note Date: 02/13/21 Principal diagnosis: altered mentation Patient is a 65-year-old female with a history of end-stage renal disease on dialysis Saturday/Saturday/Saturday, diabetes, chronic liver disease, COPD, and irritable bowel syndrome who [facility] from [facility] secondary to alt ered mentation. In the ER she underwent an extensive evaluation. Initial vital signs demonstrated oxygen saturation of 98% on BiPAP. Initial laboratory analysis showed a sodium of 128, potassium 6, BUN 43, creatinine 3.39, VBG with pH of 7.34, and a mildly elevated troponin at 0.049. Urinalysis negative. Her urine drug screen demonstrated opiates, barbiturates, benzodiazepines. Her COVID-19 testing was negative. Chest x-ray showed pulmonary fibrosis with chronic density in the right base consistent with scarring or pneumonia, a febrile without symptoms. Head CT shows cerebral atrophy with no acute intracranial abnormality. She was admitted for further management. Nephrology was called and patient underwent urgent HD. Patient seen and examined at bedside. She report mild shortness of breath, No chest pain, no nausea, no cough.Feeling " Okay". General: non toxic, no distress, appears older than stated age Derm: warm, dry skin sloughing Head: atraumatic, normocephalic, symmetric Eyes: EOMI, no lid lag, anicteric sclera Mouth: no lip lesion, mucus membranes dry Cardiovascular: S1S2 reg, no murmur, positive posterior tibial pulse bilateral, Lungs: CTA bilateral, no rhonchi, no rales , no accessory muscle use Abdominal: soft, nontender to palpation, no guarding, no appreciable organomegaly Ext: no gross muscle atrophy, no edema, no contractures Neuro: CN II-XI grossly intact, no focal neuro deficits Psych: Alert, oriented, appropriate affect ESRD Hyponatremia -Nephrology recommendations appreciated, anticipate HD today -Repeat BMP in the morning -Nephrocaps, PhosLo, Sensipar Acute encephalopathy, appears near baseline -ammonia was normal -Safe and supportive care -CT head unchanged -Elevated temp X 1, repeat CXR and continue to monitor -Hold Neurontin, Xanax, and [place] DM 2 with neuropathy, [id number] -Not on medications in the outpatient setting -Sliding-scale insulin, follow Accu-Cheks -Await hemoglobin A1c -Neurontin is on hold secondary to altered mentation COPD without exacerbation -Bronchodilators Elevated troponin, flat - not consistent with ACS and suspect due to chronic renal failure - Patient chest pain free. - EKG consistent with prior less bundle block Hyperkalemia, resolved Chronic: HTN-resume home hydralazine, Lopressor, Lasix, follow blood pressures HLD-statin OA GERD Cirrhosis Kidney stones Irritable bowel syndrome Chronic back pain DVT prophylaxis: Heparin Discussed with: Nursing Anticipated discharge date: in 1-[address]: return to [facility] A total of 35 minutes was spent on the care of this complex patient more than 50% of the time was spent in counseling and care coordination. Objective - Vital Signs Vital signs: Vital Signs Temp 99.8 F H 02/13/21 04:20 Pulse 88 02/13/21 07:36 Resp 18 02/13/21 04:20 BP 164/91 02/13/21 04:20 Pulse Ox 94 L 02/13/21 04:20 Intake & Output 02/12/21 02/13/21 02/13/21 18:59 06:59 18:59 Output Total 7400 Balance -7400 Weight 105.5 kg Output: Urine 400 Uretheral (Espinoza) 400 Hemodialysis 3000 Other 4000 Other: Voiding Method Indwelling Catheter # Bowel Movements 0 - Labs CBC & Chem 7: 02/12/21 05:47 02/12/21 16:07 Labs: Abnormal Lab Results - Last 24 Hours (Table) 02/12/21 02/12/21 02/12/21 Range/Units 05:47 05:47 10:49 Sodium (137-145) mmol/L Chloride (98-107) mmol/L BUN (7-17) mg/dL Creatinine (0.52-1.04) mg/dL Glucose (74-99) mg/dL POC Glucose (mg/dL) (75-99) mg/dL Troponin I 0.051 H* (0.000-0.034) ng/mL Procalcitonin 0.74 H (0.02-0.09) ng/mL Urine Protein 2+ H (Negative) Urine Blood Trace H (Negative) Urine Bacteria Rare H (None) /hpf Urine Mucus Rare H (None) /hpf Urine Opiates Screen Detected H (NotDetected) Ur Barbiturates Screen Detected H (NotDetected) U Benzodiazepines Scrn Detected H (NotDetected) 02/12/21 02/12/21 02/12/21 Range/Units 13:59 16:07 21:30 Sodium 128 L (137-145) mmol/L Chloride 92 L (98-107) mmol/L BUN 43 H (7-17) mg/dL Creatinine 3.21 H (0.52-1.04) mg/dL Glucose 111 H (74-99) mg/dL POC Glucose (mg/dL) 135 H (75-99) mg/dL Troponin I 0.063 H* (0.000-0.034) ng/mL Procalcitonin (0.02-0.09) ng/mL Urine Protein (Negative) Urine Blood (Negative) Urine Bacteria (None) /hpf Urine Mucus (None) /hpf Urine Opiates Screen (NotDetected) Ur Barbiturates Screen (NotDetected) U Benzodiazepines Scrn (NotDetected) 02/13/21 Range/Units 06:08 Sodium (137-145) mmol/L Chloride (98-107) mmol/L BUN (7-17) mg/dL Creatinine (0.52-1.04) mg/dL Glucose (74-99) mg/dL POC Glucose (mg/dL) 123 H (75-99) mg/dL Troponin I (0.000-0.034) ng/mL Procalcitonin (0.02-0.09) ng/mL Urine Protein (Negative) Urine Blood (Negative) Urine Bacteria (None) /hpf Urine Mucus (None) /hpf Urine Opiates Screen (NotDetected) Ur Barbiturates Screen (NotDetected) U Benzodiazepines Scrn (NotDetected)
--- NOTE | 2021-02-13 08:45 | XR ---
EXAMINATION TYPE: XR chest 1V portable DATE OF EXAM: 02/13/2021 HISTORY: Shortness of breath. COMPARISON: 02/12/2021 TECHNIQUE: Single view of the chest is submitted. FINDINGS: Demonstrated are scattered senescent parenchymal change. Patchy basilar infiltrates persist without significant interval change. The heart is stable. Hilar and mediastinal structures are within normal limits. Degenerative changes are seen of the dorsal spine. IMPRESSION: 1. Patchy basilar infiltrates persist without significant interval change.
[2021-02-13 08:49] LABS: HCT 35.2 % (34.0-46.0); HGB 10.6 gm/dL (11.4-16.0); Hypochromasia Slight; MCHC 30.1 g/dL (31.0-37.0); MCV 106.1 fL (80.0-100.0); Macrocytosis Moderate; Mean Platelet Volume 7.5; Platelet Count 185 k/uL (150-450); RBC 3.32 m/uL (3.80-5.40); RDW 14.9 % (11.5-15.5); WBC 6.7 k/uL (3.8-10.6)
[2021-02-13 09:03] LABS: Calcium 9.5 mg/dL (8.4-10.2); Phosphorus 3.9 mg/dL (2.5-4.5); Potassium 4.6 mmol/L (3.5-5.1)
[2021-02-13 11:40] LABS: Glucose,Whole Blood 125 mg/dL (75-99)
[2021-02-13] MEDS: ASPIRIN 81 MG PO SCH (12:15)
[2021-02-13] MEDS: FUROSEMIDE 80 MG TAB PO SCH ×2 (12:15→17:11)
[2021-02-13] MEDS: METOPROLOL TARTRATE 25 MG TAB PO SCH ×2 (12:15→19:58)
[2021-02-13] MEDS: CINACALCET 30 MG TAB PO SCH (12:16)
[2021-02-13] MEDS: ACETAMINOPHEN TAB 325 MG TAB PO PRN (12:16)
--- NOTE | 2021-02-13 16:15 | PN ---
PROGRESS NOTE Patient is seen for followup for end-stage renal disease. Currently patient is on hemodialysis. She states she is feeling better. Her respiratory status has improved. She is maintained on 4 L nasal cannula currently. PHYSICAL EXAMINATION: On examination today, blood pressure 147/78, heart rate 99 per minute. Examination of the heart S1, S2. Examination of the lungs, bilateral breath sounds are heard. Abdomen is soft, nontender, obese. Examination of lower extremities shows edema 1+ bilaterally. CARDIAC EXERCISE SPECIALIST exam grossly intact. LAB: Show sodium 130, potassium 4.6, chloride 92, BUN 37, creatinine 3.27, hemoglobin 10.6. ASSESSMENT: 1. End-stage renal disease on hemodialysis on a Saturday, Saturday, Saturday schedule, status post dialysis yesterday. We had about 3 L of ultrafiltration. Patient is being dialyzed again today with plans for UF of about 3 L again. 2. Volume overload, currently improving. Expect further improvement with another 3 L of ultrafiltration today. 3. Hyperkalemia, improved post dialysis. 4. Hypervolemic hyponatremia, improved with dialysis. 5. Possible pneumonia, maintained on empiric antibiotics. PLAN: Hemodialysis today. Increase UF to 3.5 L as tolerated. MMODL / IJN: [id number] /
[2021-02-13 16:38] LABS: Hepatitis B Surface AB- Quant <3.5 mIU/mL; Hepatitis B Surface Antibody Non-Reactive (Non-Reactive)
[2021-02-13 16:40] LABS: Glucose,Whole Blood 118 mg/dL (75-99)
[2021-02-13] MEDS: INSULIN ASPART (NovoLOG) 100 UNIT/ML VIAL SQ SCH (17:10)
[2021-02-13 19:40] LABS: Glucose,Whole Blood 153 mg/dL (75-99)
[2021-02-13] MEDS: ATORVASTATIN 10 MG TAB PO SCH (19:57)
[2021-02-13] MEDS: traZODone HCL 50 MG TAB PO SCH (19:58)
[2021-02-13] MEDS: MONTELUKAST 10 MG TAB PO SCH (19:58)
[2021-02-13] MEDS: PRIMIDONE 50 MG TAB PO SCH (19:58)
[2021-02-13] MEDS ORDERED: GABAPENTIN 300 MG CAP PO SCH (20:00)
[2021-02-14] MEDS: hydrALAZINE HCL 25 MG TAB PO SCH ×4 (00:52→23:43)
[2021-02-14 04:20] VITALS: RESP 18
[2021-02-14 05:40] LABS: Glucose,Whole Blood 149 mg/dL (75-99)
[2021-02-14] MEDS: INSULIN ASPART (NovoLOG) 100 UNIT/ML VIAL SQ SCH ×3 (06:34→17:07)
[2021-02-14] MEDS: PANTOPRAZOLE 40 MG TABLET PO SCH (06:34)
[2021-02-14] MEDS: PHENYTOIN SODIUM EXTENDED 100 MG CAP PO SCH ×3 (06:34→21:05)
[2021-02-14] MEDS: ALBUTEROL NEBULIZED 2.5 MG/3 ML INHALATION SCH ×4 (07:41→20:30)
[2021-02-14] MEDS: SYMBICORT 80-4.5 MCG INHALER INHALATION SCH ×2 (07:41→20:36)
[2021-02-14] MEDS: ASPIRIN 81 MG PO SCH (09:23)
[2021-02-14] MEDS: METOPROLOL TARTRATE 25 MG TAB PO SCH ×2 (09:23→21:04)
[2021-02-14] MEDS: CALCIUM ACETATE 667 MG TAB PO SCH ×4 (09:24→21:04)
[2021-02-14] MEDS: CINACALCET 30 MG TAB PO SCH (09:24)
[2021-02-14 10:11] LABS: HCT 35.6 % (34.0-46.0); HGB 10.8 gm/dL (11.4-16.0); Hypochromasia Moderate; MCH 32.6 pg (25.0-35.0); MCHC 30.4 g/dL (31.0-37.0); MCV 107.2 fL (80.0-100.0); Macrocytosis Marked; Mean Platelet Volume 7.4; Platelet Count 191 k/uL (150-450); RBC 3.32 m/uL (3.80-5.40)
[2021-02-14 10:28] LABS: Calcium 8.5 mg/dL (8.4-10.2); Potassium 4.3 mmol/L (3.5-5.1)
[2021-02-14 11:41] LABS: Glucose,Whole Blood 91 mg/dL (75-99)
--- NOTE | 2021-02-14 13:06 | PN ---
PROGRESS NOTE Patient is seen for followup for end-stage renal disease. She was dialyzed yesterday. We had about 3 L of ultrafiltration again. The patient tolerated the procedure well. On examination today, blood pressure was 151/80, heart rate 90 per minute. She is afebrile. EXAMINATION OF THE HEART: S1 and S2. EXAMINATION OF LUNGS: Bilateral breath sounds are heard. ABDOMEN: Soft, obese. LOWER EXTREMITIES: Examination of lower extremities shows no evidence of edema. ENVIRONMENTAL MARKETING REPRESENTATIVE EXAM: Grossly intact. Labs show sodium 131, potassium 4.3, chloride 97, BUN 48, creatinine 4.3, hemoglobin 10.8 g/dL. ASSESSMENT: 1. End-stage renal disease, on hemodialysis on a Saturday, Saturday, Saturday schedule. 2. Volume overload, currently improved. 3. Chronic kidney disease mineral bone disorder. 4. Hypervolemic hyponatremia, improved post dialysis. 5. Hyperkalemia, currently improved post renal replacement therapy. PLAN: Hemodialysis in a.m. MMODL / IJN: [id number] / TWYLA
--- NOTE | 2021-02-14 13:25 | P.PN ---
Subjective Patient was seen and evaluated by me this morning. She was sitting in the chair. She does not have any complaints. Objective - Vital Signs Vital signs: Vital Signs Temp 97.5 F L 02/14/21 08:00 Pulse 89 02/14/21 11:24 Resp 18 02/14/21 08:00 BP 151/80 02/14/21 08:00 Pulse Ox 96 02/14/21 08:00 Intake & Output 02/13/21 02/14/21 02/14/21 18:59 06:59 18:59 Intake Total 840 420 Output Total 3225 0 Balance -2385 420 Weight 107.5 kg Intake: Oral 840 420 Output: Urine 225 0 Stool 0 Hemodialysis 3000 Other: Voiding Method Indwelling Catheter External Catheter External Catheter # Voids 0 0 # Bowel Movements 0 0 - Exam General: The patient is awake and alert, in no distress Eye: there is normal conjunctiva bilaterally. Neck: The neck is supple, there is no JVD. Cardiovascular: Normal S1-S2, no S3-S4, no murmurs. Respiratory: Lungs clear to auscultation bilaterally Gastrointestinal: Abdomen is soft, nontender Musculoskeletal: There is no pedal edema. Neurological:. Speech is normal. Skin: Skin is warm and dry - Labs CBC & Chem 7: 02/14/21 09:36 02/14/21 09:36 Labs: Abnormal Lab Results - Last 24 Hours (Table) 02/13/21 02/13/21 02/14/21 Range/Units 16:38 19:38 05:39 RBC (3.80-5.40) m/uL Hgb (11.4-16.0) gm/dL MCV (80.0-100.0) fL MCHC (31.0-37.0) g/dL Macrocytosis Sodium (137-145) mmol/L Chloride (98-107) mmol/L BUN (7-17) mg/dL Creatinine (0.52-1.04) mg/dL Glucose (74-99) mg/dL POC Glucose (mg/dL) 118 H 153 H 149 H (75-99) mg/dL 02/14/21 02/14/21 Range/Units 09:36 09:36 RBC 3.32 L (3.80-5.40) m/uL Hgb 10.8 L (11.4-16.0) gm/dL MCV 107.2 H (80.0-100.0) fL MCHC 30.4 L (31.0-37.0) g/dL Macrocytosis Marked A Sodium 131 L (137-145) mmol/L Chloride 97 L (98-107) mmol/L BUN 48 H (7-17) mg/dL Creatinine 4.30 H (0.52-1.04) mg/dL Glucose 126 H (74-99) mg/dL POC Glucose (mg/dL) (75-99) mg/dL Assessment and Plan Assessment: Patient is a 65-year-old female with a history of end-stage renal disease on dialysis Saturday/Saturday/Saturday, diabetes, chronic liver disease, COPD, and irritable bowel syndrome [facility]. In the ER she underwent an extensive evaluation. Initial vital signs demonstrated oxygen saturation of 98% on BiPAP. Initial laboratory analysis showed a sodium of 128, potassium 6, BUN 43, creatinine 3.39, VBG with pH of 7.34, and a mildly elevated troponin at 0.049. Urinalysis negative. Her urine drug screen demonstrated opiates, barbiturates, benzodiazepines. Her COVID-19 testing was negative. Chest x-ray showed pulmonary fibrosis with master baker lesley density in the right base consistent with scarring or pneumonia, a febrile without symptoms. Head CT shows cerebral atrophy with no acute intracranial abnormality. She was admitted for further management. Nephrology was called and patient underwent urgent HD. ESRD Hyponatremia -Nephrology recommendations appreciated, anticipate HD in the morning -Nephrocaps, PhosLo, Sensipar Acute encephalopathy, now resolved -ammonia was normal -CT head unchanged -Hold Neurontin, Xanax, and [place] DM 2 with neuropathy, [id number] -Not on medications in the outpatient setting -Sliding-scale insulin, follow Accu-Cheks -Neurontin is on hold secondary to altered mentation COPD without exacerbation -Bronchodilators Elevated troponin, flat - not consistent with ACS and suspect due to chronic renal failure - Patient chest pain free. - EKG consistent with prior less bundle block Hyperkalemia, resolved Chronic: HTN-resume home hydralazine, Lopressor, Lasix, follow blood pressures HLD-statin OA GERD Cirrhosis Kidney stones Irritable bowel syndrome Chronic back pain DVT prophylaxis: Heparin Discussed with: Nursing Anticipated discharge date: in 1-[address]: return to [facility] A total of 35 minutes was spent on the care of this complex patient more than 50% of the time was spent in counseling and care coordination.
--- NOTE | 2021-02-14 14:14 | CDI ---
Documentation Clarification Form Date: 02/14/2021 01:48:24 PM From: Mikki Jim RN, CCDS Admit Date: 02/12/2021 09:01:00 AM Patient Name: Brie Lei Visit Number: [id number] Discharge Date: ATTENTION: The Clinical Documentation Specialists (CDI) and [facility] Coding Staff appreciate your assistance in clarifying documentation. Please respond to the clarification below the line at the bottom and electronically sign. The CDI & [facility] Coding staff will review the response and follow-up if needed. Please note: Queries are made part of the Legal Health Record. If you have any questions, please contact the author of this message via ITS. Dr. Dakota Kovacs Your patient has the documented symptom of Altered Mental Status acute encephalopathy Additional clarification regarding the etiology/cause of this symptom is requested. History/Risk Factors: ESRD, chronic liver disease, COPD, Hypertension Chronic respiratory failure with home O2 Clinical Indicators: 65-year-old female present to ED from [facility] secondary to altered mentation. 02/12 Vital sign: 146/86 86 24 98.9 98 % BiPAP 02/12 Labs: Sodium 128, Potassium 6.0, BUN 43, CR 3.39; Troponin 0.49, 0.051, 0.063; UDS positive for Opiates, Barbiturates, Benzodiazepines, Covid-19 Not detected; ABG: pH 7.34, pCO2 56, HCO3 30 02/12 Chest X Ray: Pulmonary fibrosis. There is chronic density at the right lung base consistent with scarring and pneumonia that is significantly different than old exam. CT Brain: Cerebral atrophy. No acute intracranial abnormality. Treatment: Telemetry monitoring Neuro Checks per protocol Hold Neurontin, Xanax and [place] Please clarify the type of encephalopathy [ ] Metabolic Encephalopathy due to (specify [ X ] Toxic Encephalopathy due to medication (specify [ ] Other condition (please specify) [ ] Unable to determine (Template Last Revised: June 2020) MTDD
[2021-02-14] MEDS: ACETAMINOPHEN TAB 325 MG TAB PO PRN (15:48)
[2021-02-14] MEDS: FUROSEMIDE 80 MG TAB PO SCH (15:48)
[2021-02-14 16:45] LABS: Glucose,Whole Blood 145 mg/dL (75-99)
[2021-02-14 19:32] LABS: Glucose,Whole Blood 115 mg/dL (75-99)
[2021-02-14] MEDS: traZODone HCL 50 MG TAB PO SCH (21:04)
[2021-02-14] MEDS: PRIMIDONE 50 MG TAB PO SCH (21:04)
[2021-02-14] MEDS: ATORVASTATIN 10 MG TAB PO SCH (21:04)
[2021-02-14] MEDS: MONTELUKAST 10 MG TAB PO SCH (21:04)
[2021-02-14] MEDS ORDERED: MELATONIN 3 MG TABLET PO SCH (22:30)
[2021-02-15 05:49] LABS: Glucose,Whole Blood 124 mg/dL (75-99)
[2021-02-15] MEDS: INSULIN ASPART (NovoLOG) 100 UNIT/ML VIAL SQ SCH ×2 (06:16→12:26)
[2021-02-15] MEDS: PHENYTOIN SODIUM EXTENDED 100 MG CAP PO SCH ×2 (06:33→14:15)
[2021-02-15] MEDS: PANTOPRAZOLE 40 MG TABLET PO SCH (06:33)
[2021-02-15] MEDS: ACETAMINOPHEN TAB 325 MG TAB PO PRN (06:36)
[2021-02-15] MEDS: SYMBICORT 80-4.5 MCG INHALER INHALATION SCH (08:32)
[2021-02-15] MEDS: ALBUTEROL NEBULIZED 2.5 MG/3 ML INHALATION SCH ×2 (08:32→11:57)
--- NOTE | 2021-02-15 08:41 | CDI ---
Documentation Clarification Form Date: 02/15/2021 07:41:53 AM From: Mikki Jim RN, CCDS Admit Date: 02/12/2021 09:01:00 AM Patient Name: Brie Lei Visit Number: [id number] Discharge Date: ATTENTION: The Clinical Documentation Specialists (CDI) and [facility] Coding Staff appreciate your assistance in clarifying documentation. Please respond to the clarification below the line at the bottom and electronically sign. The CDI & [facility] Coding staff will review the response and follow-up if needed. Please note: Queries are made part of the Legal Health Record. If you have any questions, please contact the author of this message via ITS. Dr. Kaia Gunderson Possible pneumonia is documented in your consult and subsequent progress notes. You indicate that patient is maintained on antibiotics which is not showing on the medication list. Additional clarification regarding pneumonia is requested. History/Risk Factors: ESRD on hemodialysis, CHF, COPD, Hypertension Diabetes, chronic liver disease, chronic respiratory failure with home O2 Clinical Indicators: 65-year-old female present to ED on 02/12 with altered mental status, shortness of breath. 02/12 Vital sign on admission: 146/86 86 24 98 % BIPAP Lungs decreased breath sounds at the bases 02/12 WBC/Left shift: 8.8 Chest x-ray: Pulmonary fibrosis. There is chronic density at the right lung base consistent with scarring and pneumonia that is significantly different than old exam. Treatment: Monitor o2 Sat's (titrate) Ventolin Nebulized 2.5 MG inhalation QID PRN Symbicort 80-4.5 Mcg Inhaler BID Please clarify pneumonia: [ ] Pneumonia ruled in (specify type) [ ] Pneumonia ruled out [ ] Other, please specify [ ] Unable to determine Unlikely to be pneumonia. Pt did not get antibiotics and sx improved with HD. Therefore mostly volume overload. (Template Last Revised: July 2020) MTDD
[2021-02-15 09:11] VITALS: TEMP 98.3
--- NOTE | 2021-02-15 09:20 | CDI ---
Documentation Clarification Form Date: 02/15/2021 08:43:03 AM From: Mikki Jim RN, CCDS Admit Date: 02/12/2021 09:01:00 AM Patient Name: Brie Lei Visit Number: [id number] Discharge Date: ATTENTION: The Clinical Documentation Specialists (CDI) and [facility] Coding Staff appreciate your assistance in clarifying documentation. Please respond to the clarification below the line at the bottom and electronically sign. The CDI & [facility] Coding staff will review the response and follow-up if needed. Please note: Queries are made part of the Legal Health Record. If you have any questions, please contact the author of this message via ITS. Dr. Dakota Kovacs Your patient has the documented diagnosis of unspecified CHF. Additional information regarding the type and acuity of CHF is requested. 02/12 Nephrology consult: Past medical history: significant for end-stage renal disease, history of CHF. History/Risk Factors: CHF, COPD, Hypertension ESRD on HD, Diabetes Type 2 Clinical Indicators: 65-year-old female with documented past medical history of CHF with ongoing treatment. 02/13 Chest x-ray: Patchy basilar infiltrates persist without significant interval change 09/08/20 last reported Echocardiogram Results: Overall left ventricular systolic function is moderate-severe impaired with, an EF between 30-35 % Treatment: Lasix 40 mg IV once (02/12/21) Lasix 80 MG PO BID Lopressor 25 mg PO BID In your professional opinion, can you please clarify the acuity and type of CHF if known? [ ] Acute Systolic Heart Failure (reduced EF) [ ] Chronic Systolic Heart Failure (reduced EF) [ ] Acute on Chronic Systolic Heart Failure (reduced EF) [ ] Acute Diastolic Heart Failure (preserved EF) [ X ] Chronic Diastolic Heart Failure (preserved EF) [ ] Acute on Chronic Diastolic Heart Failure (preserved EF) [ ] Acute Systolic & Diastolic Heart Failure [ ] Chronic Systolic & Diastolic Heart Failure [ ] Acute on Chronic Heart Failure Systolic & Diastolic Heart Failure [ ] Other, please specify [ ] Unable to determine (Template Last Revised: June 2020) MTDD
[2021-02-15] MEDS: CALCIUM ACETATE 667 MG TAB PO SCH ×2 (09:39→12:36)
[2021-02-15] MEDS: CINACALCET 30 MG TAB PO SCH (09:39)
[2021-02-15] MEDS: ASPIRIN 81 MG PO SCH (09:39)
[2021-02-15] MEDS ORDERED: HYDROcodone/APAP 5-325MG 1 EACH TAB PO PRN (11:41)
--- NOTE | 2021-02-15 11:46 | P.DS ---
Providers Date of admission: 02/12/21 09:01 Expected date of discharge: 02/15/21 Attending physician: Marie Anna DO Consults: 02/12/21 09:02 Consult Physician Routine Consulting Provider: Kaia Gunderson Consult Reason/Comments: Dialysis patient Do you want consulting provider notified?: Yes Primary care physician: Cj Campos MD Hospital Course: Patient is a 65-year-old female with a history of end-stage renal disease on dialysis Saturday/Saturday/Saturday, diabetes, chronic liver disease, COPD, and irritable bowel syndrome who [facility] to altered mentation. In the ER she underwent an extensive evaluation. Initial vital signs demonstrated oxygen saturation of 98% on BiPAP. Initial laboratory analysis showed a sodium of 128, potassium 6, BUN 43, creatinine 3.39, VBG with pH of 7.34, and a mildly elevated troponin at 0.049. Urinalysis negative. Her urine drug screen demonstrated opiates, barbiturates, benzodiazepines. Her COVID-19 testing was negative. Chest x-ray showed pulmonary fibrosis with chronic density in the right base consistent with scarring or pneumonia, a febrile without symptoms. Head CT shows cerebral atrophy with no acute intracranial abnormality. She was admitted for further management. Nephrology was called and patient underwent urgent HD. Toxic encephalopathy secondary to polypharmacy -Xanax will be discontinued. Continue [place]ced[place] for chronic pain. -ammonia was normal -CT head unchanged ESRD Hyponatremia -Nephrology recommendations appreciated, hemodialysis as scheduled -Nephrocaps, PhosLo, Sensipar DM 2 with neuropathy, diet-controlled. [id number] -Not on medications in the outpatient setting COPD without exacerbation -Bronchodilators Elevated troponin, flat Chronic diastolic heart failure with no evidence of exacerbation - not consistent with ACS and suspect due to chronic renal failure - Patient chest pain free. - EKG consistent with prior less bundle block Hyperkalemia, resolved Chronic: HTN-resume home hydralazine, Lopressor, Lasix, follow blood pressures HLD-statin OA GERD Cirrhosis Kidney stones Irritable bowel syndrome Chronic back pain Patient will be discharged back to [facility] in a stable condition. She was seen, evaluated, and examined by me today. Plan - Discharge Summary Discharge Rx Participant: No New Discharge Prescriptions: Continue Phenytoin Sodium Extended [Dilantin] 100 mg PO TID@0600,1400,2200 Primidone [Mysoline] 100 mg PO HS@1999 traZODone HCL 150 mg PO HS@1999 Lidocaine-Prilocaine Cream [Emla Cream 2.5%/2.5%] 1 applic TOPICAL MOWEFR Folic Acid-Vit B Complex-Vit C [Nephrocaps] 1 cap PO DAILY@0800 Calcium Acetate 2,001 mg PO TID@0900,1300,1800 Albuterol Inhaler [Ventolin Hfa Inhaler] 2 puff INHALATION RT-Q6H@00,06,12,18 Furosemide [Lasix] 80 mg PO BID@0800,1600 Metoprolol Tartrate [Lopressor] 25 mg PO BID@0800,1999 Atorvastatin [Lipitor] 10 mg PO HS@1999 tab HYDROcodone/APAP 5-325MG [[place] 5-325] 1 each PO Q6HR PRN #12 tab PRN Reason: Pain Cinacalcet [Sensipar] 30 mg PO HS Aspirin 81 mg PO DAILY@0800 Calcium Acetate [PhosLo] 667 mg PO HS@1999 Fluticasone/Vilanterol [Breo Ellipta 100-25 Mcg Inhaler] 1 puff INHALATION RT-DAILY@0800 Omeprazole 20 mg PO DAILY@0800 Montelukast [Singulair] 10 mg PO HS@1999 hydrALAZINE HCL [Apresoline] 25 mg PO TID@0000,0800,1600 Acetaminophen Tab [Tylenol] 650 mg PO Q6H PRN PRN Reason: Pain Gabapentin [Neurontin] 300 mg PO MOWEFR@1999 Discontinued ALPRAZolam [Xanax] 0.5 mg PO Q8H PRN PRN Reason: Anxiety Discharge Medication List Phenytoin Sodium Extended [Dilantin] 100 mg PO TID@0600,1400,2200 11/29/15 [History] Primidone [Mysoline] 100 mg PO HS@199907/20/18 [History] Calcium Acetate 2,001 mg PO TID@0900,1300,1800 09/06/20 [History] Calcium Acetate [PhosLo] 667 mg PO HS@199909/06/20 [History] Fluticasone/Vilanterol [Breo Ellipta 100-25 Mcg Inhaler] 1 puff INHALATION RT- DAILY@0800 09/06/20 [History] Folic Acid-Vit B Complex-Vit C [Nephrocaps] 1 cap PO DAILY@0800 09/06/20 [History] Lidocaine-Prilocaine Cream [Emla Cream 2.5%/2.5%] 1 applic TOPICAL MOWEFR 09/06/20 [History] traZODone HCL 150 mg PO HS@199909/06/20 [History] Albuterol Inhaler [Ventolin Hfa Inhaler] 2 puff INHALATION RT-Q6H@00,06,12,18 09/16/20 [History] Omeprazole 20 mg PO DAILY@0800 09/16/20 [History] Furosemide [Lasix] 80 mg PO BID@0800,1600 09/22/20 [History] Metoprolol Tartrate [Lopressor] 25 mg PO BID@0800,199909/22/20 [History] Montelukast [Singulair] 10 mg PO HS@199909/22/20 [History] hydrALAZINE HCL [Apresoline] 25 mg PO TID@0000,0800,1600 09/22/20 [History] Atorvastatin [Lipitor] 10 mg PO HS@1999 tab 10/04/20 [Rx] HYDROcodone/APAP 5-325MG [[place] 5-325] 1 each PO Q6HR PRN #12 tab 10/04/20 [Rx] Acetaminophen Tab [Tylenol] 650 mg PO Q6H PRN 02/12/21 [History] Aspirin 81 mg PO DAILY@0800 02/12/21 [History] Cinacalcet [Sensipar] 30 mg PO HS 02/12/21 [History] Gabapentin [Neurontin] 300 mg PO MOWEFR@199902/12/21 [History] Follow up Appointment(s)/Referral(s): Cj Campos MD [Primary Care Provider] - 1-2 days Discharge Disposition: TRANSFER TO SNF/ECF
[2021-02-15 12:04] LABS: Glucose,Whole Blood 107 mg/dL (75-99)
[2021-02-15 14:14] VITALS: BP 106/49; PULSE 89
[2021-02-15] MEDS: FUROSEMIDE 80 MG TAB PO SCH (14:15)
[2021-02-15] MEDS: METOPROLOL TARTRATE 25 MG TAB PO SCH (14:15)
--- NOTE | 2021-02-15 20:01 | PN ---
PROGRESS NOTE Patient is seen for followup for end-stage renal disease. She is currently seen on hemodialysis, tolerating her treatment well. PHYSICAL EXAMINATION: On examination today, blood pressure was 124/56, heart rate 80 per minute. She is afebrile. Examination of the heart S1, S2. Examination of the lungs, decreased breath sounds at the bases. Abdomen is soft, nontender. Examination of lower extremities shows no significant edema. 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 LABS: Not available from today. ASSESSMENT: 1. End-stage renal disease, on hemodialysis on a Saturday, Saturday, Saturday schedule. 2. Fluid overload currently significantly improved. 3. Chronic kidney disease, mineral bone disorder. PLAN: Hemodialysis today. Goal UF 2-3 L following which patient can be discharged from nephrology standpoint. Follow up as outpatient for hemodialysis on Saturday. MMODL / IJN: [id number] /
== END 2021-02-15 15:10 | DRG 91 ==
LOC: EC 05:00 → 3SCARD 09:01
PROVIDERS: ADMIT Internal Medicine; ATTEND Internal Medicine
PROC: 5A09357 Assistance with Respiratory Ventilation, Less than 24 Consecutive Hours, Continuous Positive Airway Pressure (ICD-10-PCS; principal; 2021-02-12)
PROC: 5A1D70Z Performance of Urinary Filtration, Intermittent, Less than 6 Hours Per Day (ICD-10-PCS; principal; 2021-02-12)
DX: G92 Toxic encephalopathy (principal); N18.6 End stage renal disease; I13.2 Hypertensive heart and chronic kidney disease with heart failure and with stage 5 chronic kidney disease, or end stage renal disease; I50.32 Chronic diastolic (congestive) heart failure; E87.1 Hypo-osmolality and hyponatremia; J96.10 Chronic respiratory failure, unspecified whether with hypoxia or hypercapnia; T42.4X5A Adverse effect of benzodiazepines, initial encounter; E11.22 Type 2 diabetes mellitus with diabetic chronic kidney disease; D63.1 Anemia in chronic kidney disease; Z99.2 Dependence on renal dialysis; Z87.891 Personal history of nicotine dependence; E11.40 Type 2 diabetes mellitus with diabetic neuropathy, unspecified; E66.9 Obesity, unspecified; G40.909 Epilepsy, unspecified, not intractable, without status epilepticus; Z20.822 Contact with and (suspected) exposure to COVID-19; E83.9 Disorder of mineral metabolism, unspecified; K76.0 Fatty (change of) liver, not elsewhere classified; J84.10 Pulmonary fibrosis, unspecified; G89.29 Other chronic pain; J44.9 Chronic obstructive pulmonary disease, unspecified; Z99.81 Dependence on supplemental oxygen; K74.60 Unspecified cirrhosis of liver; F32.9 Major depressive disorder, single episode, unspecified; E87.70 Fluid overload, unspecified; M15.9 Polyosteoarthritis, unspecified; R77.8 Other specified abnormalities of plasma proteins; E78.5 Hyperlipidemia, unspecified; M54.9 Dorsalgia, unspecified; E87.5 Hyperkalemia; K21.9 Gastro-esophageal reflux disease without esophagitis; K58.9 Irritable bowel syndrome, unspecified; N20.0 Calculus of kidney; T50.905A Adverse effect of unspecified drugs, medicaments and biological substances, initial encounter; F41.9 Anxiety disorder, unspecified; Z79.82 Long term (current) use of aspirin; Z79.899 Other long term (current) drug therapy; Z82.49 Family history of ischemic heart disease and other diseases of the circulatory system; Z83.3 Family history of diabetes mellitus; Z87.442 Personal history of urinary calculi; Z90.710 Acquired absence of both cervix and uterus; Z98.890 Other specified postprocedural states; Z88.0 Allergy status to penicillin
CPT/HCPCS: 36415; 70450; 71045; 80048; 80053; 80306; 81001; 82140; 82803; 83605; 83735; 84100; 84145; 84484; 85025; 85027; 85610; 85730; 86706; 87340; 87635; 90935; 93005; 94640; 94660; 94760; 99285

== ENCOUNTER 2021-03-20 11:40 | Inpatient (IN) | payer MEDICARE, OTHER ==
[2021-03-20] MEDS ORDERED: ONDANSETRON 4 MG/2 ML VIAL IVP STA (12:27)
[2021-03-20] MEDS ORDERED: MORPHINE SULFATE 4 MG/ML SYRINGE IVP STA (12:28)
[2021-03-20] MEDS ORDERED: IPRATROPIUM-ALBUTEROL 3 ML NEB INHALATION STA (12:29)
--- NOTE | 2021-03-20 12:43 | XR ---
EXAMINATION TYPE: XR tibia fibula bilateral, XR knee limited bilateral DATE OF EXAM: 03/20/2021 CLINICAL HISTORY: pain TECHNIQUE: AP and lateral images of the bilateral tibia and fibula are obtained. 3 views of the bila teral knees are also submitted. COMPARISON: None. FINDINGS: Right tib-fib and knee: Fracture of the proximal fibula and tibial diaphyses with mild displacement n oted at each fracture site. Comminution noted tibial component. No additional fractures noted. No fra cture about the knee. Distal femoral bone infarct are noted. Left tibia and fibula and left knee:Fracture of the proximal fibula and tibial diaphyses with mild di splacement noted at each fracture site. Comminution noted tibial component. Additional fracture invol ving the midshaft of the left fibula. No fractures about the left knee. IMPRESSION: Bilateral tibial fractures as noted.
[2021-03-20 13:19] LABS: ALT 20 U/L (4-34); AST 29 U/L (14-36); African American GFR (CKD) 21 (>60 ml/min/1.73 sqM); Albumin 4.1 g/dL (3.5-5.0); Alcohol <10 mg/dL; Alkaline Phosphatase 141 U/L (38-126); Anion Gap 9 mmol/L; Blood Urea Nitrogen 27 mg/dL (7-17); Calcium 8.6 mg/dL (8.4-10.2); Carbon Dioxide 33 mmol/L (22-30); Chloride 92 mmol/L (98-107); Glucose 132 mg/dL (74-99); Non-African American GFR(CKD) 18 (>60 ml/min/1.73 sqM); Potassium 5.1 mmol/L (3.5-5.1); Sodium 134 mmol/L (137-145); Total Bilirubin 0.6 mg/dL (0.2-1.3); Total Protein 7.3 g/dL (6.3-8.2)
--- NOTE | 2021-03-20 13:19 | ED ---
General Adult HPI - General Chief complaint: Extremity Injury, Lower Stated complaint: Fall Time Seen by Provider: 03/20/21 12:08 Source: patient, EMS, RN notes reviewed, old records reviewed Mode of arrival: EMS Limitations: physical limitation - History of Present Illness Initial comments: I evaluated the patient when she was placed in a room. Patient is a 66-year-old female with past medical history remarkable for chronic COPD on 4L home O2, diabetes, hypertension, seizure disorder, hepatic encephalopathy, ESRD on hemodialysis M/W/F, diabetes, IBS is currently under baseline mental status presents emergency Department after a fall. Patient received dialysis today. She was being transferred from her wheelchair when she fell to the ground. She landed on bilateral knees. She did not hit her head. She is not on blood thinners. Patient was unable to ambulate afterwards. EMS called and she was brought to the emergency department for evaluation. She is to obvious deformities to the anterior aspect of both tibia. There is some bruising at this site as well. No skin breakage or signs of open fracture. She continues to state that she is in pain. She has no other acute complaints at this time. EMS states she is at her baseline mental status. She is alert and oriented intermittently 2-3, however states she is in pain and does not respond to questions. She is no other acute complaints at this time. Patient presents from [facility]. - Related Data Home Medications Medication Instructions Recorded Confirmed Phenytoin Sodium Extended 100 mg PO TID@0600,1400,2200 11/29/15 03/20/21 [Dilantin] Primidone [Mysoline] 100 mg PO HS@199907/20/18 03/20/21 Calcium Acetate 2,001 mg PO TID@0900,1300,1800 09/06/20 03/20/21 Calcium Acetate [PhosLo] 667 mg PO HS@199909/06/20 03/20/21 Fluticasone/Vilanterol [Breo 1 puff INHALATION RT-DAILY@79909/06/20 03/20/21 Ellipta 100-25 Mcg Inhaler] Folic Acid-Vit B Complex-Vit C 1 cap PO DAILY@0800 09/06/20 03/20/21 [Nephrocaps] Lidocaine-Prilocaine Cream [Emla 1 applic TOPICAL MOWEFR 09/06/2003/20/21 Cream 2.5%/2.5%] traZODone HCL 150 mg PO HS@199909/06/20 03/20/21 Albuterol Inhaler [Ventolin Hfa 2 puff INHALATION 09/16/20 03/20/21 Inhaler] RT-Q6H@00,06,12,18 Omeprazole 20 mg PO DAILY@0800 09/16/20 03/20/21 Furosemide [Lasix] 80 mg PO BID@0800,1600 09/22/20 03/20/21 Metoprolol Tartrate [Lopressor] 25 mg PO BID@0800,199909/22/20 03/20/21 Montelukast [Singulair] 10 mg PO HS@199909/22/20 03/20/21 hydrALAZINE HCL [Apresoline] 25 mg PO Q8H 09/22/20 03/20/21 Aspirin 81 mg PO DAILY@0800 02/12/21 03/20/21 Cinacalcet [Sensipar] 30 mg PO HS 02/12/21 03/20/21 ALPRAZolam [Xanax] 0.5 mg PO Q8H PRN 03/20/21 03/20/21 Acetaminophen [Tylenol Arthritis] 650 mg PO Q6H PRN 03/20/21 03/20/21 Folic Acid 1 mg PO DAILY 03/20/21 03/20/21 Previous Rx's Medication Instructions Recorded Atorvastatin [Lipitor] 10 mg PO HS@1999 tab 10/04/20 Gabapentin [Neurontin] 300 mg PO MOWEFR@1999 #3 cap 02/15/21 HYDROcodone/APAP 5-325MG [[place] 1 tab PO Q6HR PRN 3 Days #12 tab 02/15/21 5-325] Allergies Allergy/AdvReac Type Severity Reaction Status Date / Time Penicillins Allergy Mild Swelling Verified 03/20/21 13:01 Review of Systems ROS Statement: Those systems with pertinent positive or pertinent negative responses have been documented in the HPI. Review of Systems: Difficult to obtain a full review of systems, however patient's only complaint at this time is bilateral lower extremity pain. CONST: Denies fever EYES: Denies blurry vision ENT: Denies nasal congestion C/V: Denies Chest pain RESP: Denies shortness of breath GI: Denies abdominal pain : Denies dysuria SKIN: Denies rash. MSK: Endorse's bilateral leg pain. NEURO: Denies headache ROS Other: All systems not noted in ROS Statement are negative. Past Medical History Past Medical History: COPD, Diabetes Mellitus, GERD/Reflux, Hyperlipidemia, Hypertension, Osteoarthritis (OA), Pneumonia, Respiratory Disorder, Seizure D isorder, Vascular Disorder Additional Past Medical History / Comment(s): hepatic encephalopathy/chronic liver disease probably d/t fatty liver advancing to chronic liver disease with possible cirrhosis/acute on chronic renal failure/acute on chronic COPD, AMS d/t elevated ammonia levels/metabolic acidosis/ electrolyte disturbances. Other hx: High ammonia levels, chronic liver disease, kidney stones, CKD stage IV, chronic respiratory failure with home O2 at 4L/NC, NIDDM type II, neuropathy bilateral feet, IBS, arthritis in multiple joints, chronic back pain, current problems with weakness, generalized edema. History of Any Multi-Drug Resistant Organisms: Unobtainable Past Surgical History: Ear Surgery, Hysterectomy, Orthopedic Surgery Additional Past Surgical History / Comment(s): Multiple surgeries/ESWL for kidney stones, bilateral caratid endartectomies, L ankle surgery with metal ro d/pin, R ear surgery for deteriorating eardrum, sinus surgery, colonoscopy. Past Anesthesia/Blood Transfusion Reactions: No Reported Reaction Past Psychological History: Anxiety, Depression Smoking Status: Former smoker Past Alcohol Use History: None Reported Past Drug Use History: Marijuana - Past Family History Mother Family Medical History: Diabetes Mellitus, Hypertension Father Family Medical History: Hypertension General Exam - General Exam Comments Initial Comments: General: Appears in moderate distress secondary to bilateral leg pain and suspected fracture. HEAD: Normal with no signs of head trauma. EYES: PERRLA, EOMI, conjunctiva normal, no discharge. Pupils are 3 mm and equal bilaterally. ENT: Hearing grossly intact, normal oropharynx. RESPIRATORY: Clear breath sounds bilaterally. No wheezes, rales, or rhonchi. Patient is on her home oxygen. C/V: Regular rate and rhythm. S1 and S2 auscultated, no edema, peripheral pulses 2+ and intact throughout. Patient does also have dopplerable pulses in bilateral lower extremities in the DP and PT regions. ABD: Abd is soft, nontender, nondistended EXT: Obvious deformity to the anterior aspect of the proximal tibia and fibula. No open fracture. Bruising at those sites. This is where the patient's pain originates. SKIN: No rashes or lesions observed on exposed skin. NEURO: Alert and oriented to her baseline. No focal sensory strength deficits. At baseline, patient is in a wheelchair and requires assistance with transfers. Limitations: physical limitation Course Vital Signs 03/20/21 03/20/21 03/20/21 11:43 13:00 14:00 Temperature 98.2 F Pulse Rate 93 96 100 Respiratory 20 24 18 Rate Blood Pressure 124/103 119/81 104/55 O2 Sat by Pulse 92 L 96 95 Oximetry 03/20/21 03/20/21 03/20/21 15:00 15:09 15:17 Temperature Pulse Rate 104 H 99 102 H Respiratory 20 Rate Blood Pressure 114/60 O2 Sat by Pulse 95 Oximetry 03/20/21 03/20/21 16:00 17:00 Temperature Pulse Rate 101 H 104 H Respiratory 18 18 Rate Blood Pressure 81/49 117/61 O2 Sat by Pulse 95 95 Oximetry Medical Decision Making - Medical Decision Making Based on the patient's presentation and physical exam, I'm concerned for acute bony thoracic injury to bilateral lower extremities. X-rays were already ordered prior to me evaluating the patient. They revealed bilateral proximal tib-fib fractures. I ordered trauma laboratory studies, we'll place the patient's legs in bilateral knee immobilizers. She'll be given morphine for pain management. We'll also obtain a pelvic x-ray 1 view chest x-ray. She is on oxygen at home and we will restart her on her home O2. COVID-19 swab will be obtained for admission. She also be given a slow do not that she is mildly wheezy. She'll be given Zofran for nausea as well. Patient was in agreement this plan. I spoke with of orthopedic surgery who was in agreement with the bilateral knee immobilizers. Despite the patient's fall, with her significant past medical history we both agreed that the patient should be admitted under medicine service with orthopedic surgery on his consult. He does acknowledge that typically we do admit to orthopedics or trauma for falls, however in this s ituation it is more appropriate to admit to medical team due to the extensive medical history. Screening EKG revealed normal sinus rhythm with a chronic left bundle branch block and no signs of acute ischemia.Laboratory studies were remarkable for a macrocytic anemia with hemoglobin 11.2. Is chronic. Patient's electrolytes are relatively unremarkable, and the patient was just dialyzed. She is an elevated BUN/creatinine setting of ESRD on hemodialysis. Urinalysis shows 2+ protein but no signs of acute infection. Covid is negative. Patient is stable for admission at this time. I spoke with the admitting team under Dr. Kovacs who accepted the patient. I consulted Dr. Huddleston from ortho and Dr. Winchester from nephrology. Patient was therefore admitted to telemetry bed in serious condition. - Lab Data Result diagrams: 03/20/21 12:44 03/20/21 12:44 Lab Results 03/20/21 03/20/21 03/20/21 Range/Units 12:44 12:44 12:44 WBC 7.2 (3.8-10.6) k/uL RBC 3.38 L (3.80-5.40) m/uL Hgb 11.2 L (11.4-16.0) gm/dL Hct 35.9 (34.0-46.0) % MCV 106.1 H (80.0-100.0) fL MCH 33.2 (25.0-35.0) pg MCHC 31.3 (31.0-37.0) g/dL RDW 15.7 H (11.5-15.5) % Plt Count 165 (150-450) k/uL MPV 7.3 Neutrophils % 85 % Lymphocytes % 7 % Monocytes % 6 % Eosinophils % 1 % Basophils % 0 % Neutrophils # 6.1 (1.3-7.7) k/uL Lymphocytes # 0.5 L (1.0-4.8) k/uL Monocytes # 0.4 (0-1.0) k/uL Eosinophils # 0.1 (0-0.7) k/uL Basophils # 0.0 (0-0.2) k/uL Hypochromasia Slight Poikilocytosis Slight Macrocytosis Moderate PT 9.7 (9.0-12.0) sec INR 0.9 (<1.2) APTT 22.1 (22.0-30.0) sec Sodium (137-145) mmol/L Potassium (3.5-5.1) mmol/L Chloride (98-107) mmol/L Carbon Dioxide (22-30) mmol/L Anion Gap mmol/L BUN (7-17) mg/dL Creatinine (0.52-1.04) mg/dL Est GFR (CKD-EPI)AfAm (>60 ml/min/1.73 sqM) Est GFR (CKD-EPI)NonAf (>60 ml/min/1.73 sqM) Glucose (74-99) mg/dL Calcium (8.4-10.2) mg/dL Total Bilirubin (0.2-1.3) mg/dL AST (14-36) U/L ALT (4-34) U/L Alkaline Phosphatase (38-126) U/L Ammonia (<30) umol/L Total Protein (6.3-8.2) g/dL Albumin (3.5-5.0) g/dL Urine Color Yellow Urine Appearance Clear (Clear) Urine pH 6.0 (5.0-8.0) Ur Specific [place] 1.011 (1.001-1.035) Urine Protein 3+ H (Negative) Urine Glucose (UA) Trace H (Negative) Urine Ketones Negative (Negative) Urine Blood Negative (Negative) Urine Nitrite Negative (Negative) Urine Bilirubin Negative (Negative) Urine Urobilinogen <2.0 (<2.0) mg/dL Ur Leukocyte Esterase Negative (Negative) Urine RBC 1 (0-5) /hpf Urine WBC 1 (0-5) /hpf Ur Squamous Epith Cells <1 (0-4) /hpf Serum Alcohol mg/dL Coronavirus (PCR) (Not Detectd) Blood Type Blood Type Recheck Bld Type Recheck Status Antibody Screen Antibody Identification Direct Antiglob Test Spec Expiration Date 03/20/21 03/20/21 03/20/21 Range/Units 12:44 12:44 12:44 WBC (3.8-10.6) k/uL RBC (3.80-5.40) m/uL Hgb (11.4-16.0) gm/dL Hct (34.0-46.0) % MCV (80.0-100.0) fL MCH (25.0-35.0) pg MCHC (31.0-37.0) g/dL RDW (11.5-15.5) % Plt Count (150-450) k/uL MPV Neutrophils % % Lymphocytes % % Monocytes % % Eosinophils % % Basophils % % Neutrophils # (1.3-7.7) k/uL Lymphocytes # (1.0-4.8) k/uL Monocytes # (0-1.0) k/uL Eosinophils # (0-0.7) k/uL Basophils # (0-0.2) k/uL Hypochromasia Poikilocytosis Macrocytosis PT (9.0-12.0) sec INR (<1.2) APTT (22.0-30.0) sec Sodium 134 L (137-145) mmol/L Potassium 5.1 (3.5-5.1) mmol/L Chloride 92 L (98-107) mmol/L Carbon Dioxide 33 H (22-30) mmol/L Anion Gap 9 mmol/L BUN 27 H (7-17) mg/dL Creatinine 2.69 H (0.52-1.04) mg/dL Est GFR (CKD-EPI)AfAm 21 (>60 ml/min/1.73 sqM) Est GFR (CKD-EPI)NonAf 18 (>60 ml/min/1.73 sqM) Glucose 132 H (74-99) mg/dL Calcium 8.6 (8.4-10.2) mg/dL Total Bilirubin 0.6 (0.2-1.3) mg/dL AST 29 (14-36) U/L ALT 20 (4-34) U/L Alkaline Phosphatase 141 H (38-126) U/L Ammonia (<30) umol/L Total Protein 7.3 (6.3-8.2) g/dL Albumin 4.1 (3.5-5.0) g/dL Urine Color Urine Appearance (Clear) Urine pH (5.0-8.0) Ur Specific [place] (1.001-1.035) Urine Protein (Negative) Urine Glucose (UA) (Negative) Urine Ketones (Negative) Urine Blood (Negative) Urine Nitrite (Negative) Urine Bilirubin (Negative) Urine Urobilinogen (<2.0) mg/dL Ur Leukocyte Esterase (Negative) Urine RBC (0-5) /hpf Urine WBC (0-5) /hpf Ur Squamous Epith Cells (0-4) /hpf Serum Alcohol <10 mg/dL Coronavirus (PCR) Not Detected (Not Detectd) Blood Type B Positive Blood Type Recheck B Pos Bld Type Recheck Status No Antibody Screen POSITIVE Antibody Identification Anti-K Direct Antiglob Test Negative Spec Expiration Date 03/23/2021234303/20/21 Range/Units 12:44 WBC (3.8-10.6) k/uL RBC (3.80-5.40) m/uL Hgb (11.4-16.0) gm/dL Hct (34.0-46.0) % MCV (80.0-100.0) fL MCH (25.0-35.0) pg MCHC (31.0-37.0) g/dL RDW (11.5-15.5) % Plt Count (150-450) k/uL MPV Neutrophils % % Lymphocytes % % Monocytes % % Eosinophils % % Basophils % % Neutrophils # (1.3-7.7) k/uL Lymphocytes # (1.0-4.8) k/uL Monocytes # (0-1.0) k/uL Eosinophils # (0-0.7) k/uL Basophils # (0-0.2) k/uL Hypochromasia Poikilocytosis Macrocytosis PT (9.0-12.0) sec INR (<1.2) APTT (22.0-30.0) sec Sodium (137-145) mmol/L Potassium (3.5-5.1) mmol/L Chloride (98-107) mmol/L Carbon Dioxide (22-30) mmol/L Anion Gap mmol/L BUN (7-17) mg/dL Creatinine (0.52-1.04) mg/dL Est GFR (CKD-EPI)AfAm (>60 ml/min/1.73 sqM) Est GFR (CKD-EPI)NonAf (>60 ml/min/1.73 sqM) Glucose (74-99) mg/dL Calcium (8.4-10.2) mg/dL Total Bilirubin (0.2-1.3) mg/dL AST (14-36) U/L ALT (4-34) U/L Alkaline Phosphatase (38-126) U/L Ammonia <9 (<30) umol/L Total Protein (6.3-8.2) g/dL Albumin (3.5-5.0) g/dL Urine Color Urine Appearance (Clear) Urine pH (5.0-8.0) Ur Specific [place] (1.001-1.035) Urine Protein (Negative) Urine Glucose (UA) (Negative) Urine Ketones (Negative) Urine Blood (Negative) Urine Nitrite (Negative) Urine Bilirubin (Negative) Urine Urobilinogen (<2.0) mg/dL Ur Leukocyte Esterase (Negative) Urine RBC (0-5) /hpf Urine WBC (0-5) /hpf Ur Squamous Epith Cells (0-4) /hpf Serum Alcohol mg/dL Coronavirus (PCR) (Not Detectd) Blood Type Blood Type Recheck Bld Type Recheck Status Antibody Screen Antibody Identification Direct Antiglob Test Spec Expiration Date - EKG Data -: EKG Interpreted by Me EKG Comments: 12-lead Electrocardiogram Interpretation Note EKG was reviewed and interpreted by myself. 12-lead ECG performed at 1233 is interpreted by me as revealing normal sinus rhythm at a rate of 99 beats per minute. [place] is normal. [place] intervals 164 ms, QRS duration is 122 ms. Patient is a left bundle branch block which is chronic. On comparison to prior EKGs, is unchanged... By my interpretation this EKG is non-diagnostic for acute ischemia. Patient has a history of chronic left bundle-branch block. Disposition Clinical Impression: Fracture of tibia with fibula, right, closed, Fracture of tibia with fibula, left, closed, COPD (chronic obstructive pulmonary disease), ESRD (end stage renal disease) on dialysis Disposition: ADMITTED IP TO THIS [facility] Condition: Serious
[2021-03-20 13:27] LABS: INR 0.9 (<1.2); Partial Thromboplastin Time 22.1 sec (22.0-30.0); Prothrombin Time 9.7 sec (9.0-12.0)
[2021-03-20 13:35] LABS: Basophils % (A) 0 %; Eosinophils # (A) 0.1 k/uL (0-0.7); Eosinophils % (A) 1 %; HCT 35.9 % (34.0-46.0); HGB 11.2 gm/dL (11.4-16.0); Hypochromasia Slight; Lymphocytes # (A) 0.5 k/uL (1.0-4.8); Lymphocytes % (A) 7 %; MCH 33.2 pg (25.0-35.0); MCHC 31.3 g/dL (31.0-37.0); MCV 106.1 fL (80.0-100.0); Macrocytosis Moderate; Mean Platelet Volume 7.3; Monocytes # (A) 0.4 k/uL (0-1.0); Monocytes % (A) 6 %; Neutrophils # (A) 6.1 k/uL (1.3-7.7); Neutrophils % (A) 85 %; Platelet Count 165 k/uL (150-450); Poikilocytosis Slight; RBC 3.38 m/uL (3.80-5.40); RDW 15.7 % (11.5-15.5); WBC 7.2 k/uL (3.8-10.6)
[2021-03-20] MEDS ORDERED: MORPHINE SULFATE 4 MG/ML SYRINGE IV PRN (14:08)
[2021-03-20] MEDS ORDERED: NALOXONE 0.4 MG/ML 1 ML VIAL IV PRN (14:08)
--- NOTE | 2021-03-20 14:20 | XR ---
EXAMINATION TYPE: XR pelvis AP view DATE OF EXAM: 03/20/2021 CLINICAL HISTORY: pain TECHNIQUE: Single view the pelvis is submitted. FINDINGS: No evidence for fracture, dislocation or bony lesion. Joint spaces are well-preserved. S I joints appear symmetric. IMPRESSION: 1. No acute fracture or dislocation seen. ICD 10 NO FRACTURE, INITIAL EVALUATION
[2021-03-20 14:21] LABS: Appearance,Urine Clear (Clear); Bilirubin,Urine Negative (Negative); Blood,Urine Negative (Negative); Color,Urine Yellow; Glucose,Urine (UA) Trace (Negative); Ketones,Urine Negative (Negative); Leukocyte Esterase,Urine Negative (Negative); Nitrite,Urine Negative (Negative); Protein,Urine 3+ (Negative); RBC,Urine 1 /hpf (0-5); Specific Gravity,Urine 1.011 (1.001-1.035); Squamous Epithelial Cell,Urine <1 /hpf (0-4); Urobilinogen,Urine <2.0 mg/dL (<2.0); WBC,Urine 1 /hpf (0-5)
--- NOTE | 2021-03-20 14:21 | XR ---
EXAMINATION TYPE: XR chest 1V portable DATE OF EXAM: 03/20/2021 HISTORY: Shortness of breath. COMPARISON: 02/13/2021 TECHNIQUE: Single view of the chest is submitted. FINDINGS: Demonstrated are scattered senescent parenchymal change. There is no evidence for focal infiltrate. The heart is stable. Hilar and mediastinal structures are within normal limits. Degenerative changes are seen of the dorsal spine. IMPRESSION: 1. Chronic changes without evidence for acute pulmonary disease.
[2021-03-20] MEDS ORDERED: MORPHINE SULFATE 2 MG/ML SYRINGE IV PRN (15:53)
--- NOTE | 2021-03-20 15:57 | P.HPIM ---
History of Present Illness H&P Date: 03/20/21 This is a 66-year-old female with a very complex past medical history noted below significant for end-stage renal disease on hemodialysis presented to the emergency room with bilateral knee pain after sustaining a fall at the dialysis center. Patient was moaning in pain when I saw her and she was unable to provide any significant history. Most of the history was obtained by ER report. Apparently patient fell while transferring to the wheelchair after her dialysis and landed on her knees. She is complaining of severe pain and x-rays in the ER showed bilateral tib-fib fracture. Orthopedic consulted for further evaluation. Review of Systems Review of system: 14 points review of systems were obtained and were negative except to what were mentioned in the HPI. Past Medical History Past Medical History: COPD, Diabetes Mellitus, GERD/Reflux, Hyperlipidemia, Hypertension, Osteoarthritis (OA), Pneumonia, Respiratory Disorder, Seizure Disorder, Vascular Disorder Additional Past Medical History / Comment(s): hepatic encephalopathy/chronic liver disease probably d/t fatty liver advancing to chronic liver disease with possible cirrhosis/acute on chronic renal failure/acute on chronic COPD, AMS d/t elevated ammonia levels/metabolic acidosis/ electrolyte disturbances. Other hx: High ammonia levels, chronic liver disease, kidney stones, CKD stage IV, chronic respiratory failure with home O2 at 4L/NC, NIDDM type II, neuropathy bilateral feet, IBS, arthritis in multiple joints, chronic back pain, current problems with weakness, generalized edema. History of Any Multi-Drug Resistant Organisms: Unobtainable Past Surgical History: Ear Surgery, Hysterectomy, Orthopedic Surgery Additional Past Surgical History / Comment(s): Multiple surgeries/ESWL for kidney stones, bilateral caratid endartectomies, L ankle surgery with metal esteban/pin, R ear surgery for deteriorating eardrum, sinus surgery, colonoscopy. Past Anesthesia/Blood Transfusion Reactions: No Reported Reaction Past Psychological History: Anxiety, Depression Smoking Status: Former smoker Past Alcohol Use History: None Reported Past Drug Use History: Marijuana - Past Family History Mother Family Medical History: Diabetes Mellitus, Hypertension Father Family Medical History: Hypertension Medications and Allergies Home Medications Medication Instructions Recorded Confirmed Type Phenytoin Sodium Extended 100 mg PO TID@0600,1400,2200 11/29/15 03/20/21 History [Dilantin] Primidone [Mysoline] 100 mg PO HS@199907/20/18 03/20/21 History Calcium Acetate 2,001 mg PO TID@0900,1300,1800 09/06/20 03/20/21 History Calcium Acetate [PhosLo] 667 mg PO HS@199909/06/20 03/20/21 History Fluticasone/Vilanterol [Breo 1 puff INHALATION RT-DAILY@0800 09/06/20 03/20/21 History Ellipta 100-25 Mcg Inhaler] Folic Acid-Vit B Complex-Vit C 1 cap PO DAILY@0800 09/06/20 03/20/21 History [Nephrocaps] Lidocaine-Prilocaine Cream [Emla 1 applic TOPICAL MOWEFR 09/06/20 03/20/21 Histo ry Cream 2.5%/2.5%] traZODone HCL 150 mg PO HS@199909/06/20 03/20/21 History Albuterol Inhaler [Ventolin Hfa 2 puff INHALATION 09/16/20 03/20/21 History Inhaler] RT-Q6H@00,06,12,18 Omeprazole 20 mg PO DAILY@0809/16/20 03/20/21 History Furosemide [Lasix] 80 mg PO BID@0800,1600 09/22/20 03/20/21 History Metoprolol Tartrate [Lopressor] 25 mg PO BID@0800,199909/22/20 03/20/21 History Montelukast [Singulair] 10 mg PO HS@199909/22/20 03/20/21 History hydrALAZINE HCL [Apresoline] 25 mg PO Q8H 09/22/20 03/20/21 History Atorvastatin [Lipitor] 10 mg PO HS@1999 tab 10/04/20 03/20/21 Rx Aspirin 81 mg PO DAILY@0800 02/12/21 03/20/21 History Cinacalcet [Sensipar] 30 mg PO HS 02/12/21 03/20/21 History Gabapentin [Neurontin] 300 mg PO MOWEFR@1999 #3 cap 02/15/21 03/20/21 Rx HYDROcodone/APAP 5-325MG [[place] 1 tab PO Q6HR PRN 3 Days #12 tab 02/15/21 03/20/21 Rx 5-325] ALPRAZolam [Xanax] 0.5 mg PO Q8H PRN 03/20/21 03/20/21 History Acetaminophen [Tylenol Arthritis] 650 mg PO Q6H PRN 03/20/21 03/20/21 History Folic Acid 1 mg PO DAILY 03/20/21 03/20/21 History Allergies Allergy/AdvReac Type Severity Reaction Status Date / Time Penicillins Allergy Mild Swelling Verified 03/20/21 13:01 Physical Exam Vitals: Vital Signs Temp Pulse Resp BP Pulse Ox 03/20/21 15:17 102 H 03/20/21 15:09 99 03/20/21 11:43 98.2 F 93 20 124/103 92 L Intake and Output 03/20/21 03/20/21 03/20/21 06:59 14:59 22:59 Other: Weight 104.326 kg General: The patient is awake and alert, in no distress Eye: there is normal conjunctiva bilaterally. Neck: The neck is supple, there is no JVD. Cardiovascular: Normal S1-S2, no S3-S4, no murmurs. Respiratory: Lungs clear to auscultation bilaterally Gastrointestinal: Abdomen is soft, nontender Musculoskeletal: There is large knee immobilizer bilaterally covering the entire leg Neurological:. Speech is normal. Skin: Skin is warm and dry Results CBC & Chem 7: 03/20/21 12:44 03/20/21 12:44 Labs: Abnormal Lab Results - Last 24 Hours (Table) 03/20/21 03/20/21 03/20/21 Range/Units 12:44 12:44 12:44 RBC 3.38 L (3.80-5.40) m/uL Hgb 11.2 L (11.4-16.0) gm/dL MCV 106.1 H (80.0-100.0) fL RDW 15.7 H (11.5-15.5) % Lymphocytes # 0.5 L (1.0-4.8) k/uL Sodium 134 L (137-145) mmol/L Chloride 92 L (98-107) mmol/L Carbon Dioxide 33 H (22-30) mmol/L BUN 27 H (7-17) mg/dL Creatinine 2.69 H (0.52-1.04) mg/dL Glucose 132 H (74-99) mg/dL Alkaline Phosphatase 141 H (38-126) U/L Urine Protein 3+ H (Negative) Urine Glucose (UA) Trace H (Negative) Assessment and Plan Assessment: 1. Bilateral tib-fib fracture secondary to fall, awaiting orthopedic evaluation. Pain control as needed with IV morphine 2 mg every 4 hours 2. End-stage renal disease on hemodialysis, nephrology consulted 3. Severe COPD on 4 L of oxygen at home, with no evidence of exacerbation 4. Type 2 diabetes, underlying IBS, chronic liver disease, 5. DVT prophylaxis with subcu heparin Today, I reviewed her medication list and lab work results. Continue current regimen. Awaiting orthopedic evaluation.
[2021-03-20] MEDS: ACETAMINOPHEN TAB 325 MG TAB PO PRN (16:10)
[2021-03-20] MEDS: ALPRAZolam 0.5 MG TAB PO PRN (16:10)
[2021-03-20] MEDS: FUROSEMIDE 80 MG TAB PO SCH (16:38)
[2021-03-20] MEDS: PHENYTOIN SODIUM EXTENDED 100 MG CAP PO SCH ×2 (16:38→20:54)
[2021-03-20] MEDS: hydrALAZINE HCL 25 MG TAB PO SCH (17:25)
[2021-03-20] MEDS: CALCIUM ACETATE 667 MG TAB PO SCH ×2 (18:28→20:47)
[2021-03-20] MEDS: ALBUTEROL NEBULIZED 2.5 MG/3 ML INHALATION SCH ×2 (20:35→23:54)
[2021-03-20] MEDS: MONTELUKAST 10 MG TAB PO SCH (20:47)
[2021-03-20] MEDS: HEPARIN SODIUM,PORCINE/PF 5,000 UNIT/0.5 ML SYRINGE SQ SCH (20:47)
[2021-03-20] MEDS: GABAPENTIN 300 MG CAP PO SCH (20:47)
[2021-03-20] MEDS: ATORVASTATIN 10 MG TAB PO SCH (20:47)
[2021-03-20] MEDS: PRIMIDONE 50 MG TAB PO SCH (20:47)
[2021-03-20] MEDS: METOPROLOL TARTRATE 25 MG TAB PO SCH (20:47)
[2021-03-20] MEDS: CINACALCET 30 MG TAB PO SCH (20:54)
[2021-03-20] MEDS: KETOROLAC 15 MG/ML 1 ML VIAL IVP PRN (23:04)
[2021-03-21] MEDS: hydrALAZINE HCL 25 MG TAB PO SCH ×2 (01:37→09:33)
[2021-03-21] MEDS: KETOROLAC 15 MG/ML 1 ML VIAL IVP PRN (04:36)
[2021-03-21] MEDS: PHENYTOIN SODIUM EXTENDED 100 MG CAP PO SCH ×3 (04:40→21:59)
[2021-03-21] MEDS: ACETAMINOPHEN TAB 325 MG TAB PO PRN (06:07)
[2021-03-21] MEDS ORDERED: MORPHINE SULFATE 2 MG/ML SYRINGE IVP STA (06:09)
[2021-03-21] MEDS: SYMBICORT 80-4.5 MCG INHALER INHALATION SCH ×2 (07:17→20:42)
[2021-03-21] MEDS: ALBUTEROL NEBULIZED 2.5 MG/3 ML INHALATION SCH ×3 (07:17→16:29)
[2021-03-21] MEDS ORDERED: MORPHINE SULFATE 2 MG/ML SYRINGE IVP PRN (08:09)
[2021-03-21] MEDS: FOLIC ACID 1 MG TAB PO SCH (09:32)
[2021-03-21] MEDS: ASPIRIN 81 MG PO SCH (09:32)
[2021-03-21] MEDS: CALCIUM ACETATE 667 MG TAB PO SCH ×4 (09:32→21:58)
[2021-03-21] MEDS: HEPARIN SODIUM,PORCINE/PF 5,000 UNIT/0.5 ML SYRINGE SQ SCH ×2 (09:33→21:58)
[2021-03-21] MEDS: PANTOPRAZOLE 40 MG TABLET PO SCH (09:33)
[2021-03-21] MEDS: FOLIC ACID-VIT B COMPLEX-VIT C 1 CAP PO SCH (09:33)
[2021-03-21] MEDS: METOPROLOL TARTRATE 25 MG TAB PO SCH ×2 (09:33→21:58)
[2021-03-21] MEDS: FUROSEMIDE 80 MG TAB PO SCH ×2 (09:34→15:51)
--- NOTE | 2021-03-21 11:32 | P.NPCON ---
History of Present Illness - Reason for Consult end stage renal disease - History of Present Illness Reason for consultation: End-stage renal disease History of present illness: Patient is a 66-year-old female seen a new consultation for end-stage renal disease. She is maintained on hemodialysis on Saturday schedule. Patient did complete her hemodialysis treatment yesterday. Patient fell while being transferred from review chair. Patient is not a reliable historian and doesn't recall why she is in the hospital. She does admit to pain in her knees. Imaging revealed bilateral tibial fractures. Blood pressure stable. No chest pain or shortness of breath. No fever or chills. No vomiting or diarrhea. Vital signs are stable. General: The patient appeared well nourished and normally developed. HEENT: Head exam is unremarkable. LUNGS: Breath sounds decreased. HEART: Rate and Rhythm are regular. Abdomen: Soft, obese. EXTREMITITES: No edema. Past Medical History Past Medical History: COPD, Diabetes Mellitus, GERD/Reflux, Hyperlipidemia, Hypertension, Osteoarthritis (OA), Pneumonia, Respiratory Disorder, Seizure Disorder, Vascular Disorder Additional Past Medical History / Comment(s): hepatic encephalopathy/chronic liver disease probably d/t fatty liver advancing to chronic liver disease with possible cirrhosis/acute on chronic renal failure/acute on chronic COPD, AMS d/t elevated ammonia levels/metabolic acidosis/ electrolyte disturbances. Other hx: High ammonia levels, chronic liver disease, kidney stones, CKD stage IV, chronic respiratory failure with home O2 at 4L/NC, NIDDM type II, neuropathy bilateral feet, IBS, arthritis in multiple joints, chronic back pain, current problems with weakness, generalized edema. History of Any Multi-Drug Resistant Organisms: Unobtainable Past Surgical History: Ear Surgery, Hysterectomy, Orthopedic Surgery Additional Past Surgical History / Comment(s): Multiple surgeries/ESWL for kidney stones, bilateral caratid endartectomies, L ankle surgery with metal esteban/pin, R ear surgery for deteriorating eardrum, sinus surgery, colonoscopy. Past Anesthesia/Blood Transfusion Reactions: No Reported Reaction Past Psychological History: Anxiety, Depression Smoking Status: Former smoker Past Alcohol Use History: None Reported Past Drug Use History: Marijuana - Past Family History Mother Family Medical History: Diabetes Mellitus, Hypertension Father Family Medical History: Hypertension Medications and Allergies Home Medications Medication Instructions Recorded Confirmed Type Phenytoin Sodium Extended 100 mg PO TID@0600,1400,2200 07/05/16 10/25/21 History [Dilantin] Primidone [Mysoline] 100 mg PO HS@199907/20/18 03/20/21 History Calcium Acetate 2,001 mg PO TID@0900,1300,1800 09/06/20 03/20/21 History Calcium Acetate [PhosLo] 667 mg PO HS@199909/06/20 03/20/21 History Fluticasone/Vilanterol [Breo 1 puff INHALATION RT-DAILY@0800 09/06/20 03/20/21 History Ellipta 100-25 Mcg Inhaler] Folic Acid-Vit B Complex-Vit C 1 cap PO DAILY@0800 09/06/20 03/20/21 History [Nephrocaps] Lidocaine-Prilocaine Cream [Emla 1 applic TOPICAL MOWEFR 09/06/20 03/20/21 History Cream 2.5%/2.5%] traZODone HCL 150 mg PO HS@199909/06/20 03/20/21 History Albuterol Inhaler [Ventolin Hfa 2 puff INHALATION 09/16/20 03/20/21 History Inhaler] RT-Q6H@00,06,12,18 Omeprazole 20 mg PO DAILY@0800 09/16/20 03/20/21 History Furosemide [Lasix] 80 mg PO BID@0800,1600 09/22/20 03/20/21 History Metoprolol Tartrate [Lopressor] 25 mg PO BID@0800,199909/22/20 03/20/21 History Montelukast [Singulair] 10 mg PO HS@199909/22/20 03/20/21 History hydrALAZINE HCL [Apresoline] 25 mg PO Q8H 09/22/20 03/20/21 History Atorvastatin [Lipitor] 10 mg PO HS@1999 tab 10/04/20 03/20/21 Rx Aspirin 81 mg PO DAILY@0800 02/12/21 03/20/21 History Cinacalcet [Sensipar] 30 mg PO HS 02/12/21 03/20/21 History Gabapentin [Neurontin] 300 mg PO MOWEFR@1999 #3 cap 02/15/21 03/20/21 Rx HYDROcodone/APAP 5-325MG [[place] 1 tab PO Q6HR PRN 3 Days #12 tab 02/15/21 03/20/21 Rx 5-325] ALPRAZolam [Xanax] 0.5 mg PO Q8H PRN 03/20/21 03/20/21 History Acetaminophen [Tylenol Arthritis] 650 mg PO Q6H PRN 03/20/21 03/20/21 History Folic Acid 1 mg PO DAILY 03/20/21 03/20/21 History Allergies Allergy/AdvReac Type Severity Reaction Status Date / Time Penicillins Allergy Mild Swelling Verified 03/20/21 13:01 Physical Exam Vitals: Vital Signs Temp Pulse Pulse Resp BP BP Pulse Ox 03/21/21 11:12 100 03/21/21 11:02 100 03/21/21 07:26 100 03/21/21 07:17 100 98 03/21/21 07:01 98.7 F 95 17 117/70 97 03/21/21 01:19 98.7 F 90 16 110/70 99 03/20/21 20:49 104 H 03/20/21 20:35 100 03/20/21 19:09 97.5 F L 108 H 15 105/55 95 03/20/21 17:21 98.9 F 106 H 18 93/51 95 03/20/21 17:00 104 H 18 117/61 95 03/20/21 16:00 101 H 18 81/49 95 03/20/21 15:17 102 H 03/20/21 15:09 99 03/20/21 15:00 104 H 20 114/60 95 03/20/21 14:00 100 18 104/55 95 03/20/21 13:00 96 24 119/81 96 03/20/21 11:43 98.2 F 93 20 124/103 92 L Intake and Output 03/20/21 03/21/21 03/21/21 22:59 06:59 14:59 Output Total 300 Balance -300 Output: Urine 300 Other: Voiding Method Indwelling Catheter Indwelling Catheter Weight 104.326 kg Results - Lab Results Most recent lab results Calcium 8.6 mg/dL (8.4-10.2) 03/20/21 12:44 03/20/21 12:44 03/20/21 12:44 Assessment and Plan Plan: Assessment: 1. End-stage renal disease maintained on hemodialysis on Saturday schedule. 2. Status post fall with tibial fractures. 3. Diabetes mellitus. 4. Chronic kidney disease mineral bone disease maintained on PhosLo and Sensipar. 5. Hypertension with chronic kidney disease. Plan: Hemodialysis tomorrow. Hold hydralazine for systolic blood pressure less than 120. Thank you for the consultation. I will continue to follow the patient with you during her hospital stay.
--- NOTE | 2021-03-21 11:34 | P.CNOR ---
History of Present Illness - [facility] Consult date: 03/21/21 History of present illness: This patient is a 66-year-old female with a past medical history of COPD on 4 L of oxygen at home, hypertension, hepatic encephalopathy, end-stage renal disease on hemodialysis, seizures, diabetes the presented to [facility] emergency department on 03/20/21 with complaints of bilateral leg pain after a fall out of her wheelchair at dialysis. Patient uses her wheelchair at baseline. Patient complained of bilateral lower leg pain following the fall, therefore she was transported to [facility] emergency department via EMS for evaluation. X-rays in the emergency department revealed bilateral proximal tibia and fibula fractures. The patient was admitted under the care of internal medicine due to her multiple medical problems, and a consult was placed to orthopedics for her bilateral tibia and fibula fractures. Nephrology was also consulted. Patient is a resident at [facility]. Patient is seen and examined bedside this morning. Patient is arousable and answers questions appropriately, although she is unable to provide much history. She is able to explain her fall at dialysis. She states she is in pain in her bilateral lower legs. There is no additional history obtained. Nursing is bedside, and states IV morphine was discontinued last evening due to concerns a patient being hypotensive and her mental status. Vital signs stable. Past Medical History Past Medical History: COPD, Diabetes Mellitus, GERD/Reflux, Hyperlipidemia, Hypertension, Osteoarthritis (OA), Pneumonia, Respiratory Disorder, Seizure Disorder, Vascular Disorder Additional Past Medical History / Comment(s): hepatic encephalopathy/chronic liver disease probably d/t fatty liver advancing to chronic liver disease with possible cirrhosis/acute on chronic renal failure/acute on chronic COPD, AMS d/t elevated ammonia levels/metabolic acidosis/ electrolyte disturbances. Other hx: High ammonia levels, chronic liver disease, kidney stones, CKD stage IV, chronic respiratory failure with home O2 at 4L/NC, NIDDM type II, neuropathy bilateral feet, IBS, arthritis in multiple joints, chronic back pain, current problems with weakness, generalized edema. History of Any Multi-Drug Resistant Organisms: Unobtainable Past Surgical History: Ear Surgery, Hysterectomy, Orthopedic Surgery Additional Past Surgical History / Comment(s): Multiple surgeries/ESWL for kidney stones, bilateral caratid endartectomies, L ankle surgery with metal esteban/pin, R ear surgery for deteriorating eardrum, sinus surgery, colonoscopy. Past Anesthesia/Blood Transfusion Reactions: No Reported Reaction Past Psychological History: Anxiety, Depression Smoking Status: Former smoker Past Alcohol Use History: None Reported Past Drug Use History: Marijuana - Past Family History Mother Family Medical History: Diabetes Mellitus, Hypertension Father Family Medical History: Hypertension Medications and Allergies Home Medications Medication Instructions Recorded Confirmed Type Phenytoin Sodium Extended 100 mg PO TID@0600,1400,2200 11/29/15 03/20/21 History [Dilantin] Primidone [Mysoline] 100 mg PO HS@199907/20/18 03/20/21 History Calcium Acetate 2,001 mg PO TID@0900,1300,1800 09/06/20 03/20/21 History Calcium Acetate [PhosLo] 667 mg PO HS@199909/06/20 03/20/21 History Fluticasone/Vilanterol [Breo 1 puff INHALATION RT-DAILY@0800 09/06/20 03/20/21 History Ellipta 100-25 Mcg Inhaler] Folic Acid-Vit B Complex-Vit C 1 cap PO DAILY@0800 09/06/20 03/20/21 History [Nephrocaps] Lidocaine-Prilocaine Cream [Emla 1 applic TOPICAL MOWEFR 09/06/20 03/20/21 History Cream 2.5%/2.5%] traZODone HCL 150 mg PO HS@199909/06/20 03/20/21 History Albuterol Inhaler [Ventolin Hfa 2 puff INHALATION 09/16/20 03/20/21 History Inhaler] RT-Q6H@00,06,12,18 Omeprazole 20 mg PO DAILY@0800 09/16/20 03/20/21 History Furosemide [Lasix] 80 mg PO BID@0800,1600 09/22/20 03/20/21 History Metoprolol Tartrate [Lopressor] 25 mg PO BID@0800,199909/22/20 03/20/21 History Montelukast [Singulair] 10 mg PO HS@199909/22/20 03/20/21 History hydrALAZINE HCL [Apresoline] 25 mg PO Q8H 09/22/20 03/20/21 History Atorvastatin [Lipitor] 10 mg PO HS@1999 tab 10/04/20 03/20/21 Rx Aspirin 81 mg PO DAILY@0800 02/12/21 03/20/21 History Cinacalcet [Sensipar] 30 mg PO HS 02/12/21 03/20/21 History Gabapentin [Neurontin] 300 mg PO MOWEFR@1999 #3 cap 02/15/21 03/20/21 Rx HYDROcodone/APAP 5-325MG [[place] 1 tab PO Q6HR PRN 3 Days #12 tab 02/15/21 03/20/21 Rx 5-325] ALPRAZolam [Xanax] 0.5 mg PO Q8H PRN 03/20/21 03/20/21 History Acetaminophen [Tylenol Arthritis] 650 mg PO Q6H PRN 03/20/21 03/20/21 History Folic Acid 1 mg PO DAILY 03/20/21 03/20/21 History Allergies Allergy/AdvReac Type Severity Reaction Status Date / Time Penicillins Allergy Mild Swelling Verified 03/20/21 13:01 Physical Examination On examination, the patient is lying in bed in no apparent distress. She is alert and arousable, she answers questions appropriately. Her head appears normocephalic and atraumatic. Her breathing appears nonlabored. On inspection of her bilateral upper extremities, there are no obvious deformities or signs of trauma. On inspection of her left lower extremity, there is a knee immobilizer in place. The foot is warm and well perfused. Patient has good strength and range of motion in toes. Sensation is intact. On inspection of her right lower extremity, there is a knee immobilizer in place. The foot is warm and well perfused. Patient has good strength and range of motion of her ankle and toes. Sensation is intact. Results Right tibia and fibula x-ray 03/20/21: Minimally displaced proximal tibia and fibula fractures. Left tibia and fibula x-ray 03/20/21: Minimally displaced proximal tibia and fibula fractures. - Labs Labs: Abnormal Lab Results - Last 24 Hours (Table) 03/20/21 03/20/21 03/20/21 Range/Units 12:44 12:44 12:44 RBC 3.38 L (3.80-5.40) m/uL Hgb 11.2 L (11.4-16.0) gm/dL MCV 106.1 H (80.0-100.0) fL RDW 15.7 H (11.5-15.5) % Lymphocytes # 0.5 L (1.0-4.8) k/uL Sodium 134 L (137-145) mmol/L Chloride 92 L (98-107) mmol/L Carbon Dioxide 33 H (22-30) mmol/L BUN 27 H (7-17) mg/dL Creatinine 2.69 H (0.52-1.04) mg/dL Glucose 132 H (74-99) mg/dL Alkaline Phosphatase 141 H (38-126) U/L Urine Protein 3+ H (Negative) Urine Glucose (UA) Trace H (Negative) H & H 03/20/21 Range/Units 12:44 Hgb 11.2 L (11.4-16.0) gm/dL Hct 35.9 (34.0-46.0) % Coagulation 03/20/21 Range/Units 12:44 INR 0.9 (<1.2) Result Diagrams: 03/20/21 12:44 03/20/21 12:44 Assessment and Plan Assessment: Bilateral minimally displaced proximal tibia and fibula fractures. End-stage renal disease on hemodialysis. COPD on 4 L of oxygen at home. Diabetes. Plan: - The patient was also seen by Dr. Huddleston. The clinical and imaging findings were discussed with the patient, as well as her legal guardian, Robert. Recommend non-operative management at this time. Patient should remain non-weight bearing on the bilateral lower extremities at this time. She is currently in bilateral knee immobilizers, but we will order patient new braces today. We will plan to follow patient very closely as an outpatient. - Pain management as needed. - Medical management per internal medicine and nephrology. - We will follow patient closely.
[2021-03-21 11:36] LABS: Basophils # (A) 0.05 X 10*3/uL (0.00-0.10); Basophils % (A) 0.6 %; Eosinophils # (A) 0.05 X 10*3/uL (0.04-0.35); Eosinophils % (A) 0.6 %; HCT 31.2 % (37.2-46.3); Lymphocytes # (A) 1.24 X 10*3/uL (0.90-5.00); Lymphocytes % (A) 15.3 %; MCH 32.6 pg (27.0-32.0); MCHC 28.8 g/dL (32.0-37.0); Mean Platelet Volume 10.6 fL (9.5-12.2); Monocytes # (A) 1.03 X 10*3/uL (0.20-1.00); Monocytes % (A) 12.7 %; Neutrophils # (A) 5.73 X 10*3/uL (1.80-7.70); Neutrophils % (A) 70.6 %; Platelet Count 204 X 10*3/uL (140-440); RBC 2.76 X 10*6/uL (4.10-5.20); RDW 15.5 % (11.5-14.5); WBC 8.12 X 10*3/uL (4.50-10.00)
[2021-03-21 13:07] LABS: Magnesium 2.1 mg/dL (1.5-2.4)
[2021-03-21 13:45] LABS: African American GFR (CKD) 10.3 (60.0-200.0); Anion Gap 12.7 mmol/L (4.00-12.00); BUN/Creat Ratio 8.78 Ratio (12.00-20.00); Blood Urea Nitrogen 41.9 mg/dL (9.0-27.0); Calcium 8.3 mg/dL (8.7-10.3); Carbon Dioxide 28.1 mmol/L (21.6-31.8); Non-African American GFR(CKD) 8.9 (60.0-200.0); Potassium 6.2 mmol/L (3.5-5.5)
--- NOTE | 2021-03-21 14:13 | P.PN ---
Subjective Patient is alert and awake today. She is complaining of a lot of pain nonspecific areas including her left hip and her knees. Blood pressure is been softer borderline low since last night. Objective - Vital Signs Vital signs: Vital Signs Temp 98.7 F 03/21/21 07:01 Pulse 100 03/21/21 11:12 Resp 17 03/21/21 07:01 BP 117/70 03/21/21 07:01 Pulse Ox 98 03/21/21 07:17 Intake & Output 03/20/21 03/21/21 03/21/21 18:59 06:59 18:59 Output Total 300 Balance -300 Weight 104.326 kg Output: Urine 300 Other: Voiding Method Indwelling Catheter Indwelling Catheter - Exam General: The patient is awake and alert, in no distress Eye: there is normal conjunctiva bilaterally. Neck: The neck is supple, there is no JVD. Cardiovascular: Normal S1-S2, no S3-S4, no murmurs. Respiratory: Lungs clear to auscultation bilaterally Gastrointestinal: Abdomen is soft, nontender Musculoskeletal: There is no pedal edema. Neurological:. Speech is normal. Skin: Skin is warm and dry - Labs CBC & Chem 7: 03/21/21 07:23 03/21/21 07:23 Labs: Abnormal Lab Results - Last 24 Hours (Table) 03/20/21 03/21/21 03/21/21 Range/Units 12:44 07:23 07:23 RBC 2.76 L (4.10-5.20) X 10*6/uL Hgb 9.0 L (12.0-15.0) g/dL Hct 31.2 L (37.2-46.3) % MCV 113.0 H (80.0-97.0) fL MCH 32.6 H (27.0-32.0) pg MCHC 28.8 L (32.0-37.0) g/dL RDW 15.5 H (11.5-14.5) % Absolute Nucleated RBC 0.02 H (0.00-0.00) X 10*3/uL Monocytes # 1.03 H (0.20-1.00) X 10*3/uL NRBC/100 WBC Diff 0.2 H (0.0-0.0) /100 WBCS Sodium 134 L (135-145) mmol/L Potassium 6.2 H* (3.5-5.5) mmol/L Chloride 93 L (96-109) mmol/L Anion Gap 12.70 H (4.00-12.00) mmol/L BUN 41.9 H (9.0-27.0) mg/dL Creatinine 4.8 H (0.6-1.5) mg/dL Est GFR (CKD-EPI)AfAm 10.3 L (60.0-200.0) Est GFR (CKD-EPI)NonAf 8.9 L (60.0-200.0) BUN/Creatinine Ratio 8.78 L (12.00-20.00) Ratio Calcium 8.3 L (8.7-10.3) mg/dL Urine Protein 3+ H (Negative) Urine Glucose (UA) Trace H (Negative) Assessment and Plan Assessment: 1. Bilateral tib-fib fracture secondary to fall, seen and evaluated by orthopedic surgery. Conservative management recommended with no surgical int ervention. Currently in bilateral knee immobilizer. Nonweightbearing for now as recommended. I would discontinue IV morphine and transitioned patient on [place] 5/325 every 4 hours as needed 2. End-stage renal disease on hemodialysis, nephrology consulted 3. Severe COPD on 4 L of oxygen at home, with no evidence of exacerbation 4. Type 2 diabetes, underlying IBS, chronic liver disease, 5. DVT prophylaxis with subcu heparin Today, I reviewed her medication list and lab work results. Discontinue oral hydralazine as blood pressure is borderline low Appreciate nephrology recommendation for dialysis Repeat lab work in the morning Continue to monitor clinical status closely and anticipate discharge back to [facility] when medically stable
--- NOTE | 2021-03-21 14:35 | P.PN ---
Progress Note - Text Progress Note Date: 03/21/21 I agree with consult written by Anitha Kenney PA-C. I also examined the patient and discussed her medical history, activity level, current injury, and prognosis with her son Robert who is health care legal assistant and DPOA. The patient has multiple medical problems including ESRD on dialysis and hepatic encephalopathy. She is presently non-ambulatory in a wheelchair. She is admitted to with bilateral proximal tibia fractures. Given her multiple medical problems and non-ambulatory status, I would recommend non-operative treatment with extended Hinged knee braces and close radiographic and clinical follow-up. Her son, Robert, agrees. He understands that she is a poor surgical candidate and says that any time she has a surgical incision (hemodialysis catheters, prior ankle ORIF) she has problems with her surgical incisions healing and develops infections.
[2021-03-21] MEDS ORDERED: CALCIUM GLUCONATE 1 GM in SODIUM CHLORIDE 0.9% 100 ML IVPB ONE (14:53)
[2021-03-21] MEDS ORDERED: INSULIN REGULAR 100 UNIT/ML VIAL (IV) IV ONE (14:54)
[2021-03-21] MEDS ORDERED: DEXTROSE 50% SYRINGE 50 ML IVP STA (14:54)
[2021-03-21] MEDS ORDERED: FUROSEMIDE 10 MG/ML 10 ML VIAL IV STA (14:55)
[2021-03-21] MEDS: HYDROcodone/APAP 5-325MG 1 EACH TAB PO PRN (15:26)
--- NOTE | 2021-03-21 21:20 | P.PN ---
Progress Note - Text Progress Note Date: 03/21/21 this is the second night , when RN voices concerns that patient seems confused all day , and oriented to self only, both RNs thought her baseline was AXOX2-3, this is not reflected on providers note. Both RNs concerned that patient looks lethargic and shaky , with some jerky hand movement . again primary provider note indicates patient fell on knees while at dialysis center , no report of head injury . no brain CT done upon admission electrolyte imbalance from this morning labs, most likely corrected by HD today (ESRD patient) patient vitals reflecting borderline low normal BP with tachycardia exam plan CT brain without contrast ABG to rule out any intracranial or respiratory causes of being lethargic which is new compared to her baseline
[2021-03-21] MEDS ORDERED: diphenhydrAMINE 25 MG CAP PO STA (21:44)
[2021-03-21] MEDS: PRIMIDONE 50 MG TAB PO SCH (21:57)
[2021-03-21] MEDS: ATORVASTATIN 10 MG TAB PO SCH (21:57)
[2021-03-21] MEDS: MONTELUKAST 10 MG TAB PO SCH (21:58)
[2021-03-21] MEDS: CINACALCET 30 MG TAB PO SCH (21:59)
[2021-03-22] MEDS: ALBUTEROL NEBULIZED 2.5 MG/3 ML INHALATION SCH ×5 (00:01→20:42)
[2021-03-22] MEDS: HYDROcodone/APAP 5-325MG 1 EACH TAB PO PRN ×7 (00:20→22:49)
[2021-03-22] MEDS: PHENYTOIN SODIUM EXTENDED 100 MG CAP PO SCH ×3 (05:05→22:48)
[2021-03-22] MEDS: ASPIRIN 81 MG PO SCH (08:09)
[2021-03-22] MEDS: METOPROLOL TARTRATE 25 MG TAB PO SCH ×2 (08:09→19:52)
[2021-03-22] MEDS: HEPARIN SODIUM,PORCINE/PF 5,000 UNIT/0.5 ML SYRINGE SQ SCH ×2 (08:10→22:48)
[2021-03-22] MEDS: PANTOPRAZOLE 40 MG TABLET PO SCH (08:10)
[2021-03-22] MEDS: FOLIC ACID 1 MG TAB PO SCH (08:10)
[2021-03-22] MEDS: FUROSEMIDE 80 MG TAB PO SCH ×2 (08:10→17:33)
[2021-03-22] MEDS: FOLIC ACID-VIT B COMPLEX-VIT C 1 CAP PO SCH (08:10)
[2021-03-22] MEDS: CALCIUM ACETATE 667 MG TAB PO SCH ×4 (08:10→19:52)
[2021-03-22] MEDS: SYMBICORT 80-4.5 MCG INHALER INHALATION SCH ×2 (08:55→20:42)
--- NOTE | 2021-03-22 12:06 | P.PN ---
Subjective Patient is seen in follow-up for end-stage renal disease. She is maintained on hemodialysis on Saturday schedule. Underwent extra treatment of hemodialysis yesterday due to hyperkalemia. Tolerating dialysis well currently. Feels cold. Vital signs are stable. General: The patient appeared well nourished and normally developed. HEENT: Head exam is unremarkable. LUNGS: Breath sounds decreased. HEART: Rate and Rhythm are regular. ABDOMEN: Soft, obese. EXTREMITITES: No edema. Objective - Vital Signs Vital signs: Vital Signs Temp 99.0 F 03/22/21 07:05 Pulse 88 03/22/21 11:53 Resp 20 03/22/21 07:05 BP 126/81 03/22/21 07:05 Pulse Ox 99 03/22/21 07:05 Intake & Output 03/21/21 03/22/21 03/22/21 18:59 06:59 18:59 Output Total 50 Balance -50 Output: Urine 50 Other: Voiding Method Indwelling Catheter Indwelling Catheter Indwelling Catheter - Labs CBC & Chem 7: 03/21/21 07:23 03/21/21 07:23 Labs: Abnormal Lab Results - Last 24 Hours (Table) 03/21/21 Range/Units 07:23 Sodium 134 L (135-145) mmol/L Potassium 6.2 H* (3.5-5.5) mmol/L Chloride 93 L (96-109) mmol/L Anion Gap 12.70 H (4.00-12.00) mmol/L BUN 41.9 H (9.0-27.0) mg/dL Creatinine 4.8 H (0.6-1.5) mg/dL Est GFR (CKD-EPI)AfAm 10.3 L (60.0-200.0) Est GFR (CKD-EPI)NonAf 8.9 L (60.0-200.0) BUN/Creatinine Ratio 8.78 L (12.00-20.00) Ratio Calcium 8.3 L (8.7-10.3) mg/dL Assessment and Plan Plan: Assessment: 1. End-stage renal disease maintained on hemodialysis on Saturday schedule. 2. Status post fall with tibial fractures. 3. Diabetes mellitus. 4. Chronic kidney disease mineral bone disease maintained on PhosLo and Sensipar. 5. Hypertension with chronic kidney disease. Stable. Plan: Currently seen was undergoing hemodialysis. Next treatment on Saturday. Hold hydralazine for systolic blood pressure less than 120. Maintain oral Lasix. Stop nonsteroidals.
--- NOTE | 2021-03-22 13:03 | P.PN ---
Subjective Patient is doing a lot better compared to yesterday. Her mentation is significantly better. Awaiting knee braces. Objective - Vital Signs Vital signs: Vital Signs Temp 99.0 F 03/22/21 07:05 Pulse 88 03/22/21 11:53 Resp 20 03/22/21 07:05 BP 126/81 03/22/21 07:05 Pulse Ox 99 03/22/21 07:05 Intake & Output 03/21/21 03/22/21 03/22/21 18:59 06:59 18:59 Output Total 50 Balance -50 Output: Urine 50 Other: Voiding Method Indwelling Catheter Indwelling Catheter Indwelling Catheter - Exam General: The patient is awake and alert, in no distress Eye: there is normal conjunctiva bilaterally. Neck: The neck is supple, there is no JVD. Cardiovascular: Normal S1-S2, no S3-S4, no murmurs. Respiratory: Lungs clear to auscultation bilaterally Gastrointestinal: Abdomen is soft, nontender Musculoskeletal: There is no pedal edema. Neurological:. Speech is normal. Skin: Skin is warm and dry - Labs CBC & Chem 7: 03/21/21 07:23 03/21/21 07:23 Labs: Abnormal Lab Results - Last 24 Hours (Table) 03/21/21 Range/Units 07:23 Sodium 134 L (135-145) mmol/L Potassium 6.2 H* (3.5-5.5) mmol/L Chloride 93 L (96-109) mmol/L Anion Gap 12.70 H (4.00-12.00) mmol/L BUN 41.9 H (9.0-27.0) mg/dL Creatinine 4.8 H (0.6-1.5) mg/dL Est GFR (CKD-EPI)AfAm 10.3 L (60.0-200.0) Est GFR (CKD-EPI)NonAf 8.9 L (60.0-200.0) BUN/Creatinine Ratio 8.78 L (12.00-20.00) Ratio Calcium 8.3 L (8.7-10.3) mg/dL Assessment and Plan Assessment: 1. Bilateral tib-fib fracture secondary to fall, seen and evaluated by orthopedic surgery. Conservative management recommended with no surgical intervention. Currently in bilateral knee immobilizer. Nonweightbearing for now as recommended. t on [place] 5/325 every 4 hours as needed 2. End-stage renal disease on hemodialysis, nephrology consulted 3. Severe COPD on 4 L of oxygen at home, with no evidence of exacerbation 4. Type 2 diabetes, underlying IBS, chronic liver disease, 5. DVT prophylaxis with subcu heparin Today, I reviewed her medication list and lab work results. Discontinued oral hydralazine as blood pressure is borderline low Appreciate nephrology recommendation for dialysis Repeat lab work in the morning Continue to monitor clinical status closely and anticipate discharge back to [facility]CF when medically stable
[2021-03-22 15:14] LABS: Hepatitis B Surface AB- Quant 3.5 mIU/mL; Hepatitis B Surface Antibody Nonreactive (Nonreactive); Hepatitis B Surface Antigen Nonreactive (Nonreactive)
--- NOTE | 2021-03-22 19:19 | P.PN ---
Subjective Progress Note Date: 03/22/21 Patient is seen and examined bedside this morning. Her mental status has improved compared to yesterday, she is orientated to person and place. She states her pain is tolerable if she is not moving, her left is more painful than the right. She is currently undergoing hemodialysis. Vital signs stable. Objective - Vital Signs Vital signs: Vital Signs Temp 97.8 F 03/22/21 16:17 Pulse 81 03/22/21 16:17 Resp 20 03/22/21 16:17 BP 129/63 03/22/21 16:17 Pulse Ox 92 L 03/22/21 14:00 Intake & Output 03/22/21 03/22/21 03/23/21 06:59 18:59 06:59 Output Total 1750 Balance -1750 Output: Urine 50 Hemodialysis 1700 Other: Voiding Method Indwelling Catheter Indwelling Catheter - Exam On examination, patient is sitting up in bed in no apparent distress. She is alert and orientated to person and place. On inspection of the right lower extremity, there is a knee immobilizer in the place. The immobilizer is opened up and reveals diffuse swelling and ecchymosis of the anterior lower leg. No open wounds. Calf is soft. She has good strength and ROM of the ankle and toes. Motor and sensory function intact. Foot is well perfused with brisk capillary refill. On inspection of the left lower extremity, there is a knee immobilizer in place. The immobilizer is opened up and reveals diffuse swelling and ecchymosis of the anterior lower leg. No open wounds. Calf is soft. She has good strength and ROM of the ankle and toes. Motor and sensory function intact. Foot is well perfused with brisk capillary refill. - Labs CBC & Chem 7: 03/21/21 07:23 03/21/21 07:23 Assessment and Plan Assessment: Bilateral minimally displaced proximal tibia and fibula fractures. End-stage renal disease on hemodialysis. COPD on 4 L of oxygen at home. Diabetes. Plan: - We have no plans for surgical intervention at this time. Patient should remain non-weight bearing on the bilateral lower extremities. Bilateral T-scope knee braces have been ordered with the assistance of case management. Braces should remain locked in extension. We will plan to follow patient very closely as an outpatient. - Pain management as needed, per internal medicine. - Medical management per internal medicine and nephrology. - We will follow patient closely.
[2021-03-22] MEDS: ATORVASTATIN 10 MG TAB PO SCH (19:51)
[2021-03-22] MEDS: GABAPENTIN 300 MG CAP PO SCH (19:52)
[2021-03-22] MEDS: MONTELUKAST 10 MG TAB PO SCH (19:52)
[2021-03-22] MEDS: PRIMIDONE 50 MG TAB PO SCH (19:52)
[2021-03-22] MEDS: ACETAMINOPHEN TAB 325 MG TAB PO PRN (19:53)
[2021-03-22] MEDS: ALPRAZolam 0.5 MG TAB PO PRN (19:53)
[2021-03-22 20:20] LABS: Glucose,Whole Blood 182 mg/dL (75-99)
[2021-03-22] MEDS: CINACALCET 30 MG TAB PO SCH (22:48)
[2021-03-23] MEDS: ALBUTEROL NEBULIZED 2.5 MG/3 ML INHALATION SCH ×4 (01:49→21:07)
[2021-03-23] MEDS: HYDROcodone/APAP 5-325MG 1 EACH TAB PO PRN ×5 (02:41→21:59)
[2021-03-23] MEDS: ACETAMINOPHEN TAB 325 MG TAB PO PRN (05:54)
[2021-03-23] MEDS: PHENYTOIN SODIUM EXTENDED 100 MG CAP PO SCH ×3 (05:54→21:58)
[2021-03-23 07:02] LABS: Glucose,Whole Blood 114 mg/dL (75-99)
[2021-03-23] MEDS: SYMBICORT 80-4.5 MCG INHALER INHALATION SCH ×2 (08:24→21:08)
[2021-03-23] MEDS: CALCIUM ACETATE 667 MG TAB PO SCH ×4 (09:44→19:41)
[2021-03-23] MEDS: HEPARIN SODIUM,PORCINE/PF 5,000 UNIT/0.5 ML SYRINGE SQ SCH ×2 (09:44→21:58)
[2021-03-23] MEDS: METOPROLOL TARTRATE 25 MG TAB PO SCH ×2 (09:45→19:42)
[2021-03-23] MEDS: FUROSEMIDE 80 MG TAB PO SCH ×2 (09:45→16:09)
[2021-03-23] MEDS: PANTOPRAZOLE 40 MG TABLET PO SCH (09:45)
[2021-03-23] MEDS: FOLIC ACID-VIT B COMPLEX-VIT C 1 CAP PO SCH (09:45)
[2021-03-23] MEDS: ASPIRIN 81 MG PO SCH (09:45)
[2021-03-23] MEDS: FOLIC ACID 1 MG TAB PO SCH (09:45)
[2021-03-23] MEDS ORDERED: CALCIUM GLUCONATE 1 GM in SODIUM CHLORIDE 0.9% 100 ML IVPB ONE (09:55)
--- NOTE | 2021-03-23 10:35 | P.PN ---
Subjective Patient is seen in follow-up for end-stage renal disease. She is maintained on hemodialysis on Saturday schedule. Resting in bed. Awake and alert today. No active complaints. Vital signs are stable. General: The patient appeared well nourished and normally developed. HEENT: Head exam is unremarkable. LUNGS: Breath sounds decreased. HEART: Rate and Rhythm are regular. ABDOMEN: Soft, obese. EXTREMITITES: No edema. Leg brace noted. Objective - Vital Signs Vital signs: Vital Signs Temp 98.7 F 03/23/21 08:00 Pulse 74 03/23/21 08:36 Resp 19 03/23/21 08:00 BP 109/63 03/23/21 08:00 Pulse Ox 96 03/23/21 08:24 Intake & Output 03/22/21 03/23/21 03/23/21 18:59 06:59 18:59 Output Total 1750 Balance -1750 Output: Urine 50 Hemodialysis 1700 Other: Voiding Method Indwelling Catheter Indwelling Catheter - Labs CBC & Chem 7: 03/21/21 07:23 03/21/21 07:23 Labs: Abnormal Lab Results - Last 24 Hours (Table) 03/22/21 03/23/21 Range/Units 20:18 07:00 POC Glucose (mg/dL) 182 H 114 H (75-99) mg/dL Assessment and Plan Plan: Assessment: 1. End-stage renal disease maintained on hemodialysis on Saturday schedule. 2. Status post fall with tibial fractures. Orthopedic surgery following. 3. Diabetes mellitus. 4. Chronic kidney disease mineral bone disease maintained on PhosLo and Sensipar. 5. Hypertension with chronic kidney disease. Stable. 6. Hyperkalemia secondary to chronic kidney disease. Expect improvement postdialysis. Plan: Check potassium level today. Plan for hemodialysis on Saturday unless potassium level elevated today. Hold hydralazine for systolic blood pressure less than 120. Maintain oral Lasix. Stopped nonsteroidals.
[2021-03-23 11:00] LABS: African American GFR (CKD) 11 (>60 ml/min/1.73 sqM); Anion Gap 11 mmol/L; Blood Urea Nitrogen 42 mg/dL (7-17); Calcium 8.3 mg/dL (8.4-10.2); Carbon Dioxide 21 mmol/L (22-30); Chloride 100 mmol/L (98-107); Glucose 132 mg/dL (74-99); Non-African American GFR(CKD) 10 (>60 ml/min/1.73 sqM); Phosphorus 3.8 mg/dL (2.5-4.5); Potassium 5.1 mmol/L (3.5-5.1); Sodium 132 mmol/L (137-145)
[2021-03-23 11:09] LABS: Anisocytosis Slight; Basophils % (A) 0 %; Eosinophils # (A) 0.3 k/uL (0-0.7); Eosinophils % (A) 4 %; HCT 28.7 % (34.0-46.0); Hypochromasia Marked; Lymphocytes # (A) 1.1 k/uL (1.0-4.8); Lymphocytes % (A) 16 %; MCH 33.1 pg (25.0-35.0); MCV 110.4 fL (80.0-100.0); Macrocytosis Marked; Monocytes # (A) 0.5 k/uL (0-1.0); Monocytes % (A) 7 %; Neutrophils % (A) 71 %; Platelet Count 177 k/uL (150-450); Poikilocytosis Slight; RDW 16.4 % (11.5-15.5); WBC 7.1 k/uL (3.8-10.6)
[2021-03-23 11:11] LABS: HGB 8.6 gm/dL (11.4-16.0)
[2021-03-23 11:45] LABS: Glucose,Whole Blood 121 mg/dL (75-99)
--- NOTE | 2021-03-23 14:19 | P.PN ---
Subjective Patient was crying in pain today. She said that her legs hurt so much. She has been getting Malott with minimal relief. Objective - Vital Signs Vital signs: Vital Signs Temp 98.7 F 03/23/21 08:00 Pulse 74 03/23/21 08:36 Resp 19 03/23/21 08:00 BP 109/63 03/23/21 08:00 Pulse Ox 96 03/23/21 08:24 Intake & Output 03/22/21 03/23/21 03/23/21 18:59 06:59 18:59 Output Total 1750 Balance -1750 Output: Urine 50 Hemodialysis 1700 Other: Voiding Method Indwelling Catheter Indwelling Catheter Indwelling Catheter - Exam General: The patient is awake and alert, in no distress Eye: there is normal conjunctiva bilaterally. Neck: The neck is supple, there is no JVD. Cardiovascular: Normal S1-S2, no S3-S4, no murmurs. Respiratory: Lungs clear to auscultation bilaterally Gastrointestinal: Abdomen is soft, nontender Musculoskeletal: There is no pedal edema. Neurological:. Speech is normal. Skin: Skin is warm and dry - Labs CBC & Chem 7: 03/23/21 09:25 03/23/21 09:25 Labs: Abnormal Lab Results - Last 24 Hours (Table) 03/22/21 03/23/21 03/23/21 Range/Units 20:18 07:00 09:25 RBC 2.60 L (3.80-5.40) m/uL Hgb 8.6 L D (11.4-16.0) gm/dL Hct 28.7 L (34.0-46.0) % MCV 110.4 H (80.0-100.0) fL MCHC 30.0 L (31.0-37.0) g/dL RDW 16.4 H (11.5-15.5) % Macrocytosis Marked A Sodium (137-145) mmol/L Carbon Dioxide (22-30) mmol/L BUN (7-17) mg/dL Creatinine (0.52-1.04) mg/dL Glucose (74-99) mg/dL POC Glucose (mg/dL) 182 H 114 H (75-99) mg/dL Calcium (8.4-10.2) mg/dL 10/28/21 10/28/21 Range/Units 09:25 11:44 RBC (3.80-5.40) m/uL Hgb (11.4-16.0) gm/dL Hct (34.0-46.0) % MCV (80.0-100.0) fL MCHC (31.0-37.0) g/dL RDW (11.5-15.5) % Macrocytosis Sodium 132 L (137-145) mmol/L Carbon Dioxide 21 L (22-30) mmol/L BUN 42 H (7-17) mg/dL Creatinine 4.42 H (0.52-1.04) mg/dL Glucose 132 H (74-99) mg/dL POC Glucose (mg/dL) 121 H (75-99) mg/dL Calcium 8.3 L (8.4-10.2) mg/dL Assessment and Plan Assessment: 1. Bilateral tib-fib fracture secondary to fall, seen and evaluated by orthopedic surgery. Conservative management recommended with no surgical intervention. Currently in bilateral knee immobilizer. Nonweightbearing for now as recommended. t on [place] 5/325 every 4 hours as needed 2. End-stage renal disease on hemodialysis, nephrology consulted 3. Severe COPD on 4 L of oxygen at home, with no evidence of exacerbation 4. Type 2 diabetes, underlying IBS, chronic liver disease, 5. DVT prophylaxis with subcu heparin Today, I reviewed her medication list and lab work results. Discontinued oral hydralazine as blood pressure is borderline low Appreciate nephrology recommendation for dialysis Plan for discharge back to ECF tomorrow after dialysis
--- NOTE | 2021-03-23 14:21 | XR ---
EXAMINATION TYPE: XR tibia fibula bilateral DATE OF EXAM: 03/23/2021 CLINICAL HISTORY: pain TECHNIQUE: AP and lateral images of the bilateral tibia and fibula are obtained. COMPARISON: 03/20/2021 FINDINGS: Bilateral tibial fractures described previously. Proximal right fibular fracture described previously. Alignment is similar. Overlying hardware limits evaluation. IMPRESSION: As above
--- NOTE | 2021-03-23 15:37 | P.PN ---
Subjective Progress Note Date: 03/23/21 Patient is seen and examined bedside this morning. Patient is currently resting in bed. She is currently receiving a breathing treatment. Patient notes continued pain in the bilateral lower legs. She has received her new braces. She has no new complaints. Vital signs stable. Objective - Vital Signs Vital signs: Vital Signs Temp 97.9 F 03/23/21 14:00 Pulse 80 03/23/21 14:00 Resp 15 03/23/21 14:00 BP 113/68 03/23/21 14:00 Pulse Ox 95 03/23/21 14:00 Intake & Output 03/22/21 03/23/21 03/23/21 18:59 06:59 18:59 Output Total 1750 Balance -1750 Output: Urine 50 Hemodialysis 1700 Other: Voiding Method Indwelling Catheter Indwelling Catheter Indwelling Catheter - Exam On examination, patient is sitting up in bed in no apparent distress. She is currently receiving a breathing treatment. She is alert and orientated to person and place. On inspection of the right lower extremity, there is a T-scope knee brace in the place. There is diffuse swelling and ecchymosis of the anterior lower leg. No open wounds. Calf is soft. She has good strength and ROM of the ankle and toes. Motor and sensory function intact. Foot is warm and well perfus ed with brisk capillary refill. On inspection of the left lower extremity, there is a T-scope knee brace in place. There is diffuse swelling and ecchymosis of the anterior lower leg. No open wounds. Calf is soft. She has good strength and ROM of the ankle and toes. Motor and sensory function intact. Foot is warm and well perfused with brisk capillary refill. - Labs CBC & Chem 7: 03/23/21 09:25 03/23/21 09:25 Labs: Abnormal Lab Results - Last 24 Hours (Table) 03/22/21 03/23/21 03/23/21 Range/Units 20:18 07:00 09:25 RBC 2.60 L (3.80-5.40) m/uL Hgb 8.6 L D (11.4-16.0) gm/dL Hct 28.7 L (34.0-46.0) % MCV 110.4 H (80.0-100.0) fL MCHC 30.0 L (31.0-37.0) g/dL RDW 16.4 H (11.5-15.5) % Macrocytosis Marked A Sodium (137-145) mmol/L Carbon Dioxide (22-30) mmol/L BUN (7-17) mg/dL Creatinine (0.52-1.04) mg/dL Glucose (74-99) mg/dL POC Glucose (mg/dL) 182 H 114 H (75-99) mg/dL Calcium (8.4-10.2) mg/dL 03/23/21 03/23/21 Range/Units 09:25 11:44 RBC (3.80-5.40) m/uL Hgb (11.4-16.0) gm/dL Hct (34.0-46.0) % MCV (80.0-100.0) fL MCHC (31.0-37.0) g/dL RDW (11.5-15.5) % Macrocytosis Sodium 132 L (137-145) mmol/L Carbon Dioxide 21 L (22-30) mmol/L BUN 42 H (7-17) mg/dL Creatinine 4.42 H (0.52-1.04) mg/dL Glucose 132 H (74-99) mg/dL POC Glucose (mg/dL) 121 H (75-99) mg/dL Calcium 8.3 L (8.4-10.2) mg/dL Assessment and Plan Assessment: Bilateral minimally displaced proximal tibia and fibula fractures. End-stage renal disease on hemodialysis. COPD on 4 L of oxygen at home. Diabetes. Plan: - We have no plans for surgical intervention at this time. X-rays of the bilateral tibia and fibula were repeated today and showed no significant interval displacement. - Patient should remain non-weight bearing on the bilateral lower extremities. Bilateral T-scope knee braces should remain locked in extension. We will plan to follow patient very closely as an outpatient. - Pain management as needed, per internal medicine. - Medical management per internal medicine and nephrology. - We will follow patient closely. She should follow-up in the office in 7-10 days for repeat x-rays.
[2021-03-23 16:54] LABS: Glucose,Whole Blood 128 mg/dL (75-99)
[2021-03-23] MEDS: ATORVASTATIN 10 MG TAB PO SCH (19:41)
[2021-03-23] MEDS: PRIMIDONE 50 MG TAB PO SCH (19:42)
[2021-03-23] MEDS: MONTELUKAST 10 MG TAB PO SCH (19:42)
[2021-03-23 20:33] LABS: Glucose,Whole Blood 127 mg/dL (75-99)
[2021-03-23] MEDS: CINACALCET 30 MG TAB PO SCH (21:58)
[2021-03-24] MEDS: ALBUTEROL NEBULIZED 2.5 MG/3 ML INHALATION SCH ×4 (00:01→20:30)
[2021-03-24] MEDS: ALPRAZolam 0.5 MG TAB PO PRN (01:02)
[2021-03-24] MEDS: HYDROcodone/APAP 5-325MG 1 EACH TAB PO PRN ×4 (01:02→21:28)
[2021-03-24] MEDS: PHENYTOIN SODIUM EXTENDED 100 MG CAP PO SCH ×3 (06:04→21:30)
[2021-03-24] MEDS: SYMBICORT 80-4.5 MCG INHALER INHALATION SCH ×2 (07:39→20:27)
[2021-03-24 08:22] LABS: Glucose,Whole Blood 114 mg/dL (75-99)
[2021-03-24] MEDS: FOLIC ACID-VIT B COMPLEX-VIT C 1 CAP PO SCH (08:23)
[2021-03-24] MEDS: FUROSEMIDE 80 MG TAB PO SCH ×2 (08:23→16:50)
[2021-03-24] MEDS: FOLIC ACID 1 MG TAB PO SCH (08:23)
[2021-03-24] MEDS: CALCIUM ACETATE 667 MG TAB PO SCH ×4 (08:23→20:40)
[2021-03-24] MEDS: ASPIRIN 81 MG PO SCH (08:23)
[2021-03-24] MEDS: METOPROLOL TARTRATE 25 MG TAB PO SCH ×2 (08:23→20:40)
[2021-03-24] MEDS: PANTOPRAZOLE 40 MG TABLET PO SCH (08:23)
[2021-03-24] MEDS: HEPARIN SODIUM,PORCINE/PF 5,000 UNIT/0.5 ML SYRINGE SQ SCH ×2 (08:23→20:41)
--- NOTE | 2021-03-24 11:00 | P.PN ---
Subjective Patient is seen in follow-up for end-stage renal disease. She is maintained on hemodialysis on Saturday schedule. Resting in bed. No active complaints. Scheduled for dialysis today. Vital signs are stable. General: The patient appeared well nourished and normally developed. HEENT: Head exam is unremarkable. LUNGS: Breath sounds decreased. HEART: Rate and Rhythm are regular. ABDOMEN: Soft, obese. EXTREMITITES: No edema. Leg brace noted. Objective - Vital Signs Vital signs: Vital Signs Temp 98.8 F 03/24/21 01:04 Pulse 82 03/24/21 01:04 Resp 15 03/24/21 01:04 BP 99/62 03/24/21 01:04 Pulse Ox 92 L 03/24/21 01:04 Intake & Output 03/23/21 03/24/21 03/24/21 18:59 06:59 18:59 Output Total 0 500 Balance 0 -500 Output: Urine 0 500 Uretheral (Espinoza) 500 Other: Voiding Method Indwelling Catheter Indwelling Catheter - Labs CBC & Chem 7: 03/23/21 09:25 03/23/21 09:25 Labs: Abnormal Lab Results - Last 24 Hours (Table) 03/23/21 03/23/21 03/23/21 Range/Units 09:25 09:25 11:44 RBC 2.60 L (3.80-5.40) m/uL Hgb 8.6 L D (11.4-16.0) gm/dL Hct 28.7 L (34.0-46.0) % MCV 110.4 H (80.0-100.0) fL MCHC 30.0 L (31.0-37.0) g/dL RDW 16.4 H (11.5-15.5) % Macrocytosis Marked A Sodium 132 L (137-145) mmol/L Carbon Dioxide 21 L (22-30) mmol/L BUN 42 H (7-17) mg/dL Creatinine 4.42 H (0.52-1.04) mg/dL Glucose 132 H (74-99) mg/dL POC Glucose (mg/dL) 121 H (75-99) mg/dL Calcium 8.3 L (8.4-10.2) mg/dL 03/23/21 03/23/21 03/24/21 Range/Units 16:52 20:32 08:02 RBC (3.80-5.40) m/uL Hgb (11.4-16.0) gm/dL Hct (34.0-46.0) % MCV (80.0-100.0) fL MCHC (31.0-37.0) g/dL RDW (11.5-15.5) % Macrocytosis Sodium (137-145) mmol/L Carbon Dioxide (22-30) mmol/L BUN (7-17) mg/dL Creatinine (0.52-1.04) mg/dL Glucose (74-99) mg/dL POC Glucose (mg/dL) 128 H 127 H 114 H (75-99) mg/dL Calcium (8.4-10.2) mg/dL Assessment and Plan Plan: Assessment: 1. End-stage renal disease maintained on hemodialysis on Saturday schedule. 2. Status post fall with tibial fractures. Orthopedic surgery following. No plans for surgical retention. 3. Diabetes mellitus. 4. Chronic kidney disease mineral bone disease maintained on PhosLo and Sensipar. 5. Hypertension with chronic kidney disease. Blood pressure in the lower side. 6. Hyperkalemia secondary to chronic kidney disease. Improved postdialysis. Plan: Hemodialysis today.
[2021-03-24 11:51] LABS: Glucose,Whole Blood 133 mg/dL (75-99)
--- NOTE | 2021-03-24 13:13 | P.PN ---
Subjective Patient is doing well today. Pain is well controlled. No acute events overnight reported by nursing staff. Objective - Vital Signs Vital signs: Vital Signs Temp 98.3 F 03/24/21 11:24 Pulse 81 03/24/21 11:24 Resp 16 03/24/21 11:24 BP 133/75 03/24/21 11:24 Pulse Ox 92 L 03/24/21 11:24 Intake & Output 03/23/21 03/24/21 03/24/21 18:59 06:59 18:59 Output Total 0 500 Balance 0 -500 Output: Urine 0 500 Uretheral (Espinoza) 500 Other: Voiding Method Indwelling Catheter Indwelling Catheter Indwelling Catheter - Exam General: The patient is awake and alert, in no distress Eye: there is normal conjunctiva bilaterally. Neck: The neck is supple, there is no JVD. Cardiovascular: Normal S1-S2, no S3-S4, no murmurs. Respiratory: Lungs clear to auscultation bilaterally Gastrointestinal: Abdomen is soft, nontender Musculoskeletal: There is no pedal edema. Neurological:. Speech is normal. Skin: Skin is warm and dry - Labs CBC & Chem 7: 03/23/21 09:25 03/23/21 09:25 Labs: Abnormal Lab Results - Last 24 Hours (Table) 03/23/21 03/23/21 03/24/21 Range/Units 16:52 20:32 08:02 POC Glucose (mg/dL) 128 H 127 H 114 H (75-99) mg/dL 03/24/21 Range/Units 11:49 POC Glucose (mg/dL) 133 H (75-99) mg/dL Assessment and Plan Assessment: 1. Bilateral tib-fib fracture secondary to fall, seen and evaluated by o rthopedic surgery. Conservative management recommended with no surgical intervention. Currently in bilateral knee immobilizer. Nonweightbearing for now as recommended. t on [place] 5/325 every 4 hours as needed 2. End-stage renal disease on hemodialysis, nephrology consulted 3. Severe COPD on 4 L of oxygen at home, with no evidence of exacerbation 4. Type 2 diabetes, underlying IBS, chronic liver disease, 5. DVT prophylaxis with subcu heparin Today, I reviewed her medication list and lab work results. Discontinued oral hydralazine as blood pressure is borderline low Appreciate nephrology recommendation for dialysis Plan for discharge back to ECF awaiting social insurance adviser to find a new accepting ECF as her old one would not accept her back secondary to her current condition and bilateral fractures
--- NOTE | 2021-03-24 15:54 | P.PN ---
Subjective Progress Note Date: 03/24/21 Patient is seen and examined bedside this morning. Patient is up to the bedside chair. She states her pain is well-controlled at this time. No new complaints. Objective - Vital Signs Vital signs: Vital Signs Temp 98.1 F 03/24/21 14:00 Pulse 81 03/24/21 14:00 Resp 18 03/24/21 14:00 BP 129/84 03/24/21 14:00 Pulse Ox 97 03/24/21 14:00 Intake & Output 03/23/21 03/24/21 03/24/21 18:59 06:59 18:59 Output Total 0 500 Balance 0 -500 Output: Urine 0 500 Uretheral (Espinoza) 500 Other: Voiding Method Indwelling Catheter Indwelling Catheter Indwelling Catheter - Exam On examination, patient is sitting up in the bedside chair in no apparent distre ss. She is alert and orientated to person and place. On inspection of the right lower extremity, there is a T-scope knee brace in the place. There is diffuse swelling and ecchymosis of the anterior lower leg. No open wounds. Calf is soft. She has good strength and ROM of the ankle and toes. Motor and sensory function intact. Foot is warm and well perfused with brisk capillary refill. On inspection of the left lower extremity, there is a T-scope knee brace in place. There is diffuse swelling and ecchymosis of the anterior lower leg. No open wounds. Calf is soft. She has good strength and ROM of the ankle and toes. Motor and sensory function intact. Foot is warm and well perfused with brisk c apillary refill. - Labs CBC & Chem 7: 03/23/21 09:25 03/23/21 09:25 Labs: Abnormal Lab Results - Last 24 Hours (Table) 03/23/21 03/23/21 03/24/21 Range/Units 16:52 20:32 08:02 POC Glucose (mg/dL) 128 H 127 H 114 H (75-99) mg/dL 03/24/21 Range/Units 11:49 POC Glucose (mg/dL) 133 H (75-99) mg/dL Assessment and Plan Assessment: Bilateral minimally displaced proximal tibia and fibula fractures. End-stage renal disease on hemodialysis. COPD on 4 L of oxygen at home. Diabetes. Plan: - We have no plans for surgical intervention at this time. X-rays of the bilateral tibia and fibula taken on 03/23/21 were repeated today and showed no significant interval displacement. - Patient should remain non-weight bearing on the bilateral lower extremities. Bilateral T-scope knee braces should remain locked in extension. We will plan to follow patient very closely as an outpatient. - Pain management as needed, per internal medicine. - Medical management per internal medicine and nephrology. - We will follow patient peripherally. She should follow-up in the office in 7- 10 days for repeat x-rays.
[2021-03-24] MEDS: ATORVASTATIN 10 MG TAB PO SCH (20:40)
[2021-03-24] MEDS: CINACALCET 30 MG TAB PO SCH (20:40)
[2021-03-24] MEDS: GABAPENTIN 300 MG CAP PO SCH (20:40)
[2021-03-24] MEDS: PRIMIDONE 50 MG TAB PO SCH (20:40)
[2021-03-24] MEDS: MONTELUKAST 10 MG TAB PO SCH (20:40)
[2021-03-24 21:09] LABS: Glucose,Whole Blood 160 mg/dL (75-99)
[2021-03-25] MEDS: ALBUTEROL NEBULIZED 2.5 MG/3 ML INHALATION SCH ×5 (00:30→23:54)
[2021-03-25] MEDS: PHENYTOIN SODIUM EXTENDED 100 MG CAP PO SCH ×3 (06:24→21:34)
[2021-03-25 07:04] LABS: Glucose,Whole Blood 98 mg/dL (75-99)
[2021-03-25] MEDS: SYMBICORT 80-4.5 MCG INHALER INHALATION SCH ×2 (07:19→20:22)
[2021-03-25] MEDS: ASPIRIN 81 MG PO SCH (08:30)
[2021-03-25] MEDS: METOPROLOL TARTRATE 25 MG TAB PO SCH ×2 (08:30→20:03)
[2021-03-25] MEDS: PANTOPRAZOLE 40 MG TABLET PO SCH (08:30)
[2021-03-25] MEDS: HEPARIN SODIUM,PORCINE/PF 5,000 UNIT/0.5 ML SYRINGE SQ SCH ×2 (08:30→20:02)
[2021-03-25] MEDS: CALCIUM ACETATE 667 MG TAB PO SCH ×4 (08:31→20:03)
[2021-03-25] MEDS: FOLIC ACID 1 MG TAB PO SCH (08:31)
[2021-03-25] MEDS: FOLIC ACID-VIT B COMPLEX-VIT C 1 CAP PO SCH (08:41)
[2021-03-25] MEDS: FUROSEMIDE 80 MG TAB PO SCH ×2 (08:41→17:26)
--- NOTE | 2021-03-25 09:15 | P.PN ---
Subjective Progress Note Date: 03/25/21 Principal diagnosis: This is a 66-year-old female with ESRD on dialysis Saturday who fell and had bilateral fracture of the tibial fracture on conservative treatment . She has fair amount of pain. She is also known with COPD diabetes. Putting appetite is good. Shortness of breath no fever chills Objective - Vital Signs Vital signs: Vital Signs Temp 99.1 F 03/25/21 06:52 Pulse 79 03/25/21 06:52 Resp 17 03/25/21 02:00 BP 145/79 03/25/21 06:52 Pulse Ox 99 03/25/21 06:52 Intake & Output 03/24/21 03/25/21 03/25/21 18:59 06:59 18:59 Output Total 500 1999 Balance -500 -1999 Output: Urine 500 Uretheral (Espinoza) 500 Hemodialysis 1999 Other: Voiding Method Indwelling Catheter External Catheter # Voids 1 # Bowel Movements 1 Examination awake alert oriented comfortable Neck is supple no facial asymmetry Lungs clear to auscultation good air entry bilaterally Heart sounds unremarkable for any murmur rub gallop Abdomen soft nontender obese Extremity exam was trace edema Neurologically awake alert oriented - Labs CBC & Chem 7: 03/23/21 09:25 03/23/21 09:25 Labs: Abnormal Lab Results - Last 24 Hours (Table) 03/24/21 03/24/21 Range/Units 11:49 21:07 POC Glucose (mg/dL) 133 H 160 H (75-99) mg/dL Assessment and Plan Assessment: Impression 1. ESRD on dialysis Saturday with a graft in the right upper arm. 2. History of fall with bilateral tibial fractures, in a knee immobilizer, in pain 3. COPD 4. Diabetes mellitus. 5. Anemia off chronic kidney disease, hemoglobin is 8.6 down from 11.2 on March 20. Recommendation 1. Next dialysis Saturday 2. Check iron saturation 3. Pain control 4. Monitor labs
[2021-03-25] MEDS: ALPRAZolam 0.5 MG TAB PO PRN ×2 (10:07→17:26)
[2021-03-25] MEDS: HYDROcodone/APAP 5-325MG 1 EACH TAB PO PRN ×4 (10:07→21:34)
[2021-03-25 11:20] LABS: Glucose,Whole Blood 131 mg/dL (75-99)
--- NOTE | 2021-03-25 12:14 | P.PN ---
Subjective Patient is doing well today. Pain is well controlled. No acute events overnight reported by nursing staff. Objective - Vital Signs Vital signs: Vital Signs Temp 99.1 F 03/25/21 06:52 Pulse 79 03/25/21 06:52 Resp 17 03/25/21 02:00 BP 145/79 03/25/21 06:52 Pulse Ox 99 03/25/21 06:52 Intake & Output 03/24/21 03/25/21 03/25/21 18:59 06:59 18:59 Output Total 500 2000 Balance -500 -2000 Output: Urine 500 Uretheral (Espinoza) 500 Hemodialysis 2000 Other: Voiding Method Indwelling Catheter External Catheter External Catheter # Voids 1 # Bowel Movements 1 - Exam General: The patient is awake and alert, in no distress Eye: there is normal conjunctiva bilaterally. Neck: The neck is supple, there is no JVD. Cardiovascular: Normal S1-S2, no S3-S4, no murmurs. Respiratory: Lungs clear to auscultation bilaterally Gastrointestinal: Abdomen is soft, nontender Musculoskeletal: There is no pedal edema. Neurological:. Speech is normal. Skin: Skin is warm and dry - Labs CBC & Chem 7: 03/23/21 09:25 03/23/21 09:25 Labs: Abnormal Lab Results - Last 24 Hours (Table) 03/24/21 03/25/21 Range/Units 21:07 11:18 POC Glucose (mg/dL) 160 H 131 H (75-99) mg/dL Assessment and Plan Assessment: This is a 66-year-old female with complex past medical history noted below that presented to the emergency room after she sustained a fall at the dialysis center well transferring to her wheelchair. Patient landed on her knees. She was evaluated in the ER and admitted to the hospital for further management of her medical problems noted below. 1. Bilateral tib-fib fracture secondary to fall, seen and evaluated by orthopedic surgery. Conservative management recommended with no surgical intervention. Currently in bilateral knee immobilizer. Nonweightbearing for now as recommended. t on [place] 5/325 every 4 hours as needed 2. End-stage renal disease on hemodialysis, nephrology consulted 3. Severe COPD on 4 L of oxygen at home, with no evidence of exacerbation 4. Type 2 diabetes, underlying IBS, chronic liver disease, 5. DVT prophylaxis with subcu heparin Today, I reviewed her medication list and lab work results. Discontinued oral hydralazine as blood pressure is borderline low Appreciate nephrology recommendation for dialysis Plan for discharge back to ECF awaiting psychologist social to find a new accepting ECF as her old one would not accept her back secondary to her current condition and bilateral fractures
[2021-03-25 16:49] LABS: Glucose,Whole Blood 127 mg/dL (75-99)
[2021-03-25] MEDS: PRIMIDONE 50 MG TAB PO SCH (20:03)
[2021-03-25] MEDS: MONTELUKAST 10 MG TAB PO SCH (20:03)
[2021-03-25] MEDS: ATORVASTATIN 10 MG TAB PO SCH (20:03)
[2021-03-25 20:06] LABS: Glucose,Whole Blood 111 mg/dL (75-99)
[2021-03-25] MEDS: CINACALCET 30 MG TAB PO SCH (21:34)
[2021-03-26] MEDS: HYDROcodone/APAP 5-325MG 1 EACH TAB PO PRN ×5 (05:36→21:20)
[2021-03-26] MEDS: ALPRAZolam 0.5 MG TAB PO PRN ×3 (05:36→21:20)
[2021-03-26] MEDS: PHENYTOIN SODIUM EXTENDED 100 MG CAP PO SCH ×3 (05:47→21:22)
[2021-03-26 06:57] LABS: Glucose,Whole Blood 105 mg/dL (75-99)
[2021-03-26] MEDS: ALBUTEROL NEBULIZED 2.5 MG/3 ML INHALATION SCH ×3 (07:38→20:34)
[2021-03-26] MEDS: SYMBICORT 80-4.5 MCG INHALER INHALATION SCH ×2 (07:38→20:33)
[2021-03-26] MEDS: CALCIUM ACETATE 667 MG TAB PO SCH ×4 (07:40→21:27)
[2021-03-26] MEDS: PANTOPRAZOLE 40 MG TABLET PO SCH (07:40)
[2021-03-26] MEDS: HEPARIN SODIUM,PORCINE/PF 5,000 UNIT/0.5 ML SYRINGE SQ SCH ×2 (07:40→21:28)
[2021-03-26] MEDS: ASPIRIN 81 MG PO SCH (07:40)
[2021-03-26] MEDS: FOLIC ACID 1 MG TAB PO SCH (07:40)
[2021-03-26] MEDS: METOPROLOL TARTRATE 25 MG TAB PO SCH ×2 (07:40→21:22)
[2021-03-26] MEDS: FOLIC ACID-VIT B COMPLEX-VIT C 1 CAP PO SCH (07:41)
[2021-03-26] MEDS: FUROSEMIDE 80 MG TAB PO SCH ×2 (07:41→17:11)
--- NOTE | 2021-03-26 07:43 | P.PN ---
Subjective Progress Note Date: 03/26/21 Principal diagnosis: This is a 66-year-old female with ESRD on dialysis Saturday who fell and had bilateral fracture of the tibial fracture on conservative treatment . She has fair amount of pain. She is also known with COPD diabetes. She complains of pain other than this appetite is good. Denies any Shortness of breath no fever chills Objective - Vital Signs Vital signs: Vital Signs Temp 99.1 F 03/26/21 05:18 Pulse 84 03/26/21 05:18 Resp 15 03/26/21 05:18 BP 125/56 03/26/21 05:18 Pulse Ox 95 03/26/21 05:18 Intake & Output 03/25/21 03/26/21 03/26/21 18:59 06:59 18:59 Intake Total 480 Output Total 100 Balance 480 -100 Intake: Oral 480 Output: Urine 100 Other: Voiding Method External Catheter External Catheter External Catheter Allergen awake alert oriented comfortable Neck is supple no facial asymmetry Lungs clear to auscultation good air entry bilaterally Heart sounds unremarkable for any murmur rub gallop Abdomen soft nontender Extremity exam was no edema Neurologically awake alert oriented - Labs CBC & Chem 7: 03/23/21 09:25 03/23/21 09:25 Labs: Abnormal Lab Results - Last 24 Hours (Table) 03/25/21 03/25/21 03/25/21 Range/Units 11:18 16:48 20:04 POC Glucose (mg/dL) 131 H 127 H 111 H (75-99) mg/dL 03/26/21 Range/Units 06:56 POC Glucose (mg/dL) 105 H (75-99) mg/dL Assessment and Plan Assessment: Impression 1. ESRD on dialysis Saturday with a graft in the right upper arm. 2. History of fall with bilateral tibial fractures, in a knee immobilizer, in pain 3. COPD 4. Diabetes mellitus. 5. Anemia off chronic kidney disease, hemoglobin is 8.6 down from 11.2 on March 20. Recommendation 1. Next dialysis Saturday tomorrow 20 half hours ultrafiltrate 20 half liters 2. Check iron saturation 3. Pain control 4. Monitor labs
[2021-03-26 11:27] LABS: Glucose,Whole Blood 100 mg/dL (75-99)
[2021-03-26 11:49] LABS: % Iron Saturation 16.53 (12.00-45.00)
--- NOTE | 2021-03-26 15:16 | P.PN ---
Subjective Progress Note Date: 03/26/21 Patient is doing well today. Pain is well controlled. No acute events overnight reported by nursing staff. Objective - Vital Signs Vital signs: Vital Signs Temp 99.1 F 03/26/21 05:18 Pulse 84 03/26/21 05:18 Resp 15 03/26/21 05:18 BP 125/56 03/26/21 05:18 Pulse Ox 95 03/26/21 05:18 Intake & Output 03/25/21 03/26/21 03/26/21 18:59 06:59 18:59 Intake Total 480 Output Total 100 Balance 480 -100 Intake: Oral 480 Output: Urine 100 Other: Voiding Method External Catheter External Catheter External Catheter - Exam General: The patient is awake and alert, in no distress Eye: there is normal conjunctiva bilaterally. Neck: The neck is supple, there is no JVD. Cardiovascular: Normal S1-S2, no S3-S4, no murmurs. Respiratory: Lungs clear to auscultation bilaterally Gastrointestinal: Abdomen is soft, nontender Musculoskeletal: There is no pedal edema. Neurological:. Speech is normal. Skin: Skin is warm and dry - Labs CBC & Chem 7: 03/23/21 09:25 03/23/21 09:25 Labs: Abnormal Lab Results - Last 24 Hours (Table) 03/25/21 03/25/21 03/26/21 Range/Units 16:48 20:04 06:56 POC Glucose (mg/dL) 127 H 111 H 105 H (75-99) mg/dL Iron (50-170) ug/dL Transferrin (204.0-354.0) mg/dL 03/26/21 03/26/21 Range/Units 07:08 11:25 POC Glucose (mg/dL) 100 H (75-99) mg/dL Iron 39 L (50-170) ug/dL Transferrin 169.0 L (204.0-354.0) mg/dL Assessment and Plan Assessment: This is a 66-year-old female with complex past medical history noted below that presented to the emergency room after she sustained a fall at the [facility] transferring to her wheelchair. Patient landed on her knees. She was evaluated in the ER and admitted to the hospital for further management of her medical problems noted below. 1. Bilateral tib-fib fracture secondary to fall, seen and evaluated by orthopedic surgery. Conservative management recommended with no surgical intervention. Currently in bilateral knee immobilizer. Nonweightbearing for now as recommended. t on Rogers 5/325 every 4 hours as needed 2. End-stage renal disease on hemodialysis, nephrology consulted 3. Severe COPD on 4 L of oxygen at home, with no evidence of exacerbation 4. Type 2 diabetes, underlying IBS, chronic liver disease, 5. DVT prophylaxis with subcu heparin Today, I reviewed her medication list and lab work results. Discontinued oral hydralazine as blood pressure is borderline low Appreciate nephrology recommendation for dialysis Plan for discharge back to ECF awaiting social sciences chair to find a new accepting ECF as her old one would not accept her back secondary to her current condition and bilateral fractures
[2021-03-26 16:32] LABS: Glucose,Whole Blood 93 mg/dL (75-99)
[2021-03-26 19:52] LABS: Glucose,Whole Blood 133 mg/dL (75-99)
[2021-03-26] MEDS: PRIMIDONE 50 MG TAB PO SCH (21:21)
[2021-03-26] MEDS: MONTELUKAST 10 MG TAB PO SCH (21:22)
[2021-03-26] MEDS: ATORVASTATIN 10 MG TAB PO SCH (21:22)
[2021-03-26] MEDS: CINACALCET 30 MG TAB PO SCH (21:22)
[2021-03-27] MEDS: ALBUTEROL NEBULIZED 2.5 MG/3 ML INHALATION SCH ×4 (00:06→16:41)
[2021-03-27] MEDS: HYDROcodone/APAP 5-325MG 1 EACH TAB PO PRN ×4 (01:22→17:56)
[2021-03-27] MEDS: ALPRAZolam 0.5 MG TAB PO PRN ×2 (06:07→17:56)
[2021-03-27] MEDS: PHENYTOIN SODIUM EXTENDED 100 MG CAP PO SCH ×2 (06:07→14:56)
[2021-03-27 06:52] LABS: Glucose,Whole Blood 168 mg/dL (75-99)
[2021-03-27] MEDS: HEPARIN SODIUM,PORCINE/PF 5,000 UNIT/0.5 ML SYRINGE SQ SCH (08:20)
[2021-03-27] MEDS: PANTOPRAZOLE 40 MG TABLET PO SCH (08:20)
[2021-03-27] MEDS: FOLIC ACID 1 MG TAB PO SCH (08:20)
[2021-03-27] MEDS: ASPIRIN 81 MG PO SCH (08:20)
[2021-03-27] MEDS: FUROSEMIDE 80 MG TAB PO SCH ×2 (08:21→16:53)
[2021-03-27] MEDS: CALCIUM ACETATE 667 MG TAB PO SCH ×3 (08:21→16:52)
[2021-03-27] MEDS: FOLIC ACID-VIT B COMPLEX-VIT C 1 CAP PO SCH (08:21)
[2021-03-27] MEDS: METOPROLOL TARTRATE 25 MG TAB PO SCH (08:21)
[2021-03-27] MEDS: SYMBICORT 80-4.5 MCG INHALER INHALATION SCH ×2 (08:25→08:26)
[2021-03-27 11:42] LABS: Glucose,Whole Blood 134 mg/dL (75-99)
--- NOTE | 2021-03-27 12:22 | P.DS ---
Providers Date of admission: 03/20/21 14:08 Expected date of discharge: 03/27/21 Attending physician: Dakota Kovacs Consults: 03/20/21 14:09 Consult Physician Urgent Consulting Provider: Isidoro Huddleston Consult Reason/Comments: bilateral tiba/fibula fractures Do you want consulting provider notified?: Yes 03/20/21 14:10 Consult Physician Routine Consulting Provider: Tavo Winchester Consult Reason/Comments: dialysis. No missed runs. Do you want consulting provider notified?: Yes Primary care physician: Cj Campos MD Hospital Course: This is a 66-year-old female with complex past medical history noted below that presented to the emergency room after she [facility] a [facility] transferring to her wheelchair. Patient landed on her knees. She was evaluated in the ER and admitted to the hospital for further management of her medical problems noted below. 1. Bilateral tib-fib fracture secondary to fall, seen and evaluated by orth opedic surgery. Conservative management recommended with no surgical intervention. Currently in bilateral knee immobilizer. Nonweightbearing for now as recommended. 2. End-stage renal disease on hemodialysis, nephrology following 3. Severe COPD on 4 L of oxygen at home, with no evidence of exacerbation 4. Type 2 diabetes, underlying IBS, chronic liver disease, Patient's overall condition remained stable throughout this hospital stay. She will be discharged to [facility] in [place] where they can do dialysis at bedside secondary to difficulty transporting patient. She was seen and evaluated by me on the day of discharge. Physical exam: General: The patient is awake and alert, in no distress Eye: there is normal conjunctiva bilaterally. Neck: The neck is supple, there is no JVD. Cardiovascular: Normal S1-S2, no S3-S4, no murmurs. Respiratory: Lungs clear to auscultation bilaterally Gastrointestinal: Abdomen is soft, nontender Musculoskeletal: There is no pedal edema. Neurological:. Speech is normal. Skin: Skin is warm and dry Patient Condition at Discharge: Serious Plan - Discharge Summary New Discharge Prescriptions: Continue Phenytoin Sodium Extended [Dilantin] 100 mg PO TID@0600,1400,2200 Primidone [Mysoline] 100 mg PO HS@2000 traZODone HCL 150 mg PO HS@2000 Lidocaine-Prilocaine Cream [Emla Cream 2.5%/2.5%] 1 applic TOPICAL MOWEFR Folic Acid-Vit B Complex-Vit C [Nephrocaps] 1 cap PO DAILY@0800 Calcium Acetate 2,001 mg PO TID@0900,1300,1800 Albuterol Inhaler [Ventolin Hfa Inhaler] 2 puff INHALATION RT-Q6H@00,06,12,18 Furosemide [Lasix] 80 mg PO BID@0800,1600 Metoprolol Tartrate [Lopressor] 25 mg PO BID@08,1999 Atorvastatin [Lipitor] 10 mg PO HS@1999 tab Cinacalcet [Sensipar] 30 mg PO HS Aspirin 81 mg PO DAILY@0800 Acetaminophen [Tylenol Arthritis] 650 mg PO Q6H PRN PRN Reason: Pain Gabapentin [Neurontin] 300 mg PO MOWEFR@1999 #3 cap Calcium Acetate [PhosLo] 667 mg PO HS@1999 Fluticasone/Vilanterol [Breo Ellipta 100-25 Mcg Inhaler] 1 puff INHALATION RT-DAILY@0800 Omeprazole 20 mg PO DAILY@0800 Montelukast [Singulair] 10 mg PO HS@1999 Folic Acid 1 mg PO DAILY HYDROcodone/APAP 5-325MG [Stetson 5-325] 1 tab PO Q6HR PRN 3 Days #12 tab PRN Reason: Pain ALPRAZolam [Xanax] 0.5 mg PO Q8H PRN #9 tab PRN Reason: Anxiety Discontinued hydrALAZINE HCL [Apresoline] 25 mg PO Q8H Discharge Medication List Phenytoin Sodium Extended [Dilantin] 100 mg PO TID@0600,1400,2200 11/29/15 [History] Primidone [Mysoline] 100 mg PO HS@199907/20/18 [History] Calcium Acetate 2,001 mg PO TID@0900,1300,1800 09/06/20 [History] Calcium Acetate [PhosLo] 667 mg PO HS@199909/06/20 [History] Fluticasone/Vilanterol [Breo Ellipta 100-25 Mcg Inhaler] 1 puff INHALATION RT- DAILY@0809/06/20 [History] Folic Acid-Vit B Complex-Vit C [Nephrocaps] 1 cap PO DAILY@0800 09/06/20 [History] Lidocaine-Prilocaine Cream [Emla Cream 2.5%/2.5%] 1 applic TOPICAL MOWE09/06/20 [History] traZODone HCL 150 mg PO HS@199909/06/20 [History] Albuterol Inhaler [Ventolin Hfa Inhaler] 2 puff INHALATION RT-Q6H@00,06,12,18 09/16/20 [History] Omeprazole 20 mg PO DAILY@0800 09/16/20 [History] Furosemide [Lasix] 80 mg PO BID@0800,1600 09/22/20 [History] Metoprolol Tartrate [Lopressor] 25 mg PO BID@0800,199909/22/20 [History] Montelukast [Singulair] 10 mg PO HS@199909/22/20 [History] Atorvastatin [Lipitor] 10 mg PO HS@1999 tab 10/04/20 [Rx] Aspirin 81 mg PO DAILY@0800 02/12/21 [History] Cinacalcet [Sensipar] 30 mg PO HS 02/12/21 [History] Acetaminophen [Tylenol Arthritis] 650 mg PO Q6H PRN 03/20/21 [History] Folic Acid 1 mg PO DAILY 03/20/21 [History] ALPRAZolam [Xanax] 0.5 mg PO Q8H PRN #9 tab 03/27/21 [Rx] Gabapentin [Neurontin] 300 mg PO MOWEFR@1999 #3 cap 03/27/21 [Rx] HYDROcodone/APAP 5-325MG [Stetson 5-325] 1 tab PO Q6HR PRN 3 Days #12 tab 03/27/21 [Rx] Follow up Appointment(s)/Referral(s): [facility], [NON-STAFF] - As Needed Cj Campos MD [Primary Care Provider] - 1-2 days Isidoro Huddleston MD [Medical Doctor] - 1 Week [facility] Guardado [NON-STAFF] - As Needed (Bilateral t-scope braces) Activity/Diet/Wound Care/Special Instructions: Strict non-weight bearing bilateral lower legs. Keep T-scope knee braces on. Remove for daily skin checks. Repeat x-rays of the bilateral tibia/fibula in the office in 7-10 days. Call the office with any questions or concerns, Discharge Disposition: TRANSFER TO SNF/ECF
[2021-03-27 14:06] VITALS: BMI 39.4
--- NOTE | 2021-03-27 14:06 | PN ---
PROGRESS NOTE Patient is seen for followup for end-stage renal disease. She is scheduled for hemodialysis today. PHYSICAL EXAMINATION: Blood pressure 138/62, heart rate 81 per minute. She is afebrile. Examination of the heart S1, S2. Examination of the lungs, bilateral breath sounds are heard. Abdomen is soft, nontender. Examination of lower extremities shows trace edema bilaterally. Atrophy is noted of the muscles bilaterally. [employer] exam grossly intact. LAB: No recent labs available. ASSESSMENT: 1. End stage renal disease on hemodialysis on a Saturday, Saturday, Saturday schedule. 2. History of fall with bilateral tibial fractures, in knee immobilizer. 3. Type 2 diabetes. 4. Chronic obstructive pulmonary disease. 5. Anemia of chronic disease. PLAN: Hemodialysis today. Check labs. MMODL / IJN: [id number] /
[2021-03-27 14:09] LABS: African American GFR (CKD) 8 (>60 ml/min/1.73 sqM); Anion Gap 10 mmol/L; Blood Urea Nitrogen 96 mg/dL (7-17); Calcium 8.6 mg/dL (8.4-10.2); Carbon Dioxide 22 mmol/L (22-30); Chloride 96 mmol/L (98-107); Glucose 96 mg/dL (74-99); Non-African American GFR(CKD) 7 (>60 ml/min/1.73 sqM); Sodium 128 mmol/L (137-145)
[2021-03-27 14:36] LABS: Potassium 7.1 mmol/L (3.5-5.1)
[2021-03-27 16:38] LABS: Glucose,Whole Blood 99 mg/dL (75-99)
--- NOTE | 2021-03-27 17:14 | P.PN ---
Subjective Progress Note Date: 03/27/21 Patient is seen and examined bedside this morning. She continues to experience bilateral lower leg pain. She has her T-scope knee braces intact. No new complaints. Plans for discharge today are being arranged per nursing. Objective - Vital Signs Vital signs: Vital Signs Temp 98 F 03/27/21 13:36 Pulse 82 03/27/21 13:36 Resp 16 03/27/21 13:36 BP 112/47 03/27/21 13:36 Pulse Ox 99 03/27/21 13:36 Intake & Output 03/26/21 03/27/21 03/27/21 18:59 06:59 18:59 Weight 104.326 kg Other: Voiding Method External Catheter External Catheter External Catheter # Voids 2 1 1 - Exam On examination, patient is sitting up in the bed in no apparent distress. She appears comfortable. She is alert and orientated to person and place. On inspection of the right lower extremity, there is a T-scope knee brace in the place. There is diffuse swelling and ecchymosis of the anterior lower leg. No open wounds. Calf is soft. She has good strength and ROM of the ankle and toes. Motor and sensory function intact. Dorsalis pedis pulse +2. Foot is warm and well perfused with brisk capillary refill. On inspection of the left lower extremity, there is a T-scope knee brace in p lace. There is diffuse swelling and ecchymosis of the anterior lower leg. No open wounds. Calf is soft. She has good strength and ROM of the ankle and toes. Motor and sensory function intact. Dorsalis pedis pulse +2.Foot is warm and well perfused with brisk capillary refill. - Labs CBC & Chem 7: 03/23/21 09:25 03/27/21 12:00 Labs: Abnormal Lab Results - Last 24 Hours (Table) 03/26/21 03/27/21 03/27/21 Range/Units 19:50 06:49 11:40 Sodium (137-145) mmol/L Potassium (3.5-5.1) mmol/L Chloride (98-107) mmol/L BUN (7-17) mg/dL Creatinine (0.52-1.04) mg/dL POC Glucose (mg/dL) 133 H 168 H 134 H (75-99) mg/dL 03/27/21 Range/Units 12:00 Sodium 128 L (137-145) mmol/L Potassium 7.1 H* (3.5-5.1) mmol/L Chloride 96 L (98-107) mmol/L BUN 96 H (7-17) mg/dL Creatinine 5.76 H (0.52-1.04) mg/dL POC Glucose (mg/dL) (75-99) mg/dL Assessment and Plan Assessment: Bilateral minimally displaced proximal tibia and fibula fractures. End-stage renal disease on hemodialysis. COPD on 4 L of oxygen at home. Diabetes. Plan: - We have no plans for surgical intervention at this time. X-rays of the bilateral tibia and fibula taken on 03/23/21 were repeated today and showed no significant interval displacement. - Patient should remain non-weight bearing on the bilateral lower extremities. Bilateral T-scope knee braces should remain locked in extension. We will plan to follow patient very closely as an outpatient. - Pain management as needed, per internal medicine. - Medical management per internal medicine and nephrology. - We will follow patient peripherally. She should follow-up in the office in 7- 10 days after discharge for repeat x-rays.
[2021-03-27 22:36] VITALS: BP 140/71; PULSE 87; RESP 20; TEMP 99.1
== END 2021-03-27 18:05 | DRG 562 ==
LOC: EC 11:40 → 4SSUR 14:08
PROVIDERS: ADMIT Internal Medicine; ATTEND Internal Medicine
PROC: 5A1D70Z Performance of Urinary Filtration, Intermittent, Less than 6 Hours Per Day (ICD-10-PCS; principal; 2021-03-22)
DX: S82.102A Unspecified fracture of upper end of left tibia, initial encounter for closed fracture (principal); N18.6 End stage renal disease; J96.10 Chronic respiratory failure, unspecified whether with hypoxia or hypercapnia; S82.101A Unspecified fracture of upper end of right tibia, initial encounter for closed fracture; I12.0 Hypertensive chronic kidney disease with stage 5 chronic kidney disease or end stage renal disease; W19.XXXA Unspecified fall, initial encounter; E11.22 Type 2 diabetes mellitus with diabetic chronic kidney disease; Z99.2 Dependence on renal dialysis; E66.9 Obesity, unspecified; Z68.39 Body mass index [BMI] 39.0-39.9, adult; E78.5 Hyperlipidemia, unspecified; K58.9 Irritable bowel syndrome, unspecified; E11.21 Type 2 diabetes mellitus with diabetic nephropathy; K76.0 Fatty (change of) liver, not elsewhere classified; F32.9 Major depressive disorder, single episode, unspecified; E87.5 Hyperkalemia; F41.9 Anxiety disorder, unspecified; S82.832A Other fracture of upper and lower end of left fibula, initial encounter for closed fracture; S82.831A Other fracture of upper and lower end of right fibula, initial encounter for closed fracture; D63.1 Anemia in chronic kidney disease; G40.909 Epilepsy, unspecified, not intractable, without status epilepticus; J44.9 Chronic obstructive pulmonary disease, unspecified; Z20.822 Contact with and (suspected) exposure to COVID-19; Z99.81 Dependence on supplemental oxygen; Z90.710 Acquired absence of both cervix and uterus; Z87.891 Personal history of nicotine dependence; Z87.442 Personal history of urinary calculi; Z83.3 Family history of diabetes mellitus; Z82.49 Family history of ischemic heart disease and other diseases of the circulatory system; Z79.899 Other long term (current) drug therapy; Z79.82 Long term (current) use of aspirin; Y92.531 Health care provider office as the place of occurrence of the external cause; Z86.69 Personal history of other diseases of the nervous system and sense organs
CPT/HCPCS: 36415; 71045; 72170; 80048; 80053; 80320; 81001; 82140; 83540; 83550; 83735; 84100; 85025; 85610; 85730; 86706; 86850; 86870; 86880; 86900; 86901; 87340; 87635; 90935; 93005; 94640; 94760; 96374; 96375; 99285